=== PATIENT | female | born 1940 | race Caucasian/White ===

== ENCOUNTER 2023-01-14 11:32 | Emergency (ER) | payer MEDICARE, OTHER, SELFPAY ==
[2023-01-14] VITALS (20 sets, daily range): BP systolic 140–159; BP diastolic 58–75; PULSE 66–85; RESP 14–32; TEMP 36.8; O2SAT 91–97; BMI 27.0
--- NOTE | 2023-01-14 11:44 | ED_ITS ---
HPI - General Adult General Chief complaint: Dizziness Stated complaint: DIZZINESS Time Seen by Provider: 01/14/23 11:44 History of Present Illness HPI narrative: Patient just emergency department complaining of dizziness. Patient states that she feels like she is on a boat. She feels unsteady, dizzy. Does not feel like she is going to pass out. She states she has worsening symptoms when she moves or turns her head. She denies any headache. She has chronic sinusitis. She denies any fever, chills, cough, chest pain, shortness of breath. She denies any lower extremity edema, or cramping. The patient states she does have problems with vertigo for many years. This must be sure everything is okay. She denies any blurred vision, or diplopia. Denies any paresthesias, speech difficulties. Related Data Home Medications Medication Instructions Recorded Confirmed atorvastatin 80 mg tablet 80 mg PO DAILY 01/14/23 01/14/23 clopidogrel 75 mg tablet 75 mg PO DAILY 01/14/23 01/14/23 losartan 100 mg tablet 100 mg PO DAILY 01/14/23 01/14/23 metformin 1,000 mg tablet 1,000 mg PO BID 01/14/23 01/14/23 metoprolol tartrate 25 mg tablet 25 mg PO BID 01/14/23 01/14/23 nifedipine 60 mg tablet,extended 60 mg PO DAILY 01/14/23 01/14/23 release 24 hr oxybutynin chloride 5 mg tablet 5 mg PO BID 01/14/23 01/14/23 thyroid (pork) 60 mg tablet (BLADE BENDER FURNACE TENDER 60 mg PO BID 01/14/23 01/14/23 Thyroid) Previous Rx's Medication Instructions Recorded meclizine 50 mg tablet (Antivert) 50 mg PO TID PRN dizziness #20 tabs 01/14/23 Allergies Allergy/AdvReac Type Severity Reaction Status Date / Time No Known Drug Allergies Allergy Verified 01/14/23 11:45 Review of Systems ROS Status of ROS 10 or more systems reviewed and unremarkable except as noted in history and below Exam Narrative Exam Narrative: Nurses notes and vital signs reviewed and patient is not hypoxic. General: Nontoxic, Well-appearing and in no apparent distress. Skin: Warm, dry, no pallor noted. No Rash Head: Normocephalic, atraumatic. Neck: Supple, non-tender. Eye: Pupils are equal, round and EOMI. No scleral icterus. Ears, Nose, Mouth, and Throat: TM clear, no posterior oropharynx erythema or nasal mucosal hypertrophy, uvula is mid-line Oral mucosa is moist Cardiovascular: Regular Rate and Rhythm without murmur, gallop or rub. Respiratory: No accessory muscle use or respiratory distress. Lungs are clear to auscultation, no wheezing, rales or rhonchi Chest Wall: no tenderness Back: No midline thoracic or lumbar vertebral tenderness. No CVA tenderness Musculoskeletal: normal ROM, no calf or popliteal tenderness, no lower extremity edema/swelling GI: Abdomen is soft, non-distended. Normal bowel sounds. No tenderness to palpation. No rebound, guarding, or rigidity noted. Neurological: A&O x4. No cranial nerve dysfunction observed. No truncal ataxia. Moves all extremities. Sensation intact. Psychiatric: Cooperative and interactive. Normal mood and affect. Constitutional Vital Signs, click to edit/add: Last Vital Signs Temp 98.2 F 01/14/23 11:40 Pulse 74 01/14/23 14:10 Resp 32 H 01/14/23 14:10 BP 148/58 H 01/14/23 14:01 Pulse Ox 95 01/14/23 14:10 O2 Del Method Room Air 01/14/23 11:40 Course Vital Signs Vital signs: Vital Signs Temperature 98.2 F 01/14/23 11:40 Pulse Rate 85 01/14/23 11:40 Respiratory Rate 16 01/14/23 11:40 Blood Pressure 144/59 H 01/14/23 11:40 Pulse Oximetry 96 01/14/23 11:40 Oxygen Delivery Method Room Air 01/14/23 11:40 Temperature 98.2 F 01/14/23 11:40 Pulse Rate 74 01/14/23 14:10 Respiratory Rate 32 H 01/14/23 14:10 Blood Pressure 148/58 H 01/14/23 14:01 Pulse Oximetry 95 01/14/23 14:10 Oxygen Delivery Method Room Air 01/14/23 11:40 Medical Decision Making MDM Narrative Medical decision making narrative: Patient had IV fluids, and Antivert. This helped her symptoms. EKG Showed sinus rhythm at 71 bpm. There are no acute ischemic changes. lab And radiologic study results were discussed with patient. Did not show anything acute. Patient has chronic sinusitis, thyroid issues. 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 She will continue to try Antivert. Patient is nontoxic, stable for outpatient follow-up and treatment. At this time the patient is without objective evidence of an acute process requiring hospitalization or inpatient management. The patient has remained hemodynamically stable. No additional indication for emergent studies at this time. I answered all questions. Discussed discharge instructions including standard anticipatory guidance and what should prompt a return to the emergency department, including if they get worse are not getting better or develops any new or concerning symptoms. I've given them specific time frame in which to follow-up, and who to follow-up with. The patient demonstrates understanding. Patient is nontoxic and stable for discharge with outpatient follow-up. This note was created with the assistance of a speech recognition program. Although the intention is to generate documents that actually reflects the content of the visit, no guarantees can be provided that every mistake has been identified and corrected by editing. Lab Data Lab results reviewed: Yes I reviewed the patient's lab results Labs: Lab Results 01/14/23 Range/Units 12:15 WBC 7.8 (4.0-11.0) 10^3/uL RBC 4.03 L (4.20-5.40) 10^6/uL Hgb 13.0 (12.0-16.0) g/dL Hct 37.8 (36.0-48.0) % MCV 93.8 (81.0-99.0) fL MCH 32.3 (26.7-34.0) pg MCHC 34.4 (29.9-35.2) g/dL RDW 12.4 (11.0-15.0) % Plt Count 251 (150-450) 10^3/uL MPV 9.0 L (9.5-13.5) fL Neut % (Auto) 73.7 (43.0-75.0) % Lymph % (Auto) 16.3 L (20.5-60.0) % Larue % (Auto) 6.3 (1.7-12.0) % Eos % (Auto) 2.9 (0.9-7.0) % Baso % (Auto) 0.5 (0.2-2.0) % Neut # (Auto) 5.8 (1.4-6.5) 10^3/uL Lymph # (Auto) 1.3 (1.2-3.8) 10^3/uL Larue # (Auto) 0.5 (0.3-0.8) 10^3/uL Eos # (Auto) 0.2 (0.0-0.7) 10^3/uL Baso # (Auto) 0.0 (0.0-0.1) 10^3/uL Abs Immat Gran (auto) 0.02 (0.00-0.03) 10^3/uL Imm/Tot Granulo (auto) 0.3 (0.0-0.5) % Sodium 135 L (136-145) mmol/L Potassium 4.9 (3.5-5.1) mmol/L Chloride 102 (98-107) mmol/L Carbon Dioxide 26.5 (21.0-32.0) mmol/L Anion Gap 11.4 BUN 18.0 (7.0-18.0) mg/dL Creatinine 0.93 (0.55-1.02) mg/dL Est GFR ( Amer) >60 (>=60) Est GFR (Non-Af Amer) 58 L (>=60) BUN/Creatinine Ratio 19.4 Glucose 99 (74-106) mg/dL Calcium 9.0 (8.5-10.1) mg/dL Total Bilirubin 0.3 (0.2-1.0) mg/dL AST 11 L (15-37) U/L ALT 30 (14-59) U/L Alkaline Phosphatase 52 (46-116) U/L Troponin I High Sens 5.4 (4.0-51.3) pg/mL Total Protein 6.9 (6.4-8.2) g/dL Albumin 3.7 (3.4-5.0) g/dL Globulin 3.2 g/dL Albumin/Globulin Ratio 1.2 TSH 0.045 L (0.358-3.740) uIU/mL Discharge Plan Discharge Chief Complaint: Dizziness Clinical Impression: Dizziness Patient Disposition: Home, Self-Care Time of Disposition Decision: 13:42 Condition: Good Mode of Transportation: Private Vehicle Prescriptions / Home Meds: New meclizine [Antivert] 50 mg tablet 50 mg PO TID PRN (Reason: dizziness) Qty: 20 0RF No Action atorvastatin 80 mg tablet 80 mg PO DAILY clopidogrel 75 mg tablet 75 mg PO DAILY losartan 100 mg tablet 100 mg PO DAILY metformin 1,000 mg tablet 1,000 mg PO BID metoprolol tartrate 25 mg tablet 25 mg PO BID nifedipine 60 mg tablet extended release 24hr 60 mg PO DAILY oxybutynin chloride 5 mg tablet 5 mg PO BID thyroid (pork) [BLADE BENDER FURNACE TENDER Thyroid] 60 mg tablet 60 mg PO BID Instructions: Dizziness (ED) Stand Alone Forms: Portal Instructions Referrals: GUILLERMO RESENDIZ APRN [Physician] - 1 week Physician,Non-Staff, [Primary Care Provider] - 1 week Discharge Date/Time: 01/14/23 14:26
--- NOTE | 2023-01-14 11:58 | ECG_ITS ---
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
--- NOTE | 2023-01-14 11:58 | XR_ITS ---
[place] [id number] Patient Name: STEVEN BENTON MRN: [id number] date: 1940 Sex: F Assigned Patient Location: ER Current Patient Location: ED.MAIN Accession/Order Number: [id number] Exam Date: 01/14/2023 12:22 Report Date: 01/14/2023 12:39 At the request of: ОЛЕГ HUYNH Procedure: XR chest 1V EXAM: XR chest 1V HISTORY: Dizziness COMPARISON: 01/27/2022 TECHNIQUE: Frontal view of the chest FINDINGS: No focal consolidations or pleural effusions. Cardiomegaly. Thoracic spine spondylosis. Bony demineralization. Degenerative changes of the acromial clavicular joints bilaterally. XR/XR chest 1V IMPRESSION: No acute disease. Electronically authenticated by: SHERIDAN HONG Date: 01/14/2023 12:39
--- NOTE | 2023-01-14 11:59 | CT_ITS ---
[place] [id number] Patient Name: STEVEN BENTON MRN: [id number] date: 1940 Sex: F Assigned Patient Location: ER Current Patient Location: ER Accession/Order Number: [id number] Exam Date: 01/14/2023 12:24 Report Date: 01/14/2023 12:45 At the request of: ОЛЕГ HUYNH Procedure: CT head/brain wo con EXAMINATION: CT head/brain wo con, 01/14/2023 12:24 PM EDT HISTORY: Dizziness COMPARISON: None. TECHNIQUE: CT scan of the head was performed without IV contrast. CT dose reduction technique was used, including Automated Exposure Control. FINDINGS: BRAIN PARENCHYMA/CSF SPACES: Ventricles are normal in size for age. There is no hemorrhage, mass effect or midline shift. There are no other significant findings. PARANASAL SINUSES: Mild right maxillary sinus mucosal thickening. SKULL BASE AND CALVARIUM: Normal. EXTRACRANIAL SOFT TISSUES: Normal. CT/CT head/brain wo con IMPRESSION: 1. No acute intracranial abnormality. 2. Mild right maxillary sinus disease. Electronically authenticated by: SHERIDAN HONG Date: 01/14/2023 12:45
[2023-01-14 12:21] LABS: Basophils Percent Auto 0.5 % (0.2-2.0); Eosinophils Absolute Auto 0.2 10^3/uL (0.0-0.7); Eosinophils Percent Auto 2.9 % (0.9-7.0); Hematocrit 37.8 % (36.0-48.0); Immature Granulocytes Abs Auto 0.02 10^3/uL (0.00-0.03); Immature Granulocytes Pct Auto 0.3 % (0.0-0.5); Lymphocytes Absolute Auto 1.3 10^3/uL (1.2-3.8); Lymphocytes Percent Auto 16.3 % (20.5-60.0); Mean Corpuscular HGB Conc 34.4 g/dL (29.9-35.2); Mean Corpuscular Hemoglobin 32.3 pg (26.7-34.0); Mean Corpuscular Volume 93.8 fL (81.0-99.0); Monocytes Absolute Auto 0.5 10^3/uL (0.3-0.8); Monocytes Percent Auto 6.3 % (1.7-12.0); Neutrophils Absolute Auto 5.8 10^3/uL (1.4-6.5); Neutrophils Percent Auto 73.7 % (43.0-75.0); Platelet Count 251 10^3/uL (150-450); Red Blood Count 4.03 10^6/uL (4.20-5.40); Red Cell Distribution Width 12.4 % (11.0-15.0); White Blood Count 7.8 10^3/uL (4.0-11.0)
[2023-01-14] MEDS: MECLIZINE HCL 12.5 MG TABLET 25 MG PO (12:21)
[2023-01-14 12:46] LABS: Alanine Aminotransferase 30 U/L (14-59); Albumin Globulin Ratio 1.2; Albumin Level 3.7 g/dL (3.4-5.0); Alkaline Phosphatase 52 U/L (46-116); Anion Gap 11.4; Aspartate Amino Transferase 11 U/L (15-37); BUN Creatinine Ratio 19.4; Bilirubin Total 0.3 mg/dL (0.2-1.0); Carbon Dioxide 26.5 mmol/L (21.0-32.0); Chloride 102 mmol/L (98-107); Estimated GFR (African America >60 (>=60); Estimated GFR (Non-African Ame 58 (>=60); Globulin 3.2 g/dL; Glucose 99 mg/dL (74-106); Potassium 4.9 mmol/L (3.5-5.1); Sodium 135 mmol/L (136-145); Thyroid Stimulating Hormone 0.045 uIU/mL (0.358-3.740); Total Protein 6.9 g/dL (6.4-8.2); Troponin I High Sensitivity 5.4 pg/mL (4.0-51.3)
--- NOTE | 2023-01-14 15:36 | PC.NURSE ---
01/14/23 1536 pt called [facility] [place] cannot take otc medication due to histamine reaction. dr morales request vo to call in scopalamine patch 1mg behind ear for 3 days, as needed times 5 patches. called to pharmacy as requested. Nohemi Mendes RN
== END 2023-01-14 14:26 | disposition home or self-care (01) ==
PROVIDERS: Emergency Provider Emergency Medicine
DX: R42 Dizziness and giddiness (principal); J32.9 Chronic sinusitis, unspecified; Z79.899 Other long term (current) drug therapy; Z79.84 Long term (current) use of oral hypoglycemic drugs
CPT/HCPCS: 36415; 70450; 71045; 80053; 81003; 84443; 84484; 85025; 93005; 99285

== ENCOUNTER 2023-03-23 08:10 | Outpatient (OUT) | payer MEDICARE, OTHER, SELFPAY ==
[2023-03-23 09:39] LABS: Anion Gap 11.7; Carbon Dioxide 24.8 mmol/L (21.0-32.0); Chloride 97 mmol/L (98-107); Potassium 4.5 mmol/L (3.5-5.1); Sodium 129 mmol/L (136-145); Thyroid Stimulating Hormone 5.758 uIU/mL (0.358-3.740)
[2023-03-23 09:41] LABS: Free T4 0.43 ng/dL (0.76-1.46)
== END 2023-03-23 08:11 | disposition home or self-care (01) ==
LOC: LAB 08:14
PROVIDERS: PCP Family Medicine; Visit Provider Family Medicine
DX: E87.1 Hypo-osmolality and hyponatremia (principal); R53.82 Chronic fatigue, unspecified; E07.81 Sick-euthyroid syndrome
CPT/HCPCS: 36415; 80051; 82533; 84439; 84443

== ENCOUNTER 2023-03-30 07:56 | Outpatient (OUT) | payer MEDICARE, OTHER, SELFPAY | END 2023-03-30 07:57 | disposition home or self-care (01) | LOC: LAB 07:57 | PROVIDERS: PCP Family Medicine; Visit Provider Family Medicine | DX: R79.89 Other specified abnormal findings of blood chemistry (principal) | CPT/HCPCS: 36415; 82533 ==

== ENCOUNTER 2023-05-02 13:28 | Outpatient (OUT) | payer MEDICARE, OTHER, SELFPAY ==
[2023-05-02 15:13] LABS: Free T4 0.58 ng/dL (0.76-1.46)
[2023-05-02 15:21] LABS: Anion Gap 13.5; Carbon Dioxide 28.9 mmol/L (21.0-32.0); Chloride 94 mmol/L (98-107); Potassium 4.4 mmol/L (3.5-5.1); Sodium 132 mmol/L (136-145)
== END 2023-05-02 13:29 | disposition home or self-care (01) ==
LOC: LAB 13:33
PROVIDERS: PCP Family Medicine; Visit Provider Family Medicine
DX: E07.81 Sick-euthyroid syndrome (principal); R53.82 Chronic fatigue, unspecified; E87.1 Hypo-osmolality and hyponatremia
CPT/HCPCS: 36415; 80051; 84439; 84443

== ENCOUNTER 2023-05-31 14:06 | Outpatient (OUT) | payer MEDICARE, OTHER, SELFPAY ==
[2023-05-31 15:42] LABS: Thyroid Stimulating Hormone 10.064 uIU/mL (0.358-3.740)
== END 2023-05-31 14:07 | disposition home or self-care (01) ==
LOC: LAB 14:08
PROVIDERS: PCP Family Medicine; Visit Provider Family Medicine
DX: R53.82 Chronic fatigue, unspecified (principal); E66.9 Obesity, unspecified; E03.9 Hypothyroidism, unspecified
CPT/HCPCS: 36415; 84443

== ENCOUNTER 2023-06-27 10:42 | Outpatient (OUT) | payer MEDICARE, OTHER, SELFPAY ==
--- OUTSIDE RECORDS SUMMARY | 2023-06-20 12:13 | XMS_ITS | CCD ---
Author Name Unknown Address [facility] [facility] [address] [place] [address] Organization [facility] Care Team Providers Care Manager Shift Name Role Phone Eva Panda Unavailable MD Priyanka Puentes Primary Care Provider [phone] MD Justa Westfall Admit Provider MD Wiley Beal Attending Provider DEONTE Monzon Other Provider Unavailable DO Isaiah Cordova Other Provider [phone] MD Vik Segura Other Provider MD Moshe Hernandez Other Provider MD Yassine Dougherty Other Provider MD Anatoly Massey Other Provider FRANCOIS Mercado Other Provider MD Almita Asif Other Provider MD Dora Levine Other Provider MD Lydia Kern Other Provider MD Diony Hooks Attending Provider Priyanka Puentes Unavailable Unavailable Unavailable DR ANUM WOODY Admitting Unavailable DHAVAL ., DR MATHEW Consulting Unavailable DR ANUM WOODY Attending Unavailable HEMEBUD ., DR MATHEW Primary Care Unavailable HEMEYER ., DR MATHEW Admitting Unavailable HEMEYER ., DR MATHEW Attending Unavailable HEMEYER ., DR MATHEW Consulting Unavailable HEMEBUD ., DR MATHEW Primary Care Unavailable HEMEYER ., DR MATHEW Primary Care Unavailable PRANAY, KHANH Consulting Unavailable PRANAY, KHANH Admitting Unavailable PRANAY, KHANH Attending Unavailable HEMEYER ., DR MATHEW Primary Care Unavailable PRANAY, KHANH Attending Unavailable PRANAY, KHANH Consulting Unavailable PRANAY, KHANH Admitting Unavailable HEMEYER ., DR MAHTEW Primary Care Unavailable PRANAY, KHANH Consulting Unavailable PRANAY, KHANH Admitting Unavailable PRANAY, KHANH Attending Unavailable YAREID ., BRITTNI Consulting Unavailable HEMEYER ., DR MATHEW Primary Care Unavailable AMINA ., ОЛЕГ Admitting Unavailable AMINA ., ОЛЕГ Attending Unavailable MARILYN, NICOLE Consulting Unavailable HUNG, DR RAQUEL Reese Consulting Unavailable HOY ., DR RANDALL Admitting Unavailable HEMEYER ., DR MATHEW Primary Care Unavailable HOY ., DR RANDALL Attending Unavailable HOY ., DR RANDALL Consulting Unavailable JONA ORLANDO Consulting Unavailable HEMEYER ., DR MATHEW Admitting Unavailable HEMEYER ., DR MATHEW Attending Unavailable HEMEYER ., DR MATHEW Consulting Unavailable DIANAYER ., DR MATHEW Primary Care Unavailable MD Priyanka uPentes Primary Care Provider [phone] MD Monique Tierney Emergency Provider MD Jemal Jones Admit Provider MD Jemal Jones Attending Provider [phone] MD Chuck Chacon Attending Provider [phone] SHANTEL Dhillon Emergency Provider MD Sima Hdz Admit Provider MD Sima Hdz Attending Provider [phone] [facility] Rufus Cordon Attending Provider [phone] Dr. Priyanka Puentes Primary Care Unava ilable Yassine Dougherty Attending Unavailable Hung, Ms. Jason Sophie Batista Referring Saravai Dr. Priyanka Ralph Primary Care Unava ilable Yassine Dougherty Referring Unavailable Yassine Dougherty Attending Unavailable Dhaval, Dr. Priyanka Ramey Primary Care Unava ilable Persaud, Ms. Khanh Batista Attending Dr. Priyanka Conway Primary Care Lilliana Persaud, MsJanay Batista Referring Priyanka Conway Primary Care Unavailable Chuck Chacon Attending Jemal Anthony Admitting Unavailable Sima Hdz Admitting Unavailable Priyanka Puentes Primary Care Unavailable Rufus Ricks Attending Unavailable PRIYANKA PUENTES Attending Unavailable Allergies Allergy Classification Reported Allergen(s) Allergy Type Date of Onset Reaction(s) Facility (1 source) diphenhydrAMINE Drug Allergy anaphylaxis eSnips Other (5 sources) Ticagrelor; Translations: [Brilinta TABS] Drug Allergy Fatigue [facility] 600 DO Work Phone: (3 sources) Codeine Drug Allergy 03-12-20 23 [facility] (1 source) Penicillin Drug Allergy 01-19-20 22 [facility] (1 source) Ticagrelor Drug Allergy 01-25-20 22 [facility] (1 source) Antihistamines - Ethanolamine Drug allergy (disorder) 01-27-20 22 [facility] (2 sources) Antihistamines Allergy to substance 03-12-[address] [facility] Medications Current Medications Medication Drug Class(es) Dates Sig (Normalized) Sig (Original) amLODIPine 5 mg oral tablet (1 source) Dihydropyridine Calcium Channel Sarbjit Start: 03-14-2023 take 5 mg by mouth once daily Amlodipine Active 5 MG PO Daily March 14, 2023 12:00am aspirin 81 mg chewable tablet (14 sources) Platelet Aggregation Inhibitor, Nonsteroidal Anti-inflammatory Drug Start: 01-21-2022 take 1 tablet by mouth once daily Aspirin (Children's Aspirin) 81 mg Tablet,Chewable Active 81 MG PO Daily January 21, 2022 12:00am Aspirin EC 81 MG TBEC TAKE 1 TABLET DAILY. Quantity: 90 Refills: 3 Ordered: 24-Aug-2022 Yassine Dougherty MD Active fill when needed atorvastatin 80 mg oral tablet (14 sources) HMG-CoA Reductase Inhibitor Start: 01-21-2022 take 80 mg by mouth once daily in the evening Atorvastatin Active 80 MG PO Every evening January 21, 2022 12:00am ciprofloxacin 0.003 mg/mg ophthalmic ointment (1 source) Quinolone Antimicrobial Start: 01-01-2022 Ciloxan 0.3 % 1 applicatiion right lower eyelid Twice a day for 7 days Dec, Active clopidogrel 75 mg oral tablet (11 sources) P2Y12 Platelet Inhibitor Start: 03-05-2023 take 75 mg by mouth once daily Clopidogrel Active 75 MG PO Daily March 05, 2023 12:00am Start: 02-15-2022 take 1 tablet by angel once daily Clopidogrel Bisulfate 75 MG Oral Tablet TAKE 1 TABLET BY MOUTH DAILY Quantity: 90 Refills: 3 Ordered: 24-Aug-2022 Akin CHAVEZ, Yassine Start : 15-Feb-2022 Active Start: 02-15-2022 take 4 tablets by mo uth once daily Clopidogrel Bisulfate 75 MG Oral Tablet Take 4 tablets (300mg) on day #1 then take one tablet daily Quantity: 30 Refills: 11 Ordered: 15-Feb-2022 Lester Persaud BILLPOSTING SUPERVISOR-HAND THERAPISTKhanh Start : 15-Feb-2022 Active Lisinopril (1 source) Angiotensin Converting Enzyme Inhibitor Lisinopril Active magnesium oxide 400 mg oral tablet (3 sources) Start: 03-07-20 take 400 mg by mouth once daily Magnesium Oxide Active 400 MG PO Daily March 07, 2023 12:00am metFORMIN hydrochloride 1000 mg oral tablet (14 sources) Biguanide Start: 01-19-20 22 take 1000 mg by mouth before breakfast Metformin Active 1000 MG PO Before breakfast and supper January 18, 2022 12:00am Metformin ER & Diagnostic Test (1 source) Metformin ER & Diagnostic Test Active metoprolol tartrate 25 mg oral tablet (15 sources) beta-Adrenergic Sarbjit Start: 03-14-20 take 12.5 mg by mouth twice daily Metoprolol Tartrate Active 12.5 MG PO Twice daily March 14, 2023 12:00am Start: 01-21-2022 End: 03-14-2023 take 25 mg by mouth twice daily Metoprolol Tartrate Discontinued 25 MG PO Twice daily January 21, 2022 12:00am March 14, 2023 10:47am nitroglycerin 0.4 mg sublingual tablet (14 sources) Nitrate Vasodilator Start: 01-21-2022 Nitroglycerin Active 0.4 MG SUBLINGUAL Q5M January 21, 2022 12:00am oxybutynin chloride 5 mg oral tablet (20 sources) Cholinergic Muscarinic Antagonist Start: 01-18-2022 take 5 mg by mouth twice daily Oxybutynin Chloride Active 5 MG PO Twice daily January 18, 2022 12:00am Start: 11-11-2019 End: 01-18-2022 take 10 mg by mouth before mealtime Oxybutynin Chloride Discontinued 10 MG PO Before meals November 11, 2019 12:00am January 18, 2022 10:08pm take 1 tablet by angel th twice daily oxyBUTYnin Chloride ER 5 MG Oral Tablet Extended Release 24 Hour Take 1 tablet twice daily Quantity: 0 Refills: 0 Ordered: 15-Feb-2022 DO Active Oxybutynin Activ e Thyroid (Pork) (Upsetter Setter Up Thyroid) 60 mg tablet (4 sources) Start: 01-18-2022 take 1 tablet by mouth twice daily Thyroid (Pork) (Upsetter Setter Up Thyroid) 60 mg tablet Active 60 MG PO Twice daily January 18, 2022 12:00am thyroid (care home) 60 mg oral tablet (10 sources) Start: 01-18-2022 take 1 tablet by mouth twice daily Thyroid (Pork) (Upsetter Setter Up Thyroid) 60 mg tablet Active 60 MG PO Twice daily January 18, 2022 12:00am take 1 tablet by angel th once daily before breakfast FORGE SHOP MACHINE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 60 MG Oral Tablet TAKE 1 TABL ET BY MOUTH EVERY MORNING BEFORE BREAKFAST ON EMPTY STOMACH Quantity: 0 Refills: 0 Ordered: 15-Feb-2022 DO Active valACYclovir 1000 mg oral tablet (1 source) Herpesvirus Nucleoside Analog DNA Polymerase Inhibitor, Herpes Simplex Virus Nucleoside Analog DNA Polymerase Inhibitor, Herpes Zoster Virus Nucleoside Analog DNA Polymerase Inhibitor Start: 01-01-2022 take 1 tablet by mouth every eight hours valACYclovir HCl 1 GM 1 tablet Orally three times a day for 7 days Dec, Active Completed/Discontinued Medications Medication Drug Class(es) Dates Sig (Normalized) Sig (Original) [id number] actuat albuterol 0.09 mg/actuat metered dose inhaler (5 sources) beta2-Adrenergic Agonist Ventolin HFA 108 (90 Base) MCG/ACT Inhalation Aerosol Solution USE DIRECTED Quantity: 0 Refills: 0 Ordered: 17-Mar-2022 DO Active busPIRone hydrochloride 5 mg oral tablet (2 sources) busPIRone HCl - 5 MG Oral Tablet take one-half to 2 tabs as needed Quantity: 0 Refills: 0 Ordered: 16-Feb-2023 DO Active clindamycin 300 mg oral capsule (7 sources) Lincosamide Antibacterial Start: 11-11-2019 End: 01-18-2022 Clindamycin Hcl Discontinued November 11, 2019 12:00am January 18, 2022 10:06pm famotidine 20 mg oral tablet (7 sources) Histamine-2 Receptor Antagonist Start: 01-18-2022 End: 02-03-2022 take 20 mg by mouth once daily Famotidine Discontinued 20 MG PO Daily January 18, 2022 12:00am February 03, 2022 7:58am liothyronine sodium 0.005 mg oral tablet (7 sources) l-Triiodothyronine Start: 11-11-2019 End: 01-18-2022 Liothyronine Discontinued TABLET November 11, 2019 12:00am January 18, 2022 10:08pm losartan potassium 50 mg oral tablet (14 sources) Angiotensin 2 Receptor Sarbjit Start: 03-02-2023 take 1 tablet by mouth once daily Losartan Potassium 50 MG Oral Tablet TAKE 1 TABLET DAILY. Quantity: 90 Refills: 3 Ordered: 02-Mar-2023 Yassine Dougherty MD Start : 02-Mar-2023 Active new mg Start: 01-18-2022 End: 03-07-2023 take 0.5 dose by mouth once daily Losartan Discontinued 50 MG PO Daily January 18, 2022 12:00am March 07, 2023 9:21am RECENT CHANGE TO 1/2 DOSE PER CARDIOLOGY Start: 01-18-2022 take 100 mg by mouth once daily Losartan Active 100 MG PO Daily January 18, 2022 12:00am NIFEdipine 60 mg osmotic 24 hr extended release oral tablet (14 sources) Dihydropyridine Calcium Channel Sarbjit Start: 01-21-2022 End: 03-07-2023 take 60 mg by mouth once daily Nifedipine Discontinued 60 MG PO Daily January 21, 2022 12:00am March 07, 2023 9:21am take 1 tablet by mouth once hattie y NIFEdipine ER 60 MG Oral Tablet Extended Release 24 Hour TAKE 1 TABLET DAILY DIRECTED. Quantity: 90 Refills: 3 Ordered: 16-Feb-2023 Yassine Dougherty MD Active olmesartan medoxomil 40 mg oral tablet (7 sources) Angiotensin 2 Receptor Sarbjit Start: 11-11-2019 End: 01-18-2022 Olmesartan Discontinued TABLET November 11, 2019 12:00am January 18, 2022 10:08pm 72 hr scopolamine 0.0139 mg/hr transdermal system (2 sources) Anticholinergic Scopolamine 1 MG/3DAYS Transdermal Patch 72 Hour APPLY 1 PATCH EVERY 3 DAYS Quantity: 0 Refills: 0 Ordered: 16-Feb-2023 DO Active spironolactone 25 mg oral tablet (16 sources) Aldosterone Antagonist Start: 03-05-2023 End: 03-07-2023 take 25 mg by mouth once daily Spironolactone Discontinued 25 MG PO Daily March 05, 2023 12:00am March 07, 2023 9:21am Start: 01-21-2022 End: 02-03-2022 take 25 mg by mouth once daily Spironolactone Discontinued 25 MG PO Daily 30 30 January 21, 2022 12:00am February 03, 2022 7:59am sucralfate 1000 mg oral tablet (7 sources) Aluminum Complex Start: 01-18-2022 End: 03-05-2023 take 1 g by mouth four times daily Sucralfate Discontinued 1 GM PO Four times daily January 18, 2022 12:00am March 05, 2023 6:35pm ticagrelor 90 mg oral tablet (7 sources) Start: 01-21-2022 End: 03-05-2023 take 1 tablet by mouth twice daily Ticagrelor (Brilinta) 90 mg Tablet Discontinued 90 MG PO Twice daily 180 90 January 21, 2022 12:00am March 05, 2023 6:35pm Problems Active Problems Problem Classification Problem Date Documented Da te Episodic/Chronic Acute myocardial infarction (11 sources) Myocardial infarction; Translations: [Non-ST elevation (NSTEMI) myocardial infarction] Onset: 01-20-2022 01-18-2022 Chronic Chronic kidney disease (1 source) Chronic kidney disease, stage 2 (mild); Translations: [CHRONIC KIDNEY DISEASE STAGE 2 MILD] Onset: 08-16-2022 Chronic Conditions associated with dizziness or vertigo (9 sources) Dizziness; Translations: [Dizziness and giddiness] Onset: 03-05-2023 03-05-2023 Episodic Coronary atherosclerosis and other heart disease (20 sources) Coronary arteriosclerosis; Translations: [Atherosclerotic heart disease of [place] coronary artery without angina pectoris] Onset: 06-14-2022 02-03-2022 Chronic Coronary atherosclerosis and other heart disease (7 sources) Patient post percutaneous transluminal coronary angioplasty; Translations: [Percutaneous transluminal coronary angioplasty status] Episodic Diabetes mellitus without complication (1 source) Type 2 diabetes mellitus without complications; Translations: [TYPE 2 DM WITHOUT COMPLICATIONS] Onset: 01-20-2022 Chronic Diabetes mellitus without complication (11 sources) Prediabetes; Translations: [Prediabetes] Onset: 08-16-2022 01-18-2022 Episodic Diseases of white blood cells (1 source) Elevated white blood cell count, unspecified; Translations: [ELEVATED WHITE BLOOD CELL COUNT UNS] Onset: 02-02-2022 Chronic Disorders of lipid metabolism (8 sources) Mixed hyperlipidemia; Translations: [Mixed hyperlipidemia] Onset: 08-16-2022 Chronic Essential hypertension (18 sources) Hypertensive disorder; Translations: [Essential (primary) hypertension] Onset: 01-20-2022 11-11-2019 Chronic Fluid and electrolyte disorders (10 sources) Hypo-osmolality and hyponatremia; Translations: [Acute hyponatremia] Onset: 02-02-2022 03-05-2023 Episodic Hypertension with complications and secondary hypertension (9 sources) Hypertensive chronic kidney disease with stage 1 through stage 4 chronic kidney disease, or unspecified chronic kidney disease; Translations: [Hypertensive urgency ] Onset: 08-15-2022 Chronic Malaise and fatigue (5 sources) Chronic fatigue, unspecified; Translations: [CHRONIC FATIGUE UNSPECIFIED] Onset: 04-12-2022 Chronic Other circulatory disease (3 sources) Orthostatic hypotension; Translations: [Orthostatic hypotension] 03-07-2023 Episodic Other circulatory disease (1 source) Orthostatic hypotension; Translations: [Orthostatic hypotension] Onset: 03-05-2023 Episodic Other lower respiratory disease (7 sources) Dyspnea; Translations: [Other respiratory abnormalities] Episodic Other nutritional; endocrine; and metabolic disorders (4 sources) Obesity; Translations: [Obesity, unspecified] Chronic Other nutritional; endocrine; and metabolic disorders (3 sources) Overweight in adulthood with body mass index of 25 or more but less than 30; Translations: [Overweight] Episodic Other screening for suspected conditions (not mental disorders or infectious disease) (5 sources) Echocardiogram abnormal; Translations: [Nonspecific (abnormal) findings on radiological and other examination of other intrathoracic organs] Onset: 07-20-2022 Episodic Peripheral and visceral atherosclerosis (18 sources) Peripheral vascular disease; Translations: [Peripheral vascular disease, unspecified] Onset: 01-20-2022 01-19-2022 Chronic Screening and history of mental health and substance abuse codes (8 sources) Ex-smoker; Translations: [Personal history of tobacco use] Onset: 02-02-2022 Episodic Comment on above: nicotine lozenges; Syncope (12 sources) Near syncope; Translations: [Syncope and collapse] Onset: 02-02-2022 11-11-2019 Episodic Thyroid disorders (13 sources) Hypothyroidism; Translations: [Hypothyroidism, unspecified] Onset: 03-05-2023 01-18-2022 Chronic Thyroid disorders (5 sources) Sick-euthyroid syndrome; Translations: [SICK-EUTHYROID SYNDROME] Onset: 04-15-2022 Episodic Unclassified (1 source) CONTACT W/AND (SUSP) EXPOS COVID-19; Translations: [CONTACT W/AND (SUSP) EXPOS COVID-19] Onset: 02-02-2022 Past or Other Problems Problem Classification Problem Date Documented Da te Episodic/Chronic Noninfectious gastroenteritis (1 source) Noninfective gastroenteritis and colitis, unspecified; Translations: [NONINFECTIVE GE AND COLITIS UNS] Onset: 02-02-2022 Episodic Nonspecific chest pain (3 sources) Chest pain, unspecified; Translations: [CHEST PAIN UNSPECIFIED] Onset: 01-18-2022 Episodic Other aftercare (1 source) Other fpc (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; Translations: [OTH DRESSAGE JUDGE CURRENT DRUG THERAPY] Onset: 02-02-2022 Episodic Other aftercare (1 source) long-term (current) use of oral hypoglycemic drugs; Translations: [DRESSAGE JUDGE USE ORAL HYPOGLYCEMIC DX] Onset: 02-02-2022 Episodic Other aftercare (1 source) long-term (current) use of aspirin; Translations: [DRESSAGE JUDGE CURRENT USE OF ASPIRIN] Onset: 01-20-2022 Episodic Other circulatory disease (1 source) Hypotension, unspecified; Translations: [HYPOTENSION UNSPECIFIED] Onset: 02-02-2022 Episodic Other gastrointestinal disorders (3 sources) Diarrhea, unspecified; Translations: [DIARRHEA UNSPECIFIED] Onset: 01-27-2022 Episodic Other hematologic conditions (1 source) Other specified abnormalities of plasma proteins; Translations: [OTH SPEC ABNORM PLASMA PROTEINS] Onset: 02-02-2022 Episodic Other lower respiratory disease (1 source) Shortness of breath; Translations: [SHORTNESS OF BREATH] Onset: 02-02-2022 Episodic Residual codes; unclassified (1 source) Other specified postprocedural states; Translations: [OTH SPECIFIED POSTPROCEDURAL STATES] Onset: 02-02-2022 Episodic Viral infection (1 source) Zoster without complications Onset: 01-01-2022 Resolved: 01-01-2022 Episodic Results Test Name Value Interpretation Reference Range Facility Basic Metabolic Panelon 10-0 Anion gap [Moles/Vol] 9.8 mmol/L Normal 6.0-15.0 [facility] Comment on above: Performed By: #### B FORGE SHOP MACHINE REPAIRER, BMP, PT, PTT, HS TROP, CBC, TSH3, CK #### [facility] [address] Calcium [Mass/Vol] 8.3 mg/dL Low 8.6-10.3 [facility] Comment on above: Performed By: #### B FORGE SHOP MACHINE REPAIRER, BMP, PT, PTT, HS TROP, CBC, TSH3, CK #### [facility] [address] [place] [id number] [facility] Chloride [Moles/Vol] 101 mmol/L Normal 98-107 [facility] Comment on above: Performed By: #### B FORGE SHOP MACHINE REPAIRER, BMP, PT, PTT, HS TROP, CBC, TSH3, CK #### [facility] [address] CO2 [Moles/Vol] 23.6 mmol/L Normal 21.0-31.0 [facility] Comment on above: Performed By: #### B FORGE SHOP MACHINE REPAIRER, BMP, PT, PTT, HS TROP, CBC, TSH3, CK #### [address] Creatinine [Mass/Vol] 0.70 mg/dL Normal 0.60-1.20 [facility] Comment on above: Performed By: #### B FORGE SHOP MACHINE REPAIRER, BMP, PT, PTT, HS TROP, CBC, TSH3, CK #### [address] Creatinine Clr Calc Pharmacy 48.88 [facility] Comment on above: Performed By: #### B FORGE SHOP MACHINE REPAIRER, BMP, PT, PTT, HS TROP, CBC, TSH3, CK #### [address] GFR/1.73 sq M.predicted MDRD (S/P/Bld) [Vol rate/Area] mL/min/{1.73_m2} [facility] Comment on above: Performed By: #### B FORGE SHOP MACHINE REPAIRER, BMP, PT, PTT, HS TROP, CBC, TSH3, CK #### [address] Glucose [Mass/Vol] 84 mg/dL Normal 70-100 [facility] Comment on above: Result Comment: [facility] Glucose Reference Range is dependent on time and content of last meal. Glucose of more than 200 mg/dL in a nonstressed, ambulatory subject supports the diagnosis of Diabetes Mellitus. ADA recommended reference range Performed By: #### B FORGE SHOP MACHINE REPAIRER, BMP, PT, PTT, HS TROP, CBC, TSH3, CK #### [address] Potassium [Moles/Vol] 4.4 mmol/L Normal 3.5-5.1 [facility] Comment on above: Performed By: #### B FORGE SHOP MACHINE REPAIRER, BMP, PT, PTT, HS TROP, CBC, TSH3, CK #### [address] Sodium [Moles/Vol] 130 mmol/L Low 136-145 [facility] Comment on above: Performed By: #### B FORGE SHOP MACHINE REPAIRER, BMP, PT, PTT, HS TROP, CBC, TSH3, CK #### [facility] [address] [place] [address] [place] Urea nitrogen [Mass/Vol] 8 mg/dL Normal 7-25 [facility] Comment on above: Performed By: #### B FORGE SHOP MACHINE REPAIRER, BMP, PT, PTT, HS TROP, CBC, TSH3, CK #### [facility] [address] [place] [address] [place] Calcium [Mass/volume] in Ser um or PlasmaOrdered By: Rufus Ricks on 03-14-2023 Calcium [Mass/Vol] 8.3 mg/dL 8.6-10.3 [facility] Carbon dioxide, total [Moles /volume] in Serum or PlasmaOrdered By: Rufus Ricks on 03-14-2023 CO2 [Moles/Vol] 23.6 mmol/L 21.0-31.0 [facility] Chloride [Moles/volume] in S yamilex or PlasmaOrdered By: Rufus Ricks on 03-14-2023 Chloride [Moles/Vol] 101 mmol/L 98-107 [facility] Creatinine [Mass/volume] in Serum or PlasmaOrdered By: Rufus Ricks on 03-14-2023 Creatinine [Mass/Vol] 0.70 mg/dL 0.60-1.20 [facility] Free T4 (Free Thyroxine)on Free T4 [Mass/Vol] 0.72 ng/dL Normal 0.61-1.12 [facility] Comment on above: Performed By: #### B FORGE SHOP MACHINE REPAIRER, BMP, PT, PTT, HS TROP, CBC, TSH3, CK #### [facility] [address] [place] [address] [place] Glucose [Mass/volume] in Ser um or PlasmaOrdered By: Rufus Ricks on 03-14-2023 Glucose [Mass/Vol] 84 mg/dL 70-100 [facility] Comment on above: ADA recommended refe rence rangeRandom Glucose Reference Range is dependent on time and content of last meal. Glucose of more than 200 mg/dL in a nonstressed, ambulatory subject supports the diagnosis of Diabetes Mellitus. No Panel InformationOrdered By: Rufus Ricks on 03-14-2023 Estimated GFR (CKD-EPI) > 60.0 mL/Min [facility] Creatinine Clearance (Chem 48.88 [facility] Potassium [Moles/volume] in Serum or PlasmaOrdered By: [facility] on 03-14-2023 Potassium [Moles/Vol] 4.4 mmol/L 3.5-5.1 [facility] Serum or plasma anion gap de terminationOrdered By: [facility] on 03-14-2023 Anion gap [Moles/Vol] 9.8 mmol/L 6.0-15.0 [facility] Sodium [Moles/volume] in Ser um or PlasmaOrdered By: [facility] on 03-14-2023 Sodium [Moles/Vol] 130 mmol/L 136-145 [facility] Thyroid Stimulating Hormoneo n 03-14-2023 TSH Qn 0.04 m[IU]/L Low 0.45-5.33 [facility] Comment on above: Result Comment: PERF ORMED BY: [place] [address] PATHOLOGIST ROD DRAWER RAQUEL LOPEZ M.D. Performed By: #### B FORGE SHOP MACHINE REPAIRER, BMP, PT, PTT, HS TROP, CBC, TSH3, CK #### [address] Thyrotropin [Units/volume] i n Serum or PlasmaOrdered By: [facility] on 03-14-2023 TSH Qn 0.04 m[IU]/L 0.45-5.33 [facility] Thyroxine (T4) free [Mass/vo lume] in Serum or PlasmaOrdered By: [facility] on 03-14-2023 Free T4 [Mass/Vol] 0.72 ng/dL 0.61-1.12 [facility] Triiodothyronine (T3) Freeon 03-14-2023 Triiodothyronine (T3) Free 2.85 pg/mL Normal 2.50-3.90 [facility] Comment on above: Result Comment: PERF ORMED BY: [place] [address] PATHOLOGIST ROD DRAWER RAQUEL LOPEZ M.D. Performed By: #### B FORGE SHOP MACHINE REPAIRER, BMP, PT, PTT, HS TROP, CBC, TSH3, CK #### [facility] [address] Triiodothyronine (T3) Free [ Mass/volume] in Serum or PlasmaOrdered By: Rufus ClemensRicks on 03-14-2023 Free T3 [Mass/Vol] 2.85 pg/mL 2.50-3.90 [facility] Urea nitrogen [Mass/volume] in Serum or PlasmaOrdered By: Rufus ClemensRicks on 03-14-2023 Urea nitrogen [Mass/Vol] 8 mg/dL 01-03 [facility] Basic Metabolic Panelon Anion gap [Moles/Vol] 13.4 mmol/L Normal 6.0-15.0 [facility] Comment on above: Performed By: #### B FORGE SHOP MACHINE REPAIRER, BMP, PT, PTT, HS TROP, CBC, TSH3, CK #### [facility] [address] Calcium [Mass/Vol] 9.1 mg/dL Normal 8.6-10.3 [facility] Comment on above: Performed By: #### B FORGE SHOP MACHINE REPAIRER, BMP, PT, PTT, HS TROP, CBC, TSH3, CK #### [facility] [address] [place] [address] [place] Chloride [Moles/Vol] 93 mmol/L Low 98-107 [facility] Comment on above: Performed By: #### B [employer] MACHINE REPAIRER, BMP, PT, PTT, HS TROP, CBC, TSH3, CK #### [facility] [address] [place] [address] [place] CO2 [Moles/Vol] 25.0 mmol/L Normal 21.0-31.0 [facility] Comment on above: Performed By: #### B [employer] MACHINE REPAIRER, BMP, PT, PTT, HS TROP, CBC, TSH3, CK #### [facility] [address] [place] [address] [place] Creatinine [Mass/Vol] 0.88 mg/dL Normal 0.60-1.20 [facility] Comment on above: Performed By: #### B [employer] MACHINE REPAIRER, BMP, PT, PTT, HS TROP, CBC, TSH3, CK #### [address] Creatinine Clr Calc Pharmacy 44.44 [facility] Comment on above: Result Comment: PERF ORMED BY: [place] [address] PATHOLOGIST ROD DRAWER RAQUEL LOPEZ M.D. Performed By: #### B [employer] MACHINE REPAIRER, BMP, PT, PTT, HS TROP, CBC, TSH3, CK #### [address] GFR/1.73 sq M.predicted MDRD (S/P/Bld) [Vol rate/Area] mL/min/{1.73_m2} [facility] Comment on above: Performed By: #### B [employer] MACHINE REPAIRER, BMP, PT, PTT, HS TROP, CBC, TSH3, CK #### [address] Glucose [Mass/Vol] 97 mg/dL Normal 70-100 [facility] Comment on above: Result Comment: [facility] Glucose Reference Range is dependent on time and content of last meal. Glucose of more than 200 mg/dL in a nonstressed, ambulatory subject supports the diagnosis of Diabetes Mellitus. ADA recommended reference range Performed By: #### B FORGE SHOP MACHINE REPAIRER, BMP, PT, PTT, HS TROP, CBC, TSH3, CK #### [address] Potassium [Moles/Vol] 4.4 mmol/L Normal 3.5-5.1 [facility] Comment on above: Performed By: #### B [employer] MACHINE REPAIRER, BMP, PT, PTT, HS TROP, CBC, TSH3, CK #### [facility] [address] Sodium [Moles/Vol] 127 mmol/L Low 136-145 [facility] Comment on above: Performed By: #### B [employer] MACHINE REPAIRER, BMP, PT, PTT, HS TROP, CBC, TSH3, CK #### [facility] [address] [place] [address] [place] Urea nitrogen [Mass/Vol] 9 mg/dL Normal 7-25 [facility] Comment on above: Performed By: #### B [employer] MACHINE REPAIRER, BMP, PT, PTT, HS TROP, CBC, TSH3, CK #### [facility] [address] [place] [id number] [facility] Activated partial thrombopla stin time (aPTT) in platelet poor plasma by coagulation aOrdered By: Hunter Dhillon on 03-12-2023 aPTT Coag (PPP) [Time] 26.1 s 25.1-36.5 [facility] Comment on above: A hematocrit value g reater than 55% may lead to inaccurate results in coagulation testing. Patients having hematocrit values >55% require a special collection tube for coagulation studies. Please contact the laboratory at [phone] for redraw instructions. Alanine aminotransferase [En zymatic activity/volume] in Serum or PlasmaOrdered By: Hunter Dhillon on 03-12-2023 ALT [Catalytic activity/Vol] 14 U/L 7-52 [facility] Albumin [Mass/volume] in Ser um or Plasma by Bromocresol green (BCG) dye binding methoOrdered By: Hunter Dhillon on 03-12-2023 Albumin BCG dye [Mass/Vol] 4.1 g/dL 3.5-5.7 [facility] Alkaline phosphatase [Enzyma tic activity/volume] in Serum or PlasmaOrdered By: Hunter Dhillon on 03-12-2023 ALP [Catalytic activity/Vol] 40 U/L 34-104 [facility] Aspartate aminotransferase [ Enzymatic activity/volume] in Serum or PlasmaOrdered By: Hunter Dhillon on 03-12-2023 AST [Catalytic activity/Vol] 15 U/L 13-39 [facility] Automated erythrocytes count in urine sediment (number/area)Ordered By: Hunter Dhillon on 03-12-2023 RBC Auto (Urine sed) [#/Area] None seen [HPF] 0-4 [facility] Automated leukocytes count i n urine sediment (number/area)Ordered By: Hunter Dhillon on 03-12-2023 WBC Auto (Urine sed) [#/Area] 5-9 [HPF] 0-4 [facility] B-Type Natriuretic Peptideon 03-12-2023 Natriuretic peptide B (Bld) [Mass/Vol] 83.0 pg/mL Normal 5-100 [facility] Comment on above: Result Comment: PERF ORMED BY: [place] [address] PATHOLOGIST ROD DRAWER RAQUEL LOPEZ M.D. Performed By: #### B [employer] MACHINE REPAIRER, BMP, PT, PTT, HS TROP, CBC, TSH3, CK #### [address] Basic Metabolic Panelon Anion gap [Moles/Vol] 13.3 mmol/L Normal 6.0-15.0 [facility] Comment on above: Performed By: #### B [employer] MACHINE REPAIRER, BMP, PT, PTT, HS TROP, CBC, TSH3, CK #### [address] Calcium [Mass/Vol] 9.2 mg/dL Normal 8.6-10.3 [facility] Comment on above: Performed By: #### B [employer] MACHINE REPAIRER, BMP, PT, PTT, HS TROP, CBC, TSH3, CK #### [address] Chloride [Moles/Vol] 98 mmol/L Normal 98-107 [facility] Comment on above: Performed By: #### B [employer] MACHINE REPAIRER, BMP, PT, PTT, HS TROP, CBC, TSH3, CK #### [address] CO2 [Moles/Vol] 21.2 mmol/L Normal 21.0-31.0 [facility] Comment on above: Performed By: #### B FOR[employer] SH[employer] MACHINE REPAIRER, BMP, PT, PTT, HS TROP, CBC, TSH3, CK #### [address] Creatinine [Mass/Vol] 0.92 mg/dL Normal 0.60-1.20 [facility] Comment on above: Performed By: #### B [employer] MACHINE REPAIRER, BMP, PT, PTT, HS TROP, CBC, TSH3, CK #### [facility] [address] Creatinine Clr Calc Pharmacy 41.99 [facility] Comment on above: Performed By: #### B [employer] MACHINE REPAIRER, BMP, PT, PTT, HS TROP, CBC, TSH3, CK #### [facility] [address] GFR/1.73 sq M.predicted MDRD (S/P/Bld) [Vol rate/Area] mL/min/{1.73_m2} [facility] Comment on above: Performed By: #### B [employer] MACHINE REPAIRER, BMP, PT, PTT, HS TROP, CBC, TSH3, CK #### [facility] [address] Glucose [Mass/Vol] 87 mg/dL Normal 70-100 [facility] Comment on above: Result Comment: [facility] Glucose Reference Range is dependent on time and content of last meal. Glucose of more than 200 mg/dL in a nonstressed, ambulatory subject supports the diagnosis of Diabetes Mellitus. ADA recommended reference range Performed By: #### B FOR[employer] SH[employer] MACHINE REPAIRER, BMP, PT, PTT, HS TROP, CBC, TSH3, CK #### [address] Potassium [Moles/Vol] 4.5 mmol/L Normal 3.5-5.1 [facility] Comment on above: Performed By: #### B FOR[employer] MACHINE REPAIRER, BMP, PT, PTT, HS TROP, CBC, TSH3, CK #### [facility] [address] Sodium [Moles/Vol] 128 mmol/L Low 136-145 [facility] Comment on above: Performed By: #### B FOR[employer] SH[employer] MACHINE REPAIRER, BMP, PT, PTT, HS TROP, CBC, TSH3, CK #### [address] Urea nitrogen [Mass/Vol] 11 mg/dL Normal 7-25 [facility] Comment on above: Performed By: #### B FOR[employer] SH[employer] MACHINE REPAIRER, BMP, PT, PTT, HS TROP, CBC, TSH3, CK #### [facility] [address] [place] [id number] [facility] Basophils Auto (Bld) [#/Vol] Ordered By: Hunter Dhillon on 03-12-2023 Basophils (Bld) [#/Vol] 0.0 10*3/uL 0.0-0.2 [facility] Basophils/100 WBC Auto (Bld) Ordered By: Hunter Dhillon on 03-12-2023 Basophils/100 WBC (Bld) 0.4 % . [facility] Bilirubin Auto test strip Ql (U)Ordered By: Hunter Dhillon on 03-12-2023 Bilirubin Ql (U) Negative Negative [facility] Bilirubin.direct [Mass/volum e] in Serum or PlasmaOrdered By: Hunter Dhillon on 03-12-2023 Bilirubin.direct [Mass/Vol] 0.10 mg/dL 0.03-0.18 [facility] Bilirubin.total [Mass/volume ] in Serum or PlasmaOrdered By: Hunter Dhillon on 03-12-2023 Bilirubin [Mass/Vol] 0.4 mg/dL 0.3-1.0 [facility] Calcium [Mass/volume] in Ser um or PlasmaOrdered By: Hunter Dhillon on 03-12-2023 Calcium [Mass/Vol] 9.2 mg/dL 8.6-10.3 [facility] Carbon dioxide, total [Moles /volume] in Serum or PlasmaOrdered By: Hunter Dhillon on 03-12-2023 CO2 [Moles/Vol] 21.2 mmol/L 21.0-31.0 [facility] Chloride [Moles/volume] in S yamilex or PlasmaOrdered By: Hunter Dhillon on 03-12-2023 Chloride [Moles/Vol] 98 mmol/L 98-107 [facility] Complete Blood Count Auto Di ffon 03-12-2023 Basophils (Bld) [#/Vol] 0.0 10*3/uL Normal 0.0-0.2 [facility] Comment on above: Result Comment: PERF ORMED BY: [facility] [address] [place] [address] PATHOLOGIST ROD DRAWER JIANLAN SUN M.D. Performed By: #### B FORGE SH[employer] MACHINE REPAIRER, BMP, PT, PTT, HS TROP, CBC, TSH3, CK #### [address] Basophils/100 WBC (Bld) 0.4 % Normal . [facility] Comment on above: Performed By: #### B FORGE SH[employer] MACHINE REPAIRER, BMP, PT, PTT, HS TROP, CBC, TSH3, CK #### [address] Eosinophils (Bld) [#/Vol] 0.2 10*3/uL Normal 0.0-0.45 [facility] Comment on above: Performed By: #### B FORGE SHOP MACHINE REPAIRER, BMP, PT, PTT, HS TROP, CBC, TSH3, CK #### [address] Eosinophils/100 WBC (Bld) 2.0 % Normal . [facility] Comment on above: Performed By: #### B FORGE SHOP MACHINE REPAIRER, BMP, PT, PTT, HS TROP, CBC, TSH3, CK #### [address] Erythrocyte distribution width (RBC) [Ratio] 12.6 % Normal 11.9-15.3 [facility] Comment on above: Performed By: #### B FORGE SHOP MACHINE REPAIRER, BMP, PT, PTT, HS TROP, CBC, TSH3, CK #### [address] Hematocrit (Bld) [Volume fraction] 35.5 % Normal 34.0-46.4 [facility] Comment on above: Performed By: #### B FORGE SHOP MACHINE REPAIRER, BMP, PT, PTT, HS TROP, CBC, TSH3, CK #### [address] Hemoglobin (Bld) [Mass/Vol] 12.4 g/dL Normal 11.8-15.4 [facility] Comment on above: Performed By: #### B FORGE SHOP MACHINE REPAIRER, BMP, PT, PTT, HS TROP, CBC, TSH3, CK #### [address] Lymphocytes (Bld) [#/Vol] 1.2 10*3/uL Normal 1.00-4.8 [facility] Comment on above: Performed By: #### B FORGE SHOP MACHINE REPAIRER, BMP, PT, PTT, HS TROP, CBC, TSH3, CK #### [address] Lymphocytes/100 WBC (Bld) 13.2 % Normal . [facility] Comment on above: Performed By: #### B FORGE SHOP MACHINE REPAIRER, BMP, PT, PTT, HS TROP, CBC, TSH3, CK #### [address] MCH (RBC) [Entitic mass] 31.9 pg Normal 24.7-34.3 [facility] Comment on above: Performed By: #### B FORGE SHOP MACHINE REPAIRER, BMP, PT, PTT, HS TROP, CBC, TSH3, CK #### [address] MCV (RBC) [Entitic vol] 91.8 fL Normal 80-100 [facility] Comment on above: Performed By: #### B FORGE SHOP MACHINE REPAIRER, BMP, PT, PTT, HS TROP, CBC, TSH3, CK #### [address] Mean Corpuscular HGB Conc 34.7 g/dL Normal 32.0-35.0 [facility] Comment on above: Performed By: #### B FORGE SHOP MACHINE REPAIRER, BMP, PT, PTT, HS TROP, CBC, TSH3, CK #### [address] Monocytes (Bld) [#/Vol] 0.5 10*3/uL Normal 0.0-0.8 [facility] Comment on above: Performed By: #### B FORGE SH[employer] MACHINE REPAIRER, BMP, PT, PTT, HS TROP, CBC, TSH3, CK #### [address] Monocytes/100 WBC (Bld) 17.50 % Normal 0.00-20.00 [facility] Comment on above: Performed By: #### B FORGE SHOP MACHINE REPAIRER, BMP, PT, PTT, HS TROP, CBC, TSH3, CK #### [facility] [address] Monocytes/100 WBC (Bld) 5.1 % Normal . [facility] Comment on above: Performed By: #### B FORGE SHOP MACHINE REPAIRER, BMP, PT, PTT, HS TROP, CBC, TSH3, CK #### [facility] [address] Neutrophils (Bld) [#/Vol] 7.0 10*3/uL Normal 1.8-7.7 [facility] Comment on above: Performed By: #### B FORGE SHOP MACHINE REPAIRER, BMP, PT, PTT, HS TROP, CBC, TSH3, CK #### [address] Neutrophils/100 WBC (Bld) 79.3 % Normal . [facility] Comment on above: Performed By: #### B FORGE SHOP MACHINE REPAIRER, BMP, PT, PTT, HS TROP, CBC, TSH3, CK #### [address] NRBC% 0.0 /100{WBC} Normal 0-0.5 [facility] Comment on above: Performed By: #### B FORGE SHOP MACHINE REPAIRER, BMP, PT, PTT, HS TROP, CBC, TSH3, CK #### [address] Platelet mean volume (Bld) [Entitic vol] 7.2 fL Normal 6.3-10.7 [facility] Comment on above: Performed By: #### B FORGE SHOP MACHINE REPAIRER, BMP, PT, PTT, HS TROP, CBC, TSH3, CK #### [address] Platelets (Bld) [#/Vol] 237 10*3/uL Normal 150-450 [facility] Comment on above: Performed By: #### B FORGE SHOP MACHINE REPAIRER, BMP, PT, PTT, HS TROP, CBC, TSH3, CK #### [address] RBC (Bld) [#/Vol] 3.87 10*6/uL Normal 3.60-5.00 [facility] Comment on above: Performed By: #### B FORGE SHOP MACHINE REPAIRER, BMP, PT, PTT, HS TROP, CBC, TSH3, CK #### [address] WBC (Bld) [#/Vol] 8.9 10*3/uL Normal 3.8-11.6 [facility] Comment on above: Performed By: #### B FORGE SHOP MACHINE REPAIRER, BMP, PT, PTT, HS TROP, CBC, TSH3, CK #### [address] Creatine Kinaseon 03-12-2023 CK [Catalytic activity/Vol] 20 U/L Low [facility] Comment on above: Performed By: #### B FORGE SHOP MACHINE REPAIRER, BMP, PT, PTT, HS TROP, CBC, TSH3, CK #### [address] Creatine kinase [Enzymatic a ctivity/volume] in Serum or PlasmaOrdered By: Hunter Dhillon on 03-12-2023 CK [Catalytic activity/Vol] 20 U/L [facility] Creatinine [Mass/volume] in Serum or PlasmaOrdered By: Hunter Dhillon on 03-12-2023 Creatinine [Mass/Vol] 0.92 mg/dL 0.60-1.20 [facility] Dipstick and Microscopicon 1 Appearance (U) Slightly Cloudy Critically abnormal Clear [facility] Comment on above: Order Comment: Name Collection Type:: Clean-Voided Midstream Performed By: #### A DDONUAPLUS #### [address] Bacteria,Urine 1+ High None Seen [facility] Comment on above: Order Comment: Name Collection Type:: Clean-Voided Midstream Result Comment: PERF ORMED BY: [place] [address] PATHOLOGIST ROD DRAWER RAQUEL LOPEZ M.D. Performed By: #### A DDONUAPLUS #### [address] Bilirubin,Urine Negative Normal Negative [facility] Comment on above: Order Comment: Name Collection Type:: Clean-Voided Midstream Performed By: #### A DDONUAPLUS #### [place] [address] [place] Color (U) Yellow Normal Yellow [facility] Comment on above: Order Comment: Name Collection Type:: Clean-Voided Midstream Performed By: #### A DDONUAPLUS #### [place] [address] [place] Glucose Ql (U) Normal Normal Normal [facility] Comment on above: Order Comment: Name Collection Type:: Clean-Voided Midstream Performed By: #### A DDONUAPLUS #### [address] Ketones Ql (U) Negative Normal Negative [facility] Comment on above: Order Comment: Name Collection Type:: Clean-Voided Midstream Performed By: #### A DDONUAPLUS #### [address] Leukocyte esterase Test strip Ql (U) 3+ High Negative [facility] Comment on above: Order Comment: Name Collection Type:: Clean-Voided Midstream Performed By: #### A DDONUAPLUS #### [place] [address] [place] Nitrite,Urine Negative Normal Negative [facility] Comment on above: Order Comment: Name Collection Type:: Clean-Voided Midstream Performed By: #### A DDONUAPLUS #### [place] [address] [place] Occult Blood,Urine Negative Normal Negative [facility] Comment on above: Order Comment: Name Collection Type:: Clean-Voided Midstream Result Comment: PERF ORMED BY: [place] [address] PATHOLOGIST ROD DRAWER RAQUEL LOPEZ M.D. Performed By: #### A DDONUAPLUS #### [place] [address] [place] pH (U) 7.5 [pH] Normal 5.0-9.0 [facility] Comment on above: Order Comment: Name Collection Type:: Clean-Voided Midstream Performed By: #### A DDONUAPLUS #### [place] [address] [place] Protein,Urine Negative Normal Negative [facility] Comment on above: Order Comment: Name Collection Type:: Clean-Voided Midstream Performed By: #### A DDONUAPLUS #### [address] RBC,Urine None Seen Normal 0-4 [facility] Comment on above: Order Comment: Name Collection Type:: Clean-Voided Midstream Performed By: #### A DDONUAPLUS #### [address] Specificy [place],Urine 1.010 Normal 1.001-1.03 0 [facility] Comment on above: Order Comment: Name Collection Type:: Clean-Voided Midstream Performed By: #### A DDONUAPLUS #### [address] Squamous Epithelial Cell,Urine 5-9 High 0-2 [facility] Comment on above: Order Comment: Name Collection Type:: Clean-Voided Midstream Performed By: #### A DDONUAPLUS #### [place] [address] [place] Urobilinogen,Urine Normal Normal Normal [facility] Comment on above: Order Comment: Name Collection Type:: Clean-Voided Midstream Performed By: #### A DDONUAPLUS #### [facility] [address] [place] [address] [place] WBC,Urine 5-9 High 0-4 [facility] Comment on above: Order Comment: Name Collection Type:: Clean-Voided Midstream Performed By: #### A DDONUAPLUS #### [place] [address] [place] ECG 12 lead ECGon 03-12-2023 ECG 12 lead ECG [facility] [place] [address] [place] [address] Electrocardiograph Report Signed Patient: Steven Harding MR#: [id number] 1 : 1940 Acct:[id number] Age/Sex: 83 / F ADM Date: 03/12/23 Loc: Room: [address] [place] [address] Type: ADM INOo Attending Dr: Sima Hdz MD Ordering Provider: Hunter Dhillon PA-C Date of Service: 03/12/2307/04/1433 ECG/ECG 12 lead ECG: CHEST PAIN Copies to: Test Reason : Blood Pressure : / mmHG Vent. Rate : 070 BPM Atrial Rate : 070 BPM P-R Int : 152 ms QRS Dur : 082 ms QT Int : 392 ms P-R-T Axes : 081 -41 082 degrees QTc Int : 423 ms Normal sinus rhythm Left axis deviation Abnormal ECG When compared with ECG of 05-MAR-2023 18:02, premature atrial complexes are no longer present Confirmed by Zane Michael DO ([id number]) on 03/13/2023 8:21:27 AM Referred By: Electronically Signed By:Zane Michael DO Transcribed By: MUS Signed By Zane Mcihael DO 3 0821 Normal [facility] Eosinophils Auto (Bld) [#/Vo l]Ordered By: Hunter Dhillon on 03-12-2023 Eosinophils (Bld) [#/Vol] 0.2 10*3/uL 0.0-0.45 [facility] Eosinophils/100 WBC Auto (Bl d)Ordered By: Hunter Dhillon on 03-12-2023 Eosinophils/100 WBC (Bld) 2.0 % . [facility] Erythrocyte distribution wid th Auto (RBC) [Ratio]Ordered By: Hunter Dhillon on 03-12-2023 Erythrocyte distribution width (RBC) [Ratio] 12.6 % 11.9-15.3 [facility] Globulin Calc (S) [Mass/Vol] Ordered By: Hunter Dhillon on 03-12-2023 Globulin (S) [Mass/Vol] 2.2 g/dL [facility] Glucose [Mass/volume] in Ser um or PlasmaOrdered By: Hunter Dhillon on 03-12-2023 Glucose [Mass/Vol] 87 mg/dL 70-100 [facility] Comment on above: ADA recommended refe rence rangeRandom Glucose Reference Range is dependent on time and content of last meal. Glucose of more than 200 mg/dL in a nonstressed, ambulatory subject supports the diagnosis of Diabetes Mellitus. Hematocrit Auto (Bld) [Volum e fraction]Ordered By: Hunter Dhillon on 03-12-2023 Hematocrit (Bld) [Volume fraction] 35.5 % 34.0-46.4 [facility] Hemoglobin [Mass/volume] in BloodOrdered By: Hunter Dhillon on 03-12-2023 Hemoglobin (Bld) [Mass/Vol] 12.4 g/dL 11.8-15.4 [facility] Hepatic Panelon 03-12-2023 Albumin [Mass/Vol] 4.1 g/dL Normal 3.5-5.7 [facility] Comment on above: Performed By: #### B FORGE SHOP MACHINE REPAIRER, BMP, PT, PTT, HS TROP, CBC, TSH3, CK #### [facility] [address] Albumin/Globulin [Mass ratio] 1.9 {ratio} Normal [facility] Comment on above: Performed By: #### B FORGE SHOP MACHINE REPAIRER, BMP, PT, PTT, HS TROP, CBC, TSH3, CK #### [facility] [address] ALP [Catalytic activity/Vol] 40 U/L Normal 34-104 [facility] Comment on above: Performed By: #### B FORGE SHOP MACHINE REPAIRER, BMP, PT, PTT, HS TROP, CBC, TSH3, CK #### [facility] [address] [place] [address] [place] ALT [Catalytic activity/Vol] 14 U/L Normal 7-52 [facility] Comment on above: Performed By: #### B FORGE SHOP MACHINE REPAIRER, BMP, PT, PTT, HS TROP, CBC, TSH3, CK #### [facility] [address] [place] [address] [place] AST [Catalytic activity/Vol] 15 U/L Normal 13-39 [facility] Comment on above: Performed By: #### B FORGE SHOP MACHINE REPAIRER, BMP, PT, PTT, HS TROP, CBC, TSH3, CK #### [facility] [address] Bilirubin [Mass/Vol] 0.4 mg/dL Normal 0.3-1.0 [facility] Comment on above: Performed By: #### B FORGE SHOP MACHINE REPAIRER, BMP, PT, PTT, HS TROP, CBC, TSH3, CK #### [facility] [address] Bilirubin,Indirect 0.3 mg/dL Normal [facility] Comment on above: Performed By: #### B FORGE SHOP MACHINE REPAIRER, BMP, PT, PTT, HS TROP, CBC, TSH3, CK #### [facility] [address] Bilirubin.indirect [Mass/Vol] 0.10 mg/dL Normal 0.03-0.18 [facility] Comment on above: Performed By: #### B FORGE SHOP MACHINE REPAIRER, BMP, PT, PTT, HS TROP, CBC, TSH3, CK #### [address] Globulin (S) [Mass/Vol] 2.2 g/dL Normal [facility] Comment on above: Performed By: #### B FORGE SHOP MACHINE REPAIRER, BMP, PT, PTT, HS TROP, CBC, TSH3, CK #### [address] Protein [Mass/Vol] 6.3 g/dL Low 6.4-8.9 [facility] Comment on above: Performed By: #### B FORGE SHOP MACHINE REPAIRER, BMP, PT, PTT, HS TROP, CBC, TSH3, CK #### [address] INR in Platelet poor plasma by Coagulation assayOrdered By: Hunter Dhillon on 03-12-2023 INR Coag (PPP) [Relative time] 0.9 {INR} [facility] Comment on above: INR Therapeutic Rang e A) Pre- and Peroperative OAT started two weeks before surgery. NOT HIP SURGERY: 1.5 - 2.5 HIP SURGERY: 2 - 3B) Primary and secondary prevention of venous THROMBOSIS: 2 - 3C) Active venous thrombosis, pulmonary embolismand prevention of recurrent venous thrombosis: 2 - 3D) Prevention of arterial thromboembolismincluding patients with mechanical heart valves: 3 - 4.5 Ketones Auto test strip (U) [Mass/Vol]Ordered By: Hunter Dhillon on 03-12-2023 Ketones (U) [Mass/Vol] Negative Negative Fi [facility] Leukocytes [#/volume] correc jazmyne for nucleated erythrocytes in Blood by Automated counOrdered By: Hunter Dhillon on 03-12-2023 WBC corrected for nucl RBC Auto (Bld) [#/Vol] 8.9 10*3/uL 3.8-11.6 [facility] Lymphocytes Auto (Bld) [#/Vo l]Ordered By: Hunter Dhillon on 03-12-2023 Lymphocytes (Bld) [#/Vol] 1.2 10*3/uL 1.00-4.8 [facility] Lymphocytes/100 WBC Auto (Bl d)Ordered By: Hunter Dhillon on 03-12-2023 Lymphocytes/100 WBC (Bld) 13.2 % . [facility] MCH Auto (RBC) [Entitic mass ]Ordered By: Hunter Dhillon on 03-12-2023 MCH (RBC) [Entitic mass] 31.9 pg 24.7-34.3 [facility] MCHC Auto (RBC) [Mass/Vol]Or dered By: Hunter Dhillon on 03-12-2023 MCHC (RBC) [Mass/Vol] 34.7 g/dL 32.0-35.0 [facility] MCV Auto (RBC) [Entitic vol] Ordered By: Hunter Dhillon on 03-12-2023 MCV (RBC) [Entitic vol] 91.8 fL 80-100 [facility] Monocyte distribution width [Entitic volume] in Blood by AutomatedOrdered By: Hunter Dhillon on 03-12-2023 Monocyte distribution width Auto (Bld) [Entitic vol] 17.50 % 0.00-20.00 [facility] Monocytes Auto (Bld) [#/Vol] Ordered By: Hunter Dhillon on 03-12-2023 Monocytes (Bld) [#/Vol] 0.5 10*3/uL 0.0-0.8 [facility] Monocytes/100 WBC Auto (Bld) Ordered By: Hunter Dhillon on 03-12-2023 Monocytes/100 WBC (Bld) 5.1 % . [facility] Natriuretic peptide B [Mass/ Vol]Ordered By: Hunter Dhillon on 03-12-2023 Natriuretic peptide B (Bld) [Mass/Vol] 83.0 pg/mL 5-100 [facility] Neutrophils Auto (Bld) [#/Vo l]Ordered By: Hunter Dhillon on 03-12-2023 Neutrophils (Bld) [#/Vol] 7.0 10*3/uL 1.8-7.7 [facility] Neutrophils/100 WBC Auto (Bl d)Ordered By: Hunter Dhillon on 03-12-2023 Neutrophils/100 WBC (Bld) 79.3 % . [facility] No Panel InformationOrdered By: Hunter Dhillon on 03-12-2023 Estimated GFR (CKD-EPI) > 60.0 mL/Min [facility] Creatinine Clearance (Chem 41.99 [facility] Nucleated erythrocytes [Pres ence] in Blood by Automated countOrdered By: Hunter Dhillon on 03-12-2023 Nucleated RBC Auto Ql (Bld) 0.0 /100{WBC} 0-0.5 [facility] Partial Thromboplastin Timeo n 03-12-2023 aPTT Coag (Bld) [Time] 26.1 s Normal 25.1-36.5 [facility] Comment on above: Result Comment: A he matocrit value greater than 55% may lead to inaccurate results in coagulation testing. Patients having hematocrit values >55% require a special collection tube for coagulation studies. Please contact the laboratory at [phone] for redraw instructions. PERFORMED BY: [place] [address] PATHOLOGIST ROD DRAWER RAQUEL LOPEZ M.D. Performed By: #### B [employer] MACHINE REPAIRER, BMP, PT, PTT, HS TROP, CBC, TSH3, CK #### [place] [id number] [facility] Platelet mean volume Auto (B ld) [Entitic vol]Ordered By: Hunter Dhillon on 03-12-2023 Platelet mean volume (Bld) [Entitic vol] 7.2 fL 6.3-10.7 [facility] Platelets Auto (Bld) [#/Vol] Ordered By: Hunter Dhillon on 03-12-2023 Platelets (Bld) [#/Vol] 237 10*3/uL 150-450 [facility] Potassium [Moles/volume] in Serum or PlasmaOrdered By: Hunter Dhillon on 03-12-2023 Potassium [Moles/Vol] 4.5 mmol/L 3.5-5.1 [facility] Protein Auto test strip (U) [Mass/Vol]Ordered By: Hunter Dhillon on 03-12-2023 Protein (U) [Mass/Vol] Negative Negative Fi [facility] Protein [Mass/volume] in Ser um or PlasmaOrdered By: Hunter Dhillon on 03-12-2023 Protein [Mass/Vol] 6.3 g/dL 6.4-8.9 [facility] Prothrombin Time INRon 03-12 INR Coag (PPP) [Relative time] 0.9 {INR} Normal [facility] Comment on above: Result Comment: INR Therapeutic Range A) Pre- and Peroperative OAT started two weeks before surgery. NOT HIP SURGERY: 1.5 - 2.5 HIP SURGERY: 2 - 3 B) Primary and secondary prevention of venous THROMBOSIS: 2 - 3 C) Active venous thrombosis, pulmonary embolism and prevention of recurrent venous thrombosis: 2 - 3 D) Prevention of arterial thromboembolism including patients with mechanical heart valves: 3 - 4.5 Performed By: #### B [employer] MACHINE REPAIRER, BMP, PT, PTT, HS TROP, CBC, TSH3, CK #### [facility] [address] [place] [id number] [facility] PT Coag (PPP) [Time] 11.3 s Normal 9.0-12.9 [facility] Comment on above: Result Comment: A he matocrit value greater than 55% may lead to inaccurate results in coagulation testing. Patients having hematocrit values >55% require a special collection tube for coagulation studies. Please contact the laboratory at [phone] for redraw instructions. Performed By: #### B [employer] MACHINE REPAIRER, BMP, PT, PTT, HS TROP, CBC, TSH3, CK #### [facility] [address] [place] [id number] [facility] Prothrombin time (PT)Ordered By: Hunter Dhillon on 03-12-2023 PT Coag (PPP) [Time] 11.3 s 9.0-12.9 [facility] Comment on above: A hematocrit value g reater than 55% may lead to inaccurate results in coagulation testing. Patients having hematocrit values >55% require a special collection tube for coagulation studies. Please contact the laboratory at [phone] for redraw instructions. RBC Auto (Bld) [#/Vol]Ordere d By: Hunter Dhillon on 03-12-2023 RBC (Bld) [#/Vol] 3.87 10*6/uL 3.60-5.00 [facility] Serum or plasma albumin/glob ulin mass ratioOrdered By: Hunter Dhillon on 03-12-2023 Albumin/Globulin [Mass ratio] 1.9 {ratio} [facility] Serum or plasma anion gap de terminationOrdered By: Hunter Dhillon on 03-12-2023 Anion gap [Moles/Vol] 13.3 mmol/L 6.0-15.0 [facility] Serum or plasma non-glucuron idated bilirubin measurement (mass/volume)Ordered By: Hunter Dhillon on 03-12-2023 Bilirubin.indirect [Mass/Vol] 0.3 mg/dL [facility] Sodium [Moles/volume] in Ser um or PlasmaOrdered By: Hunter Dhillon on 03-12-2023 Sodium [Moles/Vol] 128 mmol/L 136-145 [facility] Squamous epithelial cells de tection in urine sediment by light microscopyOrdered By: Hunter Dhillon on 03-12-2023 Epithelial cells.squamous LM Ql (Urine sed) 5-9 [HPF] 0-2 [facility] Thyroid Stimulating Hormoneo n 03-12-2023 TSH Qn 0.01 m[IU]/L Low 0.45-5.33 [facility] Comment on above: Result Comment: PERF ORMED BY: [facility] [address] [place] [address] PATHOLOGIST ROD DRAWER RAQUEL LOPEZ M.D. Performed By: #### B [employer] MACHINE REPAIRER, BMP, PT, PTT, HS TROP, CBC, TSH3, CK #### [facility] [address] Thyrotropin [Units/volume] i n Serum or PlasmaOrdered By: Hunter Dhillon on 03-12-2023 TSH Qn 0.01 m[IU]/L 0.45-5.33 [facility] Troponin I High Sensitivityo n 03-12-2023 Troponin I High Sensitivity 5.6 pg/mL Normal 0.0-15.0 [facility] Comment on above: Result Comment: PERF ORMED BY: [place] [address] PATHOLOGIST ROD DRAWER RAQUEL LOPEZ M.D. Performed By: #### B [employer] MACHINE REPAIRER, BMP, PT, PTT, HS TROP, CBC, TSH3, CK #### [facility] [address] Troponin I.cardiac [Mass/vol ume] in Serum or Plasma by Detection limit <= 0.01 ng/Ordered By: Hunter Dhillon on 03-12-2023 Troponin I.cardiac DL <= 0.01 ng/mL [Mass/Vol] 5.6 pg/mL 0.0-15.0 [facility] Urea nitrogen [Mass/volume] in Serum or PlasmaOrdered By: Hunter Dhillon on 03-12-2023 Urea nitrogen [Mass/Vol] 11 mg/dL 7-25 [facility] Urine appearanceOrdered By: Hunter Dhillon on 03-12-2023 Appearance (U) Slightly cloudy Clear [facility] Urine bacteria detection by automated methodOrdered By: Hunter Dhillon on 03-12-2023 Bacteria Auto Ql (U) 1+ None Seen [facility] Urine colorOrdered By: Gera Dhillon on 03-12-2023 Color (U) Yellow Yellow [facility] Urine glucose measurement by automated test strip (mass/volume)Ordered By: Hunter Dhillon on 03-12-2023 Glucose Auto test strip (U) [Mass/Vol] Normal mg/dL Normal [facility] Urine hemoglobin detection b y automated test stripOrdered By: Hunter Dhillon on 03-12-2023 Hemoglobin Auto test strip Ql (U) Negative Negative [facility] Urine leukocyte esterase det ection by automated test stripOrdered By: Hunter Dhillon on 03-12-2023 Leukocyte esterase Auto test strip Ql (U) 3+ Negative [facility] Urine nitrite detection by a utomated test stripOrdered By: Hunter Dhillon on 03-12-2023 Nitrite Auto test strip Ql (U) Negative Negative [facility] Urobilinogen Auto test strip (U) [Mass/Vol]Ordered By: Hunter Dhillon on 03-12-2023 Urobilinogen (U) [Mass/Vol] Normal mg/dL Normal [facility] WBC Auto (Bld) [#/Vol]Ordere d By: Hunter Dhillon on 03-12-2023 WBC (Bld) [#/Vol] 8.9 10*3/uL 3.8-11.6 [facility] pH Auto test strip (U)Ordere d By: Hunter Dhillon on 03-12-2023 pH (U) 1.010 [pH] 1.001-1.03 0 [facility] pH (U) 7.5 [pH] 5.0-9.0 [facility] Basic Metabolic Panelon 09-2 Anion gap [Moles/Vol] 6.6 mmol/L Normal 6.0-15.0 [facility] Comment on above: Performed By: #### B [employer] MACHINE REPAIRER, BMP, PT, PTT, HS TROP, CBC, TSH3, CK #### [facility] [address] [place] [address] [place] Calcium [Mass/Vol] 8.9 mg/dL Normal 8.6-10.3 [facility] Comment on above: Performed By: #### B [employer] MACHINE REPAIRER, BMP, PT, PTT, HS TROP, CBC, TSH3, CK #### [facility] [address] [place] [address] [place] Chloride [Moles/Vol] 104 mmol/L Normal 98-107 [facility] Comment on above: Performed By: #### B [employer] MACHINE REPAIRER, BMP, PT, PTT, HS TROP, CBC, TSH3, CK #### [facility] [address] [place] [address] [place] CO2 [Moles/Vol] 26.8 mmol/L Normal 21.0-31.0 [facility] Comment on above: Performed By: #### B [employer] MACHINE REPAIRER, BMP, PT, PTT, HS TROP, CBC, TSH3, CK #### [facility] [address] Creatinine [Mass/Vol] 0.83 mg/dL Normal 0.60-1.20 [facility] Comment on above: Performed By: #### B [employer] MACHINE REPAIRER, BMP, PT, PTT, HS TROP, CBC, TSH3, CK #### [facility] [address] [place] [address] [place] Creatinine Clr Calc Pharmacy 46.94 [facility] Comment on above: Performed By: #### B [employer] MACHINE REPAIRER, BMP, PT, PTT, HS TROP, CBC, TSH3, CK #### [facility] [address] [place] [address] [place] GFR/1.73 sq M.predicted MDRD (S/P/Bld) [Vol rate/Area] mL/min/{1.73_m2} [facility] Comment on above: Performed By: #### B [employer] MACHINE REPAIRER, BMP, PT, PTT, HS TROP, CBC, TSH3, CK #### [facility] [address] Glucose [Mass/Vol] 94 mg/dL Normal 70-100 [facility] Comment on above: Result Comment: [facility] Glucose Reference Range is dependent on time and content of last meal. Glucose of more than 200 mg/dL in a nonstressed, ambulatory subject supports the diagnosis of Diabetes Mellitus. ADA recommended reference range Performed By: #### B [employer] MACHINE REPAIRER, BMP, PT, PTT, HS TROP, CBC, TSH3, CK #### [facility] [address] [place] [address] [place] Potassium [Moles/Vol] 4.4 mmol/L Normal 3.5-5.1 [facility] Comment on above: Performed By: #### B FOR[employer] MACHINE REPAIRER, BMP, PT, PTT, HS TROP, CBC, TSH3, CK #### [facility] [address] [place] [address] [place] Sodium [Moles/Vol] 133 mmol/L Low 136-145 [facility] Comment on above: Performed By: #### B [employer] MACHINE REPAIRER, BMP, PT, PTT, HS TROP, CBC, TSH3, CK #### [facility] [address] [place] [id number] [facility] Urea nitrogen [Mass/Vol] 8 mg/dL Normal 7-25 [facility] Comment on above: Performed By: #### B [employer] MACHINE REPAIRER, BMP, PT, PTT, HS TROP, CBC, TSH3, CK #### [facility] [address] Basophils Auto (Bld) [#/Vol] Ordered By: Chuck Chacon on 03-07-2023 Basophils (Bld) [#/Vol] 0.0 10*3/uL 0.0-0.2 [facility] Basophils/100 WBC Auto (Bld) Ordered By: Chuck Chacon on 03-07-2023 Basophils/100 WBC (Bld) 0.7 % . [facility] Calcium [Mass/volume] in Ser um or PlasmaOrdered By: Chuck Chacon on 03-07-2023 Calcium [Mass/Vol] 8.9 mg/dL 8.6-10.3 [facility] Carbon dioxide, total [Moles /volume] in Serum or PlasmaOrdered By: Chuckcasandra Chacon on 03-07-2023 CO2 [Moles/Vol] 26.8 mmol/L 21.0-31.0 [facility] Chloride [Moles/volume] in S yamilex or PlasmaOrdered By: Chuck Chacon on 03-07-2023 Chloride [Moles/Vol] 104 mmol/L 98-107 [facility] Complete Blood Count Auto Di ffon 03-07-2023 Basophils (Bld) [#/Vol] 0.0 10*3/uL Normal 0.0-0.2 [facility] Comment on above: Result Comment: PERF ORMED BY: [place] [address] PATHOLOGIST ROD DRAWER JIANLAN SUN M.D. Performed By: #### B [employer] MACHINE REPAIRER, BMP, PT, PTT, HS TROP, CBC, TSH3, CK #### [address] Basophils/100 WBC (Bld) 0.7 % Normal . [facility] Comment on above: Performed By: #### B [employer] MACHINE REPAIRER, BMP, PT, PTT, HS TROP, CBC, TSH3, CK #### [address] Eosinophils (Bld) [#/Vol] 0.4 10*3/uL Normal 0.0-0.45 [facility] Comment on above: Performed By: #### B [employer] MACHINE REPAIRER, BMP, PT, PTT, HS TROP, CBC, TSH3, CK #### [address] Eosinophils/100 WBC (Bld) 5.2 % Normal . [facility] Comment on above: Performed By: #### B FOR[employer] MACHINE REPAIRER, BMP, PT, PTT, HS TROP, CBC, TSH3, CK #### [address] Erythrocyte distribution width (RBC) [Ratio] 12.8 % Normal 11.9-15.3 [facility] Comment on above: Performed By: #### B [employer] MACHINE REPAIRER, BMP, PT, PTT, HS TROP, CBC, TSH3, CK #### [address] Hematocrit (Bld) [Volume fraction] 35.2 % Normal 34.0-46.4 [facility] Comment on above: Performed By: #### B FOR[employer] MACHINE REPAIRER, BMP, PT, PTT, HS TROP, CBC, TSH3, CK #### [address] Hemoglobin (Bld) [Mass/Vol] 12.0 g/dL Normal 11.8-15.4 [facility] Comment on above: Performed By: #### B [employer] MACHINE REPAIRER, BMP, PT, PTT, HS TROP, CBC, TSH3, CK #### [place] [address] [place] Lymphocytes (Bld) [#/Vol] 1.7 10*3/uL Normal 1.00-4.8 [facility] Comment on above: Performed By: #### B FOR[employer] SHOP MACHINE REPAIRER, BMP, PT, PTT, HS TROP, CBC, TSH3, CK #### [address] Lymphocytes/100 WBC (Bld) 24.6 % Normal . [facility] Comment on above: Performed By: #### B FOR[employer] MACHINE REPAIRER, BMP, PT, PTT, HS TROP, CBC, TSH3, CK #### [address] MCH (RBC) [Entitic mass] 31.6 pg Normal 24.7-34.3 [facility] Comment on above: Performed By: #### B FOR[employer] MACHINE REPAIRER, BMP, PT, PTT, HS TROP, CBC, TSH3, CK #### [address] MCV (RBC) [Entitic vol] 92.5 fL Normal 80-100 [facility] Comment on above: Performed By: #### B FOR[employer] SH[employer] MACHINE REPAIRER, BMP, PT, PTT, HS TROP, CBC, TSH3, CK #### [address] Mean Corpuscular HGB Conc 34.1 g/dL Normal 32.0-35.0 [facility] Comment on above: Performed By: #### B [employer] MACHINE REPAIRER, BMP, PT, PTT, HS TROP, CBC, TSH3, CK #### [address] Monocytes (Bld) [#/Vol] 0.6 10*3/uL Normal 0.0-0.8 [facility] Comment on above: Performed By: #### B FOR[employer] MACHINE REPAIRER, BMP, PT, PTT, HS TROP, CBC, TSH3, CK #### [address] Monocytes/100 WBC (Bld) 8.7 % Normal . [facility] Comment on above: Performed By: #### B [employer] MACHINE REPAIRER, BMP, PT, PTT, HS TROP, CBC, TSH3, CK #### [facility] [address] Neutrophils (Bld) [#/Vol] 4.2 10*3/uL Normal 1.8-7.7 [facility] Comment on above: Performed By: #### B [employer] MACHINE REPAIRER, BMP, PT, PTT, HS TROP, CBC, TSH3, CK #### [facility] [address] Neutrophils/100 WBC (Bld) 60.8 % Normal . [facility] Comment on above: Performed By: #### B FOR[employer] MACHINE REPAIRER, BMP, PT, PTT, HS TROP, CBC, TSH3, CK #### [facility] [address] NRBC% 0.0 /100{WBC} Normal 0-0.5 [facility] Comment on above: Performed By: #### B [employer] MACHINE REPAIRER, BMP, PT, PTT, HS TROP, CBC, TSH3, CK #### [address] Platelet mean volume (Bld) [Entitic vol] 7.5 fL Normal 6.3-10.7 [facility] Comment on above: Performed By: #### B [employer] MACHINE REPAIRER, BMP, PT, PTT, HS TROP, CBC, TSH3, CK #### [address] Platelets (Bld) [#/Vol] 232 10*3/uL Normal 150-450 [facility] Comment on above: Performed By: #### B [employer] MACHINE REPAIRER, BMP, PT, PTT, HS TROP, CBC, TSH3, CK #### [address] RBC (Bld) [#/Vol] 3.80 10*6/uL Normal 3.60-5.00 [facility] Comment on above: Performed By: #### B [employer] MACHINE REPAIRER, BMP, PT, PTT, HS TROP, CBC, TSH3, CK #### [address] WBC (Bld) [#/Vol] 6.8 10*3/uL Normal 3.8-11.6 [facility] Comment on above: Performed By: #### B [employer] MACHINE REPAIRER, BMP, PT, PTT, HS TROP, CBC, TSH3, CK #### [facility] [address] Creatinine [Mass/volume] in Serum or PlasmaOrdered By: Chuck Chacon on 03-07-2023 Creatinine [Mass/Vol] 0.83 mg/dL 0.60-1.20 [facility] Eosinophils Auto (Bld) [#/Vo l]Ordered By: Chuckscooby Chacon on 03-07-2023 Eosinophils (Bld) [#/Vol] 0.4 10*3/uL 0.0-0.45 [facility] Eosinophils/100 WBC Auto (Bl d)Ordered By: Chuck Chacon on 03-07-2023 Eosinophils/100 WBC (Bld) 5.2 % . [facility] Erythrocyte distribution wid th Auto (RBC) [Ratio]Ordered By: Chuck Chacon on 03-07-2023 Erythrocyte distribution width (RBC) [Ratio] 12.8 % 11.9-15.3 [facility] Glucose [Mass/volume] in Ser um or PlasmaOrdered By: Chuck Chacon on 03-07-2023 Glucose [Mass/Vol] 94 mg/dL 70-100 [facility] Comment on above: ADA recommended refe rence rangeRandom Glucose Reference Range is dependent on time and content of last meal. Glucose of more than 200 mg/dL in a nonstressed, ambulatory subject supports the diagnosis of Diabetes Mellitus. Hematocrit Auto (Bld) [Volum e fraction]Ordered By: Chuck Chacon on 03-07-2023 Hematocrit (Bld) [Volume fraction] 35.2 % 34.0-46.4 [facility] Hemoglobin [Mass/volume] in BloodOrdered By: Chuck Chacon on 03-07-2023 Hemoglobin (Bld) [Mass/Vol] 12.0 g/dL 11.8-15.4 [facility] Leukocytes [#/volume] correc jazmyne for nucleated erythrocytes in Blood by Automated counOrdered By: Chuck Chacon on 03-07-2023 WBC corrected for nucl RBC Auto (Bld) [#/Vol] 6.8 10*3/uL 3.8-11.6 [facility] Lymphocytes Auto (Bld) [#/Vo l]Ordered By: Chuck Chacon on 03-07-2023 Lymphocytes (Bld) [#/Vol] 1.7 10*3/uL 1.00-4.8 [facility] Lymphocytes/100 WBC Auto (Bl d)Ordered By: Chuck Chacon on 03-07-2023 Lymphocytes/100 WBC (Bld) 24.6 % . [facility] MCH Auto (RBC) [Entitic mass ]Ordered By: Chuck Chacon on 03-07-2023 MCH (RBC) [Entitic mass] 31.6 pg 24.7-34.3 [facility] MCHC Auto (RBC) [Mass/Vol]Or dered By: Chuck Chacon on 03-07-2023 MCHC (RBC) [Mass/Vol] 34.1 g/dL 32.0-35.0 [facility] MCV Auto (RBC) [Entitic vol] Ordered By: Chuck Chacon on 03-07-2023 MCV (RBC) [Entitic vol] 92.5 fL 80-100 [facility] Magnesiumon 03-07-2023 Magnesium [Mass/Vol] 1.4 mg/dL Low 1.9-2.7 [facility] Comment on above: Result Comment: PERF ORMED BY: [place] [address] PATHOLOGIST ROD DRAWER RAQUEL LOPEZ M.D. Performed By: #### B [employer] MACHINE REPAIRER, BMP, PT, PTT, HS TROP, CBC, TSH3, CK #### [address] Magnesium [Mass/volume] in S yamilex or PlasmaOrdered By: Chuck Chacon on 03-07-2023 Magnesium [Mass/Vol] 1.4 mg/dL 1.9-2.7 [facility] Monocytes Auto (Bld) [#/Vol] Ordered By: Chuck Chacon on 03-07-2023 Monocytes (Bld) [#/Vol] 0.6 10*3/uL 0.0-0.8 [facility] Monocytes/100 WBC Auto (Bld) Ordered By: Chuck Chacon on 03-07-2023 Monocytes/100 WBC (Bld) 8.7 % . [facility] Neutrophils Auto (Bld) [#/Vo l]Ordered By: Chuck Chacon on 03-07-2023 Neutrophils (Bld) [#/Vol] 4.2 10*3/uL 1.8-7.7 [facility] Neutrophils/100 WBC Auto (Bl d)Ordered By: Chuck Chacon on 03-07-2023 Neutrophils/100 WBC (Bld) 60.8 % . [facility] No Panel InformationOrdered By: Chuck Chacon on 03-07-2023 Estimated GFR (CKD-EPI) > 60.0 mL/Min [facility] Creatinine Clearance (Chem 46.94 [facility] Nucleated erythrocytes [Pres ence] in Blood by Automated countOrdered By: Chuck Chacon on 03-07-2023 Nucleated RBC Auto Ql (Bld) 0.0 /100{WBC} 0-0.5 [facility] Platelet mean volume Auto (B ld) [Entitic vol]Ordered By: Chuck Chacon on 03-07-2023 Platelet mean volume (Bld) [Entitic vol] 7.5 fL 6.3-10.7 [facility] Platelets Auto (Bld) [#/Vol] Ordered By: Chuck Chacon on 03-07-2023 Platelets (Bld) [#/Vol] 232 10*3/uL 150-450 [facility] Potassium [Moles/volume] in Serum or PlasmaOrdered By: Chuck Chacon on 03-07-2023 Potassium [Moles/Vol] 4.4 mmol/L 3.5-5.1 [facility] RBC Auto (Bld) [#/Vol]Ordere d By: Chuck Chacon on 03-07-2023 RBC (Bld) [#/Vol] 3.80 10*6/uL 3.60-5.00 [facility] Serum or plasma anion gap de terminationOrdered By: Chuck Chacon on 03-07-2023 Anion gap [Moles/Vol] 6.6 mmol/L 6.0-15.0 [facility] Sodium [Moles/volume] in Ser um or PlasmaOrdered By: Chuck Chacon on 03-07-2023 Sodium [Moles/Vol] 133 mmol/L 136-145 [facility] Urea nitrogen [Mass/volume] in Serum or PlasmaOrdered By: Chuck Chacon on 03-07-2023 Urea nitrogen [Mass/Vol] 8 mg/dL 01-03 [facility] WBC Auto (Bld) [#/Vol]Ordere d By: Chuck Chacon on 03-07-2023 WBC (Bld) [#/Vol] 6.8 10*3/uL 3.8-11.6 [facility] A1C with Estimated Average G chelo 03-06-2023 Glucose [Mass/Vol] 120 mg/dL Normal [facility] Comment on above: Result Comment: PERF ORMED BY: [place] [address] PATHOLOGIST ROD DRAWER RAQUEL LOPEZ M.D. Performed By: #### B [employer] MACHINE REPAIRER, BMP, PT, PTT, HS TROP, CBC, TSH3, CK #### [facility] [address] [place] [address] HbA1c (Bld) [Mass fraction] 5.8 % High 4.3-5.6 [facility] Comment on above: Result Comment: Incr eased risk for diabetes: 5.7 - 6.4 diabetes: >6.4 glycemic control for adults with diabetes: <7.0 Performed By: #### B [employer] MACHINE REPAIRER, BMP, PT, PTT, HS TROP, CBC, TSH3, CK #### [facility] [address] [place] [address] Alanine aminotransferase [En zymatic activity/volume] in Serum or PlasmaOrdered By: Jemal Jones on 03-06-2023 ALT [Catalytic activity/Vol] 17 U/L 7-52 [facility] Albumin [Mass/volume] in Ser um or Plasma by Bromocresol green (BCG) dye binding methoOrdered By: Jemal Jones on 03-06-2023 Albumin BCG dye [Mass/Vol] 4.3 g/dL 3.5-5.7 [facility] Alkaline phosphatase [Enzyma tic activity/volume] in Serum or PlasmaOrdered By: Jemal Jones on 03-06-2023 ALP [Catalytic activity/Vol] 45 U/L 34-104 [facility] Aspartate aminotransferase [ Enzymatic activity/volume] in Serum or PlasmaOrdered By: Jemal Jones on 03-06-2023 AST [Catalytic activity/Vol] 16 U/L 13-39 [facility] Bilirubin.total [Mass/volume ] in Serum or PlasmaOrdered By: Jemal Jones on 03-06-2023 Bilirubin [Mass/Vol] 0.5 mg/dL 0.3-1.0 [facility] Cholesterol [Mass/volume] in Serum or PlasmaOrdered By: Jemal Jones on 03-06-2023 Cholesterol [Mass/Vol] 88 mg/dL 140-200 [facility] Comment on above: Chol less than 200 m g/dl low riskChol 201-239 mg/dl borderline riskChol 240 mg/dl and greater high risk Cholesterol in LDL Calc [Mas s/Vol]Ordered By: Jemal Jones on 03-06-2023 Cholesterol in LDL [Mass/Vol] 29 mg/dL 0-100 [facility] Comment on above: LDL ATP III CLASSIFI CATIONLDL less than 100 mg/dL OptimalLDL 100-129 mg/dL Near or above optimalLDL 130-159 mg/dL Borderline highLDL 160-189 mg/dL HighLDL greater than 189 mg/dL Very high Cholesterol in VLDL Calc [Ma ss/Vol]Ordered By: Jemal Jones on 03-06-2023 Cholesterol in VLDL [Mass/Vol] 16 mg/dL [facility] Complete Blood Count Auto Di ffon 03-06-2023 Basophils (Bld) [#/Vol] 0.0 10*3/uL Normal 0.0-0.2 [facility] Comment on above: Result Comment: PERF ORMED BY: [place] [address] PATHOLOGIST ROD DRAWER RAQUEL LOPEZ M.D. Performed By: #### B [employer] MACHINE REPAIRER, BMP, PT, PTT, HS TROP, CBC, TSH3, CK #### [address] Basophils/100 WBC (Bld) 0.6 % Normal . [facility] Comment on above: Performed By: #### B [employer] MACHINE REPAIRER, BMP, PT, PTT, HS TROP, CBC, TSH3, CK #### [address] Eosinophils (Bld) [#/Vol] 0.3 10*3/uL Normal 0.0-0.45 [facility] Comment on above: Performed By: #### B [employer] MACHINE REPAIRER, BMP, PT, PTT, HS TROP, CBC, TSH3, CK #### [address] Eosinophils/100 WBC (Bld) 4.2 % Normal . [facility] Comment on above: Performed By: #### B [employer] MACHINE REPAIRER, BMP, PT, PTT, HS TROP, CBC, TSH3, CK #### [address] Erythrocyte distribution width (RBC) [Ratio] 12.9 % Normal 11.9-15.3 [facility] Comment on above: Performed By: #### B [employer] MACHINE REPAIRER, BMP, PT, PTT, HS TROP, CBC, TSH3, CK #### [address] Hematocrit (Bld) [Volume fraction] 37.9 % Normal 34.0-46.4 [facility] Comment on above: Performed By: #### B [employer] MACHINE REPAIRER, BMP, PT, PTT, HS TROP, CBC, TSH3, CK #### [address] Hemoglobin (Bld) [Mass/Vol] 13.0 g/dL Normal 11.8-15.4 [facility] Comment on above: Performed By: #### B [employer] MACHINE REPAIRER, BMP, PT, PTT, HS TROP, CBC, TSH3, CK #### [address] Lymphocytes (Bld) [#/Vol] 1.7 10*3/uL Normal 1.00-4.8 [facility] Comment on above: Performed By: #### B [employer] MACHINE REPAIRER, BMP, PT, PTT, HS TROP, CBC, TSH3, CK #### [address] Lymphocytes/100 WBC (Bld) 22.0 % Normal . [facility] Comment on above: Performed By: #### [employer] MACHINE REPAIRER, BMP, PT, PTT, HS TROP, CBC, TSH3, CK #### [address] MCH (RBC) [Entitic mass] 31.5 pg Normal 24.7-34.3 [facility] Comment on above: Performed By: #### B [employer] MACHINE REPAIRER, BMP, PT, PTT, HS TROP, CBC, TSH3, CK #### [address] MCV (RBC) [Entitic vol] 91.9 fL Normal 80-100 [facility] Comment on above: Performed By: #### B [employer] MACHINE REPAIRER, BMP, PT, PTT, HS TROP, CBC, TSH3, CK #### [address] Mean Corpuscular HGB Conc 34.3 g/dL Normal 32.0-35.0 [facility] Comment on above: Performed By: #### B [employer] MACHINE REPAIRER, BMP, PT, PTT, HS TROP, CBC, TSH3, CK #### [address] Monocytes (Bld) [#/Vol] 0.6 10*3/uL Normal 0.0-0.8 [facility] Comment on above: Performed By: #### B [employer] MACHINE REPAIRER, BMP, PT, PTT, HS TROP, CBC, TSH3, CK #### [facility] [address] Monocytes/100 WBC (Bld) 8.2 % Normal . [facility] Comment on above: Performed By: #### B [employer] MACHINE REPAIRER, BMP, PT, PTT, HS TROP, CBC, TSH3, CK #### [facility] [address] Neutrophils (Bld) [#/Vol] 5.1 10*3/uL Normal 1.8-7.7 [facility] Comment on above: Performed By: #### B [employer] MACHINE REPAIRER, BMP, PT, PTT, HS TROP, CBC, TSH3, CK #### [facility] [address] Neutrophils/100 WBC (Bld) 65.0 % Normal . [facility] Comment on above: Performed By: #### [employer] MACHINE REPAIRER, BMP, PT, PTT, HS TROP, CBC, TSH3, CK #### [facility] [address] NRBC% 0.1 /100{WBC} Normal 0-0.5 [facility] Comment on above: Performed By: #### B [employer] MACHINE REPAIRER, BMP, PT, PTT, HS TROP, CBC, TSH3, CK #### [facility] [address] Platelet mean volume (Bld) [Entitic vol] 7.4 fL Normal 6.3-10.7 [facility] Comment on above: Performed By: #### B [employer] MACHINE REPAIRER, BMP, PT, PTT, HS TROP, CBC, TSH3, CK #### [facility] [address] Platelets (Bld) [#/Vol] 257 10*3/uL Normal 150-450 [facility] Comment on above: Performed By: #### B [employer] MACHINE REPAIRER, BMP, PT, PTT, HS TROP, CBC, TSH3, CK #### [facility] [address] RBC (Bld) [#/Vol] 4.12 10*6/uL Normal 3.60-5.00 [facility] Comment on above: Performed By: #### B [employer] MACHINE REPAIRER, BMP, PT, PTT, HS TROP, CBC, TSH3, CK #### [address] WBC (Bld) [#/Vol] 7.8 10*3/uL Normal 3.8-11.6 [facility] Comment on above: Performed By: #### [employer] MACHINE REPAIRER, BMP, PT, PTT, HS TROP, CBC, TSH3, CK #### [address] Comprehensive Metabolic Pane zofia 03-06-2023 Albumin [Mass/Vol] 4.3 g/dL Normal 3.5-5.7 [facility] Comment on above: Performed By: #### B [employer] MACHINE REPAIRER, BMP, PT, PTT, HS TROP, CBC, TSH3, CK #### [address] Albumin/Globulin [Mass ratio] 1.9 {ratio} Normal [facility] Comment on above: Performed By: #### B [employer] MACHINE REPAIRER, BMP, PT, PTT, HS TROP, CBC, TSH3, CK #### [address] ALP [Catalytic activity/Vol] 45 U/L Normal 34-104 [facility] Comment on above: Performed By: #### B [employer] MACHINE REPAIRER, BMP, PT, PTT, HS TROP, CBC, TSH3, CK #### [address] ALT [Catalytic activity/Vol] 17 U/L Normal 7-52 [facility] Comment on above: Performed By: #### B [employer] MACHINE REPAIRER, BMP, PT, PTT, HS TROP, CBC, TSH3, CK #### [address] Anion gap [Moles/Vol] 10.4 mmol/L Normal 6.0-15.0 [facility] Comment on above: Performed By: #### B [employer] MACHINE REPAIRER, BMP, PT, PTT, HS TROP, CBC, TSH3, CK #### [facility] [address] AST [Catalytic activity/Vol] 16 U/L Normal 13-39 [facility] Comment on above: Performed By: #### B [employer] MACHINE REPAIRER, BMP, PT, PTT, HS TROP, CBC, TSH3, CK #### [address] Bilirubin [Mass/Vol] 0.5 mg/dL Normal 0.3-1.0 [facility] Comment on above: Performed By: #### B [employer] MACHINE REPAIRER, BMP, PT, PTT, HS TROP, CBC, TSH3, CK #### [address] Calcium [Mass/Vol] 9.2 mg/dL Normal 8.6-10.3 [facility] Comment on above: Performed By: #### [employer] MACHINE REPAIRER, BMP, PT, PTT, HS TROP, CBC, TSH3, CK #### [address] Chloride [Moles/Vol] 98 mmol/L Normal 98-107 [facility] Comment on above: Performed By: #### [employer] MACHINE REPAIRER, BMP, PT, PTT, HS TROP, CBC, TSH3, CK #### [address] CO2 [Moles/Vol] 24.9 mmol/L Normal 21.0-31.0 [facility] Comment on above: Performed By: #### B [employer] MACHINE REPAIRER, BMP, PT, PTT, HS TROP, CBC, TSH3, CK #### [address] Creatinine [Mass/Vol] 0.85 mg/dL Normal 0.60-1.20 [facility] Comment on above: Performed By: #### B [employer] MACHINE REPAIRER, BMP, PT, PTT, HS TROP, CBC, TSH3, CK #### [address] Creatinine Clr Calc Pharmacy 45.45 [facility] Comment on above: Performed By: #### B [employer] MACHINE REPAIRER, BMP, PT, PTT, HS TROP, CBC, TSH3, CK #### [address] GFR/1.73 sq M.predicted MDRD (S/P/Bld) [Vol rate/Area] mL/min/{1.73_m2} [facility] Comment on above: Performed By: #### B [employer] MACHINE REPAIRER, BMP, PT, PTT, HS TROP, CBC, TSH3, CK #### [address] Globulin (S) [Mass/Vol] 2.3 g/dL [facility] Comment on above: Performed By: #### B [employer] MACHINE REPAIRER, BMP, PT, PTT, HS TROP, CBC, TSH3, CK #### [address] Glucose [Mass/Vol] 97 mg/dL Normal 70-100 [facility] Comment on above: Result Comment: [facility] Glucose Reference Range is dependent on time and content of last meal. Glucose of more than 200 mg/dL in a nonstressed, ambulatory subject supports the diagnosis of Diabetes Mellitus. ADA recommended reference range Performed By: #### B [employer] MACHINE REPAIRER, BMP, PT, PTT, HS TROP, CBC, TSH3, CK #### [address] Potassium [Moles/Vol] 4.3 mmol/L Normal 3.5-5.1 [facility] Comment on above: Performed By: #### B [employer] MACHINE REPAIRER, BMP, PT, PTT, HS TROP, CBC, TSH3, CK #### [address] Protein [Mass/Vol] 6.6 g/dL Normal 6.4-8.9 [facility] Comment on above: Performed By: #### B [employer] MACHINE REPAIRER, BMP, PT, PTT, HS TROP, CBC, TSH3, CK #### [address] Sodium [Moles/Vol] 129 mmol/L Low 136-145 [facility] Comment on above: Performed By: #### B [employer] MACHINE REPAIRER, BMP, PT, PTT, HS TROP, CBC, TSH3, CK #### [facility] [address] [place] [address] [place] Urea nitrogen [Mass/Vol] 14 mg/dL Normal 01-03 [facility] Comment on above: Performed By: #### B [employer] MACHINE REPAIRER, BMP, PT, PTT, HS TROP, CBC, TSH3, CK #### [facility] [address] [place] [address] [place] Dipstick and Microscopicon 0 03-06-2023 Appearance (U) Clear Normal Clear [facility] Comment on above: Order Comment: Name Collection Type:: Clean-Voided Midstream Performed By: #### A DDONUAPLUS #### [place] [address] [place] Bacteria,Urine 1+ High None Seen [facility] Comment on above: Order Comment: Name Collection Type:: Clean-Voided Midstream Performed By: #### A DDONUAPLUS #### [place] [address] [place] Bilirubin,Urine Negative Normal Negative [facility] Comment on above: Order Comment: Name Collection Type:: Clean-Voided Midstream Performed By: #### A DDONUAPLUS #### [place] [address] [place] Color (U) Yellow Normal Yellow [facility] Comment on above: Order Comment: Name Collection Type:: Clean-Voided Midstream Performed By: #### A DDONUAPLUS #### [facility] [address] [place] [address] [place] Glucose Ql (U) Normal Normal Normal [facility] Comment on above: Order Comment: Name Collection Type:: Clean-Voided Midstream Performed By: #### A DDONUAPLUS #### [place] [address] [place] Hyaline Casts,Urine None Seen Normal 0- [facility] Comment on above: Order Comment: Name Collection Type:: Clean-Voided Midstream Result Comment: PERF ORMED BY: [place] [address] PATHOLOGIST ROD DRAWER RAQUEL LOPEZ M.D. Performed By: #### A DDONUAPLUS #### [facility] [address] [place] [address] [place] Ketones Ql (U) Trace High Negative [facility] Comment on above: Order Comment: Name Collection Type:: Clean-Voided Midstream Performed By: #### A DDONUAPLUS #### [address] Leukocyte esterase Test strip Ql (U) 1+ High Negative [facility] Comment on above: Order Comment: Name Collection Type:: Clean-Voided Midstream Performed By: #### A DDONUAPLUS #### [place] [address] [place] Nitrite,Urine Negative Normal Negative [facility] Comment on above: Order Comment: Name Collection Type:: Clean-Voided Midstream Performed By: #### A DDONUAPLUS #### [place] [address] [place] Occult Blood,Urine Negative Normal Negative [facility] Comment on above: Order Comment: Name Collection Type:: Clean-Voided Midstream Result Comment: PERF ORMED BY: [place] [address] PATHOLOGIST ROD DRAWER RAQUEL LOPEZ M.D. Performed By: #### A DDONUAPLUS #### [place] [address] [place] pH (U) 6.0 [pH] Normal 5.0-9.0 [facility] Comment on above: Order Comment: Name Collection Type:: Clean-Voided Midstream Performed By: #### A DDONUAPLUS #### [place] [address] [place] Protein,Urine Negative Normal Negative [facility] Comment on above: Order Comment: Name Collection Type:: Clean-Voided Midstream Performed By: #### A DDONUAPLUS #### [place] [address] [place] RBC,Urine None Seen Normal 0-4 [facility] Comment on above: Order Comment: Name Collection Type:: Clean-Voided Midstream Performed By: #### A DDONUAPLUS #### [address] Renal Epithelial Cells,Urine Rare Normal 0-1 [facility] Comment on above: Order Comment: Name Collection Type:: Clean-Voided Midstream Performed By: #### A DDONUAPLUS #### [address] Specificy [place],Urine 1.015 Normal 1.001-1.03 0 [facility] Comment on above: Order Comment: Name Collection Type:: Clean-Voided Midstream Performed By: #### A DDONUAPLUS #### [address] Squamous Epithelial Cell,Urine 3-4 High 0-2 [facility] Comment on above: Order Comment: Name Collection Type:: Clean-Voided Midstream Performed By: #### A DDONUAPLUS #### [address] Urobilinogen,Urine Normal Normal Normal [facility] Comment on above: Order Comment: Name Collection Type:: Clean-Voided Midstream Performed By: #### A DDONUAPLUS #### [address] WBC,Urine 3-4 Normal 0-4 [facility] Comment on above: Order Comment: Name Collection Type:: Clean-Voided Midstream Performed By: #### A DDONUAPLUS #### [address] ECH echo transthoracicon ECH echo transthoracic [facility] [place] [address] Echocardiogram Signed Patient: Steven Harding MR#: [id number] 1 : 1940 Acct:[id number] Age/Sex: 83 / F ADM Date: 03/05/23 Loc: Room: [address] [place] [address] Type: ADM INOo Attending Dr: Chuck Chacon MD Ordering Provider: Jemal Jones MD Date of Service: 03/06/23 ECH/ECH echo transthoracic: Dizziness Copies to: MD Jemal Tello MD Weight: 140 lb Performed By: FREDDIE Vallejo BSA: 1.6 m2 BP: 160/69 mmHg HR: 75 Reason For Study: Dizziness History: aortic aneurysm, HTN, LA, pre-DM, PCI, former smoker, CAD Interpretation Summary Ejection Fraction = 55-60%. The left ventricular size, thickness and function are normal The left ventricular wall motion is normal. A variety of Doppler measurements indicate impaired left ventricular relaxation, which is associated with grade I/IV or mild diastolic dysfunction. There is trace mitral regurgitation. There is trace tricuspid regurgitation. Pulmonary pressure is borderline elevated Compared to prior study, changes are noted. LVEF is better and the previously described regional motion abnormality is no longer present. Procedure/Quality: A two-dimensional transthoracic echocardiogram with color flow and Doppler was performed. The study was technically fair in quality. Left Ventricle: The left ventricular size, thickness and function are normal. Ejection Fraction = 55-60%. A variety of Doppler measurements indicate impaired left ventricular relaxation, which is associated with grade I/IV or mild diastolic dysfunction. The left ventricular wall motion is normal. Left Atrium: The left atrium appears normal in size. Right Atrium: The right atrium appears normal in size. Right Ventricle: The right ventricular size, thickness and function are normal. Aortic Valve: The aortic valve is normal in structure and function. No aortic regurgitation is present. Mitral Valve: The mitral valve is normal in structure and function. There is trace mitral regurgitation. Tricuspid Valve: The tricuspid valve is normal in structure and function. There is trace tricuspid regurgitation. Pulmonary pressure is borderline elevated. Pulmonic Valve: The pulmonic valve is normal in structure and function. Arteries: The aortic root is normal size. Pericardium/Pleura: No pericardial effusion seen. There is no pleural effusion. IVC/Hepatic Viens: The inferior vena cava is normal in size, with a normal collapsibility index. Measurements with Normals IVSd: 1.1 cm (0.7-1.1 cm)LVIDd: 4.5 cm (3.7-5.4 cm) LVPWd: 1.0 cm (0.7-1.1 cm)LVIDs: 3.4 cm (2.3-3.6 cm) LA dimension: 3.6 cm (2.3-4.0 cm)Ao root diam: 2.8 cm(2.0-3.6 cm) asc Aorta Diam: 3.1 cm(2.1-3.4cm) Doppler with Normals RVSP(TR): 32.2 mmHg (18-35mmHg) LV V1 max: 82.7 cm/sec (0.7-1.7m/s)MV E max lizette: 76.3 cm/sec(0.8-1.3m/s) MV A max lizette: 114.8 cm/sec(0.0-0.0m/s) MV E/A: 0.66 (<1.5) MMode/2D Measurements Calculations RVDd: 3.5 cm FS: 25.4 % Ao root area: LVOT diam: 2.1 cm TAPSE: 2.2 cm EDV(Teich): 6.2 cm2 LVOT area: 3.4 cm2 RV S Lizette: 93.9 ml 11.2 cm/sec ESV(Teich): 46.8 ml EF(Teich): 50.2 % __ LVLd ap4: 6.6 cm SV(MOD-sp4): LAV(MOD-sp4): LA A2 area: 15.4 cm2 EDV(MOD-sp4): 36.3 ml 18.1 ml 52.7 ml LAV(MOD-sp2): LA A4 area: 9.6 cm2 LVLs ap4: 5.7 cm 41.4 ml LA length (vol): ESV(MOD-sp4): 4.1 cm 16.4 ml LA vol: 30.8 ml EF(MOD-sp4): 68.9 % LA vol index: 18.8 ml/m2 Doppler Measurements Calculations MV dec time: E/E' lat: 16.2 MV dec slope: Ao V2 max: 0.17 sec E/E' med: 13.6 146.0 cm/sec 437.6 cm/sec2 Ao max P.5 mmHg Ao mean P.9 mmHg Ao V2 mean: 108.0 cm/sec Ao V2 VTI: 33.9 cm PORFIRIO(I,D): 2.2 cm2 PORFIRIO(V,D): 1.9 cm2 __ LV V1 max PG: TV max PG: TR max lizette: 2.7 mmHg 27.0 mmHg 260.9 cm/sec LV V1 mean PG: TR max P.2 mmHg 1.3 mmHg RAP systole: 5.0 mmHg LV V1 mean: 51.6 cm/sec LV V1 VTI: 22.1 cm Transcribed By: ROB Performed At: 03/06/23 1029 Signed By: Yassine Dougherty MD 03/06/23 1231 Normal [facility] Free T4 (Free Thyroxine)on 03-06-2023 Free T4 [Mass/Vol] 1.01 ng/dL Normal 0.61-1.12 [facility] Comment on above: Performed By: #### B [employer] MACHINE REPAIRER, BMP, PT, PTT, HS TROP, CBC, TSH3, CK #### [facility] [address] Globulin Calc (S) [Mass/Vol] Ordered By: Jemal Jones on 03-06-2023 Globulin (S) [Mass/Vol] 2.3 g/dL [facility] Glucose Glucometer (BldC) [M ass/Vol]Ordered By: Jemal Jones on 03-06-2023 Glucose [Mass/Vol] 104 mg/dL [facility] Comment on above: Random Glucose Refer ence Range is dependent on time and content of last meal. Glucose of more than 200 mg/dL in a nonstressed, ambulatory subject supports the diagnosis of Diabetes Mellitus. Glucose Poct Glucometerson 03-06-2023 Glucose [Mass/Vol] 104 mg/dL Normal [facility] Comment on above: Result Comment: [facility] Glucose Reference Range is dependent on time and content of last meal. Glucose of more than 200 mg/dL in a nonstressed, ambulatory subject supports the diagnosis of Diabetes Mellitus. PERFORMED BY: [place] [address] PATHOLOGIST ROD DRAWER RAQUEL LOPEZ M.D. Performed By: #### B [employer]GE SHOP MACHINE REPAIRER, BMP, PT, PTT, HS TROP, CBC, TSH3, CK #### [address] Glucose mean value [Mass/vol ume] in Blood Estimated from glycated hemoglobinOrdered By: Jemal Jones on 03-06-2023 Average glucose Estimated from glycated hemoglobin (Bld) [Mass/Vol] 120 mg/dL [facility] Hemoglobin A1c percentageOrd ered By: Jemal Jones on 03-06-2023 HbA1c (Bld) [Mass fraction] 5.8 % 4.3-5.6 [facility] Comment on above: Increased risk for d iabetes: 5.7 - 6.4diabetes: >6.4glycemic control for adults with diabetes: <7.0 Lipid Panelon 03-06-2023 Cholesterol [Mass/Vol] 88 mg/dL Low 140-200 [facility] Comment on above: Result Comment: Chol less than 200 mg/dl low risk Chol 201-239 mg/dl borderline risk Chol 240 mg/dl and greater high risk Performed By: #### B [employer] MACHINE REPAIRER, BMP, PT, PTT, HS TROP, CBC, TSH3, CK #### [address] Cholesterol in HDL [Mass/Vol] 42 mg/dL Normal 23-92 [facility] Comment on above: Result Comment: HDL CHOL ATP-III CLASSIFICATION Cardiovascular Risk HDL > or equal to 60 mg/dL LOW HDL < 40 mg/dL HIGH Performed By: #### B [employer] MACHINE REPAIRER, BMP, PT, PTT, HS TROP, CBC, TSH3, CK #### [facility] [address] [place] [address] [facility] Cholesterol.total/Chol esterol in HDL [Mass ratio] 2.1 {ratio} Normal <5.0 [facility] Comment on above: Performed By: #### B [employer] MACHINE REPAIRER, BMP, PT, PTT, HS TROP, CBC, TSH3, CK #### [facility] [address] LDL Cholesterol,Calculated 29 mg/dL Normal 0-100 [facility] Comment on above: Result Comment: LDL ATP III CLASSIFICATION LDL less than 100 mg/dL Optimal LDL 100-129 mg/dL Near or above optimal LDL 130-159 mg/dL Borderline high LDL 160-189 mg/dL High LDL greater than 189 mg/dL Very high Performed By: #### B FOR[employer] SH[employer] MACHINE REPAIRER, BMP, PT, PTT, HS TROP, CBC, TSH3, CK #### [facility] [address] Triglyceride w/Reflex 84 mg/dL Normal 0-149 [facility] Comment on above: Result Comment: TRIG ATP III CLASSIFICATION TRIG less than 150 mg/dL Normal TRIG 150-199 mg/dL Borderline high TRIG 200-500 mg/dL High TRIG greater than 500 mg/dL Very high Standard traceable to the Center for Disease Conrtrol and Prevention (CDC) test method. Performed By: #### B FOR[employer] SH[employer] MACHINE REPAIRER, BMP, PT, PTT, HS TROP, CBC, TSH3, CK #### [facility] [address] VLDL CHOLESTEROL 16 mg/dL Normal [facility] Comment on above: Performed By: #### B [employer] MACHINE REPAIRER, BMP, PT, PTT, HS TROP, CBC, TSH3, CK #### [facility] [address] Magnesiumon 03-06-2023 Magnesium [Mass/Vol] 1.4 mg/dL Low 1.9-2.7 [facility] Comment on above: Performed By: #### B FOR[employer] SHOP MACHINE REPAIRER, BMP, PT, PTT, HS TROP, CBC, TSH3, CK #### [facility] [address] Protein [Mass/volume] in Ser um or PlasmaOrdered By: Jemal Jones on 03-06-2023 Protein [Mass/Vol] 6.6 g/dL 6.4-8.9 [facility] Serum or plasma albumin/glob ulin mass ratioOrdered By: Jemal Jones on 03-06-2023 Albumin/Globulin [Mass ratio] 1.9 {ratio} [facility] Serum or plasma high density lipoprotein (HDL) cholesterol measurementOrdered By: Jemal Jones on 03-06-2023 Cholesterol in HDL [Mass/Vol] 42 mg/dL 23-92 [facility] Comment on above: HDL CHOL ATP-III CLA SSIFICATION Cardiovascular RiskHDL > or equal to 60 mg/dL LOWHDL < 40 mg/dL HIGH Serum or plasma total choles terol/high density lipoprotein (HDL) cholesterol mass ratOrdered By: Jemal Jones on 03-06-2023 Cholesterol.total/Chol esterol in HDL [Mass ratio] 2.1 {ratio} <5.0 [facility] Thyroxine (T4) free [Mass/vo lume] in Serum or PlasmaOrdered By: Jemal Jones on 03-06-2023 Free T4 [Mass/Vol] 1.01 ng/dL 0.61-1.12 [facility] Triglyceride [Mass/volume] i n Serum or PlasmaOrdered By: Jemal Jones on 03-06-2023 Triglyceride [Mass/Vol] 84 mg/dL 0-149 [facility] Comment on above: TRIG ATP III CLASSIF ICATIONTRIG less than 150 mg/dL NormalTRIG 150-199 mg/dL Borderline highTRIG 200-500 mg/dL High TRIG greater than 500 mg/dL Very highStandard traceable to the Center for Disease Conrtrol and Prevention (CDC) test method. Triiodothyronine (T3) Totalo n 03-06-2023 Triiodothyronine (T3) Total 1.29 ng/mL Normal 0.87-1.78 [facility] Comment on above: Result Comment: PERF ORMED BY: [facility] [address] [place] [address] PATHOLOGIST ROD DRAWER RAQUEL LOPEZ M.D. Performed By: #### B [employer] SH[employer] MACHINE REPAIRER, BMP, PT, PTT, HS TROP, CBC, TSH3, CK #### [facility] [address] [place] [id number] [facility] Triiodothyronine (T3) [Mass/ volume] in Serum or PlasmaOrdered By: Jemal Jones on 03-06-2023 T3 [Mass/Vol] 1.29 ng/mL 0.87-1.78 [facility] US carotid doppler BIon 02-11 US carotid doppler BI [facility] [address] [place] [address] [place] [address] Ultrasound Report Signed Patient: Steven Harding MR#: [id number] 1 : 1940 Acct:[id number] Age/Sex: 83 / F ADM Date: 03/05/23 Loc: Room: [address] [place] [address] Type: ADM INOo Attending Dr: Chuck Chacon MD Ordering Provider: Jemal Jones MD Date of Service: 03/06/23 US/US carotid doppler BI: dizziness Copies to: MD Jemal Beltran MD CAROTID DUPLEX INDICATION: Vertigo PROCEDURE: Color-flow duplex scanning is used to interrogate the extracranial carotid arterial system, as well as both vertebral arteries. Both carotid bifurcations show some smooth homogeneous plaque formation. The proximal right internal carotid artery shows a highest peak systolic velocity of 124 cm/s with an end-diastolic velocity of 25.9 cm/s . The mid internal carotid artery measures 128 cm/s peak systolic with an end diastolic velocity of 22.4 cm/s . The distal segment measures 100 cm/s peak systolic with an end diastolic velocity of 16.8 cm/s . The velocities of the right common carotid artery are 52.1 cm/s peak systolic and 9.83 cm/s end-diastolic and 51 cm/s peak systolic and 9.8 cm/s end diastolic distally. The peak systolic velocity ratio of the internal to the common carotid artery is 2.51 . The external carotid artery measures 109 cm/s peak systolic. The right vertebral artery is patent at 34.9 cm/s peak systolic with antegrade flow. The proximal left internal carotid artery shows a highest peak systolic velocity of 49.4 cm/s with an end-diastolic velocity of 10.5 cm/s . The mid internal carotid artery measures 76.2 cm/s peak systolic with an end diastolic velocity of 17.2 cm/s . The distal segment measures 79.1 cm/s peak systolic with an end diastolic velocity of 17.2 cm/s . The velocities of the left common carotid artery are 63.5 cm/s peak systolic and 11 cm/s end-diastolic and 57.1 cm/s peak systolic and 10.2 cm/s end diastolic distally. The peak systolic velocity ratio of the internal to the common carotid artery is 1.39 . The external carotid artery measures 122 cm/s peak systolic. The left vertebral artery is patent at 45.5 cm/s peak systolic with antegrade flow. US/US carotid doppler BI IMPRESSION: Moderately severe plaque formation of the right internal carotid artery origin with less than 50% stenosis. No hemodynamically significant stenosis at the left internal carotid artery origin. Both vertebral arteries are patent with antegrade flow. Impression dictated by: Bethel Sabillon M.D.03/06/2023 2:21 PM Dictation Location: [facility] Tech: Marla Cottrell Transcribed By: OSCAR 03/06/23 1421 Dictated By: Bethel Sabillon MD 03/06/23 1419 Signed By: 03/06/23 1421 Normal [facility] Activated partial thrombopla stin time (aPTT) in platelet poor plasma by coagulation aOrdered By: Monique Tierney on 03-05-2023 aPTT Coag (PPP) [Time] 25.4 s 25.1-36.5 [facility] Comment on above: A hematocrit value g reater than 55% may lead to inaccurate results in coagulation testing. Patients having hematocrit values >55% require a special collection tube for coagulation studies. Please contact the laboratory at [phone] for redraw instructions. Automated epithelial cells c ount in urine sediment (number/area)Ordered By: Jemal Jones on 03-05-2023 Epithelial cells Auto (Urine sed) [#/Area] 3-4 [HPF] 0-2 [facility] Automated erythrocytes count in urine sediment (number/area)Ordered By: Jemal Jones on 03-05-2023 RBC Auto (Urine sed) [#/Area] None seen [HPF] 0-4 [facility] Automated leukocytes count i n urine sediment (number/area)Ordered By: Jemal Velar on 03-05-2023 WBC Auto (Urine sed) [#/Area] 3-4 [HPF] 0-4 [facility] Automated urine hyaline cast s count (number/volume)Ordered By: Jemal Daromar on 03-05-2023 Hyaline casts Auto (U) [#/Vol] None seen [LPF] 0-1 [facility] B-Type Natriuretic Peptideon 03-05-2023 Natriuretic peptide B (Bld) [Mass/Vol] 42.0 pg/mL Normal 5-100 [facility] Comment on above: Result Comment: PERF ORMED BY: [place] [address] PATHOLOGIST ROD DRAWER RAQUEL LOPEZ M.D. Performed By: #### B [employer] MACHINE REPAIRER, BMP, PT, PTT, HS TROP, CBC, TSH3, CK #### [address] Basic Metabolic Panelon 02-11 Anion gap [Moles/Vol] 17.1 mmol/L High 6.0-15.0 [facility] Comment on above: Performed By: #### B [employer] MACHINE REPAIRER, BMP, PT, PTT, HS TROP, CBC, TSH3, CK #### [address] Calcium [Mass/Vol] 9.7 mg/dL Normal 8.6-10.3 [facility] Comment on above: Performed By: #### B [employer] MACHINE REPAIRER, BMP, PT, PTT, HS TROP, CBC, TSH3, CK #### [place] [address] [place] Chloride [Moles/Vol] 93 mmol/L Low 98-107 [facility] Comment on above: Performed By: #### B [employer] MACHINE REPAIRER, BMP, PT, PTT, HS TROP, CBC, TSH3, CK #### [place] [address] [place] CO2 [Moles/Vol] 19.4 mmol/L Low 21.0-31.0 [facility] Comment on above: Performed By: #### B [employer] MACHINE REPAIRER, BMP, PT, PTT, HS TROP, CBC, TSH3, CK #### [facility] [address] Creatinine [Mass/Vol] 0.84 mg/dL Normal 0.60-1.20 [facility] Comment on above: Performed By: #### B [employer] MACHINE REPAIRER, BMP, PT, PTT, HS TROP, CBC, TSH3, CK #### [facility] [address] Creatinine Clr Calc Pharmacy 46.72 [facility] Comment on above: Performed By: #### B [employer] MACHINE REPAIRER, BMP, PT, PTT, HS TROP, CBC, TSH3, CK #### [facility] [address] [place] [address] [place] GFR/1.73 sq M.predicted MDRD (S/P/Bld) [Vol rate/Area] mL/min/{1.73_m2} [facility] Comment on above: Performed By: #### B [employer] MACHINE REPAIRER, BMP, PT, PTT, HS TROP, CBC, TSH3, CK #### [facility] [address] Glucose [Mass/Vol] 85 mg/dL Normal 70-100 [facility] Comment on above: Result Comment: [place] Glucose Reference Range is dependent on time and content of last meal. Glucose of more than 200 mg/dL in a nonstressed, ambulatory subject supports the diagnosis of Diabetes Mellitus. ADA recommended reference range Performed By: #### B [employer] MACHINE REPAIRER, BMP, PT, PTT, HS TROP, CBC, TSH3, CK #### [facility] [address] Potassium [Moles/Vol] 4.5 mmol/L Normal 3.5-5.1 [facility] Comment on above: Performed By: #### B [employer] MACHINE REPAIRER, BMP, PT, PTT, HS TROP, CBC, TSH3, CK #### [facility] [address] Sodium [Moles/Vol] 125 mmol/L Low 136-145 [facility] Comment on above: Performed By: #### B [employer] MACHINE REPAIRER, BMP, PT, PTT, HS TROP, CBC, TSH3, CK #### [facility] [address] Urea nitrogen [Mass/Vol] 17 mg/dL Normal 7-25 [facility] Comment on above: Performed By: #### B [employer] MACHINE REPAIRER, BMP, PT, PTT, HS TROP, CBC, TSH3, CK #### [facility] [address] Basophils Auto (Bld) [#/Vol] Ordered By: Monique Tierney on 03-05-2023 Basophils (Bld) [#/Vol] 0.1 10*3/uL 0.0-0.2 [facility] Basophils/100 WBC Auto (Bld) Ordered By: Monique Tierney on 03-05-2023 Basophils/100 WBC (Bld) 0.5 % . [facility] Bilirubin Test strip Ql (U)O rdered By: Jemal Jones on 03-05-2023 Bilirubin Ql (U) Negative Negative [facility] CT angio neckon 03-05-2023 CT angio neck [facility] [place] [address] [place] [address] CT Scan Report Signed Patient: Steven Harding MR#: [id number] 1 : 1940 Acct:[id number] Age/Sex: 83 / F ADM Date: 03/05/23 Loc: ER Room: Type: [facility] ER Attending Dr: Copies to: Monique Tierney MD Ordering Provider: Monique Tierney MD Date of Service: 03/05/23 CT/CT angio neck: episodic dizziness, episode 2 wks ago face tinglin ([id number]) CT/CT angio head: episodic dizziness, episode 2 wks ago face tinglin CTA Head and Neck TECHNIQUE: Axial imaging of the head and neck with 2-D and 3-D reconstruction. 70cc of Isovue-370. The CT exam was performed using one or more the following dose reduction techniques: Automated exposure control, adjustment of the MA and/or Kv according to patient size, or use of the iterative reconstruction technique. Stenoses were measured using the NASCET criteria. COMPARISON: None HISTORY: Dizziness and difficulty walking for 3 weeks The visualized aortic arch and great vessels are unremarkable. Subclavian arteries are patent Calcified noncalcified plaquing of the carotid bifurcation the right present with 50-60% stenosis of the origin of the internal carotid artery on the right. Calcified plaquing of the bifurcation of the left carotid artery with less than 50% narrowing of the origin of the left internal carotid artery. No vertebral dissection, occlusion or abrupt cut off identified. The carotid siphons and vertebral basilar systems are patent. Atherosclerosis of carotid bifurcations. No significant narrowing. No intracranial aneurysm, dissection, abrupt cut off or critical stenosis identified.. . 2.1 cm homogeneously enhancing lobular lesion of the right parotid gland. Cervical spine degenerative change. CT/CT angio head IMPRESSION: 50-60% narrowing of the origin of the right internal carotid artery. Less than 50% narrowing of the origin of the left internal carotid artery. 2.1 cm homogeneously enhancing lobular lesion of the right parotid gland. Impression dictated by: Bethel Snyder M.D.03/05/2023 7:34 PM Dictation Location: [place] [address] Transcribed By: [facility] 03/05/231933 Dictated By: Bethel Snyder DO 03/05/231928 Signed By: 03/05/231933 [facility] CT head/brain wo conon 03-05 CT head/brain wo con [facility] [place] [address] CT Scan Report Signed Patient: Steven Harding MR#: [id number] 1 : 1940 Acct:[id number] Age/Sex: 83 / F ADM Date: 03/05/23 Loc: ER Room: Type: [facility] ER Attending Dr: Copies to: Monique Tierney MD Ordering Provider: Monique Tierney MD Date of Service: 03/05/23 CT/CT head/brain wo con: episodic dizziness, episode 2 wks ago face tinglin Unenhanced head CT TECHNIQUE: Contiguous axial imaging of the head. The CT exam was performed using one or more the following dose reduction techniques: Automated exposure control, adjustment of the MA and/or Kv according to patient size, or use of the iterative reconstruction technique. COMPARISON: None HISTORY: Dizziness. Difficulty walking. VENTRICLES: Within normal limits ATROPHY: Mild atrophy BRAIN PARENCHYMA: Decreased density of the white matter is most consistent with chronic small vessel disease. HEMORRHAGE: None HERNIATION: No mass effect or herniation INFARCTION: No recent vascular distribution infarction is seen. EXTRA-AXIAL FLUID COLLECTIONS None MIDBRAIN: Unremarkable SANTIAGO: Unremarkable MEDULLA: Unremarkable SINUSES: Unremarkable ORBITS: Grossly unremarkable MASTOIDS: Unremarkable BONY STRUCTURES Intact ADDITIONAL FINDINGS: CT/CT head/brain wo con IMPRESSION: No acute intracranial findings. Impression dictated by: Bethel Snyder M.D.03/05/2023 7:29 PM Dictation Location: [place] [address] Transcribed By: [facility] 03/05/231928 Dictated By: Bethel Snyder DO 03/05/231927 Signed By: 03/05/231928 Normal [facility] Calcium [Mass/volume] in Ser um or PlasmaOrdered By: Monique Tierney on 03-05-2023 Calcium [Mass/Vol] 9.7 mg/dL 8.6-10.3 [facility] Carbon dioxide, total [Moles /volume] in Serum or PlasmaOrdered By: Monique Tierney on 03-05-2023 CO2 [Moles/Vol] 19.4 mmol/L 21.0-31.0 [facility] Chloride [Moles/volume] in S yamilex or PlasmaOrdered By: Monique Tierney on 03-05-2023 Chloride [Moles/Vol] 93 mmol/L 98-107 [facility] Color Auto (U)Ordered By: Sukhi Jones on 03-05-2023 Color (U) Yellow Yellow [facility] Complete Blood Count Auto Di ffon 03-05-2023 Basophils (Bld) [#/Vol] 0.1 10*3/uL Normal 0.0-0.2 [facility] Comment on above: Result Comment: PERF ORMED BY: [facility] [address] [address] PATHOLOGIST ROD DRAWER JIANLAN SUN M.D. Performed By: #### B [employer] MACHINE REPAIRER, BMP, PT, PTT, HS TROP, CBC, TSH3, CK #### [address] Basophils/100 WBC (Bld) 0.5 % Normal . [facility] Comment on above: Performed By: #### B [employer] MACHINE REPAIRER, BMP, PT, PTT, HS TROP, CBC, TSH3, CK #### [address] Eosinophils (Bld) [#/Vol] 0.3 10*3/uL Normal 0.0-0.45 [facility] Comment on above: Performed By: #### B [employer] MACHINE REPAIRER, BMP, PT, PTT, HS TROP, CBC, TSH3, CK #### [address] Eosinophils/100 WBC (Bld) 2.8 % Normal . [facility] Comment on above: Performed By: #### B [employer] MACHINE REPAIRER, BMP, PT, PTT, HS TROP, CBC, TSH3, CK #### [address] Erythrocyte distribution width (RBC) [Ratio] 12.8 % Normal 11.9-15.3 [facility] Comment on above: Performed By: #### B [employer] MACHINE REPAIRER, BMP, PT, PTT, HS TROP, CBC, TSH3, CK #### [address] Hematocrit (Bld) [Volume fraction] 39.9 % Normal 34.0-46.4 [facility] Comment on above: Performed By: #### B [employer] MACHINE REPAIRER, BMP, PT, PTT, HS TROP, CBC, TSH3, CK #### [address] Hemoglobin (Bld) [Mass/Vol] 13.6 g/dL Normal 11.8-15.4 [facility] Comment on above: Performed By: #### B [employer] MACHINE REPAIRER, BMP, PT, PTT, HS TROP, CBC, TSH3, CK #### [address] Lymphocytes (Bld) [#/Vol] 1.7 10*3/uL Normal 1.00-4.8 [facility] Comment on above: Performed By: #### B [employer] MACHINE REPAIRER, BMP, PT, PTT, HS TROP, CBC, TSH3, CK #### [address] Lymphocytes/100 WBC (Bld) 14.7 % Normal . [facility] Comment on above: Performed By: #### B [employer] MACHINE REPAIRER, BMP, PT, PTT, HS TROP, CBC, TSH3, CK #### [address] MCH (RBC) [Entitic mass] 31.3 pg Normal 24.7-34.3 [facility] Comment on above: Performed By: #### B [employer] MACHINE REPAIRER, BMP, PT, PTT, HS TROP, CBC, TSH3, CK #### [address] MCV (RBC) [Entitic vol] 91.9 fL Normal 80-100 [facility] Comment on above: Performed By: #### B [employer] MACHINE REPAIRER, BMP, PT, PTT, HS TROP, CBC, TSH3, CK #### [address] Mean Corpuscular HGB Conc 34.0 g/dL Normal 32.0-35.0 [facility] Comment on above: Performed By: #### B [employer] MACHINE REPAIRER, BMP, PT, PTT, HS TROP, CBC, TSH3, CK #### [address] Monocytes (Bld) [#/Vol] 0.6 10*3/uL Normal 0.0-0.8 [facility] Comment on above: Performed By: #### B [employer] MACHINE REPAIRER, BMP, PT, PTT, HS TROP, CBC, TSH3, CK #### [address] Monocytes/100 WBC (Bld) 18.39 % Normal 0.00-20.00 [facility] Comment on above: Performed By: #### B [employer] MACHINE REPAIRER, BMP, PT, PTT, HS TROP, CBC, TSH3, CK #### [facility] [address] Monocytes/100 WBC (Bld) 5.4 % Normal . [facility] Comment on above: Performed By: #### B FOR[employer] MACHINE REPAIRER, BMP, PT, PTT, HS TROP, CBC, TSH3, CK #### [facility] [address] Neutrophils (Bld) [#/Vol] 8.7 10*3/uL High 1.8-7.7 [facility] Comment on above: Performed By: #### B FOR[employer] MACHINE REPAIRER, BMP, PT, PTT, HS TROP, CBC, TSH3, CK #### [facility] [address] Neutrophils/100 WBC (Bld) 76.6 % Normal . [facility] Comment on above: Performed By: #### B FOR[employer] MACHINE REPAIRER, BMP, PT, PTT, HS TROP, CBC, TSH3, CK #### [facility] [address] NRBC% 0.1 /100{WBC} Normal 0-0.5 [facility] Comment on above: Performed By: #### B FOR[employer] MACHINE REPAIRER, BMP, PT, PTT, HS TROP, CBC, TSH3, CK #### [address] Platelet mean volume (Bld) [Entitic vol] 7.5 fL Normal 6.3-10.7 [facility] Comment on above: Performed By: #### B FOR[employer] MACHINE REPAIRER, BMP, PT, PTT, HS TROP, CBC, TSH3, CK #### [facility] [address] Platelets (Bld) [#/Vol] 285 10*3/uL Normal 150-450 [facility] Comment on above: Performed By: #### B FOR[employer] MACHINE REPAIRER, BMP, PT, PTT, HS TROP, CBC, TSH3, CK #### [address] RBC (Bld) [#/Vol] 4.34 10*6/uL Normal 3.60-5.00 [facility] Comment on above: Performed By: #### B FOR[employer] MACHINE REPAIRER, BMP, PT, PTT, HS TROP, CBC, TSH3, CK #### [address] WBC (Bld) [#/Vol] 11.4 10*3/uL Normal 3.8-11.6 [facility] Comment on above: Performed By: #### B FOR[employer] MACHINE REPAIRER, BMP, PT, PTT, HS TROP, CBC, TSH3, CK #### [address] Creatine Kinaseon 03-05-2023 CK [Catalytic activity/Vol] 18 U/L Low [facility] Comment on above: Performed By: #### B [employer] MACHINE REPAIRER, BMP, PT, PTT, HS TROP, CBC, TSH3, CK #### [address] Creatine kinase [Enzymatic a ctivity/volume] in Serum or PlasmaOrdered By: Monique Tierney on 03-05-2023 CK [Catalytic activity/Vol] 18 U/L [facility] Creatinine [Mass/volume] in Serum or PlasmaOrdered By: Monique Tierney on 03-05-2023 Creatinine [Mass/Vol] 0.84 mg/dL 0.60-1.20 [facility] ECG 12 lead ECGon 03-05-2023 ECG 12 lead ECG [facility] [place] [address] [place] [address] Electrocardiograph Report Signed Patient: Steven Harding MR#: [id number] 1 : 1940 Acct:[id number] Age/Sex: 83 / F ADM Date: 03/05/23 Loc: Room: [address] [place] [address] Type: ADM INOo Attending Dr: Cuhck Chacon MD Ordering Provider: Monique Tierney MD Date of Service: 03/05/23 ECG/ECG 12 lead ECG: Dizziness Copies to: Test Reason : Blood Pressure : 155/066 mmHG Vent. Rate : 086 BPM Atrial Rate : 086 BPM P-R Int : 152 ms QRS Dur : 082 ms QT Int : 346 ms P-R-T Axes : 073 -47 071 degrees QTc Int : 414 ms Sinus rhythm with premature atrial complexes Left anterior fascicular block Confirmed by Hoang Mancia DO ([id number]) on 03/06/2023 8:08:36 PM Referred By: Electronically Signed By:Hoang Mancia DO Transcribed By: MUS Signed By Hoang Mancia DO 2007 Normal [facility] Eosinophils Auto (Bld) [#/Vo l]Ordered By: Monique Tierney on 03-05-2023 Eosinophils (Bld) [#/Vol] 0.3 10*3/uL 0.0-0.45 [facility] Eosinophils/100 WBC Auto (Bl d)Ordered By: Monique Tierney on 03-05-2023 Eosinophils/100 WBC (Bld) 2.8 % . [facility] Erythrocyte distribution wid th Auto (RBC) [Ratio]Ordered By: Monique Tierney on 03-05-2023 Erythrocyte distribution width (RBC) [Ratio] 12.8 % 11.9-15.3 [facility] Glucose [Mass/volume] in Ser um or PlasmaOrdered By: Monique Tierney on 03-05-2023 Glucose [Mass/Vol] 85 mg/dL 70-100 [facility] Comment on above: ADA recommended refe rence rangeRandom Glucose Reference Range is dependent on time and content of last meal. Glucose of more than 200 mg/dL in a nonstressed, ambulatory subject supports the diagnosis of Diabetes Mellitus. Hematocrit Auto (Bld) [Volum e fraction]Ordered By: Monique Tierney on 03-05-2023 Hematocrit (Bld) [Volume fraction] 39.9 % 34.0-46.4 [facility] Hemoglobin [Mass/volume] in BloodOrdered By: Monique Tierney on 03-05-2023 Hemoglobin (Bld) [Mass/Vol] 13.6 g/dL 11.8-15.4 [facility] INR in Platelet poor plasma by Coagulation assayOrdered By: Monique Tierney on 03-05-2023 INR Coag (PPP) [Relative time] 0.9 {INR} [facility] Comment on above: INR Therapeutic Rang e A) Pre- and Peroperative OAT started two weeks before surgery. NOT HIP SURGERY: 1.5 - 2.5 HIP SURGERY: 2 - 3B) Primary and secondary prevention of venous THROMBOSIS: 2 - 3C) Active venous thrombosis, pulmonary embolismand prevention of recurrent venous thrombosis: 2 - 3D) Prevention of arterial thromboembolismincluding patients with mechanical heart valves: 3 - 4.5 Ketones Auto test strip (U) [Mass/Vol]Ordered By: Jemal Jones on 03-05-2023 Ketones (U) [Mass/Vol] Trace Negative [facility] Leukocytes [#/volume] correc jazmyne for nucleated erythrocytes in Blood by Automated counOrdered By: Monique Tierney on 03-05-2023 WBC corrected for nucl RBC Auto (Bld) [#/Vol] 11.4 10*3/uL 3.8-11.6 [facility] Lymphocytes Auto (Bld) [#/Vo l]Ordered By: Monique Tierney on 03-05-2023 Lymphocytes (Bld) [#/Vol] 1.7 10*3/uL 1.00-4.8 [facility] Lymphocytes/100 WBC Auto (Bl d)Ordered By: Monique Tierney on 03-05-2023 Lymphocytes/100 WBC (Bld) 14.7 % . [facility] MCH Auto (RBC) [Entitic mass ]Ordered By: Monique Tierney on 03-05-2023 MCH (RBC) [Entitic mass] 31.3 pg 24.7-34.3 [facility] MCHC Auto (RBC) [Mass/Vol]Or dered By: Monique Tierney on 03-05-2023 MCHC (RBC) [Mass/Vol] 34.0 g/dL 32.0-35.0 [facility] MCV Auto (RBC) [Entitic vol] Ordered By: Monique Tierney on 03-05-2023 MCV (RBC) [Entitic vol] 91.9 fL 80-100 [facility] Monocyte distribution width [Entitic volume] in Blood by AutomatedOrdered By: Monique Tierney on 03-05-2023 Monocyte distribution width Auto (Bld) [Entitic vol] 18.39 % 0.00-20.00 [facility] Monocytes Auto (Bld) [#/Vol] Ordered By: Monique Tierney on 03-05-2023 Monocytes (Bld) [#/Vol] 0.6 10*3/uL 0.0-0.8 [facility] Monocytes/100 WBC Auto (Bld) Ordered By: Monique Tierney on 03-05-2023 Monocytes/100 WBC (Bld) 5.4 % . [facility] Natriuretic peptide B [Mass/ Vol]Ordered By: Monique Tierney on 03-05-2023 Natriuretic peptide B (Bld) [Mass/Vol] 42.0 pg/mL 5-100 [facility] Neutrophils Auto (Bld) [#/Vo l]Ordered By: Monique Tierney on 03-05-2023 Neutrophils (Bld) [#/Vol] 8.7 10*3/uL 1.8-7.7 [facility] Neutrophils/100 WBC Auto (Bl d)Ordered By: Monique Tierney on 03-05-2023 Neutrophils/100 WBC (Bld) 76.6 % . [facility] Nitrite Test strip Ql (U)Ord ered By: Jemal Jones on 03-05-2023 Nitrite Ql (U) Negative Negative [facility] No Panel InformationOrdered By: Monique Tierney on 03-05-2023 Estimated GFR (CKD-EPI) > 60.0 mL/Min [facility] Creatinine Clearance (Chem 46.72 [facility] Nucleated erythrocytes [Pres ence] in Blood by Automated countOrdered By: Monique Tierney on 03-05-2023 Nucleated RBC Auto Ql (Bld) 0.1 /100{WBC} 0-0.5 [facility] Partial Thromboplastin Timeo n 03-05-2023 aPTT Coag (Bld) [Time] 25.4 s Normal 25.1-36.5 [facility] Comment on above: Result Comment: A he matocrit value greater than 55% may lead to inaccurate results in coagulation testing. Patients having hematocrit values >55% require a special collection tube for coagulation studies. Please contact the laboratory at [phone] for redraw instructions. PERFORMED BY: [facility] [place] [address] PATHOLOGIST ROD DRAWER RAQUEL LOPEZ M.D. Performed By: #### B [employer] MACHINE REPAIRER, BMP, PT, PTT, HS TROP, CBC, TSH3, CK #### [facility] [address] [place] [id number] [facility] Platelet mean volume Auto (B ld) [Entitic vol]Ordered By: Monique Tierney on 03-05-2023 Platelet mean volume (Bld) [Entitic vol] 7.5 fL 6.3-10.7 [facility] Platelets Auto (Bld) [#/Vol] Ordered By: Monique Tierney on 03-05-2023 Platelets (Bld) [#/Vol] 285 10*3/uL 150-450 [facility] Potassium [Moles/volume] in Serum or PlasmaOrdered By: Monique Tierney on 03-05-2023 Potassium [Moles/Vol] 4.5 mmol/L 3.5-5.1 [facility] Protein Auto test strip (U) [Mass/Vol]Ordered By: Jemal Jones on 03-05-2023 Protein (U) [Mass/Vol] Negative Negative [facility] Prothrombin Time INRon 03-05 INR Coag (PPP) [Relative time] 0.9 {INR} Normal [facility] Comment on above: Result Comment: INR Therapeutic Range A) Pre- and Peroperative OAT started two weeks before surgery. NOT HIP SURGERY: 1.5 - 2.5 HIP SURGERY: 2 - 3 B) Primary and secondary prevention of venous THROMBOSIS: 2 - 3 C) Active venous thrombosis, pulmonary embolism and prevention of recurrent venous thrombosis: 2 - 3 D) Prevention of arterial thromboembolism including patients with mechanical heart valves: 3 - 4.5 Performed By: #### B [employer] MACHINE REPAIRER, BMP, PT, PTT, HS TROP, CBC, TSH3, CK #### [facility] [address] [place] [id number] [facility] PT Coag (PPP) [Time] 10.9 s Normal 9.0-12.9 [facility] Comment on above: Result Comment: A he matocrit value greater than 55% may lead to inaccurate results in coagulation testing. Patients having hematocrit values >55% require a special collection tube for coagulation studies. Please contact the laboratory at [phone] for redraw instructions. Performed By: #### B [employer] MACHINE REPAIRER, BMP, PT, PTT, HS TROP, CBC, TSH3, CK #### [facility] [address] [id number] [facility] Prothrombin time (PT)Ordered By: Monique Tierney on 03-05-2023 PT Coag (PPP) [Time] 10.9 s 9.0-12.9 [facility] Comment on above: A hematocrit value g reater than 55% may lead to inaccurate results in coagulation testing. Patients having hematocrit values >55% require a special collection tube for coagulation studies. Please contact the laboratory at [phone] for redraw instructions. RBC Auto (Bld) [#/Vol]Ordere d By: Monique Tierney on 03-05-2023 RBC (Bld) [#/Vol] 4.34 10*6/uL 3.60-5.00 [facility] Serum or plasma anion gap de terminationOrdered By: Monique Tierney on 03-05-2023 Anion gap [Moles/Vol] 17.1 mmol/L 6.0-15.0 [facility] Sodium [Moles/volume] in Ser um or PlasmaOrdered By: Monique Tierney on 03-05-2023 Sodium [Moles/Vol] 125 mmol/L 136-145 [facility] Specific gravity Auto test s trip (U) [Rel density]Ordered By: Jemal Jones on 03-05-2023 Specific gravity (U) [Rel density] 1.015 1.001-1.03 0 [facility] Thyroid Stimulating Hormoneo n 03-05-2023 TSH Qn 0.01 m[IU]/L Low 0.45-5.33 [facility] Comment on above: Result Comment: PERF ORMED BY: [facility] [address] [place] [address] PATHOLOGIST ROD DRAWER RAQUEL LOPEZ M.D. Performed By: #### B FORGE [employer] MACHINE REPAIRER, BMP, PT, PTT, HS TROP, CBC, TSH3, CK #### [facility] [address] [id number] [facility] Thyrotropin [Units/volume] i n Serum or PlasmaOrdered By: Monique Tierney on 03-05-2023 TSH Qn 0.01 m[IU]/L 0.45-5.33 [facility] Troponin I High Sensitivityo n 03-05-2023 Troponin I High Sensitivity 6.3 pg/mL Normal 0.0-15.0 [facility] Comment on above: Result Comment: PERF ORMED BY: [facility] [address] [place] [address] PATHOLOGIST ROD DRAWER RAQUEL LOPEZ M.D. Performed By: #### B [employer]GE [employer] MACHINE REPAIRER, BMP, PT, PTT, HS TROP, CBC, TSH3, CK #### [facility] [address] Troponin I.cardiac [Mass/vol ume] in Serum or Plasma by Detection limit <= 0.01 ng/Ordered By: Monique Tierney on 03-05-2023 Troponin I.cardiac DL <= 0.01 ng/mL [Mass/Vol] 6.3 pg/mL 0.0-15.0 [facility] Urea nitrogen [Mass/volume] in Serum or PlasmaOrdered By: Monique Tierney on 03-05-2023 Urea nitrogen [Mass/Vol] 17 mg/dL 7-25 [facility] Urine bacteria detection by automated methodOrdered By: Jemal Jones on 03-05-2023 Bacteria Auto Ql (U) 1+ None Seen [facility] Urine clarity by refractomet ry automatedOrdered By: Jemal Jones on 03-05-2023 Clarity Refractometry automated (U) Clear Clear [facility] Urine glucose measurement by automated test strip (mass/volume)Ordered By: Jemal Jones on 03-05-2023 Glucose Auto test strip (U) [Mass/Vol] Normal mg/dL Normal [facility] Urine hemoglobin detection b y automated test stripOrdered By: Jemal Jones on 03-05-2023 Hemoglobin Auto test strip Ql (U) Negative Negative [facility] Urine leukocyte esterase det ection by automated test stripOrdered By: Jemal Jones on 03-05-2023 Leukocyte esterase Auto test strip Ql (U) 1+ Negative [facility] Urine sediment renal epithel ial cell count by microscopy (number/high power field)Ordered By: Jemal Jones on 03-05-2023 Epithelial cells.renal LM.HPF (Urine sed) [#/Area] Rare [HPF] 0-1 [facility] Urobilinogen Auto test strip (U) [Mass/Vol]Ordered By: Jemal Jones on 03-05-2023 Urobilinogen (U) [Mass/Vol] Normal mg/dL Normal [facility] WBC Auto (Bld) [#/Vol]Ordere d By: Monique Tierney on 03-05-2023 WBC (Bld) [#/Vol] 11.4 10*3/uL 3.8-11.6 [facility] XR chest 2V*on 03-05-2023 XR chest 2V* [facility] [address] XRay Report Signed Patient: Steven Harding MR#: [id number] 1 : 1940 Acct:[id number] Age/Sex: 83 / F ADM Date: 03/05/23 Loc: ER Room: Type: [facility] ER Attending Dr: Copies to: Monique Tierney MD Ordering Provider: Monique Tierney MD Date of Service: 03/05/23 XR/XR chest 2V*: Dizziness Plain film chest 2 view HISTORY: Dizziness. He walking. Dyspnea. COMPARISON: 11/11/2019 FINDINGS: SUPPORT DEVICES: None POSTSURGICAL CHANGES: None HEART: Within normal limits PULMONARY PIOTR: Within normal limits MEDIASTINUM: Atherosclerosis. LUNGS AND PLEURA: No acute lung process, pleural effusion or pneumothorax identified. BONY STRUCTURES: Thoracic hyperostosis ADDITIONAL FINDINGS None XR/XR chest 2V* IMPRESSION: No acute process. Impression dictated by: Bethel Snyder M.D.03/05/2023 7:27 PM Dictation Location: [address] [place] [address] Transcribed By: [facility] 03/05/231926 Dictated By: Bethel Snyder DO 03/05/231925 Signed By: 03/05/231926 [facility] pH Auto test strip (U)Ordere d By: Jemal Jones on 03-05-2023 pH (U) 6.0 [pH] 5.0-9.0 [facility] Office Visit (Cardiology)on 02-16-2023 Follow-up visit Diagnoses/Problems Assessed Two-vessel coronary artery disease (414.00) (I25.10) Dyspnea (786.09) (R06.00) Former smoker (V15.82) (Z87.891) nicotine lozenges Hypertension, benign (401.1) (I10) PAD (peripheral artery disease) (443.9) (I73.9) Status post percutaneous transluminal coronary angioplasty (V45.82) (Z98.61) Mixed hyperlipidemia (272.2) (E78.2) Overweight with body mass index (BMI) of 27 to 27.9 in adult (278.02,V85.23) (E66.3,Z68.27) Orders Hypertension, benign, Two-vessel coronary artery disease Renew: Metoprolol Tartrate 25 MG Oral Tablet; TAKE 1 TABLET BY MOUTH TWICE DAILY Renew: NIFEdipine ER 60 MG Oral Tablet Extended Release 24 Hour; TAKE 1 TABLET DAILY DIRECTED Overweight with body mass index (BMI) of 27 to 27.9 in adult Healthy Weight Tips; Status:Complete - Retrospective Authorization; Done: [id number] Some eating tips that can help you lose weight.; Status:Complete - Retrospective Authorization; Done: [id number] PMH: Coronary artery disease involving chemehuevi coronary artery of chemehuevi heart without angina pectoris, Mixed hyperlipidemia Renew: Atorvastatin Calcium 80 MG Oral Tablet; TAKE 1 TABLET AT BEDTIME SocHx: Former smoker Tobacco Use Screening; Status:Complete; Done: [id number] Status post percutaneous transluminal coronary angioplasty, Two-vessel coronary artery disease Renew: Nitroglycerin 0.4 MG Sublingual Tablet Sublingual; PLACE 1 TABLET UNDER THE TONGUE EVERY 5 MINUTES FOR UP TO 3 DOSES NEEDED FOR CHEST PAIN.CALL 911 IF PAIN PERSISTS Patient Instructions Please bring all medicines, vitamins, and herbal supplements with you when you come to the office. Prescriptions will not be filled unless you are compliant with your follow up appointments or have a follow up appointment scheduled as per instruction of your physician. Refills should be requested at the time of your visit. Follow up in 6 months medications refilled Chief Complaint STEVEN HARDING is being seen for a 6 month follow-up of. History of Present Illness Patient is here for follow-up and management for coronary artery disease with prior PCI of the right coronary artery and circumflex, hypertension, hyperlipidemia. Since last time I saw her she denies any cardiac complaint of chest pain, palpitation, or syncope. She will describe some recent development of gait disturbance. She had been using some scopolamine patches with improvement. She underwent ENT and scheduled to undergo neuro evaluation. Assessment 1. Coronary artery disease with prior presentation myocardial infarction and PCI to the RCA and left circumflex doing well with no recurrence of her symptoms 2. Hypertension controlled 3. Hyperlipidemia controlled 4. Mildly overweight 5. Previous complaint of shortness of breath resolved 6. Patient reported gait disturbance she is scheduled to see neurology Plan 1. The patient was advised to continue present medical therapy unchanged 2. I advised her to forward copy of his lab work when it is done 3. I told her if she is interested in pursuing surgery for her rotator cuff injury this can be done considering its been more 4. we discussed risk factor modification and importance of staying active and exercise 5. We will see her back in 6 months and follow-up Surgical History Problems History of Angioplasty History of Bile duct reconstruction Denied: History of Complete colonoscopy History of Cyst excision History of Femoral vein stent placement History of Hysterectomy History of Skin biopsy History of Tonsillectomy Current Meds Medication NameInstruction Aspirin EC 81 MG TBECTAKE 1 TABLET DAILY. Atorvastatin Calcium 80 MG Oral TabletTAKE 1 TABLET AT BEDTIME. busPIRone HCl - 5 MG Oral Tablettake one-half to 2 tabs as needed Clopidogrel Bisulfate 75 MG Oral TabletTAKE 1 TABLET BY MOUTH DAILY Losartan Potassium 100 MG Oral TabletTAKE 1 TABLET DAILY. metFORMIN HCl - 1000 MG Oral TabletTAKE 1 TABLET TWICE DAILY WITH MEALS. Metoprolol Tartrate 25 MG Oral TabletTAKE 1 TABLET BY MOUTH TWICE DAILY NIFEdipine ER 60 MG Oral Tablet Extended Release 24 HourTAKE 1 TABLET DAILY DIRECTED. Nitroglycerin 0.4 MG Sub[address]ual Tablet SublingualPLACE 1 TABLET UNDER THE TONGUE EVERY 5 MINUTES FOR UP TO 3 DOSES NEEDED FOR CHEST PAIN.CALL 911 IF PAIN PERSISTS. 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 Ventolin HFA 108 (90 Base) MCG/ACT Inhalation Aerosol SolutionUSE DIRECTED Allergies Medication Brilinta TABS Adverse Reaction; Fatigue; Recorded By: Sarah Jay; 03/17/2022 3:27:11 PM weakness, shaking Social History Problems Former smoker (V15.82) (Z87.891) nicotine lozenges No alcoho (more content not included)... Normal [facility] Tobacco Screening.on 023 Fall risk assessment a) No falls within the last year [facility] [employer] [address] DO Work Phone: Tobacco use status CPHS b) No -[facility] [employer] DO Work Phone: REVERSE T3on 10-17-2022 Reverse T3, Serum 18.8 ng/dL Normal 9.2-24.[address] [facility] Comment on above: Performed By: #### R [email or web address] #### [facility] [address] [place] [address] Dr. Ellie Smith T3, TOTAL (TRIIODOTHYRONINE) on 10-06-2022 T3, TOTAL 137 ng/dL Normal 71-[address] [facility] Comment on above: Performed By: #### P OCGLUC #### [facility] [address] [address] [address] Ellie Smith FREE T3on 10-05-2022 FREE T3 3.03 pg/mlL Normal 2.18-3.[address] [facility] Comment on above: Performed By: #### L ACT #### [facility] [address] [address] [address] Ellie Smith FREE T4on 10-05-2022 Free T4 [Mass/Vol] 1.02 ng/dL Normal 0.76-1.[address] [facility] Comment on above: Performed By: #### F T4 #### [facility] [address] [place] [address] Dr. Ellie Smith TSHon 10-05-2022 TSH 0.032 uIU/mL Critically low 0.358-3.[address] [facility] Comment on above: Performed By: #### L ACT #### [facility] [address] [place], [place] [address] Dr. Ellie Smith Office Visit (Cardiology)on 08-24-2022 Follow-up visit Diagnoses/Problems Assessed Two-vessel coronary artery disease (414.00) (I25.10) Hypertension, benign (401.1) (I10) Mixed hyperlipidemia (272.2) (E78.2) PAD (peripheral artery disease) (443.9) (I73.9) Overweight with body mass index (BMI) of 27 to 27.9 in adult (278.02,V85.23) (E66.3,Z68.27) Status post percutaneous transluminal coronary angioplasty (V45.82) (Z98.61) Former smoker (V15.82) (Z87.891) nicotine lozenges Dyspnea (786.09) (R06.00) Orders Overweight with body mass index (BMI) of 27 to 27.9 in adult Healthy Weight Tips; Status:Complete - Retrospective Authorization; Done: 24Aug2022 Some eating tips that can help you lose weight.; Status:Complete - Retrospective Authorization; Done: 24Aug2022 PMH: Coronary artery disease involving chemehuevi coronary artery of chemehuevi heart without angina pectoris Renew: Aspirin EC 81 MG Oral Tablet Delayed Release; TAKE 1 TABLET DAILY Renew: Clopidogrel Bisulfate 75 MG Oral Tablet; TAKE 1 TABLET BY MOUTH DAILY PMH: Coronary artery disease involving chemehuevi coronary artery of chemehuevi heart without angina pectoris, Hypertension, benign Renew: Losartan Potassium 100 MG Oral Tablet; TAKE 1 TABLET DAILY PMH: Coronary artery disease involving chemehuevi coronary artery of chemehuevi heart without angina pectoris, Mixed hyperlipidemia Renew: Atorvastatin Calcium 80 MG Oral Tablet; TAKE 1 TABLET AT BEDTIME SocHx: Former smoker Tobacco Use Screening; Status:Complete; Done: 24Aug2022 Patient Instructions Please bring all medicines, vitamins, and herbal supplements with you when you come to the office. Prescriptions will not be filled unless you are compliant with your follow up appointments or have a follow up appointment scheduled as per instruction of your physician. Refills should be requested at the time of your visit. Follow up in 6 months labs reviewed with pt Chief Complaint STEVEN HARDING is being seen for a 3 month follow-up of. History of Present Illness Patient is here for follow-up continue management for history of coronary artery disease. Last year in January she presented with acute coronary syndrome. Cardiac catheterization showed two-vessel coronary artery disease underwent PCI to the left circumflex and RCA. LVEF was preserved by echocardiogram. Since then the patient has done well. She denies complaint of chest pain, palpitation, lightheadedness, dizziness or syncope. She recently have developed rotator cuff injury. But cardiac vicente seem to be doing well. Assessment 1. Coronary artery disease with prior presentation myocardial infarction and PCI to the RCA and left circumflex doing well with no recurrence of her symptoms 2. Hypertension controlled 3. Hyperlipidemia controlled 4. Mildly overweight 5. Previous complaint of shortness of breath resolved 6. Rotator cuff injury Plan 1. The patient was advised to continue present medical therapy unchanged 2. I reviewed with her her recent lab work 3. I told her if she is interested in pursuing surgery for her rotator cuff injury this can be done considering its been more than 9 months from her PCI 4. We discussed risk factor modification and importance of staying active and exercise Surgical History Problems History of Angioplasty History of Bile duct reconstruction Denied: History of Complete colonoscopy History of Cyst excision History of Femoral vein stent placement History of Hysterectomy History of Skin biopsy History of Tonsillectomy Current Meds Medication NameInstruction Aspirin EC 81 MG Oral Tablet Delayed ReleaseTAKE 1 TABLET DAILY. Atorvastatin Calcium 80 MG Oral TabletTAKE 1 TABLET AT BEDTIME. Clopidogrel Bisulfate 75 MG Oral TabletTake 4 tablets (300mg) on day #1 then take one tablet daily Losartan Potassium 100 MG Oral TabletTAKE 1 TABLET DAILY. metFORMIN HCl - 1000 MG Oral TabletTAKE 1 TABLET TWICE DAILY WITH MEALS. Metoprolol Tartrate 25 MG Oral TabletTAKE 1 TABLET BY MOUTH TWICE DAILY NIFEdipine ER 60 MG Oral Tablet Extended Release 24 HourTAKE 1 TABLET DAILY DIRECTED. Nitroglycerin 0.4 MG Sublingual Tablet SublingualPLACE 1 TABLET UNDER THE TONGUE EVERY 5 MINUTES FOR UP TO 3 DOSES NEEDED FOR CHEST PAIN.CALL 911 IF PAIN PERSISTS. 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 Ventolin HFA 108 (90 Base) MCG/ACT Inhalation Aerosol SolutionUSE DIRECTED Allergies Medication Brilinta TABS Adverse Reaction; Fatigue; Recorded By: Sarah Jay; 03/17/2022 3:27:11 PM weakness, shaking Social History Problems Former smoker (V15.82) (Z87.163) nicotine lozenges No alcohol use No caffeine use No illicit drug use Review of Systems Constitutional: not feeling tired. Cardiovascular: no intermittent leg claudication and as noted in HPI. Respirat (more content not included)... Normal [employer] Tobacco Screening.on 023 Adult depression screening assessment No [facility] 250 DO Work Phone: Fall risk assessment a) No falls within the last year [facility] [employer] 250 DO Work Phone: Tobacco use status CP b) No [facility] DO Work Phone: GLYCOHEMOGLOBIN A1Con 2022 ADA RECOMMENDATION SEE BELOW Normal [facility] Comment on above: Result Comment: ADA RECOMMENDED LIMIT 4.0 - 6.0 ADA THERAPEUTIC TARGET < 7.0 ACTION SUGGESTED > 7.0 Performed By: #### A 1C #### [facility] [address] [address] [address] Ellie Smith Glucose [Mass/Vol] 114 mg/dL Normal [facility] Comment on above: Performed By: #### A 1C #### [facility] [address] [address] [address] Ellie Smith HbA1c (Bld) [Mass fraction] 5.6 % Normal 4.5-6.[address] [facility] Comment on above: Performed By: #### A 1C #### [facility] [address] [address] [address] Ellie Smith LIPID PROFILEon 08-15-2022 CHOL-HDL RATIO NORM SEE BELOW Normal [facility] Comment on above: Result Comment: 3.3 - 4.4 LOW RISK 4.4 - 7.1 AVERAGE RISK 7.1 - 11.0 MODERATE RISK >11.0 HIGH RISK Performed By: #### R [email or web address] #### [facility] [address] [address] [address] Ellie Smith Cholesterol [Mass/Vol] 116 mg/dL Normal <=200 [facility] Comment on above: Performed By: #### R [id number] #### [facility] [address] [address] [address] Ellie Smith Cholesterol in HDL [Mass/Vol] 60 mg/dL Normal 40-[address] [facility] Comment on above: Performed By: #### R [id number] #### [facility] [address] [address] [address] Ellie Smith Cholesterol in LDL [Mass/Vol] 46.0 mg/dL Normal [facility] Comment on above: Performed By: #### R [id number] #### [facility] [address] [place] [address] Dr. Ellie Smith Cholesterol.total/Chol esterol in HDL [Mass ratio] 1.9 {ratio} Normal [facility] Comment on above: Performed By: #### R [id number] #### [facility] [address] [place] [address] Dr. Ellie Smith HDL NORMAL > or = 60 mg/dl - LO W CARDIOVASCULAR RISK <40 mg/dl - HIGH CARDIOVASCULAR RISK Normal [facility] Comment on above: Performed By: #### R [id number] #### [facility] [address] [place] [address] Dr. Ellie Smith LDL CALC NORMAL SEE BELOW Normal [facility] Comment on above: Result Comment: <100 mg/dl OPTIMAL 100 - 129 mg/dl NEAR OR ABOVE OPTIMAL 130 - 159 mg/dl BORDERLINE HIGH 160 - 189 mg/dl HIGH >190 mg/dl VERY HIGH Performed By: #### R [id number] #### [facility] [address] [place] [address] Dr. Ellie Smith Triglyceride [Mass/Vol] 50 mg/dL Normal <=[address] [facility] Comment on above: Performed By: #### R [id number] #### [facility] [address] [place] [address] Dr. Ellie Smith VLDL CALC 10.0 mg/dL Normal [facility] Comment on above: Performed By: #### R [id number] #### [facility] [address] [place] [address] Dr. Ellie Smith PROF 14(COMP METB)on 023 Albumin [Mass/Vol] 3.9 g/dL Normal 3.4-5.[address] [facility] Comment on above: Performed By: #### R [id number] #### [facility] [address] [place] [address] Dr. Ellie Smith Albumin/Globulin [Mass ratio] 1.2 {ratio} Normal [facility] Comment on above: Performed By: #### R [id number] #### [facility] [address] [place] [address] Dr. Ellie Smith ALP [Catalytic activity/Vol] 56 U/L Normal 46-[address] [facility] Comment on above: Performed By: #### R [id number] #### [facility] [address] [place] [address] Dr. Ellie Smith ALT [Catalytic activity/Vol] 27 U/L Normal 14-[address] [facility] Comment on above: Performed By: #### R [id number] #### [facility] [address] [place] [address] Dr. Ellie Smith Anion gap [Moles/Vol] 14.1 mmol/L Normal [facility] Comment on above: Performed By: #### R [email or web address] #### [facility] [address] [place] [address] Dr. Ellie Smith AST [Catalytic activity/Vol] 18 U/L Normal 15-[address] [facility] Comment on above: Performed By: #### R [id number] #### [facility] [address] [place] [address] Dr. Ellie Smith Bilirubin [Mass/Vol] 0.4 mg/dL Normal 0.2-1.[address] [facility] Comment on above: Performed By: #### R [email or web address] #### [facility] [address] [place] [address] Dr. Ellie Smith Calcium [Mass/Vol] 9.2 mg/dL Normal 8.5-10.[address] [facility] Comment on above: Performed By: #### R [id number] #### [facility] [address] [address] [address] Ellie Smith Chloride [Moles/Vol] 106 mmol/L Normal 98-107 [facility] Comment on above: Performed By: #### R [id number] #### [facility] [address] [place] [address] Dr. Ellie Smith CO2 [Moles/Vol] 26.1 mmol/L Normal 21.0-32.0 [facility] Comment on above: Performed By: #### R [email or web address] #### [facility] [address] [address] [address] Ellie Smith Creatinine [Mass/Vol] 0.68 mg/dL Normal 0.55-1.02 [facility] Comment on above: Performed By: #### R [id number] #### [facility] [address] [place] [address] Dr. Ellie Smith EGFR-AF BARBADIAN >60 Normal >=60 [facility] Comment on above: Performed By: #### R [id number] #### [facility] [address] [place] [address] Dr. Ellie Smith EGFR-NON AF BARBADIAN >60 Normal >=60 [facility] Comment on above: Performed By: #### R [email or web address] #### [facility] [address] [place] [address] Dr. Ellie Smith Globulin (S) [Mass/Vol] 3.2 g/dL Normal [facility] Comment on above: Performed By: #### R [id number] #### [facility] [address] [place] [address] Dr. Ellie Smith Glucose [Mass/Vol] 99 mg/dL Normal 74-106 [facility] Comment on above: Performed By: #### R [id number] #### [facility] [address] [place] [address] Dr. Ellie Smith Potassium [Moles/Vol] 4.2 mmol/L Normal 3.5-5.1 [facility] Comment on above: Performed By: #### R [id number] #### [facility] [address] [place] [address] Dr. Ellie Smith Protein [Mass/Vol] 7.1 g/dL Normal 6.4-8.2 [facility] Comment on above: Performed By: #### R [id number] #### [facility] [address] [place] [address] Dr. Ellie Smith Sodium [Moles/Vol] 142 mmol/L Normal 136-145 [facility] Comment on above: Performed By: #### R [id number] #### [facility] [address] [place] [address] Dr. Ellie Smith Urea nitrogen [Mass/Vol] 16.0 mg/dL Normal 7.0-18.[address] [facility] Comment on above: Performed By: #### R [email or web address] #### [facility] [address] [place] [address] Dr. Ellie Smith Urea nitrogen/Creatinine [Mass ratio] 23.5 mg/mg Normal [facility] Comment on above: Performed By: #### R EVRT3 #### [facility] [address] [place] [address] Dr. Ellie Smith REVERSE T3on 04-15-2022 Reverse T3, Serum 15.4 ng/dL Normal 9.2-24.1 [facility] Comment on above: Result Comment: This test was developed and its performance characteristics determined by [employer]. It has not been cleared or approved by the Food and Drug Administration. Performed By: #### L ACT #### [facility] [address] [place] [address] Dr. Ellie Smith T3, TOTAL (TRIIODOTHYRONINE) on 04-13-2022 T3, TOTAL 144 ng/dL Normal 71-180 [facility] Comment on above: Performed By: #### A 1C #### [facility] [address] [place] [address] Dr. Ellie Smith FREE T3on 04-12-2022 FREE T3 2.93 pg/mlL Normal 2.18-3.[address] [facility] Comment on above: Performed By: #### T SH, FT3 #### [facility] [address] [place] [address] Dr. Ellie Smith FREE T4on 04-12-2022 Free T4 [Mass/Vol] 0.89 ng/dL Normal 0.76-1.[address] [facility] Comment on above: Performed By: #### R EVRT3 #### [facility] [address] [place] [address] Dr. Ellie Smith TSHon 04-12-2022 TSH 0.116 uIU/mL Critically low 0.358-3.[address] [facility] Comment on above: Performed By: #### T SH, FT3 #### [facility] [address] [address] [address] Ellie Smith LIPID PROFILEon 03-29-2022 CHOL-HDL RATIO NORM SEE BELOW Normal [facility] Comment on above: Result Comment: 3.3 - 4.4 LOW RISK 4.4 - 7.1 AVERAGE RISK 7.1 - 11.0 MODERATE RISK >11.0 HIGH RISK Performed By: #### A 1C #### [facility] [address] [place] [address] Dr. Ellie Smith Cholesterol [Mass/Vol] 102 mg/dL Normal <=200 [facility] Comment on above: Performed By: #### A 1C #### [facility] [address] [place] [address] Dr. Ellie Smith Cholesterol in HDL [Mass/Vol] 56 mg/dL Normal 40-[address] [facility] Comment on above: Performed By: #### A 1C #### [facility] [address] [place] [address] Dr. Ellie Smith Cholesterol in LDL [Mass/Vol] 36.8 mg/dL Normal [facility] Comment on above: Performed By: #### A 1C #### [facility] [address] [place] [address] Dr. Ellie Smith Cholesterol.total/Chol esterol in HDL [Mass ratio] 1.8 {ratio} Normal [facility] Comment on above: Performed By: #### A 1C #### [facility] [address] [place] [address] Dr. Ellie Smith HDL NORMAL > or = 60 mg/dl - LO W CARDIOVASCULAR RISK <40 mg/dl - HIGH CARDIOVASCULAR RISK Normal [facility] Comment on above: Performed By: #### A 1C #### [facility] [address] [place] [address] Dr. Ellie Smith LDL CALC NORMAL SEE BELOW Normal [facility] Comment on above: Result Comment: <100 mg/dl OPTIMAL 100 - 129 mg/dl NEAR OR ABOVE OPTIMAL 130 - 159 mg/dl BORDERLINE HIGH 160 - 189 mg/dl HIGH >190 mg/dl VERY HIGH Performed By: #### A 1C #### [facility] [address] [address] [address] Ellie Smith Triglyceride [Mass/Vol] 46 mg/dL Normal <=[address] [facility] Comment on above: Performed By: #### A 1C #### [facility] [address] [place] [address] Dr. Ellie Smith VLDL CALC 9.2 mg/dL Normal [facility] Comment on above: Performed By: #### A 1C #### [facility] [address] [address] [address] Ellie Smith SGOTon 03-29-2022 AST [Catalytic activity/Vol] 17 U/L Normal 15-[address] [facility] Comment on above: Performed By: #### A 1C #### [facility] [address] [place] [address] Dr. Ellie Smith SGPTon 03-29-2022 ALT [Catalytic activity/Vol] 30 U/L Normal 14-[address] [facility] Comment on above: Performed By: #### A 1C #### [facility] [address] [place] [address] Dr. Ellie Smith Office Visit (Cardiology)on 03-17-2022 Follow-up visit Diagnoses/Problems Assessed Dyspnea (786.09) (R06.00) Resolved off of Brilinta Coronary artery disease involving chemehuevi coronary artery of chemehuevi heart without angina pectoris (414.01) (I25.10) Jan 2022 ACS admit [facility] [place]: managed Dr. Hooks Jan 18, 2022: dCX PCI/Jean Marie 2.5/34mm, 2.75/8mm mRCA PCI/Jean Marie 3.0/12 AND 3.5/30mm Type B dissection Feb 03, 2022 Staged LAD PCI/Jean Marie 2.25/26mm Diag2 provisional PTCA Daily activity 4 METs without recurrent symptoms Echocardiogram abnormal (793.2) (R93.1) Jan 2022 Echo LVEF 50-55% RVSP 40 Hypertension, benign (401.1) (I10) optimal in office Mixed hyperlipidemia (272.2) (E78.2) Tolerating high intensity statin Is due for repeat lipid profile Former smoker (V15.82) (Z87.891) nicotine lozenges Class 1 obesity with body mass index (BMI) of 30.0 to 30.9 in adult (278.00,V85.30) (E66.9,Z68.30) Reviewed the merits of healthy lifestyle choices on overall cardiovascular health. Orders Class 1 obesity with body mass index (BMI) of 30.0 to 30.9 in adult Healthy Weight Tips; Status:Complete; Done: 17Mar2022 Coronary artery disease involving chemehuevi coronary artery of chemehuevi heart without angina pectoris, Echocardiogram abnormal Disability Placard; Status:Complete; Done: [id number] 03:53PM SocHx: Former smoker Tobacco Use Screening; Status:Complete; Done: [id number] Patient Instructions Please bring all medicines, vitamins, and herbal supplements with you when you come to the office. Prescriptions will not be filled unless you are compliant with your follow up appointments or have a follow up appointment scheduled as per instruction of your physician. Refills should be requested at the time of your visit. PLAN: 1. Continue with aggressive secondary prevention; no medication changes indicated at this time. 2. Disability placard due to fatigability, recent coronary intervention. 3. Labs as previously ordered (high intensity statin new at January 2022 discharge) 4. Return for follow-up; in the interim, contact the office if new symptoms arise. Dr. Dougherty in 3 months Chief Complaint 6 week f/u: 'doing better' STEVEN HARDING is being seen for a 1 month follow-up of dyspnea, weakness and a medication change. Patient is ambulatory with steady gait. Last evaluated in clinic by myself February 2022. At that time: - Discontinued Brilinta due to complaints of dyspnea and weakness. After 72 hours off medication, the symptoms have abated. - She has started cardiac rehab and is enjoying it . Is attending twice per week. - Continues to tolerate Lipitor and has lab work for repeat lipid profile She presents today were overall she is doing much better. She notices that her stamina is starting to improve but she continues to tire very easily. No recurrence of her presenting complaints of knife between my shoulder blades or prior acid reflux. She is increasing her daily activity, has been encouraged to continue cardiac rehab. 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 History of Present Illness The patient states she has been generally doing well since the last visit. Comorbid Illnesses: diabetes mellitus, hypertension and hyperlipidemia. Symptoms: denies chest pain at rest, denies exertional chest pain, resolved dyspnea, improved fatigue, improved exercise intolerance, denies palpitations, denies edema, denies orthopnea, denies dizziness and denies orthostatic dizziness. Associated symptoms: syncope. Her symptoms do not limit her activities. Disease Monitoring: The patient has had a stable weight. Medications: the patient is adherent with her medication regimen. She denies medication side effects. Surgical History Problems History of Angioplasty History of Bile duct reconstruction Denied: History of Complete colonoscopy History of Cyst excision History of Femoral vein stent placement History of Hysterectomy History of Skin biopsy History of Tonsillectomy Current Meds Medication NameInstruction Aspirin EC 81 MG Oral Tablet Delayed ReleaseTAKE 1 TABLET DAILY. Atorvastatin Calcium 80 MG Oral TabletTAKE 1 TABLET AT BEDTIME. Clopidogrel Bisulfate 75 MG Oral TabletTake 4 tablets (300mg) on day #1 then take one tablet daily Losartan Potassium 100 MG Oral TabletTAKE 1 TABLET DAILY. metFORMIN HCl - 1000 MG Oral TabletTAKE 1 TABLET TWICE DAILY WITH MEALS. Metoprolol Tartrate 25 MG Oral TabletTAKE 1 TABLET BY MOUTH TWICE DAILY NIFEdipine ER 60 MG Oral Tablet Extended Release 24 HourTAKE 1 TABLET DAILY DIRECTED. Nitroglycerin 0.4 MG Sublingual Tablet SublingualPLACE 1 TABLET UNDER THE TONGUE EVERY 5 MINUTES FOR UP TO 3 DOSES NEEDED FOR CHES (more content not included)... [facility] Tobacco Screening.on 022 Adult depression screening assessment No -[facility] 600 DO Work Phone: Fall risk assessment a) No falls within the last year [facility] [place] [facility] 600 DO Work Phone: Tobacco use status CP b) [facility] 600 DO Work Phone: [phone] PHQ-2 VITALSon 02-15-2022 Adult depression screening assessment Yes [facility] 250 DO Work Phone: Adult depression screening assessment No [facility] 250 DO Work Phone: Fall risk assessment a) No falls within the last year [facility] [place] Negar godoy 250 DO Work Phone: Tobacco use status CP b) No [facility] 250 DO Work Phone: PHQ-2 VITALS 0-Not at all [facility] 250 DO Work Phone: PHQ-2 VITALS 3-Nearly every day [facility] 250 DO Work Phone: PHQ-2 VITALS 1-Several days [facility] 250 DO Work Phone: PHQ-2 VITALS Very Difficult [facility] Negar [facility] 250 DO Work Phone: Activated partial thrombopla stin time (aPTT) in platelet poor plasma by coagulation aOrdered By: Diony Hooks on 02-03-2022 aPTT Coag (PPP) [Time] 31.4 s 25.1-36.5 [facility] Basophils Auto (Bld) [#/Vol] Ordered By: Diony Hooks on 02-03-2022 Basophils (Bld) [#/Vol] 0.1 10*3/uL 0.0-0.2 [facility] Basophils/100 WBC Auto (Bld) Ordered By: Diony Hooks on 02-03-2022 Basophils/100 WBC (Bld) 0.6 % . [facility] Blood hemoglobin measurement (mass/volume)Ordered By: Diony Hooks on 02-03-2022 Hemoglobin (Bld) [Mass/Vol] 14.3 g/dL 11.8-15.4 [facility] Blood leukocytes automated c ount (number/volume)Ordered By: Diony Hooks on 02-03-2022 WBC (Bld) [#/Vol] 12.0 10*3/uL 4.5-11.0 [facility] Eosinophils Auto (Bld) [#/Vo l]Ordered By: Diony Hooks on 02-03-2022 Eosinophils (Bld) [#/Vol] 0.4 10*3/uL 0.0-0.45 [facility] Eosinophils/100 WBC Auto (Bl d)Ordered By: Diony Hooks on 02-03-2022 Eosinophils/100 WBC (Bld) 3.4 % . [facility] Erythrocyte distribution wid th Auto (RBC) [Ratio]Ordered By: Diony Hooks on 02-03-2022 Erythrocyte distribution width (RBC) [Ratio] 14.4 % 11.9-15.3 [facility] Hematocrit Auto (Bld) [Volum e fraction]Ordered By: Diony Hooks on 02-03-2022 Hematocrit (Bld) [Volume fraction] 42.4 % 34.0-46.4 [facility] - CoagulationOrde red By: Diony Hooks on 02-03-2022 PT Coag (PPP) [Time] 10.9 s 9.0-12.9 [facility] - Hematology and Cell countsOrdered By: Diony Hooks on 02-03-2022 Nucleated RBC/100 WBC (Bld) [Ratio] 0.0 % 0-0.5 [facility] Lymphocytes Auto (Bld) [#/Vo l]Ordered By: Diony Hooks on 02-03-2022 Lymphocytes (Bld) [#/Vol] 2.1 10*3/uL 1.00-4.8 [facility] Lymphocytes/100 WBC Auto (Bl d)Ordered By: Diony Hooks on 02-03-2022 Lymphocytes/100 WBC (Bld) 17.5 % . [facility] MCH Auto (RBC) [Entitic mass ]Ordered By: Diony Hooks on 02-03-2022 MCH (RBC) [Entitic mass] 31.5 pg 24.7-34.3 [facility] MCHC Auto (RBC) [Mass/Vol]Or dered By: Diony Hooks on 02-03-2022 MCHC (RBC) [Mass/Vol] 33.8 g/dL 32.0-35.0 [facility] MCV Auto (RBC) [Entitic vol] Ordered By: Diony Hooks on 02-03-2022 MCV (RBC) [Entitic vol] 93.2 fL 80-100 [facility] Monocytes Auto (Bld) [#/Vol] Ordered By: Diony Hooks on 02-03-2022 Monocytes (Bld) [#/Vol] 0.5 10*3/uL 0.0-0.8 [facility] Monocytes/100 WBC Auto (Bld) Ordered By: Diony Hooks on 02-03-2022 Monocytes/100 WBC (Bld) 4.4 % . [facility] Neutrophils Auto (Bld) [#/Vo l]Ordered By: Diony Hooks on 02-03-2022 Neutrophils (Bld) [#/Vol] 8.9 10*3/uL 1.8-7.7 [facility] Neutrophils/100 WBC Auto (Bl d)Ordered By: Diony Hooks on 02-03-2022 Neutrophils/100 WBC (Bld) 74.1 % . [facility] Platelet mean volume Auto (B ld) [Entitic vol]Ordered By: Diony Hooks on 02-03-2022 Platelet mean volume (Bld) [Entitic vol] 7.5 fL 6.3-10.7 [facility] Platelet poor plasma interna tional normalized ratio (INR) by coagulation assay (relatOrdered By: Diony Hooks on 02-03-2022 INR Coag (PPP) [Relative time] 1.0 {INR} [facility] Comment on above: INR Therapeutic Rang e A) Pre- and Peroperative OAT started two weeks before surgery. NOT HIP SURGERY: 1.5 - 2.5 HIP SURGERY: 2 - 3 B) Primary and secondary prevention of venous THROMBOSIS: 2 - 3 C) Active venous thrombosis, pulmonary embolism and prevention of recurrent venous thrombosis: 2 - 3 D) Prevention of arterial thromboembolism including patients with mechanical heart valves: 3 - 4.5 Platelets Auto (Bld) [#/Vol] Ordered By: Diony Hooks on 02-03-2022 Platelets (Bld) [#/Vol] 337 10*3/uL 150-450 [facility] RBC Auto (Bld) [#/Vol]Ordere d By: Diony Hooks on 02-03-2022 RBC (Bld) [#/Vol] 4.56 10*6/uL 3.60-5.00 [facility] COVID-19 SOFIAOrdered By: [facility] he[facility]see on 02-01-2022 SARS-CoV+SARS-CoV-2 (COVID-19) Ag IA.rapid Ql (Resp) Negative Negative [facility] Comment on above: This is a duplicate Kasey SARS Antigen (JERRY) result to be used for statistical tracking purpose only. Creatinine and Glomerular fi ltration rate.predicted panel (S/P/Bld)Ordered By: Diony Hooks on 02-01-2022 Creatinine [Mass/Vol] 0.85 mg/dL 0.44-1.03 [facility] Estimated glomerular filtrat ion rate (GFR) non- AmericanOrdered By: Diony Hooks on 02-01-2022 GFR/1.73 sq M.predicted among non-blacks MDRD (S/P/Bld) [Vol rate/Area] > 60 mL/Min [facility] No Panel InformationOrdered By: Diony Hooks on 02-01-2022 Estimated GFR () > 60 mL/Min [facility] Comment on above: GFR estimated refere nce range: According to KDOQI guidelines, <60 ml/min/1.73m2 is sufficient to diagnose a patient with chronic kidney disease. Pharmacy Creatinine Clearance (Chem N/A [facility] SARS Antigen (LFIA) [facility] Serum or plasma calcium norma urement (mass/volume)Ordered By: Diony Hooks on 02-01-2022 Calcium [Mass/Vol] 9.7 mg/dL 8.2-10.2 [facility] Serum or plasma chloride tam surement (moles/volume)Ordered By: Diony Hooks on 02-01-2022 Chloride [Moles/Vol] 97 mmol/L 95-114 [facility] Serum or plasma glucose norma urement (mass/volume)Ordered By: Diony Hooks on 02-01-2022 Glucose [Mass/Vol] 86 mg/dL 70-100 [facility] Comment on above: ADA recommended refe rence range Random Glucose Reference Range is dependent on time and content of last meal. Glucose of more than 200 mg/dL in a nonstressed, ambulatory subject supports the diagnosis of Diabetes Mellitus. Serum or plasma potassium me asurement (moles/volume)Ordered By: Diony Hooks on 02-01-2022 Potassium [Moles/Vol] 4.7 mmol/L 3.5-5.1 [facility] Serum or plasma sodium measu rement (moles/volume)Ordered By: Diony Hooks on 02-01-2022 Sodium [Moles/Vol] 132 mmol/L 136-146 [facility] Serum or plasma total carbon dioxide measurement (moles/volume)Ordered By: Diony Hooks on 02-01-2022 CO2 [Moles/Vol] 26.0 mmol/L 22.0-30.0 [facility] Serum or plasma urea nitroge n measurement (mass/volume)Ordered By: Diony Hooks on 02-01-2022 Urea nitrogen [Mass/Vol] 10 mg/dL 03-04 [facility] BNPon 01-28-2022 Natriuretic peptide B (Bld) [Mass/Vol] 945.0 pg/mL Normal <=1,800.[address] [facility] Comment on above: Performed By: #### R [id number] #### [facility] [address] [address] [address] Ellie Smith CARDIAC RAQUEL ADMITon 022 CK [Catalytic activity/Vol] 122 U/L Normal 26-[address] [facility] Comment on above: Performed By: #### R [id number] #### [facility] [address] [address] [address] Ellie Smith CK.MB [Mass/Vol] 0.65 ng/mL Normal <=3.[address] [facility] Comment on above: Performed By: #### R EVRT3 #### [facility] [address] [address] [address] Ellie Smith HSTROP 63.5 pg/mL Critically high 4.0-51.[address] [facility] Comment on above: Result Comment: CUT- OFF POINTS HAVE BEEN ESTABLISHED BASED ON THE FOURTH UNIVERSAL DEFINITIONS OF MYOCARDIAL INFARCTION. THE UPPER REFERENCE LIMIT (URL) OF TROPONIN, DEFINED THE 99TH PERCENTILE OF cTnI DISTRIBUTION IN A REFERENCE POPULATION, HAS BEEN CONFIRMED THE DECISION THRESHOLD FOR LA DIAGNOSIS. Performed By: #### R [id number] #### [facility] [address] [place] [address] Dr. Ellie Smith MATEO 26 ng/mL Normal 9-82 [facility] Comment on above: Performed By: #### R [id number] #### [facility] [address] [place] [address] Dr. Ellie Smith CBC AUTO DIFFon 01-28-2022 BASO # 0.1 103/ul Normal 0.0-0.[address] [facility] Comment on above: Performed By: #### L ACT #### [facility] [address] [place] [address] Dr. Ellie Smith Basophils/100 WBC (Bld) 0.6 % Normal 0.2-2.[address] [facility] Comment on above: Performed By: #### L ACT #### [facility] [address] [place] [address] Dr. Ellie Smith EO # 0.4 103/ul Normal 0.0-0.[address] [facility] Comment on above: Performed By: #### L ACT #### [facility] [address] [place] [address] Dr. Ellie Smith Eosinophils/100 WBC (Bld) 4.4 % Normal 0.9-7.[address] [facility] Comment on above: Performed By: #### L ACT #### [facility] [address] [place] [address] Dr. Ellie Smith Erythrocyte distribution width (RBC) [Ratio] 13.7 % Normal 11.0-15.[address] [facility] Comment on above: Performed By: #### L ACT #### [facility] [address] [place] [address] Dr. Ellie Smith Hematocrit (Bld) [Volume fraction] 35.8 % Critically low 36.0-48.[address] [facility] Comment on above: Performed By: #### L ACT #### [facility] [address] [place] [address] Dr. Ellie Smith Hemoglobin (Bld) [Mass/Vol] 11.9 g/dL Critically low 12.0-16.[address] [facility] Comment on above: Performed By: #### L ACT #### [facility] [address] [place] [address] Dr. Ellie Smith IG # 0.03 10e3/ul Normal 0.00-0.[address] [facility] Comment on above: Performed By: #### L ACT #### [facility] [address] [place] [address] Dr. Ellie Smith IG % 0.4 % Normal 0.0-0.[address] [facility] Comment on above: Performed By: #### L ACT #### [facility] [address] [place] [address] Dr. Ellie Smith LYMPH # 1.7 103/ul Normal 1.2-3.[address] [facility] Comment on above: Performed By: #### L ACT #### [facility] [address] [place] [address] Dr. Ellie Smith Lymphocytes/100 WBC (Bld) 19.6 % Critically low 20.5-60.[address] [facility] Comment on above: Performed By: #### L ACT #### [facility] [address] [place] [address] Dr. Ellie Smith MANUAL DIFF REQ NO Normal [facility] Comment on above: Performed By: #### L ACT #### [facility] [address] [place] [address] Dr. Ellie Smith MCH (RBC) [Entitic mass] 31.4 pg Normal 26.7-34.[address] [facility] Comment on above: Performed By: #### L ACT #### [facility] [address] [place] [address] Dr. Ellie Smith MCHC (RBC) [Mass/Vol] 33.2 g/dL Normal 29.9-35.2 [facility] Comment on above: Performed By: #### L ACT #### [facility] [address] [address] [address] Ellie Smith MCV (RBC) [Entitic vol] 94.5 fL Normal 81.0-99.[address] [facility] Comment on above: Performed By: #### L ACT #### [facility] [address] [address] [address] Ellie Smith MONO # 0.5 103/ul Normal 0.3-0.[address] [facility] Comment on above: Performed By: #### L ACT #### [facility] [address] [address] [address] Ellie Smith Monocytes/100 WBC (Bld) 5.4 % Normal 1.7-12.[address] [facility] Comment on above: Performed By: #### L ACT #### [facility] [address] [address] [address] Ellie Smith NEUT # 6.0 103/ul Normal 1.4-6.[address] [facility] Comment on above: Performed By: #### L ACT #### [facility] [address] [address] [address] Ellie Smith Neutrophils/100 WBC (Bld) 69.6 % Normal 43.0-75.[address] [facility] Comment on above: Performed By: #### L ACT #### [facility] [address] [address] [address] Ellie Smith Platelet mean volume (Bld) [Entitic vol] 9.5 fL Normal 9.5-13.[address] [facility] Comment on above: Performed By: #### L ACT #### [facility] [address] [address] [address] Ellie Smith PLT 252 103/ul Normal 150-450 [facility] Comment on above: Performed By: #### L ACT #### [facility] [address] [address] [address] Ellie Smith RBC 3.79 106/ul Critically low 4.20-5.40 [facility] Comment on above: Performed By: #### L ACT #### [facility] [address] [place] [address] Dr. Ellie Smith WBC 8.6 103/ul Normal 4.0-11.[address] [facility] Comment on above: Performed By: #### L ACT #### [facility] [address] [place] [address] Dr. Ellie Smith POINT OF CARE GLUCOSEon 01-10 Glucose [Mass/Vol] 93 mg/dL Normal 74-[address] [facility] Comment on above: Performed By: #### A 1C #### [facility] [address] [place] [address] Dr. Ellie Smith PROF 14(COMP METB)on 022 Albumin [Mass/Vol] 3.2 g/dL Critically low 3.4-5.0 [facility] Comment on above: Performed By: #### R EVRT3 #### [facility] [address] [place] [address] Dr. Ellie Smith Albumin/Globulin [Mass ratio] 1.1 {ratio} Normal [facility] Comment on above: Performed By: #### R EVRT3 #### [facility] [address] [place] [address] Dr. Ellie Smith ALP [Catalytic activity/Vol] 52 U/L Normal 46-[address] [facility] Comment on above: Performed By: #### R [id number] #### [facility] [address] [place], [place] [address] Dr. Ellie Smith ALT [Catalytic activity/Vol] 52 U/L Normal 14-[address] [facility] Comment on above: Performed By: #### R [id number] #### [facility] [address] [place] [address] Dr. Ellie Smith Anion gap [Moles/Vol] 9.7 mmol/L Normal [facility] Comment on above: Performed By: #### R [id number] #### [facility] [address] [place] [address] Dr. Ellie Smith AST [Catalytic activity/Vol] 22 U/L Normal 15-[address] [facility] Comment on above: Performed By: #### R [id number] #### [facility] [address] [address] [address] Ellie Smith Bilirubin [Mass/Vol] 0.3 mg/dL Normal 0.2-1.[address] [facility] Comment on above: Performed By: #### R [id number] #### [facility] [address] [place] [address] Dr. Ellie Smith Calcium [Mass/Vol] 8.4 mg/dL Critically low 8.5-10.1 [facility] Comment on above: Performed By: #### R [id number] #### [facility] [address] [address] [address] Ellie Smith Chloride [Moles/Vol] 104 mmol/L Normal 98-[address] [facility] Comment on above: Performed By: #### R [id number] #### [facility] [address] [place] [address] Dr. Ellie Smith CO2 [Moles/Vol] 25.5 mmol/L Normal 21.0-32.[address] [facility] Comment on above: Performed By: #### R [id number] #### [facility] [address] [place] [address] Dr. Ellie Smith Creatinine [Mass/Vol] 0.71 mg/dL Normal 0.55-1.[address] [facility] Comment on above: Performed By: #### R [id number] #### [facility] [address] [place] [address] Dr. Ellie Smith EGFR-AF BARBADIAN >60 Normal >=[address] [facility] Comment on above: Performed By: #### R [id number] #### [facility] [address] [address] [address] Ellie Smith EGFR-NON AF BARBADIAN >60 Normal >=[address] [facility] Comment on above: Performed By: #### R [id number] #### [facility] [address] [place] [address] Dr. Ellie Smith Globulin (S) [Mass/Vol] 2.9 g/dL Normal [facility] Comment on above: Performed By: #### R [id number] #### [facility] [address] [address] [address] Ellie Smith Glucose [Mass/Vol] 102 mg/dL Normal 74-[address] [facility] Comment on above: Performed By: #### R [id number] #### [facility] [address] [place] [address] Dr. Ellie Smith Potassium [Moles/Vol] 4.2 mmol/L Normal 3.5-5.[address] [facility] Comment on above: Performed By: #### R [id number] #### [facility] [address] [place] [address] Dr. Ellie Smith Protein [Mass/Vol] 6.1 g/dL Critically low 6.4-8.2 [facility] Comment on above: Performed By: #### R [id number] #### [facility] [address] [place] [address] Dr. Ellie Smith Sodium [Moles/Vol] 135 mmol/L Critically low 136-145 [facility] Comment on above: Performed By: #### R [id number] #### [facility] [address] [place] [address] Dr. Ellie Smith Urea nitrogen [Mass/Vol] 11.0 mg/dL Normal 7.0-18.[address] [facility] Comment on above: Performed By: #### R [id number] #### [facility] [address] [place] [address] Dr. Ellie Smith Urea nitrogen/Creatinine [Mass ratio] 15.5 mg/mg Normal [facility] Comment on above: Performed By: #### R [id number] #### [facility] [address] [place] [address] Dr. Ellie Smith CARDIAC RAQUEL 3-6on 2 CK [Catalytic activity/Vol] 192 U/L Normal 26-[address] [facility] Comment on above: Performed By: #### L ACT #### [facility] [address] [place] [address] Dr. Ellie Smith CK.MB [Mass/Vol] 0.70 ng/mL Normal <=3.[address] [facility] Comment on above: Performed By: #### L ACT #### [facility] [address] [address] [address] Ellie Smith HSTROP 88.8 pg/mL Critically high 4.0-51.[address] [facility] Comment on above: Result Comment: CUT- OFF POINTS HAVE BEEN ESTABLISHED BASED ON THE FOURTH UNIVERSAL DEFINITIONS OF MYOCARDIAL INFARCTION. THE UPPER REFERENCE LIMIT (URL) OF TROPONIN, DEFINED THE 99TH PERCENTILE OF cTnI DISTRIBUTION IN A REFERENCE POPULATION, HAS BEEN CONFIRMED THE DECISION THRESHOLD FOR LA DIAGNOSIS. Performed By: #### L ACT #### [facility] [address] [address] [address] Ellie Smith CK [Catalytic activity/Vol] 213 U/L Critically high 26-192 [facility] Comment on above: Performed By: #### P OCGLUC #### [facility] [address] [place] [address] Dr. Ellie Smith CK.MB [Mass/Vol] 0.90 ng/mL Normal <=3.60 [facility] Comment on above: Performed By: #### P OCGLUC #### [facility] [address] [address] [address] Ellie Smith HSTROP 108.1 pg/mL Critically high 4.0-51.3 [facility] Comment on above: Result Comment: CUT- OFF POINTS HAVE BEEN ESTABLISHED BASED ON THE FOURTH UNIVERSAL DEFINITIONS OF MYOCARDIAL INFARCTION. THE UPPER REFERENCE LIMIT (URL) OF TROPONIN, DEFINED THE 99TH PERCENTILE OF cTnI DISTRIBUTION IN A REFERENCE POPULATION, HAS BEEN CONFIRMED THE DECISION THRESHOLD FOR LA DIAGNOSIS. repeated Performed By: #### P OCGLUC #### [facility] [address] [address] [address] Ellie Smith CBC AUTO DIFFon 01-27-2022 BASO # 0.1 103/ul Normal 0.0-0.[address] [facility] Comment on above: Performed By: #### P OCGLUC #### [facility] [address] [place] [address] Dr. Ellie Smith Basophils/100 WBC (Bld) 0.5 % Normal 0.2-2.[address] [facility] Comment on above: Performed By: #### P OCGLUC #### [facility] [address] [address] [address] Ellie Smith EO # 0.4 103/ul Normal 0.0-0.[address] [facility] Comment on above: Performed By: #### P OCGLUC #### [facility] [address] [address] [address] Ellie Smith Eosinophils/100 WBC (Bld) 3.2 % Normal 0.9-7.[address] [facility] Comment on above: Performed By: #### P OCGLUC #### [facility] [address] [address] [address] Ellie Smith Erythrocyte distribution width (RBC) [Ratio] 13.7 % Normal 11.0-15.[address] [facility] Comment on above: Performed By: #### P OCGLUC #### [facility] [address] [place] [address] Dr. Ellie Smith Hematocrit (Bld) [Volume fraction] 40.5 % Normal 36.0-48.[address] [facility] Comment on above: Performed By: #### P OCGLUC #### [facility] [address] [place] [address] Dr. Ellie Smith Hemoglobin (Bld) [Mass/Vol] 13.4 g/dL Normal 12.0-16.[address] [facility] Comment on above: Performed By: #### P OCGLUC #### [facility] [address] [place] [address] Dr. Ellie Smith IG # 0.04 10e3/ul Critically high 0.00-0.[address] [facility] Comment on above: Performed By: #### P OCGLUC #### [facility] [address] [address] [address] Ellie Smith IG % 0.3 % Normal 0.0-0.[address] [facility] Comment on above: Performed By: #### P OCGLUC #### [facility] [address] [place] [address] Dr. Ellie Smith LYMPH # 2.4 103/ul Normal 1.2-3.8 [facility] Comment on above: Performed By: #### P OCGLUC #### [facility] [address] [address] [address] Ellie Smith Lymphocytes/100 WBC (Bld) 18.6 % Critically low 20.5-60.[address] [facility] Comment on above: Performed By: #### P OCGLUC #### [facility] [address] [address] [address] Ellie Smith MANUAL DIFF REQ NO Normal [facility] Comment on above: Performed By: #### P OCGLUC #### [facility] [address] [address] [address] Ellie Smith MCH (RBC) [Entitic mass] 31.0 pg Normal 26.7-34.[address] [facility] Comment on above: Performed By: #### P OCGLUC #### [facility] [address] [place] [address] Dr. Ellie Smith MCHC (RBC) [Mass/Vol] 33.1 g/dL Normal 29.9-35.[address] [facility] Comment on above: Performed By: #### P OCGLUC #### [facility] [address] [place] [address] Dr. Ellie Smith MCV (RBC) [Entitic vol] 93.8 fL Normal 81.0-99.[address] [facility] Comment on above: Performed By: #### P OCGLUC #### [facility] [address] [place] [address] Dr. Ellie Smith MONO # 0.7 103/ul Normal 0.3-0.[address] [facility] Comment on above: Performed By: #### P OCGLUC #### [facility] [address] [place] [address] Dr. Ellie Smith Monocytes/100 WBC (Bld) 5.5 % Normal 1.7-12.[address] [facility] Comment on above: Performed By: #### P OCGLUC #### [facility] [address] [place] [address] Dr. Ellie Smith NEUT # 9.1 103/ul Critically high 1.4-6.[address] [facility] Comment on above: Performed By: #### P OCGLUC #### [facility] [address] [address] [address] Ellie Smith Neutrophils/100 WBC (Bld) 71.9 % Normal 43.0-75.[address] [facility] Comment on above: Performed By: #### P OCGLUC #### [facility] [address] [address] [address] Ellie Smith Platelet mean volume (Bld) [Entitic vol] 9.6 fL Normal 9.5-13.[address] [facility] Comment on above: Performed By: #### P OCGLUC #### [facility] [address] [address] [address] Ellie Smith PLT 307 103/ul Normal 150-[address] [facility] Comment on above: Performed By: #### P OCGLUC #### [facility] [address] [address] [address] Ellie Smith RBC 4.32 106/ul Normal 4.20-5.40 [facility] Comment on above: Performed By: #### P OCGLUC #### [facility] [address] [address] [address] Ellie Smith WBC 12.6 103/ul Critically high 4.0-11.[address] [facility] Comment on above: Performed By: #### P OCGLUC #### [facility] [address] ABD/PELVIS WO CONon 01-27 CT ABD/PELVIS WO CON EXAMINATION: CT ABD /PELVIS WO CON, 01/27/2022 1:16 AM EDT HISTORY: CALCULUS OF KIDNEY left and right flank pain COMPARISON: None available TECHNIQUE: CT scan of the abdomen and pelvis was performed without IV contrast. CT dose reduction technique was used, including Automated Exposure Control. FINDINGS: Visualized lung bases demonstrate mild linear atelectasis/scar. Visualized cardiac apex demonstrates trace anterior pericardial effusion 5 mm thick and partially visualized coronary artery calcifications. Small hiatal hernia. Liver, gallbladder, pancreas, spleen, adrenal glands, kidneys, urinary bladder, and other pelvic structures are unremarkable. Uterus is surgically absent. A dilated or inflamed appendix is not seen. Focal 2.8 cm infrarenal abdominal aortic aneurysmal dilatation with heavy atherosclerotic calcifications of the wall. Diffuse liquid stool throughout the large bowel to the rectum and fluid-filled small bowel. Colonic diverticula without surrounding inflammatory stranding/free fluid. No evidence for small bowel obstruction, large ascites, or free air. No acute bony abnormality. IMPRESSION: No radiopaque obstructing stones, hydronephrosis, or perinephric fluid collection. Diffuse liquid stool throughout the large bowel to the rectum and fluid-filled small bowel. Finding likely reflects underlying diarrhea/enteritis. Colonic diverticula without surrounding inflammatory stranding/free fluid. Focal 2.8 cm infrarenal abdominal aortic aneurysmal dilatation with heavy atherosclerotic calcifications of the aortic wall. Electronically authenticated by: JONA ORLANDO Date: 2022-01-27 02:[address] [facility] CTA CHEST WO W CONon 022 CTA CHEST WO W CON EXAMINATION: CTA TANGELA ST WO W CON HISTORY: SHORTNESS OF BREATH COMPARISON: Chest x-ray 01/27/2022 TECHNIQUE: CT angiography of the pulmonary arteries following the administration of 75 mL Omnipaque 350 intravenous contrast. Coronal and sagittal MIP (maximum intensity projection) images were performed. 3-D reconstruction. Dose reduction techniques were achieved by using automated exposure control and/or adjustment of mA and/or kV according to patient size and/or use of iterative reconstruction technique. FINDINGS: No evidence for acute pulmonary embolism, thoracic aortic aneurysm, or aortic dissection. Scattered atheromatous plaque of the descending thoracic aorta. Cardiomegaly and trace pericardial effusion, measuring up to 6 mm thick at the left dependent cardiac border portion. Left and right coronary artery stents and/or calcifications. Mild nodular secretions of the right bronchus and right lower bronchioles likely reflecting small areas of mucous plugging. Extensive bilateral upper lobe and moderate bilateral lower lobe centrilobular emphysema. Mild bibasilar linear lung atelectasis/scar. No lung consolidation, large pleural effusions, pneumothorax, or suspicious groundglass lung infiltrates. Small hiatal hernia. No acute bony abnormality. IMPRESSION: No evidence for acute pulmonary embolism, thoracic aortic aneurysm, or aortic dissection. Cardiomegaly and trace pericardial effusion, measuring up to 6 mm thick at the left dependent cardiac border portion. Mild nodular secretions of the right bronchus and right lower bronchioles likely reflecting small areas of mucous plugging. Extensive bilateral upper lobe and moderate bilateral lower lobe centrilobular emphysema. Mild bibasilar linear lung atelectasis/scar. Electronically authenticated by: JONA ORLANDO Date: 2022-01-27 03:46 Normal [facility] Covid-19 PCR (CVDTB)on 01-10 SARS-CoV-2 (COVID-19) RNA MEI+probe Ql (Unsp spec) Not detected Normal NOT DETECTED [facility] Comment on above: Result Comment: When diagnostic testing is negative, the possibility of a false negative should be considered in the context of a patient's recent exposures and the presence of clinical signs and symptoms consistent with SARS-CoV-2. This test is not yet approved or cleared by the [place] FDA. When there are no FDA-approved or cleared tests available, and other criteria are met, FDA can make tests available under an emergency access mechanism called an Emergency Use Authorization (EUA). The EUA for this test is supported by the [employer] of Health and Human Service's declaration that circumstances exist to justify the emergency use of in vitro diagnostics for the detection and/or diagnosis of the virus that causes COVID-19. This EUA will remain in effect for the duration of the COVID-19 declaration justifying emergency of IVDs, unless it is terminated or revoked by the FDA (after which the test may no longer be used). Performed By: #### R [email or web address] #### [facility] [address] [place] [address] Dr. Ellie Smith D-DIMERon 01-27-2022 D-DIMER 0.71 mg/L FEU Critically high <=0.59 [facility] Comment on above: Performed By: #### L ACT #### [facility] [address] [address] [address] Ellie Smith D-DIMER COMMENTS SEE BELOW Normal [facility] Comment on above: Result Comment: Incr eases in D-Dimer concentration observed with thromboembolic events can be variable due to localization, size, and age of the thrombus. Therefore, a thromboembolic event cannot be diagnosed with certainty on the basis of the reference range. D-Dimers may also be elevated for a variety of disorders including: advanced age, , coronary disease, cancer, liver disease, infection, inflammation, hematoma, DIC, trauma, post-surgery, diabetes, thrombolytic or anticoagulant therapy, stress, and generalized hospitalization. Performed By: #### L ACT #### [facility] [address] [place] [address] Dr. Ellie Smith ER URINE PROFILEon 2 Bilirubin Ql (U) Negative Normal NEGATIVE [facility] Comment on above: Performed By: #### P OCGLUC #### [facility] [address] [place] [address] Dr. Ellie Smith Clarity (U) CLEAR Normal CLEAR [facility] Comment on above: Performed By: #### P OCGLUC #### [facility] [address] [place] [address] Dr. Ellie Smith Color (U) LT. YELLOW Normal YELLOW [facility] Comment on above: Performed By: #### P OCGLUC #### [facility] [address] [place] [address] Dr. Ellie Smith ERUAHD A micrscopic examina tion will be performed if indicated. Normal [facility] Comment on above: Performed By: #### P OCGLUC #### [facility] [address] [place] [address] Dr. Ellie Smith Glucose Ql (U) Negative Normal NEGATIVE [facility] Comment on above: Performed By: #### P OCGLUC #### [facility] [address] [place] [address] Dr. Ellie Smith Hemoglobin Ql (U) Negative Normal NEGATIVE [facility] Comment on above: Performed By: #### P OCGLUC #### [facility] [address] [place] [address] Dr. Ellie Smith Ketones Ql (U) Negative Normal NEGATIVE [facility] Comment on above: Performed By: #### P OCGLUC #### [facility] [address] [place] [address] Dr. Ellie Smith LEUKOCYTES Negative Normal NEGATIVE [facility] Comment on above: Performed By: #### P OCGLUC #### [facility] [address] [place] [address] Dr. Ellie Smith Nitrite Ql (U) Negative Normal NEGATIVE [facility] Comment on above: Performed By: #### P OCGLUC #### [facility] [address] [address] [address] Ellie Smith pH (U) 6.0 [pH] Normal 5-[address] [facility] Comment on above: Performed By: #### P OCGLUC #### [facility] [address] [place] [address] Dr. Ellie Smith SPEC GRAVITY 1.010 Normal 1.005-<=1. [address] [facility] Comment on above: Performed By: #### P OCGLUC #### [facility] [address] [place] [address] Dr. Ellie Smith UA PROTEIN Negative Normal NEGATIVE/ TRACE [facility] Comment on above: Performed By: #### P OCGLUC #### [facility] [address] [place] [address] Dr. Ellie Smith UR MICRO IND NOT INDICATED Normal [facility] Comment on above: Performed By: #### P OCGLUC #### [facility] [address] [place] [address] Dr. Ellie Smith Urobilinogen Qn (U) 0.2 {Tamia'U}/dL Normal 0.2 - 1. [address] [facility] Comment on above: Performed By: #### P OCGLUC #### [facility] [address] [place] [address] Dr. Ellie Smith LACTATE/LACTIC ACIDon 2021 Lactate [Moles/Vol] 1.8 mmol/L Normal 0.4-1.[address] [facility] Comment on above: Performed By: #### L ACT #### [facility] [address] [place] [address] Dr. Ellie Smith POINT OF CARE GLUCOSEon 01-10 Glucose [Mass/Vol] 132 mg/dL Critically high 74-[address] [facility] Comment on above: Performed By: #### L ACT #### [facility] [address] [place] [address] Dr. Ellie Smith Glucose [Mass/Vol] 99 mg/dL Normal 74-[address] [facility] Comment on above: Performed By: #### L ACT #### [facility] [address] [address] [address] Ellie Smith Glucose [Mass/Vol] 117 mg/dL Critically high 74-106 [facility] Comment on above: Performed By: #### P OCGLUC #### [facility] [address] [address] [address] Ellie Smith Glucose [Mass/Vol] 105 mg/dL Normal 74-[address] [facility] Comment on above: Performed By: #### L ACT #### [facility] [address] [address] [address] Ellie Smith PROF 14(COMP METB)on 022 Albumin [Mass/Vol] 3.6 g/dL Normal 3.4-5.[address] [facility] Comment on above: Performed By: #### C MP #### [facility] [address] [address] [address] Ellie Smith Albumin/Globulin [Mass ratio] 1.1 {ratio} Normal [facility] Comment on above: Performed By: #### C MP #### [facility] [address] [address] [address] Ellie Smith ALP [Catalytic activity/Vol] 61 U/L Normal 46-[address] [facility] Comment on above: Performed By: #### C MP #### [facility] [address] [address] [address] Ellie Smith ALT [Catalytic activity/Vol] 53 U/L Normal 14-[address] [facility] Comment on above: Performed By: #### C MP #### [facility] [address] [address] [address] Ellie Smith Anion gap [Moles/Vol] 14.7 mmol/L Normal [facility] Comment on above: Performed By: #### C MP #### [facility] [address] [address] [address] Ellie Smith AST [Catalytic activity/Vol] 43 U/L Critically high 15-[address] [facility] Comment on above: Performed By: #### C MP #### [facility] [address] [address] [address] Ellie Smith Bilirubin [Mass/Vol] 0.4 mg/dL Normal 0.2-1.[address] [facility] Comment on above: Performed By: #### C MP #### [facility] [address] [address] [address] Ellie Smith Calcium [Mass/Vol] 8.6 mg/dL Normal 8.5-10.1 [facility] Comment on above: Performed By: #### C MP #### [facility] [address] [address] [address] Ellie Smith Chloride [Moles/Vol] 99 mmol/L Normal 98-107 [facility] Comment on above: Performed By: #### C MP #### [facility] [address] [place] [address] Dr. Ellie Smiht CO2 [Moles/Vol] 22.4 mmol/L Normal 21.0-32.0 [facility] Comment on above: Performed By: #### C MP #### [facility] [address] [place] [address] Dr. Ellie Smith Creatinine [Mass/Vol] 0.90 mg/dL Normal 0.55-1.02 [facility] Comment on above: Performed By: #### C MP #### [facility] [address] [place] [address] Dr. Ellie Smith EGFR-AF BARBADIAN >60 Normal >=60 [facility] Comment on above: Performed By: #### C MP #### [facility] [address] [place] [address] Dr. Ellie Smith EGFR-NON AF BARBADIAN 60 mL/min/1.73m2 Normal >=60 [facility] Comment on above: Performed By: #### C MP #### [facility] [address] [address] [address] Ellie Smith Globulin (S) [Mass/Vol] 3.3 g/dL Normal [facility] Comment on above: Performed By: #### C MP #### [facility] [address] [place] [address] Dr. Ellie Smith Glucose [Mass/Vol] 108 mg/dL Critically high 74-106 [facility] Comment on above: Performed By: #### C MP #### [facility] [address] [address] [address] Ellie Smith Potassium [Moles/Vol] 4.1 mmol/L Normal 3.5-5.[address] [facility] Comment on above: Performed By: #### C MP #### [facility] [address] [address] [address] Ellie Smith Protein [Mass/Vol] 6.9 g/dL Normal 6.4-8.[address] [facility] Comment on above: Performed By: #### C MP #### [facility] [address] [address] [address] Ellie Smith Sodium [Moles/Vol] 132 mmol/L Critically low 136-145 [facility] Comment on above: Performed By: #### C MP #### [facility] [address] [address] [address] Ellie Smith Urea nitrogen [Mass/Vol] 15.0 mg/dL Normal 7.0-18.[address] [facility] Comment on above: Performed By: #### C MP #### [facility] [address] [address] [address] Ellie Smith Urea nitrogen/Creatinine [Mass ratio] 16.7 mg/mg Normal [facility] Comment on above: Performed By: #### C MP #### [facility] [address] [address] [address] Ellie Smith PROTIMEon 01-27-2022 INR Coag (PPP) [Relative time] 1.00 {INR} Normal [facility] Comment on above: Performed By: #### P OCGLUC #### [facility] [address] [address] [address] Ellie Smith INR GUIDELINES SEE BELOW Normal [facility] Comment on above: Result Comment: HIMANSHU RED INR: 2.0 - 3.0 CONDITIONS NOT LISTED BELOW 2.5 - 3.5 FOR PROSTHETIC HEART VALVE REPLACEMENT 2.5 - 3.5 RECURRENT THROMBOSIS Performed By: #### P OCGLUC #### [facility] [address] [address] [address] Ellie Smith PT Coag (PPP) [Time] 10.8 s Normal 9.0-11.[address] [facility] Comment on above: Performed By: #### P OCGLUC #### [facility] [address] [address] [address] Ellie Smith PTTon 01-27-2022 aPTT Coag (Bld) [Time] 28.6 s Normal 22.3-36.2 [facility] Comment on above: Performed By: #### L ACT #### [facility] [address] [address] [address] Ellie Smith TROPONIN, HIGH SENSITIVITYon 01-27-2022 HSTROP 116.4 pg/mL Critically high 4.0-51.[address] [facility] Comment on above: Result Comment: CUT- OFF POINTS HAVE BEEN ESTABLISHED BASED ON THE FOURTH UNIVERSAL DEFINITIONS OF MYOCARDIAL INFARCTION. THE UPPER REFERENCE LIMIT (URL) OF TROPONIN, DEFINED THE 99TH PERCENTILE OF cTnI DISTRIBUTION IN A REFERENCE POPULATION, HAS BEEN CONFIRMED THE DECISION THRESHOLD FOR LA DIAGNOSIS. Performed By: #### A 1C #### [facility] [address] [place] [address] Dr. Ellie Smith HSTROP 151.5 pg/mL Critically high 4.0-51.[address] [facility] Comment on above: Result Comment: CUT- OFF POINTS HAVE BEEN ESTABLISHED BASED ON THE FOURTH UNIVERSAL DEFINITIONS OF MYOCARDIAL INFARCTION. THE UPPER REFERENCE LIMIT (URL) OF TROPONIN, DEFINED THE 99TH PERCENTILE OF cTnI DISTRIBUTION IN A REFERENCE POPULATION, HAS BEEN CONFIRMED THE DECISION THRESHOLD FOR LA DIAGNOSIS. Performed By: #### P OCGLUC #### [facility] [address] [address] [address] Ellie Smith XR CHEST 1 Von 01-27-2022 XR CHEST 1 V EXAM: XR CHEST 1 V HISTORY: SHORTNESS OF BREATH COMPARISON: Chest x-ray 01/18/2022 TECHNIQUE: Single frontal view chest x-ray FINDINGS: Enlarged cardiac silhouette. Mild bibasilar streaky lung opacities. No large pleural effusions, pneumothorax, or acute bony abnormality. Calcified plaque thoracic aortic knob. IMPRESSION: Enlarged cardiac silhouette. Mild bibasilar streaky lung atelectasis, less likely infiltrates. Electronically authenticated by: JONA ORLANDO Date: 2022-01-27 01:08 Normal [facility] Albumin [Mass/volume] in Ser um or PlasmaOrdered By: Diony Hooks on 01-21-2022 Albumin [Mass/Vol] 3.4 g/dL 3.2-5.5 [facility] Basophils Auto (Bld) [#/Vol] Ordered By: Diony Hooks on 01-21-2022 Basophils (Bld) [#/Vol] 0.0 10*3/uL 0.0-0.2 [facility] Basophils/100 WBC Auto (Bld) Ordered By: Diony Hooks on 01-21-2022 Basophils/100 WBC (Bld) 0.4 % . [facility] Blood hemoglobin measurement (mass/volume)Ordered By: Diony Hooks on 01-21-2022 Hemoglobin (Bld) [Mass/Vol] 13.3 g/dL 11.8-15.4 [facility] Blood leukocytes automated c ount (number/volume)Ordered By: Diony Hooks on 01-21-2022 WBC (Bld) [#/Vol] 8.5 10*3/uL 4.5-11.0 [facility] Creatinine and Glomerular fi ltration rate.predicted panel (S/P/Bld)Ordered By: Diony Hooks on 01-21-2022 Creatinine [Mass/Vol] 0.72 mg/dL 0.44-1.03 [facility] Eosinophils Auto (Bld) [#/Vo l]Ordered By: Diony Hooks on 01-21-2022 Eosinophils (Bld) [#/Vol] 0.4 10*3/uL 0.0-0.45 [facility] Eosinophils/100 WBC Auto (Bl d)Ordered By: Diony Hooks on 01-21-2022 Eosinophils/100 WBC (Bld) 4.2 % . [facility] Erythrocyte distribution wid th Auto (RBC) [Ratio]Ordered By: Diony Hooks on 01-21-2022 Erythrocyte distribution width (RBC) [Ratio] 14.4 % 11.9-15.3 [facility] Estimated glomerular filtrat ion rate (GFR) non- AmericanOrdered By: Diony Hooks on 01-21-2022 GFR/1.73 sq M.predicted among non-blacks MDRD (S/P/Bld) [Vol rate/Area] > 60 mL/Min [facility] Globulin Calc (S) [Mass/Vol] Ordered By: Diony Hooks on 01-21-2022 Globulin (S) [Mass/Vol] 2.4 g/dL [facility] Glucose Glucometer (BldC) [M ass/Vol]Ordered By: Wiley Beal on 01-21-2022 Glucose [Mass/Vol] 93 mg/dL [facility] Comment on above: Random Glucose Refer ence Range is dependent on time and content of last meal. Glucose of more than 200 mg/dL in a nonstressed, ambulatory subject supports the diagnosis of Diabetes Mellitus. Hematocrit Auto (Bld) [Volum e fraction]Ordered By: Diony Hooks on 01-21-2022 Hematocrit (Bld) [Volume fraction] 40.5 % 34.0-46.4 [facility] - Hematology and Cell countsOrdered By: Diony Hooks on 01-21-2022 Nucleated RBC/100 WBC (Bld) [Ratio] 0.0 % 0-0.5 [facility] Lymphocytes Auto (Bld) [#/Vo l]Ordered By: Diony Hooks on 01-21-2022 Lymphocytes (Bld) [#/Vol] 1.2 10*3/uL 1.00-4.8 [facility] Lymphocytes/100 WBC Auto (Bl d)Ordered By: Diony Hooks on 01-21-2022 Lymphocytes/100 WBC (Bld) 14.2 % . [facility] MCH Auto (RBC) [Entitic mass ]Ordered By: Diony Hooks on 01-21-2022 MCH (RBC) [Entitic mass] 30.7 pg 24.7-34.3 [facility] MCHC Auto (RBC) [Mass/Vol]Or dered By: Diony Hooks on 01-21-2022 MCHC (RBC) [Mass/Vol] 32.9 g/dL 32.0-35.0 [facility] MCV Auto (RBC) [Entitic vol] Ordered By: Diony Hooks on 01-21-2022 MCV (RBC) [Entitic vol] 93.1 fL 80-100 [facility] Monocytes Auto (Bld) [#/Vol] Ordered By: Diony Hooks on 01-21-2022 Monocytes (Bld) [#/Vol] 0.6 10*3/uL 0.0-0.8 [facility] Monocytes/100 WBC Auto (Bld) Ordered By: Diony Hooks on 01-21-2022 Monocytes/100 WBC (Bld) 6.7 % . [facility] Neutrophils Auto (Bld) [#/Vo l]Ordered By: Diony Hooks on 01-21-2022 Neutrophils (Bld) [#/Vol] 6.3 10*3/uL 1.8-7.7 [facility] Neutrophils/100 WBC Auto (Bl d)Ordered By: Diony Hooks on 01-21-2022 Neutrophils/100 WBC (Bld) 74.5 % . [facility] No Panel InformationOrdered By: Wiley Beal on 01-21-2022 Bedside Glucose Comment Glu2: cleaned meter [facility] No Panel InformationOrdered By: Diony Hooks on 01-21-2022 Estimated GFR () > 60 mL/Min [facility] Comment on above: GFR estimated refere nce range: According to KDOQI guidelines, <60 ml/min/1.73m2 is sufficient to diagnose a patient with chronic kidney disease. Pharmacy Creatinine Clearance (Chem 55.72 [facility] Platelet mean volume Auto (B ld) [Entitic vol]Ordered By: Diony Hooks on 01-21-2022 Platelet mean volume (Bld) [Entitic vol] 7.8 fL 6.3-10.7 [facility] Platelets Auto (Bld) [#/Vol] Ordered By: Diony Hooks on 01-21-2022 Platelets (Bld) [#/Vol] 235 10*3/uL 150-450 [facility] Protein [Mass/volume] in Ser um or PlasmaOrdered By: Diony Hooks on 01-21-2022 Protein [Mass/Vol] 5.8 g/dL 6.1-7.9 [facility] RBC Auto (Bld) [#/Vol]Ordere d By: Diony Hooks on 01-21-2022 RBC (Bld) [#/Vol] 4.35 10*6/uL 3.60-5.00 [facility] Serum or plasma alanine potter otransferase measurement without P-5'-P (enzymatic activiOrdered By: Diony Hooks on 01-21-2022 ALT No additional P-5'-P [Catalytic activity/Vol] 16 U/L 10-60 [facility] Serum or plasma albumin/glob ulin mass ratioOrdered By: Diony Hooks on 01-21-2022 Albumin/Globulin [Mass ratio] 1.4 {ratio} [facility] Serum or plasma alkaline inge sphatase measurement (enzymatic activity/volume)Ordered By: Diony Hooks on 01-21-2022 ALP [Catalytic activity/Vol] 43 U/L 32-92 [facility] Serum or plasma aspartate am inotransferase measurement (enzymatic activity/volume)Ordered By: Diony Hooks on 01-21-2022 AST [Catalytic activity/Vol] 25 U/L 10-42 [facility] Serum or plasma calcium norma urement (mass/volume)Ordered By: Diony Hooks on 01-21-2022 Calcium [Mass/Vol] 9.1 mg/dL 8.2-10.2 [facility] Serum or plasma chloride tam surement (moles/volume)Ordered By: Diony Hooks on 01-21-2022 Chloride [Moles/Vol] 104 mmol/L 95-114 [facility] Serum or plasma glucose norma urement (mass/volume)Ordered By: Diony Hooks on 01-21-2022 Glucose [Mass/Vol] 98 mg/dL 70-100 [facility] Comment on above: ADA recommended refe rence range Random Glucose Reference Range is dependent on time and content of last meal. Glucose of more than 200 mg/dL in a nonstressed, ambulatory subject supports the diagnosis of Diabetes Mellitus. Serum or plasma potassium me asurement (moles/volume)Ordered By: Diony Hooks on 01-21-2022 Potassium [Moles/Vol] 3.8 mmol/L 3.5-5.1 [facility] Serum or plasma sodium measu rement (moles/volume)Ordered By: Diony Hooks on 01-21-2022 Sodium [Moles/Vol] 135 mmol/L 136-146 [facility] Serum or plasma total biliru bin measurement (mass/volume)Ordered By: Diony Hooks on 01-21-2022 Bilirubin [Mass/Vol] 0.9 mg/dL 0.3-1.2 [facility] Serum or plasma total carbon dioxide measurement (moles/volume)Ordered By: Diony Hooks on 01-21-2022 CO2 [Moles/Vol] 23.4 mmol/L 22.0-30.0 [facility] Serum or plasma urea nitroge n measurement (mass/volume)Ordered By: Diony Hooks on 01-21-2022 Urea nitrogen [Mass/Vol] 9 mg/dL 03-04 [facility] Activated partial thrombopla stin time (aPTT) in platelet poor plasma by coagulation aOrdered By: Wiley Beal on 01-20-2022 aPTT Coag (PPP) [Time] 70.5 s 25.1-36.5 [facility] Cholesterol [Mass/volume] in Serum or PlasmaOrdered By: Justa Westfall on 01-19-2022 Cholesterol [Mass/Vol] 181 mg/dL 140-200 [facility] Comment on above: Chol less than 200 m g/dl low risk Chol 201-239 mg/dl borderline risk Chol 240 mg/dl and greater high risk Cholesterol in LDL Calc [Mas s/Vol]Ordered By: Justa Westfall on 01-19-2022 Cholesterol in LDL [Mass/Vol] 112 mg/dL 0-100 [facility] Comment on above: LDL ATP III CLASSIFI CATION LDL less than 100 mg/dL Optimal LDL 100-129 mg/dL Near or above optimal LDL 130-159 mg/dL Borderline high LDL 160-189 mg/dL High LDL greater than 189 mg/dL Very high Cholesterol in VLDL Calc [Ma ss/Vol]Ordered By: Justa Westfall on 01-19-2022 Cholesterol in VLDL [Mass/Vol] 22 mg/dL [facility] - Chemistry and C hemistry - challengeOrdered By: Justa Westfall on 01-19-2022 Magnesium [Mass/Vol] 1.4 mg/dL 1.6-2.6 [facility] - CoagulationOrde red By: Justa Westfall on 01-19-2022 PT Coag (PPP) [Time] 11.7 s 9.0-12.9 [facility] Platelet poor plasma interna tional normalized ratio (INR) by coagulation assay (relatOrdered By: Justa Westfall on 01-19-2022 INR Coag (PPP) [Relative time] 1.0 {INR} [facility] Comment on above: INR Therapeutic Rang e A) Pre- and Peroperative OAT started two weeks before surgery. NOT HIP SURGERY: 1.5 - 2.5 HIP SURGERY: 2 - 3 B) Primary and secondary prevention of venous THROMBOSIS: 2 - 3 C) Active venous thrombosis, pulmonary embolism and prevention of recurrent venous thrombosis: 2 - 3 D) Prevention of arterial thromboembolism including patients with mechanical heart valves: 3 - 4.5 Serum or plasma high density lipoprotein (HDL) cholesterol measurementOrdered By: Justa Westfall on 01-19-2022 Cholesterol in HDL [Mass/Vol] 46 mg/dL 35-85 [facility] Comment on above: HDL CHOL ATP-III CLA SSIFICATION Cardiovascular Risk HDL > or equal to 60 mg/dL LOW HDL < 40 mg/dL HIGH Serum or plasma total choles terol/high density lipoprotein (HDL) cholesterol mass ratOrdered By: Justa Westfall on 01-19-2022 Cholesterol.total/Chol esterol in HDL [Mass ratio] 3.9 {ratio} <5.0 [facility] Triglyceride [Mass/volume] i n Serum or PlasmaOrdered By: Justa Westfall on 01-19-2022 Triglyceride [Mass/Vol] 113 mg/dL 35-149 [facility] Comment on above: TRIG ATP III CLASSIF ICATION TRIG less than 150 mg/dL Normal TRIG 150-199 mg/dL Borderline high TRIG 200-500 mg/dL High TRIG greater than 500 mg/dL Very high Standard traceable to the Center for Disease Conrtrol and Prevention (CDC) test method. Troponin I.cardiac [Mass/vol ume] in Serum or Plasma by High sensitivity methodOrdered By: Justa Westfall on 01-19-2022 Troponin I.cardiac High sensitivity method [Mass/Vol] 3577 pg/mL 0-15 [facility] Comment on above: Results called at 0943 on 01/19/22 BNPon 01-18-2022 Natriuretic peptide B (Bld) [Mass/Vol] 1222.0 pg/mL Normal <=1,800.0 [facility] Comment on above: Performed By: #### A 1C #### [facility] [address] [place] [address] Dr. Ellie Smith CBC AUTO DIFFon 01-18-2022 BASO # 0.1 103/ul Normal 0.0-0.[address] [facility] Comment on above: Performed By: #### R [id number] #### [facility] [address] [place] [address] Dr. Ellie Smith Basophils/100 WBC (Bld) 0.5 % Normal 0.2-2.[address] [facility] Comment on above: Performed By: #### R [id number] #### [facility] [address] [place] [address] Dr. Ellie Smith EO # 0.2 103/ul Normal 0.0-0.7 [facility] Comment on above: Performed By: #### R [id number] #### [facility] [address] [place] [address] Dr. Ellie Smith Eosinophils/100 WBC (Bld) 2.4 % Normal 0.9-7.[address] [facility] Comment on above: Performed By: #### R [id number] #### [facility] [address] [place] [address] Dr. Ellie Smith Erythrocyte distribution width (RBC) [Ratio] 14.1 % Normal 11.0-15.0 [facility] Comment on above: Performed By: #### R [id number] #### [facility] [address] [place] [address] Dr. Ellie Smith Hematocrit (Bld) [Volume fraction] 42.2 % Normal 36.0-48.0 [facility] Comment on above: Performed By: #### R [id number] #### [facility] [address] [place] [address] Dr. Ellie Smith Hemoglobin (Bld) [Mass/Vol] 13.9 g/dL Normal 12.0-16.0 [facility] Comment on above: Performed By: #### R [id number] #### [facility] [address] [place] [address] Dr. Ellie Smith IG # 0.02 10e3/ul Normal 0.00-0.03 [facility] Comment on above: Performed By: #### R [id number] #### [facility] [address] [place] [address] Dr. Ellie Smith IG % 0.2 % Normal 0.0-0.5 [facility] Comment on above: Performed By: #### R [id number] #### [facility] [address] [place] [address] Dr. Ellie Smith LYMPH # 2.1 103/ul Normal 1.2-3.8 [facility] Comment on above: Performed By: #### R [id number] #### [facility] [address] [place] [address] Dr. Ellie Smith Lymphocytes/100 WBC (Bld) 21.2 % Normal 20.5-60.[address] [facility] Comment on above: Performed By: #### R [id number] #### [facility] [address] [place] [address] Dr. Ellie Smith MANUAL DIFF REQ NO Normal [facility] Comment on above: Performed By: #### R [id number] #### [facility] [address] [place] [address] Dr. Ellie Smith MCH (RBC) [Entitic mass] 31.2 pg Normal 26.7-34.0 [facility] Comment on above: Performed By: #### R [id number] #### [facility] [address] [place] [address] Dr. Ellie Smith MCHC (RBC) [Mass/Vol] 32.9 g/dL Normal 29.9-35.2 [facility] Comment on above: Performed By: #### R [id number] #### [facility] [address] [place] [address] Dr. Ellie Smith MCV (RBC) [Entitic vol] 94.6 fL Normal 81.0-99.[address] [facility] Comment on above: Performed By: #### R [id number] #### [facility] [address] [place] [address] Dr. Ellie Smith MONO # 0.5 103/ul Normal 0.3-0.[address] [facility] Comment on above: Performed By: #### R [id number] #### [facility] [address] [place] [address] Dr. Ellie Smith Monocytes/100 WBC (Bld) 4.7 % Normal 1.7-12.[address] [facility] Comment on above: Performed By: #### R [id number] #### [facility] [address] [place] [address] Dr. Ellie Smith NEUT # 7.1 103/ul Critically high 1.4-6.[address] [facility] Comment on above: Performed By: #### R [id number] #### [facility] [address] [place] [address] Dr. Ellie Smith Neutrophils/100 WBC (Bld) 71.0 % Normal 43.0-75.[address] [facility] Comment on above: Performed By: #### R [id number] #### [facility] [address] [place] [address] Dr. Ellie Smith Platelet mean volume (Bld) [Entitic vol] 9.2 fL Critically low 9.5-13.[address] [facility] Comment on above: Performed By: #### R [id number] #### [facility] [address] [place] [address] Dr. Ellie Smith PLT 257 103/ul Normal 150-450 [facility] Comment on above: Performed By: #### R [id number] #### [facility] [address] [place] [address] Dr. Ellie Smith RBC 4.46 106/ul Normal 4.20-5.40 [facility] Comment on above: Performed By: #### R [id number] #### [facility] [address] [place] [address] Dr. Ellie Smith WBC 10.0 103/ul Normal 4.0-11.[address] [facility] Comment on above: Performed By: #### R [id number] #### [facility] [address] [place] [address] Dr. Ellie Smith Covid-19 PCR (CVDTB)on SARS-CoV-2 (COVID-19) RNA MEI+probe Ql (Unsp spec) Not detected Normal NOT DETECTED [facility] Comment on above: Result Comment: When diagnostic testing is negative, the possibility of a false negative should be considered in the context of a patient's recent exposures and the presence of clinical signs and symptoms consistent with SARS-CoV-2. This test is not yet approved or cleared by the [place] FDA. When there are no FDA-approved or cleared tests available, and other criteria are met, FDA can make tests available under an emergency access mechanism called an Emergency Use Authorization (EUA). The EUA for this test is supported by the [place] of Health and Human Service's declaration that circumstances exist to justify the emergency use of in vitro diagnostics for the detection and/or diagnosis of the virus that causes COVID-19. This EUA will remain in effect for the duration of the COVID-19 declaration justifying emergency of IVDs, unless it is terminated or revoked by the FDA (after which the test may no longer be used). Performed By: #### C VDTBH #### [facility] [address] [place] [address] Dr. Ellie Smith LIPASEon 01-18-2022 Lipase [Catalytic activity/Vol] 62.0 U/L Critically low 73.0-393.[address] [facility] Comment on above: Performed By: #### A 1C #### [facility] [address] [place] [address] Dr. Ellie Smith MAGNESIUMon 01-18-2022 Magnesium [Mass/Vol] 1.4 mg/dL Critically low 1.8-2.[address] [facility] Comment on above: Performed By: #### M G #### [facility] [address] [place] [address] Dr. Ellie Smith PROF 14(COMP METB)on 022 Albumin [Mass/Vol] 3.8 g/dL Normal 3.4-5.[address] [facility] Comment on above: Performed By: #### A 1C #### [facility] [address] [place] [address] Dr. Ellie Smith Albumin/Globulin [Mass ratio] 1.2 {ratio} Normal [facility] Comment on above: Performed By: #### A 1C #### [facility] [address] [place] [address] Dr. Ellie Smith ALP [Catalytic activity/Vol] 59 U/L Normal 46-[address] [facility] Comment on above: Performed By: #### A 1C #### [facility] [address] [place] [address] Dr. Ellie Smith ALT [Catalytic activity/Vol] 18 U/L Normal 14-[address] [facility] Comment on above: Performed By: #### A 1C #### [facility] [address] [place] [address] Dr. Ellie Smith Anion gap [Moles/Vol] 11.1 mmol/L Normal [facility] Comment on above: Performed By: #### A 1C #### [facility] [address] [place] [address] Dr. Ellie Smith AST [Catalytic activity/Vol] 14 U/L Critically low 15-[address] [facility] Comment on above: Performed By: #### A 1C #### [facility] [address] [place] [address] Dr. Ellie Smith Bilirubin [Mass/Vol] 0.3 mg/dL Normal 0.2-1.[address] [facility] Comment on above: Performed By: #### A 1C #### [facility] [address] [place] [address] Dr. Ellie Smith Calcium [Mass/Vol] 9.1 mg/dL Normal 8.5-10.[address] [facility] Comment on above: Performed By: #### A 1C #### [facility] [address] [place] [address] Dr. Ellie Smith Chloride [Moles/Vol] 104 mmol/L Normal 98-107 [facility] Comment on above: Performed By: #### A 1C #### [facility] [address] [address] [address] Ellie Smith CO2 [Moles/Vol] 26.9 mmol/L Normal 21.0-32.0 [facility] Comment on above: Performed By: #### A 1C #### [facility] [address] [address] [address] Ellie Smith Creatinine [Mass/Vol] 0.84 mg/dL Normal 0.55-1.02 [facility] Comment on above: Performed By: #### A 1C #### [facility] [address] [place] [address] Dr. Ellie Smith EGFR-AF BAR[place]IAN >60 Normal >=60 [facility] Comment on above: Performed By: #### A 1C #### [facility] [address] [place] [address] Dr. Ellie Smith EGFR-NON AF [place]IAN >60 Normal >=60 [facility] Comment on above: Performed By: #### A 1C #### [facility] [address] [place] [address] Dr. Ellie Smith Globulin (S) [Mass/Vol] 3.1 g/dL Normal [facility] Comment on above: Performed By: #### A 1C #### [facility] [address] [place] [address] Dr. Ellie Smith Glucose [Mass/Vol] 100 mg/dL Normal 74-106 [facility] Comment on above: Performed By: #### A 1C #### [facility] [address] [place] [address] Dr. Ellie Smith Potassium [Moles/Vol] 4.0 mmol/L Normal 3.5-5.1 [facility] Comment on above: Performed By: #### A 1C #### [facility] [address] [place] [address] Dr. Ellie Smith Protein [Mass/Vol] 6.9 g/dL Normal 6.4-8.2 [facility] Comment on above: Performed By: #### A 1C #### [facility] [address] [place] [address] Dr. Ellie Smith Sodium [Moles/Vol] 138 mmol/L Normal 136-[address] [facility] Comment on above: Performed By: #### A 1C #### [facility] [address] [place] [address] Dr. Ellie Smith Urea nitrogen [Mass/Vol] 14.0 mg/dL Normal 7.0-18.[address] [facility] Comment on above: Performed By: #### A 1C #### [facility] [address] [place] [address] Dr. Ellie Smith Urea nitrogen/Creatinine [Mass ratio] 16.7 mg/mg Normal [facility] Comment on above: Performed By: #### A 1C #### [facility] [address] [place] [address] Dr. Ellie Smith PROTIMEon 01-18-2022 INR Coag (PPP) [Relative time] 0.95 {INR} Normal [facility] Comment on above: Performed By: #### R EVRT3 #### [facility] [address] [place] [address] Dr. Ellie Smith INR GUIDELINES SEE BELOW Normal [facility] Comment on above: Result Comment: HIMANSHU RED INR: 2.0 - 3.0 CONDITIONS NOT LISTED BELOW 2.5 - 3.5 FOR PROSTHETIC HEART VALVE REPLACEMENT 2.5 - 3.5 RECURRENT THROMBOSIS Performed By: #### R EVRT3 #### [facility] [address] [place] [address] Dr. Ellie Smith PT Coag (PPP) [Time] 10.3 s Normal 9.0-11.[address] [facility] Comment on above: Performed By: #### R EVRT3 #### [facility] [address] [place] [address] Dr. Ellie Smith PTTon 01-18-2022 aPTT Coag (Bld) [Time] 27.1 s Normal 22.3-36.2 [facility] Comment on above: Performed By: #### R EVRT3 #### [facility] [address] [place], [place] [address] Dr. Ellie Smith TROPONIN, HIGH SENSITIVITYon 01-18-2022 HSTROP 512.5 pg/mL Critically high 4.0-51.[address] [facility] Comment on above: Result Comment: CUT- OFF POINTS HAVE BEEN ESTABLISHED BASED ON THE FOURTH UNIVERSAL DEFINITIONS OF MYOCARDIAL INFARCTION. THE UPPER REFERENCE LIMIT (URL) OF TROPONIN, DEFINED THE 99TH PERCENTILE OF cTnI DISTRIBUTION IN A REFERENCE POPULATION, HAS BEEN CONFIRMED THE DECISION THRESHOLD FOR LA DIAGNOSIS. repeated Performed By: #### A 1C #### [facility] [address] [place] [address] [address] Ellie Smith XR CHEST 1 Von 01-18-2022 XR CHEST 1 V EXAMINATION: XR CHES T 1 V HISTORY: Chest pain COMPARISON: None. TECHNIQUE: Portable chest FINDINGS: The lung parenchyma is free of consolidation or infiltrate. No pneumothorax or pleural effusion. The cardiac, mediastinal and hilar contours are normal. The visualized osseous structures exhibit no gross abnormality. IMPRESSION: No acute cardiopulmonary abnormality. Electronically authenticated by: NICOLE SANDERS Date: 2022-01-18 17:[address] [facility] Vital Signs Date Time Vital Sign Value Performing Clinician Facility 03-14-2023 12:00-0400 Body temperature 98.1 [degF] MD Priyanka Puentes Work Phone: [facility] 03-14-2023 12:00-0400 Diastolic blood pressure 72 mm[Hg] MD Priyanka Puentes Work Phone: [facility] 03-14-2023 12:00-0400 Heart rate 70 /min MD Priyanka Puentes Work Phone: [facility] 03-14-2023 12:00-0400 Respiratory rate 12 /min MD Priyanka Puentes Work Phone: [facility] 03-14-2023 12:00-0400 SaO2% (BldA) [Mass fraction] 95 % MD Priyanka Puentes Work Phone: [facility] 03-14-2023 12:00-0400 Systolic blood pressure 155 mm[Hg] MD Priyanka Puentes Work Phone: [facility] 03-14-2023 06:00-0400 Body weight 66.3 kg MD Priyanka Puentes Work Phone: [facility] 03-12-2023 20:20-0400 Body height 157.48 cm MD Priyanka Puentes Work Phone: [facility] 03-12-2023 17:59-0400 Diastolic blood pressure 91 mm[Hg] MD Priyanka Puentes Work Phone: [facility] 03-12-2023 17:59-0400 Systolic blood pressure 199 mm[Hg] MD Priyanka Puentes Work Phone: [facility] 03-12-2023 17:33-0400 Heart rate 110 /min MD Priyanka Puentes Work Phone: [facility] 03-12-2023 17:33-0400 Respiratory rate 18 /min MD Priyanka Puentes Work Phone: [facility] 03-12-2023 17:33-0400 SaO2% (BldA) [Mass fraction] 96 % MD Priyanka Puentes Work Phone: [facility] 03-12-2023 13:44-0400 Body height 157.48 cm MD Priyanka Puentes Work Phone: [facility] 03-12-2023 13:44-0400 Body temperature 98.6 [degF] MD Priyanka Puentes Work Phone: [facility] 03-12-2023 13:44-0400 Body weight 63.5 kg MD Priyanka Puentes Work Phone: [facility] 03-07-2023 08:00-0400 Body temperature 97.9 [degF] MD Priyanka Puentes Work Phone: [facility] 03-07-2023 08:00-0400 Diastolic blood pressure 77 mm[Hg] MD Priyanka Puentes Work Phone: [facility] 03-07-2023 08:00-0400 Heart rate 78 /min MD Priyanka Puentes Work Phone: [facility] 03-07-2023 08:00-0400 Respiratory rate 16 /min MD Priyanka Puentes Work Phone: [facility] 03-07-2023 08:00-0400 SaO2% (BldA) [Mass fraction] 98 % MD Priyanka Puentes Work Phone: [facility] 03-07-2023 08:00-0400 Systolic blood pressure 167 mm[Hg] MD Priyanka Puentes Work Phone: [facility] 03-07-2023 06:10-0400 Body weight 64.7 kg MD Priyanka Puentes Work Phone: [facility] 03-06-2023 13:53-0400 Body height 157.48 cm MD Priyanka Puentes Work Phone: [facility] 03-05-2023 21:31-0400 Diastolic blood pressure 65 mm[Hg] MD Priyanka Puentes Work Phone: [facility] 03-05-2023 21:31-0400 Heart rate 85 /min MD Priyanka Puentes Work Phone: [facility] 03-05-2023 21:31-0400 SaO2% (BldA) [Mass fraction] 96 % MD Priyanka Puentes Work Phone: [facility] 03-05-2023 21:31-0400 Systolic blood pressure 145 mm[Hg] MD Priyanka Puentes Work Phone: [facility] 03-05-2023 18:47-0400 Respiratory rate 18 /min MD Priyanka Puentes Work Phone: [facility] 03-05-2023 18:00-0400 Body height 157.48 cm MD Priyanka Puentes Work Phone: [facility] 03-05-2023 18:00-0400 Body temperature 97.1 [degF] MD Priyanka Puentes Work Phone: [facility] 03-05-2023 18:00-0400 Body weight 65.7 kg MD Priyanka Puentes Work Phone: [facility] 02-16-2023 13:38-0400 Body height 157.48 cm Priyanka Malcolmbud Work Phone: [facility] 250 DO Work Phone: 02-16-2023 13:38-0400 Body mass index (BMI) [Ratio] 26.52 kg/m2 Priyanka Malcolmbud Work Phone: [facility] 250 DO Work Phone: 02-16-2023 13:38-0400 Body surface area Derived from formula 1.67 m2 Priyanka Malcolmbud Work Phone: [facility] 250 DO Work Phone: 02-16-2023 13:38-0400 Body weight 65.77 kg Priyanka Malcolmbud Work Phone: [facility] 250 DO Work Phone: 02-16-2023 13:38-0400 Diastolic blood pressure 62 mm[Hg] Priyanka Malcolmbud Work Phone: [facility] 250 DO Work Phone: 02-16-2023 13:38-0400 Heart rate 76 /min Priyanka Puentes Work Phone: [facility] 250 DO Work Phone: 02-16-2023 13:38-0400 Systolic blood pressure 128 mm[Hg] Priyanka Puentes Work Phone: [facility] 250 DO Work Phone: 08-24-2022 14:35-0400 Body height 157.48 cm Edzeeshan Malcolmyer Work Phone: [facility] 250 DO Work Phone: 08-24-2022 14:35-0400 Body mass index (BMI) [Ratio] 27.98 kg/m2 Edzeeshan Schrader Hemeyer Work Phone: [facility] 250 DO Work Phone: 08-24-2022 14:35-0400 Body surface area Derived from formula 1.71 m2 Priyanka Malcolmyer Work Phone: [facility] 250 DO Work Phone: 08-24-2022 14:35-0400 Body weight 69.4 kg Priyanka Malcolmyer Work Phone: [facility] 250 DO Work Phone: 08-24-2022 14:35-0400 Diastolic blood pressure 54 mm[Hg] Edzeeshan Malcolmyer Work Phone: [facility] 250 DO Work Phone: 08-24-2022 14:35-0400 Heart rate 82 /min Priyanka Malcolmyer Work Phone: [facility] 250 DO Work Phone: 08-24-2022 14:35-0400 Systolic blood pressure 132 mm[Hg] Priyanka Malcolmyer Work Phone: [facility] 250 DO Work Phone: 03-17-2022 15:30-0400 Body height 157.48 cm Priyanka Malcolmyer Work Phone: [facility] 600 DO Work Phone: 03-17-2022 15:30-0400 Body mass index (BMI) [Ratio] 30.18 kg/m2 Priyanka Malcolmyer Work Phone: [facility] 600 DO Work Phone: 03-17-2022 15:30-0400 Body surface area Derived from formula 1.76 m2 Edzeeshan Malcolmyer Work Phone: [facility] 600 DO Work Phone: 03-17-2022 15:30-0400 Body weight 74.84 kg Edzeeshan Malcolmyer Work Phone: [facility] 600 DO Work Phone: 03-17-2022 15:30-0400 Diastolic blood pressure 58 mm[Hg] Priyanka Malcolmyer Work Phone: [facility] 600 DO Work Phone: 03-17-2022 15:30-0400 Heart rate 80 /min Edzeeshan Puentes Work Phone: [facility] 600 DO Work Phone: 03-17-2022 15:30-0400 Systolic blood pressure 130 mm[Hg] Priyanka Malcolmyer Work Phone: [facility] 600 DO Work Phone: 02-15-2022 14:39-0400 Body height 157.48 cm Edzeeshan Malcolmyer Work Phone: [facility] 250 DO Work Phone: 02-15-2022 14:39-0400 Body mass index (BMI) [Ratio] 30.18 kg/m2 Edzeeshan Malcolmyer Work Phone: [facility] 250 DO Work Phone: 02-15-2022 14:39-0400 Body surface area Derived from formula 1.76 m2 Edzeeshan Malcolmyer Work Phone: [facility] 250 DO Work Phone: 02-15-2022 14:39-0400 Body weight 74.84 kg Priyanka Malcolmbud Work Phone: [facility] 250 DO Work Phone: 02-15-2022 14:39-0400 Diastolic blood pressure 60 mm[Hg] Priyanka Malcolmbud Work Phone: [facility] 250 DO Work Phone: 02-15-2022 14:39-0400 Heart rate 78 /min Priyanka Puentes Work Phone: [facility] 250 DO Work Phone: 02-15-2022 14:39-0400 Systolic blood pressure 140 mm[Hg] Priyanka Puentes Work Phone: [facility] 250 DO Work Phone: 02-15-2022 14:39-0400 10 1 Priyanka Malcolmbud Work Phone: [facility] 250 DO Work Phone: Comment on above: PHQ-9 02-03-2022 17:15-0400 Diastolic blood pressure 84 mm[Hg] MD Priyanka Puentes Work Phone: [facility] 02-03-2022 17:15-0400 Heart rate 78 /min MD Priyanka Puentes Work Phone: [facility] 02-03-2022 17:15-0400 Respiratory rate 20 /min MD Priyanka Puentes Work Phone: [facility] 02-03-2022 17:15-0400 SaO2% (BldA) [Mass fraction] 94 % MD Priyanka Puentes Work Phone: [facility] 02-03-2022 17:15-0400 Systolic blood pressure 185 mm[Hg] MD Priyanka Puentes Work Phone: [facility] 02-03-2022 16:00-0400 Body temperature 97.8 [degF] MD Priyanka Puentes Work Phone: [facility] 02-03-2022 10:25-0400 Body height 157.48 cm MD Priyanka Puentes Work Phone: [facility] 02-03-2022 10:25-0400 Body weight 77.5 kg MD Priyanka Puentes Work Phone: [facility] 01-21-2022 12:00-0400 Body temperature 97.6 [degF] MD Priyanka Puentes Work Phone: [facility] 01-21-2022 12:00-0400 Diastolic blood pressure 81 mm[Hg] MD Priyanka Puentes Work Phone: [facility] 01-21-2022 12:00-0400 Heart rate 73 /min MD Priyanka Puentes Work Phone: [facility] 01-21-2022 12:00-0400 Respiratory rate 20 /min MD Priyanka Puentes Work Phone: [facility] 01-21-2022 12:00-0400 SaO2% (BldA) [Mass fraction] 94 % MD Priyanka Puentes Work Phone: [facility] 01-21-2022 12:00-0400 Systolic blood pressure 150 mm[Hg] MD Priyanka Puentes Work Phone: [facility] 01-21-2022 05:59-0400 Body weight 79.6 kg MD Priyanka Puentes Work Phone: [facility] 01-19-2022 09:50-0400 Body height 157.48 cm MD Priyanka Puentes Work Phone: [facility] 01-18-2022 00:00-0400 55 1 Priyanka Puentes Work Phone: [facility] 250 DO Work Phone: Comment on above: [id number] 01-01-2022 11:00-0400 Body height 157.48 cm Eva Panda Other [employer] Other 01-01-2022 11:00-0400 Body mass index (BMI) [Ratio] 31.64 kg/m2 Eva Panda Other [employer] Other 01-01-2022 11:00-0400 Body temperature 97.1 [degF] Eva Panda Other [employer] Other 01-01-2022 11:00-0400 Body weight 78.47 kg Eva Panda Other [employer] Other 01-01-2022 11:00-0400 Diastolic blood pressure 101 mm[Hg] Eva Panda Other [employer] Other 01-01-2022 11:00-0400 Respiratory rate 18 /min Eva Panda Other [employer] Other 01-01-2022 11:00-0400 SaO2% (BldA) [Mass fraction] 96 % Eva Panda Other [employer] Other 01-01-2022 11:00-0400 Systolic blood pressure 156 mm[Hg] Eva Patelmond Other [employer] Other Encounters Encounter Date Encounter Type Care Provider Facility Start: 05-08-2023 End: 05-08-2023 ambulatory PRIYANKA PUENTES Not Available Start: 03-12-2023 End: 03-14-2023 ambulatory Sima Louieader Facility:[facility] Start: 03-12-2023 End: 03-14-2023 Evaluation and management of inpatient MD Priyanka Puentes Work Phone: [facility] [place] [facility] Work Phone: Start: 03-12-2023 End: 03-14-2023 observation encounter MD Priyanka Puentes Work Phone: [facility] Work Phone: Start: 03-06-[address] Priyanka Puentes Facility:[id number] Start: 03-05-2023 End: 03-07-2023 ambulatory Priyanka Puentes Facility:[facility] Start: 03-05-2023 End: 03-07-2023 Evaluation and management of inpatient MD Priyanka Puentes Work Phone: [facility] [place] [facility] Work Phone: Start: 03-05-2023 End: 03-07-2023 observation encounter MD Priyanka Puentes Work Phone: [facility] Work Phone: Start: 03-02-2023 Telephone encounter Priyanka bhatt Work Phone: [facility] 600 DO Work Phone: Start: 02-16-2023 Office outpatient vi sit 15 minutes Priyanka Puentes Work Phone: [facility] 250 DO Work Phone: Start: 02-16-[address] Priyanka Puentes Facility:[id number] Start: 10-05-2022 End: 10-06-[address] PRIYANKA PUENTES . Facility:[facility] Start: 08-24-2022 Office outpatient vi sit 25 minutes Priyanka Puentes Work Phone: [facility] 250 DO Work Phone: Start: 08-24-[address] Priyanka Puentes Facility: Start: 08-15-2022 End: 08-16-[address] ANUM WOODY Facility:[facility] Start: 06-14-2022 End: 07-19-[address] PRIYANKA PUENTES . Facility:[facility] Start: 04-12-2022 End: 04-13-[address] PRIYANKA PUENTES . Facility:[facility] Start: 03-29-2022 End: 03-30-[address] PRIYANKA PUENTES . Facility:[facility] Start: 03-25-2022 Telephone encounter Priyanka bhatt Work Phone: [facility] 250 DO Work Phone: Start: 03-17-2022 Office outpatient vi sit 25 minutes Priyanka Puentes Work Phone: [facility] 600 DO Work Phone: Start: 03-17-2022 ambulatory Ms. Khanh Persaud Facility: Start: 02-24-2022 End: 06-14-[address] PRIYANKA PUENTES . Facility:[facility] Start: 02-15-2022 Office outpatient vi sit 25 minutes Priyanka Puentes Work Phone: [facility] 250 DO Work Phone: Start: 02-07-2022 Telephone encounter Priyanka bhatt Work Phone: [facility] 250 DO Work Phone: Start: 02-03-2022 End: 02-03-2022 Admission to same day surgery center MD Priyanka Puentes Work Phone: [facility] Start: 02-01-2022 End: 02-01-2022 Patient encounter procedure MD Priyanka Puentes Work Phone: [facility] Start: 01-27-2022 End: 01-28-[address] RAQUEL PERSAUD Facility:[facility] Start: 01-18-2022 End: 01-21-2022 Evaluation and management of inpatient MD Priyanka Puentes Work Phone: [facility] [place] [facility] Start: 01-18-2022 End: 01-18-2022 ambulatory BRITTNI LOTT . Facility: Start: 01-01-2022 End: 01-01-2022 ambulatory Eva Panda Other [facility] Other Start: 01-01-2022 Office outpatient ne w 20 minutes Eva Panda [facility] Procedures Date Procedure Procedure Detail Performing Clinician Start: 03-06-2023 Doppler ultrasonogra phy of bilateral carotid arteries MD Priyanka Puentes Work Phone: Start: 03-05-2023 CT angiography of head MD Priyanka Puentes Work Phone: Start: 03-05-2023 CT angiography of ne ck vessels MD Priyanka Puentes Work Phone: Start: 03-05-2023 CT of head without contrast MD Priyanka Puentes Work Phone: Start: 03-05-2023 Plain chest X-ray MD Larry Puentes Work Phone: Start: 02-03-2022 CL PTCA Ea Add LAD MD Maxim Puentes Work Phone: Start: 02-03-2022 CL Stent 1st Vessel LAD GAYATHRI MD Priyanka Puentes Work Phone: Start: 02-03-2022 MD Priyanka Puentes Work Phone: Angioplasty of blood vessel Priyanka Puentes Work Phone: Biopsy of skin Priyanka farrell Work Phone: Excision of cyst Priyanka gilbert Work Phone: Hysterectomy Priyanka Lima r Work Phone: Insertion of stent i n femoral vein Priyanka Puentes Work Phone: Reconstruction of bi le duct Edward J Hemeyer Work Phone: SARS Antigen (LFIA) MD Medhat morris Hemeyer Work Phone: Tonsillectomy Priyanka Wilkins er Work Phone: NEGATED: Highlighted row has not occurred! Total colonoscopy Priyanka Puentes Work Phone: Plan of Treatment Date Care Activity Detail Author Start: 08-31-2023 FUV, Provider: Yassine Dougherty, Status: Pen, Time: 1:00 PM FUV, Provider: Yassine Dougherty, Status: Pen, [facility]: [facility]:00 [facility] Work [facility]: Start: 03-14-2023 [facility] Start: 03-12-2023 Referral to Fish Conservationist [facility] Start: 03-12-2023 Hospital admission [facility] Start: 03-12-2023 Physical therapy procedure [facility] Start: 03-12-2023 Referral to occupational therapist [facility] Start: 03-12-2023 [facility] Start: 03-07-2023 [facility] Start: 03-06-2023 Comprehensive metabolic 2000 panel - Serum or Plasma [facility] Start: 03-06-2023 Doppler ultrasonography of bilateral carotid arteries US carotid doppler BI [facility] Start: 03-06-2023 Lipid panel [facility] Start: 03-06-2023 [facility] Start: 03-05-2023 Hospital admission [facility] Start: 03-05-2023 Physical therapy procedure [facility] Start: 03-05-2023 Referral to occupational therapist [facility] Start: 03-05-2023 [facility] Start: 03-05-2023 [facility] Start: 02-16-2023 FUV, Provider: Yassine Dougherty, Status: Pen, Time: 1:20 PM FUV, Provider: Yassine Dougherty, Status: Pen, Time: 1:20 PM [facility] 250 DO Work Phone: Start: 07-06-2022 FUV, Provider: Yassine Dougherty, Status: Pen, Time: 2:20 PM FUV, Provider: Yassine Dougherty, Status: Pen, Time: 2:20 PM [facility] 600 DO Work Phone: Start: 03-17-2022 FUV, Provider: Khanh Mercado, Status: Pen, Time: 3:30 PM FUV, Provider: Khanh Mercado, Status: Pen, Time: 3:30 PM [facility] 250 DO Work Phone: Start: 02-03-2022 [facility] Work Phone: Start: 02-03-2022 Hospital admission [facility] Work Phone: Start: 02-03-2022 CL PTCA Ea Add LAD CL PTCA Ea Add LAD [facility] Start: 02-03-2022 CL Stent 1st Vessel LAD GAYATHRI CL Stent 1st Vessel LAD GAYATHRI [facility] Start: 02-03-2022 [facility] Start: 02-03-2022 End: 02-03-2022 Admission to same day surgery center Departed Surgical Day Care [facility] Start: 02-01-2022 End: 02-01-2022 Patient encounter procedure Departed Clinical [facility] Start: 01-21-2022 [facility] Work Phone: Start: 01-18-2022 Referral to mill house supervisor [facility] Work Phone: Start: 01-18-2022 Hospital admission [facility] Work Phone: Start: 01-18-2022 Dilation of Coronary Artery, Two Arteries with Four or More Drug-eluting Intraluminal Devices, Percutaneous Approach Dilation of Coronary Artery, Two Arteries with Four or More Drug-eluting Intraluminal Devices, Percutaneous Approach [facility] Start: 01-18-2022 Fluoroscopy of Left Heart using Low Osmolar Contrast Fluoroscopy of Left Heart using Low Osmolar Contrast [facility] Start: 01-18-2022 Fluoroscopy of Multiple Coronary Arteries using Low Osmolar Contrast Fluoroscopy of Multiple Coronary Arteries using Low Osmolar Contrast [facility] Start: 01-18-2022 Measurement of Cardiac Sampling and Pressure, Left Heart, Percutaneous Approach Measurement of Cardiac Sampling and Pressure, Left Heart, Percutaneous Approach [facility] Patient Education [facility] Work Phone: Patient referral [facility] Work Phone: Immunizations Immunization Date Immunization Notes Care Provider Fa denise 05-17-2022 Fluzone High-Dose Quadrivalent 0.7 ML Intramuscular Suspension Prefilled Syringe Priyanka Puentes Work Phone: [facility] 250 DO Work Phone: 04-29-2022 Pfizer COVID-19 Vac Bivalent 30 MCG/0.3ML Intramuscular Suspension Priyanka Puentes Work Phone: [facility] 250 DO Work Phone: 04-19-2021 influenza, injectabl e, quadrivalent, preservative free Priyanka Puentes Work Phone: [facility] 250 DO Work Phone: 03-17-2021 Pfizer-BioNTech COVI D-19 Vacc 30 MCG/0.3ML Intramuscular Suspension Priyanka Puentes Work Phone: [facility] 250 DO Work Phone: 07-31-2020 COVID-19 Bob Ordonez (Pfizer) MD Priyanka Puentes Work Phone: [facility] 07-08-2020 Pfizer-BioNTech COVI D-19 Vacc 30 MCG/0.3ML Intramuscular Suspension Priyanka Puentes Work Phone: [facility] 250 DO Work Phone: 07-03-2020 COVID-19 Bob Ordonez (Pfizer) MD Priyanka Malcolmyer Work Phone: [facility] 03-26-2020 Seasonal trivalent influenza vaccine, adjuvanted, preservative free Larryzeeshan J Hemeyer [facility] Phone: [facility] Work Phone: 04-09-2019 Seasonal trivalent influenza vaccine, adjuvanted, preservative free Priyanka J Hemeyer Work Phone: [facility] 250 DO Work Phone: 04-03-2018 influenza, injectabl e, quadrivalent, preservative free Priyanka Schrader Hemeyer Work Phone: [facility] 250 DO Work Phone: 04-02-2018 pneumococcal conjuga te vaccine, 13 valent Priyanka Schrader Hemeyer Work Phone: [facility] 250 DO Work Phone: 03-20-2017 pneumococcal conjuga te vaccine, 13 valent Priyanka J Hemeyer Work Phone: [facility] 250 DO Work Phone: 03-13-2017 influenza, seasonal, injectable Priyanka Schrader Hemeyer Work Phone: [facility] 250 DO Work Phone: 04-14-2016 influenza, injectabl e, quadrivalent, contains preservative Edward J Hemeyer Work Phone: [facility] 250 DO Work Phone: 04-03-2015 influenza, seasonal, injectable Edward J Hemeyer Work Phone: [facility] 250 DO Work Phone: 05-20-2009 pneumococcal polysaccharide vaccine, 23 valent Priyanka Schrader Hemeyer Work Phone: [facility] 250 DO Work Phone: Payers Date Payer Category Payer Medicare [id number] 2. [id number] 1957 Medicare [id number] 2.1 [id number] 1940 Unknown [id number] 2.16.84 [id number] 1940 Unknown [id number] 2.16.84 0.1.207291.3.579.2.593 1942 Unknown [id number] 2.16.84 0.1.448697.3.579.2.593 1942 Unknown [id number] 2.16.84 0.1.599294.3.579.2.593 1942 Unknown [id number] 2.16.84 0.1.813529.3.579.2.593 1942 Unknown [id number] 2.16.84 0.1.632003.3.579.2.593 1942 Unknown [id number] 2.16.84 0.1.699484.3.579.2.593 1942 Unknown [id number] 2.16.84 0.1.045686.3.579.2.593 1942 Unknown [id number] 2.16. 840.1.583789.3.579.2.356 1942 Unknown [id number] 2.16. 840.1.920449.3.579.2.356 1942 Unknown [id number] 2.16. 840.1.090110.3.579.2.356 1942 Unknown [id number] 2.16. 840.1.408194.3.579.2.356 1942 Unknown [id number] 2.16.840 .1.915590.3.579.2.1259 Medicare Medicare Outpatient [id number] 1D [id number] Self-pay Self Pay [id number] Unknown [id number] Unknown [place] [facility] [place] [id number] Unknown Social History Date Type Detail Facility Sex Assigned At [facility] Other Start: 02-03-2022 End: 03-13-2023 Tobacco smoking status [facility] Ex-smoker (finding) [facility] Start: 1940 Sex Assigned At Female [facility] Former smoker Former smoker -[facility] 250 DO Work Phone: Comment on above: nicotine lozenges; Start: 03-12-2023 Tobacco smoking stat [facility] Smoker (finding) [facility] Medical Equipment Procedure Code Equipment Code Equipment Original Text Equipment Identifier Dates [id number] FDA Start: 01-20-2022 Drug-eluting cor onary artery stent, hje-lqqjhotszwmqa-huwhj er-coated ()[id number] FDA Start: 01-20-2022 Drug-eluting cor onary artery stent, ygu-jxzclecpvfhdr-vicas er-coated ()[id number] FDA Start: 01-20-2022 Drug-eluting cor onary artery stent, vvi-dayygbannawjo-gqfas er-coated ()[id number] FDA Start: 01-20-2022 Drug-eluting cor onary artery stent, bmv-capwwzacjqovb-vdnpc er-coated ()[id number] FDA Start: 02-03-2022 [id number] FDA Start: 01-20-2022 [id number] FDA Start: 01-20-2022 [id number] FDA Start: 01-20-2022 [id number] FDA Start: 01-20-2022 [id number] FDA Start: 01-20-2022 [id number] FDA Start: 01-20-2022 Goals Date Patient Goal Desired Activity /State Functional Status Date Assessment Result Facility 03-14-2023 Functional status Patient at [facility] Work Phone: 03-07-2023 Functional status Patient at [facility] Work Phone: 03-05-2023 Functional status Disability Sta tus Patient at Baseline [facility] Work Phone: 02-15-2022 PHQ-9 [id number] Moderate (10-14) [facility] 250 DO Work Phone: 02-03-2022 Functional status Patient at [facility] Work Phone: 01-21-2022 Functional status Patient at [facility] Work Phone: Mental Status Date Assessment Result Facility 03-14-2023 Cognitive function Cognitive Sta tus Patient at Baseline [facility] Work Phone: 03-07-2023 Cognitive function Cognitive Sta tus Patient at Baseline [facility] Work Phone: 02-03-2022 Cognitive function Cognitive Sta tus Patient at Baseline [facility] Work Phone: 01-21-2022 Cognitive function Cognitive Sta tus Patient at Baseline [facility] Work Phone: Clinical Notes 08-24-2021 to 03-13-2023 Note Date & Type Note Facility 03-13-2023 Progress note Note Date/Time March 13, 2023 4:47pm [facility] [address] [place] [address] Hospitalist Progress Note Signed Patient: Steven Harding MR#: [id number] : 1940 Acct:[id number] Age/Sex: 83 / F Adm Date: 10/01/2 3 Loc: 4P Room: 3H1823-7 Type: ADM INOo Attending Dr: Rufus Ricks DO Copies to: ~ Date of Service: 03/13/2023 Subjective Subjective Narrative: Pt seen and examined. Still states she has shaking and dizziness when her BP goes up. Admits to not drinking much water. Na 127 today from 128. Will start NS Exam Physical Exam Vital Signs: Temp Pulse Resp BP Pulse Ox O2 Del Method 98.2 F 58 L 16 116/63 97 Room Air 03/13/23 16:00 03/13/23 16:00 03/13/23 16:00 03/13/23 16:00 03/13/23 16:00 03/13/23 16:00 Narrative: General: Awake and alert. Lying in bed comfortably, anxious HEENT: Normocephalic, atraumatic, trachea midline Respiratory: good inspiratory effort, clear to auscultation, no wheeze, no rhonchi, no crackles Cardiovascular: RRR, normal S1 and S2 Abdominal: soft, non-distended, no tenderness, no rebound, no guarding, +BS Skin: warm, dry MSK: no edema Neurologic: No focal deficits Psych: anxious affect Objective Lab Results 03/12/23 14:45 03/13/23 12:06 Meds Allergies and Active Meds Allergies codeine Allergy (Verified 03/12/23 14:12) Shakiness ANTIHISTAMINES Allergy (Uncoded 03/12/23 13:44) Weakness Active Meds: Active Medications Generic Name Dose Route Start Last Admin Trade Name Freq PRN Reason Stop Dose Admin Acetaminophen 650 mg 03/12/23 19:40 Acetaminophen 325 Mg Tablet PO 03/11/24 19:39 Q6HR PRN Pain Scale 1 - 3 or fever Amlodipine Besylate 5 mg 03/13/23 09:00 03/13/23 08:54 Amlodipine 5 Mg Tablet PO 03/12/24 08:59 5 mg DAILY YVROSE Administration Aspirin 81 mg 03/13/23 09:00 03/13/23 08:54 Aspirin 81 Mg Tab.Chew PO 03/12/24 08:59 81 mg DAILY YVROSE Administration Atorvastatin Calcium 80 mg 03/12/23 21:00 03/12/23 22:11 Atorvastatin 80 Mg Tablet PO 03/11/24 20:59 80 mg QPM YVROSE Administration Clopidogrel Bisulfate 75 mg 03/13/23 09:00 03/13/23 08:54 Clopidogrel Bisulfate 75 Mg Tablet PO 03/12/24 08:59 75 mg DAILY YVROSE Administration Enoxaparin Sodium 40 mg 03/13/23 10:00 03/13/23 09:16 Enoxaparin 40 Mg/0.4 Ml Syringe SUBCUT 03/12/24 09:59 Not Given DAILY@10 YVROSE Hydralazine HCl 10 mg 03/12/23 19:40 03/12/23 23:22 Hydralazine 20 Mg/Ml Vial IV-PUSH 03/11/24 19:39 10 mg Q4H PRN Administration Hypertension Sodium Chloride 1,000 mls @ 100 mls/hr 03/13/23 14:00 03/13/23 14:25 0.9% Sodium Chloride 1,000 Ml IV 03/12/24 13:59 100 mls/hr .Q10H YVROSE Administration Magnesium Oxide 400 mg 03/13/23 09:00 03/13/23 08:53 Magnesium Oxide 400 Mg Tablet PO 03/12/24 08:59 400 mg DAILY YVROSE Administration Metformin HCl 1,000 mg 03/13/23 07:30 03/13/23 16:30 Metformin 500 Mg Tablet PO 03/12/24 07:29 1,000 mg BID.AC.BKFAST.SUPPER YVROSE Administration Metoprolol Tartrate 12.5 mg 03/12/23 21:00 03/13/23 08:53 Metoprolol Tartrate 12.5 Mg Tablet PO 03/11/24 20:59 12.5 mg BID YVROSE Administration Ondansetron HCl 4 mg 03/12/23 19:40 Ondansetron 4 Mg/2 Ml Vial IV-PUSH 03/11/24 19:39 Q8H PRN Nausea And Vomiting Oxybutynin Chloride 5 mg 03/12/23 21:00 03/13/23 08:54 Oxybutynin Chloride 5 Mg Tablet PO 03/11/24 20:59 5 mg BID YVROSE Administration Potassium Chloride 20 meq 03/12/23 19:40 Potassium Chloride Er 20 Meq Tab.Er.Prt PO 03/11/24 19:39 DAILY PRN Hypokalemia Sodium Chloride 0 ml 03/12/23 13:44 03/12/23 15:30 Sodium Chloride 0.9 % 10 Ml Syringe IV-PUSH 03/11/24 13:43 10 ml PRN PRN Administration Flush A&P - Hospitalist Assessment/Plan (1) Hypertensive urgency: (2) Acute hyponatremia: (3) CAD (coronary artery disease): (4) Hypothyroidism: Plan This is an 83-year-old female who had multiple presentations for dizziness, she was recently in the hospital and noted to have orthostatic hypotension and vestibular dysfunction. She was on multiple blood pressure medications which have been stopped. Since her discharge has been having symptoms of dizziness, shakiness with standing and blood pressure going very high. She denies any neurological deficit or chest pain. Work-up from the emergency room revealed normal CBC. Hyponatremia of 128. TSH was suppressed on [place] Thyroid and has been checked twice with a level of 0.01. The patient has been on thyroid treatment for many years and may have also contributed to her symptoms of shakiness if she is overcompensated on her thyroid medicine. Patient will be admitted for observation We will start low-dose metoprolol 12.5 mg twice daily due to history of CAD and hypertension Start amlodipine 5 mg daily Monitor blood pressure and orthostatic blood pressure while in the hospital Stop thyroid replacement for now Continue aspirin, Plavix, Lipitor for history of CAD and stent As needed IV hydralazine for elevated blood pressure Continue metformin for history of insulin resistance Subcu Lovenox for DVT prophylaxis Disposition: Na lower today. Staring NS. Her labile BP and systemic symptoms likely a side effect of her increased thyroid function. Continuing to hold thyroid supplementation. Will repeat again tomorrow. She will need to follow up withher PCP who has been managing her thyroid after discharge. Will consider discharge when BP and Na stablized, possible tomorrow Time Spent With Patient (min): 45 Documented By: Rufus Ricks DO 03/13/23 164 4 Signed By: <Electronically signed by Rufus Ricks DO> 03/13/23 2493 [facility] Work Phone: 1(416) 256-843410-01-2023 History and physical note Author Sima Hdz [facility] March 12, 2023 7:49pm Note Date/Time March 12, 2023 7: 50pm [facility] [address] [place] [address] Hospitalist H&P Signed Patient: Steven Harding MR#: [id number] : 1940 Acct:[id number] Age/Sex: 83 / F Adm Date: 3 Loc: Room: [address] [place] [address] Type: ADM IN Attending Dr: Sima Hdz MD Copies to: MD Sima Santos MD~ HPI DATE OF EXAMINATION: 03/12/23 CHIEF COMPLAINT: Uncontrolled blood pressure, shaking and dizziness HISTORY OF PRESENT ILLNESS: This 83-year-old female with history of CAD status post stents, hypertension, hypothyroidism, who presented to the emergency room complaining about symptoms of severe elevated blood pressure, shakiness and dizziness every time she tries to get up and walk. The patient was recently in the hospital for intermittent episodes of dizziness and lightheadedness. At that time she was noted to be orthostatic hypotensive, she was on losartan, spironolactone and nifedipine, blood pressure was noted to be doing well and all hypertensive medications have been stopped. The patient was discharged on March 07. Since her discharge has not been feeling well. Every time she gets up and walks her blood pressure goes up and she started feeling shaky dizzy and reports a headache. She denied any chest pain, shortness of breath, focal weakness or loss of consciousness. On today's presentation to the emergency room she was noted to have a blood pressure of 199/91 with a pulse rate of 110. EKG showed normal sinus rhythm with left axis deviation Review of Systems Review of Systems All other systems reviewed & are negative unless noted below or in HPI [facility] Medical History Aneurysm Aortic. Being monitored. Per pt found at [facility] during last visit there in January of 2022. Benign neoplasm of neck REMOVED Cataracts, bilateral Gallstone Hypertension Hypothyroidism Myocardial infarct Prediabetes Skin cancer Surgical History H/O heart artery stent H/O removal of cyst H/O: hysterectomy History of angioplasty R Femoral Family History Other CAD (coronary artery disease) Social History Smoking Status: Current every day smoker Tobacco Type: smokeless tobacco Substance Use Type: None Meds Medications and Allergies Allergies codeine Allergy (Verified 03/12/23 14:12) Shakiness ANTIHISTAMINES Allergy (Uncoded 03/12/23 13:44) Weakness Home Medications metformin 1,000 mg tablet 1,000 mg PO BID.AC.BKFAST.SUPPER 01/18/22 [History Confirmed 03/05/23] oxybutynin chloride 5 mg tablet 5 mg PO BID 01/18/22 [History Confirmed 03/05/23] thyroid (pork) 60 mg tablet (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) 60 mg PO BID 01/18/22 [History Confirmed 03/05/23] aspirin 81 mg chewable tablet (Children's Aspirin) 81 mg PO DAILY #0 tabs 01/21/22 [Rx Confirmed 03/05/23] atorvastatin 80 mg tablet 80 mg PO QPM 30 days #30 tabs 01/21/22 [Rx Confirmed 03/05/23] metoprolol tartrate 25 mg tablet 25 mg PO BID 30 days #60 tabs 01/21/22 [Rx Confirmed 03/05/23] nitroglycerin 0.4 mg sublingual tablet 0.4 mg sublingual Q5M PRN Chest Pain 30 days #25 tabs 01/21/22 [Rx Confirmed 03/05/23] clopidogrel 75 mg tablet 75 mg PO DAILY 03/05/23 [History Confirmed 03/05/23] magnesium oxide 400 mg PO DAILY #30 tabs 03/07/23 [Rx] Exam Physical Exam Vital Signs: Temp Pulse Resp BP Pulse Ox O2 Del Method 98.6 F 110 H 18 199/91 H 96 Room Air 03/12/23 13:44 03/12/23 17:33 03/12/23 17:33 03/12/23 17:59 03/12/23 17:33 03/12/23 17:33 Narrative: General: Patient is alert and awake, laying comfortably in bed, no signs of distress HEENT: Head atraumatic normocephalic, moist mucous membrane, Normal nose and ears, no throat lesions, normal conjunctiva. neck: Supple, no masses, no lymphadenopathy CVS: Regular rate and rhythm, no added sounds or murmurs RES: Clear to auscultation bilaterally, symmetric expansion, no distress ABD: Soft, not distended, no tenderness, positive bowel sounds, no palpable masses EXT: Moves all, no restriction of movement, no calf tenderness, no edema NEURO: Alert, oriented by 3, normal speech, normal motor function Skin: Dry, intact, no rashes or lesions Results Lab Results Labs: Laboratory Last Values Corrected WBC 8.9 X10E3/uL (3.8-11.6) 03/12/23 14:45 Uncorrected WBC Count 8.9 x10E3/uL (3.8-11.6) 03/12/23 14:45 RBC 3.87 X10E6/uL (3.60-5.00) 03/12/23 14:45 Hgb 12.4 g/dL (11.8-15.4) 03/12/23 14:45 Hct 35.5 % (34.0-46.4) 03/12/23 14:45 MCV 91.8 fl (80-100) 03/12/23 14:45 MCH 31.9 pg (24.7-34.3) 03/12/23 14:45 MCHC 34.7 g/dL (32.0-35.0) 03/12/23 14:45 RDW 12.6 % (11.9-15.3) 03/12/23 14:45 Plt Count 237 x10E3/uL (150-450) 03/12/23 14:45 MPV 7.2 fl (6.3-10.7) 03/12/23 14:45 Neut % (Auto) 79.3 % (.) 03/12/23 14:45 Lymph % (Auto) 13.2 % (.) 03/12/23 14:45 [place] % (Auto) 5.1 % (.) 03/12/23 14:45 Eos % (Auto) 2.0 % (.) 03/12/23 14:45 Baso % (Auto) 0.4 % (.) 03/12/23 14:45 Nucleat RBC Rel Count 0.0 /100 WBC (0-0.5) 03/12/23 14:45 Neut # (Auto) 7.0 x10E3/uL (1.8-7.7) 03/12/23 14:45 Lymph # (Auto) 1.2 x10E3/uL (1.00-4.8) 03/12/23 14:45 [place] # (Auto) 0.5 x10E3/uL (0.0-0.8) 03/12/23 14:45 Eos # (Auto) 0.2 x10E3/uL (0.0-0.45) 03/12/23 14:45 Baso # (Auto) 0.0 x10E3/uL (0.0-0.2) 03/12/23 14:45 Monocyte Dist Width 17.50 % (0.00-20.00) 03/12/23 14:45 PT 11.3 Seconds (9.0-12.9) 03/12/23 14:45 INR 0.9 03/12/23 14:45 APTT 26.1 Seconds (25.1-36.5) 03/12/23 14:45 PHA Creatinine Clear 41.99 03/12/23 14:45 Sodium 128 mmol/L (136-145) L 03/12/23 14:45 Potassium 4.5 mmol/L (3.5-5.1) 03/12/23 14:45 Chloride 98 mmol/L (98-107) 03/12/23 14:45 Carbon Dioxide 21.2 mmol/L (21.0-31.0) 03/12/23 14:45 Anion Gap 13.3 mEq/L (6.0-15.0) 03/12/23 14:45 BUN 11 mg/dL (7-25) 03/12/23 14:45 Creatinine 0.92 mg/dL (0.60-1.20) 03/12/23 14:45 Est GFR (CKD-EPI) > 60.0 mL/Min 03/12/23 14:45 Glucose 87 mg/dL (70-100) 03/12/23 14:45 Calcium 9.2 mg/dL (8.6-10.3) 03/12/23 14:45 Total Bilirubin 0.4 mg/dl (0.3-1.0) 03/12/23 14:45 Direct Bilirubin 0.10 mg/dL (0.03-0.18) 03/12/23 14:45 Indirect Bilirubin 0.3 mg/dL 03/12/23 14:45 AST 15 U/L (13-39) 03/12/23 14:45 ALT 14 U/L (7-52) 03/12/23 14:45 Alkaline Phosphatase 40 U/L (34-104) 03/12/23 14:45 Total Creatine Kinase 20 U/L (30-223) L 03/12/23 14:45 Troponin I High Sens 5.6 pg/mL (0.0-15.0) 03/12/23 14:45 B-Natriuretic Peptide 83.0 pg/mL (5-100) 03/12/23 14:45 Total Protein 6.3 gm/dL (6.4-8.9) L 03/12/23 14:45 Albumin 4.1 gm/dL (3.5-5.7) 03/12/23 14:45 Globulin 2.2 gm/dL 03/12/23 14:45 Albumin/Globulin Ratio 1.9 03/12/23 14:45 TSH 3rd Generation 0.01 uIU/mL (0.45-5.33) L 03/12/23 14:45 Urine Color Yellow (Yellow) 03/12/23 15:55 Urine Appearance Slightly cloudy (Clear) A 03/12/23 15:55 Urine pH 7.5 (5.0-9.0) 03/12/23 15:55 Ur Specific [place] 1.010 (1.001-1.030) 03/12/23 15:55 Urine Protein Negative mg/dL (Negative) 03/12/23 15:55 Urine Glucose (UA) Normal mg/dL (Normal) 03/12/23 15:55 Urine Ketones Negative (Negative) 03/12/23 15:55 Urine Occult Blood Negative (Negative) 03/12/23 15:55 Urine Nitrite Negative (Negative) 03/12/23 15:55 Urine Bilirubin Negative (Negative) 03/12/23 15:55 Urine Urobilinogen Normal mg/dL (Normal) 03/12/23 15:55 Ur Leukocyte Esterase 3+ (Negative) H 03/12/23 15:55 Urine RBC None seen /HPF (0-4) 03/12/23 15:55 Urine WBC 5-9 /HPF (0-4) H 03/12/23 15:55 Ur Squamous Epith Cells 5-9 /HPF (0-2) H 03/12/23 15:55 Urine Bacteria 1+ (None Seen) H 03/12/23 15:55 Assessment & Plan Assessment/Plan (1) Hypertensive urgency: (2) Acute hyponatremia: (3) CAD (coronary artery disease): (4) Hypothyroidism: Plan This is an 83-year-old female who had multiple presentations for dizziness, she was recently in the hospital and noted to have orthostatic hypotension and vestibular dysfunction. She was on multiple blood pressure medications which have been stopped. Since her discharge has been having symptoms of dizziness, shakiness with standing and blood pressure going very high. She denies any neurological deficit or chest pain. Work-up from the emergency room revealed normal CBC. Hyponatremia of 128. TSH was suppressed on [place] Thyroid and has been checked twice with a level of 0.01. The patient has been on thyroid treatment for many years and may have also contributed to her symptoms of shakiness if she is overcompensated on her thyroid medicine. Patient will be admitted for observation We will start low-dose metoprolol 12.5 mg twice daily due to history of CAD and hypertension Start amlodipine 5 mg daily Monitor blood pressure and orthostatic blood pressure while in the hospital Stop thyroid replacement for now Continue aspirin, Plavix, Lipitor for history of CAD and stent As needed IV hydralazine for elevated blood pressure Continue metformin for history of insulin resistance Subcu Lovenox for DVT prophylaxis The patient will be admitted for observation for less than 2 nights for blood pressure monitoring CODE STATUS is full code Home medications reviewed IP vs OBS Justification Based on differential dx, clinical care plan, and risk of adverse events, if untreated, in my clinical judgement this patient requires an acute care setting as: OBSERVATION because of an expectation of an under 2 midnight stay. Estimated length of stay (# of days): 2 Documented By: Sima Hdz MD 03/12/231942 Signed By: <Electronically signed by Sima Hdz MD> 03/12/231948 [facility] Work Phone: 1(573) 530-276709-26-2023 Discharge summary Author Chuck Chacon [facility] March 07, 2023 9:30am Note Date/Time March 07, 2023 9:30am [facility] [address] [place] [address] Discharge Summary Signed Patient: Steven Harding MR#: [id number] : 1940 Acct:[id number] Age/Sex: 83 / F Adm Date: 3 Loc: Room: [address] [place] [address]: Chuck Chacon MD Copies to: MD Chuck Santos MD~ Providers Date of Discharge: 03/07/23 Discharging Provider: Chuck Chacon Primary Care Provider: Priyanka Puentes Consults: 03/05/23 21:01 Consult to Occupational Therapy Routine Consult to Physical Therapy Routine Discharge Diagnosis (1) Orthostatic hypotension: (2) Pre-syncope: (3) Dizziness: (4) Acute hyponatremia: (5) Hypothyroidism: Final Diagnosis Final Discharge Diagnosis: As above Summary Hospital Course Hospital course: Ms. Harding is an 83yo F history of CAD status post stent, HTN, hypothyroidism who presented to the emergency department with intermittent episodes of dizziness/lightheadedness. Patient has been having disequilibrium and presyncope type symptoms over the past 3 weeks. She had been to vestibular physical therapy and felt that her symptoms became worse after that. She had also been attempted on scopolamine patch, and her mill house supervisor had decreased herlosartan dose. She presented again and was admitted to the hospital for furtherinpatient evaluation given that her symptoms persisted. On admission, patient was found to be orthostatic with blood pressures dropping from the 170s systolicto 100 systolic. She was continued on her metoprolol twice daily, but losartan,spironolactone and nifedipine were held. Patient has had intentional weight loss of 60 pounds in the last year status post her cardiac stent placement. Shefelt significantly improved with the holding of her 3 antihypertensives. Given her improved symptomatology, she was recommended to remain off of these medications for now. Incidentally, patient did have internal carotid stenosis on the right of less than 50%. Do not believe this is of any serious clinical significance. She will follow-up with her primary care physician and mill house supervisor as an outpatient for further management. She may be reintroduced to some of her cardioprotective antihypertensives in the future if deemed reasonable by her mill house supervisor and primary care physician. 35 minutes spent coordinating the discharge of this patient Time Spent with Patient Time spent providing/coordinating discharge services (# min): 35 Diagnostic Studies Completed and Pending Studies Pending studies at discharge: 03/07/23 06:37 Basic Metabolic Panel [CHEM] IN AM Complete Blood Count Auto Diff IN AM Magnesium [CHEM] IN AM Labs on day of discharge: 03/06/23 06:18: Estimat Average Glucose 120, Hemoglobin A1c 5.8 H Exam Physical Exam Vital Signs: Temp Pulse Resp BP Pulse Ox O2 Del Method 97.8 F 64 18 131/68 95 Room Air 03/07/23 05:40 03/06/23 23:37 03/07/23 05:40 03/06/23 23:37 03/07/23 05:40 03/07/23 05:40 Narrative: Constitutional: Elderly WF, resting in bed comfortably HEENT: Moist mucous membranes, neck supple Cardiovascular: RRR, no M/R/G, normal S1 and S2, no JVD Respiratory: Lungs clear to auscultation bilaterally, no wheezes, rales or rhonchi GI: Soft, NTND, normoactive bowel sounds : Deferred Neuro: AAO x3, no focal deficits. CN III-XII grossly intact, Strength 5/5 throughout Extremities: No clubbing, cyanosis or edema Psych: Patient calm, cooperative and conversant Discharge Plan Discharge Plan Patient Disposition: Home Activity: No Activity Restriction Diet: Diabetic Instructions: Orthostatic Hypotension (DC) Prescriptions: Continued metformin 1,000 mg tablet 1,000 mg PO BID.AC.BKFAST.SUPPER oxybutynin chloride 5 mg tablet 5 mg PO BID Patient Comments: TAKE 1 TABLET BY MOUTH TWICE DAILY thyroid (pork) [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] 60 mg tablet 60 mg PO BID Patient Comments: TAKE 1 TABLET BY MOUTH TWICE DAILY ON AN EMPTY STOMACH atorvastatin 80 mg Tablet 80 mg PO QPM 30 Days Qty: 30 12RF nitroglycerin 0.4 mg Tablet, Sublingual 0.4 mg sublingual Q5M PRN (Reason: Chest Pain) 30 Days Qty: 25 3RF aspirin [Children's Aspirin] 81 mg Tablet,Chewable 81 mg PO DAILY Qty: 0 0RF metoprolol tartrate 25 mg Tablet 25 mg PO BID 30 Days Qty: 60 12RF clopidogrel 75 mg Tablet 75 mg PO DAILY Discontinued losartan 100 mg tablet 50 mg PO DAILY Rx Instructions: RECENT CHANGE TO 1/2 DOSE PER CARDIOLOGY nifedipine 60 mg Tablet Extended Release 24 Hr 60 mg PO DAILY 30 Days Qty: 30 12RF spironolactone 25 mg tablet 25 mg PO DAILY PRN (Reason: INSTRUCTED) Follow Up: Priyanka Puentes MD [Primary Care Provider] - 03/14/23 9:30 am (You have been scheduled for a follow up appointment for the following date and time, please call to reschedule if needed.) Documented By: Chuck Chacon MD 3 22 Signed By: <Electronically signed by Chuck Chacon MD> 03/07/23 0930 [facility] Work Phone: [phone]) [phone] Progress note Author Chuck Chacon [facility] March 06, 2023 1:51pm Note Date/Time March 06, 2023 1:38pm [facility] [address] [place] [address] Hospitalist Progress Note Signed Patient: Steven Harding MR#: [id number] : 1940 Acct:[id number] Age/Sex: 83 / F Adm Date: 3 Loc: Room: [address] [place] [address] Type: ADM INOo Attending Dr: Chuck Chacon MD Copies to: ~ Date of Service: 03/06/2023 Subjective Subjective Narrative: Patient seen and assessed at bedside today. She reports less symptoms of unsteadiness and vertigo today when compared to previous days. Patient's bedside RN notes that she has been able to ambulate to the bathroom with just standby assist. She does feel better and knows that her antihypertensives are being held right now. Exam Physical Exam Vital Signs: Temp Pulse Resp BP Pulse Ox O2 Del Method 97.7 F 79 18 164/78 H 96 Room Air 03/06/23 12:00 03/06/23 12:00 03/06/23 12:03/06/23 12:03/06/23 12:03/06/23 12:00 Narrative: Constitutional: Elderly WF, resting in bed comfortably HEENT: Moist mucous membranes, neck supple Cardiovascular: RRR, no M/R/G, normal S1 and S2, no JVD Respiratory: Lungs clear to auscultation bilaterally, no wheezes, rales or rhonchi GI: Soft, NTND, normoactive bowel sounds : Deferred Neuro: AAO x3, no focal deficits. CN III-XII grossly intact, Strength 5/5 throughout Extremities: No clubbing, cyanosis or edema Psych: Patient calm, cooperative and conversant Objective Lab Results 03/06/23 06:18 03/06/23 06:18 Meds Allergies and Active Meds Allergies ANTIHISTAMINES Allergy (Uncoded 03/05/23 18:43) Weakness Active Meds: Active Medications Generic Name Dose Route Start Last Admin Trade Name Freq PRN Reason Stop Dose Admin Acetaminophen 650 mg 03/05/23 21:01 Acetaminophen 325 Mg Tablet PO 03/04/24 21:00 Q6HR PRN Pain Scale 1 - 3 or fever Aspirin 81 mg 03/06/23 09:00 03/06/23 08:32 Aspirin 81 Mg Tab.Chew PO 03/05/24 08:59 81 mg DAILY YVROSE Administration Atorvastatin Calcium 80 mg 03/06/23 21:00 Atorvastatin 80 Mg Tablet PO 03/05/24 20:59 QPM YVROSE Clopidogrel Bisulfate 75 mg 03/06/23 09:00 03/06/23 08:32 Clopidogrel Bisulfate 75 Mg Tablet PO 03/05/24 08:59 75 mg DAILY YVROSE Administration Dextrose 0 gm 03/05/23 22:26 Dextrose 50% In Water 25 Gm/50 Ml Syringe IV-PUSH 03/04/24 22:25 PRN PRN Hypoglycemia Enoxaparin Sodium 40 mg 03/06/23 10:00 03/06/23 10:06 Enoxaparin 40 Mg/0.4 Ml Syringe SUBCUT 03/05/24 09:59 Not Given DAILY@10 YVROSE Famotidine 20 mg 03/06/23 09:00 03/06/23 08:32 Famotidine/Pf 20 Mg/2 Ml Vial IV-PUSH 03/05/24 08:59 20 mg Q12HR YVROSE Administration Glucose 0 gm 03/05/23 22:26 Dextrose 40% Gel 15 Gm Tube PO 03/04/24 22:25 PRN PRN Hypoglycemia Sodium Chloride 1,000 mls @ 60 mls/hr 03/05/23 22:30 03/05/23 23:02 0.9% Sodium Chloride 1,000 Ml IV 03/07/23 07:49 60 mls/hr .[id number] YVROSE Administration Insulin Aspart 0 units 03/06/23 08:00 03/06/23 11:52 Insulin Aspart 300 Units/3 Ml Insuln.Pen SUBCUT 03/05/24 07:59 Not Given TID.WM.HS YVROSE Protocol Metoprolol Tartrate 25 mg 03/06/23 09:00 03/06/23 08:32 Metoprolol Tartrate 25 Mg Tablet PO 03/05/24 08:59 25 mg BID YVROSE Administration Oxybutynin Chloride 5 mg 03/06/23 09:00 03/06/23 08:32 Oxybutynin Chloride 5 Mg Tablet PO 03/05/24 08:59 5 mg BID YVROSE Administration Prochlorperazine Edisylate 5 mg 03/05/23 21:01 Prochlorperazine Edisylate 10 Mg/2 Ml Vial IV-PUSH 03/04/24 21:00 Q4H PRN Nausea And Vomiting Sodium Chloride 0 ml 03/05/23 18:05 03/05/23 19:23 Sodium Chloride 0.9 % 10 Ml Syringe IV-PUSH 03/04/24 18:04 10 ml PRN PRN Administration Flush Sodium Chloride 10 ml 03/05/23 21:01 Sodium Chloride 0.9 % 10 Ml Vial.Pf INJECTION 03/04/24 21:00 PRN PRN To dilute Pepcid Thyroid 60 mg 03/06/23 06:30 03/06/23 06:09 Thyroid,Pork 60 Mg Tablet PO 03/05/24 06:29 60 mg BID@0630,1630 YVROSE Administration A&P - Hospitalist Assessment/Plan (1) Pre-syncope: (2) Dizziness: (3) Acute hyponatremia: Plan Orthostatic hypotension Dizziness/lightheadedness CAD with recent PCI Patient does feel improved with 3 of her antihypertensives held at this time. CThead with no acute pathology, CTA head and neck showed 50 to 60% narrowing at the origin of R ICA, less than 50% on L. Incidental 2.1 cm parotid gland lesion. We will continue to monitor for an additional night on telemetry and with her antihypertensives held. Blood pressure is elevated and will hold to restart low- level spironolactone hopefully in the upcoming 24 hours. Lipid profile wellcontrolled at this time. Echocardiogram appears to be improved from previous assessment during patient's LA -We will trend orthostatic vital signs -Monitor on telemetry for at least 24 hours -Continue metoprolol, continue to hold losartan, spironolactone and nifedipine for now -May consider restarting low doses in the a.m.-patient has lost close to 60 pounds since her LA-likely that BP medications are more potent -PT/OT eval Acute hyponatremia -Gentle IV hydration -Monitor CMP in am Subclinical hyperthyroidism TSH very low at 0.01. Free T4 and total T3 are within normal limits -No intervention for now, monitor for evidence of tachycardia or arrhythmia Diet: Carb consistent. Will start insulin therapy while metformin on hold due to recent contrast exposure DVT ppx: Lovenox Code status: Full Disposition: Observation status Documented By: Chuck Chacon MD 3 1336 Signed By: <Electronically signed by Chuck Chacon MD> 03/06/23 1351 [facility] Work Phone: 1(684) 847-586009-25-2023 History and physical note Author Jemal Jones [facility] March 05, 2023 11:19pm Note Date/Time March 05, 2023 10:21pm [facility] [address] [place] [address] Hospitalist H&P Signed Patient: Steven Harding MR#: [id number] : 1940 Acct:[id number] Age/Sex: 83 / F Adm Date: 3 Loc: Room: [address] [place] [address] Type: ADM INOo Attending Dr: Jemal Jones MD Copies to: MD Jemal Santos MD~ HPI DATE OF EXAMINATION: 03/05/23 CHIEF COMPLAINT: Dizziness HISTORY OF PRESENT ILLNESS: Patient is an 83-year-old female with medical history of CAD, recently diagnosedvertigo, hypertension, hypothyroidism presented to the ER with complaints of intermittent dizziness, lightheadedness. Patient has been having multiple episodes recently of dizziness with feeling that the room is spinning, also reports that she was about to pass out but she did not. Denies any chest pain, shortness of breath. She does report a couple weeks ago an episode of face tingling on the left side that lasted few seconds and improved on its own. Denies any current visual changes, headache. Noted that her mill house supervisor has recently decreased her losartan due to these episodes of lightheadedness but denies any improvement with this adjustment. Patient was referred to physical therapy for possible BPPV but does not report improvement with that either. Patient did not feel safe to be discharged at this time given her intermittent multiple episodes of dizziness with presyncope events. Decision was made to keep her for observation for further evaluation and management. Review of Systems Review of Systems Review of systems: 10 systems are reviewed and are negative except as mentioned elsewhere in the documentation [facility] Medical History Aneurysm Aortic. Being monitored. Per pt found at [facility] during last visit there in January of 2022. Benign neoplasm of neck REMOVED Cataracts, bilateral Gallstone Hypertension Hypothyroidism Myocardial infarct Prediabetes Skin cancer Surgical History H/O heart artery stent H/O removal of cyst H/O: hysterectomy History of angioplasty R Femoral Family History Other CAD (coronary artery disease) Social History Smoking Status: Former smoker Tobacco Type: cigarettes Substance Use Type: None Meds Medications and Allergies Allergies ANTIHISTAMINES Allergy (Uncoded 03/05/23 18:43) Weakness Home Medications losartan 100 mg tablet 50 mg PO DAILY 01/18/22 [History Confirmed 03/05/23] metformin 1,000 mg tablet 1,000 mg PO BID.AC.BKFAST.SUPPER 01/18/22 [History Confirmed 03/05/23] oxybutynin chloride 5 mg tablet 5 mg PO BID 01/18/22 [History Confirmed 03/05/23] thyroid (pork) 60 mg tablet ([employer]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) 60 mg PO BID 01/18/22 [History Confirmed 03/05/23] aspirin 81 mg chewable tablet (Children's Aspirin) 81 mg PO DAILY #0 tabs 01/21/22 [Rx Confirmed 03/05/23] atorvastatin 80 mg tablet 80 mg PO QPM 30 days #30 tabs 01/21/22 [Rx Confirmed 03/05/23] metoprolol tartrate 25 mg tablet 25 mg PO BID 30 days #60 tabs 01/21/22 [Rx Confirmed 03/05/23] nifedipine 60 mg tablet,extended release 24 hr 60 mg PO DAILY 30 days #30 tabs 01/21/22 [Rx Confirmed 03/05/23] nitroglycerin 0.4 mg sublingual tablet 0.4 mg sublingual Q5M PRN Chest Pain 30 days #25 tabs 01/21/22 [Rx Confirmed 03/05/23] clopidogrel 75 mg tablet 75 mg PO DAILY 03/05/23 [History Confirmed 03/05/23] spironolactone 25 mg tablet 25 mg PO DAILY PRN INSTRUCTED 03/05/23 [History Confirmed 03/05/23] Exam Physical Exam Vital Signs: Temp Pulse Resp BP Pulse Ox O2 Del Method 97.1 F L 77 18 143/64 H 96 Room Air 03/05/23 18:00 03/05/23 20:30 03/05/23 18:47 03/05/23 20:30 03/05/23 20:30 03/05/23 20:30 Narrative: Const General: cooperative HEENT Normal oropharyngeal mucosa without any ulcers or exudates Eyes: Conjunctiva normal Pulmonary Auscultation: clear to auscultation , no crackles, no wheezes Cardiovascular Rate: normal rate Rhythm: regular rhythm Heart Sounds: S1 normal, S2 normal and no murmurs GI Inspection: non-distended Palpation: soft, not firm and nontender. No rigidity or rebound. Deferred Neuro General: alert, awake and oriented x3. No obvious new focal deficit Musculoskeletal: normal range of motion Extrem General: no cyanosis, no pedal edema Psych Appearance: appropriate affect. Grossly normal Results Lab Results Labs: Laboratory Last Values Corrected WBC 11.4 X10E3/uL (3.8-11.6) 03/05/23 18:07 Uncorrected WBC Count 11.4 x10E3/uL (3.8-11.6) 03/05/23 18:07 RBC 4.34 X10E6/uL (3.60-5.00) 03/05/23 18:07 Hgb 13.6 g/dL (11.8-15.4) 03/05/23 18:07 Hct 39.9 % (34.0-46.4) 03/05/23 18:07 MCV 91.9 fl (80-100) 03/05/23 18:07 MCH 31.3 pg (24.7-34.3) 03/05/23 18:07 MCHC 34.0 g/dL (32.0-35.0) 03/05/23 18:07 RDW 12.8 % (11.9-15.3) 03/05/23 18:07 Plt Count 285 x10E3/uL (150-450) 03/05/23 18:07 MPV 7.5 fl (6.3-10.7) 03/05/23 18:07 Neut % (Auto) 76.6 % (.) 03/05/23 18:07 Lymph % (Auto) 14.7 % (.) 03/05/23 18:07 [place] % (Auto) 5.4 % (.) 03/05/23 18:07 Eos % (Auto) 2.8 % (.) 03/05/23 18:07 Baso % (Auto) 0.5 % (.) 03/05/23 18:07 Nucleat RBC Rel Count 0.1 /100 WBC (0-0.5) 03/05/23 18:07 Neut # (Auto) 8.7 x10E3/uL (1.8-7.7) H 03/05/23 18:07 Lymph # (Auto) 1.7 x10E3/uL (1.00-4.8) 03/05/23 18:07 [place] # (Auto) 0.6 x10E3/uL (0.0-0.8) 03/05/23 18:07 Eos # (Auto) 0.3 x10E3/uL (0.0-0.45) 03/05/23 18:07 Baso # (Auto) 0.1 x10E3/uL (0.0-0.2) 03/05/23 18:07 Monocyte Dist Width 18.39 % (0.00-20.00) 03/05/23 18:07 PT 10.9 Seconds (9.0-12.9) 03/05/23 18:07 INR 0.9 03/05/23 18:07 APTT 25.4 Seconds (25.1-36.5) 03/05/23 18:07 PHA Creatinine Clear 46.72 03/05/23 18:07 Sodium 125 mmol/L (136-145) L 03/05/23 18:07 Potassium 4.5 mmol/L (3.5-5.1) 03/05/23 18:07 Chloride 93 mmol/L (98-107) L 03/05/23 18:07 Carbon Dioxide 19.4 mmol/L (21.0-31.0) L 03/05/23 18:07 Anion Gap 17.1 mEq/L (6.0-15.0) H 03/05/23 18:07 BUN 17 mg/dL (7-25) 03/05/23 18:07 Creatinine 0.84 mg/dL (0.60-1.20) 03/05/23 18:07 Est GFR (CKD-EPI) > 60.0 mL/Min 03/05/23 18:07 Glucose 85 mg/dL (70-100) 03/05/23 18:07 Calcium 9.7 mg/dL (8.6-10.3) 03/05/23 18:07 Total Creatine Kinase 18 U/L (30-223) L 03/05/23 18:07 Troponin I High Sens 6.3 pg/mL (0.0-15.0) 03/05/23 18:07 B-Natriuretic Peptide 42.0 pg/mL (5-100) 03/05/23 18:07 TSH 3rd Generation 0.01 uIU/mL (0.45-5.33) L 03/05/23 18:07 Assessment & Plan Assessment/Plan (1) Pre-syncope: (2) Dizziness: (3) Acute hyponatremia: Plan Dizziness, presyncope events, seems orthostatic Could be medications induced orthostatic hypotension CAD with recent PCI -CT head with no acute pathology, CTA head and neck showed 50 to 60% narrowing at the origin of R ICA, less than 50% on L. Incidental 2.1 cm parotid gland lesion. -Check HbA1c, lipid profile -TSH on low end- check T3 and T4 -Check UA -Check orthostatic vitals- seems positive and significant at this time supine 170s then standing 100s. -Check echocardiogram -Check carotid Doppler -PT/OT eval and treat -Gentle IV hydration -Monitor on telemetry -Will hold BP meds and restart slowly as tolerated. Resumed metoprolol. hold Losartan and Nifedipine, restart when appropriate -PT/OT eval Acute hyponatremia -Gentle IV hydration -Monitor CMP in am Diet: Carb consistent. Will start insulin therapy while metformin on hold due to recent contrast exposure DVT ppx: Lovenox Code status: Full Disposition: Observation status Discussed with patient at bedside. All questions answered. IP vs OBS Justification Based on differential dx, clinical care plan, and risk of adverse events, if untreated, in my clinical judgement this patient requires an acute care setting as: OBSERVATION because of an expectation of an under 2 midnight stay. Estimated length of stay (# of days): 2 Documented By: Jemal Jones MD 03/05/23 21 05 Signed By: <Electronically signed by Jemal Jones MD> 03/05/23 2310 [facility] Work Phone: 1(666) 780-884108-25-2022 [facility] Progress note Author Wiley Beal [facility] January 20, 2022 1:31pm Note Date/Time January 20, 2022 1: 31pm [facility] [address] [place] [address] Hospitalist Progress Note Signed Patient: Steven Harding MR#: [id number] : 1940 Acct:[id number] Age/Sex: 81 / F Adm Date: 2 Loc: Room: [address] [place] [address] Type: ADM IN Attending Dr: Wiley Beal MD Copies to: ~ Date of Service: 01/20/2022 Subjective Subjective Narrative: Attending note: I saw the patient personally on the day of encounter. I reviewed the relevant history, and performed the caldera elements of the physical examination. I reviewedthe relevant laboratory workup, radiological studies and the current treatment plan. I formulated the plan of care and confirmed it with the resident/student/[employer]PAIR[employer]. Patient was seen and examined at bedside today. Patient denies any chest pain and says shortness of breath has improved. Patient denies any dizziness, lightheadedness, or changes in bowel habits. Patient says she plans to go for the start of her three-vessel PCI this morning. Exam Physical Exam Vital Signs: Temp Pulse Resp BP Pulse Ox O2 Del Method 97.7 F 75 16 162/76 H 92 L Room Air 01/20/22 07:57 01/20/22 07:57 01/20/22 07:57 01/20/22 07:57 01/20/22 07:57 01/20/22 07:59 Narrative: Gen: patient is alert and oriented, no acute distress Skin: skin is warm and dry H: normocephalic, atraumatic CV: RRR, no murmurs, rubs, gallops Resp: CTA bilaterally, no wheezes, rhonchi, rales Abd: abdomen soft and non-distended, normal bowel sounds, no guarding or tenderness on palpation MSK: no LE edema present Objective Lab Results CBC & Chem 7: 01/19/22 08:18 01/20/22 09:56 Meds Allergies and Active Meds Allergies No Known Allergies Allergy (Verified 11/11/19 20:09) Active Meds: Active Medications Generic Name Dose Route Start Last Admin Trade Name Senthilq PRN Reason Stop Dose Admin Acetaminophen 650 mg 01/18/22 22:38 Acetaminophen 325 Mg Tablet PO 01/18/23 22:37 Q6H PRN Pain 1-5 or fever Aspirin 81 mg 01/19/22 09:00 01/20/22 08:50 Aspirin 81 Mg Tab.Chew PO 01/19/23 08:59 81 mg DAILY YVROSE Administration Atorvastatin Calcium 80 mg 01/19/22 21:00 01/19/22 21:15 Atorvastatin 80 Mg Tablet PO 01/19/23 20:59 Not Given QPM YVROSE Dextrose 0 gm 01/18/22 22:43 Dextrose 50% In Water 25 Gm/50 Ml Syringe IV-PUSH 01/18/23 22:42 PRN PRN Hypoglycemia Famotidine 20 mg 01/19/22 09:00 01/20/22 08:50 Famotidine 20 Mg Tablet PO 01/19/23 08:59 20 mg DAILY YVROSE Administration Glucose 0 gm 01/18/22 22:43 Dextrose 40% Gel 15 Gm Tube PO 01/18/23 22:42 PRN PRN Hypoglycemia Heparin Sodium (Porcine) 2,500 unit 01/19/22 23:47 01/20/22 00:10 Heparin *Protocol Bolus* 5,000 Unit/Ml Vial IV-PUSH 01/19/23 23:46 2,500 unit PROTOCOL PRN Administration PTT 40-53 Heparin Sodium (Porcine) 4,000 unit 01/19/22 23:47 Heparin *Protocol Bolus* 5,000 Unit/Ml Vial IV-PUSH 01/19/23 23:46 PROTOCOL PRN PTT < 40 Dextrose/Sodium Chloride 1,000 mls @ 100 mls/hr 01/19/22 11:45 01/19/22 23:32 5 % Dextrose-0.45 % Nacl IV 01/19/23 11:44 Not Given .Q10H YVROSE Sodium Chloride 1,000 mls @ 100 mls/hr 01/19/22 17:15 01/20/22 05:45 0.9% Sodium Chloride 1,000 Ml IV 01/19/23 17:14 100 mls/hr .Q10H YVROSE Administration Heparin Sodium/Sodium Chloride 25,000 unit in 250 mls @ 7 mls/hr 01/19/22 23:45 01/20/22 00:11 Heparin IV 01/19/23 23:44 1,100 units/hr .Q24H YVROSE 11 mls/hr Administration Protocol 700 UNITS/HR Dextrose/Sodium Chloride 1,000 mls @ 100 mls/hr 01/20/22 09:15 5 % Dextrose-0.45 % Nacl IV 01/20/23 09:14 .Q10H YVROSE Insulin Aspart 0 units 01/19/22 08:00 01/20/22 07:50 Insulin Aspart 300 Units/3 Ml Insuln.Pen SUBCUT 01/19/23 07:59 Not Given TID.WM.HS YVROSE Protocol Losartan Potassium 100 mg 01/18/22 23:10 01/20/22 08:50 Losartan 50 Mg Tablet PO 01/18/23 23:09 100 mg DAILY YVROSE Administration Metoprolol Tartrate 25 mg 01/18/22 23:15 01/20/22 08:50 Metoprolol Tartrate 25 Mg Tablet PO 01/18/23 23:14 25 mg BID YVROSE Administration Miscellaneous Information 1 each 01/20/22 09:05 Consult To Pharmacy MISCELLANE 01/20/23 09:04 .PHACONSULT PRN ZZ.Pharmacy Consult Protocol Morphine Sulfate 1 mg 01/18/22 22:38 Morphine Sulfate 2 Mg/Ml Vial IV-PUSH Q4H PRN Pain Scale 7 - 10 Nifedipine 60 mg 01/19/22 11:30 01/20/22 08:50 Nifedipine Er.24hr 60 Mg Tab.Er.24 PO 01/19/23 11:29 60 mg DAILY YVROSE Administration Ondansetron HCl 4 mg 01/18/22 22:38 Ondansetron 4 Mg/2 Ml Vial IV-PUSH 01/18/23 22:37 Q6H PRN Nausea And Vomiting Oxybutynin Chloride 5 mg 01/19/22 12:00 01/20/22 08:49 Oxybutynin Chloride 5 Mg Tablet PO 01/19/23 11:59 5 mg BID YVROSE Administration Oxycodone/Acetaminophen 1 tab 01/18/22 22:38 Oxycodone/Acetaminophen 5-325 Mg Tablet PO Q6H PRN Pain Scale 6 - 10 Potassium Chloride 40 meq 01/20/22 09:05 Potassium Chloride Er 20 Meq Tab.Er.Prt PO ONCE PRN Potassium </= 3.9 Sodium Chloride 0 ml 01/19/22 11:36 Sodium Chloride 0.9 % 10 Ml Syringe IV-PUSH 01/19/23 11:35 PRN PRN Flush Sodium Chloride 0 ml 01/20/22 09:05 Sodium Chloride 0.9 % 10 Ml Syringe IV-PUSH 01/20/23 09:04 PRN PRN Flush Sucralfate 1 gm 01/19/22 09:00 01/20/22 08:50 Sucralfate 1 Gm Tablet PO 01/19/23 08:59 1 gm QID YVROSE Administration Thyroid 60 mg 01/19/22 06:30 01/20/22 05:45 Thyroid,Pork 60 Mg Tablet PO 01/19/23 06:29 60 mg DAILY@0630 YVROSE Administration A&P - Hospitalist Assessment/Plan (1) NSTEMI (non-ST elevated myocardial infarction): (2) Hypertension: (3) Hypothyroidism: (4) Prediabetes: Plan Elevated HS-Troponin/ Type II NSTEMI? -Cardiac catheter was completed. -RCA: there was diffuse concentric and eccentric plaquing of the blood vesselup to 80 to 90% of the luminal diameter. -LCX A. contains 90% stenosis with evidence of plaque disruption. -LAD: There is a Bach (1, 1, 1) bifurcation stenosis of approximately 70% luminal diameter at the bifurcation of the mid LAD and a large D2 branch. -Ischemic CM w basal inferior wall motion abnormality & mild LV systolic dysfunction. EF is 40-45%. -Pt had 2 drug-eluting stents placed in LCX and 2 drug eluting stents placed in RCA. -Continue aspirin, high intensity statin, beta sarbjit, & ARB. -Ticagrelor 180 mg had been added. Pt will continue on aspirin and ticagrelor (dual antiplatelet therapy) for one year. -Cardiology plans for staged PCI to LAD D2 bifurcation lesion in the morning if pt's renal function is stable. -Hydrate with IV normal saline for 15 hours. -Repeat Labs in AM. HTN -Last BP: 162/76 Prediabetes -sliding scale insulin and accuchecks.? -hold oral metformin.? -hypoglycemia protocol. ? Code Status: FULL Chronic Stable medical comorbidities: PAD Hypothyroidism Documented By: Wiley Beal MD 01/20/22929 Signed By: <Electronically signed by Wiley Beal MD> 01/20/22 [facility] Work Phone: 1(280) 342-960908-11-2022 Procedure [facility]08-10-2022 Procedure [facility]08-10-2022 Progress note Author Wiley Beal [facility] January 19, 2022 1:35pm Note Date/Time January 19, 2022 1: 35pm [facility] [address] [place] [address] Hospitalist Progress Note Signed Patient: Steven Harding MR#: [id number] : 1940 Acct:[id number] Age/Sex: 81 / F Adm Date: 2 Loc: Room: [address] [place] [address] Type: ADM IN Attending Dr: Wiley Beal MD Copies to: ~ Date of Service: 01/19/2022 Subjective Subjective Narrative: Patient is resting comfortably in bed. She has minimal chest pain. Lungs clear to auscultation and heart is regular Abdomen soft benign Neurological nonfocal Assessment and plan #1 non-STEMI. Plan for coronary angiogram today. Seen by cardiology. Continue aspirin therapy. Heparin High intensity statin Continue ARB Echo indicates moderate inferior wall hypokinesis. Mild pulm hypertension. Other chronic stable medical comorbidities: PAD Hypertension Hypothyroidism Prediabetes note Exam Physical Exam Vital Signs: Temp Pulse Resp BP Pulse Ox O2 Del Method 97.7 F 69 16 192/95 H 94 L Room Air 01/19/22 12:00 01/19/22 12:00 01/19/22 12:00 01/19/22 12:00 01/19/22 12:00 01/19/22 12:00 Objective Lab Results CBC & Chem 7: 01/19/22 08:18 01/19/22 00:11 Meds Allergies and Active Meds Allergies No Known Allergies Allergy (Verified 11/11/19 20:09) Active Meds: Active Medications Generic Name Dose Route Start Last Admin Trade Name Freq PRN Reason Stop Dose Admin Acetaminophen 650 mg 01/18/22 22:38 Acetaminophen 325 Mg Tablet PO 01/18/23 22:37 Q6H PRN Pain 1-5 or fever Aspirin 81 mg 01/19/22 09:00 01/19/22 09:20 Aspirin 81 Mg Tab.Chew PO 01/19/23 08:59 81 mg DAILY YVROSE Administration Atorvastatin Calcium 80 mg 01/19/22 21:00 Atorvastatin 80 Mg Tablet PO 01/19/23 20:59 QPM YVROSE Dextrose 0 gm 01/18/22 22:43 Dextrose 50% In Water 25 Gm/50 Ml Syringe IV-PUSH 01/18/23 22:42 PRN PRN Hypoglycemia Famotidine 20 mg 01/19/22 09:00 01/19/22 09:19 Famotidine 20 Mg Tablet PO 01/19/23 08:59 20 mg DAILY YVROSE Administration Glucose 0 gm 01/18/22 22:43 Dextrose 40% Gel 15 Gm Tube PO 01/18/23 22:42 PRN PRN Hypoglycemia Heparin Sodium (Porcine) 5,000 unit 01/19/22 09:00 01/19/22 09:23 Heparin 5,000 Unit/Ml Vial SUBCUT 01/19/23 08:59 Not Given Q12HR YVROSE Dextrose/Sodium Chloride 1,000 mls @ 100 mls/hr 01/19/22 11:45 01/19/22 12:33 5 % Dextrose-0.45 % Nacl IV 01/19/23 11:44 100 mls/hr .Q10H YVROSE Administration Insulin Aspart 0 units 01/19/22 08:00 01/19/22 12:35 Insulin Aspart 300 Units/3 Ml Insuln.Pen SUBCUT 01/19/23 07:59 Not Given TID.WM.HS YVROSE Protocol Losartan Potassium 100 mg 01/18/22 23:10 01/19/22 09:19 Losartan 50 Mg Tablet PO 01/18/23 23:09 100 mg DAILY YVROSE Administration Metoprolol Tartrate 25 mg 01/18/22 23:15 01/19/22 09:19 Metoprolol Tartrate 25 Mg Tablet PO 01/18/23 23:14 25 mg BID YVROSE Administration Miscellaneous Information 1 each 01/19/22 11:36 Consult To Pharmacy MISCELLANE 01/19/23 11:35 .PHACONSULT PRN ZZ.Pharmacy Consult Protocol Morphine Sulfate 1 mg 01/18/22 22:38 Morphine Sulfate 2 Mg/Ml Vial IV-PUSH Q4H PRN Pain Scale 7 - 10 Nifedipine 60 mg 01/19/22 11:30 01/19/22 12:34 Nifedipine Er.24hr 60 Mg Tab.Er.24 PO 01/19/23 11:29 60 mg DAILY YVROSE Administration Ondansetron HCl 4 mg 01/18/22 22:38 Ondansetron 4 Mg/2 Ml Vial IV-PUSH 01/18/23 22:37 Q6H PRN Nausea And Vomiting Oxybutynin Chloride 5 mg 01/19/22 12:00 01/19/22 12:34 Oxybutynin Chloride 5 Mg Tablet PO 01/19/23 11:59 5 mg BID YVROSE Administration Oxycodone/Acetaminophen 1 tab 01/18/22 22:38 Oxycodone/Acetaminophen 5-325 Mg Tablet PO Q6H PRN Pain Scale 6 - 10 Potassium Chloride 40 meq 01/19/22 11:36 01/19/22 13:24 Potassium Chloride Er 20 Meq Tab.Er.Prt PO 40 meq STAT PRN Administration Hypokalemia Sodium Chloride 0 ml 01/19/22 11:36 Sodium Chloride 0.9 % 10 Ml Syringe IV-PUSH 01/19/23 11:35 PRN PRN Flush Sucralfate 1 gm 01/19/22 09:00 01/19/22 13:19 Sucralfate 1 Gm Tablet PO 01/19/23 08:59 Not Given QID YVROSE Thyroid 60 mg 01/19/22 06:30 01/19/22 06:09 Thyroid,Pork 60 Mg Tablet PO 01/19/23 06:29 60 mg DAILY@0630 YVROSE Administration A&P - Hospitalist Assessment/Plan (1) NSTEMI (non-ST elevated myocardial infarction): (2) Hypertension: (3) Hypothyroidism: (4) Prediabetes: Plan Elevated HS-Troponin/Possible NSTEMI The patient presents with chest pain. [facility]. he pain is much better CXR [facility] ED reported as no acute cardiopulmonary abnormality EKG [facility] ED (i personally reviewed it) shows NSR@90 bpm no significant acute changes nitro patch(started in [place] ED) Morphine prn Telemetry Antiplatelet: Aspirin Anticoagulation: Heparin Drip (started in [place] ED) Start Beta sarbjit therapy Serial EKGs Troponin x2 Check Mg Lipid panel in am Echocardiogram Cardiology consult HTN urgency BP up to 197/93 She didn?t take her losartan today She will be start on losartan plus Beta sarbjit tonight Prediabetes sliding scale insulin and accuchecks. hold oral metformin. hypoglycemia protocol. Code Status: FULL, discussed with patient Chronic diseases: Unless mentioned Above, Essential home medications have been continued. DVT Px : Addressed Plan of care Discussed with: the medical team, the patient and family at bedside Documented By: Wiley Beal MD 01/19/22 489 Signed By: <Electronically signed by Wiley Beal MD> 01/19/22 [address] [facility] Work Phone: [phone] 704-705208-10-2022 Consult note Author Yassine Dougherty [facility] January 19, 2022 12:38pm Note Date/Time January 19, 2022 12 :25pm [facility] [address] [place] [address] Cardiology Consult Note Signed with Addenda Patient: Steven Harding MR#: [id number] : 1940 Acct:[id number] Age/Sex: 81 / F Adm Date: 2 Loc: 4 Room: 0V1625-2 Type: ADM IN Attending Dr: Wiley Beal MD Copies to: MD Priyanka Latif MD Mourhaf A Traboulssi, MD~ ADDENDUM1 I failed to notice the patient is on losartan we will leave for now for the timebeing on losartan Addendum Documented By: MD Yassine Dougherty 01/19/22 1238 Addendum Signed By: <Electronically signed by MD Yassine Dougherty> 01/19/22 1238 Cardiology HPI History of Present Illness Consult Date: 01/19/22 Reason for Consult: Cardiac consultation requested for evaluation for chest pain and abnormal cardiac enzyme HPI: Ms. Harding is a 81 year old female with multiple risk factor for ischemic heartdisease including prior history of tobacco use, diabetes mellitus and extensive vascular disease presented with several weeks history of recurrent episodes of chest pain and shortness of breath. She was evaluated in the emergency room with finding consistent with acute coronary syndrome. She was noted to have nonspecific inferior ST-T changes and evidence of inferior wall hypokinesis on her echocardiogram. Patient denies any previous history of coronary artery disease or congestive heart failure. She does have history of extensive peripheral vascular disease with prior stenting of the right lower extremity andabdominal aorta. At the time of evaluation patient reported she is chest pain-free. Troponin was up close to 2 3000. Review of Systems Review of Systems All other systems reviewed & are negative unless noted below or in HPI Constitutional Constitutional: Reports system reviewed and no additional complaints, except as documented Eyes Eyes: Reports system reviewed and no additional complaints, except as documented ENT Ears, Nose, Mouth, and Throat: Reports system reviewed and no additional complaints, except as documented Cardiovascular Cardiovascular: Reports system reviewed and no additional complaints, except as documented, Reports chest pain and Reports dyspnea on exertion Respiratory Respiratory: Reports dyspnea on exertion Gastrointestinal Gastrointestinal: Reports system reviewed and no additional complaints, except as documented Genitourinary Genitourinary: Reports system reviewed and no additional complaints, except as documented Musculoskeletal Comments: Patient reports symptoms of intermittent claudication Neurologic Neurologic: Reports system reviewed and no additional complaints, except as documented Psychiatric Psychiatric: Reports system reviewed and no additional complaints, except as documented Endocrine Endocrine: Reports system reviewed and no additional complaints, except as documented Hematologic/Lymphatic Hematologic/Lymphatic: Reports system reviewed and no additional complaints, except as documented Allergic/Immunologic Allergic/Immunologic: Reports system reviewed and no additional complaints, except as documented PMFSH Vaccinated for COVID-19?: Yes Medical History Benign neoplasm of neck REMOVED Cataracts, bilateral Gallstone Hypertension Hypothyroidism Prediabetes Surgical History H/O removal of cyst H/O: hysterectomy History of angioplasty R Femoral Family History Other CAD (coronary artery disease) Social History Smoking Status: Former smoker Substance Use Type: None Meds Medications and Allergies Allergies No Known Allergies Allergy (Verified 11/11/19 20:09) Home Medications famotidine 20 mg tablet 20 mg PO DAILY 01/18/22 [History Confirmed 01/18/22] losartan 100 mg tablet 100 mg PO DAILY 01/18/22 [History Confirmed 01/18/22] metformin 1,000 mg tablet 1,000 mg PO BID.AC.BKFAST.SUPPER 01/18/22 [History Confirmed 01/18/22] oxybutynin chloride 5 mg tablet 5 mg PO BID 01/18/22 [History Confirmed 01/18/22] sucralfate 1 gram tablet 1 g PO QID 01/18/22 [History Confirmed 01/18/22] thyroid (pork) 60 mg tablet (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) 60 mg PO DAILY 01/18/22 [History Confirmed 01/18/22] Exam Physical Exam Vital Signs: Temp Pulse Resp BP Pulse Ox O2 Del Method 97.7 F 69 16 192/95 H 94 L Room Air 01/19/22 12:00 01/19/22 12:00 01/19/22 12:00 01/19/22 12:00 01/19/22 12:00 01/19/22 12:00 Const General: cooperative, comfortable, no acute distress and well developed HEENT Head: atraumatic Mouth: oral mucosae normal Eyes General: appearance normal, both eyes and all related structures Pupils: PERRL Neck Neck: normal visual inspection, supple and no lymphadenopathy noted Neck mass: No Thyroid: thyroid normal Carotids: normal carotid upstroke Chest Chest palpation & inspection: normal inspection of the chest Resp Effort & Inspection: normal respiratory effort Auscultation: clear to auscultation bilaterally Cardio Palpation: normal PMI Rate: regular rate Rhythm: regular rhythm Heart Sounds: S1 normal and S2 normal GI Palpation: soft and no hepatosplenomegaly Percussion: normal to percussion Auscultation: normal bowel sounds Skin General: no rashes or lesions noted and dry skin Neuro General: patient alert, patient awake, patient oriented x3, tone normal and moves all extremities Extrem General: full ROM, capillary refill normal and no clubbing, cyanosis or edema Other: Diminished peripheral pulse bilaterally Psych Mental Status: mental status grossly normal Results Labs CBC & CMP: 01/19/22 08:18 01/19/22 00:11 Lab results: Cardiac Enzymes 01/19/22 Range/Units 00:11 AST 35 (10-42) U/L Lipids 01/19/22 Range/Units 08:18 Triglycerides 113 (35-149) mg/dL Cholesterol 181 (140-200) mg/dL HDL Cholesterol 46 (35-85) mg/dL Cholesterol/HDL Ratio 3.9 (<5.0) CBC 01/19/22 01/19/22 Range/Units 00:11 08:18 RBC 4.19 4.32 (3.60-5.00) x10E6/uL Hgb 12.9 13.4 (11.8-15.4) g/dL Hct 39.1 40.4 (34.0-46.4) % Plt Count 266 263 (150-450) x10E3/uL Neut # (Auto) 5.2 (1.8-7.7) x10E3/uL Lymph # (Auto) 1.5 (1.00-4.8) x10E3/uL [place] # (Auto) 0.4 (0.0-0.8) x10E3/uL Eos # (Auto) 0.2 (0.0-0.45) x10E3/uL Baso # (Auto) 0.0 (0.0-0.2) x10E3/uL Comprehensive Metabolic Panel 01/19/22 Range/Units 00:11 Sodium 133 L (136-146) mmol/L Potassium 3.8 (3.5-5.1) mmol/L Chloride 96 (95-114) mmol/L Carbon Dioxide 26.3 (22.0-30.0) mmol/L BUN 10 (9-23) mg/dL Creatinine 0.73 (0.44-1.03) mg/dL Glucose 135 H (70-100) mg/dL Calcium 9.2 (8.2-10.2) mg/dL AST 35 (10-42) U/L ALT 18 (10-60) U/L Alkaline Phosphatase 44 (32-92) U/L Total Protein 5.9 L (6.1-7.9) gm/dL Albumin 3.4 (3.2-5.5) gm/dL Intake and Output 01/18/22 01/19/22 01/19/22 23:59 07:59 15:59 Intake Total 0 / 0 Balance 0 / 0 Intake: Oral 0 / 0 Other: # Unmeasured Voids 2 # Bowel Movements 0 Weight 78.8 kg 78.7 kg Date of Last Bowel Movement 01/18/22 01/18/22 Patient Weight 01/19/22 23:59 Weight 78.7 kg Lab 01/19/22 01/19/22 00:11 08:18 PT 11.7 INR 1.0 APTT 27.6 31.1 EKG Interpretations EKG Attestation EKG: I reviewed this ECG and interpreted as documented below: (Normal sinus rhythm with subtle inferolateral ST-T changes) A&P - Cardiology (1) ACS (acute coronary syndrome): Assessment/Problem Details: Patient with classic pictures of acute coronary syndrome. She has high likelihood of underlying ischemic heart disease. Code(s): I24.9 - Acute ischemic heart disease, unspecified (2) Hypertension: Assessment/Problem Details: Blood pressure is poorly controlled Code(s): I10 - Essential (primary) hypertension (3) Peripheral vascular disease: Code(s): I73.9 - Peripheral vascular disease, unspecified Plan 1. 1. Standard therapy for acute coronary syndrome including aspirin, heparin and beta-sarbjit 2. Patient would benefit from invasive evaluation. Risk, benefit alternative reviewed with patient she understood and agreed 3. Patient would benefit from adding PEDRITO inhibitors 4. I reviewed risk, benefit and alternatives with the patient Dr. Hooks. We will in agreement to proceed with invasive assessment Documented By: Yassine Dougherty MD 01/19/22 1222 Signed By: <Electronically signed by MD Yassine Dougherty> 01/19/22 [address] [facility] Work Phone: 1(957) 919-974508-10-2022 History and physical note Author Justa Westfall [facility] January 19, 2022 7:35am Note Date/Time January 18, 2022 11: 29pm [facility] [address] [place] [address] Hospitalist H&P Signed Patient: Steven Harding MR#: [id number] : 1940 Acct:[id number] Age/Sex: 81 / F Adm Date: 2 Loc: Room: [address] [place] [address] Type: ADM IN Attending Dr: Justa Westfall MD Copies to: MD Justa Santos MD~ [facility] DATE OF EXAMINATION: 01/18/22 HISTORY OF PRESENT ILLNESS: This is a pleasant 81F with PMH of HTN, PAD(s/p stenting), Prediabetes, Hypothyroidism who p/w chest pain to the [facility] and transferred for the evaluation and treatment of NSTEMI The patient has been having intermittent chest pain for the past two weeks. She has been treated as GERD by her PCP. today around 3:30 pm, she woke up from a nap with acute constant substernal stabbing chest pain that radiates to the neck. The pain was associated with SOB. She is a former smoker and has a chronic occasional cough but no change recently. She denies any hemoptysis, fever or chills. Her pain got better with the sublingual nitro that was given in the ED. The pain has not resolved completely and she still reports mild pain now. no similar symptoms in the past. She has PAD with multiple procedure but no historyof any CAD Review of Systems Review of Systems Review of systems: Ten Systems reviewed with the patient, all negative except what stated in the HPI PMFSH Vaccinated for COVID-19?: Unknown Medical History (Updated 01/18/22 @ 23:25 by Justa Westfall MD) Benign neoplasm of neck REMOVED Cataracts, bilateral Gallstone Hypertension Hypothyroidism Prediabetes Surgical History (Updated 01/18/22 @ 23:13 by Shubham Galan RN) H/O removal of cyst H/O: hysterectomy History of angioplasty R Femoral Family History (Updated 01/18/22 @ 23:23 by Justa Westfall MD) Other CAD (coronary artery disease) Social History Smoking Status: Former smoker Substance Use Type: None Meds Medications and Allergies Allergies No Known Allergies Allergy (Verified 11/11/19 20:09) Home Medications famotidine 20 mg tablet 20 mg PO DAILY 01/18/22 [History Confirmed 01/18/22] losartan 100 mg tablet 100 mg PO DAILY 01/18/22 [History Confirmed 01/18/22] metformin 1,000 mg tablet 1,000 mg PO BID.AC.BKFAST.SUPPER 01/18/22 [History Confirmed 01/18/22] oxybutynin chloride 5 mg tablet 5 mg PO BID PRN Bladder spasms 01/18/22 [History Confirmed 01/18/22] sucralfate 1 gram tablet 1 g PO QID 01/18/22 [History Confirmed 01/18/22] thyroid (pork) 60 mg tablet (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) 60 mg PO DAILY 01/18/22 [History Confirmed 01/18/22] Exam Physical Exam Vital Signs: Temp Pulse Resp BP Pulse Ox O2 Del Method 36.8 C 82 18 197/93 H 94 L Room Air 01/18/22 22:24 01/18/22 22:24 01/18/22 22:24 01/18/22 22:24 01/18/22 22:24 01/18/22 22:24 Narrative: GEN: Pleasant, Cooperative, Not in acute distress. HEAD: NCAT. ENT: Lips, and tongue are normal, oropharynx normal. EYES: white sclera, PERRLA NECK: Supple, ? JVD, ? LAD, ? thyromegaly, ? carotid bruits LUNGS: CTA. normal respiratory effort. CHEST: no chest wall tenderness. CV: S1S2 nl, ? M/R/G ABD: Soft, ND, NT, + BS, ? rebound/guarding, ?CVA tenderness, ? HSM MUSCULOSKELETAL: ? joint swelling or erythema SKIN: Normal temperature, turgor and texture. EXT: No edema in LE bilaterally, no calf muscle tenderness. NEURO: ? FND PSYCH: nl affect, ? hallucinations, nl speech, AOx3. THEA Risk Score THEA Risk Score Predictor Historical: Age > 65 Years Old and ASA use in Past 7 Days Presentation: Recent (>/=24hr) Angina and Increased Cardiac Marker Score Risk Score (0-7): 4 A&P - Hospitalist Assessment/Plan (1) NSTEMI (non-ST elevated myocardial infarction): (2) Hypertension: (3) Hypothyroidism: (4) Prediabetes: Plan Elevated HS-Troponin/Possible NSTEMI The patient presents with chest pain. [facility]. he pain is much better CXR [facility] ED reported as no acute cardiopulmonary abnormality EKG [facility] ED (i personally reviewed it) shows NSR@90 bpm no significant acute changes nitro patch(started in [place] ED) Morphine prn Telemetry Antiplatelet: Aspirin Anticoagulation: Heparin Drip (started in [place] ED) Start Beta sarbjit therapy Serial EKGs Troponin x2 Check Mg Lipid panel in am Echocardiogram Cardiology consult HTN urgency BP up to 197/93 She didn?t take her losartan today She will be start on losartan plus Beta sarbjit tonight Prediabetes sliding scale insulin and accuchecks. hold oral metformin. hypoglycemia protocol. Code Status: FULL, discussed with patient Chronic diseases: Unless mentioned Above, Essential home medications have been continued. DVT Px : Addressed Plan of care Discussed with: the medical team, the patient and family at bedside Documented By: Justa Westfall MD 01/18/22 4309 Signed By: <Electronically signed by Justa Westfall MD> 01/19/22 [address] [facility] Work Phone: [phone]) 917-412907-23-2022 Evaluation note* Encounter Date Diagnosis Assessment Notes Treatment Notes Treatment Clinical Notes Dec, Herpes zoster without complication (ICD-10 - B02.9) Shingles home care material was printed Drink plenty fluids, get plenty of rest. Continue your home medications as prescribed. Take the valacyclovir as prescribed until gone. Use the eye ointment as prescribed for comfort. Call Dr. Lenz's office thing Monday morning for an appointment to be seen in follow-up as soon as possible. Go to the ER for worsening symptoms or concerns. You may use yfwo-tov-dwnyfft lidocaine gel to the rash for comfort. Patient reports her inside sales administrator is Dr. Lenz, she will follow-up with them on Monday. [employer] Other 03-15-2022 History of Present illness Narrative* Patient is here for follow-up continue management for history of coronary artery disease. Last yearin January she presented with acute coronary syndrome. Cardiac catheterization showed two-vessel coronary artery disease underwent PCI to the left circumflex and RCA. LVEF was preserved by echocardiogram. Since then the patient has done well. She denies complaint of chest pain, palpitation, lightheadedness, dizziness or syncope. She recently have developed rotator cuff injury. But cardiac vicente seem to be doing well. * Assessment * 1. Coronary artery disease with prior presentation myocardial infarction and PCI to the RCA and left circumflex doing well with no recurrence of her symptoms * 2. Hypertension controlled * 3. Hyperlipidemia controlled * 4. Mildly overweight * 5. Previous complaint of shortness of breath resolved * 6. Rotator cuff injury * Plan * 1. The patient was advised to continue present medical therapy unchanged * 2. I reviewed with her her recent lab work * 3. I told her if she is interested in pursuing surgery for her rotator cuff injury this can be doneconsidering its been more than 9 months from her PCI * 4. We discussed risk factor modification and importance of staying active and exercise [facility] 250 DO Work Phone: Discharge summary Author Wiley Beal [facility] January 22, 2022 4:43pm Note Date/Time January 21, 2022 1: 46pm [facility] [address] [place] [address] Discharge Summary Signed Patient: Steven Harding MR#: [id number] : 1940 Acct:[id number] Age/Sex: 81 / F Adm Date: 2 Loc: Room: [address] [place] [address]: Wiley Beal MD Copies to: MD Priyanka Latif MD~ Providers Date of Discharge: 01/21/22 Discharging Provider: Wiley Beal Primary Care Provider: Priyanka Puentes Consults: 01/18/22 22:39 Consult to Cardiology Routine Discharge Diagnosis Final Diagnosis Final Discharge Diagnosis: Non-STEMI, revascularization of RCA and proximal circumflex during this admission Chronic medical comorbidities include Hypertension Hypothyroidism Prediabetes Summary Hospital Course Hospital course: Patient is a pleasant 81-year-old female, who presented to the emergency department complaining of 2-week history of intermittent exertional chest pain. She does have a history of peripheral vascular disease, with remote intervention. Laboratory work-up indicated presence of a non-STEMI. She was admitted to the hospital, was anticoagulated with heparin, taken to the [facility]. On January 19, she was found to have triple-vessel disease, with 90% left circumflex, 80 to 90% RCA, and 70% mid LAD at bifurcation. The first 2 lesions were stented the following day. The other lesion will be angioplastied at a later time. No complications occurred, and the patient was discharged home in stable condition on January 21. Medical therapy will be continued as noted below. Time Spent with Patient Time spent providing/coordinating discharge services (# min): 30 Surgeries and Procedures Operation Date: 01/19/22 11:40 Actual Procedures p CL LHC & COR Angio - Diony Hooks MD Operation Date: 01/20/22 09:15 Actual Procedures p CL Stent 1st Vessel RCA GAYATHRI - Diony Hooks MD p CL Stent 1st Vessel CX GAYATHRI - Diony Hooks MD Diagnostic Studies Completed and Pending Studies Labs on day of discharge: 01/21/22 12:26: POC Glucose 93, POC Glucose Comment Glu2: cleaned meter 01/21/22 07:14: POC Glucose 131, POC Glucose Comment Glu2: cleaned meter 01/21/22 05:50: PHA Creatinine Clear 55.72, Sodium 135 L, Potassium 3.8, Chloride 104, Carbon Dioxide 23.4, BUN 9, Creatinine 0.72, Est GFR ( Amer) > 60, Est GFR (Non-Af Amer) > 60, Glucose 98, Calcium 9.1, Total Bilirubin0.9, AST 25, ALT 16, Alkaline Phosphatase 43, Total Protein 5.8 L, Albumin 3.4, Globulin 2.4, Albumin/Globulin Ratio 1.4 01/21/22 05:50: Corrected WBC 8.5, Uncorrected WBC Count 8.5, RBC 4.35, Hgb 13.3, Hct 40.5, MCV 93.1, MCH 30.7, MCHC 32.9, RDW 14.4, Plt Count 235, MPV 7.8, Neut % (Auto) 74.5, Lymph % (Auto) 14.2, [place] % (Auto) 6.7, Eos % (Auto) 4.2, Baso % (Auto) 0.4, Neut # (Auto) 6.3, Lymph # (Auto) 1.2, [place] # (Auto) 0.6, Eos# (Auto) 0.4, Baso # (Auto) 0.0, Nucleated RBC % (auto) 0.0 01/20/22 22:01: POC Glucose 115 01/20/22 16:29: POC Glucose 117, POC Glucose Comment Glu2: cleaned meter 01/20/22 13:53: APTT 70.5 H Exam Physical Exam Vital Signs: Temp Pulse Resp BP Pulse Ox O2 Del Method 97.6 F 73 20 150/81 H 94 L Room Air 01/21/22 12:00 01/21/22 12:00 01/21/22 12:00 01/21/22 12:00 01/21/22 12:00 01/21/22 12:00 Discharge Plan Discharge Plan Patient Disposition: Home Activity: Other Comment: Please follow cardiac discharge instructions for activity restrictions: Diet: Low-Sodium and Low-Cholesterol Additional Instructions: You are scheduled for STAGED ANGIOPLASTY at [facility] on 02/03/2022 at 1:00pm with Dr Hooks; please check in at 11:00am- follow instructions You are scheduled for COVID testing at [facility] on 02/01/2022 at 10:00am for upcoming Angioplasty. DISCHARGE INSTRUCTIONS FOR ANGIOPLASTY/CORONARY/PERIPHERAL/STENT IMPLANT FOR ADULT ANTICOAGULATION -Since the greatest risk of a blood clot forming with the stent occurs in the first 2-3 weeks after implantation, you will need to take anticoagulants for at least 12-18 months. ANTICOAGULATION MEDICATION Aspirin 81mg once a day, Ticagrelor (Brilinta) 90mg twice a day STATIN MEDICATION Atorvastatin (Lipitor) 80 mg Drug-Eluting Stent (GAYATHRI) DO NOT discontinue Brilinta/Aspirin during the first few months regardless of what you are advised by your family doctor or pharmacist, without first calling the mill house supervisor who implanted the stent. If you require pain relief during this time, please take only ACETAMINOPHEN (TYLENOL)- NO additional aspirin or ibuprofen. DISCHARGE ACTIVITIES ARE FOLLOWS: First week after discharge: -Take it easy at home, no strenuous activity. -Do not lift or pull objects over 10-15 pounds, including children, and groceries for four weeks. If puncture site is at wrist do NOT lift more than three pounds for three days. - May walk up stairs. -May shower. -No excessive scrubbing of the affected site (groin). -May ride in car. -May resume sexual intercourse after 1-2 weeks. -No MRI for 12 days. -May drive in 4-7 days. -If puncture site is at the wrist do not manipulate the wrist for 24 hours, and no soaking wrist for three days. Second Week: -May take a bath -May start walking 3 times a week for 15-20 minutes at a leisurely pace. You should be able to carry on a conversation comfortably without feeling winded. -No strenuous activity as in jogging, running, weight lifting, stair steppers, etc. until the mill house supervisor approves these activities. Check with the mill house supervisor on your first follow-up visit. CALL YOUR PHYSICIAN at [phone]: -If bleeding should occur from the catheter insertion site- apply pressure to the site then immediately call us. -Report any fever, redness, drainage, increased swelling, or firmness at the catheter insertion site. Some bruising or slight swelling may be present at thetime of discharge. -Should arm or leg become cold, numb, white, or blue, contact the mill house supervisor immediately. -IF you should experience episodes of angina, e.g. chest discomfort, heaviness, tightness, pressure burning with or without radiation to the neck, jaw, arms or back- use 1 Nitrostat tablet under your tongue every 5-10 minutes and up to three tablets. IF NO RELIEF, CALL 911 or GO TO THE NEAREST EMERGENCY ROOM. -Please notify our office if you have recurrent angina. -[Cardiac Rehab Education Provided. Participation in the Cardiopulmonary Rehabilitation program is recommended. Please call Central Scheduling at [phone] to schedule your appointment.] The attending mill house supervisor or [facility] nurse clinician should provide you with specific instructions regarding activity, diet, medications, and further follow up for you. Follow the medication instructions provided on your discharge. If the dosages and instructions on this sheet differ from the dosage and instructions on the bottle, follow the instructions on the bottle. [facility] is not responsible for incorrect prescription information provided by thepatient during their visit. Do not stop your medications without consulting your health care provider. Please take the list with you to your next doctor's appointment. Instructions: Coronary Angioplasty (DC), Coronary Stenting (DC), Angina (DC), Chest Pain (DC), Drug Eluting Stents Prescriptions: New atorvastatin 80 mg Tablet 80 mg PO QPM 30 Days Qty: 30 12RF nifedipine 60 mg Tablet Extended Release 24 Hr 60 mg PO DAILY 30 Days Qty: 30 12RF nitroglycerin 0.4 mg Tablet, Sublingual 0.4 mg sublingual Q5M PRN (Reason: Chest Pain) 30 Days Qty: 25 3RF aspirin [Children's Aspirin] 81 mg Tablet,Chewable 81 mg PO DAILY Qty: 0 0RF metoprolol tartrate 25 mg Tablet 25 mg PO BID 30 Days Qty: 60 12RF Brilinta 90 mg Tablet 90 mg PO BID 90 Days Qty: 180 3RF spironolactone 25 mg tablet 25 mg PO DAILY 30 Days Qty: 30 12RF Continued sucralfate 1 gram tablet 1 g PO QID Label Comments: DISSOLVE 1 TABLET IN 2 OUNCES OF WATER & DRINK BY MOUTH ON AN EMPTY STOMACH FOUR TIMES DAILY (BEFORE MEALS & AT BEDTIME) famotidine 20 mg tablet 20 mg PO DAILY Label Comments: TAKE 1 TABLET BY MOUTH ONCE DAILY metformin 1,000 mg tablet 1,000 mg PO BID.AC.BKFAST.SUPPER oxybutynin chloride 5 mg tablet 5 mg PO BID Label Comments: TAKE 1 TABLET BY MOUTH TWICE DAILY losartan 100 mg tablet 100 mg PO DAILY thyroid (pork) [[employer]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] 60 mg tablet 60 mg PO DAILY Label Comments: TAKE 1 TABLET BY MOUTH TWICE DAILY ON AN EMPTY STOMACH Other Ambulatory Orders: Basic Metabolic Panel (Routine) Timeframe: [id number] Location: Determined by Patient Ordered By: Diony Hooks Follow Up: [facility] [Outside] - 01/27/22 4:00 pm Documented By: Wiley Beal MD 01/21/22 1342 Signed By: <Electronically signed by Wiley Beal MD> 01/22/22 1645 [facility] Work Phone: Discharge summary Author Rufus Ricks [facility] March 14, 2023 3:31pm Note Date/Time March 14, 2023 3: 31pm [facility] [address] [place] [address] Discharge Summary Signed Patient: Steven Hadring MR#: [id number] : 1940 Acct:[id number] Age/Sex: 83 / F Adm Date: 3 Loc: Room: [address] [place] [address]: Rufus Ricks DO Copies to: MD Rufus Santos, DO~ Providers Date of Discharge: 03/14/23 Discharging Provider: Rufus Ricsk Primary Care Provider: Priyanka Puentes Consults: 03/12/23 19:40 Consult to Occupational Therapy Routine Consult to Physical Therapy Routine 03/12/23 21:43 Consult to Case Management Routine Discharge Diagnosis (1) Hypertensive urgency: (2) Acute hyponatremia: (3) CAD (coronary artery disease): (4) Hypothyroidism: Final Diagnosis Final Discharge Diagnosis: HTN urgency, Hypothyroid, hyponatremia Summary Hospital Course Hospital course: 83-year-old female with history of CAD status post stents, hypertension, hypothyroidism, who presented to the emergency room complaining about symptoms of severe elevated blood pressure, shakiness and dizziness every time she tries to get up and walk. The patient was recently in the hospital for intermittent episodes of dizziness and lightheadedness. At that time she was noted to be orthostatic hypotensive, she was on losartan, spironolactone and nifedipine, blood pressure was noted to be doing well and all hypertensive medications have been stopped. The patient was discharged on March 07. Since her discharge has not been feeling well. Every time she gets up and walks her blood pressure goes up and she started feeling shaky dizzy and reports a headache. She denied any chest pain, shortness of breath, focal weakness or loss of consciousness. On today's presentation to the emergency room she was noted to have a blood pressure of 199/91 with a pulse rate of 110. EKG showed normal sinus rhythm with left axis deviation. Pt was admitted. BP meds were adjusted and BP improved. Pt's symptoms improved with improvement in BP. TSH was undetectable. Home thyroid medication was held. T3 and T4 WNL so possible that she will need adosage adjustment and that her symptoms are related to exogenous hyperthyroid due to too high of a dose. Discussed with pt who will hold thyroid medications until seen by her PCP. Sodium improved with saline IVF and pt was medically stable for discharge on 03/14 to follow up with PCP to further discuss her thyroid function and symptoms Condition Condition at Discharge: Stable Status at Discharge Overall status at discharge: patient is progressing back to baseline Time Spent with Patient Time spent providing/coordinating discharge services (# min): 45 Diagnostic Studies Completed and Pending Studies Pending studies at discharge: 03/15/23 05:00 BMP [Basic Metabolic Panel] [CHEM] IN AM 03/16/23 05:00 BMP [Basic Metabolic Panel] [CHEM] IN AM 03/17/23 05:00 BMP [Basic Metabolic Panel] [CHEM] IN AM 03/18/23 05:00 BMP [Basic Metabolic Panel] [CHEM] IN AM Labs on day of discharge: 03/14/23 04:54: Free T3 2.85 03/14/23 04:54: PHA Creatinine Clear 48.88, Sodium 130 L, Potassium 4.4, Chloride 101, Carbon Dioxide 23.6, Anion Gap 9.8, BUN 8, Creatinine 0.70, Est GFR (CKD- EPI) > 60.0, Glucose 84, Calcium 8.3 L, Free T4 0.72, TSH 3rd Generation 0.04 L Exam Physical Exam Vital Signs: Temp Pulse Resp BP Pulse Ox O2 Del Method 98.1 F 70 12 155/72 H 95 Room Air 03/14/23 12:00 03/14/23 12:00 03/14/23 12:00 03/14/23 12:00 03/14/23 12:00 03/14/23 12:00 Narrative: General: Awake and alert. Lying in bed comfortably, anxious HEENT: Normocephalic, atraumatic, trachea midline Respiratory: good inspiratory effort, clear to auscultation, no wheeze, no rhonchi, no crackles Cardiovascular: RRR, normal S1 and S2 Abdominal: soft, non-distended, no tenderness, no rebound, no guarding, +BS Skin: warm, dry MSK: no edema Neurologic: No focal deficits Psych: anxious affect Discharge Plan Discharge Plan Patient Disposition: Home Activity: No Activity Restriction Diet: Low-Sodium and Low-Cholesterol Prescriptions: New amlodipine 5 mg Tablet 5 mg PO DAILY 30 Days Qty: 30 0RF metoprolol tartrate 25 mg Tablet 12.5 mg PO BID 30 Days Qty: 30 0RF Continued metformin 1,000 mg tablet 1,000 mg PO BID.AC.BKFAST.SUPPER oxybutynin chloride 5 mg tablet 5 mg PO BID Patient Comments: TAKE 1 TABLET BY MOUTH TWICE DAILY atorvastatin 80 mg Tablet 80 mg PO QPM 30 Days Qty: 30 12RF nitroglycerin 0.4 mg Tablet, Sublingual 0.4 mg sublingual Q5M PRN (Reason: Chest Pain) 30 Days Qty: 25 3RF aspirin [Children's Aspirin] 81 mg Tablet,Chewable 81 mg PO DAILY Qty: 0 0RF clopidogrel 75 mg Tablet 75 mg PO DAILY magnesium oxide 400 mg magnesium tablet 400 mg PO DAILY Qty: 30 0RF Held thyroid (pork) [[employer]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] 60 mg tablet 60 mg PO BID Hold Instructions: Until seen by PCP Patient Comments: TAKE 1 TABLET BY MOUTH TWICE DAILY ON AN EMPTY STOMACH Discontinued metoprolol tartrate 25 mg Tablet 25 mg PO BID 30 Days Qty: 60 12RF Follow Up: Priyanka Puentes MD [Primary Care Provider] - 03/21/23 10:30 am (You have been scheduled for a follow up appointment for the following date and time, please call to reschedule if needed.) Documented By: Rufus Ricks DO 03/14/23 152 8 Signed By: <Electronically signed by Rufus Ricks DO> 03/14/23 1531 [facility] Work Phone: Evaluation note* Diagnosis Onset Date Resolution Status ACS (acute coronary syndrome) acute Hypertension acute Hypothyroidism acute NSTEMI (non-ST elevated myocardial infarction) acute Peripheral vascular disease acute Prediabetes acute [facility] Work Phone: Evaluation note* Diagnosis Onset Date Resolution Status Dizziness acute [facility] Work Phone: Evaluation note* Diagnosis Onset Date Resolution Status Acute hyponatremia acute Dizziness acute Pre-syncope acute [facility] Work Phone: Evaluation note* Diagnosis Onset Date Resolution Status Acute hyponatremia acute Dizziness acute Pre-syncope acute Acute hyponatremia acute CAD (coronary artery disease) acute Hypertensive urgency acute Hypothyroidism acute [facility] Work Phone: History and physical note Author Sima Hdz [facility] March 12, 2023 7:49pm Note Date/Time March 12, 2023 7: 50pm [facility] [address] [place] [address] Hospitalist H&P Signed Patient: Steven Harding MR#: [id number] : 1940 Acct:[id number] Age/Sex: 83 / F Adm Date: 3 Loc: Room: [address] [place] [address] Type: ADM IN Attending Dr: Sima Hdz MD Copies to: MD Sima Santos MD~ HPI DATE OF EXAMINATION: 03/12/23 CHIEF COMPLAINT: Uncontrolled blood pressure, shaking and dizziness HISTORY OF PRESENT ILLNESS: This 83-year-old female with history of CAD status post stents, hypertension, hypothyroidism, who presented to the emergency room complaining about symptoms of severe elevated blood pressure, shakiness and dizziness every time she tries to get up and walk. The patient was recently in the hospital for intermittent episodes of dizziness and lightheadedness. At that time she was noted to be orthostatic hypotensive, she was on losartan, spironolactone and nifedipine, blood pressure was noted to be doing well and all hypertensive medications have been stopped. The patient was discharged on March 07. Since her discharge has not been feeling well. Every time she gets up and walks her blood pressure goes up and she started feeling shaky dizzy and reports a headache. She denied any chest pain, shortness of breath, focal weakness or loss of consciousness. On today's presentation to the emergency room she was noted to have a blood pressure of 199/91 with a pulse rate of 110. EKG showed normal sinus rhythm with left axis deviation Review of Systems Review of Systems All other systems reviewed & are negative unless noted below or in HPI [facility] Medical History Aneurysm Aortic. Being monitored. Per pt found at [facility] during last visit there in January of 2022. Benign neoplasm of neck REMOVED Cataracts, bilateral Gallstone Hypertension Hypothyroidism Myocardial infarct Prediabetes Skin cancer Surgical History H/O heart artery stent H/O removal of cyst H/O: hysterectomy History of angioplasty R Femoral Family History Other CAD (coronary artery disease) Social History Smoking Status: Current every day smoker Tobacco Type: smokeless tobacco Substance Use Type: None Meds Medications and Allergies Allergies codeine Allergy (Verified 03/12/23 14:12) Shakiness ANTIHISTAMINES Allergy (Uncoded 03/12/23 13:44) Weakness Home Medications metformin 1,000 mg tablet 1,000 mg PO BID.AC.BKFAST.SUPPER 01/18/22 [History Confirmed 03/05/23] oxybutynin chloride 5 mg tablet 5 mg PO BID 01/18/22 [History Confirmed 03/05/23] thyroid (pork) 60 mg tablet ([employer]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) 60 mg PO BID 01/18/22 [History Confirmed 03/05/23] aspirin 81 mg chewable tablet (Children's Aspirin) 81 mg PO DAILY #0 tabs 01/21/22 [Rx Confirmed 03/05/23] atorvastatin 80 mg tablet 80 mg PO QPM 30 days #30 tabs 01/21/22 [Rx Confirmed 03/05/23] metoprolol tartrate 25 mg tablet 25 mg PO BID 30 days #60 tabs 01/21/22 [Rx Confirmed 03/05/23] nitroglycerin 0.4 mg sublingual tablet 0.4 mg sublingual Q5M PRN Chest Pain 30 days #25 tabs 01/21/22 [Rx Confirmed 03/05/23] clopidogrel 75 mg tablet 75 mg PO DAILY 03/05/23 [History Confirmed 03/05/23] magnesium oxide 400 mg PO DAILY #30 tabs 03/07/23 [Rx] Exam Physical Exam Vital Signs: Temp Pulse Resp BP Pulse Ox O2 Del Method 98.6 F 110 H 18 199/91 H 96 Room Air 03/12/23 13:44 03/12/23 17:33 03/12/23 17:33 03/12/23 17:59 03/12/23 17:33 03/12/23 17:33 Narrative: General: Patient is alert and awake, laying comfortably in bed, no signs of distress HEENT: Head atraumatic normocephalic, moist mucous membrane, Normal nose and ears, no throat lesions, normal conjunctiva. neck: Supple, no masses, no lymphadenopathy CVS: Regular rate and rhythm, no added sounds or murmurs RES: Clear to auscultation bilaterally, symmetric expansion, no distress ABD: Soft, not distended, no tenderness, positive bowel sounds, no palpable masses EXT: Moves all, no restriction of movement, no calf tenderness, no edema NEURO: Alert, oriented by 3, normal speech, normal motor function Skin: Dry, intact, no rashes or lesions Results Lab Results Labs: Laboratory Last Values Corrected WBC 8.9 X10E3/uL (3.8-11.6) 03/12/23 14:45 Uncorrected WBC Count 8.9 x10E3/uL (3.8-11.6) 03/12/23 14:45 RBC 3.87 X10E6/uL (3.60-5.00) 03/12/23 14:45 Hgb 12.4 g/dL (11.8-15.4) 03/12/23 14:45 Hct 35.5 % (34.0-46.4) 03/12/23 14:45 MCV 91.8 fl (80-100) 03/12/23 14:45 MCH 31.9 pg (24.7-34.3) 03/12/23 14:45 MCHC 34.7 g/dL (32.0-35.0) 03/12/23 14:45 RDW 12.6 % (11.9-15.3) 03/12/23 14:45 Plt Count 237 x10E3/uL (150-450) 03/12/23 14:45 MPV 7.2 fl (6.3-10.7) 03/12/23 14:45 Neut % (Auto) 79.3 % (.) 03/12/23 14:45 Lymph % (Auto) 13.2 % (.) 03/12/23 14:45 [place] % (Auto) 5.1 % (.) 03/12/23 14:45 Eos % (Auto) 2.0 % (.) 03/12/23 14:45 Baso % (Auto) 0.4 % (.) 03/12/23 14:45 Nucleat RBC Rel Count 0.0 /100 WBC (0-0.5) 03/12/23 14:45 Neut # (Auto) 7.0 x10E3/uL (1.8-7.7) 03/12/23 14:45 Lymph # (Auto) 1.2 x10E3/uL (1.00-4.8) 03/12/23 14:45 [place] # (Auto) 0.5 x10E3/uL (0.0-0.8) 03/12/23 14:45 Eos # (Auto) 0.2 x10E3/uL (0.0-0.45) 03/12/23 14:45 Baso # (Auto) 0.0 x10E3/uL (0.0-0.2) 03/12/23 14:45 Monocyte Dist Width 17.50 % (0.00-20.00) 03/12/23 14:45 PT 11.3 Seconds (9.0-12.9) 03/12/23 14:45 INR 0.9 03/12/23 14:45 APTT 26.1 Seconds (25.1-36.5) 03/12/23 14:45 PHA Creatinine Clear 41.99 03/12/23 14:45 Sodium 128 mmol/L (136-145) L 03/12/23 14:45 Potassium 4.5 mmol/L (3.5-5.1) 03/12/23 14:45 Chloride 98 mmol/L (98-107) 03/12/23 14:45 Carbon Dioxide 21.2 mmol/L (21.0-31.0) 03/12/23 14:45 Anion Gap 13.3 mEq/L (6.0-15.0) 03/12/23 14:45 BUN 11 mg/dL (7-25) 03/12/23 14:45 Creatinine 0.92 mg/dL (0.60-1.20) 03/12/23 14:45 Est GFR (CKD-EPI) > 60.0 mL/Min 03/12/23 14:45 Glucose 87 mg/dL (70-100) 03/12/23 14:45 Calcium 9.2 mg/dL (8.6-10.3) 03/12/23 14:45 Total Bilirubin 0.4 mg/dl (0.3-1.0) 03/12/23 14:45 Direct Bilirubin 0.10 mg/dL (0.03-0.18) 03/12/23 14:45 Indirect Bilirubin 0.3 mg/dL 03/12/23 14:45 AST 15 U/L (13-39) 03/12/23 14:45 ALT 14 U/L (7-52) 03/12/23 14:45 Alkaline Phosphatase 40 U/L (34-104) 03/12/23 14:45 Total Creatine Kinase 20 U/L (30-223) L 03/12/23 14:45 Troponin I High Sens 5.6 pg/mL (0.0-15.0) 03/12/23 14:45 B-Natriuretic Peptide 83.0 pg/mL (5-100) 03/12/23 14:45 Total Protein 6.3 gm/dL (6.4-8.9) L 03/12/23 14:45 Albumin 4.1 gm/dL (3.5-5.7) 03/12/23 14:45 Globulin 2.2 gm/dL 03/12/23 14:45 Albumin/Globulin Ratio 1.9 03/12/23 14:45 TSH 3rd Generation 0.01 uIU/mL (0.45-5.33) L 03/12/23 14:45 Urine Color Yellow (Yellow) 03/12/23 15:55 Urine Appearance Slightly cloudy (Clear) A 03/12/23 15:55 Urine pH 7.5 (5.0-9.0) 03/12/23 15:55 Ur Specific [place] 1.010 (1.001-1.030) 03/12/23 15:55 Urine Protein Negative mg/dL (Negative) 03/12/23 15:55 Urine Glucose (UA) Normal mg/dL (Normal) 03/12/23 15:55 Urine Ketones Negative (Negative) 03/12/23 15:55 Urine Occult Blood Negative (Negative) 03/12/23 15:55 Urine Nitrite Negative (Negative) 03/12/23 15:55 Urine Bilirubin Negative (Negative) 03/12/23 15:55 Urine Urobilinogen Normal mg/dL (Normal) 03/12/23 15:55 Ur Leukocyte Esterase 3+ (Negative) H 03/12/23 15:55 Urine RBC None seen /HPF (0-4) 03/12/23 15:55 Urine WBC 5-9 /HPF (0-4) H 03/12/23 15:55 Ur Squamous Epith Cells 5-9 /HPF (0-2) H 03/12/23 15:55 Urine Bacteria 1+ (None Seen) H 03/12/23 15:55 Assessment & Plan Assessment/Plan (1) Hypertensive urgency: (2) Acute hyponatremia: (3) CAD (coronary artery disease): (4) Hypothyroidism: Plan This is an 83-year-old female who had multiple presentations for dizziness, she was recently in the hospital and noted to have orthostatic hypotension and vestibular dysfunction. She was on multiple blood pressure medications which have been stopped. Since her discharge has been having symptoms of dizziness, shakiness with standing and blood pressure going very high. She denies any neurological deficit or chest pain. Work-up from the emergency room revealed normal CBC. Hyponatremia of 128. TSH was suppressed on [place] Thyroid and has been checked twice with a level of 0.01. The patient has been on thyroid treatment for many years and may have also contributed to her symptoms of shakiness if she is overcompensated on her thyroid medicine. Patient will be admitted for observation We will start low-dose metoprolol 12.5 mg twice daily due to history of CAD and hypertension Start amlodipine 5 mg daily Monitor blood pressure and orthostatic blood pressure while in the hospital Stop thyroid replacement for now Continue aspirin, Plavix, Lipitor for history of CAD and stent As needed IV hydralazine for elevated blood pressure Continue metformin for history of insulin resistance Subcu Lovenox for DVT prophylaxis The patient will be admitted for observation for less than 2 nights for blood pressure monitoring CODE STATUS is full code Home medications reviewed IP vs OBS Justification Based on differential dx, clinical care plan, and risk of adverse events, if untreated, in my clinical judgement this patient requires an acute care setting as: OBSERVATION because of an expectation of an under 2 midnight stay. Estimated length of stay (# of days): 2 Documented By: Sima Hdz MD 03/12/231942 Signed By: <Electronically signed by Sima Hdz MD> 03/12/231948 [facility] Work Phone: History general Narrative - Reported* Type Description Date Medical History Hypertension Medical History Insulin Resistant Surgical History teeth extraction upper Surgical History skin cancer removal 2018 Hospitalization History see above eSnips Other History of Present illness Narrative* The patient states she has been generally doing poorly since the last visit. Comorbid Illnesses: diabetes mellitus, hypertension and hyperlipidemia. * Symptoms: denies chest pain at rest, denies exertional chest pain, worsened dyspnea, worsened fatigue, worsened exercise intolerance, denies palpitations, denies edema, denies orthopnea, denies dizziness and denies orthostatic dizziness. * Associated symptoms: no syncope. * Her symptoms limit her activities. * Disease Monitoring: The patient has had a stable weight. * Medications: the patient is adherent with her medication regimen. the patient complains of medication side effects. -[facility] 250 DO Work Phone: History of Present illness Narrative* The patient states she has been generally doing well since the last visit. Comorbid Illnesses: diabetes mellitus, hypertension and hyperlipidemia. * Symptoms: denies chest pain at rest, denies exertional chest pain, resolved dyspnea, improved fatigue, improved exercise intolerance, denies palpitations, denies edema, denies orthopnea, denies dizziness and denies orthostatic dizziness. * Associated symptoms: syncope. * Her symptoms do not limit her activities. * Disease Monitoring: The patient has had a stable weight. * Medications: the patient is adherent with her medication regimen. She denies medication side effects. [facility] 600 DO Work Phone: [place] of Present illness Narrative* Patient is here for follow-up and management for coronary artery disease with prior PCI of the right coronary artery and circumflex, hypertension, hyperlipidemia. Since last time I saw her she deniesany cardiac complaint of chest pain, palpitation, or syncope. She will describe some recent development of gait disturbance. She had been using some scopolamine patches with improvement. She underwent ENT and scheduled to undergo neuro evaluation. * Assessment * 1. Coronary artery disease with prior presentation myocardial infarction and PCI to the RCA and left circumflex doing well with no recurrence of her symptoms * 2. Hypertension controlled * 3. Hyperlipidemia controlled * 4. Mildly overweight * 5. Previous complaint of shortness of breath resolved * 6. Patient reported gait disturbance she is scheduled to see neurology * Plan * 1. The patient was advised to continue present medical therapy unchanged * 2. I advised her to forward copy of his lab work when it is done * 3. I told her if she is interested in pursuing surgery for her rotator cuff injury this can be doneconsidering its been more * 4. we discussed risk factor modification and importance of staying active and exercise * 5. We will see her back in 6 months and follow-up [facility] 250 DO Work Phone: [facility] Work Phone: [facility] Work Phone: [facility] Work Phone: Progress note Author Wiley Beal [facility] January 21, 2022 1:42pm Note Date/Time January 21, 2022 1: 42pm [facility] [address] [place] [address] Hospitalist Progress Note Signed Patient: Steven Harding MR#: [id number] : 1940 Acct:[id number] Age/Sex: 81 / F Adm Date: 2 Loc: Room: 5B6614-3 Type: ADM IN Attending Dr: Wiley Beal MD Copies to: ~ Date of Service: 01/21/2022 Subjective Subjective Narrative: Attending note: I saw the patient personally on the day of encounter. I reviewed the relevant history, and performed the caldera elements of the physical examination. I reviewedthe relevant laboratory workup, radiological studies and the current treatment plan. I formulated the plan of care and confirmed it with the resident/student/[employer] REPAIRER. Patient was seen and examined at bedside today. Patient denies any chest pain and says the shortness of breath has greatly improved since the procedure. Patient was happy to be able to shower and walk around without getting shortness of breath. Exam Physical Exam Vital Signs: Temp Pulse Resp BP Pulse Ox O2 Del Method 97.9 F 77 20 130/68 95 Room Air 01/21/22 07:36 01/21/22 07:36 01/21/22 07:36 01/21/22 07:36 01/21/22 07:36 01/21/22 07:41 Narrative: Gen: patient is alert and oriented, no acute distress Skin: skin is warm and dry H: normocephalic, atraumatic CV: RRR, no murmurs, rubs, gallops Resp: CTA bilaterally, no wheezes, rhonchi, rales Abd: abdomen soft and non-distended, normal bowel sounds, no guarding or tenderness on palpation MSK: no LE edema present Objective Lab Results CBC & Chem 7: 01/21/22 05:50 01/21/22 05:50 Meds Allergies and Active Meds Allergies No Known Allergies Allergy (Verified 11/11/19 20:09) Active Meds: Active Medications Generic Name Dose Route Start Last Admin Trade Name Freq PRN Reason Stop Dose Admin Acetaminophen 650 mg 01/18/22 22:38 Acetaminophen 325 Mg Tablet PO 01/18/23 22:37 Q6H PRN Pain 1-5 or fever Acetaminophen 1,000 mg 01/20/22 13:52 Acetaminophen 500 Mg Tablet PO 01/20/23 13:51 Q6H PRN Mild Pain Al Hydrox/Mg Hydrox/Simethicone 30 ml 01/20/22 13:52 Mag Hydrox/Al Hydrox/Simeth 30 Ml Udc PO 01/20/23 13:51 Q4H PRN Epigastric Distress (Non-card) Aspirin 81 mg 01/19/22 09:00 01/21/22 08:42 Aspirin 81 Mg Tab.Chew PO 01/19/23 08:59 81 mg DAILY YVROSE Administration Atorvastatin Calcium 80 mg 01/19/22 21:00 01/20/22 22:02 Atorvastatin 80 Mg Tablet PO 01/19/23 20:59 80 mg QPM YVROSE Administration Atropine Sulfate 1 mg 01/20/22 11:04 Atropine Sulfate 1 Mg/10 Ml Syringe IV-PUSH ONCE PRN Symptomatic Bradycardia Dextrose 0 gm 01/18/22 22:43 Dextrose 50% In Water 25 Gm/50 Ml Syringe IV-PUSH 01/18/23 22:42 PRN PRN Hypoglycemia Docusate Sodium 100 mg 01/20/22 13:52 Docusate 100 Mg Capsule PO 01/20/23 13:51 QHS PRN Constipation Famotidine 20 mg 01/19/22 09:00 01/21/22 08:42 Famotidine 20 Mg Tablet PO 01/19/23 08:59 20 mg DAILY YVROSE Administration Fentanyl Citrate 25 mcg 01/20/22 13:48 Fentanyl/Pf 100 Mcg/2 Ml Vial IV-PUSH Q2H PRN Headache Fentanyl Citrate 50 mcg 01/20/22 13:48 Fentanyl/Pf 100 Mcg/2 Ml Vial IV-PUSH Q2H PRN Headache Glucose 0 gm 01/18/22 22:43 Dextrose 40% Gel 15 Gm Tube PO 01/18/23 22:42 PRN PRN Hypoglycemia Sodium Chloride 250 mls @ 999 mls/hr 01/20/22 11:04 0.9% Sodium Chloride 250 Ml IV 01/20/23 11:03 PRN PRN Hypotension Insulin Aspart 0 units 01/19/22 08:00 01/21/22 08:12 Insulin Aspart 300 Units/3 Ml Insuln.Pen SUBCUT 01/19/23 07:59 Not Given TID.[facility] Protocol Losartan Potassium 100 mg 01/18/22 23:10 01/21/22 08:42 Losartan 50 Mg Tablet PO 01/18/23 23:09 100 mg DAILY YVROSE Administration Metoprolol Tartrate 25 mg 01/18/22 23:15 01/21/22 08:42 Metoprolol Tartrate 25 Mg Tablet PO 01/18/23 23:14 25 mg BID YVROSE Administration Miscellaneous Information 1 each 01/20/22 09:05 Consult To Pharmacy MISCELLANE 01/20/23 09:04 .PHACONSULT PRN ZZ.Pharmacy Consult Protocol Morphine Sulfate 1 mg 01/18/22 22:38 Morphine Sulfate 2 Mg/Ml Vial IV-PUSH Q4H PRN Pain Scale 7 - 10 Nifedipine 60 mg 01/19/22 11:30 01/21/22 08:41 Nifedipine Er.24hr 60 Mg Tab.Er.24 PO 01/19/23 11:29 60 mg DAILY YVROSE Administration Nitroglycerin 0.4 mg 01/20/22 13:52 Nitroglycerin 0.4 Mg Tab.Subl SUBLINGUAL 01/20/23 13:51 Q5M PRN Chest Pain Ondansetron HCl 4 mg 01/18/22 22:38 Ondansetron 4 Mg/2 Ml Vial IV-PUSH 01/18/23 22:37 Q6H PRN Nausea And Vomiting Oxybutynin Chloride 5 mg 01/19/22 12:00 01/21/22 08:42 Oxybutynin Chloride 5 Mg Tablet PO 01/19/23 11:59 5 mg BID YVROSE Administration Oxycodone/Acetaminophen 1 tab 01/18/22 22:38 01/20/22 14:02 Oxycodone/Acetaminophen 5-325 Mg Tablet PO 1 tab Q6H PRN Administration Pain Scale 6 - 10 Potassium Chloride 40 meq 01/20/22 09:05 Potassium Chloride Er 20 Meq Tab.Er.Prt PO ONCE PRN Potassium </= 3.9 Sodium Chloride 0 ml 01/19/22 11:36 Sodium Chloride 0.9 % 10 Ml Syringe IV-PUSH 01/19/23 11:35 PRN PRN Flush Sodium Chloride 0 ml 01/20/22 09:05 Sodium Chloride 0.9 % 10 Ml Syringe IV-PUSH 01/20/23 09:04 PRN PRN Flush Sucralfate 1 gm 01/19/22 09:00 01/21/22 08:41 Sucralfate 1 Gm Tablet PO 01/19/23 08:59 1 gm QID YVROSE Administration Thyroid 60 mg 01/19/22 06:30 01/21/22 06:16 Thyroid,Pork 60 Mg Tablet PO 01/19/23 06:29 60 mg DAILY@0630 YVROSE Administration Ticagrelor 90 mg 01/20/22 21:00 08/12/22 08:41 Ticagrelor 90 Mg Tablet PO 01/20/23 20:59 90 mg BID YVROSE Administration Tramadol HCl 50 mg 01/20/22 13:52 Tramadol 50 Mg Tablet PO 07/19/22 13:51 Q6H PRN Moderate Pain Triamcinolone Acetonide 1 applic 01/20/22 13:52 Triamcinolone 0.1% Cream 15 Gm Tube TOPICAL 01/20/23 13:51 QID PRN Irritation A&P - Hospitalist Assessment/Plan (1) NSTEMI (non-ST elevated myocardial infarction): (2) Hypertension: (3) Hypothyroidism: (4) Prediabetes: Plan Elevated HS-Troponin/ Type II NSTEMI? -Cardiac catheter was completed. -RCA: there was diffuse concentric and eccentric plaquing of the blood vesselup to 80 to 90% of the luminal diameter. -LCX A. contains 90% stenosis with evidence of plaque disruption. -LAD: There is a Bach (1, 1, 1) bifurcation stenosis of approximately 70% luminal diameter at the bifurcation of the mid LAD and a large D2 branch. -Ischemic CM w basal inferior wall motion abnormality & mild LV systolic dysfunction. EF is 40-45%. -Pt had 2 drug-eluting stents placed in LCX and 2 drug eluting stents placed in RCA. -Continue aspirin, high intensity statin, beta sarbjit, & ARB. -Ticagrelor 180 mg had been added yesterday. Pt will continue on aspirin and ticagrelor (dual antiplatelet therapy) for one year. - Pt's renal function is stable this morning. Awaiting cardiology's plan for discharge today or to place another stent. HTN -Last BP: 130/68. Better controlled. Prediabetes -sliding scale insulin and accuchecks.? -hold oral metformin.? -hypoglycemia protocol. ? Code Status: FULL Chronic Stable medical comorbidities: PAD Hypothyroidism Documented By: Wiley Beal MD 01/21/22 1048 Signed By: <Electronically signed by Wiley Beal MD> 01/21/22 1342 [facility] Work Phone: Chief Complaint and Reason for Visit Chief Complaint Nstemi Chest Pain Chest Pain Reason for Visit ACS (acute coronary syndrome) Hypertension Hypothyroidism NSTEMI (non-ST elevated myocardial infarction) Peripheral vascular disease Prediabetes Chief Complaint lightheaded, weaknes s Reason for Visit Dizziness Chief Complaint lightheaded, weaknes s Reason for Visit Acute hyponatremia Dizziness Pre-syncope Chief Complaint lightheaded, weaknes s shakey Reason for Visit Acute hyponatremia Dizziness Pre-syncope Acute hyponatremia CAD (coronary artery disease) Hypertensive urgency Hypothyroidism Advance Directives No Advanced Directives Records Found Advance Directive Response Recorded Date/ Time Advance Directives No November 10 8:56pm Family History No Family History Records FoundUnknown Family Member Name Dates Details Family history of cardiac di sorder: Mother, Father(V17.49, Z82.49) Status:Active Chief Complaint * I am not doing well * STEVEN HARDING is being seen for follow-up of a hospitalization for chest pain. * Patient was recently hospitalized at [facility]. The patient was seen in Cardiology consult with subsequent cardiovascular management by [facility]. Hospitalization records have been reviewed. * Reason for Cardiology Consultation: ACS * Consulting Nursing Home Manager: Dr. Dougherty * Cardiovascular testing: Echo, cath with subsequent PCI * Changes to cardiovascular medical regimen at time of discharge: ASA, brilinta, lipitor lopressor, aldactone * Discharge disposition: Home * Reports admit at [place] d/t 'kidney pain and being dehydrated'. Spironolactone was stopped. She reports abdominal CT with 'aneurysm below my heart' (will need to obtain records) She has no routine vascular f/u. * Feb 03, 2022 staged uneventful PCI to LAD * Presents today with right and left radial access healed without adverse sequelae. * She has been compliant with medications. * Brilinita is cost prohibitive - script for plavix with loading dose sent into pharmacy last week. * Admit pain 'knife between my shoulder blades' - no reoccurrence. * In retrospect reports 'back pain' for 3 weeks prior to admit and acid reflux. * She presents today reporting 'not doing good'. * She is ok when wakes up in the morning but 20 minutes after taking morning medications (brilinta, lopressor, nifedipine) she becomes 'short of breath, sweaty and weak'. She checks her blood pressure and it is normal. She 'can't do anything for hours'. These symptoms are limiting her daily activity and are very frustrating. * Discussed symptoms most likely related to brilinta. * Will transition to plavix tomorrow * F/U on Monday - if no improvement then hold lopressor. * Secondary Prevention: * HTN: optimal * HLD: tolerating high intensity statin * DM: 'good' * Non smoker * Plan: * 1. Stop Brilinta d/t side effects * 2. Begin Plavix with loading protocol tomorrow * 3. Begin cardiac rehab at [place] * 4. Lipid profile in 2 months (new statin initiation) * 5. Keep scheduled f/u in 6 weeks to reassess * 6. Obtain CT from [place] to verify surveillance testing. * 7. RN to call Monday - if remains with SOB will hold lopressor * 6 week f/u: 'doing better' * STEVEN HARDING is being seen for a 1 month follow-up of dyspnea, weakness and a medication change. * Patient is ambulatory with steady gait. * Last evaluated in clinic by myself February 2022. At that time: * - Discontinued Brilinta due to complaints of dyspnea and weakness. After 72 hours off medication, the symptoms have abated. * - She has started cardiac rehab and is enjoying it . Is attending twice per week. * - Continues to tolerate Lipitor and has lab work for repeat lipid profile * She presents today were overall she is doing much better. She notices that her stamina is starting to improve but she continues to tire very easily. No recurrence of her presenting complaints of knife between my shoulder blades or prior acid reflux. She is increasing her daily activity, has been e ncouraged to continue cardiac rehab. * Secondary prevention * Hypertension: Optimal * Hyperlipidemia: Tolerating high intensity statin and is due for lab work * Diabetes: She denies and reports she is insulin resistant * Non-smoker but utilizes NicoDerm lozenges * Discussed the dynamic nature of coronary artery disease and the importance of seeking medical attention if new symptoms arise. STEVEN HARDING is being seen for a 3 month follow-up of.STEVEN HARDING is being seen for a 6 month follow-up of. Summary Purpose Additional Source Comments REASON FOR VISIT (unrecogniz ed section and content) EYE SWELLING/IRRITATION Care Teams (unrecognized sec tion and content) Team Status: Active Member Role Status Dates Priyanka Puentes MD Primary Care Provider Active Team Status: Inactive Member Role Status Dates Priyanka Puentes MD Primary Care Provider Active Hunter Dhillon PA-C Emergency Provider Active Sima Hdz MD Admit Provider Active Rufus Ricks DO Attending Provider Active Team Status: Inactive Member Role Status Dates Priyanka Puentes MD Primary Care Provider Active Monique Tierney MD Emergency Provider Active Jemal Jones MD Admit Provider Active Chuck Chacon MD Attending Provider Active Team Status: Active Member Role Status Dates Priyanka Puentes MD Primary Care Provider Active Hunter Dhillon PA-C Emergency Provider Active Sima Hdz MD Admit Provider, Attending Provider Active Team Status: Inactive Member Role Status Dates Priyanka Puentes MD Primary Care Provider Active Diony Hooks MD Attending Provider Active Team Status: Inactive Member Role Status Dates Priyanka Puentes MD Primary Care Provider Active Justa Westfall MD Admit Provider Active Wiley Beal MD Attending Provider Active Julita Monzon RN Other Provider Active Isaiah Cordova DO Other Provider Active Vik Segura MD Other Provider Active Moshe Hernandez MD Other Provider Active Yassine Dougherty MD Other Provider Active Anatoly Massey MD Other Provider Active Khanh Persaud APRN Other Provider Active Almita Asif MD Other Provider Active Dora Levine MD Other Provider Active Lydia Kern MD Other Provider Active Team Status: Active Member Role Status Dates Priyanka Puentes MD Primary Care Provider Active Monique Tierney MD Emergency Provider Active Jemal Jones MD Admit Provider, Attending Provi mireille Active INFORMATION SOURCE (unrecogn ized section and content) DATE CREATED AUTHOR 10/18/2022 [facility] DATE CREATED AUTHOR AUTHOR'S ORGANIZ ATION 02/18/2023 [employer] DATE CREATED AUTHOR AUTHOR'S ORGANIZ ATION 03/15/2023 [facility] DATE CREATED AUTHOR AUTHOR'S ORGANIZ ATION 03/18/2023 [facility] DATE CREATED AUTHOR AUTHOR'S ORGANIZ ATION 05/08/2023 [facility] EPIC Goals (unrecognized section and content) Goals may be documented in a n alternate section FOR RECORDS PERTAINING TO PATIENTS WHO ARE OR HAVE BEEN ENROLLED IN A CHEMICAL DEPENDENCY/SUBSTANCEABUSE PROGRAM, SOME INFORMATION MAY BE OMITTED. This clinical summary was aggregated from multiple sources. Caution should be exercised in using it in the provision of clinical care. This summary normalizes information from multiple sources, and as a consequence, information in this document may materially change the coding, format and clinical context of patient data. In addition, data may be omitted in some cases. CLINICAL DECISIONS SHOULD BE BASED ON THE PRIMARY CLINICAL RECORDS. [facility] [employer] [facility]. provides no warranty or guarantee of the accuracy or completeness of information in this document.
--- OUTSIDE RECORDS SUMMARY | 2023-06-27 10:54 | XMS_ITS | CCD ---
Author Name Unknown Address [facility] [address] [place] [address] Organization [facility] Care Team Providers Care Electrical Engineer Mep Name Role Phone Eva Panda Unavailable MD Priyanka Puentes Primary Care Provider MD Justa Westfall Admit Provider MD Wiley Beal Attending Provider DEONTE Monzon Other Provider Unavailable DO Isaiah Cordova Other Provider [phone] MD Vik Segura Other Provider MD [...] Attending Unavailable PRANAY, KHANH Consulting Unavailable PRANAY, HKANH Admitting Unavailable HEMEYER ., DR MATHEW Primary [...] DR MATHEW Primary Care Unavailable MD Priyanka Puentes Primary Care Provider MD Monique Tierney Emergency Provider MD Jemal Jones Admit Provider MD Jemal Jones Attending Provider MD Chuck Chacon Attending Provider [phone] SHANTEL Dhillon Emergency Provider MD Sima Hdz Admit Provider MD Sima Hdz Attending Provider [facility] Rufus Cordon Attending Provider Dr. Priyanka Puentes Primary Care Unava ilable [...] Facility (1 source) diphenhydrAMINE Drug Allergy anaphylaxis [facility] Other (5 sources) Ticagrelor; Translations: [Brilinta TABS] Drug Allergy Fatigue [facility] 600 DO Work Phone: (3 sources) Codeine Drug Allergy 03-12-20 23 [facility] (1 source) Penicillin Drug Allergy 01-19-20 22 [facility] (1 source) Ticagrelor Drug Allergy 01-25-20 22 [facility] (1 source) Antihistamines - Ethanolamine Drug allergy (disorder) 01-27-20 22 [facility] (2 sources) Antihistamines Allergy to substance 03-12-20 23 [facility] Medications Current Medications Medication Drug Class(es) Dates [...] 30 Refills: 11 Ordered: 15-Feb-2022 Lester Persaud POWER TOOL REPAIR TECHNICIAN-FINANCIAL INVESTIGATORKhanh Start : 15-Feb-2022 Active Lisinopril (1 source) [...] DO Active Oxybutynin Activ e Thyroid (Pork) (Cook Apprentice Thyroid) 60 mg tablet (4 sources) Start: 01-18-2022 take 1 tablet by mouth twice daily Thyroid (Pork) (Cook Apprentice Thyroid) 60 mg tablet Active 60 MG PO Twice daily January 18, 2022 12:00am thyroid (long-term) 60 mg oral tablet (10 sources) Start: 01-18-2022 take 1 tablet by mouth twice daily Thyroid (Pork) (Cook Apprentice Thyroid) 60 mg tablet Active 60 MG PO Twice daily January 18, 2022 12:00am take 1 tablet by angel th once daily before breakfast BRIDGE PAINTER HELPER Thyroid 60 MG Oral Tablet TAKE 1 [...] Drug Class(es) Dates Sig (Normalized) Sig (Original) [id number] actuat albuterol 0.09 mg/actuat metered dose [...] Coronary arteriosclerosis; Translations: [Atherosclerotic heart disease of false pass coronary artery without angina pectoris] Onset: 06-14-2022 [...] 01-18-2022 Episodic Other aftercare (1 source) Other roasterman (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; Translations: [OTH REHABILITATION CLERK CURRENT DRUG THERAPY] Onset: 02-02-2022 Episodic Other aftercare (1 source) long term 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 care registered nurse (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) use of oral hypoglycemic drugs; Translations: [[facility] USE ORAL HYPOGLYCEMIC DX] Onset: 02-02-2022 Episodic Other aftercare (1 source) long term acute care registered nurse (current) use of aspirin; Translations: [REHABILITATION CLERK CURRENT USE OF ASPIRIN] Onset: 01-20-2022 Episodic [...] Anion gap [Moles/Vol] 9.8 mmol/L Normal 6.0-15.0 [facility] Comment on above: Performed By: #### B BRIDGE PAINTER HELPER, BMP, PT, PTT, HS TROP, CBC, TSH3, CK #### [facility] [address] Calcium [Mass/Vol] 8.3 mg/dL Low 8.6-10.3 [facility] Comment on above: Performed By: #### B BRIDGE PAINTER HELPER, BMP, PT, PTT, HS TROP, CBC, TSH3, CK #### [facility] [address] [place] [id number] [facility] Chloride [Moles/Vol] 101 mmol/L Normal 98-107 [facility] Comment on above: Performed By: #### B BRIDGE PAINTER HELPER, BMP, PT, PTT, HS TROP, CBC, TSH3, CK #### [facility] [address] CO2 [Moles/Vol] 23.6 mmol/L Normal 21.0-31.0 [facility] Comment on above: Performed By: #### B BRIDGE PAINTER HELPER, BMP, PT, PTT, HS TROP, CBC, TSH3, CK #### [address] Creatinine [Mass/Vol] 0.70 mg/dL Normal 0.60-1.20 [facility] Comment on above: Performed By: #### B BRIDGE PAINTER HELPER, BMP, PT, PTT, HS TROP, CBC, TSH3, CK #### [address] Creatinine Clr Calc Pharmacy 48.88 [facility] Comment on above: Performed By: #### B BRIDGE PAINTER HELPER, BMP, PT, PTT, HS TROP, CBC, TSH3, CK #### [address] GFR/1.73 sq M.predicted MDRD (S/P/Bld) [Vol rate/Area] mL/min/{1.73_m2} [facility] Comment on above: Performed By: #### B BRIDGE PAINTER HELPER, BMP, PT, PTT, HS TROP, CBC, TSH3, CK #### [address] Glucose [Mass/Vol] 84 mg/dL Normal 70-100 [facility] Comment on above: Result Comment: [facility] Glucose Reference Range is dependent on time and content of last meal. Glucose of more than 200 mg/dL in a nonstressed, ambulatory subject supports the diagnosis of Diabetes Mellitus. ADA recommended reference range Performed By: #### B BRIDGE PAINTER HELPER, BMP, PT, PTT, HS TROP, CBC, TSH3, CK #### [address] Potassium [Moles/Vol] 4.4 mmol/L Normal 3.5-5.1 [facility] Comment on above: Performed By: #### B BRIDGE PAINTER HELPER, BMP, PT, PTT, HS TROP, CBC, TSH3, CK #### [address] Sodium [Moles/Vol] 130 mmol/L Low 136-145 [facility] Comment on above: Performed By: #### B BRIDGE PAINTER HELPER, BMP, PT, PTT, HS TROP, CBC, TSH3, CK #### [facility] [address] [place] [address] [place] Urea nitrogen [Mass/Vol] 8 mg/dL Normal 7-[address] [facility] Comment on above: Performed By: #### B BRIDGE PAINTER HELPER, BMP, PT, PTT, HS TROP, CBC, TSH3, CK #### [facility] [address] [place] [address] [place] Calcium [Mass/volume] in Ser um or PlasmaOrdered By: Rufus Ricks on 03-14-2023 Calcium [Mass/Vol] 8.3 mg/dL 8.6-10.3 [facility] Carbon dioxide, total [Moles /volume] in Serum or PlasmaOrdered By: Rufus Ricks on 03-14-2023 CO2 [Moles/Vol] 23.6 mmol/L 21.0-31.0 [facility] Chloride [Moles/volume] in S yamilex or PlasmaOrdered By: Rufus Ricks on 03-14-2023 Chloride [Moles/Vol] 101 mmol/L 98-107 [facility] Creatinine [Mass/volume] in Serum or PlasmaOrdered By: Rufus Ricks on 03-14-2023 Creatinine [Mass/Vol] 0.70 mg/dL 0.60-1.20 [facility] Free T4 (Free Thyroxine)on Free T4 [Mass/Vol] 0.72 ng/dL Normal 0.61-1.12 [facility] Comment on above: Performed By: #### B BRIDGE PAINTER HELPER, BMP, PT, PTT, HS TROP, CBC, TSH3, CK #### [facility] [address] [place] [address] [place] Glucose [Mass/volume] in Ser um or PlasmaOrdered By: Rufus Ricks on 03-14-2023 Glucose [Mass/Vol] 84 mg/dL 70-100 [facility] Comment on above: ADA recommended refe rence rangeRandom Glucose Reference Range is dependent on time and content of last meal. Glucose of more than 200 mg/dL in a nonstressed, ambulatory subject supports the diagnosis of Diabetes Mellitus. No Panel InformationOrdered By: Rufus Ricks on 03-14-2023 Estimated GFR (CKD-EPI) > 60.0 mL/Min [facility] Creatinine Clearance (Chem [address] [facility] Potassium [Moles/volume] in Serum or PlasmaOrdered By: [facility] on 03-14-2023 Potassium [Moles/Vol] 4.4 mmol/L 3.5-5.1 [facility] Serum or plasma anion gap de terminationOrdered By: [facility] on 03-14-2023 Anion gap [Moles/Vol] 9.8 mmol/L 6.0-15.0 [facility] Sodium [Moles/volume] in Ser um or PlasmaOrdered By: [facility] on 03-14-2023 Sodium [Moles/Vol] 130 mmol/L 136-145 [facility] Thyroid Stimulating Hormoneo n 03-14-2023 TSH Qn 0.04 m[IU]/L Low 0.45-5.[address] [facility] Comment on above: Result Comment: PERF ORMED BY: [place] [address] PATHOLOGIST INTERLOCKING PAVEMENT INSTALLER RAQUEL LOPEZ M.D. Performed By: #### B BRIDGE PAINTER HELPER, BMP, PT, PTT, HS TROP, CBC, TSH3, CK #### [address] Thyrotropin [Units/volume] i n Serum or PlasmaOrdered By: [facility] on 03-14-2023 TSH Qn 0.04 m[IU]/L 0.45-5.[address] [facility] Thyroxine (T4) free [Mass/vo lume] in Serum or PlasmaOrdered By: [facility] on 03-14-2023 Free T4 [Mass/Vol] 0.72 ng/dL 0.61-1.12 [facility] Triiodothyronine (T3) Freeon 03-14-2023 Triiodothyronine (T3) Free 2.85 pg/mL Normal 2.50-3.[address] [facility] Comment on above: Result Comment: PERF ORMED BY: [place] [address] PATHOLOGIST INTERLOCKING PAVEMENT INSTALLER RAQUEL LOPEZ M.D. Performed By: #### B BRIDGE PAINTER HELPER, BMP, PT, PTT, HS TROP, CBC, TSH3, CK #### [facility] [address] Triiodothyronine (T3) Free [ Mass/volume] in Serum or PlasmaOrdered By: Rufus ClemensRicks on 03-14-2023 Free T3 [Mass/Vol] 2.85 pg/mL 2.50-3.90 [facility] Urea nitrogen [Mass/volume] in Serum or PlasmaOrdered By: Rufus ClemensRicks on 03-14-2023 Urea nitrogen [Mass/Vol] 8 mg/dL 01-[address] [facility] Basic Metabolic Panelon Anion gap [Moles/Vol] 13.4 mmol/L Normal 6.0-15.0 [facility] Comment on above: Performed By: #### B BRIDGE PAINTER HELPER, BMP, PT, PTT, HS TROP, CBC, TSH3, CK #### [facility] [address] Calcium [Mass/Vol] 9.1 mg/dL Normal 8.6-10.3 [facility] Comment on above: Performed By: #### B BRIDGE PAINTER HELPER, BMP, PT, PTT, HS TROP, CBC, TSH3, CK #### [facility] [address] [place] [address] [place] Chloride [Moles/Vol] 93 mmol/L Low 98-107 [facility] Comment on above: Performed By: #### B BRIDGE PAINTER HELPER, BMP, PT, PTT, HS TROP, CBC, TSH3, CK #### [facility] [address] [place] [address] [place] CO2 [Moles/Vol] 25.0 mmol/L Normal 21.0-31.0 [facility] Comment on above: Performed By: #### B BRIDGE PAINTER HELPER, BMP, PT, PTT, HS TROP, CBC, TSH3, CK #### [facility] [address] [place] [address] [place] Creatinine [Mass/Vol] 0.88 mg/dL Normal 0.60-1.20 [facility] Comment on above: Performed By: #### B BRIDGE PAINTER HELPER, BMP, PT, PTT, HS TROP, CBC, TSH3, CK #### [address] Creatinine Clr Calc Pharmacy 44.44 [facility] Comment on above: Result Comment: PERF ORMED BY: [place] [address] PATHOLOGIST INTERLOCKING PAVEMENT INSTALLER RAQUEL LOPEZ M.D. Performed By: #### B BRIDGE PAINTER HELPER, BMP, PT, PTT, HS TROP, CBC, TSH3, CK #### [address] GFR/1.73 sq M.predicted MDRD (S/P/Bld) [Vol rate/Area] mL/min/{1.73_m2} [facility] Comment on above: Performed By: #### B BRIDGE PAINTER HELPER, BMP, PT, PTT, HS TROP, CBC, TSH3, CK #### [address] Glucose [Mass/Vol] 97 mg/dL Normal 70-100 [facility] Comment on above: Result Comment: [facility] Glucose Reference Range is dependent on time and content of last meal. Glucose of more than 200 mg/dL in a nonstressed, ambulatory subject supports the diagnosis of Diabetes Mellitus. ADA recommended reference range Performed By: #### B BRIDGE PAINTER HELPER, BMP, PT, PTT, HS TROP, CBC, TSH3, CK #### [address] Potassium [Moles/Vol] 4.4 mmol/L Normal 3.5-5.1 [facility] Comment on above: Performed By: #### B BRIDGE PAINTER HELPER, BMP, PT, PTT, HS TROP, CBC, TSH3, CK #### [facility] [address] Sodium [Moles/Vol] 127 mmol/L Low 136-145 [facility] Comment on above: Performed By: #### B BRIDGE PAINTER HELPER, BMP, PT, PTT, HS TROP, CBC, TSH3, CK #### [facility] [address] [place] [address] [place] Urea nitrogen [Mass/Vol] 9 mg/dL Normal 7-[address] [facility] Comment on above: Performed By: #### B BRIDGE PAINTER HELPER, BMP, PT, PTT, HS TROP, CBC, TSH3, CK #### [facility] [address] [place] [id number] [facility] Activated partial thrombopla stin time (aPTT) in platelet poor plasma by coagulation aOrdered By: Hunter Dhillon on 03-12-2023 aPTT Coag (PPP) [Time] 26.1 s 25.1-36.5 [facility] Comment on above: A hematocrit value g reater than 55% may lead to inaccurate results in coagulation testing. Patients having hematocrit values >55% require a special collection tube for coagulation studies. Please contact the laboratory at [phone] for redraw instructions. Alanine aminotransferase [En zymatic activity/volume] in Serum or PlasmaOrdered By: Hunter Dhillon on 03-12-2023 ALT [Catalytic activity/Vol] 14 U/L 7-[address] [facility] Albumin [Mass/volume] in Ser um or Plasma by Bromocresol green (BCG) dye binding methoOrdered By: Hunter Dhillon on 03-12-2023 Albumin BCG dye [Mass/Vol] 4.1 g/dL 3.5-5.[address] [facility] Alkaline phosphatase [Enzyma tic activity/volume] in Serum or PlasmaOrdered By: Hunter Dhillon on 03-12-2023 ALP [Catalytic activity/Vol] 40 U/L 34-[address] [facility] Aspartate aminotransferase [ Enzymatic activity/volume] in Serum or PlasmaOrdered By: Hunter Dhillon on 03-12-2023 AST [Catalytic activity/Vol] 15 U/L 13-[address] [facility] Automated erythrocytes count in urine sediment (number/area)Ordered By: Hunter Dhillon on 03-12-2023 RBC Auto (Urine sed) [#/Area] None seen [HPF] 0-[address] [facility] Automated leukocytes count i n urine sediment (number/area)Ordered By: Hunter Dhillon on 03-12-2023 WBC Auto (Urine sed) [#/Area] 5-9 [HPF] 0-[address] [facility] B-Type Natriuretic Peptideon 03-12-2023 Natriuretic peptide B (Bld) [Mass/Vol] 83.0 pg/mL Normal 5-[address] [facility] Comment on above: Result Comment: PERF ORMED BY: [place] [address] PATHOLOGIST INTERLOCKING PAVEMENT INSTALLER RAQUEL LOPEZ M.D. Performed By: #### B BRIDGE PAINTER HELPER, BMP, PT, PTT, HS TROP, CBC, TSH3, CK #### [address] Basic Metabolic Panelon Anion gap [Moles/Vol] 13.3 mmol/L Normal 6.0-15.0 [facility] Comment on above: Performed By: #### B BRIDGE PAINTER HELPER, BMP, PT, PTT, HS TROP, CBC, TSH3, CK #### [address] Calcium [Mass/Vol] 9.2 mg/dL Normal 8.6-10.3 [facility] Comment on above: Performed By: #### B BRIDGE PAINTER HELPER, BMP, PT, PTT, HS TROP, CBC, TSH3, CK #### [address] Chloride [Moles/Vol] 98 mmol/L Normal 98-107 [facility] Comment on above: Performed By: #### B BRIDGE PAINTER HELPER, BMP, PT, PTT, HS TROP, CBC, TSH3, CK #### [address] CO2 [Moles/Vol] 21.2 mmol/L Normal 21.0-31.0 [facility] Comment on above: Performed By: #### B BRIDGE PAINTER HELPER, BMP, PT, PTT, HS TROP, CBC, TSH3, CK #### [address] Creatinine [Mass/Vol] 0.92 mg/dL Normal 0.60-1.20 [facility] Comment on above: Performed By: #### B BRIDGE PAINTER HELPER, BMP, PT, PTT, HS TROP, CBC, TSH3, CK #### [facility] [address] Creatinine Clr Calc Pharmacy 41.99 [facility] Comment on above: Performed By: #### B BRIDGE PAINTER HELPER, BMP, PT, PTT, HS TROP, CBC, TSH3, CK #### [facility] [address] GFR/1.73 sq M.predicted MDRD (S/P/Bld) [Vol rate/Area] mL/min/{1.73_m2} [facility] Comment on above: Performed By: #### B BRIDGE PAINTER HELPER, BMP, PT, PTT, HS TROP, CBC, TSH3, CK #### [facility] [address] Glucose [Mass/Vol] 87 mg/dL Normal 70-100 [facility] Comment on above: Result Comment: [facility] Glucose Reference Range is dependent on time and content of last meal. Glucose of more than 200 mg/dL in a nonstressed, ambulatory subject supports the diagnosis of Diabetes Mellitus. ADA recommended reference range Performed By: #### B BRIDGE PAINTER HELPER, BMP, PT, PTT, HS TROP, CBC, TSH3, CK #### [address] Potassium [Moles/Vol] 4.5 mmol/L Normal 3.5-5.1 [facility] Comment on above: Performed By: #### B BRIDGE PAINTER HELPER, BMP, PT, PTT, HS TROP, CBC, TSH3, CK #### [facility] [address] Sodium [Moles/Vol] 128 mmol/L Low 136-145 [facility] Comment on above: Performed By: #### B BRIDGE PAINTER HELPER, BMP, PT, PTT, HS TROP, CBC, TSH3, CK #### [address] Urea nitrogen [Mass/Vol] 11 mg/dL Normal 7-[address] [facility] Comment on above: Performed By: #### B BRIDGE PAINTER HELPER, BMP, PT, PTT, HS TROP, CBC, TSH3, CK #### [facility] [address] [place] [id number] [facility] Basophils Auto (Bld) [#/Vol] Ordered By: Hunter Dhillon on 03-12-2023 Basophils (Bld) [#/Vol] 0.0 10*3/uL 0.0-0.[address] [facility] Basophils/100 WBC Auto (Bld) Ordered By: Hunter Dhillon on 03-12-2023 Basophils/100 WBC (Bld) 0.4 % . [facility] Bilirubin Auto test strip Ql (U)Ordered By: Hunter Dhillon on 03-12-2023 Bilirubin Ql (U) Negative Negative [facility] Bilirubin.direct [Mass/volum e] in Serum or PlasmaOrdered By: Hunter Dhillon on 03-12-2023 Bilirubin.direct [Mass/Vol] 0.10 mg/dL 0.03-0.[address] [facility] Bilirubin.total [Mass/volume ] in Serum or PlasmaOrdered By: Hunter Dhillon on 03-12-2023 Bilirubin [Mass/Vol] 0.4 mg/dL 0.3-1.0 [facility] Calcium [Mass/volume] in Ser um or PlasmaOrdered By: Hunter Dhillon on 03-12-2023 Calcium [Mass/Vol] 9.2 mg/dL 8.6-10.3 [facility] Carbon dioxide, total [Moles /volume] in Serum or PlasmaOrdered By: Hunter Dhillon on 03-12-2023 CO2 [Moles/Vol] 21.2 mmol/L 21.0-31.0 [facility] Chloride [Moles/volume] in S yamilex or PlasmaOrdered By: Hunter Dhillon on 03-12-2023 Chloride [Moles/Vol] 98 mmol/L 98-107 [facility] Complete Blood Count Auto Di ffon 03-12-2023 Basophils (Bld) [#/Vol] 0.0 10*3/uL Normal 0.0-0.[address] [facility] Comment on above: Result Comment: PERF ORMED BY: [facility] [address] [place] [address] PATHOLOGIST INTERLOCKING PAVEMENT INSTALLER JIANLAN SUN M.D. Performed By: #### B BRIDGE PAINTER HELPER, BMP, PT, PTT, HS TROP, CBC, TSH3, CK #### [address] Basophils/100 WBC (Bld) 0.4 % Normal . [facility] Comment on above: Performed By: #### B BRIDGE PAINTER HELPER, BMP, PT, PTT, HS TROP, CBC, TSH3, CK #### [address] Eosinophils (Bld) [#/Vol] 0.2 10*3/uL Normal 0.0-0.[address] [facility] Comment on above: Performed By: #### B BRIDGE PAINTER HELPER, BMP, PT, PTT, HS TROP, CBC, TSH3, CK #### [address] Eosinophils/100 WBC (Bld) 2.0 % Normal . [facility] Comment on above: Performed By: #### B BRIDGE PAINTER HELPER, BMP, PT, PTT, HS TROP, CBC, TSH3, CK #### [address] Erythrocyte distribution width (RBC) [Ratio] 12.6 % Normal 11.9-15.[address] [facility] Comment on above: Performed By: #### B BRIDGE PAINTER HELPER, BMP, PT, PTT, HS TROP, CBC, TSH3, CK #### [address] Hematocrit (Bld) [Volume fraction] 35.5 % Normal 34.0-46.[address] [facility] Comment on above: Performed By: #### B BRIDGE PAINTER HELPER, BMP, PT, PTT, HS TROP, CBC, TSH3, CK #### [address] Hemoglobin (Bld) [Mass/Vol] 12.4 g/dL Normal 11.8-15.[address] [facility] Comment on above: Performed By: #### B BRIDGE PAINTER HELPER, BMP, PT, PTT, HS TROP, CBC, TSH3, CK #### [address] Lymphocytes (Bld) [#/Vol] 1.2 10*3/uL Normal 1.00-4.[address] [facility] Comment on above: Performed By: #### B BRIDGE PAINTER HELPER, BMP, PT, PTT, HS TROP, CBC, TSH3, CK #### [address] Lymphocytes/100 WBC (Bld) 13.2 % Normal . [facility] Comment on above: Performed By: #### B BRIDGE PAINTER HELPER, BMP, PT, PTT, HS TROP, CBC, TSH3, CK #### [address] MCH (RBC) [Entitic mass] 31.9 pg Normal 24.7-34.[address] [facility] Comment on above: Performed By: #### B BRIDGE PAINTER HELPER, BMP, PT, PTT, HS TROP, CBC, TSH3, CK #### [address] MCV (RBC) [Entitic vol] 91.8 fL Normal 80-[address] [facility] Comment on above: Performed By: #### B BRIDGE PAINTER HELPER, BMP, PT, PTT, HS TROP, CBC, TSH3, CK #### [address] Mean Corpuscular HGB Conc 34.7 g/dL Normal 32.0-35.[address] [facility] Comment on above: Performed By: #### B BRIDGE PAINTER HELPER, BMP, PT, PTT, HS TROP, CBC, TSH3, CK #### [address] Monocytes (Bld) [#/Vol] 0.5 10*3/uL Normal 0.0-0.[address] [facility] Comment on above: Performed By: #### B BRIDGE PAINTER HELPER, BMP, PT, PTT, HS TROP, CBC, TSH3, CK #### [address] Monocytes/100 WBC (Bld) 17.50 % Normal 0.00-20.[address] [facility] Comment on above: Performed By: #### B BRIDGE PAINTER HELPER, BMP, PT, PTT, HS TROP, CBC, TSH3, CK #### [facility] [address] Monocytes/100 WBC (Bld) 5.1 % Normal . [facility] Comment on above: Performed By: #### B BRIDGE PAINTER HELPER, BMP, PT, PTT, HS TROP, CBC, TSH3, CK #### [facility] [address] Neutrophils (Bld) [#/Vol] 7.0 10*3/uL Normal 1.8-7.[address] [facility] Comment on above: Performed By: #### B BRIDGE PAINTER HELPER, BMP, PT, PTT, HS TROP, CBC, TSH3, CK #### [address] Neutrophils/100 WBC (Bld) 79.3 % Normal . [facility] Comment on above: Performed By: #### B BRIDGE PAINTER HELPER, BMP, PT, PTT, HS TROP, CBC, TSH3, CK #### [address] NRBC% 0.0 /100{WBC} Normal 0-0.[address] [facility] Comment on above: Performed By: #### B BRIDGE PAINTER HELPER, BMP, PT, PTT, HS TROP, CBC, TSH3, CK #### [address] Platelet mean volume (Bld) [Entitic vol] 7.2 fL Normal 6.3-10.[address] [facility] Comment on above: Performed By: #### B BRIDGE PAINTER HELPER, BMP, PT, PTT, HS TROP, CBC, TSH3, CK #### [address] Platelets (Bld) [#/Vol] 237 10*3/uL Normal 150-[address] [facility] Comment on above: Performed By: #### B BRIDGE PAINTER HELPER, BMP, PT, PTT, HS TROP, CBC, TSH3, CK #### [address] RBC (Bld) [#/Vol] 3.87 10*6/uL Normal 3.60-5.00 [facility] Comment on above: Performed By: #### B BRIDGE PAINTER HELPER, BMP, PT, PTT, HS TROP, CBC, TSH3, CK #### [address] WBC (Bld) [#/Vol] 8.9 10*3/uL Normal 3.8-11.6 [facility] Comment on above: Performed By: #### B BRIDGE PAINTER HELPER, BMP, PT, PTT, HS TROP, CBC, TSH3, CK #### [address] Creatine Kinaseon 03-12-2023 CK [Catalytic activity/Vol] 20 U/L Low [facility] Comment on above: Performed By: #### B BRIDGE PAINTER HELPER, BMP, PT, PTT, HS TROP, CBC, TSH3, CK #### [address] Creatine kinase [Enzymatic a ctivity/volume] in Serum or PlasmaOrdered By: Hunter Dhillon on 03-12-2023 CK [Catalytic activity/Vol] 20 U/L [facility] Creatinine [Mass/volume] in Serum or PlasmaOrdered By: Hunter Dhillon on 03-12-2023 Creatinine [Mass/Vol] 0.92 mg/dL 0.60-1.20 [facility] Dipstick and Microscopicon 1 Appearance (U) Slightly Cloudy Critically abnormal Clear [facility] Comment on above: Order Comment: Name Collection Type:: Clean-Voided Midstream Performed By: #### A DDONUAPLUS #### [address] Bacteria,Urine 1+ High None Seen [facility] Comment on above: Order Comment: Name Collection Type:: Clean-Voided Midstream Result Comment: PERF ORMED BY: [place] [address] PATHOLOGIST INTERLOCKING PAVEMENT INSTALLER RAQUEL LOPEZ M.D. Performed By: #### A DDONUAPLUS #### [address] Bilirubin,Urine Negative Normal Negative [facility] Comment on above: Order Comment: Name Collection Type:: Clean-Voided Midstream Performed By: #### A DDONUAPLUS #### [place] [address] [place] Color (U) Yellow Normal Yellow [facility] Comment on above: Order Comment: Name Collection Type:: Clean-Voided Midstream Performed By: #### A DDONUAPLUS #### [place] [address] [place] Glucose Ql (U) Normal Normal Normal [facility] Comment on above: Order Comment: Name Collection Type:: Clean-Voided Midstream Performed By: #### A DDONUAPLUS #### [address] Ketones Ql (U) Negative Normal Negative [facility] Comment on above: Order Comment: Name Collection Type:: Clean-Voided Midstream Performed By: #### A DDONUAPLUS #### [address] Leukocyte esterase Test strip Ql (U) 3+ High Negative [facility] Comment on above: Order Comment: Name Collection Type:: Clean-Voided Midstream Performed By: #### A DDONUAPLUS #### [place] [address] [place] Nitrite,Urine Negative Normal Negative [facility] Comment on above: Order Comment: Name Collection Type:: Clean-Voided Midstream Performed By: #### A DDONUAPLUS #### [place] [address] [place] Occult Blood,Urine Negative Normal Negative [facility] Comment on above: Order Comment: Name Collection Type:: Clean-Voided Midstream Result Comment: PERF ORMED BY: [place] [address] PATHOLOGIST INTERLOCKING PAVEMENT INSTALLER RAQUEL LOPEZ M.D. Performed By: #### A DDONUAPLUS #### [place] [address] [place] pH (U) 7.5 [pH] Normal 5.0-9.[address] [facility] Comment on above: Order Comment: Name Collection Type:: Clean-Voided Midstream Performed By: #### A DDONUAPLUS #### [place] [address] [place] Protein,Urine Negative Normal Negative [facility] Comment on above: Order Comment: Name Collection Type:: Clean-Voided Midstream Performed By: #### A DDONUAPLUS #### [address] RBC,Urine None Seen Normal 0-[address] [facility] Comment on above: Order Comment: Name Collection Type:: Clean-Voided Midstream Performed By: #### A DDONUAPLUS #### [address] Specificy [place],Urine 1.010 Normal 1.001-1.[address] [facility] Comment on above: Order Comment: Name Collection Type:: Clean-Voided Midstream Performed By: #### A DDONUAPLUS #### [address] Squamous Epithelial Cell,Urine 5-9 High 0-[address] [facility] Comment on above: Order Comment: Name Collection Type:: Clean-Voided Midstream Performed By: #### A DDONUAPLUS #### [place] [address] [place] Urobilinogen,Urine Normal Normal Normal [facility] Comment on above: Order Comment: Name Collection Type:: Clean-Voided Midstream Performed By: #### A DDONUAPLUS #### [facility] [address] [place] [address] [place] WBC,Urine 5-9 High 0-[address] [facility] Comment on above: Order Comment: Name Collection Type:: Clean-Voided Midstream Performed By: #### A DDONUAPLUS #### [place] [address] [place] ECG 12 lead ECGon 03-12-2023 ECG 12 lead ECG [facility] [address] [place] [address] [place] [address] Electrocardiograph Report Signed Patient: Steven Harding MR#: [id number] 1 : 1940 Acct:[id number] Age/Sex: 83 / F ADM Date: 03/12/23 Loc: Room: [address] [place] [address] Type: ADM INOo Attending Dr: Sima Hdz [...] longer present Confirmed by Zane Michael DO ([id number]) on 03/13/2023 8:21:27 AM Referred By: Electronically Signed By:Zane Michael DO Transcribed By: MUS Signed By Zane Michael DO [address] [facility] Eosinophils Auto (Bld) [#/Vo l]Ordered By: Hunter Dhillon on 03-12-2023 Eosinophils (Bld) [#/Vol] 0.2 10*3/uL 0.0-0.[address] [facility] Eosinophils/100 WBC Auto (Bl d)Ordered By: Hunter Dhillon on 03-12-2023 Eosinophils/100 WBC (Bld) 2.0 % . [facility] Erythrocyte distribution wid th Auto (RBC) [Ratio]Ordered By: Hunter Dhillon on 03-12-2023 Erythrocyte distribution width (RBC) [Ratio] 12.6 % 11.9-15.[address] [facility] Globulin Calc (S) [Mass/Vol] Ordered By: Hunter Dhillon on 03-12-2023 Globulin (S) [Mass/Vol] 2.2 g/dL [facility] Glucose [Mass/volume] in Ser um or PlasmaOrdered By: Hunter Dhillon on 03-12-2023 Glucose [Mass/Vol] 87 mg/dL 70-100 [facility] Comment on above: ADA recommended refe rence rangeRandom Glucose Reference Range is dependent on time and content of last meal. Glucose of more than 200 mg/dL in a nonstressed, ambulatory subject supports the diagnosis of Diabetes Mellitus. Hematocrit Auto (Bld) [Volum e fraction]Ordered By: Hunter Dhillon on 03-12-2023 Hematocrit (Bld) [Volume fraction] 35.5 % 34.0-46.[address] [facility] Hemoglobin [Mass/volume] in BloodOrdered By: Hunter Dhillon on 03-12-2023 Hemoglobin (Bld) [Mass/Vol] 12.4 g/dL 11.8-15.[address] [facility] Hepatic Panelon 03-12-2023 Albumin [Mass/Vol] 4.1 g/dL Normal 3.5-5.7 [facility] Comment on above: Performed By: #### B BRIDGE PAINTER HELPER, BMP, PT, PTT, HS TROP, CBC, TSH3, CK #### [facility] [address] Albumin/Globulin [Mass ratio] 1.9 {ratio} Normal [facility] Comment on above: Performed By: #### B BRIDGE PAINTER HELPER, BMP, PT, PTT, HS TROP, CBC, TSH3, CK #### [facility] [address] ALP [Catalytic activity/Vol] 40 U/L Normal 34-[address] [facility] Comment on above: Performed By: #### B BRIDGE PAINTER HELPER, BMP, PT, PTT, HS TROP, CBC, TSH3, CK #### [facility] [address] [place] [address] [place] ALT [Catalytic activity/Vol] 14 U/L Normal 7-[address] [facility] Comment on above: Performed By: #### B BRIDGE PAINTER HELPER, BMP, PT, PTT, HS TROP, CBC, TSH3, CK #### [facility] [address] [place] [address] [place] AST [Catalytic activity/Vol] 15 U/L Normal 13-[address] [facility] Comment on above: Performed By: #### B BRIDGE PAINTER HELPER, BMP, PT, PTT, HS TROP, CBC, TSH3, CK #### [facility] [address] Bilirubin [Mass/Vol] 0.4 mg/dL Normal 0.3-1.0 [facility] Comment on above: Performed By: #### B BRIDGE PAINTER HELPER, BMP, PT, PTT, HS TROP, CBC, TSH3, CK #### [facility] [address] Bilirubin,Indirect 0.3 mg/dL Normal [facility] Comment on above: Performed By: #### B BRIDGE PAINTER HELPER, BMP, PT, PTT, HS TROP, CBC, TSH3, CK #### [facility] [address] Bilirubin.indirect [Mass/Vol] 0.10 mg/dL Normal 0.03-0.[address] [facility] Comment on above: Performed By: #### B BRIDGE PAINTER HELPER, BMP, PT, PTT, HS TROP, CBC, TSH3, CK #### [address] Globulin (S) [Mass/Vol] 2.2 g/dL Normal [facility] Comment on above: Performed By: #### B BRIDGE PAINTER HELPER, BMP, PT, PTT, HS TROP, CBC, TSH3, CK #### [address] Protein [Mass/Vol] 6.3 g/dL Low 6.4-8.9 [facility] Comment on above: Performed By: #### B BRIDGE PAINTER HELPER, BMP, PT, PTT, HS TROP, CBC, TSH3, CK #### [address] INR in Platelet poor plasma by Coagulation assayOrdered By: Hunter Dhillon on 03-12-2023 INR Coag (PPP) [Relative time] 0.9 {INR} [facility] Comment on above: INR Therapeutic Rang [...] 03-12-2023 Ketones (U) [Mass/Vol] Negative Negative Fi [facility] Leukocytes [#/volume] correc jazmyne for nucleated erythrocytes in Blood by Automated counOrdered By: Hunter Dhillon on 03-12-2023 WBC corrected for nucl RBC Auto (Bld) [#/Vol] 8.9 10*3/uL 3.8-11.[address] [facility] Lymphocytes Auto (Bld) [#/Vo l]Ordered By: Hunter Dhillon on 03-12-2023 Lymphocytes (Bld) [#/Vol] 1.2 10*3/uL 1.00-4.[address] [facility] Lymphocytes/100 WBC Auto (Bl d)Ordered By: Hunter Dhillon on 03-12-2023 Lymphocytes/100 WBC (Bld) 13.2 % . [facility] MCH Auto (RBC) [Entitic mass ]Ordered By: Hunter Dhillon on 03-12-2023 MCH (RBC) [Entitic mass] 31.9 pg 24.7-34.[address] [facility] MCHC Auto (RBC) [Mass/Vol]Or dered By: Hunter Dhillon on 03-12-2023 MCHC (RBC) [Mass/Vol] 34.7 g/dL 32.0-35.0 [facility] MCV Auto (RBC) [Entitic vol] Ordered By: Hunter Dhillon on 03-12-2023 MCV (RBC) [Entitic vol] 91.8 fL 80-[address] [facility] Monocyte distribution width [Entitic volume] in Blood by AutomatedOrdered By: Hunter Dhillon on 03-12-2023 Monocyte distribution width Auto (Bld) [Entitic vol] 17.50 % 0.00-20.[address] [facility] Monocytes Auto (Bld) [#/Vol] Ordered By: Hunter Dhillon on 03-12-2023 Monocytes (Bld) [#/Vol] 0.5 10*3/uL 0.0-0.[address] [facility] Monocytes/100 WBC Auto (Bld) Ordered By: Hunter Dhillon on 03-12-2023 Monocytes/100 WBC (Bld) 5.1 % . [facility] Natriuretic peptide B [Mass/ Vol]Ordered By: Hunter Dhillon on 03-12-2023 Natriuretic peptide B (Bld) [Mass/Vol] 83.0 pg/mL 5-[address] [facility] Neutrophils Auto (Bld) [#/Vo l]Ordered By: Hunter Dhillon on 03-12-2023 Neutrophils (Bld) [#/Vol] 7.0 10*3/uL 1.8-7.[address] [facility] Neutrophils/100 WBC Auto (Bl d)Ordered By: Hunter Dhillon on 03-12-2023 Neutrophils/100 WBC (Bld) 79.3 % . [facility] No Panel InformationOrdered By: Hunter Dhillon on 03-12-2023 Estimated GFR (CKD-EPI) > 60.0 mL/Min [facility] Creatinine Clearance (Chem 41.[address] [facility] Nucleated erythrocytes [Pres ence] in Blood by Automated countOrdered By: Hunter Dhillon on 03-12-2023 Nucleated RBC Auto Ql (Bld) 0.0 /100{WBC} 0-0.[address] [facility] Partial Thromboplastin Timeo n 03-12-2023 aPTT Coag (Bld) [Time] 26.1 s Normal 25.1-36.5 [facility] Comment on above: Result Comment: A he matocrit value greater than 55% may lead to inaccurate results in coagulation testing. Patients having hematocrit values >55% require a special collection tube for coagulation studies. Please contact the laboratory at [phone] for redraw instructions. PERFORMED BY: [place] [address] PATHOLOGIST INTERLOCKING PAVEMENT INSTALLER RAQUEL LOPEZ M.D. Performed By: #### B BRIDGE PAINTER HELPER, BMP, PT, PTT, HS TROP, CBC, TSH3, CK #### [place] [id number] [facility] Platelet mean volume Auto (B ld) [Entitic vol]Ordered By: Hunter Dhillon on 03-12-2023 Platelet mean volume (Bld) [Entitic vol] 7.2 fL 6.3-10.[address] [facility] Platelets Auto (Bld) [#/Vol] Ordered By: Hunter Dhillon on 03-12-2023 Platelets (Bld) [#/Vol] 237 10*3/uL 150-[address] [facility] Potassium [Moles/volume] in Serum or PlasmaOrdered By: Hunter Dhillon on 03-12-2023 Potassium [Moles/Vol] 4.5 mmol/L 3.5-5.1 [facility] Protein Auto test strip (U) [Mass/Vol]Ordered By: Hunter Dhillon on 03-12-2023 Protein (U) [Mass/Vol] Negative Negative Fi [facility] Protein [Mass/volume] in Ser um or PlasmaOrdered By: Hunter Dhillon on 03-12-2023 Protein [Mass/Vol] 6.3 g/dL 6.4-8.9 [facility] Prothrombin Time INRon 03-12 INR Coag (PPP) [Relative time] 0.9 {INR} Normal [facility] Comment on above: Result Comment: INR [...] 3 - 4.5 Performed By: #### B BRIDGE PAINTER HELPER, BMP, PT, PTT, HS TROP, CBC, TSH3, CK #### [facility] [address] [place] [id number] [facility] PT Coag (PPP) [Time] 11.3 s Normal 9.0-12.9 [facility] Comment on above: Result Comment: A he matocrit value greater than 55% may lead to inaccurate results in coagulation testing. Patients having hematocrit values >55% require a special collection tube for coagulation studies. Please contact the laboratory at [phone] for redraw instructions. Performed By: #### B BRIDGE PAINTER HELPER, BMP, PT, PTT, HS TROP, CBC, TSH3, CK #### [facility] [address] [place] [id number] [facility] Prothrombin time (PT)Ordered By: Hunter Dhillon on 03-12-2023 PT Coag (PPP) [Time] 11.3 s 9.0-12.9 [facility] Comment on above: A hematocrit value g reater than 55% may lead to inaccurate results in coagulation testing. Patients having hematocrit values >55% require a special collection tube for coagulation studies. Please contact the laboratory at [phone] for redraw instructions. RBC Auto (Bld) [#/Vol]Ordere d By: Hunter Dhillon on 03-12-2023 RBC (Bld) [#/Vol] 3.87 10*6/uL 3.60-5.00 [facility] Serum or plasma albumin/glob ulin mass ratioOrdered By: Hunter Dhillon on 03-12-2023 Albumin/Globulin [Mass ratio] 1.9 {ratio} [facility] Serum or plasma anion gap de terminationOrdered By: Hunter Dhillon on 03-12-2023 Anion gap [Moles/Vol] 13.3 mmol/L 6.0-15.0 [facility] Serum or plasma non-glucuron idated bilirubin measurement (mass/volume)Ordered By: Hunter Dhillon on 03-12-2023 Bilirubin.indirect [Mass/Vol] 0.3 mg/dL [facility] Sodium [Moles/volume] in Ser um or PlasmaOrdered By: Hunter Dhillon on 03-12-2023 Sodium [Moles/Vol] 128 mmol/L 136-145 [facility] Squamous epithelial cells de tection in urine sediment by light microscopyOrdered By: Hunter Dhillon on 03-12-2023 Epithelial cells.squamous LM Ql (Urine sed) 5-9 [HPF] 0-[address] [facility] Thyroid Stimulating Hormoneo n 03-12-2023 TSH Qn 0.01 m[IU]/L Low 0.45-5.[address] [facility] Comment on above: Result Comment: PERF ORMED BY: [facility] [address] [place] [address] PATHOLOGIST INTERLOCKING PAVEMENT INSTALLER RAQUEL LOPEZ M.D. Performed By: #### B BRIDGE PAINTER HELPER, BMP, PT, PTT, HS TROP, CBC, TSH3, CK #### [facility] [address] Thyrotropin [Units/volume] i n Serum or PlasmaOrdered By: Hunter Dhillon on 03-12-2023 TSH Qn 0.01 m[IU]/L 0.45-5.[address] [facility] Troponin I High Sensitivityo n 03-12-2023 Troponin I High Sensitivity 5.6 pg/mL Normal 0.0-15.[address] [facility] Comment on above: Result Comment: PERF ORMED BY: [place] [address] PATHOLOGIST INTERLOCKING PAVEMENT INSTALLER RAQUEL LOPEZ M.D. Performed By: #### B BRIDGE PAINTER HELPER, BMP, PT, PTT, HS TROP, CBC, TSH3, CK #### [facility] [address] Troponin I.cardiac [Mass/vol ume] in Serum or Plasma by Detection limit <= 0.01 ng/Ordered By: Hunter Dhillon on 03-12-2023 Troponin I.cardiac DL <= 0.01 ng/mL [Mass/Vol] 5.6 pg/mL 0.0-15.[address] [facility] Urea nitrogen [Mass/volume] in Serum or PlasmaOrdered By: Hunter Dhillon on 03-12-2023 Urea nitrogen [Mass/Vol] 11 mg/dL 7-[address] [facility] Urine appearanceOrdered By: Hunter Dhillon on 03-12-2023 Appearance (U) Slightly cloudy Clear [facility] Urine bacteria detection by automated methodOrdered By: Hunter Dhillon on 03-12-2023 Bacteria Auto Ql (U) 1+ None Seen [facility] Urine colorOrdered By: Gera Dhillon on 03-12-2023 Color (U) Yellow Yellow [facility] Urine glucose measurement by automated test strip (mass/volume)Ordered By: Hunter Dhillon on 03-12-2023 Glucose Auto test strip (U) [Mass/Vol] Normal mg/dL Normal [facility] Urine hemoglobin detection b y automated test stripOrdered By: Hunter Dhillon on 03-12-2023 Hemoglobin Auto test strip Ql (U) Negative Negative [facility] Urine leukocyte esterase det ection by automated test stripOrdered By: Hunter Dhillon on 03-12-2023 Leukocyte esterase Auto test strip Ql (U) 3+ Negative [facility] Urine nitrite detection by a utomated test stripOrdered By: Hunter Dhillon on 03-12-2023 Nitrite Auto test strip Ql (U) Negative Negative [facility] Urobilinogen Auto test strip (U) [Mass/Vol]Ordered By: Hunter Dhillon on 03-12-2023 Urobilinogen (U) [Mass/Vol] Normal mg/dL Normal [facility] WBC Auto (Bld) [#/Vol]Ordere d By: Hunter Dhillon on 03-12-2023 WBC (Bld) [#/Vol] 8.9 10*3/uL 3.8-11.6 [facility] pH Auto test strip (U)Ordere d By: Hunter Dhillon on 03-12-2023 pH (U) 1.010 [pH] 1.001-1.[address] [facility] pH (U) 7.5 [pH] 5.0-9.[address] [facility] Basic Metabolic Panelon 09-2 Anion gap [Moles/Vol] 6.6 mmol/L Normal 6.0-15.0 [facility] Comment on above: Performed By: #### B BRIDGE PAINTER HELPER, BMP, PT, PTT, HS TROP, CBC, TSH3, CK #### [facility] [address] [place] [address] [place] Calcium [Mass/Vol] 8.9 mg/dL Normal 8.6-10.3 [facility] Comment on above: Performed By: #### B BRIDGE PAINTER HELPER, BMP, PT, PTT, HS TROP, CBC, TSH3, CK #### [facility] [address] [place] [address] [place] Chloride [Moles/Vol] 104 mmol/L Normal 98-107 [facility] Comment on above: Performed By: #### B BRIDGE PAINTER HELPER, BMP, PT, PTT, HS TROP, CBC, TSH3, CK #### [facility] [address] [place] [address] [place] CO2 [Moles/Vol] 26.8 mmol/L Normal 21.0-31.0 [facility] Comment on above: Performed By: #### B BRIDGE PAINTER HELPER, BMP, PT, PTT, HS TROP, CBC, TSH3, CK #### [facility] [address] Creatinine [Mass/Vol] 0.83 mg/dL Normal 0.60-1.20 [facility] Comment on above: Performed By: #### B BRIDGE PAINTER HELPER, BMP, PT, PTT, HS TROP, CBC, TSH3, CK #### [facility] [address] [place] [address] [place] Creatinine Clr Calc Pharmacy 46.94 [facility] Comment on above: Performed By: #### B BRIDGE PAINTER HELPER, BMP, PT, PTT, HS TROP, CBC, TSH3, CK #### [facility] [address] [place] [address] [place] GFR/1.73 sq M.predicted MDRD (S/P/Bld) [Vol rate/Area] mL/min/{1.73_m2} [facility] Comment on above: Performed By: #### B BRIDGE PAINTER HELPER, BMP, PT, PTT, HS TROP, CBC, TSH3, CK #### [facility] [address] Glucose [Mass/Vol] 94 mg/dL Normal 70-100 [facility] Comment on above: Result Comment: [facility] Glucose Reference Range is dependent on time and content of last meal. Glucose of more than 200 mg/dL in a nonstressed, ambulatory subject supports the diagnosis of Diabetes Mellitus. ADA recommended reference range Performed By: #### B BRIDGE PAINTER HELPER, BMP, PT, PTT, HS TROP, CBC, TSH3, CK #### [facility] [address] [place] [address] [place] Potassium [Moles/Vol] 4.4 mmol/L Normal 3.5-5.1 [facility] Comment on above: Performed By: #### B BRIDGE PAINTER HELPER, BMP, PT, PTT, HS TROP, CBC, TSH3, CK #### [facility] [address] [place] [address] [place] Sodium [Moles/Vol] 133 mmol/L Low 136-145 [facility] Comment on above: Performed By: #### B BRIDGE PAINTER HELPER, BMP, PT, PTT, HS TROP, CBC, TSH3, CK #### [facility] [address] [place] [id number] [facility] Urea nitrogen [Mass/Vol] 8 mg/dL Normal 7-[address] [facility] Comment on above: Performed By: #### B BRIDGE PAINTER HELPER, BMP, PT, PTT, HS TROP, CBC, TSH3, CK #### [facility] [address] Basophils Auto (Bld) [#/Vol] Ordered By: Chuck Chacon on 03-07-2023 Basophils (Bld) [#/Vol] 0.0 10*3/uL 0.0-0.[address] [facility] Basophils/100 WBC Auto (Bld) Ordered By: Chuck Chacon on 03-07-2023 Basophils/100 WBC (Bld) 0.7 % . [facility] Calcium [Mass/volume] in Ser um or PlasmaOrdered By: Chuck Chacon on 03-07-2023 Calcium [Mass/Vol] 8.9 mg/dL 8.6-10.3 [facility] Carbon dioxide, total [Moles /volume] in Serum or PlasmaOrdered By: Chuckcasandra Chacon on 03-07-2023 CO2 [Moles/Vol] 26.8 mmol/L 21.0-31.0 [facility] Chloride [Moles/volume] in S yamilex or PlasmaOrdered By: Chuck Chacon on 03-07-2023 Chloride [Moles/Vol] 104 mmol/L 98-107 [facility] Complete Blood Count Auto Di ffon 03-07-2023 Basophils (Bld) [#/Vol] 0.0 10*3/uL Normal 0.0-0.[address] [facility] Comment on above: Result Comment: PERF ORMED BY: [place] [address] PATHOLOGIST INTERLOCKING PAVEMENT INSTALLER JIANLAN SUN M.D. Performed By: #### B BRIDGE PAINTER HELPER, BMP, PT, PTT, HS TROP, CBC, TSH3, CK #### [address] Basophils/100 WBC (Bld) 0.7 % Normal . [facility] Comment on above: Performed By: #### B BRIDGE PAINTER HELPER, BMP, PT, PTT, HS TROP, CBC, TSH3, CK #### [address] Eosinophils (Bld) [#/Vol] 0.4 10*3/uL Normal 0.0-0.[address] [facility] Comment on above: Performed By: #### B BRIDGE PAINTER HELPER, BMP, PT, PTT, HS TROP, CBC, TSH3, CK #### [address] Eosinophils/100 WBC (Bld) 5.2 % Normal . [facility] Comment on above: Performed By: #### B BRIDGE PAINTER HELPER, BMP, PT, PTT, HS TROP, CBC, TSH3, CK #### [address] Erythrocyte distribution width (RBC) [Ratio] 12.8 % Normal 11.9-15.[address] [facility] Comment on above: Performed By: #### B BRIDGE PAINTER HELPER, BMP, PT, PTT, HS TROP, CBC, TSH3, CK #### [address] Hematocrit (Bld) [Volume fraction] 35.2 % Normal 34.0-46.[address] [facility] Comment on above: Performed By: #### B BRIDGE PAINTER HELPER, BMP, PT, PTT, HS TROP, CBC, TSH3, CK #### [address] Hemoglobin (Bld) [Mass/Vol] 12.0 g/dL Normal 11.8-15.[address] [facility] Comment on above: Performed By: #### B BRIDGE PAINTER HELPER, BMP, PT, PTT, HS TROP, CBC, TSH3, CK #### [place] [address] [place] Lymphocytes (Bld) [#/Vol] 1.7 10*3/uL Normal 1.00-4.[address] [facility] Comment on above: Performed By: #### B BRIDGE PAINTER HELPER, BMP, PT, PTT, HS TROP, CBC, TSH3, CK #### [address] Lymphocytes/100 WBC (Bld) 24.6 % Normal . [facility] Comment on above: Performed By: #### B BRIDGE PAINTER HELPER, BMP, PT, PTT, HS TROP, CBC, TSH3, CK #### [address] MCH (RBC) [Entitic mass] 31.6 pg Normal 24.7-34.[address] [facility] Comment on above: Performed By: #### B BRIDGE PAINTER HELPER, BMP, PT, PTT, HS TROP, CBC, TSH3, CK #### [address] MCV (RBC) [Entitic vol] 92.5 fL Normal 80-[address] [facility] Comment on above: Performed By: #### B BRIDGE PAINTER HELPER, BMP, PT, PTT, HS TROP, CBC, TSH3, CK #### [address] Mean Corpuscular HGB Conc 34.1 g/dL Normal 32.0-35.[address] [facility] Comment on above: Performed By: #### B BRIDGE PAINTER HELPER, BMP, PT, PTT, HS TROP, CBC, TSH3, CK #### [address] Monocytes (Bld) [#/Vol] 0.6 10*3/uL Normal 0.0-0.[address] [facility] Comment on above: Performed By: #### B BRIDGE PAINTER HELPER, BMP, PT, PTT, HS TROP, CBC, TSH3, CK #### [address] Monocytes/100 WBC (Bld) 8.7 % Normal . [facility] Comment on above: Performed By: #### B BRIDGE PAINTER HELPER, BMP, PT, PTT, HS TROP, CBC, TSH3, CK #### [facility] [address] Neutrophils (Bld) [#/Vol] 4.2 10*3/uL Normal 1.8-7.[address] [facility] Comment on above: Performed By: #### B BRIDGE PAINTER HELPER, BMP, PT, PTT, HS TROP, CBC, TSH3, CK #### [facility] [address] Neutrophils/100 WBC (Bld) 60.8 % Normal . [facility] Comment on above: Performed By: #### B BRIDGE PAINTER HELPER, BMP, PT, PTT, HS TROP, CBC, TSH3, CK #### [facility] [address] NRBC% 0.0 /100{WBC} Normal 0-0.[address] [facility] Comment on above: Performed By: #### B BRIDGE PAINTER HELPER, BMP, PT, PTT, HS TROP, CBC, TSH3, CK #### [address] Platelet mean volume (Bld) [Entitic vol] 7.5 fL Normal 6.3-10.[address] [facility] Comment on above: Performed By: #### B BRIDGE PAINTER HELPER, BMP, PT, PTT, HS TROP, CBC, TSH3, CK #### [address] Platelets (Bld) [#/Vol] 232 10*3/uL Normal 150-[address] [facility] Comment on above: Performed By: #### B BRIDGE PAINTER HELPER, BMP, PT, PTT, HS TROP, CBC, TSH3, CK #### [address] RBC (Bld) [#/Vol] 3.80 10*6/uL Normal 3.60-5.00 [facility] Comment on above: Performed By: #### B BRIDGE PAINTER HELPER, BMP, PT, PTT, HS TROP, CBC, TSH3, CK #### [address] WBC (Bld) [#/Vol] 6.8 10*3/uL Normal 3.8-11.6 [facility] Comment on above: Performed By: #### B BRIDGE PAINTER HELPER, BMP, PT, PTT, HS TROP, CBC, TSH3, CK #### [facility] [address] Creatinine [Mass/volume] in Serum or PlasmaOrdered By: Chuck Chacon on 03-07-2023 Creatinine [Mass/Vol] 0.83 mg/dL 0.60-1.20 [facility] Eosinophils Auto (Bld) [#/Vo l]Ordered By: Chuckscooby Chacon on 03-07-2023 Eosinophils (Bld) [#/Vol] 0.4 10*3/uL 0.0-0.[address] [facility] Eosinophils/100 WBC Auto (Bl d)Ordered By: Chuck Chacon on 03-07-2023 Eosinophils/100 WBC (Bld) 5.2 % . [facility] Erythrocyte distribution wid th Auto (RBC) [Ratio]Ordered By: Chuck Chacon on 03-07-2023 Erythrocyte distribution width (RBC) [Ratio] 12.8 % 11.9-15.[address] [facility] Glucose [Mass/volume] in Ser um or PlasmaOrdered By: Chuck Chacon on 03-07-2023 Glucose [Mass/Vol] 94 mg/dL 70-100 [facility] Comment on above: ADA recommended refe rence rangeRandom Glucose Reference Range is dependent on time and content of last meal. Glucose of more than 200 mg/dL in a nonstressed, ambulatory subject supports the diagnosis of Diabetes Mellitus. Hematocrit Auto (Bld) [Volum e fraction]Ordered By: Chuck Chacon on 03-07-2023 Hematocrit (Bld) [Volume fraction] 35.2 % 34.0-46.[address] [facility] Hemoglobin [Mass/volume] in BloodOrdered By: Chuck Chacon on 03-07-2023 Hemoglobin (Bld) [Mass/Vol] 12.0 g/dL 11.8-15.[address] [facility] Leukocytes [#/volume] correc jazmyne for nucleated erythrocytes in Blood by Automated counOrdered By: Chuck Chacon on 03-07-2023 WBC corrected for nucl RBC Auto (Bld) [#/Vol] 6.8 10*3/uL 3.8-11.[address] [facility] Lymphocytes Auto (Bld) [#/Vo l]Ordered By: Chuck Chacon on 03-07-2023 Lymphocytes (Bld) [#/Vol] 1.7 10*3/uL 1.00-4.[address] [facility] Lymphocytes/100 WBC Auto (Bl d)Ordered By: Chuck Chacon on 03-07-2023 Lymphocytes/100 WBC (Bld) 24.6 % . [facility] MCH Auto (RBC) [Entitic mass ]Ordered By: Chuck Chacon on 03-07-2023 MCH (RBC) [Entitic mass] 31.6 pg 24.7-34.[address] [facility] MCHC Auto (RBC) [Mass/Vol]Or dered By: Chuck Chacon on 03-07-2023 MCHC (RBC) [Mass/Vol] 34.1 g/dL 32.0-35.0 [facility] MCV Auto (RBC) [Entitic vol] Ordered By: Chuck Chacon on 03-07-2023 MCV (RBC) [Entitic vol] 92.5 fL 80-[address] [facility] Magnesiumon 03-07-2023 Magnesium [Mass/Vol] 1.4 mg/dL Low 1.9-2.7 [facility] Comment on above: Result Comment: PERF ORMED BY: [place] [address] PATHOLOGIST INTERLOCKING PAVEMENT INSTALLER RAQUEL LOPEZ M.D. Performed By: #### B BRIDGE PAINTER HELPER, BMP, PT, PTT, HS TROP, CBC, TSH3, CK #### [address] Magnesium [Mass/volume] in S yamilex or PlasmaOrdered By: Chuck Chacon on 03-07-2023 Magnesium [Mass/Vol] 1.4 mg/dL 1.9-2.7 [facility] Monocytes Auto (Bld) [#/Vol] Ordered By: Chuck Chacon on 03-07-2023 Monocytes (Bld) [#/Vol] 0.6 10*3/uL 0.0-0.[address] [facility] Monocytes/100 WBC Auto (Bld) Ordered By: Chuck Chacon on 03-07-2023 Monocytes/100 WBC (Bld) 8.7 % . [facility] Neutrophils Auto (Bld) [#/Vo l]Ordered By: Chuck Chacon on 03-07-2023 Neutrophils (Bld) [#/Vol] 4.2 10*3/uL 1.8-7.[address] [facility] Neutrophils/100 WBC Auto (Bl d)Ordered By: Chuck Chacon on 03-07-2023 Neutrophils/100 WBC (Bld) 60.8 % . [facility] No Panel InformationOrdered By: Chuck Chacon on 03-07-2023 Estimated GFR (CKD-EPI) > 60.0 mL/Min [facility] Creatinine Clearance (Chem 46.[address] [facility] Nucleated erythrocytes [Pres ence] in Blood by Automated countOrdered By: Chuck Chacon on 03-07-2023 Nucleated RBC Auto Ql (Bld) 0.0 /100{WBC} 0-0.[address] [facility] Platelet mean volume Auto (B ld) [Entitic vol]Ordered By: Chuck Chacon on 03-07-2023 Platelet mean volume (Bld) [Entitic vol] 7.5 fL 6.3-10.[address] [facility] Platelets Auto (Bld) [#/Vol] Ordered By: Chuck Chacon on 03-07-2023 Platelets (Bld) [#/Vol] 232 10*3/uL 150-[address] [facility] Potassium [Moles/volume] in Serum or PlasmaOrdered By: Chuck Chacon on 03-07-2023 Potassium [Moles/Vol] 4.4 mmol/L 3.5-5.1 [facility] RBC Auto (Bld) [#/Vol]Ordere d By: Chuck Chacon on 03-07-2023 RBC (Bld) [#/Vol] 3.80 10*6/uL 3.60-5.00 [facility] Serum or plasma anion gap de terminationOrdered By: Chuck Chacon on 03-07-2023 Anion gap [Moles/Vol] 6.6 mmol/L 6.0-15.0 [facility] Sodium [Moles/volume] in Ser um or PlasmaOrdered By: Chuck Chacon on 03-07-2023 Sodium [Moles/Vol] 133 mmol/L 136-145 [facility] Urea nitrogen [Mass/volume] in Serum or PlasmaOrdered By: Chuck Chacon on 03-07-2023 Urea nitrogen [Mass/Vol] 8 mg/dL 01-[address] [facility] WBC Auto (Bld) [#/Vol]Ordere d By: Chuck Chacon on 03-07-2023 WBC (Bld) [#/Vol] 6.8 10*3/uL 3.8-11.6 [facility] A1C with Estimated Average G chelo 03-06-2023 Glucose [Mass/Vol] 120 mg/dL Normal [facility] Comment on above: Result Comment: PERF ORMED BY: [place] [address] PATHOLOGIST INTERLOCKING PAVEMENT INSTALLER RAQUEL LOPEZ M.D. Performed By: #### B BRIDGE PAINTER HELPER, BMP, PT, PTT, HS TROP, CBC, TSH3, CK #### [facility] [address] [place] [address] HbA1c (Bld) [Mass fraction] 5.8 % High 4.3-5.[address] [facility] Comment on above: Result Comment: Incr eased risk for diabetes: 5.7 - 6.4 diabetes: >6.4 glycemic control for adults with diabetes: <7.0 Performed By: #### B BRIDGE PAINTER HELPER, BMP, PT, PTT, HS TROP, CBC, TSH3, CK #### [facility] [address] [place] [address] Alanine aminotransferase [En zymatic activity/volume] in Serum or PlasmaOrdered By: Jemal Jones on 03-06-2023 ALT [Catalytic activity/Vol] 17 U/L 7-[address] [facility] Albumin [Mass/volume] in Ser um or Plasma by Bromocresol green (BCG) dye binding methoOrdered By: Jemal Jones on 03-06-2023 Albumin BCG dye [Mass/Vol] 4.3 g/dL 3.5-5.[address] [facility] Alkaline phosphatase [Enzyma tic activity/volume] in Serum or PlasmaOrdered By: Jemal Jones on 03-06-2023 ALP [Catalytic activity/Vol] 45 U/L 34-[address] [facility] Aspartate aminotransferase [ Enzymatic activity/volume] in Serum or PlasmaOrdered By: Jemal Jones on 03-06-2023 AST [Catalytic activity/Vol] 16 U/L 13-[address] [facility] Bilirubin.total [Mass/volume ] in Serum or PlasmaOrdered By: Jemal Jones on 03-06-2023 Bilirubin [Mass/Vol] 0.5 mg/dL 0.3-1.0 [facility] Cholesterol [Mass/volume] in Serum or PlasmaOrdered By: Jemal Jones on 03-06-2023 Cholesterol [Mass/Vol] 88 mg/dL 140-200 [facility] Comment on above: Chol less than 200 m g/dl low riskChol 201-239 mg/dl borderline riskChol 240 mg/dl and greater high risk Cholesterol in LDL Calc [Mas s/Vol]Ordered By: Jemal Jones on 03-06-2023 Cholesterol in LDL [Mass/Vol] 29 mg/dL 0-[address] [facility] Comment on above: LDL ATP III CLASSIFI CATIONLDL less than 100 mg/dL OptimalLDL 100-129 mg/dL Near or above optimalLDL 130-159 mg/dL Borderline highLDL 160-189 mg/dL HighLDL greater than 189 mg/dL Very high Cholesterol in VLDL Calc [Ma ss/Vol]Ordered By: Jemal Jones on 03-06-2023 Cholesterol in VLDL [Mass/Vol] 16 mg/dL [facility] Complete Blood Count Auto Di ffon 03-06-2023 Basophils (Bld) [#/Vol] 0.0 10*3/uL Normal 0.0-0.[address] [facility] Comment on above: Result Comment: PERF ORMED BY: [place] [address] PATHOLOGIST INTERLOCKING PAVEMENT INSTALLER RAQUEL LOPEZ M.D. Performed By: #### B BRIDGE PAINTER HELPER, BMP, PT, PTT, HS TROP, CBC, TSH3, CK #### [address] Basophils/100 WBC (Bld) 0.6 % Normal . [facility] Comment on above: Performed By: #### B BRIDGE PAINTER HELPER, BMP, PT, PTT, HS TROP, CBC, TSH3, CK #### [address] Eosinophils (Bld) [#/Vol] 0.3 10*3/uL Normal 0.0-0.[address] [facility] Comment on above: Performed By: #### B BRIDGE PAINTER HELPER, BMP, PT, PTT, HS TROP, CBC, TSH3, CK #### [address] Eosinophils/100 WBC (Bld) 4.2 % Normal . [facility] Comment on above: Performed By: #### B BRIDGE PAINTER HELPER, BMP, PT, PTT, HS TROP, CBC, TSH3, CK #### [address] Erythrocyte distribution width (RBC) [Ratio] 12.9 % Normal 11.9-15.[address] [facility] Comment on above: Performed By: #### B BRIDGE PAINTER HELPER, BMP, PT, PTT, HS TROP, CBC, TSH3, CK #### [address] Hematocrit (Bld) [Volume fraction] 37.9 % Normal 34.0-46.[address] [facility] Comment on above: Performed By: #### B BRIDGE PAINTER HELPER, BMP, PT, PTT, HS TROP, CBC, TSH3, CK #### [address] Hemoglobin (Bld) [Mass/Vol] 13.0 g/dL Normal 11.8-15.[address] [facility] Comment on above: Performed By: #### B BRIDGE PAINTER HELPER, BMP, PT, PTT, HS TROP, CBC, TSH3, CK #### [address] Lymphocytes (Bld) [#/Vol] 1.7 10*3/uL Normal 1.00-4.[address] [facility] Comment on above: Performed By: #### B BRIDGE PAINTER HELPER, BMP, PT, PTT, HS TROP, CBC, TSH3, CK #### [address] Lymphocytes/100 WBC (Bld) 22.0 % Normal . [facility] Comment on above: Performed By: #### B BRIDGE PAINTER HELPER, BMP, PT, PTT, HS TROP, CBC, TSH3, CK #### [address] MCH (RBC) [Entitic mass] 31.5 pg Normal 24.7-34.[address] [facility] Comment on above: Performed By: #### B BRIDGE PAINTER HELPER, BMP, PT, PTT, HS TROP, CBC, TSH3, CK #### [address] MCV (RBC) [Entitic vol] 91.9 fL Normal 80-[address] [facility] Comment on above: Performed By: #### B BRIDGE PAINTER HELPER, BMP, PT, PTT, HS TROP, CBC, TSH3, CK #### [address] Mean Corpuscular HGB Conc 34.3 g/dL Normal 32.0-35.[address] [facility] Comment on above: Performed By: #### B BRIDGE PAINTER HELPER, BMP, PT, PTT, HS TROP, CBC, TSH3, CK #### [address] Monocytes (Bld) [#/Vol] 0.6 10*3/uL Normal 0.0-0.[address] [facility] Comment on above: Performed By: #### B BRIDGE PAINTER HELPER, BMP, PT, PTT, HS TROP, CBC, TSH3, CK #### [facility] [address] Monocytes/100 WBC (Bld) 8.2 % Normal . [facility] Comment on above: Performed By: #### B BRIDGE PAINTER HELPER, BMP, PT, PTT, HS TROP, CBC, TSH3, CK #### [facility] [address] Neutrophils (Bld) [#/Vol] 5.1 10*3/uL Normal 1.8-7.[address] [facility] Comment on above: Performed By: #### B BRIDGE PAINTER HELPER, BMP, PT, PTT, HS TROP, CBC, TSH3, CK #### [facility] [address] Neutrophils/100 WBC (Bld) 65.0 % Normal . [facility] Comment on above: Performed By: #### B BRIDGE PAINTER HELPER, BMP, PT, PTT, HS TROP, CBC, TSH3, CK #### [facility] [address] NRBC% 0.1 /100{WBC} Normal 0-0.[address] [facility] Comment on above: Performed By: #### B BRIDGE PAINTER HELPER, BMP, PT, PTT, HS TROP, CBC, TSH3, CK #### [facility] [address] Platelet mean volume (Bld) [Entitic vol] 7.4 fL Normal 6.3-10.[address] [facility] Comment on above: Performed By: #### B BRIDGE PAINTER HELPER, BMP, PT, PTT, HS TROP, CBC, TSH3, CK #### [facility] [address] Platelets (Bld) [#/Vol] 257 10*3/uL Normal 150-[address] [facility] Comment on above: Performed By: #### B BRIDGE PAINTER HELPER, BMP, PT, PTT, HS TROP, CBC, TSH3, CK #### [facility] [address] RBC (Bld) [#/Vol] 4.12 10*6/uL Normal 3.60-5.00 [facility] Comment on above: Performed By: #### B BRIDGE PAINTER HELPER, BMP, PT, PTT, HS TROP, CBC, TSH3, CK #### [address] WBC (Bld) [#/Vol] 7.8 10*3/uL Normal 3.8-11.6 [facility] Comment on above: Performed By: #### B BRIDGE PAINTER HELPER, BMP, PT, PTT, HS TROP, CBC, TSH3, CK #### [address] Comprehensive Metabolic Pane zofia 03-06-2023 Albumin [Mass/Vol] 4.3 g/dL Normal 3.5-5.7 [facility] Comment on above: Performed By: #### B BRIDGE PAINTER HELPER, BMP, PT, PTT, HS TROP, CBC, TSH3, CK #### [address] Albumin/Globulin [Mass ratio] 1.9 {ratio} Normal [facility] Comment on above: Performed By: #### B BRIDGE PAINTER HELPER, BMP, PT, PTT, HS TROP, CBC, TSH3, CK #### [address] ALP [Catalytic activity/Vol] 45 U/L Normal 34-[address] [facility] Comment on above: Performed By: #### B BRIDGE PAINTER HELPER, BMP, PT, PTT, HS TROP, CBC, TSH3, CK #### [address] ALT [Catalytic activity/Vol] 17 U/L Normal 7-[address] [facility] Comment on above: Performed By: #### B BRIDGE PAINTER HELPER, BMP, PT, PTT, HS TROP, CBC, TSH3, CK #### [address] Anion gap [Moles/Vol] 10.4 mmol/L Normal 6.0-15.0 [facility] Comment on above: Performed By: #### B BRIDGE PAINTER HELPER, BMP, PT, PTT, HS TROP, CBC, TSH3, CK #### [facility] [address] AST [Catalytic activity/Vol] 16 U/L Normal 13-[address] [facility] Comment on above: Performed By: #### B BRIDGE PAINTER HELPER, BMP, PT, PTT, HS TROP, CBC, TSH3, CK #### [address] Bilirubin [Mass/Vol] 0.5 mg/dL Normal 0.3-1.0 [facility] Comment on above: Performed By: #### B BRIDGE PAINTER HELPER, BMP, PT, PTT, HS TROP, CBC, TSH3, CK #### [address] Calcium [Mass/Vol] 9.2 mg/dL Normal 8.6-10.3 [facility] Comment on above: Performed By: #### B BRIDGE PAINTER HELPER, BMP, PT, PTT, HS TROP, CBC, TSH3, CK #### [address] Chloride [Moles/Vol] 98 mmol/L Normal 98-107 [facility] Comment on above: Performed By: #### B BRIDGE PAINTER HELPER, BMP, PT, PTT, HS TROP, CBC, TSH3, CK #### [address] CO2 [Moles/Vol] 24.9 mmol/L Normal 21.0-31.0 [facility] Comment on above: Performed By: #### B BRIDGE PAINTER HELPER, BMP, PT, PTT, HS TROP, CBC, TSH3, CK #### [address] Creatinine [Mass/Vol] 0.85 mg/dL Normal 0.60-1.20 [facility] Comment on above: Performed By: #### B BRIDGE PAINTER HELPER, BMP, PT, PTT, HS TROP, CBC, TSH3, CK #### [address] Creatinine Clr Calc Pharmacy 45.45 [facility] Comment on above: Performed By: #### B BRIDGE PAINTER HELPER, BMP, PT, PTT, HS TROP, CBC, TSH3, CK #### [address] GFR/1.73 sq M.predicted MDRD (S/P/Bld) [Vol rate/Area] mL/min/{1.73_m2} [facility] Comment on above: Performed By: #### B BRIDGE PAINTER HELPER, BMP, PT, PTT, HS TROP, CBC, TSH3, CK #### [address] Globulin (S) [Mass/Vol] 2.3 g/dL [facility] Comment on above: Performed By: #### B BRIDGE PAINTER HELPER, BMP, PT, PTT, HS TROP, CBC, TSH3, CK #### [address] Glucose [Mass/Vol] 97 mg/dL Normal 70-100 [facility] Comment on above: Result Comment: [facility] Glucose Reference Range is dependent on time and content of last meal. Glucose of more than 200 mg/dL in a nonstressed, ambulatory subject supports the diagnosis of Diabetes Mellitus. ADA recommended reference range Performed By: #### B BRIDGE PAINTER HELPER, BMP, PT, PTT, HS TROP, CBC, TSH3, CK #### [address] Potassium [Moles/Vol] 4.3 mmol/L Normal 3.5-5.1 [facility] Comment on above: Performed By: #### B BRIDGE PAINTER HELPER, BMP, PT, PTT, HS TROP, CBC, TSH3, CK #### [address] Protein [Mass/Vol] 6.6 g/dL Normal 6.4-8.9 [facility] Comment on above: Performed By: #### B BRIDGE PAINTER HELPER, BMP, PT, PTT, HS TROP, CBC, TSH3, CK #### [address] Sodium [Moles/Vol] 129 mmol/L Low 136-145 [facility] Comment on above: Performed By: #### B BRIDGE PAINTER HELPER, BMP, PT, PTT, HS TROP, CBC, TSH3, CK #### [facility] [address] [place] [address] [place] Urea nitrogen [Mass/Vol] 14 mg/dL Normal 01-[address] [facility] Comment on above: Performed By: #### B BRIDGE PAINTER HELPER, BMP, PT, PTT, HS TROP, CBC, TSH3, CK #### [facility] [address] [place] [address] [place] Dipstick and Microscopicon 0 03-06-2023 Appearance (U) Clear Normal Clear [facility] Comment on above: Order Comment: Name Collection Type:: Clean-Voided Midstream Performed By: #### A DDONUAPLUS #### [place] [address] [place] Bacteria,Urine 1+ High None Seen [facility] Comment on above: Order Comment: Name Collection Type:: Clean-Voided Midstream Performed By: #### A DDONUAPLUS #### [place] [address] [place] Bilirubin,Urine Negative Normal Negative [facility] Comment on above: Order Comment: Name Collection Type:: Clean-Voided Midstream Performed By: #### A DDONUAPLUS #### [place] [address] [place] Color (U) Yellow Normal Yellow [facility] Comment on above: Order Comment: Name Collection Type:: Clean-Voided Midstream Performed By: #### A DDONUAPLUS #### [facility] [address] [place] [address] [place] Glucose Ql (U) Normal Normal Normal [facility] Comment on above: Order Comment: Name Collection Type:: Clean-Voided Midstream Performed By: #### A DDONUAPLUS #### [place] [address] [place] Hyaline Casts,Urine None Seen Normal 0- [facility] Comment on above: Order Comment: Name Collection Type:: Clean-Voided Midstream Result Comment: PERF ORMED BY: [place] [address] PATHOLOGIST INTERLOCKING PAVEMENT INSTALLER RAQUEL LOPEZ M.D. Performed By: #### A DDONUAPLUS #### [facility] [address] [place] [address] [place] Ketones Ql (U) Trace High Negative [facility] Comment on above: Order Comment: Name Collection Type:: Clean-Voided Midstream Performed By: #### A DDONUAPLUS #### [address] Leukocyte esterase Test strip Ql (U) 1+ High Negative [facility] Comment on above: Order Comment: Name Collection Type:: Clean-Voided Midstream Performed By: #### A DDONUAPLUS #### [place] [address] [place] Nitrite,Urine Negative Normal Negative [facility] Comment on above: Order Comment: Name Collection Type:: Clean-Voided Midstream Performed By: #### A DDONUAPLUS #### [place] [address] [place] Occult Blood,Urine Negative Normal Negative [facility] Comment on above: Order Comment: Name Collection Type:: Clean-Voided Midstream Result Comment: PERF ORMED BY: [place] [address] PATHOLOGIST INTERLOCKING PAVEMENT INSTALLER RAQUEL LOPEZ M.D. Performed By: #### A DDONUAPLUS #### [place] [address] [place] pH (U) 6.0 [pH] Normal 5.0-9.[address] [facility] Comment on above: Order Comment: Name Collection Type:: Clean-Voided Midstream Performed By: #### A DDONUAPLUS #### [place] [address] [place] Protein,Urine Negative Normal Negative [facility] Comment on above: Order Comment: Name Collection Type:: Clean-Voided Midstream Performed By: #### A DDONUAPLUS #### [place] [address] [place] RBC,Urine None Seen Normal 0-[address] [facility] Comment on above: Order Comment: Name Collection Type:: Clean-Voided Midstream Performed By: #### A DDONUAPLUS #### [address] Renal Epithelial Cells,Urine Rare Normal 0-[address] [facility] Comment on above: Order Comment: Name Collection Type:: Clean-Voided Midstream Performed By: #### A DDONUAPLUS #### [address] Specificy [place],Urine 1.015 Normal 1.001-1.[address] [facility] Comment on above: Order Comment: Name Collection Type:: Clean-Voided Midstream Performed By: #### A DDONUAPLUS #### [address] Squamous Epithelial Cell,Urine 3-4 High 0-[address] [facility] Comment on above: Order Comment: Name Collection Type:: Clean-Voided Midstream Performed By: #### A DDONUAPLUS #### [address] Urobilinogen,Urine Normal Normal Normal [facility] Comment on above: Order Comment: Name Collection Type:: Clean-Voided Midstream Performed By: #### A DDONUAPLUS #### [address] WBC,Urine 3-4 Normal 0-[address] [facility] Comment on above: Order Comment: Name Collection Type:: Clean-Voided Midstream Performed By: #### A DDONUAPLUS #### [address] ECH echo transthoracicon ECH echo transthoracic [place] [address] Echocardiogram Signed Patient: Steven Harding MR#: [id number] [birth year] : 1940 Acct:[id number] Age/Sex: 83 / F ADM Date: 03/05/23 Loc: Room: [address] [place] [address] Type: ADM INOo Attending Dr: Chuck Chacon MD Ordering Provider: Jemal Jones MD Date of Service: 03/06/23 ECH/ECH echo transthoracic: Dizziness Copies to: MD Jemal Tello MD Weight: 140 lb Performed By: FREDDIE Vallejo BSA: 1.6 m2 BP: 160/69 mmHg HR: 75 Reason For Study: Dizziness History: aortic aneurysm, HTN, [place], pre-DM, PCI, former smoker, CAD Interpretation Summary [...] By: Yassine Dougherty MD 03/06/[address] [facility] Free T4 (Free Thyroxine)on 03-06-2023 Free T4 [Mass/Vol] 1.01 ng/dL Normal 0.61-1.12 [facility] Comment on above: Performed By: #### B BRIDGE PAINTER HELPER, BMP, PT, PTT, HS TROP, CBC, TSH3, CK #### [facility] [address] Globulin Calc (S) [Mass/Vol] Ordered By: Jemal Jones on 03-06-2023 Globulin (S) [Mass/Vol] 2.3 g/dL [facility] Glucose Glucometer (BldC) [M ass/Vol]Ordered By: Jemal Jones on 03-06-2023 Glucose [Mass/Vol] 104 mg/dL [facility] Comment on above: Random Glucose Refer ence Range is dependent on time and content of last meal. Glucose of more than 200 mg/dL in a nonstressed, ambulatory subject supports the diagnosis of Diabetes Mellitus. Glucose Poct Glucometerson 03-06-2023 Glucose [Mass/Vol] 104 mg/dL Normal [facility] Comment on above: Result Comment: [facility] Glucose Reference Range is dependent on time and content of last meal. Glucose of more than 200 mg/dL in a nonstressed, ambulatory subject supports the diagnosis of Diabetes Mellitus. PERFORMED BY: [place] [address] PATHOLOGIST INTERLOCKING PAVEMENT INSTALLER RAQUEL LOPEZ M.D. Performed By: #### B BRIDGE PAINTER HELPER, BMP, PT, PTT, HS TROP, CBC, TSH3, CK #### [address] Glucose mean value [Mass/vol ume] in Blood Estimated from glycated hemoglobinOrdered By: Jemal Jones on 03-06-2023 Average glucose Estimated from glycated hemoglobin (Bld) [Mass/Vol] 120 mg/dL [facility] Hemoglobin A1c percentageOrd ered By: Jemal Jones on 03-06-2023 HbA1c (Bld) [Mass fraction] 5.8 % 4.3-5.[address] [facility] Comment on above: Increased risk for d iabetes: 5.7 - 6.4diabetes: >6.4glycemic control for adults with diabetes: <7.0 Lipid Panelon 03-06-2023 Cholesterol [Mass/Vol] 88 mg/dL Low 140-200 [facility] Comment on above: Result Comment: Chol less than 200 mg/dl low risk Chol 201-239 mg/dl borderline risk Chol 240 mg/dl and greater high risk Performed By: #### B BRIDGE PAINTER HELPER, BMP, PT, PTT, HS TROP, CBC, TSH3, CK #### [address] Cholesterol in HDL [Mass/Vol] 42 mg/dL Normal 23-[address] [facility] Comment on above: Result Comment: HDL CHOL ATP-III CLASSIFICATION Cardiovascular Risk HDL > or equal to 60 mg/dL LOW HDL < 40 mg/dL HIGH Performed By: #### B BRIDGE PAINTER HELPER, BMP, PT, PTT, HS TROP, CBC, TSH3, CK #### [facility] [address] [place] [address] [facility] Cholesterol.total/Chol esterol in HDL [Mass ratio] 2.1 {ratio} Normal <5.[address] [facility] Comment on above: Performed By: #### B BRIDGE PAINTER HELPER, BMP, PT, PTT, HS TROP, CBC, TSH3, CK #### [facility] [address] LDL Cholesterol,Calculated 29 mg/dL Normal 0-[address] [facility] Comment on above: Result Comment: LDL ATP III CLASSIFICATION LDL less than 100 mg/dL Optimal LDL 100-129 mg/dL Near or above optimal LDL 130-159 mg/dL Borderline high LDL 160-189 mg/dL High LDL greater than 189 mg/dL Very high Performed By: #### B BRIDGE PAINTER HELPER, BMP, PT, PTT, HS TROP, CBC, TSH3, CK #### [facility] [address] Triglyceride w/Reflex 84 mg/dL Normal 0-149 [facility] Comment on above: Result Comment: TRIG ATP III CLASSIFICATION TRIG less than 150 mg/dL Normal TRIG 150-199 mg/dL Borderline high TRIG 200-500 mg/dL High TRIG greater than 500 mg/dL Very high Standard traceable to the Center for Disease Conrtrol and Prevention (CDC) test method. Performed By: #### B BRIDGE PAINTER HELPER, BMP, PT, PTT, HS TROP, CBC, TSH3, CK #### [facility] [address] VLDL CHOLESTEROL 16 mg/dL Normal [facility] Comment on above: Performed By: #### B BRIDGE PAINTER HELPER, BMP, PT, PTT, HS TROP, CBC, TSH3, CK #### [facility] [address] Magnesiumon 03-06-2023 Magnesium [Mass/Vol] 1.4 mg/dL Low 1.9-2.7 [facility] Comment on above: Performed By: #### B BRIDGE PAINTER HELPER, BMP, PT, PTT, HS TROP, CBC, TSH3, CK #### [facility] [address] Protein [Mass/volume] in Ser um or PlasmaOrdered By: Jemal Jones on 03-06-2023 Protein [Mass/Vol] 6.6 g/dL 6.4-8.9 [facility] Serum or plasma albumin/glob ulin mass ratioOrdered By: Jemal Jones on 03-06-2023 Albumin/Globulin [Mass ratio] 1.9 {ratio} [facility] Serum or plasma high density lipoprotein (HDL) cholesterol measurementOrdered By: Jemal Jones on 03-06-2023 Cholesterol in HDL [Mass/Vol] 42 mg/dL 23-[address] [facility] Comment on above: HDL CHOL ATP-III CLA SSIFICATION Cardiovascular RiskHDL > or equal to 60 mg/dL LOWHDL < 40 mg/dL HIGH Serum or plasma total choles terol/high density lipoprotein (HDL) cholesterol mass ratOrdered By: Jemal Jones on 03-06-2023 Cholesterol.total/Chol esterol in HDL [Mass ratio] 2.1 {ratio} <5.[address] [facility] Thyroxine (T4) free [Mass/vo lume] in Serum or PlasmaOrdered By: Jemal Jones on 03-06-2023 Free T4 [Mass/Vol] 1.01 ng/dL 0.61-1.12 [facility] Triglyceride [Mass/volume] i n Serum or PlasmaOrdered By: Jemal Jones on 03-06-2023 Triglyceride [Mass/Vol] 84 mg/dL 0-[address] [facility] Comment on above: TRIG ATP III CLASSIF ICATIONTRIG less than 150 mg/dL NormalTRIG 150-199 mg/dL Borderline highTRIG 200-500 mg/dL High TRIG greater than 500 mg/dL Very highStandard traceable to the Center for Disease Conrtrol and Prevention (CDC) test method. Triiodothyronine (T3) Totalo n 03-06-2023 Triiodothyronine (T3) Total 1.29 ng/mL Normal 0.87-1.[address] [facility] Comment on above: Result Comment: PERF ORMED BY: [facility] [address] [place] [address] PATHOLOGIST INTERLOCKING PAVEMENT INSTALLER RAQUEL LOPEZ M.D. Performed By: #### B BRIDGE PAINTER HELPER, BMP, PT, PTT, HS TROP, CBC, TSH3, CK #### [facility] [address] [place] [id number] [facility] Triiodothyronine (T3) [Mass/ volume] in Serum or PlasmaOrdered By: Jemal Jones on 03-06-2023 T3 [Mass/Vol] 1.29 ng/mL 0.87-1.[address] [facility] US carotid doppler BIon 02-11 US carotid doppler BI [facility] Main [place] [address] [place] [address] Ultrasound Report Signed Patient: Steven Harding MR#: [id number] 1 : 1940 Acct:[id number] Age/Sex: 83 / F ADM Date: 03/05/23 Loc: Room: [address] [place] [address] Type: ADM INOo Attending Dr: Chuck Chacon [...] Bethel Sabillon M.D.03/06/2023 2:21 PM Dictation Location: [facility] Tech: Marla Cottrell Transcribed By: OSCAR 03/06/23 1421 Dictated By: Bethel Sabillon MD 03/06/23 1419 Signed By: 03/06/[address] [facility] Activated partial thrombopla stin time (aPTT) in platelet poor plasma by coagulation aOrdered By: Monique Tierney on 03-05-2023 aPTT Coag (PPP) [Time] 25.4 s 25.1-36.5 [facility] Comment on above: A hematocrit value g reater than 55% may lead to inaccurate results in coagulation testing. Patients having hematocrit values >55% require a special collection tube for coagulation studies. Please contact the laboratory at [phone] for redraw instructions. Automated epithelial cells c ount in urine sediment (number/area)Ordered By: Jemal Jones on 03-05-2023 Epithelial cells Auto (Urine sed) [#/Area] 3-4 [HPF] 0-[address] [facility] Automated erythrocytes count in urine sediment (number/area)Ordered By: Jemal Jones on 03-05-2023 RBC Auto (Urine sed) [#/Area] None seen [HPF] 0-[address] [facility] Automated leukocytes count i n urine sediment (number/area)Ordered By: Jemal Velar on 03-05-2023 WBC Auto (Urine sed) [#/Area] 3-4 [HPF] 0-[address] [facility] Automated urine hyaline cast s count (number/volume)Ordered By: Jemal Daromar on 03-05-2023 Hyaline casts Auto (U) [#/Vol] None seen [LPF] 0-[address] [facility] B-Type Natriuretic Peptideon 03-05-2023 Natriuretic peptide B (Bld) [Mass/Vol] 42.0 pg/mL Normal 5-[address] [facility] Comment on above: Result Comment: PERF ORMED BY: [place] [address] PATHOLOGIST INTERLOCKING PAVEMENT INSTALLER RAQUEL LOPEZ M.D. Performed By: #### B BRIDGE PAINTER HELPER, BMP, PT, PTT, HS TROP, CBC, TSH3, CK #### [address] Basic Metabolic Panelon 02-11 Anion gap [Moles/Vol] 17.1 mmol/L High 6.0-15.0 [facility] Comment on above: Performed By: #### B BRIDGE PAINTER HELPER, BMP, PT, PTT, HS TROP, CBC, TSH3, CK #### [address] Calcium [Mass/Vol] 9.7 mg/dL Normal 8.6-10.3 [facility] Comment on above: Performed By: #### B BRIDGE PAINTER HELPER, BMP, PT, PTT, HS TROP, CBC, TSH3, CK #### [place] [address] [place] Chloride [Moles/Vol] 93 mmol/L Low 98-107 [facility] Comment on above: Performed By: #### B BRIDGE PAINTER HELPER, BMP, PT, PTT, HS TROP, CBC, TSH3, CK #### [place] [address] [place] CO2 [Moles/Vol] 19.4 mmol/L Low 21.0-31.0 [facility] Comment on above: Performed By: #### B BRIDGE PAINTER HELPER, BMP, PT, PTT, HS TROP, CBC, TSH3, CK #### [facility] [address] Creatinine [Mass/Vol] 0.84 mg/dL Normal 0.60-1.20 [facility] Comment on above: Performed By: #### B BRIDGE PAINTER HELPER, BMP, PT, PTT, HS TROP, CBC, TSH3, CK #### [facility] [address] Creatinine Clr Calc Pharmacy 46.72 [facility] Comment on above: Performed By: #### B BRIDGE PAINTER HELPER, BMP, PT, PTT, HS TROP, CBC, TSH3, CK #### [facility] [address] [place] [address] [place] GFR/1.73 sq M.predicted MDRD (S/P/Bld) [Vol rate/Area] mL/min/{1.73_m2} [facility] Comment on above: Performed By: #### B BRIDGE PAINTER HELPER, BMP, PT, PTT, HS TROP, CBC, TSH3, CK #### [facility] [address] Glucose [Mass/Vol] 85 mg/dL Normal 70-100 [facility] Comment on above: Result Comment: [place] Glucose Reference Range is dependent on time and content of last meal. Glucose of more than 200 mg/dL in a nonstressed, ambulatory subject supports the diagnosis of Diabetes Mellitus. ADA recommended reference range Performed By: #### B BRIDGE PAINTER HELPER, BMP, PT, PTT, HS TROP, CBC, TSH3, CK #### [facility] [address] Potassium [Moles/Vol] 4.5 mmol/L Normal 3.5-5.1 [facility] Comment on above: Performed By: #### B BRIDGE PAINTER HELPER, BMP, PT, PTT, HS TROP, CBC, TSH3, CK #### [facility] [address] Sodium [Moles/Vol] 125 mmol/L Low 136-145 [facility] Comment on above: Performed By: #### B BRIDGE PAINTER HELPER, BMP, PT, PTT, HS TROP, CBC, TSH3, CK #### [facility] [address] Urea nitrogen [Mass/Vol] 17 mg/dL Normal 7-[address] [facility] Comment on above: Performed By: #### B BRIDGE PAINTER HELPER, BMP, PT, PTT, HS TROP, CBC, TSH3, CK #### [facility] [address] Basophils Auto (Bld) [#/Vol] Ordered By: Monique Tierney on 03-05-2023 Basophils (Bld) [#/Vol] 0.1 10*3/uL 0.0-0.[address] [facility] Basophils/100 WBC Auto (Bld) Ordered By: Monique Tierney on 03-05-2023 Basophils/100 WBC (Bld) 0.5 % . [facility] Bilirubin Test strip Ql (U)O rdered By: Jemal Jones on 03-05-2023 Bilirubin Ql (U) Negative Negative [facility] CT angio neckon 03-05-2023 CT angio neck [facility] Main [place] [address] [place] [address] CT Scan Report Signed Patient: Steven Harding MR#: [id number] 1 : 1940 Acct:[id number] Age/Sex: 83 / F ADM Date: 03/05/23 Loc: ER Room: Type: [facility] ER Attending Dr: Copies to: Monique Tierney MD Ordering Provider: Monique Tierney MD Date of Service: 03/05/23 CT/CT angio neck: episodic dizziness, episode 2 wks ago face tinglin ([id number]) CT/CT angio head: episodic dizziness, episode 2 [...] Bethel Snyder M.D.03/05/2023 7:34 PM Dictation Location: [place] [address] Transcribed By: [facility] 03/05/231933 Dictated By: Bethel Snyder DO 03/05/231928 Signed By: 03/05/231933 [facility] CT head/brain wo conon 03-05 CT head/brain wo con [facility] [place] [address] CT Scan Report Signed Patient: Steven Harding MR#: [id number] 1 : 1940 Acct:[id number] Age/Sex: 83 / F ADM Date: 03/05/23 Loc: ER Room: Type: [facility] ER Attending Dr: Copies to: Monique [...] Bethel Snyder M.D.03/05/2023 7:29 PM Dictation Location: [place] [address] Transcribed By: [facility] 03/05/231928 Dictated By: Bethel Snyder DO 03/05/231927 Signed By: 03/05/23[address] [facility] Calcium [Mass/volume] in Ser um or PlasmaOrdered By: Monique Tierney on 03-05-2023 Calcium [Mass/Vol] 9.7 mg/dL 8.6-10.3 [facility] Carbon dioxide, total [Moles /volume] in Serum or PlasmaOrdered By: Monique Tierney on 03-05-2023 CO2 [Moles/Vol] 19.4 mmol/L 21.0-31.0 [facility] Chloride [Moles/volume] in S yamilex or PlasmaOrdered By: Monique Tierney on 03-05-2023 Chloride [Moles/Vol] 93 mmol/L 98-107 [facility] Color Auto (U)Ordered By: Sukhi Jones on 03-05-2023 Color (U) Yellow Yellow [facility] Complete Blood Count Auto Di ffon 03-05-2023 Basophils (Bld) [#/Vol] 0.1 10*3/uL Normal 0.0-0.[address] [facility] Comment on above: Result Comment: PERF ORMED BY: [facility] [address] [place] [address] PATHOLOGIST INTERLOCKING PAVEMENT INSTALLER JIANLAN SUN M.D. Performed By: #### B BRIDGE PAINTER HELPER, BMP, PT, PTT, HS TROP, CBC, TSH3, CK #### [address] Basophils/100 WBC (Bld) 0.5 % Normal . [facility] Comment on above: Performed By: #### B BRIDGE PAINTER HELPER, BMP, PT, PTT, HS TROP, CBC, TSH3, CK #### [address] Eosinophils (Bld) [#/Vol] 0.3 10*3/uL Normal 0.0-0.[address] [facility] Comment on above: Performed By: #### B BRIDGE PAINTER HELPER, BMP, PT, PTT, HS TROP, CBC, TSH3, CK #### [address] Eosinophils/100 WBC (Bld) 2.8 % Normal . [facility] Comment on above: Performed By: #### B BRIDGE PAINTER HELPER, BMP, PT, PTT, HS TROP, CBC, TSH3, CK #### [address] Erythrocyte distribution width (RBC) [Ratio] 12.8 % Normal 11.9-15.[address] [facility] Comment on above: Performed By: #### B BRIDGE PAINTER HELPER, BMP, PT, PTT, HS TROP, CBC, TSH3, CK #### [address] Hematocrit (Bld) [Volume fraction] 39.9 % Normal 34.0-46.[address] [facility] Comment on above: Performed By: #### B BRIDGE PAINTER HELPER, BMP, PT, PTT, HS TROP, CBC, TSH3, CK #### [address] Hemoglobin (Bld) [Mass/Vol] 13.6 g/dL Normal 11.8-15.[address] [facility] Comment on above: Performed By: #### B BRIDGE PAINTER HELPER, BMP, PT, PTT, HS TROP, CBC, TSH3, CK #### [address] Lymphocytes (Bld) [#/Vol] 1.7 10*3/uL Normal 1.00-4.[address] [facility] Comment on above: Performed By: #### B BRIDGE PAINTER HELPER, BMP, PT, PTT, HS TROP, CBC, TSH3, CK #### [address] Lymphocytes/100 WBC (Bld) 14.7 % Normal . [facility] Comment on above: Performed By: #### B BRIDGE PAINTER HELPER, BMP, PT, PTT, HS TROP, CBC, TSH3, CK #### [address] MCH (RBC) [Entitic mass] 31.3 pg Normal 24.7-34.[address] [facility] Comment on above: Performed By: #### B BRIDGE PAINTER HELPER, BMP, PT, PTT, HS TROP, CBC, TSH3, CK #### [address] MCV (RBC) [Entitic vol] 91.9 fL Normal 80-[address] [facility] Comment on above: Performed By: #### B BRIDGE PAINTER HELPER, BMP, PT, PTT, HS TROP, CBC, TSH3, CK #### [address] Mean Corpuscular HGB Conc 34.0 g/dL Normal 32.0-35.[address] [facility] Comment on above: Performed By: #### B BRIDGE PAINTER HELPER, BMP, PT, PTT, HS TROP, CBC, TSH3, CK #### [address] Monocytes (Bld) [#/Vol] 0.6 10*3/uL Normal 0.0-0.[address] [facility] Comment on above: Performed By: #### B BRIDGE PAINTER HELPER, BMP, PT, PTT, HS TROP, CBC, TSH3, CK #### [address] Monocytes/100 WBC (Bld) 18.39 % Normal 0.00-20.[address] [facility] Comment on above: Performed By: #### B BRIDGE PAINTER HELPER, BMP, PT, PTT, HS TROP, CBC, TSH3, CK #### [facility] [address] Monocytes/100 WBC (Bld) 5.4 % Normal . [facility] Comment on above: Performed By: #### B BRIDGE PAINTER HELPER, BMP, PT, PTT, HS TROP, CBC, TSH3, CK #### [facility] [address] Neutrophils (Bld) [#/Vol] 8.7 10*3/uL High 1.8-7.[address] [facility] Comment on above: Performed By: #### B BRIDGE PAINTER HELPER, BMP, PT, PTT, HS TROP, CBC, TSH3, CK #### [facility] [address] Neutrophils/100 WBC (Bld) 76.6 % Normal . [facility] Comment on above: Performed By: #### B BRIDGE PAINTER HELPER, BMP, PT, PTT, HS TROP, CBC, TSH3, CK #### [facility] [address] NRBC% 0.1 /100{WBC} Normal 0-0.[address] [facility] Comment on above: Performed By: #### B BRIDGE PAINTER HELPER, BMP, PT, PTT, HS TROP, CBC, TSH3, CK #### [address] Platelet mean volume (Bld) [Entitic vol] 7.5 fL Normal 6.3-10.[address] [facility] Comment on above: Performed By: #### B BRIDGE PAINTER HELPER, BMP, PT, PTT, HS TROP, CBC, TSH3, CK #### [facility] [address] Platelets (Bld) [#/Vol] 285 10*3/uL Normal 150-[address] [facility] Comment on above: Performed By: #### B BRIDGE PAINTER HELPER, BMP, PT, PTT, HS TROP, CBC, TSH3, CK #### [address] RBC (Bld) [#/Vol] 4.34 10*6/uL Normal 3.60-5.00 [facility] Comment on above: Performed By: #### B BRIDGE PAINTER HELPER, BMP, PT, PTT, HS TROP, CBC, TSH3, CK #### [address] WBC (Bld) [#/Vol] 11.4 10*3/uL Normal 3.8-11.6 [facility] Comment on above: Performed By: #### B BRIDGE PAINTER HELPER, BMP, PT, PTT, HS TROP, CBC, TSH3, CK #### [address] Creatine Kinaseon 03-05-2023 CK [Catalytic activity/Vol] 18 U/L Low [facility] Comment on above: Performed By: #### B BRIDGE PAINTER HELPER, BMP, PT, PTT, HS TROP, CBC, TSH3, CK #### [address] Creatine kinase [Enzymatic a ctivity/volume] in Serum or PlasmaOrdered By: Monique Tierney on 03-05-2023 CK [Catalytic activity/Vol] 18 U/L [facility] Creatinine [Mass/volume] in Serum or PlasmaOrdered By: Monique Tierney on 03-05-2023 Creatinine [Mass/Vol] 0.84 mg/dL 0.60-1.20 [facility] ECG 12 lead ECGon 03-05-2023 ECG 12 lead ECG [facility] Main [place] [address] [place] [address] Electrocardiograph Report Signed Patient: Steven Harding MR#: [id number] 1 : 1940 Acct:[id number] Age/Sex: 83 / F ADM Date: 03/05/23 Loc: Room: [address] [place] [address] Type: ADM INOo Attending Dr: Chuck Chacon MD Ordering Provider: Monique Tierney MD [...] fascicular block Confirmed by Hoang Mancia DO ([id number]) on 03/06/2023 8:08:36 PM Referred By: Electronically Signed By:Hoang Mancia DO Transcribed By: MUS Signed By Hoang Mancia DO [address] [facility] Eosinophils Auto (Bld) [#/Vo l]Ordered By: Monique Tierney on 03-05-2023 Eosinophils (Bld) [#/Vol] 0.3 10*3/uL 0.0-0.[address] [facility] Eosinophils/100 WBC Auto (Bl d)Ordered By: Monique Tierney on 03-05-2023 Eosinophils/100 WBC (Bld) 2.8 % . [facility] Erythrocyte distribution wid th Auto (RBC) [Ratio]Ordered By: Monique Tierney on 03-05-2023 Erythrocyte distribution width (RBC) [Ratio] 12.8 % 11.9-15.[address] [facility] Glucose [Mass/volume] in Ser um or PlasmaOrdered By: Monique Tierney on 03-05-2023 Glucose [Mass/Vol] 85 mg/dL 70-100 [facility] Comment on above: ADA recommended refe rence rangeRandom Glucose Reference Range is dependent on time and content of last meal. Glucose of more than 200 mg/dL in a nonstressed, ambulatory subject supports the diagnosis of Diabetes Mellitus. Hematocrit Auto (Bld) [Volum e fraction]Ordered By: Monique Tierney on 03-05-2023 Hematocrit (Bld) [Volume fraction] 39.9 % 34.0-46.[address] [facility] Hemoglobin [Mass/volume] in BloodOrdered By: Monique Tierney on 03-05-2023 Hemoglobin (Bld) [Mass/Vol] 13.6 g/dL 11.8-15.[address] [facility] INR in Platelet poor plasma by Coagulation assayOrdered By: Monique Tierney on 03-05-2023 INR Coag (PPP) [Relative time] 0.9 {INR} [facility] Comment on above: INR Therapeutic Rang [...] Ketones Auto test strip (U) [Mass/Vol]Ordered By: Jemla Jones on 03-05-2023 Ketones (U) [Mass/Vol] Trace Negative [facility] Leukocytes [#/volume] correc jazmyne for nucleated erythrocytes in Blood by Automated counOrdered By: Monique Tierney on 03-05-2023 WBC corrected for nucl RBC Auto (Bld) [#/Vol] 11.4 10*3/uL 3.8-11.[address] [facility] Lymphocytes Auto (Bld) [#/Vo l]Ordered By: Monique Tierney on 03-05-2023 Lymphocytes (Bld) [#/Vol] 1.7 10*3/uL 1.00-4.[address] [facility] Lymphocytes/100 WBC Auto (Bl d)Ordered By: Monique Tierney on 03-05-2023 Lymphocytes/100 WBC (Bld) 14.7 % . [facility] MCH Auto (RBC) [Entitic mass ]Ordered By: Monique Tierney on 03-05-2023 MCH (RBC) [Entitic mass] 31.3 pg 24.7-34.[address] [facility] MCHC Auto (RBC) [Mass/Vol]Or dered By: Monique Tierney on 03-05-2023 MCHC (RBC) [Mass/Vol] 34.0 g/dL 32.0-35.0 [facility] MCV Auto (RBC) [Entitic vol] Ordered By: Monqiue Tierney on 03-05-2023 MCV (RBC) [Entitic vol] 91.9 fL 80-[address] [facility] Monocyte distribution width [Entitic volume] in Blood by AutomatedOrdered By: Monique Tierney on 03-05-2023 Monocyte distribution width Auto (Bld) [Entitic vol] 18.39 % 0.00-20.[address] [facility] Monocytes Auto (Bld) [#/Vol] Ordered By: Monique Tierney on 03-05-2023 Monocytes (Bld) [#/Vol] 0.6 10*3/uL 0.0-0.[address] [facility] Monocytes/100 WBC Auto (Bld) Ordered By: Monique Tierney on 03-05-2023 Monocytes/100 WBC (Bld) 5.4 % . [facility] Natriuretic peptide B [Mass/ Vol]Ordered By: Monique Tierney on 03-05-2023 Natriuretic peptide B (Bld) [Mass/Vol] 42.0 pg/mL 5-[address] [facility] Neutrophils Auto (Bld) [#/Vo l]Ordered By: Monique Tierney on 03-05-2023 Neutrophils (Bld) [#/Vol] 8.7 10*3/uL 1.8-7.[address] [facility] Neutrophils/100 WBC Auto (Bl d)Ordered By: Monique Tierney on 03-05-2023 Neutrophils/100 WBC (Bld) 76.6 % . [facility] Nitrite Test strip Ql (U)Ord ered By: Jemal Jones on 03-05-2023 Nitrite Ql (U) Negative Negative [facility] No Panel InformationOrdered By: Monique Tierney on 03-05-2023 Estimated GFR (CKD-EPI) > 60.0 mL/Min [facility] Creatinine Clearance (Chem 46.[address] [facility] Nucleated erythrocytes [Pres ence] in Blood by Automated countOrdered By: Monique Tierney on 03-05-2023 Nucleated RBC Auto Ql (Bld) 0.1 /100{WBC} 0-0.[address] [facility] Partial Thromboplastin Timeo n 03-05-2023 aPTT Coag (Bld) [Time] 25.4 s Normal 25.1-36.5 [facility] Comment on above: Result Comment: A he matocrit value greater than 55% may lead to inaccurate results in coagulation testing. Patients having hematocrit values >55% require a special collection tube for coagulation studies. Please contact the laboratory at [phone] for redraw instructions. PERFORMED BY: [facility] [place] [place] [address] PATHOLOGIST INTERLOCKING PAVEMENT INSTALLER RAQUEL LOPEZ M.D. Performed By: #### B BRIDGE PAINTER HELPER, BMP, PT, PTT, HS TROP, CBC, TSH3, CK #### [facility] [address] [place] [id number] [facility] Platelet mean volume Auto (B ld) [Entitic vol]Ordered By: Monique Tierney on 03-05-2023 Platelet mean volume (Bld) [Entitic vol] 7.5 fL 6.3-10.[address] [facility] Platelets Auto (Bld) [#/Vol] Ordered By: Monique Tierney on 03-05-2023 Platelets (Bld) [#/Vol] 285 10*3/uL 150-[address] [facility] Potassium [Moles/volume] in Serum or PlasmaOrdered By: Monique Tierney on 03-05-2023 Potassium [Moles/Vol] 4.5 mmol/L 3.5-5.1 [facility] Protein Auto test strip (U) [Mass/Vol]Ordered By: Jemal Jonse on 03-05-2023 Protein (U) [Mass/Vol] Negative Negative [facility] Prothrombin Time INRon 03-05 INR Coag (PPP) [Relative time] 0.9 {INR} Normal [facility] Comment on above: Result Comment: INR [...] 3 - 4.5 Performed By: #### B BRIDGE PAINTER HELPER, BMP, PT, PTT, HS TROP, CBC, TSH3, CK #### [facility] [address] [place] [id number] [facility] PT Coag (PPP) [Time] 10.9 s Normal 9.0-12.9 [facility] Comment on above: Result Comment: A he matocrit value greater than 55% may lead to inaccurate results in coagulation testing. Patients having hematocrit values >55% require a special collection tube for coagulation studies. Please contact the laboratory at [phone] for redraw instructions. Performed By: #### B BRIDGE PAINTER HELPER, BMP, PT, PTT, HS TROP, CBC, TSH3, CK #### [facility] [address] [place] [id number] [facility] Prothrombin time (PT)Ordered By: Monique Tierney on 03-05-2023 PT Coag (PPP) [Time] 10.9 s 9.0-12.9 [facility] Comment on above: A hematocrit value g reater than 55% may lead to inaccurate results in coagulation testing. Patients having hematocrit values >55% require a special collection tube for coagulation studies. Please contact the laboratory at [phone] for redraw instructions. RBC Auto (Bld) [#/Vol]Ordere d By: Monique Tierney on 03-05-2023 RBC (Bld) [#/Vol] 4.34 10*6/uL 3.60-5.00 [facility] Serum or plasma anion gap de terminationOrdered By: Monique Tierney on 03-05-2023 Anion gap [Moles/Vol] 17.1 mmol/L 6.0-15.0 [facility] Sodium [Moles/volume] in Ser um or PlasmaOrdered By: Monique Tierney on 03-05-2023 Sodium [Moles/Vol] 125 mmol/L 136-145 [facility] Specific gravity Auto test s trip (U) [Rel density]Ordered By: Jemal Jones on 03-05-2023 Specific gravity (U) [Rel density] 1.015 1.001-1.[address] [facility] Thyroid Stimulating Hormoneo n 03-05-2023 TSH Qn 0.01 m[IU]/L Low 0.45-5.[address] [facility] Comment on above: Result Comment: PERF ORMED BY: [facility] [address] [place] [address] PATHOLOGIST INTERLOCKING PAVEMENT INSTALLER RAQUEL LOPEZ M.D. Performed By: #### B BRIDGE PAINTER HELPER, BMP, PT, PTT, HS TROP, CBC, TSH3, CK #### [facility] [address] [place] [id number] [facility] Thyrotropin [Units/volume] i n Serum or PlasmaOrdered By: Monique Tierney on 03-05-2023 TSH Qn 0.01 m[IU]/L 0.45-5.[address] [facility] Troponin I High Sensitivityo n 03-05-2023 Troponin I High Sensitivity 6.3 pg/mL Normal 0.0-15.[address] [facility] Comment on above: Result Comment: PERF ORMED BY: [facility] [address] [place] [address] PATHOLOGIST INTERLOCKING PAVEMENT INSTALLER RAQUEL LOPEZ M.D. Performed By: #### B BRIDGE PAINTER HELPER, BMP, PT, PTT, HS TROP, CBC, TSH3, CK #### [facility] [address] Troponin I.cardiac [Mass/vol ume] in Serum or Plasma by Detection limit <= 0.01 ng/Ordered By: Monique Tierney on 03-05-2023 Troponin I.cardiac DL <= 0.01 ng/mL [Mass/Vol] 6.3 pg/mL 0.0-15.[address] [facility] Urea nitrogen [Mass/volume] in Serum or PlasmaOrdered By: Monique Tierney on 03-05-2023 Urea nitrogen [Mass/Vol] 17 mg/dL 7-[address] [facility] Urine bacteria detection by automated methodOrdered By: Jemal Jones on 03-05-2023 Bacteria Auto Ql (U) 1+ None Seen [facility] Urine clarity by refractomet ry automatedOrdered By: Jemal Jones on 03-05-2023 Clarity Refractometry automated (U) Clear Clear [facility] Urine glucose measurement by automated test strip (mass/volume)Ordered By: Jemal Jones on 03-05-2023 Glucose Auto test strip (U) [Mass/Vol] Normal mg/dL Normal [facility] Urine hemoglobin detection b y automated test stripOrdered By: Jemal Jones on 03-05-2023 Hemoglobin Auto test strip Ql (U) Negative Negative [facility] Urine leukocyte esterase det ection by automated test stripOrdered By: Jemal Jones on 03-05-2023 Leukocyte esterase Auto test strip Ql (U) 1+ Negative [facility] Urine sediment renal epithel ial cell count by microscopy (number/high power field)Ordered By: Jemal Jones on 03-05-2023 Epithelial cells.renal LM.HPF (Urine sed) [#/Area] Rare [HPF] 0-[address] [facility] Urobilinogen Auto test strip (U) [Mass/Vol]Ordered By: Jemal Jones on 03-05-2023 Urobilinogen (U) [Mass/Vol] Normal mg/dL Normal [facility] WBC Auto (Bld) [#/Vol]Ordere d By: Monique Tierney on 03-05-2023 WBC (Bld) [#/Vol] 11.4 10*3/uL 3.8-11.6 [facility] XR chest 2V*on 03-05-2023 XR chest 2V* [facility] [place] [address] XRay Report Signed Patient: Steven Harding MR#: [id number] 1 : 1940 Acct:[id number] Age/Sex: 83 / F ADM Date: 03/05/23 Loc: ER Room: Type: [facility] ER Attending Dr: Copies to: Monique [...] Bethel Snyder M.D.03/05/2023 7:27 PM Dictation Location: [place] [address] Transcribed By: [facility] 03/05/231926 Dictated By: Bethel Snyder DO 03/05/231925 Signed By: 03/05/231926 [facility] pH Auto test strip (U)Ordere d By: Jemal Jones on 03-05-2023 pH (U) 6.0 [pH] 5.0-9.[address] [facility] Office Visit (Cardiology)on 02-16-2023 Follow-up visit [...] Weight Tips; Status:Complete - Retrospective Authorization; Done: [id number] Some eating tips that can help you lose weight.; Status:Complete - Retrospective Authorization; Done: [id number] PMH: Coronary artery disease involving false pass coronary artery of false pass heart without angina pectoris, Mixed hyperlipidemia Renew: Atorvastatin Calcium 80 MG Oral Tablet; TAKE 1 TABLET AT BEDTIME SocHx: Former smoker Tobacco Use Screening; Status:Complete; Done: [id number] Status post percutaneous transluminal coronary angioplasty, Two-vessel [...] FOR CHEST PAIN.CALL 911 IF PAIN PERSISTS. [employer]PER Thyroid 60 MG Oral TabletTAKE 1 TABLET [...] No alcoho (more content not included)... Normal [employer] Tobacco Screening.on 023 Fall risk assessment a) No falls within the last year [facility] [employer] 250 DO Work Phone: Tobacco use status CPHS b) No -[facility]ly [facility] [employer] 250 DO Work Phone: REVERSE T3on 10-17-2022 Reverse T3, Serum 18.8 ng/dL Normal 9.2-24.1 [facility] Comment on above: Performed By: #### R EVRT3 #### [facility] [address] [place] [address] Dr. Ellie Smith T3, TOTAL (TRIIODOTHYRONINE) on 10-06-2022 T3, TOTAL 137 ng/dL Normal 71-180 [facility] Comment on above: Performed By: #### P OCGLUC #### [facility] [address] [place] [address] [address] Ellie Smith FREE T3on 10-05-2022 FREE T3 3.03 pg/mlL Normal 2.18-3.98 [facility] Comment on above: Performed By: #### L ACT #### [facility] [address] [place] [address] [address] Ellie Smith FREE T4on 10-05-2022 Free T4 [Mass/Vol] 1.02 ng/dL Normal 0.76-1.46 [facility] Comment on above: Performed By: #### F T4 #### [facility] [address] [place] [address] Dr. Ellie Smith TSHon 10-05-2022 TSH 0.032 uIU/mL Critically low 0.358-3.74 0 [facility] Comment on above: Performed By: #### L ACT #### [facility] [address] [place], [place] [address] Dr. Ellie Smith Office Visit (Cardiology)on 08-24-2022 [...] Done: 24Aug2022 PMH: Coronary artery disease involving false pass coronary artery of false pass heart without angina pectoris Renew: Aspirin EC 81 MG Oral Tablet Delayed Release; TAKE 1 TABLET DAILY Renew: Clopidogrel Bisulfate 75 MG Oral Tablet; TAKE 1 TABLET BY MOUTH DAILY PMH: Coronary artery disease involving false pass coronary artery of false pass heart without angina pectoris, Hypertension, benign Renew: Losartan Potassium 100 MG Oral Tablet; TAKE 1 TABLET DAILY PMH: Coronary artery disease involving false pass coronary artery of false pass heart without angina pectoris, Mixed hyperlipidemia Renew: [...] FOR CHEST PAIN.CALL 911 IF PAIN PERSISTS. 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 Cardiovascular: no intermittent leg claudication and as noted in HPI. Respirat (more content not included)... Normal [employer] Tobacco Screening.on 023 Adult depression screening assessment No [facility] jayne 250 DO Work Phone: Fall risk assessment a) No falls within the last year [facility] [employer] 250 DO Work Phone: Tobacco use status CP b) No RecommindFormerly [facility] [employer] 250 DO Work Phone: GLYCOHEMOGLOBIN A1Con 2022 ADA RECOMMENDATION SEE BELOW Normal [facility] Comment on above: Result Comment: ADA RECOMMENDED LIMIT 4.0 - 6.0 ADA THERAPEUTIC TARGET < 7.0 ACTION SUGGESTED > 7.0 Performed By: #### A 1C #### [facility] [address] [place] [address] [address] Ellie Smith Glucose [Mass/Vol] 114 mg/dL Normal [facility] Comment on above: Performed By: #### A 1C #### [facility] [address] [place] [address] [address] Ellie Smith HbA1c (Bld) [Mass fraction] 5.6 % Normal 4.5-6.2 [facility] Comment on above: Performed By: #### A 1C #### [facility] [address] [place] [address] [address] Ellie Smith LIPID PROFILEon 08-15-2022 CHOL-HDL RATIO NORM SEE BELOW Normal [facility] Comment on above: Result Comment: 3.3 - 4.4 LOW RISK 4.4 - 7.1 AVERAGE RISK 7.1 - 11.0 MODERATE RISK >11.0 HIGH RISK Performed By: #### R EVRT3 #### [facility] [address] [place] [address] [address] Ellie Smith Cholesterol [Mass/Vol] 116 mg/dL Normal <=200 [facility] Comment on above: Performed By: #### R EVRT3 #### [facility] [address] [place] [address] [address] Ellie Smith Cholesterol in HDL [Mass/Vol] 60 mg/dL Normal 40-60 [facility] Comment on above: Performed By: #### R EVRT3 #### [facility] [address] [place] [address] [address] Ellie Smith Cholesterol in LDL [Mass/Vol] 46.0 mg/dL Normal [facility] Comment on above: Performed By: #### R EVRT3 #### [facility] [address] [place] [address] Dr. Ellie Smith Cholesterol.total/Chol esterol in HDL [Mass ratio] 1.9 {ratio} Normal [facility] Comment on above: Performed By: #### R EVRT3 #### [facility] [address] [place] [address] Dr. Ellie Smith HDL NORMAL > or = 60 mg/dl - LO W CARDIOVASCULAR RISK <40 mg/dl - HIGH CARDIOVASCULAR RISK Normal [facility] Comment on above: Performed By: #### R EVRT3 #### [facility] [address] [place] [address] Dr. Ellie Smith LDL CALC NORMAL SEE BELOW Normal [facility] Comment on above: Result Comment: <100 mg/dl OPTIMAL 100 - 129 mg/dl NEAR OR ABOVE OPTIMAL 130 - 159 mg/dl BORDERLINE HIGH 160 - 189 mg/dl HIGH >190 mg/dl VERY HIGH Performed By: #### R EVRT3 #### [facility] [address] [place] [address] Dr. Ellie Smith Triglyceride [Mass/Vol] 50 mg/dL Normal <=150 [facility] Comment on above: Performed By: #### R EVRT3 #### [facility] [address] [place] [address] Dr. Ellie Smith VLDL CALC 10.0 mg/dL Normal [facility] Comment on above: Performed By: #### R EVRT3 #### [facility] [address] [place] [address] Dr. Ellie Smith PROF 14(COMP METB)on 023 Albumin [Mass/Vol] 3.9 g/dL Normal 3.4-5.0 [facility] Comment on above: Performed By: #### R EVRT3 #### [facility] [address] [place] [address] Dr. Ellie Smith Albumin/Globulin [Mass ratio] 1.2 {ratio} Normal [facility] Comment on above: Performed By: #### R EVRT3 #### [facility] [address] [place] [address] Dr. Ellie Smith ALP [Catalytic activity/Vol] 56 U/L Normal 46-116 [facility] Comment on above: Performed By: #### R EVRT3 #### [facility] [address] [place] [address] Dr. Ellie Smith ALT [Catalytic activity/Vol] 27 U/L Normal 14-59 [facility] Comment on above: Performed By: #### R EVRT3 #### [facility] [address] [place] [address] Dr. Ellie Smith Anion gap [Moles/Vol] 14.1 mmol/L Normal [facility] Comment on above: Performed By: #### R EVRT3 #### [facility] [address] [place] [address] Dr. Ellie Smith AST [Catalytic activity/Vol] 18 U/L Normal 15-37 [facility] Comment on above: Performed By: #### R EVRT3 #### [facility] [address] [place] [address] Dr. Ellie Smith Bilirubin [Mass/Vol] 0.4 mg/dL Normal 0.2-1.0 [facility] Comment on above: Performed By: #### R EVRT3 #### [facility] [address] [place] [address] Dr. Ellie Smith Calcium [Mass/Vol] 9.2 mg/dL Normal 8.5-10.1 [facility] Comment on above: Performed By: #### R EVRT3 #### [facility] [address] [place] [address] [address] Ellie Smith Chloride [Moles/Vol] 106 mmol/L Normal 98-107 [facility] Comment on above: Performed By: #### R EVRT3 #### [facility] [address] [place] [address] Dr. Ellie Smith CO2 [Moles/Vol] 26.1 mmol/L Normal 21.0-32.0 [facility] Comment on above: Performed By: #### R EVRT3 #### [facility] [address] [place] [address] [address] Ellie Smith Creatinine [Mass/Vol] 0.68 mg/dL Normal 0.55-1.02 [facility] Comment on above: Performed By: #### R EVRT3 #### [facility] [address] [place] [address] Dr. Ellie Smith EGFR-AF URUGUAYAN >60 Normal >=60 [facility] Comment on above: Performed By: #### R EVRT3 #### [facility] [address] [place] [address] Dr. Ellie Smith EGFR-NON AF URUGUAYAN >60 Normal >=60 [facility] Comment on above: Performed By: #### R EVRT3 #### [facility] [address] [place] [address] Dr. Ellie Smith Globulin (S) [Mass/Vol] 3.2 g/dL Normal [facility] Comment on above: Performed By: #### R EVRT3 #### [facility] [address] [place] [address] Dr. Ellie Smith Glucose [Mass/Vol] 99 mg/dL Normal 74-106 [facility] Comment on above: Performed By: #### R EVRT3 #### [facility] [address] [place] [address] Dr. Ellie Smith Potassium [Moles/Vol] 4.2 mmol/L Normal 3.5-5.1 [facility] Comment on above: Performed By: #### R EVRT3 #### [facility] [address] [place] [address] Dr. Ellie Smith Protein [Mass/Vol] 7.1 g/dL Normal 6.4-8.2 [facility] Comment on above: Performed By: #### R EVRT3 #### [facility] [address] [place] [address] Dr. Ellie Smith Sodium [Moles/Vol] 142 mmol/L Normal 136-145 [facility] Comment on above: Performed By: #### R EVRT3 #### [facility] [address] [place] [address] Dr. Ellie Smith Urea nitrogen [Mass/Vol] 16.0 mg/dL Normal 7.0-18.0 [facility] Comment on above: Performed By: #### R EVRT3 #### [facility] [address] [place] [address] Dr. Ellie Smith Urea nitrogen/Creatinine [Mass ratio] 23.5 mg/mg Normal [facility] Comment on above: Performed By: #### R EVRT3 #### [facility] [address] [place] [address] Dr. Ellie Smith REVERSE T3on 04-15-2022 Reverse T3, Serum 15.4 ng/dL Normal 9.2-24.1 [facility] Comment on above: Result Comment: This test was developed and its performance characteristics determined by [employer]. It has not been cleared or approved by the Food and Drug Administration. Performed By: #### L ACT #### [facility] [address] [place] [address] Dr. Ellie Smith T3, TOTAL (TRIIODOTHYRONINE) on 04-13-2022 T3, TOTAL 144 ng/dL Normal 71-180 [facility] Comment on above: Performed By: #### A 1C #### [facility] [address] [place] [address] Dr. Ellie Smith FREE T3on 04-12-2022 FREE T3 2.93 pg/mlL Normal 2.18-3.98 [facility] Comment on above: Performed By: #### T SH, FT3 #### [facility] [address] [place] [address] Dr. Ellie Smith FREE T4on 04-12-2022 Free T4 [Mass/Vol] 0.89 ng/dL Normal 0.76-1.46 [facility] Comment on above: Performed By: #### R EVRT3 #### [facility] [address] [place] [address] Dr. Ellie Smith TSHon 04-12-2022 TSH 0.116 uIU/mL Critically low 0.358-3.74 0 [facility] Comment on above: Performed By: #### T SH, FT3 #### [facility] [address] [place] [address] [address] Ellie Smith LIPID PROFILEon 03-29-2022 CHOL-HDL RATIO NORM SEE BELOW Normal [facility] Comment on above: Result Comment: 3.3 - 4.4 LOW RISK 4.4 - 7.1 AVERAGE RISK 7.1 - 11.0 MODERATE RISK >11.0 HIGH RISK Performed By: #### A 1C #### [facility] [address] [place] [address] Dr. Ellie Smith Cholesterol [Mass/Vol] 102 mg/dL Normal <=200 [facility] Comment on above: Performed By: #### A 1C #### [facility] [address] [place] [address] Dr. Ellie Smith Cholesterol in HDL [Mass/Vol] 56 mg/dL Normal 40-60 [facility] Comment on above: Performed By: #### A 1C #### [facility] [address] [place] [address] Dr. Ellie Smith Cholesterol in LDL [Mass/Vol] 36.8 mg/dL Normal [facility] Comment on above: Performed By: #### A 1C #### [facility] [address] [place] [address] Dr. Ellie Smith Cholesterol.total/Chol esterol in HDL [Mass ratio] 1.8 {ratio} Normal [facility] Comment on above: Performed By: #### A 1C #### [facility] [address] [place] [address] Dr. Ellie Smith HDL NORMAL > or = 60 mg/dl - LO W CARDIOVASCULAR RISK <40 mg/dl - HIGH CARDIOVASCULAR RISK Normal [facility] Comment on above: Performed By: #### A 1C #### [facility] [address] [place] [address] Dr. Ellie Smith LDL CALC NORMAL SEE BELOW Normal [facility] Comment on above: Result Comment: <100 mg/dl OPTIMAL 100 - 129 mg/dl NEAR OR ABOVE OPTIMAL 130 - 159 mg/dl BORDERLINE HIGH 160 - 189 mg/dl HIGH >190 mg/dl VERY HIGH Performed By: #### A 1C #### [facility] [address] [place] [address] [address] Ellie Smith Triglyceride [Mass/Vol] 46 mg/dL Normal <=150 [facility] Comment on above: Performed By: #### A 1C #### [facility] [address] [place] [address] Dr. Ellie Smith VLDL CALC 9.2 mg/dL Normal [facility] Comment on above: Performed By: #### A 1C #### [facility] [address] [place] [address] [address] Ellie Smith SGOTon 03-29-2022 AST [Catalytic activity/Vol] 17 U/L Normal 15-37 [facility] Comment on above: Performed By: #### A 1C #### [facility] [address] [place] [address] Dr. Ellie Smith SGPTon 03-29-2022 ALT [Catalytic activity/Vol] 30 U/L Normal 14-59 [facility] Comment on above: Performed By: #### A 1C #### [facility] [address] [place] [address] Dr. 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 Hooks Jan 18, 2022: dCX PCI/[place] 2.5/34mm, 2.75/8mm mRCA PCI/[place] 3.0/12 AND 3.5/30mm Type B dissection Feb 03, 2022 Staged LAD PCI/[place] 2.25/26mm Diag2 provisional PTCA Daily activity 4 [...] Status:Complete; Done: 17Mar2022 Coronary artery disease involving false pass coronary artery of false pass heart without angina pectoris, Echocardiogram abnormal Disability Placard; Status:Complete; Done: [id number] 03:53PM SocHx: Former smoker Tobacco Use Screening; Status:Complete; Done: [id number] Patient Instructions Please bring all medicines, vitamins, [...] FOR CHES (more content not included)... Normal [place] Tobacco Screening.on 022 Adult depression screening assessment No -[facility] 600 DO Work Phone: Fall risk assessment a) No falls within the last year [place] Juan andujar 600 DO Work Phone: [phone] Tobacco use status CP b) No SRINATHFormerly [facility] Juan andujar 600 DO Work Phone: PHQ-2 VITALSon 02-15-2022 Adult depression screening assessment Yes [facility] 250 DO Work Phone: Adult depression screening assessment [place] [facility] [facility] 250 DO Work Phone: [phone] Fall risk assessment a) No falls within the last year [place] Negar godoy 250 DO Work Phone: Tobacco use status CP b) No [facility] 250 DO Work Phone: [phone] PHQ-2 VITALS 0-Not at all SRINATHFormerly [facility] 250 DO Work Phone: [phone] PHQ-2 VITALS 3-Nearly every day [facility] 250 DO Work Phone: PHQ-2 VITALS 1-Several days [place] [facility] 250 DO Work Phone: PHQ-2 VITALS Very Difficult SRINATHFormerly [facility] Negar godoy 250 DO Work Phone: Activated partial thrombopla stin time (aPTT) in platelet poor plasma by coagulation aOrdered By: Diony Hooks on 02-03-2022 aPTT Coag (PPP) [Time] 31.4 s 25.1-36.5 [facility] Basophils Auto (Bld) [#/Vol] Ordered By: Diony Hooks on 02-03-2022 Basophils (Bld) [#/Vol] 0.1 10*3/uL 0.0-0.[address] [facility] Basophils/100 WBC Auto (Bld) Ordered By: Diony Hooks on 02-03-2022 Basophils/100 WBC (Bld) 0.6 % . [facility] Blood hemoglobin measurement (mass/volume)Ordered By: Diony Hooks on 02-03-2022 Hemoglobin (Bld) [Mass/Vol] 14.3 g/dL 11.8-15.[address] [facility] Blood leukocytes automated c ount (number/volume)Ordered By: Diony Hooks on 02-03-2022 WBC (Bld) [#/Vol] 12.0 10*3/uL 4.5-11.0 [facility] Eosinophils Auto (Bld) [#/Vo l]Ordered By: Diony Hooks on 02-03-2022 Eosinophils (Bld) [#/Vol] 0.4 10*3/uL 0.0-0.[address] [facility] Eosinophils/100 WBC Auto (Bl d)Ordered By: Diony Hooks on 02-03-2022 Eosinophils/100 WBC (Bld) 3.4 % . [facility] Erythrocyte distribution wid th Auto (RBC) [Ratio]Ordered By: Diony Hooks on 02-03-2022 Erythrocyte distribution width (RBC) [Ratio] 14.4 % 11.9-15.[address] [facility] Hematocrit Auto (Bld) [Volum e fraction]Ordered By: Diony Hooks on 02-03-2022 Hematocrit (Bld) [Volume fraction] 42.4 % 34.0-46.[address] [facility] - CoagulationOrde red By: Diony Hooks on 02-03-2022 PT Coag (PPP) [Time] 10.9 s 9.0-12.9 [facility] - Hematology and Cell countsOrdered By: Diony Hooks on 02-03-2022 Nucleated RBC/100 WBC (Bld) [Ratio] 0.0 % 0-0.[address] [facility] Lymphocytes Auto (Bld) [#/Vo l]Ordered By: Diony Hooks on 02-03-2022 Lymphocytes (Bld) [#/Vol] 2.1 10*3/uL 1.00-4.[address] [facility] Lymphocytes/100 WBC Auto (Bl d)Ordered By: Diony Hooks on 02-03-2022 Lymphocytes/100 WBC (Bld) 17.5 % . [facility] MCH Auto (RBC) [Entitic mass ]Ordered By: Diony Hooks on 02-03-2022 MCH (RBC) [Entitic mass] 31.5 pg 24.7-34.[address] [facility] MCHC Auto (RBC) [Mass/Vol]Or dered By: Diony Hooks on 02-03-2022 MCHC (RBC) [Mass/Vol] 33.8 g/dL 32.0-35.0 [facility] MCV Auto (RBC) [Entitic vol] Ordered By: Diony Hooks on 02-03-2022 MCV (RBC) [Entitic vol] 93.2 fL 80-[address] [facility] Monocytes Auto (Bld) [#/Vol] Ordered By: Diony Hooks on 02-03-2022 Monocytes (Bld) [#/Vol] 0.5 10*3/uL 0.0-0.[address] [facility] Monocytes/100 WBC Auto (Bld) Ordered By: Diony Hooks on 02-03-2022 Monocytes/100 WBC (Bld) 4.4 % . [facility] Neutrophils Auto (Bld) [#/Vo l]Ordered By: Diony Hokos on 02-03-2022 Neutrophils (Bld) [#/Vol] 8.9 10*3/uL 1.8-7.[address] [facility] Neutrophils/100 WBC Auto (Bl d)Ordered By: Diony Hooks on 02-03-2022 Neutrophils/100 WBC (Bld) 74.1 % . [facility] Platelet mean volume Auto (B ld) [Entitic vol]Ordered By: Diony Hooks on 02-03-2022 Platelet mean volume (Bld) [Entitic vol] 7.5 fL 6.3-10.[address] [facility] Platelet poor plasma interna tional normalized ratio (INR) by coagulation assay (relatOrdered By: Diony Hooks on 02-03-2022 INR Coag (PPP) [Relative time] 1.0 {INR} [facility] Comment on above: INR Therapeutic Rang [...] 02-03-2022 Platelets (Bld) [#/Vol] 337 10*3/uL 150-[address] [facility] RBC Auto (Bld) [#/Vol]Ordere d By: Diony Hooks on 02-03-2022 RBC (Bld) [#/Vol] 4.56 10*6/uL 3.60-5.00 [facility] COVID-19 SOFIAOrdered By: [facility] he[facility] Jes[facility] on 02-01-2022 SARS-CoV+SARS-CoV-2 (COVID-19) Ag IA.rapid Ql (Resp) Negative Negative [facility] Comment on above: This is a duplicate [facility] SARS Antigen (JERRY) result to be used for statistical tracking purpose only. Creatinine and Glomerular fi ltration rate.predicted panel (S/P/Bld)Ordered By: Diony Hooks on 02-01-2022 Creatinine [Mass/Vol] 0.85 mg/dL 0.44-1.03 [facility] Estimated glomerular filtrat ion rate (GFR) non- AmericanOrdered By: Diony Hooks on 02-01-2022 GFR/1.73 sq M.predicted among non-blacks MDRD (S/P/Bld) [Vol rate/Area] > 60 mL/Min [facility] No Panel InformationOrdered By: Diony Hooks on 02-01-2022 Estimated GFR () > 60 mL/Min [facility] Comment on above: GFR estimated refere nce range: According to KDOQI guidelines, <60 ml/min/1.73m2 is sufficient to diagnose a patient with chronic kidney disease. Pharmacy Creatinine Clearance (Chem N/A [facility] SARS Antigen (LFIA) [facility] Serum or plasma calcium norma urement (mass/volume)Ordered By: Diony Hooks on 02-01-2022 Calcium [Mass/Vol] 9.7 mg/dL 8.2-10.2 [facility] Serum or plasma chloride tam surement (moles/volume)Ordered By: Diony Hooks on 02-01-2022 Chloride [Moles/Vol] 97 mmol/L 95-114 [facility] Serum or plasma glucose norma urement (mass/volume)Ordered By: Diony Hooks on 02-01-2022 Glucose [Mass/Vol] 86 mg/dL 70-100 [facility] Comment on above: ADA recommended refe rence range Random Glucose Reference Range is dependent on time and content of last meal. Glucose of more than 200 mg/dL in a nonstressed, ambulatory subject supports the diagnosis of Diabetes Mellitus. Serum or plasma potassium me asurement (moles/volume)Ordered By: Diony Hooks on 02-01-2022 Potassium [Moles/Vol] 4.7 mmol/L 3.5-5.1 [facility] Serum or plasma sodium measu rement (moles/volume)Ordered By: Diony Hooks on 02-01-2022 Sodium [Moles/Vol] 132 mmol/L 136-146 [facility] Serum or plasma total carbon dioxide measurement (moles/volume)Ordered By: Diony Hooks on 02-01-2022 CO2 [Moles/Vol] 26.0 mmol/L 22.0-30.0 [facility] Serum or plasma urea nitroge n measurement (mass/volume)Ordered By: Diony Hooks on 02-01-2022 Urea nitrogen [Mass/Vol] 10 mg/dL 03-[address] [facility] BNPon 01-28-2022 Natriuretic peptide B (Bld) [Mass/Vol] 945.0 pg/mL Normal <=1,800.0 [facility] Comment on above: Performed By: #### R EVRT3 #### [facility] [address] [address] [address] Ellie Smith CARDIAC RAQUEL ADMITon 022 CK [Catalytic activity/Vol] 122 U/L Normal 26-192 [facility] Comment on above: Performed By: #### R EVRT3 #### [facility] [address] [address] [address] Ellie Smith CK.MB [Mass/Vol] 0.65 ng/mL Normal <=3.60 [facility] Comment on above: Performed By: #### R EVRT3 #### [facility] [address] [address] [address] Ellie Smith HSTROP 63.5 pg/mL Critically high 4.0-51.3 [facility] Comment on above: Result Comment: CUT- OFF POINTS HAVE BEEN ESTABLISHED BASED ON THE FOURTH UNIVERSAL DEFINITIONS OF MYOCARDIAL INFARCTION. THE UPPER REFERENCE LIMIT (URL) OF TROPONIN, DEFINED THE 99TH PERCENTILE OF cTnI DISTRIBUTION IN A REFERENCE POPULATION, HAS BEEN CONFIRMED THE DECISION THRESHOLD FOR [place] DIAGNOSIS. Performed By: #### R EVRT3 #### [facility] [address] [place] [address] Dr. Ellie Smith MATEO 26 ng/mL Normal 9-82 [facility] Comment on above: Performed By: #### R EVRT3 #### [facility] [address] [place] [address] Dr. Ellie Smith CBC AUTO DIFFon 01-28-2022 BASO # 0.1 103/ul Normal 0.0-0.1 [facility] Comment on above: Performed By: #### L ACT #### [facility] [address] [place] [address] Dr. Ellie Smith Basophils/100 WBC (Bld) 0.6 % Normal 0.2-2.0 [facility] Comment on above: Performed By: #### L ACT #### [facility] [address] [place] [address] Dr. Ellie Smith EO # 0.4 103/ul Normal 0.0-0.7 [facility] Comment on above: Performed By: #### L ACT #### [facility] [address] [place] [address] Dr. Ellie Smith Eosinophils/100 WBC (Bld) 4.4 % Normal 0.9-7.0 [facility] Comment on above: Performed By: #### L ACT #### [facility] [address] [place] [address] Dr. Ellie Smith Erythrocyte distribution width (RBC) [Ratio] 13.7 % Normal 11.0-15.0 [facility] Comment on above: Performed By: #### L ACT #### [facility] [address] [place] [address] Dr. Ellie Smith Hematocrit (Bld) [Volume fraction] 35.8 % Critically low 36.0-48.0 [facility] Comment on above: Performed By: #### L ACT #### [facility] [address] [place] [address] Dr. Ellie Smith Hemoglobin (Bld) [Mass/Vol] 11.9 g/dL Critically low 12.0-16.0 [facility] Comment on above: Performed By: #### L ACT #### [facility] [address] [place] [address] Dr. Ellie Smith IG # 0.03 10e3/ul Normal 0.00-0.03 [facility] Comment on above: Performed By: #### L ACT #### [facility] [address] [place] [address] Dr. Ellie Smith IG % 0.4 % Normal 0.0-0.5 [facility] Comment on above: Performed By: #### L ACT #### [facility] [address] [place] [address] Dr. Ellie Smith LYMPH # 1.7 103/ul Normal 1.2-3.8 [facility] Comment on above: Performed By: #### L ACT #### [facility] [address] [place] [address] Dr. Ellie Smith Lymphocytes/100 WBC (Bld) 19.6 % Critically low 20.5-60.0 [facility] Comment on above: Performed By: #### L ACT #### [facility] [address] [place] [address] Dr. Ellie Smith MANUAL DIFF REQ NO Normal [facility] Comment on above: Performed By: #### L ACT #### [facility] [address] [place] [address] Dr. Ellie Smith MCH (RBC) [Entitic mass] 31.4 pg Normal 26.7-34.0 [facility] Comment on above: Performed By: #### L ACT #### [facility] [address] [place] [address] Dr. Ellie Smith MCHC (RBC) [Mass/Vol] 33.2 g/dL Normal 29.9-35.2 [facility] Comment on above: Performed By: #### L ACT #### [facility] [address] [address] [address] Ellie Smith MCV (RBC) [Entitic vol] 94.5 fL Normal 81.0-99.0 [facility] Comment on above: Performed By: #### L ACT #### [facility] [address] [address] [address] Ellie Smith MONO # 0.5 103/ul Normal 0.3-0.8 [facility] Comment on above: Performed By: #### L ACT #### [facility] [address] [address] [address] Ellie Smith Monocytes/100 WBC (Bld) 5.4 % Normal 1.7-12.0 [facility] Comment on above: Performed By: #### L ACT #### [facility] [address] [address] [address] Ellie Smith NEUT # 6.0 103/ul Normal 1.4-6.5 [facility] Comment on above: Performed By: #### L ACT #### [facility] [address] [address] [address] Ellie Smith Neutrophils/100 WBC (Bld) 69.6 % Normal 43.0-75.0 [facility] Comment on above: Performed By: #### L ACT #### [facility] [address] [address] [address] Ellie Smith Platelet mean volume (Bld) [Entitic vol] 9.5 fL Normal 9.5-13.5 [facility] Comment on above: Performed By: #### L ACT #### [facility] [address] [address] [address] Ellie Smith PLT 252 103/ul Normal 150-450 [facility] Comment on above: Performed By: #### L ACT #### [facility] [address] [address] [address] Ellie Smith RBC 3.79 106/ul Critically low 4.20-5.40 [facility] Comment on above: Performed By: #### L ACT #### [facility] [address] [place] [address] Dr. Ellie Smith WBC 8.6 103/ul Normal 4.0-11.0 [facility] Comment on above: Performed By: #### L ACT #### [facility] [address] [place] [address] Dr. Ellie Smith POINT OF CARE GLUCOSEon 01-10 Glucose [Mass/Vol] 93 mg/dL Normal 74-106 [facility] Comment on above: Performed By: #### A 1C #### [facility] [address] [place] [address] Dr. Ellie Smith PROF 14(COMP METB)on 022 Albumin [Mass/Vol] 3.2 g/dL Critically low 3.4-5.0 [facility] Comment on above: Performed By: #### R EVRT3 #### [facility] [address] [place] [address] Dr. Ellie Smith Albumin/Globulin [Mass ratio] 1.1 {ratio} Normal [facility] Comment on above: Performed By: #### R EVRT3 #### [facility] [address] [place] [address] Dr. Ellie Smith ALP [Catalytic activity/Vol] 52 U/L Normal 46-116 [facility] Comment on above: Performed By: #### R EVRT3 #### [facility] [address] [place] [address] Dr. Ellie Smith ALT [Catalytic activity/Vol] 52 U/L Normal 14-59 [facility] Comment on above: Performed By: #### R EVRT3 #### [facility] [address] [place] [address] Dr. Ellie Smith Anion gap [Moles/Vol] 9.7 mmol/L Normal [facility] Comment on above: Performed By: #### R EVRT3 #### [facility] [address] [place] [address] Dr. Ellie Smith AST [Catalytic activity/Vol] 22 U/L Normal 15-37 [facility] Comment on above: Performed By: #### R EVRT3 #### [facility] [address] [address] [address] Ellie Smith Bilirubin [Mass/Vol] 0.3 mg/dL Normal 0.2-1.0 [facility] Comment on above: Performed By: #### R EVRT3 #### [facility] [address] [place] [address] Dr. Ellie Smith Calcium [Mass/Vol] 8.4 mg/dL Critically low 8.5-10.1 [facility] Comment on above: Performed By: #### R EVRT3 #### [facility] [address] [address] [address] Ellie Smith Chloride [Moles/Vol] 104 mmol/L Normal 98-107 [facility] Comment on above: Performed By: #### R EVRT3 #### [facility] [address] [place] [address] Dr. Ellie Smith CO2 [Moles/Vol] 25.5 mmol/L Normal 21.0-32.0 [facility] Comment on above: Performed By: #### R EVRT3 #### [facility] [address] [place] [address] Dr. Ellie Smith Creatinine [Mass/Vol] 0.71 mg/dL Normal 0.55-1.02 [facility] Comment on above: Performed By: #### R EVRT3 #### [facility] [address] [place] [address] Dr. Ellie Smith EGFR-AF URUGUAYAN >60 Normal >=60 [facility] Comment on above: Performed By: #### R EVRT3 #### [facility] [address] [address] [address] Ellie Smith EGFR-NON AF URUGUAYAN >60 Normal >=60 [facility] Comment on above: Performed By: #### R EVRT3 #### [facility] [address] [place] [address] Dr. Ellie Smith Globulin (S) [Mass/Vol] 2.9 g/dL Normal [facility] Comment on above: Performed By: #### R EVRT3 #### [facility] [address] [address] [address] Ellie Smith Glucose [Mass/Vol] 102 mg/dL Normal 74-106 [facility] Comment on above: Performed By: #### R EVRT3 #### [facility] [address] [place] [address] Dr. Ellie Smith Potassium [Moles/Vol] 4.2 mmol/L Normal 3.5-5.1 [facility] Comment on above: Performed By: #### R EVRT3 #### [facility] [address] [place] [address] Dr. Ellie Smith Protein [Mass/Vol] 6.1 g/dL Critically low 6.4-8.2 [facility] Comment on above: Performed By: #### R EVRT3 #### [facility] [address] [place] [address] Dr. Ellie Smith Sodium [Moles/Vol] 135 mmol/L Critically low 136-145 [facility] Comment on above: Performed By: #### R EVRT3 #### [facility] [address] [place] [address] Dr. Ellie Smith Urea nitrogen [Mass/Vol] 11.0 mg/dL Normal 7.0-18.0 [facility] Comment on above: Performed By: #### R EVRT3 #### [facility] [address] [place] [address] Dr. Ellie Smith Urea nitrogen/Creatinine [Mass ratio] 15.5 mg/mg Normal [facility] Comment on above: Performed By: #### R EVRT3 #### [facility] [address] [place] [address] Dr. Ellie Smith CARDIAC RAQUEL 3-6on 2 CK [Catalytic activity/Vol] 192 U/L Normal 26-192 [facility] Comment on above: Performed By: #### L ACT #### [facility] [address] [place] [address] Dr. Ellie Smith CK.MB [Mass/Vol] 0.70 ng/mL Normal <=3.60 [facility] Comment on above: Performed By: #### L ACT #### [facility] [address] [address] [address] Ellie Smith HSTROP 88.8 pg/mL Critically high 4.0-51.3 [facility] Comment on above: Result Comment: CUT- OFF POINTS HAVE BEEN ESTABLISHED BASED ON THE FOURTH UNIVERSAL DEFINITIONS OF MYOCARDIAL INFARCTION. THE UPPER REFERENCE LIMIT (URL) OF TROPONIN, DEFINED THE 99TH PERCENTILE OF cTnI DISTRIBUTION IN A REFERENCE POPULATION, HAS BEEN CONFIRMED THE DECISION THRESHOLD FOR [place] DIAGNOSIS. Performed By: #### L ACT #### [facility] [address] [address] [address] Ellie Smith CK [Catalytic activity/Vol] 213 U/L Critically high 26-192 [facility] Comment on above: Performed By: #### P OCGLUC #### [facility] [address] [place] [address] Dr. Ellie Smith CK.MB [Mass/Vol] 0.90 ng/mL Normal <=3.60 [facility] Comment on above: Performed By: #### P OCGLUC #### [facility] [address] [address] [address] Ellie Smith HSTROP 108.1 pg/mL Critically high 4.0-51.3 [facility] Comment on above: Result Comment: CUT- OFF POINTS HAVE BEEN ESTABLISHED BASED ON THE FOURTH UNIVERSAL DEFINITIONS OF MYOCARDIAL INFARCTION. THE UPPER REFERENCE LIMIT (URL) OF TROPONIN, DEFINED THE 99TH PERCENTILE OF cTnI DISTRIBUTION IN A REFERENCE POPULATION, HAS BEEN CONFIRMED THE DECISION THRESHOLD FOR [place] DIAGNOSIS. repeated Performed By: #### P OCGLUC #### [facility] [address] [address] [address] Ellie Smith CBC AUTO DIFFon 01-27-2022 BASO # 0.1 103/ul Normal 0.0-0.1 [facility] Comment on above: Performed By: #### P OCGLUC #### [facility] [address] [place] [address] Dr. Ellie Smith Basophils/100 WBC (Bld) 0.5 % Normal 0.2-2.0 [facility] Comment on above: Performed By: #### P OCGLUC #### [facility] [address] [address] [address] Ellie Smith EO # 0.4 103/ul Normal 0.0-0.7 [facility] Comment on above: Performed By: #### P OCGLUC #### [facility] [address] [address] [address] Ellie Smith Eosinophils/100 WBC (Bld) 3.2 % Normal 0.9-7.0 [facility] Comment on above: Performed By: #### P OCGLUC #### [facility] [address] [address] [address] Ellie Smith Erythrocyte distribution width (RBC) [Ratio] 13.7 % Normal 11.0-15.0 [facility] Comment on above: Performed By: #### P OCGLUC #### [facility] [address] [place] [address] Dr. Ellie Smith Hematocrit (Bld) [Volume fraction] 40.5 % Normal 36.0-48.0 [facility] Comment on above: Performed By: #### P OCGLUC #### [facility] [address] [place] [address] Dr. Ellie Smith Hemoglobin (Bld) [Mass/Vol] 13.4 g/dL Normal 12.0-16.0 [facility] Comment on above: Performed By: #### P OCGLUC #### [facility] [address] [place] [address] Dr. Ellie Smith IG # 0.04 10e3/ul Critically high 0.00-0.03 [facility] Comment on above: Performed By: #### P OCGLUC #### [facility] [address] [address] [address] Ellie Smith IG % 0.3 % Normal 0.0-0.5 [facility] Comment on above: Performed By: #### P OCGLUC #### [facility] [address] [place] [address] Dr. Ellie Smith LYMPH # 2.4 103/ul Normal 1.2-3.8 [facility] Comment on above: Performed By: #### P OCGLUC #### [facility] [address] [address] [address] Ellie Smith Lymphocytes/100 WBC (Bld) 18.6 % Critically low 20.5-60.0 [facility] Comment on above: Performed By: #### P OCGLUC #### [facility] [address] [address] [address] Ellie Smith MANUAL DIFF REQ NO Normal [facility] Comment on above: Performed By: #### P OCGLUC #### [facility] [address] [address] [address] Ellie Smith MCH (RBC) [Entitic mass] 31.0 pg Normal 26.7-34.0 [facility] Comment on above: Performed By: #### P OCGLUC #### [facility] [address] [place] [address] Dr. Ellie Smith MCHC (RBC) [Mass/Vol] 33.1 g/dL Normal 29.9-35.2 [facility] Comment on above: Performed By: #### P OCGLUC #### [facility] [address] [place] [address] Dr. Ellie Smith MCV (RBC) [Entitic vol] 93.8 fL Normal 81.0-99.0 [facility] Comment on above: Performed By: #### P OCGLUC #### [facility] [address] [place] [address] Dr. Ellie Smith MONO # 0.7 103/ul Normal 0.3-0.8 [facility] Comment on above: Performed By: #### P OCGLUC #### [facility] [address] [place] [address] Dr. Ellie Smith Monocytes/100 WBC (Bld) 5.5 % Normal 1.7-12.0 [facility] Comment on above: Performed By: #### P OCGLUC #### [facility] [address] [place] [address] Dr. Ellie Smith NEUT # 9.1 103/ul Critically high 1.4-6.5 [facility] Comment on above: Performed By: #### P OCGLUC #### [facility] [address] [address] [address] Ellie Smith Neutrophils/100 WBC (Bld) 71.9 % Normal 43.0-75.0 [facility] Comment on above: Performed By: #### P OCGLUC #### [facility] [address] [address] [address] Ellie Smith Platelet mean volume (Bld) [Entitic vol] 9.6 fL Normal 9.5-13.5 [facility] Comment on above: Performed By: #### P OCGLUC #### [facility] [address] [address] [address] Ellie Smith PLT 307 103/ul Normal 150-450 [facility] Comment on above: Performed By: #### P OCGLUC #### [facility] [address] [address] [address] Ellie Smith RBC 4.32 106/ul Normal 4.20-5.40 [facility] Comment on above: Performed By: #### P OCGLUC #### [facility] [address] [address] [address] Ellie Smith WBC 12.6 103/ul Critically high 4.0-11.0 [facility] Comment on above: Performed By: #### P OCGLUC #### [facility] [address] [address] [address] ABD/PELVIS WO CONon [...] by: JONA ORLANDO Date: 2022-01-27 02:44 Normal [facility] CTA CHEST WO W CONon 022 [...] JONA ORLANDO Date: 2022-01-27 03:46 Normal [facility] Covid-19 PCR (CVDTB)on 01-10 SARS-CoV-2 (COVID-19) RNA MEI+probe Ql (Unsp spec) Not detected Normal NOT DETECTED [facility] Comment on above: Result Comment: When diagnostic [...] for this test is supported by the [employer]'s declaration that [...] used). Performed By: #### R EVRT3 #### [facility] [address] [place] [address] Dr. Ellie Smith D-DIMERon 01-27-2022 D-DIMER 0.71 mg/L FEU Critically high <=0.59 [facility] Comment on above: Performed By: #### L ACT #### [facility] [address] [address] [address] Ellie Smith D-DIMER COMMENTS SEE BELOW Normal [facility] Comment on above: Result Comment: Incr eases [...] hospitalization. Performed By: #### L ACT #### [facility] [address] [place] [address] Dr. Ellie Smith ER URINE PROFILEon 2 Bilirubin Ql (U) Negative Normal NEGATIVE [facility] Comment on above: Performed By: #### P OCGLUC #### [facility] [address] [place] [address] Dr. Ellie Smith Clarity (U) CLEAR Normal CLEAR [facility] Comment on above: Performed By: #### P OCGLUC #### [facility] [address] [place] [address] Dr. Ellie Smith Color (U) LT. YELLOW Normal YELLOW [facility] Comment on above: Performed By: #### P OCGLUC #### [facility] [address] [place] [address] Dr. Ellie Smith ERUAHD A micrscopic examina tion will be performed if indicated. Normal [facility] Comment on above: Performed By: #### P OCGLUC #### [facility] [address] [place] [address] Dr. Ellie Smith Glucose Ql (U) Negative Normal NEGATIVE [facility] Comment on above: Performed By: #### P OCGLUC #### [facility] [address] [place] [address] Dr. Ellie Smith Hemoglobin Ql (U) Negative Normal NEGATIVE [facility] Comment on above: Performed By: #### P OCGLUC #### [facility] [address] [place] [address] Dr. Ellie Smith Ketones Ql (U) Negative Normal NEGATIVE [facility] Comment on above: Performed By: #### P OCGLUC #### [facility] [address] [place] [address] Dr. Ellie Smith LEUKOCYTES Negative Normal NEGATIVE [facility] Comment on above: Performed By: #### P OCGLUC #### [facility] [address] [place] [address] Dr. Ellie Smith Nitrite Ql (U) Negative Normal NEGATIVE [facility] Comment on above: Performed By: #### P OCGLUC #### [facility] [address] [address] [address] Ellie Smith pH (U) 6.0 [pH] Normal 5-9 [facility] Comment on above: Performed By: #### P OCGLUC #### [facility] [address] [place] [address] Dr. Ellie Smith SPEC GRAVITY 1.010 Normal 1.005-<=1. 025 [facility] Comment on above: Performed By: #### P OCGLUC #### [facility] [address] [place] [address] Dr. Ellie Smith UA PROTEIN Negative Normal NEGATIVE/ TRACE [facility] Comment on above: Performed By: #### P OCGLUC #### [facility] [address] [place] [address] Dr. Ellie Smith UR MICRO IND NOT INDICATED Normal [facility] Comment on above: Performed By: #### P OCGLUC #### [facility] [address] [place] [address] Dr. Ellie Smith Urobilinogen Qn (U) 0.2 {Tamia'U}/dL Normal 0.2 - 1. 0 [facility] Comment on above: Performed By: #### P OCGLUC #### [facility] [address] [place] [address] Dr. Ellie Smith LACTATE/LACTIC ACIDon 2021 Lactate [Moles/Vol] 1.8 mmol/L Normal 0.4-1.9 [facility] Comment on above: Performed By: #### L ACT #### [facility] [address] [place] [address] Dr. Ellie Smith POINT OF CARE GLUCOSEon 01-10 Glucose [Mass/Vol] 132 mg/dL Critically high 74-106 [facility] Comment on above: Performed By: #### L ACT #### [facility] [address] [place] [address] Dr. Ellie Smith Glucose [Mass/Vol] 99 mg/dL Normal 74-106 [facility] Comment on above: Performed By: #### L ACT #### [facility] [address] [address] [address] Ellie Smith Glucose [Mass/Vol] 117 mg/dL Critically high 74-106 [facility] Comment on above: Performed By: #### P OCGLUC #### [facility] [address] [address] [address] Ellie Smith Glucose [Mass/Vol] 105 mg/dL Normal 74-106 [facility] Comment on above: Performed By: #### L ACT #### [facility] [address] [address] [address] Ellie Smith PROF 14(COMP METB)on 022 Albumin [Mass/Vol] 3.6 g/dL Normal 3.4-5.0 [facility] Comment on above: Performed By: #### C MP #### [facility] [address] [address] [address] Ellie Smith Albumin/Globulin [Mass ratio] 1.1 {ratio} Normal [facility] Comment on above: Performed By: #### C MP #### [facility] [address] [address] [address] Ellie Smith ALP [Catalytic activity/Vol] 61 U/L Normal 46-116 [facility] Comment on above: Performed By: #### C MP #### [facility] [address] [address] [address] Ellie Smith ALT [Catalytic activity/Vol] 53 U/L Normal 14-59 [facility] Comment on above: Performed By: #### C MP #### [facility] [address] [address] [address] Ellie Smith Anion gap [Moles/Vol] 14.7 mmol/L Normal [facility] Comment on above: Performed By: #### C MP #### [facility] [address] [address] [address] Ellie Smith AST [Catalytic activity/Vol] 43 U/L Critically high 15-37 [facility] Comment on above: Performed By: #### C MP #### [facility] [address] [address] [address] Ellie Smith Bilirubin [Mass/Vol] 0.4 mg/dL Normal 0.2-1.0 [facility] Comment on above: Performed By: #### C MP #### [facility] [address] [address] [address] Ellie Smith Calcium [Mass/Vol] 8.6 mg/dL Normal 8.5-10.1 [facility] Comment on above: Performed By: #### C MP #### [facility] [address] [address] [address] Ellie Smith Chloride [Moles/Vol] 99 mmol/L Normal 98-107 [facility] Comment on above: Performed By: #### C MP #### [facility] [address] [place] [address] Dr. Ellie Smith CO2 [Moles/Vol] 22.4 mmol/L Normal 21.0-32.0 [facility] Comment on above: Performed By: #### C MP #### [facility] [address] [place] [address] Dr. Ellie Smith Creatinine [Mass/Vol] 0.90 mg/dL Normal 0.55-1.02 [facility] Comment on above: Performed By: #### C MP #### [facility] [address] [place] [address] Dr. Ellie Smith EGFR-AF URUGUAYAN >60 Normal >=60 [facility] Comment on above: Performed By: #### C MP #### [facility] [address] [place] [address] Dr. Ellie Smith EGFR-NON AF URUGUAYAN 60 mL/min/1.73m2 Normal >=60 [facility] Comment on above: Performed By: #### C MP #### [facility] [address] [address] [address] Ellie Smith Globulin (S) [Mass/Vol] 3.3 g/dL Normal [facility] Comment on above: Performed By: #### C MP #### [facility] [address] [place] [address] Dr. Ellie Smith Glucose [Mass/Vol] 108 mg/dL Critically high 74-106 [facility] Comment on above: Performed By: #### C MP #### [facility] [address] [address] [address] Ellie Smith Potassium [Moles/Vol] 4.1 mmol/L Normal 3.5-5.1 [facility] Comment on above: Performed By: #### C MP #### [facility] [address] [address] [address] Ellie Smith Protein [Mass/Vol] 6.9 g/dL Normal 6.4-8.2 [facility] Comment on above: Performed By: #### C MP #### [facility] [address] [address] [address] Ellie Smith Sodium [Moles/Vol] 132 mmol/L Critically low 136-145 [facility] [facility] Comment on above: Performed By: #### C MP #### [facility] [address] [address] [address] Ellie Smith Urea nitrogen [Mass/Vol] 15.0 mg/dL Normal 7.0-18.0 [facility] Comment on above: Performed By: #### C MP #### [facility] [address] [address] [address] Ellie Smith Urea nitrogen/Creatinine [Mass ratio] 16.7 mg/mg Normal [facility] Comment on above: Performed By: #### C MP #### [facility] [address] [address] [address] Ellie Smith PROTIMEon 01-27-2022 INR Coag (PPP) [Relative time] 1.00 {INR} Normal [facility] Comment on above: Performed By: #### P OCGLUC #### [facility] [address] [address] [address] Ellie Smith INR GUIDELINES SEE BELOW Normal [facility] Comment on above: Result Comment: HIMANSHU RED INR: 2.0 - 3.0 CONDITIONS NOT LISTED BELOW 2.5 - 3.5 FOR PROSTHETIC HEART VALVE REPLACEMENT 2.5 - 3.5 RECURRENT THROMBOSIS Performed By: #### P OCGLUC #### [facility] [address] [address] [address] Ellie Smith PT Coag (PPP) [Time] 10.8 s Normal 9.0-11.6 [facility] Comment on above: Performed By: #### P OCGLUC #### [facility] [address] [address] [address] Ellie Smith PTTon 01-27-2022 aPTT Coag (Bld) [Time] 28.6 s Normal 22.3-36.2 [facility] Comment on above: Performed By: #### L ACT #### [facility] [address] [address] [address] Ellie Smith TROPONIN, HIGH SENSITIVITYon 01-27-2022 HSTROP 116.4 pg/mL Critically high 4.0-51.3 [facility] Comment on above: Result Comment: CUT- OFF POINTS HAVE BEEN ESTABLISHED BASED ON THE FOURTH UNIVERSAL DEFINITIONS OF MYOCARDIAL INFARCTION. THE UPPER REFERENCE LIMIT (URL) OF TROPONIN, DEFINED THE 99TH PERCENTILE OF cTnI DISTRIBUTION IN A REFERENCE POPULATION, HAS BEEN CONFIRMED THE DECISION THRESHOLD FOR [place] DIAGNOSIS. Performed By: #### A 1C #### [facility] [address] [place] [address] Dr. Ellie Smith HSTROP 151.5 pg/mL Critically high 4.0-51.3 [facility] Comment on above: Result Comment: CUT- OFF POINTS HAVE BEEN ESTABLISHED BASED ON THE FOURTH UNIVERSAL DEFINITIONS OF MYOCARDIAL INFARCTION. THE UPPER REFERENCE LIMIT (URL) OF TROPONIN, DEFINED THE 99TH PERCENTILE OF cTnI DISTRIBUTION IN A REFERENCE POPULATION, HAS BEEN CONFIRMED THE DECISION THRESHOLD FOR [place] DIAGNOSIS. Performed By: #### P OCGLUC #### [facility] [address] [address] [address] Ellie Smith XR CHEST 1 Von [...] JONA ORLANDO Date: 2022-01-27 01:08 Normal [facility] Albumin [Mass/volume] in Ser um or PlasmaOrdered By: Diony Hooks on 01-21-2022 Albumin [Mass/Vol] 3.4 g/dL 3.2-5.5 [facility] Basophils Auto (Bld) [#/Vol] Ordered By: Diony Hooks on 01-21-2022 Basophils (Bld) [#/Vol] 0.0 10*3/uL 0.0-0.[address] [facility] Basophils/100 WBC Auto (Bld) Ordered By: Diony Hooks on 01-21-2022 Basophils/100 WBC (Bld) 0.4 % . [facility] Blood hemoglobin measurement (mass/volume)Ordered By: Diony Hooks on 01-21-2022 Hemoglobin (Bld) [Mass/Vol] 13.3 g/dL 11.8-15.[address] [facility] Blood leukocytes automated c ount (number/volume)Ordered By: Diony Hooks on 01-21-2022 WBC (Bld) [#/Vol] 8.5 10*3/uL 4.5-11.0 [facility] Creatinine and Glomerular fi ltration rate.predicted panel (S/P/Bld)Ordered By: Diony Hooks on 01-21-2022 Creatinine [Mass/Vol] 0.72 mg/dL 0.44-1.03 [facility] Eosinophils Auto (Bld) [#/Vo l]Ordered By: Diony Hooks on 01-21-2022 Eosinophils (Bld) [#/Vol] 0.4 10*3/uL 0.0-0.[address] [facility] Eosinophils/100 WBC Auto (Bl d)Ordered By: Diony Hooks on 01-21-2022 Eosinophils/100 WBC (Bld) 4.2 % . [facility] Erythrocyte distribution wid th Auto (RBC) [Ratio]Ordered By: Diony Hooks on 01-21-2022 Erythrocyte distribution width (RBC) [Ratio] 14.4 % 11.9-15.[address] [facility] Estimated glomerular filtrat ion rate (GFR) non- AmericanOrdered By: Diony Hooks on 01-21-2022 GFR/1.73 sq M.predicted among non-blacks MDRD (S/P/Bld) [Vol rate/Area] > 60 mL/Min [facility] Globulin Calc (S) [Mass/Vol] Ordered By: Diony Hooks on 01-21-2022 Globulin (S) [Mass/Vol] 2.4 g/dL [facility] Glucose Glucometer (BldC) [M ass/Vol]Ordered By: Wiley Beal on 01-21-2022 Glucose [Mass/Vol] 93 mg/dL [facility] Comment on above: Random Glucose Refer ence Range is dependent on time and content of last meal. Glucose of more than 200 mg/dL in a nonstressed, ambulatory subject supports the diagnosis of Diabetes Mellitus. Hematocrit Auto (Bld) [Volum e fraction]Ordered By: Diony Hooks on 01-21-2022 Hematocrit (Bld) [Volume fraction] 40.5 % 34.0-46.[address] [facility] - Hematology and Cell countsOrdered By: Diony Hooks on 01-21-2022 Nucleated RBC/100 WBC (Bld) [Ratio] 0.0 % 0-0.[address] [facility] Lymphocytes Auto (Bld) [#/Vo l]Ordered By: Diony Hooks on 01-21-2022 Lymphocytes (Bld) [#/Vol] 1.2 10*3/uL 1.00-4.[address] [facility] Lymphocytes/100 WBC Auto (Bl d)Ordered By: Diony Hooks on 01-21-2022 Lymphocytes/100 WBC (Bld) 14.2 % . [facility] MCH Auto (RBC) [Entitic mass ]Ordered By: Diony Hooks on 01-21-2022 MCH (RBC) [Entitic mass] 30.7 pg 24.7-34.[address] [facility] MCHC Auto (RBC) [Mass/Vol]Or dered By: Diony Hooks on 01-21-2022 MCHC (RBC) [Mass/Vol] 32.9 g/dL 32.0-35.0 [facility] MCV Auto (RBC) [Entitic vol] Ordered By: Diony Hooks on 01-21-2022 MCV (RBC) [Entitic vol] 93.1 fL 80-[address] [facility] Monocytes Auto (Bld) [#/Vol] Ordered By: Diony Hooks on 01-21-2022 Monocytes (Bld) [#/Vol] 0.6 10*3/uL 0.0-0.[address] [facility] Monocytes/100 WBC Auto (Bld) Ordered By: Diony Hooks on 01-21-2022 Monocytes/100 WBC (Bld) 6.7 % . [facility] Neutrophils Auto (Bld) [#/Vo l]Ordered By: Diony Hooks on 01-21-2022 Neutrophils (Bld) [#/Vol] 6.3 10*3/uL 1.8-7.[address] [facility] Neutrophils/100 WBC Auto (Bl d)Ordered By: Diony Hooks on 01-21-2022 Neutrophils/100 WBC (Bld) 74.5 % . [facility] No Panel InformationOrdered By: Wiley Beal on 01-21-2022 Bedside Glucose Comment Glu2: cleaned meter [facility] No Panel InformationOrdered By: Diony Hooks on 01-21-2022 Estimated GFR () > 60 mL/Min [facility] Comment on above: GFR estimated refere nce range: According to KDOQI guidelines, <60 ml/min/1.73m2 is sufficient to diagnose a patient with chronic kidney disease. Pharmacy Creatinine Clearance (Chem 55.[address] [facility] Platelet mean volume Auto (B ld) [Entitic vol]Ordered By: Diony Hooks on 01-21-2022 Platelet mean volume (Bld) [Entitic vol] 7.8 fL 6.3-10.[address] [facility] Platelets Auto (Bld) [#/Vol] Ordered By: Diony Hooks on 01-21-2022 Platelets (Bld) [#/Vol] 235 10*3/uL 150-[address] [facility] Protein [Mass/volume] in Ser um or PlasmaOrdered By: Diony Hooks on 01-21-2022 Protein [Mass/Vol] 5.8 g/dL 6.1-7.9 [facility] RBC Auto (Bld) [#/Vol]Ordere d By: Diony Hooks on 01-21-2022 RBC (Bld) [#/Vol] 4.35 10*6/uL 3.60-5.00 [facility] Serum or plasma alanine potter otransferase measurement without P-5'-P (enzymatic activiOrdered By: Diony Hooks on 01-21-2022 ALT No additional P-5'-P [Catalytic activity/Vol] 16 U/L 10-[address] [facility] Serum or plasma albumin/glob ulin mass ratioOrdered By: Diony Hooks on 01-21-2022 Albumin/Globulin [Mass ratio] 1.4 {ratio} [facility] Serum or plasma alkaline inge sphatase measurement (enzymatic activity/volume)Ordered By: Diony Hooks on 01-21-2022 ALP [Catalytic activity/Vol] 43 U/L 32-[address] [facility] Serum or plasma aspartate am inotransferase measurement (enzymatic activity/volume)Ordered By: Diony Hooks on 01-21-2022 AST [Catalytic activity/Vol] 25 U/L 10-[address] [facility] Serum or plasma calcium norma urement (mass/volume)Ordered By: Diony Hooks on 01-21-2022 Calcium [Mass/Vol] 9.1 mg/dL 8.2-10.2 [facility] Serum or plasma chloride tam surement (moles/volume)Ordered By: Diony Hooks on 01-21-2022 Chloride [Moles/Vol] 104 mmol/L 95-114 [facility] Serum or plasma glucose norma urement (mass/volume)Ordered By: Diony Hooks on 01-21-2022 Glucose [Mass/Vol] 98 mg/dL 70-100 [facility] Comment on above: ADA recommended refe rence range Random Glucose Reference Range is dependent on time and content of last meal. Glucose of more than 200 mg/dL in a nonstressed, ambulatory subject supports the diagnosis of Diabetes Mellitus. Serum or plasma potassium me asurement (moles/volume)Ordered By: Diony Hooks on 01-21-2022 Potassium [Moles/Vol] 3.8 mmol/L 3.5-5.1 [facility] Serum or plasma sodium measu rement (moles/volume)Ordered By: Diony Hooks on 01-21-2022 Sodium [Moles/Vol] 135 mmol/L 136-146 [facility] Serum or plasma total biliru bin measurement (mass/volume)Ordered By: Diony Hooks on 01-21-2022 Bilirubin [Mass/Vol] 0.9 mg/dL 0.3-1.2 [facility] Serum or plasma total carbon dioxide measurement (moles/volume)Ordered By: Diony Hooks on 01-21-2022 CO2 [Moles/Vol] 23.4 mmol/L 22.0-30.0 [facility] Serum or plasma urea nitroge n measurement (mass/volume)Ordered By: Diony Hooks on 01-21-2022 Urea nitrogen [Mass/Vol] 9 mg/dL 03-[address] [facility] Activated partial thrombopla stin time (aPTT) in platelet poor plasma by coagulation aOrdered By: Wiley Beal on 01-20-2022 aPTT Coag (PPP) [Time] 70.5 s 25.1-36.5 [facility] Cholesterol [Mass/volume] in Serum or PlasmaOrdered By: Justa Westfall on 01-19-2022 Cholesterol [Mass/Vol] 181 mg/dL 140-200 [facility] Comment on above: Chol less than 200 m g/dl low risk Chol 201-239 mg/dl borderline risk Chol 240 mg/dl and greater high risk Cholesterol in LDL Calc [Mas s/Vol]Ordered By: Justa Westfall on 01-19-2022 Cholesterol in LDL [Mass/Vol] 112 mg/dL 0-[address] [facility] Comment on above: LDL ATP III CLASSIFI CATION LDL less than 100 mg/dL Optimal LDL 100-129 mg/dL Near or above optimal LDL 130-159 mg/dL Borderline high LDL 160-189 mg/dL High LDL greater than 189 mg/dL Very high Cholesterol in VLDL Calc [Ma ss/Vol]Ordered By: Justa Westfall on 01-19-2022 Cholesterol in VLDL [Mass/Vol] 22 mg/dL [facility] - Chemistry and C hemistry - challengeOrdered By: Justa Westfall on 01-19-2022 Magnesium [Mass/Vol] 1.4 mg/dL 1.6-2.6 [facility] - CoagulationOrde red By: Justa Westfall on 01-19-2022 PT Coag (PPP) [Time] 11.7 s 9.0-12.9 [facility] Platelet poor plasma interna tional normalized ratio (INR) by coagulation assay (relatOrdered By: Justa Westfall on 01-19-2022 INR Coag (PPP) [Relative time] 1.0 {INR} [facility] Comment on above: INR Therapeutic Rang [...] Cholesterol in HDL [Mass/Vol] 46 mg/dL 35-[address] [facility] Comment on above: HDL CHOL ATP-III CLA SSIFICATION Cardiovascular Risk HDL > or equal to 60 mg/dL LOW HDL < 40 mg/dL HIGH Serum or plasma total choles terol/high density lipoprotein (HDL) cholesterol mass ratOrdered By: Justa Westfall on 01-19-2022 Cholesterol.total/Chol esterol in HDL [Mass ratio] 3.9 {ratio} <5.[address] [facility] Triglyceride [Mass/volume] i n Serum or PlasmaOrdered By: Justa Westfall on 01-19-2022 Triglyceride [Mass/Vol] 113 mg/dL 35-[address] [facility] Comment on above: TRIG ATP III [...] High sensitivity method [Mass/Vol] 3577 pg/mL 0-[address] [facility] Comment on above: Results called at 0943 on 01/19/22 BNPon 01-18-2022 Natriuretic peptide B (Bld) [Mass/Vol] 1222.0 pg/mL Normal <=1,800.0 [facility] Comment on above: Performed By: #### A 1C #### [facility] [address] [place] [address] Dr. Ellie Smith CBC AUTO DIFFon 01-18-2022 BASO # 0.1 103/ul Normal 0.0-0.1 [facility] Comment on above: Performed By: #### R [id number] #### [facility] [address] [place] [address] Dr. Ellie Smith Basophils/100 WBC (Bld) 0.5 % Normal 0.2-2.0 [facility] Comment on above: Performed By: #### R [id number] #### [facility] [address] [place] [address] Dr. Ellie Smith EO # 0.2 103/ul Normal 0.0-0.7 [facility] Comment on above: Performed By: #### R EVRT3 #### [facility] [address] [place] [address] Dr. Ellie Smith Eosinophils/100 WBC (Bld) 2.4 % Normal 0.9-7.0 [facility] Comment on above: Performed By: #### R EVRT3 #### [facility] [address] [place] [address] Dr. Ellie Smith Erythrocyte distribution width (RBC) [Ratio] 14.1 % Normal 11.0-15.0 [facility] Comment on above: Performed By: #### R EVRT3 #### [facility] [address] [place] [address] Dr. Ellie Smith Hematocrit (Bld) [Volume fraction] 42.2 % Normal 36.0-48.0 [facility] Comment on above: Performed By: #### R [id number] #### [facility] [address] [place] [address] Dr. Ellie Smith Hemoglobin (Bld) [Mass/Vol] 13.9 g/dL Normal 12.0-16.0 [facility] Comment on above: Performed By: #### R [id number] #### [facility] [address] [place] [address] Dr. Ellie Smith IG # 0.02 10e3/ul Normal 0.00-0.03 [facility] Comment on above: Performed By: #### R EVRT3 #### [facility] [address] [place] [address] Dr. Ellie Smith IG % 0.2 % Normal 0.0-0.5 [facility] Comment on above: Performed By: #### R [id number] #### [facility] [address] [place] [address] Dr. Ellie Smith LYMPH # 2.1 103/ul Normal 1.2-3.8 [facility] Comment on above: Performed By: #### R EVRT3 #### [facility] [address] [place] [address] Dr. Ellie Smith Lymphocytes/100 WBC (Bld) 21.2 % Normal 20.5-60.0 [facility] Comment on above: Performed By: #### R EVRT3 #### [facility] [address] [place] [address] Dr. Ellie Smith MANUAL DIFF REQ NO Normal [facility] Comment on above: Performed By: #### R EVRT3 #### [facility] [address] [place] [address] Dr. Ellie Smith MCH (RBC) [Entitic mass] 31.2 pg Normal 26.7-34.0 [facility] Comment on above: Performed By: #### R EVRT3 #### [facility] [address] [place] [address] Dr. Ellie Smith MCHC (RBC) [Mass/Vol] 32.9 g/dL Normal 29.9-35.2 [facility] Comment on above: Performed By: #### R EVRT3 #### [facility] [address] [place] [address] Dr. Ellie Smith MCV (RBC) [Entitic vol] 94.6 fL Normal 81.0-99.0 [facility] Comment on above: Performed By: #### R EVRT3 #### [facility] [address] [place] [address] Dr. Ellie Smith MONO # 0.5 103/ul Normal 0.3-0.8 [facility] Comment on above: Performed By: #### R EVRT3 #### [facility] [address] [place] [address] Dr. Ellie Smith Monocytes/100 WBC (Bld) 4.7 % Normal 1.7-12.0 [facility] Comment on above: Performed By: #### R EVRT3 #### [facility] [address] [place] [address] Dr. Ellie Smith NEUT # 7.1 103/ul Critically high 1.4-6.5 [facility] Comment on above: Performed By: #### R EVRT3 #### [facility] [address] [place] [address] Dr. Ellie Smith Neutrophils/100 WBC (Bld) 71.0 % Normal 43.0-75.0 [facility] Comment on above: Performed By: #### R EVRT3 #### [facility] [address] [place] [address] Dr. Ellie Smith Platelet mean volume (Bld) [Entitic vol] 9.2 fL Critically low 9.5-13.5 [facility] Comment on above: Performed By: #### R EVRT3 #### [facility] [address] [place] [address] Dr. Ellie Smith PLT 257 103/ul Normal 150-450 [facility] Comment on above: Performed By: #### R [id number] #### [facility] [address] [place] [address] Dr. Ellie Smith RBC 4.46 106/ul Normal 4.20-5.40 [facility] Comment on above: Performed By: #### R EVRT3 #### [facility] [address] [place] [address] Dr. Ellie Smith WBC 10.0 103/ul Normal 4.0-11.0 [facility] Comment on above: Performed By: #### R EVRT3 #### [facility] [address] [place] [address] Dr. Ellie Smith Covid-19 PCR (CVDTB)on SARS-CoV-2 (COVID-19) RNA MEI+probe Ql (Unsp spec) Not detected Normal NOT DETECTED [facility] Comment on above: Result Comment: When diagnostic [...] for this test is supported by the [employer]'s declaration that [...] used). Performed By: #### C VDTBH #### [facility] [address] [place] [address] Dr. Ellie Smith LIPASEon 01-18-2022 Lipase [Catalytic activity/Vol] 62.0 U/L Critically low 73.0-393.0 [facility] Comment on above: Performed By: #### A 1C #### [facility] [address] [place] [address] Dr. Ellie Smith MAGNESIUMon 01-18-2022 Magnesium [Mass/Vol] 1.4 mg/dL Critically low 1.8-2.4 [facility] Comment on above: Performed By: #### M G #### [facility] [address] [place] [address] Dr. Ellie Smith PROF 14(COMP METB)on 022 Albumin [Mass/Vol] 3.8 g/dL Normal 3.4-5.0 [facility] Comment on above: Performed By: #### A 1C #### [facility] [address] [place] [address] Dr. Ellie Smith Albumin/Globulin [Mass ratio] 1.2 {ratio} Normal [facility] Comment on above: Performed By: #### A 1C #### [facility] [address] [place] [address] Dr. Ellie Smith ALP [Catalytic activity/Vol] 59 U/L Normal 46-116 [facility] Comment on above: Performed By: #### A 1C #### [facility] [address] [place] [address] Dr. Ellie Smith ALT [Catalytic activity/Vol] 18 U/L Normal 14-59 [facility] Comment on above: Performed By: #### A 1C #### [facility] [address] [place] [address] Dr. Ellie Smith Anion gap [Moles/Vol] 11.1 mmol/L Normal [facility] Comment on above: Performed By: #### A 1C #### [facility] [address] [place] [address] Dr. Ellie Smith AST [Catalytic activity/Vol] 14 U/L Critically low 15-37 [facility] Comment on above: Performed By: #### A 1C #### [facility] [address] [place] [address] Dr. Ellie Smith Bilirubin [Mass/Vol] 0.3 mg/dL Normal 0.2-1.0 [facility] Comment on above: Performed By: #### A 1C #### [facility] [address] [place] [address] Dr. Ellie Smith Calcium [Mass/Vol] 9.1 mg/dL Normal 8.5-10.1 [facility] Comment on above: Performed By: #### A 1C #### [facility] [address] [place] [address] Dr. Ellie Smith Chloride [Moles/Vol] 104 mmol/L Normal 98-107 [facility] Comment on above: Performed By: #### A 1C #### [facility] [address] [address] [address] Ellie Smith CO2 [Moles/Vol] 26.9 mmol/L Normal 21.0-32.0 [facility] Comment on above: Performed By: #### A 1C #### [facility] [address] [address] [address] Ellie Smith Creatinine [Mass/Vol] 0.84 mg/dL Normal 0.55-1.02 [facility] Comment on above: Performed By: #### A 1C #### [facility] [address] [place] [address] Dr. Ellie Smith EGFR-AF URUGUAYAN >60 Normal >=60 [facility] Comment on above: Performed By: #### A 1C #### [facility] [address] [place] [address] Dr. Ellie Smith EGFR-NON AF URUGUAYAN >60 Normal >=60 [facility] Comment on above: Performed By: #### A 1C #### [facility] [address] [place] [address] Dr. Ellie Smith Globulin (S) [Mass/Vol] 3.1 g/dL Normal [facility] Comment on above: Performed By: #### A 1C #### [facility] [address] [place] [address] Dr. Ellie Smith Glucose [Mass/Vol] 100 mg/dL Normal 74-106 [facility] Comment on above: Performed By: #### A 1C #### [facility] [address] [place] [address] Dr. Ellie Smith Potassium [Moles/Vol] 4.0 mmol/L Normal 3.5-5.1 [facility] Comment on above: Performed By: #### A 1C #### [facility] [address] [place] [address] Dr. Ellie Smith Protein [Mass/Vol] 6.9 g/dL Normal 6.4-8.2 [facility] Comment on above: Performed By: #### A 1C #### [facility] [address] [place] [address] Dr. Ellie Smith Sodium [Moles/Vol] 138 mmol/L Normal 136-145 [facility] Comment on above: Performed By: #### A 1C #### [facility] [address] [place] [address] Dr. Ellie Smith Urea nitrogen [Mass/Vol] 14.0 mg/dL Normal 7.0-18.0 [facility] Comment on above: Performed By: #### A 1C #### [facility] [address] [place] [address] Dr. Ellie Smith Urea nitrogen/Creatinine [Mass ratio] 16.7 mg/mg Normal [facility] Comment on above: Performed By: #### A 1C #### [facility] [address] [place] [address] Dr. Ellie Smith PROTIMEon 01-18-2022 INR Coag (PPP) [Relative time] 0.95 {INR} Normal [facility] Comment on above: Performed By: #### R [id number] #### [facility] [address] [place] [address] Dr. Ellie Smith INR GUIDELINES SEE BELOW Normal [facility] Comment on above: Result Comment: HIMANSHU RED INR: 2.0 - 3.0 CONDITIONS NOT LISTED BELOW 2.5 - 3.5 FOR PROSTHETIC HEART VALVE REPLACEMENT 2.5 - 3.5 RECURRENT THROMBOSIS Performed By: #### R [id number] #### [facility] [address] [place] [address] Dr. Ellie Smith PT Coag (PPP) [Time] 10.3 s Normal 9.0-11.6 [facility] Comment on above: Performed By: #### R [id number] #### [facility] [address] [place] [address] Dr. Ellie Smith PTTon 01-18-2022 aPTT Coag (Bld) [Time] 27.1 s Normal 22.3-36.2 [facility] Comment on above: Performed By: #### R EVRT3 #### [facility] [address] [place], [place] [address] Dr. Ellie Smith TROPONIN, HIGH SENSITIVITYon 01-18-2022 HSTROP 512.5 pg/mL Critically high 4.0-51.3 [facility] Comment on above: Result Comment: CUT- OFF POINTS HAVE BEEN ESTABLISHED BASED ON THE FOURTH UNIVERSAL DEFINITIONS OF MYOCARDIAL INFARCTION. THE UPPER REFERENCE LIMIT (URL) OF TROPONIN, DEFINED THE 99TH PERCENTILE OF cTnI DISTRIBUTION IN A REFERENCE POPULATION, HAS BEEN CONFIRMED THE DECISION THRESHOLD FOR [place] DIAGNOSIS. repeated Performed By: #### A 1C #### [facility] [address] [address] [address] Ellie Smith XR CHEST 1 Von [...] by: NICOLE SANDERS Date: 2022-01-18 17:38 Normal [facility] Vital Signs Date Time Vital Sign Value Performing Clinician Facility 03-14-2023 12:00-0400 Body temperature 98.1 [degF] MD Priyanka Puentes Work Phone: [facility] 03-14-2023 12:00-0400 Diastolic blood pressure 72 mm[Hg] MD Priyanka Puentes Work Phone: [facility] 03-14-2023 12:00-0400 Heart rate 70 /min MD Priyanka Puentes Work Phone: [facility] 03-14-2023 12:00-0400 Respiratory rate 12 /min MD Priyanka Puentes Work Phone: [facility] 03-14-2023 12:00-0400 SaO2% (BldA) [Mass fraction] 95 % MD Priyanka Puentes Work Phone: [facility] 03-14-2023 12:00-0400 Systolic blood pressure 155 mm[Hg] MD Priyanka Puentes Work Phone: [facility] 03-14-2023 06:00-0400 Body weight 66.3 kg MD Priyanka Puentes Work Phone: [facility] 03-12-2023 20:20-0400 Body height 157.48 cm MD Priyanka Puentes Work Phone: [facility] 03-12-2023 17:59-0400 Diastolic blood pressure 91 mm[Hg] MD Priyanka Puentes Work Phone: [facility] 03-12-2023 17:59-0400 Systolic blood pressure 199 mm[Hg] MD Priyanka Puentes Work Phone: [facility] 03-12-2023 17:33-0400 Heart rate 110 /min MD Priyanka Puentes Work Phone: [facility] 03-12-2023 17:33-0400 Respiratory rate 18 /min MD Priyanka Puentes Work Phone: [facility] 03-12-2023 17:33-0400 SaO2% (BldA) [Mass fraction] 96 % MD Priyanka Puentes Work Phone: [facility] 03-12-2023 13:44-0400 Body height 157.48 cm MD Priyanka Puentes Work Phone: [facility] 03-12-2023 13:44-0400 Body temperature 98.6 [degF] MD Priyanka Puentes Work Phone: [facility] 03-12-2023 13:44-0400 Body weight 63.5 kg MD Priyanka Puentes Work Phone: [facility] 03-07-2023 08:00-0400 Body temperature 97.9 [degF] MD Priyanka Puentes Work Phone: [facility] 03-07-2023 08:00-0400 Diastolic blood pressure 77 mm[Hg] MD Priyanka Puentes Work Phone: [facility] 03-07-2023 08:00-0400 Heart rate 78 /min MD Priyakna Puentes Work Phone: [facility] 03-07-2023 08:00-0400 Respiratory rate 16 /min MD Priyanka Puentes Work Phone: [facility] 03-07-2023 08:00-0400 SaO2% (BldA) [Mass fraction] 98 % MD Priyanka Puentes Work Phone: [facility] 03-07-2023 08:00-0400 Systolic blood pressure 167 mm[Hg] MD Priyanka Puentes Work Phone: [facility] 03-07-2023 06:10-0400 Body weight 64.7 kg MD Priyanka Puentes Work Phone: [facility] 03-06-2023 13:53-0400 Body height 157.48 cm MD Priyanka Puentes Work Phone: [facility] 03-05-2023 21:31-0400 Diastolic blood pressure 65 mm[Hg] MD Priyanka Puentes Work Phone: [facility] 03-05-2023 21:31-0400 Heart rate 85 /min MD Priyanka Puentes Work Phone: [facility] 03-05-2023 21:31-0400 SaO2% (BldA) [Mass fraction] 96 % MD Priyanka Puentes Work Phone: [facility] 03-05-2023 21:31-0400 Systolic blood pressure 145 mm[Hg] MD Priyanka Puentes Work Phone: [facility] 03-05-2023 18:47-0400 Respiratory rate 18 /min MD Priyanka Puentes Work Phone: [facility] 03-05-2023 18:00-0400 Body height 157.48 cm MD Priyanka Puentes Work Phone: [facility] 03-05-2023 18:00-0400 Body temperature 97.1 [degF] MD Priyanka Puentes Work Phone: [facility] 03-05-2023 18:00-0400 Body weight 65.7 kg MD Priyanka Puentes Work Phone: [facility] 02-16-2023 13:38-0400 Body height 157.48 cm Priyanka Malcolmbud Work Phone: [facility] 250 DO Work Phone: 02-16-2023 13:38-0400 Body mass index (BMI) [Ratio] 26.52 kg/m2 Priyanka Malcolmbud Work Phone: [facility] 250 DO Work Phone: 02-16-2023 13:38-0400 Body surface area Derived from formula 1.67 m2 Priyanka Malcolmbud Work Phone: [facility] 250 DO Work Phone: 02-16-2023 13:38-0400 Body weight 65.77 kg Priyanka Malcolmbud Work Phone: [facility] 250 DO Work Phone: 02-16-2023 13:38-0400 Diastolic blood pressure 62 mm[Hg] Priyanka Malcolmbud Work Phone: [facility] 250 DO Work Phone: 02-16-2023 13:38-0400 Heart rate 76 /min Priyanka Puentes Work Phone: [facility] 250 DO Work Phone: 02-16-2023 13:38-0400 Systolic blood pressure 128 mm[Hg] Priyanka Puentes Work Phone: [facility] 250 DO Work Phone: 08-24-2022 14:35-0400 Body height 157.48 cm Edzeeshan Malcolmyer Work Phone: [facility] 250 DO Work Phone: 08-24-2022 14:35-0400 Body mass index (BMI) [Ratio] 27.98 kg/m2 Edzeeshan Schrader Hemeyer Work Phone: [facility] 250 DO Work Phone: 08-24-2022 14:35-0400 Body surface area Derived from formula 1.71 m2 Priyanka Malcolmyer Work Phone: [facility] 250 DO Work Phone: 08-24-2022 14:35-0400 Body weight 69.4 kg Priyanka Malcolmyer Work Phone: [facility] 250 DO Work Phone: 08-24-2022 14:35-0400 Diastolic blood pressure 54 mm[Hg] Edzeeshan Malcolmyer Work Phone: [facility] 250 DO Work Phone: 08-24-2022 14:35-0400 Heart rate 82 /min Priyanka Malcolmyer Work Phone: [facility] 250 DO Work Phone: 08-24-2022 14:35-0400 Systolic blood pressure 132 mm[Hg] Priyanka Malcolmyer Work Phone: [facility] 250 DO Work Phone: 03-17-2022 15:30-0400 Body height 157.48 cm Priyanka Malcolmyer Work Phone: [facility] 600 DO Work Phone: 03-17-2022 15:30-0400 Body mass index (BMI) [Ratio] 30.18 kg/m2 Priyanka Malcolmyer Work Phone: [facility] 600 DO Work Phone: 03-17-2022 15:30-0400 Body surface area Derived from formula 1.76 m2 Edzeeshan Malcolmyer Work Phone: [facility] 600 DO Work Phone: 03-17-2022 15:30-0400 Body weight 74.84 kg Edzeeshan Malcolmyer Work Phone: [facility] 600 DO Work Phone: 03-17-2022 15:30-0400 Diastolic blood pressure 58 mm[Hg] Priyanka Malcolmyer Work Phone: [facility] 600 DO Work Phone: 03-17-2022 15:30-0400 Heart rate 80 /min Edzeeshan Puentes Work Phone: [facility] 600 DO Work Phone: 03-17-2022 15:30-0400 Systolic blood pressure 130 mm[Hg] Priyanka Malcolmyer Work Phone: [facility] 600 DO Work Phone: 02-15-2022 14:39-0400 Body height 157.48 cm Edzeeshan Malcolmyer Work Phone: [facility] 250 DO Work Phone: 02-15-2022 14:39-0400 Body mass index (BMI) [Ratio] 30.18 kg/m2 Edzeeshan Malcolmyer Work Phone: [facility] 250 DO Work Phone: 02-15-2022 14:39-0400 Body surface area Derived from formula 1.76 m2 Edzeeshan Malcolmyer Work Phone: [facility] 250 DO Work Phone: 02-15-2022 14:39-0400 Body weight 74.84 kg Priyanka Malcolmbud Work Phone: [facility] 250 DO Work Phone: 02-15-2022 14:39-0400 Diastolic blood pressure 60 mm[Hg] Priyanka Malcolmbud Work Phone: [facility] 250 DO Work Phone: 02-15-2022 14:39-0400 Heart rate 78 /min Priyanka Puentes Work Phone: [facility] 250 DO Work Phone: 02-15-2022 14:39-0400 Systolic blood pressure 140 mm[Hg] Priyanka Puentes Work Phone: [facility] 250 DO Work Phone: 02-15-2022 14:39-0400 10 1 Priyanka Malcolmbud Work Phone: [facility] 250 DO Work Phone: Comment on above: [id number] 02-03-2022 17:15-0400 Diastolic blood pressure 84 mm[Hg] MD Priyanka Puentes Work Phone: [facility] 02-03-2022 17:15-0400 Heart rate 78 /min MD Priyanka Puentes Work Phone: [facility] 02-03-2022 17:15-0400 Respiratory rate 20 /min MD Priyanka Puentes Work Phone: [facility] 02-03-2022 17:15-0400 SaO2% (BldA) [Mass fraction] 94 % MD Priyanka Puentes Work Phone: [facility] 02-03-2022 17:15-0400 Systolic blood pressure 185 mm[Hg] MD Priyanka Puentes Work Phone: [facility] 02-03-2022 16:00-0400 Body temperature 97.8 [degF] MD Priyanka Puentes Work Phone: [facility] 02-03-2022 10:25-0400 Body height 157.48 cm MD Priyanka Puentes Work Phone: [facility] 02-03-2022 10:25-0400 Body weight 77.5 kg MD Priyanka Puentes Work Phone: [facility] 01-21-2022 12:00-0400 Body temperature 97.6 [degF] MD Priyanka Puentes Work Phone: [facility] 01-21-2022 12:00-0400 Diastolic blood pressure 81 mm[Hg] MD Priyanka Puentes Work Phone: [facility] 01-21-2022 12:00-0400 Heart rate 73 /min MD Priyanka Puentes Work Phone: [facility] 01-21-2022 12:00-0400 Respiratory rate 20 /min MD Priyanka Puentes Work Phone: [facility] 01-21-2022 12:00-0400 SaO2% (BldA) [Mass fraction] 94 % MD Priyanka Puentes Work Phone: [facility] 01-21-2022 12:00-0400 Systolic blood pressure 150 mm[Hg] MD Priyanka Puentes Work Phone: [facility] 01-21-2022 05:59-0400 Body weight 79.6 kg MD Priyanka Puentes Work Phone: [facility] 01-19-2022 09:50-0400 Body height 157.48 cm MD Priyanka Puentes Work Phone: [facility] 01-18-2022 00:00-0400 55 1 Priyanka Puentes Work Phone: [facility] 250 DO Work Phone: Comment on above: [id number] 01-01-2022 11:00-0400 Body height 157.48 cm Eva Panda Other [facility] Other 01-01-2022 11:00-0400 Body mass index (BMI) [Ratio] 31.64 kg/m2 Eva Panda Other [facility] Other 01-01-2022 11:00-0400 Body temperature 97.1 [degF] Eva Panda Other [facility] Other 01-01-2022 11:00-0400 Body weight 78.47 kg Eva Panda Other [facility] Other 01-01-2022 11:00-0400 Diastolic blood pressure 101 mm[Hg] Eva Panda Other [facility] Other 01-01-2022 11:00-0400 Respiratory rate 18 /min Eva Panda Other [facility] Other 01-01-2022 11:00-0400 SaO2% (BldA) [Mass fraction] 96 % Eva Panda Other [facility] Other 01-01-2022 11:00-0400 Systolic blood pressure 156 mm[Hg] Eva Patelmond Other [facility] Other Encounters Encounter Date Encounter Type Care Provider Facility Start: 05-08-2023 End: 05-08-2023 ambulatory PRIYANKA PUENTES Not Available Start: 03-12-2023 End: 03-14-2023 ambulatory Sima Louieader Facility:[facility] Start: 03-12-2023 End: 03-14-2023 Evaluation and management of inpatient MD Priyanka Puentes Work Phone: [facility] Work Phone: Start: 03-12-2023 End: 03-14-2023 observation encounter MD Priyanka Puentes Work Phone: [facility] Work Phone: Start: 03-06-[address] Priyanka Puentes Facility:[id number] Start: 03-05-2023 End: 03-07-2023 ambulatory Priyanka Puentes Facility:[facility] Start: 03-05-2023 End: 03-07-2023 Evaluation and management of inpatient MD Priyanka Puentes Work Phone: [facility] Work Phone: Start: 03-05-2023 End: 03-07-2023 observation encounter MD Priyanka Puentes Work Phone: [facility] Work Phone: Start: 03-02-2023 Telephone encounter Priyanka bhatt Work Phone: [facility] 600 DO Work Phone: Start: 02-16-2023 Office outpatient vi sit 15 minutes Priyanka Puentes Work Phone: [facility] 250 DO Work Phone: Start: 02-16-[address] Priyanka Puentes Facility:[id number] Start: 10-05-2022 End: 10-06-[address] PRIYANKA PUENTES . Facility:[facility]1 Start: 08-24-2022 Office outpatient vi sit 25 minutes Priyanka Puentes Work Phone: [facility] 250 DO Work Phone: Start: 08-24-[address] Priyanka Puentes Facility: Start: 08-15-2022 End: 08-16-[address] ANUM WOODY Facility:[facility]1 Start: 06-14-2022 End: 07-19-[address] PRIYANKA PUENTES . Facility:[facility] Start: 04-12-2022 End: 04-13-[address] PRIYANKA PUENTES . Facility:[facility] Start: 03-29-2022 End: 03-30-[address] PRIYANKA PUENTES . Facility:[facility] Start: 03-25-2022 Telephone encounter Priyanka bhatt Work Phone: [facility] 250 DO Work Phone: Start: 03-17-2022 Office outpatient vi sit 25 minutes Priyanka Puentes Work Phone: [facility] 600 DO Work Phone: Start: 03-17-2022 ambulatory Ms. Khanh Persaud Facility: Start: 02-24-2022 End: 06-14-[address] PRIYANKA PUENTES . Facility:[facility]1 Start: 02-15-2022 Office outpatient vi sit 25 minutes Priyanka Puentes Work Phone: [facility] 250 DO Work Phone: Start: 02-07-2022 Telephone encounter Pryianka bhatt Work Phone: [facility] 250 DO Work Phone: Start: 02-03-2022 End: 02-03-2022 Admission to same day surgery center MD Priyanka Puentes Work Phone: [facility] [employer] Start: 02-01-2022 End: 02-01-2022 Patient encounter procedure MD Priyanka Puentes Work Phone: [facility]-Pre-Surgical Testing Start: 01-27-2022 End: 01-28-[address] RAQUEL PERSAUD Facility:[facility]1 Start: 01-18-2022 End: 01-21-2022 Evaluation and management of inpatient MD Priyanka Puentes Work Phone: [facility] Start: 01-18-2022 End: 01-18-2022 ambulatory BRITTNI LOTT . Facility: Start: 01-01-2022 End: 01-01-2022 ambulatory Eva Panda Other [place] [employer] Other Start: 01-01-2022 Office outpatient ne w [...] Yassine Dougherty, Status: Pen, Time: 1:00 PM [facility] 250 DO Work Phone: Start: 03-14-[address] [facility] Start: 03-12-2023 Referral to Services Advisor [facility] Start: 03-12-[address] [facility] Start: 03-12-2023 Physical therapy procedure [facility] Start: 03-12-2023 Referral to occupational therapist [facility] Start: 03-12-[address] [facility] Start: 03-07-[address] [facility] Start: 03-06-2023 Comprehensive metabolic 2000 panel - Serum or Plasma [facility] Start: 03-06-2023 Doppler ultrasonography of bilateral carotid arteries US carotid doppler BI [facility] Start: 03-06-[address] [facility] Start: 03-06-[address] [facility] Start: 03-05-[address] [facility] Start: 03-05-2023 Physical therapy procedure [facility] Start: 03-05-2023 Referral to occupational therapist [facility] Start: 03-05-[address] [facility] Start: 03-05-[address] [facility] Start: 02-16-2023 FUV, Provider: Yassine Dougherty, Status: Pen, Time: 1:20 PM [facility]UV, Provider: Yassine Dougherty, Status: Pen, Time: 1:20 PM [facility] 250 DO Work Phone: Start: 07-06-2022 FUV, Provider: Yassine Dougherty, Status: Pen, Time: 2:20 PM FUV, Provider: Yassine Dougherty, Status: Pen, Time: 2:20 PM [facility] 600 DO Work Phone: Start: 03-17-2022 FUV, Provider: Khanh Mercado, Status: Pen, Time: 3:30 PM FUV, Provider: Khanh Mercado, Status: Pen, Time: 3:30 PM [facility] 250 DO Work Phone: Start: 02-03-2022 [facility] Work Phone: Start: 02-03-2022 Hospital admission [facility] Work Phone: Start: 02-03-2022 CL PTCA Ea Add LAD CL PTCA Ea Add LAD [facility] Start: 02-03-2022 CL Stent 1st Vessel LAD GAYATHRI CL Stent 1st Vessel LAD GAYATHRI [facility] Start: 02-03-[address] [facility] Start: 02-03-2022 End: 02-03-2022 Admission to same day surgery center Departed Surgical Day Care [facility] Start: 02-01-2022 End: 02-01-2022 Patient encounter procedure Departed Clinical [facility]-Pre-Surgical Testing Start: 01-21-2022 [facility] Work Phone: Start: 01-18-2022 Referral to contact lens manufacturer [facility] Work Phone: Start: 01-18-2022 Hospital admission [facility] Work Phone: Start: 01-18-2022 Dilation of Coronary Artery, Two Arteries with Four or More Drug-eluting Intraluminal Devices, Percutaneous Approach Dilation of Coronary Artery, Two Arteries with Four or More Drug-eluting Intraluminal Devices, Percutaneous Approach [facility] Start: 01-18-2022 Fluoroscopy of Left Heart using Low Osmolar Contrast Fluoroscopy of Left Heart using Low Osmolar Contrast [facility] Start: 01-18-2022 Fluoroscopy of Multiple Coronary Arteries using Low Osmolar Contrast Fluoroscopy of Multiple Coronary Arteries using Low Osmolar Contrast [facility] Start: 01-18-2022 Measurement of Cardiac Sampling and Pressure, Left Heart, Percutaneous Approach Measurement of Cardiac Sampling and Pressure, Left Heart, Percutaneous Approach [facility] Patient Education [facility] Work Phone: Patient referral [facility] Work Phone: Immunizations Immunization Date Immunization Notes Care Provider Fa denise 05-17-2022 Fluzone High-Dose Quadrivalent 0.7 ML Intramuscular Suspension Prefilled Syringe Priyanka Puentes Work Phone: [facility] 250 DO Work Phone: 04-29-2022 Pfizer COVID-19 Vac Bivalent 30 MCG/0.3ML Intramuscular Suspension Priyanka Puentes Work Phone: [facility] 250 DO Work Phone: 04-19-2021 influenza, injectabl e, quadrivalent, preservative free Priyanka Puentes Work Phone: [facility] 250 DO Work Phone: 03-17-2021 Pfizer-BioNTech COVI D-19 Vacc 30 MCG/0.3ML Intramuscular Suspension Priyanka Puentes Work Phone: [facility] 250 DO Work Phone: 07-31-2020 COVID-19 Bob Ordonez (Pfizer) MD Priyanka Puentes Work Phone: [facility] 07-08-2020 Pfizer-BioNTech COVI D-19 Vacc 30 MCG/0.3ML Intramuscular Suspension Priyanka Puentes Work Phone: [facility] 250 DO Work Phone: 07-03-2020 COVID-19 Bob Ordonez (Pfizer) MD Priyanka Malcolmyer Work Phone: [facility] 03-26-2020 Seasonal trivalent influenza vaccine, adjuvanted, preservative free Larryzeeshan J Hemeyer Work Phone: [facility] 250 DO Work Phone: 04-09-2019 Seasonal trivalent influenza vaccine, adjuvanted, preservative free Priyanka J Hemeyer Work Phone: [facility] 250 DO Work Phone: 04-03-2018 influenza, injectabl e, quadrivalent, preservative free Priyanka Schrader Hemeyer Work Phone: [facility] 250 DO Work Phone: 04-02-2018 pneumococcal conjuga te vaccine, 13 valent Priyanka Schrader Hemeyer Work Phone: [facility] 250 DO Work Phone: 03-20-2017 pneumococcal conjuga te vaccine, 13 valent Priyanka J Hemeyer Work Phone: [facility] 250 DO Work Phone: 03-13-2017 influenza, seasonal, injectable Priyanka Schrader Hemeyer Work Phone: [facility] 250 DO Work Phone: 04-14-2016 influenza, injectabl e, quadrivalent, contains preservative Edward J Hemeyer Work Phone: [facility] 250 DO Work Phone: 04-03-2015 influenza, seasonal, injectable Edward J Hemeyer Work Phone: [facility] 250 DO Work Phone: 05-20-2009 pneumococcal polysaccharide vaccine, 23 valent Priyanka Schrader Hemeyer Work Phone: [facility] 250 DO Work Phone: Payers Date Payer Category Payer Medicare [id number] 2. [id number] 1957 Medicare [id number] 2.1 [id number] 1940 Unknown [id number] 2.16.84 [id number] 1940 Unknown [id number] 2.16.84 [id number] 1940 Unknown [id number] 2.16.84 [id number] 1942 Unknown [id number] 2.16.84 [id number] 1942 Unknown [id number] 2.16.84 [id number] 1942 Unknown [id number] 2.16.84 [id number] 1942 Unknown [id number] 2.16.84 [id number] 1942 Unknown [id number] 2.16.84 [id number] 1942 Unknown [id number] 2.16. [id number] 1942 Unknown [id number] 2.16. [id number] 1942 Unknown [id number] 2.16. [id number] 1942 Unknown [id number] 2.16. [id number] 1940 Unknown [id number] 2.16.840 .[id number] Medicare Medicare Outpatient [id number] 1D [id number] Self-pay Self Pay [id number] Unknown [id number] Unknown [place] [id number] Unknown Social History Date Type Detail Facility Sex Assigned At [facility] [employer] Other Start: 02-03-2022 End: 03-13-2023 Tobacco smoking status [facility] Ex-smoker (finding) [facility] Start: 1940 Sex Assigned At Female F [facility] Former smoker Former smoker -Formerly [facility] [place] 250 DO Work Phone: Comment on above: nicotine lozenges; Start: 03-12-2023 Tobacco smoking stat [facility] Smoker (finding) [facility] Medical Equipment Procedure Code Equipment Code Equipment Original Text Equipment Identifier Dates [id number] FDA Start: 01-20-2022 Drug-eluting cor onary artery stent, nmq-rusgtqwprqchf-hdxcd er-coated ()[id number] FDA Start: 01-20-2022 Drug-eluting cor onary artery stent, ayk-ibitdbmpjhuoh-rjmob er-coated ()[id number] FDA Start: 01-20-2022 Drug-eluting cor onary artery stent, atw-tzouqzwbjugrh-dvvwb er-coated ()[id number] FDA Start: 01-20-2022 Drug-eluting cor onary artery stent, wym-tmwdbxxnynmzg-vaywg er-coated ()[id number] [id number] FDA Start: 02-03-2022 [id number] FDA Start: 01-20-2022 [id number] FDA Start: 01-20-2022 [id number] FDA Start: 01-20-2022 [id number] FDA Start: 01-20-2022 [id number] FDA Start: 01-20-2022 [id number] FDA Start: 01-20-2022 Goals Date Patient Goal Desired Activity /State Functional Status Date Assessment Result Facility 03-14-2023 Functional status Patient at [facility] Work Phone: 03-07-2023 Functional status Patient at [facility] Work Phone: 03-05-2023 Functional status Disability Sta tus Patient at Baseline [facility] Work Phone: 02-15-2022 PHQ-9 [id number] Moderate (10-14) [facility] 250 DO Work Phone: 02-03-2022 Functional status Patient at [facility] Work Phone: 01-21-2022 Functional status Patient at [facility] Work Phone: Mental Status Date Assessment Result Facility 03-14-2023 Cognitive function Cognitive Sta tus Patient at Baseline [facility] Work Phone: 03-07-2023 Cognitive function Cognitive Sta tus Patient at Baseline [facility] Work Phone: 02-03-2022 Cognitive function Cognitive Sta tus Patient at Baseline [facility] Work Phone: 01-21-2022 Cognitive function Cognitive Sta tus Patient at Baseline [facility] Work Phone: Clinical Notes 08-24-2021 to 03-13-2023 Note Date & Type Note Facility 03-13-2023 Progress note Note Date/Time March 13, 2023 4:47pm [facility] [address] [place] [address] Hospitalist Progress Note Signed Patient: Steven Harding MR#: [id number] : 1940 Acct:[id number] Age/Sex: 83 / F Adm Date: 10/01/2 3 Loc: 4P Room: 4V8670-5 Type: ADM INOo Attending Dr: Rufus Ricks [...] Hyponatremia of 128. TSH was suppressed on [place] [facility] and has been checked twice with [...] <Electronically signed by Rufus Ricks DO> 03/13/23 [id number] [facility] Work Phone: 1(682) 648-377410-01-2023 History and physical note Author Sima Hdz [facility] March 12, 2023 7:49pm Note Date/Time March 12, 2023 7: 50pm [facility] [address] [place] [address] Hospitalist H&P Signed Patient: Steven Harding MR#: [id number] : 1940 Acct:[id number] Age/Sex: 83 / F Adm Date: 3 Loc: Room: [address] [place] [address] Type: ADM IN Attending Dr: Sima Hdz [...] negative unless noted below or in HPI [facility] Medical History Aneurysm Aortic. Being monitored. 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 TSH was suppressed on [place] [facility] and has been checked twice with [...] <Electronically signed by Sima Hdz MD> 03/12/231948 [facility] Work Phone: 1(173) 957-967009-26-2023 Discharge summary Author Chuck [facility] March 07, 2023 9:30am Note Date/Time March 07, 2023 9:30am [facility] [address] [place] [address] Discharge Summary Signed Patient: Steven Harding MR#: [id number] : 1940 Acct:[id number] Age/Sex: 83 / F Adm Date: 3 Loc: Room: [address] [place] [address]: Chuck Chacon MD Copies to: [...] been attempted on scopolamine patch, and her contact lens manufacturer had decreased herlosartan dose. She presented again [...] follow-up with her primary care physician and contact lens manufacturer as an outpatient for further management. She may be reintroduced to some of her cardioprotective antihypertensives in the future if deemed reasonable by her contact lens manufacturer and primary care physician. 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 Thyroid] 60 mg tablet 60 mg PO [...] DAILY PRN (Reason: INSTRUCTED) Follow Up: Priyanka Peuntes MD [Primary Care Provider] - 03/14/23 9:30 am (You have been scheduled for a follow up appointment for the following date and time, please call to reschedule if needed.) Documented By: Chuck Chacon MD 3 22 Signed By: <Electronically signed by Chuck Chacon MD> 03/07/23 0930 [facility] Work Phone: 1(642) 437-241709-25-2023 Progress note Author Chuck Chacon [facility] March 06, 2023 1:51pm Note Date/Time March 06, 2023 1:38pm [facility] [address] [place] [address] Hospitalist Progress Note Signed Patient: Steven Harding MR#: [id number] : 1940 Acct:[id number] Age/Sex: 83 / F Adm Date: 3 Loc: Room: [address] [place] [address] Type: ADM INOo Attending Dr: Chuck Chacon [...] 1,000 Ml IV 03/07/23 07:49 60 mls/hr .[id number] YVROSE Administration Insulin Aspart 0 units 03/06/23 [...] be improved from previous assessment during patient's KS -We will trend orthostatic vital signs -Monitor on telemetry for at least 24 hours -Continue metoprolol, continue to hold losartan, spironolactone and nifedipine for now -May consider restarting low doses in the a.m.-patient has lost close to 60 pounds since her KS-likely that BP medications are more potent -PT/OT [...] signed by Chuck Chacon MD> 03/06/23 1351 [facility] Work Phone: 1(438) 444-305709-25-2023 History and physical note Author Jemal Jones [facility] March 05, 2023 11:19pm Note Date/Time March 05, 2023 10:21pm [facility] [address] [place] [address] Hospitalist H&P Signed Patient: Steven Harding MR#: [id number] : 1940 Acct:[id number] Age/Sex: 83 / F Adm Date: 3 Loc: Room: [address] [place] [address] Type: ADM INOo Attending Dr: Jemal Jones [...] current visual changes, headache. Noted that her contact lens manufacturer has recently decreased her losartan due to [...] except as mentioned elsewhere in the documentation [facility] Medical History Aneurysm Aortic. Being monitored. 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) 60 mg PO BID 01/18/22 [History [...] % (Auto) 14.7 % (.) 03/05/23 18:07 [place] % (Auto) 5.4 % (.) 03/05/23 18:07 Eos % (Auto) 2.8 % (.) 03/05/23 18:07 Baso % (Auto) 0.5 % (.) 03/05/23 18:07 Nucleat RBC Rel Count 0.1 /100 WBC (0-0.5) 03/05/23 18:07 Neut # (Auto) 8.7 x10E3/uL (1.8-7.7) H 03/05/23 18:07 Lymph # (Auto) 1.7 x10E3/uL (1.00-4.8) 03/05/23 18:07 [place] # (Auto) 0.6 x10E3/uL (0.0-0.8) 03/05/23 18:07 [...] 21 05 Signed By: <Electronically signed by Jemla Jones MD> 03/05/23 2316 [facility] Work Phone: 1(575) 894-727508-25-[address] Progress note Author Wiley Beal [facility] January 20, 2022 1:31pm Note Date/Time January 20, 2022 1: 31pm [facility] [address] [place] [address] Hospitalist Progress Note Signed Patient: Steven Harding MR#: [id number] : 1940 Acct:[id number] Age/Sex: 81 / F Adm Date: 2 Loc: Room: [address] [place] [address] Type: ADM IN Attending Dr: Wiley Beal [...] of care and confirmed it with the resident/student/BRIDGE PAINTER HELPER. Patient was seen and examined at bedside [...] <Electronically signed by Wiley Beal MD> 01/20/22 [facility] Work Phone: 1(847) 614-990008-11-2022 Procedure [facility]08-10-2022 Procedure [facility]08-10-2022 Progress note Author Wiley Beal [facility] January 19, 2022 1:35pm Note Date/Time January 19, 2022 1: 35pm [facility] [address] [place] [address] Hospitalist Progress Note Signed Patient: Steven Harding MR#: [id number] : 1940 Acct:[id number] Age/Sex: 81 / F Adm Date: 2 Loc: Room: [address] [place] [address] Type: ADM IN Attending Dr: Wiley Beal [...] pain. [facility]. he pain is much better CXR [facility] ED reported as no acute cardiopulmonary abnormality EKG [facility] ED (i personally reviewed it) shows NSR@90 bpm no significant acute changes nitro patch(started in [facility] ED) Morphine prn Telemetry Antiplatelet: Aspirin Anticoagulation: Heparin Drip (started in [place] ED) Start Beta sarbjit therapy Serial EKGs [...] bedside Documented By: Wiley Beal MD 01/19/22 894 Signed By: <Electronically signed by Wiley Beal MD> 01/19/22 5536 [facility] Work Phone: 1(497) 812-573908-10-2022 Consult note Author Yassine Dougherty [facility] January 19, 2022 12:38pm Note Date/Time January 19, 2022 12 :25pm [facility] [address] [place] [address] Cardiology Consult Note Signed with Addenda Patient: Steven Harding MR#: [id number] : 1940 Acct:[id number] Age/Sex: 81 / F Adm Date: 2 Loc: 4 Room: [id number] Type: ADM IN Attending Dr: Wiley Beal [...] Confirmed 01/18/22] thyroid (pork) 60 mg tablet (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 PAINTER HELPER Thyroid) 60 mg PO DAILY 01/18/22 [History [...] x10E3/uL Lymph # (Auto) 1.5 (1.00-4.8) x10E3/uL [place] # (Auto) 0.4 (0.0-0.8) x10E3/uL Eos # [...] <Electronically signed by MD Yassine Dougherty> 01/19/22 4011 [facility] Work Phone: 1(231) 822-116608-10-2022 History and physical note Author Justa Westfall [facility] January 19, 2022 7:35am Note Date/Time January 18, 2022 11: 29pm [facility] [address] [place] [address] Hospitalist H&P Signed Patient: Steven Harding MR#: [id number] : 1940 Acct:[id number] Age/Sex: 81 / F Adm Date: 2 Loc: Room: [address] [place] [address] Type: ADM IN Attending Dr: Justa Westfall MD Copies to: MD Justa Santos MD~ [facility] DATE OF EXAMINATION: 01/18/22 HISTORY OF PRESENT ILLNESS: This is a pleasant 81F with PMH of HTN, PAD(s/p stenting), Prediabetes, Hypothyroidism who p/w chest pain to the [facility] and transferred for the evaluation [...] Confirmed 01/18/22] thyroid (pork) 60 mg tablet (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 [facility]. he pain is much better CXR [facility] ED reported as no acute cardiopulmonary abnormality EKG [facility] ED (i personally reviewed it) shows NSR@90 bpm no significant acute changes nitro patch(started in [place] ED) Morphine prn Telemetry Antiplatelet: Aspirin Anticoagulation: Heparin Drip (started in [place] ED) Start Beta sarbjit therapy Serial EKGs [...] bedside Documented By: Justa Westfall MD 01/18/22 0637 Signed By: <Electronically signed by Justa Westfall MD> 01/19/22 0336 [facility] Work Phone: 1(952) 285-689307-23-2022 Evaluation note* Encounter Date Diagnosis Assessment Notes [...] worsening symptoms or concerns. You may use [id number] lidocaine gel to the rash for comfort. Patient reports her contract accountant is Dr. Lenz, she will follow-up with them on Monday. [facility] Other 03-15-2022 History of Present illness Narrative* [...] and importance of staying active and exercise [facility] 250 DO Work Phone: Discharge summary Author Wiley Beal [facility] January 22, 2022 4:43pm Note Date/Time January 21, 2022 1: 46pm [facility] [address] [place] [address] Discharge Summary Signed Patient: Steven Harding MR#: [id number] : 1940 Acct:[id number] Age/Sex: 81 / F Adm Date: 2 Loc: Room: [address] [place] [address]: Wiley Beal MD Copies to: [...] was anticoagulated with heparin, taken to the [facility]. On January 19, she was found to [...] % (Auto) 74.5, Lymph % (Auto) 14.2, [place] % (Auto) 6.7, Eos % (Auto) 4.2, Baso % (Auto) 0.4, Neut # (Auto) 6.3, Lymph # (Auto) 1.2, [place] # (Auto) 0.6, Eos# (Auto) 0.4, Baso [...] You are scheduled for STAGED ANGIOPLASTY at [facility] on 02/03/2022 at 1:00pm with Dr Hooks; please check in at 11:00am- follow instructions You are scheduled for COVID testing at [facility] on 02/01/2022 at 10:00am for upcoming Angioplasty. [...] doctor or pharmacist, without first calling the contact lens manufacturer who implanted the stent. If you require [...] weight lifting, stair steppers, etc. until the contact lens manufacturer approves these activities. Check with the contact lens manufacturer on your first follow-up visit. CALL YOUR PHYSICIAN at [phone]: -If bleeding should occur from the catheter insertion site- apply pressure to the site then immediately call us. -Report any fever, redness, drainage, increased swelling, or firmness at the catheter insertion site. Some bruising or slight swelling may be present at thetime of discharge. -Should arm or leg become cold, numb, white, or blue, contact the contact lens manufacturer immediately. -IF you should experience episodes of [...] is recommended. Please call Central Scheduling at [phone] to schedule your appointment.] The attending contact lens manufacturer or [facility] nurse clinician should provide you with specific instructions regarding activity, diet, medications, and further follow up for you. Follow the medication instructions provided on your discharge. If the dosages and instructions on this sheet differ from the dosage and instructions on the bottle, follow the instructions on the bottle. [facility] is not responsible for incorrect prescription [...] tablet 100 mg PO DAILY thyroid (pork) [BRIDGE PAINTER HELPER Thyroid] 60 mg tablet 60 mg PO DAILY Label Comments: TAKE 1 TABLET BY MOUTH TWICE DAILY ON AN EMPTY STOMACH Other Ambulatory Orders: Basic Metabolic Panel (Routine) Timeframe: [id number] Location: Determined by Patient Ordered By: Diony Hooks Follow Up: [facility] [Outside] - 01/27/22 4:00 pm Documented By: Wiley Beal MD 01/21/22 1342 Signed By: <Electronically signed by Wiley Beal MD> 01/22/22 1648 [facility] Work Phone: Discharge summary Author Rufus Ricks [facility] March 14, 2023 3:31pm Note Date/Time March 14, 2023 3: 31pm [facility] [address] [place] [address] Discharge Summary Signed Patient: Steven Harding MR#: [id number] : 1940 Acct:[id number] Age/Sex: 83 / F Adm Date: 3 Loc: Room: [address] [place] [address]: Rufus Ricks DO Copies to: MD Rufus Santos, DO~ Providers Date of Discharge: 03/14/23 Discharging Provider: Rufus Ricks Primary Care Provider: Priyanka Puentes Consults: 03/12/23 [...] DAILY Qty: 30 0RF Held thyroid (pork) [BRIDGE PAINTER HELPER Thyroid] 60 mg tablet 60 mg PO [...] signed by Rufus Ricks DO> 03/14/23 1531 [facility] Work Phone: Evaluation note* Diagnosis Onset Date Resolution Status ACS (acute coronary syndrome) acute Hypertension acute Hypothyroidism acute NSTEMI (non-ST elevated myocardial infarction) acute Peripheral vascular disease acute Prediabetes acute [facility] Work Phone: Evaluation note* Diagnosis Onset Date Resolution Status Dizziness acute [facility] Work Phone: Evaluation note* Diagnosis Onset Date Resolution Status Acute hyponatremia acute Dizziness acute Pre-syncope acute [facility] Work Phone: Evaluation note* Diagnosis Onset Date Resolution Status Acute hyponatremia acute Dizziness acute Pre-syncope acute Acute hyponatremia acute CAD (coronary artery disease) acute Hypertensive urgency acute Hypothyroidism acute [facility] Work Phone: History and physical note Author Sima Hdz [facility] March 12, 2023 7:49pm Note Date/Time March 12, 2023 7: 50pm [facility] [address] [place] [address] Hospitalist H&P Signed Patient: Steven Harding MR#: [id number] : 1940 Acct:[id number] Age/Sex: 83 / F Adm Date: 3 Loc: Room: [address] [place] [address] Type: ADM IN Attending Dr: Sima Hdz [...] negative unless noted below or in HPI [facility] Medical History Aneurysm Aortic. Being monitored. 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 TSH was suppressed on [place] [facility] and has been checked twice with [...] <Electronically signed by Sima Hdz MD> 03/12/231948 [facility] Work Phone: History general Narrative - Reported* Type Description Date Medical History Hypertension Medical History Insulin Resistant Surgical History teeth extraction upper Surgical History skin cancer removal 2018 Hospitalization History see above [facility] Other History of Present illness Narrative* The [...] the patient complains of medication side effects. -[facility] 250 DO Work Phone: History of Present [...] medication regimen. She denies medication side effects. [facility] 600 DO Work Phone: Hisvrik of Present illness Narrative* Patient is here [...] her back in 6 months and follow-up [facility] 250 DO Work Phone: [facility] Work Phone: [facility] Work Phone: [facility] Work Phone: Progress note Author Wiley Beal [facility] January 21, 2022 1:42pm Note Date/Time January 21, 2022 1: 42pm [facility] [address] [place] [address] Hospitalist Progress Note Signed Patient: Steven Harding MR#: [id number] : 1940 Acct:[id number] Age/Sex: 81 / F Adm Date: 2 Loc: Room: [id number] Type: ADM IN Attending Dr: Wiley Beal [...] of care and confirmed it with the resident/student/BRIDGE PAINTER HELPER. Patient was seen and examined at bedside [...] Insuln.Pen SUBCUT 01/19/23 07:59 Not Given TID.WM.HS [facility] Protocol Losartan Potassium 100 mg 01/18/22 23:10 [...] signed by Wiley Beal MD> 01/21/22 1342 [facility] Work Phone: Chief Complaint and Reason for [...] pain. * Patient was recently hospitalized at [facility]. The patient was seen in Cardiology consult with subsequent cardiovascular management by [facility]. Hospitalization records have been reviewed. * Reason for Cardiology Consultation: ACS * Consulting Director Of Audiology: Dr. Dougherty * Cardiovascular testing: Echo, cath with subsequent PCI * Changes to cardiovascular medical regimen at time of discharge: ASA, brilinta, lipitor lopressor, aldactone * Discharge disposition: Home * Reports admit at [facility] d/t 'kidney pain and being dehydrated'. Spironolactone [...] tomorrow * 3. Begin cardiac rehab at [facility] * 4. Lipid profile in 2 months (new statin initiation) * 5. Keep scheduled f/u in 6 weeks to reassess * 6. Obtain CT from [facility] to verify surveillance testing. * 7. RN [...] and content) DATE CREATED AUTHOR 10/18/2022 [facility] DATE CREATED AUTHOR AUTHOR'S ORGANIZ ATION 02/18/2023 [employer] DATE CREATED AUTHOR AUTHOR'S ORGANIZ ATION 03/15/2023 [facility] DATE CREATED AUTHOR AUTHOR'S ORGANIZ ATION 03/18/2023 [facility] DATE CREATED AUTHOR AUTHOR'S ORGANIZ ATION 05/08/2023 [facility] d[facility] Specialists EPIC Goals (unrecognized section [...] BE BASED ON THE PRIMARY CLINICAL RECORDS. [facility] [employer] [facility]. provides no warranty or guarantee of the accuracy or completeness of information in this document.
[2023-06-27 12:15] LABS: Anion Gap 15.5; BUN Creatinine Ratio 15.1; Calcium 8.7 mg/dL (8.5-10.1); Carbon Dioxide 26.4 mmol/L (21.0-32.0); Chloride 96 mmol/L (98-107); Estimated GFR (African America >60 (>=60); Estimated GFR (Non-African Ame 50 (>=60); Glucose 147 mg/dL (74-106); Potassium 3.9 mmol/L (3.5-5.1); Sodium 134 mmol/L (136-145)
[2023-06-27 12:51] LABS: Creatinine Urine Random 56.97 mg/dL (20.00-300.00)
[2023-06-27 12:53] LABS: Total Volume 24 Hour Urine 1650 mL/24hr
[2023-06-28 04:08] LABS: FSH 36.4 mIU/mL (25.8-134.8)
[2023-06-28 13:08] LABS: ACTH, Plasma 20.5 pg/mL (7.2-63.3)
== END 2023-06-27 10:43 | disposition home or self-care (01) ==
LOC: LAB 10:42
PROVIDERS: PCP Family Medicine; Visit Provider Internal Medicine
DX: R89.1 Abnormal level of hormones in specimens from other organs, systems and tissues (principal); E03.9 Hypothyroidism, unspecified; R53.83 Other fatigue
CPT/HCPCS: 36415; 80048; 82024; 82530; 82533; 82570; 83001; 83002; 84146

== ENCOUNTER 2023-07-21 13:47 | Outpatient (OUT) | payer MEDICARE, OTHER, SELFPAY ==
[2023-07-21 14:50] LABS: Estimated Average Glucose 111 mg/dL; Glycohemoglobin A1C 5.5 % (4.5-6.2)
== END 2023-07-21 13:48 | disposition home or self-care (01) ==
LOC: LAB 13:48
PROVIDERS: PCP Family Medicine; Visit Provider Family Medicine
DX: R73.02 Impaired glucose tolerance (oral) (principal)
CPT/HCPCS: 36415; 83036

== ENCOUNTER 2023-08-08 10:51 | Outpatient (OUT) | payer MEDICARE, OTHER, SELFPAY ==
[2023-08-08 12:03] LABS: Thyroid Stimulating Hormone 0.144 uIU/mL (0.358-3.740)
[2023-08-08 12:36] LABS: Free T4 1.66 ng/dL (0.76-1.46)
== END 2023-08-08 10:52 | disposition home or self-care (01) ==
LOC: LAB 10:52
PROVIDERS: PCP Family Medicine; Visit Provider Family Medicine
DX: E03.9 Hypothyroidism, unspecified (principal)
CPT/HCPCS: 36415; 84439; 84443

== ENCOUNTER 2024-01-18 11:03 | Outpatient (OUT) | payer MEDICARE, OTHER, SELFPAY ==
--- OUTSIDE RECORDS SUMMARY | 2024-01-18 11:14 | XMS_ITS | CCD ---
Author Organization [facility] Care Team Providers Care Association Executive Name Role Phone Eva Panda Unavailable MD Priyanka Puentes Primary Care Provider MD Justa Westfall Admit Provider MD Wiley Beal Attending Provider DEONTE Monzon Other Provider Unavailable DO Isaiah Cordova Other Provider [phone] MD Vik Segura Other Provider [phone] MD Moshe Hernandez Other Provider MD Karli Dougherty Other Provider [phone] MD Anatoly Massey Other Provider FRANCOIS Mercado Other Provider MD Almita Asif Other Provider MD Stuart Levineammprachi Thompson Other Provider MD Lydia Kern Other Provider MD Diony Hooks Attending Provider [phone] Priyanka Puentes Unavailable Unavailable Unavailable DR ANUM WOODY Admitting Unavailable DHAVAL ., DR MATHEW Consulting Unavailable DR ANUM WOODY Attending Unavailable DHAVAL ., DR MATHEW Primary Care Unavailable HEMEYER ., DR MATHEW Admitting Unavailable HEMEBUD ., DR MATHEW Attending Unavailable HEMEBUD ., DR MATHEW Consulting Unavailable DHAVAL ., DR MATHEW Primary Care Unavailable DHAVAL ., DR MATHEW Primary Care Unavailable KHANH PIRES Consulting Unavailable KHANH PIRES Admitting Unavailable PRANAY, KHANH Attending Unavailable HEMEYER ., DR MATHEW Primary Care Unavailable PRANAY, KHANH Attending Unavailable PRANAY, KHANH Consulting Unavailable PRANAY, KHANH Admitting Unavailable HEMEYER ., DR MATHEW Primary Care Unavailable PRANAY, KHANH Consulting Unavailable PRANAY, KHANH Admitting Unavailable PRANAY, KHANH Attending Unavailable OREN ., BRITTNI Consulting Unavailable HEMEYER ., DR MATHEW Primary Care Unavailable AMINA ., ОЛЕГ Admitting Unavailable AMINA ., ОЛЕГ Attending Unavailable NICOLE SANDERS Consulting Unavailable HUNG, DR RAQUEL Reese Consulting [...] Unavailable MD Priyanka Puentes Primary Care Provider [phone] MD Monique Tierney Emergency Provider MD Jemal Jones Admit Provider MD Jemal Jones Attending Provider MD Chuck Chacon Attending Provider SHANTEL Dhillon Emergency Provider MD Sima Hdz Admit Provider MD Sima Hdz Attending Provider [facility] Rufus Bravo Attending Provider Dhaval, Dr. Priyanka Ramey Primary Care Unava ilable Karli Dougherty Attending Unavailable Hung, MsJanay Batista Referring Goyo Puentes, Dr. Priyanka Ramey Primary Care Unava ilable Karli Dougherty Referring Unavailable Karli Dougherty Attending Unavailable Dhaval, Dr. Priyanka Ramey Primary Care Unava ilable Hung, Ms. Khanh Batista Attending Unavai lable Dianayer, Dr. Priyanka Ramey Primary Care Lilliana Persaud, Ms. Khanh Batista Referring Priyanka Conway Primary Care Unavailable Chuck Chacon Attending UnavailJemal Carmona Admitting Unavailable Sima Hdz Admitting Unavailable Priyanka Puentes Primary Care Unavailable Rufus Ricks Attending Priyanka Taylor MD Unavailable Priyanka Puentes MD Primary Care Provider [phone] Karli Dougherty MD Unavailable [phone] Priyanka Puentes MD Primary Care Provider KARLI DOUGHERTY Attending PRIYANKA Taylor Primary Care Unavailab PRIYANKA Toribio Attending PRIYANKA Taylor Attending PRIYANKA Taylor Attending PRIYANKA Taylor Attending PRIYANKA Taylor Attending Unavailable Allergies Allergy Classification Reported Allergen(s) Allergy Type Date of Onset Reaction(s) Facility (1 source) diphenhydrAMINE Drug Allergy anaphylaxis [facility] Other (6 sources) Ticagrelor; Translations: [Brilinta TABS] Drug Allergy 03-17-20 23 [facility] (4 sources) Codeine; Translations: [CODEINE] Drug Allergy 01-18-20 23 [place] (1 source) Penicillin Drug Allergy 01-19-20 22 [facility] (2 sources) Ticagrelor; Translations: [TICAGRELOR] Drug Allergy 01-25-20 22 [facility] (1 source) Antihistamines - Ethanolamine Drug allergy (disorder) 01-27-20 22 [facility] (2 sources) Antihistamines Allergy to substance 03-12-20 [facility] (1 source) Calcium Citrate Drug Allergy 01-18-20 23 [facility] (1 source) Cephalexin Drug Allergy 01-18-20 23 Hives [facility] (1 source) Ciprofloxacin Drug Allergy 01-18-20 23 Hives [facility] (3 sources) Clindamycin; Translations: [CLINDAMYCIN] Drug Allergy 01-18-20 Diarrhea [facility] (2 sources) Codeine Drug Allergy 01-18-20 Unknown [facility] (1 source) diphenhydrAMINE Drug Allergy 01-18-20 [facility] (2 sources) Minocycline; Translations: [MINOCYCLINE] Drug Allergy 01-18-20 Diarrhea [facility] (1 source) Erythromycin Base Drug Allergy 01-18-20 Hives [facility] (1 source) Minocycline Drug Allergy 01-18-20 Diarrhea [facility] Work Phone: Medications Current Medications Medication Drug Class(es) Dates Sig (Normalized) Sig (Original) albuterol 0.83 mg/ml inhalation solution (8 sources) beta2-Adrenergic Agonist Start: 07-05-2023 End: 07-04-2024 albuterol (2.5 MG/3ML) 0.083% nebulizer solution Indications: 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 0 Active Ventolin HFA 108 (90 Base) MCG/ACT Inhalation Aerosol Solution USE DIRECTED Quantity: 0 Refills: 0 Ordered: 17-Mar-2022 DO Active amLODIPine 5 mg oral tablet (3 sources) Dihydropyridine Calcium Channel Sarbjit Start: 03-14-2023 End: 08-11-2023 take 1 tablet by mouth in the morning amLODIPine (Norvasc) 5 MG tablet Indications: Benign essential hypertension (CMS/HCC) Take 1 tablet (5 mg) by mouth in the morning. 30 tablet 0 07/12/2023 08/11/2023 Active aspirin 81 mg chewable tablet (16 sources) Platelet Aggregation Inhibitor, Nonsteroidal Anti-inflammatory Drug Start: 01-21-2022 take 1 tablet by mouth once daily Aspirin (Children's Aspirin) 81 mg Tablet,Chewable Active 81 MG PO Daily 0 January 21, 2022 12:00am take 1 tablet by mouth once hattie y aspirin 81 mg EC tablet Take 1 tablet (81 mg) by mouth once daily. 0 Active atorvastatin 80 mg oral tablet (17 sources) HMG-CoA Reductase Inhibitor Start: 08-31-2023 take 1 tablet by mouth once daily at bedtime atorvastatin (Lipitor) 80 mg tablet Indications: Mixed hyperlipidemia Take 1 tablet (80 mg) by mouth once daily at bedtime. 90 tablet 3 08/31/2023 Active Start: 01-21-2022 End: 08-31-2023 take 1 tablet by mouth once daily at bedtime atorvastatin (Lipitor) 80 mg tablet Indications: Mixed hyperlipidemia Take 1 tablet (80 mg) by mouth once daily at bedtime. 90 tablet 3 05/31/2023 08/31/2023 Discontinued (Reorder) busPIRone hydrochloride 5 mg oral tablet (3 sources) End: 08-31-2023 take 1 tablet by mouth twice daily as needed busPIRone (Buspar) 5 mg tablet Take 1 tablet (5 mg) by mouth 2 times a day. As needed 0 08/31/2023 Discontinued (Discontinued by another clinician) ciprofloxacin 0.003 mg/mg ophthalmic ointment (1 source) Quinolone Antimicrobial Start: 01-01-2022 Ciloxan 0.3 % 1 applicatiion right lower eyelid Twice a day for 7 days Dec, Active clopidogrel 75 mg oral tablet (13 sources) P2Y12 Platelet Inhibitor Start: 02-15-2022 take 75 mg by mouth once daily Clopidogrel Active 75 MG PO Daily March 05, 2023 12:00am Start: 02-15-2022 take 4 tablets by [facility] once daily Clopidogrel Bisulfate 75 MG Oral Tablet Take 4 tablets (300mg) on day #1 then take one tablet daily Quantity: 30 Refills: 11 Ordered: 15-Feb-2022 Khanh Michael Start : 15-Feb-2022 Active levothyroxine sodium 0.112 mg oral tablet (2 sources) l-Thyroxine Start: 08-08-2023 End: 11-06-2023 take 1 tablet by mouth once daily levothyroxine (Synthroid, Levoxyl) 112 mcg tablet Take 1 tablet (112 mcg) by mouth once daily. 0 08/08/2023 11/06/2023 Active Start: 07-12-2023 End: 10-10-2023 take 1 tablet by mouth before mealtime levothyroxine (Synthroid) 150 MCG tablet Indications: Hypothyroidism, unspecified type (CMS/HCC) Take 1 tablet (150 mcg) by mouth in the morning. Take before meals. 90 tablet 3 07/12/2023 10/10/2023 Active Lisinopril (1 source) Angiotensin Converting Enzyme Inhibitor Lisinopril Active magnesium oxide 400 mg oral tablet (5 sources) Start: End: 4 take 400 mg by mouth once daily Magnesium Oxide Active 400 MG PO Daily March 07, 2023 12:00am metFORMIN hydrochloride 850 mg oral tablet (17 sources) Biguanide Start: 4 take 1 tablet by mouth twice daily at mealtime metFORMIN (Glucophage) 850 mg tablet Take 1 tablet (850 mg) by mouth 2 times a day with meals. 0 08/08/2023 Active Start: 01-18-2022 End: 08-31-2023 take 1 tablet by mouth in the morning metFORMIN (Glucophage) 1000 MG tablet Indications: Impaired glucose tolerance Take 1 tablet (1,000 mg) by mouth in the morning and 1 tablet (1,000 mg) in the evening. Take with meals. 60 tablet 0 07/12/2023 08/11/2023 Active Metformin ER & Diagnostic Test (1 source) Metformin ER & Diagnostic Test Active metoprolol tartrate 25 mg oral tablet (17 sources) beta-Adrenergic Sarbjit Start: 07-12-2023 End: 08-11-2023 take 0.5 tablet by mouth once metoprolol tartrate (Lopressor) 25 MG tablet Indications: Benign essential hypertension (CMS/HCC) Take 0.5 tablets (12.5 mg) by mouth every 12 (twelve) hours 30 tablet 0 07/12/2023 08/11/2023 Active Start: 03-14-2023 take 12.5 mg by mout h twice daily Metoprolol Tartrate Active 12.5 MG PO Twice daily March 14, 2023 12:00am Start: 08-12-2022 End: 03-14-2023 take 25 mg by mouth twice daily Metoprolol Tartrate Discontinued 25 MG PO Twice daily 60 30 January 21, 2022 12:00am March 14, 2023 10:47am naproxen sodium 220 mg oral tablet (1 source) Nonsteroidal Anti-inflammatory Drug take 1 tablet by mouth twice daily as needed naproxen sodium (Aleve) 220 MG tablet Take 220 mg by mouth 2 (two) times a day as needed. 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 1 each 0 07/05/2023 07/04/2024 Active nitroglycerin 0.4 mg sublingual tablet (16 sources) Nitrate Vasodilator Start: nitroglycerin (Nitrostat) 0.[address] 0.4 mg under the tongue. 0 01/21/2022 Active oxybutynin chloride 5 mg oral tablet (20 sources) Cholinergic Muscarinic Antagonist Start: End: take 1 tablet by mouth in the morning oxybutynin (Ditropan) 5 MG tablet Indications: Urge incontinence Take 1 tablet (5 mg) by mouth in the morning and 1 tablet (5 mg) before bedtime. 180 tablet 3 07/12/2023 10/10/2023 Active Start: 11-11-2019 End: 01-18-2022 take 10 mg by mouth before mealtime Oxybutynin Chloride Discontinued 10 MG PO Before meals November 11, 2019 12:00am January 18, 2022 10:08pm take 1 tablet by twice daily oxyBUTYnin Chloride ER 5 MG Oral Tablet Extended Release 24 Hour Take 1 tablet twice daily Quantity: 0 Refills: 0 Ordered: 15-Feb-2022 DO Active Oxybutynin Activ e microencapsulated potassium chloride 20 meq extended release oral tablet (1 source) take 1 tablet by mouth once daily potassium chloride CR 20 mEq ER tablet Take 1 tablet (20 mEq) by mouth once daily. 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 Take before meals. 0 08/31/2023 Discontinued (Discontinued by another clinician) valACYclovir 1000 mg oral tablet (1 source) Herpesvirus Nucleoside Analog DNA Polymerase Inhibitor, Herpes Simplex Virus Nucleoside Analog DNA Polymerase Inhibitor, Herpes Zoster Virus Nucleoside Analog DNA Polymerase Inhibitor Start: 01-01-2022 take 1 tablet by mouth every eight hours valACYclovir HCl 1 GM 1 tablet Orally three times a day for 7 days Dec, Active Vitamin B Complex (1 source) take 1 tablet by mouth once daily vitamin B complex tablet Take 1 tablet by mouth once daily. 0 Active Completed/Discontinued Medications Medication Drug Class(es) Dates Sig (Normalized) Sig (Original) clindamycin 300 mg oral capsule (7 sources) [...] 10:08pm losartan potassium 50 mg oral tablet (15 sources) Angiotensin 2 Receptor Sarbjit Start: 03-02-2023 End: 08-31-2023 take 1 tablet by mouth once daily Losartan Potassium 50 MG Oral Tablet TAKE 1 TABLET DAILY. Quantity: 90 Refills: 3 Ordered: 02-Mar-2023 Karli Dougherty MD Start : 02-Mar-2023 Active new [...] osmotic 24 hr extended release oral tablet (15 sources) Dihydropyridine Calcium Channel Sarbjit Start: 01-21-2022 End: 03-07-2023 take 60 mg by mouth once daily Nifedipine Discontinued 60 MG PO Daily 30 January 21, 2022 12:00am March 07, 2023 9:21am End: 08-31-2023 take 1 tablet by mouth once daily before mealtime NIFEdipine ER (Adalat CC) 60 mg 24 hr tablet Take 1 tablet (60 mg) by mouth once daily in the morning. Take before meals. Do not crush, chew, or split. 0 08/31/2023 Discontinued (Discontinued by another clinician) olmesartan medoxomil 40 mg oral tablet (7 sources) Angiotensin 2 Receptor Sarbjit Start: 11-11-2019 End: 01-18-2022 Olmesartan Discontinued TABLET November 11, 2019 12:00am January 18, 2022 10:08pm 72 hr scopolamine 0.0139 mg/hr transdermal system (2 sources) Anticholinergic Scopolamine 1 MG/3DAYS Transdermal Patch 72 Hour APPLY 1 PATCH EVERY 3 DAYS Quantity: 0 Refills: 0 Ordered: 16-Feb-2023 DO Active spironolactone 25 mg oral tablet (17 sources) Aldosterone Antagonist Start: 03-05-2023 End: 03-07-2023 take 25 mg by mouth once daily Spironolactone Discontinued 25 MG PO Daily March 05, 2023 12:00am March 07, 2023 9:21am Start: 01-21-2022 End: 08-31-2023 take 25 mg by mouth once daily Spironolactone Discontinued 25 MG PO Daily 30 January 21, 2022 12:00am February 03, [...] Active Problems Problem Classification Problem Date Documented Date Episodic/Chronic Acute myocardial infarction (11 sources) Myocardial infarction; Translations: [Non-ST elevation (NSTEMI) myocardial infarction] Onset: 01-20-2022 01-18-2022 Chronic Aortic; peripheral; and visceral artery aneurysms (1 source) Aneurysm of infrarenal abdominal aorta ; Translations: [Infrarenal abdominal aortic aneurysm, without rupture] Onset: 01-17-2023 01-17-2023 Chronic Asthma (1 source) Allergic asthma; Translations: [Unspecified asthma, uncomplicated] Onset: 01-17-2023 01-17-2023 Chronic Cataract (2 sources) Bilateral pseudophakia; Translations: [Presence of intraocular lens] Onset: 01-17-2023 01-17-2023 Chronic Chronic kidney disease (2 sources) Chronic kidney disease, stage 2 (mild); Translations: [Chronic kidney disease stage 2] Onset: 08-16-2022 01-17-2023 Chronic Chronic obstructive pulmonary disease and bronchiectasis (1 source) Simple chronic bronchitis; Translations: [Simple chronic bronchitis] Onset: 01-17-2023 01-17-2023 Chronic Conditions associated with dizziness or vertigo (9 sources) Dizziness; Translations: [Dizziness and giddiness] Onset: 03-05-2023 03-05-2023 Episodic Coronary atherosclerosis and other heart disease (20 sources) Coronary arteriosclerosis; Translations: [Atherosclerotic heart disease of [place] coronary artery without angina pectoris] Onset: 06-14-2022 02-03-2022 Chronic Coronary atherosclerosis and other heart disease (12 sources) Patient post percutaneous transluminal coronary angioplasty; Translations: [Percutaneous transluminal coronary angioplasty status] Onset: 01-17-2023 01-17-2023 Episodic Diabetes mellitus without complication (1 source) Type 2 diabetes mellitus without complications; Translations: [TYPE 2 DM WITHOUT COMPLICATIONS] Onset: 01-20-2022 Chronic Diseases of white blood cells (1 source) Elevated white blood cell count, unspecified; Translations: [ELEVATED WHITE BLOOD CELL COUNT UNS] Onset: 02-02-2022 Chronic Disorders of lipid metabolism (13 sources) Mixed hyperlipidemia; Translations: [Mixed hyperlipidemia] Onset: 08-16-2022 01-17-2023 Chronic Esophageal disorders (1 source) Gastroesophageal reflux disease without esophagitis; Translations: [Gastro-esophageal reflux disease without esophagitis] Onset: 01-17-2023 01-17-2023 Chronic Essential hypertension (20 sources) Hypertensive disorder; Translations: [Essential (primary) hypertension] Onset: 01-20-2022 11-11-2019 Chronic Fluid and electrolyte disorders (10 sources) Hypo-osmolality and hyponatremia; Translations: [Acute hyponatremia] Onset: 02-02-2022 03-05-2023 Episodic Genitourinary symptoms and ill-defined conditions (1 source) Urge incontinence of urine; Translations: [Urge incontinence] Onset: 01-17-2023 01-17-2023 Chronic Hypertension with complications and secondary hypertension (10 sources) Hypertensive chronic kidney disease with stage 1 through stage 4 chronic kidney disease, or unspecified chronic kidney disease; Translations: [Hypertensive urgency ] Onset: 08-15-2022 Chronic Malaise and fatigue (6 sources) Chronic fatigue, unspecified; Translations: [Fatigue] Onset: 04-12-2022 Chronic Nutritional deficiencies (1 source) Vitamin D deficiency; Translations: [Vitamin D deficiency, unspecified] Onset: 01-17-2023 01-17-2023 Chronic Osteoarthritis (2 sources) Arthritis of left knee; Translations: [Unilateral primary osteoarthritis, left knee] Onset: 07-12-2016 01-17-2023 Chronic Other and ill-defined heart disease (1 source) Diastolic dysfunction; Translations: [Other ill-defined heart diseases] Onset: 01-17-2023 01-17-2023 Chronic Other circulatory disease (1 source) History of endovascular stent graft for repair of abdominal aortic aneurysm; Translations: [Presence of other vascular implants and grafts] Onset: 01-17-2023 01-17-2023 Chronic Other circulatory disease (1 source) History of insertion of iliac stent; Translations: [Presence of other vascular implants and grafts] Onset: 01-17-2023 01-17-2023 Chronic Other circulatory disease (3 sources) Orthostatic hypotension; Translations: [Orthostatic hypotension] 03-07-2023 Episodic Other circulatory disease (1 source) Orthostatic hypotension; Translations: [Orthostatic hypotension] Onset: 03-05-2023 Episodic Other ear and sense organ disorders (1 source) Disorder of external ear; Translations: [Unspecified otitis externa, left ear] Onset: 01-17-2023 01-17-2023 Chronic Other lower respiratory disease (1 source) Pulmonary granuloma; Translations: [Pulmonary fibrosis, unspecified] Onset: 01-17-2023 01-17-2023 Chronic Other lower respiratory disease (1 source) Post-inflammatory pulmonary fibrosis; Translations: [Pulmonary fibrosis, unspecified] Onset: 03-26-2016 01-19-2023 Chronic Other lower respiratory disease (1 source) Dyspnea on exertion; Translations: [Other forms of dyspnea] 08-31-2023 Episodic Other lower respiratory disease (2 sources) Other forms of dyspnea; Translations: [Other forms of dyspnea] Onset: 03-17-2023 Episodic Other nervous system disorders (1 source) Chronic pain; Translations: [Other chronic pain] Onset: 01-17-2023 01-17-2023 Chronic Other nutritional; endocrine; and metabolic disorders (4 sources) Obesity; Translations: [Obesity, unspecified] Chronic Other nutritional; endocrine; and metabolic disorders (1 source) Obese class I; Translations: [Obesity, unspecified] Onset: 01-17-2023 01-17-2023 Chronic Other nutritional; endocrine; and metabolic disorders (5 sources) Overweight in adulthood with body mass index of 25 or more but less than 30; Translations: [Overweight] Onset: 08-31-2023 08-31-2023 Episodic Other nutritional; endocrine; and metabolic disorders (2 sources) Body mass index (BMI) 27.0-27.9, adult; Translations: [Body mass index (BMI) 27.0-27.9, adult] Onset: 08-31-2023 Episodic Other screening for suspected conditions (not mental disorders or infectious disease) (5 sources) Echocardiogram abnormal; Translations: [Nonspecific (abnormal) findings on radiological and other examination of other intrathoracic organs] Onset: 07-20-2022 Episodic Peripheral and visceral atherosclerosis (20 sources) Peripheral vascular disease; Translations: [Peripheral vascular disease, unspecified] Onset: 01-20-2022 01-19-2022 Chronic Pulmonary heart disease (1 source) Pulmonary hypertension; Translations: [Pulmonary hypertension, unspecified] Onset: 01-17-2023 01-17-2023 Chronic Retinal detachments; defects; vascular occlusion; and retinopathy (2 sources) Epiretinal membrane of right eye; Translations: [Puckering of macula, right eye] Onset: 01-17-2023 01-17-2023 Chronic Screening and history of mental health and substance abuse codes (13 sources) Ex-smoker; Translations: [Personal history of tobacco use] Onset: 03-25-2016 01-19-2023 Episodic Comment on above: nicotine lozenges; Syncope (12 sources) Near syncope; Translations: [Syncope and collapse] Onset: 02-02-2022 11-11-2019 Episodic Thyroid disorders (14 sources) Hypothyroidism; Translations: [Hypothyroidism, unspecified] Onset: 03-05-2023 01-18-2022 Chronic Unclassified (1 source) CONTACT W/AND (SUSP) EXPOS COVID-19; Translations: [CONTACT W/AND (SUSP) EXPOS COVID-19] Onset: 02-02-2022 Past or Other Problems Problem Classification Problem Date Documented Da te Episodic/Chronic Blindness and vision defects (1 source) Presbyopia; Translations: [Presbyopia] Onset: 01-17-2023 01-17-2023 Episodic Diabetes mellitus without complication (12 sources) Prediabetes; Translations: [Prediabetes] Onset: 08-16-2022 01-18-2022 Episodic Heart valve disorders (1 source) Heart murmur; Translations: [Cardiac murmur, unspecified] Onset: 01-17-2023 01-17-2023 Episodic Mood disorders (1 source) Mood disorders Onset: 02-15-2022 07-25-2022 Noninfectious gastroenteritis (1 source) Noninfective gastroenteritis and colitis, unspecified; Translations: [NONINFECTIVE GE AND COLITIS UNS] Onset: 02-02-2022 Episodic Nonspecific chest pain (3 sources) Chest pain, unspecified; Translations: [CHEST PAIN UNSPECIFIED] Onset: 01-18-2022 Episodic Other aftercare (1 source) Other [facility] (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; Translations: [OTH SMALL 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 OPERATOR CURRENT DRUG THERAPY] Onset: 02-02-2022 Episodic Other aftercare (1 source) halfway (current) use of oral hypoglycemic drugs; Translations: [SMALL EQUIPMENT OPERATOR USE ORAL HYPOGLYCEMIC DX] Onset: 02-02-2022 Episodic Other aftercare (1 source) 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; Translations: [SMALL EQUIPMENT OPERATOR CURRENT USE OF ASPIRIN] Onset: 01-20-2022 Episodic Other aftercare (1 source) Polypharmacy ; Translations: [Other mcc (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] Onset: 08-07-2020 01-19-2023 Episodic Other bone disease and musculoskeletal deformities (1 source) Osteopenia; Translations: [Other specified disorders of bone density and structure, unspecified site] Onset: 01-17-2023 01-17-2023 Episodic Other circulatory disease (1 source) Hypotension, unspecified; Translations: [HYPOTENSION UNSPECIFIED] Onset: 02-02-2022 Episodic Other circulatory disease (1 source) H/O: cardiovascular disease; Translations: [Personal history of other diseases of the circulatory system] Onset: 04-25-2016 01-19-2023 Episodic Other connective tissue disease (1 source) Abnormal posture; Translations: [Abnormal posture] Onset: 01-17-2023 01-17-2023 Episodic Other connective tissue disease (1 source) Left rotator cuff syndrome; Translations: [Unspecified rotator cuff tear or rupture of left shoulder, not specified as traumatic] Onset: 01-17-2023 01-17-2023 Episodic Other eye disorders (1 source) Disorder of lacrimal system; Translations: [Disorder of lacrimal system, unspecified] Onset: 01-17-2023 01-17-2023 Episodic Other gastrointestinal disorders (3 sources) Diarrhea, unspecified; Translations: [DIARRHEA UNSPECIFIED] Onset: 01-27-2022 Episodic Other hematologic conditions (1 source) Other specified abnormalities of plasma proteins; Translations: [OTH SPEC ABNORM PLASMA PROTEINS] Onset: 02-02-2022 Episodic Other lower respiratory disease (8 sources) Dyspnea; Translations: [Other respiratory abnormalities] Onset: 03-17-2023 03-17-2023 Episodic Other lower respiratory disease (1 source) Shortness of breath; Translations: [SHORTNESS OF BREATH] Onset: 02-02-2022 Episodic Other non-epithelial cancer of skin (1 source) Basal cell carcinoma of ear; 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] Onset: 01-17-2023 01-17-2023 Episodic Other nutritional; endocrine; and metabolic disorders (1 source) Morbid obesity; Translations: [Morbid (severe) obesity due to excess calories] Onset: 04-25-2016 Resolved: 05-02-2023 05-02-2023 Chronic Other skin disorders (1 source) Keloid scar; Translations: [Hypertrophic scar] Onset: 01-17-2023 01-17-2023 Episodic Residual codes; unclassified (1 source) Other specified postprocedural states; Translations: [OTH SPECIFIED POSTPROCEDURAL STATES] Onset: 02-02-2022 Episodic Thyroid disorders (6 sources) Sick-euthyroid syndrome; Translations: [Sick-euthyroid syndrome] Onset: 04-15-2022 Resolved: 05-08-2023 Episodic Unclassified (1 source) Onset: 08-31-2023 08-31-2023 Viral infection (1 source) Zoster without complications Onset: 01-01-2022 Resolved: 01-01-2022 Episodic Results Test Name Value Interpretation Reference Range Facility [facility] HEMOGLOBIN A1Con 024 Glucose [Mass/Vol] 111 mg/dL [facility] HbA1c (Bld) [Mass fraction] 5.5 % 4.5 - 6.2 % [facility] Comment on above: ADA RECOMMENDED LIMI T 4.0 - 6.0 ADA THERAPEUTIC TARGET < 7.0 ACTION SUGGESTED > 7.0 [facility] Basic Metabolic Panelon Anion gap [Moles/Vol] 9.8 mmol/L Normal 6.0-15.0 [facility] Comment on above: Performed By: #### B WATER SUPPLY TECHNICIAN, BMP, PT, PTT, HS TROP, CBC, TSH3, CK #### [facility] [address] Calcium [Mass/Vol] 8.3 mg/dL Low 8.6-10.3 [facility] Comment on above: Performed By: #### B WATER SUPPLY TECHNICIAN, BMP, PT, PTT, HS TROP, CBC, TSH3, CK #### [facility] [address] Chloride [Moles/Vol] 101 mmol/L Normal 98-107 [facility] Comment on above: Performed By: #### B WATER SUPPLY TECHNICIAN, BMP, PT, PTT, HS TROP, CBC, TSH3, CK #### [facility] [address] CO2 [Moles/Vol] 23.6 mmol/L Normal 21.0-31.0 [facility] Comment on above: Performed By: #### B WATER SUPPLY TECHNICIAN, BMP, PT, PTT, HS TROP, CBC, TSH3, CK #### [address] Creatinine [Mass/Vol] 0.70 mg/dL Normal 0.60-1.20 [facility] Comment on above: Performed By: #### B WATER SUPPLY TECHNICIAN, BMP, PT, PTT, HS TROP, CBC, TSH3, CK #### [address] Creatinine Clr Calc Pharmacy 48.88 [facility] Comment on above: Performed By: #### B WATER SUPPLY TECHNICIAN, BMP, PT, PTT, HS TROP, CBC, TSH3, CK #### [address] GFR/1.73 sq M.predicted MDRD (S/P/Bld) [Vol rate/Area] mL/min/{1.73_m2} [facility] Comment on above: Performed By: #### B WATER SUPPLY TECHNICIAN, BMP, PT, PTT, HS TROP, CBC, TSH3, CK #### [address] Glucose [Mass/Vol] 84 mg/dL Normal 70-100 [facility] Comment on above: Result Comment: [place] Glucose Reference Range is dependent on time and content of last meal. Glucose of more than 200 mg/dL in a nonstressed, ambulatory subject supports the diagnosis of Diabetes Mellitus. ADA recommended reference range Performed By: #### B WATER SUPPLY TECHNICIAN, BMP, PT, PTT, HS TROP, CBC, TSH3, CK #### [facility] [address] Potassium [Moles/Vol] 4.4 mmol/L Normal 3.5-5.1 [facility] Comment on above: Performed By: #### B WATER SUPPLY TECHNICIAN, BMP, PT, PTT, HS TROP, CBC, TSH3, CK #### [facility] [address] Sodium [Moles/Vol] 130 mmol/L Low 136-145 [facility] Comment on above: Performed By: #### B WATER SUPPLY TECHNICIAN, BMP, PT, PTT, HS TROP, CBC, TSH3, CK #### [facility] [address] Urea nitrogen [Mass/Vol] 8 mg/dL Normal 7-25 [facility] Comment on above: Performed By: #### B WATER SUPPLY TECHNICIAN, BMP, PT, PTT, HS TROP, CBC, TSH3, CK #### [facility] [address] Calcium [Mass/volume] in Ser um or PlasmaOrdered By: Rufus Ricks on 03-14-2023 Calcium [Mass/Vol] 8.3 mg/dL 8.6-10.3 [facility] Carbon dioxide, total [Moles /volume] in Serum or PlasmaOrdered By: Rufus Ricks on 03-14-2023 CO2 [Moles/Vol] 23.6 mmol/L 21.0-31.0 [facility] Chloride [Moles/volume] in S yamilex or PlasmaOrdered By: Rufus Ricks on 03-14-2023 Chloride [Moles/Vol] 101 mmol/L 98-107 [facility] Creatinine [Mass/volume] in Serum or PlasmaOrdered By: Rufus Ricks on 03-14-2023 Creatinine [Mass/Vol] 0.70 mg/dL 0.60-1.20 [facility] Free T4 (Free Thyroxine)on 1 Free T4 [Mass/Vol] 0.72 ng/dL Normal 0.61-1.12 [facility] Comment on above: Performed By: #### B WATER SUPPLY TECHNICIAN, BMP, PT, PTT, HS TROP, CBC, TSH3, CK #### [facility] [address] Glucose [Mass/volume] in Ser um or PlasmaOrdered By: Rufus Ricks on 03-14-2023 Glucose [Mass/Vol] 84 mg/dL 70-100 [facility] Comment on above: ADA recommended refe rence rangeRandom Glucose Reference Range is dependent on time and content of last meal. Glucose of more than 200 mg/dL in a nonstressed, ambulatory subject supports the diagnosis of Diabetes Mellitus. No Panel InformationOrdered By: Rufus [place] on 03-14-2023 Estimated GFR (CKD-EPI) > 60.0 mL/Min [facility] Creatinine Clearance (Chem 48.88 [facility] Potassium [Moles/volume] in Serum or PlasmaOrdered By: [facility] on 03-14-2023 Potassium [Moles/Vol] 4.4 mmol/L 3.5-5.1 [facility] Serum or plasma anion gap de terminationOrdered By: [facility] on 03-14-2023 Anion gap [Moles/Vol] 9.8 mmol/L 6.0-15.0 [facility] Sodium [Moles/volume] in Ser um or PlasmaOrdered By: [facility] on 03-14-2023 Sodium [Moles/Vol] 130 mmol/L 136-145 [facility] Thyroid Stimulating Hormoneo n 03-14-2023 TSH Qn 0.04 m[IU]/L Low 0.45-5.33 [facility] Comment on above: Result Comment: PERF ORMED BY: [facility] [address] [place] [address] PATHOLOGIST [employer] AXLES INSPECTOR RAQUEL LOPEZ M.D. Performed By: #### B WATER SUPPLY TECHNICIAN, BMP, PT, PTT, HS TROP, CBC, TSH3, CK #### [facility] [address] [place] [address] [place] Thyrotropin [Units/volume] i n Serum or PlasmaOrdered By: Rufus Ricks on 03-14-2023 TSH Qn 0.04 m[IU]/L 0.45-5.33 [facility] Thyroxine (T4) free [Mass/vo lume] in Serum or PlasmaOrdered By: Rufus Ricks on 03-14-2023 Free T4 [Mass/Vol] 0.72 ng/dL 0.61-1.12 [facility] Triiodothyronine (T3) Freeon 03-14-2023 Triiodothyronine (T3) Free 2.85 pg/mL Normal 2.50-3.90 [facility] Comment on above: Result Comment: PERF ORMED BY: [facility] [address] [place] [address] PATHOLOGIST [employer] AX[employer] INSPECTOR RAQUEL LOPEZ M.D. Performed By: #### B WATER SUPPLY TECHNICIAN, BMP, PT, PTT, HS TROP, CBC, TSH3, CK #### [facility] [address] [place] [address] [place] Triiodothyronine (T3) Free [ Mass/volume] in Serum or PlasmaOrdered By: Rufus Ricks on 03-14-2023 Free T3 [Mass/Vol] 2.85 pg/mL 2.50-3.90 [facility] Urea nitrogen [Mass/volume] in Serum or PlasmaOrdered By: Rufus Ricks on 03-14-2023 Urea nitrogen [Mass/Vol] 8 mg/dL 01-03 [facility] Basic Metabolic Panelon 10-0 Anion gap [Moles/Vol] 13.4 mmol/L Normal 6.0-15.0 [facility] Comment on above: Performed By: #### B WATER SUPPLY TECHNICIAN, BMP, PT, PTT, HS TROP, CBC, TSH3, CK #### [facility] [address] [place] [id number] [place] Calcium [Mass/Vol] 9.1 mg/dL Normal 8.6-10.3 [facility] Comment on above: Performed By: #### B WATER SUPPLY TECHNICIAN, BMP, PT, PTT, HS TROP, CBC, TSH3, CK #### [facility] [address] Chloride [Moles/Vol] 93 mmol/L Low 98-107 [facility] Comment on above: Performed By: #### B WATER SUPPLY TECHNICIAN, BMP, PT, PTT, HS TROP, CBC, TSH3, CK #### [address] CO2 [Moles/Vol] 25.0 mmol/L Normal 21.0-31.0 [facility] Comment on above: Performed By: #### B WATER SUPPLY TECHNICIAN, BMP, PT, PTT, HS TROP, CBC, TSH3, CK #### [address] Creatinine [Mass/Vol] 0.88 mg/dL Normal 0.60-1.20 [facility] Comment on above: Performed By: #### B WATER SUPPLY TECHNICIAN, BMP, PT, PTT, HS TROP, CBC, TSH3, CK #### [address] Creatinine Clr Calc Pharmacy 44.44 [facility] Comment on above: Result Comment: PERF ORMED BY: [place] [address] PATHOLOGIST [employer] AX[employer] INSPECTOR RAQUEL LOPEZ M.D. Performed By: #### B WATER SUPPLY TECHNICIAN, BMP, PT, PTT, HS TROP, CBC, TSH3, CK #### [address] GFR/1.73 sq M.predicted MDRD (S/P/Bld) [Vol rate/Area] mL/min/{1.73_m2} [facility] Comment on above: Performed By: #### B WATER SUPPLY TECHNICIAN, BMP, PT, PTT, HS TROP, CBC, TSH3, CK #### [address] Glucose [Mass/Vol] 97 mg/dL Normal 70-100 [facility] Comment on above: Result Comment: [facility] Glucose Reference Range is dependent on time and content of last meal. Glucose of more than 200 mg/dL in a nonstressed, ambulatory subject supports the diagnosis of Diabetes Mellitus. ADA recommended reference range Performed By: #### B WATER SUPPLY TECHNICIAN, BMP, PT, PTT, HS TROP, CBC, TSH3, CK #### [facility] [address] Potassium [Moles/Vol] 4.4 mmol/L Normal 3.5-5.1 [facility] Comment on above: Performed By: #### B WATER SUPPLY TECHNICIAN, BMP, PT, PTT, HS TROP, CBC, TSH3, CK #### [facility] [address] Sodium [Moles/Vol] 127 mmol/L Low 136-145 [facility] Comment on above: Performed By: #### B WATER SUPPLY TECHNICIAN, BMP, PT, PTT, HS TROP, CBC, TSH3, CK #### [facility] [address] Urea nitrogen [Mass/Vol] 9 mg/dL Normal 7-25 [facility] Comment on above: Performed By: #### B WATER SUPPLY TECHNICIAN, BMP, PT, PTT, HS TROP, CBC, TSH3, CK #### [facility] [address] Activated partial thrombopla stin time (aPTT) in platelet poor plasma by coagulation aOrdered By: Hunter Dhillon on 03-12-2023 aPTT Coag (PPP) [Time] 26.1 s 25.1-36.5 [facility] Comment on above: A hematocrit value g reater than 55% may lead to inaccurate results in coagulation testing. Patients having hematocrit values >55% require a special collection tube for coagulation studies. Please contact the laboratory at [phone] for redraw instructions. Alanine aminotransferase [En zymatic activity/volume] in Serum or PlasmaOrdered By: Hunter Dhillon on 03-12-2023 ALT [Catalytic activity/Vol] 14 U/L 7- [facility] Albumin [Mass/volume] in Ser um or Plasma by Bromocresol green (BCG) dye binding methoOrdered By: Hunter Dhillon on 03-12-2023 Albumin BCG dye [Mass/Vol] 4.1 g/dL 3.5-5.7 [facility] Alkaline phosphatase [Enzyma tic activity/volume] in Serum or PlasmaOrdered By: Hunter Dhillon on 03-12-2023 ALP [Catalytic activity/Vol] 40 U/L 34-104 [facility] Aspartate aminotransferase [ Enzymatic activity/volume] in Serum or PlasmaOrdered By: Hunter Dhillon on 03-12-2023 AST [Catalytic activity/Vol] 15 U/L 13-39 [facility] Automated erythrocytes count in urine sediment (number/area)Ordered By: Hunter Dhillon on 03-12-2023 RBC Auto (Urine sed) [#/Area] None seen [HPF] 0-4 [facility] Automated leukocytes count i n urine sediment (number/area)Ordered By: Hunter Dhillon on 03-12-2023 WBC Auto (Urine sed) [#/Area] 5-9 [HPF] 0-4 [facility] B-Type Natriuretic Peptideon 03-12-2023 Natriuretic peptide B (Bld) [Mass/Vol] 83.0 pg/mL Normal 5-100 [facility] Comment on above: Result Comment: PERF ORMED BY: [place] [address] PATHOLOGIST [employer] INSPECTOR RAQUEL LOPEZ M.D. Performed By: #### B WATER SUPPLY TECHNICIAN, BMP, PT, PTT, HS TROP, CBC, TSH3, CK #### [facility] [address] Basic Metabolic Panelon 10-0 Anion gap [Moles/Vol] 13.3 mmol/L Normal 6.0-15.0 [facility] Comment on above: Performed By: #### B WATER SUPPLY TECHNICIAN, BMP, PT, PTT, HS TROP, CBC, TSH3, CK #### [facility] [address] Calcium [Mass/Vol] 9.2 mg/dL Normal 8.6-10.3 [facility] Comment on above: Performed By: #### B WATER SUPPLY TECHNICIAN, BMP, PT, PTT, HS TROP, CBC, TSH3, CK #### [facility] [address] Chloride [Moles/Vol] 98 mmol/L Normal 98-107 [facility] Comment on above: Performed By: #### B WATER SUPPLY TECHNICIAN, BMP, PT, PTT, HS TROP, CBC, TSH3, CK #### [facility] [address] CO2 [Moles/Vol] 21.2 mmol/L Normal 21.0-31.0 [facility] Comment on above: Performed By: #### B WATER SUPPLY TECHNICIAN, BMP, PT, PTT, HS TROP, CBC, TSH3, CK #### [facility] [address] Creatinine [Mass/Vol] 0.92 mg/dL Normal 0.60-1.20 [facility] Comment on above: Performed By: #### B WATER SUPPLY TECHNICIAN, BMP, PT, PTT, HS TROP, CBC, TSH3, CK #### [facility] [address] Creatinine Clr Calc Pharmacy 41.99 [facility] Comment on above: Performed By: #### B WATER SUPPLY TECHNICIAN, BMP, PT, PTT, HS TROP, CBC, TSH3, CK #### [facility] [address] GFR/1.73 sq M.predicted MDRD (S/P/Bld) [Vol rate/Area] mL/min/{1.73_m2} [facility] Comment on above: Performed By: #### B WATER SUPPLY TECHNICIAN, BMP, PT, PTT, HS TROP, CBC, TSH3, CK #### [facility] [address] Glucose [Mass/Vol] 87 mg/dL Normal 70-100 [facility] Comment on above: Result Comment: [place] Glucose Reference Range is dependent on time and content of last meal. Glucose of more than 200 mg/dL in a nonstressed, ambulatory subject supports the diagnosis of Diabetes Mellitus. ADA recommended reference range Performed By: #### B WATER SUPPLY TECHNICIAN, BMP, PT, PTT, HS TROP, CBC, TSH3, CK #### [facility] [address] Potassium [Moles/Vol] 4.5 mmol/L Normal 3.5-5.1 [facility] Comment on above: Performed By: #### B WATER SUPPLY TECHNICIAN, BMP, PT, PTT, HS TROP, CBC, TSH3, CK #### [facility] [address] Sodium [Moles/Vol] 128 mmol/L Low 136-145 [facility] Comment on above: Performed By: #### B WATER SUPPLY TECHNICIAN, BMP, PT, PTT, HS TROP, CBC, TSH3, CK #### [facility] [address] Urea nitrogen [Mass/Vol] 11 mg/dL Normal 7-25 [facility] Comment on above: Performed By: #### B WATER SUPPLY TECHNICIAN, BMP, PT, PTT, HS TROP, CBC, TSH3, CK #### [facility] [address] Basophils Auto (Bld) [#/Vol] Ordered By: Hunter Dhillon on 03-12-2023 Basophils (Bld) [#/Vol] 0.0 10*3/uL 0.0-0.2 [facility] Basophils/100 WBC Auto (Bld) Ordered By: Hunter Dhillon on 03-12-2023 Basophils/100 WBC (Bld) 0.4 % . [facility] Bilirubin Auto test strip Ql (U)Ordered By: Hunter Dhillon on 03-12-2023 Bilirubin Ql (U) Negative Negative [facility] Bilirubin.direct [Mass/volum e] in Serum or PlasmaOrdered By: Hunter Dhillon on 03-12-2023 Bilirubin.direct [Mass/Vol] 0.10 mg/dL 0.03-0.18 [facility] Bilirubin.total [Mass/volume ] in Serum or PlasmaOrdered By: Hunter Dhillon on 03-12-2023 Bilirubin [Mass/Vol] 0.4 mg/dL 0.3-1.0 [facility] Calcium [Mass/volume] in Ser um or PlasmaOrdered By: Hunter Dhillon on 10-01-2023 Calcium [Mass/Vol] 9.2 mg/dL 8.6-10.3 [facility] Carbon dioxide, total [Moles /volume] in Serum or PlasmaOrdered By: Hunter Dhillon on 03-12-2023 CO2 [Moles/Vol] 21.2 mmol/L 21.0-31.0 [facility] Chloride [Moles/volume] in S yamilex or PlasmaOrdered By: Hunter Dhillon on 03-12-2023 Chloride [Moles/Vol] 98 mmol/L 98-107 [facility] Complete Blood Count Auto Di ffon 03-12-2023 Basophils (Bld) [#/Vol] 0.0 10*3/uL Normal 0.0-0.2 [facility] Comment on above: Result Comment: PERF ORMED BY: [place] [address] PATHOLOGIST [employer] INSPECTOR RAQUEL LOPEZ M.D. Performed By: #### B WATER SUPPLY TECHNICIAN, BMP, PT, PTT, HS TROP, CBC, TSH3, CK #### [address] Basophils/100 WBC (Bld) 0.4 % Normal . [facility] Comment on above: Performed By: #### B WATER SUPPLY TECHNICIAN, BMP, PT, PTT, HS TROP, CBC, TSH3, CK #### [address] Eosinophils (Bld) [#/Vol] 0.2 10*3/uL Normal 0.0-0.45 [facility] Comment on above: Performed By: #### B WATER SUPPLY TECHNICIAN, BMP, PT, PTT, HS TROP, CBC, TSH3, CK #### [address] Eosinophils/100 WBC (Bld) 2.0 % Normal . [facility] Comment on above: Performed By: #### B WATER SUPPLY TECHNICIAN, BMP, PT, PTT, HS TROP, CBC, TSH3, CK #### [address] Erythrocyte distribution width (RBC) [Ratio] 12.6 % Normal 11.9-15.3 [facility] Comment on above: Performed By: #### B WATER SUPPLY TECHNICIAN, BMP, PT, PTT, HS TROP, CBC, TSH3, CK #### [address] Hematocrit (Bld) [Volume fraction] 35.5 % Normal 34.0-46.4 [facility] Comment on above: Performed By: #### B WATER SUPPLY TECHNICIAN, BMP, PT, PTT, HS TROP, CBC, TSH3, CK #### [address] Hemoglobin (Bld) [Mass/Vol] 12.4 g/dL Normal 11.8-15.4 [facility] Comment on above: Performed By: #### B WATER SUPPLY TECHNICIAN, BMP, PT, PTT, HS TROP, CBC, TSH3, CK #### [address] Lymphocytes (Bld) [#/Vol] 1.2 10*3/uL Normal 1.00-4.8 [facility] Comment on above: Performed By: #### B WATER SUPPLY TECHNICIAN, BMP, PT, PTT, HS TROP, CBC, TSH3, CK #### [address] Lymphocytes/100 WBC (Bld) 13.2 % Normal . [facility] Comment on above: Performed By: #### B WATER SUPPLY TECHNICIAN, BMP, PT, PTT, HS TROP, CBC, TSH3, CK #### [address] MCH (RBC) [Entitic mass] 31.9 pg Normal 24.7-34.3 [facility] Comment on above: Performed By: #### B WATER SUPPLY TECHNICIAN, BMP, PT, PTT, HS TROP, CBC, TSH3, CK #### [address] MCV (RBC) [Entitic vol] 91.8 fL Normal 80-100 [facility] Comment on above: Performed By: #### B WATER SUPPLY TECHNICIAN, BMP, PT, PTT, HS TROP, CBC, TSH3, CK #### [address] [address] [place] Mean Corpuscular HGB Conc 34.7 g/dL Normal 32.0-35.0 [facility] Comment on above: Performed By: #### B WATER SUPPLY TECHNICIAN, BMP, PT, PTT, HS TROP, CBC, TSH3, CK #### [facility] [address] Monocytes (Bld) [#/Vol] 0.5 10*3/uL Normal 0.0-0.8 [facility] Comment on above: Performed By: #### B WATER SUPPLY TECHNICIAN, BMP, PT, PTT, HS TROP, CBC, TSH3, CK #### [address] Monocytes/100 WBC (Bld) 17.50 % Normal 0.00-20.00 [facility] Comment on above: Performed By: #### B WATER SUPPLY TECHNICIAN, BMP, PT, PTT, HS TROP, CBC, TSH3, CK #### [address] Monocytes/100 WBC (Bld) 5.1 % Normal . [facility] Comment on above: Performed By: #### B WATER SUPPLY TECHNICIAN, BMP, PT, PTT, HS TROP, CBC, TSH3, CK #### [facility] [address] [place] [address] Neutrophils (Bld) [#/Vol] 7.0 10*3/uL Normal 1.8-7.7 [facility] Comment on above: Performed By: #### B WATER SUPPLY TECHNICIAN, BMP, PT, PTT, HS TROP, CBC, TSH3, CK #### [address] Neutrophils/100 WBC (Bld) 79.3 % Normal . [facility] Comment on above: Performed By: #### B WATER SUPPLY TECHNICIAN, BMP, PT, PTT, HS TROP, CBC, TSH3, CK #### [address] NRBC% 0.0 /100{WBC} Normal 0-0.5 [facility] Comment on above: Performed By: #### B WATER SUPPLY TECHNICIAN, BMP, PT, PTT, HS TROP, CBC, TSH3, CK #### [facility] [address] Platelet mean volume (Bld) [Entitic vol] 7.2 fL Normal 6.3-10.7 [facility] Comment on above: Performed By: #### B WATER SUPPLY TECHNICIAN, BMP, PT, PTT, HS TROP, CBC, TSH3, CK #### [facility] [address] Platelets (Bld) [#/Vol] 237 10*3/uL Normal 150-450 [facility] Comment on above: Performed By: #### B WATER SUPPLY TECHNICIAN, BMP, PT, PTT, HS TROP, CBC, TSH3, CK #### [address] RBC (Bld) [#/Vol] 3.87 10*6/uL Normal 3.60-5.00 [facility] Comment on above: Performed By: #### B WATER SUPPLY TECHNICIAN, BMP, PT, PTT, HS TROP, CBC, TSH3, CK #### [address] WBC (Bld) [#/Vol] 8.9 10*3/uL Normal 3.8-11.6 [facility] Comment on above: Performed By: #### B WATER SUPPLY TECHNICIAN, BMP, PT, PTT, HS TROP, CBC, TSH3, CK #### [address] Creatine Kinaseon 03-12-2023 CK [Catalytic activity/Vol] 20 U/L Low 30223 [facility] Comment on above: Performed By: #### B WATER SUPPLY TECHNICIAN, BMP, PT, PTT, HS TROP, CBC, TSH3, CK #### [address] Creatine kinase [Enzymatic a ctivity/volume] in Serum or PlasmaOrdered By: Hunter Dhillon on 03-12-2023 CK [Catalytic activity/Vol] 20 U/L 30-223 [facility] Creatinine [Mass/volume] in Serum or PlasmaOrdered By: Hunter Dhillon on 03-12-2023 Creatinine [Mass/Vol] 0.92 mg/dL 0.60-1.20 [facility] Dipstick and Microscopicon 1 Appearance (U) Slightly Cloudy Critically abnormal Clear [facility] Comment on above: Order Comment: Name Collection Type:: Clean-Voided Midstream Performed By: #### A DDONUAPLUS #### [facility] [address] [place] [address] [place] Bacteria,Urine 1+ High None Seen [facility] Comment on above: Order Comment: Name Collection Type:: Clean-Voided Midstream Result Comment: PERF ORMED BY: [place] [address] PATHOLOGIST [employer] AX[employer] INSPECTOR RAQUEL LOPEZ M.D. Performed By: #### A DDONUAPLUS #### [facility] [address] [place] [address] [place] Bilirubin,Urine Negative Normal Negative [facility] Comment on above: Order Comment: Name Collection Type:: Clean-Voided Midstream Performed By: #### A DDONUAPLUS #### [facility] [address] [place] [address] [place] Color (U) Yellow Normal Yellow [facility] Comment on above: Order Comment: Name Collection Type:: Clean-Voided Midstream Performed By: #### A DDONUAPLUS #### [facility] [address] [place] [address] [place] Glucose Ql (U) Normal Normal Normal [facility] Comment on above: Order Comment: Name Collection Type:: Clean-Voided Midstream Performed By: #### A DDONUAPLUS #### [facility] [address] [place] [address] [place] Ketones Ql (U) Negative Normal Negative [facility] Comment on above: Order Comment: Name Collection Type:: Clean-Voided Midstream Performed By: #### A DDONUAPLUS #### [facility] [address] [place] [address] [place] Leukocyte esterase Test strip Ql (U) 3+ High Negative [facility] Comment on above: Order Comment: Name Collection Type:: Clean-Voided Midstream Performed By: #### A DDONUAPLUS #### [facility] [address] [place] [address] [place] Nitrite,Urine Negative Normal Negative [facility] Comment on above: Order Comment: Name Collection Type:: Clean-Voided Midstream Performed By: #### A DDONUAPLUS #### [facility] [address] [place] [address] [place] Occult Blood,Urine Negative Normal Negative [facility] Comment on above: Order Comment: Name Collection Type:: Clean-Voided Midstream Result Comment: PERF ORMED BY: [place] [address] PATHOLOGIST [employer]RO[employer] WHEELS AND AXLES INSPECTOR RAQUEL LOPEZ M.D. Performed By: #### A DDONUAPLUS #### [place] [address] [place] pH (U) 7.5 [pH] Normal 5.0-9.0 [facility] Comment on above: Order Comment: Name Collection Type:: Clean-Voided Midstream Performed By: #### A DDONUAPLUS #### [facility] [address] [place] [address] [place] Protein,Urine Negative Normal Negative [facility] Comment on above: Order Comment: Name Collection Type:: Clean-Voided Midstream Performed By: #### A DDONUAPLUS #### [facility] [address] [place] [address] [place] RBC,Urine None Seen Normal 0-4 [facility] Comment on above: Order Comment: Name Collection Type:: Clean-Voided Midstream Performed By: #### A DDONUAPLUS #### [facility] [address] [place] [address] [place] Specificy Artemas,Urine 1.010 Normal 1.001-1.03 0 [facility] Comment on above: Order Comment: Name Collection Type:: Clean-Voided Midstream Performed By: #### A DDONUAPLUS #### [facility] [address] [place] [address] [place] Squamous Epithelial Cell,Urine 5-9 High 0-2 [facility] Comment on above: Order Comment: Name Collection Type:: Clean-Voided Midstream Performed By: #### A DDONUAPLUS #### [facility] [address] [place] [address] Urobilinogen,Urine Normal Normal Normal [facility] Comment on above: Order Comment: Name Collection Type:: Clean-Voided Midstream Performed By: #### A DDONUAPLUS #### [facility] [address] [place] [address] WBC,Urine 5-9 High 0-4 [facility] Comment on above: Order Comment: Name Collection Type:: Clean-Voided Midstream Performed By: #### A DDONUAPLUS #### [address] ECG 12 lead ECGon 03-12-2023 ECG 12 lead ECG [facility] [place] [address] [place] [address] Electrocardiograph Report Signed Patient: Steven Harding MR#: [id number] [birth year] : 1940 Acct:[id number] Age/Sex: 83 / F ADM Date: 03/12/23 Loc: Room: [address] [place] [address] Type: ADM INOo Attending Dr: Sima Hdz [...] longer present Confirmed by Zane Michael DO ([id number]) on 03/13/2023 8:21:27 AM Referred By: Electronically Signed By:Zane Michael DO Transcribed By: MUS Signed By Zane Michael DO 3 0821 Normal [facility] Eosinophils Auto (Bld) [#/Vo l]Ordered By: Hunter Dhillon on 03-12-2023 Eosinophils (Bld) [#/Vol] 0.2 10*3/uL 0.0-0.45 [facility] Eosinophils/100 WBC Auto (Bl d)Ordered By: Hunter Dhillon on 03-12-2023 Eosinophils/100 WBC (Bld) 2.0 % . [facility] Erythrocyte distribution wid th Auto (RBC) [Ratio]Ordered By: Hunter Dhillon on 03-12-2023 Erythrocyte distribution width (RBC) [Ratio] 12.6 % 11.9-15.3 [facility] Globulin Calc (S) [Mass/Vol] Ordered By: Hunter Dhillon on 03-12-2023 Globulin (S) [Mass/Vol] 2.2 g/dL [facility] Glucose [Mass/volume] in Ser um or PlasmaOrdered By: Hunter Dhillon on 03-12-2023 Glucose [Mass/Vol] 87 mg/dL 70-100 [facility] Comment on above: ADA recommended refe rence rangeRandom Glucose Reference Range is dependent on time and content of last meal. Glucose of more than 200 mg/dL in a nonstressed, ambulatory subject supports the diagnosis of Diabetes Mellitus. Hematocrit Auto (Bld) [Volum e fraction]Ordered By: Hunter Dhillon on 03-12-2023 Hematocrit (Bld) [Volume fraction] 35.5 % 34.0-46.4 [facility] Hemoglobin [Mass/volume] in BloodOrdered By: Hunter Dhillon on 03-12-2023 Hemoglobin (Bld) [Mass/Vol] 12.4 g/dL 11.8-15.4 [facility] Hepatic Panelon 03-12-2023 Albumin [Mass/Vol] 4.1 g/dL Normal 3.5-5.7 [facility] Comment on above: Performed By: #### B WATER SUPPLY TECHNICIAN, BMP, PT, PTT, HS TROP, CBC, TSH3, CK #### [facility] [address] Albumin/Globulin [Mass ratio] 1.9 {ratio} Normal [facility] Comment on above: Performed By: #### B WATER SUPPLY TECHNICIAN, BMP, PT, PTT, HS TROP, CBC, TSH3, CK #### [facility] [address] ALP [Catalytic activity/Vol] 40 U/L Normal 34-104 [facility] Comment on above: Performed By: #### B WATER SUPPLY TECHNICIAN, BMP, PT, PTT, HS TROP, CBC, TSH3, CK #### [facility] [address] ALT [Catalytic activity/Vol] 14 U/L Normal 7-52 [facility] Comment on above: Performed By: #### B WATER SUPPLY TECHNICIAN, BMP, PT, PTT, HS TROP, CBC, TSH3, CK #### [address] AST [Catalytic activity/Vol] 15 U/L Normal 13-39 [facility] Comment on above: Performed By: #### B WATER SUPPLY TECHNICIAN, BMP, PT, PTT, HS TROP, CBC, TSH3, CK #### [address] Bilirubin [Mass/Vol] 0.4 mg/dL Normal 0.3-1.0 [facility] Comment on above: Performed By: #### B WATER SUPPLY TECHNICIAN, BMP, PT, PTT, HS TROP, CBC, TSH3, CK #### [address] Bilirubin,Indirect 0.3 mg/dL Normal [facility] Comment on above: Performed By: #### B WATER SUPPLY TECHNICIAN, BMP, PT, PTT, HS TROP, CBC, TSH3, CK #### [address] Bilirubin.indirect [Mass/Vol] 0.10 mg/dL Normal 0.03-0.18 [facility] Comment on above: Performed By: #### B WATER SUPPLY TECHNICIAN, BMP, PT, PTT, HS TROP, CBC, TSH3, CK #### [address] Globulin (S) [Mass/Vol] 2.2 g/dL Normal [facility] Comment on above: Performed By: #### B WATER SUPPLY TECHNICIAN, BMP, PT, PTT, HS TROP, CBC, TSH3, CK #### [facility] [address] [place] [address] [place] Protein [Mass/Vol] 6.3 g/dL Low 6.4-8.9 [facility] Comment on above: Performed By: #### B WATER SUPPLY TECHNICIAN, BMP, PT, PTT, HS TROP, CBC, TSH3, CK #### [facility] [address] [place] [id number] [place] INR in Platelet poor plasma by Coagulation assayOrdered By: Hunter Dhillon on 03-12-2023 INR Coag (PPP) [Relative time] 0.9 {INR} [facility] Comment on above: INR Therapeutic Rang [...] on 03-12-2023 Ketones (U) [Mass/Vol] Negative Negative [facility] Leukocytes [#/volume] correc jazmyne for nucleated erythrocytes in Blood by Automated counOrdered By: Hunter Dhillon on 03-12-2023 WBC corrected for nucl RBC Auto (Bld) [#/Vol] 8.9 10*3/uL 3.8-11.6 [facility] Lymphocytes Auto (Bld) [#/Vo l]Ordered By: Hunter Dhillon on 03-12-2023 Lymphocytes (Bld) [#/Vol] 1.2 10*3/uL 1.00-4.8 [facility] Lymphocytes/100 WBC Auto (Bl d)Ordered By: Hunter Dhillon on 03-12-2023 Lymphocytes/100 WBC (Bld) 13.2 % . [facility] MCH Auto (RBC) [Entitic mass ]Ordered By: Hunter Dhillon on 03-12-2023 MCH (RBC) [Entitic mass] 31.9 pg 24.7-34.3 [facility] MCHC Auto (RBC) [Mass/Vol]Or dered By: Hunter Dhillon on 03-12-2023 MCHC (RBC) [Mass/Vol] 34.7 g/dL 32.0-35.0 [facility] MCV Auto (RBC) [Entitic vol] Ordered By: Hunter Dhillon on 03-12-2023 MCV (RBC) [Entitic vol] 91.8 fL 80-100 [facility] Monocyte distribution width [Entitic volume] in Blood by AutomatedOrdered By: Hunter Dhillon on 03-12-2023 Monocyte distribution width Auto (Bld) [Entitic vol] 17.50 % 0.00-20.00 [facility] Monocytes Auto (Bld) [#/Vol] Ordered By: Hunter Dhillon on 03-12-2023 Monocytes (Bld) [#/Vol] 0.5 10*3/uL 0.0-0.8 [facility] Monocytes/100 WBC Auto (Bld) Ordered By: Hunter Dhillon on 03-12-2023 Monocytes/100 WBC (Bld) 5.1 % . [facility] Natriuretic peptide B [Mass/ Vol]Ordered By: Hunter Dhillon on 03-12-2023 Natriuretic peptide B (Bld) [Mass/Vol] 83.0 pg/mL 5-100 [facility] Neutrophils Auto (Bld) [#/Vo l]Ordered By: Hunter Dhillon on 03-12-2023 Neutrophils (Bld) [#/Vol] 7.0 10*3/uL 1.8-7.7 [facility] Neutrophils/100 WBC Auto (Bl d)Ordered By: Hunter Dhillon on 03-12-2023 Neutrophils/100 WBC (Bld) 79.3 % . [facility] No Panel InformationOrdered By: Hunter Dhillon on 03-12-2023 Estimated GFR (CKD-EPI) > 60.0 mL/Min [facility] Creatinine Clearance (Chem 41.99 [facility] Nucleated erythrocytes [Pres ence] in Blood by Automated countOrdered By: Hunter Dhillon on 03-12-2023 Nucleated RBC Auto Ql (Bld) 0.0 /100{WBC} 0-0.5 [facility] Partial Thromboplastin Timeo n 03-12-2023 aPTT Coag (Bld) [Time] 26.1 s Normal 25.1-36.5 [facility] Comment on above: Result Comment: A he matocrit value greater than 55% may lead to inaccurate results in coagulation testing. Patients having hematocrit values >55% require a special collection tube for coagulation studies. Please contact the laboratory at [phone] for redraw instructions. PERFORMED BY: [facility] [address] [place] [id number] PATHOLOGIST [employer]RO[employer] WHEELS [employer] AXLES INSPECTOR RAQUEL LOPEZ M.D. Performed By: #### B WATER SUPPLY TECHNICIAN, BMP, PT, PTT, HS TROP, CBC, TSH3, CK #### [facility] [address] [place] [id number] [place] Platelet mean volume Auto (B ld) [Entitic vol]Ordered By: Hunter Dhillon on 03-12-2023 Platelet mean volume (Bld) [Entitic vol] 7.2 fL 6.3-10.7 [facility] Platelets Auto (Bld) [#/Vol] Ordered By: Hunter Dhillon on 03-12-2023 Platelets (Bld) [#/Vol] 237 10*3/uL 150-450 [facility] Potassium [Moles/volume] in Serum or PlasmaOrdered By: Hunter Dhillon on 03-12-2023 Potassium [Moles/Vol] 4.5 mmol/L 3.5-5.1 [facility] Protein Auto test strip (U) [Mass/Vol]Ordered By: Hunter Dhillon on 03-12-2023 Protein (U) [Mass/Vol] Negative Negative [facility] Protein [Mass/volume] in Ser um or PlasmaOrdered By: Hunter Dhillon on 03-12-2023 Protein [Mass/Vol] 6.3 g/dL 6.4-8.9 [facility] Prothrombin Time INRon 03-12 INR Coag (PPP) [Relative time] 0.9 {INR} Normal [facility] Comment on above: Result Comment: INR [...] 3 - 4.5 Performed By: #### B WATER SUPPLY TECHNICIAN, BMP, PT, PTT, HS TROP, CBC, TSH3, CK #### [facility] [address] [place] [address] [place] PT Coag (PPP) [Time] 11.3 s Normal 9.0-12.9 [facility] Comment on above: Result Comment: A he matocrit value greater than 55% may lead to inaccurate results in coagulation testing. Patients having hematocrit values >55% require a special collection tube for coagulation studies. Please contact the laboratory at [phone] for redraw instructions. Performed By: #### B WATER SUPPLY TECHNICIAN, BMP, PT, PTT, HS TROP, CBC, TSH3, CK #### [facility] [address] [place] [address] [place] Prothrombin time (PT)Ordered By: Hunter Dhillon on 03-12-2023 PT Coag (PPP) [Time] 11.3 s 9.0-12.9 [facility] Comment on above: A hematocrit value g reater than 55% may lead to inaccurate results in coagulation testing. Patients having hematocrit values >55% require a special collection tube for coagulation studies. Please contact the laboratory at [phone] for redraw instructions. RBC Auto (Bld) [#/Vol]Ordere d By: Hunter Dhillon on 03-12-2023 RBC (Bld) [#/Vol] 3.87 10*6/uL 3.60-5.00 [facility] Serum or plasma albumin/glob ulin mass ratioOrdered By: Hunter Dhillon on 03-12-2023 Albumin/Globulin [Mass ratio] 1.9 {ratio} [facility] Serum or plasma anion gap de terminationOrdered By: Hunter Dhillon on 03-12-2023 Anion gap [Moles/Vol] 13.3 mmol/L 6.0-15.0 [facility] Serum or plasma non-glucuron idated bilirubin measurement (mass/volume)Ordered By: Hunter Dhillon on 03-12-2023 Bilirubin.indirect [Mass/Vol] 0.3 mg/dL [facility] Sodium [Moles/volume] in Ser um or PlasmaOrdered By: Hunter Dhillon on 03-12-2023 Sodium [Moles/Vol] 128 mmol/L 136-145 [facility] Squamous epithelial cells de tection in urine sediment by light microscopyOrdered By: Hunter Dhillon on 03-12-2023 Epithelial cells.squamous LM Ql (Urine sed) 5-9 [HPF] 0-2 [facility] Thyroid Stimulating Hormoneo n 03-12-2023 TSH Qn 0.01 m[IU]/L Low 0.45-5.33 [facility] Comment on above: Result Comment: PERF ORMED BY: [place] [address] PATHOLOGIST [employer] AX[employer] INSPECTOR RAQUEL LOPEZ M.D. Performed By: #### B WATER SUPPLY TECHNICIAN, BMP, PT, PTT, HS TROP, CBC, TSH3, CK #### [facility] [address] [place] [address] Thyrotropin [Units/volume] i n Serum or PlasmaOrdered By: Hunter Dhillon on 03-12-2023 TSH Qn 0.01 m[IU]/L 0.45-5.33 [facility] Troponin I High Sensitivityo n 03-12-2023 Troponin I High Sensitivity 5.6 pg/mL Normal 0.0-15.0 [facility] Comment on above: Result Comment: PERF ORMED BY: [place] [address] PATHOLOGIST [employer] AX[employer] INSPECTOR RAQUEL LOPEZ M.D. Performed By: #### B WATER SUPPLY TECHNICIAN, BMP, PT, PTT, HS TROP, CBC, TSH3, CK #### [facility] [address] [place] [address] Troponin I.cardiac [Mass/vol ume] in Serum or Plasma by Detection limit <= 0.01 ng/Ordered By: Hunter Dhillon on 03-12-2023 Troponin I.cardiac DL <= 0.01 ng/mL [Mass/Vol] 5.6 pg/mL 0.0-15.0 [facility] Urea nitrogen [Mass/volume] in Serum or PlasmaOrdered By: Hunter Dhillon on 03-12-2023 Urea nitrogen [Mass/Vol] 11 mg/dL 7 [facility] Urine appearanceOrdered By: Hunter Dhillon on 03-12-2023 Appearance (U) Slightly cloudy Clear [facility] Urine bacteria detection by automated methodOrdered By: Hunter Dhillon on 03-12-2023 Bacteria Auto Ql (U) 1+ None Seen [facility] Urine colorOrdered By: Gera Dhillon on 03-12-2023 Color (U) Yellow Yellow [facility] Urine glucose measurement by automated test strip (mass/volume)Ordered By: Hunter Dhillon on 03-12-2023 Glucose Auto test strip (U) [Mass/Vol] Normal mg/dL Normal [facility] Urine hemoglobin detection b y automated test stripOrdered By: Hunter Dhillon on 03-12-2023 Hemoglobin Auto test strip Ql (U) Negative Negative [facility] Urine leukocyte esterase det ection by automated test stripOrdered By: Hunter Dhillon on 03-12-2023 Leukocyte esterase Auto test strip Ql (U) 3+ Negative [facility] Urine nitrite detection by a utomated test stripOrdered By: Hunter Dhillon on 03-12-2023 Nitrite Auto test strip Ql (U) Negative Negative [facility] Urobilinogen Auto test strip (U) [Mass/Vol]Ordered By: Hunter Dhillon on 03-12-2023 Urobilinogen (U) [Mass/Vol] Normal mg/dL Normal [facility] WBC Auto (Bld) [#/Vol]Ordere d By: Hunter Dhillon on 03-12-2023 WBC (Bld) [#/Vol] 8.9 10*3/uL 3.8-11.6 [facility] pH Auto test strip (U)Ordere d By: Hunter Dhillon on 03-12-2023 pH (U) 1.010 [pH] 1.001-1.03 0 [facility] pH (U) 7.5 [pH] 5.0-9.0 [facility] Basic Metabolic Panelon 09-2 Anion gap [Moles/Vol] 6.6 mmol/L Normal 6.0-15.0 [facility] Comment on above: Performed By: #### B WATER SUPPLY TECHNICIAN, BMP, PT, PTT, HS TROP, CBC, TSH3, CK #### [address] Calcium [Mass/Vol] 8.9 mg/dL Normal 8.6-10.3 [facility] Comment on above: Performed By: #### B WATER SUPPLY TECHNICIAN, BMP, PT, PTT, HS TROP, CBC, TSH3, CK #### [address] Chloride [Moles/Vol] 104 mmol/L Normal 98-107 [facility] Comment on above: Performed By: #### B WATER SUPPLY TECHNICIAN, BMP, PT, PTT, HS TROP, CBC, TSH3, CK #### [address] CO2 [Moles/Vol] 26.8 mmol/L Normal 21.0-31.0 [facility] Comment on above: Performed By: #### B WATER SUPPLY TECHNICIAN, BMP, PT, PTT, HS TROP, CBC, TSH3, CK #### [address] Creatinine [Mass/Vol] 0.83 mg/dL Normal 0.60-1.20 [facility] Comment on above: Performed By: #### B WATER SUPPLY TECHNICIAN, BMP, PT, PTT, HS TROP, CBC, TSH3, CK #### [address] Creatinine Clr Calc Pharmacy 46.94 [facility] Comment on above: Performed By: #### B WATER SUPPLY TECHNICIAN, BMP, PT, PTT, HS TROP, CBC, TSH3, CK #### [address] GFR/1.73 sq M.predicted MDRD (S/P/Bld) [Vol rate/Area] mL/min/{1.73_m2} [facility] Comment on above: Performed By: #### B WATER SUPPLY TECHNICIAN, BMP, PT, PTT, HS TROP, CBC, TSH3, CK #### [facility] [address] Glucose [Mass/Vol] 94 mg/dL Normal 70-100 [facility] Comment on above: Result Comment: [facility] Glucose Reference Range is dependent on time and content of last meal. Glucose of more than 200 mg/dL in a nonstressed, ambulatory subject supports the diagnosis of Diabetes Mellitus. ADA recommended reference range Performed By: #### B WATER SUPPLY TECHNICIAN, BMP, PT, PTT, HS TROP, CBC, TSH3, CK #### [facility] [address] Potassium [Moles/Vol] 4.4 mmol/L Normal 3.5-5.1 [facility] Comment on above: Performed By: #### B WATER SUPPLY TECHNICIAN, BMP, PT, PTT, HS TROP, CBC, TSH3, CK #### [facility] [address] Sodium [Moles/Vol] 133 mmol/L Low 136-145 [facility] Comment on above: Performed By: #### B WATER SUPPLY TECHNICIAN, BMP, PT, PTT, HS TROP, CBC, TSH3, CK #### [facility] [address] Urea nitrogen [Mass/Vol] 8 mg/dL Normal 7-25 [facility] Comment on above: Performed By: #### B WATER SUPPLY TECHNICIAN, BMP, PT, PTT, HS TROP, CBC, TSH3, CK #### [facility] [address] Basophils Auto (Bld) [#/Vol] Ordered By: Chuck Chacon on 03-07-2023 Basophils (Bld) [#/Vol] 0.0 10*3/uL 0.0-0.2 [facility] Basophils/100 WBC Auto (Bld) Ordered By: Chuck Chacon on 03-07-2023 Basophils/100 WBC (Bld) 0.7 % . [facility] Calcium [Mass/volume] in Ser um or PlasmaOrdered By: Chuck Chacon on 03-07-2023 Calcium [Mass/Vol] 8.9 mg/dL 8.6-10.3 [facility] Carbon dioxide, total [Moles /volume] in Serum or PlasmaOrdered By: Chuck Chacon on 03-07-2023 CO2 [Moles/Vol] 26.8 mmol/L 21.0-31.0 [facility] Chloride [Moles/volume] in S yamilex or PlasmaOrdered By: Chuck Chacon on 03-07-2023 Chloride [Moles/Vol] 104 mmol/L 98-107 [facility] Complete Blood Count Auto Di ffon 03-07-2023 Basophils (Bld) [#/Vol] 0.0 10*3/uL Normal 0.0-0.2 [facility] Comment on above: Result Comment: PERF ORMED BY: [place] [address] PATHOLOGIST [employer] INSPECTOR RAQUEL LOPEZ M.D. Performed By: #### B WATER SUPPLY TECHNICIAN, BMP, PT, PTT, HS TROP, CBC, TSH3, CK #### [address] Basophils/100 WBC (Bld) 0.7 % Normal . [facility] Comment on above: Performed By: #### B WATER SUPPLY TECHNICIAN, BMP, PT, PTT, HS TROP, CBC, TSH3, CK #### [address] Eosinophils (Bld) [#/Vol] 0.4 10*3/uL Normal 0.0-0.45 [facility] Comment on above: Performed By: #### B WATER SUPPLY TECHNICIAN, BMP, PT, PTT, HS TROP, CBC, TSH3, CK #### [address] Eosinophils/100 WBC (Bld) 5.2 % Normal . [facility] Comment on above: Performed By: #### B WATER SUPPLY TECHNICIAN, BMP, PT, PTT, HS TROP, CBC, TSH3, CK #### [address] Erythrocyte distribution width (RBC) [Ratio] 12.8 % Normal 11.9-15.3 [facility] Comment on above: Performed By: #### B WATER SUPPLY TECHNICIAN, BMP, PT, PTT, HS TROP, CBC, TSH3, CK #### [address] Hematocrit (Bld) [Volume fraction] 35.2 % Normal 34.0-46.4 [facility] Comment on above: Performed By: #### B WATER SUPPLY TECHNICIAN, BMP, PT, PTT, HS TROP, CBC, TSH3, CK #### [address] Hemoglobin (Bld) [Mass/Vol] 12.0 g/dL Normal 11.8-15.4 [facility] Comment on above: Performed By: #### B WATER SUPPLY TECHNICIAN, BMP, PT, PTT, HS TROP, CBC, TSH3, CK #### [address] Lymphocytes (Bld) [#/Vol] 1.7 10*3/uL Normal 1.00-4.8 [facility] Comment on above: Performed By: #### B WATER SUPPLY TECHNICIAN, BMP, PT, PTT, HS TROP, CBC, TSH3, CK #### [address] Lymphocytes/100 WBC (Bld) 24.6 % Normal . [facility] Comment on above: Performed By: #### B WATER SUPPLY TECHNICIAN, BMP, PT, PTT, HS TROP, CBC, TSH3, CK #### [address] MCH (RBC) [Entitic mass] 31.6 pg Normal 24.7-34.3 [facility] Comment on above: Performed By: #### B WATER SUPPLY TECHNICIAN, BMP, PT, PTT, HS TROP, CBC, TSH3, CK #### [address] MCV (RBC) [Entitic vol] 92.5 fL Normal 80-100 [facility] Comment on above: Performed By: #### B WATER SUPPLY TECHNICIAN, BMP, PT, PTT, HS TROP, CBC, TSH3, CK #### [place] [id number] [place] Mean Corpuscular HGB Conc 34.1 g/dL Normal 32.0-35.0 [facility] Comment on above: Performed By: #### B WATER SUPPLY TECHNICIAN, BMP, PT, PTT, HS TROP, CBC, TSH3, CK #### [address] Monocytes (Bld) [#/Vol] 0.6 10*3/uL Normal 0.0-0.8 [facility] Comment on above: Performed By: #### B WATER SUPPLY TECHNICIAN, BMP, PT, PTT, HS TROP, CBC, TSH3, CK #### [address] Monocytes/100 WBC (Bld) 8.7 % Normal . [facility] Comment on above: Performed By: #### B WATER SUPPLY TECHNICIAN, BMP, PT, PTT, HS TROP, CBC, TSH3, CK #### [address] Neutrophils (Bld) [#/Vol] 4.2 10*3/uL Normal 1.8-7.7 [facility] Comment on above: Performed By: #### B WATER SUPPLY TECHNICIAN, BMP, PT, PTT, HS TROP, CBC, TSH3, CK #### [address] Neutrophils/100 WBC (Bld) 60.8 % Normal . [facility] Comment on above: Performed By: #### B WATER SUPPLY TECHNICIAN, BMP, PT, PTT, HS TROP, CBC, TSH3, CK #### [address] NRBC% 0.0 /100{WBC} Normal 0-0.5 [facility] Comment on above: Performed By: #### B WATER SUPPLY TECHNICIAN, BMP, PT, PTT, HS TROP, CBC, TSH3, CK #### [address] Platelet mean volume (Bld) [Entitic vol] 7.5 fL Normal 6.3-10.7 [facility] Comment on above: Performed By: #### B WATER SUPPLY TECHNICIAN, BMP, PT, PTT, HS TROP, CBC, TSH3, CK #### [facility] [address] Platelets (Bld) [#/Vol] 232 10*3/uL Normal 150-450 [facility] Comment on above: Performed By: #### B WATER SUPPLY TECHNICIAN, BMP, PT, PTT, HS TROP, CBC, TSH3, CK #### [facility] [address] RBC (Bld) [#/Vol] 3.80 10*6/uL Normal 3.60-5.00 [facility] Comment on above: Performed By: #### B WATER SUPPLY TECHNICIAN, BMP, PT, PTT, HS TROP, CBC, TSH3, CK #### [facility] [address] WBC (Bld) [#/Vol] 6.8 10*3/uL Normal 3.8-11.6 [facility] Comment on above: Performed By: #### B WATER SUPPLY TECHNICIAN, BMP, PT, PTT, HS TROP, CBC, TSH3, CK #### [facility] [address] Creatinine [Mass/volume] in Serum or PlasmaOrdered By: Chuck Chacon on 03-07-2023 Creatinine [Mass/Vol] 0.83 mg/dL 0.60-1.20 [facility] Eosinophils Auto (Bld) [#/Vo l]Ordered By: Chuck Chacon on 03-07-2023 Eosinophils (Bld) [#/Vol] 0.4 10*3/uL 0.0-0.45 [facility] Eosinophils/100 WBC Auto (Bl d)Ordered By: Chuck Chacon on 03-07-2023 Eosinophils/100 WBC (Bld) 5.2 % . [facility] Erythrocyte distribution wid th Auto (RBC) [Ratio]Ordered By: Chuck Chacon on 03-07-2023 Erythrocyte distribution width (RBC) [Ratio] 12.8 % 11.9-15.3 [facility] Glucose [Mass/volume] in Ser um or PlasmaOrdered By: Chuck Chacon on 03-07-2023 Glucose [Mass/Vol] 94 mg/dL 70-100 [facility] Comment on above: ADA recommended refe rence rangeRandom Glucose Reference Range is dependent on time and content of last meal. Glucose of more than 200 mg/dL in a nonstressed, ambulatory subject supports the diagnosis of Diabetes Mellitus. Hematocrit Auto (Bld) [Volum e fraction]Ordered By: Chuck Chacon on 03-07-2023 Hematocrit (Bld) [Volume fraction] 35.2 % 34.0-46.4 [facility] Hemoglobin [Mass/volume] in BloodOrdered By: Chuck Chacon on 03-07-2023 Hemoglobin (Bld) [Mass/Vol] 12.0 g/dL 11.8-15.4 [facility] Leukocytes [#/volume] correc jazmyne for nucleated erythrocytes in Blood by Automated counOrdered By: Chuck Chacon on 03-07-2023 WBC corrected for nucl RBC Auto (Bld) [#/Vol] 6.8 10*3/uL 3.8-11.6 [facility] Lymphocytes Auto (Bld) [#/Vo l]Ordered By: Chuck Chacon on 03-07-2023 Lymphocytes (Bld) [#/Vol] 1.7 10*3/uL 1.00-4.8 [facility] Lymphocytes/100 WBC Auto (Bl d)Ordered By: Chuck Chacon on 03-07-2023 Lymphocytes/100 WBC (Bld) 24.6 % . [facility] MCH Auto (RBC) [Entitic mass ]Ordered By: Chuck Chacon on 03-07-2023 MCH (RBC) [Entitic mass] 31.6 pg 24.7-34.3 [facility] MCHC Auto (RBC) [Mass/Vol]Or dered By: Chuck Chacon on 03-07-2023 MCHC (RBC) [Mass/Vol] 34.1 g/dL 32.0-35.0 [facility] MCV Auto (RBC) [Entitic vol] Ordered By: Chuck Chacon on 03-07-2023 MCV (RBC) [Entitic vol] 92.5 fL 80-100 [facility] Magnesiumon 03-07-2023 Magnesium [Mass/Vol] 1.4 mg/dL Low 1.9-2.7 [facility] Comment on above: Result Comment: PERF ORMED BY: [facility] [address] [place] [address] PATHOLOGIST RAILROAD WHEELS AND AXLES INSPECTOR RAQUEL LOPEZ M.D. Performed By: #### B WATER SUPPLY TECHNICIAN, BMP, PT, PTT, HS TROP, CBC, TSH3, CK #### [facility] [address] Magnesium [Mass/volume] in S yamilex or PlasmaOrdered By: Chuck Chacon on 03-07-2023 Magnesium [Mass/Vol] 1.4 mg/dL 1.9-2.7 [facility] Monocytes Auto (Bld) [#/Vol] Ordered By: Chuck Chacon on 03-07-2023 Monocytes (Bld) [#/Vol] 0.6 10*3/uL 0.0-0.8 [facility] Monocytes/100 WBC Auto (Bld) Ordered By: Chuck Chacon on 03-07-2023 Monocytes/100 WBC (Bld) 8.7 % . [facility] Neutrophils Auto (Bld) [#/Vo l]Ordered By: Chuck Chacon on 03-07-2023 Neutrophils (Bld) [#/Vol] 4.2 10*3/uL 1.8-7.7 [facility] Neutrophils/100 WBC Auto (Bl d)Ordered By: Chuck Chacon on 03-07-2023 Neutrophils/100 WBC (Bld) 60.8 % . [facility] No Panel InformationOrdered By: Chuck Chacon on 03-07-2023 Estimated GFR (CKD-EPI) > 60.0 mL/Min [facility] Creatinine Clearance (Chem 46.94 [facility] Nucleated erythrocytes [Pres ence] in Blood by Automated countOrdered By: Chuck Chacon on 03-07-2023 Nucleated RBC Auto Ql (Bld) 0.0 /100{WBC} 0-0.5 [facility] Platelet mean volume Auto (B ld) [Entitic vol]Ordered By: Chuck Chacon on 03-07-2023 Platelet mean volume (Bld) [Entitic vol] 7.5 fL 6.3-10.7 [facility] Platelets Auto (Bld) [#/Vol] Ordered By: Chuck Chacon on 03-07-2023 Platelets (Bld) [#/Vol] 232 10*3/uL 150-450 [facility] Potassium [Moles/volume] in Serum or PlasmaOrdered By: Chuck Chacon on 03-07-2023 Potassium [Moles/Vol] 4.4 mmol/L 3.5-5.1 [facility] RBC Auto (Bld) [#/Vol]Ordere d By: Chuck Chacon on 03-07-2023 RBC (Bld) [#/Vol] 3.80 10*6/uL 3.60-5.00 [facility] Serum or plasma anion gap de terminationOrdered By: Chuck Chacon on 03-07-2023 Anion gap [Moles/Vol] 6.6 mmol/L 6.0-15.0 [facility] Sodium [Moles/volume] in Ser um or PlasmaOrdered By: Chuck Chacon on 03-07-2023 Sodium [Moles/Vol] 133 mmol/L 136-145 [facility] Urea nitrogen [Mass/volume] in Serum or PlasmaOrdered By: Cuhck Chacon on 03-07-2023 Urea nitrogen [Mass/Vol] 8 mg/dL 01-03 [facility] WBC Auto (Bld) [#/Vol]Ordere d By: Chuck Chacon on 03-07-2023 WBC (Bld) [#/Vol] 6.8 10*3/uL 3.8-11.6 [facility] A1C with Estimated Average G luon 03-06-2023 Glucose [Mass/Vol] 120 mg/dL Normal [facility] Comment on above: Result Comment: PERF ORMED BY: [place] [address] PATHOLOGIST [employer]RO[employer] WHEELS AND AXLES INSPECTOR RAQUEL LOPEZ M.D. Performed By: #### B WATER SUPPLY TECHNICIAN, BMP, PT, PTT, HS TROP, CBC, TSH3, CK #### [facility] [address] HbA1c (Bld) [Mass fraction] 5.8 % High 4.3-5.6 [facility] Comment on above: Result Comment: Incr eased risk for diabetes: 5.7 - 6.4 diabetes: >6.4 glycemic control for adults with diabetes: <7.0 Performed By: #### B WATER SUPPLY TECHNICIAN, BMP, PT, PTT, HS TROP, CBC, TSH3, CK #### [facility] [address] Alanine aminotransferase [En zymatic activity/volume] in Serum or PlasmaOrdered By: Obaydah Daromar on 03-06-2023 ALT [Catalytic activity/Vol] 17 U/L 7-52 [facility] Albumin [Mass/volume] in Ser um or Plasma by Bromocresol green (BCG) dye binding methoOrdered By: Obaydah Daromar on 03-06-2023 Albumin BCG dye [Mass/Vol] 4.3 g/dL 3.5-5.7 [facility] Alkaline phosphatase [Enzyma tic activity/volume] in Serum or PlasmaOrdered By: Obaydah Daromar on 03-06-2023 ALP [Catalytic activity/Vol] 45 U/L 34-104 [facility] Aspartate aminotransferase [ Enzymatic activity/volume] in Serum or PlasmaOrdered By: Obaydah Daromar on 03-06-2023 AST [Catalytic activity/Vol] 16 U/L 13-39 [facility] Bilirubin.total [Mass/volume ] in Serum or PlasmaOrdered By: Obaydah Daromar on 03-06-2023 Bilirubin [Mass/Vol] 0.5 mg/dL 0.3-1.0 [facility] Cholesterol [Mass/volume] in Serum or PlasmaOrdered By: Obaydah Daromar on 09-25-2023 Cholesterol [Mass/Vol] 88 mg/dL 140-200 [facility] Comment on above: Chol less than 200 m g/dl low riskChol 201-239 mg/dl borderline riskChol 240 mg/dl and greater high risk Cholesterol in LDL Calc [Mas s/Vol]Ordered By: Jemal Gonzalezomaanna on 03-06-2023 Cholesterol in LDL [Mass/Vol] 29 mg/dL 0-100 [facility] Comment on above: LDL ATP III CLASSIFI CATIONLDL less than 100 mg/dL OptimalLDL 100-129 mg/dL Near or above optimalLDL 130-159 mg/dL Borderline highLDL 160-189 mg/dL HighLDL greater than 189 mg/dL Very high Cholesterol in VLDL Calc [Ma ss/Vol]Ordered By: Tradamarck Gonzalezomaanna on 03-06-2023 Cholesterol in VLDL [Mass/Vol] 16 mg/dL [facility] Complete Blood Count Auto Di ffon 03-06-2023 Basophils (Bld) [#/Vol] 0.0 10*3/uL Normal 0.0-0.2 [facility] Comment on above: Result Comment: PERF ORMED BY: [place] [address] PATHOLOGIST [employer]RO[employer] WHEELS [employer] AXLES INSPECTOR RAQUEL LOPEZ M.D. Performed By: #### B WATER SUPPLY TECHNICIAN, BMP, PT, PTT, HS TROP, CBC, TSH3, CK #### [facility] [address] [place] [address] [place] Basophils/100 WBC (Bld) 0.6 % Normal . [facility] Comment on above: Performed By: #### B WATER SUPPLY TECHNICIAN, BMP, PT, PTT, HS TROP, CBC, TSH3, CK #### [facility] [address] [place] [address] [place] Eosinophils (Bld) [#/Vol] 0.3 10*3/uL Normal 0.0-0.45 [facility] Comment on above: Performed By: #### B WATER SUPPLY TECHNICIAN, BMP, PT, PTT, HS TROP, CBC, TSH3, CK #### [facility] [address] [place] [address] [place] Eosinophils/100 WBC (Bld) 4.2 % Normal . [facility] Comment on above: Performed By: #### B WATER SUPPLY TECHNICIAN, BMP, PT, PTT, HS TROP, CBC, TSH3, CK #### [address] Erythrocyte distribution width (RBC) [Ratio] 12.9 % Normal 11.9-15.3 [facility] Comment on above: Performed By: #### B WATER SUPPLY TECHNICIAN, BMP, PT, PTT, HS TROP, CBC, TSH3, CK #### [address] Hematocrit (Bld) [Volume fraction] 37.9 % Normal 34.0-46.4 [facility] Comment on above: Performed By: #### B WATER SUPPLY TECHNICIAN, BMP, PT, PTT, HS TROP, CBC, TSH3, CK #### [address] Hemoglobin (Bld) [Mass/Vol] 13.0 g/dL Normal 11.8-15.4 [facility] Comment on above: Performed By: #### B WATER SUPPLY TECHNICIAN, BMP, PT, PTT, HS TROP, CBC, TSH3, CK #### [address] Lymphocytes (Bld) [#/Vol] 1.7 10*3/uL Normal 1.00-4.8 [facility] Comment on above: Performed By: #### B WATER SUPPLY TECHNICIAN, BMP, PT, PTT, HS TROP, CBC, TSH3, CK #### [address] Lymphocytes/100 WBC (Bld) 22.0 % Normal . [facility] Comment on above: Performed By: #### B WATER SUPPLY TECHNICIAN, BMP, PT, PTT, HS TROP, CBC, TSH3, CK #### [address] MCH (RBC) [Entitic mass] 31.5 pg Normal 24.7-34.3 [facility] Comment on above: Performed By: #### B WATER SUPPLY TECHNICIAN, BMP, PT, PTT, HS TROP, CBC, TSH3, CK #### [address] [place] [address] [place] MCV (RBC) [Entitic vol] 91.9 fL Normal 80-100 [facility] Comment on above: Performed By: #### B WATER SUPPLY TECHNICIAN, BMP, PT, PTT, HS TROP, CBC, TSH3, CK #### [address] Mean Corpuscular HGB Conc 34.3 g/dL Normal 32.0-35.0 [facility] Comment on above: Performed By: #### B WATER SUPPLY TECHNICIAN, BMP, PT, PTT, HS TROP, CBC, TSH3, CK #### [address] Monocytes (Bld) [#/Vol] 0.6 10*3/uL Normal 0.0-0.8 [facility] Comment on above: Performed By: #### B WATER SUPPLY TECHNICIAN, BMP, PT, PTT, HS TROP, CBC, TSH3, CK #### [address] Monocytes/100 WBC (Bld) 8.2 % Normal . [facility] Comment on above: Performed By: #### B WATER SUPPLY TECHNICIAN, BMP, PT, PTT, HS TROP, CBC, TSH3, CK #### [address] Neutrophils (Bld) [#/Vol] 5.1 10*3/uL Normal 1.8-7.7 [facility] Comment on above: Performed By: #### B WATER SUPPLY TECHNICIAN, BMP, PT, PTT, HS TROP, CBC, TSH3, CK #### [address] Neutrophils/100 WBC (Bld) 65.0 % Normal . [facility] Comment on above: Performed By: #### B WATER SUPPLY TECHNICIAN, BMP, PT, PTT, HS TROP, CBC, TSH3, CK #### [address] NRBC% 0.1 /100{WBC} Normal 0-0.5 [facility] Comment on above: Performed By: #### B WATER SUPPLY TECHNICIAN, BMP, PT, PTT, HS TROP, CBC, TSH3, CK #### [address] Platelet mean volume (Bld) [Entitic vol] 7.4 fL Normal 6.3-10.7 [facility] Comment on above: Performed By: #### B WATER SUPPLY TECHNICIAN, BMP, PT, PTT, HS TROP, CBC, TSH3, CK #### [address] Platelets (Bld) [#/Vol] 257 10*3/uL Normal 150-450 [facility] Comment on above: Performed By: #### B WATER SUPPLY TECHNICIAN, BMP, PT, PTT, HS TROP, CBC, TSH3, CK #### [address] RBC (Bld) [#/Vol] 4.12 10*6/uL Normal 3.60-5.00 [facility] Comment on above: Performed By: #### B WATER SUPPLY TECHNICIAN, BMP, PT, PTT, HS TROP, CBC, TSH3, CK #### [address] WBC (Bld) [#/Vol] 7.8 10*3/uL Normal 3.8-11.6 [facility] Comment on above: Performed By: #### B WATER SUPPLY TECHNICIAN, BMP, PT, PTT, HS TROP, CBC, TSH3, CK #### [address] Comprehensive Metabolic Pane zofia 03-06-2023 Albumin [Mass/Vol] 4.3 g/dL Normal 3.5-5.7 [facility] Comment on above: Performed By: #### B WATER SUPPLY TECHNICIAN, BMP, PT, PTT, HS TROP, CBC, TSH3, CK #### [address] Albumin/Globulin [Mass ratio] 1.9 {ratio} Normal [facility] Comment on above: Performed By: #### B WATER SUPPLY TECHNICIAN, BMP, PT, PTT, HS TROP, CBC, TSH3, CK #### [place] [id number] [place] ALP [Catalytic activity/Vol] 45 U/L Normal 34-104 [facility] Comment on above: Performed By: #### B WATER SUPPLY TECHNICIAN, BMP, PT, PTT, HS TROP, CBC, TSH3, CK #### [address] ALT [Catalytic activity/Vol] 17 U/L Normal 7-52 [facility] Comment on above: Performed By: #### B WATER SUPPLY TECHNICIAN, BMP, PT, PTT, HS TROP, CBC, TSH3, CK #### [address] Anion gap [Moles/Vol] 10.4 mmol/L Normal 6.0-15.0 [facility] Comment on above: Performed By: #### B WATER SUPPLY TECHNICIAN, BMP, PT, PTT, HS TROP, CBC, TSH3, CK #### [address] AST [Catalytic activity/Vol] 16 U/L Normal 13-39 [facility] Comment on above: Performed By: #### B WATER SUPPLY TECHNICIAN, BMP, PT, PTT, HS TROP, CBC, TSH3, CK #### [address] Bilirubin [Mass/Vol] 0.5 mg/dL Normal 0.3-1.0 [facility] Comment on above: Performed By: #### B WATER SUPPLY TECHNICIAN, BMP, PT, PTT, HS TROP, CBC, TSH3, CK #### [address] Calcium [Mass/Vol] 9.2 mg/dL Normal 8.6-10.3 [facility] Comment on above: Performed By: #### B WATER SUPPLY TECHNICIAN, BMP, PT, PTT, HS TROP, CBC, TSH3, CK #### [address] Chloride [Moles/Vol] 98 mmol/L Normal 98-107 [facility] Comment on above: Performed By: #### B WATER SUPPLY TECHNICIAN, BMP, PT, PTT, HS TROP, CBC, TSH3, CK #### [facility] [address] CO2 [Moles/Vol] 24.9 mmol/L Normal 21.0-31.0 [facility] Comment on above: Performed By: #### B WATER SUPPLY TECHNICIAN, BMP, PT, PTT, HS TROP, CBC, TSH3, CK #### [facility] [address] Creatinine [Mass/Vol] 0.85 mg/dL Normal 0.60-1.20 [facility] Comment on above: Performed By: #### B WATER SUPPLY TECHNICIAN, BMP, PT, PTT, HS TROP, CBC, TSH3, CK #### [address] Creatinine Clr Calc Pharmacy 45.45 [facility] Comment on above: Performed By: #### B WATER SUPPLY TECHNICIAN, BMP, PT, PTT, HS TROP, CBC, TSH3, CK #### [address] GFR/1.73 sq M.predicted MDRD (S/P/Bld) [Vol rate/Area] mL/min/{1.73_m2} [facility] Comment on above: Performed By: #### B WATER SUPPLY TECHNICIAN, BMP, PT, PTT, HS TROP, CBC, TSH3, CK #### [address] Globulin (S) [Mass/Vol] 2.3 g/dL [facility] Comment on above: Performed By: #### B WATER SUPPLY TECHNICIAN, BMP, PT, PTT, HS TROP, CBC, TSH3, CK #### [address] Glucose [Mass/Vol] 97 mg/dL Normal 70-100 [facility] Comment on above: Result Comment: [place] Glucose Reference Range is dependent on time and content of last meal. Glucose of more than 200 mg/dL in a nonstressed, ambulatory subject supports the diagnosis of Diabetes Mellitus. ADA recommended reference range Performed By: #### B WATER SUPPLY TECHNICIAN, BMP, PT, PTT, HS TROP, CBC, TSH3, CK #### [address] [place] [address] [place] Potassium [Moles/Vol] 4.3 mmol/L Normal 3.5-5.1 [facility] Comment on above: Performed By: #### B WATER SUPPLY TECHNICIAN, BMP, PT, PTT, HS TROP, CBC, TSH3, CK #### [facility] [address] Protein [Mass/Vol] 6.6 g/dL Normal 6.4-8.9 [facility] Comment on above: Performed By: #### B WATER SUPPLY TECHNICIAN, BMP, PT, PTT, HS TROP, CBC, TSH3, CK #### [address] Sodium [Moles/Vol] 129 mmol/L Low 136-145 [facility] Comment on above: Performed By: #### B WATER SUPPLY TECHNICIAN, BMP, PT, PTT, HS TROP, CBC, TSH3, CK #### [address] Urea nitrogen [Mass/Vol] 14 mg/dL Normal 7-25 [facility] Comment on above: Performed By: #### B WATER SUPPLY TECHNICIAN, BMP, PT, PTT, HS TROP, CBC, TSH3, CK #### [address] Dipstick and Microscopicon 0 03-06-2023 Appearance (U) Clear Normal Clear [facility] Comment on above: Order Comment: Name Collection Type:: Clean-Voided Midstream Performed By: #### A DDONUAPLUS #### [address] Bacteria,Urine 1+ High None Seen [facility] Comment on above: Order Comment: Name Collection Type:: Clean-Voided Midstream Performed By: #### A DDONUAPLUS #### [address] Bilirubin,Urine Negative Normal Negative [facility] Comment on above: Order Comment: Name Collection Type:: Clean-Voided Midstream Performed By: #### A DDONUAPLUS #### [address] [place] [address] [place] Color (U) Yellow Normal Yellow [facility] Comment on above: Order Comment: Name Collection Type:: Clean-Voided Midstream Performed By: #### A DDONUAPLUS #### [facility] [address] [place] [address] [place] Glucose Ql (U) Normal Normal Normal [facility] Comment on above: Order Comment: Name Collection Type:: Clean-Voided Midstream Performed By: #### A DDONUAPLUS #### [place] [address] [place] Hyaline Casts,Urine None Seen Normal 0-1 [facility] Comment on above: Order Comment: Name Collection Type:: Clean-Voided Midstream Result Comment: PERF ORMED BY: [place] [address] PATHOLOGIST [employer]RO[employer] WHEELS AND AXLES INSPECTOR RAQUEL LOPEZ M.D. Performed By: #### A DDONUAPLUS #### [place] [address] [place] Ketones Ql (U) Trace High Negative [facility] Comment on above: Order Comment: Name Collection Type:: Clean-Voided Midstream Performed By: #### A DDONUAPLUS #### [place] [address] [place] Leukocyte esterase Test strip Ql (U) 1+ High Negative [facility] Comment on above: Order Comment: Name Collection Type:: Clean-Voided Midstream Performed By: #### A DDONUAPLUS #### [facility] [address] [place] [address] [place] Nitrite,Urine Negative Normal Negative [facility] Comment on above: Order Comment: Name Collection Type:: Clean-Voided Midstream Performed By: #### A DDONUAPLUS #### [place] [address] [place] Occult Blood,Urine Negative Normal Negative [facility] Comment on above: Order Comment: Name Collection Type:: Clean-Voided Midstream Result Comment: PERF ORMED BY: [place] [address] PATHOLOGIST RA[employer]RO[employer] WHE[employer] AXLES INSPECTOR RAQUEL LOPEZ M.D. Performed By: #### A DDONUAPLUS #### [address] pH (U) 6.0 [pH] Normal 5.0-9.0 [facility] Comment on above: Order Comment: Name Collection Type:: Clean-Voided Midstream Performed By: #### A DDONUAPLUS #### [address] Protein,Urine Negative Normal Negative [facility] Comment on above: Order Comment: Name Collection Type:: Clean-Voided Midstream Performed By: #### A DDONUAPLUS #### [address] RBC,Urine None Seen Normal 0-4 [facility] Comment on above: Order Comment: Name Collection Type:: Clean-Voided Midstream Performed By: #### A DDONUAPLUS #### [address] Renal Epithelial Cells,Urine Rare Normal 0-1 [facility] Comment on above: Order Comment: Name Collection Type:: Clean-Voided Midstream Performed By: #### A DDONUAPLUS #### [address] Specificy [place],Urine 1.015 Normal 1.001-1.03 0 [facility] Comment on above: Order Comment: Name Collection Type:: Clean-Voided Midstream Performed By: #### A DDONUAPLUS #### [address] Squamous Epithelial Cell,Urine 3-4 High 0-2 [facility] Comment on above: Order Comment: Name Collection Type:: Clean-Voided Midstream Performed By: #### A DDONUAPLUS #### [address] Urobilinogen,Urine Normal Normal Normal [facility] Comment on above: Order Comment: Name Collection Type:: Clean-Voided Midstream Performed By: #### A DDONUAPLUS #### [facility] [address] WBC,Urine 3-4 Normal 0-4 [facility] Comment on above: Order Comment: Name Collection Type:: Clean-Voided Midstream Performed By: #### A DDONUAPLUS #### [facility] [address] echo transthoracicon PENDING SALE TO [facility] echo transthoracic [facility] [place] [address] [place] [address] Echocardiogram Signed Patient: Steven Harding MR#: [id number] 1 : 1940 Acct:[id number] Age/Sex: 83 / F ADM Date: 03/05/23 Loc: Room: [address] [place] [address] Type: ADM INOo Attending Dr: Chuck Chacon MD Ordering Provider: Jemal Jones MD Date of Service: 03/06/23 PENDING SALE TO [facility]/PENDING SALE TO [facility] echo transthoracic: Dizziness Copies to: MD Jemal Tello MD Weight: 140 lb Performed By: FREDDIE Vallejo BSA: 1.6 m2 BP: 160/69 mmHg HR: 75 Reason For Study: Dizziness History: aortic aneurysm, HTN, SD, pre-DM, PCI, former smoker, CAD Interpretation Summary [...] LV V1 VTI: 22.1 cm Transcribed By: SCV Performed At: 03/06/23 1029 Signed By: Karli Dougherty MD 03/06/23 1231 [facility] Free T4 (Free Thyroxine)on 0 03-06-2023 Free T4 [Mass/Vol] 1.01 ng/dL Normal 0.61-1.12 [facility] Comment on above: Performed By: #### B WATER SUPPLY TECHNICIAN, BMP, PT, PTT, HS TROP, CBC, TSH3, CK #### [facility] [address] Globulin Calc (S) [Mass/Vol] Ordered By: Jemal Jones on 03-06-2023 Globulin (S) [Mass/Vol] 2.3 g/dL [facility] Glucose Glucometer (BldC) [M ass/Vol]Ordered By: Jemal Jones on 03-06-2023 Glucose [Mass/Vol] 104 mg/dL [facility] Comment on above: Random Glucose Refer ence Range is dependent on time and content of last meal. Glucose of more than 200 mg/dL in a nonstressed, ambulatory subject supports the diagnosis of Diabetes Mellitus. Glucose Poct Glucometerson 0 03-06-2023 Glucose [Mass/Vol] 104 mg/dL Normal [facility] Comment on above: Result Comment: [place] om Glucose Reference Range is dependent on time and content of last meal. Glucose of more than 200 mg/dL in a nonstressed, ambulatory subject supports the diagnosis of Diabetes Mellitus. PERFORMED BY: [facility] [address] [place] [address] PATHOLOGIST [employer] WHEEL[employer] AND AXLES INSPECTOR RAQUEL LOPEZ M.D. Performed By: #### B WATER SUPPLY TECHNICIAN, BMP, PT, PTT, HS TROP, CBC, TSH3, CK #### [facility] [address] Glucose mean value [Mass/vol ume] in Blood Estimated from glycated hemoglobinOrdered By: Jemal Jones on 03-06-2023 Average glucose Estimated from glycated hemoglobin (Bld) [Mass/Vol] 120 mg/dL [facility] Hemoglobin A1c percentageOrd ered By: Jemal Jones on 03-06-2023 HbA1c (Bld) [Mass fraction] 5.8 % 4.3-5.6 [facility] Comment on above: Increased risk for d iabetes: 5.7 - 6.4diabetes: >6.4glycemic control for adults with diabetes: <7.0 Lipid Panelon 03-06-2023 Cholesterol [Mass/Vol] 88 mg/dL Low 140-200 [facility] Comment on above: Result Comment: Chol less than 200 mg/dl low risk Chol 201-239 mg/dl borderline risk Chol 240 mg/dl and greater high risk Performed By: #### B WATER SUPPLY TECHNICIAN, BMP, PT, PTT, HS TROP, CBC, TSH3, CK #### [facility] [address] Cholesterol in HDL [Mass/Vol] 42 mg/dL Normal 23-92 [facility] Comment on above: Result Comment: HDL CHOL ATP-III CLASSIFICATION Cardiovascular Risk HDL > or equal to 60 mg/dL LOW HDL < 40 mg/dL HIGH Performed By: #### B WATER SUPPLY TECHNICIAN, BMP, PT, PTT, HS TROP, CBC, TSH3, CK #### [facility] [address] Cholesterol.total/Chol esterol in HDL [Mass ratio] 2.1 {ratio} Normal <5.0 [facility] Comment on above: Performed By: #### B WATER SUPPLY TECHNICIAN, BMP, PT, PTT, HS TROP, CBC, TSH3, CK #### [facility] [address] LDL Cholesterol,Calculated 29 mg/dL Normal 0-100 [facility] Comment on above: Result Comment: LDL ATP III CLASSIFICATION LDL less than 100 mg/dL Optimal LDL 100-129 mg/dL Near or above optimal LDL 130-159 mg/dL Borderline high LDL 160-189 mg/dL High LDL greater than 189 mg/dL Very high Performed By: #### B WATER SUPPLY TECHNICIAN, BMP, PT, PTT, HS TROP, CBC, TSH3, CK #### [facility] [address] Triglyceride w/Reflex 84 mg/dL Normal 0-149 [facility] Comment on above: Result Comment: TRIG ATP III CLASSIFICATION TRIG less than 150 mg/dL Normal TRIG 150-199 mg/dL Borderline high TRIG 200-500 mg/dL High TRIG greater than 500 mg/dL Very high Standard traceable to the Center for Disease Conrtrol and Prevention (CDC) test method. Performed By: #### B WATER SUPPLY TECHNICIAN, BMP, PT, PTT, HS TROP, CBC, TSH3, CK #### [facility] [address] [place] [address] [place] VLDL CHOLESTEROL 16 mg/dL Normal [facility] Comment on above: Performed By: #### B WATER SUPPLY TECHNICIAN, BMP, PT, PTT, HS TROP, CBC, TSH3, CK #### [facility] [address] [place] [address] [place] Magnesiumon 03-06-2023 Magnesium [Mass/Vol] 1.4 mg/dL Low 1.9-2.7 [facility] Comment on above: Performed By: #### B WATER SUPPLY TECHNICIAN, BMP, PT, PTT, HS TROP, CBC, TSH3, CK #### [facility] [address] [place] [address] [place] Protein [Mass/volume] in Ser um or PlasmaOrdered By: Jemal Gonzalezomar on 03-06-2023 Protein [Mass/Vol] 6.6 g/dL 6.4-8.9 [facility] Serum or plasma albumin/glob ulin mass ratioOrdered By: Jemal Jones on 03-06-2023 Albumin/Globulin [Mass ratio] 1.9 {ratio} [facility] Serum or plasma high density lipoprotein (HDL) cholesterol measurementOrdered By: Jemal Jones on 03-06-2023 Cholesterol in HDL [Mass/Vol] 42 mg/dL 23- [facility] Comment on above: HDL CHOL ATP-III CLA SSIFICATION Cardiovascular RiskHDL > or equal to 60 mg/dL LOWHDL < 40 mg/dL HIGH Serum or plasma total choles terol/high density lipoprotein (HDL) cholesterol mass ratOrdered By: Jemal Velar on 03-06-2023 Cholesterol.total/Chol esterol in HDL [Mass ratio] 2.1 {ratio} <5.0 [facility] Thyroxine (T4) free [Mass/vo lume] in Serum or PlasmaOrdered By: Jemal Jones on 03-06-2023 Free T4 [Mass/Vol] 1.01 ng/dL 0.61-1.12 [facility] Triglyceride [Mass/volume] i n Serum or PlasmaOrdered By: Jemal Jones on 03-06-2023 Triglyceride [Mass/Vol] 84 mg/dL 0-149 [facility] Comment on above: TRIG ATP III CLASSIF ICATIONTRIG less than 150 mg/dL NormalTRIG 150-199 mg/dL Borderline highTRIG 200-500 mg/dL High TRIG greater than 500 mg/dL Very highStandard traceable to the Center for Disease Conrtrol and Prevention (CDC) test method. Triiodothyronine (T3) Totalo n 03-06-2023 Triiodothyronine (T3) Total 1.29 ng/mL Normal 0.87-1.78 [facility] Comment on above: Result Comment: PERF ORMED BY: [place] [address] PATHOLOGIST [employer] WHEEL[employer] AND AXLES INSPECTOR RAQUEL LOPEZ M.D. Performed By: #### B WATER SUPPLY TECHNICIAN, BMP, PT, PTT, HS TROP, CBC, TSH3, CK #### [address] Triiodothyronine (T3) [Mass/ volume] in Serum or PlasmaOrdered By: Jemal Jones on 03-06-2023 T3 [Mass/Vol] 1.29 ng/mL 0.87-1.78 [facility] US carotid doppler BIon 02-11 US carotid doppler BI [facility] [place] [address] Ultrasound Report Signed Patient: Steven Harding MR#: [id number] 1 : 1940 Acct:[id number] Age/Sex: 83 / F ADM Date: 03/05/23 Loc: Room: [address] [place] [address] Type: ADM INOo Attending Dr: Chuck Chacon [...] Bethel Sabillon M.D.03/06/2023 2:21 PM Dictation Location: RAD-DOC-04 Tech: Marla Cottrell Transcribed By: OSCAR 03/06/23 142 Dictated By: Bethel Sabillon MD 03/06/23 1419 Signed By: 03/06/23 142 [facility] Activated partial thrombopla stin time (aPTT) in platelet poor plasma by coagulation aOrdered By: Monique Tierney on 03-05-2023 aPTT Coag (PPP) [Time] 25.4 s 25.1-36.5 [facility] Comment on above: A hematocrit value g reater than 55% may lead to inaccurate results in coagulation testing. Patients having hematocrit values >55% require a special collection tube for coagulation studies. Please contact the laboratory at [phone] for redraw instructions. Automated epithelial cells c ount in urine sediment (number/area)Ordered By: jacqui [place] on 03-05-2023 Epithelial cells Auto (Urine sed) [#/Area] 3-4 [HPF] 0-2 [facility] Automated erythrocytes count in urine sediment (number/area)Ordered By: [facility] Robert on 03-05-2023 RBC Auto (Urine sed) [#/Area] None seen [HPF] 0-4 [facility] Automated leukocytes count i n urine sediment (number/area)Ordered By: jacqui [place] on 03-05-2023 WBC Auto (Urine sed) [#/Area] 3-4 [HPF] 0-4 [facility] Automated urine hyaline cast s count (number/volume)Ordered By: [facility] [place] on 03-05-2023 Hyaline casts Auto (U) [#/Vol] None seen [LPF] 0-1 [facility] B-Type Natriuretic Peptideon 03-05-2023 Natriuretic peptide B (Bld) [Mass/Vol] 42.0 pg/mL Normal 5-100 [facility] Comment on above: Result Comment: PERF ORMED BY: [place] [address] PATHOLOGIST [employer]ILROAD WHEELS AND AXLES INSPECTOR RAQUEL LOPEZ M.D. Performed By: #### B WATER SUPPLY TECHNICIAN, BMP, PT, PTT, HS TROP, CBC, TSH3, CK #### [place] [id number] [employer] Basic Metabolic Panelon 02-11 Anion gap [Moles/Vol] 17.1 mmol/L High 6.0-15.0 [facility] Comment on above: Performed By: #### B WATER SUPPLY TECHNICIAN, BMP, PT, PTT, HS TROP, CBC, TSH3, CK #### [address] Calcium [Mass/Vol] 9.7 mg/dL Normal 8.6-10.3 [facility] Comment on above: Performed By: #### B WATER SUPPLY TECHNICIAN, BMP, PT, PTT, HS TROP, CBC, TSH3, CK #### [address] Chloride [Moles/Vol] 93 mmol/L Low 98-107 [facility] Comment on above: Performed By: #### B WATER SUPPLY TECHNICIAN, BMP, PT, PTT, HS TROP, CBC, TSH3, CK #### [address] CO2 [Moles/Vol] 19.4 mmol/L Low 21.0-31.0 [facility] Comment on above: Performed By: #### B WATER SUPPLY TECHNICIAN, BMP, PT, PTT, HS TROP, CBC, TSH3, CK #### [address] Creatinine [Mass/Vol] 0.84 mg/dL Normal 0.60-1.20 [facility] Comment on above: Performed By: #### B WATER SUPPLY TECHNICIAN, BMP, PT, PTT, HS TROP, CBC, TSH3, CK #### [address] Creatinine Clr Calc Pharmacy 46.72 [facility] Comment on above: Performed By: #### B WATER SUPPLY TECHNICIAN, BMP, PT, PTT, HS TROP, CBC, TSH3, CK #### [place] [address] [place] GFR/1.73 sq M.predicted MDRD (S/P/Bld) [Vol rate/Area] mL/min/{1.73_m2} [facility] Comment on above: Performed By: #### B WATER SUPPLY TECHNICIAN, BMP, PT, PTT, HS TROP, CBC, TSH3, CK #### [address] [place] [address] [place] Glucose [Mass/Vol] 85 mg/dL Normal 70-100 [facility] Comment on above: Result Comment: [facility] Glucose Reference Range is dependent on time and content of last meal. Glucose of more than 200 mg/dL in a nonstressed, ambulatory subject supports the diagnosis of Diabetes Mellitus. ADA recommended reference range Performed By: #### B WATER SUPPLY TECHNICIAN, BMP, PT, PTT, HS TROP, CBC, TSH3, CK #### [facility] [address] Potassium [Moles/Vol] 4.5 mmol/L Normal 3.5-5.1 [facility] Comment on above: Performed By: #### B WATER SUPPLY TECHNICIAN, BMP, PT, PTT, HS TROP, CBC, TSH3, CK #### [facility] [address] Sodium [Moles/Vol] 125 mmol/L Low 136-145 [facility] Comment on above: Performed By: #### B WATER SUPPLY TECHNICIAN, BMP, PT, PTT, HS TROP, CBC, TSH3, CK #### [facility] [address] Urea nitrogen [Mass/Vol] 17 mg/dL Normal 7-25 [facility] Comment on above: Performed By: #### B WATER SUPPLY TECHNICIAN, BMP, PT, PTT, HS TROP, CBC, TSH3, CK #### [facility] [address] Basophils Auto (Bld) [#/Vol] Ordered By: Monique Tierney on 03-05-2023 Basophils (Bld) [#/Vol] 0.1 10*3/uL 0.0-0.2 [facility] Basophils/100 WBC Auto (Bld) Ordered By: Monique Tierney on 03-05-2023 Basophils/100 WBC (Bld) 0.5 % . [facility] Bilirubin Test strip Ql (U)O rdered By: Jemal [place] on 03-05-2023 Bilirubin Ql (U) Negative Negative [facility] CT angio neckon 03-05-2023 CT angio neck [facility] Main [place] [address] [place] [address] CT Scan Report Signed Patient: Steven Harding MR#: [id number] 1 : 1940 Acct:[id number] Age/Sex: 83 / F ADM Date: 03/05/23 Loc: ER Room: Type: [facility] Attending Dr: Copies to: Monique Tierney MD Ordering Provider: Monique Tierney MD Date of Service: 03/05/23 CT/CT angio neck: episodic dizziness, episode 2 wks ago face tinglin ([id number]) CT/CT angio head: episodic dizziness, episode 2 [...] Bethel Snyder M.D.03/05/2023 7:34 PM Dictation Location: [place] [address] Transcribed By: OSCAR 03/05/231933 Dictated By: Bethel [place] DO 03/05/231928 Signed By: 03/05/231933 [facility] CT head/brain wo conon 03-05 CT head/brain wo con [facility] Main [place] [address] [place] [address] CT Scan Report Signed Patient: Steven Harding MR#: [id number] 1 : 1940 Acct:[id number] Age/Sex: 83 / F ADM Date: 03/05/23 Loc: ER Room: Type: [facility] ER Attending Dr: Copies to: Monique Tierney [...] Bethel Snyder M.D.03/05/2023 7:29 PM Dictation Location: [place] [address] Transcribed By: [facility] 03/05/231928 Dictated By: Bethel [place] DO 03/05/231927 Signed By: 03/05/231928 [facility] Calcium [Mass/volume] in Ser um or PlasmaOrdered By: Monique Tierney on 03-05-2023 Calcium [Mass/Vol] 9.7 mg/dL 8.6-10.3 [facility] Carbon dioxide, total [Moles /volume] in Serum or PlasmaOrdered By: Monique Tierney on 03-05-2023 CO2 [Moles/Vol] 19.4 mmol/L 21.0-31.0 [facility] Chloride [Moles/volume] in S yamilex or PlasmaOrdered By: Monique Tierney on 03-05-2023 Chloride [Moles/Vol] 93 mmol/L 98-107 [facility] Color Auto (U)Ordered By: Ob jacqui [place] on 03-05-2023 Color (U) Yellow Yellow [facility] Complete Blood Count Auto Di ffon 03-05-2023 Basophils (Bld) [#/Vol] 0.1 10*3/uL Normal 0.0-0.2 [facility] Comment on above: Result Comment: PERF ORMED BY: [place] [address] PATHOLOGIST RAILROAD WHEELS AND AXLES INSPECTOR RAQUEL LOPEZ M.D. Performed By: #### B WATER SUPPLY TECHNICIAN, BMP, PT, PTT, HS TROP, CBC, TSH3, CK #### [address] Basophils/100 WBC (Bld) 0.5 % Normal . [facility] Comment on above: Performed By: #### B WATER SUPPLY TECHNICIAN, BMP, PT, PTT, HS TROP, CBC, TSH3, CK #### [address] Eosinophils (Bld) [#/Vol] 0.3 10*3/uL Normal 0.0-0.45 [facility] Comment on above: Performed By: #### B WATER SUPPLY TECHNICIAN, BMP, PT, PTT, HS TROP, CBC, TSH3, CK #### [address] Eosinophils/100 WBC (Bld) 2.8 % Normal . [facility] Comment on above: Performed By: #### B WATER SUPPLY TECHNICIAN, BMP, PT, PTT, HS TROP, CBC, TSH3, CK #### [address] Erythrocyte distribution width (RBC) [Ratio] 12.8 % Normal 11.9-15.3 [facility] Comment on above: Performed By: #### B WATER SUPPLY TECHNICIAN, BMP, PT, PTT, HS TROP, CBC, TSH3, CK #### [address] Hematocrit (Bld) [Volume fraction] 39.9 % Normal 34.0-46.4 [facility] Comment on above: Performed By: #### B WATER SUPPLY TECHNICIAN, BMP, PT, PTT, HS TROP, CBC, TSH3, CK #### [address] Hemoglobin (Bld) [Mass/Vol] 13.6 g/dL Normal 11.8-15.4 [facility] Comment on above: Performed By: #### B WATER SUPPLY TECHNICIAN, BMP, PT, PTT, HS TROP, CBC, TSH3, CK #### [address] Lymphocytes (Bld) [#/Vol] 1.7 10*3/uL Normal 1.00-4.8 [facility] Comment on above: Performed By: #### B WATER SUPPLY TECHNICIAN, BMP, PT, PTT, HS TROP, CBC, TSH3, CK #### [address] Lymphocytes/100 WBC (Bld) 14.7 % Normal . [facility] Comment on above: Performed By: #### B WATER SUPPLY TECHNICIAN, BMP, PT, PTT, HS TROP, CBC, TSH3, CK #### [address] MCH (RBC) [Entitic mass] 31.3 pg Normal 24.7-34.3 [facility] Comment on above: Performed By: #### B WATER SUPPLY TECHNICIAN, BMP, PT, PTT, HS TROP, CBC, TSH3, CK #### [address] MCV (RBC) [Entitic vol] 91.9 fL Normal 80-100 [facility] Comment on above: Performed By: #### B WATER SUPPLY TECHNICIAN, BMP, PT, PTT, HS TROP, CBC, TSH3, CK #### [place] [address] [place] Mean Corpuscular HGB Conc 34.0 g/dL Normal 32.0-35.0 [facility] Comment on above: Performed By: #### B WATER SUPPLY TECHNICIAN, BMP, PT, PTT, HS TROP, CBC, TSH3, CK #### [facility] [address] Monocytes (Bld) [#/Vol] 0.6 10*3/uL Normal 0.0-0.8 [facility] Comment on above: Performed By: #### B WATER SUPPLY TECHNICIAN, BMP, PT, PTT, HS TROP, CBC, TSH3, CK #### [facility] [address] Monocytes/100 WBC (Bld) 18.39 % Normal 0.00-20.00 [facility] Comment on above: Performed By: #### B WATER SUPPLY TECHNICIAN, BMP, PT, PTT, HS TROP, CBC, TSH3, CK #### [facility] [address] Monocytes/100 WBC (Bld) 5.4 % Normal . [facility] Comment on above: Performed By: #### B WATER SUPPLY TECHNICIAN, BMP, PT, PTT, HS TROP, CBC, TSH3, CK #### [facility] [address] Neutrophils (Bld) [#/Vol] 8.7 10*3/uL High 1.8-7.7 [facility] Comment on above: Performed By: #### B WATER SUPPLY TECHNICIAN, BMP, PT, PTT, HS TROP, CBC, TSH3, CK #### [facility] [address] Neutrophils/100 WBC (Bld) 76.6 % Normal . [facility] Comment on above: Performed By: #### B WATER SUPPLY TECHNICIAN, BMP, PT, PTT, HS TROP, CBC, TSH3, CK #### [facility] [address] NRBC% 0.1 /100{WBC} Normal 0-0.5 [facility] Comment on above: Performed By: #### B WATER SUPPLY TECHNICIAN, BMP, PT, PTT, HS TROP, CBC, TSH3, CK #### [facility] [address] Platelet mean volume (Bld) [Entitic vol] 7.5 fL Normal 6.3-10.7 [facility] Comment on above: Performed By: #### B WATER SUPPLY TECHNICIAN, BMP, PT, PTT, HS TROP, CBC, TSH3, CK #### [address] Platelets (Bld) [#/Vol] 285 10*3/uL Normal 150-450 [facility] Comment on above: Performed By: #### B WATER SUPPLY TECHNICIAN, BMP, PT, PTT, HS TROP, CBC, TSH3, CK #### [address] RBC (Bld) [#/Vol] 4.34 10*6/uL Normal 3.60-5.00 [facility] Comment on above: Performed By: #### B WATER SUPPLY TECHNICIAN, BMP, PT, PTT, HS TROP, CBC, TSH3, CK #### [address] WBC (Bld) [#/Vol] 11.4 10*3/uL Normal 3.8-11.6 [facility] Comment on above: Performed By: #### B WATER SUPPLY TECHNICIAN, BMP, PT, PTT, HS TROP, CBC, TSH3, CK #### [address] Creatine Kinaseon 03-05-2023 CK [Catalytic activity/Vol] 18 U/L Low [facility] Comment on above: Performed By: #### B WATER SUPPLY TECHNICIAN, BMP, PT, PTT, HS TROP, CBC, TSH3, CK #### [address] Creatine kinase [Enzymatic a ctivity/volume] in Serum or PlasmaOrdered By: Monique Tierney on 03-05-2023 CK [Catalytic activity/Vol] 18 U/L [facility] Creatinine [Mass/volume] in Serum or PlasmaOrdered By: Monique Tierney on 03-05-2023 Creatinine [Mass/Vol] 0.84 mg/dL 0.60-1.20 [facility] ECG 12 lead ECGon 03-05-2023 ECG 12 lead ECG [facility] Main [address] [address] Electrocardiograph Report Signed Patient: Steven Harding MR#: [id number] 1 : 1940 Acct:[id number] Age/Sex: 83 / F ADM Date: 03/05/23 Loc: Room: [address] [place] [address] Type: ADM INOo Attending Dr: Chuck Chacon [...] fascicular block Confirmed by Hoang Mancia DO ([id number]) on 03/06/2023 8:08:36 PM Referred By: Electronically Signed By:Hoang Mancia DO Transcribed By: MUS Signed By Hoang Mancia DO 2007 Normal [facility] Eosinophils Auto (Bld) [#/Vo l]Ordered By: Monique Tierney on 03-05-2023 Eosinophils (Bld) [#/Vol] 0.3 10*3/uL 0.0-0.45 [facility] Eosinophils/100 WBC Auto (Bl d)Ordered By: Monique Tierney on 03-05-2023 Eosinophils/100 WBC (Bld) 2.8 % . [facility] Erythrocyte distribution wid th Auto (RBC) [Ratio]Ordered By: Monique Tierney on 03-05-2023 Erythrocyte distribution width (RBC) [Ratio] 12.8 % 11.9-15.3 [facility] Glucose [Mass/volume] in Ser um or PlasmaOrdered By: Monique Tierney on 03-05-2023 Glucose [Mass/Vol] 85 mg/dL 70-100 [facility] Comment on above: ADA recommended refe rence rangeRandom Glucose Reference Range is dependent on time and content of last meal. Glucose of more than 200 mg/dL in a nonstressed, ambulatory subject supports the diagnosis of Diabetes Mellitus. Hematocrit Auto (Bld) [Volum e fraction]Ordered By: Monique Tierney on 03-05-2023 Hematocrit (Bld) [Volume fraction] 39.9 % 34.0-46.4 [facility] Hemoglobin [Mass/volume] in BloodOrdered By: Monique Tierney on 03-05-2023 Hemoglobin (Bld) [Mass/Vol] 13.6 g/dL 11.8-15.4 [facility] INR in Platelet poor plasma by Coagulation assayOrdered By: Monique Tierney on 03-05-2023 INR Coag (PPP) [Relative time] 0.9 {INR} [facility] Comment on above: INR Therapeutic Rang [...] on 03-05-2023 Ketones (U) [Mass/Vol] Trace Negative [facility] Leukocytes [#/volume] correc jazmyne for nucleated erythrocytes in Blood by Automated counOrdered By: Monique Tierney on 03-05-2023 WBC corrected for nucl RBC Auto (Bld) [#/Vol] 11.4 10*3/uL 3.8-11.6 [facility] Lymphocytes Auto (Bld) [#/Vo l]Ordered By: Monique Tierney on 03-05-2023 Lymphocytes (Bld) [#/Vol] 1.7 10*3/uL 1.00-4.8 [facility] Lymphocytes/100 WBC Auto (Bl d)Ordered By: Monique Tierney on 03-05-2023 Lymphocytes/100 WBC (Bld) 14.7 % . [facility] MCH Auto (RBC) [Entitic mass ]Ordered By: Monique Tierney on 03-05-2023 MCH (RBC) [Entitic mass] 31.3 pg 24.7-34.3 [facility] MCHC Auto (RBC) [Mass/Vol]Or dered By: Monique Tierney on 03-05-2023 MCHC (RBC) [Mass/Vol] 34.0 g/dL 32.0-35.0 [facility] MCV Auto (RBC) [Entitic vol] Ordered By: Monique Tierney on 03-05-2023 MCV (RBC) [Entitic vol] 91.9 fL 80-100 [facility] Monocyte distribution width [Entitic volume] in Blood by AutomatedOrdered By: Monique Tierney on 03-05-2023 Monocyte distribution width Auto (Bld) [Entitic vol] 18.39 % 0.00-20.00 [facility] Monocytes Auto (Bld) [#/Vol] Ordered By: Monique Tierney on 03-05-2023 Monocytes (Bld) [#/Vol] 0.6 10*3/uL 0.0-0.8 [facility] Monocytes/100 WBC Auto (Bld) Ordered By: Monique Tierney on 03-05-2023 Monocytes/100 WBC (Bld) 5.4 % . [facility] Natriuretic peptide B [Mass/ Vol]Ordered By: Monique Tierney on 03-05-2023 Natriuretic peptide B (Bld) [Mass/Vol] 42.0 pg/mL 5-100 [facility] Neutrophils Auto (Bld) [#/Vo l]Ordered By: Monique Tierney on 03-05-2023 Neutrophils (Bld) [#/Vol] 8.7 10*3/uL 1.8-7.7 [facility] Neutrophils/100 WBC Auto (Bl d)Ordered By: Monique Tierney on 03-05-2023 Neutrophils/100 WBC (Bld) 76.6 % . [facility] Nitrite Test strip Ql (U)Ord ered By: Jemal [place] on 03-05-2023 Nitrite Ql (U) Negative Negative [facility] No Panel InformationOrdered By: Monique Tierney on 03-05-2023 Estimated GFR (CKD-EPI) > 60.0 mL/Min [facility] Creatinine Clearance (Chem 46.72 [facility] Nucleated erythrocytes [Pres ence] in Blood by Automated countOrdered By: Monique Tierney on 03-05-2023 Nucleated RBC Auto Ql (Bld) 0.1 /100{WBC} 0-0.5 [facility] Partial Thromboplastin Timeo n 03-05-2023 aPTT Coag (Bld) [Time] 25.4 s Normal 25.1-36.5 [facility] Comment on above: Result Comment: A he matocrit value greater than 55% may lead to inaccurate results in coagulation testing. Patients having hematocrit values >55% require a special collection tube for coagulation studies. Please contact the laboratory at [phone] for redraw instructions. PERFORMED BY: [place] [address] PATHOLOGIST RAILROAD WHEELS AND AXLES INSPECTOR RQAUEL LOPEZ M.D. Performed By: #### B WATER SUPPLY TECHNICIAN, BMP, PT, PTT, HS TROP, CBC, TSH3, CK #### [address] Platelet mean volume Auto (B ld) [Entitic vol]Ordered By: Monique Tierney on 03-05-2023 Platelet mean volume (Bld) [Entitic vol] 7.5 fL 6.3-10.7 [facility] Platelets Auto (Bld) [#/Vol] Ordered By: Monique Tierney on 03-05-2023 Platelets (Bld) [#/Vol] 285 10*3/uL 150-450 [facility] Potassium [Moles/volume] in Serum or PlasmaOrdered By: Monique Tierney on 03-05-2023 Potassium [Moles/Vol] 4.5 mmol/L 3.5-5.1 [facility] Protein Auto test strip (U) [Mass/Vol]Ordered By: Jemal [place] on 03-05-2023 Protein (U) [Mass/Vol] Negative Negative [facility] Prothrombin Time INRon 03-05 INR Coag (PPP) [Relative time] 0.9 {INR} Normal [facility] Comment on above: Result Comment: INR [...] 3 - 4.5 Performed By: #### B WATER SUPPLY TECHNICIAN, BMP, PT, PTT, HS TROP, CBC, TSH3, CK #### [facility] [address] [place] [id number] [employer] PT Coag (PPP) [Time] 10.9 s Normal 9.0-12.9 [facility] Comment on above: Result Comment: A he matocrit value greater than 55% may lead to inaccurate results in coagulation testing. Patients having hematocrit values >55% require a special collection tube for coagulation studies. Please contact the laboratory at [phone] for redraw instructions. Performed By: #### B WATER SUPPLY TECHNICIAN, BMP, PT, PTT, HS TROP, CBC, TSH3, CK #### [facility] [address] [place] [id number] [place] Prothrombin time (PT)Ordered By: Monique Tierney on 03-05-2023 PT Coag (PPP) [Time] 10.9 s 9.0-12.9 [facility] Comment on above: A hematocrit value g reater than 55% may lead to inaccurate results in coagulation testing. Patients having hematocrit values >55% require a special collection tube for coagulation studies. Please contact the laboratory at [phone] for redraw instructions. RBC Auto (Bld) [#/Vol]Ordere d By: Monique Tierney on 03-05-2023 RBC (Bld) [#/Vol] 4.34 10*6/uL 3.60-5.00 [facility] Serum or plasma anion gap de terminationOrdered By: Monique Tierney on 03-05-2023 Anion gap [Moles/Vol] 17.1 mmol/L 6.0-15.0 [facility] Sodium [Moles/volume] in Ser um or PlasmaOrdered By: Monique Tierney on 09-24-2023 Sodium [Moles/Vol] 125 mmol/L 136-145 [facility] Specific gravity Auto test s trip (U) [Rel density]Ordered By: Jemal [place] on 03-05-2023 Specific gravity (U) [Rel density] 1.015 1.001-1.03 0 [facility] Thyroid Stimulating Hormoneo n 03-05-2023 TSH Qn 0.01 m[IU]/L Low 0.45-5.33 [facility] Comment on above: Result Comment: PERF ORMED BY: [place] [address] PATHOLOGIST RAILROAD WHEELS AND AXLES INSPECTOR RAQUEL LOPEZ M.D. Performed By: #### B WATER SUPPLY TECHNICIAN, BMP, PT, PTT, HS TROP, CBC, TSH3, CK #### [facility] [address] [place], [place] [id number] [place] Thyrotropin [Units/volume] i n Serum or PlasmaOrdered By: Monique Tierney on 03-05-2023 TSH Qn 0.01 m[IU]/L 0.45-5.33 [facility] Troponin I High Sensitivityo n 03-05-2023 Troponin I High Sensitivity 6.3 pg/mL Normal 0.0-15.0 [facility] Comment on above: Result Comment: PERF ORMED BY: [place] [address] PATHOLOGIST RAILRO[employer] WHEELS AND AXLES INSPECTOR RAQUEL LOPEZ M.D. Performed By: #### B WATER SUPPLY TECHNICIAN, BMP, PT, PTT, HS TROP, CBC, TSH3, CK #### [facility] [address] [place] [address] Troponin I.cardiac [Mass/vol ume] in Serum or Plasma by Detection limit <= 0.01 ng/Ordered By: Monique Tierney on 03-05-2023 Troponin I.cardiac DL <= 0.01 ng/mL [Mass/Vol] 6.3 pg/mL 0.0-15.0 [facility] Urea nitrogen [Mass/volume] in Serum or PlasmaOrdered By: Monique Tierney on 03-05-2023 Urea nitrogen [Mass/Vol] 17 mg/dL 7-25 [facility] Urine bacteria detection by automated methodOrdered By: Jemal [place] on 03-05-2023 Bacteria Auto Ql (U) 1+ None Seen [facility] Urine clarity by refractomet ry automatedOrdered By: Jemal [place] on 03-05-2023 Clarity Refractometry automated (U) Clear Clear [facility] Urine glucose measurement by automated test strip (mass/volume)Ordered By: Jemal [place] on 03-05-2023 Glucose Auto test strip (U) [Mass/Vol] Normal mg/dL Normal [facility] Urine hemoglobin detection b y automated test stripOrdered By: Jemal [place] on 03-05-2023 Hemoglobin Auto test strip Ql (U) Negative Negative [facility] Urine leukocyte esterase det ection by automated test stripOrdered By: Jemal [place] on 03-05-2023 Leukocyte esterase Auto test strip Ql (U) 1+ Negative [facility] Urine sediment renal epithel ial cell count by microscopy (number/high power field)Ordered By: Jemal [place] on 03-05-2023 Epithelial cells.renal LM.HPF (Urine sed) [#/Area] Rare [HPF] 0-1 [facility] Urobilinogen Auto test strip (U) [Mass/Vol]Ordered By: Jemal [place] on 03-05-2023 Urobilinogen (U) [Mass/Vol] Normal mg/dL Normal [facility] WBC Auto (Bld) [#/Vol]Ordere d By: Monique Tierney on 03-05-2023 WBC (Bld) [#/Vol] 11.4 10*3/uL 3.8-11.6 [facility] XR chest 2V*on 03-05-2023 XR chest 2V* [facility] [place] [address] XRay Report Signed Patient: Steven Harding MR#: [id number] 1 : 1940 Acct:[id number] Age/Sex: 83 / F ADM Date: 03/05/23 Loc: ER Room: Type: [facility] ER Attending Dr: Copies to: Monique Tierney [...] Bethel Snyder M.D.03/05/2023 7:27 PM Dictation Location: [place] [address] Transcribed By: [facility] 03/05/231926 Dictated By: Bethel [place] DO 03/05/231925 Signed By: 03/05/231926 Normal [facility] pH Auto test strip (U)Ordere d By: Jemal [place] on 03-05-2023 pH (U) 6.0 [pH] 5.0-9.0 [facility] Office Visit (Cardiology)on 02-16-2023 Follow-up visit [...] Weight Tips; Status:Complete - Retrospective Authorization; Done: [id number] Some eating tips that can help you lose weight.; Status:Complete - Retrospective Authorization; Done: [id number] PMH: Coronary artery disease 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 Normal [employer] Tobacco Screening.on 023 Fall risk assessment a) No falls within the last year [facility] [employer] 250 DO Work Phone: Tobacco use status [facility] b) No [facility] 250 DO Work Phone: REVERSE T3on 10-17-2022 Reverse T3, Serum 18.8 ng/dL Normal 9.2-24.1 [facility] Comment on above: Performed By: #### R EVRT3 #### [facility] [address] [address] [address] Ellie Smith T3, TOTAL (TRIIODOTHYRONINE) on 10-06-2022 T3, TOTAL 137 ng/dL Normal 71-180 [facility] Comment on above: Performed By: #### P OCGLUC #### [facility] [address] [address] [address] Ellie Smith FREE T3on 10-05-2022 FREE T3 3.03 pg/mlL Normal 2.18-3.98 [facility] Comment on above: Performed By: #### L ACT #### [facility] [address] [address] [address] Ellie Smith FREE T4on 10-05-2022 Free T4 [Mass/Vol] 1.02 ng/dL Normal 0.76-1.46 [facility] Comment on above: Performed By: #### F T4 #### [facility] [address] [place] [address] Dr. Ellie Smith TSHon 10-05-2022 TSH 0.032 uIU/mL Critically low 0.358-3.74 0 [facility] Comment on above: Performed By: #### L ACT #### [facility] [address] [place] [address] Dr. 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 [employer]IAN Thyroid 60 MG Oral TabletTAKE 1 TABLET [...] Former smoker (V15.82) (Z87.891) nicotine lozenges No alcohol use No caffeine use No illicit drug use Review of Systems Constitutional: not feeling tired. Cardiovascular: no intermittent leg claudication and as noted in HPI. Respirat (more content not included)... Normal [employer] Tobacco Screening.on 023 Adult depression screening assessment No [facility] [employer] 250 DO Work Phone: Fall risk assessment a) No falls within the last year [facility] [employer] 250 DO Work Phone: Tobacco use status CPHS b) No [facility] [employer] 250 DO Work Phone: GLYCOHEMOGLOBIN A1Con 2022 ADA RECOMMENDATION SEE BELOW Normal [facility] Comment on above: Result Comment: ADA RECOMMENDED LIMIT 4.0 - 6.0 ADA THERAPEUTIC TARGET < 7.0 ACTION SUGGESTED > 7.0 Performed By: #### A 1C #### [facility] [address] [address] [address] Ellie Smith Glucose [Mass/Vol] 114 mg/dL Normal [facility] Comment on above: Performed By: #### A 1C #### [facility] [address] [place] [address] Dr. Ellie Smith HbA1c (Bld) [Mass fraction] 5.6 % Normal 4.5-6.2 [facility] Comment on above: Performed By: #### A 1C #### [facility] [address] [place] [address] Dr. Ellie Smith LIPID PROFILEon 08-15-2022 CHOL-HDL RATIO NORM SEE BELOW Normal [facility] Comment on above: Result Comment: 3.3 - 4.4 LOW RISK 4.4 - 7.1 AVERAGE RISK 7.1 - 11.0 MODERATE RISK >11.0 HIGH RISK Performed By: #### R [id number] #### [facility] [address] [place] [address] Dr. Ellie Smith Cholesterol [Mass/Vol] 116 mg/dL Normal <=200 [facility] Comment on above: Performed By: #### R [id number] #### [facility] [address] [place] [address] Dr. Ellie Smith Cholesterol in HDL [Mass/Vol] 60 mg/dL Normal 40-60 [facility] Comment on above: Performed By: #### R [id number] #### [facility] [address] [place] [address] Dr. Ellie Smith Cholesterol in LDL [Mass/Vol] 46.0 mg/dL Normal [facility] Comment on above: Performed By: #### R [id number] #### [facility] [address] [place] [address] Dr. Ellie Smith Cholesterol.total/Chol esterol in HDL [Mass ratio] 1.9 {ratio} Normal [facility] Comment on above: Performed By: #### R [id number] #### [facility] [address] [place] [address] Dr. Ellie Smith HDL NORMAL > or = 60 mg/dl - LO W CARDIOVASCULAR RISK <40 mg/dl - HIGH CARDIOVASCULAR RISK Normal [facility] Comment on above: Performed By: #### R [id number] #### [facility] [address] [place] [address] Dr. Ellie Smith LDL CALC NORMAL SEE BELOW Normal [facility] Comment on above: Result Comment: <100 mg/dl OPTIMAL 100 - 129 mg/dl NEAR OR ABOVE OPTIMAL 130 - 159 mg/dl BORDERLINE HIGH 160 - 189 mg/dl HIGH >190 mg/dl VERY HIGH Performed By: #### R [id number] #### [facility] [address] [place] [address] Dr. Ellie Smith Triglyceride [Mass/Vol] 50 mg/dL Normal <=150 [facility] Comment on above: Performed By: #### R [id number] #### [facility] [address] [place] [address] Dr. Ellie Smith VLDL CALC 10.0 mg/dL Normal [facility] Comment on above: Performed By: #### R [id number] #### [facility] [address] [place] [address] Dr. Ellie Smiht PROF 14(COMP METB)on 023 Albumin [Mass/Vol] 3.9 g/dL Normal 3.4-5.0 [facility] Comment on above: Performed By: #### R [id number] #### [facility] [address] [place] [address] Dr. Ellie Smith Albumin/Globulin [Mass ratio] 1.2 {ratio} Normal [facility] Comment on above: Performed By: #### R EVRT3 #### [facility] [address] [place] [address] Dr. Ellie Smith ALP [Catalytic activity/Vol] 56 U/L Normal 46-116 [facility] Comment on above: Performed By: #### R [id number] #### [facility] [address] [place] [address] Dr. Ellie Smith ALT [Catalytic activity/Vol] 27 U/L Normal 14-59 [facility] Comment on above: Performed By: #### R [id number] #### [facility] [address] [place] [address] Dr. Ellie Smith Anion gap [Moles/Vol] 14.1 mmol/L Normal [facility] Comment on above: Performed By: #### R EVRT3 #### [facility] [address] [place] [address] Dr. Ellie Smith AST [Catalytic activity/Vol] 18 U/L Normal 15-37 [facility] Comment on above: Performed By: #### R EVRT3 #### [facility] [address] [place] [address] Dr. Ellie Smith Bilirubin [Mass/Vol] 0.4 mg/dL Normal 0.2-1.0 [facility] Comment on above: Performed By: #### R EVRT3 #### [facility] [address] [place] [address] Dr. Ellie Smith Calcium [Mass/Vol] 9.2 mg/dL Normal 8.5-10.1 [facility] Comment on above: Performed By: #### R EVRT3 #### [facility] [address] [place] [address] Dr. Ellie Smith Chloride [Moles/Vol] 106 mmol/L Normal 98-107 [facility] Comment on above: Performed By: #### R EVRT3 #### [facility] [address] [place] [address] Dr. Ellie Smith CO2 [Moles/Vol] 26.1 mmol/L Normal 21.0-32.0 [facility] Comment on above: Performed By: #### R [id number] #### [facility] [address] [place] [address] Dr. Ellie Smith Creatinine [Mass/Vol] 0.68 mg/dL Normal 0.55-1.02 [facility] Comment on above: Performed By: #### R EVRT3 #### [facility] [address] [place] [address] Dr. Ellie Smith EGFR-AF [place]ER >60 Normal >=60 [facility] Comment on above: Performed By: #### R [id number] #### [facility] [address] [place] [address] Dr. Ellie Smith EGFR-NON AF [place] >60 Normal >=60 [facility] Comment on above: Performed By: #### R [id number] #### [facility] [address] [address] [address] Ellie Smith Globulin (S) [Mass/Vol] 3.2 g/dL Normal [facility] Comment on above: Performed By: #### R [id number] #### [facility] [address] [address] [address] Ellie Smith Glucose [Mass/Vol] 99 mg/dL Normal 74-106 [facility] Comment on above: Performed By: #### R [id number] #### [facility] [address] [address] [address] Ellie Smith Potassium [Moles/Vol] 4.2 mmol/L Normal 3.5-5.1 [facility] Comment on above: Performed By: #### R [id number] #### [facility] [address] [address] [address] Ellie Smith Protein [Mass/Vol] 7.1 g/dL Normal 6.4-8.2 [facility] Comment on above: Performed By: #### R [id number] #### [facility] [address] [address] [address] Ellie Smith Sodium [Moles/Vol] 142 mmol/L Normal 136-145 [facility] Comment on above: Performed By: #### R EVRT3 #### [facility] [address] [address] [address] Ellie Smith Urea nitrogen [Mass/Vol] 16.0 mg/dL Normal 7.0-18.0 [facility] Comment on above: Performed By: #### R [id number] #### [facility] [address] [address] [address] Ellie Smith Urea nitrogen/Creatinine [Mass ratio] 23.5 mg/mg Normal [facility] Comment on above: Performed By: #### R [id number] #### [facility] [address] [address] [address] Ellie Smith REVERSE T3on 04-15-2022 Reverse T3, Serum 15.4 ng/dL Normal 9.2-24.1 [facility] Comment on above: Result Comment: This test was developed and its performance characteristics determined by [facility]. It has not been cleared or approved by the Food and Drug Administration. Performed By: #### L ACT #### [facility] [address] [place] [address] Dr. Ellie Smith T3, TOTAL (TRIIODOTHYRONINE) on 04-13-2022 T3, TOTAL 144 ng/dL Normal 71-180 [facility] Comment on above: Performed By: #### A 1C #### [facility] [address] [place] [address] Dr. Ellie Smith FREE T3on 04-12-2022 FREE T3 2.93 pg/mlL Normal 2.18-3.98 [facility] Comment on above: Performed By: #### T SH, FT3 #### [facility] [address] [place] [address] Dr. Ellie Smith FREE T4on 04-12-2022 Free T4 [Mass/Vol] 0.89 ng/dL Normal 0.76-1.46 [facility] Comment on above: Performed By: #### R [id number] #### [facility] [address] [place] [address] Dr. Ellie Smith TSHon 04-12-2022 TSH 0.116 uIU/mL Critically low 0.358-3.74 0 [facility] Comment on above: Performed By: #### T SH, FT3 #### [facility] [address] [place] [address] Dr. Ellie Smith LIPID PROFILEon 03-29-2022 CHOL-HDL RATIO NORM SEE BELOW Normal [facility] Comment on above: Result Comment: 3.3 - 4.4 LOW RISK 4.4 - 7.1 AVERAGE RISK 7.1 - 11.0 MODERATE RISK >11.0 HIGH RISK Performed By: #### A 1C #### [facility] [address] [place] [address] Dr. Ellie Smith Cholesterol [Mass/Vol] 102 mg/dL Normal <=200 [facility] Comment on above: Performed By: #### A 1C #### [facility] [address] [address] [address] Ellie Smith Cholesterol in HDL [Mass/Vol] 56 mg/dL Normal 40-60 [facility] Comment on above: Performed By: #### A 1C #### [facility] [address] [address] [address] Ellie Smith Cholesterol in LDL [Mass/Vol] 36.8 mg/dL Normal [facility] Comment on above: Performed By: #### A 1C #### [facility] [address] [address] [address] Ellie Smith Cholesterol.total/Chol esterol in HDL [Mass ratio] 1.8 {ratio} Normal [facility] Comment on above: Performed By: #### A 1C #### [facility] [address] [place] [address] Dr. Ellie Smith HDL NORMAL > or = 60 mg/dl - LO W CARDIOVASCULAR RISK <40 mg/dl - HIGH CARDIOVASCULAR RISK Normal [facility] Comment on above: Performed By: #### A 1C #### [facility] [address] [address] [address] Ellie Smith LDL CALC NORMAL SEE BELOW Normal [facility] Comment on above: Result Comment: <100 mg/dl OPTIMAL 100 - 129 mg/dl NEAR OR ABOVE OPTIMAL 130 - 159 mg/dl BORDERLINE HIGH 160 - 189 mg/dl HIGH >190 mg/dl VERY HIGH Performed By: #### A 1C #### [facility] [address] [place] [address] Dr. Ellie Smith Triglyceride [Mass/Vol] 46 mg/dL Normal <=150 [facility] Comment on above: Performed By: #### A 1C #### [facility] [address] [address] [address] Ellie Smith VLDL CALC 9.2 mg/dL Normal [facility] Comment on above: Performed By: #### A 1C #### [facility] [address] [address] [address] Ellie Smith SGOTon 03-29-2022 AST [Catalytic activity/Vol] 17 U/L Normal 15-37 [facility] Comment on above: Performed By: #### A 1C #### [facility] [address] [address] [address] Ellie Smith [facility] 03-29-2022 ALT [Catalytic activity/Vol] 30 U/L Normal 14-59 [facility] Comment on above: Performed By: #### A 1C #### [facility] [address] [address] [address] 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 Normal [employer] Tobacco Screening.on 022 Adult depression screening assessment No [facility] [employer] 600 DO Work Phone: Fall risk assessment a) [facility] the [facility] year [facility] [employer] 600 DO Work Phone: Tobacco use status CPHS b) No [facility] [employer] 600 DO Work Phone: PHQ-2 VITALSon 02-15-2022 Adult depression screening assessment Yes [facility] [employer] 250 DO Work Phone: Adult depression screening assessment No [facility] [employer] 250 DO Work Phone: Fall risk assessment a) No falls within the last year [facility] [employer] 250 DO Work Phone: Tobacco use status CPHS b) No [facility] [employer] 250 DO Work Phone: PHQ-2 VITALS 0-Not at all [facility] [employer] 250 DO Work Phone: PHQ-2 VITALS 3-Nearly every day [facility] [employer] 250 DO Work Phone: PHQ-2 VITALS 1-Several days [facility] [employer] 250 DO Work Phone: PHQ-2 VITALS Very Difficult -[facility]-[employer] jayne 250 DO Work Phone: Activated partial thrombopla stin time (aPTT) in platelet poor plasma by coagulation aOrdered By: Diony Hooks on 02-03-2022 aPTT Coag (PPP) [Time] 31.4 s 25.1-36.5 [facility] Basophils Auto (Bld) [#/Vol] Ordered By: Diony Hooks on 02-03-2022 Basophils (Bld) [#/Vol] 0.1 10*3/uL 0.0-0.2 [facility] Basophils/100 WBC Auto (Bld) Ordered By: Diony Hooks on 02-03-2022 Basophils/100 WBC (Bld) 0.6 % . [facility] Blood hemoglobin measurement (mass/volume)Ordered By: Diony Hooks on 02-03-2022 Hemoglobin (Bld) [Mass/Vol] 14.3 g/dL 11.8-15.4 [facility] Blood leukocytes automated c ount (number/volume)Ordered By: Diony Hooks on 02-03-2022 WBC (Bld) [#/Vol] 12.0 10*3/uL 4.5-11.0 [facility] Eosinophils Auto (Bld) [#/Vo l]Ordered By: Diony Hooks on 02-03-2022 Eosinophils (Bld) [#/Vol] 0.4 10*3/uL 0.0-0.45 [facility] Eosinophils/100 WBC Auto (Bl d)Ordered By: Diony Hooks on 02-03-2022 Eosinophils/100 WBC (Bld) 3.4 % . [facility] Erythrocyte distribution wid th Auto (RBC) [Ratio]Ordered By: Diony Hooks on 02-03-2022 Erythrocyte distribution width (RBC) [Ratio] 14.4 % 11.9-15.3 [facility] Hematocrit Auto (Bld) [Volum e fraction]Ordered By: Diony Hooks on 02-03-2022 Hematocrit (Bld) [Volume fraction] 42.4 % 34.0-46.4 [facility] - CoagulationOrde red By: Diony Hooks on 02-03-2022 PT Coag (PPP) [Time] 10.9 s 9.0-12.9 [facility] - Hematology and Cell countsOrdered By: Diony Hooks on 02-03-2022 Nucleated RBC/100 WBC (Bld) [Ratio] 0.0 % 0-0.5 [facility] Lymphocytes Auto (Bld) [#/Vo l]Ordered By: Diony Hooks on 02-03-2022 Lymphocytes (Bld) [#/Vol] 2.1 10*3/uL 1.00-4.8 [facility] Lymphocytes/100 WBC Auto (Bl d)Ordered By: Diony Hooks on 02-03-2022 Lymphocytes/100 WBC (Bld) 17.5 % . [facility] MCH Auto (RBC) [Entitic mass ]Ordered By: Diony Hooks on 02-03-2022 MCH (RBC) [Entitic mass] 31.5 pg 24.7-34.3 [facility] MCHC Auto (RBC) [Mass/Vol]Or dered By: Diony Hooks on 02-03-2022 MCHC (RBC) [Mass/Vol] 33.8 g/dL 32.0-35.0 [facility] MCV Auto (RBC) [Entitic vol] Ordered By: Diony Hooks on 02-03-2022 MCV (RBC) [Entitic vol] 93.2 fL 80-100 [facility] Monocytes Auto (Bld) [#/Vol] Ordered By: Diony Hooks on 02-03-2022 Monocytes (Bld) [#/Vol] 0.5 10*3/uL 0.0-0.8 [facility] Monocytes/100 WBC Auto (Bld) Ordered By: Diony Hooks on 02-03-2022 Monocytes/100 WBC (Bld) 4.4 % . [facility] Neutrophils Auto (Bld) [#/Vo l]Ordered By: Diony Hooks on 02-03-2022 Neutrophils (Bld) [#/Vol] 8.9 10*3/uL 1.8-7.7 [facility] Neutrophils/100 WBC Auto (Bl d)Ordered By: Diony Hoosk on 02-03-2022 Neutrophils/100 WBC (Bld) 74.1 % . [facility] Platelet mean volume Auto (B ld) [Entitic vol]Ordered By: Diony Hooks on 02-03-2022 Platelet mean volume (Bld) [Entitic vol] 7.5 fL 6.3-10.7 [facility] Platelet poor plasma interna tional normalized ratio (INR) by coagulation assay (relatOrdered By: Diony Hooks on 02-03-2022 INR Coag (PPP) [Relative time] 1.0 {INR} [facility] Comment on above: INR Therapeutic Rang [...] 02-03-2022 Platelets (Bld) [#/Vol] 337 10*3/uL 150-450 [facility] RBC Auto (Bld) [#/Vol]Ordere d By: Diony Hooks on 02-03-2022 RBC (Bld) [#/Vol] 4.56 10*6/uL 3.60-5.00 [facility] COVID-19 SOFIAOrdered By: St anup Hooks on 02-01-2022 SARS-CoV+SARS-CoV-2 (COVID-19) Ag IA.rapid Ql (Resp) Negative Negative [facility] Comment on above: This is a duplicate K[facility]y SARS Antigen (JERRY) result to be used for statistical tracking purpose only. Creatinine and Glomerular fi ltration rate.predicted panel (S/P/Bld)Ordered By: Diony Hooks on 02-01-2022 Creatinine [Mass/Vol] 0.85 mg/dL 0.44-1.03 [facility] Estimated glomerular filtrat ion rate (GFR) non- AmericanOrdered By: Diony Hooks on 02-01-2022 GFR/1.73 sq M.predicted among non-blacks MDRD (S/P/Bld) [Vol rate/Area] > 60 mL/Min [facility] No Panel InformationOrdered By: Diony Hooks on 02-01-2022 Estimated GFR () > 60 mL/Min [facility] Comment on above: GFR estimated refere nce range: According to KDOQI guidelines, <60 ml/min/1.73m2 is sufficient to diagnose a patient with chronic kidney disease. Pharmacy Creatinine Clearance (Chem N/A [facility] SARS Antigen (LFIA) [facility] Serum or plasma calcium norma urement (mass/volume)Ordered By: Diony Hooks on 02-01-2022 Calcium [Mass/Vol] 9.7 mg/dL 8.2-10.2 [facility] Serum or plasma chloride tam surement (moles/volume)Ordered By: Diony Hooks on 02-01-2022 Chloride [Moles/Vol] 97 mmol/L 95-114 [facility] Serum or plasma glucose norma urement (mass/volume)Ordered By: Diony Hooks on 02-01-2022 Glucose [Mass/Vol] 86 mg/dL 70-100 [facility] Comment on above: ADA recommended refe rence range Random Glucose Reference Range is dependent on time and content of last meal. Glucose of more than 200 mg/dL in a nonstressed, ambulatory subject supports the diagnosis of Diabetes Mellitus. Serum or plasma potassium me asurement (moles/volume)Ordered By: Diony Hooks on 02-01-2022 Potassium [Moles/Vol] 4.7 mmol/L 3.5-5.1 [facility] Serum or plasma sodium measu rement (moles/volume)Ordered By: Diony Hooks on 02-01-2022 Sodium [Moles/Vol] 132 mmol/L 136-146 [facility] Serum or plasma total carbon dioxide measurement (moles/volume)Ordered By: Diony Hooks on 02-01-2022 CO2 [Moles/Vol] 26.0 mmol/L 22.0-30.0 [facility] Serum or plasma urea nitroge n measurement (mass/volume)Ordered By: Diony Hooks on 02-01-2022 Urea nitrogen [Mass/Vol] 10 mg/dL 03-04 [facility] BNPon 01-28-2022 Natriuretic peptide B (Bld) [Mass/Vol] 945.0 pg/mL Normal <=1,800.0 [facility] Comment on above: Performed By: #### R [id number] #### [facility] [address] [place] [address] Dr. Ellie Smith CARDIAC RAQUEL ADMITon 022 CK [Catalytic activity/Vol] 122 U/L Normal 26-192 [facility] Comment on above: Performed By: #### R [id number] #### [facility] [address] [address] [address] Ellie Smith CK.MB [Mass/Vol] 0.65 ng/mL Normal <=3.60 [facility] Comment on above: Performed By: #### R EVRT3 #### [facility] [address] [place] [address] Dr. Ellie Smith HSTROP 63.5 pg/mL Critically high 4.0-51.3 [facility] Comment on above: Result Comment: CUT- OFF POINTS HAVE BEEN ESTABLISHED BASED ON THE FOURTH UNIVERSAL DEFINITIONS OF MYOCARDIAL INFARCTION. THE UPPER REFERENCE LIMIT (URL) OF TROPONIN, DEFINED THE 99TH PERCENTILE OF cTnI DISTRIBUTION IN A REFERENCE POPULATION, HAS BEEN CONFIRMED THE DECISION THRESHOLD FOR SD DIAGNOSIS. Performed By: #### R EVRT3 #### [facility] [address] [place] [address] Dr. Ellie Smith MATEO 26 ng/mL Normal 9-82 [facility] Comment on above: Performed By: #### R [id number] #### [facility] [address] [place] [address] Dr. Ellie Smith CBC AUTO DIFFon 01-28-2022 BASO # 0.1 103/ul Normal 0.0-0.1 [facility] Comment on above: Performed By: #### L ACT #### [facility] [address] [place] [address] Dr. Ellie Smith Basophils/100 WBC (Bld) 0.6 % Normal 0.2-2.0 [facility] Comment on above: Performed By: #### L ACT #### [facility] [address] [place] [address] Dr. Ellie Smith EO # 0.4 103/ul Normal 0.0-0.7 [facility] Comment on above: Performed By: #### L ACT #### [facility] [address] [place] [address] Dr. Ellie Smith Eosinophils/100 WBC (Bld) 4.4 % Normal 0.9-7.0 [facility] Comment on above: Performed By: #### L ACT #### [facility] [address] [place] [address] Dr. Ellie Smith Erythrocyte distribution width (RBC) [Ratio] 13.7 % Normal 11.0-15.0 [facility] Comment on above: Performed By: #### L ACT #### [facility] [facility] [address] [place] [address] Dr. Ellie Smith Hematocrit (Bld) [Volume fraction] 35.8 % Critically low 36.0-48.0 [facility] Comment on above: Performed By: #### L ACT #### [facility] [address] [place] [address] Dr. Ellie Smith Hemoglobin (Bld) [Mass/Vol] 11.9 g/dL Critically low 12.0-16.0 [facility] Comment on above: Performed By: #### L ACT #### [facility] [address] [place] [address] Dr. Ellie Smith IG # 0.03 10e3/ul Normal 0.00-0.03 [facility] Comment on above: Performed By: #### L ACT #### [facility] [address] [place] [address] Dr. Ellie Smith IG % 0.4 % Normal 0.0-0.5 [facility] Comment on above: Performed By: #### L ACT #### [facility] [address] [place] [address] Dr. Ellie Smith LYMPH # 1.7 103/ul Normal 1.2-3.8 [facility] Comment on above: Performed By: #### L ACT #### [facility] [address] [place] [address] Dr. Ellie Smith Lymphocytes/100 WBC (Bld) 19.6 % Critically low 20.5-60.0 [facility] Comment on above: Performed By: #### L ACT #### [facility] [address] [place] [address] Dr. Ellie Smith MANUAL DIFF REQ NO Normal [facility] Comment on above: Performed By: #### L ACT #### [facility] [address] [place] [address] Dr. Ellie Smith MCH (RBC) [Entitic mass] 31.4 pg Normal 26.7-34.0 [facility] Comment on above: Performed By: #### L ACT #### [facility] [address] [place] [address] Dr. Ellie Smith MCHC (RBC) [Mass/Vol] 33.2 g/dL Normal 29.9-35.2 [facility] Comment on above: Performed By: #### L ACT #### [facility] [address] [place] [address] Dr. Ellie Smith MCV (RBC) [Entitic vol] 94.5 fL Normal 81.0-99.0 [facility] Comment on above: Performed By: #### L ACT #### [facility] [address] [place] [address] Dr. Ellie Smith MONO # 0.5 103/ul Normal 0.3-0.8 [facility] Comment on above: Performed By: #### L ACT #### [facility] [address] [place] [address] Dr. Ellie Smith Monocytes/100 WBC (Bld) 5.4 % Normal 1.7-12.0 [facility] Comment on above: Performed By: #### L ACT #### [facility] [address] [place] [address] Dr. Ellie Smith NEUT # 6.0 103/ul Normal 1.4-6.5 [facility] Comment on above: Performed By: #### L ACT #### [facility] [address] [place] [address] Dr. Ellie Smith Neutrophils/100 WBC (Bld) 69.6 % Normal 43.0-75.0 [facility] Comment on above: Performed By: #### L ACT #### [facility] [address] [place] [address] Dr. Ellie Smith Platelet mean volume (Bld) [Entitic vol] 9.5 fL Normal 9.5-13.5 [facility] Comment on above: Performed By: #### L ACT #### [facility] [address] [place] [address] Dr. Ellie Smith PLT 252 103/ul Normal 150-450 [facility] Comment on above: Performed By: #### L ACT #### [facility] [address] [place] [address] Dr. Ellie Smith RBC 3.79 106/ul Critically low 4.20-5.40 [facility] Comment on above: Performed By: #### L ACT #### [facility] [address] [place] [address] Dr. Ellie Smith WBC 8.6 103/ul Normal 4.0-11.0 [facility] Comment on above: Performed By: #### L ACT #### [facility] [address] [place] [address] Dr. Ellie Smith POINT OF CARE GLUCOSEon 01-10 Glucose [Mass/Vol] 93 mg/dL Normal 74-106 [facility] Comment on above: Performed By: #### A 1C #### [facility] [address] [place] [address] Dr. Ellie Smith PROF 14(COMP METB)on 022 Albumin [Mass/Vol] 3.2 g/dL Critically low 3.4-5.0 [facility] Comment on above: Performed By: #### R [id number] #### [facility] [address] [place] [address] Dr. Ellie Smith Albumin/Globulin [Mass ratio] 1.1 {ratio} Normal [facility] Comment on above: Performed By: #### R [id number] #### [facility] [address] [address] [address] Ellie Smith ALP [Catalytic activity/Vol] 52 U/L Normal 46-116 [facility] Comment on above: Performed By: #### R [id number] #### [facility] [address] [place] [address] Dr. Ellie Smith ALT [Catalytic activity/Vol] 52 U/L Normal 14-59 [facility] Comment on above: Performed By: #### R EVRT3 #### [facility] [address] [address] [address] Ellie Smith Anion gap [Moles/Vol] 9.7 mmol/L Normal [facility] Comment on above: Performed By: #### R [id number] #### [facility] [address] [place] [address] Dr. Ellie Smith AST [Catalytic activity/Vol] 22 U/L Normal 15-37 [facility] Comment on above: Performed By: #### R [id number] #### [facility] [address] [place] [address] Dr. Ellie Smith Bilirubin [Mass/Vol] 0.3 mg/dL Normal 0.2-1.0 [facility] Comment on above: Performed By: #### R [id number] #### [facility] [address] [place] [address] Dr. Ellie Smith Calcium [Mass/Vol] 8.4 mg/dL Critically low 8.5-10.1 [facility] Comment on above: Performed By: #### R [id number] #### [facility] [address] [place] [address] Dr. Ellie Smith Chloride [Moles/Vol] 104 mmol/L Normal 98-107 [facility] Comment on above: Performed By: #### R EVRT3 #### [facility] [address] [place] [address] Dr. Ellie Smith CO2 [Moles/Vol] 25.5 mmol/L Normal 21.0-32.0 [facility] Comment on above: Performed By: #### R EVRT3 #### [facility] [address] [place] [address] Dr. Ellie Smith Creatinine [Mass/Vol] 0.71 mg/dL Normal 0.55-1.02 [facility] Comment on above: Performed By: #### R EVRT3 #### [facility] [address] [place] [address] Dr. Ellie Smith EGFR-AF [place] >60 Normal >=60 [facility] Comment on above: Performed By: #### R EVRT3 #### [facility] [address] [address] [address] Ellie Smith EGFR-NON AF [place] >60 Normal >=60 [facility] Comment on above: Performed By: #### R EVRT3 #### [facility] [address] [place] [address] Dr. Ellie Smith Globulin (S) [Mass/Vol] 2.9 g/dL Normal [facility] Comment on above: Performed By: #### R EVRT3 #### [facility] [address] [place] [address] Dr. Ellie Smith Glucose [Mass/Vol] 102 mg/dL Normal 74-106 [facility] Comment on above: Performed By: #### R EVRT3 #### [facility] [address] [place] [address] Dr. Ellie Smith Potassium [Moles/Vol] 4.2 mmol/L Normal 3.5-5.1 [facility] Comment on above: Performed By: #### R EVRT3 #### [facility] [address] [place] [address] Dr. Ellie Smith Protein [Mass/Vol] 6.1 g/dL Critically low 6.4-8.2 [facility] Comment on above: Performed By: #### R [id number] #### [facility] [address] [place] [address] Dr. Ellie Smith Sodium [Moles/Vol] 135 mmol/L Critically low 136-145 [facility] Comment on above: Performed By: #### R [id number] #### [facility] [address] [place] [address] Dr. Ellie Smith Urea nitrogen [Mass/Vol] 11.0 mg/dL Normal 7.0-18.0 [facility] Comment on above: Performed By: #### R [id number] #### [facility] [address] [place] [address] Dr. Ellie Smith Urea nitrogen/Creatinine [Mass ratio] 15.5 mg/mg Normal [facility] Comment on above: Performed By: #### R EVRT3 #### [facility] [address] [place] [address] Dr. Ellie Smith CARDIAC RAQUEL 3-6on 2 CK [Catalytic activity/Vol] 192 U/L Normal 26-192 [facility] Comment on above: Performed By: #### L ACT #### [facility] [address] [place] [address] Dr. Ellie Smith CK.MB [Mass/Vol] 0.70 ng/mL Normal <=3.60 [facility] Comment on above: Performed By: #### L ACT #### [facility] [address] [place] [address] Dr. Ellie Smith HSTROP 88.8 pg/mL Critically high 4.0-51.3 [facility] Comment on above: Result Comment: CUT- OFF POINTS HAVE BEEN ESTABLISHED BASED ON THE FOURTH UNIVERSAL DEFINITIONS OF MYOCARDIAL INFARCTION. THE UPPER REFERENCE LIMIT (URL) OF TROPONIN, DEFINED THE 99TH PERCENTILE OF cTnI DISTRIBUTION IN A REFERENCE POPULATION, HAS BEEN CONFIRMED THE DECISION THRESHOLD FOR SD DIAGNOSIS. Performed By: #### L ACT #### [facility] [address] [place] [address] Dr. Ellie Smith CK [Catalytic activity/Vol] 213 U/L Critically high 26-192 [facility] Comment on above: Performed By: #### P OCGLUC #### [facility] [address] [place] [address] Dr. Ellie Smith CK.MB [Mass/Vol] 0.90 ng/mL Normal <=3.60 [facility] Comment on above: Performed By: #### P OCGLUC #### [facility] [address] [place] [address] Dr. Ellie Smith HSTROP 108.1 pg/mL Critically high 4.0-51.3 [facility] Comment on above: Result Comment: CUT- OFF POINTS HAVE BEEN ESTABLISHED BASED ON THE FOURTH UNIVERSAL DEFINITIONS OF MYOCARDIAL INFARCTION. THE UPPER REFERENCE LIMIT (URL) OF TROPONIN, DEFINED THE 99TH PERCENTILE OF cTnI DISTRIBUTION IN A REFERENCE POPULATION, HAS BEEN CONFIRMED THE DECISION THRESHOLD FOR SD DIAGNOSIS. repeated Performed By: #### P OCGLUC #### [facility] [address] [place] [address] Dr. Ellie Smith CBC AUTO DIFFon 01-27-2022 BASO # 0.1 103/ul Normal 0.0-0.1 [facility] Comment on above: Performed By: #### P OCGLUC #### [facility] [address] [place] [address] Dr. Ellie Smith Basophils/100 WBC (Bld) 0.5 % Normal 0.2-2.0 [facility] Comment on above: Performed By: #### P OCGLUC #### [facility] [address] [place] [address] Dr. Ellie Smith EO # 0.4 103/ul Normal 0.0-0.7 [facility] Comment on above: Performed By: #### P OCGLUC #### [facility] [address] [place] [address] Dr. Ellie Smith Eosinophils/100 WBC (Bld) 3.2 % Normal 0.9-7.0 [facility] Comment on above: Performed By: #### P OCGLUC #### [facility] [address] [place] [address] Dr. Ellie Smith Erythrocyte distribution width (RBC) [Ratio] 13.7 % Normal 11.0-15.0 [facility] Comment on above: Performed By: #### P OCGLUC #### [facility] [address] [place] [address] Dr. Ellie Smith Hematocrit (Bld) [Volume fraction] 40.5 % Normal 36.0-48.0 [facility] Comment on above: Performed By: #### P OCGLUC #### [facility] [address] [place] [address] Dr. Ellie Smith Hemoglobin (Bld) [Mass/Vol] 13.4 g/dL Normal 12.0-16.0 [facility] Comment on above: Performed By: #### P OCGLUC #### [facility] [address] [place] [address] Dr. Ellie Smith IG # 0.04 10e3/ul Critically high 0.00-0.03 [facility] Comment on above: Performed By: #### P OCGLUC #### [facility] [address] [place] [address] Dr. Ellie Smith IG % 0.3 % Normal 0.0-0.5 [facility] Comment on above: Performed By: #### P OCGLUC #### [facility] [address] [place] [address] Dr. Ellie Smith LYMPH # 2.4 103/ul Normal 1.2-3.8 [facility] Comment on above: Performed By: #### P OCGLUC #### [facility] [address] [place] [address] Dr. Ellie Smith Lymphocytes/100 WBC (Bld) 18.6 % Critically low 20.5-60.0 [facility] Comment on above: Performed By: #### P OCGLUC #### [facility] [address] [place] [address] Dr. Ellie Smith MANUAL DIFF REQ NO Normal [facility] Comment on above: Performed By: #### P OCGLUC #### [facility] [address] [place] [address] Dr. Ellie Smith MCH (RBC) [Entitic mass] 31.0 pg Normal 26.7-34.0 [facility] Comment on above: Performed By: #### P OCGLUC #### [facility] [address] [place] [address] Dr. Ellie Smith MCHC (RBC) [Mass/Vol] 33.1 g/dL Normal 29.9-35.2 [facility] Comment on above: Performed By: #### P OCGLUC #### [facility] [address] [place] [address] Dr. Ellie Smith MCV (RBC) [Entitic vol] 93.8 fL Normal 81.0-99.0 [facility] Comment on above: Performed By: #### P OCGLUC #### [facility] [address] [place] [address] Dr. Ellie Smith MONO # 0.7 103/ul Normal 0.3-0.8 [facility] Comment on above: Performed By: #### P OCGLUC #### [facility] [address] [place] [address] Dr. Ellie Smith Monocytes/100 WBC (Bld) 5.5 % Normal 1.7-12.0 [facility] Comment on above: Performed By: #### P OCGLUC #### [facility] [address] [place] [address] Dr. Ellie Smith NEUT # 9.1 103/ul Critically high 1.4-6.5 [facility] Comment on above: Performed By: #### P OCGLUC #### [facility] [address] [place] [address] Dr. Ellie Smith Neutrophils/100 WBC (Bld) 71.9 % Normal 43.0-75.0 [facility] Comment on above: Performed By: #### P OCGLUC #### [facility] [address] [place] [address] Dr. Ellie Smith Platelet mean volume (Bld) [Entitic vol] 9.6 fL Normal 9.5-13.5 [facility] Comment on above: Performed By: #### P OCGLUC #### [facility] [address] [place] [address] Dr. Ellie Smith PLT 307 103/ul Normal 150-450 [facility] Comment on above: Performed By: #### P OCGLUC #### [facility] [address] [place] [address] Dr. Ellie Smith RBC 4.32 106/ul Normal 4.20-5.40 [facility] Comment on above: Performed By: #### P OCGLUC #### [facility] [address] [place] [address] Dr. Ellie Smith WBC 12.6 103/ul Critically high 4.0-11.0 [facility] Comment on above: Performed By: #### P OCGLUC #### [facility] [address] [id number] Ellie Smith CT ABD/PELVIS WO CONon [...] by: JONA ORLANDO Date: 2022-01-27 02:44 Normal [facility] CTA CHEST WO W CONon 022 [...] JONA ORLANDO Date: 2022-01-27 03:46 Normal [facility] Covid-19 PCR (CVDTB)on 01-10 SARS-CoV-2 (COVID-19) RNA MEI+probe Ql (Unsp spec) Not detected Normal NOT DETECTED [facility] Comment on above: Result Comment: When [...] for this test is supported by the [place] [employer] and [employer] Service's declaration that [...] used). Performed By: #### R EVRT3 #### [facility] [address] [place] [address] Dr. Ellie Smith D-DIMERon 01-27-2022 D-DIMER 0.71 mg/L FEU Critically high <=0.59 [facility] Comment on above: Performed By: #### L ACT #### [facility] [address] [place] [address] Dr. Ellie Smith D-DIMER COMMENTS SEE BELOW Normal [facility] Comment on above: Result Comment: Incr [...] hospitalization. Performed By: #### L ACT #### [facility] [address] [place] [address] Dr. Ellie Smith ER URINE PROFILEon 2 Bilirubin Ql (U) Negative Normal NEGATIVE [facility] Comment on above: Performed By: #### P OCGLUC #### [facility] [address] [place] [address] Dr. Ellie Smith Clarity (U) CLEAR Normal CLEAR [facility] Comment on above: Performed By: #### P OCGLUC #### [facility] [address] [place] [address] Dr. Ellie Smith Color (U) LT. YELLOW Normal YELLOW [facility] Comment on above: Performed By: #### P OCGLUC #### [facility] [address] [place] [address] Dr. Ellie Smith ERUANATD A micrscopic examina tion will be performed if indicated. Normal [facility] Comment on above: Performed By: #### P OCGLUC #### [facility] [address] [place] [address] Dr. Ellie Smith Glucose Ql (U) Negative Normal NEGATIVE [facility] Comment on above: Performed By: #### P OCGLUC #### [facility] [address] [place] [address] Dr. Ellie Smith Hemoglobin Ql (U) Negative Normal NEGATIVE [facility] Comment on above: Performed By: #### P OCGLUC #### [facility] [address] [place] [address] Dr. Ellie Smith Ketones Ql (U) Negative Normal NEGATIVE [facility] Comment on above: Performed By: #### P OCGLUC #### [facility] [address] [place] [address] Dr. Ellie Smith LEUKOCYTES Negative Normal NEGATIVE [facility] Comment on above: Performed By: #### P OCGLUC #### [facility] [address] [place] [address] Dr. Ellie Smith Nitrite Ql (U) Negative Normal NEGATIVE [facility] Comment on above: Performed By: #### P OCGLUC #### [facility] [address] [place] [address] Dr. Ellie Smith pH (U) 6.0 [pH] Normal 5-9 [facility] Comment on above: Performed By: #### P OCGLUC #### [facility] [address] [place] [address] Dr. Ellie Smith SPEC GRAVITY 1.010 Normal 1.005-<=1. 025 [facility] Comment on above: Performed By: #### P OCGLUC #### [facility] [address] [place] [address] Dr. Ellie Smith UA PROTEIN Negative Normal NEGATIVE/ TRACE [facility] Comment on above: Performed By: #### P OCGLUC #### [facility] [address] [place] [address] Dr. Ellie Smith UR MICRO IND NOT INDICATED Normal [facility] Comment on above: Performed By: #### P OCGLUC #### [facility] [address] [place] [address] Dr. Ellie Smith Urobilinogen Qn (U) 0.2 {Tamia'U}/dL Normal 0.2 - 1. 0 [facility] Comment on above: Performed By: #### P OCGLUC #### [facility] [address] [address] [address] Ellie Smith LACTATE/LACTIC ACIDon 2021 Lactate [Moles/Vol] 1.8 mmol/L Normal 0.4-1.9 [facility] Comment on above: Performed By: #### L ACT #### [facility] [address] [place] [address] Dr. Ellie Smith POINT OF CARE GLUCOSEon 01-10 Glucose [Mass/Vol] 132 mg/dL Critically high 74-106 [facility] Comment on above: Performed By: #### L ACT #### [facility] [address] [place] [address] Dr. Ellie Smith Glucose [Mass/Vol] 99 mg/dL Normal 74-106 [facility] Comment on above: Performed By: #### L ACT #### [facility] [address] [place] [address] Dr. Ellie Smith Glucose [Mass/Vol] 117 mg/dL Critically high 74-106 [facility] Comment on above: Performed By: #### P OCGLUC #### [facility] [address] [place] [address] Dr. Ellie Smith Glucose [Mass/Vol] 105 mg/dL Normal 74-106 [facility] Comment on above: Performed By: #### L ACT #### [facility] [address] [place] [address] Dr. Ellie Smith PROF 14(COMP METB)on 022 Albumin [Mass/Vol] 3.6 g/dL Normal 3.4-5.0 [facility] Comment on above: Performed By: #### C MP #### [facility] [address] [place] [address] Dr. Ellie Smith Albumin/Globulin [Mass ratio] 1.1 {ratio} Normal [facility] Comment on above: Performed By: #### C MP #### [facility] [address] [place] [address] Dr. Ellie Smith ALP [Catalytic activity/Vol] 61 U/L Normal 46-116 [facility] Comment on above: Performed By: #### C MP #### [facility] [address] [place] [address] Dr. Ellie Smith ALT [Catalytic activity/Vol] 53 U/L Normal 14-59 [facility] Comment on above: Performed By: #### C MP #### [facility] [address] [place] [address] Dr. Ellie Smith Anion gap [Moles/Vol] 14.7 mmol/L Normal Th [facility] Comment on above: Performed By: #### C MP #### [facility] [address] [place] [address] Dr. Ellie Smith AST [Catalytic activity/Vol] 43 U/L Critically high 15-37 [facility] Comment on above: Performed By: #### C MP #### [facility] [address] [place] [address] Dr. Ellie Smith Bilirubin [Mass/Vol] 0.4 mg/dL Normal 0.2-1.0 [facility] Comment on above: Performed By: #### C MP #### [facility] [address] [place] [address] Dr. Ellie Smith Calcium [Mass/Vol] 8.6 mg/dL Normal 8.5-10.1 [facility] Comment on above: Performed By: #### C MP #### [facility] [address] [place] [address] Dr. Ellie Smith Chloride [Moles/Vol] 99 mmol/L Normal 98-107 [facility] Comment on above: Performed By: #### C MP #### [facility] [address] [place] [address] Dr. Ellie Smith CO2 [Moles/Vol] 22.4 mmol/L Normal 21.0-32.0 [facility] Comment on above: Performed By: #### C MP #### [facility] [address] [place] [address] Dr. Ellie Smith Creatinine [Mass/Vol] 0.90 mg/dL Normal 0.55-1.02 [facility] Comment on above: Performed By: #### C MP #### [facility] [address] [address] [address] Ellie Smith EGFR-AF [place] >60 Normal >=60 [facility] Comment on above: Performed By: #### C MP #### [facility] [address] [address] [address] Ellie Smith EGFR-NON AF [place] 60 mL/min/1.73m2 Normal >=60 [facility] Comment on above: Performed By: #### C MP #### [facility] [address] [address] [address] Ellie Smith Globulin (S) [Mass/Vol] 3.3 g/dL Normal [facility] Comment on above: Performed By: #### C MP #### [facility] [address] [place] [address] Dr. Ellie Smith Glucose [Mass/Vol] 108 mg/dL Critically high 74-106 [facility] Comment on above: Performed By: #### C MP #### [facility] [address] [address] [address] Ellie Smith Potassium [Moles/Vol] 4.1 mmol/L Normal 3.5-5.1 [facility] Comment on above: Performed By: #### C MP #### [facility] [address] [address] [address] Ellie Smith Protein [Mass/Vol] 6.9 g/dL Normal 6.4-8.2 [facility] Comment on above: Performed By: #### C MP #### [facility] [address] [address] [address] Ellie Smith Sodium [Moles/Vol] 132 mmol/L Critically low 136-145 [facility] Comment on above: Performed By: #### C MP #### [facility] [address] [address] [address] Ellie Smith Urea nitrogen [Mass/Vol] 15.0 mg/dL Normal 7.0-18.0 [facility] Comment on above: Performed By: #### C MP #### [facility] [address] [place] [address] Dr. Ellie Smith Urea nitrogen/Creatinine [Mass ratio] 16.7 mg/mg Normal [facility] Comment on above: Performed By: #### C MP #### [facility] [address] [place] [address] Dr. Ellie Smith PROTIMEon 01-27-2022 INR Coag (PPP) [Relative time] 1.00 {INR} Normal [facility] Comment on above: Performed By: #### P OCGLUC #### [facility] [address] [place] [address] Dr. Ellie Smith INR GUIDELINES SEE BELOW Normal [facility] Comment on above: Result Comment: HIMANSHU RED INR: 2.0 - 3.0 CONDITIONS NOT LISTED BELOW 2.5 - 3.5 FOR PROSTHETIC HEART VALVE REPLACEMENT 2.5 - 3.5 RECURRENT THROMBOSIS Performed By: #### P OCGLUC #### [facility] [address] [place] [address] Dr. Ellie Smith PT Coag (PPP) [Time] 10.8 s Normal 9.0-11.6 [facility] Comment on above: Performed By: #### P OCGLUC #### [facility] [address] [place] [address] Dr. Ellie Smith PTTon 01-27-2022 aPTT Coag (Bld) [Time] 28.6 s Normal 22.3-36.2 [facility] Comment on above: Performed By: #### L ACT #### [facility] [address] [place] [address] Dr. Ellie Smith TROPONIN, HIGH SENSITIVITYon 01-27-2022 HSTROP 116.4 pg/mL Critically high 4.0-51.3 [facility] Comment on above: Result Comment: CUT- OFF POINTS HAVE BEEN ESTABLISHED BASED ON THE FOURTH UNIVERSAL DEFINITIONS OF MYOCARDIAL INFARCTION. THE UPPER REFERENCE LIMIT (URL) OF TROPONIN, DEFINED THE 99TH PERCENTILE OF cTnI DISTRIBUTION IN A REFERENCE POPULATION, HAS BEEN CONFIRMED THE DECISION THRESHOLD FOR SD DIAGNOSIS. Performed By: #### A 1C #### [facility] [address] [place], [place] [address] Dr. Ellie Smith HSTROP 151.5 pg/mL Critically high 4.0-51.3 [facility] Comment on above: Result Comment: CUT- OFF POINTS HAVE BEEN ESTABLISHED BASED ON THE FOURTH UNIVERSAL DEFINITIONS OF MYOCARDIAL INFARCTION. THE UPPER REFERENCE LIMIT (URL) OF TROPONIN, DEFINED THE 99TH PERCENTILE OF cTnI DISTRIBUTION IN A REFERENCE POPULATION, HAS BEEN CONFIRMED THE DECISION THRESHOLD FOR SD DIAGNOSIS. Performed By: #### P OCGLUC #### [facility] [address] [id number] Ellie Smith XR CHEST 1 Von [...] JONA ORLANDO Date: 2022-01-27 01:08 Normal [facility] Albumin [Mass/volume] in Ser um or PlasmaOrdered By: Diony Hooks on 01-21-2022 Albumin [Mass/Vol] 3.4 g/dL 3.2-5.5 [facility] Basophils Auto (Bld) [#/Vol] Ordered By: Diony Hooks on 01-21-2022 Basophils (Bld) [#/Vol] 0.0 10*3/uL 0.0-0.2 [facility] Basophils/100 WBC Auto (Bld) Ordered By: Diony Hooks on 01-21-2022 Basophils/100 WBC (Bld) 0.4 % . [facility] Blood hemoglobin measurement (mass/volume)Ordered By: Diony Hooks on 01-21-2022 Hemoglobin (Bld) [Mass/Vol] 13.3 g/dL 11.8-15.4 [facility] Blood leukocytes automated c ount (number/volume)Ordered By: Diony Hooks on 01-21-2022 WBC (Bld) [#/Vol] 8.5 10*3/uL 4.5-11.0 [facility] Creatinine and Glomerular fi ltration rate.predicted panel (S/P/Bld)Ordered By: Diony Hooks on 01-21-2022 Creatinine [Mass/Vol] 0.72 mg/dL 0.44-1.03 [facility] Eosinophils Auto (Bld) [#/Vo l]Ordered By: Diony Hooks on 01-21-2022 Eosinophils (Bld) [#/Vol] 0.4 10*3/uL 0.0-0.45 [facility] Eosinophils/100 WBC Auto (Bl d)Ordered By: Diony Hooks on 01-21-2022 Eosinophils/100 WBC (Bld) 4.2 % . [facility] Erythrocyte distribution wid th Auto (RBC) [Ratio]Ordered By: Diony Hooks on 01-21-2022 Erythrocyte distribution width (RBC) [Ratio] 14.4 % 11.9-15.3 [facility] Estimated glomerular filtrat ion rate (GFR) non- AmericanOrdered By: Diony Hooks on 01-21-2022 GFR/1.73 sq M.predicted among non-blacks MDRD (S/P/Bld) [Vol rate/Area] > 60 mL/Min [facility] Globulin Calc (S) [Mass/Vol] Ordered By: Diony Hooks on 01-21-2022 Globulin (S) [Mass/Vol] 2.4 g/dL [facility] Glucose Glucometer (BldC) [M ass/Vol]Ordered By: Wiley Beal on 01-21-2022 Glucose [Mass/Vol] 93 mg/dL [facility] Comment on above: Random Glucose Refer ence Range is dependent on time and content of last meal. Glucose of more than 200 mg/dL in a nonstressed, ambulatory subject supports the diagnosis of Diabetes Mellitus. Hematocrit Auto (Bld) [Volum e fraction]Ordered By: Diony Hooks on 01-21-2022 Hematocrit (Bld) [Volume fraction] 40.5 % 34.0-46.4 [facility] - Hematology and Cell countsOrdered By: Diony Hooks on 01-21-2022 Nucleated RBC/100 WBC (Bld) [Ratio] 0.0 % 0-0.5 [facility] Lymphocytes Auto (Bld) [#/Vo l]Ordered By: Diony Hooks on 01-21-2022 Lymphocytes (Bld) [#/Vol] 1.2 10*3/uL 1.00-4.8 [facility] Lymphocytes/100 WBC Auto (Bl d)Ordered By: Diony Hooks on 01-21-2022 Lymphocytes/100 WBC (Bld) 14.2 % . [facility] MCH Auto (RBC) [Entitic mass ]Ordered By: Diony Hooks on 01-21-2022 MCH (RBC) [Entitic mass] 30.7 pg 24.7-34.3 [facility] MCHC Auto (RBC) [Mass/Vol]Or dered By: Diony Hooks on 01-21-2022 MCHC (RBC) [Mass/Vol] 32.9 g/dL 32.0-35.0 [facility] MCV Auto (RBC) [Entitic vol] Ordered By: Diony Hooks on 01-21-2022 MCV (RBC) [Entitic vol] 93.1 fL 80-100 [facility] Monocytes Auto (Bld) [#/Vol] Ordered By: Diony Hooks on 01-21-2022 Monocytes (Bld) [#/Vol] 0.6 10*3/uL 0.0-0.8 [facility] Monocytes/100 WBC Auto (Bld) Ordered By: Diony Hooks on 01-21-2022 Monocytes/100 WBC (Bld) 6.7 % . [facility] Neutrophils Auto (Bld) [#/Vo l]Ordered By: Diony Hooks on 01-21-2022 Neutrophils (Bld) [#/Vol] 6.3 10*3/uL 1.8-7.7 [facility] Neutrophils/100 WBC Auto (Bl d)Ordered By: Diony Hooks on 01-21-2022 Neutrophils/100 WBC (Bld) 74.5 % . [facility] No Panel InformationOrdered By: Wiley Beal on 01-21-2022 Bedside Glucose Comment Glu2: cleaned meter [facility] No Panel InformationOrdered By: Diony Hooks on 01-21-2022 Estimated GFR () > 60 mL/Min [facility] Comment on above: GFR estimated refere nce range: According to KDOQI guidelines, <60 ml/min/1.73m2 is sufficient to diagnose a patient with chronic kidney disease. Pharmacy Creatinine Clearance (Chem 55.72 [facility] Platelet mean volume Auto (B ld) [Entitic vol]Ordered By: Diony Hooks on 01-21-2022 Platelet mean volume (Bld) [Entitic vol] 7.8 fL 6.3-10.7 [facility] Platelets Auto (Bld) [#/Vol] Ordered By: Diony Hooks on 01-21-2022 Platelets (Bld) [#/Vol] 235 10*3/uL 150-450 [facility] Protein [Mass/volume] in Ser um or PlasmaOrdered By: Diony Hooks on 01-21-2022 Protein [Mass/Vol] 5.8 g/dL 6.1-7.9 [facility] RBC Auto (Bld) [#/Vol]Ordere d By: Diony Hooks on 01-21-2022 RBC (Bld) [#/Vol] 4.35 10*6/uL 3.60-5.00 [facility] Serum or plasma alanine potter otransferase measurement without P-5'-P (enzymatic activiOrdered By: Diony Hooks on 01-21-2022 ALT No additional P-5'-P [Catalytic activity/Vol] 16 U/L 10-60 [facility] Serum or plasma albumin/glob ulin mass ratioOrdered By: Diony Hooks on 01-21-2022 Albumin/Globulin [Mass ratio] 1.4 {ratio} [facility] Serum or plasma alkaline nige sphatase measurement (enzymatic activity/volume)Ordered By: Diony Hooks on 01-21-2022 ALP [Catalytic activity/Vol] 43 U/L 32-92 [facility] Serum or plasma aspartate am inotransferase measurement (enzymatic activity/volume)Ordered By: Diony Hooks on 01-21-2022 AST [Catalytic activity/Vol] 25 U/L 10-42 [facility] Serum or plasma calcium norma urement (mass/volume)Ordered By: Diony Hooks on 08-12-2022 Calcium [Mass/Vol] 9.1 mg/dL 8.2-10.2 [facility] Serum or plasma chloride tam surement (moles/volume)Ordered By: Diony Hooks on 01-21-2022 Chloride [Moles/Vol] 104 mmol/L 95-114 [facility] Serum or plasma glucose norma urement (mass/volume)Ordered By: Diony Hooks on 01-21-2022 Glucose [Mass/Vol] 98 mg/dL 70-100 [facility] Comment on above: ADA recommended refe rence range Random Glucose Reference Range is dependent on time and content of last meal. Glucose of more than 200 mg/dL in a nonstressed, ambulatory subject supports the diagnosis of Diabetes Mellitus. Serum or plasma potassium me asurement (moles/volume)Ordered By: Diony Hooks on 01-21-2022 Potassium [Moles/Vol] 3.8 mmol/L 3.5-5.1 [facility] Serum or plasma sodium measu rement (moles/volume)Ordered By: Diony Hooks on 01-21-2022 Sodium [Moles/Vol] 135 mmol/L 136-146 [facility] Serum or plasma total biliru bin measurement (mass/volume)Ordered By: Diony Hooks on 01-21-2022 Bilirubin [Mass/Vol] 0.9 mg/dL 0.3-1.2 [facility] Serum or plasma total carbon dioxide measurement (moles/volume)Ordered By: Diony Hooks on 01-21-2022 CO2 [Moles/Vol] 23.4 mmol/L 22.0-30.0 [facility] Serum or plasma urea nitroge n measurement (mass/volume)Ordered By: Diony Hooks on 01-21-2022 Urea nitrogen [Mass/Vol] 9 mg/dL 9-23 [facility] Activated partial thrombopla stin time (aPTT) in platelet poor plasma by coagulation aOrdered By: Wiley Beal on 01-20-2022 aPTT Coag (PPP) [Time] 70.5 s 25.1-36.5 [facility] Cholesterol [Mass/volume] in Serum or PlasmaOrdered By: Justa Westfall on 01-19-2022 Cholesterol [Mass/Vol] 181 mg/dL 140-200 [facility] Comment on above: Chol less than 200 m g/dl low risk Chol 201-239 mg/dl borderline risk Chol 240 mg/dl and greater high risk Cholesterol in LDL Calc [Mas s/Vol]Ordered By: Justa Westfall on 01-19-2022 Cholesterol in LDL [Mass/Vol] 112 mg/dL 0-100 [facility] Comment on above: LDL ATP III CLASSIFI CATION LDL less than 100 mg/dL Optimal LDL 100-129 mg/dL Near or above optimal LDL 130-159 mg/dL Borderline high LDL 160-189 mg/dL High LDL greater than 189 mg/dL Very high Cholesterol in VLDL Calc [Ma ss/Vol]Ordered By: Justa Westfall on 01-19-2022 Cholesterol in VLDL [Mass/Vol] 22 mg/dL [facility] - Chemistry and C hemistry - challengeOrdered By: Justa Westfall on 01-19-2022 Magnesium [Mass/Vol] 1.4 mg/dL 1.6-2.6 [facility] - CoagulationOrde red By: Justa Westfall on 01-19-2022 PT Coag (PPP) [Time] 11.7 s 9.0-12.9 [facility] Platelet poor plasma interna tional normalized ratio (INR) by coagulation assay (relatOrdered By: Justa Westfall on 01-19-2022 INR Coag (PPP) [Relative time] 1.0 {INR} [facility] Comment on above: INR Therapeutic Rang [...] Cholesterol in HDL [Mass/Vol] 46 mg/dL 35-85 [facility] Comment on above: HDL CHOL ATP-III CLA SSIFICATION Cardiovascular Risk HDL > or equal to 60 mg/dL LOW HDL < 40 mg/dL HIGH Serum or plasma total choles terol/high density lipoprotein (HDL) cholesterol mass ratOrdered By: Justa Westfall on 01-19-2022 Cholesterol.total/Chol esterol in HDL [Mass ratio] 3.9 {ratio} <5.0 [facility] Triglyceride [Mass/volume] i n Serum or PlasmaOrdered By: Justa Westfall on 01-19-2022 Triglyceride [Mass/Vol] 113 mg/dL 35-149 [facility] Comment on above: TRIG ATP III [...] High sensitivity method [Mass/Vol] 3577 pg/mL 0-15 [facility] Comment on above: Results called at 0943 on 01/19/22 BNPon 01-18-2022 Natriuretic peptide B (Bld) [Mass/Vol] 1222.0 pg/mL Normal <=1,800.0 [facility] Comment on above: Performed By: #### A 1C #### [facility] [address] [address] [address] Ellie Smith CBC AUTO DIFFon 01-18-2022 BASO # 0.1 103/ul Normal 0.0-0.1 [facility] Comment on above: Performed By: #### R [id number] #### [facility] [address] [address] [address] Ellie Smith Basophils/100 WBC (Bld) 0.5 % Normal 0.2-2.0 [facility] Comment on above: Performed By: #### R [id number] #### [facility] [address] [address] [address] Ellie Smith EO # 0.2 103/ul Normal 0.0-0.7 [facility] Comment on above: Performed By: #### R [id number] #### [facility] [address] [place] [address] Dr. Ellie Smith Eosinophils/100 WBC (Bld) 2.4 % Normal 0.9-7.0 [facility] Comment on above: Performed By: #### R [id number] #### [facility] [address] [place] [address] Dr. Ellie Smith Erythrocyte distribution width (RBC) [Ratio] 14.1 % Normal 11.0-15.0 [facility] Comment on above: Performed By: #### R [id number] #### [facility] [address] [place] [address] Dr. Ellie Smith Hematocrit (Bld) [Volume fraction] 42.2 % Normal 36.0-48.0 [facility] Comment on above: Performed By: #### R [id number] #### [facility] [address] [place] [address] Dr. Ellie Smith Hemoglobin (Bld) [Mass/Vol] 13.9 g/dL Normal 12.0-16.0 [facility] Comment on above: Performed By: #### R [id number] #### [facility] [address] [place] [address] Dr. Ellie Smith IG # 0.02 10e3/ul Normal 0.00-0.03 [facility] Comment on above: Performed By: #### R [id number] #### [facility] [address] [place] [address] Dr. Ellie Smith IG % 0.2 % Normal 0.0-0.5 [facility] Comment on above: Performed By: #### R [id number] #### [facility] [address] [place] [address] Dr. Ellie Smith LYMPH # 2.1 103/ul Normal 1.2-3.8 [facility] Comment on above: Performed By: #### R [id number] #### [facility] [address] [place] [address] Dr. Ellie Smith Lymphocytes/100 WBC (Bld) 21.2 % Normal 20.5-60.0 [facility] Comment on above: Performed By: #### R [id number] #### [facility] [address] [place] [address] Dr. Ellie Smith MANUAL DIFF REQ NO Normal [facility] Comment on above: Performed By: #### R [id number] #### [facility] [address] [place] [address] Dr. Ellie Smith MCH (RBC) [Entitic mass] 31.2 pg Normal 26.7-34.0 [facility] Comment on above: Performed By: #### R [id number] #### [facility] [address] [place] [address] Dr. Ellie Smith MCHC (RBC) [Mass/Vol] 32.9 g/dL Normal 29.9-35.2 [facility] Comment on above: Performed By: #### R [id number] #### [facility] [address] [place] [address] Dr. Ellie Smith MCV (RBC) [Entitic vol] 94.6 fL Normal 81.0-99.0 [facility] Comment on above: Performed By: #### R [id number] #### [facility] [address] [place] [address] Dr. Ellie Smith MONO # 0.5 103/ul Normal 0.3-0.8 [facility] Comment on above: Performed By: #### R [id number] #### [facility] [address] [place] [address] Dr. Ellie Smith Monocytes/100 WBC (Bld) 4.7 % Normal 1.7-12.0 [facility] Comment on above: Performed By: #### R [id number] #### [facility] [address] [place] [address] Dr. Ellie Smith NEUT # 7.1 103/ul Critically high 1.4-6.5 [facility] Comment on above: Performed By: #### R [id number] #### [facility] [address] [place] [address] Dr. Ellie Smith Neutrophils/100 WBC (Bld) 71.0 % Normal 43.0-75.0 [facility] Comment on above: Performed By: #### R [id number] #### [facility] [address] [place] [address] Dr. Ellie Smith Platelet mean volume (Bld) [Entitic vol] 9.2 fL Critically low 9.5-13.5 [facility] Comment on above: Performed By: #### R [id number] #### [facility] [address] [place] [address] Dr. Ellie Smith PLT 257 103/ul Normal 150-450 [facility] Comment on above: Performed By: #### R [id number] #### [facility] [address] [place] [address] Dr. Ellie Smith RBC 4.46 106/ul Normal 4.20-5.40 [facility] Comment on above: Performed By: #### R [id number] #### [facility] [address] [place] [address] Dr. Ellie Smith WBC 10.0 103/ul Normal 4.0-11.0 [facility] Comment on above: Performed By: #### R [id number] #### [facility] [address] [place] [address] Dr. Ellie Smith Covid-19 PCR ([facility])on SARS-CoV-2 (COVID-19) RNA MEI+probe Ql (Unsp spec) Not detected Normal NOT DETECTED [facility] Comment on above: Result Comment: When [...] for this test is supported by the [place] of [employer] and Human Service's declaration that [...] used). Performed By: #### C VDTBH #### [facility] [address] [place] [address] Dr. Ellie Smith LIPASEon 01-18-2022 Lipase [Catalytic activity/Vol] 62.0 U/L Critically low 73.0-393.0 [facility] Comment on above: Performed By: #### A 1C #### [facility] [address] [place] [address] Dr. Ellie Smith MAGNESIUMon 01-18-2022 Magnesium [Mass/Vol] 1.4 mg/dL Critically low 1.8-2.4 [facility] Comment on above: Performed By: #### M G #### [facility] [address] [place] [address] Dr. Ellie Smith PROF 14(COMP METB)on 022 Albumin [Mass/Vol] 3.8 g/dL Normal 3.4-5.0 [facility] Comment on above: Performed By: #### A 1C #### [facility] [address] [place] [address] Dr. Ellie Smith Albumin/Globulin [Mass ratio] 1.2 {ratio} Normal [facility] Comment on above: Performed By: #### A 1C #### [facility] [address] [place] [address] Dr. Ellie Smith ALP [Catalytic activity/Vol] 59 U/L Normal 46-116 [facility] Comment on above: Performed By: #### A 1C #### [facility] [address] [place] [address] Dr. Ellie Smith ALT [Catalytic activity/Vol] 18 U/L Normal 14-59 [facility] Comment on above: Performed By: #### A 1C #### [facility] [address] [place] [address] Dr. Ellie Smith Anion gap [Moles/Vol] 11.1 mmol/L Normal [facility] Comment on above: Performed By: #### A 1C #### [facility] [address] [address] [address] Ellie Smith AST [Catalytic activity/Vol] 14 U/L Critically low 15-37 [facility] Comment on above: Performed By: #### A 1C #### [facility] [address] [address] [address] Ellie Smith Bilirubin [Mass/Vol] 0.3 mg/dL Normal 0.2-1.0 [facility] Comment on above: Performed By: #### A 1C #### [facility] [address] [address] [address] Ellie Smith Calcium [Mass/Vol] 9.1 mg/dL Normal 8.5-10.1 [facility] Comment on above: Performed By: #### A 1C #### [facility] [address] [address] [address] Ellie Smith Chloride [Moles/Vol] 104 mmol/L Normal 98-107 [facility] Comment on above: Performed By: #### A 1C #### [facility] [address] [address] [address] Ellie Smith CO2 [Moles/Vol] 26.9 mmol/L Normal 21.0-32.0 [facility] Comment on above: Performed By: #### A 1C #### [facility] [address] [address] [address] Ellie Smith Creatinine [Mass/Vol] 0.84 mg/dL Normal 0.55-1.02 [facility] Comment on above: Performed By: #### A 1C #### [facility] [address] [address] [address] Ellie Smith EGFR-AF [place] >60 Normal >=60 [facility] Comment on above: Performed By: #### A 1C #### [facility] [address] [address] [address] Ellie Smith EGFR-NON AF [place] >60 Normal >=60 [facility] Comment on above: Performed By: #### A 1C #### [facility] [address] [place] [address] Dr. Ellie Smith Globulin (S) [Mass/Vol] 3.1 g/dL Normal [facility] Comment on above: Performed By: #### A 1C #### [facility] [address] [place] [address] Dr. Ellie Smith Glucose [Mass/Vol] 100 mg/dL Normal 74-106 [facility] Comment on above: Performed By: #### A 1C #### [facility] [address] [place] [address] Dr. Ellie Smith Potassium [Moles/Vol] 4.0 mmol/L Normal 3.5-5.1 [facility] Comment on above: Performed By: #### A 1C #### [facility] [address] [place] [address] Dr. Ellie Smith Protein [Mass/Vol] 6.9 g/dL Normal 6.4-8.2 [facility] Comment on above: Performed By: #### A 1C #### [facility] [address] [place] [address] Dr. Ellie Smith Sodium [Moles/Vol] 138 mmol/L Normal 136-145 [facility] Comment on above: Performed By: #### A 1C #### [facility] [address] [place] [address] Dr. Ellie Smith Urea nitrogen [Mass/Vol] 14.0 mg/dL Normal 7.0-18.0 [facility] Comment on above: Performed By: #### A 1C #### [facility] [address] [place] [address] Dr. Ellie Smith Urea nitrogen/Creatinine [Mass ratio] 16.7 mg/mg Normal [facility] Comment on above: Performed By: #### A 1C #### [facility] [address] [place] [address] Dr. Ellie Smith PROTIMEon 01-18-2022 INR Coag (PPP) [Relative time] 0.95 {INR} Normal [facility] Comment on above: Performed By: #### R [id number] #### [facility] [address] [place] [address] Dr. Ellie Smith INR GUIDELINES SEE BELOW Normal [facility] Comment on above: Result Comment: HIMANSHU RED INR: 2.0 - 3.0 CONDITIONS NOT LISTED BELOW 2.5 - 3.5 FOR PROSTHETIC HEART VALVE REPLACEMENT 2.5 - 3.5 RECURRENT THROMBOSIS Performed By: #### R [id number] #### [facility] [address] [address] [address] Ellie Smith PT Coag (PPP) [Time] 10.3 s Normal 9.0-11.6 [facility] Comment on above: Performed By: #### R [id number] #### [facility] [address] [address] [address] Ellie Smith PTTon 01-18-2022 aPTT Coag (Bld) [Time] 27.1 s Normal 22.3-36.2 [facility] Comment on above: Performed By: #### R [id number] #### [facility] [address] [place] [address] Dr. Ellie Smith TROPONIN, HIGH SENSITIVITYon 01-18-2022 HSTROP 512.5 pg/mL Critically high 4.0-51.3 [facility] Comment on above: Result Comment: CUT- OFF POINTS HAVE BEEN ESTABLISHED BASED ON THE FOURTH UNIVERSAL DEFINITIONS OF MYOCARDIAL INFARCTION. THE UPPER REFERENCE LIMIT (URL) OF TROPONIN, DEFINED THE 99TH PERCENTILE OF cTnI DISTRIBUTION IN A REFERENCE POPULATION, HAS BEEN CONFIRMED THE DECISION THRESHOLD FOR SD DIAGNOSIS. repeated Performed By: #### A 1C #### [facility] [address] [place] [address] Dr. Ellie Smith XR CHEST 1 Von [...] by: NICOLE SANDERS Date: 2022-01-18 17:38 Normal [facility] Vital Signs Date Time Vital Sign Value Performing Clinician Facility 08-31-2023 13:23-0400 Diastolic blood pressure 70 mm[Hg] Karli Dougherty MD Work Phone: [facility] 08-31-2023 13:23-0400 Systolic blood pressure 136 mm[Hg] Karli Dougherty MD Work Phone: [facility] 08-31-2023 12:56-0400 Body height 157.5 cm Karli Dougherty MD Work Phone: [facility] 08-31-2023 12:56-0400 Body mass index (BMI) [Ratio] 27.62 kg/m2 Karli Dougherty MD Work Phone: [facility] 08-31-2023 12:56-0400 Body weight 68.49 kg Karli Dougherty MD Work Phone: [facility] 08-31-2023 12:56-0400 Heart rate 72 /min Karli Dougherty MD Work Phone: [facility] 03-14-2023 12:00-0400 Body temperature 98.1 [degF] MD Priyanka Puentes Work Phone: [facility] 03-14-2023 12:00-0400 Diastolic blood pressure 72 mm[Hg] MD Priyanka Puentes Work Phone: [facility] 03-14-2023 12:00-0400 Heart rate 70 /min MD Priyanka Puentes Work Phone: [facility] 03-14-2023 12:00-0400 Respiratory rate 12 /min MD Priyanka Puentes Work Phone: [facility] 03-14-2023 12:00-0400 SaO2% (BldA) [Mass fraction] 95 % MD Priyanka Puentes Work Phone: [facility] 03-14-2023 12:00-0400 Systolic blood pressure 155 mm[Hg] MD Priyanka Puentes Work Phone: [facility] 03-14-2023 06:00-0400 Body weight 66.3 kg MD Priyanka Puentes Work Phone: [facility] 03-12-2023 20:20-0400 Body height 157.48 cm MD Priyanka Puentes Work Phone: [facility] 03-12-2023 17:59-0400 Diastolic blood pressure 91 mm[Hg] MD Priyanka Puentes Work Phone: [facility] 03-12-2023 17:59-0400 Systolic blood pressure 199 mm[Hg] MD Priyanka Puentes Work Phone: [facility] 03-12-2023 17:33-0400 Heart rate 110 /min MD Priyanka Puentes Work Phone: [facility] 03-12-2023 17:33-0400 Respiratory rate 18 /min MD Priyanka Puentes Work Phone: [facility] 03-12-2023 17:33-0400 SaO2% (BldA) [Mass fraction] 96 % MD Priyanka Puentes Work Phone: [facility] 03-12-2023 13:44-0400 Body height 157.48 cm MD Priyanka Puentes Work Phone: [facility] 03-12-2023 13:44-0400 Body temperature 98.6 [degF] MD Priyanka Puentes Work Phone: [facility] 03-12-2023 13:44-0400 Body weight 63.5 kg MD Priyanka Puentes Work Phone: [facility] 03-07-2023 08:00-0400 Body temperature 97.9 [degF] MD Priyanka Puentes Work Phone: [facility] 03-07-2023 08:00-0400 Diastolic blood pressure 77 mm[Hg] MD Priyanka Puentes Work Phone: [facility] 03-07-2023 08:00-0400 Heart rate 78 /min MD Priyanka Puentes Work Phone: [facility] 03-07-2023 08:00-0400 Respiratory rate 16 /min MD Priyanka Puentes Work Phone: [facility] 03-07-2023 08:00-0400 SaO2% (BldA) [Mass fraction] 98 % MD Priyanka Puentes Work Phone: [facility] 03-07-2023 08:00-0400 Systolic blood pressure 167 mm[Hg] MD Priyanka Puentes Work Phone: [facility] 03-07-2023 06:10-0400 Body weight 64.7 kg MD Priyanka Puentes Work Phone: [facility] 03-06-2023 13:53-0400 Body height 157.48 cm MD Priyanka Puentes Work Phone: [facility] 03-05-2023 21:31-0400 Diastolic blood pressure 65 mm[Hg] MD Priyanka Puentes Work Phone: [facility] 03-05-2023 21:31-0400 Heart rate 85 /min MD Priyanka Puentes Work Phone: [facility] 03-05-2023 21:31-0400 SaO2% (BldA) [Mass fraction] 96 % MD Priyanka Puentes Work Phone: [facility] 03-05-2023 21:31-0400 Systolic blood pressure 145 mm[Hg] MD Priyanka Puentes Work Phone: [facility] 03-05-2023 18:47-0400 Respiratory rate 18 /min MD Priyanka Puentes Work Phone: [facility] 03-05-2023 18:00-0400 Body height 157.48 cm MD Priyanka Puentes Work Phone: [facility] 03-05-2023 18:00-0400 Body temperature 97.1 [degF] MD Priyanka Puentes Work Phone: [facility] 03-05-2023 18:00-0400 Body weight 65.7 kg MD Priyanka Puentes Work Phone: [facility] 02-16-2023 13:38-0400 Body height 157.48 cm Priyanka Puentes Work Phone: [facility] 250 DO Work Phone: 02-16-2023 13:38-0400 Body mass index (BMI) [Ratio] 26.52 kg/m2 Priyanka Puentes Work Phone: [facility] 250 DO Work Phone: 02-16-2023 13:38-0400 Body surface area Derived from formula 1.67 m2 Priyanka Puentes Work Phone: [facility] 250 DO Work Phone: 02-16-2023 13:38-0400 Body weight 65.77 kg Priyanka Puentes Work Phone: [facility] 250 DO Work Phone: 02-16-2023 13:38-0400 Diastolic blood pressure 62 mm[Hg] Priyanka Puentes Work Phone: [facility] 250 DO Work Phone: 02-16-2023 13:38-0400 Heart rate 76 /min Priyanka Puentes Work Phone: [facility] 250 DO Work Phone: 02-16-2023 13:38-0400 Systolic blood pressure 128 mm[Hg] Priyanka Puentes Work Phone: [facility] 250 DO Work Phone: 08-24-2022 14:35-0400 Body height 157.48 cm Edzeeshan Schrader Dianayer Work Phone: [facility] 250 DO Work Phone: 08-24-2022 14:35-0400 Body mass index (BMI) [Ratio] 27.98 kg/m2 Edzeeshan Schrader Hemeyer Work Phone: [facility] 250 DO Work Phone: 08-24-2022 14:35-0400 Body surface area Derived from formula 1.71 m2 Edzeeshan Malcolmyer Work Phone: [facility] 250 DO Work Phone: 08-24-2022 14:35-0400 Body weight 69.4 kg Edzeeshan Malcolmyer Work Phone: [facility] 250 DO Work Phone: 08-24-2022 14:35-0400 Diastolic blood pressure 54 mm[Hg] Edward Macrina Hemeyer Work Phone: [facility] 250 DO Work Phone: 08-24-2022 14:35-0400 Heart rate 82 /min Edzeeshan Malcolmyer Work Phone: [facility] 250 DO Work Phone: 08-24-2022 14:35-0400 Systolic blood pressure 132 mm[Hg] Edward Macrina Hemeyer Work Phone: [facility] 250 DO Work Phone: 03-17-2022 15:30-0400 Body height 157.48 cm Edzeeshan Malcolmyer Work Phone: [facility] 600 DO Work Phone: 03-17-2022 15:30-0400 Body mass index (BMI) [Ratio] 30.18 kg/m2 Edzeeshan Malcolmyer Work Phone: [facility] 600 DO Work Phone: 03-17-2022 15:30-0400 Body surface area Derived from formula 1.76 m2 Priyanka Puentes Work Phone: [facility] 600 DO Work Phone: 03-17-2022 15:30-0400 Body weight 74.84 kg Priyanka Malcolmyer Work Phone: [facility] 600 DO Work Phone: 03-17-2022 15:30-0400 Diastolic blood pressure 58 mm[Hg] Priyanka Puentes Work Phone: [facility] 600 DO Work Phone: 03-17-2022 15:30-0400 Heart rate 80 /min Priyanka Puentes Work Phone: [facility] 600 DO Work Phone: 03-17-2022 15:30-0400 Systolic blood pressure 130 mm[Hg] Priyanka Puentes Work Phone: [facility] 600 DO Work Phone: 02-15-2022 14:39-0400 Body height 157.48 cm Prachizeeshan Puentes Work Phone: [facility] 250 DO Work Phone: 02-15-2022 14:39-0400 Body mass index (BMI) [Ratio] 30.18 kg/m2 Priyanka Malcolmyer Work Phone: [facility] 250 DO Work Phone: 02-15-2022 14:39-0400 Body surface area Derived from formula 1.76 m2 Priyanka Malcolmbud Work Phone: [facility] 250 DO Work Phone: 02-15-2022 14:39-0400 Body weight 74.84 kg Priyanka Schrader Dhaval Work Phone: [facility] 250 DO Work Phone: 02-15-2022 14:39-0400 Diastolic blood pressure 60 mm[Hg] Priyanka Schrader Hemeyer Work Phone: [facility] 250 DO Work Phone: 02-15-2022 14:39-0400 Heart rate 78 /min Priyanka Malcolmyer Work Phone: [facility] 250 DO Work Phone: 02-15-2022 14:39-0400 Systolic blood pressure 140 mm[Hg] Priyanka Malcolmyer Work Phone: [facility] 250 DO Work Phone: 02-15-2022 14:39-0400 10 1 Prachizeeshan Macrina Dianayer Work Phone: [facility] 250 DO Work Phone: Comment on above: [id number] 02-03-2022 17:15-0400 Diastolic blood pressure 84 mm[Hg] MD Priyanka Puentes Work Phone: [facility] 02-03-2022 17:15-0400 Heart rate 78 /min MD Priyanka Puentes Work Phone: [facility] 02-03-2022 17:15-0400 Respiratory rate 20 /min MD Priyanka Puentes Work Phone: [facility] 02-03-2022 17:15-0400 SaO2% (BldA) [Mass fraction] 94 % MD Priyanka Puentes Work Phone: [facility] 02-03-2022 17:15-0400 Systolic blood pressure 185 mm[Hg] MD Priyanka Puentes Work Phone: [facility] 02-03-2022 16:00-0400 Body temperature 97.8 [degF] MD Priyanka Puentes Work Phone: [facility] 02-03-2022 10:25-0400 Body height 157.48 cm MD Priyanka Puentes Work Phone: [facility] 02-03-2022 10:25-0400 Body weight 77.5 kg MD Priyanka Puentes Work Phone: [facility] 01-21-2022 12:00-0400 Body temperature 97.6 [degF] MD Priyanka Puentes Work Phone: [facility] 01-21-2022 12:00-0400 Diastolic blood pressure 81 mm[Hg] MD Priyanka Puentes Work Phone: [facility] 01-21-2022 12:00-0400 Heart rate 73 /min MD Priyanka Puentes Work Phone: [facility] 01-21-2022 12:00-0400 Respiratory rate 20 /min MD Priyanka Puentes Work Phone: [facility] 01-21-2022 12:00-0400 SaO2% (BldA) [Mass fraction] 94 % MD Priyanka Puentes Work Phone: [facility] 01-21-2022 12:00-0400 Systolic blood pressure 150 mm[Hg] MD Priyanka Puentes Work Phone: [facility] 01-21-2022 05:59-0400 Body weight 79.6 kg MD Priyanka Puentes Work Phone: [facility] 01-19-2022 09:50-0400 Body height 157.48 cm MD Priyanka Puentes Work Phone: [facility] 01-18-2022 00:00-0400 55 1 Priyanka Puentes Work Phone: [facility] 250 DO Work Phone: Comment on above: [id number] 01-01-2022 11:00-0400 Body height 157.48 cm Eva Patelmond Other [facility] Other 01-01-2022 11:00-0400 Body mass index (BMI) [Ratio] 31.64 kg/m2 Eva Patelmond Other [facility] Other 01-01-2022 11:00-0400 Body temperature 97.1 [degF] Eva Patelmond Other [facility] Other 01-01-2022 11:00-0400 Body weight 78.47 kg Eva Patelmond Other [facility] Other 01-01-2022 11:00-0400 Diastolic blood pressure 101 mm[Hg] Eva Patelmond Other [facility] Other 01-01-2022 11:00-0400 Respiratory rate 18 /min Eva Patelmond Other [facility] Other 01-01-2022 11:00-0400 SaO2% (BldA) [Mass fraction] 96 % Eva Patelmond Other [facility] Other 01-01-2022 11:00-0400 Systolic blood pressure 156 mm[Hg] Eva Amarilys Other [facility] Other Encounters Encounter Date Encounter Type Care Provider Facility Start: 12-13-2023 End: 12-13-2023 ambulatory PRIYNAKA PUENTES Not Available Start: 08-31-2023 End: 08-31-2023 ambulatory [facility] Ambulatory Start: 08-31-2023 End: 08-31-2023 Office outpatient visit 15 minutes Karli Dougherty MD Work Phone: [facility] Comment on above: Coronary artery dise ase involving [place] coronary artery of [place] heart without angina pectoris (Primary Dx); Status post percutaneous transluminal coronary angioplasty; Mixed hyperlipidemia; Hypertension, benign; Dyspnea on exertion; BMI 27.0-27.9,adult; Former smoker Start: 08-30-2023 End: 08-30-2023 ambulatory PRIYANKA PUENTES Not Available Start: 08-08-2023 End: 08-08-2023 ambulatory PRIYANKA PUENTES Not Available Start: 07-21-2023 Clinisync Result Encounter Priyanka Puentes MD Work Phone: [facility] Unsolicited Start: 07-21-2023 Clinisync Result Encounter Priyanka Puentes MD Work Phone: [facility] Unsolicited Start: 07-05-2023 End: 07-05-2023 ambulatory PRIYANKA PUENTES Not Available Start: 05-08-2023 End: 05-08-2023 ambulatory PRIYANKA PUENTES Not Available Start: 03-12-2023 End: 03-14-2023 ambulatory Sima Hdz Facility:[facility] Start: 03-12-2023 End: 03-14-2023 Evaluation and management of inpatient MD Priyanka Puentes Work Phone: [facility] [place] [facility] Work Phone: Start: 03-12-2023 End: 03-14-2023 observation encounter MD Priyanka Puentes Work Phone: [facility] Work Phone: Start: 03-06-[address] Priyanka Puentes Facility:[id number] Start: 03-05-2023 End: 03-07-2023 ambulatory Priyanka Puentes Facility:[facility] Start: 03-05-2023 End: 03-07-2023 Evaluation and management of inpatient MD Priyanka Puentes Work Phone: [facility] [place] [facility] Work Phone: Start: 03-05-2023 End: 03-07-2023 observation encounter MD Priyanka Puentes Work Phone: [facility] Work Phone: Start: 03-02-2023 Telephone encounter Priyanka bhatt Work Phone: [facility] 600 DO Work Phone: Start: 02-16-2023 Office outpatient vi sit 15 minutes Priyanka Puentes Work Phone: [facility] 250 DO Work Phone: Start: 02-16-[address] Priyanka Puentes Facility: Start: 10-05-2022 End: 10-06-[address] PRIYANKA PUENTES . Facility:[facility] Start: 08-24-2022 Office outpatient vi sit 25 minutes Priyanka Puentes Work Phone: [facility] 250 DO Work Phone: Start: 08-24-[address] Priyanka Puentes Facility: Start: 08-15-2022 End: 08-16-[address] ANUM WOODY Facility:[facility] Start: 06-14-2022 End: 07-19-[address] PRIYANKA PUENTES . Facility:[facility] Start: 04-12-2022 End: 04-13-[address] PRIYANKA PUENTES . Facility:[facility] Start: 03-29-2022 End: 03-30-[address] PRIYANKA PUENTES . Facility:[facility] Start: 03-25-2022 Telephone encounter Priyanka bhatt Work Phone: [facility] 250 DO Work Phone: Start: 03-17-2022 Office outpatient vi sit 25 minutes Priyanka Puentes Work Phone: [facility] 600 DO Work Phone: Start: 03-17-2022 ambulatory Ms. Khanh Persaud Facility: Start: 02-24-2022 End: 06-14-[address] PRIYANKA PUENTES . Facility:[facility] Start: 02-15-2022 Office outpatient vi sit 25 minutes Priyanka Puentes Work Phone: [facility] 250 DO Work Phone: Start: 02-07-2022 Telephone encounter Priyanka bhatt Work Phone: [facility] 250 DO Work Phone: Start: 02-03-2022 End: 02-03-2022 Admission to same day surgery center MD Priyanka Puentes Work Phone: [facility] Start: 02-01-2022 End: 02-01-2022 Patient encounter procedure MD Priyanka Puentes Work Phone: [facility] Start: 01-27-2022 End: 01-28-[address] RAQUEL PERSAUD Facility:[facility] Start: 01-18-2022 End: 01-21-2022 Evaluation and management of inpatient MD Priyanka Puentes Work Phone: [facility] [place] [facility] Start: 01-18-2022 End: 01-18-2022 ambulatory BRITTNI LOTT . Facility:[facility] Start: 01-01-2022 End: 01-01-2022 ambulatory Eva Panda Other [facility] Other Start: 01-01-2022 Office outpatient ne w 20 minutes Eva Panda [facility] Procedures Date Procedure Procedure Detail Performing Clinician Start: 07-21-2023 MLR HEMOGLOBIN A1C Maine Puentes MD Work Phone: Start: 03-06-2023 Doppler ultrasonogra phy of bilateral carotid arteries MD Priyanka Puentes Work Phone: Start: 03-05-2023 CT angiography of head MD Priyanka Puentes Work Phone: Start: 03-05-2023 CT angiography of ne ck vessels MD Priyanka Puentes Work Phone: Start: 03-05-2023 CT of head without contrast MD Priyanka Puentes Work Phone: Start: 03-05-2023 Plain chest X-ray MD Prachi Puentes Work Phone: Start: 02-03-2022 CL PTCA [...] Work Phone: Reconstruction of bi le duct Priyanka Puentes Work Phone: SARS Antigen (LFIA) MD Medhat Puentes Work Phone: Tonsillectomy Priyanka Wilkins er Work Phone: NEGATED: Highlighted row has not occurred! Total colonoscopy Priyanka Puentes Work Phone: Plan of Treatment Date Care Activity Detail Author Start: 03-28-2025 Glaucoma screening Diabetes: Retinopathy Screening [facility] Start: 05-08-2024 End: 05-08-2024 Patient encounter procedure 05/08/2024 1:40 PM EST Office Visit [address] [address] Karli Dougherty MD [address] [facility] [address] [place] [address] [facility] Start: 08-31-2023 FUV, Provider: Karli Dougherty, Status: Pen, Time: 1:00 PM FUV, Provider: Karli Dougherty, Status: Pen, Time: 1:00 PM [facility] 250 DO Work Phone: Start: 08-08-2023 End: 08-08-2023 Patient encounter procedure 08/08/2023 10:00 AM EST Office Visit [facility] [address] [place] [address] Priyanka Puentes MD [address] [place] [address] (Fax) [facility] Start: 03-14-2023 [facility] Start: 03-12-2023 Referral to Car Bracer [facility] Start: 03-12-2023 Hospital admission [facility] Start: 03-12-2023 Physical therapy procedure [facility] Start: 03-12-2023 Referral to occupational therapist [facility] Start: 03-12-2023 [facility] Start: 03-07-2023 [facility] Start: 03-06-2023 Comprehensive metabolic 2000 panel - Serum or Plasma [facility] Start: 03-06-2023 Doppler ultrasonography of bilateral carotid arteries US carotid doppler BI [facility] Start: 03-06-2023 Lipid panel [facility] Start: 03-06-2023 [facility] Start: 03-05-2023 Hospital admission [facility] Start: 03-05-2023 Physical therapy procedure [facility] Start: 03-05-2023 Referral to occupational therapist [facility] Start: 03-05-2023 [facility] Start: 03-05-2023 [facility] Start: 02-16-2023 FUV, Provider: Karli Dougherty, Status: Pen, Time: 1:20 PM FUV, Provider: Karli Dougherty, Status: Pen, Time: 1:20 PM [facility] Work Phone: Start: 11-15-2022 Hemoglobin A1c measurement Diabetes: Hemoglobin A1C [facility] Start: 08-23-2022 Medicare Annual Wellness (AWV) Medicare Annual Wellness (AWV) [facility] Start: 07-06-2022 FUV, Provider: Karli Dougherty, Status: Pen, Time: 2:20 PM FUV, Provider: Karli Dougherty, Status: Pen, Time: 2:20 [facility] Work Phone: Start: 03-17-2022 FUV, Provider: Khanh Mercado, Status: Pen, Time: 3:30 PM FUV, Provider: Khanh Mercado, Status: Pen, Time: 3:30 PM [facility] 250 DO Work Phone: Start: 02-03-2022 [facility] Work Phone: Start: 02-03-2022 Hospital admission [facility] Work Phone: Start: 02-03-2022 CL PTCA Ea Add LAD CL PTCA Ea Add LAD [facility] Start: 02-03-2022 CL Stent 1st Vessel LAD GAYATHRI CL Stent 1st Vessel LAD GAYATHRI [facility] Start: 02-03-2022 [facility] Start: 02-03-2022 End: 02-03-2022 Admission to same day surgery center Departed Surgical Day Care [facility] Start: 02-01-2022 End: 02-01-2022 Patient encounter procedure Departed Clinical [facility] Start: 01-21-2022 [facility] Work Phone: Start: 01-18-2022 Referral to triage rn [facility] Work Phone: Start: 01-18-2022 Hospital admission [facility] Work Phone: Start: 01-18-2022 Dilation of Coronary Artery, Two Arteries with Four or More Drug-eluting Intraluminal Devices, Percutaneous Approach Dilation of Coronary Artery, Two Arteries with Four or More Drug-eluting Intraluminal Devices, Percutaneous Approach [facility] Start: 01-18-2022 Fluoroscopy of Left Heart using Low Osmolar Contrast Fluoroscopy of Left Heart using Low Osmolar Contrast [facility] Start: 01-18-2022 Fluoroscopy of Multiple Coronary Arteries using Low Osmolar Contrast Fluoroscopy of Multiple Coronary Arteries using Low Osmolar Contrast [facility] Start: 01-18-2022 Measurement of Cardiac Sampling and Pressure, Left Heart, Percutaneous Approach Measurement of Cardiac Sampling and Pressure, Left Heart, Percutaneous Approach [facility] Start: 10-16-2018 Urine screening for protein Diabetes: Urine Protein Screening [facility] Start: 02-21-1992 Zoster Vaccines (1 of 2) Zoster Vaccines (1 of 2) [facility] Start: 02-21-1964 DTaP/Tdap/Td Vaccines (1 - Tdap) DTaP/Tdap/Td Vaccines (1 - Tdap) [facility] Start: 1942 Lipid panel Lipid Panel [facility] Start: 1942 Medicare Annual Wellness Visit Medicare Annual Wellness Visit (AWV) [facility] Start: 1942 Thyroid stimulating hormone measurement TSH Level [facility] Patient Education [facility] Work Phone: Patient referral [facility] Work Phone: Immunizations Immunization Date Immunization Notes Care Provider [facility] 05-09-2023 Influenza, High-dose Seasonal, Quadrivalent, Preservative Free Priyanka Puentes MD Work Phone: [facility] 05-17-2022 Fluzone High-Dose Quadrivalent 0.7 ML Intramuscular Suspension Prefilled Syringe Priyanka Puentes Work Phone: [facility] 250 DO Work Phone: 04-29-2022 Moderna Bivalent Saenz ster Vaccination Priyanka Puentes MD Work Phone: [facility] 04-29-2022 Pfizer COVID-19 Vac Bivalent 30 MCG/0.3ML Intramuscular Suspension Priyanka Puentes Work Phone: [facility] Work Phone: 04-19-2021 influenza, injectabl e, quadrivalent, preservative free Edzeeshan Puentes Work Phone: [facility] 03-17-2021 Pfizer-BioNTech COVI D-19 Vacc 30 MCG/0.3ML Intramuscular Suspension Priyanka Puentes Work Phone: [facility] 250 DO Work Phone: 03-16-2021 Pfizer Purple Cap SARS-CoV-2 Vaccination Priyanka Puentes MD Work Phone: [facility] 07-31-2020 COVID-19 mRNABob (Pfizer) MD Priyanka Puentes Work Phone: [facility] 07-30-2020 Pfizer Purple Cap SARS-CoV-2 Vaccination Priyanka Puentes MD Work Phone: [facility] 07-08-2020 Pfizer-BioNTech COVI D-19 Vacc 30 MCG/0.3ML Intramuscular Suspension Priyanka Puentes Work Phone: [facility] 250 DO Work Phone: 07-07-2020 Pfizer Purple Cap SARS-CoV-2 Vaccination Priyanka Puentes MD Work Phone: [facility] 07-03-2020 COVID-19 mRNABob (Pfizer) MD Priyanka Puentes Work Phone: [facility] 03-26-2020 Seasonal trivalent influenza vaccine, adjuvanted, preservative free Priyanka Puentes Work Phone: [facility] 250 DO Work Phone: 03-25-2020 Seasonal trivalent influenza vaccine, adjuvanted, preservative free Priyanka Puentes MD Work Phone: [facility] 04-09-2019 influenza, injectabl e, quadrivalent, preservative free Priyanka Puentes MD Work Phone: [facility] 04-09-2019 Seasonal trivalent influenza vaccine, adjuvanted, preservative free Priyanka J Hemeyer Work Phone: [place] [address] DO Work Phone: 04-03-2018 influenza, injectabl e, quadrivalent, preservative free Priyanka J Hemeyer Work Phone: [place] [address] DO Work Phone: 04-02-2018 influenza, injectabl e, quadrivalent, preservative free Priyanka Puentes MD Work Phone: [facility] 04-02-2018 pneumococcal conjuga te vaccine, 13 valent Edward J Hemeyer Work Phone: [place] [address] DO Work Phone: 03-20-2017 pneumococcal conjuga te vaccine, 13 valent Prachiward J Hemeyer Work Phone: [place] [address] DO Work Phone: 03-13-2017 influenza, seasonal, injectable Edward J Hemeyer Work Phone: [place] [address] DO Work Phone: 04-14-2016 influenza, injectabl e, quadrivalent, contains preservative Prachiward J Hemeyer Work Phone: [place] [address] DO Work Phone: 04-12-2016 influenza, injectabl e, quadrivalent, preservative free Priyanka Puentes MD Work Phone: [facility] 04-17-2015 influenza, injectabl e, quadrivalent, preservative free Priyanka Puentes MD Work Phone: [facility] 04-03-2015 influenza, seasonal, injectable Priyanka Puentes Work Phone: [facility] 250 DO Work Phone: 05-20-2009 pneumococcal polysaccharide vaccine, 23 valent Priyanka Puentes Work Phone: [facility] 250 DO Work Phone: Payers Date Payer Category Payer Unknown 2007 Medicare [id number] 1959 Medicare [id number]. [id number] 1959 Medicare [id number] 2.1 [id number] 1942 Unknown [id number] 2.16.84 [id number] 1942 Unknown [id number] 2.16.84 [id number] 1942 Unknown [id number] 2.16.84 [id number] 1942 Unknown [id number] 2.16.84 [id number] 1942 Unknown [id number] 2.16.84 [id number] 1942 Unknown [id number] 2.16.84 [id number] 1942 Unknown [id number] 2.16.84 [id number] 1942 Unknown [id number] 2.16.84 [id number] 1942 Unknown [id number] 2.16. [id number] 1942 Unknown [id number] 2.16. [id number] 1942 Unknown [id number] 2.16. [id number] 1940 Unknown [id number] 2.16. [id number] 1940 Unknown [id number] 2.16.8 40.1.261778.3.579.2.1244 1940 Unknown [id number] 2.16.84 0.1.200070.3.579.2.1259 1940 Unknown [id number] 2.16.84 0.1.797367.3.579.2.1259 1940 Unknown [id number] 2.16.84 0.1.871562.3.579.2.1259 1940 Unknown [id number] 2.16.84 0.1.156291.3.579.2.1259 1940 Unknown [id number] 2.16.840 .[id number] Medicare Medicare Outpatient [id number] 1D [id number] Self-pay Self Pay [id number] Unknown [id number] Unknown [facility] [id number] Social History Date Type Detail Facility Start: 02-15-2022 End: 02-14-2023 Sex Assigned At [facility] Start: 02-03-2022 End: 08-31-2023 Tobacco smoking status NHIS Ex-smoker (finding) [facility] Start: 1940 Sex Assigned At Female F [facility] Start: 02-15-2022 End: 02-14-2023 Former smoker Former smoker [facility] Comment on above: nicotine lozenges; Start: 03-12-2023 Tobacco smoking stat us NHIS Smoker (finding) [facility] History of tobacco use Cigarette Smoker N [facility] Start: 07-05-2023 Alcohol intake Ex-drinker (finding) [facility] Within the last year , have you been afraid of your partner or ex-partner? No [facility] Are you now , , , , never or living with a partner? [facility] How often to you hav e a drink containing alcohol? Never [facility] How many standard drinks containing alcohol do you have on a typical day? Patient does not drink [facility] Do you feel stress - tense, restless, nervous, or anxious, or unable to sleep at night because your mind is troubled all the time - these days [OSQ] Not at all [facility] (I/We) worried wheth er (my/our) food would run out before (I/we) got money to buy more. Never true [facility] Start: 02-14-2023 Tobacco Comment Last smoked : 1-5 years [facility] Start: 01-18-2023 Alcohol Comment Caffeine intak e: 3 cups decaf per day [facility] Start: 1940 Sex Assigned At Not on file N [facility] Start: 08-31-2023 Tobacco use and exposure Smokeless tobacco non-user [facility] Work Phone: Start: 08-31-2023 Alcohol intake Lifetime non-d carolyn (finding) [facility] Work Phone: Start: 08-21-2023 End: 08-31-2023 Exposure to SARS-CoV-2 (event) Not sure [facility] Medical Equipment Procedure Code Equipment Code Equipment Original Text Equipment Identifier Dates [id number] [facility] Start: 01-20-2022 Drug-eluting cor onary artery stent, pyy-xslvslbbjnqdv-mfjqn er-coated ()[id number] FDA Start: 01-20-2022 Drug-eluting cor onary artery stent, ndd-qpuzpncmxiwjn-zkajw er-coated ()[id number] FDA Start: 01-20-2022 Drug-eluting cor onary artery stent, prz-qpgfyfqnxczjm-dzvgx er-coated ()[id number] FDA Start: 01-20-2022 Drug-eluting cor onary artery stent, hhw-vuabsrtpaeyqr-tzmjn er-coated ()[id number] FDA Start: 02-03-2022 [id number] FDA Start: 01-20-2022 [id number] FDA Start: 01-20-2022 [id number] FDA Start: 01-20-2022 [id number] FDA Start: 01-20-2022 [id number] FDA Start: 01-20-2022 [id number] FDA Start: 01-20-2022 Goals Date Patient Goal Desired Activity /State Functional Status Date Assessment Result Facility 03-14-2023 Functional status Patient at [facility] Work Phone: 03-07-2023 Functional status Patient at [facility] Work Phone: 03-05-2023 Functional status Disability Sta tus Patient at [facility] Work Phone: 02-15-2022 PHQ-9 [id number] Moderate (10-14) [facility] 250 DO Work Phone: 02-03-2022 Functional status Patient at [facility] Work Phone: 01-21-2022 Functional status Patient at [facility] Work Phone: Mental Status Date Assessment Result Facility 03-14-2023 Cognitive function Cognitive Sta tus Patient at [facility] Work Phone: 03-07-2023 Cognitive function Cognitive Sta tus Patient at [facility] Work Phone: 02-03-2022 Cognitive function Cognitive Sta tus Patient at [facility] Work Phone: 01-21-2022 Cognitive function Cognitive Sta tus Patient at [facility] Work Phone: Clinical Notes 08-24-2021 to 08-31-2023 Karli Dougherty MD - 08/31/2023 1:00 PM EDTPatient Instructions Note Date & Type Note Facility 08-31-2023 History of Present illness Narrative Subjective Steven Harding is a 83 y.o. female Chief Complaint Follow-up HPI Patient is here for follow-up and management for coronary artery disease with prior PCI to the RCA and circumflex, hypertension, hyperlipidemia. She was in the hospital back in February and cephalojust med of her medication was made. Her losartan and Aldactone was discontinued. Since then she reports she has been feeling well. She denies complaint of chest pain, palpitation, lightheadedness, dizziness or syncope. She report social stress because the passing of her son-in-law because of arterial tear during placing hemodialysis catheter recently. Cardiac vicente she has been feeling well and denying any complaint. Assessment 1. Coronary artery disease with prior presentation myocardial infarction and PCI to the RCA and left circumflex doing well with no recurrence of her symptoms 2. Hypertension controlled. Medication was adjusted. Losartan and Aldactone was discontinued during recent hospitalization due to hypotension 3. Hyperlipidemia no recent lab 4. Mildly overweight 5. Previous complaint of shortness of breath resolved 6. Social stress due to the passing of her son in law Plan 1. The patient was advised to continue present medical therapy unchanged. In the future we may consider switching amlodipine back to losartan considering she is borderline diabetic 2. I advised her to forward copy of his lab work when it is done I did review with her her recent hospitalization record 3. I we will see her back in the office in 8 months and follow-up Review of Systems Respiratory: Positive for shortness of breath. All other systems reviewed and are negative. Vitals: 08/31/23 1256 08/31/23 1323 BP: 140/70 136/70 BP Location: Left arm Patient Position: Sitting Pulse: 72 Weight: 68.5 kg (151 lb) Height: 1.575 m (5' 2 ) Objective Physical Exam Constitutional: Appearance: Normal appearance. HENT: Nose: Nose normal. Neck: Vascular: No carotid bruit. Cardiovascular: Rate and Rhythm: Normal rate. Pulses: Normal pulses. Heart sounds: Normal heart sounds. Pulmonary: Effort: Pulmonary effort is normal. Abdominal: General: Bowel sounds are normal. Palpations: Abdomen is soft. Musculoskeletal: General: Normal range of motion. Cervical back: Normal range of motion. Right lower leg: No edema. Left lower leg: No edema. Skin: General: Skin is warm and dry. Neurological: General: No focal deficit present. Mental Status: She is alert. Psychiatric: Mood and Affect: Mood normal. Behavior: Behavior normal. Thought Content: Thought content normal. Judgment: Judgment normal. Allergies Clindamycin, Codeine, Minocycline, and Ticagrelor Current Medications Current Outpatient Medications: albuterol (Ventolin HFA) 90 mcg/actuation inhaler, Inhale if needed., Disp: , Rfl: amLODIPine (Norvasc) 5 mg tablet, 1 tablet (5 mg) once daily., Disp: , Rfl: aspirin 81 mg EC tablet, Take 1 tablet (81 mg) by mouth once daily., Disp: , Rfl: clopidogrel (Plavix) 75 mg tablet, Take 1 tablet (75 mg) by mouth once daily., Disp: , Rfl: levothyroxine (Synthroid, Levoxyl) 112 mcg tablet, Take 1 tablet (112 mcg) by mouth once daily., Disp: , Rfl: metFORMIN (Glucophage) 850 mg tablet, Take 1 tablet (850 mg) by mouth 2 times a day with meals., Disp: , Rfl: metoprolol tartrate (Lopressor) 25 mg tablet, Take 1 tablet (25 mg) by mouth 2 times a day., Disp: , Rfl: nitroglycerin (Nitrostat) 0.4 mg SL tablet, Place 1 tablet (0.4 mg) under the tongue if needed., Disp: , Rfl: oxybutynin (Ditropan) 5 mg tablet, 1 tablet (5 mg) 2 times a day., Disp: , Rfl: potassium chloride CR 20 mEq ER tablet, Take 1 tablet (20 mEq) by mouth once daily., Disp: , Rfl: vitamin B complex tablet, Take 1 tablet by mouth once daily., Disp: , Rfl: atorvastatin (Lipitor) 80 mg tablet, Take 1 tablet (80 mg) by mouth once daily at bedtime., Disp: 90 tablet, Rfl: 3 Assessment/Plan 1. Coronary artery disease involving duckwater coronary artery of duckwater heart without angina pectoris Follow Up In Cardiology 2. Status post percutaneous transluminal coronary angioplasty 3. Mixed hyperlipidemia atorvastatin (Lipitor) 80 mg tablet 4. Hypertension, benign 5. Dyspnea on exertion 6. BMI 27.0-27.9,adult 7. Former smoker Scribe Attestation By signing my name below, I, Ruba Dong LPN , Scribe attest that this documentation has been prepared under the direction and in the presence of Karli Dougherty MD. Provider Attestation - Scribe documentation All medical record entries made by the Scribe were at my direction and personally dictated by me. I have reviewed the chart and agree that the record accurately reflects my personal performance of the history, physical exam, discussion and plan. documented in this encounter [facility] Work Phone: 08-31-2023 Instructions Ruba Chowdhury LPN - 08/31/2023 1:00 PM EDT Please bring all medicines, vitamins, and herbal supplements with you when you come to the office. Prescriptions will not be filled unless you are compliant with your follow up appointments or have a follow up appointment scheduled as per instruction of your physician. Refills should be requested at the time of your visit. BMI was above normal measurement. Current weight: 68.5 kg (151 lb) Weight change since last visit (-) denotes wt loss 6 lbs Weight loss needed to achieve BMI 25: 14.6 Lbs Weight loss needed to achieve BMI 30: -12.7 Lbs Provided instructions on dietary changes Provided instructions on exercise. documented in this encounter [facility] Work Phone: 03-13-2023 Progress note Note Date/Time March 13, 2023 4:47pm [facility] [address] [place] [address] Hospitalist Progress Note Signed Patient: Steven Harding MR#: [id number] : 1940 Acct:[id number] Age/Sex: 83 / F Adm Date: 3 Loc: 4P Room: [address] [place] [address] Type: ADM INOo Attending Dr: Rufus Ricks [...] Hyponatremia of 128. TSH was suppressed on [place] Thyroid and has been checked twice with [...] <Electronically signed by Rufus Ricks DO> 03/13/23 7120 [facility] Work Phone: 1(173) 768-815110-01-2023 History and physical note Author Sima Hdz [facility] March 12, 2023 7:49pm Note Date/Time March 12, 2023 7: 50pm [facility] [address] [place] [address] Hospitalist H&P Signed Patient: Steven Harding MR#: [id number] : 1940 Acct:[id number] Age/Sex: 83 / F Adm Date: 3 Loc: Room: [address] [place] [address] Type: ADM IN Attending Dr: Sima Hdz [...] negative unless noted below or in HPI [facility] Medical History Aneurysm Aortic. Being monitored. 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 TSH was suppressed on [place] Thyroid and has been checked twice with [...] <Electronically signed by Sima Hdz MD> 03/12/231948 [facility] Work Phone: 1(845) 962-232109-26-2023 Discharge summary Author Chuck Chacon [facility] March 07, 2023 9:30am Note Date/Time March 07, 2023 9:30am [facility] [address] [place] [address] Discharge Summary Signed Patient: Steven Harding MR#: [id number] : 1940 Acct:[id number] Age/Sex: 83 / F Adm Date: 3 Loc: Room: [address] [place] [address]: Chuck Chacon MD Copies to: [...] been attempted on scopolamine patch, and her triage rn had decreased herlosartan dose. She presented again [...] follow-up with her primary care physician and triage rn as an outpatient for further management. She may be reintroduced to some of her cardioprotective antihypertensives in the future if deemed reasonable by her triage rn and primary care physician. 35 minutes spent [...] TABLET BY MOUTH TWICE DAILY thyroid (pork) [WATER SUPPLY TECHNICIAN Thyroid] 60 mg tablet 60 mg PO [...] needed.) Documented By: Chuck Chacon MD 3 921 Signed By: <Electronically signed by Chuck Chacon MD> 03/07/23929 [facility] Work Phone: 1(433) 267-770109-25-2023 Progress note Author Chuck Chacon [facility] March 06, 2023 1:51pm Note Date/Time March 06, 2023 1:38pm [facility] [address] [place] [address] Hospitalist Progress Note Signed Patient: Steven Harding MR#: [id number] : 1940 Acct:[id number] Age/Sex: 83 / F Adm Date: 3 Loc: Room: [address] [place] [address] Type: ADM INOo Attending Dr: Chuck Chacon [...] Room Air 03/06/23 12:00 03/06/23 12:00 03/06/23 12:00 03/06/23 12:00 03/06/23 12:03/06/23 12:00 Narrative: Constitutional: Elderly WF, resting [...] 1,000 Ml IV 03/07/23 07:49 60 mls/hr .[id number] YVROSE Administration Insulin Aspart 0 units 03/06/23 [...] be improved from previous assessment during patient's SD -We will trend orthostatic vital signs -Monitor on telemetry for at least 24 hours -Continue metoprolol, continue to hold losartan, spironolactone and nifedipine for now -May consider restarting low doses in the a.m.-patient has lost close to 60 pounds since her SD-likely that BP medications are more potent -PT/OT [...] status Documented By: Chuck Chacon MD 3 7036 Signed By: <Electronically signed by Chuck Chacon MD> 03/06/23 1351 [facility] Work Phone: 1(647) 743-786809-25-2023 History and physical note Author Jemal Jones [facility] March 05, 2023 11:19pm Note Date/Time March 05, 2023 10:21pm [facility] [address] [place] [address] Hospitalist H&P Signed Patient: Steven Harding MR#: [id number] : 1940 Acct:[id number] Age/Sex: 83 / F Adm Date: 3 Loc: Room: [address] [place] [address] Type: ADM INOo Attending Dr: Jemal Jones [...] current visual changes, headache. Noted that her triage rn has recently decreased her losartan due to [...] except as mentioned elsewhere in the documentation [facility] Medical History Aneurysm Aortic. Being monitored. 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) 60 mg PO BID 01/18/22 [History [...] % (Auto) 14.7 % (.) 03/05/23 18:07 Coos % (Auto) 5.4 % (.) 03/05/23 18:07 Eos % (Auto) 2.8 % (.) 03/05/23 18:07 Baso % (Auto) 0.5 % (.) 03/05/23 18:07 Nucleat RBC Rel Count 0.1 /100 WBC (0-0.5) 03/05/23 18:07 Neut # (Auto) 8.7 x10E3/uL (1.8-7.7) H 03/05/23 18:07 Lymph # (Auto) 1.7 x10E3/uL (1.00-4.8) 03/05/23 18:07 Coos # (Auto) 0.6 x10E3/uL (0.0-0.8) 03/05/23 18:07 [...] <Electronically signed by Jemal Jones MD> 03/05/23 9593 [facility] Work Phone: 1(319) 374-424508-25-2022 [facility] Progress note Author Wiley Beal [facility] January 20, 2022 1:31pm Note Date/Time January 20, 2022 1: 31pm [facility] [address] [place] [address] Hospitalist Progress Note Signed Patient: Steven Harding MR#: [id number] : 1940 Acct:[id number] Age/Sex: 81 / F Adm Date: 2 Loc: Room: 1O6152-2 Type: ADM IN Attending Dr: Wiley Beal [...] of care and confirmed it with 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 Patient was seen and examined at bedside [...] Insuln.Pen SUBCUT 01/19/23 07:59 Not Given TID.WM.[facility] Protocol Losartan Potassium 100 mg 01/18/22 [...] PAD Hypothyroidism Documented By: Wiley Beal MD 01/20/22 0930 Signed By: <Electronically signed by Wiley Beal MD> 01/20/22 1331 [facility] Work Phone: 1(825) 105-656008-11-2022 [facility] [facility]08-10-2022 Progress note Author Wiley Beal [facility] January 19, 2022 1:35pm Note Date/Time January 19, 2022 1: 35pm [facility] [address] [place] [address] Hospitalist Progress Note Signed Patient: Steven Harding MR#: [id number] : 1940 Acct:[id number] Age/Sex: 81 / F Adm Date: 2 Loc: 4 Room: [address] [place] [address] Type: ADM IN Attending Dr: Wiley Beal [...] pain. [facility] he pain is much better CXR [facility] ED reported as no acute cardiopulmonary abnormality EKG [facility] ED (i personally reviewed it) shows NSR@90 bpm no significant acute changes nitro patch(started in [place] [facility]) Morphine prn Telemetry Antiplatelet: Aspirin Anticoagulation: Heparin Drip (started in [place] [facility]) Start Beta sarbjit therapy Serial EKGs [...] bedside Documented By: Wiley Beal MD 01/19/22 6481 Signed By: <Electronically signed by Wiley Beal MD> 01/19/22 2883 [facility] Work Phone: 1(241) 504-677108-10-2022 Consult note Author Karli Dougherty [facility] January 19, 2022 12:38pm Note Date/Time January 19, 2022 12 :25pm [facility] [address] [place] [address] Cardiology Consult Note Signed with Addenda Patient: Steven Harding MR#: [id number] : 1940 Acct:[id number] Age/Sex: 81 / F Adm Date: 2 Loc: Room: [address] [place] [address] Type: ADM IN Attending Dr: iWley Beal MD Copies to: MD Priyanka Latif MD Mourhaf A Traboulssi, MD~ ADDENDUM1 I failed to notice the patient is on losartan we will leave for now for the timebeing on losartan Addendum Documented By: MD Karli Dougherty 01/19/22 1238 Addendum Signed By: <Electronically signed by MD Karli Dougherty> 01/19/22 1238 Cardiology HPI History of [...] Confirmed 01/18/22] thyroid (pork) 60 mg tablet (WATER SUPPLY TECHNICIAN Thyroid) 60 mg PO DAILY 01/18/22 [History [...] x10E3/uL Lymph # (Auto) 1.5 (1.00-4.8) x10E3/uL Coos # (Auto) 0.4 (0.0-0.8) x10E3/uL Eos # [...] to proceed with invasive assessment Documented By: Karli Dougherty MD 01/19/22 1222 Signed By: <Electronically signed by MD Karli Dougherty> 01/19/22 1237 [facility] Work Phone: 1(497) 436-513608-10-2022 History and physical note Author Justa Westfall [facility] January 19, 2022 7:35am Note Date/Time January 18, 2022 11: 29pm [facility] [address] [place] [address] Hospitalist H&P Signed Patient: Steven Harding MR#: [id number] : 1940 Acct:[id number] Age/Sex: 81 / F Adm Date: 2 Loc: Room: [address] [place] [address] Type: ADM IN Attending Dr: Justa Westfall MD Copies to: MD Justa Santos MD~ HPI DATE OF EXAMINATION: 01/18/22 HISTORY OF PRESENT ILLNESS: This is a pleasant 81F with PMH of HTN, PAD(s/p stenting), Prediabetes, Hypothyroidism who p/w chest pain to the [facility] and transferred for the evaluation and treatment [...] all negative except [facility] Vaccinated for COVID-19?: Unknown Medical History (Updated [...] Confirmed 01/18/22] thyroid (pork) 60 mg tablet (WATER SUPPLY TECHNICIAN Thyroid) 60 mg PO DAILY 01/18/22 [History [...] pain. [place] he pain is much better CXR [facility] ED reported as no acute cardiopulmonary abnormality EKG [facility] ED (i personally reviewed it) shows NSR@90 bpm no significant acute changes nitro patch(started in [place] ED) Morphine prn Telemetry Antiplatelet: Aspirin Anticoagulation: Heparin Drip (started in [place] [facility]) Start Beta sarbjit therapy Serial EKGs [...] bedside Documented By: Justa Westfall MD 01/18/22 6273 Signed By: <Electronically signed by Justa Westfall MD> 01/19/22 6145 [facility] Work Phone: 1(949) 111-664307-23-2022 Evaluation note* Encounter Date Diagnosis Assessment Notes Treatment Notes Treatment Clinical Notes Dec, Herpes zoster without complication (ICD-10 - B02.9) Shingles home care material was printed Drink plenty fluids, get plenty of rest. Continue your home medications as prescribed. Take the valacyclovir as prescribed until gone. Use the eye ointment as prescribed for comfort. Call Dr. Lenz's office thing Monday for an appointment to be seen in follow-up as soon as possible. Go to the ER for worsening symptoms or concerns. You may use uycj-wma-dwqnneh lidocaine gel to the rash for comfort. Patient reports her director of estate is Dr. Lenz, she will follow-up with them on Monday. [facility] Other 03-15-2022 History of Present illness Narrative* [...] and importance of staying active and exercise [facility] 250 DO Work Phone: Discharge summary Author Wiley Beal [facility] January 22, 2022 4:43pm Note Date/Time January 21, 2022 1: 46pm [facility] [address] [place] [address] Discharge Summary Signed Patient: Steven Harding MR#: [id number] : 1940 Acct:[id number] Age/Sex: 81 / F Adm Date: 2 Loc: 4 Room: 0C8529-[address]: Wiley Beal MD Copies to: [...] was anticoagulated with heparin, taken to the [facility]. On January 19, she was found to [...] p CL Stent 1st Vessel RCA GAYATHRI Hooks MD p CL Stent 1st Vessel CX GAYATHRI Hooks MD Diagnostic Studies Completed and Pending [...] % (Auto) 74.5, Lymph % (Auto) 14.2, Coos % (Auto) 6.7, Eos % (Auto) 4.2, Baso % (Auto) 0.4, Neut # (Auto) 6.3, Lymph # (Auto) 1.2, Coos # (Auto) 0.6, Eos# (Auto) 0.4, Baso [...] scheduled for STAGED ANGIOPLASTY at [facility] on 02/03/2022 at 1:00pm with Dr Hooks; please check in at 11:00am- follow instructions You are scheduled for COVID testing at [facility] on 02/01/2022 at 10:00am for upcoming Angioplasty. [...] doctor or pharmacist, without first calling the triage rn who implanted the stent. If you require [...] weight lifting, stair steppers, etc. until the triage rn approves these activities. Check with the triage rn on your first follow-up visit. CALL YOUR PHYSICIAN at [phone]: -If bleeding should occur from the catheter insertion site- apply pressure to the site then immediately call us. -Report any fever, redness, drainage, increased swelling, or firmness at the catheter insertion site. Some bruising or slight swelling may be present at thetime of discharge. -Should arm or leg become cold, numb, white, or blue, contact the triage rn immediately. -IF you should experience episodes of [...] is recommended. Please call Central Scheduling at [phone] to schedule your appointment.] The attending triage rn or [facility] nurse clinician should provide you with specific instructions regarding activity, diet, medications, and further follow up for you. Follow the medication instructions provided on your discharge. If the dosages and instructions on this sheet differ from the dosage and instructions on the bottle, follow the instructions on the bottle. [facility] is not responsible for incorrect prescription [...] tablet 100 mg PO DAILY thyroid (pork) [WATER SUPPLY TECHNICIAN Thyroid] 60 mg tablet 60 mg PO [...] <Electronically signed by Wiley Beal MD> 01/22/22 1643 [facility] Work Phone: Discharge summary [facility] March 14, 2023 3:31pm Note Date/Time March 14, 2023 3: 31pm [facility] [address] [place] [address] Discharge Summary Signed Patient: Steven Harding MR#: [id number] : 1940 Acct:[id number] Age/Sex: 83 / F Adm Date: 3 Loc: Room: [address] [place] [address]: Rufus Ricks DO Copies to: [...] DAILY Qty: 30 0RF Held thyroid (pork) [WATER SUPPLY TECHNICIAN Thyroid] 60 mg tablet 60 mg PO [...] signed by Rufus Ricks DO> 03/14/23 1531 [facility] Work Phone: Evaluation note* Diagnosis Onset Date Resolution Status ACS (acute coronary syndrome) acute Hypertension acute Hypothyroidism acute NSTEMI (non-ST elevated myocardial infarction) acute Peripheral vascular disease acute Prediabetes acute [facility] Work Phone: Evaluation note* Diagnosis Onset Date Resolution Status Dizziness acute [facility] Work Phone: Evaluation note* Diagnosis Onset Date Resolution Status Acute hyponatremia acute Dizziness acute Pre-syncope acute [facility] Work Phone: evaluation note* Diagnosis Onset Date Resolution Status Acute hyponatremia acute Dizziness acute Pre-syncope acute Acute hyponatremia acute CAD (coronary artery disease) acute Hypertensive urgency acute Hypothyroidism acute [facility] Work Phone: Evaluation note* Diagnosis Coronary artery disease involving duckwater coronary artery of duckwater heart without angina pectoris- Primary Status post percutaneous transluminal coronary angioplasty Postsurgical percutaneous transluminal coronary angioplasty status Mixed hyperlipidemia Hypertension, benign Essential hypertension, benign Dyspnea on exertion Other dyspnea and respiratory abnormality BMI 27.0-27.9,adult Former smoker Personal history of tobacco use, presenting hazards to health documented in this encounter [facility] Work Phone: History and physical note Author Sima Hzd [facility] March 12, 2023 7:49pm Note Date/Time March 12, 2023 7: 50pm [facility] [address] [place] [address] Hospitalist H&P Signed Patient: Steven Harding MR#: [id number] : 1940 Acct:[id number] Age/Sex: 83 / F Adm Date: 3 Loc: Room: [address] [place] [address] Type: ADM IN Attending Dr: Sima Hdz [...] negative unless noted below or in HPI [facility] Medical History Aneurysm Aortic. Being monitored. 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) 60 mg PO BID 01/18/22 [History [...] % (Auto) 13.2 % (.) 03/12/23 14:45 Coos % (Auto) 5.1 % (.) 03/12/23 14:45 Eos % (Auto) 2.0 % (.) 03/12/23 14:45 Baso % (Auto) 0.4 % (.) 03/12/23 14:45 Nucleat RBC Rel Count 0.0 /100 WBC (0-0.5) 03/12/23 14:45 Neut # (Auto) 7.0 x10E3/uL (1.8-7.7) 03/12/23 14:45 Lymph # (Auto) 1.2 x10E3/uL (1.00-4.8) 03/12/23 14:45 Coos # (Auto) 0.5 x10E3/uL (0.0-0.8) 03/12/23 14:45 [...] pH 7.5 (5.0-9.0) 03/12/23 15:55 Ur Specific [place] 1.010 (1.001-1.030) 03/12/23 15:55 Urine Protein Negative mg/dL (Negative) 03/12/23 15:55 Urine Glucose (UA) Normal mg/dL (Normal) 03/12/23 15:55 Urine Ketones Negative (Negative) 03/12/23 15:55 Urine Occult Blood Negative (Negative) 03/12/23 15: Urine Nitrite Negative (Negative) 03/12/23 15: Urine Bilirubin Negative (Negative) 03/12/23 15:55 Urine [...] Hyponatremia of 128. TSH was suppressed on [place] Thyroid and has been checked twice with [...] <Electronically signed by Sima Hdz MD> 03/12/231948 [facility] Work Phone: History general Narrative - Reported* Type Description Date Medical History Hypertension Medical History Insulin Resistant Surgical History teeth extraction upper Surgical History skin cancer removal 2018 Hospitalization History see above Trunk Archive Other History of Present illness Narrative* The [...] the patient complains of medication side effects. [facility] 250 DO Work Phone: History of Present [...] medication regimen. She denies medication side effects. [facility] 600 DO Work Phone: History of Present illness Narrative* Patient is [...] her back in 6 months and follow-up [facility] 250 DO Work Phone: [facility]: [facility] Work Phone: Progress note Author Wiley Beal [facility] January 21, 2022 1:42pm Note Date/Time January 21, 2022 1: 42pm [facility] [address] [place] [address] Hospitalist Progress Note Signed Patient: Steven Harding MR#: [id number] : 1940 Acct:[id number] Age/Sex: 81 / F Adm Date: 2 Loc: Room: [address] [place] [address] Type: ADM IN Attending Dr: Wiley Beal [...] of care and confirmed it with 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 Patient was seen and examined at bedside [...] Insuln.Pen SUBCUT 01/19/23 07:59 Not Given TID.WM.HS [facility] Protocol Losartan Potassium 100 mg 01/18/22 23:10 01/21/22 08:42 Losartan 50 Mg Tablet PO 01/18/23 23:09 100 mg DAILY [facility]SE Administration Metoprolol Tartrate 25 mg 01/18/22 23:15 01/21/22 08:42 Metoprolol Tartrate 25 Mg Tablet PO 01/18/23 23:14 25 mg BID [facility] Administration Miscellaneous Information 1 each 01/20/22 09:05 Consult To Pharmacy MISCELLANE 01/20/23 09:04 .PHACONSULT PRN ZZ.Pharmacy Consult Protocol Morphine Sulfate 1 mg 01/18/22 22:38 Morphine Sulfate 2 Mg/Ml Vial IV-PUSH Q4H PRN Pain Scale 7 - 10 Nifedipine 60 mg 01/19/22 11:30 01/21/22 08:41 Nifedipine Er.24hr 60 Mg Tab.Er.24 PO 01/19/23 11:29 60 mg DAILY [facility] Administration Nitroglycerin 0.4 mg 01/20/22 13:52 Nitroglycerin [...] YVROSE Administration Ticagrelor 90 mg 01/20/22 21:00 01/21/22 08:41 Ticagrelor 90 Mg Tablet PO 01/20/23 [...] signed by Wiley Beal MD> 01/21/22 1342 [facility] Work Phone: Reason for referral (narrative)* Consultation (Routine) - Authorized Specialty Diagnoses / Procedures Referred By Contac t Referred To Contact Cardiology Diagnoses 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 * Patient was recently hospitalized at [facility]. The patient was seen in Cardiology consult with subsequent cardiovascular management by [facility]. Hospitalization records have been reviewed. * Reason for Cardiology Consultation: ACS * Consulting Certified Juvenile Probation Officer: Dr. Dougherty * Cardiovascular testing: Echo, cath with subsequent PCI * Changes to cardiovascular medical regimen at time of discharge: ASA, brilinta, lipitor lopressor, aldactone * Discharge disposition: Home * Reports admit at [place] d/t 'kidney pain and being dehydrated'. Spironolactone [...] tomorrow * 3. Begin cardiac rehab at [place] * 4. Lipid profile in 2 months (new statin initiation) * 5. Keep scheduled f/u in 6 weeks to reassess * 6. Obtain CT from [place] to verify surveillance testing. * 7. RN [...] FOR VISIT (unrecogniz ed section and content) Reason Comments Follow-up 6m Care Teams (unrecognized sec tion and content) [...] Active Moshe Hernandez MD Other Provider Active Karli Dougherty MD Other Provider Active Anatoly Massey [...] MD Admit Provider, Attending Provi mireille Active Association Executive Relationship Specialty Start Date End Date Priyanka Puentes MD [address] [place] [address] (Fax) PCP - ACO Reach 11/03/22 Priyanka Puentes MD [address] [place] [address] PCP - General Family Medicine 12/21/22 Karli Dougherty MD [address] [address] Referring Physician Cardiology 07/20/23 Association Executive Relationship Specialty Start Date End Date Priyanka Puentes MD [address] [place] [address] PCP - General 06/12/99 INFORMATION SOURCE (unrecogn ized section and content) DATE CREATED AUTHOR 10/18/2022 [facility] DATE CREATED AUTHOR AUTHOR'S ORGANIZ ATION 02/18/2023 [employer] DATE CREATED AUTHOR AUTHOR'S ORGANIZ ATION 03/15/2023 [facility] DATE CREATED AUTHOR AUTHOR'S ORGANIZ ATION 03/18/2023 [facility] DATE CREATED AUTHOR AUTHOR'S ORGANIZ ATION 09/01/2023 [facility] DATE CREATED AUTHOR AUTHOR'S ORGANIZ ATION 12/14/2023 [facility] EPIC Goals (unrecognized section and [...] BE BASED ON THE PRIMARY CLINICAL RECORDS. [employer] provides no warranty or guarantee of the accuracy or completeness of information in this document.
[2024-01-18 12:32] LABS: Estimated Average Glucose 117 mg/dL; Glycohemoglobin A1C 5.7 % (4.5-6.2)
== END 2024-01-18 11:04 | disposition home or self-care (01) ==
LOC: LAB 11:04
PROVIDERS: PCP Family Medicine; Visit Provider Family Medicine
DX: R73.03 Prediabetes (principal)
CPT/HCPCS: 36415; 83036

== ENCOUNTER 2024-01-23 12:04 | Outpatient (OUT) | payer MEDICARE, OTHER, SELFPAY ==
--- OUTSIDE RECORDS SUMMARY | 2024-01-23 12:13 | XMS_ITS | CCD ---
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 Name Role Phone Eva Panda Unavailable MD Priyanka Puentes Primary Care Provider [phone] MD Justa Westfall Admit Provider MD Wiley Beal Attending Provider DEONTE Monzon Other Provider Unavailable DO Isaiah Cordova Other Provider MD Vik Segura Other Provider [phone] MD Moshe Hernandez Other Provider MD Karli Dougherty Other Provider [phone] MD Anatoly Massey Other Provider FRANCOIS Mercado Other Provider MD Almita Asif Other Provider MD Stuart Levineammprachi Thompson Other Provider MD Lydia Kern Other Provider MD Diony Hooks Attending Provider [phone] Priyanka Puentes Unavailable Unavailable Unavailable DR [...] HEMEYER ., DR MATHEW Primary Care Unavailable PARNAY, KHANH Consulting Unavailable PRANAY, KHANH Admitting Unavailable [...] Attending Provider MD Chuck Chacon Attending Provider [phone] SHANTEL Dhillon Emergency Provider MD Sima Hdz Admit Provider MD Sima Hdz Attending Provider [phone] [facility] Rufus Bravo Attending Provider [phone] Dhaval, Dr. Priyanka Ramey Primary Care Unava [...] Unavailable Priyanka Puentes MD Primary Care Provider Karli Dougherty MD Unavailable [phone] Priyanka Puentes MD Primary Care Provider KARLI DOUGHERTY Attending PRIYANKA Taylor Primary Care Unavailab PRIYANKA Toribio Attending PRIYANKA Taylor Attending PRIYANKA Taylor Attending PRIYANKA Taylor Attending PRIYANKA Taylor Attending Unavailable Allergies Allergy Classification Reported Allergen(s) Allergy Type Date of Onset Reaction(s) Facility (1 source) diphenhydrAMINE Drug Allergy anaphylaxis [facility] Other (6 sources) Ticagrelor; Translations: [Brilinta TABS] Drug Allergy 03-17-20 23 [facility] (4 sources) Codeine; Translations: [CODEINE] Drug Allergy 01-18-20 23 [facility] (1 source) Penicillin Drug Allergy 01-19-20 22 [facility] (2 sources) Ticagrelor; Translations: [TICAGRELOR] Drug Allergy 01-25-20 22 [facility] (1 source) Antihistamines - Ethanolamine Drug allergy (disorder) 01-27-20 22 [facility] (2 sources) Antihistamines Allergy to substance 03-12-20 [facility] (1 source) Calcium Citrate Drug Allergy 01-18-20 23 [facility] (1 source) Cephalexin Drug Allergy 01-18-20 23 Hives [facility] (1 source) Ciprofloxacin Drug Allergy 01-18-20 23 Hives [facility] (3 sources) Clindamycin; Translations: [CLINDAMYCIN] Drug Allergy 01-18-20 Diarrhea [facility] (2 sources) Codeine Drug Allergy 01-18-20 Unknown [facility] (1 source) diphenhydrAMINE Drug Allergy 01-18-20 [facility] (2 sources) Minocycline; Translations: [MINOCYCLINE] Drug Allergy 01-18-20 Diarrhea [facility] (1 source) Erythromycin Base Drug Allergy 01-18-20 Hives [facility] (1 source) Minocycline Drug Allergy 01-18-[address] [facility] Work Phone: Medications Current Medications Medication [...] 12:00am Start: 02-15-2022 take 4 tablets by [facility] once daily Clopidogrel Bisulfate 75 MG Oral [...] (1 source) Start: End: Nebulizers (Compressor Nebulizer) [facility] Indications: Asthma due to [...] mouth once daily. 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) 60 mg tablet Take 1 tablet [...] Coronary arteriosclerosis; Translations: [Atherosclerotic heart disease of [place] coronary artery without angina pectoris] Onset: 06-14-2022 [...] 01-18-2022 Episodic Other aftercare (1 source) Other prison (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; Translations: [OTH CREDIT CONTROL MANAGER CURRENT DRUG THERAPY] Onset: 02-02-2022 Episodic Other aftercare (1 source) care home (current) use of oral hypoglycemic drugs; Translations: [CREDIT CONTROL MANAGER USE ORAL HYPOGLYCEMIC DX] Onset: 02-02-2022 Episodic Other aftercare (1 source) 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; Translations: [CREDIT CONTROL MANAGER CURRENT USE OF ASPIRIN] Onset: 01-20-2022 Episodic Other aftercare (1 source) Polypharmacy ; Translations: [Other prison (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] Onset: 08-07-2020 01-19-2023 Episodic [...] Test Name Value Interpretation Reference Range Facility [facility] HEMOGLOBIN A1Con 024 Glucose [Mass/Vol] 111 mg/dL [facility] HbA1c (Bld) [Mass fraction] 5.5 % 4.5 - 6.2 % [facility] Comment on above: ADA RECOMMENDED LIMI T 4.0 - 6.0 ADA THERAPEUTIC TARGET < 7.0 ACTION SUGGESTED > 7.0 [facility] Basic Metabolic Panelon Anion gap [Moles/Vol] 9.8 mmol/L Normal 6.0-15.[address] [facility] Comment on above: Performed By: #### B INVENTORY CONTROL SPECIALIST, BMP, PT, PTT, HS TROP, CBC, TSH3, CK #### [facility] [address] Calcium [Mass/Vol] 8.3 mg/dL Low 8.6-10.[address] [facility] Comment on above: Performed By: #### B INVENTORY CONTROL SPECIALIST, BMP, PT, PTT, HS TROP, CBC, TSH3, CK #### [facility] [address] Chloride [Moles/Vol] 101 mmol/L Normal 98-107 [facility] Comment on above: Performed By: #### B INVENTORY CONTROL SPECIALIST, BMP, PT, PTT, HS TROP, CBC, TSH3, CK #### [facility] [address] CO2 [Moles/Vol] 23.6 mmol/L Normal 21.0-31.0 [facility] Comment on above: Performed By: #### B INVENTORY CONTROL SPECIALIST, BMP, PT, PTT, HS TROP, CBC, TSH3, CK #### [address] Creatinine [Mass/Vol] 0.70 mg/dL Normal 0.60-1.[address] [facility] Comment on above: Performed By: #### B INVENTORY CONTROL SPECIALIST, BMP, PT, PTT, HS TROP, CBC, TSH3, CK #### [address] Creatinine Clr Calc Pharmacy 48.88 [facility] Comment on above: Performed By: #### B INVENTORY CONTROL SPECIALIST, BMP, PT, PTT, HS TROP, CBC, TSH3, CK #### [address] GFR/1.73 sq M.predicted MDRD (S/P/Bld) [Vol rate/Area] mL/min/{1.73_m2} [facility] Comment on above: Performed By: #### B INVENTORY CONTROL SPECIALIST, BMP, PT, PTT, HS TROP, CBC, TSH3, CK #### [address] Glucose [Mass/Vol] 84 mg/dL Normal 70-[address] [facility] Comment on above: Result Comment: [place] Glucose Reference Range is dependent on time and content of last meal. Glucose of more than 200 mg/dL in a nonstressed, ambulatory subject supports the diagnosis of Diabetes Mellitus. ADA recommended reference range Performed By: #### B INVENTORY CONTROL SPECIALIST, BMP, PT, PTT, HS TROP, CBC, TSH3, CK #### [facility] [address] Potassium [Moles/Vol] 4.4 mmol/L Normal 3.5-5.[address] [facility] Comment on above: Performed By: #### B INVENTORY CONTROL SPECIALIST, BMP, PT, PTT, HS TROP, CBC, TSH3, CK #### [facility] [address] Sodium [Moles/Vol] 130 mmol/L Low 136-[address] [facility] Comment on above: Performed By: #### B INVENTORY CONTROL SPECIALIST, BMP, PT, PTT, HS TROP, CBC, TSH3, CK #### [facility] [address] Urea nitrogen [Mass/Vol] 8 mg/dL Normal 7-25 [facility] Comment on above: Performed By: #### B INVENTORY CONTROL SPECIALIST, BMP, PT, PTT, HS TROP, CBC, TSH3, CK #### [facility] [address] Calcium [Mass/volume] in Ser um or PlasmaOrdered By: Rufus Ricks on 03-14-2023 Calcium [Mass/Vol] 8.3 mg/dL 8.6-10.[address] [facility] Carbon dioxide, total [Moles /volume] in Serum or PlasmaOrdered By: Rufus Ricks on 03-14-2023 CO2 [Moles/Vol] 23.6 mmol/L 21.0-31.0 [facility] Chloride [Moles/volume] in S yamilex or PlasmaOrdered By: Rufus Ricks on 03-14-2023 Chloride [Moles/Vol] 101 mmol/L 98-107 [facility] Creatinine [Mass/volume] in Serum or PlasmaOrdered By: Rufus Ricks on 03-14-2023 Creatinine [Mass/Vol] 0.70 mg/dL 0.60-1.[address] [facility] Free T4 (Free Thyroxine)on 1 Free T4 [Mass/Vol] 0.72 ng/dL Normal 0.61-1.[address] [facility] Comment on above: Performed By: #### B INVENTORY CONTROL SPECIALIST, BMP, PT, PTT, HS TROP, CBC, TSH3, CK #### [facility] [address] Glucose [Mass/volume] in Ser um or PlasmaOrdered By: Rufus Ricks on 03-14-2023 Glucose [Mass/Vol] 84 mg/dL 70-[address] [facility] Comment on above: ADA recommended refe rence rangeRandom Glucose Reference Range is dependent on time and content of last meal. Glucose of more than 200 mg/dL in a nonstressed, ambulatory subject supports the diagnosis of Diabetes Mellitus. No Panel InformationOrdered By: Rufus [place] on 03-14-2023 Estimated GFR (CKD-EPI) > 60.0 mL/Min [facility] Creatinine Clearance (Chem 48.88 [facility] Potassium [Moles/volume] in Serum or PlasmaOrdered By: [facility] on 03-14-2023 Potassium [Moles/Vol] 4.4 mmol/L 3.5-5.[address] [facility] Serum or plasma anion gap de terminationOrdered By: [facility] on 03-14-2023 Anion gap [Moles/Vol] 9.8 mmol/L 6.0-15.[address] [facility] Sodium [Moles/volume] in Ser um or PlasmaOrdered By: [facility] on 03-14-2023 Sodium [Moles/Vol] 130 mmol/L 136-[address] [facility] Thyroid Stimulating Hormoneo n 03-14-2023 TSH Qn 0.04 m[IU]/L Low 0.45-5.33 [facility] Comment on above: Result Comment: PERF ORMED BY: [facility] [address] [place] [address] PATHOLOGIST LOW RAW SUGAR CUTTER RAQUEL LOPEZ M.D. Performed By: #### B INVENTORY CONTROL SPECIALIST, BMP, PT, PTT, HS TROP, CBC, TSH3, CK #### [facility] [address] [place] [address] [place] Thyrotropin [Units/volume] i n Serum or PlasmaOrdered By: Rufus Ricsk on 03-14-2023 TSH Qn 0.04 m[IU]/L 0.45-5.33 [facility] Thyroxine (T4) free [Mass/vo lume] in Serum or PlasmaOrdered By: Rufus Ricks on 03-14-2023 Free T4 [Mass/Vol] 0.72 ng/dL 0.61-1.[address] [facility] Triiodothyronine (T3) Freeon 03-14-2023 Triiodothyronine (T3) Free 2.85 pg/mL Normal 2.50-3.90 [facility] Comment on above: Result Comment: PERF ORMED BY: [facility] [address] [facility] [place] [address] PATHOLOGIST LOW RAW SUGAR CUTTER RAQUEL LOPEZ M.D. Performed By: #### B INVENTORY CONTROL SPECIALIST, BMP, PT, PTT, HS TROP, CBC, TSH3, CK #### [facility] [address] [place] [address] [place] Triiodothyronine (T3) Free [ Mass/volume] in Serum or PlasmaOrdered By: Rufus Ricks on 03-14-2023 Free T3 [Mass/Vol] 2.85 pg/mL 2.50-3.[address] [facility] Urea nitrogen [Mass/volume] in Serum or PlasmaOrdered By: Rufus Ricks on 03-14-2023 Urea nitrogen [Mass/Vol] 8 mg/dL 01-03 [facility] Basic Metabolic Panelon 10-0 Anion gap [Moles/Vol] 13.4 mmol/L Normal 6.0-15.0 [facility] Comment on above: Performed By: #### B INVENTORY CONTROL SPECIALIST, BMP, PT, PTT, HS TROP, CBC, TSH3, CK #### [facility] [address] [place] [id number] [facility] Calcium [Mass/Vol] 9.1 mg/dL Normal 8.6-10.[address] [facility] Comment on above: Performed By: #### B INVENTORY CONTROL SPECIALIST, BMP, PT, PTT, HS TROP, CBC, TSH3, CK #### [facility] [address] Chloride [Moles/Vol] 93 mmol/L Low 98-107 [facility] Comment on above: Performed By: #### B INVENTORY CONTROL SPECIALIST, BMP, PT, PTT, HS TROP, CBC, TSH3, CK #### [address] CO2 [Moles/Vol] 25.0 mmol/L Normal 21.0-31.0 [facility] Comment on above: Performed By: #### B INVENTORY CONTROL SPECIALIST, BMP, PT, PTT, HS TROP, CBC, TSH3, CK #### [address] Creatinine [Mass/Vol] 0.88 mg/dL Normal 0.60-1.[address] [facility] Comment on above: Performed By: #### B INVENTORY CONTROL SPECIALIST, BMP, PT, PTT, HS TROP, CBC, TSH3, CK #### [address] Creatinine Clr Calc Pharmacy 44.44 [facility] Comment on above: Result Comment: PERF ORMED BY: [place] [address] PATHOLOGIST LOW RAW SUGAR CUTTER RAQUEL LOPEZ M.D. Performed By: #### B INVENTORY CONTROL SPECIALIST, BMP, PT, PTT, HS TROP, CBC, TSH3, CK #### [address] GFR/1.73 sq M.predicted MDRD (S/P/Bld) [Vol rate/Area] mL/min/{1.73_m2} [facility] Comment on above: Performed By: #### B INVENTORY CONTROL SPECIALIST, BMP, PT, PTT, HS TROP, CBC, TSH3, CK #### [address] Glucose [Mass/Vol] 97 mg/dL Normal 70-[address] [facility] Comment on above: Result Comment: [facility] Glucose Reference Range is dependent on time and content of last meal. Glucose of more than 200 mg/dL in a nonstressed, ambulatory subject supports the diagnosis of Diabetes Mellitus. ADA recommended reference range Performed By: #### B INVENTORY CONTROL SPECIALIST, BMP, PT, PTT, HS TROP, CBC, TSH3, CK #### [facility] [address] Potassium [Moles/Vol] 4.4 mmol/L Normal 3.5-5.[address] [facility] Comment on above: Performed By: #### B INVENTORY CONTROL SPECIALIST, BMP, PT, PTT, HS TROP, CBC, TSH3, CK #### [facility] [address] Sodium [Moles/Vol] 127 mmol/L Low 136-[address] [facility] Comment on above: Performed By: #### B INVENTORY CONTROL SPECIALIST, BMP, PT, PTT, HS TROP, CBC, TSH3, CK #### [facility] [address] Urea nitrogen [Mass/Vol] 9 mg/dL Normal 7-25 [facility] Comment on above: Performed By: #### B INVENTORY CONTROL SPECIALIST, BMP, PT, PTT, HS TROP, CBC, TSH3, CK #### [facility] [address] Activated partial thrombopla stin time (aPTT) in platelet poor plasma by coagulation aOrdered By: Hunter Dhillon on 03-12-2023 aPTT Coag (PPP) [Time] 26.1 s 25.1-36.5 [facility] Comment on above: A hematocrit value g reater than 55% may lead to inaccurate results in coagulation testing. Patients having hematocrit values >55% require a special collection tube for coagulation studies. Please contact the laboratory at [phone] for redraw instructions. Alanine aminotransferase [En zymatic activity/volume] in Serum or PlasmaOrdered By: Hunter Dhillon on 03-12-2023 ALT [Catalytic activity/Vol] 14 U/L 7- [facility] Albumin [Mass/volume] in Ser um or Plasma by Bromocresol green (BCG) dye binding methoOrdered By: Hunter Dhillon on 03-12-2023 Albumin BCG dye [Mass/Vol] 4.1 g/dL 3.5-5.7 [facility] Alkaline phosphatase [Enzyma tic activity/volume] in Serum or PlasmaOrdered By: Hunter Dhillon on 03-12-2023 ALP [Catalytic activity/Vol] 40 U/L 34-104 [facility] Aspartate aminotransferase [ Enzymatic activity/volume] in Serum or PlasmaOrdered By: Hunter Dhillon on 03-12-2023 AST [Catalytic activity/Vol] 15 U/L 13-39 [facility] Automated erythrocytes count in urine sediment (number/area)Ordered By: Hunter Dhillon on 03-12-2023 RBC Auto (Urine sed) [#/Area] None seen [HPF] 0-4 [facility] Automated leukocytes count i n urine sediment (number/area)Ordered By: Hunter Dhillon on 03-12-2023 WBC Auto (Urine sed) [#/Area] 5-9 [HPF] 0-4 [facility] B-Type Natriuretic Peptideon 03-12-2023 Natriuretic peptide B (Bld) [Mass/Vol] 83.0 pg/mL Normal 5-100 [facility] Comment on above: Result Comment: PERF ORMED BY: [place] [address] PATHOLOGIST LOW RAW SUGAR CUTTER RAQUEL LOPEZ M.D. Performed By: #### B INVENTORY CONTROL SPECIALIST, BMP, PT, PTT, HS TROP, CBC, TSH3, CK #### [facility] [address] Basic Metabolic Panelon 10-0 Anion gap [Moles/Vol] 13.3 mmol/L Normal 6.0-15.0 [facility] Comment on above: Performed By: #### B INVENTORY CONTROL SPECIALIST, BMP, PT, PTT, HS TROP, CBC, TSH3, CK #### [facility] [address] Calcium [Mass/Vol] 9.2 mg/dL Normal 8.6-10.[address] [facility] Comment on above: Performed By: #### B INVENTORY CONTROL SPECIALIST, BMP, PT, PTT, HS TROP, CBC, TSH3, CK #### [facility] [address] Chloride [Moles/Vol] 98 mmol/L Normal 98-107 [facility] Comment on above: Performed By: #### B INVENTORY CONTROL SPECIALIST, BMP, PT, PTT, HS TROP, CBC, TSH3, CK #### [facility] [address] CO2 [Moles/Vol] 21.2 mmol/L Normal 21.0-31.0 [facility] Comment on above: Performed By: #### B INVENTORY CONTROL SPECIALIST, BMP, PT, PTT, HS TROP, CBC, TSH3, CK #### [facility] [address] Creatinine [Mass/Vol] 0.92 mg/dL Normal 0.60-1.[address] [facility] Comment on above: Performed By: #### B INVENTORY CONTROL SPECIALIST, BMP, PT, PTT, HS TROP, CBC, TSH3, CK #### [facility] [address] Creatinine Clr Calc Pharmacy 41.99 [facility] Comment on above: Performed By: #### B INVENTORY CONTROL SPECIALIST, BMP, PT, PTT, HS TROP, CBC, TSH3, CK #### [facility] [address] GFR/1.73 sq M.predicted MDRD (S/P/Bld) [Vol rate/Area] mL/min/{1.73_m2} [facility] Comment on above: Performed By: #### B INVENTORY CONTROL SPECIALIST, BMP, PT, PTT, HS TROP, CBC, TSH3, CK #### [facility] [address] Glucose [Mass/Vol] 87 mg/dL Normal 70-[address] [facility] Comment on above: Result Comment: [place] Glucose Reference Range is dependent on time and content of last meal. Glucose of more than 200 mg/dL in a nonstressed, ambulatory subject supports the diagnosis of Diabetes Mellitus. ADA recommended reference range Performed By: #### B INVENTORY CONTROL SPECIALIST, BMP, PT, PTT, HS TROP, CBC, TSH3, CK #### [facility] [address] Potassium [Moles/Vol] 4.5 mmol/L Normal 3.5-5.[address] [facility] Comment on above: Performed By: #### B INVENTORY CONTROL SPECIALIST, BMP, PT, PTT, HS TROP, CBC, TSH3, CK #### [facility] [address] Sodium [Moles/Vol] 128 mmol/L Low 136-[address] [facility] Comment on above: Performed By: #### B INVENTORY CONTROL SPECIALIST, BMP, PT, PTT, HS TROP, CBC, TSH3, CK #### [facility] [address] Urea nitrogen [Mass/Vol] 11 mg/dL Normal 7-25 [facility] Comment on above: Performed By: #### B INVENTORY CONTROL SPECIALIST, BMP, PT, PTT, HS TROP, CBC, TSH3, CK #### [facility] [address] Basophils Auto (Bld) [#/Vol] Ordered By: Hunter Dhillon on 03-12-2023 Basophils (Bld) [#/Vol] 0.0 10*3/uL 0.0-0.2 [facility] Basophils/100 WBC Auto (Bld) Ordered By: Hunter Dhillon on 03-12-2023 Basophils/100 WBC (Bld) 0.4 % . [facility] Bilirubin Auto test strip Ql (U)Ordered By: Hunter Dhillon on 03-12-2023 Bilirubin Ql (U) Negative Negative [facility] Bilirubin.direct [Mass/volum e] in Serum or PlasmaOrdered By: Hunter Dhillon on 03-12-2023 Bilirubin.direct [Mass/Vol] 0.10 mg/dL 0.03-0.18 [facility] Bilirubin.total [Mass/volume ] in Serum or PlasmaOrdered By: Hunter Dhillon on 03-12-2023 Bilirubin [Mass/Vol] 0.4 mg/dL 0.3-1.0 [facility] Calcium [Mass/volume] in Ser um or PlasmaOrdered By: Hunter Dhillon on 10-01-2023 Calcium [Mass/Vol] 9.2 mg/dL 8.6-10.[address] [facility] Carbon dioxide, total [Moles /volume] in Serum or PlasmaOrdered By: Hunter Dhillon on 03-12-2023 CO2 [Moles/Vol] 21.2 mmol/L 21.0-31.0 [facility] Chloride [Moles/volume] in S yamilex or PlasmaOrdered By: Hunter Dhillon on 03-12-2023 Chloride [Moles/Vol] 98 mmol/L 98-107 [facility] Complete Blood Count Auto Di ffon 03-12-2023 Basophils (Bld) [#/Vol] 0.0 10*3/uL Normal 0.0-0.2 [facility] Comment on above: Result Comment: PERF ORMED BY: [place] [address] PATHOLOGIST LOW RAW SUGAR CUTTER RAQUEL LOPEZ M.D. Performed By: #### B INVENTORY CONTROL SPECIALIST, BMP, PT, PTT, HS TROP, CBC, TSH3, CK #### [address] Basophils/100 WBC (Bld) 0.4 % Normal . [facility] Comment on above: Performed By: #### B INVENTORY CONTROL SPECIALIST, BMP, PT, PTT, HS TROP, CBC, TSH3, CK #### [address] Eosinophils (Bld) [#/Vol] 0.2 10*3/uL Normal 0.0-0.45 [facility] Comment on above: Performed By: #### B INVENTORY CONTROL SPECIALIST, BMP, PT, PTT, HS TROP, CBC, TSH3, CK #### [address] Eosinophils/100 WBC (Bld) 2.0 % Normal . [facility] Comment on above: Performed By: #### B INVENTORY CONTROL SPECIALIST, BMP, PT, PTT, HS TROP, CBC, TSH3, CK #### [address] Erythrocyte distribution width (RBC) [Ratio] 12.6 % Normal 11.9-15.3 [facility] Comment on above: Performed By: #### B INVENTORY CONTROL SPECIALIST, BMP, PT, PTT, HS TROP, CBC, TSH3, CK #### [address] Hematocrit (Bld) [Volume fraction] 35.5 % Normal 34.0-46.4 [facility] Comment on above: Performed By: #### B INVENTORY CONTROL SPECIALIST, BMP, PT, PTT, HS TROP, CBC, TSH3, CK #### [address] Hemoglobin (Bld) [Mass/Vol] 12.4 g/dL Normal 11.8-15.4 [facility] Comment on above: Performed By: #### B INVENTORY CONTROL SPECIALIST, BMP, PT, PTT, HS TROP, CBC, TSH3, CK #### [address] Lymphocytes (Bld) [#/Vol] 1.2 10*3/uL Normal 1.00-4.8 [facility] Comment on above: Performed By: #### B INVENTORY CONTROL SPECIALIST, BMP, PT, PTT, HS TROP, CBC, TSH3, CK #### [address] Lymphocytes/100 WBC (Bld) 13.2 % Normal . [facility] Comment on above: Performed By: #### B INVENTORY CONTROL SPECIALIST, BMP, PT, PTT, HS TROP, CBC, TSH3, CK #### [address] MCH (RBC) [Entitic mass] 31.9 pg Normal 24.7-34.3 [facility] Comment on above: Performed By: #### B INVENTORY CONTROL SPECIALIST, BMP, PT, PTT, HS TROP, CBC, TSH3, CK #### [address] MCV (RBC) [Entitic vol] 91.8 fL Normal 80-100 [facility] Comment on above: Performed By: #### B INVENTORY CONTROL SPECIALIST, BMP, PT, PTT, HS TROP, CBC, TSH3, CK #### [address] [address] [place] Mean Corpuscular HGB Conc 34.7 g/dL Normal 32.0-35.0 [facility] Comment on above: Performed By: #### B INVENTORY CONTROL SPECIALIST, BMP, PT, PTT, HS TROP, CBC, TSH3, CK #### [facility] [address] Monocytes (Bld) [#/Vol] 0.5 10*3/uL Normal 0.0-0.8 [facility] Comment on above: Performed By: #### B INVENTORY CONTROL SPECIALIST, BMP, PT, PTT, HS TROP, CBC, TSH3, CK #### [address] Monocytes/100 WBC (Bld) 17.50 % Normal 0.00-20.00 [facility] Comment on above: Performed By: #### B INVENTORY CONTROL SPECIALIST, BMP, PT, PTT, HS TROP, CBC, TSH3, CK #### [address] Monocytes/100 WBC (Bld) 5.1 % Normal . [facility] Comment on above: Performed By: #### B INVENTORY CONTROL SPECIALIST, BMP, PT, PTT, HS TROP, CBC, TSH3, CK #### [facility] [address] [place] [address] Neutrophils (Bld) [#/Vol] 7.0 10*3/uL Normal 1.8-7.7 [facility] Comment on above: Performed By: #### B INVENTORY CONTROL SPECIALIST, BMP, PT, PTT, HS TROP, CBC, TSH3, CK #### [address] Neutrophils/100 WBC (Bld) 79.3 % Normal . [facility] Comment on above: Performed By: #### B INVENTORY CONTROL SPECIALIST, BMP, PT, PTT, HS TROP, CBC, TSH3, CK #### [address] NRBC% 0.0 /100{WBC} Normal 0-0.5 [facility] Comment on above: Performed By: #### B INVENTORY CONTROL SPECIALIST, BMP, PT, PTT, HS TROP, CBC, TSH3, CK #### [facility] [address] Platelet mean volume (Bld) [Entitic vol] 7.2 fL Normal 6.3-10.7 [facility] Comment on above: Performed By: #### B INVENTORY CONTROL SPECIALIST, BMP, PT, PTT, HS TROP, CBC, TSH3, CK #### [facility] [address] Platelets (Bld) [#/Vol] 237 10*3/uL Normal 150-450 [facility] Comment on above: Performed By: #### B INVENTORY CONTROL SPECIALIST, BMP, PT, PTT, HS TROP, CBC, TSH3, CK #### [address] RBC (Bld) [#/Vol] 3.87 10*6/uL Normal 3.60-5.00 [facility] Comment on above: Performed By: #### B INVENTORY CONTROL SPECIALIST, BMP, PT, PTT, HS TROP, CBC, TSH3, CK #### [address] WBC (Bld) [#/Vol] 8.9 10*3/uL Normal 3.8-11.[address] [facility] Comment on above: Performed By: #### B INVENTORY CONTROL SPECIALIST, BMP, PT, PTT, HS TROP, CBC, TSH3, CK #### [address] Creatine Kinaseon 03-12-2023 CK [Catalytic activity/Vol] 20 U/L Low [address] [facility] Comment on above: Performed By: #### B INVENTORY CONTROL SPECIALIST, BMP, PT, PTT, HS TROP, CBC, TSH3, CK #### [address] Creatine kinase [Enzymatic a ctivity/volume] in Serum or PlasmaOrdered By: Hunter Dhillon on 03-12-2023 CK [Catalytic activity/Vol] 20 U/L 30-223 [facility] Creatinine [Mass/volume] in Serum or PlasmaOrdered By: Hunter Dhillon on 03-12-2023 Creatinine [Mass/Vol] 0.92 mg/dL 0.60-1.[address] [facility] Dipstick and Microscopicon 1 Appearance (U) Slightly Cloudy Critically abnormal Clear [facility] Comment on above: Order Comment: Name Collection Type:: Clean-Voided Midstream Performed By: #### A DDONUAPLUS #### [facility] [address] [place] [address] [place] Bacteria,Urine 1+ High None Seen [facility] Comment on above: Order Comment: Name Collection Type:: Clean-Voided Midstream Result Comment: PERF ORMED BY: [place] [address] PATHOLOGIST LOW RAW SUGAR CUTTER RAQUEL LOPEZ M.D. Performed By: #### A DDONUAPLUS #### [facility] [address] [place] [address] [place] Bilirubin,Urine Negative Normal Negative [facility] Comment on above: Order Comment: Name Collection Type:: Clean-Voided Midstream Performed By: #### A DDONUAPLUS #### [facility] [address] [place] [address] [place] Color (U) Yellow Normal Yellow [facility] Comment on above: Order Comment: Name Collection Type:: Clean-Voided Midstream Performed By: #### A DDONUAPLUS #### [facility] [address] [place] [address] [place] Glucose Ql (U) Normal Normal Normal [facility] Comment on above: Order Comment: Name Collection Type:: Clean-Voided Midstream Performed By: #### A DDONUAPLUS #### [facility] [address] [place] [address] [place] Ketones Ql (U) Negative Normal Negative [facility] Comment on above: Order Comment: Name Collection Type:: Clean-Voided Midstream Performed By: #### A DDONUAPLUS #### [facility] [address] [place] [address] [place] Leukocyte esterase Test strip Ql (U) 3+ High Negative [facility] Comment on above: Order Comment: Name Collection Type:: Clean-Voided Midstream Performed By: #### A DDONUAPLUS #### [facility] [address] [place] [address] [place] Nitrite,Urine Negative Normal Negative [facility] Comment on above: Order Comment: Name Collection Type:: Clean-Voided Midstream Performed By: #### A DDONUAPLUS #### [facility] [address] [place] [address] [place] Occult Blood,Urine Negative Normal Negative [facility] Comment on above: Order Comment: Name Collection Type:: Clean-Voided Midstream Result Comment: PERF ORMED BY: [place] [address] PATHOLOGIST LOW RAW SUGAR CUTTER RAQUEL LOPEZ M.D. Performed By: #### A DDONUAPLUS #### [place] [address] [place] pH (U) 7.5 [pH] Normal 5.0-9.0 [facility] Comment on above: Order Comment: Name Collection Type:: Clean-Voided Midstream Performed By: #### A DDONUAPLUS #### [facility] [address] [place] [address] [place] Protein,Urine Negative Normal Negative [facility] Comment on above: Order Comment: Name Collection Type:: Clean-Voided Midstream Performed By: #### A DDONUAPLUS #### [facility] [address] [place] [address] [place] RBC,Urine None Seen Normal 0-4 [facility] Comment on above: Order Comment: Name Collection Type:: Clean-Voided Midstream Performed By: #### A DDONUAPLUS #### [facility] [address] [place] [address] [place] Specificy [place],Urine 1.010 Normal 1.001-1.03 0 [facility] Comment on above: Order Comment: Name Collection Type:: Clean-Voided Midstream Performed By: #### A DDONUAPLUS #### [facility] [address] [place] [address] [place] Squamous Epithelial Cell,Urine 5-9 High 0-2 [facility] Comment on above: Order Comment: Name Collection Type:: Clean-Voided Midstream Performed By: #### A DDONUAPLUS #### [facility] [address] [place] [address] Urobilinogen,Urine Normal Normal Normal [facility] Comment on above: Order Comment: Name Collection Type:: Clean-Voided Midstream Performed By: #### A DDONUAPLUS #### [facility] [address] [place] [address] WBC,Urine 5-9 High 0-4 [facility] Comment on above: Order Comment: Name Collection Type:: Clean-Voided Midstream Performed By: #### A DDONUAPLUS #### [address] ECG 12 lead ECGon 03-12-2023 ECG 12 lead ECG [facility] [place] [address] [place] [address] Electrocardiograph Report Signed Patient: Steven Harding MR#: [id number] 1 : 1940 Acct:[id number] Age/Sex: 83 / F ADM Date: 03/12/23 Loc: Room: [address] [place] [id number] Type: ADM INOo Attending Dr: Sima Hdz [...] longer present Confirmed by Zane Michael DO ([id number]) on 03/13/2023 8:21:27 AM Referred By: Electronically Signed By:Zane Michael DO Transcribed By: MUS Signed By Zane Michael DO 3 0821 Normal [facility] Eosinophils Auto (Bld) [#/Vo l]Ordered By: Hunter Dhillon on 03-12-2023 Eosinophils (Bld) [#/Vol] 0.2 10*3/uL 0.0-0.45 [facility] Eosinophils/100 WBC Auto (Bl d)Ordered By: Hunter Dhillon on 03-12-2023 Eosinophils/100 WBC (Bld) 2.0 % . [facility] Erythrocyte distribution wid th Auto (RBC) [Ratio]Ordered By: Hunter Dhillon on 03-12-2023 Erythrocyte distribution width (RBC) [Ratio] 12.6 % 11.9-15.3 [facility] Globulin Calc (S) [Mass/Vol] Ordered By: Hunter Dhillon on 03-12-2023 Globulin (S) [Mass/Vol] 2.2 g/dL [facility] Glucose [Mass/volume] in Ser um or PlasmaOrdered By: Hunter Dhillon on 03-12-2023 Glucose [Mass/Vol] 87 mg/dL 70-[address] [facility] Comment on above: ADA recommended refe rence rangeRandom Glucose Reference Range is dependent on time and content of last meal. Glucose of more than 200 mg/dL in a nonstressed, ambulatory subject supports the diagnosis of Diabetes Mellitus. Hematocrit Auto (Bld) [Volum e fraction]Ordered By: Hunter Dhillon on 03-12-2023 Hematocrit (Bld) [Volume fraction] 35.5 % 34.0-46.4 [facility] Hemoglobin [Mass/volume] in BloodOrdered By: Hunter Dhillon on 03-12-2023 Hemoglobin (Bld) [Mass/Vol] 12.4 g/dL 11.8-15.4 [facility] Hepatic Panelon 03-12-2023 Albumin [Mass/Vol] 4.1 g/dL Normal 3.5-5.[address] [facility] Comment on above: Performed By: #### B INVENTORY CONTROL SPECIALIST, BMP, PT, PTT, HS TROP, CBC, TSH3, CK #### [facility] [address] Albumin/Globulin [Mass ratio] 1.9 {ratio} Normal [facility] Comment on above: Performed By: #### B INVENTORY CONTROL SPECIALIST, BMP, PT, PTT, HS TROP, CBC, TSH3, CK #### [facility] [address] ALP [Catalytic activity/Vol] 40 U/L Normal 34-104 [facility] Comment on above: Performed By: #### B INVENTORY CONTROL SPECIALIST, BMP, PT, PTT, HS TROP, CBC, TSH3, CK #### [facility] [address] ALT [Catalytic activity/Vol] 14 U/L Normal 7-52 [facility] Comment on above: Performed By: #### B INVENTORY CONTROL SPECIALIST, BMP, PT, PTT, HS TROP, CBC, TSH3, CK #### [address] AST [Catalytic activity/Vol] 15 U/L Normal 13-39 [facility] Comment on above: Performed By: #### B INVENTORY CONTROL SPECIALIST, BMP, PT, PTT, HS TROP, CBC, TSH3, CK #### [address] Bilirubin [Mass/Vol] 0.4 mg/dL Normal 0.3-1.0 [facility] Comment on above: Performed By: #### B INVENTORY CONTROL SPECIALIST, BMP, PT, PTT, HS TROP, CBC, TSH3, CK #### [address] Bilirubin,Indirect 0.3 mg/dL Normal [facility] Comment on above: Performed By: #### B INVENTORY CONTROL SPECIALIST, BMP, PT, PTT, HS TROP, CBC, TSH3, CK #### [address] Bilirubin.indirect [Mass/Vol] 0.10 mg/dL Normal 0.03-0.18 [facility] Comment on above: Performed By: #### B INVENTORY CONTROL SPECIALIST, BMP, PT, PTT, HS TROP, CBC, TSH3, CK #### [address] Globulin (S) [Mass/Vol] 2.2 g/dL Normal [facility] Comment on above: Performed By: #### B INVENTORY CONTROL SPECIALIST, BMP, PT, PTT, HS TROP, CBC, TSH3, CK #### [facility] [address] [place] [address] [place] Protein [Mass/Vol] 6.3 g/dL Low 6.4-8.[address] [facility] Comment on above: Performed By: #### B INVENTORY CONTROL SPECIALIST, BMP, PT, PTT, HS TROP, CBC, TSH3, CK #### [facility] [address] [place] [id number] [place] INR in Platelet poor plasma by Coagulation assayOrdered By: Hunter Dhillon on 03-12-2023 INR Coag (PPP) [Relative time] 0.9 {INR} [facility] Comment on above: INR Therapeutic Rang [...] on 03-12-2023 Ketones (U) [Mass/Vol] Negative Negative [facility] Leukocytes [#/volume] correc jazmyne for nucleated erythrocytes in Blood by Automated counOrdered By: Hunter Dhillon on 03-12-2023 WBC corrected for nucl RBC Auto (Bld) [#/Vol] 8.9 10*3/uL 3.8-11.6 [facility] Lymphocytes Auto (Bld) [#/Vo l]Ordered By: Hunter Dhillon on 03-12-2023 Lymphocytes (Bld) [#/Vol] 1.2 10*3/uL 1.00-4.8 [facility] Lymphocytes/100 WBC Auto (Bl d)Ordered By: Hunter Dhillon on 03-12-2023 Lymphocytes/100 WBC (Bld) 13.2 % . [facility] MCH Auto (RBC) [Entitic mass ]Ordered By: Hunter Dhillon on 03-12-2023 MCH (RBC) [Entitic mass] 31.9 pg 24.7-34.3 [facility] MCHC Auto (RBC) [Mass/Vol]Or dered By: Hunter Dhillon on 03-12-2023 MCHC (RBC) [Mass/Vol] 34.7 g/dL 32.0-35.[address] [facility] MCV Auto (RBC) [Entitic vol] Ordered By: Hunter Dhillon on 03-12-2023 MCV (RBC) [Entitic vol] 91.8 fL 80-100 [facility] Monocyte distribution width [Entitic volume] in Blood by AutomatedOrdered By: Hunter Dhillon on 03-12-2023 Monocyte distribution width Auto (Bld) [Entitic vol] 17.50 % 0.00-20.00 [facility] Monocytes Auto (Bld) [#/Vol] Ordered By: Hunter Dhillon on 03-12-2023 Monocytes (Bld) [#/Vol] 0.5 10*3/uL 0.0-0.8 [facility] Monocytes/100 WBC Auto (Bld) Ordered By: Hunter Dhillon on 03-12-2023 Monocytes/100 WBC (Bld) 5.1 % . [facility] Natriuretic peptide B [Mass/ Vol]Ordered By: Hunter Dhillon on 03-12-2023 Natriuretic peptide B (Bld) [Mass/Vol] 83.0 pg/mL 5-100 [facility] Neutrophils Auto (Bld) [#/Vo l]Ordered By: Hunter Dhillon on 03-12-2023 Neutrophils (Bld) [#/Vol] 7.0 10*3/uL 1.8-7.7 [facility] Neutrophils/100 WBC Auto (Bl d)Ordered By: Hunter Dhillon on 03-12-2023 Neutrophils/100 WBC (Bld) 79.3 % . [facility] No Panel InformationOrdered By: Hunter Dhillon on 03-12-2023 Estimated GFR (CKD-EPI) > 60.0 mL/Min [facility] Creatinine Clearance (Chem 41.99 [facility] Nucleated erythrocytes [Pres ence] in Blood by Automated countOrdered By: Hunter Dhillon on 03-12-2023 Nucleated RBC Auto Ql (Bld) 0.0 /100{WBC} 0-0.5 [facility] Partial Thromboplastin Timeo n 03-12-2023 aPTT Coag (Bld) [Time] 26.1 s Normal 25.1-36.5 [facility] Comment on above: Result Comment: A he matocrit value greater than 55% may lead to inaccurate results in coagulation testing. Patients having hematocrit values >55% require a special collection tube for coagulation studies. Please contact the laboratory at [phone] for redraw instructions. PERFORMED BY: [facility] [address] [place] [id number] PATHOLOGIST LOW RAW SUGAR CUTTER RAQUEL LOPEZ M.D. Performed By: #### B INVENTORY CONTROL SPECIALIST, BMP, PT, PTT, HS TROP, CBC, TSH3, CK #### [facility] [address] [place] [id number] [facility] Platelet mean volume Auto (B ld) [Entitic vol]Ordered By: Hunter Dhillon on 03-12-2023 Platelet mean volume (Bld) [Entitic vol] 7.2 fL 6.3-10.7 [facility] Platelets Auto (Bld) [#/Vol] Ordered By: Hunter Dhillon on 03-12-2023 Platelets (Bld) [#/Vol] 237 10*3/uL 150-450 [facility] Potassium [Moles/volume] in Serum or PlasmaOrdered By: Hunter Dhillon on 03-12-2023 Potassium [Moles/Vol] 4.5 mmol/L 3.5-5.[address] [facility] Protein Auto test strip (U) [Mass/Vol]Ordered By: Hunter Dhillon on 03-12-2023 Protein (U) [Mass/Vol] Negative Negative [facility] Protein [Mass/volume] in Ser um or PlasmaOrdered By: Hunter Dhillon on 03-12-2023 Protein [Mass/Vol] 6.3 g/dL 6.4-8.[address] [facility] Prothrombin Time INRon 03-12 INR Coag (PPP) [Relative time] 0.9 {INR} Normal [facility] Comment on above: Result Comment: INR [...] 3 - 4.5 Performed By: #### B INVENTORY CONTROL SPECIALIST, BMP, PT, PTT, HS TROP, CBC, TSH3, CK #### [facility] [address] [place] [address] [facility] PT Coag (PPP) [Time] 11.3 s Normal 9.0-12.9 [facility] Comment on above: Result Comment: A he matocrit value greater than 55% may lead to inaccurate results in coagulation testing. Patients having hematocrit values >55% require a special collection tube for coagulation studies. Please contact the laboratory at [phone] for redraw instructions. Performed By: #### B INVENTORY CONTROL SPECIALIST, BMP, PT, PTT, HS TROP, CBC, TSH3, CK #### [facility] [address] [place] [address] [facility] Prothrombin time (PT)Ordered By: Hunter Dhillon on 03-12-2023 PT Coag (PPP) [Time] 11.3 s 9.0-12.9 [facility] Comment on above: A hematocrit value g reater than 55% may lead to inaccurate results in coagulation testing. Patients having hematocrit values >55% require a special collection tube for coagulation studies. Please contact the laboratory at [phone] for redraw instructions. RBC Auto (Bld) [#/Vol]Ordere d By: Hunter Dhillon on 03-12-2023 RBC (Bld) [#/Vol] 3.87 10*6/uL 3.60-5.00 [facility] Serum or plasma albumin/glob ulin mass ratioOrdered By: Hunter Dhillon on 03-12-2023 Albumin/Globulin [Mass ratio] 1.9 {ratio} [facility] Serum or plasma anion gap de terminationOrdered By: Hunter Dhillon on 03-12-2023 Anion gap [Moles/Vol] 13.3 mmol/L 6.0-15.0 [facility] Serum or plasma non-glucuron idated bilirubin measurement (mass/volume)Ordered By: Hunter Dhillon on 03-12-2023 Bilirubin.indirect [Mass/Vol] 0.3 mg/dL [facility] Sodium [Moles/volume] in Ser um or PlasmaOrdered By: Hunter Dhillon on 03-12-2023 Sodium [Moles/Vol] 128 mmol/L 136-[address] [facility] Squamous epithelial cells de tection in urine sediment by light microscopyOrdered By: Hunter Dhillon on 03-12-2023 Epithelial cells.squamous LM Ql (Urine sed) 5-9 [HPF] 0-2 [facility] Thyroid Stimulating Hormoneo n 03-12-2023 TSH Qn 0.01 m[IU]/L Low 0.45-5.33 [facility] Comment on above: Result Comment: PERF ORMED BY: [place] [address] PATHOLOGIST LOW RAW SUGAR CUTTER RAQUEL LOPEZ M.D. Performed By: #### B INVENTORY CONTROL SPECIALIST, BMP, PT, PTT, HS TROP, CBC, TSH3, CK #### [facility] [address] [place] [address] Thyrotropin [Units/volume] i n Serum or PlasmaOrdered By: Hunter Dhillon on 03-12-2023 TSH Qn 0.01 m[IU]/L 0.45-5.33 [facility] Troponin I High Sensitivityo n 03-12-2023 Troponin I High Sensitivity 5.6 pg/mL Normal 0.0-15.0 [facility] Comment on above: Result Comment: PERF ORMED BY: [place] [address] PATHOLOGIST LOW RAW SUGAR CUTTER RAQUEL LOPEZ M.D. Performed By: #### B INVENTORY CONTROL SPECIALIST, BMP, PT, PTT, HS TROP, CBC, TSH3, CK #### [facility] [address] [place] [address] Troponin I.cardiac [Mass/vol ume] in Serum or Plasma by Detection limit <= 0.01 ng/Ordered By: Hunter Dhillon on 03-12-2023 Troponin I.cardiac DL <= 0.01 ng/mL [Mass/Vol] 5.6 pg/mL 0.0-15.0 [facility] Urea nitrogen [Mass/volume] in Serum or PlasmaOrdered By: Hunter Dhillon on 03-12-2023 Urea nitrogen [Mass/Vol] 11 mg/dL 7 [facility] Urine appearanceOrdered By: Hunter Dhillon on 03-12-2023 Appearance (U) Slightly cloudy Clear [facility] Urine bacteria detection by automated methodOrdered By: Hunter Dhillon on 03-12-2023 Bacteria Auto Ql (U) 1+ None Seen [facility] Urine colorOrdered By: Gera Dhillon on 03-12-2023 Color (U) Yellow Yellow [facility] Urine glucose measurement by automated test strip (mass/volume)Ordered By: Hunter Dhillon on 03-12-2023 Glucose Auto test strip (U) [Mass/Vol] Normal mg/dL Normal [facility] Urine hemoglobin detection b y automated test stripOrdered By: Hunter Dhillon on 03-12-2023 Hemoglobin Auto test strip Ql (U) Negative Negative [facility] Urine leukocyte esterase det ection by automated test stripOrdered By: Hunter hDillon on 03-12-2023 Leukocyte esterase Auto test strip Ql (U) 3+ Negative [facility] Urine nitrite detection by a utomated test stripOrdered By: Hunter Dhillon on 03-12-2023 Nitrite Auto test strip Ql (U) Negative Negative [facility] Urobilinogen Auto test strip (U) [Mass/Vol]Ordered By: Hunter Dhillon on 03-12-2023 Urobilinogen (U) [Mass/Vol] Normal mg/dL Normal [facility] WBC Auto (Bld) [#/Vol]Ordere d By: Hunter Dhillon on 03-12-2023 WBC (Bld) [#/Vol] 8.9 10*3/uL 3.8-11.[address] [facility] pH Auto test strip (U)Ordere d By: Hunter Dhillon on 03-12-2023 pH (U) 1.010 [pH] 1.001-1.03 0 [facility] pH (U) 7.5 [pH] 5.0-9.0 [facility] Basic Metabolic Panelon 09-2 Anion gap [Moles/Vol] 6.6 mmol/L Normal 6.0-15.[address] [facility] Comment on above: Performed By: #### B INVENTORY CONTROL SPECIALIST, BMP, PT, PTT, HS TROP, CBC, TSH3, CK #### [address] Calcium [Mass/Vol] 8.9 mg/dL Normal 8.6-10.[address] [facility] Comment on above: Performed By: #### B INVENTORY CONTROL SPECIALIST, BMP, PT, PTT, HS TROP, CBC, TSH3, CK #### [address] Chloride [Moles/Vol] 104 mmol/L Normal 98-107 [facility] Comment on above: Performed By: #### B INVENTORY CONTROL SPECIALIST, BMP, PT, PTT, HS TROP, CBC, TSH3, CK #### [address] CO2 [Moles/Vol] 26.8 mmol/L Normal 21.0-31.0 [facility] Comment on above: Performed By: #### B INVENTORY CONTROL SPECIALIST, BMP, PT, PTT, HS TROP, CBC, TSH3, CK #### [address] Creatinine [Mass/Vol] 0.83 mg/dL Normal 0.60-1.[address] [facility] Comment on above: Performed By: #### B INVENTORY CONTROL SPECIALIST, BMP, PT, PTT, HS TROP, CBC, TSH3, CK #### [address] Creatinine Clr Calc Pharmacy 46.94 [facility] Comment on above: Performed By: #### B INVENTORY CONTROL SPECIALIST, BMP, PT, PTT, HS TROP, CBC, TSH3, CK #### [address] GFR/1.73 sq M.predicted MDRD (S/P/Bld) [Vol rate/Area] mL/min/{1.73_m2} [facility] Comment on above: Performed By: #### B INVENTORY CONTROL SPECIALIST, BMP, PT, PTT, HS TROP, CBC, TSH3, CK #### [facility] [address] Glucose [Mass/Vol] 94 mg/dL Normal 70-[address] [facility] Comment on above: Result Comment: [facility] Glucose Reference Range is dependent on time and content of last meal. Glucose of more than 200 mg/dL in a nonstressed, ambulatory subject supports the diagnosis of Diabetes Mellitus. ADA recommended reference range Performed By: #### B INVENTORY CONTROL SPECIALIST, BMP, PT, PTT, HS TROP, CBC, TSH3, CK #### [facility] [address] Potassium [Moles/Vol] 4.4 mmol/L Normal 3.5-5.[address] [facility] Comment on above: Performed By: #### B INVENTORY CONTROL SPECIALIST, BMP, PT, PTT, HS TROP, CBC, TSH3, CK #### [facility] [address] Sodium [Moles/Vol] 133 mmol/L Low 136-[address] [facility] Comment on above: Performed By: #### B INVENTORY CONTROL SPECIALIST, BMP, PT, PTT, HS TROP, CBC, TSH3, CK #### [facility] [address] Urea nitrogen [Mass/Vol] 8 mg/dL Normal 7-25 [facility] Comment on above: Performed By: #### B INVENTORY CONTROL SPECIALIST, BMP, PT, PTT, HS TROP, CBC, TSH3, CK #### [facility] [address] Basophils Auto (Bld) [#/Vol] Ordered By: Chuck Chacon on 03-07-2023 Basophils (Bld) [#/Vol] 0.0 10*3/uL 0.0-0.2 [facility] Basophils/100 WBC Auto (Bld) Ordered By: Chuck Chacon on 03-07-2023 Basophils/100 WBC (Bld) 0.7 % . [facility] Calcium [Mass/volume] in Ser um or PlasmaOrdered By: Chuck Chacon on 03-07-2023 Calcium [Mass/Vol] 8.9 mg/dL 8.6-10.[address] [facility] Carbon dioxide, total [Moles /volume] in Serum or PlasmaOrdered By: Chuck Chacon on 03-07-2023 CO2 [Moles/Vol] 26.8 mmol/L 21.0-31.0 [facility] Chloride [Moles/volume] in S yamilex or PlasmaOrdered By: Chuck Chacon on 03-07-2023 Chloride [Moles/Vol] 104 mmol/L 98-107 [facility] Complete Blood Count Auto Di ffon 03-07-2023 Basophils (Bld) [#/Vol] 0.0 10*3/uL Normal 0.0-0.2 [facility] Comment on above: Result Comment: PERF ORMED BY: [place] [address] PATHOLOGIST LOW RAW SUGAR CUTTER RAQUEL LOPEZ M.D. Performed By: #### B INVENTORY CONTROL SPECIALIST, BMP, PT, PTT, HS TROP, CBC, TSH3, CK #### [address] Basophils/100 WBC (Bld) 0.7 % Normal . [facility] Comment on above: Performed By: #### B INVENTORY CONTROL SPECIALIST, BMP, PT, PTT, HS TROP, CBC, TSH3, CK #### [address] Eosinophils (Bld) [#/Vol] 0.4 10*3/uL Normal 0.0-0.45 [facility] Comment on above: Performed By: #### B INVENTORY CONTROL SPECIALIST, BMP, PT, PTT, HS TROP, CBC, TSH3, CK #### [address] Eosinophils/100 WBC (Bld) 5.2 % Normal . [facility] Comment on above: Performed By: #### B INVENTORY CONTROL SPECIALIST, BMP, PT, PTT, HS TROP, CBC, TSH3, CK #### [address] Erythrocyte distribution width (RBC) [Ratio] 12.8 % Normal 11.9-15.3 [facility] [facility] Comment on above: Performed By: #### B INVENTORY CONTROL SPECIALIST, BMP, PT, PTT, HS TROP, CBC, TSH3, CK #### [address] Hematocrit (Bld) [Volume fraction] 35.2 % Normal 34.0-46.4 [facility] Comment on above: Performed By: #### B INVENTORY CONTROL SPECIALIST, BMP, PT, PTT, HS TROP, CBC, TSH3, CK #### [address] Hemoglobin (Bld) [Mass/Vol] 12.0 g/dL Normal 11.8-15.4 [facility] Comment on above: Performed By: #### B INVENTORY CONTROL SPECIALIST, BMP, PT, PTT, HS TROP, CBC, TSH3, CK #### [address] Lymphocytes (Bld) [#/Vol] 1.7 10*3/uL Normal 1.00-4.8 [facility] Comment on above: Performed By: #### B INVENTORY CONTROL SPECIALIST, BMP, PT, PTT, HS TROP, CBC, TSH3, CK #### [address] Lymphocytes/100 WBC (Bld) 24.6 % Normal . [facility] Comment on above: Performed By: #### B INVENTORY CONTROL SPECIALIST, BMP, PT, PTT, HS TROP, CBC, TSH3, CK #### [address] MCH (RBC) [Entitic mass] 31.6 pg Normal 24.7-34.3 [facility] Comment on above: Performed By: #### B INVENTORY CONTROL SPECIALIST, BMP, PT, PTT, HS TROP, CBC, TSH3, CK #### [address] MCV (RBC) [Entitic vol] 92.5 fL Normal 80-100 [facility] Comment on above: Performed By: #### B INVENTORY CONTROL SPECIALIST, BMP, PT, PTT, HS TROP, CBC, TSH3, CK #### [place] [id number] [place] Mean Corpuscular HGB Conc 34.1 g/dL Normal 32.0-35.0 [facility] Comment on above: Performed By: #### B INVENTORY CONTROL SPECIALIST, BMP, PT, PTT, HS TROP, CBC, TSH3, CK #### [address] Monocytes (Bld) [#/Vol] 0.6 10*3/uL Normal 0.0-0.8 [facility] Comment on above: Performed By: #### B INVENTORY CONTROL SPECIALIST, BMP, PT, PTT, HS TROP, CBC, TSH3, CK #### [address] Monocytes/100 WBC (Bld) 8.7 % Normal . [facility] Comment on above: Performed By: #### B INVENTORY CONTROL SPECIALIST, BMP, PT, PTT, HS TROP, CBC, TSH3, CK #### [address] Neutrophils (Bld) [#/Vol] 4.2 10*3/uL Normal 1.8-7.7 [facility] Comment on above: Performed By: #### B INVENTORY CONTROL SPECIALIST, BMP, PT, PTT, HS TROP, CBC, TSH3, CK #### [address] Neutrophils/100 WBC (Bld) 60.8 % Normal . [facility] Comment on above: Performed By: #### B INVENTORY CONTROL SPECIALIST, BMP, PT, PTT, HS TROP, CBC, TSH3, CK #### [address] NRBC% 0.0 /100{WBC} Normal 0-0.5 [facility] Comment on above: Performed By: #### B INVENTORY CONTROL SPECIALIST, BMP, PT, PTT, HS TROP, CBC, TSH3, CK #### [address] Platelet mean volume (Bld) [Entitic vol] 7.5 fL Normal 6.3-10.7 [facility] Comment on above: Performed By: #### B INVENTORY CONTROL SPECIALIST, BMP, PT, PTT, HS TROP, CBC, TSH3, CK #### [facility] [address] Platelets (Bld) [#/Vol] 232 10*3/uL Normal 150-450 [facility] Comment on above: Performed By: #### B INVENTORY CONTROL SPECIALIST, BMP, PT, PTT, HS TROP, CBC, TSH3, CK #### [facility] [address] RBC (Bld) [#/Vol] 3.80 10*6/uL Normal 3.60-5.00 [facility] Comment on above: Performed By: #### B INVENTORY CONTROL SPECIALIST, BMP, PT, PTT, HS TROP, CBC, TSH3, CK #### [facility] [address] WBC (Bld) [#/Vol] 6.8 10*3/uL Normal 3.8-11.[address] [facility] Comment on above: Performed By: #### B INVENTORY CONTROL SPECIALIST, BMP, PT, PTT, HS TROP, CBC, TSH3, CK #### [facility] [address] Creatinine [Mass/volume] in Serum or PlasmaOrdered By: Chuck Chacon on 03-07-2023 Creatinine [Mass/Vol] 0.83 mg/dL 0.60-1.[address] [facility] Eosinophils Auto (Bld) [#/Vo l]Ordered By: Chuck Chacon on 03-07-2023 Eosinophils (Bld) [#/Vol] 0.4 10*3/uL 0.0-0.45 [facility] Eosinophils/100 WBC Auto (Bl d)Ordered By: Chuck Chacon on 03-07-2023 Eosinophils/100 WBC (Bld) 5.2 % . [facility] Erythrocyte distribution wid th Auto (RBC) [Ratio]Ordered By: Chuck Chacon on 03-07-2023 Erythrocyte distribution width (RBC) [Ratio] 12.8 % 11.9-15.3 [facility] Glucose [Mass/volume] in Ser um or PlasmaOrdered By: Chuck Chacon on 03-07-2023 Glucose [Mass/Vol] 94 mg/dL 70-[address] [facility] Comment on above: ADA recommended refe rence rangeRandom Glucose Reference Range is dependent on time and content of last meal. Glucose of more than 200 mg/dL in a nonstressed, ambulatory subject supports the diagnosis of Diabetes Mellitus. Hematocrit Auto (Bld) [Volum e fraction]Ordered By: Chuck Chacon on 03-07-2023 Hematocrit (Bld) [Volume fraction] 35.2 % 34.0-46.4 [facility] Hemoglobin [Mass/volume] in BloodOrdered By: Chuck Chacon on 03-07-2023 Hemoglobin (Bld) [Mass/Vol] 12.0 g/dL 11.8-15.4 [facility] Leukocytes [#/volume] correc jazmyne for nucleated erythrocytes in Blood by Automated counOrdered By: Chuck Chacon on 03-07-2023 WBC corrected for nucl RBC Auto (Bld) [#/Vol] 6.8 10*3/uL 3.8-11.6 [facility] Lymphocytes Auto (Bld) [#/Vo l]Ordered By: Chuck Chacon on 03-07-2023 Lymphocytes (Bld) [#/Vol] 1.7 10*3/uL 1.00-4.8 [facility] Lymphocytes/100 WBC Auto (Bl d)Ordered By: Chuck Chacon on 03-07-2023 Lymphocytes/100 WBC (Bld) 24.6 % . [facility] MCH Auto (RBC) [Entitic mass ]Ordered By: Chuck Chacon on 03-07-2023 MCH (RBC) [Entitic mass] 31.6 pg 24.7-34.3 [facility] MCHC Auto (RBC) [Mass/Vol]Or dered By: Chuck Chacon on 03-07-2023 MCHC (RBC) [Mass/Vol] 34.1 g/dL 32.0-35.[address] [facility] MCV Auto (RBC) [Entitic vol] Ordered By: Chuck Chacon on 03-07-2023 MCV (RBC) [Entitic vol] 92.5 fL 80-100 [facility] Magnesiumon 03-07-2023 Magnesium [Mass/Vol] 1.4 mg/dL Low 1.9-2.7 [facility] Comment on above: Result Comment: PERF ORMED BY: [facility] [address] [place] [address] PATHOLOGIST LOW RAW SUGAR CUTTER RAQUEL LOPEZ M.D. Performed By: #### B INVENTORY CONTROL SPECIALIST, BMP, PT, PTT, HS TROP, CBC, TSH3, CK #### [facility] [address] Magnesium [Mass/volume] in S yamilex or PlasmaOrdered By: Chuck Chacon on 03-07-2023 Magnesium [Mass/Vol] 1.4 mg/dL 1.9-2.7 [facility] Monocytes Auto (Bld) [#/Vol] Ordered By: Chuck Chacon on 03-07-2023 Monocytes (Bld) [#/Vol] 0.6 10*3/uL 0.0-0.8 [facility] Monocytes/100 WBC Auto (Bld) Ordered By: Chuck Chacon on 03-07-2023 Monocytes/100 WBC (Bld) 8.7 % . [facility] Neutrophils Auto (Bld) [#/Vo l]Ordered By: Chuck Chacon on 03-07-2023 Neutrophils (Bld) [#/Vol] 4.2 10*3/uL 1.8-7.7 [facility] Neutrophils/100 WBC Auto (Bl d)Ordered By: Chuck Chacon on 03-07-2023 Neutrophils/100 WBC (Bld) 60.8 % . [facility] No Panel InformationOrdered By: Chuck Chacon on 03-07-2023 Estimated GFR (CKD-EPI) > 60.0 mL/Min [facility] Creatinine Clearance (Chem 46.94 [facility] Nucleated erythrocytes [Pres ence] in Blood by Automated countOrdered By: Chuck Chacon on 03-07-2023 Nucleated RBC Auto Ql (Bld) 0.0 /100{WBC} 0-0.5 [facility] Platelet mean volume Auto (B ld) [Entitic vol]Ordered By: Chuck Chacon on 03-07-2023 Platelet mean volume (Bld) [Entitic vol] 7.5 fL 6.3-10.7 [facility] Platelets Auto (Bld) [#/Vol] Ordered By: Chuck Chacon on 03-07-2023 Platelets (Bld) [#/Vol] 232 10*3/uL 150-450 [facility] Potassium [Moles/volume] in Serum or PlasmaOrdered By: Chuck Chacon on 03-07-2023 Potassium [Moles/Vol] 4.4 mmol/L 3.5-5.[address] [facility] RBC Auto (Bld) [#/Vol]Ordere d By: Chuck Chacon on 03-07-2023 RBC (Bld) [#/Vol] 3.80 10*6/uL 3.60-5.00 [facility] Serum or plasma anion gap de terminationOrdered By: Chuck Chacon on 03-07-2023 Anion gap [Moles/Vol] 6.6 mmol/L 6.0-15.[address] [facility] Sodium [Moles/volume] in Ser um or PlasmaOrdered By: Chuck Chacon on 03-07-2023 Sodium [Moles/Vol] 133 mmol/L 136-[address] [facility] Urea nitrogen [Mass/volume] in Serum or PlasmaOrdered By: Chuck Chacon on 03-07-2023 Urea nitrogen [Mass/Vol] 8 mg/dL 01-03 [facility] WBC Auto (Bld) [#/Vol]Ordere d By: Chuck Chacon on 03-07-2023 WBC (Bld) [#/Vol] 6.8 10*3/uL 3.8-11.[address] [facility] A1C with Estimated Average G luon 03-06-2023 Glucose [Mass/Vol] 120 mg/dL Normal [facility] Comment on above: Result Comment: PERF ORMED BY: [place] [address] PATHOLOGIST LOW RAW SUGAR CUTTER RAQUEL LOPEZ M.D. Performed By: #### B INVENTORY CONTROL SPECIALIST, BMP, PT, PTT, HS TROP, CBC, TSH3, CK #### [facility] [address] HbA1c (Bld) [Mass fraction] 5.8 % High 4.3-5.6 [facility] Comment on above: Result Comment: Incr eased risk for diabetes: 5.7 - 6.4 diabetes: >6.4 glycemic control for adults with diabetes: <7.0 Performed By: #### B INVENTORY CONTROL SPECIALIST, BMP, PT, PTT, HS TROP, CBC, TSH3, CK #### [facility] [address] Alanine aminotransferase [En zymatic activity/volume] in Serum or PlasmaOrdered By: Obaydah Daromar on 03-06-2023 ALT [Catalytic activity/Vol] 17 U/L 7-52 [facility] Albumin [Mass/volume] in Ser um or Plasma by Bromocresol green (BCG) dye binding methoOrdered By: Obaydah Daromar on 03-06-2023 Albumin BCG dye [Mass/Vol] 4.3 g/dL 3.5-5.7 [facility] Alkaline phosphatase [Enzyma tic activity/volume] in Serum or PlasmaOrdered By: Obaydah Daromar on 03-06-2023 ALP [Catalytic activity/Vol] 45 U/L 34-104 [facility] Aspartate aminotransferase [ Enzymatic activity/volume] in Serum or PlasmaOrdered By: Obaydah Daromar on 03-06-2023 AST [Catalytic activity/Vol] 16 U/L 13-39 [facility] Bilirubin.total [Mass/volume ] in Serum or PlasmaOrdered By: Obaydah Daromar on 03-06-2023 Bilirubin [Mass/Vol] 0.5 mg/dL 0.3-1.0 [facility] Cholesterol [Mass/volume] in Serum or PlasmaOrdered By: Obaydah Daromar on 09-25-2023 Cholesterol [Mass/Vol] 88 mg/dL 140-200 [facility] Comment on above: Chol less than 200 m g/dl low riskChol 201-239 mg/dl borderline riskChol 240 mg/dl and greater high risk Cholesterol in LDL Calc [Mas s/Vol]Ordered By: Jemal Gonzalezomaanna on 03-06-2023 Cholesterol in LDL [Mass/Vol] 29 mg/dL 0-100 [facility] Comment on above: LDL ATP III CLASSIFI CATIONLDL less than 100 mg/dL OptimalLDL 100-129 mg/dL Near or above optimalLDL 130-159 mg/dL Borderline highLDL 160-189 mg/dL HighLDL greater than 189 mg/dL Very high Cholesterol in VLDL Calc [Ma ss/Vol]Ordered By: Tradamarck Gonzalezomaanna on 03-06-2023 Cholesterol in VLDL [Mass/Vol] 16 mg/dL [facility] Complete Blood Count Auto Di ffon 03-06-2023 Basophils (Bld) [#/Vol] 0.0 10*3/uL Normal 0.0-0.2 [facility] Comment on above: Result Comment: PERF ORMED BY: [place] [address] PATHOLOGIST LOW RAW SUGAR CUTTER RAQUEL LOPEZ M.D. Performed By: #### B INVENTORY CONTROL SPECIALIST, BMP, PT, PTT, HS TROP, CBC, TSH3, CK #### [facility] [address] [place] [address] [place] Basophils/100 WBC (Bld) 0.6 % Normal . [facility] Comment on above: Performed By: #### B INVENTORY CONTROL SPECIALIST, BMP, PT, PTT, HS TROP, CBC, TSH3, CK #### [facility] [address] [place] [address] [place] Eosinophils (Bld) [#/Vol] 0.3 10*3/uL Normal 0.0-0.45 [facility] Comment on above: Performed By: #### B INVENTORY CONTROL SPECIALIST, BMP, PT, PTT, HS TROP, CBC, TSH3, CK #### [facility] [address] [place] [address] [place] Eosinophils/100 WBC (Bld) 4.2 % Normal . [facility] Comment on above: Performed By: #### B INVENTORY CONTROL SPECIALIST, BMP, PT, PTT, HS TROP, CBC, TSH3, CK #### [address] Erythrocyte distribution width (RBC) [Ratio] 12.9 % Normal 11.9-15.3 [facility] Comment on above: Performed By: #### B INVENTORY CONTROL SPECIALIST, BMP, PT, PTT, HS TROP, CBC, TSH3, CK #### [address] Hematocrit (Bld) [Volume fraction] 37.9 % Normal 34.0-46.4 [facility] Comment on above: Performed By: #### B INVENTORY CONTROL SPECIALIST, BMP, PT, PTT, HS TROP, CBC, TSH3, CK #### [address] Hemoglobin (Bld) [Mass/Vol] 13.0 g/dL Normal 11.8-15.4 [facility] Comment on above: Performed By: #### B INVENTORY CONTROL SPECIALIST, BMP, PT, PTT, HS TROP, CBC, TSH3, CK #### [address] Lymphocytes (Bld) [#/Vol] 1.7 10*3/uL Normal 1.00-4.8 [facility] Comment on above: Performed By: #### B INVENTORY CONTROL SPECIALIST, BMP, PT, PTT, HS TROP, CBC, TSH3, CK #### [address] Lymphocytes/100 WBC (Bld) 22.0 % Normal . [facility] Comment on above: Performed By: #### B INVENTORY CONTROL SPECIALIST, BMP, PT, PTT, HS TROP, CBC, TSH3, CK #### [address] MCH (RBC) [Entitic mass] 31.5 pg Normal 24.7-34.3 [facility] Comment on above: Performed By: #### B INVENTORY CONTROL SPECIALIST, BMP, PT, PTT, HS TROP, CBC, TSH3, CK #### [address] [place] [address] [place] MCV (RBC) [Entitic vol] 91.9 fL Normal 80-100 [facility] Comment on above: Performed By: #### B INVENTORY CONTROL SPECIALIST, BMP, PT, PTT, HS TROP, CBC, TSH3, CK #### [address] Mean Corpuscular HGB Conc 34.3 g/dL Normal 32.0-35.0 [facility] Comment on above: Performed By: #### B INVENTORY CONTROL SPECIALIST, BMP, PT, PTT, HS TROP, CBC, TSH3, CK #### [address] Monocytes (Bld) [#/Vol] 0.6 10*3/uL Normal 0.0-0.8 [facility] Comment on above: Performed By: #### B INVENTORY CONTROL SPECIALIST, BMP, PT, PTT, HS TROP, CBC, TSH3, CK #### [address] Monocytes/100 WBC (Bld) 8.2 % Normal . [facility] Comment on above: Performed By: #### B INVENTORY CONTROL SPECIALIST, BMP, PT, PTT, HS TROP, CBC, TSH3, CK #### [address] Neutrophils (Bld) [#/Vol] 5.1 10*3/uL Normal 1.8-7.7 [facility] Comment on above: Performed By: #### B INVENTORY CONTROL SPECIALIST, BMP, PT, PTT, HS TROP, CBC, TSH3, CK #### [address] Neutrophils/100 WBC (Bld) 65.0 % Normal . [facility] Comment on above: Performed By: #### B INVENTORY CONTROL SPECIALIST, BMP, PT, PTT, HS TROP, CBC, TSH3, CK #### [address] NRBC% 0.1 /100{WBC} Normal 0-0.5 [facility] Comment on above: Performed By: #### B INVENTORY CONTROL SPECIALIST, BMP, PT, PTT, HS TROP, CBC, TSH3, CK #### [address] Platelet mean volume (Bld) [Entitic vol] 7.4 fL Normal 6.3-10.7 [facility] Comment on above: Performed By: #### B INVENTORY CONTROL SPECIALIST, BMP, PT, PTT, HS TROP, CBC, TSH3, CK #### [address] Platelets (Bld) [#/Vol] 257 10*3/uL Normal 150-450 [facility] Comment on above: Performed By: #### B INVENTORY CONTROL SPECIALIST, BMP, PT, PTT, HS TROP, CBC, TSH3, CK #### [address] RBC (Bld) [#/Vol] 4.12 10*6/uL Normal 3.60-5.00 [facility] Comment on above: Performed By: #### B INVENTORY CONTROL SPECIALIST, BMP, PT, PTT, HS TROP, CBC, TSH3, CK #### [address] WBC (Bld) [#/Vol] 7.8 10*3/uL Normal 3.8-11.[address] [facility] Comment on above: Performed By: #### B INVENTORY CONTROL SPECIALIST, BMP, PT, PTT, HS TROP, CBC, TSH3, CK #### [address] Comprehensive Metabolic Pane zofia 03-06-2023 Albumin [Mass/Vol] 4.3 g/dL Normal 3.5-5.[address] [facility] Comment on above: Performed By: #### B INVENTORY CONTROL SPECIALIST, BMP, PT, PTT, HS TROP, CBC, TSH3, CK #### [address] Albumin/Globulin [Mass ratio] 1.9 {ratio} Normal [facility] Comment on above: Performed By: #### B INVENTORY CONTROL SPECIALIST, BMP, PT, PTT, HS TROP, CBC, TSH3, CK #### [place] [id number] [place] ALP [Catalytic activity/Vol] 45 U/L Normal 34-104 [facility] Comment on above: Performed By: #### B INVENTORY CONTROL SPECIALIST, BMP, PT, PTT, HS TROP, CBC, TSH3, CK #### [address] ALT [Catalytic activity/Vol] 17 U/L Normal 7-52 [facility] Comment on above: Performed By: #### B INVENTORY CONTROL SPECIALIST, BMP, PT, PTT, HS TROP, CBC, TSH3, CK #### [address] Anion gap [Moles/Vol] 10.4 mmol/L Normal 6.0-15.0 [facility] Comment on above: Performed By: #### B INVENTORY CONTROL SPECIALIST, BMP, PT, PTT, HS TROP, CBC, TSH3, CK #### [address] AST [Catalytic activity/Vol] 16 U/L Normal 13-39 [facility] Comment on above: Performed By: #### B INVENTORY CONTROL SPECIALIST, BMP, PT, PTT, HS TROP, CBC, TSH3, CK #### [address] Bilirubin [Mass/Vol] 0.5 mg/dL Normal 0.3-1.0 [facility] Comment on above: Performed By: #### B INVENTORY CONTROL SPECIALIST, BMP, PT, PTT, HS TROP, CBC, TSH3, CK #### [address] Calcium [Mass/Vol] 9.2 mg/dL Normal 8.6-10.[address] [facility] Comment on above: Performed By: #### B INVENTORY CONTROL SPECIALIST, BMP, PT, PTT, HS TROP, CBC, TSH3, CK #### [address] Chloride [Moles/Vol] 98 mmol/L Normal 98-107 [facility] Comment on above: Performed By: #### B INVENTORY CONTROL SPECIALIST, BMP, PT, PTT, HS TROP, CBC, TSH3, CK #### [facility] [address] CO2 [Moles/Vol] 24.9 mmol/L Normal 21.0-31.0 [facility] Comment on above: Performed By: #### B INVENTORY CONTROL SPECIALIST, BMP, PT, PTT, HS TROP, CBC, TSH3, CK #### [facility] [address] Creatinine [Mass/Vol] 0.85 mg/dL Normal 0.60-1.[address] [facility] Comment on above: Performed By: #### B INVENTORY CONTROL SPECIALIST, BMP, PT, PTT, HS TROP, CBC, TSH3, CK #### [address] Creatinine Clr Calc Pharmacy 45.45 [facility] Comment on above: Performed By: #### B INVENTORY CONTROL SPECIALIST, BMP, PT, PTT, HS TROP, CBC, TSH3, CK #### [address] GFR/1.73 sq M.predicted MDRD (S/P/Bld) [Vol rate/Area] mL/min/{1.73_m2} [facility] Comment on above: Performed By: #### B INVENTORY CONTROL SPECIALIST, BMP, PT, PTT, HS TROP, CBC, TSH3, CK #### [address] Globulin (S) [Mass/Vol] 2.3 g/dL [facility] Comment on above: Performed By: #### B INVENTORY CONTROL SPECIALIST, BMP, PT, PTT, HS TROP, CBC, TSH3, CK #### [address] Glucose [Mass/Vol] 97 mg/dL Normal 70-[address] [facility] Comment on above: Result Comment: [place] Glucose Reference Range is dependent on time and content of last meal. Glucose of more than 200 mg/dL in a nonstressed, ambulatory subject supports the diagnosis of Diabetes Mellitus. ADA recommended reference range Performed By: #### B INVENTORY CONTROL SPECIALIST, BMP, PT, PTT, HS TROP, CBC, TSH3, CK #### [address] [place] [address] [place] Potassium [Moles/Vol] 4.3 mmol/L Normal 3.5-5.[address] [facility] Comment on above: Performed By: #### B INVENTORY CONTROL SPECIALIST, BMP, PT, PTT, HS TROP, CBC, TSH3, CK #### [facility] [address] Protein [Mass/Vol] 6.6 g/dL Normal 6.4-8.[address] [facility] Comment on above: Performed By: #### B INVENTORY CONTROL SPECIALIST, BMP, PT, PTT, HS TROP, CBC, TSH3, CK #### [address] Sodium [Moles/Vol] 129 mmol/L Low 136-[address] [facility] Comment on above: Performed By: #### B INVENTORY CONTROL SPECIALIST, BMP, PT, PTT, HS TROP, CBC, TSH3, CK #### [address] Urea nitrogen [Mass/Vol] 14 mg/dL Normal 7-25 [facility] Comment on above: Performed By: #### B INVENTORY CONTROL SPECIALIST, BMP, PT, PTT, HS TROP, CBC, TSH3, CK #### [address] Dipstick and Microscopicon 0 03-06-2023 Appearance (U) Clear Normal Clear [facility] Comment on above: Order Comment: Name Collection Type:: Clean-Voided Midstream Performed By: #### A DDONUAPLUS #### [address] Bacteria,Urine 1+ High None Seen [facility] Comment on above: Order Comment: Name Collection Type:: Clean-Voided Midstream Performed By: #### A DDONUAPLUS #### [address] Bilirubin,Urine Negative Normal Negative [facility] Comment on above: Order Comment: Name Collection Type:: Clean-Voided Midstream Performed By: #### A DDONUAPLUS #### [address] [place] [address] [place] Color (U) Yellow Normal Yellow [facility] Comment on above: Order Comment: Name Collection Type:: Clean-Voided Midstream Performed By: #### A DDONUAPLUS #### [facility] [address] [place] [address] [place] Glucose Ql (U) Normal Normal Normal [facility] Comment on above: Order Comment: Name Collection Type:: Clean-Voided Midstream Performed By: #### A DDONUAPLUS #### [place] [address] [place] Hyaline Casts,Urine None Seen Normal 0-1 [facility] Comment on above: Order Comment: Name Collection Type:: Clean-Voided Midstream Result Comment: PERF ORMED BY: [place] [address] PATHOLOGIST LOW RAW SUGAR CUTTER RAQUEL LOPEZ M.D. Performed By: #### A DDONUAPLUS #### [place] [address] [place] Ketones Ql (U) Trace High Negative [facility] Comment on above: Order Comment: Name Collection Type:: Clean-Voided Midstream Performed By: #### A DDONUAPLUS #### [place] [address] [place] Leukocyte esterase Test strip Ql (U) 1+ High Negative [facility] Comment on above: Order Comment: Name Collection Type:: Clean-Voided Midstream Performed By: #### A DDONUAPLUS #### [facility] [address] [place] [address] [place] Nitrite,Urine Negative Normal Negative [facility] Comment on above: Order Comment: Name Collection Type:: Clean-Voided Midstream Performed By: #### A DDONUAPLUS #### [place] [address] [place] Occult Blood,Urine Negative Normal Negative [facility] Comment on above: Order Comment: Name Collection Type:: Clean-Voided Midstream Result Comment: PERF ORMED BY: [place] [address] PATHOLOGIST LOW RAW SUGAR CUTTER RAQUEL LOPEZ M.D. Performed By: #### A DDONUAPLUS #### [address] pH (U) 6.0 [pH] Normal 5.0-9.0 [facility] Comment on above: Order Comment: Name Collection Type:: Clean-Voided Midstream Performed By: #### A DDONUAPLUS #### [address] Protein,Urine Negative Normal Negative [facility] Comment on above: Order Comment: Name Collection Type:: Clean-Voided Midstream Performed By: #### A DDONUAPLUS #### [address] RBC,Urine None Seen Normal 0-4 [facility] Comment on above: Order Comment: Name Collection Type:: Clean-Voided Midstream Performed By: #### A DDONUAPLUS #### [address] Renal Epithelial Cells,Urine Rare Normal 0-1 [facility] Comment on above: Order Comment: Name Collection Type:: Clean-Voided Midstream Performed By: #### A DDONUAPLUS #### [address] Specificy [place],Urine 1.015 Normal 1.001-1.03 0 [facility] Comment on above: Order Comment: Name Collection Type:: Clean-Voided Midstream Performed By: #### A DDONUAPLUS #### [address] Squamous Epithelial Cell,Urine 3-4 High 0-2 [facility] Comment on above: Order Comment: Name Collection Type:: Clean-Voided Midstream Performed By: #### A DDONUAPLUS #### [address] Urobilinogen,Urine Normal Normal Normal [facility] Comment on above: Order Comment: Name Collection Type:: Clean-Voided Midstream Performed By: #### A DDONUAPLUS #### [facility] [address] WBC,Urine 3-4 Normal 0-4 [facility] Comment on above: Order Comment: Name Collection Type:: Clean-Voided Midstream Performed By: #### A DDONUAPLUS #### [facility] [address] echo transthoracicon [facility] echo transthoracic [facility] [place] [address] [place] [address] Echocardiogram Signed Patient: Steven Harding MR#: [id number] 1 : 1940 Acct:[id number] Age/Sex: 83 / F ADM Date: 03/05/23 Loc: Room: [address] [place] [address] Type: ADM INOo Attending Dr: Chuck Chacon MD Ordering Provider: Jemal Jones MD Date of Service: 03/06/23 [facility] echo transthoracic: Dizziness Copies to: MD Jemal Tello MD Weight: 140 lb Performed By: FREDDIE Vallejo BSA: 1.6 m2 BP: 160/69 mmHg HR: 75 Reason For Study: Dizziness History: aortic aneurysm, HTN, MD, pre-DM, PCI, former smoker, CAD Interpretation Summary [...] Signed By: Karli Dougherty MD 03/06/23 1231 [facility] Free T4 (Free Thyroxine)on 0 03-06-2023 Free T4 [Mass/Vol] 1.01 ng/dL Normal 0.61-1.[address] [facility] Comment on above: Performed By: #### B INVENTORY CONTROL SPECIALIST, BMP, PT, PTT, HS TROP, CBC, TSH3, CK #### [facility] [address] Globulin Calc (S) [Mass/Vol] Ordered By: Jemal Jones on 03-06-2023 Globulin (S) [Mass/Vol] 2.3 g/dL [facility] Glucose Glucometer (BldC) [M ass/Vol]Ordered By: Jemal Jones on 03-06-2023 Glucose [Mass/Vol] 104 mg/dL [facility] Comment on above: Random Glucose Refer ence Range is dependent on time and content of last meal. Glucose of more than 200 mg/dL in a nonstressed, ambulatory subject supports the diagnosis of Diabetes Mellitus. Glucose Poct Glucometerson 0 03-06-2023 Glucose [Mass/Vol] 104 mg/dL Normal [facility] Comment on above: Result Comment: [place] [facility] Glucose Reference Range is dependent on time and content of last meal. Glucose of more than 200 mg/dL in a nonstressed, ambulatory subject supports the diagnosis of Diabetes Mellitus. PERFORMED BY: [facility] [address] [place] [address] PATHOLOGIST LOW RAW SUGAR CUTTER RAQUEL LOPEZ M.D. Performed By: #### B INVENTORY CONTROL SPECIALIST, BMP, PT, PTT, HS TROP, CBC, TSH3, CK #### [facility] [address] Glucose mean value [Mass/vol ume] in Blood Estimated from glycated hemoglobinOrdered By: Jemal Jones on 03-06-2023 Average glucose Estimated from glycated hemoglobin (Bld) [Mass/Vol] 120 mg/dL [facility] Hemoglobin A1c percentageOrd ered By: Jemla Jones on 03-06-2023 HbA1c (Bld) [Mass fraction] 5.8 % 4.3-5.6 [facility] Comment on above: Increased risk for d iabetes: 5.7 - 6.4diabetes: >6.4glycemic control for adults with diabetes: <7.0 Lipid Panelon 03-06-2023 Cholesterol [Mass/Vol] 88 mg/dL Low 140-200 [facility] Comment on above: Result Comment: Chol less than 200 mg/dl low risk Chol 201-239 mg/dl borderline risk Chol 240 mg/dl and greater high risk Performed By: #### B INVENTORY CONTROL SPECIALIST, BMP, PT, PTT, HS TROP, CBC, TSH3, CK #### [facility] [address] Cholesterol in HDL [Mass/Vol] 42 mg/dL Normal 23-92 [facility] Comment on above: Result Comment: HDL CHOL ATP-III CLASSIFICATION Cardiovascular Risk HDL > or equal to 60 mg/dL LOW HDL < 40 mg/dL HIGH Performed By: #### B INVENTORY CONTROL SPECIALIST, BMP, PT, PTT, HS TROP, CBC, TSH3, CK #### [facility] [address] Cholesterol.total/Chol esterol in HDL [Mass ratio] 2.1 {ratio} Normal <5.0 [facility] Comment on above: Performed By: #### B INVENTORY CONTROL SPECIALIST, BMP, PT, PTT, HS TROP, CBC, TSH3, CK #### [facility] [address] LDL Cholesterol,Calculated 29 mg/dL Normal 0-100 [facility] Comment on above: Result Comment: LDL ATP III CLASSIFICATION LDL less than 100 mg/dL Optimal LDL 100-129 mg/dL Near or above optimal LDL 130-159 mg/dL Borderline high LDL 160-189 mg/dL High LDL greater than 189 mg/dL Very high Performed By: #### B INVENTORY CONTROL SPECIALIST, BMP, PT, PTT, HS TROP, CBC, TSH3, CK #### [facility] [address] Triglyceride w/Reflex 84 mg/dL Normal 0-[address] [facility] Comment on above: Result Comment: TRIG ATP III CLASSIFICATION TRIG less than 150 mg/dL Normal TRIG 150-199 mg/dL Borderline high TRIG 200-500 mg/dL High TRIG greater than 500 mg/dL Very high Standard traceable to the Center for Disease Conrtrol and Prevention (CDC) test method. Performed By: #### B INVENTORY CONTROL SPECIALIST, BMP, PT, PTT, HS TROP, CBC, TSH3, CK #### [facility] [address] [place] [address] [place] VLDL CHOLESTEROL 16 mg/dL Normal [facility] Comment on above: Performed By: #### B INVENTORY CONTROL SPECIALIST, BMP, PT, PTT, HS TROP, CBC, TSH3, CK #### [facility] [address] [place] [address] [place] Magnesiumon 03-06-2023 Magnesium [Mass/Vol] 1.4 mg/dL Low 1.9-2.7 [facility] Comment on above: Performed By: #### B INVENTORY CONTROL SPECIALIST, BMP, PT, PTT, HS TROP, CBC, TSH3, CK #### [facility] [address] [place] [address] [place] Protein [Mass/volume] in Ser um or PlasmaOrdered By: Jemal Gonzalezomar on 03-06-2023 Protein [Mass/Vol] 6.6 g/dL 6.4-8.[address] [facility] Serum or plasma albumin/glob ulin mass ratioOrdered By: Jemal Jones on 03-06-2023 Albumin/Globulin [Mass ratio] 1.9 {ratio} [facility] Serum or plasma high density lipoprotein (HDL) cholesterol measurementOrdered By: Jemal Jones on 03-06-2023 Cholesterol in HDL [Mass/Vol] 42 mg/dL 23- [facility] Comment on above: HDL CHOL ATP-III CLA SSIFICATION Cardiovascular RiskHDL > or equal to 60 mg/dL LOWHDL < 40 mg/dL HIGH Serum or plasma total choles terol/high density lipoprotein (HDL) cholesterol mass ratOrdered By: Jemal Velar on 03-06-2023 Cholesterol.total/Chol esterol in HDL [Mass ratio] 2.1 {ratio} <5.0 [facility] Thyroxine (T4) free [Mass/vo lume] in Serum or PlasmaOrdered By: Jemal Jones on 03-06-2023 Free T4 [Mass/Vol] 1.01 ng/dL 0.61-1.[address] [facility] Triglyceride [Mass/volume] i n Serum or PlasmaOrdered By: Jemal Jones on 03-06-2023 Triglyceride [Mass/Vol] 84 mg/dL 0-149 [facility] Comment on above: TRIG ATP III CLASSIF ICATIONTRIG less than 150 mg/dL NormalTRIG 150-199 mg/dL Borderline highTRIG 200-500 mg/dL High TRIG greater than 500 mg/dL Very highStandard traceable to the Center for Disease Conrtrol and Prevention (CDC) test method. Triiodothyronine (T3) Totalo n 03-06-2023 Triiodothyronine (T3) Total 1.29 ng/mL Normal 0.87-1.78 [facility] Comment on above: Result Comment: PERF ORMED BY: [place] [address] PATHOLOGIST LOW RAW SUGAR CUTTER RAQUEL LOPEZ M.D. Performed By: #### B INVENTORY CONTROL SPECIALIST, BMP, PT, PTT, HS TROP, CBC, TSH3, CK #### [address] Triiodothyronine (T3) [Mass/ volume] in Serum or PlasmaOrdered By: Jemal Jones on 03-06-2023 T3 [Mass/Vol] 1.29 ng/mL 0.87-1.78 [facility] US carotid doppler BIon 02-11 US carotid doppler BI [facility] [place] [address] Ultrasound Report Signed Patient: Steven Harding MR#: [id number] 1 : 1940 Acct:[id number] Age/Sex: 83 / F ADM Date: 03/05/23 Loc: Room: [address] [place] [address] Type: ADM INOo Attending Dr: Chuck Chacon [...] MD 03/06/23 1419 Signed By: 03/06/23 142 [facility] Activated partial thrombopla stin time (aPTT) in platelet poor plasma by coagulation aOrdered By: Monique Tierney on 03-05-2023 aPTT Coag (PPP) [Time] 25.4 s 25.1-36.5 [facility] Comment on above: A hematocrit value g reater than 55% may lead to inaccurate results in coagulation testing. Patients having hematocrit values >55% require a special collection tube for coagulation studies. Please contact the laboratory at [phone] for redraw instructions. Automated epithelial cells c ount in urine sediment (number/area)Ordered By: jacqui Jones on 03-05-2023 Epithelial cells Auto (Urine sed) [#/Area] 3-4 [HPF] 0-2 [facility] Automated erythrocytes count in urine sediment (number/area)Ordered By: [facility] Robert on 03-05-2023 RBC Auto (Urine sed) [#/Area] None seen [HPF] 0-4 [facility] Automated leukocytes count i n urine sediment (number/area)Ordered By: jacqui Jones on 03-05-2023 WBC Auto (Urine sed) [#/Area] 3-4 [HPF] 0-4 [facility] Automated urine hyaline cast s count (number/volume)Ordered By: [place] Jones on 03-05-2023 Hyaline casts Auto (U) [#/Vol] None seen [LPF] 0-1 [facility] B-Type Natriuretic Peptideon 03-05-2023 Natriuretic peptide B (Bld) [Mass/Vol] 42.0 pg/mL Normal 5-100 [facility] Comment on above: Result Comment: PERF ORMED BY: [place] [address] PATHOLOGIST LOW RAW SUGAR CUTTER RAQUEL LOPEZ M.D. Performed By: #### B INVENTORY CONTROL SPECIALIST, BMP, PT, PTT, HS TROP, CBC, TSH3, CK #### [place] [id number] [facility] Basic Metabolic Panelon 02-11 Anion gap [Moles/Vol] 17.1 mmol/L High 6.0-15.0 [facility] Comment on above: Performed By: #### B INVENTORY CONTROL SPECIALIST, BMP, PT, PTT, HS TROP, CBC, TSH3, CK #### [address] Calcium [Mass/Vol] 9.7 mg/dL Normal 8.6-10.[address] [facility] Comment on above: Performed By: #### B INVENTORY CONTROL SPECIALIST, BMP, PT, PTT, HS TROP, CBC, TSH3, CK #### [address] Chloride [Moles/Vol] 93 mmol/L Low 98-107 [facility] Comment on above: Performed By: #### B INVENTORY CONTROL SPECIALIST, BMP, PT, PTT, HS TROP, CBC, TSH3, CK #### [address] CO2 [Moles/Vol] 19.4 mmol/L Low 21.0-31.0 [facility] Comment on above: Performed By: #### B INVENTORY CONTROL SPECIALIST, BMP, PT, PTT, HS TROP, CBC, TSH3, CK #### [address] Creatinine [Mass/Vol] 0.84 mg/dL Normal 0.60-1.[address] [facility] Comment on above: Performed By: #### B INVENTORY CONTROL SPECIALIST, BMP, PT, PTT, HS TROP, CBC, TSH3, CK #### [address] Creatinine Clr Calc Pharmacy 46.72 [facility] Comment on above: Performed By: #### B INVENTORY CONTROL SPECIALIST, BMP, PT, PTT, HS TROP, CBC, TSH3, CK #### [place] [address] [place] GFR/1.73 sq M.predicted MDRD (S/P/Bld) [Vol rate/Area] mL/min/{1.73_m2} [facility] Comment on above: Performed By: #### B INVENTORY CONTROL SPECIALIST, BMP, PT, PTT, HS TROP, CBC, TSH3, CK #### [address] [place] [address] [place] Glucose [Mass/Vol] 85 mg/dL Normal 70-[address] [facility] Comment on above: Result Comment: [facility] Glucose Reference Range is dependent on time and content of last meal. Glucose of more than 200 mg/dL in a nonstressed, ambulatory subject supports the diagnosis of Diabetes Mellitus. ADA recommended reference range Performed By: #### B INVENTORY CONTROL SPECIALIST, BMP, PT, PTT, HS TROP, CBC, TSH3, CK #### [facility] [address] Potassium [Moles/Vol] 4.5 mmol/L Normal 3.5-5.[address] [facility] Comment on above: Performed By: #### B INVENTORY CONTROL SPECIALIST, BMP, PT, PTT, HS TROP, CBC, TSH3, CK #### [facility] [address] Sodium [Moles/Vol] 125 mmol/L Low 136-[address] [facility] Comment on above: Performed By: #### B INVENTORY CONTROL SPECIALIST, BMP, PT, PTT, HS TROP, CBC, TSH3, CK #### [facility] [address] Urea nitrogen [Mass/Vol] 17 mg/dL Normal 7-25 [facility] Comment on above: Performed By: #### B INVENTORY CONTROL SPECIALIST, BMP, PT, PTT, HS TROP, CBC, TSH3, CK #### [facility] [address] Basophils Auto (Bld) [#/Vol] Ordered By: Monique Tierney on 03-05-2023 Basophils (Bld) [#/Vol] 0.1 10*3/uL 0.0-0.2 [facility] Basophils/100 WBC Auto (Bld) Ordered By: Monique Tierney on 03-05-2023 Basophils/100 WBC (Bld) 0.5 % . [facility] Bilirubin Test strip Ql (U)O rdered By: Jemal Jones on 03-05-2023 Bilirubin Ql (U) Negative Negative [facility] CT angio neckon 03-05-2023 CT angio neck [facility] [place] [address] [place] [address] CT Scan Report Signed Patient: Steven Harding MR#: [id number] 1 : 1940 Acct:[id number] Age/Sex: 83 / F ADM Date: 03/05/23 Loc: ER Room: Type: [facility] Attending Dr: Copies to: Monique Tierney MD Ordering Provider: Monique Tierney MD Date of Service: 03/05/23 CT/CT angio neck: episodic dizziness, episode 2 wks ago face tinglin ([id number]) CT/CT angio head: episodic dizziness, episode 2 [...] Bethel Snyder M.D.03/05/2023 7:34 PM Dictation Location: [place] [address] Transcribed By: OSCAR 03/05/231933 Dictated By: Bethel Snyder DO 03/05/231928 Signed By: 03/05/231933 [facility] CT head/brain wo conon 03-05 CT head/brain wo con [facility] [address] [place] [address] [place] [address] CT Scan Report Signed Patient: Steven Harding MR#: [id number] 1 : 1940 Acct:[id number] Age/Sex: 83 / F ADM Date: 03/05/23 Loc: ER Room: Type: [facility] ER Attending Dr: Copies to: Monique [...] Bethel Snyder M.D.03/05/2023 7:29 PM Dictation Location: [place] [address] Transcribed By: [facility] 03/05/231928 Dictated By: Bethel Snyder DO 03/05/231927 Signed By: 03/05/231928 [facility] Calcium [Mass/volume] in Ser um or PlasmaOrdered By: Monique Tierney on 03-05-2023 Calcium [Mass/Vol] 9.7 mg/dL 8.6-10.[address] [facility] Carbon dioxide, total [Moles /volume] in Serum or PlasmaOrdered By: Monique Tierney on 03-05-2023 CO2 [Moles/Vol] 19.4 mmol/L 21.0-31.0 [facility] Chloride [Moles/volume] in S yamilex or PlasmaOrdered By: Monique Tierney on 03-05-2023 Chloride [Moles/Vol] 93 mmol/L 98-107 [facility] Color Auto (U)Ordered By: Ob jacqui Jones on 03-05-2023 Color (U) Yellow Yellow [facility] Complete Blood Count Auto Di ffon 03-05-2023 Basophils (Bld) [#/Vol] 0.1 10*3/uL Normal 0.0-0.2 [facility] Comment on above: Result Comment: PERF ORMED BY: [place] [address] PATHOLOGIST LOW RAW SUGAR CUTTER RAQUEL LOPEZ M.D. Performed By: #### B INVENTORY CONTROL SPECIALIST, BMP, PT, PTT, HS TROP, CBC, TSH3, CK #### [address] Basophils/100 WBC (Bld) 0.5 % Normal . [facility] Comment on above: Performed By: #### B INVENTORY CONTROL SPECIALIST, BMP, PT, PTT, HS TROP, CBC, TSH3, CK #### [address] Eosinophils (Bld) [#/Vol] 0.3 10*3/uL Normal 0.0-0.45 [facility] Comment on above: Performed By: #### B INVENTORY CONTROL SPECIALIST, BMP, PT, PTT, HS TROP, CBC, TSH3, CK #### [address] Eosinophils/100 WBC (Bld) 2.8 % Normal . [facility] Comment on above: Performed By: #### B INVENTORY CONTROL SPECIALIST, BMP, PT, PTT, HS TROP, CBC, TSH3, CK #### [address] Erythrocyte distribution width (RBC) [Ratio] 12.8 % Normal 11.9-15.3 [facility] Comment on above: Performed By: #### B INVENTORY CONTROL SPECIALIST, BMP, PT, PTT, HS TROP, CBC, TSH3, CK #### [address] Hematocrit (Bld) [Volume fraction] 39.9 % Normal 34.0-46.4 [facility] Comment on above: Performed By: #### B INVENTORY CONTROL SPECIALIST, BMP, PT, PTT, HS TROP, CBC, TSH3, CK #### [address] Hemoglobin (Bld) [Mass/Vol] 13.6 g/dL Normal 11.8-15.4 [facility] Comment on above: Performed By: #### B INVENTORY CONTROL SPECIALIST, BMP, PT, PTT, HS TROP, CBC, TSH3, CK #### [address] Lymphocytes (Bld) [#/Vol] 1.7 10*3/uL Normal 1.00-4.8 [facility] Comment on above: Performed By: #### B INVENTORY CONTROL SPECIALIST, BMP, PT, PTT, HS TROP, CBC, TSH3, CK #### [address] Lymphocytes/100 WBC (Bld) 14.7 % Normal . [facility] Comment on above: Performed By: #### B INVENTORY CONTROL SPECIALIST, BMP, PT, PTT, HS TROP, CBC, TSH3, CK #### [address] MCH (RBC) [Entitic mass] 31.3 pg Normal 24.7-34.3 [facility] Comment on above: Performed By: #### B INVENTORY CONTROL SPECIALIST, BMP, PT, PTT, HS TROP, CBC, TSH3, CK #### [address] MCV (RBC) [Entitic vol] 91.9 fL Normal 80-100 [facility] Comment on above: Performed By: #### B INVENTORY CONTROL SPECIALIST, BMP, PT, PTT, HS TROP, CBC, TSH3, CK #### [place] [address] [place] Mean Corpuscular HGB Conc 34.0 g/dL Normal 32.0-35.0 [facility] Comment on above: Performed By: #### B INVENTORY CONTROL SPECIALIST, BMP, PT, PTT, HS TROP, CBC, TSH3, CK #### [facility] [address] Monocytes (Bld) [#/Vol] 0.6 10*3/uL Normal 0.0-0.8 [facility] Comment on above: Performed By: #### B INVENTORY CONTROL SPECIALIST, BMP, PT, PTT, HS TROP, CBC, TSH3, CK #### [facility] [address] Monocytes/100 WBC (Bld) 18.39 % Normal 0.00-20.00 [facility] Comment on above: Performed By: #### B INVENTORY CONTROL SPECIALIST, BMP, PT, PTT, HS TROP, CBC, TSH3, CK #### [facility] [address] Monocytes/100 WBC (Bld) 5.4 % Normal . [facility] Comment on above: Performed By: #### B INVENTORY CONTROL SPECIALIST, BMP, PT, PTT, HS TROP, CBC, TSH3, CK #### [facility] [address] Neutrophils (Bld) [#/Vol] 8.7 10*3/uL High 1.8-7.7 [facility] Comment on above: Performed By: #### B INVENTORY CONTROL SPECIALIST, BMP, PT, PTT, HS TROP, CBC, TSH3, CK #### [facility] [address] Neutrophils/100 WBC (Bld) 76.6 % Normal . [facility] Comment on above: Performed By: #### B INVENTORY CONTROL SPECIALIST, BMP, PT, PTT, HS TROP, CBC, TSH3, CK #### [facility] [address] NRBC% 0.1 /100{WBC} Normal 0-0.5 [facility] Comment on above: Performed By: #### B INVENTORY CONTROL SPECIALIST, BMP, PT, PTT, HS TROP, CBC, TSH3, CK #### [facility] [address] Platelet mean volume (Bld) [Entitic vol] 7.5 fL Normal 6.3-10.7 [facility] Comment on above: Performed By: #### B INVENTORY CONTROL SPECIALIST, BMP, PT, PTT, HS TROP, CBC, TSH3, CK #### [address] Platelets (Bld) [#/Vol] 285 10*3/uL Normal 150-450 [facility] Comment on above: Performed By: #### B INVENTORY CONTROL SPECIALIST, BMP, PT, PTT, HS TROP, CBC, TSH3, CK #### [address] RBC (Bld) [#/Vol] 4.34 10*6/uL Normal 3.60-5.00 [facility] Comment on above: Performed By: #### B INVENTORY CONTROL SPECIALIST, BMP, PT, PTT, HS TROP, CBC, TSH3, CK #### [address] WBC (Bld) [#/Vol] 11.4 10*3/uL Normal 3.8-11.6 [facility] Comment on above: Performed By: #### B INVENTORY CONTROL SPECIALIST, BMP, PT, PTT, HS TROP, CBC, TSH3, CK #### [address] Creatine Kinaseon 03-05-2023 CK [Catalytic activity/Vol] 18 U/L Low [facility] Comment on above: Performed By: #### B INVENTORY CONTROL SPECIALIST, BMP, PT, PTT, HS TROP, CBC, TSH3, CK #### [address] Creatine kinase [Enzymatic a ctivity/volume] in Serum or PlasmaOrdered By: Monique Tierney on 03-05-2023 CK [Catalytic activity/Vol] 18 U/L [facility] Creatinine [Mass/volume] in Serum or PlasmaOrdered By: Monique Tierney on 03-05-2023 Creatinine [Mass/Vol] 0.84 mg/dL 0.60-1.[address] [facility] ECG 12 lead ECGon 03-05-2023 ECG 12 lead ECG [facility] [address] [address] Electrocardiograph Report Signed Patient: Steven Harding MR#: [id number] 1 : 1940 Acct:[id number] Age/Sex: 83 / F ADM Date: 03/05/23 Loc: Room: [address] [place] [address] Type: ADM INOo Attending Dr: Chuck Chacon [...] fascicular block Confirmed by Hoang Mancia DO ([id number]) on 03/06/2023 8:08:36 PM Referred By: Electronically Signed By:Hoang Mancia DO Transcribed By: MUS Signed By Hoang Mancia DO 2007 Normal [facility] Eosinophils Auto (Bld) [#/Vo l]Ordered By: Monique Tierney on 03-05-2023 Eosinophils (Bld) [#/Vol] 0.3 10*3/uL 0.0-0.45 [facility] Eosinophils/100 WBC Auto (Bl d)Ordered By: Monique Tierney on 03-05-2023 Eosinophils/100 WBC (Bld) 2.8 % . [facility] Erythrocyte distribution wid th Auto (RBC) [Ratio]Ordered By: Monique Tierney on 03-05-2023 Erythrocyte distribution width (RBC) [Ratio] 12.8 % 11.9-15.3 [facility] Glucose [Mass/volume] in Ser um or PlasmaOrdered By: Monique Tierney on 03-05-2023 Glucose [Mass/Vol] 85 mg/dL 70-[address] [facility] Comment on above: ADA recommended refe rence rangeRandom Glucose Reference Range is dependent on time and content of last meal. Glucose of more than 200 mg/dL in a nonstressed, ambulatory subject supports the diagnosis of Diabetes Mellitus. Hematocrit Auto (Bld) [Volum e fraction]Ordered By: Monique Tierney on 03-05-2023 Hematocrit (Bld) [Volume fraction] 39.9 % 34.0-46.4 [facility] Hemoglobin [Mass/volume] in BloodOrdered By: Monique Tierney on 03-05-2023 Hemoglobin (Bld) [Mass/Vol] 13.6 g/dL 11.8-15.4 [facility] INR in Platelet poor plasma by Coagulation assayOrdered By: Monique Tierney on 03-05-2023 INR Coag (PPP) [Relative time] 0.9 {INR} [facility] Comment on above: INR Therapeutic Rang [...] on 03-05-2023 Ketones (U) [Mass/Vol] Trace Negative [facility] Leukocytes [#/volume] correc jazmyne for nucleated erythrocytes in Blood by Automated counOrdered By: Monique Tierney on 03-05-2023 WBC corrected for nucl RBC Auto (Bld) [#/Vol] 11.4 10*3/uL 3.8-11.6 [facility] Lymphocytes Auto (Bld) [#/Vo l]Ordered By: Monique Tierney on 03-05-2023 Lymphocytes (Bld) [#/Vol] 1.7 10*3/uL 1.00-4.8 [facility] Lymphocytes/100 WBC Auto (Bl d)Ordered By: Monique Tierney on 03-05-2023 Lymphocytes/100 WBC (Bld) 14.7 % . [facility] MCH Auto (RBC) [Entitic mass ]Ordered By: Monique Tierney on 03-05-2023 MCH (RBC) [Entitic mass] 31.3 pg 24.7-34.3 [facility] MCHC Auto (RBC) [Mass/Vol]Or dered By: Monique Tierney on 03-05-2023 MCHC (RBC) [Mass/Vol] 34.0 g/dL 32.0-35.[address] [facility] MCV Auto (RBC) [Entitic vol] Ordered By: Monique Tierney on 03-05-2023 MCV (RBC) [Entitic vol] 91.9 fL 80-100 [facility] Monocyte distribution width [Entitic volume] in Blood by AutomatedOrdered By: Monique Tierney on 03-05-2023 Monocyte distribution width Auto (Bld) [Entitic vol] 18.39 % 0.00-20.00 [facility] Monocytes Auto (Bld) [#/Vol] Ordered By: Monique Tierney on 03-05-2023 Monocytes (Bld) [#/Vol] 0.6 10*3/uL 0.0-0.8 [facility] Monocytes/100 WBC Auto (Bld) Ordered By: Monique Tierney on 03-05-2023 Monocytes/100 WBC (Bld) 5.4 % . [facility] Natriuretic peptide B [Mass/ Vol]Ordered By: Monique Tierney on 03-05-2023 Natriuretic peptide B (Bld) [Mass/Vol] 42.0 pg/mL 5-100 [facility] Neutrophils Auto (Bld) [#/Vo l]Ordered By: Monique Tierney on 03-05-2023 Neutrophils (Bld) [#/Vol] 8.7 10*3/uL 1.8-7.7 [facility] Neutrophils/100 WBC Auto (Bl d)Ordered By: Monique Tierney on 03-05-2023 Neutrophils/100 WBC (Bld) 76.6 % . [facility] Nitrite Test strip Ql (U)Ord ered By: Jemal Jones on 03-05-2023 Nitrite Ql (U) Negative Negative [facility] No Panel InformationOrdered By: Monique Tierney on 03-05-2023 Estimated GFR (CKD-EPI) > 60.0 mL/Min [facility] Creatinine Clearance (Chem 46.72 [facility] Nucleated erythrocytes [Pres ence] in Blood by Automated countOrdered By: Monique Tierney on 03-05-2023 Nucleated RBC Auto Ql (Bld) 0.1 /100{WBC} 0-0.5 [facility] Partial Thromboplastin Timeo n 03-05-2023 aPTT Coag (Bld) [Time] 25.4 s Normal 25.1-36.5 [facility] Comment on above: Result Comment: A he matocrit value greater than 55% may lead to inaccurate results in coagulation testing. Patients having hematocrit values >55% require a special collection tube for coagulation studies. Please contact the laboratory at [phone] for redraw instructions. PERFORMED BY: [place] [address] PATHOLOGIST LOW RAW SUGAR CUTTER RAQUEL LOPEZ M.D. Performed By: #### B INVENTORY CONTROL SPECIALIST, BMP, PT, PTT, HS TROP, CBC, TSH3, CK #### [address] Platelet mean volume Auto (B ld) [Entitic vol]Ordered By: Monique Tierney on 03-05-2023 Platelet mean volume (Bld) [Entitic vol] 7.5 fL 6.3-10.7 [facility] Platelets Auto (Bld) [#/Vol] Ordered By: Monique Tierney on 03-05-2023 Platelets (Bld) [#/Vol] 285 10*3/uL 150-450 [facility] Potassium [Moles/volume] in Serum or PlasmaOrdered By: Monique Tierney on 03-05-2023 Potassium [Moles/Vol] 4.5 mmol/L 3.5-5.[address] [facility] Protein Auto test strip (U) [Mass/Vol]Ordered By: Jemal Jones on 03-05-2023 Protein (U) [Mass/Vol] Negative Negative [facility] Prothrombin Time INRon 03-05 INR Coag (PPP) [Relative time] 0.9 {INR} Normal [facility] Comment on above: Result Comment: INR [...] 3 - 4.5 Performed By: #### B INVENTORY CONTROL SPECIALIST, BMP, PT, PTT, HS TROP, CBC, TSH3, CK #### [facility] [address] [id number] [facility] PT Coag (PPP) [Time] 10.9 s Normal 9.0-12.9 [facility] Comment on above: Result Comment: A he matocrit value greater than 55% may lead to inaccurate results in coagulation testing. Patients having hematocrit values >55% require a special collection tube for coagulation studies. Please contact the laboratory at [phone] for redraw instructions. Performed By: #### B INVENTORY CONTROL SPECIALIST, BMP, PT, PTT, HS TROP, CBC, TSH3, CK #### [facility] [address] [id number] [facility] Prothrombin time (PT)Ordered By: Monique Tierney on 03-05-2023 PT Coag (PPP) [Time] 10.9 s 9.0-12.9 [facility] Comment on above: A hematocrit value g reater than 55% may lead to inaccurate results in coagulation testing. Patients having hematocrit values >55% require a special collection tube for coagulation studies. Please contact the laboratory at [phone] for redraw instructions. RBC Auto (Bld) [#/Vol]Ordere d By: Monique Tierney on 03-05-2023 RBC (Bld) [#/Vol] 4.34 10*6/uL 3.60-5.00 [facility] Serum or plasma anion gap de terminationOrdered By: Monique Tierney on 03-05-2023 Anion gap [Moles/Vol] 17.1 mmol/L 6.0-15.0 [facility] Sodium [Moles/volume] in Ser um or PlasmaOrdered By: Monique Tierney on 09-24-2023 Sodium [Moles/Vol] 125 mmol/L 136-[address] [facility] Specific gravity Auto test s trip (U) [Rel density]Ordered By: Jemal Jones on 03-05-2023 Specific gravity (U) [Rel density] 1.015 1.001-1.03 0 [facility] Thyroid Stimulating Hormoneo n 03-05-2023 TSH Qn 0.01 m[IU]/L Low 0.45-5.33 [facility] Comment on above: Result Comment: PERF ORMED BY: [place] [address] PATHOLOGIST LOW RAW SUGAR CUTTER RAQUEL LOPEZ M.D. Performed By: #### B INVENTORY CONTROL SPECIALIST, BMP, PT, PTT, HS TROP, CBC, TSH3, CK #### [facility] [address] [place], [place] [id number] [place] Thyrotropin [Units/volume] i n Serum or PlasmaOrdered By: Monique Tierney on 03-05-2023 TSH Qn 0.01 m[IU]/L 0.45-5.33 [facility] Troponin I High Sensitivityo n 03-05-2023 Troponin I High Sensitivity 6.3 pg/mL Normal 0.0-15.0 [facility] Comment on above: Result Comment: PERF ORMED BY: [place] [address] PATHOLOGIST LOW RAW SUGAR CUTTER RAQUEL LOPEZ M.D. Performed By: #### B INVENTORY CONTROL SPECIALIST, BMP, PT, PTT, HS TROP, CBC, TSH3, CK #### [facility] [address] [place] [address] Troponin I.cardiac [Mass/vol ume] in Serum or Plasma by Detection limit <= 0.01 ng/Ordered By: Monique Tierney on 03-05-2023 Troponin I.cardiac DL <= 0.01 ng/mL [Mass/Vol] 6.3 pg/mL 0.0-15.0 [facility] Urea nitrogen [Mass/volume] in Serum or PlasmaOrdered By: Monique Tierney on 03-05-2023 Urea nitrogen [Mass/Vol] 17 mg/dL 7-25 [facility] Urine bacteria detection by automated methodOrdered By: Jemal Jones on 03-05-2023 Bacteria Auto Ql (U) 1+ None Seen [facility] Urine clarity by refractomet ry automatedOrdered By: Jemal Jones on 03-05-2023 Clarity Refractometry automated (U) Clear Clear [facility] Urine glucose measurement by automated test strip (mass/volume)Ordered By: Jemal Jones on 03-05-2023 Glucose Auto test strip (U) [Mass/Vol] Normal mg/dL Normal [facility] Urine hemoglobin detection b y automated test stripOrdered By: Jemal Jones on 03-05-2023 Hemoglobin Auto test strip Ql (U) Negative Negative [facility] Urine leukocyte esterase det ection by automated test stripOrdered By: Jemal Jones on 03-05-2023 Leukocyte esterase Auto test strip Ql (U) 1+ Negative [facility] Urine sediment renal epithel ial cell count by microscopy (number/high power field)Ordered By: Jemal Jones on 03-05-2023 Epithelial cells.renal LM.HPF (Urine sed) [#/Area] Rare [HPF] 0-1 [facility] Urobilinogen Auto test strip (U) [Mass/Vol]Ordered By: Jemal Jones on 03-05-2023 Urobilinogen (U) [Mass/Vol] Normal mg/dL Normal [facility] WBC Auto (Bld) [#/Vol]Ordere d By: Monique Tierney on 03-05-2023 WBC (Bld) [#/Vol] 11.4 10*3/uL 3.8-11.6 [facility] XR chest 2V*on 03-05-2023 XR chest 2V* [facility] [address] XRay Report Signed Patient: Steven Harding MR#: [id number] 1 : 1940 Acct:[id number] Age/Sex: 83 / F ADM Date: 03/05/23 Loc: ER Room: Type: [facility] ER Attending Dr: Copies to: Monique [...] Bethel Snyder M.D.03/05/2023 7:27 PM Dictation Location: [place] [address] Transcribed By: [facility] 03/05/231926 Dictated By: Bethel Snyder DO 03/05/231925 Signed By: 03/05/231926 Normal [facility] pH Auto test strip (U)Ordere d By: Jemal Jones on 03-05-2023 pH (U) 6.0 [pH] 5.0-9.0 [facility] Office Visit (Cardiology)on 02-16-2023 Follow-up visit [...] Weight Tips; Status:Complete - Retrospective Authorization; Done: [id number] Some eating tips that can help you lose weight.; Status:Complete - Retrospective Authorization; Done: [id number] PMH: Coronary artery disease involving fond [place] coronary artery of [place] heart without angina pectoris, Mixed hyperlipidemia Renew: Atorvastatin Calcium 80 MG Oral Tablet; TAKE 1 TABLET AT BEDTIME SocHx: Former smoker Tobacco Use Screening; Status:Complete; Done: [id number] Status post percutaneous transluminal coronary angioplasty, Two-vessel [...] FOR CHEST PAIN.CALL 911 IF PAIN PERSISTS. INVENTORY CONTROL SPECIALIST Thyroid 60 MG Oral TabletTAKE 1 TABLET [...] No alcoho (more content not included)... Normal [email or web address] Tobacco Screening.on 023 Fall risk assessment a) No falls within the last year [facility] [place] [address] DO Work Phone: Tobacco use status [facility] b) No [facility] Work Phone: REVERSE T3on 10-17-2022 Reverse T3, Serum 18.8 ng/dL Normal 9.2-24.1 [facility] Comment on above: Performed By: #### R EVRT3 #### [facility] [address] [address] [address] Ellie Smith T3, TOTAL (TRIIODOTHYRONINE) on 10-06-2022 T3, TOTAL 137 ng/dL Normal 71-180 [facility] Comment on above: Performed By: #### P OCGLUC #### [facility] [address] [address] [address] Ellie Smith FREE T3on 10-05-2022 FREE T3 3.03 pg/mlL Normal 2.18-3.98 [facility] Comment on above: Performed By: #### L ACT #### [facility] [address] [address] [address] Ellie Smith FREE T4on 10-05-2022 Free T4 [Mass/Vol] 1.02 ng/dL Normal 0.76-1.46 [facility] Comment on above: Performed By: #### F T4 #### [facility] [address] [place] [address] Dr. Ellie Smith TSHon 10-05-2022 TSH 0.032 uIU/mL Critically low 0.358-3.74 0 [facility] Comment on above: Performed By: #### L ACT #### [facility] [address] [place] [address] Dr. Ellie Smith Office Visit (Cardiology)on 08-24-2022 [...] Done: [id number] PMH: Coronary artery disease involving [place] coronary artery of [place] heart without angina pectoris Renew: Aspirin EC 81 MG Oral Tablet Delayed Release; TAKE 1 TABLET DAILY Renew: Clopidogrel Bisulfate 75 MG Oral Tablet; TAKE 1 TABLET BY MOUTH DAILY PMH: Coronary artery disease involving [place] coronary artery of [place] heart without angina pectoris, Hypertension, benign Renew: Losartan Potassium 100 MG Oral Tablet; TAKE 1 TABLET DAILY PMH: Coronary artery disease involving [place] coronary artery of [place] heart without angina pectoris, Mixed hyperlipidemia Renew: Atorvastatin Calcium 80 MG Oral Tablet; TAKE 1 TABLET AT BEDTIME SocHx: Former smoker Tobacco Use Screening; Status:Complete; Done: [id number] Patient Instructions Please bring all medicines, vitamins, [...] FOR CHEST PAIN.CALL 911 IF PAIN PERSISTS. INVENTORY CONTROL SPECIALIST Thyroid 60 MG Oral TabletTAKE 1 TABLET [...] HPI. Respirat (more content not included)... Normal [email or web address] Tobacco Screening.on 023 Adult depression screening assessment No [facility] [place] 250 DO Work Phone: Fall risk assessment a) No falls within the last year [facility] [place] 250 DO Work Phone: Tobacco use status [facility] b) No [facility] [place] 250 DO Work Phone: GLYCOHEMOGLOBIN A1Con 2022 ADA RECOMMENDATION SEE BELOW Normal [facility] Comment on above: Result Comment: ADA RECOMMENDED LIMIT 4.0 - 6.0 ADA THERAPEUTIC TARGET < 7.0 ACTION SUGGESTED > 7.0 Performed By: #### A 1C #### [facility] [address] [address] [address] Ellie Smith Glucose [Mass/Vol] 114 mg/dL Normal [facility] Comment on above: Performed By: #### A 1C #### [facility] [address] [place] [address] Dr. Ellie Smith HbA1c (Bld) [Mass fraction] 5.6 % Normal 4.5-6.2 [facility] Comment on above: Performed By: #### A 1C #### [facility] [address] [place] [address] Dr. Ellie Smith LIPID PROFILEon 08-15-2022 CHOL-HDL RATIO NORM SEE BELOW Normal [facility] Comment on above: Result Comment: 3.3 - 4.4 LOW RISK 4.4 - 7.1 AVERAGE RISK 7.1 - 11.0 MODERATE RISK >11.0 HIGH RISK Performed By: #### R EVRT3 #### [facility] [address] [place] [address] Dr. Ellie Smith Cholesterol [Mass/Vol] 116 mg/dL Normal <=200 [facility] Comment on above: Performed By: #### R EVRT3 #### [facility] [address] [place] [address] Dr. Ellie Smith Cholesterol in HDL [Mass/Vol] 60 mg/dL Normal 40-60 [facility] Comment on above: Performed By: #### R EVRT3 #### [facility] [address] [place] [address] Dr. Ellie Smith Cholesterol in LDL [Mass/Vol] 46.0 mg/dL Normal [facility] Comment on above: Performed By: #### R EVRT3 #### [facility] [address] [place] [address] Dr. Ellie Smith Cholesterol.total/Chol esterol in HDL [Mass ratio] 1.9 {ratio} Normal [facility] Comment on above: Performed By: #### R EVRT3 #### [facility] [address] [place] [address] Dr. Ellie Smith HDL NORMAL > or = 60 mg/dl - LO W CARDIOVASCULAR RISK <40 mg/dl - HIGH CARDIOVASCULAR RISK Normal [facility] Comment on above: Performed By: #### R EVRT3 #### [facility] [address] [place] [address] Dr. Ellie Smith LDL CALC NORMAL SEE BELOW Normal [facility] Comment on above: Result Comment: <100 mg/dl OPTIMAL 100 - 129 mg/dl NEAR OR ABOVE OPTIMAL 130 - 159 mg/dl BORDERLINE HIGH 160 - 189 mg/dl HIGH >190 mg/dl VERY HIGH Performed By: #### R EVRT3 #### [facility] [address] [place] [address] Dr. Elile Smith Triglyceride [Mass/Vol] 50 mg/dL Normal <=150 [facility] Comment on above: Performed By: #### R EVRT3 #### [facility] [address] [place] [address] Dr. Ellie Smith VLDL CALC 10.0 mg/dL Normal [facility] Comment on above: Performed By: #### R EVRT3 #### [facility] [address] [place] [address] Dr. Elile Smith PROF 14(COMP METB)on 023 Albumin [Mass/Vol] 3.9 g/dL Normal 3.4-5.0 [facility] Comment on above: Performed By: #### R EVRT3 #### [facility] [address] [place] [address] Dr. Ellie Smith Albumin/Globulin [Mass ratio] 1.2 {ratio} Normal [facility] Comment on above: Performed By: #### R EVRT3 #### [facility] [address] [place] [address] Dr. Ellie Smith ALP [Catalytic activity/Vol] 56 U/L Normal 46-116 [facility] Comment on above: Performed By: #### R EVRT3 #### [facility] [address] [place] [address] Dr. Ellie Smith ALT [Catalytic activity/Vol] 27 U/L Normal 14-59 [facility] Comment on above: Performed By: #### R EVRT3 #### [facility] [address] [place] [address] Dr. Ellie Smith Anion gap [Moles/Vol] 14.1 mmol/L Normal [facility] Comment on above: Performed By: #### R EVRT3 #### [facility] [address] [place] [address] Dr. Ellie Smith AST [Catalytic activity/Vol] 18 U/L Normal 15-37 [facility] Comment on above: Performed By: #### R EVRT3 #### [facility] [address] [place] [address] Dr. Ellie Smith Bilirubin [Mass/Vol] 0.4 mg/dL Normal 0.2-1.0 [facility] Comment on above: Performed By: #### R EVRT3 #### [facility] [address] [place] [address] Dr. Ellie Smith Calcium [Mass/Vol] 9.2 mg/dL Normal 8.5-10.1 [facility] Comment on above: Performed By: #### R EVRT3 #### [facility] [address] [place] [address] Dr. Ellie Smith Chloride [Moles/Vol] 106 mmol/L Normal 98-107 [facility] Comment on above: Performed By: #### R EVRT3 #### [facility] [address] [place] [address] Dr. Ellie Smith CO2 [Moles/Vol] 26.1 mmol/L Normal 21.0-32.0 [facility] Comment on above: Performed By: #### R EVRT3 #### [facility] [address] [place] [address] Dr. Ellie Smith Creatinine [Mass/Vol] 0.68 mg/dL Normal 0.55-1.02 [facility] Comment on above: Performed By: #### R EVRT3 #### [facility] [address] [place] [address] Dr. Ellie Smith EGFR-AF RUSSIAN >60 Normal >=60 [facility] Comment on above: Performed By: #### R EVRT3 #### [facility] [address] [place] [address] Dr. Ellie Smith EGFR-NON AF RUSSIAN >60 Normal >=60 [facility] Comment on above: Performed By: #### R EVRT3 #### [facility] [address] [address] [address] Ellie Smith Globulin (S) [Mass/Vol] 3.2 g/dL Normal [facility] Comment on above: Performed By: #### R EVRT3 #### [facility] [address] [address] [address] Ellie Smith Glucose [Mass/Vol] 99 mg/dL Normal 74-106 [facility] Comment on above: Performed By: #### R EVRT3 #### [facility] [address] [address] [address] Ellie Smith Potassium [Moles/Vol] 4.2 mmol/L Normal 3.5-5.1 [facility] Comment on above: Performed By: #### R EVRT3 #### [facility] [address] [address] [address] Ellie Smith Protein [Mass/Vol] 7.1 g/dL Normal 6.4-8.2 [facility] Comment on above: Performed By: #### R EVRT3 #### [facility] [address] [address] [address] Ellie Smith Sodium [Moles/Vol] 142 mmol/L Normal 136-145 [facility] Comment on above: Performed By: #### R EVRT3 #### [facility] [address] [address] [address] Ellie Smith Urea nitrogen [Mass/Vol] 16.0 mg/dL Normal 7.0-18.0 [facility] Comment on above: Performed By: #### R EVRT3 #### [facility] [address] [address] [address] Ellie Smith Urea nitrogen/Creatinine [Mass ratio] 23.5 mg/mg Normal [facility] Comment on above: Performed By: #### R EVRT3 #### [facility] [address] [address] [address] Ellie Smith REVERSE T3on 04-15-2022 Reverse T3, Serum 15.4 ng/dL Normal 9.2-24.1 [facility] Comment on above: Result Comment: This test was developed and its performance characteristics determined by [employer]. It has not been cleared or approved by the Food and Drug Administration. Performed By: #### L ACT #### [facility] [address] [place] [address] Dr. Ellie Smith T3, TOTAL (TRIIODOTHYRONINE) on 04-13-2022 T3, TOTAL 144 ng/dL Normal 71-180 [facility] Comment on above: Performed By: #### A 1C #### [facility] [address] [place] [address] Dr. Ellie Smith FREE T3on 04-12-2022 FREE T3 2.93 pg/mlL Normal 2.18-3.98 [facility] Comment on above: Performed By: #### T SH, FT3 #### [facility] [address] [place] [address] Dr. Ellie Smith FREE T4on 04-12-2022 Free T4 [Mass/Vol] 0.89 ng/dL Normal 0.76-1.46 [facility] Comment on above: Performed By: #### R EVRT3 #### [facility] [address] [place] [address] Dr. Ellie Smith TSHon 04-12-2022 TSH 0.116 uIU/mL Critically low 0.358-3.74 0 [facility] Comment on above: Performed By: #### T SH, FT3 #### [facility] [address] [place] [address] Dr. Ellie Smith LIPID PROFILEon 03-29-2022 CHOL-HDL RATIO NORM SEE BELOW Normal [facility] Comment on above: Result Comment: 3.3 - 4.4 LOW RISK 4.4 - 7.1 AVERAGE RISK 7.1 - 11.0 MODERATE RISK >11.0 HIGH RISK Performed By: #### A 1C #### [facility] [address] [place] [address] Dr. Ellie Smith Cholesterol [Mass/Vol] 102 mg/dL Normal <=200 [facility] Comment on above: Performed By: #### A 1C #### [facility] [address] [address] [address] Ellie Smith Cholesterol in HDL [Mass/Vol] 56 mg/dL Normal 40-60 [facility] Comment on above: Performed By: #### A 1C #### [facility] [address] [address] [address] Ellie Smith Cholesterol in LDL [Mass/Vol] 36.8 mg/dL Normal [facility] Comment on above: Performed By: #### A 1C #### [facility] [address] [address] [address] Ellie Smith Cholesterol.total/Chol esterol in HDL [Mass ratio] 1.8 {ratio} Normal [facility] Comment on above: Performed By: #### A 1C #### [facility] [address] [place] [address] Dr. Ellie Smtih HDL NORMAL > or = 60 mg/dl - LO W CARDIOVASCULAR RISK <40 mg/dl - HIGH CARDIOVASCULAR RISK Normal [facility] Comment on above: Performed By: #### A 1C #### [facility] [address] [address] [address] Ellie Smith LDL CALC NORMAL SEE BELOW Normal [facility] Comment on above: Result Comment: <100 mg/dl OPTIMAL 100 - 129 mg/dl NEAR OR ABOVE OPTIMAL 130 - 159 mg/dl BORDERLINE HIGH 160 - 189 mg/dl HIGH >190 mg/dl VERY HIGH Performed By: #### A 1C #### [facility] [address] [place] [address] Dr. Ellie Smith Triglyceride [Mass/Vol] 46 mg/dL Normal <=150 [facility] Comment on above: Performed By: #### A 1C #### [facility] [address] [address] [address] Ellie Smith VLDL CALC 9.2 mg/dL Normal [facility] Comment on above: Performed By: #### A 1C #### [facility] [address] [address] [address] Ellie Smith SGOTon 03-29-2022 AST [Catalytic activity/Vol] 17 U/L Normal 15-37 [facility] Comment on above: Performed By: #### A 1C #### [facility] [address] [address] [address] Ellie Smith [facility] 03-29-2022 ALT [Catalytic activity/Vol] 30 U/L Normal 14-59 [facility] Comment on above: Performed By: #### A 1C #### [facility] [address] [address] [address] 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 Hooks Jan 18, 2022: dCX PCI/[place] 2.5/34mm, 2.75/8mm mRCA PCI/[place] 3.0/12 AND 3.5/30mm Type B dissection Feb 03, 2022 Staged LAD PCI/[place] 2.25/26mm Diag2 provisional PTCA Daily activity 4 [...] Status:Complete; Done: 17Mar2022 Coronary artery disease involving fond [place] coronary artery of [place] heart without angina pectoris, Echocardiogram abnormal Disability [...] FOR CHES (more content not included)... Normal [email or web address] Tobacco Screening.on 022 Adult depression screening assessment No [facility] [employer] [place] 600 DO Work Phone: Fall risk assessment a) [facility] the [facility] [place] [address] DO Work Phone: Tobacco use status [facility] b) No [facility] [employer] [place] 600 DO Work Phone: PHQ-2 VITALSon 02-15-2022 Adult depression screening assessment Yes [facility] [place] 250 DO Work Phone: Adult depression screening assessment No [facility] [place] 250 DO Work Phone: Fall risk assessment a) No falls within the last year [facility] [place] 250 DO Work Phone: Tobacco use status [facility] b) No [facility] [place] 250 DO Work Phone: PHQ-2 VITALS 0-Not at all [facility] [place] 250 DO Work Phone: PHQ-2 VITALS 3-Nearly every day [facility] [place] 250 DO Work Phone: PHQ-2 VITALS 1-Several days [facility]Sandu jayne 250 DO Work Phone: PHQ-2 VITALS Very Difficult -[facility] [place] 250 DO Work Phone: Activated partial thrombopla stin time (aPTT) in platelet poor plasma by coagulation aOrdered By: Diony Hooks on 02-03-2022 aPTT Coag (PPP) [Time] 31.4 s 25.1-36.5 [facility] Basophils Auto (Bld) [#/Vol] Ordered By: Diony Hooks on 02-03-2022 Basophils (Bld) [#/Vol] 0.1 10*3/uL 0.0-0.2 [facility] Basophils/100 WBC Auto (Bld) Ordered By: Diony Hooks on 02-03-2022 Basophils/100 WBC (Bld) 0.6 % . [facility] Blood hemoglobin measurement (mass/volume)Ordered By: Diony Hooks on 02-03-2022 Hemoglobin (Bld) [Mass/Vol] 14.3 g/dL 11.8-15.4 [facility] Blood leukocytes automated c ount (number/volume)Ordered By: Diony Hooks on 02-03-2022 WBC (Bld) [#/Vol] 12.0 10*3/uL 4.5-11.0 [facility] Eosinophils Auto (Bld) [#/Vo l]Ordered By: Diony Hooks on 02-03-2022 Eosinophils (Bld) [#/Vol] 0.4 10*3/uL 0.0-0.45 [facility] Eosinophils/100 WBC Auto (Bl d)Ordered By: Diony Hooks on 02-03-2022 Eosinophils/100 WBC (Bld) 3.4 % . [facility] Erythrocyte distribution wid th Auto (RBC) [Ratio]Ordered By: Diony Hooks on 02-03-2022 Erythrocyte distribution width (RBC) [Ratio] 14.4 % 11.9-15.3 [facility] Hematocrit Auto (Bld) [Volum e fraction]Ordered By: Diony Hooks on 02-03-2022 Hematocrit (Bld) [Volume fraction] 42.4 % 34.0-46.4 [facility] - CoagulationOrde red By: Diony Hooks on 02-03-2022 PT Coag (PPP) [Time] 10.9 s 9.0-12.9 [facility] - Hematology and Cell countsOrdered By: Diony Hooks on 02-03-2022 Nucleated RBC/100 WBC (Bld) [Ratio] 0.0 % 0-0.5 [facility] Lymphocytes Auto (Bld) [#/Vo l]Ordered By: Diony Hooks on 02-03-2022 Lymphocytes (Bld) [#/Vol] 2.1 10*3/uL 1.00-4.8 [facility] Lymphocytes/100 WBC Auto (Bl d)Ordered By: Diony Hooks on 02-03-2022 Lymphocytes/100 WBC (Bld) 17.5 % . [facility] MCH Auto (RBC) [Entitic mass ]Ordered By: Diony Hooks on 02-03-2022 MCH (RBC) [Entitic mass] 31.5 pg 24.7-34.3 [facility] MCHC Auto (RBC) [Mass/Vol]Or dered By: Diony Hooks on 02-03-2022 MCHC (RBC) [Mass/Vol] 33.8 g/dL 32.0-35.[address] [facility] MCV Auto (RBC) [Entitic vol] Ordered By: Diony Hooks on 02-03-2022 MCV (RBC) [Entitic vol] 93.2 fL 80-100 [facility] Monocytes Auto (Bld) [#/Vol] Ordered By: Diony Hooks on 02-03-2022 Monocytes (Bld) [#/Vol] 0.5 10*3/uL 0.0-0.8 [facility] Monocytes/100 WBC Auto (Bld) Ordered By: Diony Hooks on 02-03-2022 Monocytes/100 WBC (Bld) 4.4 % . [facility] Neutrophils Auto (Bld) [#/Vo l]Ordered By: Diony Hooks on 02-03-2022 Neutrophils (Bld) [#/Vol] 8.9 10*3/uL 1.8-7.7 [facility] Neutrophils/100 WBC Auto (Bl d)Ordered By: Diony Hooks on 02-03-2022 Neutrophils/100 WBC (Bld) 74.1 % . [facility] Platelet mean volume Auto (B ld) [Entitic vol]Ordered By: Diony Hooks on 02-03-2022 Platelet mean volume (Bld) [Entitic vol] 7.5 fL 6.3-10.7 [facility] Platelet poor plasma interna tional normalized ratio (INR) by coagulation assay (relatOrdered By: Diony Hooks on 02-03-2022 INR Coag (PPP) [Relative time] 1.0 {INR} [facility] Comment on above: INR Therapeutic Rang [...] 02-03-2022 Platelets (Bld) [#/Vol] 337 10*3/uL 150-450 [facility] RBC Auto (Bld) [#/Vol]Ordere d By: Diony Hooks on 02-03-2022 RBC (Bld) [#/Vol] 4.56 10*6/uL 3.60-5.00 [facility] COVID-19 SOFIAOrdered By: St anup Hooks on 02-01-2022 SARS-CoV+SARS-CoV-2 (COVID-19) Ag IA.rapid Ql (Resp) Negative Negative [facility] Comment on above: This is a duplicate Kasey SARS Antigen (JERRY) result to be used for statistical tracking purpose only. Creatinine and Glomerular fi ltration rate.predicted panel (S/P/Bld)Ordered By: Diony Hooks on 02-01-2022 Creatinine [Mass/Vol] 0.85 mg/dL 0.44-1.[address] [facility] Estimated glomerular filtrat ion rate (GFR) non- AmericanOrdered By: Diony Hooks on 02-01-2022 GFR/1.73 sq M.predicted among non-blacks MDRD (S/P/Bld) [Vol rate/Area] > 60 mL/Min [facility] No Panel InformationOrdered By: Diony Hooks on 02-01-2022 Estimated GFR () > 60 mL/Min [facility] Comment on above: GFR estimated refere nce range: According to KDOQI guidelines, <60 ml/min/1.73m2 is sufficient to diagnose a patient with chronic kidney disease. Pharmacy Creatinine Clearance (Chem N/A [facility] SARS Antigen (LFIA) [facility] Serum or plasma calcium norma urement (mass/volume)Ordered By: Diony Hooks on 02-01-2022 Calcium [Mass/Vol] 9.7 mg/dL 8.2-10.[address] [facility] Serum or plasma chloride tam surement (moles/volume)Ordered By: Diony Hooks on 02-01-2022 Chloride [Moles/Vol] 97 mmol/L 95-114 [facility] Serum or plasma glucose norma urement (mass/volume)Ordered By: Diony Hooks on 02-01-2022 Glucose [Mass/Vol] 86 mg/dL 70-[address] [facility] Comment on above: ADA recommended refe rence range Random Glucose Reference Range is dependent on time and content of last meal. Glucose of more than 200 mg/dL in a nonstressed, ambulatory subject supports the diagnosis of Diabetes Mellitus. Serum or plasma potassium me asurement (moles/volume)Ordered By: Diony Hooks on 02-01-2022 Potassium [Moles/Vol] 4.7 mmol/L 3.5-5.[address] [facility] Serum or plasma sodium measu rement (moles/volume)Ordered By: Diony Hooks on 02-01-2022 Sodium [Moles/Vol] 132 mmol/L 136-[address] [facility] Serum or plasma total carbon dioxide measurement (moles/volume)Ordered By: Diony Hooks on 02-01-2022 CO2 [Moles/Vol] 26.0 mmol/L 22.0-30.0 [facility] Serum or plasma urea nitroge n measurement (mass/volume)Ordered By: Diony Hooks on 02-01-2022 Urea nitrogen [Mass/Vol] 10 mg/dL 03-04 [facility] BNPon 01-28-2022 Natriuretic peptide B (Bld) [Mass/Vol] 945.0 pg/mL Normal <=1,800.0 [facility] Comment on above: Performed By: #### R [id number] #### [facility] [address] [place] [address] Dr. Ellie Smith CARDIAC RAQUEL ADMITon 022 CK [Catalytic activity/Vol] 122 U/L Normal 26-192 [facility] Comment on above: Performed By: #### R [id number] #### [facility] [address] [address] [address] Ellie Smith CK.MB [Mass/Vol] 0.65 ng/mL Normal <=3.60 [facility] Comment on above: Performed By: #### R EVRT3 #### [facility] [address] [place] [address] Dr. Ellie Smith HSTROP 63.5 pg/mL Critically high 4.0-51.3 [facility] Comment on above: Result Comment: CUT- OFF POINTS HAVE BEEN ESTABLISHED BASED ON THE FOURTH UNIVERSAL DEFINITIONS OF MYOCARDIAL INFARCTION. THE UPPER REFERENCE LIMIT (URL) OF TROPONIN, DEFINED THE 99TH PERCENTILE OF cTnI DISTRIBUTION IN A REFERENCE POPULATION, HAS BEEN CONFIRMED THE DECISION THRESHOLD FOR MD DIAGNOSIS. Performed By: #### R [id number] #### [facility] [address] [place] [address] Dr. Ellie Smith MATEO 26 ng/mL Normal 9-82 [facility] Comment on above: Performed By: #### R EVRT3 #### [facility] [address] [place] [address] Dr. Ellie Smith CBC AUTO DIFFon 01-28-2022 BASO # 0.1 103/ul Normal 0.0-0.1 [facility] Comment on above: Performed By: #### L ACT #### [facility] [address] [place] [address] Dr. Ellie Smith Basophils/100 WBC (Bld) 0.6 % Normal 0.2-2.0 [facility] Comment on above: Performed By: #### L ACT #### [facility] [address] [place] [address] Dr. Ellie Smith EO # 0.4 103/ul Normal 0.0-0.7 [facility] Comment on above: Performed By: #### L ACT #### [facility] [address] [place] [address] Dr. Ellie Smith Eosinophils/100 WBC (Bld) 4.4 % Normal 0.9-7.0 [facility] Comment on above: Performed By: #### L ACT #### [facility] [address] [place] [address] Dr. Ellie Smith Erythrocyte distribution width (RBC) [Ratio] 13.7 % Normal 11.0-15.0 [facility] Comment on above: Performed By: #### L ACT #### [facility] [address] [place] [address] Dr. Ellie Smith Hematocrit (Bld) [Volume fraction] 35.8 % Critically low 36.0-48.0 [facility] Comment on above: Performed By: #### L ACT #### [facility] [address] [place] [address] Dr. Ellie Smith Hemoglobin (Bld) [Mass/Vol] 11.9 g/dL Critically low 12.0-16.0 [facility] Comment on above: Performed By: #### L ACT #### [facility] [address] [place] [address] Dr. Ellie Smith IG # 0.03 10e3/ul Normal 0.00-0.03 [facility] Comment on above: Performed By: #### L ACT #### [facility] [address] [place] [address] Dr. Ellie Smith IG % 0.4 % Normal 0.0-0.5 [facility] Comment on above: Performed By: #### L ACT #### [facility] [address] [place] [address] Dr. Ellie Smith LYMPH # 1.7 103/ul Normal 1.2-3.8 [facility] Comment on above: Performed By: #### L ACT #### [facility] [address] [place] [address] Dr. Ellie Smith Lymphocytes/100 WBC (Bld) 19.6 % Critically low 20.5-60.0 [facility] Comment on above: Performed By: #### L ACT #### [facility] [address] [place] [address] Dr. Ellie Smith MANUAL DIFF REQ NO Normal [facility] Comment on above: Performed By: #### L ACT #### [facility] [address] [place] [address] Dr. Ellie Smith MCH (RBC) [Entitic mass] 31.4 pg Normal 26.7-34.0 [facility] Comment on above: Performed By: #### L ACT #### [facility] [address] [place] [address] Dr. Ellie Smith MCHC (RBC) [Mass/Vol] 33.2 g/dL Normal 29.9-35.2 [facility] Comment on above: Performed By: #### L ACT #### [facility] [address] [place] [address] Dr. Ellie Smith MCV (RBC) [Entitic vol] 94.5 fL Normal 81.0-99.0 [facility] Comment on above: Performed By: #### L ACT #### [facility] [address] [place] [address] Dr. Ellie Smith MONO # 0.5 103/ul Normal 0.3-0.8 [facility] Comment on above: Performed By: #### L ACT #### [facility] [address] [place] [address] Dr. Ellie Smith Monocytes/100 WBC (Bld) 5.4 % Normal 1.7-12.0 [facility] Comment on above: Performed By: #### L ACT #### [facility] [address] [place] [address] Dr. Ellie Smith NEUT # 6.0 103/ul Normal 1.4-6.5 [facility] Comment on above: Performed By: #### L ACT #### [facility] [address] [place] [address] Dr. Ellie Smith Neutrophils/100 WBC (Bld) 69.6 % Normal 43.0-75.0 [facility] Comment on above: Performed By: #### L ACT #### [facility] [address] [place] [address] Dr. Ellie Smith Platelet mean volume (Bld) [Entitic vol] 9.5 fL Normal 9.5-13.5 [facility] Comment on above: Performed By: #### L ACT #### [facility] [address] [place] [address] Dr. Ellie Smith PLT 252 103/ul Normal 150-450 [facility] Comment on above: Performed By: #### L ACT #### [facility] [address] [place] [address] Dr. Ellie Smith RBC 3.79 106/ul Critically low 4.20-5.40 [facility] Comment on above: Performed By: #### L ACT #### [facility] [address] [place] [address] Dr. Ellie Smith WBC 8.6 103/ul Normal 4.0-11.0 [facility] Comment on above: Performed By: #### L ACT #### [facility] [address] [place] [address] Dr. Ellie Smith POINT OF CARE GLUCOSEon 01-10 Glucose [Mass/Vol] 93 mg/dL Normal 74-106 [facility] Comment on above: Performed By: #### A 1C #### [facility] [address] [place] [address] Dr. Ellie Smith PROF 14(COMP METB)on 022 Albumin [Mass/Vol] 3.2 g/dL Critically low 3.4-5.0 [facility] Comment on above: Performed By: #### R EVRT3 #### [facility] [address] [place] [address] Dr. Ellie Smith Albumin/Globulin [Mass ratio] 1.1 {ratio} Normal [facility] Comment on above: Performed By: #### R EVRT3 #### [facility] [address] [address] [address] Ellie Smith ALP [Catalytic activity/Vol] 52 U/L Normal 46-116 [facility] Comment on above: Performed By: #### R EVRT3 #### [facility] [address] [place] [address] Dr. Ellie Smith ALT [Catalytic activity/Vol] 52 U/L Normal 14-59 [facility] Comment on above: Performed By: #### R EVRT3 #### [facility] [address] [address] [address] Ellie Smith Anion gap [Moles/Vol] 9.7 mmol/L Normal [facility] Comment on above: Performed By: #### R EVRT3 #### [facility] [address] [place] [address] Dr. Ellie Smith AST [Catalytic activity/Vol] 22 U/L Normal 15-37 [facility] Comment on above: Performed By: #### R EVRT3 #### [facility] [address] [place] [address] Dr. Ellie Smith Bilirubin [Mass/Vol] 0.3 mg/dL Normal 0.2-1.0 [facility] Comment on above: Performed By: #### R EVRT3 #### [facility] [address] [place] [address] Dr. Ellie Smith Calcium [Mass/Vol] 8.4 mg/dL Critically low 8.5-10.1 [facility] Comment on above: Performed By: #### R EVRT3 #### [facility] [address] [place] [address] Dr. Ellie Smith Chloride [Moles/Vol] 104 mmol/L Normal 98-107 [facility] Comment on above: Performed By: #### R EVRT3 #### [facility] [address] [place] [address] Dr. Ellie Smith CO2 [Moles/Vol] 25.5 mmol/L Normal 21.0-32.0 [facility] Comment on above: Performed By: #### R EVRT3 #### [facility] [address] [place] [address] Dr. Ellie Smith Creatinine [Mass/Vol] 0.71 mg/dL Normal 0.55-1.02 [facility] Comment on above: Performed By: #### R EVRT3 #### [facility] [address] [place] [address] Dr. Ellie Smith EGFR-AF RUSSIAN >60 Normal >=60 [facility] Comment on above: Performed By: #### R EVRT3 #### [facility] [address] [address] [address] Ellie Smith EGFR-NON AF RUSSIAN >60 Normal >=60 [facility] Comment on above: Performed By: #### R EVRT3 #### [facility] [address] [place] [address] Dr. Ellie Smith Globulin (S) [Mass/Vol] 2.9 g/dL Normal [facility] Comment on above: Performed By: #### R EVRT3 #### [facility] [address] [place] [address] Dr. Ellie Smith Glucose [Mass/Vol] 102 mg/dL Normal 74-106 [facility] Comment on above: Performed By: #### R EVRT3 #### [facility] [address] [place] [address] Dr. Ellie Smith Potassium [Moles/Vol] 4.2 mmol/L Normal 3.5-5.1 [facility] Comment on above: Performed By: #### R EVRT3 #### [facility] [address] [place] [address] Dr. Ellie Smith Protein [Mass/Vol] 6.1 g/dL Critically low 6.4-8.2 Th [facility] Comment on above: Performed By: #### R EVRT3 #### [facility] [address] [place] [address] Dr. Ellie Smith Sodium [Moles/Vol] 135 mmol/L Critically low 136-145 [facility] Comment on above: Performed By: #### R EVRT3 #### [facility] [address] [place] [address] Dr. Ellie Smith Urea nitrogen [Mass/Vol] 11.0 mg/dL Normal 7.0-18.0 [facility] Comment on above: Performed By: #### R EVRT3 #### [facility] [address] [place] [address] Dr. Ellie Smith Urea nitrogen/Creatinine [Mass ratio] 15.5 mg/mg Normal [facility] Comment on above: Performed By: #### R EVRT3 #### [facility] [address] [place] [address] Dr. Ellie Smith CARDIAC RAQUEL 3-6on 2 CK [Catalytic activity/Vol] 192 U/L Normal 26-192 [facility] Comment on above: Performed By: #### L ACT #### [facility] [address] [place] [address] Dr. Ellie Smith CK.MB [Mass/Vol] 0.70 ng/mL Normal <=3.60 [facility] Comment on above: Performed By: #### L ACT #### [facility] [address] [place] [address] Dr. Ellie Smith HSTROP 88.8 pg/mL Critically high 4.0-51.3 [facility] Comment on above: Result Comment: CUT- OFF POINTS HAVE BEEN ESTABLISHED BASED ON THE FOURTH UNIVERSAL DEFINITIONS OF MYOCARDIAL INFARCTION. THE UPPER REFERENCE LIMIT (URL) OF TROPONIN, DEFINED THE 99TH PERCENTILE OF cTnI DISTRIBUTION IN A REFERENCE POPULATION, HAS BEEN CONFIRMED THE DECISION THRESHOLD FOR MD DIAGNOSIS. Performed By: #### L ACT #### [facility] [address] [place] [address] Dr. Ellie Smith CK [Catalytic activity/Vol] 213 U/L Critically high 26-192 [facility] Comment on above: Performed By: #### P OCGLUC #### [facility] [address] [place] [address] Dr. Ellie Smith CK.MB [Mass/Vol] 0.90 ng/mL Normal <=3.60 [facility] Comment on above: Performed By: #### P OCGLUC #### [facility] [address] [place] [address] Dr. Ellie Smith HSTROP 108.1 pg/mL Critically high 4.0-51.3 [facility] Comment on above: Result Comment: CUT- OFF POINTS HAVE BEEN ESTABLISHED BASED ON THE FOURTH UNIVERSAL DEFINITIONS OF MYOCARDIAL INFARCTION. THE UPPER REFERENCE LIMIT (URL) OF TROPONIN, DEFINED THE 99TH PERCENTILE OF cTnI DISTRIBUTION IN A REFERENCE POPULATION, HAS BEEN CONFIRMED THE DECISION THRESHOLD FOR MD DIAGNOSIS. repeated Performed By: #### P OCGLUC #### [facility] [address] [place] [address] Dr. Ellie Smith CBC AUTO DIFFon 01-27-2022 BASO # 0.1 103/ul Normal 0.0-0.1 [facility] Comment on above: Performed By: #### P OCGLUC #### [facility] [address] [place] [address] Dr. Ellie Smith Basophils/100 WBC (Bld) 0.5 % Normal 0.2-2.0 [facility] Comment on above: Performed By: #### P OCGLUC #### [facility] [address] [place] [address] Dr. Ellie Smith EO # 0.4 103/ul Normal 0.0-0.7 [facility] Comment on above: Performed By: #### P OCGLUC #### [facility] [address] [place] [address] Dr. Ellie Smith Eosinophils/100 WBC (Bld) 3.2 % Normal 0.9-7.0 [facility] Comment on above: Performed By: #### P OCGLUC #### [facility] [address] [place] [address] Dr. Ellie Smith Erythrocyte distribution width (RBC) [Ratio] 13.7 % Normal 11.0-15.0 [facility] Comment on above: Performed By: #### P OCGLUC #### [facility] [address] [place] [address] Dr. Ellie Smith Hematocrit (Bld) [Volume fraction] 40.5 % Normal 36.0-48.0 [facility] Comment on above: Performed By: #### P OCGLUC #### [facility] [address] [place] [address] Dr. Ellie Smith Hemoglobin (Bld) [Mass/Vol] 13.4 g/dL Normal 12.0-16.0 [facility] Comment on above: Performed By: #### P OCGLUC #### [facility] [address] [place] [address] Dr. Ellie Smith IG # 0.04 10e3/ul Critically high 0.00-0.03 [facility] Comment on above: Performed By: #### P OCGLUC #### [facility] [address] [place] [address] Dr. Ellie Smith IG % 0.3 % Normal 0.0-0.5 [facility] Comment on above: Performed By: #### P OCGLUC #### [facility] [address] [place] [address] Dr. Ellie Smith LYMPH # 2.4 103/ul Normal 1.2-3.8 [facility] Comment on above: Performed By: #### P OCGLUC #### [facility] [address] [place] [address] Dr. Ellie Smith Lymphocytes/100 WBC (Bld) 18.6 % Critically low 20.5-60.0 [facility] Comment on above: Performed By: #### P OCGLUC #### [facility] [address] [place] [address] Dr. Ellie Smith MANUAL DIFF REQ NO Normal [facility] Comment on above: Performed By: #### P OCGLUC #### [facility] [address] [place] [address] Dr. Ellie Smith MCH (RBC) [Entitic mass] 31.0 pg Normal 26.7-34.0 [facility] Comment on above: Performed By: #### P OCGLUC #### [facility] [address] [place] [address] Dr. Ellie Smith MCHC (RBC) [Mass/Vol] 33.1 g/dL Normal 29.9-35.2 [facility] Comment on above: Performed By: #### P OCGLUC #### [facility] [address] [place] [address] Dr. Ellie Smith MCV (RBC) [Entitic vol] 93.8 fL Normal 81.0-99.0 [facility] Comment on above: Performed By: #### P OCGLUC #### [facility] [address] [place] [address] Dr. Ellie Smith MONO # 0.7 103/ul Normal 0.3-0.8 [facility] Comment on above: Performed By: #### P OCGLUC #### [facility] [address] [place] [address] Dr. Ellie Smith Monocytes/100 WBC (Bld) 5.5 % Normal 1.7-12.0 [facility] Comment on above: Performed By: #### P OCGLUC #### [facility] [address] [place] [address] Dr. Ellie Smith NEUT # 9.1 103/ul Critically high 1.4-6.5 [facility] Comment on above: Performed By: #### P OCGLUC #### [facility] [address] [place] [address] Dr. Ellie Smith Neutrophils/100 WBC (Bld) 71.9 % Normal 43.0-75.0 [facility] Comment on above: Performed By: #### P OCGLUC #### [facility] [address] [place] [address] Dr. Ellie Smith Platelet mean volume (Bld) [Entitic vol] 9.6 fL Normal 9.5-13.5 [facility] Comment on above: Performed By: #### P OCGLUC #### [facility] [address] [place] [address] Dr. Ellie Smith PLT 307 103/ul Normal 150-450 [facility] Comment on above: Performed By: #### P OCGLUC #### [facility] [address] [place] [address] Dr. Ellie Smith RBC 4.32 106/ul Normal 4.20-5.40 [facility] Comment on above: Performed By: #### P OCGLUC #### [facility] [address] [place] [address] Dr. Ellie Smith WBC 12.6 103/ul Critically high 4.0-11.0 [facility] Comment on above: Performed By: #### P OCGLUC #### [facility] [id number] Ellie Smith CT ABD/PELVIS WO CONon [...] JONA [place] Date: 2022-01-27 02:44 Normal [facility] CTA CHEST WO W CONon 022 [...] JONA [place] Date: 2022-01-27 03:46 Normal [facility] Covid-19 PCR (CVDTB)on 01-10 SARS-CoV-2 (COVID-19) RNA MEI+probe Ql (Unsp spec) Not detected Normal NOT DETECTED [facility] Comment on above: Result Comment: When [...] for this test is supported by the [place] of [employer] and Human Service's declaration that [...] used). Performed By: #### R EVRT3 #### [facility] [address] [place] [address] Dr. Ellie Smith D-DIMERon 01-27-2022 D-DIMER 0.71 mg/L FEU Critically high <=0.59 [facility] Comment on above: Performed By: #### L ACT #### [facility] [address] [place] [address] Dr. Ellie Smith D-DIMER COMMENTS SEE BELOW Normal [facility] Comment on above: Result [...] hospitalization. Performed By: #### L ACT #### [facility] [address] [place] [address] Dr. Ellie Smith ER URINE PROFILEon 2 Bilirubin Ql (U) Negative Normal NEGATIVE [facility] Comment on above: Performed By: #### P OCGLUC #### [facility] [address] [place] [address] Dr. Ellie Smith Clarity (U) CLEAR Normal CLEAR [facility] Comment on above: Performed By: #### P OCGLUC #### [facility] [address] [place] [address] Dr. Ellie Smith Color (U) LT. YELLOW Normal YELLOW [facility] Comment on above: Performed By: #### P OCGLUC #### [facility] [address] [place] [address] Dr. Ellie Smith ERUANATD A micrscopic examina tion will be performed if indicated. Normal [facility] Comment on above: Performed By: #### P OCGLUC #### [facility] [address] [place] [address] Dr. Ellie Smith Glucose Ql (U) Negative Normal NEGATIVE [facility] Comment on above: Performed By: #### P OCGLUC #### [facility] [address] [place] [address] Dr. Ellie Smith Hemoglobin Ql (U) Negative Normal NEGATIVE [facility] Comment on above: Performed By: #### P OCGLUC #### [facility] [address] [place] [address] Dr. Ellie Smith Ketones Ql (U) Negative Normal NEGATIVE [facility] Comment on above: Performed By: #### P OCGLUC #### [facility] [address] [place] [address] Dr. Ellie Smith LEUKOCYTES Negative Normal NEGATIVE [facility] Comment on above: Performed By: #### P OCGLUC #### [facility] [address] [place] [address] Dr. Ellie Smith Nitrite Ql (U) Negative Normal NEGATIVE [facility] Comment on above: Performed By: #### P OCGLUC #### [facility] [address] [place] [address] Dr. Ellie Smith pH (U) 6.0 [pH] Normal 5-9 [facility] Comment on above: Performed By: #### P OCGLUC #### [facility] [address] [place] [address] Dr. Ellie Smith SPEC GRAVITY 1.010 Normal 1.005-<=1. 025 [facility] Comment on above: Performed By: #### P OCGLUC #### [facility] [address] [place] [address] Dr. Ellie Smith UA PROTEIN Negative Normal NEGATIVE/ TRACE [facility] Comment on above: Performed By: #### P OCGLUC #### [facility] [address] [place] [address] Dr. Ellie Smith UR MICRO IND NOT INDICATED Normal [facility] Comment on above: Performed By: #### P OCGLUC #### [facility] [address] [place] [address] Dr. Ellie Smith Urobilinogen Qn (U) 0.2 {Tamia'U}/dL Normal 0.2 - 1. 0 [facility] Comment on above: Performed By: #### P OCGLUC #### [facility] [address] [address] [address] Ellie Smith LACTATE/LACTIC ACIDon 2021 Lactate [Moles/Vol] 1.8 mmol/L Normal 0.4-1.9 [facility] Comment on above: Performed By: #### L ACT #### [facility] [address] [place] [address] Dr. Ellie Smith POINT OF CARE GLUCOSEon 01-10 Glucose [Mass/Vol] 132 mg/dL Critically high 74-106 [facility] Comment on above: Performed By: #### L ACT #### [facility] [address] [place] [address] Dr. Ellie Smith Glucose [Mass/Vol] 99 mg/dL Normal 74-106 [facility] Comment on above: Performed By: #### L ACT #### [facility] [address] [place] [address] Dr. Ellie Smith Glucose [Mass/Vol] 117 mg/dL Critically high 74-106 [facility] Comment on above: Performed By: #### P OCGLUC #### [facility] [address] [place] [address] Dr. Ellie Smith Glucose [Mass/Vol] 105 mg/dL Normal 74-106 [facility] Comment on above: Performed By: #### L ACT #### [facility] [address] [place] [address] Dr. Ellie Smith PROF 14(COMP METB)on 022 Albumin [Mass/Vol] 3.6 g/dL Normal 3.4-5.0 [facility] Comment on above: Performed By: #### C MP #### [facility] [address] [place] [address] Dr. Ellie Smith Albumin/Globulin [Mass ratio] 1.1 {ratio} Normal [facility] Comment on above: Performed By: #### C MP #### [facility] [address] [place] [address] Dr. Ellie Smith ALP [Catalytic activity/Vol] 61 U/L Normal 46-116 [facility] Comment on above: Performed By: #### C MP #### [facility] [address] [place] [address] Dr. Ellie Smith ALT [Catalytic activity/Vol] 53 U/L Normal 14-59 [facility] Comment on above: Performed By: #### C MP #### [facility] [address] [place] [address] Dr. Ellie Smith Anion gap [Moles/Vol] 14.7 mmol/L Normal [facility] Comment on above: Performed By: #### C MP #### [facility] [address] [place] [address] Dr. Ellie Smith AST [Catalytic activity/Vol] 43 U/L Critically high 15-37 [facility] Comment on above: Performed By: #### C MP #### [facility] [address] [place] [address] Dr. Ellie Smith Bilirubin [Mass/Vol] 0.4 mg/dL Normal 0.2-1.0 [facility] Comment on above: Performed By: #### C MP #### [facility] [address] [place] [address] Dr. Ellie Smith Calcium [Mass/Vol] 8.6 mg/dL Normal 8.5-10.1 [facility] Comment on above: Performed By: #### C MP #### [facility] [address] [place] [address] Dr. Ellie Smith Chloride [Moles/Vol] 99 mmol/L Normal 98-107 [facility] Comment on above: Performed By: #### C MP #### [facility] [address] [place] [address] Dr. Ellie Smith CO2 [Moles/Vol] 22.4 mmol/L Normal 21.0-32.0 [facility] Comment on above: Performed By: #### C MP #### [facility] [address] [place] [address] Dr. Ellie Smith Creatinine [Mass/Vol] 0.90 mg/dL Normal 0.55-1.02 [facility] Comment on above: Performed By: #### C MP #### [facility] [address] [address] [address] Ellie Smith EGFR-AF RUSSIAN >60 Normal >=60 [facility] Comment on above: Performed By: #### C MP #### [facility] [address] [address] [address] Ellie Smith EGFR-NON AF RUSSIAN 60 mL/min/1.73m2 Normal >=60 [facility] Comment on above: Performed By: #### C MP #### [facility] [address] [address] [address] Ellie Smith Globulin (S) [Mass/Vol] 3.3 g/dL Normal [facility] Comment on above: Performed By: #### C MP #### [facility] [address] [place] [address] Dr. Ellie Smith Glucose [Mass/Vol] 108 mg/dL Critically high 74-106 [facility] Comment on above: Performed By: #### C MP #### [facility] [address] [address] [address] Ellie Smith Potassium [Moles/Vol] 4.1 mmol/L Normal 3.5-5.1 [facility] Comment on above: Performed By: #### C MP #### [facility] [address] [address] [address] Ellie Smith Protein [Mass/Vol] 6.9 g/dL Normal 6.4-8.2 [facility] Comment on above: Performed By: #### C MP #### [facility] [address] [address] [address] Ellie Smith Sodium [Moles/Vol] 132 mmol/L Critically low 136-145 [facility] Comment on above: Performed By: #### C MP #### [facility] [address] [address] [address] Ellie Smith Urea nitrogen [Mass/Vol] 15.0 mg/dL Normal 7.0-18.0 [facility] Comment on above: Performed By: #### C MP #### [facility] [address] [place] [address] Dr. Ellie Smith Urea nitrogen/Creatinine [Mass ratio] 16.7 mg/mg Normal [facility] Comment on above: Performed By: #### C MP #### [facility] [address] [place] [address] Dr. Ellie Smith PROTIMEon 01-27-2022 INR Coag (PPP) [Relative time] 1.00 {INR} Normal [facility] Comment on above: Performed By: #### P OCGLUC #### [facility] [address] [place] [address] Dr. Ellie Smith INR GUIDELINES SEE BELOW Normal [facility] Comment on above: Result Comment: HIMANSHU RED INR: 2.0 - 3.0 CONDITIONS NOT LISTED BELOW 2.5 - 3.5 FOR PROSTHETIC HEART VALVE REPLACEMENT 2.5 - 3.5 RECURRENT THROMBOSIS Performed By: #### P OCGLUC #### [facility] [address] [place] [address] Dr. Ellie Smith PT Coag (PPP) [Time] 10.8 s Normal 9.0-11.6 [facility] Comment on above: Performed By: #### P OCGLUC #### [facility] [address] [place] [address] Dr. Ellie Smith PTTon 01-27-2022 aPTT Coag (Bld) [Time] 28.6 s Normal 22.3-36.2 [facility] Comment on above: Performed By: #### L ACT #### [facility] [address] [place] [address] Dr. Ellie Smith TROPONIN, HIGH SENSITIVITYon 01-27-2022 HSTROP 116.4 pg/mL Critically high 4.0-51.3 [facility] Comment on above: Result Comment: CUT- OFF POINTS HAVE BEEN ESTABLISHED BASED ON THE FOURTH UNIVERSAL DEFINITIONS OF MYOCARDIAL INFARCTION. THE UPPER REFERENCE LIMIT (URL) OF TROPONIN, DEFINED THE 99TH PERCENTILE OF cTnI DISTRIBUTION IN A REFERENCE POPULATION, HAS BEEN CONFIRMED THE DECISION THRESHOLD FOR MD DIAGNOSIS. Performed By: #### A 1C #### [facility] [address] [place], [place] [address] Dr. Ellie Smith HSTROP 151.5 pg/mL Critically high 4.0-51.3 [facility] Comment on above: Result Comment: CUT- OFF POINTS HAVE BEEN ESTABLISHED BASED ON THE FOURTH UNIVERSAL DEFINITIONS OF MYOCARDIAL INFARCTION. THE UPPER REFERENCE LIMIT (URL) OF TROPONIN, DEFINED THE 99TH PERCENTILE OF cTnI DISTRIBUTION IN A REFERENCE POPULATION, HAS BEEN CONFIRMED THE DECISION THRESHOLD FOR MD DIAGNOSIS. Performed By: #### P OCGLUC #### [facility] [id number] Ellie Smith XR CHEST 1 Von [...] JONA [place] Date: 2022-01-27 01:08 Normal [facility] Albumin [Mass/volume] in Ser um or PlasmaOrdered By: Diony Hooks on 01-21-2022 Albumin [Mass/Vol] 3.4 g/dL 3.2-5.[address] [facility] Basophils Auto (Bld) [#/Vol] Ordered By: Diony Hooks on 01-21-2022 Basophils (Bld) [#/Vol] 0.0 10*3/uL 0.0-0.2 [facility] Basophils/100 WBC Auto (Bld) Ordered By: Diony Hooks on 01-21-2022 Basophils/100 WBC (Bld) 0.4 % . [facility] Blood hemoglobin measurement (mass/volume)Ordered By: Diony Hooks on 01-21-2022 Hemoglobin (Bld) [Mass/Vol] 13.3 g/dL 11.8-15.4 [facility] Blood leukocytes automated c ount (number/volume)Ordered By: Diony Hooks on 01-21-2022 WBC (Bld) [#/Vol] 8.5 10*3/uL 4.5-11.[address] [facility] Creatinine and Glomerular fi ltration rate.predicted panel (S/P/Bld)Ordered By: Diony Hooks on 01-21-2022 Creatinine [Mass/Vol] 0.72 mg/dL 0.44-1.[address] [facility] Eosinophils Auto (Bld) [#/Vo l]Ordered By: Diony Hooks on 01-21-2022 Eosinophils (Bld) [#/Vol] 0.4 10*3/uL 0.0-0.45 [facility] Eosinophils/100 WBC Auto (Bl d)Ordered By: Diony Hooks on 01-21-2022 Eosinophils/100 WBC (Bld) 4.2 % . [facility] Erythrocyte distribution wid th Auto (RBC) [Ratio]Ordered By: Diony Hooks on 01-21-2022 Erythrocyte distribution width (RBC) [Ratio] 14.4 % 11.9-15.3 [facility] Estimated glomerular filtrat ion rate (GFR) non- AmericanOrdered By: Diony Hooks on 01-21-2022 GFR/1.73 sq M.predicted among non-blacks MDRD (S/P/Bld) [Vol rate/Area] > 60 mL/Min [facility] Globulin Calc (S) [Mass/Vol] Ordered By: Diony Hooks on 01-21-2022 Globulin (S) [Mass/Vol] 2.4 g/dL [facility] Glucose Glucometer (BldC) [M ass/Vol]Ordered By: Wiley Beal on 01-21-2022 Glucose [Mass/Vol] 93 mg/dL [facility] Comment on above: Random Glucose Refer ence Range is dependent on time and content of last meal. Glucose of more than 200 mg/dL in a nonstressed, ambulatory subject supports the diagnosis of Diabetes Mellitus. Hematocrit Auto (Bld) [Volum e fraction]Ordered By: Diony Hooks on 01-21-2022 Hematocrit (Bld) [Volume fraction] 40.5 % 34.0-46.4 [facility] - Hematology and Cell countsOrdered By: Diony Hooks on 01-21-2022 Nucleated RBC/100 WBC (Bld) [Ratio] 0.0 % 0-0.5 [facility] Lymphocytes Auto (Bld) [#/Vo l]Ordered By: Diony Hooks on 01-21-2022 Lymphocytes (Bld) [#/Vol] 1.2 10*3/uL 1.00-4.8 [facility] Lymphocytes/100 WBC Auto (Bl d)Ordered By: Diony Hooks on 01-21-2022 Lymphocytes/100 WBC (Bld) 14.2 % . [facility] MCH Auto (RBC) [Entitic mass ]Ordered By: Diony Hooks on 01-21-2022 MCH (RBC) [Entitic mass] 30.7 pg 24.7-34.3 [facility] MCHC Auto (RBC) [Mass/Vol]Or dered By: Diony Hooks on 01-21-2022 MCHC (RBC) [Mass/Vol] 32.9 g/dL 32.0-35.[address] [facility] MCV Auto (RBC) [Entitic vol] Ordered By: Diony Hooks on 01-21-2022 MCV (RBC) [Entitic vol] 93.1 fL 80-100 [facility] Monocytes Auto (Bld) [#/Vol] Ordered By: Diony Hooks on 01-21-2022 Monocytes (Bld) [#/Vol] 0.6 10*3/uL 0.0-0.8 [facility] Monocytes/100 WBC Auto (Bld) Ordered By: Diony Hooks on 01-21-2022 Monocytes/100 WBC (Bld) 6.7 % . [facility] Neutrophils Auto (Bld) [#/Vo l]Ordered By: Diony Hooks on 01-21-2022 Neutrophils (Bld) [#/Vol] 6.3 10*3/uL 1.8-7.7 [facility] Neutrophils/100 WBC Auto (Bl d)Ordered By: Diony Hooks on 01-21-2022 Neutrophils/100 WBC (Bld) 74.5 % . [facility] No Panel InformationOrdered By: Wiley Beal on 01-21-2022 Bedside Glucose Comment Glu2: cleaned meter [facility] No Panel InformationOrdered By: Diony Hooks on 01-21-2022 Estimated GFR () > 60 mL/Min [facility] Comment on above: GFR estimated refere nce range: According to KDOQI guidelines, <60 ml/min/1.73m2 is sufficient to diagnose a patient with chronic kidney disease. Pharmacy Creatinine Clearance (Chem 55.72 [facility] Platelet mean volume Auto (B ld) [Entitic vol]Ordered By: Diony Hooks on 01-21-2022 Platelet mean volume (Bld) [Entitic vol] 7.8 fL 6.3-10.7 [facility] Platelets Auto (Bld) [#/Vol] Ordered By: Diony Hooks on 01-21-2022 Platelets (Bld) [#/Vol] 235 10*3/uL 150-450 [facility] Protein [Mass/volume] in Ser um or PlasmaOrdered By: Diony Hooks on 01-21-2022 Protein [Mass/Vol] 5.8 g/dL 6.1-7.[address] [facility] RBC Auto (Bld) [#/Vol]Ordere d By: Diony Hooks on 01-21-2022 RBC (Bld) [#/Vol] 4.35 10*6/uL 3.60-5.00 [facility] Serum or plasma alanine potter otransferase measurement without P-5'-P (enzymatic activiOrdered By: Diony Hooks on 01-21-2022 ALT No additional P-5'-P [Catalytic activity/Vol] 16 U/L 10-60 [facility] Serum or plasma albumin/glob ulin mass ratioOrdered By: Diony Hooks on 01-21-2022 Albumin/Globulin [Mass ratio] 1.4 {ratio} [facility] Serum or plasma alkaline inge sphatase measurement (enzymatic activity/volume)Ordered By: Diony Hooks on 01-21-2022 ALP [Catalytic activity/Vol] 43 U/L 32-92 [facility] Serum or plasma aspartate am inotransferase measurement (enzymatic activity/volume)Ordered By: Diony Hooks on 01-21-2022 AST [Catalytic activity/Vol] 25 U/L 10-42 [facility] Serum or plasma calcium norma urement (mass/volume)Ordered By: Diony Hooks on 08-12-2022 Calcium [Mass/Vol] 9.1 mg/dL 8.2-10.[address] [facility] Serum or plasma chloride tam surement (moles/volume)Ordered By: Diony Hooks on 01-21-2022 Chloride [Moles/Vol] 104 mmol/L 95-114 [facility] Serum or plasma glucose norma urement (mass/volume)Ordered By: Diony Hooks on 01-21-2022 Glucose [Mass/Vol] 98 mg/dL 70-[address] [facility] Comment on above: ADA recommended refe rence range Random Glucose Reference Range is dependent on time and content of last meal. Glucose of more than 200 mg/dL in a nonstressed, ambulatory subject supports the diagnosis of Diabetes Mellitus. Serum or plasma potassium me asurement (moles/volume)Ordered By: Diony Hooks on 01-21-2022 Potassium [Moles/Vol] 3.8 mmol/L 3.5-5.[address] [facility] Serum or plasma sodium measu rement (moles/volume)Ordered By: Diony Hooks on 01-21-2022 Sodium [Moles/Vol] 135 mmol/L 136-[address] [facility] Serum or plasma total biliru bin measurement (mass/volume)Ordered By: Diony Hooks on 01-21-2022 Bilirubin [Mass/Vol] 0.9 mg/dL 0.3-1.2 [facility] Serum or plasma total carbon dioxide measurement (moles/volume)Ordered By: Diony Hooks on 01-21-2022 CO2 [Moles/Vol] 23.4 mmol/L 22.0-30.0 [facility] Serum or plasma urea nitroge n measurement (mass/volume)Ordered By: Diony Hooks on 01-21-2022 Urea nitrogen [Mass/Vol] 9 mg/dL 9-23 [facility] Activated partial thrombopla stin time (aPTT) in platelet poor plasma by coagulation aOrdered By: Wiley Beal on 01-20-2022 aPTT Coag (PPP) [Time] 70.5 s 25.1-36.5 [facility] Cholesterol [Mass/volume] in Serum or PlasmaOrdered By: Justa Westfall on 01-19-2022 Cholesterol [Mass/Vol] 181 mg/dL 140-200 [facility] Comment on above: Chol less than 200 m g/dl low risk Chol 201-239 mg/dl borderline risk Chol 240 mg/dl and greater high risk Cholesterol in LDL Calc [Mas s/Vol]Ordered By: Justa Westfall on 01-19-2022 Cholesterol in LDL [Mass/Vol] 112 mg/dL 0-100 [facility] Comment on above: LDL ATP III CLASSIFI CATION LDL less than 100 mg/dL Optimal LDL 100-129 mg/dL Near or above optimal LDL 130-159 mg/dL Borderline high LDL 160-189 mg/dL High LDL greater than 189 mg/dL Very high Cholesterol in VLDL Calc [Ma ss/Vol]Ordered By: Justa Westfall on 01-19-2022 Cholesterol in VLDL [Mass/Vol] 22 mg/dL [facility] - Chemistry and C hemistry - challengeOrdered By: Justa Westfall on 01-19-2022 Magnesium [Mass/Vol] 1.4 mg/dL 1.6-2.6 [facility] - CoagulationOrde red By: Justa Westfall on 01-19-2022 PT Coag (PPP) [Time] 11.7 s 9.0-12.9 [facility] Platelet poor plasma interna tional normalized ratio (INR) by coagulation assay (relatOrdered By: Justa Westfall on 01-19-2022 INR Coag (PPP) [Relative time] 1.0 {INR} [facility] Comment on above: INR Therapeutic Rang [...] Cholesterol in HDL [Mass/Vol] 46 mg/dL 35-85 [facility] Comment on above: HDL CHOL ATP-III CLA SSIFICATION Cardiovascular Risk HDL > or equal to 60 mg/dL LOW HDL < 40 mg/dL HIGH Serum or plasma total choles terol/high density lipoprotein (HDL) cholesterol mass ratOrdered By: Justa Westfall on 01-19-2022 Cholesterol.total/Chol esterol in HDL [Mass ratio] 3.9 {ratio} <5.0 [facility] Triglyceride [Mass/volume] i n Serum or PlasmaOrdered By: Justa Westfall on 01-19-2022 Triglyceride [Mass/Vol] 113 mg/dL 35-149 [facility] Comment on above: TRIG ATP III [...] High sensitivity method [Mass/Vol] 3577 pg/mL 0-15 [facility] Comment on above: Results called at 0943 on 01/19/22 BNPon 01-18-2022 Natriuretic peptide B (Bld) [Mass/Vol] 1222.0 pg/mL Normal <=1,800.0 [facility] Comment on above: Performed By: #### A 1C #### [facility] [address] [address] [address] Ellie Smith CBC AUTO DIFFon 01-18-2022 BASO # 0.1 103/ul Normal 0.0-0.1 [facility] Comment on above: Performed By: #### R [id number] #### [facility] [address] [address] [address] Ellie Smith Basophils/100 WBC (Bld) 0.5 % Normal 0.2-2.0 [facility] Comment on above: Performed By: #### R [id number] #### [facility] [address] [address] [address] Ellie Smith EO # 0.2 103/ul Normal 0.0-0.7 [facility] Comment on above: Performed By: #### R [id number] #### [facility] [address] [place] [address] Dr. Ellie Smith Eosinophils/100 WBC (Bld) 2.4 % Normal 0.9-7.0 [facility] Comment on above: Performed By: #### R [id number] #### [facility] [address] [place] [address] Dr. Ellie Smiht Erythrocyte distribution width (RBC) [Ratio] 14.1 % Normal 11.0-15.0 [facility] Comment on above: Performed By: #### R [id number] #### [facility] [address] [place] [address] Dr. Ellie Smith Hematocrit (Bld) [Volume fraction] 42.2 % Normal 36.0-48.0 [facility] Comment on above: Performed By: #### R [id number] #### [facility] [address] [place] [address] Dr. Ellie Smith Hemoglobin (Bld) [Mass/Vol] 13.9 g/dL Normal 12.0-16.0 [facility] Comment on above: Performed By: #### R [id number] #### [facility] [address] [place] [address] Dr. Ellie Smith IG # 0.02 10e3/ul Normal 0.00-0.03 [facility] Comment on above: Performed By: #### R [id number] #### [facility] [address] [place] [address] Dr. Ellie Smith IG % 0.2 % Normal 0.0-0.5 [facility] Comment on above: Performed By: #### R [id number] #### [facility] [address] [place] [address] Dr. Ellie Smith LYMPH # 2.1 103/ul Normal 1.2-3.8 [facility] Comment on above: Performed By: #### R [id number] #### [facility] [address] [place] [address] Dr. Ellie Smith Lymphocytes/100 WBC (Bld) 21.2 % Normal 20.5-60.0 [facility] Comment on above: Performed By: #### R [id number] #### [facility] [address] [place] [address] Dr. Ellie Smith MANUAL DIFF REQ NO Normal [facility] Comment on above: Performed By: #### R [id number] #### [facility] [address] [place] [address] Dr. Ellie Smith MCH (RBC) [Entitic mass] 31.2 pg Normal 26.7-34.0 [facility] Comment on above: Performed By: #### R [id number] #### [facility] [address] [place] [address] Dr. Ellie Smith MCHC (RBC) [Mass/Vol] 32.9 g/dL Normal 29.9-35.2 [facility] Comment on above: Performed By: #### R [id number] #### [facility] [address] [place] [address] Dr. Ellie Smith MCV (RBC) [Entitic vol] 94.6 fL Normal 81.0-99.0 [facility] Comment on above: Performed By: #### R [id number] #### [facility] [address] [place] [address] Dr. Ellie Smith MONO # 0.5 103/ul Normal 0.3-0.8 [facility] Comment on above: Performed By: #### R [id number] #### [facility] [address] [place] [address] Dr. Ellie Smith Monocytes/100 WBC (Bld) 4.7 % Normal 1.7-12.0 [facility] Comment on above: Performed By: #### R [id number] #### [facility] [address] [place] [address] Dr. Ellie Smith NEUT # 7.1 103/ul Critically high 1.4-6.5 [facility] Comment on above: Performed By: #### R [id number] #### [facility] [address] [place] [address] Dr. Ellie Smith Neutrophils/100 WBC (Bld) 71.0 % Normal 43.0-75.0 [facility] Comment on above: Performed By: #### R [id number] #### [facility] [address] [place] [address] Dr. Ellie Smith Platelet mean volume (Bld) [Entitic vol] 9.2 fL Critically low 9.5-13.5 [facility] Comment on above: Performed By: #### R [id number] #### [facility] [address] [place] [address] Dr. Ellie Smith PLT 257 103/ul Normal 150-450 [facility] Comment on above: Performed By: #### R [id number] #### [facility] [address] [place] [address] Dr. Ellie Smith RBC 4.46 106/ul Normal 4.20-5.40 [facility] Comment on above: Performed By: #### R [id number] #### [facility] [address] [place] [address] Dr. Ellie Smith WBC 10.0 103/ul Normal 4.0-11.0 [facility] Comment on above: Performed By: #### R [id number] #### [facility] [address] [place] [address] Dr. Ellie Smith Covid-19 PCR ([facility])on SARS-CoV-2 (COVID-19) RNA MEI+probe Ql (Unsp spec) Not detected Normal NOT DETECTED [facility] Comment on above: Result Comment: When [...] for this test is supported by the [place] of Health and Human Service's declaration that [...] used). Performed By: #### C VDTBH #### [facility] [address] [place] [address] Dr. Ellie Smith LIPASEon 01-18-2022 Lipase [Catalytic activity/Vol] 62.0 U/L Critically low 73.0-393.0 [facility] Comment on above: Performed By: #### A 1C #### [facility] [address] [place] [address] Dr. Ellie Smith MAGNESIUMon 01-18-2022 Magnesium [Mass/Vol] 1.4 mg/dL Critically low 1.8-2.4 [facility] Comment on above: Performed By: #### M G #### [facility] [address] [place] [address] Dr. Ellie Smith PROF 14(COMP METB)on 022 Albumin [Mass/Vol] 3.8 g/dL Normal 3.4-5.0 [facility] Comment on above: Performed By: #### A 1C #### [facility] [address] [place] [address] Dr. Ellie Smith Albumin/Globulin [Mass ratio] 1.2 {ratio} Normal [facility] Comment on above: Performed By: #### A 1C #### [facility] [address] [place] [address] Dr. Ellie Smith ALP [Catalytic activity/Vol] 59 U/L Normal 46-116 [facility] Comment on above: Performed By: #### A 1C #### [facility] [address] [place] [address] Dr. Ellie Smith ALT [Catalytic activity/Vol] 18 U/L Normal 14-59 [facility] Comment on above: Performed By: #### A 1C #### [facility] [address] [place] [address] Dr. Ellie Smith Anion gap [Moles/Vol] 11.1 mmol/L Normal [facility] Comment on above: Performed By: #### A 1C #### [facility] [address] [address] [address] Ellie Smith AST [Catalytic activity/Vol] 14 U/L Critically low 15-37 [facility] Comment on above: Performed By: #### A 1C #### [facility] [address] [address] [address] Ellie Smith Bilirubin [Mass/Vol] 0.3 mg/dL Normal 0.2-1.0 [facility] Comment on above: Performed By: #### A 1C #### [facility] [address] [address] [address] Ellie Smith Calcium [Mass/Vol] 9.1 mg/dL Normal 8.5-10.1 [facility] Comment on above: Performed By: #### A 1C #### [facility] [address] [address] [address] Ellie Smith Chloride [Moles/Vol] 104 mmol/L Normal 98-107 [facility] Comment on above: Performed By: #### A 1C #### [facility] [address] [address] [address] Ellie Smith CO2 [Moles/Vol] 26.9 mmol/L Normal 21.0-32.0 [facility] Comment on above: Performed By: #### A 1C #### [facility] [address] [address] [address] Ellie Smith Creatinine [Mass/Vol] 0.84 mg/dL Normal 0.55-1.02 [facility] Comment on above: Performed By: #### A 1C #### [facility] [address] [address] [address] Ellie Smith EGFR-AF RUSSIAN >60 Normal >=60 [facility] Comment on above: Performed By: #### A 1C #### [facility] [address] [address] [address] Ellie Smith EGFR-NON AF RUSSIAN >60 Normal >=60 [facility] Comment on above: Performed By: #### A 1C #### [facility] [address] [place] [address] Dr. Ellie Smith Globulin (S) [Mass/Vol] 3.1 g/dL Normal [facility] Comment on above: Performed By: #### A 1C #### [facility] [address] [place] [address] Dr. Ellie Smith Glucose [Mass/Vol] 100 mg/dL Normal 74-106 [facility] Comment on above: Performed By: #### A 1C #### [facility] [address] [place] [address] Dr. Ellie Smith Potassium [Moles/Vol] 4.0 mmol/L Normal 3.5-5.1 [facility] Comment on above: Performed By: #### A 1C #### [facility] [address] [place] [address] Dr. Ellie Smith Protein [Mass/Vol] 6.9 g/dL Normal 6.4-8.2 [facility] Comment on above: Performed By: #### A 1C #### [facility] [address] [place] [address] Dr. Ellie Smith Sodium [Moles/Vol] 138 mmol/L Normal 136-145 [facility] Comment on above: Performed By: #### A 1C #### [facility] [address] [place] [address] Dr. Ellie Smith Urea nitrogen [Mass/Vol] 14.0 mg/dL Normal 7.0-18.0 [facility] Comment on above: Performed By: #### A 1C #### [facility] [address] [place] [address] Dr. Ellie Smith Urea nitrogen/Creatinine [Mass ratio] 16.7 mg/mg Normal [facility] Comment on above: Performed By: #### A 1C #### [facility] [address] [place] [address] Dr. Ellie Smith PROTIMEon 01-18-2022 INR Coag (PPP) [Relative time] 0.95 {INR} Normal [facility] Comment on above: Performed By: #### R EVRT3 #### [facility] [address] [place] [address] Dr. Ellie Smith INR GUIDELINES SEE BELOW Normal [facility] Comment on above: Result Comment: HIMANSHU RED INR: 2.0 - 3.0 CONDITIONS NOT LISTED BELOW 2.5 - 3.5 FOR PROSTHETIC HEART VALVE REPLACEMENT 2.5 - 3.5 RECURRENT THROMBOSIS Performed By: #### R EVRT3 #### [facility] [address] [address] [address] Ellie Smith PT Coag (PPP) [Time] 10.3 s Normal 9.0-11.6 [facility] Comment on above: Performed By: #### R EVRT3 #### [facility] [address] [address] [address] Ellie Smith PTTon 01-18-2022 aPTT Coag (Bld) [Time] 27.1 s Normal 22.3-36.2 [facility] Comment on above: Performed By: #### R EVRT3 #### [facility] [address] [place] [address] Dr. Ellie Smith TROPONIN, HIGH SENSITIVITYon 01-18-2022 HSTROP 512.5 pg/mL Critically high 4.0-51.3 [facility] Comment on above: Result Comment: CUT- OFF POINTS HAVE BEEN ESTABLISHED BASED ON THE FOURTH UNIVERSAL DEFINITIONS OF MYOCARDIAL INFARCTION. THE UPPER REFERENCE LIMIT (URL) OF TROPONIN, DEFINED THE 99TH PERCENTILE OF cTnI DISTRIBUTION IN A REFERENCE POPULATION, HAS BEEN CONFIRMED THE DECISION THRESHOLD FOR MD DIAGNOSIS. repeated Performed By: #### A 1C #### [facility] [address] [place] [address] Dr. Ellie Smith XR CHEST 1 Von [...] by: NICOLE SANDERS Date: 2022-01-18 17:38 Normal [facility] Vital Signs Date Time Vital Sign Value Performing Clinician Facility 08-31-2023 13:23-0400 Diastolic blood pressure 70 mm[Hg] Karli Dougherty MD Work Phone: [facility] 08-31-2023 13:23-0400 Systolic blood pressure 136 mm[Hg] Karli Doughetry MD Work Phone: [facility] 08-31-2023 12:56-0400 Body height 157.5 cm Karli Dougherty MD Work Phone: [facility] 08-31-2023 12:56-0400 Body mass index (BMI) [Ratio] 27.62 kg/m2 Karli Dougherty MD Work Phone: [facility] 08-31-2023 12:56-0400 Body weight 68.49 kg Karli Dougherty MD Work Phone: [facility] 08-31-2023 12:56-0400 Heart rate 72 /min Karli Dougherty MD Work Phone: [facility] 03-14-2023 12:00-0400 Body temperature 98.1 [degF] MD Priyanka Puentes Work Phone: [facility] 03-14-2023 12:00-0400 Diastolic blood pressure 72 mm[Hg] MD Priyanka Puentes Work Phone: [facility] 03-14-2023 12:00-0400 Heart rate 70 /min MD Priyanka Puentes Work Phone: [facility] 03-14-2023 12:00-0400 Respiratory rate 12 /min MD Priyanka Puentes Work Phone: [facility] 03-14-2023 12:00-0400 SaO2% (BldA) [Mass fraction] 95 % MD Priyanka Puentes Work Phone: [facility] 03-14-2023 12:00-0400 Systolic blood pressure 155 mm[Hg] MD Priyanka Puentes Work Phone: [facility] 03-14-2023 06:00-0400 Body weight 66.3 kg MD Priyanka Puentes Work Phone: [facility] 03-12-2023 20:20-0400 Body height 157.48 cm MD Priyanka Puentes Work Phone: [facility] 03-12-2023 17:59-0400 Diastolic blood pressure 91 mm[Hg] MD Priyanka Puentes Work Phone: [facility] 03-12-2023 17:59-0400 Systolic blood pressure 199 mm[Hg] MD Priyanka Puentes Work Phone: [facility] 03-12-2023 17:33-0400 Heart rate 110 /min MD Priyanka Puentes Work Phone: [facility] 03-12-2023 17:33-0400 Respiratory rate 18 /min MD Priyanka Puentes Work Phone: [facility] 03-12-2023 17:33-0400 SaO2% (BldA) [Mass fraction] 96 % MD Priyanka Puentes Work Phone: [facility] 03-12-2023 13:44-0400 Body height 157.48 cm MD Priyanka Puentes Work Phone: [facility] 03-12-2023 13:44-0400 Body temperature 98.6 [degF] MD Priyanka Puentes Work Phone: [facility] 03-12-2023 13:44-0400 Body weight 63.5 kg MD Priyanka Puentes Work Phone: [facility] 03-07-2023 08:00-0400 Body temperature 97.9 [degF] MD Priyanka Puentes Work Phone: [facility] 03-07-2023 08:00-0400 Diastolic blood pressure 77 mm[Hg] MD Priyanka Puentes Work Phone: [facility] 03-07-2023 08:00-0400 Heart rate 78 /min MD Priyanka Puentes Work Phone: [facility] 03-07-2023 08:00-0400 Respiratory rate 16 /min MD Priyanka Puentes Work Phone: [facility] 03-07-2023 08:00-0400 SaO2% (BldA) [Mass fraction] 98 % MD Priyanka Puentes Work Phone: [facility] 03-07-2023 08:00-0400 Systolic blood pressure 167 mm[Hg] MD Priyanka Puentes Work Phone: [facility] 03-07-2023 06:10-0400 Body weight 64.7 kg MD Priyanka Puentes Work Phone: [facility] 03-06-2023 13:53-0400 Body height 157.48 cm MD Priyanka Puentes Work Phone: [facility] 03-05-2023 21:31-0400 Diastolic blood pressure 65 mm[Hg] MD Priyanka Puentes Work Phone: [facility] 03-05-2023 21:31-0400 Heart rate 85 /min MD Priyanka Puentes Work Phone: [facility] 03-05-2023 21:31-0400 SaO2% (BldA) [Mass fraction] 96 % MD Priyanka Puentes Work Phone: [facility] 03-05-2023 21:31-0400 Systolic blood pressure 145 mm[Hg] MD Priyanka Puentes Work Phone: [facility] 03-05-2023 18:47-0400 Respiratory rate 18 /min MD Priyanka Puentes Work Phone: [facility] 03-05-2023 18:00-0400 Body height 157.48 cm MD Priyanka Puentes Work Phone: [facility] 03-05-2023 18:00-0400 Body temperature 97.1 [degF] MD Priyanka Puentes Work Phone: [facility] 03-05-2023 18:00-0400 Body weight 65.7 kg MD Priyanka Puentes Work Phone: [facility] 02-16-2023 13:38-0400 Body height 157.48 cm Priyanka Puentes Work Phone: [facility] 250 DO Work Phone: 02-16-2023 13:38-0400 Body mass index (BMI) [Ratio] 26.52 kg/m2 Priyanka Puentes Work Phone: [facility] 250 DO Work Phone: 02-16-2023 13:38-0400 Body surface area Derived from formula 1.67 m2 Priyanka Puentes Work Phone: [facility] DO Work Phone: 02-16-2023 13:38-0400 Body weight 65.77 kg Priyanka Puentes Work Phone: [facility] DO Work Phone: 02-16-2023 13:38-0400 Diastolic blood pressure 62 mm[Hg] Priyanka Puentes Work Phone: [facility] DO Work Phone: 02-16-2023 13:38-0400 Heart rate 76 /min Priyanka Puentes Work Phone: [facility] DO Work Phone: 02-16-2023 13:38-0400 Systolic blood pressure 128 mm[Hg] Priyanka Puentes Work Phone: [facility] DO Work Phone: 08-24-2022 14:35-0400 Body height 157.48 cm Edzeeshan Schrader Dianayer Work Phone: [facility] DO Work Phone: 08-24-2022 14:35-0400 Body mass index (BMI) [Ratio] 27.98 kg/m2 Edzeeshan Schrader Hemeyer Work Phone: [facility] 250 DO Work Phone: 08-24-2022 14:35-0400 Body surface area Derived from formula 1.71 m2 Edzeeshan Malcolmyer Work Phone: [facility] 250 DO Work Phone: 08-24-2022 14:35-0400 Body weight 69.4 kg Edzeeshan Malcolmyer Work Phone: [facility] 250 DO Work Phone: 08-24-2022 14:35-0400 Diastolic blood pressure 54 mm[Hg] Edward Macrina Hemeyer Work Phone: [facility] 250 DO Work Phone: 08-24-2022 14:35-0400 Heart rate 82 /min Edzeeshan Malcolmyer Work Phone: [facility] 250 DO Work Phone: 08-24-2022 14:35-0400 Systolic blood pressure 132 mm[Hg] Edward Macrina Hemeyer Work Phone: [facility] DO Work Phone: 03-17-2022 15:30-0400 Body height 157.48 cm Edzeeshan Malcolmyer Work Phone: [facility] 600 DO Work Phone: 03-17-2022 15:30-0400 Body mass index (BMI) [Ratio] 30.18 kg/m2 Edzeeshan Malcolmyer Work Phone: [facility] 600 DO Work Phone: 03-17-2022 15:30-0400 Body surface area Derived from formula 1.76 m2 Priyanka Puentes Work Phone: [facility] 600 DO Work Phone: 03-17-2022 15:30-0400 Body weight 74.84 kg Priyanka Maloclmyer Work Phone: [facility] 600 DO Work Phone: 03-17-2022 15:30-0400 Diastolic blood pressure 58 mm[Hg] Priyanka Puentes Work Phone: [facility] 600 DO Work Phone: 03-17-2022 15:30-0400 Heart rate 80 /min Priyanka Peuntes Work Phone: [facility] 600 DO Work Phone: 03-17-2022 15:30-0400 Systolic blood pressure 130 mm[Hg] Priyanka Puentes Work Phone: [facility] 600 DO Work Phone: 02-15-2022 14:39-0400 Body height 157.48 cm Prachizeeshan Puentes Work Phone: [facility] DO Work Phone: 02-15-2022 14:39-0400 Body mass index (BMI) [Ratio] 30.18 kg/m2 Priyanka Malcolmyer Work Phone: [facility] DO Work Phone: 02-15-2022 14:39-0400 Body surface area Derived from formula 1.76 m2 Priyanka Malcolmbud Work Phone: [facility] 250 DO Work Phone: 02-15-2022 14:39-0400 Body weight 74.84 kg Priyanka Schrader Dhaval Work Phone: [facility] 250 DO Work Phone: 02-15-2022 14:39-0400 Diastolic blood pressure 60 mm[Hg] Priyanka Schrader Hemeyer Work Phone: [facility] DO Work Phone: 02-15-2022 14:39-0400 Heart rate 78 /min Priyanka Malcolmyer Work Phone: [facility] DO Work Phone: 02-15-2022 14:39-0400 Systolic blood pressure 140 mm[Hg] Priyanka Malcolmyer Work Phone: [facility] DO Work Phone: 02-15-2022 14:39-0400 10 1 Prachizeeshan Macrina Dianayer Work Phone: [facility] 250 DO Work Phone: Comment on above: PHQ-9 02-03-2022 17:15-0400 Diastolic blood pressure 84 mm[Hg] MD Priyanka Puentes Work Phone: [facility] 02-03-2022 17:15-0400 Heart rate 78 /min MD Priyanka Puentes Work Phone: [facility] 02-03-2022 17:15-0400 Respiratory rate 20 /min MD Priyanka Puentes Work Phone: [facility] 02-03-2022 17:15-0400 SaO2% (BldA) [Mass fraction] 94 % MD Priyanka Puentes Work Phone: [facility] 02-03-2022 17:15-0400 Systolic blood pressure 185 mm[Hg] MD Priyanka Puentes Work Phone: [facility] 02-03-2022 16:00-0400 Body temperature 97.8 [degF] MD Priyanka Puentes Work Phone: [facility] 02-03-2022 10:25-0400 Body height 157.48 cm MD Priyanka Puentes Work Phone: [facility] 02-03-2022 10:25-0400 Body weight 77.5 kg MD Priyanka Puentes Work Phone: [facility] 01-21-2022 12:00-0400 Body temperature 97.6 [degF] MD Priyanka Puentes Work Phone: [facility] 01-21-2022 12:00-0400 Diastolic blood pressure 81 mm[Hg] MD Priyanka Puentes Work Phone: [facility] 01-21-2022 12:00-0400 Heart rate 73 /min MD Priyanka Puentes Work Phone: [facility] 01-21-2022 12:00-0400 Respiratory rate 20 /min MD Priyanka Puentes Work Phone: [facility] 01-21-2022 12:00-0400 SaO2% (BldA) [Mass fraction] 94 % MD Priyanka Puentes Work Phone: [facility] 01-21-2022 12:00-0400 Systolic blood pressure 150 mm[Hg] MD Priyanka Puentes Work Phone: [facility] 01-21-2022 05:59-0400 Body weight 79.6 kg MD Priyanka Puentes Work Phone: [facility] 01-19-2022 09:50-0400 Body height 157.48 cm MD Priyanka Puentes Work Phone: [facility] 01-18-2022 00:00-0400 55 1 Priyanka Puentes Work Phone: [facility] 250 DO Work Phone: Comment on above: [id number] 01-01-2022 11:00-0400 Body height 157.48 cm Eva Patelmond Other [facility] Other 01-01-2022 11:00-0400 Body mass index (BMI) [Ratio] 31.64 kg/m2 Eva Patelmond Other [facility] Other 01-01-2022 11:00-0400 Body temperature 97.1 [degF] Eva Patelmond Other [facility] Other 01-01-2022 11:00-0400 Body weight 78.47 kg Eva Patelmond Other [facility] Other 01-01-2022 11:00-0400 Diastolic blood pressure 101 mm[Hg] Eva Patelmond Other [facility] Other 01-01-2022 11:00-0400 Respiratory rate 18 /min Eva Patelmond Other [facility] Other 01-01-2022 11:00-0400 SaO2% (BldA) [Mass fraction] 96 % Eva Patelmond Other [facility] Other 01-01-2022 11:00-0400 Systolic blood pressure 156 mm[Hg] Eva Amarilys Other [facility] Other Encounters Encounter Date Encounter Type Care Provider Facility Start: 12-13-2023 End: 12-13-2023 ambulatory PRIYANKA PUENTES Not Available Start: 08-31-2023 End: 08-31-2023 ambulatory [facility] Start: 08-31-2023 End: 08-31-2023 Office outpatient visit 15 minutes Karli Dougherty MD Work Phone: [facility] Comment on above: 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 Priyanka Puentes Facility:[id number] Start: 03-05-2023 End: 03-07-2023 ambulatory Priyanka Puentes Facility:[facility] Start: 03-05-2023 End: 03-07-2023 Evaluation and management of inpatient MD Priyanka Puentes Work Phone: [facility] Work Phone: Start: 03-05-2023 End: 03-07-2023 observation encounter MD Priyanka Puentes Work Phone: [facility] Work Phone: Start: 03-02-2023 Telephone encounter Priyanka bhatt Work Phone: [facility] 600 DO Work Phone: Start: 02-16-2023 Office outpatient vi sit 15 minutes Priyanka Puentes Work Phone: [facility] 250 DO Work Phone: Start: 02-16-[address] Priyanka Puentes Facility: Start: 10-05-2022 End: 10-06-[address] PRIYANKA PUENTES . Facility:[facility] Start: 08-24-2022 Office outpatient vi sit 25 minutes Priyanka Puentes Work Phone: [facility] 250 DO Work Phone: Start: 08-24-[address] Priyanka Puentes Facility: Start: 08-15-2022 End: 08-16-[address] ANUM WOODY Facility:[facility] Start: 06-14-2022 End: 07-19-[address] PRIYANKA PUENTES . Facility:[facility] Start: 04-12-2022 End: 04-13-[address] PRIYANKA PUENTES . Facility:[facility] Start: 03-29-2022 End: 03-30-[address] PRIYANKA PUENTES . Facility:[facility] Start: 03-25-2022 Telephone encounter Priyanka bhatt Work Phone: [facility] 250 DO Work Phone: Start: 03-17-2022 Office outpatient vi sit 25 minutes Priyanka Puentes Work Phone: [facility] 600 DO Work Phone: Start: 03-17-2022 ambulatory Ms. Khanh Persaud Facility: Start: 02-24-2022 End: 06-14-[address] PRIYANKA PUENTES . Facility:[facility] Start: 02-15-2022 Office outpatient vi sit 25 minutes Priyanka Puentes Work Phone: [facility] 250 DO Work Phone: Start: 02-07-2022 Telephone encounter Priyanka bhatt Work Phone: [facility] DO Work Phone: Start: 02-03-2022 End: 02-03-2022 Admission to same day surgery center MD Priyanka Puentes Work Phone: [facility] Start: 02-01-2022 End: 02-01-2022 Patient encounter procedure MD Priyanka Puentes Work Phone: [facility] Start: 01-27-2022 End: 01-28-[address] RAQUEL PERSAUD Facility:[facility] Start: 01-18-2022 End: 01-21-2022 Evaluation and management of inpatient MD Priyanka Puentes Work Phone: [facility] Start: 01-18-2022 End: 01-18-2022 ambulatory BRITTNI LOTT . Facility:[facility] Start: 01-01-2022 End: 01-01-2022 ambulatory Eva Panda Other [facility] Other Start: 01-01-2022 Office outpatient ne w [...] Start: 03-28-2025 Glaucoma screening Diabetes: Retinopathy Screening [facility] Start: 05-08-2024 End: 05-08-2024 Patient encounter procedure 05/08/2024 1:40 PM EST Office Visit [address] [id number] Karli Dougherty MD [address] [facility] [address] [place] [address] [facility] Start: 08-31-2023 FUV, Provider: Karli Dougherty, Status: Pen, Time: 1:00 PM FUV, Provider: Karli Dougherty, Status: Pen, Time: 1:00 PM [facility] 250 DO Work Phone: Start: 08-08-2023 End: 08-08-2023 Patient encounter procedure 08/08/2023 10:00 AM EST Office Visit [facility] [address] [place] [address] Priyanka Puentes MD [address] [place] [address] (Fax) [facility] Start: 03-14-2023 [facility] Start: 03-12-2023 Referral to [employer] [facility] Start: 03-12-2023 Hospital admission [facility] Start: 03-12-2023 Physical therapy procedure [facility] Start: 03-12-2023 Referral to occupational therapist [facility] Start: 03-12-2023 [facility] Start: 03-07-2023 [facility] Start: 03-06-2023 Comprehensive metabolic 2000 panel - Serum or Plasma [facility] Start: 03-06-2023 Doppler ultrasonography of bilateral carotid arteries US carotid doppler BI [facility] Start: 03-06-2023 Lipid panel [facility] Start: 03-06-2023 [facility] Start: 03-05-2023 Hospital admission [facility] Start: 03-05-2023 Physical therapy procedure [facility] Start: 03-05-2023 Referral to occupational therapist [facility] Start: 03-05-2023 [facility] Start: 03-05-2023 [facility] Start: 02-16-2023 FUV, Provider: Karli Dougherty, Status: Pen, Time: 1:20 PM FUV, Provider: Karli Dougherty, Status: Pen, Time: 1:20 PM [facility] Work Phone: Start: 11-15-2022 Hemoglobin A1c measurement Diabetes: Hemoglobin A1C [facility] Start: 08-23-2022 Medicare Annual Wellness (AWV) Medicare Annual Wellness (AWV) [facility] Start: 07-06-2022 FUV, Provider: Karli Dougherty, Status: Pen, Time: 2:20 PM FUV, Provider: Karli Dougherty, Status: Pen, Time: [facility] [facility] Work Phone: Start: 03-17-2022 FUV, Provider: Khanh Mercado, Status: Pen, Time: 3:30 PM FUV, Provider: Khanh Mercado, Status: Pen, Time: 3:30 PM [facility] 250 DO Work Phone: Start: 02-03-2022 [facility] Work Phone: Start: 02-03-2022 Hospital admission [facility] Work Phone: Start: 02-03-2022 CL PTCA Ea Add LAD CL PTCA Ea Add LAD [facility] Start: 02-03-2022 CL Stent 1st Vessel LAD GAYATHRI CL Stent 1st Vessel LAD GAYATHRI [facility] Start: 02-03-2022 [facility] Start: 02-03-2022 End: 02-03-2022 Admission to same day surgery center Depart[facility] Start: 02-01-2022 End: 02-01-2022 Patient encounter procedure Departed Clinical [facility] Sdk-Ywd-Bfpybmtj Testing Start: 01-21-2022 [facility] Work Phone: Start: 01-18-2022 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 [facility] Work Phone: Start: 01-18-2022 Hospital admission [facility] Work Phone: Start: 01-18-2022 Dilation of Coronary Artery, Two Arteries with Four or More Drug-eluting Intraluminal Devices, Percutaneous Approach Dilation of Coronary Artery, Two Arteries with Four or More Drug-eluting Intraluminal Devices, Percutaneous Approach [facility] Start: 01-18-2022 Fluoroscopy of Left Heart using Low Osmolar Contrast Fluoroscopy of Left Heart using Low Osmolar Contrast [facility] Start: 01-18-2022 Fluoroscopy of Multiple Coronary Arteries using Low Osmolar Contrast Fluoroscopy of Multiple Coronary Arteries using Low Osmolar Contrast [facility] Start: 01-18-2022 Measurement of Cardiac Sampling and Pressure, Left Heart, Percutaneous Approach Measurement of Cardiac Sampling and Pressure, Left Heart, Percutaneous Approach [facility] Start: 10-16-2018 Urine screening for protein Diabetes: Urine Protein Screening [facility] Start: 02-21-1992 Zoster Vaccines (1 of 2) Zoster Vaccines (1 of 2) [facility] Start: 02-21-1964 DTaP/Tdap/Td Vaccines (1 - Tdap) DTaP/Tdap/Td Vaccines (1 - Tdap) [facility] Start: [address] Panel [facility] Start: 1940 Medicare Annual Wellness Visit Medicare Annual Wellness Visit (AWV) [facility] Start: 1940 Thyroid stimulating hormone measurement TSH Level [facility] Patient Education [facility] Work Phone: Patient referral [facility] Work Phone: Immunizations Immunization Date Immunization Notes Care Provider [facility] 05-09-2023 Influenza, High-dose Seasonal, Quadrivalent, Preservative Free Priyanka Puentes MD Work Phone: [facility] 05-17-2022 Fluzone High-Dose Quadrivalent 0.7 ML Intramuscular Suspension Prefilled Syringe Priyanka Puentes Work Phone: [facility] 250 DO Work Phone: 04-29-2022 Moderna Bivalent Saenz ster Vaccination Priyanka Puentes MD Work Phone: [facility] 04-29-2022 Pfizer COVID-19 Vac Bivalent 30 MCG/0.3ML Intramuscular Suspension Priyanka Puentes Work Phone: [facility] Work Phone: 04-19-2021 influenza, injectabl e, quadrivalent, preservative free Edzeeshan Puentes Work Phone: [facility] 03-17-2021 Pfizer-BioNTech COVI D-19 Vacc 30 MCG/0.3ML Intramuscular Suspension Priyanka Puentes Work Phone: [facility] 250 DO Work Phone: 03-16-2021 Pfizer Purple Cap SARS-CoV-2 Vaccination Priyanka Puentes MD Work Phone: [facility] 07-31-2020 COVID-19 mRNABob (Pfizer) MD Priyanka Puentes Work Phone: [facility] 07-30-2020 Pfizer Purple Cap SARS-CoV-2 Vaccination Priyanka Puentes MD Work Phone: [facility] 07-08-2020 Pfizer-BioNTech COVI D-19 Vacc 30 MCG/0.3ML Intramuscular Suspension Priyanka Puentes Work Phone: [facility] 250 DO Work Phone: 07-07-2020 Pfizer Purple Cap SARS-CoV-2 Vaccination Priyanka Puentes MD Work Phone: [facility] 07-03-2020 COVID-19 mRNABob (Pfizer) MD Priyanka Puentes Work Phone: [facility] 03-26-2020 Seasonal trivalent influenza vaccine, adjuvanted, preservative free Priyanka Puentes Work Phone: [facility] 250 DO Work Phone: 03-25-2020 Seasonal trivalent influenza vaccine, adjuvanted, preservative free Priyanka Puentes MD Work Phone: [facility] 04-09-2019 influenza, injectabl e, quadrivalent, preservative free Priyanka Puentes MD Work Phone: [facility] 04-09-2019 Seasonal trivalent influenza vaccine, adjuvanted, preservative free Priyanka J Hemeyer Work Phone: [place] [address] DO Work Phone: 04-03-2018 influenza, injectabl e, quadrivalent, preservative free Priyanka J Hemeyer Work Phone: [place] [address] DO Work Phone: 04-02-2018 influenza, injectabl e, quadrivalent, preservative free Priyanka Puentes MD Work Phone: [facility] 04-02-2018 pneumococcal conjuga te vaccine, 13 valent Edward J Hemeyer Work Phone: [place] [address] DO Work Phone: 03-20-2017 pneumococcal conjuga te vaccine, 13 valent Prachiward J Hemeyer Work Phone: [place] [address] DO Work Phone: 03-13-2017 influenza, seasonal, injectable Edward J Hemeyer Work Phone: [place] [address] DO Work Phone: 04-14-2016 influenza, injectabl e, quadrivalent, contains preservative Prachiward J Hemeyer Work Phone: [place] [address] DO Work Phone: 04-12-2016 influenza, injectabl e, quadrivalent, preservative free Priyanka Puentes MD Work Phone: [facility] 04-17-2015 influenza, injectabl e, quadrivalent, preservative free Priyanka Puentes MD Work Phone: [facility] 04-03-2015 influenza, seasonal, injectable Priyanka Puentes Work Phone: [facility] 250 DO Work Phone: 05-20-2009 pneumococcal polysaccharide vaccine, 23 valent Priyanka Puentes Work Phone: [facility] 250 DO Work Phone: Payers Date Payer Category Payer Unknown 2007 Medicare [id number] 1959 Medicare [id number] 2. [id number] 1959 Medicare [id number] 2.1 [id number] 1942 Unknown [id number] 2.16.84 0.1.887190.3.579.2.593 1942 Unknown [id number] 2.16.84 0.1.499208.3.579.2.593 1942 Unknown [id number] 2.16.84 0.1.889912.3.579.2.593 1942 Unknown [id number] 2.16.84 0.1.853973.3.579.2.593 1942 Unknown [id number] 2.16.84 0.1.442727.3.579.2.593 1942 Unknown [id number] 2.16.84 0.1.528886.3.579.2.593 1942 Unknown [id number] 2.16.84 0.1.532985.3.579.2.593 1942 Unknown [id number] 2.16.84 0.1.137928.3.579.2.593 1942 Unknown [id number] 2.16. 840.1.158493.3.579.2.356 1942 Unknown [id number] 2.16. 840.1.091469.3.579.2.356 1942 Unknown [id number] 2.16. 840.1.356407.3.579.2.356 1942 Unknown [id number] 2.16. 840.1.389007.3.579.2.356 1942 Unknown [id number] 2.16.8 40.1.301706.3.579.2.1244 1942 Unknown [id number] 2.16.84 0.1.561044.3.579.2.1259 1942 Unknown [id number] 2.16.84 0.1.684613.3.579.2.1259 1942 Unknown [id number] 2.16.84 0.1.680322.3.579.2.1259 1942 Unknown [id number] 2.16.84 0.1.095830.3.579.2.1259 1942 Unknown [id number] 2.16.840 .1.536721.3.579.2.1259 Medicare Medicare Outpatient [id number] 1D [id number] Self-pay Self Pay [id number] Unknown [id number] Unknown [facility] [id number] Social History Date Type Detail Facility Start: 02-15-2022 End: 02-14-2023 Sex Assigned At [facility] Start: 02-03-2022 End: 08-31-2023 Tobacco smoking status NHIS Ex-smoker (finding) [facility] Start: 1940 Sex Assigned At Female F [facility] Start: 02-15-2022 End: 02-14-2023 Former smoker Former smoker [facility] Comment on above: nicotine lozenges; Start: 03-12-2023 Tobacco smoking stat us NHIS Smoker (finding) [facility] History of tobacco use Cigarette Smoker N [facility] Start: 07-05-2023 Alcohol intake Ex-drinker (finding) [...] Tobacco Comment Last smoked : 1-5 years [facility] Start: 01-18-2023 Alcohol Comment Caffeine intak e: 3 cups decaf per day [facility] Start: 1940 Sex Assigned At Not on file N [facility] Start: 08-31-2023 Tobacco use and exposure Smokeless tobacco non-user [facility] Work Phone: Start: 08-31-2023 Alcohol intake Lifetime non-d carolyn (finding) [facility] Work Phone: Start: 08-21-2023 End: 08-31-2023 Exposure to SARS-CoV-2 (event) Not sure [facility] Medical Equipment Procedure Code Equipment Code Equipment Original Text Equipment Identifier Dates [id number] [facility] Start: 01-20-2022 Drug-eluting cor onary artery stent, qan-kpjldfqtqqumc-tdsam er-coated ()[id number] FDA Start: 01-20-2022 Drug-eluting cor onary artery stent, ovd-lqsppspttfkvw-ccnil er-coated ()[id number] FDA Start: 01-20-2022 Drug-eluting cor onary artery stent, koz-miqpsypfuusad-ikafc er-coated ()[id number] FDA Start: 01-20-2022 Drug-eluting cor onary artery stent, ehf-cqiwxddnxvafy-albkg er-coated ()[id number] FDA Start: 02-03-2022 [id number] FDA Start: 01-20-2022 [id number] FDA Start: 01-20-2022 [id number] FDA Start: 01-20-2022 [id number] FDA Start: 01-20-2022 [id number] FDA Start: 01-20-2022 [id number] FDA Start: 01-20-2022 Goals Date Patient Goal Desired Activity /State Functional Status Date Assessment Result Facility 03-14-2023 Functional status Patient at Baseline [facility] Work Phone: 03-07-2023 Functional status Patient at Baseline [facility] Work Phone: 03-05-2023 Functional status Disability Sta tus Patient at Baseline [facility] Work Phone: 02-15-2022 PHQ-9 [id number] Moderate (10-14) [facility] 250 DO Work Phone: 02-03-2022 Functional status Patient at Baseline [facility] Work Phone: 01-21-2022 Functional status Patient at Baseline [facility] Work Phone: Mental Status Date Assessment Result Facility 03-14-2023 Cognitive function Cognitive Sta tus Patient at Baseline [facility] Work Phone: 03-07-2023 Cognitive function Cognitive Sta tus Patient at Baseline [facility] Work Phone: 02-03-2022 Cognitive function Cognitive Sta tus Patient at Baseline [facility] Work Phone: 01-21-2022 Cognitive function Cognitive Sta tus Patient at Baseline [facility] Work Phone: Clinical Notes 08-24-2021 [...] 3 Assessment/Plan 1. Coronary artery disease involving [place] coronary artery of [place] heart without angina pectoris Follow Up In [...] discussion and plan. documented in this encounter [facility] Work Phone: 08-31-2023 Instructions Ruba Chowdhury [...] instructions on exercise. documented in this encounter [facility] Work Phone: 03-13-2023 Progress note Note Date/Time March 13, 2023 4:47pm [facility] [address] [place] [address] Hospitalist Progress Note Signed Patient: Steven Harding MR#: [id number] : 1940 Acct:[id number] Age/Sex: 83 / F Adm Date: 3 Loc: 4P Room: [address] [place] [address] Type: ADM INOo Attending Dr: Rufus Ricks [...] Hyponatremia of 128. TSH was suppressed on [place] Thyroid and has been checked twice with [...] <Electronically signed by Rufus Ricks DO> 03/13/23 7723 [facility] Work Phone: 1(440) 208-247410-01-2023 History and physical note Author Sima Hdz [facility] March 12, 2023 7:49pm Note Date/Time March 12, 2023 7: 50pm [facility] [address] [place] [address] Hospitalist H&P Signed Patient: Steven Harding MR#: [id number] : 1940 Acct:[id number] Age/Sex: 83 / F Adm Date: 3 Loc: Room: [address] [place] [address] Type: ADM IN Attending Dr: Sima Hdz [...] negative unless noted below or in HPI [facility] Medical History Aneurysm Aortic. Being monitored. Per pt found at [facility] during last visit there in January of [...] Confirmed 03/05/23] thyroid (pork) 60 mg tablet (INVENTORY CONTROL SPECIALIST Thyroid) 60 mg PO BID 01/18/22 [History [...] % (Auto) 13.2 % (.) 03/12/23 14:45 [place] % (Auto) 5.1 % (.) 03/12/23 14:45 Eos % (Auto) 2.0 % (.) 03/12/23 14:45 Baso % (Auto) 0.4 % (.) 03/12/23 14:45 Nucleat RBC Rel Count 0.0 /100 WBC (0-0.5) 03/12/23 14:45 Neut # (Auto) 7.0 x10E3/uL (1.8-7.7) 03/12/23 14:45 Lymph # (Auto) 1.2 x10E3/uL (1.00-4.8) 03/12/23 14:45 [place] # (Auto) 0.5 x10E3/uL (0.0-0.8) 03/12/23 14:45 [...] pH 7.5 (5.0-9.0) 03/12/23 15:55 Ur Specific [place] 1.010 (1.001-1.030) 03/12/23 15:55 Urine Protein Negative [...] Hyponatremia of 128. TSH was suppressed on [place] Thyroid and has been checked twice with [...] <Electronically signed by Sima Hdz MD> 03/12/231948 [facility] Work Phone: 1(286) 465-347509-26-2023 Discharge summary Author Chuck Chacon [facility] March 07, 2023 9:30am Note Date/Time March 07, 2023 9:30am [facility] [address] [place] [address] Discharge Summary Signed Patient: Steven Harding MR#: [id number] : 1940 Acct:[id number] Age/Sex: 83 / F Adm Date: 3 Loc: Room: [address] [place] [address]: Chuck Chacon MD Copies to: [...] been attempted on scopolamine patch, and her military professional had decreased herlosartan dose. She presented again [...] follow-up with her primary care physician and military professional as an outpatient for further management. She may be reintroduced to some of her cardioprotective antihypertensives in the future if deemed reasonable by her military professional and primary care physician. 35 minutes spent [...] TABLET BY MOUTH TWICE DAILY thyroid (pork) [INVENTORY CONTROL SPECIALIST Thyroid] 60 mg tablet 60 mg PO [...] <Electronically signed by Chuck Chacon MD> 03/07/23929 [facility] Work Phone: 1(104) 883-698809-25-2023 Progress note Author Chuck Chacon [facility] March 06, 2023 1:51pm Note Date/Time March 06, 2023 1:38pm [facility] [address] [place] [address] Hospitalist Progress Note Signed Patient: Steven Harding MR#: [id number] : 1940 Acct:[id number] Age/Sex: 83 / F Adm Date: 3 Loc: Room: [address] [place] [address] Type: ADM INOo Attending Dr: Chuck Chacon [...] 1,000 Ml IV 03/07/23 07:49 60 mls/hr .[id number] YVROSE Administration Insulin Aspart 0 units 03/06/23 [...] be improved from previous assessment during patient's MD -We will trend orthostatic vital signs -Monitor on telemetry for at least 24 hours -Continue metoprolol, continue to hold losartan, spironolactone and nifedipine for now -May consider restarting low doses in the a.m.-patient has lost close to 60 pounds since her MD-likely that BP medications are more potent -PT/OT [...] status Documented By: Chuck Chacon MD 3 2256 Signed By: <Electronically signed by Chuck Chacon MD> 03/06/23 1351 [facility] Work Phone: 1(468) 495-118909-25-2023 History and physical note Author Jemal Jones [facility] March 05, 2023 11:19pm Note Date/Time March 05, 2023 10:21pm [facility] [address] [place] [address] Hospitalist H&P Signed Patient: Steven Harding MR#: [id number] : 1940 Acct:[id number] Age/Sex: 83 / F Adm Date: 3 Loc: Room: [address] [place] [address] Type: ADM INOo Attending Dr: Jemal Jones [...] current visual changes, headache. Noted that her military professional has recently decreased her losartan due to [...] except as mentioned elsewhere in the documentation [facility] Medical History Aneurysm Aortic. Being monitored. Per pt found at [facility] during last visit there in January of [...] Confirmed 03/05/23] thyroid (pork) 60 mg tablet (INVENTORY CONTROL SPECIALIST Thyroid) 60 mg PO BID 01/18/22 [History [...] % (Auto) 14.7 % (.) 03/05/23 18:07 [place] % (Auto) 5.4 % (.) 03/05/23 18:07 Eos % (Auto) 2.8 % (.) 03/05/23 18:07 Baso % (Auto) 0.5 % (.) 03/05/23 18:07 Nucleat RBC Rel Count 0.1 /100 WBC (0-0.5) 03/05/23 18:07 Neut # (Auto) 8.7 x10E3/uL (1.8-7.7) H 03/05/23 18:07 Lymph # (Auto) 1.7 x10E3/uL (1.00-4.8) 03/05/23 18:07 [place] # (Auto) 0.6 x10E3/uL (0.0-0.8) 03/05/23 18:07 [...] <Electronically signed by Jemal Jones MD> 03/05/23 0497 [facility] Work Phone: 1(862) 542-896008-25-2022 [facility] Progress note Author Wiley Beal [facility] January 20, 2022 1:31pm Note Date/Time January 20, 2022 1: 31pm [facility] [address] [place] [address] Hospitalist Progress Note Signed Patient: Steven Harding MR#: [id number] : 1940 Acct:[id number] Age/Sex: 81 / F Adm Date: 2 Loc: Room: 5Q1651-2 Type: ADM IN Attending Dr: Wiley Beal [...] of care and confirmed it with the resident/student/INVENTORY CONTROL SPECIALIST. Patient was seen and examined at bedside [...] Insuln.Pen SUBCUT 01/19/23 07:59 Not Given TID.WM.HS [facility] Protocol Losartan Potassium 100 mg 01/18/22 23:10 [...] signed by Wiley Beal MD> 01/20/22 1331 [facility] Work Phone: 1(860) 250-393908-11-2022 [facility] Procedure [facility]08-10-2022 Progress note Author Wiley Beal [facility] January 19, 2022 1:35pm Note Date/Time January 19, 2022 1: 35pm [facility] [address] [place] [address] Hospitalist Progress Note Signed Patient: Steven Harding MR#: [id number] : 1940 Acct:[id number] Age/Sex: 81 / F Adm Date: 2 Loc: 4 Room: [address] [place] [address] Type: ADM IN Attending Dr: Wiley Beal [...] pain. [facility] he pain is much better CXR [facility] ED reported as no acute cardiopulmonary abnormality EKG [facility] ED (i personally reviewed it) shows NSR@90 bpm no significant acute changes nitro patch(started in [place] [facility]) Morphine prn Telemetry Antiplatelet: Aspirin Anticoagulation: Heparin Drip (started in [place] ED) Start Beta sarbjit therapy Serial EKGs [...] bedside Documented By: Wiley Beal MD 01/19/22 3582 Signed By: <Electronically signed by Wiley Beal MD> 01/19/22 4853 [facility] Work Phone: 1(764) 378-139008-10-2022 Consult note Author Karli Dougherty [facility] January 19, 2022 12:38pm Note Date/Time January 19, 2022 12 :25pm [facility] [address] [place] [address] Cardiology Consult Note Signed with Addenda Patient: Steven Harding MR#: [id number] : 1940 Acct:[id number] Age/Sex: 81 / F Adm Date: 2 Loc: Room: [address] [place] [address] Type: ADM IN Attending Dr: Wiley Beal [...] Confirmed 01/18/22] thyroid (pork) 60 mg tablet (INVENTORY CONTROL SPECIALIST Thyroid) 60 mg PO DAILY 01/18/22 [History [...] x10E3/uL Lymph # (Auto) 1.5 (1.00-4.8) x10E3/uL [place] # (Auto) 0.4 (0.0-0.8) x10E3/uL Eos # [...] signed by MD Karli Dougherty> 01/19/22 1237 [facility] Work Phone: 1(682) 980-752008-10-2022 History and physical note Author Justa Westfall [facility] January 19, 2022 7:35am Note Date/Time January 18, 2022 11: 29pm [facility] [address] [place] [address] Hospitalist H&P Signed Patient: Steven Harding MR#: [id number] : 1940 Acct:[id number] Age/Sex: 81 / F Adm Date: 2 Loc: Room: [address] [place] [address] Type: ADM IN Attending Dr: Justa Westfall MD Copies to: MD Justa Santos MD~ HPI DATE OF EXAMINATION: 01/18/22 HISTORY OF PRESENT ILLNESS: This is a pleasant 81F with PMH of HTN, PAD(s/p stenting), Prediabetes, Hypothyroidism who p/w chest pain to the [facility] and transferred for the evaluation and treatment [...] all negative except what [facility] Vaccinated for COVID-19?: Unknown Medical History (Updated [...] Confirmed 01/18/22] thyroid (pork) 60 mg tablet (INVENTORY CONTROL SPECIALIST Thyroid) 60 mg PO DAILY 01/18/22 [History [...] pain. [facility] [place] [facility] he pain is much better CXR [facility] ED reported as no acute cardiopulmonary abnormality EKG [facility] ED (i personally reviewed it) shows NSR@90 bpm no significant acute changes nitro patch(started in [place] [facility]) Morphine prn Telemetry Antiplatelet: Aspirin Anticoagulation: Heparin Drip (started in [place] [facility]) Start Beta sarbjit therapy Serial EKGs [...] bedside Documented By: Justa Westfall MD 01/18/22 3833 Signed By: <Electronically signed by Justa Westfall MD> 01/19/22 4089 [facility] Work Phone: 1(294) 371-140307-23-2022 Evaluation note* Encounter Date Diagnosis Assessment Notes [...] worsening symptoms or concerns. You may use payq-vua-fkagazi lidocaine gel to the rash for comfort. Patient reports her water quality specialist is Dr. Lenz, she will follow-up with them on Monday. Dr [facility] Other 03-15-2022 History of Present illness Narrative* [...] and importance of staying active and exercise [facility] 250 DO Work Phone: Discharge summary Author Wiley Beal [facility] January 22, 2022 4:43pm Note Date/Time January 21, 2022 1: 46pm [facility] [address] [place] [address] Discharge Summary Signed Patient: Steven Harding MR#: [id number] : 1940 Acct:[id number] Age/Sex: 81 / F Adm Date: 2 Loc: 4 Room: 0G4452-[address]: Wiley Beal MD Copies to: [...] was anticoagulated with heparin, taken to the [facility]. On January 19, she was found to [...] % (Auto) 74.5, Lymph % (Auto) 14.2, [place] % (Auto) 6.7, Eos % (Auto) 4.2, Baso % (Auto) 0.4, Neut # (Auto) 6.3, Lymph # (Auto) 1.2, [place] # (Auto) 0.6, Eos# (Auto) 0.4, Baso [...] You are scheduled for STAGED ANGIOPLASTY at [facility] on 02/03/2022 at 1:00pm with Dr Hooks; please check in at 11:00am- follow instructions You are scheduled for COVID testing at [facility] on 02/01/2022 at 10:00am for upcoming [...] doctor or pharmacist, without first calling the military professional who implanted the stent. If you require [...] weight lifting, stair steppers, etc. until the military professional approves these activities. Check with the military professional on your first follow-up visit. CALL YOUR PHYSICIAN at [phone]: -If bleeding should occur from the catheter insertion site- apply pressure to the site then immediately call us. -Report any fever, redness, drainage, increased swelling, or firmness at the catheter insertion site. Some bruising or slight swelling may be present at thetime of discharge. -Should arm or leg become cold, numb, white, or blue, contact the military professional immediately. -IF you should experience episodes of [...] is recommended. Please call Central Scheduling at [phone] to schedule your appointment.] The attending military professional or [facility] nurse clinician should provide you with specific instructions regarding activity, diet, medications, and further follow up for you. Follow the medication instructions provided on your discharge. If the dosages and instructions on this sheet differ from the dosage and instructions on the bottle, follow the instructions on the bottle. [facility] is not responsible for incorrect prescription [...] tablet 100 mg PO DAILY thyroid (pork) [INVENTORY CONTROL SPECIALIST Thyroid] 60 mg tablet 60 mg PO DAILY Label Comments: TAKE 1 TABLET BY MOUTH TWICE DAILY ON AN EMPTY STOMACH Other Ambulatory Orders: Basic Metabolic Panel (Routine) Timeframe: 20220125 Location: Determined by Patient Ordered By: Diony Hooks Follow Up: [facility] [Outside] - 01/27/22 4:00 pm Documented By: Wiley Beal MD 01/21/22 1342 Signed By: <Electronically signed by Wiley Beal MD> 01/22/22 1643 [facility] Work Phone: Discharge summary [facility] 14, 2023 3:31pm Note Date/Time March 14, 2023 3: 31pm [facility] [address] [place] [address] Discharge Summary Signed Patient: Steven Harding MR#: [id number] : 1940 Acct:[id number] Age/Sex: 83 / F Adm Date: 3 Loc: Room: [address] [place] [address]: Rufus Ricks DO Copies to: [...] DAILY Qty: 30 0RF Held thyroid (pork) [INVENTORY CONTROL SPECIALIST Thyroid] 60 mg tablet 60 mg PO [...] signed by Rufus Ricks DO> 03/14/23 1531 [facility] Work Phone: Evaluation note* Diagnosis Onset Date Resolution Status ACS (acute coronary syndrome) acute Hypertension acute Hypothyroidism acute NSTEMI (non-ST elevated myocardial infarction) acute Peripheral vascular disease acute Prediabetes acute [facility] Work Phone: Evaluation note* Diagnosis Onset Date Resolution Status Dizziness acute [facility] Work Phone: Evaluation note* Diagnosis Onset Date Resolution Status Acute hyponatremia acute Dizziness acute Pre-syncope acute [facility] Work Phone: evaluation note* Diagnosis Onset Date Resolution Status Acute hyponatremia acute Dizziness acute Pre-syncope acute Acute hyponatremia acute CAD (coronary artery disease) acute Hypertensive urgency acute Hypothyroidism acute [facility] Work Phone: Evaluation note* Diagnosis Coronary artery disease involving [place] coronary artery of [place] heart without angina pectoris- Primary Status post percutaneous transluminal coronary angioplasty Postsurgical percutaneous transluminal coronary angioplasty status Mixed hyperlipidemia Hypertension, benign Essential hypertension, benign Dyspnea on exertion Other dyspnea and respiratory abnormality BMI 27.0-27.9,adult Former smoker Personal history of tobacco use, presenting hazards to health documented in this encounter [facility] Work Phone: History and physical note Author Sima Hdz [facility] March 12, 2023 7:49pm Note Date/Time March 12, 2023 7: 50pm [facility] [address] [place] [address] Hospitalist H&P Signed Patient: Steven Harding MR#: [id number] : 1940 Acct:[id number] Age/Sex: 83 / F Adm Date: 3 Loc: Room: [address] [place] [address] Type: ADM IN Attending Dr: Sima Hdz [...] negative unless noted below or in HPI [facility] Medical History Aneurysm Aortic. Being monitored. Per pt found at [facility] during last visit there in January of [...] Confirmed 03/05/23] thyroid (pork) 60 mg tablet (INVENTORY CONTROL SPECIALIST Thyroid) 60 mg PO BID 01/18/22 [History [...] % (Auto) 13.2 % (.) 03/12/23 14:45 [place] % (Auto) 5.1 % (.) 03/12/23 14:45 Eos % (Auto) 2.0 % (.) 03/12/23 14:45 Baso % (Auto) 0.4 % (.) 03/12/23 14:45 Nucleat RBC Rel Count 0.0 /100 WBC (0-0.5) 03/12/23 14:45 Neut # (Auto) 7.0 x10E3/uL (1.8-7.7) 03/12/23 14:45 Lymph # (Auto) 1.2 x10E3/uL (1.00-4.8) 03/12/23 14:45 [place] # (Auto) 0.5 x10E3/uL (0.0-0.8) 03/12/23 14:45 [...] pH 7.5 (5.0-9.0) 03/12/23 15:55 Ur Specific [place] 1.010 (1.001-1.030) 03/12/23 15:55 Urine Protein Negative [...] Hyponatremia of 128. TSH was suppressed on [place] Thyroid and has been checked twice with [...] <Electronically signed by Sima Hdz MD> 03/12/231948 [facility] Work Phone: History general Narrative - Reported* Type Description Date Medical History Hypertension Medical History Insulin Resistant Surgical History teeth extraction upper Surgical History skin cancer removal 2018 Hospitalization History see above Dr Sears [facility] Other History of Present illness Narrative* The [...] the patient complains of medication side effects. [facility] 250 DO Work Phone: History of Present [...] medication regimen. She denies medication side effects. [facility] 600 DO Work Phone: History of Present [...] her back in 6 months and follow-up [facility] 250 DO Work Phone: [facility]: [facility] Work Phone[facility] Work Phone: Progress note Author Wiley Beal [facility] January 21, 2022 1:42pm Note Date/Time January 21, 2022 1: 42pm [facility] [address] [place] [address] Hospitalist Progress Note Signed Patient: Steven Harding MR#: [id number] : 1940 Acct:[id number] Age/Sex: 81 / F Adm Date: 2 Loc: Room: [address] [place] [address] Type: ADM IN Attending Dr: Wiley Beal [...] of care and confirmed it with the resident/student/INVENTORY CONTROL SPECIALIST. Patient was seen and examined at bedside [...] Insuln.Pen SUBCUT 01/19/23 07:59 Not Given TID.WM.HS [facility] Protocol Losartan Potassium 100 mg 01/18/22 23:10 01/21/22 08:42 Losartan 50 Mg Tablet PO 01/18/23 23:09 100 mg DAILY Y[facility]ROSE Administration Metoprolol Tartrate 25 mg 01/18/22 23:15 01/21/22 08:42 Metoprolol Tartrate 25 Mg Tablet PO 01/18/23 23:14 25 mg BID [facility] Administration Miscellaneous Information 1 each 01/20/22 09:05 Consult To Pharmacy MISCELLANE 01/20/23 09:04 .PHACONSULT PRN ZZ.Pharmacy Consult Protocol Morphine Sulfate 1 mg 01/18/22 22:38 Morphine Sulfate 2 Mg/Ml Vial IV-PUSH Q4H PRN Pain Scale 7 - 10 Nifedipine 60 mg 01/19/22 11:30 01/21/22 08:41 Nifedipine Er.24hr 60 Mg Tab.Er.24 PO 01/19/23 11:29 60 mg DAILY [facility] Administration Nitroglycerin 0.4 mg 01/20/22 13:52 Nitroglycerin [...] signed by Wiley Beal MD> 01/21/22 1342 [facility] Work Phone: Reason for referral (narrative)* Consultation (Routine) - Authorized Specialty Diagnoses / Procedures Referred By Contac t Referred To Contact Cardiology Diagnoses Coronary artery disease involving [place] coronary artery of [place] heart without angina pectoris Procedures Follow Up In Cardiology Karli Dougehrty MD [address] [place] [address] 2, Manolo [address] [place] [address] Karli Dougherty MD [address] [place] [address] 2, [address] [address] Referral ID Status Reason Start Date Expiration Date V isits Requested Visits Authorized [id number] Authorized 08/31/2023 08/30/[address] [facility] Work Phone: Chief Complaint and Reason [...] pain. * Patient was recently hospitalized at [facility]. The patient was seen in Cardiology consult with subsequent cardiovascular management by [facility]. Hospitalization records have been reviewed. * Reason for Cardiology Consultation: ACS * Consulting Student Counselor: Dr. Dougherty * Cardiovascular testing: Echo, cath with subsequent PCI * Changes to cardiovascular medical regimen at time of discharge: ASA, brilinta, lipitor lopressor, aldactone * Discharge disposition: Home * Reports admit at [facility] d/t 'kidney pain and being dehydrated'. Spironolactone [...] tomorrow * 3. Begin cardiac rehab at [facility] * 4. Lipid profile in 2 months (new statin initiation) * 5. Keep scheduled f/u in 6 weeks to reassess * 6. Obtain CT from [facility] to verify surveillance testing. * 7. RN [...] MD Admit Provider, Attending Provi mireille Active [employer] Coating Machine Tender Relationship Specialty Start Date End Date Priyanka Puentes MD [address] [place] [address] (Fax) PCP - [facility]CO Re[facility] 11/03/22 Priyanka Puentes MD [address] [place] [address] PCP - General Family Medicine 12/21/22 Karli Dougherty MD [address] [address] Referring Physician Cardiology 07/20/23 [employer] Co[employer] Machine Tender Relationship Specialty Start Date End Date Priyanka Puentes MD [address] [place] [address] PCP - General 06/12/99 INFORMATION SOURCE (unrecogn ized section and content) DATE CREATED AUTHOR 10/18/2022 [facility] DATE CREATED AUTHOR AUTHOR'S ORGANIZ ATION 02/18/2023 [employer] DATE CREATED AUTHOR AUTHOR'S ORGANIZ ATION 03/15/2023 [facility] DATE CREATED AUTHOR AUTHOR'S ORGANIZ ATION 03/18/2023 [facility] DATE CREATED AUTHOR AUTHOR'S ORGANIZ ATION 09/01/2023 [facility] DATE CREATED AUTHOR AUTHOR'S ORGANIZ ATION 12/14/2023 [facility] Specialists EPIC Goals (unrecognized section and [...] BE BASED ON THE PRIMARY CLINICAL RECORDS. [employer] provides no warranty or guarantee of the accuracy or completeness of information in this document.
[2024-01-23 13:01] LABS: Anion Gap 11.1; BUN Creatinine Ratio 13.8; Calcium 9.5 mg/dL (8.5-10.1); Carbon Dioxide 28.8 mmol/L (21.0-32.0); Chloride 99 mmol/L (98-107); Estimated GFR (African America >60 (>=60); Estimated GFR (Non-African Ame >60 (>=60); Glucose 82 mg/dL (74-106); Potassium 4.9 mmol/L (3.5-5.1); Sodium 134 mmol/L (136-145)
== END 2024-01-23 12:05 | disposition home or self-care (01) ==
LOC: LAB 12:07
PROVIDERS: PCP Family Medicine; Visit Provider Family Medicine
DX: I12.9 Hypertensive chronic kidney disease with stage 1 through stage 4 chronic kidney disease, or unspecified chronic kidney disease (principal); N18.31 Chronic kidney disease, stage 3a; R73.02 Impaired glucose tolerance (oral)
CPT/HCPCS: 36415; 80048

== ENCOUNTER 2024-05-17 10:24 | Outpatient (OUT) | payer MEDICARE, OTHER, SELFPAY ==
[2024-05-17 12:40] LABS: Alanine Aminotransferase 24 U/L (14-59); Albumin Globulin Ratio 1.3; Alkaline Phosphatase 48 U/L (46-116); Anion Gap 13.4; Aspartate Amino Transferase 13 U/L (15-37); BUN Creatinine Ratio 19.6; Bilirubin Total 0.6 mg/dL (0.2-1.0); Calcium 9.1 mg/dL (8.5-10.1); Carbon Dioxide 28.9 mmol/L (21.0-32.0); Chloride 97 mmol/L (98-107); Chol HDL Ratio 1.8; Cholesterol 144 mg/dL (<=200); Estimated GFR (African America 56 (>=60 mL/min/1.73m^2); Estimated GFR (Non-African Ame 47 (>=60 mL/min/1.73m^2); Globulin 3.2 g/dL; Glucose 102 mg/dL (74-106); HDL Cholesterol 80 mg/dL (40-60); Potassium 4.3 mmol/L (3.5-5.1); Sodium 135 mmol/L (136-145); Total Protein 7.2 g/dL (6.4-8.2); Triglycerides 61 mg/dL (<=150); VLDL CHOLESTEROL 12.2 mg/dL
== END 2024-05-17 10:25 | disposition home or self-care (01) ==
LOC: LAB 10:27
PROVIDERS: PCP Family Medicine; Visit Provider Internal Medicine Cardiovascular Disease
DX: E78.2 Mixed hyperlipidemia (principal); I10 Essential (primary) hypertension
CPT/HCPCS: 36415; 80053; 80061

== ENCOUNTER 2024-05-21 10:38 | Outpatient (OUT) | payer MEDICARE, OTHER, SELFPAY ==
--- NOTE | 2024-05-21 11:16 | XR_ITS ---
The [address] [address] Patient Name: STEVEN BENTON MRN: [id number] date: 1940 Sex: F Assigned Patient Location: [facility] Current Patient Location: LAB Accession/Order Number: [id number] Exam Date: 05/21/2024 11:08 Report Date: 05/23/2024 04:29 At the request of: PRIYANKA PUENTES Procedure: XR lumbar spine min 4V EXAMINATION: XR lumbar spine min 4V HISTORY: Acute Right Sided Low Back Pain With Right Sided Sciatica COMPARISON: CT abdomen pelvis 01/27/2022 FINDINGS: BONES: Multilevel mild-moderate degenerative facet arthropathy. No fracture, spondylolisthesis, or bone lesion. DISC SPACES: No significant disc height narrowing, subluxation, or endplate abnormality. 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 Right common iliac artery endovascular stent. OTHER: Negative. XR/XR lumbar spine min 4V IMPRESSION: 1. Multilevel mild degenerative facet arthropathy. No appreciable acute abnormality or significant change. 2. 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 Allowing for differences in technique, this appears to have increased in size since prior study. Electronically authenticated by: WYATT ESPINOZA Date: 05/23/2024 04:29
== END 2024-05-21 10:39 | disposition home or self-care (01) ==
LOC: RAD 10:39
PROVIDERS: PCP Family Medicine; Visit Provider Family Medicine
DX: M54.41 Lumbago with sciatica, right side (principal); M53.3 Sacrococcygeal disorders, not elsewhere classified; M51.369 Other intervertebral disc degeneration, lumbar region without mention of lumbar back pain or lower extremity pain; I71.40 Abdominal aortic aneurysm, without rupture, unspecified
CPT/HCPCS: 72110

== ENCOUNTER 2024-06-11 10:21 | Outpatient (OUT) | payer MEDICARE, OTHER, SELFPAY ==
--- NOTE | 2024-06-11 10:31 | XR_ITS ---
The [address] [address] Patient Name: STEVEN BENTON MRN: [id number] date: 1940 Sex: F Assigned Patient Location: [facility] Current Patient Location: Accession/Order Number: [id number] Exam Date: 06/11/2024 10:40 Report Date: 06/12/2024 04:56 At the request of: PRIYANKA PUENTES Procedure: XR hip RT min 2V PROCEDURE: XR hip RT min 2V HISTORY: Acute Right Sided Low Back Pain, Right Hip Pain COMPARISON: None. FINDINGS: BONES:Degenerative osteophytes along the articular margins. Mild joint space narrowing. No fracture or dislocation. Degenerative changes of the sacroiliac joint. SOFT TISSUES:No visible soft tissue swelling. EFFUSION:None visible. OTHER: Negative. XR/XR hip RT min 2V IMPRESSION: 1. No appreciable acute abnormality. 2. 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 Electronically authenticated by: WYATT ESPINOZA Date: 06/12/2024 04:56
--- OUTSIDE RECORDS SUMMARY | 2024-06-11 10:42 | XMS_ITS | CCD ---
Author Organization [facility] Care Team Providers Care Biology Laboratory Assistant Name Role Phone Eva Panda Unavailable MD Priyanka Puentes Primary Care Provider MD Justa Westfall Admit Provider MD Wiley Beal Attending Provider [phone] DEONTE Monzon Other Provider Unavailable DO Isaiah Cordova Other Provider MD Vik Segura Other Provider MD Moshe Hernandez Other Provider MD Karli Dougherty Other Provider MD Anatoly Massey Other Provider FRANCOIS Mercado Other Provider MD Almita Asif Other Provider MD Dora Levine Other Provider MD Lydia Kern Other Provider MD Diony Hooks Attending Provider [phone] Priyanka Puentes Unavailable Unavailable Unavailable DR ANUM WOODY Admitting Unavailable HEMEBUD ., DR MATHEW Consulting Unavailable DR ANUM WOODY Attending Unavailable HEMEUBD ., DR MATHEW Primary Care Unavailable HEMEYER ., DR MATHEW Admitting Unavailable HEMEBUD ., DR MATHEW Attending Unavailable HEMEBUD ., DR MATHEW Consulting Unavailable DHAVAL ., DR MATHEW Primary Care Unavailable HEMEYER ., DR MATHEW Primary Care Unavailable PRANAY KHANH Consulting Unavailable PRANAY, KHANH Admitting Unavailable [...] Unavailable HEMEYER ., DR MATHEW Consulting Unavailable HEMEYER ., DR MATHEW Primary Care Unavailable MD Priyanka Puentes Primary Care Provider MD Monique Tierney Emergency Provider [phone] MD Jemal Jones Admit Provider MD Jemal Jones Attending Provider MD Chuck Chacon Attending Provider [phone] SHANTEL Dhillon Emergency Provider MD Sima Hdz Admit Provider MD Sima Hdz Attending Provider [facility] Rufus Bosch Attending Provider Dr. Priyanka Puentes Primary Care Unava Karli Horvath Attending Unavailable Ms. Hung Khanh Sophie Baitsta Referring Saravai xiomy Puentes, Dr. Priyanka Ramey Primary Care Unava ilKarli Whalen Referring Unavailable Karli Dougherty Attending Unavailable Dhaval, Dr. Priyanka Ramey Primary Care Unava ilable Hung, Ms. Francorenu Batista Attending Goyo Puentes, Dr. Priyanka Ramey Primary Care Lilliana Persaud, . Khanh Sophie Batista Referring Priyanka Conway Primary Care Unavailable Chuck Chacon Attending Unavailab Jemal Dominguez Admitting Unavailable Sima Hdz Admitting Unavailable Priyanka Puentes Primary Care Unavailable Rufus Ricks Attending Unavailable Priyanka Puentes MD Unavailable Priyanka Puentes MD Primary Care Provider Karli Dougherty MD Unavailable [phone] Priyanka Puentes MD Primary Care Provider Priyanka Puentes MD Primary Care Provider KARLI DOUGHERTY Attending Unavailable PRIYANKA PUENTES Primary Care Unavailable KARLI DOUGHERTY Attending Unavailable KARLI DOUGHERTY Referring Unavailable PRIYANKA PUENTES Primary Care Unavailable Priyanka Puentes MD Unavailable Priyanka Puentes MD Primary Care Provider PRIYANKA PUENTES Attending Unavailable PRIYANKA PUENTES Attending Unavailable PRIYANKA PUENTES Attending Unavailable PRIYANKA PUENTES Attending Unavailable PRIYANKA PUENTES Attending Unavailable PRIYANKA PUENTES Attending Unavailable Priyanka Puentes MD Unavailable Priyanka Puentes MD Primary Care Provider Allergies Allergy Classification Reported Allergen(s) Allergy Type Date of Onset Reaction(s) Facility (1 source) diphenhydrAMINE Drug Allergy anaphylaxis [facility] Other (7 sources) Ticagrelor; Translations: [Brilinta TABS] Drug Allergy 03-17-20 23 [facility] (4 sources) Codeine; Translations: [CODEINE] Drug Allergy 01-18-20 23 Shakiness [facility] (1 source) Penicillin Drug Allergy 01-19-20 22 [facility] (2 sources) Ticagrelor; Translations: [TICAGRELOR] Drug Allergy 01-25-20 22 [facility] (1 source) Antihistamines - Ethanolamine Drug allergy (disorder) 01-27-20 [facility] (2 sources) Antihistamines Allergy to substance 03-12-20 [facility] (6 sources) Calcium Citrate Drug Allergy 01-18-20 [facility] (6 sources) Cephalexin Drug Allergy 01-18-20 23 Hives [facility] (6 sources) Ciprofloxacin Drug Allergy 01-18-20 23 [facility] (9 sources) Clindamycin; Translations: [CLINDAMYCIN] Drug Allergy 01-18-20 23 Diarrhea [facility] (8 sources) Codeine Drug Allergy 01-18-20 23 Unknown [facility] (6 sources) diphenhydrAMINE Drug Allergy 01-18-20 [facility] (7 sources) Minocycline; Translations: [MINOCYCLINE] Drug Allergy 01-18-20 Diarrhea [facility] (6 sources) Erythromycin Base Drug Allergy 01-18-20 Hives [facility] (2 sources) Minocycline Drug Allergy 01-18-20 Diarrhea [facility] Work Phone: Medications Current Medications Medication Drug Class(es) Dates Sig (Normalized) Sig (Original) albuterol 0.83 mg/ml inhalation solution (19 sources) beta2-Adrenergic Agonist Start: 07-05-2023 End: 07-04-2024 [...] shortness of breath 18 g 3 07/05/2023 Active albuterol (Maria C navid HFA) 90 mcg/actuation inhaler Inhale if needed. Active Ventolin HFA 108 (90 Base) MCG/ACT Inhalation Aerosol Solution USE DIRECTED Quantity: 0 Refills: 0 Ordered: 17-Mar-2022 DO Active amLODIPine 5 mg oral tablet (9 sources) Dihydropyridine Calcium Channel Sarbjit Start: 01-30-2024 End: 07-28-2024 take 1 tablet by mouth in the morning amLODIPine (Norvasc) 5 MG tablet Indications: Benign essential hypertension (CMS/HCC) Take 1 tablet (5 mg) by mouth in the morning. 90 tablet 1 01/30/2024 07/28/2024 Active Start: 03-14-2023 End: 08-11-2023 amLODIPine (Norvasc) 5 mg ta blet 1 tablet (5 mg) once daily. 03/14/2023 Active aspirin 81 mg chewable tablet (20 sources) Platelet Aggregation Inhibitor, Nonsteroidal Anti-inflammatory Drug Start: 01-21-2022 take 1 tablet by mouth once daily Aspirin (Children's Aspirin) 81 mg Tablet,Chewable Active 81 MG PO Daily 0 January 21, 2022 12:00am take 1 tablet by mouth once hattie y aspirin EC 81 MG EC tablet Take 81 mg by mouth 1 (one) time each day at the same time. Active atorvastatin 80 mg oral tablet (20 sources) HMG-CoA Reductase Inhibitor Start: 01-21-2022 End: 08-31-2023 take 1 tablet by mouth once daily atorvastatin (Lipitor) 80 MG tablet Take 80 mg by mouth 1 (one) time each day at the same time. 01/21/2022 Active B Complex Vitamins (vitamin B complex) tablet (5 sources) take 1 tablet by mouth once daily B Complex Vitamins (vitamin B complex) tablet Take 1 tablet by mouth Daily Active busPIRone hydrochloride 5 mg oral tablet (3 [...] Dec, Active clopidogrel 75 mg oral tablet (20 sources) P2Y12 Platelet Inhibitor Start: 02-15-2022 End: 11-22-2024 take 1 tablet by mouth once daily clopidogrel (Plavix) 75 mg tablet Indications: Coronary angioplasty status , PAD (peripheral artery disease) (CMS-HCC) Take 1 tablet (75 mg) by mouth once daily. 90 tablet 3 11/23/2023 11/22/2024 Active Start: 02-15-2022 take 4 tablets by mo uth once daily Clopidogrel Bisulfate 75 MG Oral Tablet Take 4 tablets (300mg) on day #1 then take one tablet daily Quantity: 30 Refills: 11 Ordered: 15-Feb-2022 Lester Persaud GUIDE DOG INSTRUCTOR-AGITATOR OPERATOR, Khanh Start : 15-Feb-2022 Active CRANBERRY CONCENTRATE PO (5 sources) take 1 tablet by mouth once daily CRANBERRY CONCENTRATE PO Take 1 tablet by mouth Daily Active cranberry preparation 500 mg oral capsule (1 source) Non-Standardized Food Allergenic Extract, Non-Standardized Plant Allergenic Extract take 1 capsule by mouth in the morning cranberry 500 mg capsule Take 1 capsule by mouth early in the morning.. Active gabapentin 100 mg oral capsule (1 source) Anti-epileptic Agent Start: 05-20-20 gabapentin (Neurontin) 100 MG capsule Indications: Acute right-sided low back pain with right-sided sciatica Titrate from 1 to 4 capsules three times daily as needed for pain 100 capsule 05/20/2024 Active levothyroxine sodium 0.112 mg oral tablet (8 sources) l-Thyroxine Start: 08-08-19 End: 11-06-19 take 1 tablet by mouth before mealtime levothyroxine (Synthroid) 112 MCG tablet Indications: Hypothyroidism, unspecified type (CMS/HCC) Take 1 tablet (112 mcg) by mouth in the morning. Take before meals. 90 tablet 3 08/08/2023 Active Start: 07-12-2023 End: 10-10-2023 take 1 tablet by mouth before mealtime levothyroxine (Synthroid) 150 MCG tablet Indications: Hypothyroidism, unspecified type (CMS/HCC) Take 1 tablet (150 mcg) by mouth in the morning. Take before meals. 90 tablet 3 07/12/2023 10/10/2023 Active Lisinopril (1 source) Angiotensin Converting Enzyme Inhibitor Lisinopril Active magnesium oxide 400 mg oral tablet (11 sources) Start: 03-07-2023 End: 08-31-2023 take 400 mg by mouth once daily Magnesium Oxide Active 400 MG PO Daily March 07, 2023 12:00am take 1 tablet by mouth in the mo rning magnesium oxide 500 mg magnesium tablet Take 1 tablet (500 mg) by mouth early in the morning.. Active metFORMIN hydrochloride 850 mg oral tablet (20 sources) Biguanide Start: 08-08-2023 End: 07-28-2024 take 1 tablet by mouth in the morning metFORMIN (Glucophage) 850 MG tablet Indications: Impaired glucose tolerance Take 1 tablet (850 mg) by mouth in the morning and 1 tablet (850 mg) in the evening. Take with meals. 180 tablet 1 01/30/2024 07/28/2024 Active Start: 01-18-2022 End: 08-31-2023 take 1 [...] Active metoprolol tartrate 25 mg oral tablet (20 sources) beta-Adrenergic Sarbjit Start: 04-23-2024 End: 04-23-2025 take 1 tablet by mouth twice daily metoprolol tartrate (Lopressor) 25 mg tablet Indications: Essential (primary) hypertension Take 1 tablet (25 mg) by mouth 2 times a day. 180 tablet 3 04/23/2024 04/23/2025 Active Start: 07-12-2023 End: 08-11-2023 take 0.5 tablet by mouth once metoprolol tartrate (Lop ressor) 25 MG tablet Indications: Benign essential hypertension (CMS/HCC) Take 0.5 tablets (12.5 mg) by mouth every 12 (twelve) hours 30 tablet 07/12/2023 Active Start: 03-14-2023 take 12.5 mg by mout h twice daily Metoprolol Tartrate Active 12.5 MG PO Twice daily 30 March 14, 2023 12:00am Start: 01-21-2022 End: 03-14-2023 take 25 mg by mouth twice daily Metoprolol Tartrate Di scontinued 25 MG PO Twice daily 60 30 January 21, 2022 12:00am March 14, 2023 10:47am nabumetone 500 mg oral tablet (4 sources) Nonsteroidal Anti-inflammatory Drug Start: 05-14-2024 End: 06-13-2024 take 1 tablet by mouth in the morning nabumetone (Relafen) 500 MG tablet Indications: Acute right-sided low back pain with right-sided sciatica Take 1 tablet (500 mg) by mouth in the morning and 1 tablet (500 mg) before bedtime. 60 tablet 05/14/2024 06/13/2024 Active naproxen sodium 220 mg oral tablet (6 sources) Nonsteroidal Anti-inflammatory Drug take 1 tablet by mouth twice daily as needed naproxen sodium (Aleve) 220 MG tablet Take 220 mg by mouth 2 (two) times a day as needed. 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 1 each 0 07/05/2023 07/04/2024 Active nitroglycerin 0.4 mg sublingual tablet (20 sources) Nitrate Vasodilator Start: 01-21-2022 nitroglycerin (Nitrostat) 0.[address] 0.4 mg under the tongue. 01/21/2022 Active oxybutynin chloride 5 mg oral tablet (20 sources) Cholinergic Muscarinic Antagonist Start: 01-14-2024 take 1 tablet by mouth in the morning oxybutynin (Ditropan) 5 MG tablet Take 5 mg by mouth in the morning and 5 mg before bedtime. 01/14/2024 Active Start: 01-18-2022 End: 10-10-2023 oxybutynin (Ditropan) 5 mg t ablet 1 tablet (5 mg) 2 times a day. 01/23/2023 Active Start: 11-11-2019 End: 01-18-2022 take 10 mg by mouth before mealtime Oxybutynin Chloride Discontinued 10 MG PO Before meals November 11, 2019 12:00am January 18, 2022 10:08pm take 1 tablet by angel th twice daily oxyBUTYnin Chloride ER 5 MG Oral Tablet Extended Release 24 Hour Take 1 tablet twice daily Quantity: 0 Refills: 0 Ordered: 15-Feb-2022 DO Active Oxybutynin Activ e potassium chloride 20 meq extended release oral tablet (7 sources) take 1 tablet by angel th once daily potassium chloride CR (K-Tab) 20 MEQ ER tablet Take 20 mEq by mouth Daily Do not crush, chew, or split. Active End: 05-08-2024 take 1 tablet by mouth once daily potassium chloride CR 20 mEq ER tablet Take 1 tablet (20 mEq) by mouth once daily. 05/08/2024 Discontinued (Therapy completed) potassium citrate 99 mg oral tablet (6 sources) take 1 capsule by mouth in the morning Potassium Citrate,Elemental K, 99 MG capsule Take 1 Capful by mouth in the morning. Active predniSONE 10 mg oral tablet (4 sources) Start: 05-14-2024 predniSONE (Deltasone) 10 MG tablet Indications: Acute right-sided low back pain with right-sided sciatica , Right hip pain , Pain of right sacroiliac joint Every 2 day tapering dose; 5,5,4,4,3,3,2,2,1,1,0.5,0.5 31 tablet 05/14/2024 Active Thyroid (Pork) (Finished Cigar Maker Thyroid) 60 mg tablet (4 sources) Start: 01-18-2022 take 1 tablet by mouth twice daily Thyroid (Pork) (Finished Cigar Maker Thyroid) 60 mg tablet Active 60 MG PO Twice daily January 18, 2022 12:00am thyroid ([facility]) 60 mg oral tablet (11 sources) Start: 01-18-2022 take 1 tablet by mouth twice daily Thyroid (Pork) (Finished Cigar Maker Thyroid) 60 mg tablet Active 60 MG PO Twice daily January 18, 2022 12:00am End: 08-31-2023 take 1 tablet by mouth once daily before mealtime thyroid, pork, (CIGARETTE MACHINES MECHANIC Thyroid) 60 mg tablet Take 1 tablet [...] 7 days Dec, Active Vitamin B Complex (2 sources) take 1 tablet by mouth once daily vitamin B complex tablet Take 1 tablet by mouth once daily. Active take 1 tablet by mouth once hattie y vitamin B complex tablet Take 1 tablet [...] daily Spironolactone Discontinued 25 MG PO Daily January 21, 2022 12:00am February 03, 2022 [...] Date Documented Date Episodic/Chronic Acute myocardial infarction (16 sources) Myocardial infarction; Translations: [Non-ST elevation (NSTEMI) myocardial infarction] Onset: 01-20-2022 01-18-2022 Chronic Aortic; peripheral; and visceral artery aneurysms (6 sources) Aneurysm of infrarenal abdominal aorta ; Translations: [Infrarenal abdominal aortic aneurysm, without rupture] Onset: 01-17-2023 01-17-2023 Chronic Asthma (6 sources) Allergic asthma; Translations: [Unspecified asthma, uncomplicated] Onset: 01-17-2023 01-17-2023 Chronic Cataract (12 sources) Bilateral pseudophakia; Translations: [Presence of intraocular lens] Onset: 01-17-2023 01-17-2023 Chronic Chronic kidney disease (12 sources) Chronic kidney disease, stage 2 (mild); Translations: [Chronic kidney disease stage 2] Onset: 08-16-2022 Resolved: 08-09-2023 01-17-2023 Chronic Chronic obstructive pulmonary disease and bronchiectasis (11 sources) Simple chronic bronchitis; Translations: [Simple chronic bronchitis] Onset: 01-17-2023 01-17-2023 Chronic Conditions associated with dizziness or vertigo (9 sources) Dizziness; Translations: [Dizziness and giddiness] Onset: 03-05-2023 03-05-2023 Episodic Coronary atherosclerosis and other heart disease (20 sources) Coronary arteriosclerosis; Translations: [Atherosclerotic heart disease of [place] coronary artery without angina pectoris] Onset: 06-14-2022 02-03-2022 Chronic Diabetes mellitus without complication (1 source) Type 2 diabetes mellitus without complications; Translations: [TYPE 2 DM WITHOUT COMPLICATIONS] Onset: 01-20-2022 Chronic Diseases of white blood cells (1 source) Elevated white blood cell count, unspecified; Translations: [ELEVATED WHITE BLOOD CELL COUNT UNS] Onset: 02-02-2022 Chronic Disorders of lipid metabolism (20 sources) Mixed hyperlipidemia; Translations: [Mixed hyperlipidemia] Onset: 08-16-2022 01-17-2023 Chronic Esophageal disorders (6 sources) Gastroesophageal reflux disease without esophagitis; Translations: [Gastro-esophageal reflux disease without esophagitis] Onset: 01-17-2023 01-17-2023 Chronic Essential hypertension (20 sources) Hypertensive disorder; Translations: [Essential (primary) hypertension] Onset: 01-20-2022 11-11-2019 Chronic Fluid and electrolyte disorders (10 sources) Hypo-osmolality and hyponatremia; Translations: [Acute hyponatremia] Onset: 02-02-2022 03-05-2023 Episodic Genitourinary symptoms and ill-defined conditions (6 sources) Urge incontinence of urine; Translations: [Urge incontinence] Onset: 01-17-2023 01-17-2023 Chronic Hypertension with complications and secondary hypertension (15 sources) Hypertensive chronic kidney disease with stage 1 through stage 4 chronic kidney disease, or unspecified chronic kidney disease; Translations: [Hypertensive urgency ] Onset: 08-15-2022 Chronic Malaise and fatigue (11 sources) Chronic fatigue, unspecified; Translations: [Fatigue] Onset: 04-12-2022 Chronic Nutritional deficiencies (6 sources) Vitamin D deficiency; Translations: [Vitamin D deficiency, unspecified] Onset: 01-17-2023 01-17-2023 Chronic Osteoarthritis (12 sources) Arthritis of left knee; Translations: [Unilateral primary osteoarthritis, left knee] Onset: 07-12-2016 01-17-2023 Chronic Other and ill-defined heart disease (6 sources) Diastolic dysfunction; Translations: [Other ill-defined heart diseases] Onset: 01-17-2023 01-17-2023 Chronic Other circulatory disease (6 sources) History of endovascular stent graft for repair of abdominal aortic aneurysm; Translations: [Presence of other vascular implants and grafts] Onset: 01-17-2023 01-17-2023 Chronic Other circulatory disease (6 sources) History of insertion of iliac stent; Translations: [Presence of other vascular implants and grafts] Onset: 01-17-2023 01-17-2023 Chronic Other circulatory disease (1 source) Orthostatic hypotension; Translations: [Orthostatic hypotension] Onset: 03-05-2023 Episodic Other ear and sense organ disorders (1 source) Disorder of external ear; Translations: [Unspecified otitis externa, left ear] Onset: 01-17-2023 01-17-2023 Chronic Other lower respiratory disease (6 sources) Pulmonary granuloma; Translations: [Pulmonary fibrosis, unspecified] Onset: 01-17-2023 01-17-2023 Chronic Other lower respiratory disease (6 sources) Post-inflammatory pulmonary fibrosis; Translations: [Pulmonary fibrosis, unspecified] Onset: 03-26-2016 01-19-2023 Chronic Other lower respiratory disease (2 sources) Dyspnea on exertion; Translations: [Other forms of dyspnea] 08-31-2023 Episodic Other nervous system disorders (6 sources) Chronic pain; Translations: [Other chronic pain] Onset: 01-17-2023 01-17-2023 Chronic Other non-traumatic joint disorders (2 sources) Hip pain; Translations: [Pain in right hip] 05-14-2024 Episodic Other nutritional; endocrine; and metabolic disorders (4 sources) Obesity; Translations: [Obesity, unspecified] Chronic Other nutritional; endocrine; and metabolic disorders (6 sources) Obese class I; Translations: [Obesity, unspecified] Onset: 01-17-2023 01-17-2023 Chronic Other nutritional; endocrine; and metabolic disorders (7 sources) Overweight in adulthood with body mass index of 25 or more but less than 30; Translations: [Overweight] Onset: 08-31-2023 08-31-2023 Episodic Other nutritional; endocrine; and metabolic disorders (2 sources) Body mass index (BMI) 29.0-29.9, adult; Translations: [Body mass index (BMI) 29.0-29.9, adult] Onset: 05-08-2024 Episodic Other nutritional; endocrine; and metabolic disorders (2 sources) Body mass index 25-29 - overweight; Translations: [Overweight] 05-14-2024 Episodic Other screening for suspected conditions (not mental disorders or infectious disease) (5 sources) Echocardiogram abnormal; Translations: [Nonspecific (abnormal) findings on radiological and other examination of other intrathoracic organs] Onset: 07-20-2022 Episodic Peripheral and visceral atherosclerosis (20 sources) Peripheral vascular disease; Translations: [Peripheral vascular disease, unspecified] Onset: 01-20-2022 01-19-2022 Chronic Pulmonary heart disease (6 sources) Pulmonary hypertension; Translations: [Pulmonary hypertension, unspecified] Onset: 01-17-2023 01-17-2023 Chronic Retinal detachments; defects; vascular occlusion; and retinopathy (12 sources) Epiretinal membrane of right eye; Translations: [Puckering of macula, right eye] Onset: 01-17-2023 01-17-2023 Chronic Spondylosis; intervertebral disc disorders; other back problems (4 sources) Acute back pain with sciatica; Translations: [Lumbago with sciatica, right side] 05-14-2024 Episodic Syncope (12 sources) Near syncope; Translations: [Syncope and collapse] Onset: 02-02-2022 11-11-2019 Episodic Thyroid disorders (19 sources) Hypothyroidism; Translations: [Hypothyroidism, unspecified] Onset: 03-05-2023 01-18-2022 Chronic Unclassified (1 source) CONTACT W/AND (SUSP) EXPOS COVID-19; Translations: [CONTACT W/AND (SUSP) EXPOS COVID-19] Onset: 02-02-2022 Past or Other Problems Problem Classification Problem Date Documented Da te Episodic/Chronic Blindness and vision defects (6 sources) Presbyopia; Translations: [Presbyopia] Onset: 01-17-2023 01-17-2023 Episodic Coronary atherosclerosis and other heart disease (19 sources) Patient post percutaneous transluminal coronary angioplasty; Translations: [Percutaneous transluminal coronary angioplasty status] Onset: 01-17-2023 01-17-2023 Episodic Diabetes mellitus without complication (20 sources) Prediabetes; Translations: [Prediabetes] Onset: 08-16-2022 01-18-2022 Episodic Heart valve disorders (6 sources) Heart murmur; Translations: [Cardiac murmur, unspecified] Onset: 01-17-2023 01-17-2023 Episodic Mood disorders (7 sources) Mood disorders Onset: 02-15-2022 Resolved: 08-30-2023 07-25-2022 Noninfectious gastroenteritis (1 source) Noninfective gastroenteritis and colitis, unspecified; Translations: [NONINFECTIVE GE AND COLITIS UNS] Onset: 02-02-2022 Episodic Nonspecific chest pain (3 sources) Chest pain, unspecified; Translations: [CHEST PAIN UNSPECIFIED] Onset: 01-18-2022 Episodic Other aftercare (1 source) Other termite treater helper (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; Translations: [OTH HALFWAY CURRENT DRUG THERAPY] Onset: 02-02-2022 Episodic Other aftercare (1 source) equipment operator intermodal yard (current) use of oral hypoglycemic drugs; Translations: [STEEL CUTTER USE ORAL HYPOGLYCEMIC DX] Onset: 02-02-2022 Episodic Other aftercare (1 source) intermediate (current) use of aspirin; Translations: [HALFWAY CURRENT USE OF ASPIRIN] Onset: 01-20-2022 Episodic Other aftercare (6 sources) Polypharmacy ; Translations: [Other termite treater helper (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] Onset: 08-07-2020 01-19-2023 Episodic Other bone disease and musculoskeletal deformities (6 sources) Osteopenia; Translations: [Other specified disorders of bone density and structure, unspecified site] Onset: 01-17-2023 01-17-2023 Episodic Other circulatory disease (1 source) Hypotension, unspecified; Translations: [HYPOTENSION UNSPECIFIED] Onset: 02-02-2022 Episodic Other circulatory disease (8 sources) Orthostatic hypotension; Translations: [Orthostatic hypotension] Onset: 01-10-2024 03-07-2023 Episodic Other circulatory disease (6 sources) H/O: cardiovascular disease; Translations: [Personal history of other diseases of the circulatory system] Onset: 04-25-2016 01-19-2023 Episodic Other connective tissue disease (6 sources) Abnormal posture; Translations: [Abnormal posture] Onset: 01-17-2023 Resolved: 08-07-2023 01-17-2023 Episodic Other connective tissue disease (6 sources) Left rotator cuff syndrome; Translations: [Unspecified rotator cuff tear or rupture of left shoulder, not specified as traumatic] Onset: 01-17-2023 01-17-2023 Episodic Other ear and sense organ disorders (5 sources) Disorder of left external ear; Translations: [Unspecified otitis externa, left ear] Onset: 01-17-2023 Resolved: 08-07-2023 08-07-2023 Chronic Other eye disorders (6 sources) Disorder of lacrimal system; Translations: [Disorder of lacrimal system, unspecified] Onset: 01-17-2023 01-17-2023 Episodic Other gastrointestinal disorders (3 sources) Diarrhea, unspecified; Translations: [DIARRHEA UNSPECIFIED] Onset: 01-27-2022 Episodic Other hematologic conditions (1 source) Other specified abnormalities of plasma proteins; Translations: [OTH SPEC ABNORM PLASMA PROTEINS] Onset: 02-02-2022 Episodic Other lower respiratory disease (9 sources) Dyspnea; Translations: [Other respiratory abnormalities] Onset: 03-17-2023 03-17-2023 Episodic Other lower respiratory disease (1 source) Shortness of breath; Translations: [SHORTNESS OF BREATH] Onset: 02-02-2022 Episodic Other lower respiratory disease (2 sources) Other forms of dyspnea; Translations: [Other forms of dyspnea] Onset: 03-17-2023 Episodic Other non-epithelial cancer of skin (6 sources) Basal cell carcinoma of ear; 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] Onset: 01-17-2023 01-17-2023 Episodic Other nutritional; endocrine; and metabolic disorders (6 sources) Morbid obesity; Translations: [Morbid (severe) obesity due to excess calories] Onset: 04-25-2016 Resolved: 05-02-2023 05-02-2023 Chronic Other nutritional; endocrine; and metabolic disorders (2 sources) Body mass index (BMI) 27.0-27.9, adult; Translations: [Body mass index (BMI) 27.0-27.9, adult] Onset: 08-31-2023 Episodic Other skin disorders (6 sources) Keloid scar; Translations: [Hypertrophic scar] Onset: 01-17-2023 Resolved: 08-07-2023 01-17-2023 Episodic Residual codes; unclassified (1 source) Other specified postprocedural states; Translations: [OTH SPECIFIED POSTPROCEDURAL STATES] Onset: 02-02-2022 Episodic Screening and history of mental health and substance abuse codes (20 sources) Ex-smoker; Translations: [Personal history of tobacco use] Onset: 03-25-2016 01-19-2023 Episodic Comment on above: nicotine lozenges; Thyroid disorders (11 sources) Sick-euthyroid syndrome; Translations: [Sick-euthyroid syndrome] Onset: 04-15-2022 Resolved: 05-08-2023 Episodic Unclassified (2 sources) Onset: 08-31-2023 Resolved: 05-08-2024 08-31-2023 Viral infection (1 source) Zoster without complications Onset: 01-01-2022 Resolved: 01-01-2022 Episodic Results Test Name Value Interpretation Reference Range Facility ALL LIPID PROFILE (FASTING)o n 05-17-2024 CHOL HDL RATIO 1.8 [facility] Comment on above: 3.3 - 4.4 LOW RISK 4.4 - 7.1 AVERAGE RISK 7.1 - 11.0 MODERATE RISK >11.0 [facility] Cholesterol [Mass/Vol] 144 mg/dL NINF - 200 mg/dL [facility] Cholesterol in HDL [Mass/Vol] 80 mg/dL High 40 - 60 mg/dL [facility] Comment on above: > or =60 mg/dl - LOW CARDIOVASCULAR RISK <40 mg/dl - HIGH CARDIOVASCULAR RISK Magnesium [Mass/Vol] 52 mg/dL [facility] Comment on above: <100 mg/dl OPTIMAL 100-129 mg/dl NEAR OR ABOVE OPTIMAL 130-159 mg/dl BORDERLINE HIGH 160-189 mg/dl HIGH >190 mg/dl VERY HIGH Magnesium [Mass/Vol] 12.2 mg/dL [facility] Triglyceride [Mass/Vol] 61 mg/dL NINF - 150 mg/dL [facility] CMP (CMP) (FOR REMOTE FH C USE)on 05-17-2024 Albumin [Mass/Vol] 4 g/dL 3.4 - 5.0 g/dL [facility] ALBUMIN GLOBULIN RATIO 1.3 NO [facility] ALP [Catalytic activity/Vol] 48 U/L 46 - 116 U/L [facility] ALT [Catalytic activity/Vol] 24 U/L 14 - 59 U/L [facility] Anion gap [Moles/Vol] 13.4 mmol/L NO [facility] AST [Catalytic activity/Vol] 13 U/L Low 15 - 37 U/L [facility] Bilirubin [Mass/Vol] 0.6 mg/dL 0.2 - 1 .0 mg/dL [facility] Calcium [Mass/Vol] 9.1 mg/dL 8.5 - 10. 1 mg/dL [facility] Chloride [Moles/Vol] 97 mmol/L Low 98 - 10 7 mmol/L [facility] CO2 [Moles/Vol] 28.9 mmol/L 21.0 - 32.0 mmol/L [facility] Creatinine [Mass/Vol] 1.12 mg/dL High 0.55 - 1.02 mg/dL [facility] GFR/1.73 sq M.predicted CKD-EPI (S/P/Bld) [Vol rate/Area] 56 Low >=60 mL/min/1.7 3m 2 [facility] Globulin (S) [Mass/Vol] 3.2 g/dL [facility] Glucose [Mass/Vol] 102 mg/dL 74 - 106 mg/dL [facility] Potassium [Moles/Vol] 4.3 mmol/L 3.5 - 5.1 mmol/L [facility] Protein [Mass/Vol] 7.2 g/dL 6.4 - 8.2 g/dL [facility] Sodium [Moles/Vol] 135 mmol/L Low 136 - 145 mmol/L [facility] TBH EGFR-NON AF CZECH 47 Low >=60 mL/min/1.7 3m 2 [facility] Urea nitrogen [Mass/Vol] 22 mg/dL High 7.0 - 18.0 mg/dL [facility] Urea nitrogen/Creatinine [Mass ratio] 19.6 mg/mg [facility] No Panel Informationon 05-17 Interpretation and review of laboratory results Abnormal [facility]IS[facility]NC [facility] MLR HEMOGLOBIN A1Con 024 Glucose [Mass/Vol] 111 mg/dL [facility] HbA1c (Bld) [Mass fraction] 5.5 % 4.5 - 6.2 % [facility] Comment on above: ADA RECOMMENDED LIMI T 4.0 - 6.0 ADA THERAPEUTIC TARGET < 7.0 ACTION SUGGESTED > 7.0 [facility] Basic Metabolic Panelon 10-0 Anion gap [Moles/Vol] 9.8 mmol/L Normal 6.0-15.0 [facility] Comment on above: Performed By: #### B [employer]IG[employer] MACH[employer] MECHANIC, BMP, PT, PTT, HS TROP, CBC, TSH3, CK #### [facility] [address] [place] [address] [place] Calcium [Mass/Vol] 8.3 mg/dL Low 8.6-10.3 [facility] Comment on above: Performed By: #### B [employer]ACH[employer] MECHANIC, BMP, PT, PTT, HS TROP, CBC, TSH3, CK #### [facility] [address] [place] [id number] [place] Chloride [Moles/Vol] 101 mmol/L Normal 98-107 [facility] Comment on above: Performed By: #### B [employer] MECHANIC, BMP, PT, PTT, HS TROP, CBC, TSH3, CK #### [facility] [address] CO2 [Moles/Vol] 23.6 mmol/L Normal 21.0-31.0 [facility] Comment on above: Performed By: #### B [employer]IG[employer] MACH[employer] MECHANIC, BMP, PT, PTT, HS TROP, CBC, TSH3, CK #### [facility] [address] Creatinine [Mass/Vol] 0.70 mg/dL Normal 0.60-1.20 [facility] Comment on above: Performed By: #### B [employer] MECHANIC, BMP, PT, PTT, HS TROP, CBC, TSH3, CK #### [address] Creatinine Clr Calc Pharmacy 48.88 [facility] Comment on above: Performed By: #### B [employer] MECHANIC, BMP, PT, PTT, HS TROP, CBC, TSH3, CK #### [address] GFR/1.73 sq M.predicted MDRD (S/P/Bld) [Vol rate/Area] mL/min/{1.73_m2} [facility] Comment on above: Performed By: #### B [employer]IG[employer] MACH[employer] MECHANIC, BMP, PT, PTT, HS TROP, CBC, TSH3, CK #### [address] Glucose [Mass/Vol] 84 mg/dL Normal 70-100 [facility] Comment on above: Result Comment: [facility] Glucose Reference Range is dependent on time and content of last meal. Glucose of more than 200 mg/dL in a nonstressed, ambulatory subject supports the diagnosis of Diabetes Mellitus. ADA recommended reference range Performed By: #### B [employer]IG[employer] MACH[employer] MECHANIC, BMP, PT, PTT, HS TROP, CBC, TSH3, CK #### [address] Potassium [Moles/Vol] 4.4 mmol/L Normal 3.5-5.1 [facility] Comment on above: Performed By: #### B [employer]IG[employer] M[employer] MECHANIC, BMP, PT, PTT, HS TROP, CBC, TSH3, CK #### [facility] [address] [place] [address] [place] Sodium [Moles/Vol] 130 mmol/L Low 136-145 [facility] Comment on above: Performed By: #### B [employer]IG[employer] M[employer] MECHANIC, BMP, PT, PTT, HS TROP, CBC, TSH3, CK #### [facility] [address] [place] [address] [place] Urea nitrogen [Mass/Vol] 8 mg/dL Normal 7-25 [facility] Comment on above: Performed By: #### B [employer]IG[employer] M[employer] MECHANIC, BMP, PT, PTT, HS TROP, CBC, TSH3, CK #### [facility] [address] Calcium [Mass/volume] in Ser um or PlasmaOrdered By: Rufus Ricks on 03-14-2023 Calcium [Mass/Vol] 8.3 mg/dL 8.6-10.3 [facility] Carbon dioxide, total [Moles /volume] in Serum or PlasmaOrdered By: Rufus Ricks on 03-14-2023 CO2 [Moles/Vol] 23.6 mmol/L 21.0-31.0 [facility] Chloride [Moles/volume] in S yamilex or PlasmaOrdered By: Rufus Ricks on 03-14-2023 Chloride [Moles/Vol] 101 mmol/L 98-107 [facility] Creatinine [Mass/volume] in Serum or PlasmaOrdered By: Rufus Ricks on 03-14-2023 Creatinine [Mass/Vol] 0.70 mg/dL 0.60-1.20 [facility] Free T4 (Free Thyroxine)on Free T4 [Mass/Vol] 0.72 ng/dL Normal 0.61-1.12 [facility] Comment on above: Performed By: #### B [employer]IG[employer] MACH[employer] MECHANIC, BMP, PT, PTT, HS TROP, CBC, TSH3, CK #### [facility] [address] Glucose [Mass/volume] in Ser um or PlasmaOrdered By: Rufus Ricks on 03-14-2023 Glucose [Mass/Vol] 84 mg/dL 70-100 [facility] Comment on above: ADA recommended refe rence rangeRandom Glucose Reference Range is dependent on time and content of last meal. Glucose of more than 200 mg/dL in a nonstressed, ambulatory subject supports the diagnosis of Diabetes Mellitus. No Panel InformationOrdered By: [facility] on 03-14-2023 Estimated GFR (CKD-EPI) > 60.0 mL/Min [facility] Creatinine Clearance (Chem 48.88 [facility] Potassium [Moles/volume] in Serum or PlasmaOrdered By: [facility] on 03-14-2023 Potassium [Moles/Vol] 4.4 mmol/L 3.5-5.1 [facility] Serum or plasma anion gap de terminationOrdered By: [facility] on 03-14-2023 Anion gap [Moles/Vol] 9.8 mmol/L 6.0-15.0 [facility] Sodium [Moles/volume] in Ser um or PlasmaOrdered By: [facility] on 03-14-2023 Sodium [Moles/Vol] 130 mmol/L 136-145 [facility] Thyroid Stimulating Hormoneo n 03-14-2023 TSH Qn 0.04 m[IU]/L Low 0.45-5.33 [facility] Comment on above: Result Comment: PERF ORMED BY: [place] [address] PATHOLOGIST CRAFT RECRUITER RAQUEL LOPEZ M.D. Performed By: #### B CIGARETTE MACH[employer] MECHANIC, BMP, PT, PTT, HS TROP, CBC, TSH3, CK #### [facility] [address] Thyrotropin [Units/volume] i n Serum or PlasmaOrdered By: Rufus [place] on 03-14-2023 TSH Qn 0.04 m[IU]/L 0.45-5.33 [facility] Thyroxine (T4) free [Mass/vo lume] in Serum or PlasmaOrdered By: Rufus [place] on 03-14-2023 Free T4 [Mass/Vol] 0.72 ng/dL 0.61-1.12 [facility] Triiodothyronine (T3) Freeon 03-14-2023 Triiodothyronine (T3) Free 2.85 pg/mL Normal 2.50-3.90 [facility] Comment on above: Result Comment: PERF ORMED BY: [place] [address] PATHOLOGIST CRAFT RECRUITER RAQUEL LOPEZ M.D. Performed By: #### B CIGAR[employer] MACH[employer] MECHANIC, BMP, PT, PTT, HS TROP, CBC, TSH3, CK #### [facility] [address] Triiodothyronine (T3) Free [ Mass/volume] in Serum or PlasmaOrdered By: Rufus Ricks on 03-14-2023 Free T3 [Mass/Vol] 2.85 pg/mL 2.50-3.90 [facility] Urea nitrogen [Mass/volume] in Serum or PlasmaOrdered By: Rufus Ricks on 03-14-2023 Urea nitrogen [Mass/Vol] 8 mg/dL 01-03 [facility] Basic Metabolic Panelon 100 Anion gap [Moles/Vol] 13.4 mmol/L Normal 6.0-15.0 [facility] Comment on above: Performed By: #### B CIGAR[employer] MACH[employer] MECHANIC, BMP, PT, PTT, HS TROP, CBC, TSH3, CK #### [place] [address] [place] Calcium [Mass/Vol] 9.1 mg/dL Normal 8.6-10.3 [facility] Comment on above: Performed By: #### B CIGAR[employer] MACHIN[employer] MECHANIC, BMP, PT, PTT, HS TROP, CBC, TSH3, CK #### [facility] [address] [place] [address] [place] Chloride [Moles/Vol] 93 mmol/L Low 98-107 [facility] Comment on above: Performed By: #### B CIG[employer] MACH[employer] MECHANIC, BMP, PT, PTT, HS TROP, CBC, TSH3, CK #### [facility] [address] [place] [address] [place] CO2 [Moles/Vol] 25.0 mmol/L Normal 21.0-31.0 [facility] Comment on above: Performed By: #### B CIGARET[employer] MACH[employer] MECHANIC, BMP, PT, PTT, HS TROP, CBC, TSH3, CK #### [facility] [address] Creatinine [Mass/Vol] 0.88 mg/dL Normal 0.60-1.20 [facility] Comment on above: Performed By: #### B CIGARETTE MACHIN[employer] MECHANIC, BMP, PT, PTT, HS TROP, CBC, TSH3, CK #### [address] Creatinine Clr Calc Pharmacy 44.44 [facility] Comment on above: Result Comment: PERF ORMED BY: [place] [address] PATHOLOGIST CRAFT RECRUITER RAQUEL LOPEZ M.D. Performed By: #### B CIGAR[employer] MACH[employer] MECHANIC, BMP, PT, PTT, HS TROP, CBC, TSH3, CK #### [address] GFR/1.73 sq M.predicted MDRD (S/P/Bld) [Vol rate/Area] mL/min/{1.73_m2} [facility] Comment on above: Performed By: #### B CIGARET[employer] MACHIN[employer] MECHANIC, BMP, PT, PTT, HS TROP, CBC, TSH3, CK #### [address] Glucose [Mass/Vol] 97 mg/dL Normal 70-100 [facility] Comment on above: Result Comment: [facility] Glucose Reference Range is dependent on time and content of last meal. Glucose of more than 200 mg/dL in a nonstressed, ambulatory subject supports the diagnosis of Diabetes Mellitus. ADA recommended reference range Performed By: #### B CIG[employer] MACH[employer] MECHANIC, BMP, PT, PTT, HS TROP, CBC, TSH3, CK #### [address] Potassium [Moles/Vol] 4.4 mmol/L Normal 3.5-5.1 [facility] Comment on above: Performed By: #### B CIGARETTE MACHIN[employer] MECHANIC, BMP, PT, PTT, HS TROP, CBC, TSH3, CK #### [facility] [address] Sodium [Moles/Vol] 127 mmol/L Low 136-145 [facility] Comment on above: Performed By: #### B CIGARETTE MACHINES MECHANIC, BMP, PT, PTT, HS TROP, CBC, TSH3, CK #### [facility] [address] Urea nitrogen [Mass/Vol] 9 mg/dL Normal 7-25 [facility] Comment on above: Performed By: #### B CIGARETTE MACHIN[employer] MECHANIC, BMP, PT, PTT, HS TROP, CBC, TSH3, CK #### [facility] [address] Activated partial thrombopla stin time (aPTT) in platelet poor plasma by coagulation aOrdered By: Hunter Dhillon on 03-12-2023 aPTT Coag (PPP) [Time] 26.1 s 25.1-36.5 [facility] Comment on above: A hematocrit value g reater than 55% may lead to inaccurate results in coagulation testing. Patients having hematocrit values >55% require a special collection tube for coagulation studies. Please contact the laboratory at [phone] for redraw instructions. Alanine aminotransferase [En zymatic activity/volume] in Serum or PlasmaOrdered By: Hunter Dhillon on 03-12-2023 ALT [Catalytic activity/Vol] 14 U/L 7-52 [facility] Albumin [Mass/volume] in Ser um or Plasma by Bromocresol green (BCG) dye binding methoOrdered By: Hunter Dhillon on 03-12-2023 Albumin BCG dye [Mass/Vol] 4.1 g/dL 3.5-5.7 [facility] Alkaline phosphatase [Enzyma tic activity/volume] in Serum or PlasmaOrdered By: Hunter Dhillon on 03-12-2023 ALP [Catalytic activity/Vol] 40 U/L 34-104 [facility] Aspartate aminotransferase [ Enzymatic activity/volume] in Serum or PlasmaOrdered By: Hunter Dhillon on 03-12-2023 AST [Catalytic activity/Vol] 15 U/L 13-39 [facility] Automated erythrocytes count in urine sediment (number/area)Ordered By: Hunter Dhillon on 03-12-2023 RBC Auto (Urine sed) [#/Area] None seen [HPF] 0-4 [facility] Automated leukocytes count i n urine sediment (number/area)Ordered By: Hunter Dhillon on 03-12-2023 WBC Auto (Urine sed) [#/Area] 5-9 [HPF] 0-4 [facility] B-Type Natriuretic Peptideon 03-12-2023 Natriuretic peptide B (Bld) [Mass/Vol] 83.0 pg/mL Normal 5-100 [facility] Comment on above: Result Comment: PERF ORMED BY: [place] [address] PATHOLOGIST CRAFT RECRUITER RAQUEL LOPEZ M.D. Performed By: #### B CIGARETTE MACHIN[employer] MECHANIC, BMP, PT, PTT, HS TROP, CBC, TSH3, CK #### [address] Basic Metabolic Panelon Anion gap [Moles/Vol] 13.3 mmol/L Normal 6.0-15.0 [facility] Comment on above: Performed By: #### B CIGARETTE MACHIN[employer] MECHANIC, BMP, PT, PTT, HS TROP, CBC, TSH3, CK #### [facility] [address] [place] [address] Calcium [Mass/Vol] 9.2 mg/dL Normal 8.6-10.3 [facility] Comment on above: Performed By: #### B CIGARETTE MACHINES MECHANIC, BMP, PT, PTT, HS TROP, CBC, TSH3, CK #### [facility] [address] [place] [address] [place] Chloride [Moles/Vol] 98 mmol/L Normal 98-107 [facility] Comment on above: Performed By: #### B CIGARETTE MACHINES MECHANIC, BMP, PT, PTT, HS TROP, CBC, TSH3, CK #### [address] CO2 [Moles/Vol] 21.2 mmol/L Normal 21.0-31.0 [facility] Comment on above: Performed By: #### B CIGARETTE MACHINES MECHANIC, BMP, PT, PTT, HS TROP, CBC, TSH3, CK #### [facility] [address] Creatinine [Mass/Vol] 0.92 mg/dL Normal 0.60-1.20 [facility] Comment on above: Performed By: #### B CIGARETTE MACHINES MECHANIC, BMP, PT, PTT, HS TROP, CBC, TSH3, CK #### [facility] [address] [place] [address] [place] Creatinine Clr Calc Pharmacy 41.99 [facility] Comment on above: Performed By: #### B CIGARETTE MACHINES MECHANIC, BMP, PT, PTT, HS TROP, CBC, TSH3, CK #### [place] [address] [place] GFR/1.73 sq M.predicted MDRD (S/P/Bld) [Vol rate/Area] mL/min/{1.73_m2} [facility] Comment on above: Performed By: #### B CIGARETTE MACHINES MECHANIC, BMP, PT, PTT, HS TROP, CBC, TSH3, CK #### [facility] [address] Glucose [Mass/Vol] 87 mg/dL Normal 70-100 [facility] Comment on above: Result Comment: [facility] Glucose Reference Range is dependent on time and content of last meal. Glucose of more than 200 mg/dL in a nonstressed, ambulatory subject supports the diagnosis of Diabetes Mellitus. ADA recommended reference range Performed By: #### B CIGARETTE MACHINES MECHANIC, BMP, PT, PTT, HS TROP, CBC, TSH3, CK #### [address] Potassium [Moles/Vol] 4.5 mmol/L Normal 3.5-5.1 [facility] Comment on above: Performed By: #### B CIGARETTE MACHINES MECHANIC, BMP, PT, PTT, HS TROP, CBC, TSH3, CK #### [facility] [address] Sodium [Moles/Vol] 128 mmol/L Low 136-145 [facility] Comment on above: Performed By: #### B CIGARETTE MACHINES MECHANIC, BMP, PT, PTT, HS TROP, CBC, TSH3, CK #### [facility] [address] [place] [address] [place] Urea nitrogen [Mass/Vol] 11 mg/dL Normal 7-25 [facility] Comment on above: Performed By: #### B CIGARETTE MACHINES MECHANIC, BMP, PT, PTT, HS TROP, CBC, TSH3, CK #### [facility] [address] [place] [id number] [place] Basophils Auto (Bld) [#/Vol] Ordered By: Hunter Dhillon on 03-12-2023 Basophils (Bld) [#/Vol] 0.0 10*3/uL 0.0-0.2 [facility] Basophils/100 WBC Auto (Bld) Ordered By: Hunter Dhillon on 03-12-2023 Basophils/100 WBC (Bld) 0.4 % . [facility] Bilirubin Auto test strip Ql (U)Ordered By: Hunter Dhillon on 03-12-2023 Bilirubin Ql (U) Negative Negative [facility] Bilirubin.direct [Mass/volum e] in Serum or PlasmaOrdered By: Hunter Dhillon on 03-12-2023 Bilirubin.direct [Mass/Vol] 0.10 mg/dL 0.03-0.18 [facility] Bilirubin.total [Mass/volume ] in Serum or PlasmaOrdered By: Hunter Dhillon on 03-12-2023 Bilirubin [Mass/Vol] 0.4 mg/dL 0.3-1.0 [facility] Calcium [Mass/volume] in Ser um or PlasmaOrdered By: Hunter Dhillon on 03-12-2023 Calcium [Mass/Vol] 9.2 mg/dL 8.6-10.3 [facility] Carbon dioxide, total [Moles /volume] in Serum or PlasmaOrdered By: Hunter Dhillon on 03-12-2023 CO2 [Moles/Vol] 21.2 mmol/L 21.0-31.0 [facility] Chloride [Moles/volume] in S yamilex or PlasmaOrdered By: Hunter Dhillon on 03-12-2023 Chloride [Moles/Vol] 98 mmol/L 98-107 [facility] Complete Blood Count Auto Di ffon 03-12-2023 Basophils (Bld) [#/Vol] 0.0 10*3/uL Normal 0.0-0.2 [facility] Comment on above: Result Comment: PERF ORMED BY: [place] [address] PATHOLOGIST CRAFT RECRUITER RAQUEL LOPEZ M.D. Performed By: #### B CIGARETTE MACHINES MECHANIC, BMP, PT, PTT, HS TROP, CBC, TSH3, CK #### [address] Basophils/100 WBC (Bld) 0.4 % Normal . [facility] Comment on above: Performed By: #### B CIGARETTE MACHINES MECHANIC, BMP, PT, PTT, HS TROP, CBC, TSH3, CK #### [address] Eosinophils (Bld) [#/Vol] 0.2 10*3/uL Normal 0.0-0.45 [facility] Comment on above: Performed By: #### B CIGARETTE MACHINES MECHANIC, BMP, PT, PTT, HS TROP, CBC, TSH3, CK #### [address] Eosinophils/100 WBC (Bld) 2.0 % Normal . [facility] Comment on above: Performed By: #### B CIGARETTE MACHINES MECHANIC, BMP, PT, PTT, HS TROP, CBC, TSH3, CK #### [address] Erythrocyte distribution width (RBC) [Ratio] 12.6 % Normal 11.9-15.3 [facility] Comment on above: Performed By: #### B CIGARETTE MACHINES MECHANIC, BMP, PT, PTT, HS TROP, CBC, TSH3, CK #### [address] Hematocrit (Bld) [Volume fraction] 35.5 % Normal 34.0-46.4 [facility] Comment on above: Performed By: #### B CIGARETTE MACHINES MECHANIC, BMP, PT, PTT, HS TROP, CBC, TSH3, CK #### [address] Hemoglobin (Bld) [Mass/Vol] 12.4 g/dL Normal 11.8-15.4 [facility] Comment on above: Performed By: #### B CIGARETTE MACHINES MECHANIC, BMP, PT, PTT, HS TROP, CBC, TSH3, CK #### [address] Lymphocytes (Bld) [#/Vol] 1.2 10*3/uL Normal 1.00-4.8 [facility] Comment on above: Performed By: #### B CIGARETTE MACHINES MECHANIC, BMP, PT, PTT, HS TROP, CBC, TSH3, CK #### [address] Lymphocytes/100 WBC (Bld) 13.2 % Normal . [facility] Comment on above: Performed By: #### B CIGARETTE MACHINES MECHANIC, BMP, PT, PTT, HS TROP, CBC, TSH3, CK #### [address] MCH (RBC) [Entitic mass] 31.9 pg Normal 24.7-34.3 [facility] Comment on above: Performed By: #### B CIGARETTE MACHINES MECHANIC, BMP, PT, PTT, HS TROP, CBC, TSH3, CK #### [address] MCV (RBC) [Entitic vol] 91.8 fL Normal 80-100 [facility] Comment on above: Performed By: #### B CIGARETTE MACHINES MECHANIC, BMP, PT, PTT, HS TROP, CBC, TSH3, CK #### [address] Mean Corpuscular HGB Conc 34.7 g/dL Normal 32.0-35.0 [facility] Comment on above: Performed By: #### B CIGARETTE MACHINES MECHANIC, BMP, PT, PTT, HS TROP, CBC, TSH3, CK #### [address] Monocytes (Bld) [#/Vol] 0.5 10*3/uL Normal 0.0-0.8 [facility] Comment on above: Performed By: #### B CIGARETTE MACHINES MECHANIC, BMP, PT, PTT, HS TROP, CBC, TSH3, CK #### [facility] [address] [place] [address] [place] Monocytes/100 WBC (Bld) 17.50 % Normal 0.00-20.00 [facility] Comment on above: Performed By: #### B CIGARETTE MACHINES MECHANIC, BMP, PT, PTT, HS TROP, CBC, TSH3, CK #### [facility] [address] Monocytes/100 WBC (Bld) 5.1 % Normal . [facility] Comment on above: Performed By: #### B CIGARETTE MACHINES MECHANIC, BMP, PT, PTT, HS TROP, CBC, TSH3, CK #### [address] Neutrophils (Bld) [#/Vol] 7.0 10*3/uL Normal 1.8-7.7 [facility] Comment on above: Performed By: #### B CIGARETTE MACHINES MECHANIC, BMP, PT, PTT, HS TROP, CBC, TSH3, CK #### [address] Neutrophils/100 WBC (Bld) 79.3 % Normal . [facility] Comment on above: Performed By: #### B CIGARETTE MACHINES MECHANIC, BMP, PT, PTT, HS TROP, CBC, TSH3, CK #### [address] NRBC% 0.0 /100{WBC} Normal 0-0.5 [facility] Comment on above: Performed By: #### B CIGARETTE MACHINES MECHANIC, BMP, PT, PTT, HS TROP, CBC, TSH3, CK #### [address] Platelet mean volume (Bld) [Entitic vol] 7.2 fL Normal 6.3-10.7 [facility] Comment on above: Performed By: #### B CIG[employer]ETTE MACH[employer] MECHANIC, BMP, PT, PTT, HS TROP, CBC, TSH3, CK #### [place] [address] [place] Platelets (Bld) [#/Vol] 237 10*3/uL Normal 150-450 [facility] Comment on above: Performed By: #### B CIGARETTE MACHIN[employer] MECHANIC, BMP, PT, PTT, HS TROP, CBC, TSH3, CK #### [facility] [address] RBC (Bld) [#/Vol] 3.87 10*6/uL Normal 3.60-5.00 [facility] Comment on above: Performed By: #### B CIGARETTE MACHIN[employer] MECHANIC, BMP, PT, PTT, HS TROP, CBC, TSH3, CK #### [facility] [address] WBC (Bld) [#/Vol] 8.9 10*3/uL Normal 3.8-11.6 [facility] Comment on above: Performed By: #### B CIGARETTE MACHIN[employer] MECHANIC, BMP, PT, PTT, HS TROP, CBC, TSH3, CK #### [facility] [address] Creatine Kinaseon 03-12-2023 CK [Catalytic activity/Vol] 20 U/L Low [facility] Comment on above: Performed By: #### B CIGARETTE MACHIN[employer] MECHANIC, BMP, PT, PTT, HS TROP, CBC, TSH3, CK #### [address] Creatine kinase [Enzymatic a ctivity/volume] in Serum or PlasmaOrdered By: Hunter Dhillon on 03-12-2023 CK [Catalytic activity/Vol] 20 U/L [facility] Creatinine [Mass/volume] in Serum or PlasmaOrdered By: Hunter Dhillon on 03-12-2023 Creatinine [Mass/Vol] 0.92 mg/dL 0.60-1.20 [facility] Dipstick and Microscopicon 1 Appearance (U) Slightly Cloudy Critically abnormal Clear [facility] Comment on above: Order Comment: Name Collection Type:: Clean-Voided Midstream Performed By: #### A DDONUAPLUS #### [address] Bacteria,Urine 1+ High None Seen [facility] Comment on above: Order Comment: Name Collection Type:: Clean-Voided Midstream Result Comment: PERF ORMED BY: [place] [address] PATHOLOGIST CRAFT RECRUITER RAQUEL LOPEZ M.D. Performed By: #### A DDONUAPLUS #### [facility] [address] [place] [address] [place] Bilirubin,Urine Negative Normal Negative [facility] Comment on above: Order Comment: Name Collection Type:: Clean-Voided Midstream Performed By: #### A DDONUAPLUS #### [facility] [address] [place] [address] [place] Color (U) Yellow Normal Yellow [facility] Comment on above: Order Comment: Name Collection Type:: Clean-Voided Midstream Performed By: #### A DDONUAPLUS #### [place] [address] [place] Glucose Ql (U) Normal Normal Normal [facility] Comment on above: Order Comment: Name Collection Type:: Clean-Voided Midstream Performed By: #### A DDONUAPLUS #### [facility] [address] [place] [address] [place] Ketones Ql (U) Negative Normal Negative [facility] Comment on above: Order Comment: Name Collection Type:: Clean-Voided Midstream Performed By: #### A DDONUAPLUS #### [place] [address] [place] Leukocyte esterase Test strip Ql (U) 3+ High Negative [facility] Comment on above: Order Comment: Name Collection Type:: Clean-Voided Midstream Performed By: #### A DDONUAPLUS #### [facility] [address] [place] [address] [place] Nitrite,Urine Negative Normal Negative [facility] Comment on above: Order Comment: Name Collection Type:: Clean-Voided Midstream Performed By: #### A DDONUAPLUS #### [facility] [address] [place] [address] [place] Occult Blood,Urine Negative Normal Negative [facility] Comment on above: Order Comment: Name Collection Type:: Clean-Voided Midstream Result Comment: PERF ORMED BY: [place] [address] PATHOLOGIST CRAFT RECRUITER RAQUEL LOPEZ M.D. Performed By: #### A DDONUAPLUS #### [facility] [address] [place] [address] pH (U) 7.5 [pH] Normal 5.0-9.0 [facility] Comment on above: Order Comment: Name Collection Type:: Clean-Voided Midstream Performed By: #### A DDONUAPLUS #### [facility] [address] [place] [address] Protein,Urine Negative Normal Negative [facility] Comment on above: Order Comment: Name Collection Type:: Clean-Voided Midstream Performed By: #### A DDONUAPLUS #### [facility] [address] [place] [address] RBC,Urine None Seen Normal 0-4 [facility] Comment on above: Order Comment: Name Collection Type:: Clean-Voided Midstream Performed By: #### A DDONUAPLUS #### [facility] [address] [place] [address] Specificy [place],Urine 1.010 Normal 1.001-1.03 0 [facility] Comment on above: Order Comment: Name Collection Type:: Clean-Voided Midstream Performed By: #### A DDONUAPLUS #### [facility] [address] [place] [address] [place] Squamous Epithelial Cell,Urine 5-9 High 0-2 [facility] Comment on above: Order Comment: Name Collection Type:: Clean-Voided Midstream Performed By: #### A DDONUAPLUS #### [facility] [address] [place] [address] [place] Urobilinogen,Urine Normal Normal Normal [facility] Comment on above: Order Comment: Name Collection Type:: Clean-Voided Midstream Performed By: #### A DDONUAPLUS #### [facility] [address] [place] [address] [place] WBC,Urine 5-9 High 0-4 [facility] Comment on above: Order Comment: Name Collection Type:: Clean-Voided Midstream Performed By: #### A DDONUAPLUS #### [facility] [address] ECG 12 lead ECGon 03-12-2023 ECG 12 lead ECG [facility] [address] [place] [address] [place] [address] Electrocardiograph Report Signed Patient: Steven Harding MR#: [id number] 1 : 1940 Acct:[id number] Age/Sex: 83 / F ADM Date: 03/12/23 Loc: Room: [address] [place] [address] Type: ADM INOo Attending Dr: Sima Hdz [...] longer present Confirmed by Zane Michael DO ([id number]) on 03/13/2023 8:21:27 AM Referred By: Electronically Signed By:Zane Michael DO Transcribed By: MUS Signed By Zane Michael DO 3 0821 Normal [facility] Eosinophils Auto (Bld) [#/Vo l]Ordered By: Hunter Dhillon on 03-12-2023 Eosinophils (Bld) [#/Vol] 0.2 10*3/uL 0.0-0.45 [facility] Eosinophils/100 WBC Auto (Bl d)Ordered By: Hunter Dhillon on 03-12-2023 Eosinophils/100 WBC (Bld) 2.0 % . [facility] Erythrocyte distribution wid th Auto (RBC) [Ratio]Ordered By: Hunter Dhillon on 03-12-2023 Erythrocyte distribution width (RBC) [Ratio] 12.6 % 11.9-15.3 [facility] Globulin Calc (S) [Mass/Vol] Ordered By: Hunter Dhillon on 03-12-2023 Globulin (S) [Mass/Vol] 2.2 g/dL [facility] Glucose [Mass/volume] in Ser um or PlasmaOrdered By: Hunter Dhillon on 03-12-2023 Glucose [Mass/Vol] 87 mg/dL 70-100 [facility] Comment on above: ADA recommended refe rence rangeRandom Glucose Reference Range is dependent on time and content of last meal. Glucose of more than 200 mg/dL in a nonstressed, ambulatory subject supports the diagnosis of Diabetes Mellitus. Hematocrit Auto (Bld) [Volum e fraction]Ordered By: Hunter Dhillon on 03-12-2023 Hematocrit (Bld) [Volume fraction] 35.5 % 34.0-46.4 [facility] Hemoglobin [Mass/volume] in BloodOrdered By: Hunter Dhillon on 03-12-2023 Hemoglobin (Bld) [Mass/Vol] 12.4 g/dL 11.8-15.4 [facility] Hepatic Panelon 03-12-2023 Albumin [Mass/Vol] 4.1 g/dL Normal 3.5-5.7 [facility] Comment on above: Performed By: #### B CIGARETTE MACHINES MECHANIC, BMP, PT, PTT, HS TROP, CBC, TSH3, CK #### [facility] [address] Albumin/Globulin [Mass ratio] 1.9 {ratio} Normal [facility] Comment on above: Performed By: #### B CIGARETTE MACHINES MECHANIC, BMP, PT, PTT, HS TROP, CBC, TSH3, CK #### [facility] [address] [place] [address] [place] ALP [Catalytic activity/Vol] 40 U/L Normal 34-104 [facility] Comment on above: Performed By: #### B CIGARETTE MACHINES MECHANIC, BMP, PT, PTT, HS TROP, CBC, TSH3, CK #### [facility] [address] [place] [address] [place] ALT [Catalytic activity/Vol] 14 U/L Normal 7-52 [facility] Comment on above: Performed By: #### B CIGARETTE MACHINES MECHANIC, BMP, PT, PTT, HS TROP, CBC, TSH3, CK #### [address] AST [Catalytic activity/Vol] 15 U/L Normal 13-39 [facility] Comment on above: Performed By: #### B CIGARETTE MACHINES MECHANIC, BMP, PT, PTT, HS TROP, CBC, TSH3, CK #### [address] Bilirubin [Mass/Vol] 0.4 mg/dL Normal 0.3-1.0 [facility] Comment on above: Performed By: #### B CIGARETTE MACHINES MECHANIC, BMP, PT, PTT, HS TROP, CBC, TSH3, CK #### [address] Bilirubin,Indirect 0.3 mg/dL Normal [facility] Comment on above: Performed By: #### B CIGARETTE MACHINES MECHANIC, BMP, PT, PTT, HS TROP, CBC, TSH3, CK #### [address] Bilirubin.indirect [Mass/Vol] 0.10 mg/dL Normal 0.03-0.18 [facility] Comment on above: Performed By: #### B CIGARETTE MACHINES MECHANIC, BMP, PT, PTT, HS TROP, CBC, TSH3, CK #### [address] Globulin (S) [Mass/Vol] 2.2 g/dL Normal [facility] Comment on above: Performed By: #### B CIGARETTE MACHINES MECHANIC, BMP, PT, PTT, HS TROP, CBC, TSH3, CK #### [address] Protein [Mass/Vol] 6.3 g/dL Low 6.4-8.9 [facility] Comment on above: Performed By: #### B CIGARETTE MACHINES MECHANIC, BMP, PT, PTT, HS TROP, CBC, TSH3, CK #### [address] INR in Platelet poor plasma by Coagulation assayOrdered By: Hunter Dhillon on 03-12-2023 INR Coag (PPP) [Relative time] 0.9 {INR} [facility] Comment on above: INR Therapeutic Rang [...] 03-12-2023 Ketones (U) [Mass/Vol] Negative Negative Fi [facility] Leukocytes [#/volume] correc jazmyne for nucleated erythrocytes in Blood by Automated counOrdered By: Hunter Dhillon on 03-12-2023 WBC corrected for nucl RBC Auto (Bld) [#/Vol] 8.9 10*3/uL 3.8-11.6 [facility] Lymphocytes Auto (Bld) [#/Vo l]Ordered By: Hunter Dhillon on 03-12-2023 Lymphocytes (Bld) [#/Vol] 1.2 10*3/uL 1.00-4.8 [facility] Lymphocytes/100 WBC Auto (Bl d)Ordered By: Hunter Dhillon on 03-12-2023 Lymphocytes/100 WBC (Bld) 13.2 % . [facility] MCH Auto (RBC) [Entitic mass ]Ordered By: Hunter Dhillon on 03-12-2023 MCH (RBC) [Entitic mass] 31.9 pg 24.7-34.3 [facility] MCHC Auto (RBC) [Mass/Vol]Or dered By: Hunter Dhillon on 03-12-2023 MCHC (RBC) [Mass/Vol] 34.7 g/dL 32.0-35.0 [facility] MCV Auto (RBC) [Entitic vol] Ordered By: Hunter Dhillon on 03-12-2023 MCV (RBC) [Entitic vol] 91.8 fL 80-100 [facility] Monocyte distribution width [Entitic volume] in Blood by AutomatedOrdered By: Hunter Dhillon on 03-12-2023 Monocyte distribution width Auto (Bld) [Entitic vol] 17.50 % 0.00-20.00 [facility] Monocytes Auto (Bld) [#/Vol] Ordered By: Hunter Dhillon on 03-12-2023 Monocytes (Bld) [#/Vol] 0.5 10*3/uL 0.0-0.8 [facility] Monocytes/100 WBC Auto (Bld) Ordered By: Hunter Dhillon on 03-12-2023 Monocytes/100 WBC (Bld) 5.1 % . [facility] Natriuretic peptide B [Mass/ Vol]Ordered By: Hunter Dhillon on 03-12-2023 Natriuretic peptide B (Bld) [Mass/Vol] 83.0 pg/mL 5-100 [facility] Neutrophils Auto (Bld) [#/Vo l]Ordered By: Hunter Dhillon on 03-12-2023 Neutrophils (Bld) [#/Vol] 7.0 10*3/uL 1.8-7.7 [facility] Neutrophils/100 WBC Auto (Bl d)Ordered By: Hunter Dhillon on 03-12-2023 Neutrophils/100 WBC (Bld) 79.3 % . [facility] No Panel InformationOrdered By: Hunter Dhillon on 03-12-2023 Estimated GFR (CKD-EPI) > 60.0 mL/Min [facility] Creatinine Clearance (Chem 41.99 [facility] Nucleated erythrocytes [Pres ence] in Blood by Automated countOrdered By: Hunter Dhillon on 03-12-2023 Nucleated RBC Auto Ql (Bld) 0.0 /100{WBC} 0-0.5 [facility] Partial Thromboplastin Timeo n 03-12-2023 aPTT Coag (Bld) [Time] 26.1 s Normal 25.1-36.5 [facility] Comment on above: Result Comment: A he matocrit value greater than 55% may lead to inaccurate results in coagulation testing. Patients having hematocrit values >55% require a special collection tube for coagulation studies. Please contact the laboratory at [phone] for redraw instructions. PERFORMED BY: [place] [address] [place] [address] PATHOLOGIST CRAFT RECRUITER JIANLAN SUN M.D. Performed By: #### B CIGARETTE MACHINES MECHANIC, BMP, PT, PTT, HS TROP, CBC, TSH3, CK #### [facility] [address] Platelet mean volume Auto (B ld) [Entitic vol]Ordered By: Hunter Dhillon on 03-12-2023 Platelet mean volume (Bld) [Entitic vol] 7.2 fL 6.3-10.7 [facility] Platelets Auto (Bld) [#/Vol] Ordered By: Hunter Dhillon on 03-12-2023 Platelets (Bld) [#/Vol] 237 10*3/uL 150-450 [facility] Potassium [Moles/volume] in Serum or PlasmaOrdered By: Hunter Dhillon on 03-12-2023 Potassium [Moles/Vol] 4.5 mmol/L 3.5-5.1 [facility] Protein Auto test strip (U) [Mass/Vol]Ordered By: Hunter Dhillon on 03-12-2023 Protein (U) [Mass/Vol] Negative Negative [facility] Protein [Mass/volume] in Ser um or PlasmaOrdered By: Hunter Dhillon on 03-12-2023 Protein [Mass/Vol] 6.3 g/dL 6.4-8.9 [facility] Prothrombin Time INRon 03-12 INR Coag (PPP) [Relative time] 0.9 {INR} Normal [facility] Comment on above: Result Comment: INR [...] 3 - 4.5 Performed By: #### B CIGARETTE MACHINES MECHANIC, BMP, PT, PTT, HS TROP, CBC, TSH3, CK #### [facility] [address] [place] [address] [facility] PT Coag (PPP) [Time] 11.3 s Normal 9.0-12.9 [facility] Comment on above: Result Comment: A he matocrit value greater than 55% may lead to inaccurate results in coagulation testing. Patients having hematocrit values >55% require a special collection tube for coagulation studies. Please contact the laboratory at [phone] for redraw instructions. Performed By: #### B CIGARETTE MACHINES MECHANIC, BMP, PT, PTT, HS TROP, CBC, TSH3, CK #### [facility] [address] Prothrombin time (PT)Ordered By: Hunter Dhillon on 03-12-2023 PT Coag (PPP) [Time] 11.3 s 9.0-12.9 [facility] Comment on above: A hematocrit value g reater than 55% may lead to inaccurate results in coagulation testing. Patients having hematocrit values >55% require a special collection tube for coagulation studies. Please contact the laboratory at [phone] for redraw instructions. RBC Auto (Bld) [#/Vol]Ordere d By: Hunter Dhillon on 03-12-2023 RBC (Bld) [#/Vol] 3.87 10*6/uL 3.60-5.00 [facility] Serum or plasma albumin/glob ulin mass ratioOrdered By: Hunter Dhillon on 03-12-2023 Albumin/Globulin [Mass ratio] 1.9 {ratio} [facility] Serum or plasma anion gap de terminationOrdered By: Hunter Dhillon on 03-12-2023 Anion gap [Moles/Vol] 13.3 mmol/L 6.0-15.0 [facility] Serum or plasma non-glucuron idated bilirubin measurement (mass/volume)Ordered By: Hunter Dhillon on 03-12-2023 Bilirubin.indirect [Mass/Vol] 0.3 mg/dL [facility] Sodium [Moles/volume] in Ser um or PlasmaOrdered By: Hunter Dhillon on 03-12-2023 Sodium [Moles/Vol] 128 mmol/L 136-145 [facility] Squamous epithelial cells de tection in urine sediment by light microscopyOrdered By: Hunter Dhillon on 03-12-2023 Epithelial cells.squamous LM Ql (Urine sed) 5-9 [HPF] 0-2 [facility] Thyroid Stimulating Hormoneo n 03-12-2023 TSH Qn 0.01 m[IU]/L Low 0.45-5.33 [facility] Comment on above: Result Comment: PERF ORMED BY: [place] [address] PATHOLOGIST CRAFT RECRUITER RAQUEL LOPEZ M.D. Performed By: #### B CIGARETTE MACHINES MECHANIC, BMP, PT, PTT, HS TROP, CBC, TSH3, CK #### [facility] [address] [place] [id number] [facility] Thyrotropin [Units/volume] i n Serum or PlasmaOrdered By: Hunter Dhillon on 03-12-2023 TSH Qn 0.01 m[IU]/L 0.45-5.33 [facility] Troponin I High Sensitivityo n 03-12-2023 Troponin I High Sensitivity 5.6 pg/mL Normal 0.0-15.0 [facility] Comment on above: Result Comment: PERF ORMED BY: [place] [address] PATHOLOGIST CRAFT RECRUITER RAQUEL LOPEZ M.D. Performed By: #### B CIGARETTE MACHINES MECHANIC, BMP, PT, PTT, HS TROP, CBC, TSH3, CK #### [facility] [address] [place] [id number] [facility] Troponin I.cardiac [Mass/vol ume] in Serum or Plasma by Detection limit <= 0.01 ng/Ordered By: Hunter Dhillon on 03-12-2023 Troponin I.cardiac DL <= 0.01 ng/mL [Mass/Vol] 5.6 pg/mL 0.0-15.0 [facility] Urea nitrogen [Mass/volume] in Serum or PlasmaOrdered By: Hunter Dhillon on 03-12-2023 Urea nitrogen [Mass/Vol] 11 mg/dL 7-25 [facility] Urine appearanceOrdered By: Hunter Dhillon on 03-12-2023 Appearance (U) Slightly cloudy Clear [facility] Urine bacteria detection by automated methodOrdered By: Hunter Dhillon on 03-12-2023 Bacteria Auto Ql (U) 1+ None Seen [facility] Urine colorOrdered By: Gera Dhillon on 03-12-2023 Color (U) Yellow Yellow [facility] Urine glucose measurement by automated test strip (mass/volume)Ordered By: Hunter Dhillon on 03-12-2023 Glucose Auto test strip (U) [Mass/Vol] Normal mg/dL Normal [facility] Urine hemoglobin detection b y automated test stripOrdered By: Hunter Dhillon on 03-12-2023 Hemoglobin Auto test strip Ql (U) Negative Negative [facility] Urine leukocyte esterase det ection by automated test stripOrdered By: Hunter Dhillon on 03-12-2023 Leukocyte esterase Auto test strip Ql (U) 3+ Negative [facility] Urine nitrite detection by a utomated test stripOrdered By: Hunter Dhillon on 03-12-2023 Nitrite Auto test strip Ql (U) Negative Negative [facility] Urobilinogen Auto test strip (U) [Mass/Vol]Ordered By: Hunter Dhillon on 03-12-2023 Urobilinogen (U) [Mass/Vol] Normal mg/dL Normal [facility] WBC Auto (Bld) [#/Vol]Ordere d By: Hunter Dhillon on 03-12-2023 WBC (Bld) [#/Vol] 8.9 10*3/uL 3.8-11.6 [facility] pH Auto test strip (U)Ordere d By: Hunter Dhillon on 03-12-2023 pH (U) 1.010 [pH] 1.001-1.03 0 [facility] pH (U) 7.5 [pH] 5.0-9.0 [facility] Basic Metabolic Panelon 09-2 Anion gap [Moles/Vol] 6.6 mmol/L Normal 6.0-15.0 [facility] Comment on above: Performed By: #### B CIGARETTE MACHINES MECHANIC, BMP, PT, PTT, HS TROP, CBC, TSH3, CK #### [facility] [address] [place] [address] [place] Calcium [Mass/Vol] 8.9 mg/dL Normal 8.6-10.3 [facility] Comment on above: Performed By: #### B CIGARETTE MACHINES MECHANIC, BMP, PT, PTT, HS TROP, CBC, TSH3, CK #### [facility] [address] Chloride [Moles/Vol] 104 mmol/L Normal 98-107 [facility] Comment on above: Performed By: #### B CIGARETTE MACHINES MECHANIC, BMP, PT, PTT, HS TROP, CBC, TSH3, CK #### [facility] [address] CO2 [Moles/Vol] 26.8 mmol/L Normal 21.0-31.0 [facility] Comment on above: Performed By: #### B CIGARETTE MACHINES MECHANIC, BMP, PT, PTT, HS TROP, CBC, TSH3, CK #### [facility] [address] Creatinine [Mass/Vol] 0.83 mg/dL Normal 0.60-1.20 [facility] Comment on above: Performed By: #### B CIGARETTE MACHINES MECHANIC, BMP, PT, PTT, HS TROP, CBC, TSH3, CK #### [address] Creatinine Clr Calc Pharmacy 46.94 [facility] Comment on above: Performed By: #### B CIGARETTE MACHINES MECHANIC, BMP, PT, PTT, HS TROP, CBC, TSH3, CK #### [facility] [address] GFR/1.73 sq M.predicted MDRD (S/P/Bld) [Vol rate/Area] mL/min/{1.73_m2} [facility] Comment on above: Performed By: #### B CIGARETTE MACHINES MECHANIC, BMP, PT, PTT, HS TROP, CBC, TSH3, CK #### [facility] [address] Glucose [Mass/Vol] 94 mg/dL Normal 70-100 [facility] Comment on above: Result Comment: [place] Glucose Reference Range is dependent on time and content of last meal. Glucose of more than 200 mg/dL in a nonstressed, ambulatory subject supports the diagnosis of Diabetes Mellitus. ADA recommended reference range Performed By: #### B CIGARETTE MACHINES MECHANIC, BMP, PT, PTT, HS TROP, CBC, TSH3, CK #### [facility] [address] [place] [address] [place] Potassium [Moles/Vol] 4.4 mmol/L Normal 3.5-5.1 [facility] Comment on above: Performed By: #### B CIGARETTE MACHINES MECHANIC, BMP, PT, PTT, HS TROP, CBC, TSH3, CK #### [facility] [address] Sodium [Moles/Vol] 133 mmol/L Low 136-145 [facility] Comment on above: Performed By: #### B CIGARETTE MACHINES MECHANIC, BMP, PT, PTT, HS TROP, CBC, TSH3, CK #### [facility] [address] Urea nitrogen [Mass/Vol] 8 mg/dL Normal 7-25 [facility] Comment on above: Performed By: #### B CIGARETTE MACHINES MECHANIC, BMP, PT, PTT, HS TROP, CBC, TSH3, CK #### [facility] [address] Basophils Auto (Bld) [#/Vol] Ordered By: Chuck Chacon on 03-07-2023 Basophils (Bld) [#/Vol] 0.0 10*3/uL 0.0-0.2 [facility] Basophils/100 WBC Auto (Bld) Ordered By: Chuck Chacon on 03-07-2023 Basophils/100 WBC (Bld) 0.7 % . [facility] Calcium [Mass/volume] in Ser um or PlasmaOrdered By: Chuck Chacon on 03-07-2023 Calcium [Mass/Vol] 8.9 mg/dL 8.6-10.3 [facility] Carbon dioxide, total [Moles /volume] in Serum or PlasmaOrdered By: Chuck Chacon on 03-07-2023 CO2 [Moles/Vol] 26.8 mmol/L 21.0-31.0 [facility] Chloride [Moles/volume] in S yamilex or PlasmaOrdered By: Chuck Chacon on 03-07-2023 Chloride [Moles/Vol] 104 mmol/L 98-107 [facility] Complete Blood Count Auto Di ffon 03-07-2023 Basophils (Bld) [#/Vol] 0.0 10*3/uL Normal 0.0-0.2 [facility] Comment on above: Result Comment: PERF ORMED BY: [place] [address] PATHOLOGIST CRAFT RECRUITER RAQUEL LOPEZ M.D. Performed By: #### B CIGARETTE MACHINES MECHANIC, BMP, PT, PTT, HS TROP, CBC, TSH3, CK #### [address] Basophils/100 WBC (Bld) 0.7 % Normal . [facility] Comment on above: Performed By: #### B CIGARETTE MACHINES MECHANIC, BMP, PT, PTT, HS TROP, CBC, TSH3, CK #### [address] Eosinophils (Bld) [#/Vol] 0.4 10*3/uL Normal 0.0-0.45 [facility] Comment on above: Performed By: #### B CIGARETTE MACHINES MECHANIC, BMP, PT, PTT, HS TROP, CBC, TSH3, CK #### [address] Eosinophils/100 WBC (Bld) 5.2 % Normal . [facility] Comment on above: Performed By: #### B CIGARETTE MACHINES MECHANIC, BMP, PT, PTT, HS TROP, CBC, TSH3, CK #### [address] Erythrocyte distribution width (RBC) [Ratio] 12.8 % Normal 11.9-15.3 [facility] [facility] Comment on above: Performed By: #### B [employer] MECHANIC, BMP, PT, PTT, HS TROP, CBC, TSH3, CK #### [address] Hematocrit (Bld) [Volume fraction] 35.2 % Normal 34.0-46.4 [facility] Comment on above: Performed By: #### B [employer] MECHANIC, BMP, PT, PTT, HS TROP, CBC, TSH3, CK #### [place] [address] [place] Hemoglobin (Bld) [Mass/Vol] 12.0 g/dL Normal 11.8-15.4 [facility] Comment on above: Performed By: #### B [employer] MECHANIC, BMP, PT, PTT, HS TROP, CBC, TSH3, CK #### [address] Lymphocytes (Bld) [#/Vol] 1.7 10*3/uL Normal 1.00-4.8 [facility] Comment on above: Performed By: #### B [employer] MECHANIC, BMP, PT, PTT, HS TROP, CBC, TSH3, CK #### [address] Lymphocytes/100 WBC (Bld) 24.6 % Normal . [facility] Comment on above: Performed By: #### B [employer] MECHANIC, BMP, PT, PTT, HS TROP, CBC, TSH3, CK #### [address] MCH (RBC) [Entitic mass] 31.6 pg Normal 24.7-34.3 [facility] Comment on above: Performed By: #### B [employer] MECHANIC, BMP, PT, PTT, HS TROP, CBC, TSH3, CK #### [address] MCV (RBC) [Entitic vol] 92.5 fL Normal 80-100 [facility] Comment on above: Performed By: #### B [employer] MECHANIC, BMP, PT, PTT, HS TROP, CBC, TSH3, CK #### [address] Mean Corpuscular HGB Conc 34.1 g/dL Normal 32.0-35.0 [facility] Comment on above: Performed By: #### B [employer] MECHANIC, BMP, PT, PTT, HS TROP, CBC, TSH3, CK #### [address] Monocytes (Bld) [#/Vol] 0.6 10*3/uL Normal 0.0-0.8 [facility] Comment on above: Performed By: #### B [employer] MECHANIC, BMP, PT, PTT, HS TROP, CBC, TSH3, CK #### [facility] [address] Monocytes/100 WBC (Bld) 8.7 % Normal . [facility] Comment on above: Performed By: #### B [employer] MECHANIC, BMP, PT, PTT, HS TROP, CBC, TSH3, CK #### [facility] [address] Neutrophils (Bld) [#/Vol] 4.2 10*3/uL Normal 1.8-7.7 [facility] Comment on above: Performed By: #### B [employer] MECHANIC, BMP, PT, PTT, HS TROP, CBC, TSH3, CK #### [address] Neutrophils/100 WBC (Bld) 60.8 % Normal . [facility] Comment on above: Performed By: #### B [employer] MECHANIC, BMP, PT, PTT, HS TROP, CBC, TSH3, CK #### [address] NRBC% 0.0 /100{WBC} Normal 0-0.5 [facility] Comment on above: Performed By: #### B [employer] MECHANIC, BMP, PT, PTT, HS TROP, CBC, TSH3, CK #### [address] Platelet mean volume (Bld) [Entitic vol] 7.5 fL Normal 6.3-10.7 [facility] Comment on above: Performed By: #### B [employer] MECHANIC, BMP, PT, PTT, HS TROP, CBC, TSH3, CK #### [facility] [address] Platelets (Bld) [#/Vol] 232 10*3/uL Normal 150-450 [facility] Comment on above: Performed By: #### B [employer] MECHANIC, BMP, PT, PTT, HS TROP, CBC, TSH3, CK #### [address] RBC (Bld) [#/Vol] 3.80 10*6/uL Normal 3.60-5.00 [facility] Comment on above: Performed By: #### B [employer] MECHANIC, BMP, PT, PTT, HS TROP, CBC, TSH3, CK #### [facility] [address] [place] [address] [place] WBC (Bld) [#/Vol] 6.8 10*3/uL Normal 3.8-11.6 [facility] Comment on above: Performed By: #### B [employer]IG[employer] MECHANIC, BMP, PT, PTT, HS TROP, CBC, TSH3, CK #### [facility] [address] Creatinine [Mass/volume] in Serum or PlasmaOrdered By: Chcuk Chacon on 03-07-2023 Creatinine [Mass/Vol] 0.83 mg/dL 0.60-1.20 [facility] Eosinophils Auto (Bld) [#/Vo l]Ordered By: Chuck Chacon on 03-07-2023 Eosinophils (Bld) [#/Vol] 0.4 10*3/uL 0.0-0.45 [facility] Eosinophils/100 WBC Auto (Bl d)Ordered By: Chuck Chacon on 03-07-2023 Eosinophils/100 WBC (Bld) 5.2 % . [facility] Erythrocyte distribution wid th Auto (RBC) [Ratio]Ordered By: Chuck Chacon on 03-07-2023 Erythrocyte distribution width (RBC) [Ratio] 12.8 % 11.9-15.3 [facility] Glucose [Mass/volume] in Ser um or PlasmaOrdered By: Chuck Chacon on 03-07-2023 Glucose [Mass/Vol] 94 mg/dL 70-100 [facility] Comment on above: ADA recommended refe rence rangeRandom Glucose Reference Range is dependent on time and content of last meal. Glucose of more than 200 mg/dL in a nonstressed, ambulatory subject supports the diagnosis of Diabetes Mellitus. Hematocrit Auto (Bld) [Volum e fraction]Ordered By: Chuck Chacon on 03-07-2023 Hematocrit (Bld) [Volume fraction] 35.2 % 34.0-46.4 [facility] Hemoglobin [Mass/volume] in BloodOrdered By: Chuck Chacon on 03-07-2023 Hemoglobin (Bld) [Mass/Vol] 12.0 g/dL 11.8-15.4 [facility] Leukocytes [#/volume] correc jazmyne for nucleated erythrocytes in Blood by Automated counOrdered By: Chuck Chacon on 03-07-2023 WBC corrected for nucl RBC Auto (Bld) [#/Vol] 6.8 10*3/uL 3.8-11.6 [facility] Lymphocytes Auto (Bld) [#/Vo l]Ordered By: Chuck [facility] on 03-07-2023 Lymphocytes (Bld) [#/Vol] 1.7 10*3/uL 1.00-4.8 [facility] Lymphocytes/100 WBC Auto (Bl d)Ordered By: Chuck [facility] on 03-07-2023 Lymphocytes/100 WBC (Bld) 24.6 % . [facility] MCH Auto (RBC) [Entitic mass ]Ordered By: Chuckscooby Chacon on 03-07-2023 MCH (RBC) [Entitic mass] 31.6 pg 24.7-34.3 [facility] MCHC Auto (RBC) [Mass/Vol]Or dered By: Chuck Chacon on 03-07-2023 MCHC (RBC) [Mass/Vol] 34.1 g/dL 32.0-35.0 [facility] MCV Auto (RBC) [Entitic vol] Ordered By: Chuck sunita on 03-07-2023 MCV (RBC) [Entitic vol] 92.5 fL 80-100 [facility] Magnesiumon 03-07-2023 Magnesium [Mass/Vol] 1.4 mg/dL Low 1.9-2.7 [facility] Comment on above: Result Comment: PERF ORMED BY: [facility] [address] [place] [address] PATHOLOGIST CRAFT RECRUITER RAQUEL LOPEZ M.D. Performed By: #### B [employer]IG[employer]ET[employer] MACH[employer] MECHANIC, BMP, PT, PTT, HS TROP, CBC, TSH3, CK #### [facility] [address] [place] [id number] [facility] Magnesium [Mass/volume] in S yamilex or PlasmaOrdered By: Chuck Chacon on 03-07-2023 Magnesium [Mass/Vol] 1.4 mg/dL 1.9-2.7 [facility] Monocytes Auto (Bld) [#/Vol] Ordered By: Chuck Chacon on 03-07-2023 Monocytes (Bld) [#/Vol] 0.6 10*3/uL 0.0-0.8 [facility] Monocytes/100 WBC Auto (Bld) Ordered By: Chuck Chacon on 03-07-2023 Monocytes/100 WBC (Bld) 8.7 % . [facility] Neutrophils Auto (Bld) [#/Vo l]Ordered By: Chuckscooby Chacon on 03-07-2023 Neutrophils (Bld) [#/Vol] 4.2 10*3/uL 1.8-7.7 [facility] Neutrophils/100 WBC Auto (Bl d)Ordered By: Chuck Chacon on 03-07-2023 Neutrophils/100 WBC (Bld) 60.8 % . [facility] No Panel InformationOrdered By: Chuck Chacon on 03-07-2023 Estimated GFR (CKD-EPI) > 60.0 mL/Min [facility] Creatinine Clearance (Chem 46.94 [facility] Nucleated erythrocytes [Pres ence] in Blood by Automated countOrdered By: Chuck Chacon on 03-07-2023 Nucleated RBC Auto Ql (Bld) 0.0 /100{WBC} 0-0.5 [facility] Platelet mean volume Auto (B ld) [Entitic vol]Ordered By: Chuck Chacon on 03-07-2023 Platelet mean volume (Bld) [Entitic vol] 7.5 fL 6.3-10.7 [facility] Platelets Auto (Bld) [#/Vol] Ordered By: Chuck Chacon on 03-07-2023 Platelets (Bld) [#/Vol] 232 10*3/uL 150-450 [facility] Potassium [Moles/volume] in Serum or PlasmaOrdered By: Chuck Chacon on 03-07-2023 Potassium [Moles/Vol] 4.4 mmol/L 3.5-5.1 [facility] RBC Auto (Bld) [#/Vol]Ordere d By: Chuckcasandra Chacon on 03-07-2023 RBC (Bld) [#/Vol] 3.80 10*6/uL 3.60-5.00 [facility] Serum or plasma anion gap de terminationOrdered By: Chuckcasandra Chacon on 03-07-2023 Anion gap [Moles/Vol] 6.6 mmol/L 6.0-15.0 [facility] Sodium [Moles/volume] in Ser um or PlasmaOrdered By: Chuckcasandra Chacon on 03-07-2023 Sodium [Moles/Vol] 133 mmol/L 136-145 [facility] Urea nitrogen [Mass/volume] in Serum or PlasmaOrdered By: Chuck Chacon on 03-07-2023 Urea nitrogen [Mass/Vol] 8 mg/dL - [facility] WBC Auto (Bld) [#/Vol]Ordere d By: Chuckcasandra Chacon on 03-07-2023 WBC (Bld) [#/Vol] 6.8 10*3/uL 3.8-11.6 [facility] A1C with Estimated Average G christyn 03-06-2023 Glucose [Mass/Vol] 120 mg/dL Normal [facility] Comment on above: Result Comment: PERF ORMED BY: [facility] [address] [place] [address] PATHOLOGIST CRAFT RECRUITER RAQUEL LOPEZ M.D. Performed By: #### B CIG[employer] MACH[employer] MECHANIC, BMP, PT, PTT, HS TROP, CBC, TSH3, CK #### [facility] [address] HbA1c (Bld) [Mass fraction] 5.8 % High 4.3-5.6 [facility] Comment on above: Result Comment: Incr eased risk for diabetes: 5.7 - 6.4 diabetes: >6.4 glycemic control for adults with diabetes: <7.0 Performed By: #### B [employer]IG[employer] MACH[employer] MECHANIC, BMP, PT, PTT, HS TROP, CBC, TSH3, CK #### [facility] [address] Alanine aminotransferase [En zymatic activity/volume] in Serum or PlasmaOrdered By: Jemal Jones on 03-06-2023 ALT [Catalytic activity/Vol] 17 U/L 7-52 [facility] Albumin [Mass/volume] in Ser um or Plasma by Bromocresol green (BCG) dye binding methoOrdered By: Jemal Jones on 03-06-2023 Albumin BCG dye [Mass/Vol] 4.3 g/dL 3.5-5.7 [facility] Alkaline phosphatase [Enzyma tic activity/volume] in Serum or PlasmaOrdered By: Jemal Jones on 03-06-2023 ALP [Catalytic activity/Vol] 45 U/L 34-104 [facility] Aspartate aminotransferase [ Enzymatic activity/volume] in Serum or PlasmaOrdered By: Jemal Jones on 03-06-2023 AST [Catalytic activity/Vol] 16 U/L 13-39 [facility] Bilirubin.total [Mass/volume ] in Serum or PlasmaOrdered By: Jemal Jones on 03-06-2023 Bilirubin [Mass/Vol] 0.5 mg/dL 0.3-1.0 [facility] Cholesterol [Mass/volume] in Serum or PlasmaOrdered By: Jemal Jones on 03-06-2023 Cholesterol [Mass/Vol] 88 mg/dL 140-200 [facility] Comment on above: Chol less than 200 m g/dl low riskChol 201-239 mg/dl borderline riskChol 240 mg/dl and greater high risk Cholesterol in LDL Calc [Mas s/Vol]Ordered By: Jemal Jones on 03-06-2023 Cholesterol in LDL [Mass/Vol] 29 mg/dL 0-100 [facility] Comment on above: LDL ATP III CLASSIFI CATIONLDL less than 100 mg/dL OptimalLDL 100-129 mg/dL Near or above optimalLDL 130-159 mg/dL Borderline highLDL 160-189 mg/dL HighLDL greater than 189 mg/dL Very high Cholesterol in VLDL Calc [Ma ss/Vol]Ordered By: Jemal Jones on 03-06-2023 Cholesterol in VLDL [Mass/Vol] 16 mg/dL [facility] Complete Blood Count Auto Di ffon 03-06-2023 Basophils (Bld) [#/Vol] 0.0 10*3/uL Normal 0.0-0.2 [facility] Comment on above: Result Comment: PERF ORMED BY: [place] [address] PATHOLOGIST CRAFT RECRUITER RAQUEL LOPEZ M.D. Performed By: #### B CIGARETTE MACHIN[employer] MECHANIC, BMP, PT, PTT, HS TROP, CBC, TSH3, CK #### [address] Basophils/100 WBC (Bld) 0.6 % Normal . [facility] Comment on above: Performed By: #### B CIGARET[employer] MACHIN[employer] MECHANIC, BMP, PT, PTT, HS TROP, CBC, TSH3, CK #### [address] Eosinophils (Bld) [#/Vol] 0.3 10*3/uL Normal 0.0-0.45 [facility] Comment on above: Performed By: #### B CIGARET[employer] MACHIN[employer] MECHANIC, BMP, PT, PTT, HS TROP, CBC, TSH3, CK #### [address] Eosinophils/100 WBC (Bld) 4.2 % Normal . [facility] Comment on above: Performed By: #### B CIGARET[employer] MACHIN[employer] MECHANIC, BMP, PT, PTT, HS TROP, CBC, TSH3, CK #### [address] Erythrocyte distribution width (RBC) [Ratio] 12.9 % Normal 11.9-15.3 [facility] Comment on above: Performed By: #### B CIGARET[employer] MACHIN[employer] MECHANIC, BMP, PT, PTT, HS TROP, CBC, TSH3, CK #### [address] Hematocrit (Bld) [Volume fraction] 37.9 % Normal 34.0-46.4 [facility] Comment on above: Performed By: #### B CIG[employer]ET[employer] MACHIN[employer] MECHANIC, BMP, PT, PTT, HS TROP, CBC, TSH3, CK #### [address] Hemoglobin (Bld) [Mass/Vol] 13.0 g/dL Normal 11.8-15.4 [facility] Comment on above: Performed By: #### B CIGARET[employer] MACHIN[employer] MECHANIC, BMP, PT, PTT, HS TROP, CBC, TSH3, CK #### [address] Lymphocytes (Bld) [#/Vol] 1.7 10*3/uL Normal 1.00-4.8 [facility] Comment on above: Performed By: #### B CIGARET[employer] MACHIN[employer] MECHANIC, BMP, PT, PTT, HS TROP, CBC, TSH3, CK #### [address] Lymphocytes/100 WBC (Bld) 22.0 % Normal . [facility] Comment on above: Performed By: #### B CIGARET[employer] MACHIN[employer] MECHANIC, BMP, PT, PTT, HS TROP, CBC, TSH3, CK #### [address] MCH (RBC) [Entitic mass] 31.5 pg Normal 24.7-34.3 [facility] Comment on above: Performed By: #### B CIGARET[employer] MACHINES MECHANIC, BMP, PT, PTT, HS TROP, CBC, TSH3, CK #### [address] MCV (RBC) [Entitic vol] 91.9 fL Normal 80-100 [facility] Comment on above: Performed By: #### B CIGARETTE MACHINES MECHANIC, BMP, PT, PTT, HS TROP, CBC, TSH3, CK #### [address] Mean Corpuscular HGB Conc 34.3 g/dL Normal 32.0-35.0 [facility] Comment on above: Performed By: #### B CIGARETTE MACHINES MECHANIC, BMP, PT, PTT, HS TROP, CBC, TSH3, CK #### [facility] [address] [place] [address] [place] Monocytes (Bld) [#/Vol] 0.6 10*3/uL Normal 0.0-0.8 [facility] Comment on above: Performed By: #### B CIGARETTE MACHINES MECHANIC, BMP, PT, PTT, HS TROP, CBC, TSH3, CK #### [address] Monocytes/100 WBC (Bld) 8.2 % Normal . [facility] Comment on above: Performed By: #### B CIGARETTE MACHINES MECHANIC, BMP, PT, PTT, HS TROP, CBC, TSH3, CK #### [address] Neutrophils (Bld) [#/Vol] 5.1 10*3/uL Normal 1.8-7.7 [facility] Comment on above: Performed By: #### B CIGARETTE MACHINES MECHANIC, BMP, PT, PTT, HS TROP, CBC, TSH3, CK #### [address] Neutrophils/100 WBC (Bld) 65.0 % Normal . [facility] Comment on above: Performed By: #### B CIGARETTE MACHINES MECHANIC, BMP, PT, PTT, HS TROP, CBC, TSH3, CK #### [address] NRBC% 0.1 /100{WBC} Normal 0-0.5 [facility] Comment on above: Performed By: #### B CIGARETTE MACHINES MECHANIC, BMP, PT, PTT, HS TROP, CBC, TSH3, CK #### [address] Platelet mean volume (Bld) [Entitic vol] 7.4 fL Normal 6.3-10.7 [facility] Comment on above: Performed By: #### B CIGARETTE MACHINES MECHANIC, BMP, PT, PTT, HS TROP, CBC, TSH3, CK #### [address] Platelets (Bld) [#/Vol] 257 10*3/uL Normal 150-450 [facility] Comment on above: Performed By: #### B CIGARETTE MACHINES MECHANIC, BMP, PT, PTT, HS TROP, CBC, TSH3, CK #### [address] RBC (Bld) [#/Vol] 4.12 10*6/uL Normal 3.60-5.00 [facility] Comment on above: Performed By: #### B CIGARETTE MACHINES MECHANIC, BMP, PT, PTT, HS TROP, CBC, TSH3, CK #### [address] WBC (Bld) [#/Vol] 7.8 10*3/uL Normal 3.8-11.6 [facility] Comment on above: Performed By: #### B CIGARETTE MACHINES MECHANIC, BMP, PT, PTT, HS TROP, CBC, TSH3, CK #### [address] Comprehensive Metabolic Pane zofia 03-06-2023 Albumin [Mass/Vol] 4.3 g/dL Normal 3.5-5.7 [facility] Comment on above: Performed By: #### B CIGARETTE MACHINES MECHANIC, BMP, PT, PTT, HS TROP, CBC, TSH3, CK #### [address] Albumin/Globulin [Mass ratio] 1.9 {ratio} Normal [facility] Comment on above: Performed By: #### B CIGARETTE MACHINES MECHANIC, BMP, PT, PTT, HS TROP, CBC, TSH3, CK #### [address] ALP [Catalytic activity/Vol] 45 U/L Normal 34-104 [facility] Comment on above: Performed By: #### B CIGARETTE MACHINES MECHANIC, BMP, PT, PTT, HS TROP, CBC, TSH3, CK #### [address] ALT [Catalytic activity/Vol] 17 U/L Normal 7-52 [facility] Comment on above: Performed By: #### B CIGARETTE MACHINES MECHANIC, BMP, PT, PTT, HS TROP, CBC, TSH3, CK #### [address] [place] [address] [place] Anion gap [Moles/Vol] 10.4 mmol/L Normal 6.0-15.0 [facility] Comment on above: Performed By: #### B CIGARETTE MACHINES MECHANIC, BMP, PT, PTT, HS TROP, CBC, TSH3, CK #### [facility] [address] AST [Catalytic activity/Vol] 16 U/L Normal 13-39 [facility] Comment on above: Performed By: #### B CIGARETTE MACHINES MECHANIC, BMP, PT, PTT, HS TROP, CBC, TSH3, CK #### [facility] [address] Bilirubin [Mass/Vol] 0.5 mg/dL Normal 0.3-1.0 [facility] Comment on above: Performed By: #### B CIGARETTE MACHINES MECHANIC, BMP, PT, PTT, HS TROP, CBC, TSH3, CK #### [facility] [address] Calcium [Mass/Vol] 9.2 mg/dL Normal 8.6-10.3 [facility] Comment on above: Performed By: #### B CIGARETTE MACHINES MECHANIC, BMP, PT, PTT, HS TROP, CBC, TSH3, CK #### [address] Chloride [Moles/Vol] 98 mmol/L Normal 98-107 [facility] Comment on above: Performed By: #### B CIGARETTE MACHIN[employer] MECHANIC, BMP, PT, PTT, HS TROP, CBC, TSH3, CK #### [facility] [address] CO2 [Moles/Vol] 24.9 mmol/L Normal 21.0-31.0 [facility] Comment on above: Performed By: #### B CIGARETTE MACHINES MECHANIC, BMP, PT, PTT, HS TROP, CBC, TSH3, CK #### [facility] [address] Creatinine [Mass/Vol] 0.85 mg/dL Normal 0.60-1.20 [facility] Comment on above: Performed By: #### B CIGARETTE MACHINES MECHANIC, BMP, PT, PTT, HS TROP, CBC, TSH3, CK #### [facility] [address] Creatinine Clr Calc Pharmacy 45.45 [facility] Comment on above: Performed By: #### B CIGARETTE MACHINES MECHANIC, BMP, PT, PTT, HS TROP, CBC, TSH3, CK #### [facility] [address] GFR/1.73 sq M.predicted MDRD (S/P/Bld) [Vol rate/Area] mL/min/{1.73_m2} [facility] Comment on above: Performed By: #### B CIGARETTE MACHINES MECHANIC, BMP, PT, PTT, HS TROP, CBC, TSH3, CK #### [facility] [address] Globulin (S) [Mass/Vol] 2.3 g/dL [facility] Comment on above: Performed By: #### B CIGARETTE MACHINES MECHANIC, BMP, PT, PTT, HS TROP, CBC, TSH3, CK #### [facility] [address] Glucose [Mass/Vol] 97 mg/dL Normal 70-100 [facility] Comment on above: Result Comment: [facility] Glucose Reference Range is dependent on time and content of last meal. Glucose of more than 200 mg/dL in a nonstressed, ambulatory subject supports the diagnosis of Diabetes Mellitus. ADA recommended reference range Performed By: #### B CIGARETTE MACHINES MECHANIC, BMP, PT, PTT, HS TROP, CBC, TSH3, CK #### [facility] [address] Potassium [Moles/Vol] 4.3 mmol/L Normal 3.5-5.1 [facility] Comment on above: Performed By: #### B CIGARETTE MACHINES MECHANIC, BMP, PT, PTT, HS TROP, CBC, TSH3, CK #### [facility] [address] Protein [Mass/Vol] 6.6 g/dL Normal 6.4-8.9 [facility] Comment on above: Performed By: #### B CIGARETTE MACHINES MECHANIC, BMP, PT, PTT, HS TROP, CBC, TSH3, CK #### [facility] [address] Sodium [Moles/Vol] 129 mmol/L Low 136-145 [facility] Comment on above: Performed By: #### B CIGARETTE MACHINES MECHANIC, BMP, PT, PTT, HS TROP, CBC, TSH3, CK #### [facility] [address] Urea nitrogen [Mass/Vol] 14 mg/dL Normal 01-03 [facility] Comment on above: Performed By: #### B CIGARETTE MACHINES MECHANIC, BMP, PT, PTT, HS TROP, CBC, TSH3, CK #### [address] Dipstick and Microscopicon 0 03-06-2023 Appearance (U) Clear Normal Clear [facility] Comment on above: Order Comment: Name Collection Type:: Clean-Voided Midstream Performed By: #### A DDONUAPLUS #### [address] Bacteria,Urine 1+ High None Seen [facility] Comment on above: Order Comment: Name Collection Type:: Clean-Voided Midstream Performed By: #### A DDONUAPLUS #### [address] Bilirubin,Urine Negative Normal Negative [facility] Comment on above: Order Comment: Name Collection Type:: Clean-Voided Midstream Performed By: #### A DDONUAPLUS #### [place] [address] [place] Color (U) Yellow Normal Yellow [facility] Comment on above: Order Comment: Name Collection Type:: Clean-Voided Midstream Performed By: #### A DDONUAPLUS #### [place] [address] [place] Glucose Ql (U) Normal Normal Normal [facility] Comment on above: Order Comment: Name Collection Type:: Clean-Voided Midstream Performed By: #### A DDONUAPLUS #### [place] [address] [place] Hyaline Casts,Urine None Seen Normal 0-1 [facility] Comment on above: Order Comment: Name Collection Type:: Clean-Voided Midstream Result Comment: PERF ORMED BY: [place] [address] PATHOLOGIST CRAFT RECRUITER RAQUEL LOPEZ M.D. Performed By: #### A DDONUAPLUS #### [address] Ketones Ql (U) Trace High Negative [facility] Comment on above: Order Comment: Name Collection Type:: Clean-Voided Midstream Performed By: #### A DDONUAPLUS #### [address] Leukocyte esterase Test strip Ql (U) 1+ High Negative [facility] Comment on above: Order Comment: Name Collection Type:: Clean-Voided Midstream Performed By: #### A DDONUAPLUS #### [address] Nitrite,Urine Negative Normal Negative [facility] Comment on above: Order Comment: Name Collection Type:: Clean-Voided Midstream Performed By: #### A DDONUAPLUS #### [address] Occult Blood,Urine Negative Normal Negative [facility] Comment on above: Order Comment: Name Collection Type:: Clean-Voided Midstream Result Comment: PERF ORMED BY: [place] [address] PATHOLOGIST CRAFT RECRUITER RAQUEL LOPEZ M.D. Performed By: #### A DDONUAPLUS #### [facility] [address] [place] [address] [place] pH (U) 6.0 [pH] Normal 5.0-9.0 [facility] Comment on above: Order Comment: Name Collection Type:: Clean-Voided Midstream Performed By: #### A DDONUAPLUS #### [place] [address] [place] Protein,Urine Negative Normal Negative [facility] Comment on above: Order Comment: Name Collection Type:: Clean-Voided Midstream Performed By: #### A DDONUAPLUS #### [facility] [address] [place] [address] [place] RBC,Urine None Seen Normal 0-4 [facility] Comment on above: Order Comment: Name Collection Type:: Clean-Voided Midstream Performed By: #### A DDONUAPLUS #### [facility] [address] [place] [address] Renal Epithelial Cells,Urine Rare Normal 0-1 [facility] Comment on above: Order Comment: Name Collection Type:: Clean-Voided Midstream Performed By: #### A DDONUAPLUS #### [address] Specificy [place],Urine 1.015 Normal 1.001-1.03 0 [facility] Comment on above: Order Comment: Name Collection Type:: Clean-Voided Midstream Performed By: #### A DDONUAPLUS #### [facility] [address] [place] [address] Squamous Epithelial Cell,Urine 3-4 High 0-2 [facility] Comment on above: Order Comment: Name Collection Type:: Clean-Voided Midstream Performed By: #### A DDONUAPLUS #### [facility] [address] [place] [address] [place] Urobilinogen,Urine Normal Normal Normal [facility] Comment on above: Order Comment: Name Collection Type:: Clean-Voided Midstream Performed By: #### A DDONUAPLUS #### [facility] [address] [place] [address] [place] WBC,Urine 3-4 Normal 0-4 [facility] Comment on above: Order Comment: Name Collection Type:: Clean-Voided Midstream Performed By: #### A DDONUAPLUS #### [facility] [address] [place] [address] [place] ECH echo transthoracicon ECH echo transthoracic [facility] [address] [place] [address] [place] [address] Echocardiogram Signed Patient: Steven Harding MR#: [id number] 1 : 1940 Acct:[id number] Age/Sex: 83 / F ADM Date: 03/05/23 Loc: Room: [address] [place] [address] Type: ADM INOo Attending Dr: Chuck Chacon [...] Signed By: Karli Dougherty MD 03/06/23 1231 Normal [facility] Free T4 (Free Thyroxine)on 0 03-06-2023 Free T4 [Mass/Vol] 1.01 ng/dL Normal 0.61-1.12 [facility] Comment on above: Performed By: #### B CIG[employer]ACH[employer] MECHANIC, BMP, PT, PTT, HS TROP, CBC, TSH3, CK #### [facility] [address] Globulin Calc (S) [Mass/Vol] Ordered By: Jemal Jones on 03-06-2023 Globulin (S) [Mass/Vol] 2.3 g/dL [facility] Glucose Glucometer (BldC) [M ass/Vol]Ordered By: Jemal Jones on 03-06-2023 Glucose [Mass/Vol] 104 mg/dL [facility] Comment on above: Random Glucose Refer ence Range is dependent on time and content of last meal. Glucose of more than 200 mg/dL in a nonstressed, ambulatory subject supports the diagnosis of Diabetes Mellitus. Glucose Poct Glucometerson 0 03-06-2023 Glucose [Mass/Vol] 104 mg/dL Normal [facility] Comment on above: Result Comment: [place] om Glucose Reference Range is dependent on time and content of last meal. Glucose of more than 200 mg/dL in a nonstressed, ambulatory subject supports the diagnosis of Diabetes Mellitus. PERFORMED BY: [place] [address] PATHOLOGIST CRAFT RECRUITER RAQUEL LOPEZ M.D. Performed By: #### B CIGARETTE MACHIN[employer] MECHANIC, BMP, PT, PTT, HS TROP, CBC, TSH3, CK #### [address] Glucose mean value [Mass/vol ume] in Blood Estimated from glycated hemoglobinOrdered By: Jemal Jones on 03-06-2023 Average glucose Estimated from glycated hemoglobin (Bld) [Mass/Vol] 120 mg/dL [facility] Hemoglobin A1c percentageOrd ered By: Jemal Jones on 03-06-2023 HbA1c (Bld) [Mass fraction] 5.8 % 4.3-5.6 [facility] Comment on above: Increased risk for d iabetes: 5.7 - 6.4diabetes: >6.4glycemic control for adults with diabetes: <7.0 Lipid Panelon 03-06-2023 Cholesterol [Mass/Vol] 88 mg/dL Low 140-200 [facility] Comment on above: Result Comment: Chol less than 200 mg/dl low risk Chol 201-239 mg/dl borderline risk Chol 240 mg/dl and greater high risk Performed By: #### B [employer]IGARET[employer] MACH[employer] MECHANIC, BMP, PT, PTT, HS TROP, CBC, TSH3, CK #### [facility] [address] Cholesterol in HDL [Mass/Vol] 42 mg/dL Normal 23-92 [facility] Comment on above: Result Comment: HDL CHOL ATP-III CLASSIFICATION Cardiovascular Risk HDL > or equal to 60 mg/dL LOW HDL < 40 mg/dL HIGH Performed By: #### B CIGARETTE MACHIN[employer] MECHANIC, BMP, PT, PTT, HS TROP, CBC, TSH3, CK #### [facility] [address] Cholesterol.total/Chol esterol in HDL [Mass ratio] 2.1 {ratio} Normal <5.0 [facility] Comment on above: Performed By: #### B CIGARETTE MACH[employer] MECHANIC, BMP, PT, PTT, HS TROP, CBC, TSH3, CK #### [facility] [address] LDL Cholesterol,Calculated 29 mg/dL Normal 0-100 [facility] Comment on above: Result Comment: LDL ATP III CLASSIFICATION LDL less than 100 mg/dL Optimal LDL 100-129 mg/dL Near or above optimal LDL 130-159 mg/dL Borderline high LDL 160-189 mg/dL High LDL greater than 189 mg/dL Very high Performed By: #### B CIGARETTE MACHIN[employer] MECHANIC, BMP, PT, PTT, HS TROP, CBC, TSH3, CK #### [facility] [address] Triglyceride w/Reflex 84 mg/dL Normal 0-149 [facility] Comment on above: Result Comment: TRIG ATP III CLASSIFICATION TRIG less than 150 mg/dL Normal TRIG 150-199 mg/dL Borderline high TRIG 200-500 mg/dL High TRIG greater than 500 mg/dL Very high Standard traceable to the Center for Disease Conrtrol and Prevention (CDC) test method. Performed By: #### B CIGARETTE MACHIN[employer] MECHANIC, BMP, PT, PTT, HS TROP, CBC, TSH3, CK #### [facility] [address] VLDL CHOLESTEROL 16 mg/dL Normal [facility] Comment on above: Performed By: #### B CIGARETTE MACHIN[employer] MECHANIC, BMP, PT, PTT, HS TROP, CBC, TSH3, CK #### [facility] [address] Magnesiumon 03-06-2023 Magnesium [Mass/Vol] 1.4 mg/dL Low 1.9-2.7 [facility] Comment on above: Performed By: #### B CIGARETTE MACHINES MECHANIC, BMP, PT, PTT, HS TROP, CBC, TSH3, CK #### [facility] [address] Protein [Mass/volume] in Ser um or PlasmaOrdered By: Jemal Jones on 03-06-2023 Protein [Mass/Vol] 6.6 g/dL 6.4-8.9 [facility] Serum or plasma albumin/glob ulin mass ratioOrdered By: Jemal Jones on 03-06-2023 Albumin/Globulin [Mass ratio] 1.9 {ratio} [facility] Serum or plasma high density lipoprotein (HDL) cholesterol measurementOrdered By: Jemal Jones on 03-06-2023 Cholesterol in HDL [Mass/Vol] 42 mg/dL 23-92 [facility] Comment on above: HDL CHOL ATP-III CLA SSIFICATION Cardiovascular RiskHDL > or equal to 60 mg/dL LOWHDL < 40 mg/dL HIGH Serum or plasma total choles terol/high density lipoprotein (HDL) cholesterol mass ratOrdered By: Jemal Jones on 03-06-2023 Cholesterol.total/Chol esterol in HDL [Mass ratio] 2.1 {ratio} <5.0 [facility] Thyroxine (T4) free [Mass/vo lume] in Serum or PlasmaOrdered By: Jemal Jones on 03-06-2023 Free T4 [Mass/Vol] 1.01 ng/dL 0.61-1.12 [facility] Triglyceride [Mass/volume] i n Serum or PlasmaOrdered By: Jemal Jones on 03-06-2023 Triglyceride [Mass/Vol] 84 mg/dL 0-149 [facility] Comment on above: TRIG ATP III CLASSIF ICATIONTRIG less than 150 mg/dL NormalTRIG 150-199 mg/dL Borderline highTRIG 200-500 mg/dL High TRIG greater than 500 mg/dL Very highStandard traceable to the Center for Disease Conrtrol and Prevention (CDC) test method. Triiodothyronine (T3) Totalo n 03-06-2023 Triiodothyronine (T3) Total 1.29 ng/mL Normal 0.87-1.78 [facility] Comment on above: Result Comment: PERF ORMED BY: [place] [address] PATHOLOGIST CRAFT RECRUITER RAQUEL LOPEZ M.D. Performed By: #### B CIGARETTE MACHINES MECHANIC, BMP, PT, PTT, HS TROP, CBC, TSH3, CK #### [address] Triiodothyronine (T3) [Mass/ volume] in Serum or PlasmaOrdered By: Jemal Jones on 03-06-2023 T3 [Mass/Vol] 1.29 ng/mL 0.87-1.78 [facility] US carotid doppler BIon 02-11 US carotid doppler BI [facility] [address] [place] [address] [place] [address] Ultrasound Report Signed Patient: Steven Harding MR#: [id number] 1 : 1940 Acct:[id number] Age/Sex: 83 / F ADM Date: 03/05/23 Loc: Room: [address] [place] [address] Type: ADM INOo Attending Dr: Chuck Chacon [...] MD 03/06/23 1419 Signed By: 03/06/23 1421 [facility] Activated partial thrombopla stin time (aPTT) in platelet poor plasma by coagulation aOrdered By: Monique Tierney on 03-05-2023 aPTT Coag (PPP) [Time] 25.4 s 25.1-36.5 [facility] Comment on above: A hematocrit value g reater than 55% may lead to inaccurate results in coagulation testing. Patients having hematocrit values >55% require a special collection tube for coagulation studies. Please contact the laboratory at [phone] for redraw instructions. Automated epithelial cells c ount in urine sediment (number/area)Ordered By: Jemal Gonzalezomar on 03-05-2023 Epithelial cells Auto (Urine sed) [#/Area] 3-4 [HPF] 0-2 [facility] Automated erythrocytes count in urine sediment (number/area)Ordered By: [place] Carlosomar on 03-05-2023 RBC Auto (Urine sed) [#/Area] None seen [HPF] 0-4 [facility] Automated leukocytes count i n urine sediment (number/area)Ordered By: [place] Carlosomar on 03-05-2023 WBC Auto (Urine sed) [#/Area] 3-4 [HPF] 0-4 [facility] Automated urine hyaline cast s count (number/volume)Ordered By: [place] Carlosomar on 03-05-2023 Hyaline casts Auto (U) [#/Vol] None seen [LPF] 0-1 [facility] B-Type Natriuretic Peptideon 03-05-2023 Natriuretic peptide B (Bld) [Mass/Vol] 42.0 pg/mL Normal 5-100 [facility] Comment on above: Result Comment: PERF ORMED BY: [place] [address] PATHOLOGIST CRAFT RECRUITER RAQUEL LOPEZ M.D. Performed By: #### B CIGARETTE MACHINES MECHANIC, BMP, PT, PTT, HS TROP, CBC, TSH3, CK #### [address] Basic Metabolic Panelon 02-11 Anion gap [Moles/Vol] 17.1 mmol/L High 6.0-15.0 [facility] Comment on above: Performed By: #### B CIGARETTE MACHINES MECHANIC, BMP, PT, PTT, HS TROP, CBC, TSH3, CK #### [place] [address] [place] Calcium [Mass/Vol] 9.7 mg/dL Normal 8.6-10.3 [facility] Comment on above: Performed By: #### B CIGARETTE MACHINES MECHANIC, BMP, PT, PTT, HS TROP, CBC, TSH3, CK #### [facility] [address] [place] [address] [place] Chloride [Moles/Vol] 93 mmol/L Low 98-107 [facility] Comment on above: Performed By: #### B CIGARETTE MACHINES MECHANIC, BMP, PT, PTT, HS TROP, CBC, TSH3, CK #### [facility] [address] CO2 [Moles/Vol] 19.4 mmol/L Low 21.0-31.0 [facility] Comment on above: Performed By: #### B CIGARETTE MACHINES MECHANIC, BMP, PT, PTT, HS TROP, CBC, TSH3, CK #### [facility] [address] Creatinine [Mass/Vol] 0.84 mg/dL Normal 0.60-1.20 [facility] Comment on above: Performed By: #### B CIGARETTE MACHINES MECHANIC, BMP, PT, PTT, HS TROP, CBC, TSH3, CK #### [facility] [address] Creatinine Clr Calc Pharmacy 46.72 [facility] Comment on above: Performed By: #### B CIGARETTE MACHINES MECHANIC, BMP, PT, PTT, HS TROP, CBC, TSH3, CK #### [facility] [address] GFR/1.73 sq M.predicted MDRD (S/P/Bld) [Vol rate/Area] mL/min/{1.73_m2} [facility] Comment on above: Performed By: #### B CIGARETTE MACHINES MECHANIC, BMP, PT, PTT, HS TROP, CBC, TSH3, CK #### [facility] [address] Glucose [Mass/Vol] 85 mg/dL Normal 70-100 [facility] Comment on above: Result Comment: [place] Glucose Reference Range is dependent on time and content of last meal. Glucose of more than 200 mg/dL in a nonstressed, ambulatory subject supports the diagnosis of Diabetes Mellitus. ADA recommended reference range Performed By: #### B CIGARETTE MACHINES MECHANIC, BMP, PT, PTT, HS TROP, CBC, TSH3, CK #### [facility] [address] Potassium [Moles/Vol] 4.5 mmol/L Normal 3.5-5.1 [facility] Comment on above: Performed By: #### B CIGARETTE MACHINES MECHANIC, BMP, PT, PTT, HS TROP, CBC, TSH3, CK #### [facility] [address] Sodium [Moles/Vol] 125 mmol/L Low 136-145 [facility] Comment on above: Performed By: #### B CIGARETTE MACHINES MECHANIC, BMP, PT, PTT, HS TROP, CBC, TSH3, CK #### [facility] [address] Urea nitrogen [Mass/Vol] 17 mg/dL Normal 7-25 [facility] Comment on above: Performed By: #### B CIGARETTE MACHINES MECHANIC, BMP, PT, PTT, HS TROP, CBC, TSH3, CK #### [address] Basophils Auto (Bld) [#/Vol] Ordered By: Monique Tierney on 03-05-2023 Basophils (Bld) [#/Vol] 0.1 10*3/uL 0.0-0.2 [facility] Basophils/100 WBC Auto (Bld) Ordered By: Monique Tierney on 03-05-2023 Basophils/100 WBC (Bld) 0.5 % . [facility] Bilirubin Test strip Ql (U)O rdered By: Jemal Jones on 03-05-2023 Bilirubin Ql (U) Negative Negative [facility] CT angio neckon 03-05-2023 CT angio neck [facility] [place] [address] [place] [address] CT Scan Report Signed Patient: Steven Harding MR#: [id number] 1 : 1940 Acct:[id number] Age/Sex: 83 / F ADM Date: 03/05/23 Loc: ER Room: Type: [facility] ER Attending Dr: Copies to: Monique Tierney MD Ordering Provider: Monique Tierney MD Date of Service: 03/05/23 CT/CT angio neck: episodic dizziness, episode 2 wks ago face tinglin ([id number]) CT/CT angio head: episodic dizziness, episode 2 [...] Bethel Snyder M.D.03/05/2023 7:34 PM Dictation Location: [place] [address] Transcribed By: [facility] 03/05/231933 Dictated By: Bethel Snyder DO 03/05/231928 Signed By: 03/05/231933 [facility] CT head/brain wo tea 03-05 CT head/brain [place] [address] CT Scan Report Signed Patient: Steven Harding MR#: [id number] 1 : 1940 Acct:[id number] Age/Sex: 83 / F ADM Date: 03/05/23 Loc: ER Room: Type: REG ER Attending Dr: Copies to: Monique Tierney [...] Bethel Snyder M.D.03/05/2023 7:29 PM Dictation Location: [place] [address] Transcribed By: [facility] 03/05/231928 Dictated By: Bethel Snyder DO 03/05/231927 Signed By: 03/05/231928 Normal [facility] Calcium [Mass/volume] in Ser um or PlasmaOrdered By: Monique Tierney on 03-05-2023 Calcium [Mass/Vol] 9.7 mg/dL 8.6-10.3 [facility] Carbon dioxide, total [Moles /volume] in Serum or PlasmaOrdered By: Monique Tierney on 03-05-2023 CO2 [Moles/Vol] 19.4 mmol/L 21.0-31.0 [facility] Chloride [Moles/volume] in S yamilex or PlasmaOrdered By: Monique Tierney on 03-05-2023 Chloride [Moles/Vol] 93 mmol/L 98-107 [facility] Color Auto (U)Ordered By: Sukhi Jones on 03-05-2023 Color (U) Yellow Yellow [facility] Complete Blood Count Auto Di ffon 03-05-2023 Basophils (Bld) [#/Vol] 0.1 10*3/uL Normal 0.0-0.2 [facility] Comment on above: Result Comment: PERF ORMED BY: [place] [address] PATHOLOGIST CRAFT RECRUITER RAQUEL LOPEZ M.D. Performed By: #### B CIGARETTE MACHINES MECHANIC, BMP, PT, PTT, HS TROP, CBC, TSH3, CK #### [address] Basophils/100 WBC (Bld) 0.5 % Normal . [facility] Comment on above: Performed By: #### B CIGARETTE MACHINES MECHANIC, BMP, PT, PTT, HS TROP, CBC, TSH3, CK #### [address] Eosinophils (Bld) [#/Vol] 0.3 10*3/uL Normal 0.0-0.45 [facility] Comment on above: Performed By: #### B CIGARETTE MACHINES MECHANIC, BMP, PT, PTT, HS TROP, CBC, TSH3, CK #### [address] Eosinophils/100 WBC (Bld) 2.8 % Normal . [facility] Comment on above: Performed By: #### B CIGARETTE MACHINES MECHANIC, BMP, PT, PTT, HS TROP, CBC, TSH3, CK #### [address] Erythrocyte distribution width (RBC) [Ratio] 12.8 % Normal 11.9-15.3 [facility] Comment on above: Performed By: #### B CIGARETTE MACHINES MECHANIC, BMP, PT, PTT, HS TROP, CBC, TSH3, CK #### [address] Hematocrit (Bld) [Volume fraction] 39.9 % Normal 34.0-46.4 [facility] Comment on above: Performed By: #### B CIGARETTE MACHINES MECHANIC, BMP, PT, PTT, HS TROP, CBC, TSH3, CK #### [address] Hemoglobin (Bld) [Mass/Vol] 13.6 g/dL Normal 11.8-15.4 [facility] Comment on above: Performed By: #### B CIGARETTE MACHINES MECHANIC, BMP, PT, PTT, HS TROP, CBC, TSH3, CK #### [address] Lymphocytes (Bld) [#/Vol] 1.7 10*3/uL Normal 1.00-4.8 [facility] Comment on above: Performed By: #### B CIGARETTE MACHINES MECHANIC, BMP, PT, PTT, HS TROP, CBC, TSH3, CK #### [address] Lymphocytes/100 WBC (Bld) 14.7 % Normal . [facility] Comment on above: Performed By: #### B CIGARETTE MACHINES MECHANIC, BMP, PT, PTT, HS TROP, CBC, TSH3, CK #### [address] MCH (RBC) [Entitic mass] 31.3 pg Normal 24.7-34.3 [facility] Comment on above: Performed By: #### B CIGARETTE MACHINES MECHANIC, BMP, PT, PTT, HS TROP, CBC, TSH3, CK #### [address] MCV (RBC) [Entitic vol] 91.9 fL Normal 80-100 [facility] Comment on above: Performed By: #### B CIGARETTE MACHINES MECHANIC, BMP, PT, PTT, HS TROP, CBC, TSH3, CK #### [address] Mean Corpuscular HGB Conc 34.0 g/dL Normal 32.0-35.0 [facility] Comment on above: Performed By: #### B CIGARETTE MACHINES MECHANIC, BMP, PT, PTT, HS TROP, CBC, TSH3, CK #### [address] Monocytes (Bld) [#/Vol] 0.6 10*3/uL Normal 0.0-0.8 [facility] Comment on above: Performed By: #### B CIGARETTE MACHINES MECHANIC, BMP, PT, PTT, HS TROP, CBC, TSH3, CK #### [facility] [address] [place] [address] [place] Monocytes/100 WBC (Bld) 18.39 % Normal 0.00-20.00 [facility] Comment on above: Performed By: #### B CIGARETTE MACHINES MECHANIC, BMP, PT, PTT, HS TROP, CBC, TSH3, CK #### [place] [address] [place] Monocytes/100 WBC (Bld) 5.4 % Normal . [facility] Comment on above: Performed By: #### B CIGARETTE MACHINES MECHANIC, BMP, PT, PTT, HS TROP, CBC, TSH3, CK #### [address] Neutrophils (Bld) [#/Vol] 8.7 10*3/uL High 1.8-7.7 [facility] Comment on above: Performed By: #### B CIGARETTE MACHINES MECHANIC, BMP, PT, PTT, HS TROP, CBC, TSH3, CK #### [address] Neutrophils/100 WBC (Bld) 76.6 % Normal . [facility] Comment on above: Performed By: #### B CIGARETTE MACHINES MECHANIC, BMP, PT, PTT, HS TROP, CBC, TSH3, CK #### [address] NRBC% 0.1 /100{WBC} Normal 0-0.5 [facility] Comment on above: Performed By: #### B CIGARETTE MACHINES MECHANIC, BMP, PT, PTT, HS TROP, CBC, TSH3, CK #### [address] Platelet mean volume (Bld) [Entitic vol] 7.5 fL Normal 6.3-10.7 [facility] Comment on above: Performed By: #### B CIGARETTE MACHINES MECHANIC, BMP, PT, PTT, HS TROP, CBC, TSH3, CK #### [place] [address] [place] Platelets (Bld) [#/Vol] 285 10*3/uL Normal 150-450 [facility] Comment on above: Performed By: #### B CIGARETTE MACHINES MECHANIC, BMP, PT, PTT, HS TROP, CBC, TSH3, CK #### [address] RBC (Bld) [#/Vol] 4.34 10*6/uL Normal 3.60-5.00 [facility] Comment on above: Performed By: #### B CIGARETTE MACHINES MECHANIC, BMP, PT, PTT, HS TROP, CBC, TSH3, CK #### [facility] [address] WBC (Bld) [#/Vol] 11.4 10*3/uL Normal 3.8-11.6 [facility] Comment on above: Performed By: #### B CIGARETTE MACHINES MECHANIC, BMP, PT, PTT, HS TROP, CBC, TSH3, CK #### [address] Creatine Kinaseon 03-05-2023 CK [Catalytic activity/Vol] 18 U/L Low [facility] Comment on above: Performed By: #### B CIGARETTE MACHINES MECHANIC, BMP, PT, PTT, HS TROP, CBC, TSH3, CK #### [address] Creatine kinase [Enzymatic a ctivity/volume] in Serum or PlasmaOrdered By: Monique Tierney on 03-05-2023 CK [Catalytic activity/Vol] 18 U/L [facility] Creatinine [Mass/volume] in Serum or PlasmaOrdered By: Monique Tierney on 03-05-2023 Creatinine [Mass/Vol] 0.84 mg/dL 0.60-1.20 [facility] ECG 12 lead ECGon 03-05-2023 ECG 12 lead ECG [facility] [place] [address] [place] [address] Electrocardiograph Report Signed Patient: Steven Harding MR#: [id number] 1 : 1940 Acct:[id number] Age/Sex: 83 / F ADM Date: 03/05/23 Loc: Room: [address] [place] [address] Type: ADM INOo Attending Dr: Chuck Chacon [...] fascicular block Confirmed by Hoang Mancia DO ([id number]) on 03/06/2023 8:08:36 PM Referred By: Electronically Signed By:Hoang Mancia DO Transcribed By: MUS Signed By Hoang Mancia DO 2007 Normal [facility] Eosinophils Auto (Bld) [#/Vo l]Ordered By: Monique Tierney on 03-05-2023 Eosinophils (Bld) [#/Vol] 0.3 10*3/uL 0.0-0.45 [facility] Eosinophils/100 WBC Auto (Bl d)Ordered By: Monique Tierney on 03-05-2023 Eosinophils/100 WBC (Bld) 2.8 % . [facility] Erythrocyte distribution wid th Auto (RBC) [Ratio]Ordered By: Monique Tierney on 03-05-2023 Erythrocyte distribution width (RBC) [Ratio] 12.8 % 11.9-15.3 [facility] Glucose [Mass/volume] in Ser um or PlasmaOrdered By: Monique Tierney on 03-05-2023 Glucose [Mass/Vol] 85 mg/dL 70-100 [facility] Comment on above: ADA recommended refe rence rangeRandom Glucose Reference Range is dependent on time and content of last meal. Glucose of more than 200 mg/dL in a nonstressed, ambulatory subject supports the diagnosis of Diabetes Mellitus. Hematocrit Auto (Bld) [Volum e fraction]Ordered By: Monique Tierney on 03-05-2023 Hematocrit (Bld) [Volume fraction] 39.9 % 34.0-46.4 [facility] Hemoglobin [Mass/volume] in BloodOrdered By: Monique Tierney on 03-05-2023 Hemoglobin (Bld) [Mass/Vol] 13.6 g/dL 11.8-15.4 [facility] INR in Platelet poor plasma by Coagulation assayOrdered By: Monique Tierney on 03-05-2023 INR Coag (PPP) [Relative time] 0.9 {INR} [facility] Comment on above: INR Therapeutic Rang [...] on 03-05-2023 Ketones (U) [Mass/Vol] Trace Negative Fi [facility] Leukocytes [#/volume] correc jazmyne for nucleated erythrocytes in Blood by Automated counOrdered By: Monique Tierney on 03-05-2023 WBC corrected for nucl RBC Auto (Bld) [#/Vol] 11.4 10*3/uL 3.8-11.6 [facility] Lymphocytes Auto (Bld) [#/Vo l]Ordered By: Monique Tierney on 03-05-2023 Lymphocytes (Bld) [#/Vol] 1.7 10*3/uL 1.00-4.8 [facility] Lymphocytes/100 WBC Auto (Bl d)Ordered By: Monique Tierney on 03-05-2023 Lymphocytes/100 WBC (Bld) 14.7 % . [facility] MCH Auto (RBC) [Entitic mass ]Ordered By: Monique Tierney on 03-05-2023 MCH (RBC) [Entitic mass] 31.3 pg 24.7-34.3 [facility] MCHC Auto (RBC) [Mass/Vol]Or dered By: Monique Tierney on 03-05-2023 MCHC (RBC) [Mass/Vol] 34.0 g/dL 32.0-35.0 [facility] MCV Auto (RBC) [Entitic vol] Ordered By: Monique Tierney on 03-05-2023 MCV (RBC) [Entitic vol] 91.9 fL 80-100 [facility] Monocyte distribution width [Entitic volume] in Blood by AutomatedOrdered By: Monique Tierney on 03-05-2023 Monocyte distribution width Auto (Bld) [Entitic vol] 18.39 % 0.00-20.00 [facility] Monocytes Auto (Bld) [#/Vol] Ordered By: Monique Tierney on 03-05-2023 Monocytes (Bld) [#/Vol] 0.6 10*3/uL 0.0-0.8 [facility] Monocytes/100 WBC Auto (Bld) Ordered By: Monique Tierney on 03-05-2023 Monocytes/100 WBC (Bld) 5.4 % . [facility] Natriuretic peptide B [Mass/ Vol]Ordered By: Monique Tierney on 03-05-2023 Natriuretic peptide B (Bld) [Mass/Vol] 42.0 pg/mL 5-100 [facility] Neutrophils Auto (Bld) [#/Vo l]Ordered By: Monique Tierney on 03-05-2023 Neutrophils (Bld) [#/Vol] 8.7 10*3/uL 1.8-7.7 [facility] Neutrophils/100 WBC Auto (Bl d)Ordered By: Monique Tierney on 03-05-2023 Neutrophils/100 WBC (Bld) 76.6 % . [facility] Nitrite Test strip Ql (U)Ord ered By: Jemal Joens on 03-05-2023 Nitrite Ql (U) Negative Negative [facility] No Panel InformationOrdered By: Monique Tierney on 03-05-2023 Estimated GFR (CKD-EPI) > 60.0 mL/Min [facility] Creatinine Clearance (Chem 46.72 [facility] Nucleated erythrocytes [Pres ence] in Blood by Automated countOrdered By: Monique Tierney on 03-05-2023 Nucleated RBC Auto Ql (Bld) 0.1 /100{WBC} 0-0.5 [facility] Partial Thromboplastin Timeo n 03-05-2023 aPTT Coag (Bld) [Time] 25.4 s Normal 25.1-36.5 [facility] Comment on above: Result Comment: A he matocrit value greater than 55% may lead to inaccurate results in coagulation testing. Patients having hematocrit values >55% require a special collection tube for coagulation studies. Please contact the laboratory at [phone] for redraw instructions. PERFORMED BY: [place] [address] PATHOLOGIST CRAFT RECRUITER RAQUEL LOPEZ M.D. Performed By: #### B [employer]IGARET[employer]ACH[employer] MECHANIC, BMP, PT, PTT, HS TROP, CBC, TSH3, CK #### [facility] [address] [place], [place] [id number] [facility] Platelet mean volume Auto (B ld) [Entitic vol]Ordered By: Monique Tierney on 03-05-2023 Platelet mean volume (Bld) [Entitic vol] 7.5 fL 6.3-10.7 [facility] Platelets Auto (Bld) [#/Vol] Ordered By: Monique Tierney on 03-05-2023 Platelets (Bld) [#/Vol] 285 10*3/uL 150-450 [facility] Potassium [Moles/volume] in Serum or PlasmaOrdered By: Monique Tierney on 03-05-2023 Potassium [Moles/Vol] 4.5 mmol/L 3.5-5.1 [facility] Protein Auto test strip (U) [Mass/Vol]Ordered By: Jemal Jones on 03-05-2023 Protein (U) [Mass/Vol] Negative Negative Fi [facility] Prothrombin Time INRon 03-05 INR Coag (PPP) [Relative time] 0.9 {INR} Normal [facility] Comment on above: Result Comment: INR [...] 3 - 4.5 Performed By: #### B [employer]IGARET[employer] MACH[employer] MECHANIC, BMP, PT, PTT, HS TROP, CBC, TSH3, CK #### [facility] [address] [place], [place] [id number] [facility] PT Coag (PPP) [Time] 10.9 s Normal 9.0-12.9 [facility] Comment on above: Result Comment: A he matocrit value greater than 55% may lead to inaccurate results in coagulation testing. Patients having hematocrit values >55% require a special collection tube for coagulation studies. Please contact the laboratory at [phone] for redraw instructions. Performed By: #### B [employer]IGARET[employer] MACHIN[employer] MECHANIC, BMP, PT, PTT, HS TROP, CBC, TSH3, CK #### [facility] [address] [place] [address] [facility] Prothrombin time (PT)Ordered By: Monique Tierney on 03-05-2023 PT Coag (PPP) [Time] 10.9 s 9.0-12.9 [facility] Comment on above: A hematocrit value g reater than 55% may lead to inaccurate results in coagulation testing. Patients having hematocrit values >55% require a special collection tube for coagulation studies. Please contact the laboratory at [phone] for redraw instructions. RBC Auto (Bld) [#/Vol]Ordere d By: Monique Tierney on 03-05-2023 RBC (Bld) [#/Vol] 4.34 10*6/uL 3.60-5.00 [facility] Serum or plasma anion gap de terminationOrdered By: Monique Tierney on 03-05-2023 Anion gap [Moles/Vol] 17.1 mmol/L 6.0-15.0 [facility] Sodium [Moles/volume] in Ser um or PlasmaOrdered By: Monique Tierney on 03-05-2023 Sodium [Moles/Vol] 125 mmol/L 136-145 [facility] Specific gravity Auto test s trip (U) [Rel density]Ordered By: Jemal Jones on 03-05-2023 Specific gravity (U) [Rel density] 1.015 1.001-1.03 0 [facility] Thyroid Stimulating Hormoneo n 03-05-2023 TSH Qn 0.01 m[IU]/L Low 0.45-5.33 [facility] Comment on above: Result Comment: PERF ORMED BY: [facility] [address] [place] [address] PATHOLOGIST CRAFT RECRUITER RAQUEL LOPEZ M.D. Performed By: #### B [employer]IGARET[employer] MACHIN[employer] MECHANIC, BMP, PT, PTT, HS TROP, CBC, TSH3, CK #### [facility] [address] Thyrotropin [Units/volume] i n Serum or PlasmaOrdered By: Monique Tierney on 03-05-2023 TSH Qn 0.01 m[IU]/L 0.45-5.33 [facility] Troponin I High Sensitivityo n 03-05-2023 Troponin I High Sensitivity 6.3 pg/mL Normal 0.0-15.0 [facility] Comment on above: Result Comment: PERF ORMED BY: [place] [address] PATHOLOGIST CRAFT RECRUITER RAQUEL LOPEZ M.D. Performed By: #### B [employer]IGARET[employer] MACHIN[employer] MECHANIC, BMP, PT, PTT, HS TROP, CBC, TSH3, CK #### [facility] [address] Troponin I.cardiac [Mass/vol ume] in Serum or Plasma by Detection limit <= 0.01 ng/Ordered By: Monique Tierney on 03-05-2023 Troponin I.cardiac DL <= 0.01 ng/mL [Mass/Vol] 6.3 pg/mL 0.0-15.0 [facility] Urea nitrogen [Mass/volume] in Serum or PlasmaOrdered By: Monique Tierney on 03-05-2023 Urea nitrogen [Mass/Vol] 17 mg/dL 7-25 [facility] Urine bacteria detection by automated methodOrdered By: Jemal Jones on 03-05-2023 Bacteria Auto Ql (U) 1+ None Seen [facility] Urine clarity by refractomet ry automatedOrdered By: Jemal Jones on 03-05-2023 Clarity Refractometry automated (U) Clear Clear [facility] Urine glucose measurement by automated test strip (mass/volume)Ordered By: Jemal Jones on 03-05-2023 Glucose Auto test strip (U) [Mass/Vol] Normal mg/dL Normal [facility] Urine hemoglobin detection b y automated test stripOrdered By: Jemal Jones on 03-05-2023 Hemoglobin Auto test strip Ql (U) Negative Negative [facility] Urine leukocyte esterase det ection by automated test stripOrdered By: Jemal Jones on 03-05-2023 Leukocyte esterase Auto test strip Ql (U) 1+ Negative [facility] Urine sediment renal epithel ial cell count by microscopy (number/high power field)Ordered By: Jemal Jones on 03-05-2023 Epithelial cells.renal LM.HPF (Urine sed) [#/Area] Rare [HPF] 0-1 [facility] Urobilinogen Auto test strip (U) [Mass/Vol]Ordered By: Jemal Jones on 03-05-2023 Urobilinogen (U) [Mass/Vol] Normal mg/dL Normal [facility] WBC Auto (Bld) [#/Vol]Ordere d By: Monique Tierney on 03-05-2023 WBC (Bld) [#/Vol] 11.4 10*3/uL 3.8-11.6 [facility] XR chest 2V*on 03-05-2023 XR chest 2V* [facility] [place] [address] [place] [address] XRay Report Signed Patient: Steven Harding MR#: [id number] 1 : 1940 Acct:[id number] Age/Sex: 83 / F ADM Date: 03/05/23 Loc: ER Room: Type: [facility] ER Attending Dr: Copies to: Monique Tierney [...] Bethel Snyder M.D.03/05/2023 7:27 PM Dictation Location: [facility] Transcribed By: [facility] 03/05/231926 Dictated By: Bethel Snyder DO 03/05/231925 Signed By: 03/05/231926 Normal [facility] pH Auto test strip (U)Ordere d By: Jemal Jones on 03-05-2023 pH (U) 6.0 [pH] 5.0-9.0 [facility] Office Visit (Cardiology)on 02-16-2023 Follow-up visit [...] Weight Tips; Status:Complete - Retrospective Authorization; Done: [id number] Some eating tips that can help you lose weight.; Status:Complete - Retrospective Authorization; Done: [id number] PMH: Coronary artery disease involving [place] coronary artery of [place] heart without angina pectoris, Mixed hyperlipidemia Renew: Atorvastatin Calcium 80 MG Oral Tablet; TAKE 1 TABLET AT BEDTIME SocHx: Former smoker Tobacco Use Screening; Status:Complete; Done: [id number] Status post percutaneous transluminal coronary angioplasty, Two-vessel [...] FOR CHEST PAIN.CALL 911 IF PAIN PERSISTS. CIGAR[employer] MACHIN[employer] MECHANIC Thyroid 60 MG Oral TabletTAKE 1 TABLET [...] No alcoho (more content not included)... Normal [facility] Tobacco Screening.on 023 Fall risk assessment a) No falls within the last year [facility] [employer] 250 DO Work Phone: Tobacco use status CPHS b) No [facility] [employer] 250 DO Work Phone: REVERSE T3on 10-17-2022 Reverse T3, Serum 18.8 ng/dL Normal 9.2-24.1 [facility] Comment on above: Performed By: #### R EVRT3 #### [facility] [address] [address] [address] Ellie Smith T3, TOTAL (TRIIODOTHYRONINE) on 10-06-2022 T3, TOTAL 137 ng/dL Normal 71-180 [facility] Comment on above: Performed By: #### P OCGLUC #### [facility] [address] [address] [address] Ellie Smtih FREE T3on 10-05-2022 FREE T3 3.03 pg/mlL Normal 2.18-3.98 [facility] Comment on above: Performed By: #### L ACT #### [facility] [address] [address] [address] Ellie Smith FREE T4on 10-05-2022 Free T4 [Mass/Vol] 1.02 ng/dL Normal 0.76-1.46 [facility] Comment on above: Performed By: #### F T4 #### [facility] [address] [place] [address] Dr. Ellie Smith TSHon 10-05-2022 TSH 0.032 uIU/mL Critically low 0.358-3.74 0 [facility] Comment on above: Performed By: #### L ACT #### [facility] [address] [place] [address] Dr. Ellie Smith Office Visit (Cardiology)on 08-24-2022 [...] Done: 24Aug2022 PMH: Coronary artery disease involving [place] coronary artery of [place] heart without angina pectoris Renew: Aspirin EC 81 MG Oral Tablet Delayed Release; TAKE 1 TABLET DAILY Renew: Clopidogrel Bisulfate 75 MG Oral Tablet; TAKE 1 TABLET BY MOUTH DAILY PMH: Coronary artery disease involving [place] coronary artery of [place] heart without angina pectoris, Hypertension, benign Renew: Losartan Potassium 100 MG Oral Tablet; TAKE 1 TABLET DAILY PMH: Coronary artery disease involving [place] coronary artery of [place] heart without angina pectoris, Mixed hyperlipidemia Renew: [...] FOR CHEST PAIN.CALL 911 IF PAIN PERSISTS. CIGARETTE MACHIN[employer] MECHANIC Thyroid 60 MG Oral TabletTAKE 1 TABLET [...] HPI. Respirat (more content not included)... Normal [facility] Tobacco Screening.on 023 Adult depression screening assessment No [facility] [employer] 250 DO Work Phone: Fall risk assessment a) No falls within the last year [facility] [employer] 250 DO Work Phone: Tobacco use status CP b) No [facility] [employer] 250 DO Work Phone: GLYCOHEMOGLOBIN A1Con 2022 ADA RECOMMENDATION SEE BELOW Normal [facility] Comment on above: Result Comment: ADA RECOMMENDED LIMIT 4.0 - 6.0 ADA THERAPEUTIC TARGET < 7.0 ACTION SUGGESTED > 7.0 Performed By: #### A 1C #### [facility] [address] [address] [address] Ellie Smith Glucose [Mass/Vol] 114 mg/dL Normal [facility] Comment on above: Performed By: #### A 1C #### [facility] [address] [address] [address] Ellie Smith HbA1c (Bld) [Mass fraction] 5.6 % Normal 4.5-6.2 [facility] Comment on above: Performed By: #### A 1C #### [facility] [address] [address] [address] Ellie Smith LIPID PROFILEon 08-15-2022 CHOL-HDL RATIO NORM SEE BELOW Normal [facility] Comment on above: Result Comment: 3.3 - 4.4 LOW RISK 4.4 - 7.1 AVERAGE RISK 7.1 - 11.0 MODERATE RISK >11.0 HIGH RISK Performed By: #### R EVRT3 #### [facility] [address] [address] [address] Ellie Smith Cholesterol [Mass/Vol] 116 mg/dL Normal <=[address] [facility] Comment on above: Performed By: #### R EVRT3 #### [facility] [address] [address] [address] Ellie Smith Cholesterol in HDL [Mass/Vol] 60 mg/dL Normal 40-60 [facility] Comment on above: Performed By: #### R EVRT3 #### [facility] [address] [place] [address] Dr. Ellie Smith Cholesterol in LDL [Mass/Vol] 46.0 mg/dL Normal [facility] Comment on above: Performed By: #### R EVRT3 #### [facility] [address] [place] [address] Dr. Ellie Smith Cholesterol.total/Chol esterol in HDL [Mass ratio] 1.9 {ratio} Normal [facility] Comment on above: Performed By: #### R EVRT3 #### [facility] [address] [place] [address] Dr. Ellie Smith HDL NORMAL > or = 60 mg/dl - LO W CARDIOVASCULAR RISK <40 mg/dl - HIGH CARDIOVASCULAR RISK Normal [facility] Comment on above: Performed By: #### R EVRT3 #### [facility] [address] [place] [address] Dr. Ellie Smith LDL CALC NORMAL SEE BELOW Normal [facility] Comment on above: Result Comment: <100 mg/dl OPTIMAL 100 - 129 mg/dl NEAR OR ABOVE OPTIMAL 130 - 159 mg/dl BORDERLINE HIGH 160 - 189 mg/dl HIGH >190 mg/dl VERY HIGH Performed By: #### R EVRT3 #### [facility] [address] [place] [address] Dr. Ellie Smith Triglyceride [Mass/Vol] 50 mg/dL Normal <=150 [facility] Comment on above: Performed By: #### R EVRT3 #### [facility] [address] [address] [address] Ellie Smith VLDL CALC 10.0 mg/dL Normal [facility] Comment on above: Performed By: #### R EVRT3 #### [facility] [address] [place] [address] Dr. Ellie Smith PROF 14(COMP METB)on 023 Albumin [Mass/Vol] 3.9 g/dL Normal 3.4-5.0 [facility] Comment on above: Performed By: #### R EVRT3 #### [facility] [address] [place] [address] Dr. Ellie Smith Albumin/Globulin [Mass ratio] 1.2 {ratio} Normal [facility] Comment on above: Performed By: #### R EVRT3 #### [facility] [address] [place] [address] Dr. Ellie Smith ALP [Catalytic activity/Vol] 56 U/L Normal 46-116 [facility] Comment on above: Performed By: #### R EVRT3 #### [facility] [address] [place] [address] Dr. Ellie Smith ALT [Catalytic activity/Vol] 27 U/L Normal 14-59 [facility] Comment on above: Performed By: #### R EVRT3 #### [facility] [address] [address] [address] Ellie Smith Anion gap [Moles/Vol] 14.1 mmol/L Normal [facility] Comment on above: Performed By: #### R [id number] #### [facility] [address] [address] [address] Ellie Smith AST [Catalytic activity/Vol] 18 U/L Normal 15-37 [facility] Comment on above: Performed By: #### R EVRT3 #### [facility] [address] [place] [address] Dr. Ellie Smith Bilirubin [Mass/Vol] 0.4 mg/dL Normal 0.2-1.0 [facility] Comment on above: Performed By: #### R EVRT3 #### [facility] [address] [address] [address] Ellie Smith Calcium [Mass/Vol] 9.2 mg/dL Normal 8.5-10.1 [facility] Comment on above: Performed By: #### R EVRT3 #### [facility] [address] [address] [address] Ellie Smith Chloride [Moles/Vol] 106 mmol/L Normal 98-107 [facility] Comment on above: Performed By: #### R EVRT3 #### [facility] [address] [address] [address] Ellie Smith CO2 [Moles/Vol] 26.1 mmol/L Normal 21.0-32.0 [facility] Comment on above: Performed By: #### R EVRT3 #### [facility] [address] [place] [address] Dr. Ellie Smith Creatinine [Mass/Vol] 0.68 mg/dL Normal 0.55-1.02 [facility] Comment on above: Performed By: #### R EVRT3 #### [facility] [address] [address] [address] Ellie Smith EGFR-AF CZECH >60 Normal >=60 [facility] Comment on above: Performed By: #### R EVRT3 #### [facility] [address] [address] [address] Ellie Smith EGFR-NON AF CZECH >60 Normal >=60 [facility] Comment on above: Performed By: #### R EVRT3 #### [facility] [address] [address] [address] Ellie Smith Globulin (S) [Mass/Vol] 3.2 g/dL Normal [facility] Comment on above: Performed By: #### R EVRT3 #### [facility] [address] [address] [address] Ellie Smith Glucose [Mass/Vol] 99 mg/dL Normal 74-106 [facility] Comment on above: Performed By: #### R EVRT3 #### [facility] [address] [place] [address] Dr. Ellie Smith Potassium [Moles/Vol] 4.2 mmol/L Normal 3.5-5.1 [facility] Comment on above: Performed By: #### R EVRT3 #### [facility] [address] [place] [address] Dr. Ellie Smith Protein [Mass/Vol] 7.1 g/dL Normal 6.4-8.2 [facility] Comment on above: Performed By: #### R EVRT3 #### [facility] [address] [place] [address] Dr. Ellie Smith Sodium [Moles/Vol] 142 mmol/L Normal 136-145 [facility] Comment on above: Performed By: #### R EVRT3 #### [facility] [address] [place] [address] Dr. Ellie Smith Urea nitrogen [Mass/Vol] 16.0 mg/dL Normal 7.0-18.0 [facility] Comment on above: Performed By: #### R EVRT3 #### [facility] [address] [place] [address] Dr. Ellie Smith Urea nitrogen/Creatinine [Mass ratio] 23.5 mg/mg Normal [facility] Comment on above: Performed By: #### R EVRT3 #### [facility] [address] [place] [address] Dr. Ellie Smith REVERSE T3on 04-15-2022 Reverse T3, Serum 15.4 ng/dL Normal 9.2-24.1 [facility] Comment on above: Result Comment: This test was developed and its performance characteristics determined by [facility]. It has not been cleared or approved by the Food and Drug Administration. Performed By: #### L ACT #### [facility] [address] [place] [address] Dr. Ellie Smith T3, TOTAL (TRIIODOTHYRONINE) on 04-13-2022 T3, TOTAL 144 ng/dL Normal 71-180 [facility] Comment on above: Performed By: #### A 1C #### [facility] [address] [place] [address] Dr. Ellie Smith FREE T3on 04-12-2022 FREE T3 2.93 pg/mlL Normal 2.18-3.98 [facility] Comment on above: Performed By: #### T SH, FT3 #### [facility] [address] [place] [address] Dr. Ellie Smith FREE T4on 04-12-2022 Free T4 [Mass/Vol] 0.89 ng/dL Normal 0.76-1.46 [facility] Comment on above: Performed By: #### R EVRT3 #### [facility] [address] [place] [address] Dr. Ellie Smith TSHon 04-12-2022 TSH 0.116 uIU/mL Critically low 0.358-3.74 0 [facility] Comment on above: Performed By: #### T SH, FT3 #### [facility] [address] [place] [address] Dr. Ellie Smith LIPID PROFILEon 03-29-2022 CHOL-HDL RATIO NORM SEE BELOW Normal [facility] Comment on above: Result Comment: 3.3 - 4.4 LOW RISK 4.4 - 7.1 AVERAGE RISK 7.1 - 11.0 MODERATE RISK >11.0 HIGH RISK Performed By: #### A 1C #### [facility] [address] [place] [address] Dr. Ellie Smith Cholesterol [Mass/Vol] 102 mg/dL Normal <=[address] [facility] Comment on above: Performed By: #### A 1C #### [facility] [address] [place] [address] Dr. Ellie Smith Cholesterol in HDL [Mass/Vol] 56 mg/dL Normal 40-60 [facility] Comment on above: Performed By: #### A 1C #### [facility] [address] [place] [address] Dr. Ellie Smith Cholesterol in LDL [Mass/Vol] 36.8 mg/dL Normal [facility] Comment on above: Performed By: #### A 1C #### [facility] [address] [place] [address] Dr. Ellie Smith Cholesterol.total/Chol esterol in HDL [Mass ratio] 1.8 {ratio} Normal [facility] Comment on above: Performed By: #### A 1C #### [facility] [address] [address] [address] Ellie Smith HDL NORMAL > or = 60 mg/dl - LO W CARDIOVASCULAR RISK <40 mg/dl - HIGH CARDIOVASCULAR RISK Normal [facility] Comment on above: Performed By: #### A 1C #### [facility] [address] [address] [address] Ellie Smith LDL CALC NORMAL SEE BELOW Normal [facility] Comment on above: Result Comment: <100 mg/dl OPTIMAL 100 - 129 mg/dl NEAR OR ABOVE OPTIMAL 130 - 159 mg/dl BORDERLINE HIGH 160 - 189 mg/dl HIGH >190 mg/dl VERY HIGH Performed By: #### A 1C #### [facility] [address] [place] [address] Dr. Ellie Smith Triglyceride [Mass/Vol] 46 mg/dL Normal <=150 [facility] Comment on above: Performed By: #### A 1C #### [facility] [address] [address] [address] Ellie Smith VLDL CALC 9.2 mg/dL Normal [facility] Comment on above: Performed By: #### A 1C #### [facility] [address] [address] [address] Ellie Cardenas 03-29-2022 AST [Catalytic activity/Vol] 17 U/L Normal 15-37 [facility] Comment on above: Performed By: #### A 1C #### [facility] [address] [address] [address] Ellie Smith SGPTon 03-29-2022 ALT [Catalytic activity/Vol] 30 U/L Normal 14-59 [facility] Comment on above: Performed By: #### A 1C #### [facility] [address] [place] [address] Dr. 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 Hooks Jan 18, 2022: dCX [...] Status:Complete; Done: 17Mar2022 Coronary artery disease involving [place] coronary artery of [place] heart without angina pectoris, Echocardiogram abnormal Disability Placard; Status:Complete; Done: [id number] 03:53PM SocHx: Former smoker Tobacco Use Screening; [...] FOR CHES (more content not included)... Normal [employer] Tobacco Screening.on 022 Adult depression screening assessment No [facility] [employer] 600 DO Work Phone: Fall risk assessment a) No falls within the last year [facility] [employer] DO Work Phone: Tobacco use status CP b) No [facility] [employer] 600 DO Work Phone: [phone] PHQ-2 VITALSon 02-15-2022 Adult depression screening assessment Yes [facility] [employer] 250 DO Work Phone: Adult depression screening assessment No [facility] [employer] 250 DO Work Phone: Fall risk assessment a) No falls within the last year [facility] [employer] 250 DO Work Phone: Tobacco use status CP b) No [facility] [employer] 250 DO Work Phone: [phone] PHQ-2 VITALS 0-Not at all [facility] [employer] 250 DO Work Phone: PHQ-2 VITALS 3-Nearly every day [facility] [employer] 250 DO Work Phone: [phone] PHQ-2 VITALS 1-Several days [facility] [employer] 250 DO Work Phone: PHQ-2 VITALS Very Difficult [facility] [employer] 250 DO Work Phone: Activated partial thrombopla stin time (aPTT) in platelet poor plasma by coagulation aOrdered By: Diony Hooks on 02-03-2022 aPTT Coag (PPP) [Time] 31.4 s 25.1-36.5 [facility] Basophils Auto (Bld) [#/Vol] Ordered By: Diony Hooks on 02-03-2022 Basophils (Bld) [#/Vol] 0.1 10*3/uL 0.0-0.2 [facility] Basophils/100 WBC Auto (Bld) Ordered By: Diony Hooks on 02-03-2022 Basophils/100 WBC (Bld) 0.6 % . [facility] Blood hemoglobin measurement (mass/volume)Ordered By: Diony Hooks on 02-03-2022 Hemoglobin (Bld) [Mass/Vol] 14.3 g/dL 11.8-15.4 [facility] Blood leukocytes automated c ount (number/volume)Ordered By: Diony Hooks on 02-03-2022 WBC (Bld) [#/Vol] 12.0 10*3/uL 4.5-11.0 [facility] Eosinophils Auto (Bld) [#/Vo l]Ordered By: Diony Hooks on 02-03-2022 Eosinophils (Bld) [#/Vol] 0.4 10*3/uL 0.0-0.45 [facility] Eosinophils/100 WBC Auto (Bl d)Ordered By: Diony Hooks on 02-03-2022 Eosinophils/100 WBC (Bld) 3.4 % . [facility] Erythrocyte distribution wid th Auto (RBC) [Ratio]Ordered By: Diony Hooks on 02-03-2022 Erythrocyte distribution width (RBC) [Ratio] 14.4 % 11.9-15.3 [facility] Hematocrit Auto (Bld) [Volum e fraction]Ordered By: Diony Hooks on 02-03-2022 Hematocrit (Bld) [Volume fraction] 42.4 % 34.0-46.4 [facility] Laboratory - CoagulationOrde red By: Diony Hooks on 02-03-2022 PT Coag (PPP) [Time] 10.9 s 9.0-12.9 [facility] - Hematology and Cell countsOrdered By: Diony Hooks on 02-03-2022 Nucleated RBC/100 WBC (Bld) [Ratio] 0.0 % 0-0.5 [facility] Lymphocytes Auto (Bld) [#/Vo l]Ordered By: Diony Hooks on 02-03-2022 Lymphocytes (Bld) [#/Vol] 2.1 10*3/uL 1.00-4.8 [facility] Lymphocytes/100 WBC Auto (Bl d)Ordered By: Diony Hooks on 02-03-2022 Lymphocytes/100 WBC (Bld) 17.5 % . [facility] MCH Auto (RBC) [Entitic mass ]Ordered By: Diony Hooks on 02-03-2022 MCH (RBC) [Entitic mass] 31.5 pg 24.7-34.3 [facility] MCHC Auto (RBC) [Mass/Vol]Or dered By: Diony Hooks on 02-03-2022 MCHC (RBC) [Mass/Vol] 33.8 g/dL 32.0-35.0 [facility] MCV Auto (RBC) [Entitic vol] Ordered By: Diony Hooks on 02-03-2022 MCV (RBC) [Entitic vol] 93.2 fL 80-100 [facility] Monocytes Auto (Bld) [#/Vol] Ordered By: Diony Hooks on 02-03-2022 Monocytes (Bld) [#/Vol] 0.5 10*3/uL 0.0-0.8 [facility] Monocytes/100 WBC Auto (Bld) Ordered By: Diony Hooks on 02-03-2022 Monocytes/100 WBC (Bld) 4.4 % . [facility] Neutrophils Auto (Bld) [#/Vo l]Ordered By: Diony Hooks on 02-03-2022 Neutrophils (Bld) [#/Vol] 8.9 10*3/uL 1.8-7.7 [facility] Neutrophils/100 WBC Auto (Bl d)Ordered By: Diony Hooks on 02-03-2022 Neutrophils/100 WBC (Bld) 74.1 % . [facility] Platelet mean volume Auto (B ld) [Entitic vol]Ordered By: Diony Hooks on 02-03-2022 Platelet mean volume (Bld) [Entitic vol] 7.5 fL 6.3-10.7 [facility] Platelet poor plasma interna tional normalized ratio (INR) by coagulation assay (relatOrdered By: Diony Hooks on 02-03-2022 INR Coag (PPP) [Relative time] 1.0 {INR} [facility] Comment on above: INR Therapeutic Rang [...] 02-03-2022 Platelets (Bld) [#/Vol] 337 10*3/uL 150-450 [facility] RBC Auto (Bld) [#/Vol]Ordere d By: Diony Hooks on 02-03-2022 RBC (Bld) [#/Vol] 4.56 10*6/uL 3.60-5.00 [facility] COVID-19 SOFIAOrdered By: St anup Hooks on 02-01-2022 SARS-CoV+SARS-CoV-2 (COVID-19) Ag IA.rapid Ql (Resp) Negative Negative [facility] Comment on above: This is a duplicate [facility] SARS Antigen (JERRY) result to be used for statistical tracking purpose only. Creatinine and Glomerular fi ltration rate.predicted panel (S/P/Bld)Ordered By: Diony Hooks on 02-01-2022 Creatinine [Mass/Vol] 0.85 mg/dL 0.44-1.03 [facility] Estimated glomerular filtrat ion rate (GFR) non- AmericanOrdered By: Diony Hooks on 02-01-2022 GFR/1.73 sq M.predicted among non-blacks MDRD (S/P/Bld) [Vol rate/Area] > 60 mL/Min [facility] No Panel InformationOrdered By: Diony Hooks on 02-01-2022 Estimated GFR () > 60 mL/Min [facility] Comment on above: GFR estimated refere nce range: According to KDOQI guidelines, <60 ml/min/1.73m2 is sufficient to diagnose a patient with chronic kidney disease. Pharmacy Creatinine Clearance (Chem N/A [facility] SARS Antigen (LFIA) [facility] Serum or plasma calcium norma urement (mass/volume)Ordered By: Diony Hooks on 02-01-2022 Calcium [Mass/Vol] 9.7 mg/dL 8.2-10.2 [facility] Serum or plasma chloride tam surement (moles/volume)Ordered By: Diony Hooks on 02-01-2022 Chloride [Moles/Vol] 97 mmol/L 95-114 [facility] Serum or plasma glucose norma urement (mass/volume)Ordered By: Diony Hooks on 02-01-2022 Glucose [Mass/Vol] 86 mg/dL 70-100 [facility] Comment on above: ADA recommended refe rence range Random Glucose Reference Range is dependent on time and content of last meal. Glucose of more than 200 mg/dL in a nonstressed, ambulatory subject supports the diagnosis of Diabetes Mellitus. Serum or plasma potassium me asurement (moles/volume)Ordered By: Diony Hooks on 02-01-2022 Potassium [Moles/Vol] 4.7 mmol/L 3.5-5.1 [facility] Serum or plasma sodium measu rement (moles/volume)Ordered By: Diony Hokos on 02-01-2022 Sodium [Moles/Vol] 132 mmol/L 136-146 [facility] Serum or plasma total carbon dioxide measurement (moles/volume)Ordered By: Diony Hooks on 02-01-2022 CO2 [Moles/Vol] 26.0 mmol/L 22.0-30.0 [facility] Serum or plasma urea nitroge n measurement (mass/volume)Ordered By: Diony Hooks on 02-01-2022 Urea nitrogen [Mass/Vol] 10 mg/dL 03-04 [facility] BNPon 01-28-2022 Natriuretic peptide B (Bld) [Mass/Vol] 945.0 pg/mL Normal <=1,800.0 [facility] Comment on above: Performed By: #### R [id number] #### [facility] [address] [place], [place] [address] Dr. Ellie Smith CARDIAC RAQUEL ADMITon 022 CK [Catalytic activity/Vol] 122 U/L Normal 26-192 [facility] Comment on above: Performed By: #### R [id number] #### [facility] [address] [place] [address] Dr. Ellie Smith CK.MB [Mass/Vol] 0.65 ng/mL Normal <=3.60 [facility] Comment on above: Performed By: #### R [id number] #### [facility] [address] [place] [address] Dr. Ellie Smith HSTROP 63.5 pg/mL Critically high 4.0-51.3 [facility] Comment on above: Result Comment: CUT- OFF POINTS HAVE BEEN ESTABLISHED BASED ON THE FOURTH UNIVERSAL DEFINITIONS OF MYOCARDIAL INFARCTION. THE UPPER REFERENCE LIMIT (URL) OF TROPONIN, DEFINED THE 99TH PERCENTILE OF cTnI DISTRIBUTION IN A REFERENCE POPULATION, HAS BEEN CONFIRMED THE DECISION THRESHOLD FOR [place] DIAGNOSIS. Performed By: #### R [id number] #### [facility] [address] [place] [address] Dr. Ellie Smith MATEO 26 ng/mL Normal 9-82 [facility] Comment on above: Performed By: #### R [id number] #### [facility] [address] [place] [address] Dr. Ellie Smith CBC AUTO DIFFon 01-28-2022 BASO # 0.1 103/ul Normal 0.0-0.1 [facility] Comment on above: Performed By: #### L ACT #### [facility] [address] [place] [address] Dr. Ellie Smith Basophils/100 WBC (Bld) 0.6 % Normal 0.2-2.0 [facility] Comment on above: Performed By: #### L ACT #### [facility] [address] [place] [address] Dr. Ellie Smith EO # 0.4 103/ul Normal 0.0-0.7 [facility] Comment on above: Performed By: #### L ACT #### [facility] [address] [place] [address] Dr. Ellie Smith Eosinophils/100 WBC (Bld) 4.4 % Normal 0.9-7.0 [facility] Comment on above: Performed By: #### L ACT #### [facility] [address] [place] [address] Dr. Ellie Smith Erythrocyte distribution width (RBC) [Ratio] 13.7 % Normal 11.0-15.0 [facility] Comment on above: Performed By: #### L ACT #### [facility] [address] [place] [address] Dr. Ellie Smith Hematocrit (Bld) [Volume fraction] 35.8 % Critically low 36.0-48.0 [facility] Comment on above: Performed By: #### L ACT #### [facility] [address] [place] [address] Dr. Ellie Smith Hemoglobin (Bld) [Mass/Vol] 11.9 g/dL Critically low 12.0-16.0 [facility] Comment on above: Performed By: #### L ACT #### [facility] [address] [place] [address] Dr. Ellie Smith IG # 0.03 10e3/ul Normal 0.00-0.03 [facility] Comment on above: Performed By: #### L ACT #### [facility] [address] [place] [address] Dr. Ellie Smith IG % 0.4 % Normal 0.0-0.5 [facility] Comment on above: Performed By: #### L ACT #### [facility] [address] [place] [address] Dr. Ellie Smith LYMPH # 1.7 103/ul Normal 1.2-3.8 [facility] Comment on above: Performed By: #### L ACT #### [facility] [address] [place] [address] Dr. Ellie Smith Lymphocytes/100 WBC (Bld) 19.6 % Critically low 20.5-60.0 [facility] Comment on above: Performed By: #### L ACT #### [facility] [address] [place] [address] Dr. Ellie Smith MANUAL DIFF REQ NO Normal [facility] Comment on above: Performed By: #### L ACT #### [facility] [address] [place] [address] Dr. Ellie Smith MCH (RBC) [Entitic mass] 31.4 pg Normal 26.7-34.0 [facility] Comment on above: Performed By: #### L ACT #### [facility] [address] [place] [address] Dr. Ellie Smith MCHC (RBC) [Mass/Vol] 33.2 g/dL Normal 29.9-35.2 [facility] Comment on above: Performed By: #### L ACT #### [facility] [address] [place] [address] Dr. Ellie Smith MCV (RBC) [Entitic vol] 94.5 fL Normal 81.0-99.0 [facility] Comment on above: Performed By: #### L ACT #### [facility] [address] [place] [address] Dr. Ellie Smith MONO # 0.5 103/ul Normal 0.3-0.8 [facility] Comment on above: Performed By: #### L ACT #### [facility] [address] [place] [address] Dr. Ellie Smith Monocytes/100 WBC (Bld) 5.4 % Normal 1.7-12.0 [facility] Comment on above: Performed By: #### L ACT #### [facility] [address] [place] [address] Dr. Ellie Smith NEUT # 6.0 103/ul Normal 1.4-6.5 [facility] Comment on above: Performed By: #### L ACT #### [facility] [address] [place] [address] Dr. Ellie Smith Neutrophils/100 WBC (Bld) 69.6 % Normal 43.0-75.0 [facility] Comment on above: Performed By: #### L ACT #### [facility] [address] [place] [address] Dr. Ellie Smith Platelet mean volume (Bld) [Entitic vol] 9.5 fL Normal 9.5-13.5 [facility] Comment on above: Performed By: #### L ACT #### [facility] [address] [place] [address] Dr. Ellie Smith PLT 252 103/ul Normal 150-450 [facility] Comment on above: Performed By: #### L ACT #### [facility] [address] [place] [address] Dr. Ellie Smith RBC 3.79 106/ul Critically low 4.20-5.40 [facility] Comment on above: Performed By: #### L ACT #### [facility] [address] [place] [address] Dr. Ellie Smith WBC 8.6 103/ul Normal 4.0-11.0 [facility] Comment on above: Performed By: #### L ACT #### [facility] [address] [place] [address] Dr. Ellie Smith POINT OF CARE GLUCOSEon 01-10 Glucose [Mass/Vol] 93 mg/dL Normal 74-106 [facility] Comment on above: Performed By: #### A 1C #### [facility] [address] [place] [address] Dr. Ellie Smith PROF 14(COMP METB)on 022 Albumin [Mass/Vol] 3.2 g/dL Critically low 3.4-5.0 [facility] Comment on above: Performed By: #### R [id number] #### [facility] [address] [place] [address] Dr. Ellie Smith Albumin/Globulin [Mass ratio] 1.1 {ratio} Normal [facility] Comment on above: Performed By: #### R [id number] #### [facility] [address] [place] [address] Dr. Ellie Smith ALP [Catalytic activity/Vol] 52 U/L Normal 46-116 [facility] Comment on above: Performed By: #### R [id number] #### [facility] [address] [place] [address] Dr. Ellie Smith ALT [Catalytic activity/Vol] 52 U/L Normal 14-59 [facility] Comment on above: Performed By: #### R [id number] #### [facility] [address] [place] [address] Dr. Ellie Smith Anion gap [Moles/Vol] 9.7 mmol/L Normal [facility] Comment on above: Performed By: #### R [id number] #### [facility] [address] [place] [address] Dr. Ellie Smith AST [Catalytic activity/Vol] 22 U/L Normal 15-37 [facility] Comment on above: Performed By: #### R [id number] #### [facility] [address] [place] [address] Dr. Ellie Smith Bilirubin [Mass/Vol] 0.3 mg/dL Normal 0.2-1.0 [facility] Comment on above: Performed By: #### R [id number] #### [facility] [address] [place] [address] Dr. Ellie Smith Calcium [Mass/Vol] 8.4 mg/dL Critically low 8.5-10.1 [facility] Comment on above: Performed By: #### R [id number] #### [facility] [address] [place] [address] Dr. Ellie Smith Chloride [Moles/Vol] 104 mmol/L Normal 98-107 [facility] Comment on above: Performed By: #### R [id number] #### [facility] [address] [place] [address] Dr. Ellie Smith CO2 [Moles/Vol] 25.5 mmol/L Normal 21.0-32.0 [facility] Comment on above: Performed By: #### R [id number] #### [facility] [address] [place] [address] Dr. Ellie Smith Creatinine [Mass/Vol] 0.71 mg/dL Normal 0.55-1.02 [facility] Comment on above: Performed By: #### R [id number] #### [facility] [address] [place] [address] Dr. Ellie Smith EGFR-AF CZECH >60 Normal >=60 [facility] Comment on above: Performed By: #### R [id number] #### [facility] [address] [place] [address] Dr. Ellie Smith EGFR-NON AF CZECH >60 Normal >=60 [facility] Comment on above: Performed By: #### R [id number] #### [facility] [address] [place] [address] Dr. Ellie Smith Globulin (S) [Mass/Vol] 2.9 g/dL Normal [facility] Comment on above: Performed By: #### R [id number] #### [facility] [address] [place] [address] Dr. Ellie Smith Glucose [Mass/Vol] 102 mg/dL Normal 74-106 [facility] Comment on above: Performed By: #### R [id number] #### [facility] [address] [place] [address] Dr. Ellie Smith Potassium [Moles/Vol] 4.2 mmol/L Normal 3.5-5.1 [facility] Comment on above: Performed By: #### R [id number] #### [facility] [address] [place] [address] Dr. Ellie Smith Protein [Mass/Vol] 6.1 g/dL Critically low 6.4-8.2 [facility] Comment on above: Performed By: #### R [id number] #### [facility] [address] [place] [address] Dr. Ellie Smith Sodium [Moles/Vol] 135 mmol/L Critically low 136-145 [facility] Comment on above: Performed By: #### R [id number] #### [facility] [address] [place] [address] Dr. Ellie Smith Urea nitrogen [Mass/Vol] 11.0 mg/dL Normal 7.0-18.0 [facility] Comment on above: Performed By: #### R [id number] #### [facility] [address] [place] [address] Dr. Ellie Smith Urea nitrogen/Creatinine [Mass ratio] 15.5 mg/mg Normal [facility] Comment on above: Performed By: #### R [id number] #### [facility] [address] [place] [address] Dr. Ellie Smith CARDIAC RAQUEL 3-6on 2 CK [Catalytic activity/Vol] 192 U/L Normal 26-192 [facility] Comment on above: Performed By: #### L ACT #### [facility] [address] [place] [address] Dr. Ellie Smith CK.MB [Mass/Vol] 0.70 ng/mL Normal <=3.60 [facility] Comment on above: Performed By: #### L ACT #### [facility] [address] [place] [address] Dr. Ellie Smith HSTROP 88.8 pg/mL Critically high 4.0-51.3 [facility] Comment on above: Result Comment: CUT- OFF POINTS HAVE BEEN ESTABLISHED BASED ON THE FOURTH UNIVERSAL DEFINITIONS OF MYOCARDIAL INFARCTION. THE UPPER REFERENCE LIMIT (URL) OF TROPONIN, DEFINED THE 99TH PERCENTILE OF cTnI DISTRIBUTION IN A REFERENCE POPULATION, HAS BEEN CONFIRMED THE DECISION THRESHOLD FOR [place] DIAGNOSIS. Performed By: #### L ACT #### [facility] [address] [place] [address] Dr. Ellie Smith CK [Catalytic activity/Vol] 213 U/L Critically high 26-192 [facility] Comment on above: Performed By: #### P OCGLUC #### [facility] [address] [place] [address] Dr. Ellie Smith CK.MB [Mass/Vol] 0.90 ng/mL Normal <=3.60 [facility] Comment on above: Performed By: #### P OCGLUC #### [facility] [address] [place] [address] Dr. Ellie Smith HSTROP 108.1 pg/mL Critically high 4.0-51.3 [facility] Comment on above: Result Comment: CUT- OFF POINTS HAVE BEEN ESTABLISHED BASED ON THE FOURTH UNIVERSAL DEFINITIONS OF MYOCARDIAL INFARCTION. THE UPPER REFERENCE LIMIT (URL) OF TROPONIN, DEFINED THE 99TH PERCENTILE OF cTnI DISTRIBUTION IN A REFERENCE POPULATION, HAS BEEN CONFIRMED THE DECISION THRESHOLD FOR KS DIAGNOSIS. repeated Performed By: #### P OCGLUC #### [facility] [address] [place] [address] Dr. Ellie Smith CBC AUTO DIFFon 01-27-2022 BASO # 0.1 103/ul Normal 0.0-0.1 [facility] Comment on above: Performed By: #### P OCGLUC #### [facility] [address] [place] [address] Dr. Ellie Smith Basophils/100 WBC (Bld) 0.5 % Normal 0.2-2.0 [facility] Comment on above: Performed By: #### P OCGLUC #### [facility] [address] [place] [address] Dr. Ellie Smith EO # 0.4 103/ul Normal 0.0-0.7 [facility] Comment on above: Performed By: #### P OCGLUC #### [facility] [address] [place] [address] Dr. Ellie Smith Eosinophils/100 WBC (Bld) 3.2 % Normal 0.9-7.0 [facility] Comment on above: Performed By: #### P OCGLUC #### [facility] [address] [place] [address] Dr. Ellie Smith Erythrocyte distribution width (RBC) [Ratio] 13.7 % Normal 11.0-15.0 [facility] Comment on above: Performed By: #### P OCGLUC #### [facility] [address] [place] [address] Dr. Ellie Smith Hematocrit (Bld) [Volume fraction] 40.5 % Normal 36.0-48.0 [facility] Comment on above: Performed By: #### P OCGLUC #### [facility] [address] [place] [address] Dr. Ellie Smith Hemoglobin (Bld) [Mass/Vol] 13.4 g/dL Normal 12.0-16.0 [facility] Comment on above: Performed By: #### P OCGLUC #### [facility] [address] [place] [address] Dr. Ellie Smith IG # 0.04 10e3/ul Critically high 0.00-0.03 [facility] Comment on above: Performed By: #### P OCGLUC #### [facility] [address] [place] [address] Dr. Ellie Smith IG % 0.3 % Normal 0.0-0.5 [facility] Comment on above: Performed By: #### P OCGLUC #### [facility] [address] [place] [address] Dr. Ellie Smith LYMPH # 2.4 103/ul Normal 1.2-3.8 [facility] Comment on above: Performed By: #### P OCGLUC #### [facility] [address] [place] [address] Dr. Ellie Smith Lymphocytes/100 WBC (Bld) 18.6 % Critically low 20.5-60.0 [facility] Comment on above: Performed By: #### P OCGLUC #### [facility] [address] [place] [address] Dr. Ellie Smith MANUAL DIFF REQ NO Normal [facility] Comment on above: Performed By: #### P OCGLUC #### [facility] [address] [place] [address] Dr. Ellie Smith MCH (RBC) [Entitic mass] 31.0 pg Normal 26.7-34.0 [facility] Comment on above: Performed By: #### P OCGLUC #### [facility] [address] [place] [address] Dr. Ellie Smith MCHC (RBC) [Mass/Vol] 33.1 g/dL Normal 29.9-35.2 [facility] Comment on above: Performed By: #### P OCGLUC #### [facility] [address] [place] [address] Dr. Ellie Smith MCV (RBC) [Entitic vol] 93.8 fL Normal 81.0-99.0 [facility] Comment on above: Performed By: #### P OCGLUC #### [facility] [address] [place] [address] Dr. Ellie Smith MONO # 0.7 103/ul Normal 0.3-0.8 [facility] Comment on above: Performed By: #### P OCGLUC #### [facility] [address] [place] [address] Dr. Ellie Smith Monocytes/100 WBC (Bld) 5.5 % Normal 1.7-12.0 [facility] Comment on above: Performed By: #### P OCGLUC #### [facility] [address] [place] [address] Dr. Ellie Smith NEUT # 9.1 103/ul Critically high 1.4-6.5 [facility] Comment on above: Performed By: #### P OCGLUC #### [facility] [address] [place] [address] Dr. Ellie Smith Neutrophils/100 WBC (Bld) 71.9 % Normal 43.0-75.0 [facility] Comment on above: Performed By: #### P OCGLUC #### [facility] [address] [place] [address] Dr. Ellie Smith Platelet mean volume (Bld) [Entitic vol] 9.6 fL Normal 9.5-13.5 [facility] Comment on above: Performed By: #### P OCGLUC #### [facility] [address] [place] [address] Dr. Ellie Smith PLT 307 103/ul Normal 150-450 [facility] Comment on above: Performed By: #### P OCGLUC #### [facility] [address] [place] [address] Dr. Ellie Smith RBC 4.32 106/ul Normal 4.20-5.40 [facility] Comment on above: Performed By: #### P OCGLUC #### [facility] [address] [place] [address] Dr. Ellie Smith WBC 12.6 103/ul Critically high 4.0-11.0 [facility] Comment on above: Performed By: #### P OCGLUC #### [facility] [address] [place] [address] ABD/PELVIS WO CONon [...] by: JONA ORLANDO Date: 2022-01-27 02:44 Normal [facility] CTA CHEST WO W CONon [...] JONA ORLANDO Date: 2022-01-27 03:46 Normal [facility] Covid-19 PCR (CVDTB)on 01-10 SARS-CoV-2 (COVID-19) RNA MEI+probe Ql (Unsp spec) Not detected Normal NOT DETECTED [facility] Comment on above: Result Comment: When [...] for this test is supported by the [employer] and Human Service's declaration that [...] used). Performed By: #### R [id number] #### [facility] [address] [place] [address] [address] Ellie Smith D-DIMERon 01-27-2022 D-DIMER 0.71 mg/L FEU Critically high <=0.59 [facility] Comment on above: Performed By: #### L ACT #### [facility] [address] [address] [address] Ellie Smith D-DIMER COMMENTS SEE BELOW Normal [facility] Comment on above: Result Comment: Incr [...] hospitalization. Performed By: #### L ACT #### [facility] [address] [place] [address] Dr. Ellie Smith ER URINE PROFILEon 2 Bilirubin Ql (U) Negative Normal NEGATIVE [facility] Comment on above: Performed By: #### P OCGLUC #### [facility] [address] [place] [address] Dr. Ellie Smith Clarity (U) CLEAR Normal CLEAR [facility] Comment on above: Performed By: #### P OCGLUC #### [facility] [address] [place] [address] Dr. Ellie Smith Color (U) LT. YELLOW Normal YELLOW [facility] Comment on above: Performed By: #### P OCGLUC #### [facility] [address] [place] [address] Dr. Ellie HAMMONDS A micrscopic examina tion will be performed if indicated. Normal [facility] Comment on above: Performed By: #### P OCGLUC #### [facility] [address] [place] [address] Dr. Ellie Smith Glucose Ql (U) Negative Normal NEGATIVE [facility] Comment on above: Performed By: #### P OCGLUC #### [facility] [address] [place] [address] Dr. Ellie Smith Hemoglobin Ql (U) Negative Normal NEGATIVE [facility] Comment on above: Performed By: #### P OCGLUC #### [facility] [address] [place] [address] Dr. Ellie Smith Ketones Ql (U) Negative Normal NEGATIVE [facility] Comment on above: Performed By: #### P OCGLUC #### [facility] [address] [address] [address] Ellie Smith LEUKOCYTES Negative Normal NEGATIVE [facility] Comment on above: Performed By: #### P OCGLUC #### [facility] [address] [address] [address] Ellie Smith Nitrite Ql (U) Negative Normal NEGATIVE [facility] Comment on above: Performed By: #### P OCGLUC #### [facility] [address] [address] [address] Ellie Smith pH (U) 6.0 [pH] Normal 5-9 [facility] Comment on above: Performed By: #### P OCGLUC #### [facility] [address] [place] [address] Dr. Ellie Smith SPEC GRAVITY 1.010 Normal 1.005-<=1. 025 [facility] Comment on above: Performed By: #### P OCGLUC #### [facility] [address] [place] [address] Dr. Ellie Smith UA PROTEIN Negative Normal NEGATIVE/ TRACE [facility] Comment on above: Performed By: #### P OCGLUC #### [facility] [address] [place] [address] Dr. Ellie Smith UR MICRO IND NOT INDICATED Normal [facility] Comment on above: Performed By: #### P OCGLUC #### [facility] [address] [place] [address] Dr. Ellie Smith Urobilinogen Qn (U) 0.2 {Tamia'U}/dL Normal 0.2 - 1. 0 [facility] Comment on above: Performed By: #### P OCGLUC #### [facility] [address] [place] [address] Dr. Ellie Smith LACTATE/LACTIC ACIDon 2021 Lactate [Moles/Vol] 1.8 mmol/L Normal 0.4-1.9 [facility] Comment on above: Performed By: #### L ACT #### [facility] [address] [place] [address] Dr. Ellie Smith POINT OF CARE GLUCOSEon 01-10 Glucose [Mass/Vol] 132 mg/dL Critically high 74-106 [facility] Comment on above: Performed By: #### L ACT #### [facility] [address] [place] [address] Dr. Ellie Smith Glucose [Mass/Vol] 99 mg/dL Normal 74-106 [facility] Comment on above: Performed By: #### L ACT #### [facility] [address] [address] [address] Ellie Smith Glucose [Mass/Vol] 117 mg/dL Critically high 74-106 [facility] Comment on above: Performed By: #### P OCGLUC #### [facility] [address] [place] [address] Dr. Ellie Smith Glucose [Mass/Vol] 105 mg/dL Normal 74-106 [facility] Comment on above: Performed By: #### L ACT #### [facility] [address] [place] [address] Dr. Ellie Smith PROF 14(COMP METB)on 022 Albumin [Mass/Vol] 3.6 g/dL Normal 3.4-5.0 [facility] Comment on above: Performed By: #### C MP #### [facility] [address] [place] [address] Dr. Ellie Smith Albumin/Globulin [Mass ratio] 1.1 {ratio} Normal [facility] Comment on above: Performed By: #### C MP #### [facility] [address] [place] [address] Dr. Ellie Smith ALP [Catalytic activity/Vol] 61 U/L Normal 46-116 [facility] Comment on above: Performed By: #### C MP #### [facility] [address] [place] [address] Dr. Ellie Smith ALT [Catalytic activity/Vol] 53 U/L Normal 14-59 [facility] Comment on above: Performed By: #### C MP #### [facility] [address] [place] [address] Dr. Ellie Smith Anion gap [Moles/Vol] 14.7 mmol/L Normal [facility] Comment on above: Performed By: #### C MP #### [facility] [address] [address] [address] Ellie Smith AST [Catalytic activity/Vol] 43 U/L Critically high 15-37 [facility] Comment on above: Performed By: #### C MP #### [facility] [address] [address] [address] Ellie Smith Bilirubin [Mass/Vol] 0.4 mg/dL Normal 0.2-1.0 [facility] Comment on above: Performed By: #### C MP #### [facility] [address] [address] [address] Ellie Smith Calcium [Mass/Vol] 8.6 mg/dL Normal 8.5-10.1 [facility] Comment on above: Performed By: #### C MP #### [facility] [address] [address] [address] Ellie Smith Chloride [Moles/Vol] 99 mmol/L Normal 98-107 [facility] Comment on above: Performed By: #### C MP #### [facility] [address] [address] [address] Ellie Smith CO2 [Moles/Vol] 22.4 mmol/L Normal 21.0-32.0 [facility] Comment on above: Performed By: #### C MP #### [facility] [address] [address] [address] Ellie Smith Creatinine [Mass/Vol] 0.90 mg/dL Normal 0.55-1.02 [facility] Comment on above: Performed By: #### C MP #### [facility] [address] [address] [address] Ellie Smith EGFR-AF CZECH >60 Normal >=60 [facility] Comment on above: Performed By: #### C MP #### [facility] [address] [address] [address] Ellie Smith EGFR-NON AF CZECH 60 mL/min/1.73m2 Normal >=60 [facility] Comment on above: Performed By: #### C MP #### [facility] [address] [address] [address] Ellie Smith Globulin (S) [Mass/Vol] 3.3 g/dL Normal [facility] Comment on above: Performed By: #### C MP #### [facility] [address] [address] [address] Ellie Smith Glucose [Mass/Vol] 108 mg/dL Critically high 74-106 [facility] Comment on above: Performed By: #### C MP #### [facility] [address] [address] [address] Ellie Smith Potassium [Moles/Vol] 4.1 mmol/L Normal 3.5-5.1 [facility] Comment on above: Performed By: #### C MP #### [facility] [address] [place] [address] Dr. Ellie Smith Protein [Mass/Vol] 6.9 g/dL Normal 6.4-8.2 [facility] Comment on above: Performed By: #### C MP #### [facility] [address] [place] [address] Dr. Ellie Smith Sodium [Moles/Vol] 132 mmol/L Critically low 136-145 [facility] Comment on above: Performed By: #### C MP #### [facility] [address] [place] [address] Dr. Ellie Smith Urea nitrogen [Mass/Vol] 15.0 mg/dL Normal 7.0-18.0 [facility] Comment on above: Performed By: #### C MP #### [facility] [address] [place] [address] Dr. Ellie Smith Urea nitrogen/Creatinine [Mass ratio] 16.7 mg/mg Normal [facility] Comment on above: Performed By: #### C MP #### [facility] [address] [place] [address] Dr. Ellie Smith PROTIMEon 01-27-2022 INR Coag (PPP) [Relative time] 1.00 {INR} Normal [facility] Comment on above: Performed By: #### P OCGLUC #### [facility] [address] [place] [address] Dr. Ellie Smith INR GUIDELINES SEE BELOW Normal [facility] Comment on above: Result Comment: HIMANSHU RED INR: 2.0 - 3.0 CONDITIONS NOT LISTED BELOW 2.5 - 3.5 FOR PROSTHETIC HEART VALVE REPLACEMENT 2.5 - 3.5 RECURRENT THROMBOSIS Performed By: #### P OCGLUC #### [facility] [address] [place] [address] Dr. Ellie Smith PT Coag (PPP) [Time] 10.8 s Normal 9.0-11.6 [facility] Comment on above: Performed By: #### P OCGLUC #### [facility] [address] [place] [address] Dr. Ellie Smith PTTon 01-27-2022 aPTT Coag (Bld) [Time] 28.6 s Normal 22.3-36.[address] [facility] Comment on above: Performed By: #### L ACT #### [facility] [address] [place] [address] Dr. Ellie Smith TROPONIN, HIGH SENSITIVITYon 01-27-2022 HSTROP 116.4 pg/mL Critically high 4.0-51.3 [facility] Comment on above: Result Comment: CUT- OFF POINTS HAVE BEEN ESTABLISHED BASED ON THE FOURTH UNIVERSAL DEFINITIONS OF MYOCARDIAL INFARCTION. THE UPPER REFERENCE LIMIT (URL) OF TROPONIN, DEFINED THE 99TH PERCENTILE OF cTnI DISTRIBUTION IN A REFERENCE POPULATION, HAS BEEN CONFIRMED THE DECISION THRESHOLD FOR [place] DIAGNOSIS. Performed By: #### A 1C #### [facility] [address] [place] [address] Dr. Ellie Smith HSTROP 151.5 pg/mL Critically high 4.0-51.3 [facility] Comment on above: Result Comment: CUT- OFF POINTS HAVE BEEN ESTABLISHED BASED ON THE FOURTH UNIVERSAL DEFINITIONS OF MYOCARDIAL INFARCTION. THE UPPER REFERENCE LIMIT (URL) OF TROPONIN, DEFINED THE 99TH PERCENTILE OF cTnI DISTRIBUTION IN A REFERENCE POPULATION, HAS BEEN CONFIRMED THE DECISION THRESHOLD FOR [place] DIAGNOSIS. Performed By: #### P OCGLUC #### [facility] [address] [place] [address] Dr. Ellie Smith XR CHEST 1 Von [...] by: JONA ORLANDO Date: 2022-01-27 01:08 Normal [facility] Albumin [Mass/volume] in Ser um or PlasmaOrdered By: Diony Hooks on 01-21-2022 Albumin [Mass/Vol] 3.4 g/dL 3.2-5.5 [facility] Basophils Auto (Bld) [#/Vol] Ordered By: Diony Hooks on 01-21-2022 Basophils (Bld) [#/Vol] 0.0 10*3/uL 0.0-0.2 [facility] Basophils/100 WBC Auto (Bld) Ordered By: Diony Hooks on 01-21-2022 Basophils/100 WBC (Bld) 0.4 % . [facility] Blood hemoglobin measurement (mass/volume)Ordered By: Diony Hooks on 01-21-2022 Hemoglobin (Bld) [Mass/Vol] 13.3 g/dL 11.8-15.4 [facility] Blood leukocytes automated c ount (number/volume)Ordered By: Diony Hooks on 01-21-2022 WBC (Bld) [#/Vol] 8.5 10*3/uL 4.5-11.0 [facility] Creatinine and Glomerular fi ltration rate.predicted panel (S/P/Bld)Ordered By: Diony Hooks on 01-21-2022 Creatinine [Mass/Vol] 0.72 mg/dL 0.44-1.03 [facility] Eosinophils Auto (Bld) [#/Vo l]Ordered By: Diony Hooks on 01-21-2022 Eosinophils (Bld) [#/Vol] 0.4 10*3/uL 0.0-0.45 [facility] Eosinophils/100 WBC Auto (Bl d)Ordered By: Diony Hooks on 01-21-2022 Eosinophils/100 WBC (Bld) 4.2 % . [facility] Erythrocyte distribution wid th Auto (RBC) [Ratio]Ordered By: Diony Hooks on 01-21-2022 Erythrocyte distribution width (RBC) [Ratio] 14.4 % 11.9-15.3 [facility] Estimated glomerular filtrat ion rate (GFR) non- AmericanOrdered By: Diony Hooks on 01-21-2022 GFR/1.73 sq M.predicted among non-blacks MDRD (S/P/Bld) [Vol rate/Area] > 60 mL/Min [facility] Globulin Calc (S) [Mass/Vol] Ordered By: Diony Hooks on 01-21-2022 Globulin (S) [Mass/Vol] 2.4 g/dL [facility] Glucose Glucometer (BldC) [M ass/Vol]Ordered By: Wiley Beal on 01-21-2022 Glucose [Mass/Vol] 93 mg/dL [facility] Comment on above: Random Glucose Refer ence Range is dependent on time and content of last meal. Glucose of more than 200 mg/dL in a nonstressed, ambulatory subject supports the diagnosis of Diabetes Mellitus. Hematocrit Auto (Bld) [Volum e fraction]Ordered By: Diony Hooks on 01-21-2022 Hematocrit (Bld) [Volume fraction] 40.5 % 34.0-46.4 [facility] - Hematology and Cell countsOrdered By: Diony Hooks on 01-21-2022 Nucleated RBC/100 WBC (Bld) [Ratio] 0.0 % 0-0.5 [facility] Lymphocytes Auto (Bld) [#/Vo l]Ordered By: Diony Hooks on 01-21-2022 Lymphocytes (Bld) [#/Vol] 1.2 10*3/uL 1.00-4.8 [facility] Lymphocytes/100 WBC Auto (Bl d)Ordered By: Diony Hooks on 01-21-2022 Lymphocytes/100 WBC (Bld) 14.2 % . [facility] MCH Auto (RBC) [Entitic mass ]Ordered By: Diony Hooks on 01-21-2022 MCH (RBC) [Entitic mass] 30.7 pg 24.7-34.3 [facility] MCHC Auto (RBC) [Mass/Vol]Or dered By: Diony Hooks on 01-21-2022 MCHC (RBC) [Mass/Vol] 32.9 g/dL 32.0-35.0 [facility] MCV Auto (RBC) [Entitic vol] Ordered By: Diony Hooks on 01-21-2022 MCV (RBC) [Entitic vol] 93.1 fL 80-100 [facility] Monocytes Auto (Bld) [#/Vol] Ordered By: Diony Hooks on 01-21-2022 Monocytes (Bld) [#/Vol] 0.6 10*3/uL 0.0-0.8 [facility] Monocytes/100 WBC Auto (Bld) Ordered By: Diony Hooks on 01-21-2022 Monocytes/100 WBC (Bld) 6.7 % . [facility] Neutrophils Auto (Bld) [#/Vo l]Ordered By: Diony Hooks on 01-21-2022 Neutrophils (Bld) [#/Vol] 6.3 10*3/uL 1.8-7.7 [facility] Neutrophils/100 WBC Auto (Bl d)Ordered By: Diony Hooks on 01-21-2022 Neutrophils/100 WBC (Bld) 74.5 % . [facility] No Panel InformationOrdered By: Wiley Beal on 01-21-2022 Bedside Glucose Comment Glu2: cleaned meter [facility] No Panel InformationOrdered By: Diony Hooks on 01-21-2022 Estimated GFR () > 60 mL/Min [facility] Comment on above: GFR estimated refere nce range: According to KDOQI guidelines, <60 ml/min/1.73m2 is sufficient to diagnose a patient with chronic kidney disease. Pharmacy Creatinine Clearance (Chem 55.72 [facility] Platelet mean volume Auto (B ld) [Entitic vol]Ordered By: Diony Hooks on 01-21-2022 Platelet mean volume (Bld) [Entitic vol] 7.8 fL 6.3-10.7 [facility] Platelets Auto (Bld) [#/Vol] Ordered By: Diony Hooks on 01-21-2022 Platelets (Bld) [#/Vol] 235 10*3/uL 150-450 [facility] Protein [Mass/volume] in Ser um or PlasmaOrdered By: Diony Hooks on 01-21-2022 Protein [Mass/Vol] 5.8 g/dL 6.1-7.9 [facility] RBC Auto (Bld) [#/Vol]Ordere d By: Diony Hooks on 01-21-2022 RBC (Bld) [#/Vol] 4.35 10*6/uL 3.60-5.00 [facility] Serum or plasma alanine potter otransferase measurement without P-5'-P (enzymatic activiOrdered By: Diony Hooks on 01-21-2022 ALT No additional P-5'-P [Catalytic activity/Vol] 16 U/L 10-60 [facility] Serum or plasma albumin/glob ulin mass ratioOrdered By: Diony Hooks on 01-21-2022 Albumin/Globulin [Mass ratio] 1.4 {ratio} [facility] Serum or plasma alkaline inge sphatase measurement (enzymatic activity/volume)Ordered By: Diony Hooks on 01-21-2022 ALP [Catalytic activity/Vol] 43 U/L 32-92 [facility] Serum or plasma aspartate am inotransferase measurement (enzymatic activity/volume)Ordered By: Diony Hooks on 01-21-2022 AST [Catalytic activity/Vol] 25 U/L 10-42 [facility] Serum or plasma calcium norma urement (mass/volume)Ordered By: Diony Hooks on 01-21-2022 Calcium [Mass/Vol] 9.1 mg/dL 8.2-10.2 [facility] Serum or plasma chloride tam surement (moles/volume)Ordered By: Diony Hooks on 01-21-2022 Chloride [Moles/Vol] 104 mmol/L 95-114 [facility] Serum or plasma glucose norma urement (mass/volume)Ordered By: Diony Hooks on 01-21-2022 Glucose [Mass/Vol] 98 mg/dL 70-100 [facility] Comment on above: ADA recommended refe rence range Random Glucose Reference Range is dependent on time and content of last meal. Glucose of more than 200 mg/dL in a nonstressed, ambulatory subject supports the diagnosis of Diabetes Mellitus. Serum or plasma potassium me asurement (moles/volume)Ordered By: Diony Hooks on 01-21-2022 Potassium [Moles/Vol] 3.8 mmol/L 3.5-5.1 [facility] Serum or plasma sodium measu rement (moles/volume)Ordered By: Diony Hooks on 01-21-2022 Sodium [Moles/Vol] 135 mmol/L 136-146 [facility] Serum or plasma total biliru bin measurement (mass/volume)Ordered By: Diony Hooks on 01-21-2022 Bilirubin [Mass/Vol] 0.9 mg/dL 0.3-1.2 [facility] Serum or plasma total carbon dioxide measurement (moles/volume)Ordered By: Diony Hooks on 01-21-2022 CO2 [Moles/Vol] 23.4 mmol/L 22.0-30.0 [facility] Serum or plasma urea nitroge n measurement (mass/volume)Ordered By: Diony Hooks on 01-21-2022 Urea nitrogen [Mass/Vol] 9 mg/dL 9-23 [facility] Activated partial thrombopla stin time (aPTT) in platelet poor plasma by coagulation aOrdered By: Wiley Beal on 01-20-2022 aPTT Coag (PPP) [Time] 70.5 s 25.1-36.5 [facility] Cholesterol [Mass/volume] in Serum or PlasmaOrdered By: Justa Westfall on 01-19-2022 Cholesterol [Mass/Vol] 181 mg/dL 140-200 [facility] Comment on above: Chol less than 200 m g/dl low risk Chol 201-239 mg/dl borderline risk Chol 240 mg/dl and greater high risk Cholesterol in LDL Calc [Mas s/Vol]Ordered By: Justa Westfall on 01-19-2022 Cholesterol in LDL [Mass/Vol] 112 mg/dL 0-100 [facility] Comment on above: LDL ATP III CLASSIFI CATION LDL less than 100 mg/dL Optimal LDL 100-129 mg/dL Near or above optimal LDL 130-159 mg/dL Borderline high LDL 160-189 mg/dL High LDL greater than 189 mg/dL Very high Cholesterol in VLDL Calc [Ma ss/Vol]Ordered By: Justa Westfall on 01-19-2022 Cholesterol in VLDL [Mass/Vol] 22 mg/dL [facility] - Chemistry and C hemistry - challengeOrdered By: Justa Westfall on 01-19-2022 Magnesium [Mass/Vol] 1.4 mg/dL 1.6-2.6 [facility] - CoagulationOrde red By: Justa Westfall on 01-19-2022 PT Coag (PPP) [Time] 11.7 s 9.0-12.9 [facility] Platelet poor plasma interna tional normalized ratio (INR) by coagulation assay (relatOrdered By: Justa Westfall on 01-19-2022 INR Coag (PPP) [Relative time] 1.0 {INR} [facility] Comment on above: INR Therapeutic Rang [...] Cholesterol in HDL [Mass/Vol] 46 mg/dL 35-85 [facility] Comment on above: HDL CHOL ATP-III CLA SSIFICATION Cardiovascular Risk HDL > or equal to 60 mg/dL LOW HDL < 40 mg/dL HIGH Serum or plasma total choles terol/high density lipoprotein (HDL) cholesterol mass ratOrdered By: Justa Westfall on 01-19-2022 Cholesterol.total/Chol esterol in HDL [Mass ratio] 3.9 {ratio} <5.0 [facility] Triglyceride [Mass/volume] i n Serum or PlasmaOrdered By: Justa Westfall on 01-19-2022 Triglyceride [Mass/Vol] 113 mg/dL 35-149 [facility] Comment on above: TRIG ATP III [...] High sensitivity method [Mass/Vol] 3577 pg/mL 0-15 [facility] Comment on above: Results called at 0943 on 01/19/22 BNPon 01-18-2022 Natriuretic peptide B (Bld) [Mass/Vol] 1222.0 pg/mL Normal <=1,800.0 [facility] Comment on above: Performed By: #### A 1C #### [facility] [address] [place] [address] Dr. Ellie Smith CBC AUTO DIFFon 01-18-2022 BASO # 0.1 103/ul Normal 0.0-0.1 [facility] Comment on above: Performed By: #### R [id number] #### [facility] [address] [place] [address] Dr. Ellie Smith Basophils/100 WBC (Bld) 0.5 % Normal 0.2-2.0 [facility] Comment on above: Performed By: #### R [id number] #### [facility] [address] [place] [address] Dr. Ellie Smith EO # 0.2 103/ul Normal 0.0-0.7 [facility] Comment on above: Performed By: #### R [id number] #### [facility] [address] [place] [address] Dr. Ellie Smith Eosinophils/100 WBC (Bld) 2.4 % Normal 0.9-7.0 [facility] Comment on above: Performed By: #### R [id number] #### [facility] [address] [place] [address] Dr. Ellie Smith Erythrocyte distribution width (RBC) [Ratio] 14.1 % Normal 11.0-15.0 [facility] Comment on above: Performed By: #### R [id number] #### [facility] [address] [place] [address] Dr. Ellie Smith Hematocrit (Bld) [Volume fraction] 42.2 % Normal 36.0-48.0 [facility] Comment on above: Performed By: #### R [id number] #### [facility] [address] [place] [address] Dr. Ellie Smith Hemoglobin (Bld) [Mass/Vol] 13.9 g/dL Normal 12.0-16.0 [facility] Comment on above: Performed By: #### R [id number] #### [facility] [address] [place] [address] Dr. Ellie Smith IG # 0.02 10e3/ul Normal 0.00-0.03 [facility] Comment on above: Performed By: #### R [id number] #### [facility] [address] [place] [address] Dr. Ellie Smith IG % 0.2 % Normal 0.0-0.5 [facility] Comment on above: Performed By: #### R [id number] #### [facility] [address] [place] [address] Dr. Ellie Smith LYMPH # 2.1 103/ul Normal 1.2-3.8 [facility] Comment on above: Performed By: #### R [id number] #### [facility] [address] [place] [address] Dr. Ellie Smith Lymphocytes/100 WBC (Bld) 21.2 % Normal 20.5-60.0 [facility] Comment on above: Performed By: #### R [id number] #### [facility] [address] [place] [address] Dr. Ellie Smith MANUAL DIFF REQ NO Normal [facility] Comment on above: Performed By: #### R [id number] #### [facility] [address] [place] [address] Dr. Ellie Smith MCH (RBC) [Entitic mass] 31.2 pg Normal 26.7-34.0 [facility] Comment on above: Performed By: #### R [id number] #### [facility] [address] [place] [address] Dr. Ellie Smith MCHC (RBC) [Mass/Vol] 32.9 g/dL Normal 29.9-35.2 [facility] Comment on above: Performed By: #### R [id number] #### [facility] [address] [place] [address] Dr. Ellie Smith MCV (RBC) [Entitic vol] 94.6 fL Normal 81.0-99.0 [facility] Comment on above: Performed By: #### R [id number] #### [facility] [address] [place] [address] Dr. Ellie Smith MONO # 0.5 103/ul Normal 0.3-0.8 [facility] Comment on above: Performed By: #### R [id number] #### [facility] [address] [place] [address] Dr. Ellie Smith Monocytes/100 WBC (Bld) 4.7 % Normal 1.7-12.0 [facility] Comment on above: Performed By: #### R [id number] #### [facility] [address] [place] [address] Dr. Ellie Smith NEUT # 7.1 103/ul Critically high 1.4-6.5 [facility] Comment on above: Performed By: #### R [id number] #### [facility] [address] [place] [address] Dr. Ellie Smith Neutrophils/100 WBC (Bld) 71.0 % Normal 43.0-75.0 [facility] Comment on above: Performed By: #### R [id number] #### [facility] [address] [place] [address] Dr. Ellie Smith Platelet mean volume (Bld) [Entitic vol] 9.2 fL Critically low 9.5-13.5 [facility] Comment on above: Performed By: #### R [id number] #### [facility] [address] [place] [address] Dr. Ellie Smith PLT 257 103/ul Normal 150-450 [facility] Comment on above: Performed By: #### R [id number] #### [facility] [address] [place] [address] Dr. Ellie Smith RBC 4.46 106/ul Normal 4.20-5.40 [facility] [facility] Comment on above: Performed By: #### R [id number] #### [facility] [address] [place] [address] Dr. Ellie Smith WBC 10.0 103/ul Normal 4.0-11.0 [facility] Comment on above: Performed By: #### R EVRT3 #### [facility] [address] [address] [address] Ellie Smith [facility]on SARS-CoV-2 (COVID-19) RNA MEI+probe Ql (Unsp spec) Not detected Normal NOT DETECTED [facility] Comment on above: Result Comment: When [...] for this test is supported by the [place] of [employer] and Human Service's declaration that [...] used). Performed By: #### C VDTBH #### [facility] [address] [place] [address] Dr. Ellie Smith LIPASEon 01-18-2022 Lipase [Catalytic activity/Vol] 62.0 U/L Critically low 73.0-393.0 [facility] Comment on above: Performed By: #### A 1C #### [facility] [address] [place] [address] Dr. Ellie Smith MAGNESIUMon 01-18-2022 Magnesium [Mass/Vol] 1.4 mg/dL Critically low 1.8-2.4 [facility] Comment on above: Performed By: #### M G #### [facility] [address] [place] [address] Dr. Ellie Smith PROF 14(COMP METB)on 022 Albumin [Mass/Vol] 3.8 g/dL Normal 3.4-5.0 [facility] Comment on above: Performed By: #### A 1C #### [facility] [address] [place] [address] Dr. Ellie Smith Albumin/Globulin [Mass ratio] 1.2 {ratio} Normal [facility] Comment on above: Performed By: #### A 1C #### [facility] [address] [place] [address] Dr. Ellie Smith ALP [Catalytic activity/Vol] 59 U/L Normal 46-116 [facility] Comment on above: Performed By: #### A 1C #### [facility] [address] [place] [address] Dr. Ellie Smith ALT [Catalytic activity/Vol] 18 U/L Normal 14-59 [facility] Comment on above: Performed By: #### A 1C #### [facility] [address] [place] [address] Dr. Ellie Smith Anion gap [Moles/Vol] 11.1 mmol/L Normal [facility] Comment on above: Performed By: #### A 1C #### [facility] [address] [place] [address] Dr. Ellie Smith AST [Catalytic activity/Vol] 14 U/L Critically low 15-37 [facility] Comment on above: Performed By: #### A 1C #### [facility] [address] [place] [address] Dr. Ellie Smith Bilirubin [Mass/Vol] 0.3 mg/dL Normal 0.2-1.0 [facility] Comment on above: Performed By: #### A 1C #### [facility] [address] [address] [address] Ellie Smith Calcium [Mass/Vol] 9.1 mg/dL Normal 8.5-10.1 [facility] Comment on above: Performed By: #### A 1C #### [facility] [address] [address] [address] Ellie Smith Chloride [Moles/Vol] 104 mmol/L Normal 98-107 [facility] Comment on above: Performed By: #### A 1C #### [facility] [address] [place] [address] Dr. Ellie Smith CO2 [Moles/Vol] 26.9 mmol/L Normal 21.0-32.0 [facility] Comment on above: Performed By: #### A 1C #### [facility] [address] [place] [address] Dr. Ellie Smith Creatinine [Mass/Vol] 0.84 mg/dL Normal 0.55-1.02 [facility] Comment on above: Performed By: #### A 1C #### [facility] [address] [place] [address] Dr. Ellie Smith EGFR-AF CZECH >60 Normal >=60 [facility] Comment on above: Performed By: #### A 1C #### [facility] [address] [place] [address] Dr. Ellie Smith EGFR-NON AF CZECH >60 Normal >=60 [facility] Comment on above: Performed By: #### A 1C #### [facility] [address] [place] [address] Dr. Ellie Smith Globulin (S) [Mass/Vol] 3.1 g/dL Normal [facility] Comment on above: Performed By: #### A 1C #### [facility] [address] [place] [address] Dr. Ellie Smith Glucose [Mass/Vol] 100 mg/dL Normal 74-106 [facility] Comment on above: Performed By: #### A 1C #### [facility] [address] [place] [address] Dr. Ellie Smith Potassium [Moles/Vol] 4.0 mmol/L Normal 3.5-5.1 [facility] Comment on above: Performed By: #### A 1C #### [facility] [address] [place] [address] Dr. Ellie Smith Protein [Mass/Vol] 6.9 g/dL Normal 6.4-8.2 [facility] Comment on above: Performed By: #### A 1C #### [facility] [address] [place] [address] Dr. Ellie Smith Sodium [Moles/Vol] 138 mmol/L Normal 136-145 [facility] Comment on above: Performed By: #### A 1C #### [facility] [address] [place] [address] Dr. Ellie Smith Urea nitrogen [Mass/Vol] 14.0 mg/dL Normal 7.0-18.0 [facility] Comment on above: Performed By: #### A 1C #### [facility] [address] [place] [address] Dr. Ellie Smith Urea nitrogen/Creatinine [Mass ratio] 16.7 mg/mg Normal [facility] Comment on above: Performed By: #### A 1C #### [facility] [address] [place] [address] Dr. Ellie Smith PROTIMEon 01-18-2022 INR Coag (PPP) [Relative time] 0.95 {INR} Normal [facility] Comment on above: Performed By: #### R EVRT3 #### [facility] [address] [place] [address] Dr. Ellie Smith INR GUIDELINES SEE BELOW Normal [facility] Comment on above: Result Comment: HIMANSHU RED INR: 2.0 - 3.0 CONDITIONS NOT LISTED BELOW 2.5 - 3.5 FOR PROSTHETIC HEART VALVE REPLACEMENT 2.5 - 3.5 RECURRENT THROMBOSIS Performed By: #### R EVRT3 #### [facility] [address] [place] [address] Dr. Ellie Smith PT Coag (PPP) [Time] 10.3 s Normal 9.0-11.6 [facility] Comment on above: Performed By: #### R EVRT3 #### [facility] [address] [address] [address] Ellie Smith PTTon 01-18-2022 aPTT Coag (Bld) [Time] 27.1 s Normal 22.3-36.2 [facility] Comment on above: Performed By: #### R EVRT3 #### [facility] [address] [place] [address] Dr. Ellie Smith TROPONIN, HIGH SENSITIVITYon 01-18-2022 HSTROP 512.5 pg/mL Critically high 4.0-51.3 [facility] Comment on above: Result Comment: CUT- OFF POINTS HAVE BEEN ESTABLISHED BASED ON THE FOURTH UNIVERSAL DEFINITIONS OF MYOCARDIAL INFARCTION. THE UPPER REFERENCE LIMIT (URL) OF TROPONIN, DEFINED THE 99TH PERCENTILE OF cTnI DISTRIBUTION IN A REFERENCE POPULATION, HAS BEEN CONFIRMED THE DECISION THRESHOLD FOR [place] DIAGNOSIS. repeated Performed By: #### A 1C #### [facility] [address] [place] [address] Dr. Ellie Smith XR CHEST 1 Von [...] by: NICOLE SANDERS Date: 2022-01-18 17:38 Normal [facility] Vital Signs Date Time Vital Sign Value Performing Clinician Facility 05-14-2024 13:40-0500 Body height 157.5 cm Priyanka Puentes MD Work Phone: [facility] 05-14-2024 13:40-050 Body mass index (BMI) [Ratio] 27.07 kg/m2 Priyanka Puentes MD Work Phone: [facility] 05-14-2024 13:40-050 Body weight 67.13 kg Priyanka Puentes MD Work Phone: [facility] 05-08-2024 13:40-0500 Body height 153.7 cm Karli Dougherty MD Work Phone: [facility] 05-08-2024 13:40-0500 Body mass index (BMI) [Ratio] 29.77 kg/m2 Karli Dougherty MD Work Phone: [facility] 05-08-2024 13:40-0500 Body weight 70.31 kg Karli Dougherty MD Work Phone: [facility] 05-08-2024 13:40-0500 Diastolic blood pressure 64 mm[Hg] Karli Dougherty MD Work Phone: [facility] 05-08-2024 13:40-0500 Heart rate 64 /min Karli Dougherty MD Work Phone: [facility] 05-08-2024 13:40-0500 Systolic blood pressure 132 mm[Hg] Karli Dougherty MD Work Phone: [facility] 08-31-2023 13:23-0400 Diastolic blood pressure 70 mm[Hg] Karli Dougherty MD Work Phone: [facility] 08-31-2023 13:23-0400 Systolic blood pressure 136 mm[Hg] Karli Dougherty MD Work Phone: [facility] 08-31-2023 12:56-0400 Body height 157.5 cm Karli Dougherty MD Work Phone: [facility] 08-31-2023 12:56-0400 Body mass index (BMI) [Ratio] 27.62 kg/m2 Karli Dougherty MD Work Phone: [facility] 08-31-2023 12:56-0400 Body weight 68.49 kg Karli Dougherty MD Work Phone: [facility] 08-31-2023 12:56-0400 Heart rate 72 /min Karli Dougherty MD Work Phone: [facility] 03-14-2023 12:00-0400 Body temperature 98.1 [degF] MD Priyanka Puentes Work Phone: [facility] 03-14-2023 12:00-0400 Diastolic blood pressure 72 mm[Hg] MD Priyanka Puentes Work Phone: [facility] 03-14-2023 12:00-0400 Heart rate 70 /min MD Priyanka Puentes Work Phone: [facility] 03-14-2023 12:00-0400 Respiratory rate 12 /min MD Priyanka Puentes Work Phone: [facility] 03-14-2023 12:00-0400 SaO2% (BldA) [Mass fraction] 95 % MD Priyanka Puentes Work Phone: [facility] 03-14-2023 12:00-0400 Systolic blood pressure 155 mm[Hg] MD Priyanka Puentes Work Phone: [facility] 03-14-2023 06:00-0400 Body weight 66.3 kg MD Priyanka Puentes Work Phone: [facility] 03-12-2023 20:20-0400 Body height 157.48 cm MD Priyanka Puentes Work Phone: [facility] 03-12-2023 17:59-0400 Diastolic blood pressure 91 mm[Hg] MD Priyanka Puentes Work Phone: [facility] 03-12-2023 17:59-0400 Systolic blood pressure 199 mm[Hg] MD Priyanka Puentes Work Phone: [facility] 03-12-2023 17:33-0400 Heart rate 110 /min MD Priyanka Puentes Work Phone: [facility] 03-12-2023 17:33-0400 Respiratory rate 18 /min MD Priyanka Puentes Work Phone: [facility] 03-12-2023 17:33-0400 SaO2% (BldA) [Mass fraction] 96 % MD Priyanka Puentes Work Phone: [facility] 03-12-2023 13:44-0400 Body height 157.48 cm MD Priyanka Puentes Work Phone: [facility] 03-12-2023 13:44-0400 Body temperature 98.6 [degF] MD Priyanka Puentes Work Phone: [facility] 03-12-2023 13:44-0400 Body weight 63.5 kg MD Priyanka Puentes Work Phone: [facility] 03-07-2023 08:00-0400 Body temperature 97.9 [degF] MD Priyanka Puentes Work Phone: [facility] 03-07-2023 08:00-0400 Diastolic blood pressure 77 mm[Hg] MD Priyanka Puentes Work Phone: [facility] 03-07-2023 08:00-0400 Heart rate 78 /min MD Priyanka Puentes Work Phone: [facility] 03-07-2023 08:00-0400 Respiratory rate 16 /min MD Priyanka Puentes Work Phone: [facility] 03-07-2023 08:00-0400 SaO2% (BldA) [Mass fraction] 98 % MD Priyanka Puentes Work Phone: [facility] 03-07-2023 08:00-0400 Systolic blood pressure 167 mm[Hg] MD Priyanka Puentes Work Phone: [facility] 03-07-2023 06:10-0400 Body weight 64.7 kg MD Priyanka Puentes Work Phone: [facility] 03-06-2023 13:53-0400 Body height 157.48 cm MD Priyanka Puentes Work Phone: [facility] 03-05-2023 21:31-0400 Diastolic blood pressure 65 mm[Hg] MD Priyanka Puentes Work Phone: [facility] 03-05-2023 21:31-0400 Heart rate 85 /min MD Priyanka Puentes Work Phone: [facility] 03-05-2023 21:31-0400 SaO2% (BldA) [Mass fraction] 96 % MD Priyanka Puentes Work Phone: [facility] 03-05-2023 21:31-0400 Systolic blood pressure 145 mm[Hg] MD Priyanka Puentes Work Phone: [facility] 03-05-2023 18:47-0400 Respiratory rate 18 /min MD Priyanka Puentes Work Phone: [facility] 03-05-2023 18:00-0400 Body height 157.48 cm MD Priyanka Puentes Work Phone: [facility] 03-05-2023 18:00-0400 Body temperature 97.1 [degF] MD Priyanka Puentes Work Phone: [facility] 03-05-2023 18:00-0400 Body weight 65.7 kg MD Priyanka Puentes Work Phone: [facility] 02-16-2023 13:38-0400 Body height 157.48 cm Priyanka Puentes Work Phone: [facility] [facility] DO Work Phone: 02-16-2023 13:38-0400 Body mass index (BMI) [Ratio] 26.52 kg/m2 Priyanka Puentes Work Phone: [facility] 250 DO Work Phone: 02-16-2023 13:38-0400 Body surface area Derived from formula 1.67 m2 Priyanka Puentes Work Phone: [facility] [facility] DO Work Phone: 02-16-2023 13:38-0400 Body weight 65.77 kg Priyanka Malcolmbud Work Phone: [facility] 250 DO Work Phone: 02-16-2023 13:38-0400 Diastolic blood pressure 62 mm[Hg] Priyanka Malcolmyer Work Phone: [facility] DO Work Phone: 02-16-2023 13:38-0400 Heart rate 76 /min Priyanka Malcolmyer Work Phone: [facility] [facility] DO Work Phone: 02-16-2023 13:38-0400 Systolic blood pressure 128 mm[Hg] Priyanka Malcolmyer Work Phone: [facility] [facility] DO Work Phone: 08-24-2022 14:35-0400 Body height 157.48 cm Priyanka Malcolmbud Work Phone: [facility] [facility] DO Work Phone: 08-24-2022 14:35-0400 Body mass index (BMI) [Ratio] 27.98 kg/m2 Priyanka Malcolmyer Work Phone: [facility] DO Work Phone: 08-24-2022 14:35-0400 Body surface area Derived from formula 1.71 m2 Priyanka Puentes Work Phone: [facility] 250 DO Work Phone: 08-24-2022 14:35-0400 Body weight 69.4 kg Priyanka Puentes Work Phone: [facility] 250 DO Work Phone: 08-24-2022 14:35-0400 Diastolic blood pressure 54 mm[Hg] Edward Macrina Hemeyer Work Phone: [facility] DO Work Phone: 08-24-2022 14:35-0400 Heart rate 82 /min Edward Macrina Hemeyer Work Phone: [facility] DO Work Phone: 08-24-2022 14:35-0400 Systolic blood pressure 132 mm[Hg] Edward J Hemeyer Work Phone: [facility] 250 DO Work Phone: 03-17-2022 15:30-0400 Body height 157.48 cm Edward Macrina Hemeyer Work Phone: [facility] [address] DO Work Phone: 03-17-2022 15:30-0400 Body mass index (BMI) [Ratio] 30.18 kg/m2 Edward Macrina Hemeyer Work Phone: [facility] [facility] DO Work Phone: 03-17-2022 15:30-0400 Body surface area Derived from formula 1.76 m2 Edward Macrina Hemeyer Work Phone: [facility] [facility] DO Work Phone: 03-17-2022 15:30-0400 Body weight 74.84 kg Edward Macrina Hemeyer Work Phone: [facility] [facility] [place] [facility] DO Work Phone: 03-17-2022 15:30-0400 Diastolic blood pressure 58 mm[Hg] Edward J Hemeyer Work Phone: [facility] [facility] [place] [facility] DO Work Phone: 03-17-2022 15:30-0400 Heart rate 80 /min Edward J Hemeyer Work Phone: [facility] [facility] [place] [facility] DO Work Phone: 03-17-2022 15:30-0400 Systolic blood pressure 130 mm[Hg] Priyanka Malcolmyer Work Phone: [facility] [facility] [place] [facility] DO Work Phone: 02-15-2022 14:39-0400 Body height 157.48 cm Priyanka Malcolmyer Work Phone: [facility] 250 DO Work Phone: 02-15-2022 14:39-0400 Body mass index (BMI) [Ratio] 30.18 kg/m2 Priyanka Malcolmyer Work Phone: [facility] 250 DO Work Phone: 02-15-2022 14:39-0400 Body surface area Derived from formula 1.76 m2 Priyanka Malcolmyer Work Phone: [facility] 250 DO Work Phone: 02-15-2022 14:39-0400 Body weight 74.84 kg Priyanka Puentes Work Phone: [facility] 250 DO Work Phone: 02-15-2022 14:39-0400 Diastolic blood pressure 60 mm[Hg] Priyanka Malcolmyer Work Phone: [facility] 250 DO Work Phone: 02-15-2022 14:39-0400 Heart rate 78 /min Priyanka Puentes Work Phone: [facility] [facility] DO Work Phone: 02-15-2022 14:39-0400 Systolic blood pressure 140 mm[Hg] Priyanka Puentes Work Phone: [facility] [facility] DO Work Phone: 02-15-2022 14:39-0400 10 1 Priyanka Puentes Work Phone: [facility] [facility] DO Work Phone: Comment on above: PHQ-9 02-03-2022 17:15-0400 Diastolic blood pressure 84 mm[Hg] MD Priyanka Puentes Work Phone: [facility] 02-03-2022 17:15-0400 Heart rate 78 /min MD Priyanka Puentes Work Phone: [facility] 02-03-2022 17:15-0400 Respiratory rate 20 /min MD Priyanka Puentes Work Phone: [facility] 02-03-2022 17:15-0400 SaO2% (BldA) [Mass fraction] 94 % MD Priyanka Puentes Work Phone: [facility] 02-03-2022 17:15-0400 Systolic blood pressure 185 mm[Hg] MD Priyanka Puentes Work Phone: [facility] 02-03-2022 16:00-0400 Body temperature 97.8 [degF] MD Priyanka Puentes Work Phone: [facility] 02-03-2022 10:25-0400 Body height 157.48 cm MD Priyanka Puentes Work Phone: [facility] 02-03-2022 10:25-0400 Body weight 77.5 kg MD Priyanka Puentes Work Phone: [facility] 01-21-2022 12:00-0400 Body temperature 97.6 [degF] MD Priyanka Puentes Work Phone: [facility] 01-21-2022 12:00-0400 Diastolic blood pressure 81 mm[Hg] MD Priyanka Puentes Work Phone: [facility] 01-21-2022 12:00-0400 Heart rate 73 /min MD Priyanka Puentes Work Phone: [facility] 01-21-2022 12:00-0400 Respiratory rate 20 /min MD Priyanka Puentes Work Phone: [facility] 01-21-2022 12:00-0400 SaO2% (BldA) [Mass fraction] 94 % MD Priyanka Puentes Work Phone: [facility] 01-21-2022 12:00-0400 Systolic blood pressure 150 mm[Hg] MD Priyanka Puentes Work Phone: [facility] 01-21-2022 05:59-0400 Body weight 79.6 kg MD Priyanka Puentes Work Phone: [facility] 01-19-2022 09:50-0400 Body height 157.48 cm MD Priyanka Puentes Work Phone: [facility] 01-18-2022 00:00-0400 55 1 Priyanka Puentes Work Phone: [facility] DO Work Phone: Comment on above: [id number] 01-01-2022 11:00-0400 Body height 157.48 cm Eva Panda Other [employer] Other 01-01-2022 11:00-0400 Body mass index (BMI) [Ratio] 31.64 kg/m2 Eva Panda Other [employer] Other 01-01-2022 11:00-0400 Body temperature 97.1 [degF] Eva Panda Other [employer] Other 01-01-2022 11:00-0400 Body weight 78.47 kg Eva Panda Other [employer] Other 01-01-2022 11:00-0400 Diastolic blood pressure 101 mm[Hg] Eva Panda Other [employer] Other 01-01-2022 11:00-0400 Respiratory rate 18 /min Eva Panda Other [employer] Other 01-01-2022 11:00-0400 SaO2% (BldA) [Mass fraction] 96 % Eva Panda Other [employer] Other 01-01-2022 11:00-0400 Systolic blood pressure 156 mm[Hg] Eva Panda Other [employer] Other Encounters Encounter Date Encounter Type Care Provider Facility Start: 05-27-2024 End: 05-28-2024 Telephone encounter Priyanka Puentes MD Work Phone: [facility] Start: 05-17-2024 End: 05-17-2024 Clinisync Result Encounter Generic External Data Provider [facility] External Department Unsolicited Start: 05-17-2024 End: 05-17-2024 Clinisync Result Encounter Generic External Data Provider [facility] External Department Unsolicited Start: 05-14-2024 End: 05-14-2024 Bamboo flowsheet Priyanka Puentes MD Work Phone: [facility] Start: 05-14-2024 End: 05-14-2024 Bamboo flowsheet Priyanka Puentes MD Work Phone: [facility] Start: 05-14-2024 End: 05-14-2024 Office outpatient visit 25 minutes Priyanka Puentes MD Work Phone: [facility] Comment on above: Acute right-sided lo w back pain with right-sided sciatica; Right hip pain; Pain of right sacroiliac joint; Overweight (BMI 25.0-29.9) Start: 05-14-2024 End: 05-14-2024 ambulatory PRIYANKA PUENTES Not Available Start: 05-08-2024 End: 05-08-2024 Office outpatient visit 15 minutes Karli Dougherty MD Work Phone: [facility] Comment on above: Status post percutan eous transluminal coronary angioplasty (Primary Dx); Coronary artery disease involving [place] coronary artery of [place] heart without angina pectoris; Mixed hyperlipidemia; Hypertension, benign; Body mass index (BMI) 29.0-29.9, adult; Dyspnea on exertion; Former smoker Start: 05-08-2024 End: 05-08-[address] [facility] Ambulatory Start: 01-22-2024 End: 01-22-2024 ambulatory PRIYANKA PUENTES Not Available Start: 12-13-2023 End: 12-13-2023 ambulatory PRIYANKA PUENTES Not Available Start: 08-31-2023 End: 08-31-2023 Office outpatient visit 15 minutes Karli Dougherty MD Work Phone: [facility] Comment on above: Coronary artery dise ase involving [place] coronary artery of [place] heart without angina pectoris (Primary Dx); Status post percutaneous transluminal coronary angioplasty; Mixed hyperlipidemia; Hypertension, benign; Dyspnea on exertion; BMI 27.0-27.9,adult; Former smoker Start: 08-31-2023 End: 08-31-[address] [facility] Ambulatory Start: 08-30-2023 End: 08-30-2023 ambulatory PRIYANKA PUENTES Not Available Start: 08-08-2023 End: 08-08-2023 ambulatory PRIYANKA PUENTES Not Available Start: 07-21-2023 Clinisync Result Encounter Priyanka Puentes MD Work Phone: [facility] External Department Unsolicited Start: 07-21-2023 Clinisync Result Encounter Priyanka Puentes MD Work Phone: [facility] Unsolicited Start: 07-05-2023 End: 07-05-2023 ambulatory PRIYANKA PUENTES Not Available Start: 03-12-2023 End: 03-14-2023 ambulatory Sima Hdz Facility:[facility] Start: 03-12-2023 End: 03-14-2023 Evaluation and management of inpatient MD Priyanka Puentes Work Phone: [facility] [place] [facility] Work Phone: Start: 03-12-2023 End: 03-14-2023 observation encounter MD Priyanka Puentes Work Phone: [facility] Work Phone: Start: 03-06-[address] Priyanka Puentes Facility:[id number] Start: 03-05-2023 End: 03-07-2023 ambulatory Priyanka Puentes Facility:[facility] Start: 03-05-2023 End: 03-07-2023 Evaluation and management of inpatient MD Priyanka Puentes Work Phone: [facility] [place] Work Phone: Start: 03-05-2023 End: 03-07-2023 observation encounter MD Priyanka Puentes Work Phone: [facility] Work Phone: Start: 03-02-2023 Telephone encounter Priyanka bhatt Work Phone: [facility] [facility] DO Work Phone: Start: 02-16-2023 Office outpatient vi sit 15 minutes Priyanka Puentes Work Phone: [facility] 250 DO Work Phone: Start: 02-16-[address] Priyanka Puentes Facility: Start: 10-05-2022 End: 10-06-[address] PRIYANKA PUENTES . Facility:[facility] Start: 08-24-2022 Office outpatient vi sit 25 minutes Priyanka Puentes Work Phone: [facility] DO Work Phone: Start: 08-24-[address] Priyanka Puentes Facility: Start: 08-15-2022 End: 08-16-[address] ANUM WOODY Facility:[facility] Start: 06-14-2022 End: 07-19-[address] PRIYANKA PUENTES . Facility:[facility] Start: 04-12-2022 End: 04-13-[address] PRIYANKA PUENTES . Facility:[facility] Start: 03-29-2022 End: 03-30-[address] PRIYANKA PUENTES . Facility:[facility] Start: 03-25-2022 Telephone encounter Priyanka bhatt Work Phone: [facility] [facility] DO Work Phone: Start: 03-17-2022 Office outpatient vi sit 25 minutes Priyanka Puentes Work Phone: [facility] 600 DO Work Phone: Start: 03-17-2022 ambulatory Ms. Khanh Barrios Lester Hung Facility: Start: 02-24-2022 End: 06-14-[address] PRIYANKA PUENTES . 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 Facility: Start: 01-01-2022 End: 01-01-2022 ambulatory Eva Amarilys Other [employer] Other Start: 01-01-2022 Office outpatient ne w 20 minutes Eva Panda [facility] Procedures Date Procedure Procedure Detail Performing Clinician Start: 05-17-2024 ALL LIPID PROFILE (FASTING) Generic External Data Provider Start: 05-17-2024 [facility] CMP (CMP) (FOR [facility] USE) Generic External Data Provider Start: 07-21-2023 MLR HEMOGLOBIN A1C Maine Puentes [...] of stent i n femoral vein Priyanka Schrader Yunbud Work Phone: Reconstruction of bi le duct Priyanka Puentes Work Phone: SARS Antigen (LFIA) MD Medhat Puentes Work Phone: Tonsillectomy Priyanka Schrader Claudette er Work Phone: NEGATED: Highlighted row has not occurred! Total colonoscopy Priyanka Puentes Work Phone: Plan of Treatment Date Care Activity Detail Author Start: 03-28-2025 Glaucoma screening Diabetes: Retinopathy Screening [facility] Start: 12-11-2024 End: 12-11-2024 Patient encounter procedure 12/11/2024 1:30 PM EDT Office Visit [facility] [address] [facility] [address] [place] [id number] Karli Dougherty MD [address] [place] [address] [address], [address] [place] [address] [facility] Start: 08-30-2024 Medicare Annual Wellness Visit Medicare Annual Wellness Visit (AWV) [facility] Start: 07-29-2024 End: 07-29-2024 Patient encounter procedure [facility] Start: 07-15-2024 End: 07-15-2024 Patient encounter procedure [facility] Start: 05-14-2024 End: 05-14-2024 Patient encounter procedure 05/14/2024 1:45 PM EST Office Visit [facility] [address] [place] [address] Priyanka Puentes MD [address] [place] [address] (Fax) Arrived [facility] Comment on above: Arrived Start: 05-08-2024 End: 05-08-2025 Alanine aminotransferase [Enzymatic activity/volume] in Serum or Plasma by With P-5'-P Alanine Aminotransferase Lab Routine Mixed hyperlipidemia Expected: 05/08/2024 (Approximate), Expires: 05/08/2025 [facility] Service Area Work Phone: Comment on above: Expected: 05/08/2024 (Approximate), Expi res: 05/08/2025 Start: 05-08-2024 End: 05-08-2025 Aspartate aminotransferase [Enzymatic activity/volume] in Serum or Plasma by With P-5'-P Aspartate Aminotransferase Lab Routine Mixed hyperlipidemia Expected: 05/08/2024 (Approximate), Expires: 05/08/2025 [facility] Work Phone: Comment on above: Expected: 05/08/2024 (Approximate), Expi res: 05/08/2025 Start: 05-08-2024 End: 05-08-2025 Comprehensive metabolic 2000 panel - Serum or Plasma Comprehensive Metabolic Panel Lab Routine Hypertension, benign Expected: 05/08/2024 (Approximate), Expires: 05/08/2025 [facility] Work Phone: Comment on above: Expected: 05/08/2024 (Approximate), Expi res: 05/08/2025 Start: 05-08-2024 End: 05-08-2025 Lipid 1996 panel - Serum or Plasma Lipid Panel Lab Routine Mixed hyperlipidemia Expected: 05/08/2024 (Approximate), Expires: 05/08/2025 [facility] Work Phone: Comment on above: Expected: 05/08/2024 (Approximate), Expi res: 05/08/2025 Start: 05-08-2024 End: 05-08-2024 Patient encounter procedure 05/08/2024 1:40 PM EST Office Visit [facility] [address] [place] [address] Karli Dougherty MD [address] [facility] [address], [address] [place] [address] [facility] Start: 08-31-2023 FUV, Provider: Karli Dougherty, Status: Pen, Time: 1:00 PM FUV, Provider: Karli Dougherty, Status: Pen, Time: 1:00 PM [facility] 250 DO Work Phone: Start: 08-08-2023 End: 08-08-2023 Patient encounter procedure 08/08/2023 10:00 AM EST Office Visit [facility] [address] [place] [address] Priyanka Puentes MD [address] [place] [address] [facility] Start: 03-14-2023 [facility] Start: 03-12-2023 Referral to Exotic Dancer [facility] Start: 03-12-2023 Hospital admission [facility] Start: 03-12-2023 Physical therapy procedure [facility] Start: 03-12-2023 Referral to occupational therapist [facility] Start: 03-12-2023 [facility] Start: 03-07-2023 [facility] Start: 03-06-2023 Comprehensive metabolic 2000 panel - Serum or Plasma [facility] Start: 03-06-2023 Doppler ultrasonography of bilateral carotid arteries US carotid doppler BI [facility] Start: 03-06-2023 Lipid panel [facility] Start: 03-06-2023 [facility] Start: 03-05-2023 Hospital admission [facility] Start: 03-05-2023 Physical therapy procedure [facility] Start: 03-05-2023 Referral to occupational therapist [facility] Start: 03-05-2023 [facility] Start: 03-05-2023 [facility] Start: 02-16-2023 FUV, Provider: Karli Dougherty, Status: Pen, Time: 1:20 PM FUV, Provider: Karli Dougherty, Status: Pen, Time: 1:20 PM [facility] 250 DO Work Phone: Start: 01-27-2023 Urine screening for protein Diabetes: Urine Protein Screening [facility] Start: 11-15-2022 Hemoglobin A1c measurement Diabetes: Hemoglobin A1C [facility] Start: 08-23-2022 Medicare Annual Wellness (AWV) Medicare Annual Wellness (AWV) [facility] Start: 07-06-2022 FUV, Provider: Karli Dougherty, Status: Pen, Time: 2:20 PM FUV, Provider: Karli Dougherty, Status: Pen, Time: 2:20 PM [facility]-[place] 600 DO Work Phone: Start: 03-17-2022 FUV, Provider: Khanh Mercado, Status: Pen, Time: 3:30 PM FUV, Provider: Khanh Mercado, Status: Pen, Time: 3:30 PM [facility]-[place] 250 DO Work Phone: Start: 02-03-2022 [facility] Work Phone: Start: 02-03-2022 Hospital admission [facility] Work Phone: Start: 02-03-2022 CL PTCA Ea Add LAD CL PTCA Ea Add LAD [facility] Start: 02-03-2022 CL Stent 1st Vessel LAD GAYATHRI CL Stent 1st Vessel LAD GAYATHRI [facility] Start: 02-03-2022 [facility] Start: 02-03-2022 End: 02-03-2022 Admission to same day surgery center Departed Surgical Day Care [facility] 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 Start: 02-01-2022 End: 02-01-2022 Patient encounter procedure Departed Clinical [facility] Dnx[facility]Wyc[facility]kygcm[facility] Testing Start: 01-21-2022 [facility] Work Phone: Start: 01-18-2022 Referral to internet database specialist [facility] Work Phone: Start: 01-18-2022 Hospital admission [facility] Work Phone: Start: 01-18-2022 Dilation of Coronary Artery, Two Arteries with Four or More Drug-eluting Intraluminal Devices, Percutaneous Approach Dilation of Coronary Artery, Two Arteries with Four or More Drug-eluting Intraluminal Devices, Percutaneous Approach [facility] Start: 01-18-2022 Fluoroscopy of Left Heart using Low Osmolar Contrast Fluoroscopy of Left Heart using Low Osmolar Contrast [facility] Start: 01-18-2022 Fluoroscopy of Multiple Coronary Arteries using Low Osmolar Contrast Fluoroscopy of Multiple Coronary Arteries using Low Osmolar Contrast [facility] Start: 01-18-2022 Measurement of Cardiac Sampling and Pressure, Left Heart, Percutaneous Approach Measurement of Cardiac Sampling and Pressure, Left Heart, Percutaneous Approach [facility] Start: 10-16-2018 Urine screening for protein Diabetes: Urine Protein Screening [facility] Start: 02-21-1992 Zoster Vaccines (1 of 2) Zoster Vaccines (1 of 2) [facility] Start: 02-21-1964 DTaP/Tdap/Td Vaccines (1 - Tdap) DTaP/Tdap/Td Vaccines (1 - Tdap) [facility] Start: 02-21-1960 Diabetes mellitus screening Diabetes Screening [facility] Start: 1942 Lipid panel Lipid Panel [facility] Start: 1940 Medicare Annual Wellness Visit Medicare Annual Wellness Visit (AWV) [facility] Start: 1942 Thyroid stimulating hormone measurement TSH Level [facility] Patient Education [facility] Work Phone: Patient referral [facility] Work Phone: Immunizations Immunization Date Immunization Notes Care Provider Fa cili 04-23-2024 ABRYSVO - Respirator y syncytial virus (RSV), vaccine, bivalent, protein subunit RSV prefusion F, diluent reconstituted, 0.5 mL, PF Priyanka Puentes MD Work Phone: [facility] 04-17-2024 influenza, high dose seasonal, preservative-free Priyanka Puentes MD Work Phone: [facility] 05-09-2023 Influenza, High-dose Seasonal, Quadrivalent, Preservative Free Priyanka Puentes MD Work Phone: [facility] 05-17-2022 Fluzone High-Dose Quadrivalent 0.7 ML Intramuscular Suspension Prefilled Syringe Priyanka Puentes Work Phone: [facility] 250 DO Work Phone: 04-29-2022 Moderna Bivalent Saenz ster Vaccination Priyanka Puentes MD Work Phone: [facility] 04-29-2022 Pfizer COVID-19 Vac Bivalent 30 MCG/0.3ML Intramuscular Suspension Priyanka Puentes Work Phone: [facility] Work Phone: 04-19-2021 influenza, injectabl e, quadrivalent, preservative free Priyanka Puentes Work Phone: [facility] 03-17-2021 Pfizer-BioNTech COVI D-19 Vacc 30 MCG/0.3ML Intramuscular Suspension Priyanka Puentes Work Phone: [facility] 250 DO Work Phone: 03-16-2021 Pfizer Purple Cap SARS-CoV-2 Vaccination Priyanka Puentes MD Work Phone: [facility] 07-31-2020 COVID-19 Bob Ordonez (Pfizer) MD Priyanka Puentes Work Phone: [facility] 07-30-2020 Pfizer Purple Cap SARS-CoV-2 Vaccination Priyanka Puentes MD Work Phone: [facility] 07-08-2020 Pfizer-BioNTech COVI D-19 Vacc 30 MCG/0.3ML Intramuscular Suspension Priyanka Puentes Work Phone: [facility] 250 DO Work Phone: 07-07-2020 Pfizer Purple Cap SARS-CoV-2 Vaccination Priyanka Puentes MD Work Phone: [facility] 07-03-2020 COVID-19 Bob Ordonez (Pfizer) MD Priyanka Puentes Work Phone: [facility] 03-26-2020 Seasonal trivalent influenza vaccine, adjuvanted, preservative free Priyanka Schrader Hemeyer Work Phone: [place] [address] DO Work Phone: 03-25-2020 Seasonal trivalent influenza vaccine, adjuvanted, preservative free Priyanka Puentes MD Work Phone: [facility] 04-09-2019 influenza, injectabl e, quadrivalent, preservative free Priyanka Puentes MD Work Phone: [facility] 04-09-2019 Seasonal trivalent influenza vaccine, adjuvanted, preservative free Priyanka Schrader Hemeyer Work Phone: [place] [address] DO Work Phone: 04-03-2018 influenza, injectabl e, quadrivalent, preservative free Edzeeshan J Hemeyer Work Phone: [place] [address] DO Work Phone: 04-02-2018 influenza, injectabl e, quadrivalent, preservative free Priyanka Puentes MD Work Phone: [facility] 04-02-2018 pneumococcal conjuga te vaccine, 13 valent Edward J Hemeyer Work Phone: [place] [address] DO Work Phone: 03-20-2017 pneumococcal conjuga te vaccine, 13 valent Edward J Hemeyer Work Phone: [place] [address] DO Work Phone: 03-13-2017 influenza, seasonal, injectable Edward J Hemeyer Work Phone: [place] [address] DO Work Phone: 04-14-2016 influenza, injectabl e, quadrivalent, contains preservative Edward J Hemeyer Work Phone: [place] [address] DO Work Phone: 04-12-2016 influenza, injectabl e, quadrivalent, preservative free Edzeeshan Hemeyer MD Work Phone: [facility] 04-17-2015 influenza, injectabl e, quadrivalent, preservative free Priyanka Puentes MD Work Phone: [facility] 04-03-2015 influenza, seasonal, injectable Priyanka Puentes Work Phone: [facility] 250 DO Work Phone: 05-20-2009 pneumococcal polysaccharide vaccine, 23 valent Priyanka Puentes Work Phone: [facility] 250 DO Work Phone: Payers Date Payer Category Payer Private Health Insurance [employer] Member Subscriber Plan / Payer (Effective 2021-Present) Name: Steven Harding Relation to Subscriber: Self Name: Steven Harding Payer ID: Not on file Type: Not on file Address: [place] [id number] 2021 Unknown 2007 Medicare [id number] 1959 Medicare [id number] 1959 Medicare [id number] [id number] 1942 Unknown [id number] 2.16.840.1.012338.3.579.2. 593 1942 Unknown [id number] 2.16.840.1.367206.3.579.2. 593 1942 Unknown [id number] 2.16.840.1.637196.3.579.2. 593 1942 Unknown [id number] 2.16.840.1.555198.3.579.2. 593 1942 Unknown [id number] 2.16.840.1.228282.3.579.2. 593 1942 Unknown [id number] 2.16.840.1.115557.3.579.2. 593 1942 Unknown [id number] 2.16.840.1.378503.3.579.2. 593 1942 Unknown [id number] 2.16.840.1.870167.3.579.2. 593 1942 Unknown [id number] 2.16.840.1.082859.3.579.2. 356 1942 Unknown [id number] 2.16.840.1.957339.3.579.2. 356 1942 Unknown [id number] 2.16.840.1.020076.3.579.2. 356 1942 Unknown [id number] 2.16.840.1.101533.3.579.2. 356 1942 Unknown [id number] 2.16.840.1.621353.3.579.2. 1244 1942 Unknown [id number] 2.16.840.1.100113.3.579.2. 1244 1942 Unknown [id number] 2.16.840.1.045514.3.579.2. 1259 1942 Unknown [id number] 2.16.840.1.956274.3.579.2. 1259 1942 Unknown [id number] 2.16.840.1.379861.3.579.2. 1259 1942 Unknown [id number] 2.16.840.1.726364.3.579.2. 1259 1942 Unknown [id number] 2.16.840.1.523362.3.579.2. 1259 1942 Unknown [id number] 2.16.840.1.780836.3.579.2. 1259 Medicare Medicare Outpatient [id number] Self-pay Self Pay [id number] Unknown [id number] Unknown [place] [facility] [id number] Social History Date Type Detail Facility Start: 02-14-2023 End: 08-30-2023 Sex Assigned At [facility] Start: 02-03-2022 End: 08-08-2023 Tobacco smoking status [facility] Ex-smoker (finding) [facility] Start: 1940 Sex Assigned At Female F [facility] Start: 02-14-2023 End: 08-30-2023 Former smoker Former smoker [facility] Comment on above: nicotine lozenges; Start: 03-12-2023 Tobacco smoking stat us [facility] Smoker (finding) [facility] History of tobacco use Cigarette Smoker [facility] Start: 07-05-2023 End: 05-14-2024 Alcohol intake Ex-drinker (finding) [facility] Within [...] a typical day? Patient does not drink [facility] Do you feel stress - tense, restless, nervous, or anxious, or unable to sleep at night because your mind is troubled all the time - these days [OSQ] Not at all [facility] (I/We) worried wheth er (my/our) food would run out before (I/we) got money to buy more. Never true [facility] Start: 02-14-2023 Tobacco Comment Last smoked : 1-5 years [facility] Start: 01-18-2023 Alcohol Comment Caffeine intak e: 3 cups decaf per day [facility] Start: 1940 Sex Assigned At Not on file N [facility] Start: 08-08-2023 End: 08-31-2023 Tobacco use and exposure Smokeless tobacco non-user [facility] Work Phone: Start: 08-31-2023 End: 05-08-2024 Alcohol intake Lifetime non-drinker (finding) [facility] Work Phone: Start: 08-21-2023 End: 05-08-2024 Exposure to SARS-CoV-2 (event) Not sure [facility] Medical Equipment Procedure Code Equipment Code Equipment Original Text Equipment Identifier Dates [id number] FDA Start: 01-20-2022 Drug-eluting cor onary artery stent, qey-nykikkjgjxnrr-padqw er-coated ()[id number] FDA Start: 01-20-2022 Drug-eluting cor onary artery stent, sdm-vchlzyxrvgwro-fwzyl er-coated ()[id number] FDA Start: 01-20-2022 Drug-eluting cor onary artery stent, vjj-gvimzadrgounj-xepty er-coated ()[id number] [id number] FDA Start: 01-20-2022 Drug-eluting cor onary artery stent, xid-vnyafyhbrfpyt-nrjxh er-coated ()[id number] FDA Start: 02-03-2022 [id number] FDA Start: 01-20-2022 [id number] FDA Start: 01-20-2022 [id number] FDA Start: 01-20-2022 [id number] FDA Start: 01-20-2022 [id number] FDA Start: 01-20-2022 [id number] FDA Start: 01-20-2022 Goals Date Patient Goal Desired Activity /State Functional Status Date Assessment Result Facility 03-14-2023 Functional status Patient at Baseline [facility] Work Phone: 03-07-2023 Functional status Patient at Baseline [facility] Work Phone: 03-05-2023 Functional status Disability Sta tus Patient at Baseline [facility] Work Phone: 02-15-2022 PHQ-9 [id number] Moderate (10-14) [facility] 250 DO Work Phone: 02-03-2022 Functional status Patient at Baseline [facility] Work Phone: 01-21-2022 Functional status Patient at Baseline [facility] Work Phone: Mental Status Date Assessment Result Facility 03-14-2023 Cognitive function Cognitive Sta tus Patient at Baseline [facility] Work Phone: 03-07-2023 Cognitive function Cognitive Sta tus Patient at Baseline [facility] Work Phone: 02-03-2022 Cognitive function Cognitive Sta tus Patient at Baseline [facility] Work Phone: 01-21-2022 Cognitive function Cognitive Sta tus Patient at Baseline [facility] Work Phone: Clinical Notes 08-24-2021 to 05-28-2024 Telephone Encounter - Priyanka Puentes MD - 05/28/2024 8:27 AM ESTTelephone Encounter - Priyanka Puentes MD - 05/28/2024 8:27 AM ESTTelephone Encounter - Kathia Nieves - 05/27/2024 11:52 AM EST Note Date & Type Note Facility 05-28-2024 Telephone encounter Note Called [facility] sOMEHOW THEY DO NOT HAVE THIS ORDER AND THERE WAS NO rx DONE. REPRINTED EXSISTING ORDER AND lm ON Steven'S PHONE THAT IT WOULD BE FAXED OVER THERE. [facility] 05-28-2024 Miscellaneous Notes Called [facility] sOMEHOW THEY DO NOT HAVE THIS ORDER AND THERE WAS NO rx DONE. REPRINTED EXSISTING ORDER AND lm ON Steven'S PHONE THAT IT WOULD BE FAXED OVER THERE. Called and talked with her. Pain relief with 2 gabapentin 100mg. Reviewed lumbar X ray with her, after preview no hip x ray. Will contact [facility] tomorrow and try to get results. Steven left a message on the nurse line. She states she has not heard back on her hip and back xray and that she is still in a lot of pain. She is requesting a call back. documented in this encounter [facility] 05-27-2024 Telephone encounter Note Called and talked with her. Pain relief with 2 gabapentin 100mg. Reviewed lumbar X ray with her, after preview no hip x ray. Will contact [facility] tomorrow and try to get results. [facility] 05-27-2024 Telephone encounter Note Steven left a message on the nurse line. She states she has not heard back on her hip and back xray and that she is still in a lot of pain. She is requesting a call back. [facility] 05-14-2024 History of Presen t illness Narrative Images from the original note were not included. Patient ID: Steven Harding is a 84 y.o. female who presents for: Back Pain Patient who presents for evaluation of low back pain. The patient has had no prior back problems. Symptoms have been present for 5 weeks and are gradually worsening. Onset was related to / precipitated by no known injury. The pain is located in the right lumbar area, right sacroiliac area, right gluteal area, or radiating to right leg(s) and does not radiate elswhere. The pain is described as aching, stiffness, and throbbing and occurs all day. She rates her pain as a 8 on a scale of 0-10. Pt states she went to chiropractor to put her hip back in and then the next day she felt the sciatica. Review of Systems Constitutional: Negative for chills and fever. Respiratory: Negative for cough, shortness of breath and wheezing. Cardiovascular: Negative for chest pain and palpitations. Gastrointestinal: Negative for abdominal pain. Genitourinary: Negative for frequency and urgency. Objective The patient is pleasant and in no acute distress, no outwardly visible signs of pain. The patient does not appear to have a gross neurologic deficit. The patient has good eye contact and clear speech Has a essentially a normal but slightly widened gait. She is able to get in and out of the chair and on and off the table although the latter did cause her some pain. Brief neurologic screening demonstrates symmetrical lower extremities with strength intact. DTR intact and symmetrical. Sensation grossly intact. Sitting straight leg raising is positive on the ipsilateral side. She does not really have significant lumbar paraspinal tenderness there is some mild hypertonicity. The right sacroiliac joint is tender to palpation. The right sciatic notch is somewhat tender to palpation. The right hip seems pretty stable it is nontender over it and it is nontender to internal rotation or cross leg movement. Visit Vitals Ht 5' 2 Wt 148 lb BMI 27.07 kg/m OB Status Postmenopausal Smoking Status Former BSA 1.71 m Allergies Allergen Reactions Calcium Citrate Other Reaction(s): digestive upset Cephalexin Hives Ciprofloxacin Hcl Hives Clindamycin Diarrhea Codeine Unknown Diphenhydramine Other Reaction(s): loss of muscle control Erythromycin Base Hives Minocycline Diarrhea Current Outpatient Medications on File Prior to Visit Medication Sig Dispense Refill albuterol (2.5 MG/3ML) 0.083% nebulizer solution Take 3 mL (2.5 mg) by nebulization every 6 (six) hours if needed for wheezing 75 mL 11 albuterol HFA 90 mcg/act inhaler Inhale 2 puffs every 4 (four) hours if needed for shortness of breath 18 g 3 amLODIPine (Norvasc) 5 MG tablet Take 1 tablet (5 mg) by mouth in the morning. 90 tablet 1 aspirin EC 81 MG EC tablet Take 81 mg by mouth 1 (one) time each day at the same time. atorvastatin (Lipitor) 80 MG tablet Take 80 mg by mouth 1 (one) time each day at the same time. B Complex Vitamins (vitamin B complex) tablet Take 1 tablet by mouth Daily clopidogrel (Plavix) 75 MG tablet Take 75 mg by mouth 1 (one) time each day at the same time. CRANBERRY CONCENTRATE PO Take 1 tablet by mouth Daily levothyroxine (Synthroid) 112 MCG tablet Take 1 tablet (112 mcg) by mouth in the morning. Take before meals. 90 tablet 3 magnesium oxide (Mag-Ox) 400 MG tablet Take 400 mg by mouth in the morning. metFORMIN (Glucophage) 850 MG tablet Take 1 tablet (850 mg) by mouth in the morning and 1 tablet (850 mg) in the evening. Take with meals. 180 tablet 1 metoprolol tartrate (Lopressor) 25 MG tablet Take 0.5 tablets (12.5 mg) by mouth every 12 (twelve) hours 30 tablet 0 naproxen sodium (Aleve) 220 MG tablet Take 220 mg by mouth 2 (two) times a day as needed. Nebulizers (Compressor Nebulizer) misc 1 Units in the morning and 1 Units at noon and 1 Units in the evening and 1 Units before bedtime. 1 each 0 nitroglycerin (Nitrostat) 0.[address] 0.4 mg under the tongue. oxybutynin (Ditropan) 5 MG tablet Take 5 mg by mouth in the morning and 5 mg before bedtime. potassium chloride CR (K-Tab) 20 MEQ ER tablet Take 20 mEq by mouth Daily Do not crush, chew, or split. Potassium Citrate,Elemental K, 99 MG capsule Take 1 Capful by mouth in the morning. No current facility-administered medications on file prior to visit. 1. Acute right-sided low back pain with right-sided sciatica Acute problem. No injury. We discussed some options which include referral and or further diagnostic evaluation, versus a trial of treatment. She would prefer the trial of treatment. In prescribing a new medication consideration of the following encompasses moderate decision making: the current prescriptions and supplements, the current allergies and medication intolerances, the current medical conditions, and potential drug interactions. Risks, benefits, and reason for starting their medication were discussed. The patient was given a chance to ask questions today and all questions were answered. The patient is to contact us if any other questions arise or if any problems occur with the adjustment in their medication. - predniSONE (Deltasone) 10 MG tablet; Every 2 day tapering dose; 5,5,4,4,3,3,2,2,1,1,0.5,0.5 Dispense: 31 tablet; Refill: 0 - nabumetone (Relafen) 500 MG tablet; Take 1 tablet (500 mg) by mouth in the morning and 1 tablet (500 mg) before bedtime. Dispense: 60 tablet; Refill: 0 2. Right hip pain - predniSONE (Deltasone) 10 MG tablet; Every 2 day tapering dose; 5,5,4,4,3,3,2,2,1,1,0.5,0.5 Dispense: 31 tablet; Refill: 0 3. Pain of right sacroiliac joint - predniSONE (Deltasone) 10 MG tablet; Every 2 day tapering dose; 5,5,4,4,3,3,2,2,1,1,0.5,0.5 Dispense: 31 tablet; Refill: 0 4. Overweight (BMI 25.0-29.9) She will call us back if she is not improving. documented in this encounter [facility] 05-08-2024 History of Presen t illness Narrative Subjective Steven Harding is a 84 y.o. female Chief Complaint Follow-up HPI Patient is here for follow-up to management for coronary artery disease previous PCI to the RCA and circumflex, hypertension hyperlipidemia. Since last time I saw her she denies any cardiac complaint of chest pain, palpitation, lightheadedness, dizziness or syncope. She described some pain in her leg related to sciatica. She is scheduled to take some prednisone in the near future. No recent lab available. Assessment 1. Coronary artery disease with prior presentation myocardial infarction and PCI to the RCA and left circumflex doing well with no recurrence of her symptoms. She described functional class I with no angina 2. Hypertension controlled. Medication was adjusted. Controlled on current management with metoprolol and amlodipine patient describes some sciatica she is scheduled to take some prednisone in the near future 3. Hyperlipidemia no recent lab 4. Mildly overweight 5. Previous complaint of shortness of breath resolved 6. Social stress due to the passing of her son in law Plan 1. The patient was advised to continue present medical therapy unchanged. In the future we may consider switching amlodipine back to losartan considering she is borderline diabetic 2. I gave the patient an order to do her lab work 3. I we will see her back in the office in 8 months and follow-up Review of Systems All other systems reviewed and are negative. Vitals: 05/08/24 1340 BP: 132/64 BP Location: Left arm Patient Position: Sitting Pulse: 64 Weight: 70.3 kg (155 lb) Height: 1.537 m (5' 0.5 ) Objective Physical Exam Constitutional: Appearance: Normal [...] at bedtime., Disp: 90 tablet, Rfl: 3 clopidogrel (Plavix) 75 mg tablet, Take 1 tablet (75 mg) by mouth once daily., Disp: 90 tablet, Rfl: 3 cranberry 500 mg capsule, Take 1 capsule by mouth early in the morning.., Disp: , Rfl: levothyroxine (Synthroid, Levoxyl) 112 mcg tablet, Take 1 tablet (112 mcg) by mouth once daily., Disp: , Rfl: magnesium oxide 500 mg magnesium tablet, Take 1 tablet (500 mg) by mouth early in the morning.., Disp: , Rfl: metFORMIN (Glucophage) 850 mg tablet, Take 1 tablet (850 mg) by mouth 2 times daily (morning and late afternoon)., Disp: , Rfl: metoprolol tartrate (Lopressor) 25 mg tablet, Take 1 tablet (25 mg) by mouth 2 times a day., Disp: 180 tablet, Rfl: 3 nitroglycerin (Nitrostat) 0.4 mg SL tablet, Place 1 tablet (0.4 mg) under the tongue if needed., Disp: , Rfl: oxybutynin (Ditropan) 5 mg tablet, 1 tablet (5 mg) 2 times a day., Disp: , Rfl: potassium citrate 99 mg capsule, Take 1 Capful by mouth early in the morning.., Disp: , Rfl: vitamin B complex tablet, Take 1 tablet by mouth once daily., Disp: , Rfl: clopidogrel (Plavix) 75 mg tablet, TAKE 1 TABLET BY MOUTH DAILY, Disp: 90 tablet, Rfl: 3 Assessment/Plan 1. Status post percutaneous transluminal coronary angioplasty 2. Coronary artery disease involving [place] coronary artery of [place] heart without angina pectoris Follow Up In Cardiology Follow Up In Cardiology 3. Mixed hyperlipidemia Alanine Aminotransferase Aspartate Aminotransferase Lipid Panel Alanine Aminotransferase Aspartate Aminotransferase Lipid Panel 4. Hypertension, benign Comprehensive Metabolic Panel Comprehensive Metabolic Panel 5. Body mass index (BMI) 29.0-29.9, adult 6. Dyspnea on exertion 7. Former smoker Scribe Attestation By signing my name below, Katharina Maradiaga LPN, Scribe attest that this documentation has been [...] discussion and plan. documented in this encounter [facility] Work Phone: 05-08-2024 Instructions Katharina Seay LPN - 05/08/2024 1:40 PM EST Please bring all medicines, vitamins, and herbal supplements with you when you come to the office. Prescriptions will not be filled unless you are compliant with your follow up appointments or have a follow up appointment scheduled as per instruction of your physician. Refills should be requested at the time of your visit. BMI was above normal measurement. Current weight: 70.3 kg (155 lb) Weight change since last visit (-) denotes wt loss 4 lbs Weight loss needed to achieve BMI 25: 25.1 Lbs Weight loss needed to achieve BMI 30: -0.9 Lbs Provided instructions on dietary changes Provided instructions on exercise. documented in this encounter [facility] Work Phone: 08-31-2023 History of Presen t illness Narrative Subjective Steven Harding is a [...] 3 Assessment/Plan 1. Coronary artery disease involving [place] coronary artery of [place] heart without angina pectoris Follow Up In Cardiology 2. Status post percutaneous transluminal coronary angioplasty 3. Mixed hyperlipidemia atorvastatin (Lipitor) 80 mg tablet 4. Hypertension, benign 5. Dyspnea on exertion 6. BMI 27.0-27.9,adult 7. Former smoker Scribe Attestation By signing my name below, I, Murray Tejeda LPN attest that this documentation has been prepared [...] discussion and plan. documented in this encounter [facility] Work Phone: 08-31-2023 Instructions Ruba Chowdhury [...] instructions on exercise. documented in this encounter [facility] Work Phone: 03-13-2023 Progress note Note Date/Time March 13, 2023 4:47pm [facility] [address] [place] [address] Hospitalist Progress Note Signed Patient: Steven Harding MR#: [id number] : 1940 Acct:[id number] Age/Sex: 83 / F Adm Date: 3 Loc: Room: [address] [place] [address] Type: ADM INOo Attending Dr: Rufus Ricks [...] Dose Route Start Last Admin Trade Name Rohit PRN Reason Stop Dose Admin Acetaminophen 650 [...] Hyponatremia of 128. TSH was suppressed on [place] Thyroid and has been checked twice with [...] <Electronically signed by Rufus Ricks DO> 03/13/23 7804 [facility] Work Phone: 1(144) 949-185310-01-2023 History and physical note Author Sima Hdz [facility] March 12, 2023 7:49pm Note Date/Time March 12, 2023 7: 50pm [facility] [address] [place] [address] Hospitalist H&P Signed Patient: Steven Harding MR#: [id number] : 1940 Acct:[id number] Age/Sex: 83 / F Adm Date: 3 Loc: Room: [address] [place] [address] Type: ADM IN Attending Dr: Sima Hdz [...] negative unless noted below or in HPI [facility] Medical History Aneurysm Aortic. Being monitored. Per pt found at [facility] during last visit there in January [...] Confirmed 03/05/23] thyroid (pork) 60 mg tablet (CIGARETTE MACH[employer]ES MECHANIC Thyroid) 60 mg PO BID 01/18/22 [History [...] % (Auto) 13.2 % (.) 03/12/23 14:45 [place] % (Auto) 5.1 % (.) 03/12/23 14:45 Eos % (Auto) 2.0 % (.) 03/12/23 14:45 Baso % (Auto) 0.4 % (.) 03/12/23 14:45 Nucleat RBC Rel Count 0.0 /100 WBC (0-0.5) 03/12/23 14:45 Neut # (Auto) 7.0 x10E3/uL (1.8-7.7) 03/12/23 14:45 Lymph # (Auto) 1.2 x10E3/uL (1.00-4.8) 03/12/23 14:45 [place] # (Auto) 0.5 x10E3/uL (0.0-0.8) 03/12/23 14:45 [...] pH 7.5 (5.0-9.0) 03/12/23 15:55 Ur Specific [place] 1.010 (1.001-1.030) 03/12/23 15:55 Urine Protein Negative [...] Hyponatremia of 128. TSH was suppressed on [place] Thyroid and has been checked twice with [...] by Sima Hdz MD> 03/12/231948 [facility] Work Phone: 1(398) 973-560909-26-2023 Discharge summary Author Chuck Chacon [facility] March 07, 2023 9:30am Note Date/Time March 07, 2023 9:30am [facility] [address] [place] [address] Discharge Summary Signed Patient: Steven Harding MR#: [id number] : 1940 Acct:[id number] Age/Sex: 83 / F Adm Date: 3 Loc: Room: [address] [place] [address]: Chuck Chacon MD Copies to: [...] above Summary Hospital Course Hospital course: Ms. Hardign is an 83yo F history of CAD status post stent, HTN, hypothyroidism who presented to the emergency department with intermittent episodes of dizziness/lightheadedness. Patient has been having disequilibrium and presyncope type symptoms over the past 3 weeks. She had been to vestibular physical therapy and felt that her symptoms became worse after that. She had also been attempted on scopolamine patch, and her internet database specialist had decreased herlosartan dose. She presented again [...] follow-up with her primary care physician and internet database specialist as an outpatient for further management. She may be reintroduced to some of her cardioprotective antihypertensives in the future if deemed reasonable by her internet database specialist and primary care physician. 35 minutes spent [...] TABLET BY MOUTH TWICE DAILY thyroid (pork) [CIGARETTE MACHINES MECHANIC Thyroid] 60 mg tablet 60 mg PO [...] if needed.) Documented By: Chuck Chacon MD 921 Signed By: <Electronically signed by Chuck Chacon MD> 03/07/23929 [facility] Work Phone: 1(918) 574-404109-25-2023 Progress note Author Chuck Chacon [facility] March 06, 2023 1:51pm Note Date/Time March 06, 2023 1:38pm [facility] [address] [place] [address] Hospitalist Progress Note Signed Patient: Steven Harding MR#: [id number] : 1940 Acct:[id number] Age/Sex: 83 / F Adm Date: 3 Loc: 3T Room: [address] [place] [address] Type: ADM INOo Attending Dr: Chuck Chacon [...] 12:00 03/06/23 12:00 03/06/23 12:00 03/06/23 12:00 Narrative: Constitutional: Elderly WF, resting in [...] 1,000 Ml IV 03/07/23 07:49 60 mls/hr .[id number] YVROSE Administration Insulin Aspart 0 units 03/06/23 08:00 03/06/23 11:52 Insulin Aspart 300 Units/3 Ml Insuln.Pen SUBCUT 03/05/24 07:59 Not Given TID.[facility] Protocol Metoprolol Tartrate 25 mg 03/06/23 09:00 [...] <Electronically signed by Chuck Chacon MD> 03/06/23 4846 [facility] Work Phone: 1(839) 238-198809-25-2023 History and physical note Author Jemal Jones [facility] March 05, 2023 11:19pm Note Date/Time March 05, 2023 10:21pm [facility] [address] [place] [address] Hospitalist H&P Signed Patient: Steven Harding MR#: [id number] : 1940 Acct:[id number] Age/Sex: 83 / F Adm Date: 3 Loc: Room: [address] [place] [address] Type: ADM INOo Attending Dr: Jemal Jones [...] current visual changes, headache. Noted that her internet database specialist has recently decreased her losartan due to [...] except as mentioned elsewhere in the documentation [facility] Medical History Aneurysm Aortic. Being monitored. Per pt found at [facility] during last visit there in January [...] Confirmed 03/05/23] thyroid (pork) 60 mg tablet (CIG[employer]TE MACH[employer] MECHANIC Thyroid) 60 mg PO BID 01/18/22 [History [...] % (Auto) 14.7 % (.) 03/05/23 18:07 [place] % (Auto) 5.4 % (.) 03/05/23 18:07 Eos % (Auto) 2.8 % (.) 03/05/23 18:07 Baso % (Auto) 0.5 % (.) 03/05/23 18:07 Nucleat RBC Rel Count 0.1 /100 WBC (0-0.5) 03/05/23 18:07 Neut # (Auto) 8.7 x10E3/uL (1.8-7.7) H 03/05/23 18:07 Lymph # (Auto) 1.7 x10E3/uL (1.00-4.8) 03/05/23 18:07 [place] # (Auto) 0.6 x10E3/uL (0.0-0.8) 03/05/23 18:07 [...] <Electronically signed by Jemal Jones MD> 03/05/23 0857 [facility] Work Phone: 1(201) 163-213508-25-2022 [facility] Progress note Author Wiley Beal [facility] January 20, 2022 1:31pm Note Date/Time January 20, 2022 1: 31pm [facility] [address] [place] [address] Hospitalist Progress Note Signed Patient: Steven Harding MR#: [id number] : 1940 Acct:[id number] Age/Sex: 81 / F Adm Date: 2 Loc: Room: [address] [place] [address] Type: ADM IN Attending Dr: Wiley Beal [...] of care and confirmed it with the resident/student/CIGARETTE MACHINES MECHANIC. Patient was seen and examined at bedside [...] Dose Route Start Last Admin Trade Name Rohit PRN Reason Stop Dose Admin Acetaminophen 650 [...] signed by Wiley Beal MD> 01/20/22 1331 [facility] Work Phone: 1(562) 777-278708-11-2022 [facility] [facility]08-10-2022 Progress note Author Wiley Beal [facility] January 19, 2022 1:35pm Note Date/Time January 19, 2022 1: 35pm [facility] [address] [place] [address] Hospitalist Progress Note Signed Patient: Steven Harding MR#: [id number] : 1940 Acct:[id number] Age/Sex: 81 / F Adm Date: 2 Loc: Room: [address] [place] [address] Type: ADM IN Attending Dr: Wiley Beal [...] Dose Route Start Last Admin Trade Name Frejossue PRN Reason Stop Dose Admin Acetaminophen 650 [...] Insuln.Pen SUBCUT 01/19/23 07:59 Not Given TID.[facility] Protocol Losartan Potassium 100 mg 01/18/22 [...] pain. [facility] he pain is much better CXR [facility] ED reported as no acute cardiopulmonary abnormality EKG [facility] ED (i personally reviewed it) shows NSR@90 bpm no significant acute changes nitro patch(started in [facility]) Morphine prn Telemetry Antiplatelet: Aspirin Anticoagulation: Heparin Drip (started in [facility] ED) Start Beta sarbjit therapy Serial EKGs [...] bedside Documented By: Wiley Beal MD 01/19/22 1333 Signed By: <Electronically signed by Wiley Beal MD> 01/19/22 4579 [facility] Work Phone: [phone]) 814-950508-10-2022 Consult note Author Karli Dougherty [facility] January 19, 2022 12:38pm Note Date/Time January 19, 2022 12 :25pm [facility] [address] [place] [address] Cardiology Consult Note Signed with Addenda Patient: Steven Harding MR#: [id number] : 1940 Acct:[id number] Age/Sex: 81 / F Adm Date: 2 Loc: Room: [address] [place] [address] Type: ADM IN Attending Dr: Wiley Beal [...] Confirmed 01/18/22] thyroid (pork) 60 mg tablet (CIGARETTE MACH[employer]ES MECHANIC Thyroid) 60 mg PO DAILY 01/18/22 [History [...] x10E3/uL Lymph # (Auto) 1.5 (1.00-4.8) x10E3/uL [place] # (Auto) 0.4 (0.0-0.8) x10E3/uL Eos # [...] signed by MD Karli Dougherty> 01/19/22 1237 [facility] Work Phone: 1(734) 247-549608-10-2022 History and physical note Author Justa Westfall [facility] January 19, 2022 7:35am Note Date/Time January 18, 2022 11: 29pm [facility] [address] [place] [address] Hospitalist H&P Signed Patient: Steven Harding MR#: [id number] : 1940 Acct:[id number] Age/Sex: 81 / F Adm Date: 2 Loc: Room: 4P7565-7 Type: ADM IN Attending Dr: Justa Westfall MD Copies to: MD Justa Santos MD~ [facility] DATE OF EXAMINATION: 01/18/22 HISTORY OF PRESENT ILLNESS: This is a pleasant 81F with PMH of HTN, PAD(s/p stenting), Prediabetes, Hypothyroidism who p/w chest pain to the [facility] and transferred for the evaluation and treatment [...] Confirmed 01/18/22] thyroid (pork) 60 mg tablet (CIG[employer]TE MACH[employer]ES MECHANIC Thyroid) 60 mg PO DAILY 01/18/22 [History [...] pain. [facility]. he pain is much better CXR [facility] ED reported as no acute cardiopulmonary abnormality EKG [facility] ED (i personally reviewed it) shows NSR@90 bpm no significant acute changes nitro patch(started in [facility]) Morphine prn Telemetry Antiplatelet: Aspirin Anticoagulation: Heparin Drip (started in [facility]) Start Beta sarbjit therapy Serial EKGs [...] bedside Documented By: Justa Westfall MD 01/18/22 4343 Signed By: <Electronically signed by Justa Westfall MD> 01/19/22 5749 [facility] Work Phone: 1(989) 288-299807-23-2022 Evaluation note* Encounter Date Diagnosis Assessment Notes [...] worsening symptoms or concerns. You may use tpxk-yod-ljtstsd lidocaine gel to the rash for comfort. Patient reports her seafood team member is Dr. Lenz, she will follow-up with them on Monday. [employer] Other 03-15-2022 History of Present illness Narrative* [...] and importance of staying active and exercise [facility] 250 DO Work Phone: Discharge summary Author Wiley Beal [facility] January 22, 2022 4:43pm Note Date/Time January 21, 2022 1: 46pm [facility] [address] [place], [place] [address] Discharge Summary Signed Patient: Steven Harding MR#: [id number] : 1940 Acct:[id number] Age/Sex: 81 / F Adm Date: 2 Loc: Room: [address] [place] [address]: Wiley Beal MD Copies to: [...] was anticoagulated with heparin, taken to the Inventory Control Coordinator. On January 19 she was found to have triple-vessel disease, [...] Actual Procedures p [facility] - Diony Hooks MD Operation Date: 01/20/22 [...] % (Auto) 74.5, Lymph % (Auto) 14.2, [place] % (Auto) 6.7, Eos % (Auto) 4.2, Baso % (Auto) 0.4, Neut # (Auto) 6.3, Lymph # (Auto) 1.2, [place] # (Auto) 0.6, Eos# (Auto) 0.4, Baso [...] You are scheduled for STAGED ANGIOPLASTY at [facility] on 02/03/2022 at 1:00pm with Dr Hooks; please check in at 11:00am- follow instructions You are scheduled for COVID testing at [facility] on 02/01/2022 at 10:00am for upcoming Angioplasty. [...] doctor or pharmacist, without first calling the internet database specialist who implanted the stent. If you require [...] weight lifting, stair steppers, etc. until the internet database specialist approves these activities. Check with the internet database specialist on your first follow-up visit. CALL YOUR PHYSICIAN at [phone]: -If bleeding should occur from the catheter insertion site- apply pressure to the site then immediately call us. -Report any fever, redness, drainage, increased swelling, or firmness at the catheter insertion site. Some bruising or slight swelling may be present at thetime of discharge. -Should arm or leg become cold, numb, white, or blue, contact the internet database specialist immediately. -IF you should experience episodes of [...] is recommended. Please call Central Scheduling at [phone] to schedule your appointment.] The attending internet database specialist or [facility] nurse clinician should provide you with specific instructions regarding activity, diet, medications, and further follow up for you. Follow the medication instructions provided on your discharge. If the dosages and instructions on this sheet differ from the dosage and instructions on the bottle, follow the instructions on the bottle. [facility] is not responsible for incorrect prescription [...] tablet 100 mg PO DAILY thyroid (pork) [CIGARETTE MACHINES MECHANIC Thyroid] 60 mg tablet 60 mg PO DAILY Label Comments: TAKE 1 TABLET BY MOUTH TWICE DAILY ON AN EMPTY STOMACH Other Ambulatory Orders: Basic Metabolic Panel (Routine) Timeframe: 20220125 Location: Determined by Patient Ordered By: Diony Hooks Follow Up: [facility] [Outside] - 01/27/22 4:00 pm Documented By: Wiley Beal MD 01/21/22 1342 Signed By: <Electronically signed by Wiley Beal MD> 01/22/22 1643 [facility] Work Phone: Discharge summary Author Rufus Ricks [facility] March 14, 2023 3:31pm Note Date/Time March 14, 2023 3: 31pm [facility] [address] [place] [address] Discharge Summary Signed Patient: Steven Harding MR#: [id number] : 1940 Acct:[id number] Age/Sex: 83 / F Adm Date: 3 Loc: Room: [address] [place] [address]: Rufus Ricks DO Copies to: [...] DAILY Qty: 30 0RF Held thyroid (pork) [CIGARETTE MACHINES MECHANIC Thyroid] 60 mg tablet 60 mg PO [...] signed by Rufus Ricks DO> 03/14/23 1531 [facility] Work Phone: evaluation note* Diagnosis Onset Date Resolution Status ACS (acute coronary syndrome) acute Hypertension acute Hypothyroidism acute NSTEMI (non-ST elevated myocardial infarction) acute Peripheral vascular disease acute Prediabetes acute [facility] Work Phone: Evaluation note* Diagnosis Onset Date Resolution Status Dizziness acute [facility] Work Phone: evaluation note* Diagnosis Onset Date Resolution Status Acute hyponatremia acute Dizziness acute Pre-syncope acute [facility] Work Phone: evaluation note* Diagnosis Onset Date Resolution Status Acute hyponatremia acute Dizziness acute Pre-syncope acute Acute hyponatremia acute CAD (coronary artery disease) acute Hypertensive urgency acute Hypothyroidism acute [facility] Work Phone: evaluation note* Diagnosis Coronary artery disease involving [place] coronary artery of [place] heart without angina pectoris- Primary Status post percutaneous transluminal coronary angioplasty Postsurgical percutaneous transluminal coronary angioplasty status Mixed hyperlipidemia Hypertension, benign Essential hypertension, benign Dyspnea on exertion Other dyspnea and respiratory abnormality BMI 27.0-27.9,adult Former smoker Personal history of tobacco use, presenting hazards to health documented in this encounter [facility] Work Phone: Evaluation note* Diagnosis Status post percutaneous transluminal coronary angioplasty- Primary Postsurgical percutaneous transluminal coronary angioplasty status Coronary artery disease involving [place] coronary artery of [place] heart without angina pectoris Mixed hyperlipidemia Hypertension, benign Essential hypertension, benign Body mass index (BMI) 29.0-29.9, adult Dyspnea on exertion Other dyspnea and respiratory abnormality Former smoker Personal history of tobacco use, presenting hazards to health documented in this encounter [facility] Work Phone: Evaluation note* Diagnosis Acute right-sided low back pain with right-sided sciatica Right hip pain Pain in joint, pelvic region and thigh Pain of right sacroiliac joint Overweight (BMI 25.0-29.9) Overweight documented in this encounter [facility] Author Sima Hdz [facility] March 12, 2023 7:49pm Note Date/Time March 12, 2023 7: 50pm [facility] [address] [place] [address] Hospitalist H&P Signed Patient: Steven Harding MR#: [id number] : 1940 Acct:[id number] Age/Sex: 83 / F Adm Date: 3 Loc: Room: [address] [place] [address] Type: ADM IN Attending Dr: Sima Hdz [...] negative unless noted below or in HPI [facility] Medical History Aneurysm Aortic. Being monitored. Per pt found at [facility] during last visit there in January [...] Confirmed 03/05/23] thyroid (pork) 60 mg tablet (CIGARETTE MACHINES MECHANIC Thyroid) 60 mg PO BID 01/18/22 [History [...] % (Auto) 13.2 % (.) 03/12/23 14:45 [place] % (Auto) 5.1 % (.) 03/12/23 14:45 Eos % (Auto) 2.0 % (.) 03/12/23 14:45 Baso % (Auto) 0.4 % (.) 03/12/23 14:45 Nucleat RBC Rel Count 0.0 /100 WBC (0-0.5) 03/12/23 14:45 Neut # (Auto) 7.0 x10E3/uL (1.8-7.7) 03/12/23 14:45 Lymph # (Auto) 1.2 x10E3/uL (1.00-4.8) 03/12/23 14:45 [place] # (Auto) 0.5 x10E3/uL (0.0-0.8) 03/12/23 14:45 [...] pH 7.5 (5.0-9.0) 03/12/23 15:55 Ur Specific [place] 1.010 (1.001-1.030) 03/12/23 15:55 Urine Protein Negative [...] Hyponatremia of 128. TSH was suppressed on [place] Thyroid and has been checked twice with [...] by Sima Hdz MD> 03/12/231948 [facility] Work Phone: Hisroen general Narrative - Reported* Type Description Date Medical History Hypertension Medical History Insulin Resistant Surgical History teeth extraction upper Surgical History skin cancer removal 2018 Hospitalization History see above [employer] Other History of Present illness Narrative* The [...] the patient complains of medication side effects. -[facility] 250 DO Work Phone: History of Present [...] medication regimen. She denies medication side effects. [facility] 600 DO Work Phone: history of Present illness Narrative* Patient is here [...] her back in 6 months and follow-up [facility] 250 DO Work Phone: [facility] Work [facility]: [facility] Work Phone: [facility] Work Phone: Progress note Author Wiley Beal [facility] January 21, 2022 1:42pm Note Date/Time January 21, 2022 1: 42pm [facility] [address] [place] [address] Hospitalist Progress Note Signed Patient: Steven Harding MR#: [id number] : 1940 Acct:[id number] Age/Sex: 81 / F Adm Date: 2 Loc: Room: 2J9356-8 Type: ADM IN Attending Dr: Wiley Beal [...] of care and confirmed it with the resident/student/CIGAR[employer] MACHINES MECHANIC. Patient was seen and examined at bedside [...] Insuln.Pen SUBCUT 01/19/23 07:59 Not Given TID.WM.[facility] Protocol Losartan Potassium 100 mg 01/18/22 [...] signed by Wiley Beal MD> 01/21/22 1342 [facility] Work Phone: Reason for referral (narrative)* Consultation (Routine) - Authorized Specialty Diagnoses / Procedures Referred By Contac t Referred To Contact Cardiology Diagnoses Coronary artery disease involving [place] coronary artery of [place] heart without angina pectoris Procedures Follow Up In Cardiology Karli Dougherty MD [address] [facility] [place] [address] Karli Dougherty MD [address] [facility], [address] [place] [address] Referral ID Status Reason Start Date Expiration Date V isits Requested Visits Authorized [id number] Authorized 08/31/2023 08/30/2024 1 1 [facility] Work Phone: Chief Complaint and Reason [...] artery disease) Hypertensive urgency Hypothyroidism Advance Directives Advance Directive Response Recorded Date/ Time Advance Directives No November 10 8:56pm Documents on File Type Date Recorded 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 * Patient was recently hospitalized at [facility]. The patient was seen in Cardiology consult with subsequent cardiovascular management by [facility]. Hospitalization records have been reviewed. * Reason for Cardiology Consultation: ACS * Consulting Olive Pitter: Dr. Dougherty * Cardiovascular testing: Echo, cath with subsequent PCI * Changes to cardiovascular medical regimen at time of discharge: ASA, brilinta, lipitor lopressor, aldactone * Discharge disposition: Home * Reports admit at [facility] d/t 'kidney pain and being dehydrated'. Spironolactone [...] tomorrow * 3. Begin cardiac rehab at [facility] * 4. Lipid profile in 2 months (new statin initiation) * 5. Keep scheduled f/u in 6 weeks to reassess * 6. Obtain CT from [facility] to verify surveillance testing. * 7. RN [...] section and content) Reason Comments Follow-up 6m Reason Comments Follow-up 6-8 months Specialty Diagnoses / Procedures Referred By Fredis bosch Referred To Contact Cardiology Diagnoses Coronary artery disease involving [place] coronary artery of [place] heart without angina pectoris Procedures Follow Up In Cardiology Karli Dougherty MD [address] [place], [place] [id number] Phone: tel: fax: Karli Dougherty MD [address] [place] [address], [address] [address] Phone: tel: fax: Referral ID Status Reason Start Date Expiration Date V isits Requested Visits Authorized [id number] Authorized 08/31/2023 08/30/2024 1 1 Reason Comments Back Pain Hip Pain Care Teams (unrecognized sec tion and content) [...] Active Team Status: Inactive Member Role Status Priyanka Puentes MD Primary Care Provider Active [...] Active Team Status: Active Member Role Status Priyanka Puentes MD Primary Care Provider Active Monique Tierney MD Emergency Provider Active Jemal Jones MD Admit Provider, Attending Provi mireille Active Biology Laboratory Assistant Relationship Specialty Start Date End Date Priyanka Puentes MD [address] [place] [address] (Fax) PCP - ACO Reach 11/03/22 Priyanka Puentes MD [address] [place] [phone] PCP - General Family Medicine 12/21/22 Karli Dougherty MD [address] [address] Referring Physician Cardiology 07/20/23 Biology Laboratory Assistant Relationship Specialty Start Date End Date Priyanka Puentes MD [address] [place] [phone] PCP - General 06/12/99 Biology Laboratory Assistant Relationship Specialty Start Date End Date Priyanka Puentes MD [address] [place] [phone] PCP - General 06/12/99 Biology Laboratory Assistant Relationship Specialty Start Date End Date Priyanka Puentes MD [address] [place] [address] (Fax) PCP - ACO Reach 11/03/22 Priyanka Puentes MD [address] [place] [address] (Fax) PCP - General Family Medicine 12/21/22 Karli Dougherty MD [address] [place] [phone] Referring Physician Cardiology 07/20/23 Biology Laboratory Assistant Relationship Specialty Start Date End Date Priyanka Puentes MD [address] [place] [address] (Fax) PCP - ACO Reach 11/03/22 Priyanka Puentes MD [address] [place] [address] (Fax) PCP - General Family Medicine 12/21/22 Karli Dougherty MD [address] [place] [phone] Referring Physician Cardiology 07/20/23 Biology Laboratory Assistant Relationship Specialty Start Date End Date Priyanka Puentes MD [address] [place] [address] (Fax) PCP - ACO Reach 11/03/22 Priyanka Puentes MD [address] [place] [address] (Fax) PCP - General Family Medicine 12/21/22 Karli Dougherty MD [address] [address] Referring Physician Cardiology 07/20/23 Biology Laboratory Assistant Relationship Specialty Start Date End Date Priyanka Puentes MD [address] [place] [address] (Fax) PCP - ACO Reach 11/03/22 Priyanka Puentes MD [address] [place] [address] (Fax) PCP - General Family Medicine 12/21/22 Karli Dougherty MD [address] [address] Referring Physician Cardiology 07/20/23 INFORMATION SOURCE (unrecogn ized section and content) DATE CREATED AUTHOR 10/18/2022 [facility] DATE CREATED AUTHOR AUTHOR'S ORGANIZ ATION 02/18/2023 [employer] DATE CREATED AUTHOR AUTHOR'S ORGANIZ ATION 03/15/2023 [facility] DATE CREATED AUTHOR AUTHOR'S ORGANIZ ATION 03/18/2023 [facility] DATE CREATED AUTHOR AUTHOR'S ORGANIZ ATION 05/11/2024 [facility] DATE CREATED AUTHOR AUTHOR'S ORGANIZ ATION 05/16/2024 [facility] EPIC Goals (unrecognized section and [...] BE BASED ON THE PRIMARY CLINICAL RECORDS. [facility] [employer] [facility]. provides no warranty or guarantee of the accuracy or completeness of information in this document.
== END 2024-06-11 10:22 | disposition home or self-care (01) ==
LOC: RAD 10:23
PROVIDERS: PCP Family Medicine; Visit Provider Family Medicine
DX: M54.41 Lumbago with sciatica, right side (principal); M25.551 Pain in right hip
CPT/HCPCS: 73502

== ENCOUNTER 2024-07-10 13:41 | Outpatient (OUT) | payer MEDICARE, OTHER, SELFPAY ==
--- NOTE | 2024-07-10 13:43 | CT_ITS ---
The [address] [address] Patient Name: STEVEN BENTON MRN: [id number] date: 1940 Sex: F Assigned Patient Location: CT Current Patient Location: Accession/Order Number: [id number] Exam Date: 07/10/2024 13:48 Report Date: 07/11/2024 13:40 At the request of: MUSTAPHA PATEL Procedure: CT lumbar spine wo con EXAM: CT lumbar spine wo con CLINICAL INDICATION: Degenerative Disc Disease, Lumbar Radiculopathy COMPARISON: CT abdomen/pelvis 01/27/2022. Lumbar spine radiographs 05/21/2024. TECHNIQUE: Multiple axial images were obtained of the lumbar spine. Soft tissue and bone windows in coronal and sagittal planes were obtained and reviewed. Dose reduction techniques were achieved by using automated exposure control and/or adjustment of mA and/or kV according to patient size and/or use of iterative reconstruction technique. FINDINGS: Osseous Mineralization: Diffuse osseous demineralization limits evaluation of fine osseous detail. Trauma: No definite fracture, traumatic malalignment, facet dislocation, or discrete epidural hemorrhage. Alignment: Normal. Vertebral Body Heights: Maintained. Soft Tissues: Normal. Spondylotic Changes: Multilevel spondylotic changes include varying degrees of intervertebral disc height loss, endplate sclerosis, osteophytic ridging, and facet/ligamentum flavum hypertrophy. Slight disc bulges L2-L3, L3-L4, and L4-L5. Spinal canal narrowing is lwvw-rt-kfefhjua at these levels, also contributed to by facet/ligamentum flavum hypertrophy. No high-grade foraminal narrowing at any lumbar level. Other: Scattered vascular calcifications. Infrarenal abdominal aortic aneurysm measures approximately 3.2 x 2.6 cm. This has mildly increased in size since 01/27/2022. CT/CT lumbar spine wo con IMPRESSION: 1. No definite acute osseous abnormalities in the lumbar spine given osseous demineralization. 2. Multilevel lumbar spondylotic changes with crnw-[id number] spinal canal narrowing at L2-L3, L3-L4, and L4-L5. 3. Infrarenal abdominal aortic aneurysm measures approximately 3.2 x 2.6 cm. This has mildly increased in size since 01/27/2022. Electronically authenticated by: YAO WATSON Date: 07/11/2024 13:40
--- OUTSIDE RECORDS SUMMARY | 2024-07-10 14:00 | XMS_ITS | CCD ---
Author Organization [facility] Care Team Providers Care Administrative And Program Specialist Name Role Phone Eva Panda Unavailable MD Priyanka Puentes Primary Care Provider MD Justa Westfall Admit Provider MD Wiley Beal Attending Provider [phone] DEONTE Monzon Other Provider Unavailable DO Isaiah Cordova Other Provider MD Vik Segura Other Provider [phone] MD Moshe Hernandez Other Provider MD Karli Dougherty Other Provider MD Anatoly Msasey Other Provider FRANOCIS Mercado Other Provider [phone] MD Almita Asif Other Provider MD Dora Levine Other Provider MD Lydia Kern Other Provider MD Diony Hooks Attending Provider [phone] Priyanka Puentes Unavailable Unavailable Unavailable DR [...] DR MATHEW Primary Care Unavailable PARNAY, KHANH Attending Unavailable PRANAY, KHANH Consulting Unavailable [...] Unavailable MD Priyanka Puentes Primary Care Provider [phone] MD Monique Tierney Emergency Provider MD Jemal Jones Admit Provider MD Jemal Jones Attending Provider MD Chuck Chacon Attending Provider SHANTEL Dhillon Emergency Provider [phone] MD Sima Hdz Admit Provider MD Sima Hdz Attending Provider [phone] [facility] Rufus Cordon Attending Provider Dr. Priyanka Puentes Primary Care Unava Karli Horvath Attending Unavailable Ms. Hung Khanh Sophie Batista Referring Saravai xiomy Puentes, Dr. Priyanka Ramey [...] Primary Care Provider Karli Dougherty MD Unavailable [phone] Priyanka Puentes MD Primary Care Provider Priyanka [...] PUENTES Attending Unavailable Priyanka Puentes MD Unavailable [phone] Priyanka Puentes MD Primary Care Provider [phone] Allergies Allergy Classification Reported Allergen(s) Allergy Type Date of Onset Reaction(s) Facility (1 source) diphenhydrAMINE Drug Allergy anaphylaxis [facility] Other (7 sources) Ticagrelor; Translations: [Brilinta TABS] Drug Allergy 03-17-20 23 [facility] (4 sources) Codeine; Translations: [CODEINE] Drug Allergy 01-18-20 23 Shakiness [facility] (1 source) Penicillin Drug Allergy 01-19-20 22 [facility] (2 sources) Ticagrelor; Translations: [TICAGRELOR] Drug Allergy 01-25-20 22 [facility] (1 source) Antihistamines - Ethanolamine Drug allergy (disorder) 01-27-20 [facility] (2 sources) Antihistamines Allergy to substance 03-12-20 [facility] (7 sources) Calcium Citrate Drug Allergy 01-18-20 [facility] (7 sources) Cephalexin Drug Allergy 01-18-20 23 [facility] (7 sources) Ciprofloxacin Drug Allergy 01-18-20 23 [facility] (10 sources) Clindamycin; Translations: [CLINDAMYCIN] Drug Allergy 01-18-20 23 Diarrhea [facility] (9 sources) Codeine Drug Allergy 01-18-20 23 Unknown [facility] (7 sources) diphenhydrAMINE Drug Allergy 01-18-20 [facility] (8 sources) Minocycline; Translations: [MINOCYCLINE] Drug Allergy 01-18-20 Diarrhea [facility] (7 sources) Erythromycin Base Drug Allergy 01-18-20 Hives [facility] (2 sources) Minocycline Drug Allergy 01-18-20 Diarrhea [facility] Work Phone: Medications Current Medications Medication Drug Class(es) Dates Sig (Normalized) Sig (Original) albuterol 0.83 mg/ml inhalation solution (20 sources) beta2-Adrenergic Agonist Start: 07-05-2023 End: 07-04-2024 [...] DO Active amLODIPine 5 mg oral tablet (10 sources) Dihydropyridine Calcium Channel Sarbjit Start: 01-30-2024 [...] B Complex Vitamins (vitamin B complex) tablet (6 sources) take 1 tablet by mouth once [...] 30 Refills: 11 Ordered: 15-Feb-2022 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 Active gabapentin 100 mg oral capsule (3 sources) Anti-epileptic Agent Start: 05-20-20 End: 07-12-19 gabapentin (Neurontin) 100 MG capsule Indications: Acute right-sided low back pain with right-sided sciatica Titrate from 1 to 4 capsules three times daily as needed for pain 100 capsule 06/11/2024 07/12/2024 Active levothyroxine sodium 0.112 mg oral tablet (9 sources) l-Thyroxine Start: 08-08-19 End: 11-06-19 take [...] Active magnesium oxide 400 mg oral tablet (12 sources) Start: 03-07-2023 End: 08-31-2023 take 400 [...] 2023 10:47am nabumetone 500 mg oral tablet (5 sources) Nonsteroidal Anti-inflammatory Drug Start: 05-14-2024 End: 06-13-2024 take 1 tablet by mouth in the morning nabumetone (Relafen) 500 MG tablet Indications: Acute right-sided low back pain with right-sided sciatica Take 1 tablet (500 mg) by mouth in the morning and 1 tablet (500 mg) before bedtime. 60 tablet 05/14/2024 06/13/2024 Active naproxen sodium 220 mg oral tablet (7 sources) Nonsteroidal Anti-inflammatory Drug take 1 tablet by mouth twice daily as needed naproxen sodium (Aleve) 220 MG tablet Take 220 mg by mouth 2 (two) times a day as needed. 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 Active predniSONE 10 mg oral tablet (5 sources) Start: 05-14-2024 predniSONE (Deltasone) 10 MG tablet Indications: Acute right-sided low back pain with right-sided sciatica , Right hip pain , Pain of right sacroiliac joint Every 2 day tapering dose; 5,5,4,4,3,3,2,2,1,1,0.5,0.5 31 tablet 05/14/2024 Active Thyroid (Pork) (Licensed Loan Officer Assistant Thyroid) 60 mg tablet (4 sources) Start: 01-18-2022 take 1 tablet by mouth twice daily Thyroid (Pork) (Licensed Loan Officer Assistant Thyroid) 60 mg tablet Active 60 MG PO Twice daily January 18, 2022 12:00am thyroid (longterm) 60 mg oral tablet (11 sources) Start: 01-18-2022 take 1 tablet by mouth twice daily Thyroid (Pork) (Licensed Loan Officer Assistant Thyroid) 60 mg tablet Active 60 MG PO Twice daily January 18, 2022 12:00am End: 08-31-2023 take 1 tablet by mouth once daily before mealtime thyroid, pork, (VP RHEUMATOLOGY Thyroid) 60 mg tablet Take 1 tablet [...] Date Documented Date Episodic/Chronic Acute myocardial infarction (17 sources) Myocardial infarction; Translations: [Non-ST elevation (NSTEMI) myocardial infarction] Onset: 01-20-2022 01-18-2022 Chronic Aortic; peripheral; and visceral artery aneurysms (7 sources) Aneurysm of infrarenal abdominal aorta ; Translations: [Infrarenal abdominal aortic aneurysm, without rupture] Onset: 01-17-2023 01-17-2023 Chronic Asthma (7 sources) Allergic asthma; Translations: [Unspecified asthma, uncomplicated] Onset: 01-17-2023 01-17-2023 Chronic Cataract (14 sources) Bilateral pseudophakia; Translations: [Presence of intraocular lens] Onset: 01-17-2023 01-17-2023 Chronic Chronic kidney disease (14 sources) Chronic kidney disease, stage 2 (mild); Translations: [Chronic kidney disease stage 2] Onset: 08-16-2022 Resolved: 08-09-2023 01-17-2023 Chronic Chronic obstructive pulmonary disease and bronchiectasis (13 sources) Simple chronic bronchitis; Translations: [Simple chronic bronchitis] Onset: 01-17-2023 01-17-2023 Chronic Conditions associated with dizziness or vertigo (9 sources) Dizziness; Translations: [Dizziness and giddiness] Onset: 03-05-2023 03-05-2023 Episodic Coronary atherosclerosis and other heart disease (20 sources) Coronary arteriosclerosis; Translations: [Atherosclerotic heart disease of [place] coronary artery without angina pectoris] Onset: 06-14-2022 [...] hyperlipidemia] Onset: 08-16-2022 01-17-2023 Chronic Esophageal disorders (7 sources) Gastroesophageal reflux disease without esophagitis; Translations: [Gastro-esophageal reflux disease without esophagitis] Onset: 01-17-2023 01-17-2023 Chronic Essential hypertension (20 sources) Hypertensive disorder; Translations: [Essential (primary) hypertension] Onset: 01-20-2022 11-11-2019 Chronic Fluid and electrolyte disorders (10 sources) Hypo-osmolality and hyponatremia; Translations: [Acute hyponatremia] Onset: 02-02-2022 03-05-2023 Episodic Genitourinary symptoms and ill-defined conditions (7 sources) Urge incontinence of urine; Translations: [Urge incontinence] Onset: 01-17-2023 01-17-2023 Chronic Hypertension with complications and secondary hypertension (16 sources) Hypertensive chronic kidney disease with stage 1 through stage 4 chronic kidney disease, or unspecified chronic kidney disease; Translations: [Hypertensive urgency ] Onset: 08-15-2022 Chronic Malaise and fatigue (12 sources) Chronic fatigue, unspecified; Translations: [Fatigue] Onset: 04-12-2022 Chronic Nutritional deficiencies (7 sources) Vitamin D deficiency; Translations: [Vitamin D deficiency, unspecified] Onset: 01-17-2023 01-17-2023 Chronic Osteoarthritis (14 sources) Arthritis of left knee; Translations: [Unilateral primary osteoarthritis, left knee] Onset: 07-12-2016 01-17-2023 Chronic Other and ill-defined heart disease (7 sources) Diastolic dysfunction; Translations: [Other ill-defined heart diseases] Onset: 01-17-2023 01-17-2023 Chronic Other circulatory disease (7 sources) History of endovascular stent graft for repair of abdominal aortic aneurysm; Translations: [Presence of other vascular implants and grafts] Onset: 01-17-2023 01-17-2023 Chronic Other circulatory disease (7 sources) History of insertion of iliac stent; Translations: [Presence of other vascular implants and grafts] Onset: 01-17-2023 01-17-2023 Chronic Other circulatory disease (1 source) Orthostatic hypotension; Translations: [Orthostatic hypotension] Onset: 03-05-2023 Episodic Other ear and sense organ disorders (1 source) Disorder of external ear; Translations: [Unspecified otitis externa, left ear] Onset: 01-17-2023 01-17-2023 Chronic Other lower respiratory disease (7 sources) Pulmonary granuloma; Translations: [Pulmonary fibrosis, unspecified] Onset: 01-17-2023 01-17-2023 Chronic Other lower respiratory disease (7 sources) Post-inflammatory pulmonary fibrosis; Translations: [Pulmonary fibrosis, unspecified] Onset: 03-26-2016 01-19-2023 Chronic Other lower respiratory disease (2 sources) Dyspnea on exertion; Translations: [Other forms of dyspnea] 08-31-2023 Episodic Other nervous system disorders (7 sources) Chronic pain; Translations: [Other chronic pain] Onset: 01-17-2023 01-17-2023 Chronic Other non-traumatic joint disorders (2 sources) Hip pain; Translations: [Pain in right hip] 05-14-2024 Episodic Other nutritional; endocrine; and metabolic disorders (4 sources) Obesity; Translations: [Obesity, unspecified] Chronic Other nutritional; endocrine; and metabolic disorders (7 sources) Obese class I; Translations: [Obesity, unspecified] [...] Onset: 01-20-2022 01-19-2022 Chronic Pulmonary heart disease (7 sources) Pulmonary hypertension; Translations: [Pulmonary hypertension, unspecified] Onset: 01-17-2023 01-17-2023 Chronic Retinal detachments; defects; vascular occlusion; and retinopathy (14 sources) Epiretinal membrane of right eye; Translations: [Puckering of macula, right eye] Onset: 01-17-2023 01-17-2023 Chronic Spondylosis; intervertebral disc disorders; other back problems (5 sources) Acute back pain with sciatica; Translations: [Lumbago with sciatica, right side] 05-14-2024 Episodic Syncope (12 sources) Near syncope; Translations: [Syncope and collapse] Onset: 02-02-2022 11-11-2019 Episodic Thyroid disorders (20 sources) Hypothyroidism; Translations: [Hypothyroidism, unspecified] Onset: 03-05-2023 01-18-2022 Chronic Unclassified (1 source) CONTACT W/AND (SUSP) EXPOS COVID-19; Translations: [CONTACT W/AND (SUSP) EXPOS COVID-19] Onset: 02-02-2022 Past or Other Problems Problem Classification Problem Date Documented Da te Episodic/Chronic Blindness and vision defects (7 sources) Presbyopia; Translations: [Presbyopia] Onset: 01-17-2023 01-17-2023 Episodic Coronary atherosclerosis and other heart disease (20 sources) Patient post percutaneous transluminal coronary angioplasty; Translations: [Percutaneous transluminal coronary angioplasty status] Onset: 01-17-2023 01-17-2023 Episodic Diabetes mellitus without complication (20 sources) Prediabetes; Translations: [Prediabetes] Onset: 08-16-2022 01-18-2022 Episodic Heart valve disorders (7 sources) Heart murmur; Translations: [Cardiac murmur, unspecified] Onset: 01-17-2023 01-17-2023 Episodic Mood disorders (8 sources) Mood disorders Onset: 02-15-2022 Resolved: 08-30-2023 07-25-2022 Noninfectious gastroenteritis (1 source) Noninfective gastroenteritis and colitis, unspecified; Translations: [NONINFECTIVE GE AND COLITIS UNS] Onset: 02-02-2022 Episodic Nonspecific chest pain (3 sources) Chest pain, unspecified; Translations: [CHEST PAIN UNSPECIFIED] Onset: 01-18-2022 Episodic Other aftercare (1 source) Other snf (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; Translations: [OTH CAR PARK ATTENDANT CURRENT DRUG THERAPY] Onset: 02-02-2022 Episodic Other aftercare (1 source) long-term (current) use of oral hypoglycemic drugs; Translations: [FPC USE ORAL HYPOGLYCEMIC DX] Onset: 02-02-2022 Episodic Other aftercare (1 source) 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; Translations: [CAR PARK ATTENDANT CURRENT USE OF ASPIRIN] Onset: 01-20-2022 Episodic Other aftercare (7 sources) Polypharmacy ; Translations: [Other account resolution specialist (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] Onset: 08-07-2020 01-19-2023 Episodic Other bone disease and musculoskeletal deformities (7 sources) Osteopenia; Translations: [Other specified disorders of bone density and structure, unspecified site] Onset: 01-17-2023 01-17-2023 Episodic Other circulatory disease (1 source) Hypotension, unspecified; Translations: [HYPOTENSION UNSPECIFIED] Onset: 02-02-2022 Episodic Other circulatory disease (9 sources) Orthostatic hypotension; Translations: [Orthostatic hypotension] Onset: 01-10-2024 03-07-2023 Episodic Other circulatory disease (7 sources) H/O: cardiovascular disease; Translations: [Personal history of other diseases of the circulatory system] Onset: 04-25-2016 01-19-2023 Episodic Other connective tissue disease (7 sources) Abnormal posture; Translations: [Abnormal posture] Onset: 01-17-2023 Resolved: 08-07-2023 01-17-2023 Episodic Other connective tissue disease (7 sources) Left rotator cuff syndrome; Translations: [Unspecified rotator cuff tear or rupture of left shoulder, not specified as traumatic] Onset: 01-17-2023 01-17-2023 Episodic Other ear and sense organ disorders (6 sources) Disorder of left external ear; Translations: [Unspecified otitis externa, left ear] Onset: 01-17-2023 Resolved: 08-07-2023 08-07-2023 Chronic Other eye disorders (7 sources) Disorder of lacrimal system; Translations: [Disorder [...] 03-17-2023 Episodic Other non-epithelial cancer of skin (7 sources) Basal cell carcinoma of ear; 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] Onset: 01-17-2023 01-17-2023 Episodic Other nutritional; endocrine; and metabolic disorders (7 sources) Morbid obesity; Translations: [Morbid (severe) obesity due to excess calories] Onset: 04-25-2016 Resolved: 05-02-2023 05-02-2023 Chronic Other nutritional; endocrine; and metabolic disorders (2 sources) Body mass index (BMI) 27.0-27.9, adult; Translations: [Body mass index (BMI) 27.0-27.9, adult] Onset: 08-31-2023 Episodic Other skin disorders (7 sources) Keloid scar; Translations: [Hypertrophic scar] Onset: 01-17-2023 Resolved: 08-07-2023 01-17-2023 Episodic Residual codes; unclassified (1 source) Other specified postprocedural states; Translations: [OTH SPECIFIED POSTPROCEDURAL STATES] Onset: 02-02-2022 Episodic Screening and history of mental health and substance abuse codes (20 sources) Ex-smoker; Translations: [Personal history of tobacco use] Onset: 03-25-2016 01-19-2023 Episodic Comment on above: nicotine lozenges; Thyroid disorders (12 sources) Sick-euthyroid syndrome; Translations: [Sick-euthyroid syndrome] Onset: 04-15-2022 Resolved: 05-08-2023 Episodic Unclassified (2 sources) Onset: 08-31-2023 Resolved: 05-08-2024 08-31-2023 Viral infection (1 source) Zoster without complications Onset: 07-23-2022 Resolved: 01-01-2022 Episodic Results Test Name Value Interpretation Reference Range Facility ALL LIPID PROFILE (FASTING)o n 05-17-2024 CHOL HDL RATIO 1.8 [facility] Comment on above: 3.3 - 4.4 LOW RISK 4.4 - 7.1 AVERAGE RISK 7.1 - 11.0 MODERATE RISK >11.0 HIGH RISK Cholesterol [Mass/Vol] 144 mg/dL NINF - 200 mg/dL [facility] Cholesterol in HDL [Mass/Vol] 80 mg/dL High 40 - 60 mg/dL [facility] Comment on above: > or =60 mg/dl - LOW CARDIOVASCULAR RISK <40 mg/dl - HIGH CARDIOVASCULAR RISK Magnesium [Mass/Vol] 52 mg/dL [facility] Comment on above: <100 mg/dl OPTIMAL 100-129 mg/dl NEAR OR ABOVE OPTIMAL 130-159 mg/dl BORDERLINE HIGH 160-189 mg/dl HIGH >190 mg/dl VERY HIGH Magnesium [Mass/Vol] 12.2 mg/dL [facility] Triglyceride [Mass/Vol] 61 mg/dL NINF - 150 mg/dL [facility] CMP (CMP) (FOR REMOTE FH C USE)on 05-17-2024 Albumin [Mass/Vol] 4 g/dL 3.4 - 5.0 g/dL [facility] ALBUMIN GLOBULIN RATIO 1.3 NO [facility] ALP [Catalytic activity/Vol] 48 U/L 46 - 116 U/L [facility] ALT [Catalytic activity/Vol] 24 U/L 14 - 59 U/L [facility] Anion gap [Moles/Vol] 13.4 mmol/L NO [facility] AST [Catalytic activity/Vol] 13 U/L Low 15 - 37 U/L [facility] Bilirubin [Mass/Vol] 0.6 mg/dL 0.2 - 1 .0 mg/dL [facility] Calcium [Mass/Vol] 9.1 mg/dL 8.5 - 10. 1 mg/dL [facility] Chloride [Moles/Vol] 97 mmol/L Low 98 - 10 7 mmol/L [facility] CO2 [Moles/Vol] 28.9 mmol/L 21.0 - 32.0 mmol/L [facility] Creatinine [Mass/Vol] 1.12 mg/dL High 0.55 - 1.02 mg/dL [facility] GFR/1.73 sq M.predicted CKD-EPI (S/P/Bld) [Vol rate/Area] 56 Low >=60 mL/min/1.7 3m 2 [facility] Globulin (S) [Mass/Vol] 3.2 g/dL [facility] Glucose [Mass/Vol] 102 mg/dL 74 - 106 mg/dL [facility] Potassium [Moles/Vol] 4.3 mmol/L 3.5 - 5.1 mmol/L [facility] Protein [Mass/Vol] 7.2 g/dL 6.4 - 8.2 g/dL [facility] Sodium [Moles/Vol] 135 mmol/L Low 136 - 145 mmol/L [facility] TBH EGFR-NON AF GREEK 47 Low >=60 mL/min/1.7 3m 2 [facility] Urea nitrogen [Mass/Vol] 22 mg/dL High 7.0 - 18.0 mg/dL [facility] Urea nitrogen/Creatinine [Mass ratio] 19.6 mg/mg [facility] No Panel Informationon 05-17 Interpretation and review of laboratory results Abnormal [facility] MLR HEMOGLOBIN A1Con 024 Glucose [Mass/Vol] 111 mg/dL [facility] HbA1c (Bld) [Mass fraction] 5.5 % 4.5 - 6.2 % [facility] Comment on above: ADA RECOMMENDED LIMI T 4.0 - 6.0 ADA THERAPEUTIC TARGET < 7.0 ACTION SUGGESTED > 7.0 [facility] Basic Metabolic Panelon 10-0 Anion gap [Moles/Vol] 9.8 mmol/L Normal 6.0-15.0 [facility] Comment on above: Performed By: #### B VP RHEUMATOLOGY, BMP, PT, PTT, HS TROP, CBC, TSH3, CK #### [facility] [address] [place] [address] [place] Calcium [Mass/Vol] 8.3 mg/dL Low 8.6-10.3 [facility] Comment on above: Performed By: #### B VP RHEUMATOLOGY, BMP, PT, PTT, HS TROP, CBC, TSH3, CK #### [facility] [address] [place] [id number] [place] Chloride [Moles/Vol] 101 mmol/L Normal 98-107 [facility] Comment on above: Performed By: #### B VP RHEUMATOLOGY, BMP, PT, PTT, HS TROP, CBC, TSH3, CK #### [facility] [address] CO2 [Moles/Vol] 23.6 mmol/L Normal 21.0-31.0 [facility] Comment on above: Performed By: #### B VP RHEUMATOLOGY, BMP, PT, PTT, HS TROP, CBC, TSH3, CK #### [facility] [address] Creatinine [Mass/Vol] 0.70 mg/dL Normal 0.60-1.20 [facility] Comment on above: Performed By: #### B VP RHEUMATOLOGY, BMP, PT, PTT, HS TROP, CBC, TSH3, CK #### [address] Creatinine Clr Calc Pharmacy 48.88 [facility] Comment on above: Performed By: #### B VP RHEUMATOLOGY, BMP, PT, PTT, HS TROP, CBC, TSH3, CK #### [address] GFR/1.73 sq M.predicted MDRD (S/P/Bld) [Vol rate/Area] mL/min/{1.73_m2} [facility] Comment on above: Performed By: #### B VP RHEUMATOLOGY, BMP, PT, PTT, HS TROP, CBC, TSH3, CK #### [address] Glucose [Mass/Vol] 84 mg/dL Normal 70-100 [facility] Comment on above: Result Comment: [place] Glucose Reference Range is dependent on time and content of last meal. Glucose of more than 200 mg/dL in a nonstressed, ambulatory subject supports the diagnosis of Diabetes Mellitus. ADA recommended reference range Performed By: #### B VP RHEUMATOLOGY, BMP, PT, PTT, HS TROP, CBC, TSH3, CK #### [address] Potassium [Moles/Vol] 4.4 mmol/L Normal 3.5-5.1 [facility] Comment on above: Performed By: #### B VP RHEUMATOLOGY, BMP, PT, PTT, HS TROP, CBC, TSH3, CK #### [facility] [address] Sodium [Moles/Vol] 130 mmol/L Low 136-145 [facility] Comment on above: Performed By: #### B VP RHEUMATOLOGY, BMP, PT, PTT, HS TROP, CBC, TSH3, CK #### [facility] [address] [place] [address] [place] Urea nitrogen [Mass/Vol] 8 mg/dL Normal 7-25 [facility] Comment on above: Performed By: #### B VP RHEUMATOLOGY, BMP, PT, PTT, HS TROP, CBC, TSH3, CK #### [facility] [address] Calcium [Mass/volume] in Ser um or PlasmaOrdered By: Rufus Ricks on 03-14-2023 Calcium [Mass/Vol] 8.3 mg/dL 8.6-10.3 [facility] Carbon dioxide, total [Moles /volume] in Serum or PlasmaOrdered By: Rufus Ricks on 03-14-2023 CO2 [Moles/Vol] 23.6 mmol/L 21.0-31.0 [facility] Chloride [Moles/volume] in S yamilex or PlasmaOrdered By: Rufus Ricks on 03-14-2023 Chloride [Moles/Vol] 101 mmol/L 98-107 [facility] Creatinine [Mass/volume] in Serum or PlasmaOrdered By: Rufus Ricks on 03-14-2023 Creatinine [Mass/Vol] 0.70 mg/dL 0.60-1.20 [facility] Free T4 (Free Thyroxine)on Free T4 [Mass/Vol] 0.72 ng/dL Normal 0.61-1.12 [facility] Comment on above: Performed By: #### B VP RHEUMATOLOGY, BMP, PT, PTT, HS TROP, CBC, TSH3, CK #### [facility] [address] Glucose [Mass/volume] in Ser um or PlasmaOrdered By: Rufus Ricks on 03-14-2023 Glucose [Mass/Vol] 84 mg/dL 70-100 [facility] Comment on above: ADA recommended refe rence rangeRandom Glucose Reference Range is dependent on time and content of last meal. Glucose of more than 200 mg/dL in a nonstressed, ambulatory subject supports the diagnosis of Diabetes Mellitus. No Panel InformationOrdered By: Rufus Rankin on 03-14-2023 Estimated GFR (CKD-EPI) > 60.0 mL/Min [facility] Creatinine Clearance (Chem 48.88 [facility] Potassium [Moles/volume] in Serum or PlasmaOrdered By: [facility] on 03-14-2023 Potassium [Moles/Vol] 4.4 mmol/L 3.5-5.1 [facility] Serum or plasma anion gap de terminationOrdered By: [facility] on 03-14-2023 Anion gap [Moles/Vol] 9.8 mmol/L 6.0-15.0 [facility] Sodium [Moles/volume] in Ser um or PlasmaOrdered By: [facility] on 03-14-2023 Sodium [Moles/Vol] 130 mmol/L 136-145 [facility] Thyroid Stimulating Hormoneo n 03-14-2023 TSH Qn 0.04 m[IU]/L Low 0.45-5.33 [facility] Comment on above: Result Comment: PERF ORMED BY: [place] [address] PATHOLOGIST FILEMAKER DEVELOPER RAQUEL LOPEZ M.D. Performed By: #### B VP RHEUMATOLOGY, BMP, PT, PTT, HS TROP, CBC, TSH3, CK #### [facility] [address] Thyrotropin [Units/volume] i n Serum or PlasmaOrdered By: Rufus Ricks on 03-14-2023 TSH Qn 0.04 m[IU]/L 0.45-5.33 [facility] Thyroxine (T4) free [Mass/vo lume] in Serum or PlasmaOrdered By: Rufus Ricks on 03-14-2023 Free T4 [Mass/Vol] 0.72 ng/dL 0.61-1.12 [facility] Triiodothyronine (T3) Freeon 03-14-2023 Triiodothyronine (T3) Free 2.85 pg/mL Normal 2.50-3.90 [facility] Comment on above: Result Comment: PERF ORMED BY: [place] [address] PATHOLOGIST FILEMAKER DEVELOPER RAQUEL LOPEZ M.D. Performed By: #### B VP RHEUMATOLOGY, BMP, PT, PTT, HS TROP, CBC, TSH3, CK #### [facility] [address] Triiodothyronine (T3) Free [ Mass/volume] in Serum or PlasmaOrdered By: Rufus Ricks on 03-14-2023 Free T3 [Mass/Vol] 2.85 pg/mL 2.50-3.90 [facility] Urea nitrogen [Mass/volume] in Serum or PlasmaOrdered By: Rufus Ricks on 03-14-2023 Urea nitrogen [Mass/Vol] 8 mg/dL 725 [facility] Basic Metabolic Panelon 100 Anion gap [Moles/Vol] 13.4 mmol/L Normal 6.0-15.0 [facility] Comment on above: Performed By: #### B VP RHEUMATOLOGY, BMP, PT, PTT, HS TROP, CBC, TSH3, CK #### [facility] [address] [place] [address] [place] Calcium [Mass/Vol] 9.1 mg/dL Normal 8.6-10.3 [facility] Comment on above: Performed By: #### B VP RHEUMATOLOGY, BMP, PT, PTT, HS TROP, CBC, TSH3, CK #### [facility] [address] [place] [address] [place] Chloride [Moles/Vol] 93 mmol/L Low 98-107 [facility] Comment on above: Performed By: #### B VP RHEUMATOLOGY, BMP, PT, PTT, HS TROP, CBC, TSH3, CK #### [facility] [address] [place] [address] [place] CO2 [Moles/Vol] 25.0 mmol/L Normal 21.0-31.0 [facility] Comment on above: Performed By: #### B VP RHEUMATOLOGY, BMP, PT, PTT, HS TROP, CBC, TSH3, CK #### [facility] [address] Creatinine [Mass/Vol] 0.88 mg/dL Normal 0.60-1.20 [facility] Comment on above: Performed By: #### B VP RHEUMATOLOGY, BMP, PT, PTT, HS TROP, CBC, TSH3, CK #### [facility] [address] Creatinine Clr Calc Pharmacy 44.44 [facility] Comment on above: Result Comment: PERF ORMED BY: [place] [address] PATHOLOGIST FILEMAKER DEVELOPER RAQUEL LOPEZ M.D. Performed By: #### B VP RHEUMATOLOGY, BMP, PT, PTT, HS TROP, CBC, TSH3, CK #### [place] [address] [place] GFR/1.73 sq M.predicted MDRD (S/P/Bld) [Vol rate/Area] mL/min/{1.73_m2} [facility] Comment on above: Performed By: #### B VP RHEUMATOLOGY, BMP, PT, PTT, HS TROP, CBC, TSH3, CK #### [facility] [address] Glucose [Mass/Vol] 97 mg/dL Normal 70-100 [facility] Comment on above: Result Comment: [place] Glucose Reference Range is dependent on time and content of last meal. Glucose of more than 200 mg/dL in a nonstressed, ambulatory subject supports the diagnosis of Diabetes Mellitus. ADA recommended reference range Performed By: #### B VP RHEUMATOLOGY, BMP, PT, PTT, HS TROP, CBC, TSH3, CK #### [facility] [address] Potassium [Moles/Vol] 4.4 mmol/L Normal 3.5-5.1 [facility] Comment on above: Performed By: #### B VP RHEUMATOLOGY, BMP, PT, PTT, HS TROP, CBC, TSH3, CK #### [facility] [address] Sodium [Moles/Vol] 127 mmol/L Low 136-145 [facility] Comment on above: Performed By: #### B VP RHEUMATOLOGY, BMP, PT, PTT, HS TROP, CBC, TSH3, CK #### [facility] [address] Urea nitrogen [Mass/Vol] 9 mg/dL Normal 7-25 [facility] Comment on above: Performed By: #### B VP RHEUMATOLOGY, BMP, PT, PTT, HS TROP, CBC, TSH3, CK #### [facility] [address] Activated partial thrombopla stin time (aPTT) in platelet poor plasma by coagulation aOrdered By: Hunter Dhillon on 03-12-2023 aPTT Coag (PPP) [Time] 26.1 s 25.1-36.5 [facility] Comment on above: A hematocrit value g reater than 55% may lead to inaccurate results in coagulation testing. Patients having hematocrit values >55% require a special collection tube for coagulation studies. Please contact the laboratory at [phone] for redraw instructions. Alanine aminotransferase [En zymatic activity/volume] in Serum or PlasmaOrdered By: Hunter Dhillon on 03-12-2023 ALT [Catalytic activity/Vol] 14 U/L 7-52 [facility] Albumin [Mass/volume] in Ser um or Plasma by Bromocresol green (BCG) dye binding methoOrdered By: Hunter Dhillon on 03-12-2023 Albumin BCG dye [Mass/Vol] 4.1 g/dL 3.5-5.7 [facility] Alkaline phosphatase [Enzyma tic activity/volume] in Serum or PlasmaOrdered By: Hunter Dhillon on 03-12-2023 ALP [Catalytic activity/Vol] 40 U/L 34-104 [facility] Aspartate aminotransferase [ Enzymatic activity/volume] in Serum or PlasmaOrdered By: Hunter Dhillon on 03-12-2023 AST [Catalytic activity/Vol] 15 U/L 13-39 [facility] Automated erythrocytes count in urine sediment (number/area)Ordered By: Hunter Dhillon on 03-12-2023 RBC Auto (Urine sed) [#/Area] None seen [HPF] 0-4 [facility] Automated leukocytes count i n urine sediment (number/area)Ordered By: Hunter Dhillon on 03-12-2023 WBC Auto (Urine sed) [#/Area] 5-9 [HPF] 0-4 [facility] B-Type Natriuretic Peptideon 03-12-2023 Natriuretic peptide B (Bld) [Mass/Vol] 83.0 pg/mL Normal 5-100 [facility] Comment on above: Result Comment: PERF ORMED BY: [place] [address] PATHOLOGIST FILEMAKER DEVELOPER RAQUEL LOPEZ M.D. Performed By: #### B VP RHEUMATOLOGY, BMP, PT, PTT, HS TROP, CBC, TSH3, CK #### [address] Basic Metabolic Panelon Anion gap [Moles/Vol] 13.3 mmol/L Normal 6.0-15.0 [facility] Comment on above: Performed By: #### B VP RHEUMATOLOGY, BMP, PT, PTT, HS TROP, CBC, TSH3, CK #### [address] Calcium [Mass/Vol] 9.2 mg/dL Normal 8.6-10.3 [facility] Comment on above: Performed By: #### B VP RHEUMATOLOGY, BMP, PT, PTT, HS TROP, CBC, TSH3, CK #### [address] Chloride [Moles/Vol] 98 mmol/L Normal 98-107 [facility] Comment on above: Performed By: #### B VP RHEUMATOLOGY, BMP, PT, PTT, HS TROP, CBC, TSH3, CK #### [address] CO2 [Moles/Vol] 21.2 mmol/L Normal 21.0-31.0 [facility] Comment on above: Performed By: #### B VP RHEUMATOLOGY, BMP, PT, PTT, HS TROP, CBC, TSH3, CK #### [facility] [address] Creatinine [Mass/Vol] 0.92 mg/dL Normal 0.60-1.20 [facility] Comment on above: Performed By: #### B VP RHEUMATOLOGY, BMP, PT, PTT, HS TROP, CBC, TSH3, CK #### [facility] [address] Creatinine Clr Calc Pharmacy 41.99 [facility] Comment on above: Performed By: #### B VP RHEUMATOLOGY, BMP, PT, PTT, HS TROP, CBC, TSH3, CK #### [facility] [address] [place] [address] [place] GFR/1.73 sq M.predicted MDRD (S/P/Bld) [Vol rate/Area] mL/min/{1.73_m2} [facility] Comment on above: Performed By: #### B VP RHEUMATOLOGY, BMP, PT, PTT, HS TROP, CBC, TSH3, CK #### [facility] [address] Glucose [Mass/Vol] 87 mg/dL Normal 70-100 [facility] Comment on above: Result Comment: [facility] Glucose Reference Range is dependent on time and content of last meal. Glucose of more than 200 mg/dL in a nonstressed, ambulatory subject supports the diagnosis of Diabetes Mellitus. ADA recommended reference range Performed By: #### B VP RHEUMATOLOGY, BMP, PT, PTT, HS TROP, CBC, TSH3, CK #### [facility] [address] Potassium [Moles/Vol] 4.5 mmol/L Normal 3.5-5.1 [facility] Comment on above: Performed By: #### B VP RHEUMATOLOGY, BMP, PT, PTT, HS TROP, CBC, TSH3, CK #### [facility] [address] Sodium [Moles/Vol] 128 mmol/L Low 136-145 [facility] Comment on above: Performed By: #### B VP RHEUMATOLOGY, BMP, PT, PTT, HS TROP, CBC, TSH3, CK #### [facility] [address] [place] [address] [place] Urea nitrogen [Mass/Vol] 11 mg/dL Normal 7-25 [facility] Comment on above: Performed By: #### B VP RHEUMATOLOGY, BMP, PT, PTT, HS TROP, CBC, TSH3, CK #### [facility] [address] Basophils Auto (Bld) [#/Vol] Ordered By: Hunter Dhillon on 03-12-2023 Basophils (Bld) [#/Vol] 0.0 10*3/uL 0.0-0.2 [facility] Basophils/100 WBC Auto (Bld) Ordered By: Hunter Dhillon on 03-12-2023 Basophils/100 WBC (Bld) 0.4 % . [facility] Bilirubin Auto test strip Ql (U)Ordered By: Hunter Dhillon on 03-12-2023 Bilirubin Ql (U) Negative Negative [facility] Bilirubin.direct [Mass/volum e] in Serum or PlasmaOrdered By: Hunter Dhillon on 03-12-2023 Bilirubin.direct [Mass/Vol] 0.10 mg/dL 0.03-0.18 [facility] Bilirubin.total [Mass/volume ] in Serum or PlasmaOrdered By: Hunter Dhillon on 03-12-2023 Bilirubin [Mass/Vol] 0.4 mg/dL 0.3-1.0 [facility] Calcium [Mass/volume] in Ser um or PlasmaOrdered By: Hunter Dhillon on 03-12-2023 Calcium [Mass/Vol] 9.2 mg/dL 8.6-10.3 [facility] Carbon dioxide, total [Moles /volume] in Serum or PlasmaOrdered By: Hunter Dhillon on 03-12-2023 CO2 [Moles/Vol] 21.2 mmol/L 21.0-31.0 [facility] Chloride [Moles/volume] in S yamilex or PlasmaOrdered By: Hunter Dhillon on 03-12-2023 Chloride [Moles/Vol] 98 mmol/L 98-107 [facility] Complete Blood Count Auto Di ffon 03-12-2023 Basophils (Bld) [#/Vol] 0.0 10*3/uL Normal 0.0-0.2 [facility] Comment on above: Result Comment: PERF ORMED BY: [place] [address] PATHOLOGIST FILEMAKER DEVELOPER RAUQEL LOPEZ M.D. Performed By: #### B VP RHEUMATOLOGY, BMP, PT, PTT, HS TROP, CBC, TSH3, CK #### [address] Basophils/100 WBC (Bld) 0.4 % Normal . [facility] Comment on above: Performed By: #### B VP RHEUMATOLOGY, BMP, PT, PTT, HS TROP, CBC, TSH3, CK #### [address] Eosinophils (Bld) [#/Vol] 0.2 10*3/uL Normal 0.0-0.45 [facility] Comment on above: Performed By: #### B VP RHEUMATOLOGY, BMP, PT, PTT, HS TROP, CBC, TSH3, CK #### [address] Eosinophils/100 WBC (Bld) 2.0 % Normal . [facility] Comment on above: Performed By: #### B VP RHEUMATOLOGY, BMP, PT, PTT, HS TROP, CBC, TSH3, CK #### [address] Erythrocyte distribution width (RBC) [Ratio] 12.6 % Normal 11.9-15.3 [facility] Comment on above: Performed By: #### B VP RHEUMATOLOGY, BMP, PT, PTT, HS TROP, CBC, TSH3, CK #### [address] Hematocrit (Bld) [Volume fraction] 35.5 % Normal 34.0-46.4 [facility] Comment on above: Performed By: #### B VP RHEUMATOLOGY, BMP, PT, PTT, HS TROP, CBC, TSH3, CK #### [place] [address] Hemoglobin (Bld) [Mass/Vol] 12.4 g/dL Normal 11.8-15.4 [facility] Comment on above: Performed By: #### B VP RHEUMATOLOGY, BMP, PT, PTT, HS TROP, CBC, TSH3, CK #### [address] Lymphocytes (Bld) [#/Vol] 1.2 10*3/uL Normal 1.00-4.8 [facility] Comment on above: Performed By: #### B VP RHEUMATOLOGY, BMP, PT, PTT, HS TROP, CBC, TSH3, CK #### [address] Lymphocytes/100 WBC (Bld) 13.2 % Normal . [facility] Comment on above: Performed By: #### B VP RHEUMATOLOGY, BMP, PT, PTT, HS TROP, CBC, TSH3, CK #### [address] MCH (RBC) [Entitic mass] 31.9 pg Normal 24.7-34.3 [facility] Comment on above: Performed By: #### B VP RHEUMATOLOGY, BMP, PT, PTT, HS TROP, CBC, TSH3, CK #### [address] MCV (RBC) [Entitic vol] 91.8 fL Normal 80-100 [facility] Comment on above: Performed By: #### B VP RHEUMATOLOGY, BMP, PT, PTT, HS TROP, CBC, TSH3, CK #### [address] Mean Corpuscular HGB Conc 34.7 g/dL Normal 32.0-35.0 [facility] Comment on above: Performed By: #### B VP RHEUMATOLOGY, BMP, PT, PTT, HS TROP, CBC, TSH3, CK #### [address] Monocytes (Bld) [#/Vol] 0.5 10*3/uL Normal 0.0-0.8 [facility] Comment on above: Performed By: #### B VP RHEUMATOLOGY, BMP, PT, PTT, HS TROP, CBC, TSH3, CK #### [facility] [address] [place] [address] [place] Monocytes/100 WBC (Bld) 17.50 % Normal 0.00-20.00 [facility] Comment on above: Performed By: #### B VP RHEUMATOLOGY, BMP, PT, PTT, HS TROP, CBC, TSH3, CK #### [facility] [address] [place] [address] [place] Monocytes/100 WBC (Bld) 5.1 % Normal . [facility] Comment on above: Performed By: #### B VP RHEUMATOLOGY, BMP, PT, PTT, HS TROP, CBC, TSH3, CK #### [address] Neutrophils (Bld) [#/Vol] 7.0 10*3/uL Normal 1.8-7.7 [facility] Comment on above: Performed By: #### B VP RHEUMATOLOGY, BMP, PT, PTT, HS TROP, CBC, TSH3, CK #### [address] Neutrophils/100 WBC (Bld) 79.3 % Normal . [facility] Comment on above: Performed By: #### B VP RHEUMATOLOGY, BMP, PT, PTT, HS TROP, CBC, TSH3, CK #### [address] NRBC% 0.0 /100{WBC} Normal 0-0.5 [facility] Comment on above: Performed By: #### B VP RHEUMATOLOGY, BMP, PT, PTT, HS TROP, CBC, TSH3, CK #### [address] Platelet mean volume (Bld) [Entitic vol] 7.2 fL Normal 6.3-10.7 [facility] Comment on above: Performed By: #### B VP RHEUMATOLOGY, BMP, PT, PTT, HS TROP, CBC, TSH3, CK #### [place] [address] [place] Platelets (Bld) [#/Vol] 237 10*3/uL Normal 150-450 [facility] Comment on above: Performed By: #### B VP RHEUMATOLOGY, BMP, PT, PTT, HS TROP, CBC, TSH3, CK #### [facility] [address] RBC (Bld) [#/Vol] 3.87 10*6/uL Normal 3.60-5.00 [facility] Comment on above: Performed By: #### B VP RHEUMATOLOGY, BMP, PT, PTT, HS TROP, CBC, TSH3, CK #### [facility] [address] WBC (Bld) [#/Vol] 8.9 10*3/uL Normal 3.8-11.6 [facility] Comment on above: Performed By: #### B VP RHEUMATOLOGY, BMP, PT, PTT, HS TROP, CBC, TSH3, CK #### [facility] [address] Creatine Kinaseon 03-12-2023 CK [Catalytic activity/Vol] 20 U/L Low [facility] Comment on above: Performed By: #### B VP RHEUMATOLOGY, BMP, PT, PTT, HS TROP, CBC, TSH3, CK #### [facility] [address] Creatine kinase [Enzymatic a ctivity/volume] in Serum or PlasmaOrdered By: Hunter Dhillon on 03-12-2023 CK [Catalytic activity/Vol] 20 U/L [facility] Creatinine [Mass/volume] in Serum or PlasmaOrdered By: Hunter Dhillon on 03-12-2023 Creatinine [Mass/Vol] 0.92 mg/dL 0.60-1.20 [facility] Dipstick and Microscopicon 1 Appearance (U) Slightly Cloudy Critically abnormal Clear [facility] Comment on above: Order Comment: Name Collection Type:: Clean-Voided Midstream Performed By: #### A DDONUAPLUS #### [address] Bacteria,Urine 1+ High None Seen [facility] Comment on above: Order Comment: Name Collection Type:: Clean-Voided Midstream Result Comment: PERF ORMED BY: [place] [address] PATHOLOGIST FILEMAKER DEVELOPER RAQUEL LOPEZ M.D. Performed By: #### A DDONUAPLUS #### [facility] [address] [place] [address] [place] Bilirubin,Urine Negative Normal Negative [facility] Comment on above: Order Comment: Name Collection Type:: Clean-Voided Midstream Performed By: #### A DDONUAPLUS #### [place] [address] [place] Color (U) Yellow Normal Yellow [facility] Comment on above: Order Comment: Name Collection Type:: Clean-Voided Midstream Performed By: #### A DDONUAPLUS #### [place] [address] [place] Glucose Ql (U) Normal Normal Normal [facility] Comment on above: Order Comment: Name Collection Type:: Clean-Voided Midstream Performed By: #### A DDONUAPLUS #### [place] [address] [place] Ketones Ql (U) Negative Normal Negative [facility] Comment on above: Order Comment: Name Collection Type:: Clean-Voided Midstream Performed By: #### A DDONUAPLUS #### [facility] [address] [place] [address] [place] Leukocyte esterase Test strip Ql (U) 3+ High Negative [facility] Comment on above: Order Comment: Name Collection Type:: Clean-Voided Midstream Performed By: #### A DDONUAPLUS #### [facility] [address] [place] [address] [place] Nitrite,Urine Negative Normal Negative [facility] Comment on above: Order Comment: Name Collection Type:: Clean-Voided Midstream Performed By: #### A DDONUAPLUS #### [facility] [address] [place] [address] [place] Occult Blood,Urine Negative Normal Negative [facility] Comment on above: Order Comment: Name Collection Type:: Clean-Voided Midstream Result Comment: PERF ORMED BY: [place] [address] PATHOLOGIST FILEMAKER DEVELOPER RAQUEL LOPEZ M.D. Performed By: #### A DDONUAPLUS #### [address] pH (U) 7.5 [pH] Normal 5.0-9.0 [facility] Comment on above: Order Comment: Name Collection Type:: Clean-Voided Midstream Performed By: #### A DDONUAPLUS #### [place] [address] [place] Protein,Urine Negative Normal Negative [facility] Comment on above: Order Comment: Name Collection Type:: Clean-Voided Midstream Performed By: #### A DDONUAPLUS #### [address] RBC,Urine None Seen Normal 0-4 [facility] Comment on above: Order Comment: Name Collection Type:: Clean-Voided Midstream Performed By: #### A DDONUAPLUS #### [address] Specificy [place],Urine 1.010 Normal 1.001-1.03 0 [facility] Comment on above: Order Comment: Name Collection Type:: Clean-Voided Midstream Performed By: #### A DDONUAPLUS #### [place] [address] [place] Squamous Epithelial Cell,Urine 5-9 High 0-2 [facility] Comment on above: Order Comment: Name Collection Type:: Clean-Voided Midstream Performed By: #### A DDONUAPLUS #### [place] [address] [place] Urobilinogen,Urine Normal Normal Normal [facility] Comment on above: Order Comment: Name Collection Type:: Clean-Voided Midstream Performed By: #### A DDONUAPLUS #### [place] [address] [place] WBC,Urine 5-9 High 0-4 [facility] Comment on above: Order Comment: Name Collection Type:: Clean-Voided Midstream Performed By: #### A DDONUAPLUS #### [address] ECG 12 lead ECGon 03-12-2023 ECG 12 lead ECG [facility] [place] [address] [place] [address] Electrocardiograph Report Signed Patient: Steven Harding MR#: [id number] 1 : 1940 Acct:[id number] Age/Sex: 83 / F ADM Date: 03/12/23 Loc: Room: [address] [place] [address] Type: ADM INOo Attending Dr: Sima Hdz [...] longer present Confirmed by Zane Michael DO ([id number]) on 03/13/2023 8:21:27 AM Referred By: Electronically Signed By:Zane Michael DO Transcribed By: MUS Signed By Zane Michael DO 3 0821 Normal [facility] Eosinophils Auto (Bld) [#/Vo l]Ordered By: Hunter Dhillon on 03-12-2023 Eosinophils (Bld) [#/Vol] 0.2 10*3/uL 0.0-0.45 [facility] Eosinophils/100 WBC Auto (Bl d)Ordered By: Hunter Dhillon on 03-12-2023 Eosinophils/100 WBC (Bld) 2.0 % . [facility] Erythrocyte distribution wid th Auto (RBC) [Ratio]Ordered By: Hunter Dhillon on 03-12-2023 Erythrocyte distribution width (RBC) [Ratio] 12.6 % 11.9-15.3 [facility] Globulin Calc (S) [Mass/Vol] Ordered By: Hunter Dhillon on 03-12-2023 Globulin (S) [Mass/Vol] 2.2 g/dL [facility] Glucose [Mass/volume] in Ser um or PlasmaOrdered By: Hunter Dhillon on 03-12-2023 Glucose [Mass/Vol] 87 mg/dL 70-100 [facility] Comment on above: ADA recommended refe rence rangeRandom Glucose Reference Range is dependent on time and content of last meal. Glucose of more than 200 mg/dL in a nonstressed, ambulatory subject supports the diagnosis of Diabetes Mellitus. Hematocrit Auto (Bld) [Volum e fraction]Ordered By: Hunter Dhillon on 03-12-2023 Hematocrit (Bld) [Volume fraction] 35.5 % 34.0-46.4 [facility] Hemoglobin [Mass/volume] in BloodOrdered By: Hunter Dhillon on 03-12-2023 Hemoglobin (Bld) [Mass/Vol] 12.4 g/dL 11.8-15.4 [facility] Hepatic Panelon 03-12-2023 Albumin [Mass/Vol] 4.1 g/dL Normal 3.5-5.7 [facility] Comment on above: Performed By: #### B VP RHEUMATOLOGY, BMP, PT, PTT, HS TROP, CBC, TSH3, CK #### [facility] [address] [place] [address] [place] Albumin/Globulin [Mass ratio] 1.9 {ratio} Normal [facility] Comment on above: Performed By: #### B VP RHEUMATOLOGY, BMP, PT, PTT, HS TROP, CBC, TSH3, CK #### [facility] [address] [place] [address] [place] ALP [Catalytic activity/Vol] 40 U/L Normal 34-104 [facility] Comment on above: Performed By: #### B VP RHEUMATOLOGY, BMP, PT, PTT, HS TROP, CBC, TSH3, CK #### [facility] [address] [place] [address] [place] ALT [Catalytic activity/Vol] 14 U/L Normal 7-52 [facility] Comment on above: Performed By: #### B VP RHEUMATOLOGY, BMP, PT, PTT, HS TROP, CBC, TSH3, CK #### [address] AST [Catalytic activity/Vol] 15 U/L Normal 13-39 [facility] Comment on above: Performed By: #### B VP RHEUMATOLOGY, BMP, PT, PTT, HS TROP, CBC, TSH3, CK #### [address] Bilirubin [Mass/Vol] 0.4 mg/dL Normal 0.3-1.0 [facility] Comment on above: Performed By: #### B VP RHEUMATOLOGY, BMP, PT, PTT, HS TROP, CBC, TSH3, CK #### [address] Bilirubin,Indirect 0.3 mg/dL Normal [facility] Comment on above: Performed By: #### B VP RHEUMATOLOGY, BMP, PT, PTT, HS TROP, CBC, TSH3, CK #### [address] Bilirubin.indirect [Mass/Vol] 0.10 mg/dL Normal 0.03-0.18 [facility] Comment on above: Performed By: #### B VP RHEUMATOLOGY, BMP, PT, PTT, HS TROP, CBC, TSH3, CK #### [address] Globulin (S) [Mass/Vol] 2.2 g/dL Normal [facility] Comment on above: Performed By: #### B VP RHEUMATOLOGY, BMP, PT, PTT, HS TROP, CBC, TSH3, CK #### [address] Protein [Mass/Vol] 6.3 g/dL Low 6.4-8.9 [facility] Comment on above: Performed By: #### B VP RHEUMATOLOGY, BMP, PT, PTT, HS TROP, CBC, TSH3, CK #### [address] INR in Platelet poor plasma by Coagulation assayOrdered By: Hunter Dhillon on 03-12-2023 INR Coag (PPP) [Relative time] 0.9 {INR} [facility] Comment on above: INR Therapeutic Rang [...] 03-12-2023 Ketones (U) [Mass/Vol] Negative Negative [facility] Leukocytes [#/volume] correc jazmyne for nucleated erythrocytes in Blood by Automated counOrdered By: Hunter Dhillon on 03-12-2023 WBC corrected for nucl RBC Auto (Bld) [#/Vol] 8.9 10*3/uL 3.8-11.6 [facility] Lymphocytes Auto (Bld) [#/Vo l]Ordered By: Hunter Dhillon on 03-12-2023 Lymphocytes (Bld) [#/Vol] 1.2 10*3/uL 1.00-4.8 [facility] Lymphocytes/100 WBC Auto (Bl d)Ordered By: Hunter Dhillon on 03-12-2023 Lymphocytes/100 WBC (Bld) 13.2 % . [facility] MCH Auto (RBC) [Entitic mass ]Ordered By: Hunter Dhillon on 03-12-2023 MCH (RBC) [Entitic mass] 31.9 pg 24.7-34.3 [facility] MCHC Auto (RBC) [Mass/Vol]Or dered By: Hunter Dhillon on 03-12-2023 MCHC (RBC) [Mass/Vol] 34.7 g/dL 32.0-35.0 [facility] MCV Auto (RBC) [Entitic vol] Ordered By: Hunter Dhillon on 03-12-2023 MCV (RBC) [Entitic vol] 91.8 fL 80-100 [facility] Monocyte distribution width [Entitic volume] in Blood by AutomatedOrdered By: Hunter Dhillon on 03-12-2023 Monocyte distribution width Auto (Bld) [Entitic vol] 17.50 % 0.00-20.00 [facility] Monocytes Auto (Bld) [#/Vol] Ordered By: Hunter Dhillon on 03-12-2023 Monocytes (Bld) [#/Vol] 0.5 10*3/uL 0.0-0.8 [facility] Monocytes/100 WBC Auto (Bld) Ordered By: Hunter Dhillon on 03-12-2023 Monocytes/100 WBC (Bld) 5.1 % . [facility] Natriuretic peptide B [Mass/ Vol]Ordered By: Hunter Dhillon on 03-12-2023 Natriuretic peptide B (Bld) [Mass/Vol] 83.0 pg/mL 5-100 [facility] Neutrophils Auto (Bld) [#/Vo l]Ordered By: Hunter Dhillon on 03-12-2023 Neutrophils (Bld) [#/Vol] 7.0 10*3/uL 1.8-7.7 [facility] Neutrophils/100 WBC Auto (Bl d)Ordered By: Hunter Dhillon on 03-12-2023 Neutrophils/100 WBC (Bld) 79.3 % . [facility] No Panel InformationOrdered By: Hunter Dhillon on 03-12-2023 Estimated GFR (CKD-EPI) > 60.0 mL/Min [facility] Creatinine Clearance (Chem 41.99 [facility] Nucleated erythrocytes [Pres ence] in Blood by Automated countOrdered By: Hunter Dhillon on 03-12-2023 Nucleated RBC Auto Ql (Bld) 0.0 /100{WBC} 0-0.5 [facility] Partial Thromboplastin Timeo n 03-12-2023 aPTT Coag (Bld) [Time] 26.1 s Normal 25.1-36.5 [facility] Comment on above: Result Comment: A he matocrit value greater than 55% may lead to inaccurate results in coagulation testing. Patients having hematocrit values >55% require a special collection tube for coagulation studies. Please contact the laboratory at [phone] for redraw instructions. PERFORMED BY: [facility] [place] [address] PATHOLOGIST FILEMAKER DEVELOPER RAQUEL LOPEZ M.D. Performed By: #### B VP RHEUMATOLOGY, BMP, PT, PTT, HS TROP, CBC, TSH3, CK #### [facility] [address] Platelet mean volume Auto (B ld) [Entitic vol]Ordered By: Hunter Dhillon on 03-12-2023 Platelet mean volume (Bld) [Entitic vol] 7.2 fL 6.3-10.7 [facility] Platelets Auto (Bld) [#/Vol] Ordered By: Hunter Dhillon on 03-12-2023 Platelets (Bld) [#/Vol] 237 10*3/uL 150-450 [facility] Potassium [Moles/volume] in Serum or PlasmaOrdered By: Hunter Dhillon on 03-12-2023 Potassium [Moles/Vol] 4.5 mmol/L 3.5-5.1 [facility] Protein Auto test strip (U) [Mass/Vol]Ordered By: Hunter Dhillon on 03-12-2023 Protein (U) [Mass/Vol] Negative Negative [facility] Protein [Mass/volume] in Ser um or PlasmaOrdered By: Hunter Dhillon on 03-12-2023 Protein [Mass/Vol] 6.3 g/dL 6.4-8.9 [facility] Prothrombin Time INRon 03-12 INR Coag (PPP) [Relative time] 0.9 {INR} Normal [facility] Comment on above: Result Comment: INR [...] 3 - 4.5 Performed By: #### B VP RHEUMATOLOGY, BMP, PT, PTT, HS TROP, CBC, TSH3, CK #### [facility] [address] [place] [id number] [facility] PT Coag (PPP) [Time] 11.3 s Normal 9.0-12.9 [facility] Comment on above: Result Comment: A he matocrit value greater than 55% may lead to inaccurate results in coagulation testing. Patients having hematocrit values >55% require a special collection tube for coagulation studies. Please contact the laboratory at [phone] for redraw instructions. Performed By: #### B VP RHEUMATOLOGY, BMP, PT, PTT, HS TROP, CBC, TSH3, CK #### [facility] [address] Prothrombin time (PT)Ordered By: Hunter Dhillon on 03-12-2023 PT Coag (PPP) [Time] 11.3 s 9.0-12.9 [facility] Comment on above: A hematocrit value g reater than 55% may lead to inaccurate results in coagulation testing. Patients having hematocrit values >55% require a special collection tube for coagulation studies. Please contact the laboratory at [phone] for redraw instructions. RBC Auto (Bld) [#/Vol]Ordere d By: Hunter Dhillon on 03-12-2023 RBC (Bld) [#/Vol] 3.87 10*6/uL 3.60-5.00 [facility] Serum or plasma albumin/glob ulin mass ratioOrdered By: Hunter Dhillon on 03-12-2023 Albumin/Globulin [Mass ratio] 1.9 {ratio} [facility] Serum or plasma anion gap de terminationOrdered By: Hunter Dhillon on 03-12-2023 Anion gap [Moles/Vol] 13.3 mmol/L 6.0-15.0 [facility] Serum or plasma non-glucuron idated bilirubin measurement (mass/volume)Ordered By: Hunter Dhillon on 03-12-2023 Bilirubin.indirect [Mass/Vol] 0.3 mg/dL [facility] Sodium [Moles/volume] in Ser um or PlasmaOrdered By: Hunter Dhillon on 03-12-2023 Sodium [Moles/Vol] 128 mmol/L 136-145 [facility] Squamous epithelial cells de tection in urine sediment by light microscopyOrdered By: Hunter Dhillon on 03-12-2023 Epithelial cells.squamous LM Ql (Urine sed) 5-9 [HPF] 0-2 [facility] Thyroid Stimulating Hormoneo n 03-12-2023 TSH Qn 0.01 m[IU]/L Low 0.45-5.33 [facility] Comment on above: Result Comment: PERF ORMED BY: [address] [address] PATHOLOGIST FILEMAKER DEVELOPER RAQUEL LOPEZ M.D. Performed By: #### B VP RHEUMATOLOGY, BMP, PT, PTT, HS TROP, CBC, TSH3, CK #### [facility] [address] Thyrotropin [Units/volume] i n Serum or PlasmaOrdered By: Hunter Dhillon on 03-12-2023 TSH Qn 0.01 m[IU]/L 0.45-5.33 [facility] Troponin I High Sensitivityo n 03-12-2023 Troponin I High Sensitivity 5.6 pg/mL Normal 0.0-15.0 [facility] Comment on above: Result Comment: PERF ORMED BY: [address] [address] PATHOLOGIST FILEMAKER DEVELOPER RAQUEL LOPEZ M.D. Performed By: #### B VP RHEUMATOLOGY, BMP, PT, PTT, HS TROP, CBC, TSH3, CK #### [facility] [address] [place] [address] Troponin I.cardiac [Mass/vol ume] in Serum or Plasma by Detection limit <= 0.01 ng/Ordered By: Hunter Dhillon on 03-12-2023 Troponin I.cardiac DL <= 0.01 ng/mL [Mass/Vol] 5.6 pg/mL 0.0-15.0 [facility] Urea nitrogen [Mass/volume] in Serum or PlasmaOrdered By: Hunter Dhillon on 03-12-2023 Urea nitrogen [Mass/Vol] 11 mg/dL 7-25 [facility] Urine appearanceOrdered By: Hunter Dhillon on 03-12-2023 Appearance (U) Slightly cloudy Clear [facility] Urine bacteria detection by automated methodOrdered By: Hunter Dhillon on 03-12-2023 Bacteria Auto Ql (U) 1+ None Seen [facility] Urine colorOrdered By: Gera Dhillon on 03-12-2023 Color (U) Yellow Yellow [facility] Urine glucose measurement by automated test strip (mass/volume)Ordered By: Hunter Dhillon on 03-12-2023 Glucose Auto test strip (U) [Mass/Vol] Normal mg/dL Normal [facility] Urine hemoglobin detection b y automated test stripOrdered By: Hunter Dhillon on 03-12-2023 Hemoglobin Auto test strip Ql (U) Negative Negative [facility] Urine leukocyte esterase det ection by automated test stripOrdered By: Hunter Dhillon on 03-12-2023 Leukocyte esterase Auto test strip Ql (U) 3+ Negative [facility] Urine nitrite detection by a utomated test stripOrdered By: Hunter Dhillon on 03-12-2023 Nitrite Auto test strip Ql (U) Negative Negative [facility] Urobilinogen Auto test strip (U) [Mass/Vol]Ordered By: Hunter Dhillon on 03-12-2023 Urobilinogen (U) [Mass/Vol] Normal mg/dL Normal [facility] WBC Auto (Bld) [#/Vol]Ordere d By: Hunter Dhillon on 03-12-2023 WBC (Bld) [#/Vol] 8.9 10*3/uL 3.8-11.6 [facility] pH Auto test strip (U)Ordere d By: Hunter Dhillon on 03-12-2023 pH (U) 1.010 [pH] 1.001-1.03 0 [facility] pH (U) 7.5 [pH] 5.0-9.0 [facility] Basic Metabolic Panelon 09-2 Anion gap [Moles/Vol] 6.6 mmol/L Normal 6.0-15.0 [facility] Comment on above: Performed By: #### B VP RHEUMATOLOGY, BMP, PT, PTT, HS TROP, CBC, TSH3, CK #### [facility] [address] Calcium [Mass/Vol] 8.9 mg/dL Normal 8.6-10.3 [facility] Comment on above: Performed By: #### B VP RHEUMATOLOGY, BMP, PT, PTT, HS TROP, CBC, TSH3, CK #### [facility] [address] Chloride [Moles/Vol] 104 mmol/L Normal 98-107 [facility] Comment on above: Performed By: #### B VP RHEUMATOLOGY, BMP, PT, PTT, HS TROP, CBC, TSH3, CK #### [facility] [address] CO2 [Moles/Vol] 26.8 mmol/L Normal 21.0-31.0 [facility] Comment on above: Performed By: #### B VP RHEUMATOLOGY, BMP, PT, PTT, HS TROP, CBC, TSH3, CK #### [facility] [address] Creatinine [Mass/Vol] 0.83 mg/dL Normal 0.60-1.20 [facility] Comment on above: Performed By: #### B VP RHEUMATOLOGY, BMP, PT, PTT, HS TROP, CBC, TSH3, CK #### [facility] [address] Creatinine Clr Calc Pharmacy 46.94 [facility] Comment on above: Performed By: #### B VP RHEUMATOLOGY, BMP, PT, PTT, HS TROP, CBC, TSH3, CK #### [facility] [address] GFR/1.73 sq M.predicted MDRD (S/P/Bld) [Vol rate/Area] mL/min/{1.73_m2} [facility] Comment on above: Performed By: #### B VP RHEUMATOLOGY, BMP, PT, PTT, HS TROP, CBC, TSH3, CK #### [facility] [address] Glucose [Mass/Vol] 94 mg/dL Normal 70-100 [facility] Comment on above: Result Comment: [facility] Glucose Reference Range is dependent on time and content of last meal. Glucose of more than 200 mg/dL in a nonstressed, ambulatory subject supports the diagnosis of Diabetes Mellitus. ADA recommended reference range Performed By: #### B VP RHEUMATOLOGY, BMP, PT, PTT, HS TROP, CBC, TSH3, CK #### [facility] [address] Potassium [Moles/Vol] 4.4 mmol/L Normal 3.5-5.1 [facility] Comment on above: Performed By: #### B VP RHEUMATOLOGY, BMP, PT, PTT, HS TROP, CBC, TSH3, CK #### [facility] [address] Sodium [Moles/Vol] 133 mmol/L Low 136-145 [facility] Comment on above: Performed By: #### B VP RHEUMATOLOGY, BMP, PT, PTT, HS TROP, CBC, TSH3, CK #### [facility] [address] Urea nitrogen [Mass/Vol] 8 mg/dL Normal 7-25 [facility] Comment on above: Performed By: #### B VP RHEUMATOLOGY, BMP, PT, PTT, HS TROP, CBC, TSH3, CK #### [facility] [address] Basophils Auto (Bld) [#/Vol] Ordered By: Chuck Chacon on 03-07-2023 Basophils (Bld) [#/Vol] 0.0 10*3/uL 0.0-0.2 [facility] Basophils/100 WBC Auto (Bld) Ordered By: Chuck Chacon on 03-07-2023 Basophils/100 WBC (Bld) 0.7 % . [facility] Calcium [Mass/volume] in Ser um or PlasmaOrdered By: Chuck Chacon on 03-07-2023 Calcium [Mass/Vol] 8.9 mg/dL 8.6-10.3 [facility] Carbon dioxide, total [Moles /volume] in Serum or PlasmaOrdered By: Chuck Chacon on 03-07-2023 CO2 [Moles/Vol] 26.8 mmol/L 21.0-31.0 [facility] Chloride [Moles/volume] in S yamilex or PlasmaOrdered By: Chuck Chacon on 03-07-2023 Chloride [Moles/Vol] 104 mmol/L 98-107 [facility] Complete Blood Count Auto Di ffon 03-07-2023 Basophils (Bld) [#/Vol] 0.0 10*3/uL Normal 0.0-0.2 [facility] Comment on above: Result Comment: PERF ORMED BY: [place] [address] PATHOLOGIST FILEMAKER DEVELOPER RAQUEL LOPEZ M.D. Performed By: #### B VP RHEUMATOLOGY, BMP, PT, PTT, HS TROP, CBC, TSH3, CK #### [address] Basophils/100 WBC (Bld) 0.7 % Normal . [facility] Comment on above: Performed By: #### B VP RHEUMATOLOGY, BMP, PT, PTT, HS TROP, CBC, TSH3, CK #### [address] Eosinophils (Bld) [#/Vol] 0.4 10*3/uL Normal 0.0-0.45 [facility] Comment on above: Performed By: #### B VP RHEUMATOLOGY, BMP, PT, PTT, HS TROP, CBC, TSH3, CK #### [address] Eosinophils/100 WBC (Bld) 5.2 % Normal . [facility] Comment on above: Performed By: #### B VP RHEUMATOLOGY, BMP, PT, PTT, HS TROP, CBC, TSH3, CK #### [address] Erythrocyte distribution width (RBC) [Ratio] 12.8 % Normal 11.9-15.3 [facility] Comment on above: Performed By: #### B VP RHEUMATOLOGY, BMP, PT, PTT, HS TROP, CBC, TSH3, CK #### [address] Hematocrit (Bld) [Volume fraction] 35.2 % Normal 34.0-46.4 [facility] Comment on above: Performed By: #### B VP RHEUMATOLOGY, BMP, PT, PTT, HS TROP, CBC, TSH3, CK #### [address] [place] [address] [place] Hemoglobin (Bld) [Mass/Vol] 12.0 g/dL Normal 11.8-15.4 [facility] Comment on above: Performed By: #### B VP RHEUMATOLOGY, BMP, PT, PTT, HS TROP, CBC, TSH3, CK #### [address] Lymphocytes (Bld) [#/Vol] 1.7 10*3/uL Normal 1.00-4.8 [facility] Comment on above: Performed By: #### B VP RHEUMATOLOGY, BMP, PT, PTT, HS TROP, CBC, TSH3, CK #### [address] Lymphocytes/100 WBC (Bld) 24.6 % Normal . [facility] Comment on above: Performed By: #### B VP RHEUMATOLOGY, BMP, PT, PTT, HS TROP, CBC, TSH3, CK #### [address] MCH (RBC) [Entitic mass] 31.6 pg Normal 24.7-34.3 [facility] Comment on above: Performed By: #### B VP RHEUMATOLOGY, BMP, PT, PTT, HS TROP, CBC, TSH3, CK #### [address] MCV (RBC) [Entitic vol] 92.5 fL Normal 80-100 [facility] Comment on above: Performed By: #### B VP RHEUMATOLOGY, BMP, PT, PTT, HS TROP, CBC, TSH3, CK #### [address] Mean Corpuscular HGB Conc 34.1 g/dL Normal 32.0-35.0 [facility] Comment on above: Performed By: #### B VP RHEUMATOLOGY, BMP, PT, PTT, HS TROP, CBC, TSH3, CK #### [address] Monocytes (Bld) [#/Vol] 0.6 10*3/uL Normal 0.0-0.8 [facility] Comment on above: Performed By: #### B VP RHEUMATOLOGY, BMP, PT, PTT, HS TROP, CBC, TSH3, CK #### [address] Monocytes/100 WBC (Bld) 8.7 % Normal . [facility] Comment on above: Performed By: #### B VP RHEUMATOLOGY, BMP, PT, PTT, HS TROP, CBC, TSH3, CK #### [address] Neutrophils (Bld) [#/Vol] 4.2 10*3/uL Normal 1.8-7.7 [facility] Comment on above: Performed By: #### B VP RHEUMATOLOGY, BMP, PT, PTT, HS TROP, CBC, TSH3, CK #### [address] Neutrophils/100 WBC (Bld) 60.8 % Normal . [facility] Comment on above: Performed By: #### B VP RHEUMATOLOGY, BMP, PT, PTT, HS TROP, CBC, TSH3, CK #### [address] NRBC% 0.0 /100{WBC} Normal 0-0.5 [facility] Comment on above: Performed By: #### B VP RHEUMATOLOGY, BMP, PT, PTT, HS TROP, CBC, TSH3, CK #### [address] Platelet mean volume (Bld) [Entitic vol] 7.5 fL Normal 6.3-10.7 [facility] Comment on above: Performed By: #### B VP RHEUMATOLOGY, BMP, PT, PTT, HS TROP, CBC, TSH3, CK #### [place] [address] [place] Platelets (Bld) [#/Vol] 232 10*3/uL Normal 150-450 [facility] Comment on above: Performed By: #### B VP RHEUMATOLOGY, BMP, PT, PTT, HS TROP, CBC, TSH3, CK #### [place] [address] [place] RBC (Bld) [#/Vol] 3.80 10*6/uL Normal 3.60-5.00 [facility] Comment on above: Performed By: #### B VP RHEUMATOLOGY, BMP, PT, PTT, HS TROP, CBC, TSH3, CK #### [facility] [address] [place] [address] [place] WBC (Bld) [#/Vol] 6.8 10*3/uL Normal 3.8-11.6 [facility] Comment on above: Performed By: #### B VP RHEUMATOLOGY, BMP, PT, PTT, HS TROP, CBC, TSH3, CK #### [facility] [address] Creatinine [Mass/volume] in Serum or PlasmaOrdered By: Chuck Chacon on 03-07-2023 Creatinine [Mass/Vol] 0.83 mg/dL 0.60-1.20 [facility] Eosinophils Auto (Bld) [#/Vo l]Ordered By: Chuck Chacon on 03-07-2023 Eosinophils (Bld) [#/Vol] 0.4 10*3/uL 0.0-0.45 [facility] Eosinophils/100 WBC Auto (Bl d)Ordered By: Chuck Chacon on 03-07-2023 Eosinophils/100 WBC (Bld) 5.2 % . [facility] Erythrocyte distribution wid th Auto (RBC) [Ratio]Ordered By: Chuck Chacon on 03-07-2023 Erythrocyte distribution width (RBC) [Ratio] 12.8 % 11.9-15.3 [facility] Glucose [Mass/volume] in Ser um or PlasmaOrdered By: Chuck Chacon on 03-07-2023 Glucose [Mass/Vol] 94 mg/dL 70-100 [facility] Comment on above: ADA recommended refe rence rangeRandom Glucose Reference Range is dependent on time and content of last meal. Glucose of more than 200 mg/dL in a nonstressed, ambulatory subject supports the diagnosis of Diabetes Mellitus. Hematocrit Auto (Bld) [Volum e fraction]Ordered By: Chuck Chacon on 03-07-2023 Hematocrit (Bld) [Volume fraction] 35.2 % 34.0-46.4 [facility] Hemoglobin [Mass/volume] in BloodOrdered By: Chuck Chacon on 03-07-2023 Hemoglobin (Bld) [Mass/Vol] 12.0 g/dL 11.8-15.4 [facility] Leukocytes [#/volume] correc jazmyne for nucleated erythrocytes in Blood by Automated counOrdered By: Chuck Chacon on 03-07-2023 WBC corrected for nucl RBC Auto (Bld) [#/Vol] 6.8 10*3/uL 3.8-11.6 [facility] Lymphocytes Auto (Bld) [#/Vo l]Ordered By: Chuck Chacon on 03-07-2023 Lymphocytes (Bld) [#/Vol] 1.7 10*3/uL 1.00-4.8 [facility] Lymphocytes/100 WBC Auto (Bl d)Ordered By: Chuck Chacon on 03-07-2023 Lymphocytes/100 WBC (Bld) 24.6 % . [facility] MCH Auto (RBC) [Entitic mass ]Ordered By: Chuck Chacon on 03-07-2023 MCH (RBC) [Entitic mass] 31.6 pg 24.7-34.3 [facility] MCHC Auto (RBC) [Mass/Vol]Or dered By: Chuck Chacon on 03-07-2023 MCHC (RBC) [Mass/Vol] 34.1 g/dL 32.0-35.0 [facility] MCV Auto (RBC) [Entitic vol] Ordered By: Chuck Chacon on 03-07-2023 MCV (RBC) [Entitic vol] 92.5 fL 80-100 [facility] Magnesiumon 03-07-2023 Magnesium [Mass/Vol] 1.4 mg/dL Low 1.9-2.7 [facility] Comment on above: Result Comment: PERF ORMED BY: [facility] [address] [address] PATHOLOGIST FILEMAKER DEVELOPER RAQUEL LOPEZ M.D. Performed By: #### B VP RHEUMATOLOGY, BMP, PT, PTT, HS TROP, CBC, TSH3, CK #### [facility] [address] Magnesium [Mass/volume] in S yamilex or PlasmaOrdered By: Chuck Chacon on 03-07-2023 Magnesium [Mass/Vol] 1.4 mg/dL 1.9-2.7 [facility] Monocytes Auto (Bld) [#/Vol] Ordered By: Chuck Chacon on 03-07-2023 Monocytes (Bld) [#/Vol] 0.6 10*3/uL 0.0-0.8 [facility] Monocytes/100 WBC Auto (Bld) Ordered By: Chuck Chacon on 03-07-2023 Monocytes/100 WBC (Bld) 8.7 % . [facility] Neutrophils Auto (Bld) [#/Vo l]Ordered By: Chuckcasandra Chacon on 03-07-2023 Neutrophils (Bld) [#/Vol] 4.2 10*3/uL 1.8-7.7 [facility] Neutrophils/100 WBC Auto (Bl d)Ordered By: Chuck Chacon on 03-07-2023 Neutrophils/100 WBC (Bld) 60.8 % . [facility] No Panel InformationOrdered By: Chuck Chacon on 03-07-2023 Estimated GFR (CKD-EPI) > 60.0 mL/Min [facility] Creatinine Clearance (Chem 46.94 [facility] Nucleated erythrocytes [Pres ence] in Blood by Automated countOrdered By: Chuck Chacon on 03-07-2023 Nucleated RBC Auto Ql (Bld) 0.0 /100{WBC} 0-0.5 [facility] Platelet mean volume Auto (B ld) [Entitic vol]Ordered By: Chuck Chacon on 03-07-2023 Platelet mean volume (Bld) [Entitic vol] 7.5 fL 6.3-10.7 [facility] Platelets Auto (Bld) [#/Vol] Ordered By: Chuck Chacon on 03-07-2023 Platelets (Bld) [#/Vol] 232 10*3/uL 150-450 [facility] Potassium [Moles/volume] in Serum or PlasmaOrdered By: Chuckcasandra Chacon on 03-07-2023 Potassium [Moles/Vol] 4.4 mmol/L 3.5-5.1 [facility] RBC Auto (Bld) [#/Vol]Ordere d By: Chuck pandakpjames on 03-07-2023 RBC (Bld) [#/Vol] 3.80 10*6/uL 3.60-5.00 [facility] Serum or plasma anion gap de terminationOrdered By: Chuckcasandra Chacon on 03-07-2023 Anion gap [Moles/Vol] 6.6 mmol/L 6.0-15.0 [facility] Sodium [Moles/volume] in Ser um or PlasmaOrdered By: Chuckcasandra Chacon on 03-07-2023 Sodium [Moles/Vol] 133 mmol/L 136-145 [facility] Urea nitrogen [Mass/volume] in Serum or PlasmaOrdered By: Chuckcasandra Chacon on 03-07-2023 Urea nitrogen [Mass/Vol] 8 mg/dL 7-25 [facility] WBC Auto (Bld) [#/Vol]Ordere d By: Chuck sunita on 03-07-2023 WBC (Bld) [#/Vol] 6.8 10*3/uL 3.8-11.6 [facility] A1C with Estimated Average G chelo 03-06-2023 Glucose [Mass/Vol] 120 mg/dL Normal [facility] Comment on above: Result Comment: PERF ORMED BY: [place] [address] PATHOLOGIST FILEMAKER DEVELOPER RAQUEL LOPEZ M.D. Performed By: #### B VP RHEUMATOLOGY, BMP, PT, PTT, HS TROP, CBC, TSH3, CK #### [facility] [address] HbA1c (Bld) [Mass fraction] 5.8 % High 4.3-5.6 [facility] Comment on above: Result Comment: Incr eased risk for diabetes: 5.7 - 6.4 diabetes: >6.4 glycemic control for adults with diabetes: <7.0 Performed By: #### B VP RHEUMATOLOGY, BMP, PT, PTT, HS TROP, CBC, TSH3, CK #### [facility] [address] Alanine aminotransferase [En zymatic activity/volume] in Serum or PlasmaOrdered By: Jemal Jones on 03-06-2023 ALT [Catalytic activity/Vol] 17 U/L 7-52 [facility] Albumin [Mass/volume] in Ser um or Plasma by Bromocresol green (BCG) dye binding methoOrdered By: Jemal Jones on 03-06-2023 Albumin BCG dye [Mass/Vol] 4.3 g/dL 3.5-5.7 [facility] Alkaline phosphatase [Enzyma tic activity/volume] in Serum or PlasmaOrdered By: Jemal Jones on 03-06-2023 ALP [Catalytic activity/Vol] 45 U/L 34-104 [facility] Aspartate aminotransferase [ Enzymatic activity/volume] in Serum or PlasmaOrdered By: Jemal Jones on 03-06-2023 AST [Catalytic activity/Vol] 16 U/L 13-39 [facility] Bilirubin.total [Mass/volume ] in Serum or PlasmaOrdered By: Jemal Jones on 03-06-2023 Bilirubin [Mass/Vol] 0.5 mg/dL 0.3-1.0 [facility] Cholesterol [Mass/volume] in Serum or PlasmaOrdered By: Jemal Jones on 03-06-2023 Cholesterol [Mass/Vol] 88 mg/dL 140-200 [facility] Comment on above: Chol less than 200 m g/dl low riskChol 201-239 mg/dl borderline riskChol 240 mg/dl and greater high risk Cholesterol in LDL Calc [Mas s/Vol]Ordered By: Jemal Jones on 03-06-2023 Cholesterol in LDL [Mass/Vol] 29 mg/dL 0-100 [facility] Comment on above: LDL ATP III CLASSIFI CATIONLDL less than 100 mg/dL OptimalLDL 100-129 mg/dL Near or above optimalLDL 130-159 mg/dL Borderline highLDL 160-189 mg/dL HighLDL greater than 189 mg/dL Very high Cholesterol in VLDL Calc [Ma ss/Vol]Ordered By: Jemal Jones on 03-06-2023 Cholesterol in VLDL [Mass/Vol] 16 mg/dL [facility] Complete Blood Count Auto Di ffon 03-06-2023 Basophils (Bld) [#/Vol] 0.0 10*3/uL Normal 0.0-0.2 [facility] Comment on above: Result Comment: PERF ORMED BY: [place] [address] PATHOLOGIST FILEMAKER DEVELOPER RAQUEL LOPEZ M.D. Performed By: #### B VP RHEUMATOLOGY, BMP, PT, PTT, HS TROP, CBC, TSH3, CK #### [address] Basophils/100 WBC (Bld) 0.6 % Normal . [facility] Comment on above: Performed By: #### B VP RHEUMATOLOGY, BMP, PT, PTT, HS TROP, CBC, TSH3, CK #### [facility] [address] [place] [address] [place] Eosinophils (Bld) [#/Vol] 0.3 10*3/uL Normal 0.0-0.45 [facility] Comment on above: Performed By: #### B VP RHEUMATOLOGY, BMP, PT, PTT, HS TROP, CBC, TSH3, CK #### [place] [address] [place] Eosinophils/100 WBC (Bld) 4.2 % Normal . [facility] Comment on above: Performed By: #### B VP RHEUMATOLOGY, BMP, PT, PTT, HS TROP, CBC, TSH3, CK #### [address] Erythrocyte distribution width (RBC) [Ratio] 12.9 % Normal 11.9-15.3 [facility] Comment on above: Performed By: #### B VP RHEUMATOLOGY, BMP, PT, PTT, HS TROP, CBC, TSH3, CK #### [place] [id number] [place] Hematocrit (Bld) [Volume fraction] 37.9 % Normal 34.0-46.4 [facility] Comment on above: Performed By: #### B VP RHEUMATOLOGY, BMP, PT, PTT, HS TROP, CBC, TSH3, CK #### [address] Hemoglobin (Bld) [Mass/Vol] 13.0 g/dL Normal 11.8-15.4 [facility] Comment on above: Performed By: #### B VP RHEUMATOLOGY, BMP, PT, PTT, HS TROP, CBC, TSH3, CK #### [address] Lymphocytes (Bld) [#/Vol] 1.7 10*3/uL Normal 1.00-4.8 [facility] Comment on above: Performed By: #### B VP RHEUMATOLOGY, BMP, PT, PTT, HS TROP, CBC, TSH3, CK #### [address] Lymphocytes/100 WBC (Bld) 22.0 % Normal . [facility] Comment on above: Performed By: #### B VP RHEUMATOLOGY, BMP, PT, PTT, HS TROP, CBC, TSH3, CK #### [address] MCH (RBC) [Entitic mass] 31.5 pg Normal 24.7-34.3 [facility] Comment on above: Performed By: #### B VP RHEUMATOLOGY, BMP, PT, PTT, HS TROP, CBC, TSH3, CK #### [address] MCV (RBC) [Entitic vol] 91.9 fL Normal 80-100 [facility] Comment on above: Performed By: #### B VP RHEUMATOLOGY, BMP, PT, PTT, HS TROP, CBC, TSH3, CK #### [address] Mean Corpuscular HGB Conc 34.3 g/dL Normal 32.0-35.0 [facility] Comment on above: Performed By: #### B VP RHEUMATOLOGY, BMP, PT, PTT, HS TROP, CBC, TSH3, CK #### [facility] [address] [place] [address] [place] Monocytes (Bld) [#/Vol] 0.6 10*3/uL Normal 0.0-0.8 [facility] Comment on above: Performed By: #### B VP RHEUMATOLOGY, BMP, PT, PTT, HS TROP, CBC, TSH3, CK #### [facility] [address] [place] [address] [place] Monocytes/100 WBC (Bld) 8.2 % Normal . [facility] Comment on above: Performed By: #### B VP RHEUMATOLOGY, BMP, PT, PTT, HS TROP, CBC, TSH3, CK #### [address] Neutrophils (Bld) [#/Vol] 5.1 10*3/uL Normal 1.8-7.7 [facility] Comment on above: Performed By: #### B VP RHEUMATOLOGY, BMP, PT, PTT, HS TROP, CBC, TSH3, CK #### [address] Neutrophils/100 WBC (Bld) 65.0 % Normal . [facility] Comment on above: Performed By: #### B VP RHEUMATOLOGY, BMP, PT, PTT, HS TROP, CBC, TSH3, CK #### [address] NRBC% 0.1 /100{WBC} Normal 0-0.5 [facility] Comment on above: Performed By: #### B VP RHEUMATOLOGY, BMP, PT, PTT, HS TROP, CBC, TSH3, CK #### [place] [address] [place] Platelet mean volume (Bld) [Entitic vol] 7.4 fL Normal 6.3-10.7 [facility] Comment on above: Performed By: #### B VP RHEUMATOLOGY, BMP, PT, PTT, HS TROP, CBC, TSH3, CK #### [place] [address] [place] Platelets (Bld) [#/Vol] 257 10*3/uL Normal 150-450 [facility] Comment on above: Performed By: #### B VP RHEUMATOLOGY, BMP, PT, PTT, HS TROP, CBC, TSH3, CK #### [address] RBC (Bld) [#/Vol] 4.12 10*6/uL Normal 3.60-5.00 [facility] Comment on above: Performed By: #### B VP RHEUMATOLOGY, BMP, PT, PTT, HS TROP, CBC, TSH3, CK #### [address] WBC (Bld) [#/Vol] 7.8 10*3/uL Normal 3.8-11.6 [facility] Comment on above: Performed By: #### B VP RHEUMATOLOGY, BMP, PT, PTT, HS TROP, CBC, TSH3, CK #### [address] Comprehensive Metabolic Pane zofia 03-06-2023 Albumin [Mass/Vol] 4.3 g/dL Normal 3.5-5.7 [facility] Comment on above: Performed By: #### B VP RHEUMATOLOGY, BMP, PT, PTT, HS TROP, CBC, TSH3, CK #### [address] Albumin/Globulin [Mass ratio] 1.9 {ratio} Normal [facility] Comment on above: Performed By: #### B VP RHEUMATOLOGY, BMP, PT, PTT, HS TROP, CBC, TSH3, CK #### [address] ALP [Catalytic activity/Vol] 45 U/L Normal 34-104 [facility] Comment on above: Performed By: #### B VP RHEUMATOLOGY, BMP, PT, PTT, HS TROP, CBC, TSH3, CK #### [address] ALT [Catalytic activity/Vol] 17 U/L Normal 7-52 [facility] Comment on above: Performed By: #### B VP RHEUMATOLOGY, BMP, PT, PTT, HS TROP, CBC, TSH3, CK #### [facility] [address] Anion gap [Moles/Vol] 10.4 mmol/L Normal 6.0-15.0 [facility] Comment on above: Performed By: #### B VP RHEUMATOLOGY, BMP, PT, PTT, HS TROP, CBC, TSH3, CK #### [facility] [address] AST [Catalytic activity/Vol] 16 U/L Normal 13-39 [facility] Comment on above: Performed By: #### B VP RHEUMATOLOGY, BMP, PT, PTT, HS TROP, CBC, TSH3, CK #### [facility] [address] Bilirubin [Mass/Vol] 0.5 mg/dL Normal 0.3-1.0 [facility] Comment on above: Performed By: #### B VP RHEUMATOLOGY, BMP, PT, PTT, HS TROP, CBC, TSH3, CK #### [facility] [address] Calcium [Mass/Vol] 9.2 mg/dL Normal 8.6-10.3 [facility] Comment on above: Performed By: #### B VP RHEUMATOLOGY, BMP, PT, PTT, HS TROP, CBC, TSH3, CK #### [facility] [address] Chloride [Moles/Vol] 98 mmol/L Normal 98-107 [facility] Comment on above: Performed By: #### B VP RHEUMATOLOGY, BMP, PT, PTT, HS TROP, CBC, TSH3, CK #### [facility] [address] CO2 [Moles/Vol] 24.9 mmol/L Normal 21.0-31.0 [facility] Comment on above: Performed By: #### B VP RHEUMATOLOGY, BMP, PT, PTT, HS TROP, CBC, TSH3, CK #### [facility] [address] Creatinine [Mass/Vol] 0.85 mg/dL Normal 0.60-1.20 [facility] Comment on above: Performed By: #### B VP RHEUMATOLOGY, BMP, PT, PTT, HS TROP, CBC, TSH3, CK #### [facility] [address] Creatinine Clr Calc Pharmacy 45.45 [facility] Comment on above: Performed By: #### B VP RHEUMATOLOGY, BMP, PT, PTT, HS TROP, CBC, TSH3, CK #### [facility] [address] [place] [address] [place] GFR/1.73 sq M.predicted MDRD (S/P/Bld) [Vol rate/Area] mL/min/{1.73_m2} [facility] Comment on above: Performed By: #### B VP RHEUMATOLOGY, BMP, PT, PTT, HS TROP, CBC, TSH3, CK #### [facility] [address] Globulin (S) [Mass/Vol] 2.3 g/dL [facility] Comment on above: Performed By: #### B VP RHEUMATOLOGY, BMP, PT, PTT, HS TROP, CBC, TSH3, CK #### [facility] [address] Glucose [Mass/Vol] 97 mg/dL Normal 70-100 [facility] Comment on above: Result Comment: [place] Glucose Reference Range is dependent on time and content of last meal. Glucose of more than 200 mg/dL in a nonstressed, ambulatory subject supports the diagnosis of Diabetes Mellitus. ADA recommended reference range Performed By: #### B VP RHEUMATOLOGY, BMP, PT, PTT, HS TROP, CBC, TSH3, CK #### [facility] [address] Potassium [Moles/Vol] 4.3 mmol/L Normal 3.5-5.1 [facility] Comment on above: Performed By: #### B VP RHEUMATOLOGY, BMP, PT, PTT, HS TROP, CBC, TSH3, CK #### [facility] [address] Protein [Mass/Vol] 6.6 g/dL Normal 6.4-8.9 [facility] Comment on above: Performed By: #### B VP RHEUMATOLOGY, BMP, PT, PTT, HS TROP, CBC, TSH3, CK #### [facility] [address] [place] [address] [place] Sodium [Moles/Vol] 129 mmol/L Low 136-145 [facility] Comment on above: Performed By: #### B VP RHEUMATOLOGY, BMP, PT, PTT, HS TROP, CBC, TSH3, CK #### [facility] [address] Urea nitrogen [Mass/Vol] 14 mg/dL Normal 01-03 [facility] Comment on above: Performed By: #### B VP RHEUMATOLOGY, BMP, PT, PTT, HS TROP, CBC, TSH3, CK #### [facility] [address] [place] [address] [place] Dipstick and Microscopicon 0 03-06-2023 Appearance (U) Clear Normal Clear [facility] Comment on above: Order Comment: Name Collection Type:: Clean-Voided Midstream Performed By: #### A DDONUAPLUS #### [address] Bacteria,Urine 1+ High None Seen [facility] Comment on above: Order Comment: Name Collection Type:: Clean-Voided Midstream Performed By: #### A DDONUAPLUS #### [address] Bilirubin,Urine Negative Normal Negative [facility] Comment on above: Order Comment: Name Collection Type:: Clean-Voided Midstream Performed By: #### A DDONUAPLUS #### [place] [address] [place] Color (U) Yellow Normal Yellow [facility] Comment on above: Order Comment: Name Collection Type:: Clean-Voided Midstream Performed By: #### A DDONUAPLUS #### [facility] [address] [place] [address] [place] Glucose Ql (U) Normal Normal Normal [facility] Comment on above: Order Comment: Name Collection Type:: Clean-Voided Midstream Performed By: #### A DDONUAPLUS #### [place] [address] [place] Hyaline Casts,Urine None Seen Normal 0-1 [facility] Comment on above: Order Comment: Name Collection Type:: Clean-Voided Midstream Result Comment: PERF ORMED BY: [place] [address] PATHOLOGIST FILEMAKER DEVELOPER RAQUEL LOPEZ M.D. Performed By: #### A DDONUAPLUS #### [address] Ketones Ql (U) Trace High Negative [facility] Comment on above: Order Comment: Name Collection Type:: Clean-Voided Midstream Performed By: #### A DDONUAPLUS #### [address] Leukocyte esterase Test strip Ql (U) 1+ High Negative [facility] Comment on above: Order Comment: Name Collection Type:: Clean-Voided Midstream Performed By: #### A DDONUAPLUS #### [place] [address] [place] Nitrite,Urine Negative Normal Negative [facility] Comment on above: Order Comment: Name Collection Type:: Clean-Voided Midstream Performed By: #### A DDONUAPLUS #### [place] [address] [place] Occult Blood,Urine Negative Normal Negative [facility] Comment on above: Order Comment: Name Collection Type:: Clean-Voided Midstream Result Comment: PERF ORMED BY: [place] [address] PATHOLOGIST FILEMAKER DEVELOPER RAQUEL LOPEZ M.D. Performed By: #### A DDONUAPLUS #### [place] [address] [place] pH (U) 6.0 [pH] Normal 5.0-9.0 [facility] Comment on above: Order Comment: Name Collection Type:: Clean-Voided Midstream Performed By: #### A DDONUAPLUS #### [address] [place] [address] [place] Protein,Urine Negative Normal Negative [facility] Comment on above: Order Comment: Name Collection Type:: Clean-Voided Midstream Performed By: #### A DDONUAPLUS #### [facility] [address] [place] [address] [place] RBC,Urine None Seen Normal 0-4 [facility] Comment on above: Order Comment: Name Collection Type:: Clean-Voided Midstream Performed By: #### A DDONUAPLUS #### [place] [address] [place] Renal Epithelial Cells,Urine Rare Normal 0-1 [facility] Comment on above: Order Comment: Name Collection Type:: Clean-Voided Midstream Performed By: #### A DDONUAPLUS #### [address] Specificy [place],Urine 1.015 Normal 1.001-1.03 0 [facility] Comment on above: Order Comment: Name Collection Type:: Clean-Voided Midstream Performed By: #### A DDONUAPLUS #### [facility] [address] [place] [address] [place] Squamous Epithelial Cell,Urine 3-4 High 0-2 [facility] Comment on above: Order Comment: Name Collection Type:: Clean-Voided Midstream Performed By: #### A DDONUAPLUS #### [facility] [address] [place] [address] [place] Urobilinogen,Urine Normal Normal Normal [facility] Comment on above: Order Comment: Name Collection Type:: Clean-Voided Midstream Performed By: #### A DDONUAPLUS #### [facility] [address] [place] [address] [place] WBC,Urine 3-4 Normal 0-4 [facility] Comment on above: Order Comment: Name Collection Type:: Clean-Voided Midstream Performed By: #### A DDONUAPLUS #### [facility] [address] [place] [address] ECH echo transthoracicon ECH echo transthoracic [facility] [place] [address] Echocardiogram Signed Patient: Steven Harding MR#: [id number] 1 : 1940 Acct:[id number] Age/Sex: 83 / F ADM Date: 03/05/23 Loc: Room: [address] [place] [address] Type: ADM INOo Attending Dr: Chuck Chacon [...] By: Karli Dougherty MD 03/06/23 1231 Normal [facility] Free T4 (Free Thyroxine)on 0 03-06-2023 Free T4 [Mass/Vol] 1.01 ng/dL Normal 0.61-1.12 [facility] Comment on above: Performed By: #### B VP RHEUMATOLOGY, BMP, PT, PTT, HS TROP, CBC, TSH3, CK #### [facility] [address] Globulin Calc (S) [Mass/Vol] Ordered By: Jemal Jones on 03-06-2023 Globulin (S) [Mass/Vol] 2.3 g/dL [facility] Glucose Glucometer (BldC) [M ass/Vol]Ordered By: Jemal Jones on 03-06-2023 Glucose [Mass/Vol] 104 mg/dL [facility] Comment on above: Random Glucose Refer ence Range is dependent on time and content of last meal. Glucose of more than 200 mg/dL in a nonstressed, ambulatory subject supports the diagnosis of Diabetes Mellitus. Glucose Poct Glucometerson 0 03-06-2023 Glucose [Mass/Vol] 104 mg/dL Normal [facility] Comment on above: Result Comment: [place] om Glucose Reference Range is dependent on time and content of last meal. Glucose of more than 200 mg/dL in a nonstressed, ambulatory subject supports the diagnosis of Diabetes Mellitus. PERFORMED BY: [place] [address] PATHOLOGIST FILEMAKER DEVELOPER RAQUEL LOPEZ M.D. Performed By: #### B VP RHEUMATOLOGY, BMP, PT, PTT, HS TROP, CBC, TSH3, CK #### [facility] [address] Glucose mean value [Mass/vol ume] in Blood Estimated from glycated hemoglobinOrdered By: Jemal Jones on 03-06-2023 Average glucose Estimated from glycated hemoglobin (Bld) [Mass/Vol] 120 mg/dL [facility] Hemoglobin A1c percentageOrd ered By: Jemal Jones on 03-06-2023 HbA1c (Bld) [Mass fraction] 5.8 % 4.3-5.6 [facility] Comment on above: Increased risk for d iabetes: 5.7 - 6.4diabetes: >6.4glycemic control for adults with diabetes: <7.0 Lipid Panelon 03-06-2023 Cholesterol [Mass/Vol] 88 mg/dL Low 140-200 [facility] Comment on above: Result Comment: Chol less than 200 mg/dl low risk Chol 201-239 mg/dl borderline risk Chol 240 mg/dl and greater high risk Performed By: #### B VP RHEUMATOLOGY, BMP, PT, PTT, HS TROP, CBC, TSH3, CK #### [facility] [address] [place] [id number] [facility] Cholesterol in HDL [Mass/Vol] 42 mg/dL Normal 23-92 [facility] Comment on above: Result Comment: HDL CHOL ATP-III CLASSIFICATION Cardiovascular Risk HDL > or equal to 60 mg/dL LOW HDL < 40 mg/dL HIGH Performed By: #### B VP RHEUMATOLOGY, BMP, PT, PTT, HS TROP, CBC, TSH3, CK #### [facility] [address] Cholesterol.total/Chol esterol in HDL [Mass ratio] 2.1 {ratio} Normal <5.0 [facility] Comment on above: Performed By: #### B VP RHEUMATOLOGY, BMP, PT, PTT, HS TROP, CBC, TSH3, CK #### [facility] [address] LDL Cholesterol,Calculated 29 mg/dL Normal 0-100 [facility] Comment on above: Result Comment: LDL ATP III CLASSIFICATION LDL less than 100 mg/dL Optimal LDL 100-129 mg/dL Near or above optimal LDL 130-159 mg/dL Borderline high LDL 160-189 mg/dL High LDL greater than 189 mg/dL Very high Performed By: #### B VP RHEUMATOLOGY, BMP, PT, PTT, HS TROP, CBC, TSH3, CK #### [facility] [address] Triglyceride w/Reflex 84 mg/dL Normal 0-149 [facility] Comment on above: Result Comment: TRIG ATP III CLASSIFICATION TRIG less than 150 mg/dL Normal TRIG 150-199 mg/dL Borderline high TRIG 200-500 mg/dL High TRIG greater than 500 mg/dL Very high Standard traceable to the Center for Disease Conrtrol and Prevention (CDC) test method. Performed By: #### B VP RHEUMATOLOGY, BMP, PT, PTT, HS TROP, CBC, TSH3, CK #### [facility] [address] VLDL CHOLESTEROL 16 mg/dL Normal [facility] Comment on above: Performed By: #### B VP RHEUMATOLOGY, BMP, PT, PTT, HS TROP, CBC, TSH3, CK #### [facility] [address] Magnesiumon 03-06-2023 Magnesium [Mass/Vol] 1.4 mg/dL Low 1.9-2.7 [facility] Comment on above: Performed By: #### B VP RHEUMATOLOGY, BMP, PT, PTT, HS TROP, CBC, TSH3, CK #### [facility] [address] Protein [Mass/volume] in Ser um or PlasmaOrdered By: Jemal Jones on 03-06-2023 Protein [Mass/Vol] 6.6 g/dL 6.4-8.9 [facility] Serum or plasma albumin/glob ulin mass ratioOrdered By: Jemal Jones on 03-06-2023 Albumin/Globulin [Mass ratio] 1.9 {ratio} [facility] Serum or plasma high density lipoprotein (HDL) cholesterol measurementOrdered By: Jemal Jones on 03-06-2023 Cholesterol in HDL [Mass/Vol] 42 mg/dL 23-92 [facility] Comment on above: HDL CHOL ATP-III CLA SSIFICATION Cardiovascular RiskHDL > or equal to 60 mg/dL LOWHDL < 40 mg/dL HIGH Serum or plasma total choles terol/high density lipoprotein (HDL) cholesterol mass ratOrdered By: Jemal Jones on 03-06-2023 Cholesterol.total/Chol esterol in HDL [Mass ratio] 2.1 {ratio} <5.0 [facility] Thyroxine (T4) free [Mass/vo lume] in Serum or PlasmaOrdered By: Jemal Jones on 03-06-2023 Free T4 [Mass/Vol] 1.01 ng/dL 0.61-1.12 [facility] Triglyceride [Mass/volume] i n Serum or PlasmaOrdered By: Jemal Jones on 03-06-2023 Triglyceride [Mass/Vol] 84 mg/dL 0-149 [facility] Comment on above: TRIG ATP III CLASSIF ICATIONTRIG less than 150 mg/dL NormalTRIG 150-199 mg/dL Borderline highTRIG 200-500 mg/dL High TRIG greater than 500 mg/dL Very highStandard traceable to the Center for Disease Conrtrol and Prevention (CDC) test method. Triiodothyronine (T3) Totalo n 03-06-2023 Triiodothyronine (T3) Total 1.29 ng/mL Normal 0.87-1.78 [facility] Comment on above: Result Comment: PERF ORMED BY: [place] [address] PATHOLOGIST FILEMAKER DEVELOPER RAQUEL LOPEZ M.D. Performed By: #### B VP RHEUMATOLOGY, BMP, PT, PTT, HS TROP, CBC, TSH3, CK #### [address] Triiodothyronine (T3) [Mass/ volume] in Serum or PlasmaOrdered By: Jemal Jones on 03-06-2023 T3 [Mass/Vol] 1.29 ng/mL 0.87-1.78 [facility] US carotid doppler BIon 02-11 US carotid doppler BI [facility] [place] [address] [place] [address] Ultrasound Report Signed Patient: Steven Harding MR#: [id number] 1 : 1940 Acct:[id number] Age/Sex: 83 / F ADM Date: 03/05/23 Loc: Room: [address] [place] [address] Type: ADM INOo Attending Dr: Chuck Chacon [...] Bethel Sabillon M.D.03/06/2023 2:21 PM Dictation Location: [facility] Tech: Malra Cottrell Transcribed By: OSCAR 03/06/23 1421 Dictated By: Bethel Sabillon MD 03/06/23 1419 Signed By: 03/06/23 1421 [facility] Activated partial thrombopla stin time (aPTT) in platelet poor plasma by coagulation aOrdered By: Monique Tierney on 03-05-2023 aPTT Coag (PPP) [Time] 25.4 s 25.1-36.5 [facility] Comment on above: A hematocrit value g reater than 55% may lead to inaccurate results in coagulation testing. Patients having hematocrit values >55% require a special collection tube for coagulation studies. Please contact the laboratory at [phone] for redraw instructions. Automated epithelial cells c ount in urine sediment (number/area)Ordered By: Jemal Velar on 03-05-2023 Epithelial cells Auto (Urine sed) [#/Area] 3-4 [HPF] 0-2 [facility] Automated erythrocytes count in urine sediment (number/area)Ordered By: Trasheng Carlosomar on 03-05-2023 RBC Auto (Urine sed) [#/Area] None seen [HPF] 0-4 [facility] Automated leukocytes count i n urine sediment (number/area)Ordered By: Obchapincitodacitlaly Carlosomar on 03-05-2023 WBC Auto (Urine sed) [#/Area] 3-4 [HPF] 0-4 [facility] Automated urine hyaline cast s count (number/volume)Ordered By: Trasheng Carlosomar on 03-05-2023 Hyaline casts Auto (U) [#/Vol] None seen [LPF] 0-1 [facility] B-Type Natriuretic Peptideon 03-05-2023 Natriuretic peptide B (Bld) [Mass/Vol] 42.0 pg/mL Normal 5-100 [facility] Comment on above: Result Comment: PERF ORMED BY: [place] [address] PATHOLOGIST FILEMAKER DEVELOPER RAQUEL LOPEZ M.D. Performed By: #### B VP RHEUMATOLOGY, BMP, PT, PTT, HS TROP, CBC, TSH3, CK #### [address] Basic Metabolic Panelon 02-11 Anion gap [Moles/Vol] 17.1 mmol/L High 6.0-15.0 [facility] Comment on above: Performed By: #### B VP RHEUMATOLOGY, BMP, PT, PTT, HS TROP, CBC, TSH3, CK #### [address] Calcium [Mass/Vol] 9.7 mg/dL Normal 8.6-10.3 [facility] Comment on above: Performed By: #### B VP RHEUMATOLOGY, BMP, PT, PTT, HS TROP, CBC, TSH3, CK #### [facility] [address] Chloride [Moles/Vol] 93 mmol/L Low 98-107 [facility] Comment on above: Performed By: #### B VP RHEUMATOLOGY, BMP, PT, PTT, HS TROP, CBC, TSH3, CK #### [facility] [address] CO2 [Moles/Vol] 19.4 mmol/L Low 21.0-31.0 [facility] Comment on above: Performed By: #### B VP RHEUMATOLOGY, BMP, PT, PTT, HS TROP, CBC, TSH3, CK #### [facility] [address] Creatinine [Mass/Vol] 0.84 mg/dL Normal 0.60-1.20 [facility] Comment on above: Performed By: #### B VP RHEUMATOLOGY, BMP, PT, PTT, HS TROP, CBC, TSH3, CK #### [facility] [address] Creatinine Clr Calc Pharmacy 46.72 [facility] Comment on above: Performed By: #### B VP RHEUMATOLOGY, BMP, PT, PTT, HS TROP, CBC, TSH3, CK #### [facility] [address] GFR/1.73 sq M.predicted MDRD (S/P/Bld) [Vol rate/Area] mL/min/{1.73_m2} [facility] Comment on above: Performed By: #### B VP RHEUMATOLOGY, BMP, PT, PTT, HS TROP, CBC, TSH3, CK #### [facility] [address] Glucose [Mass/Vol] 85 mg/dL Normal 70-100 [facility] Comment on above: Result Comment: [place] Glucose Reference Range is dependent on time and content of last meal. Glucose of more than 200 mg/dL in a nonstressed, ambulatory subject supports the diagnosis of Diabetes Mellitus. ADA recommended reference range Performed By: #### B VP RHEUMATOLOGY, BMP, PT, PTT, HS TROP, CBC, TSH3, CK #### [facility] [address] Potassium [Moles/Vol] 4.5 mmol/L Normal 3.5-5.1 [facility] Comment on above: Performed By: #### B VP RHEUMATOLOGY, BMP, PT, PTT, HS TROP, CBC, TSH3, CK #### [facility] [address] Sodium [Moles/Vol] 125 mmol/L Low 136-145 [facility] Comment on above: Performed By: #### B VP RHEUMATOLOGY, BMP, PT, PTT, HS TROP, CBC, TSH3, CK #### [facility] [address] Urea nitrogen [Mass/Vol] 17 mg/dL Normal 7-25 [facility] Comment on above: Performed By: #### B VP RHEUMATOLOGY, BMP, PT, PTT, HS TROP, CBC, TSH3, CK #### [address] Basophils Auto (Bld) [#/Vol] Ordered By: Monique Tierney on 03-05-2023 Basophils (Bld) [#/Vol] 0.1 10*3/uL 0.0-0.2 [facility] Basophils/100 WBC Auto (Bld) Ordered By: Monique Tierney on 03-05-2023 Basophils/100 WBC (Bld) 0.5 % . [facility] Bilirubin Test strip Ql (U)O rdered By: Jemal Jones on 03-05-2023 Bilirubin Ql (U) Negative Negative [facility] CT angio neckon 03-05-2023 CT angio neck [facility] [place] [address] [place] [address] CT Scan Report Signed Patient: Steven Harding MR#: [id number] 1 : 1940 Acct:[id number] Age/Sex: 83 / F ADM Date: 03/05/23 Loc: ER Room: Type: [facility] ER Attending Dr: Copies to: Monique Tierney MD Ordering Provider: Monique Tierney MD Date of Service: 03/05/23 CT/CT angio neck: episodic dizziness, episode 2 wks ago face tinglin ([id number]) CT/CT angio head: episodic dizziness, episode 2 [...] Bethel Snyder M.D.03/05/2023 7:34 PM Dictation Location: [place] [address] Transcribed By: [facility] 03/05/231933 Dictated By: Bethel Snyder DO 03/05/231928 Signed By: 03/05/231933 [facility] CT head/brain mehdi metcalf 03-05 CT head/brain wo [facility] [place] [address] CT Scan Report Signed Patient: Steven Harding MR#: [id number] 1 : 1940 Acct:[id number] Age/Sex: 83 / F ADM Date: 03/05/23 Loc: ER Room: Type: [facility] ER Attending Dr: Copies to: Monique Tierney [...] Bethel Snyder M.D.03/05/2023 7:29 PM Dictation Location: [place] [address] Transcribed By: [facility] 03/05/231928 Dictated By: Bethel Snyder DO 03/05/231927 Signed By: 03/05/231928 Normal [facility] Calcium [Mass/volume] in Ser um or PlasmaOrdered By: Monique Tierney on 03-05-2023 Calcium [Mass/Vol] 9.7 mg/dL 8.6-10.3 [facility] Carbon dioxide, total [Moles /volume] in Serum or PlasmaOrdered By: Monique Tierney on 03-05-2023 CO2 [Moles/Vol] 19.4 mmol/L 21.0-31.0 [facility] Chloride [Moles/volume] in S yamilex or PlasmaOrdered By: Monique Tierney on 03-05-2023 Chloride [Moles/Vol] 93 mmol/L 98-107 [facility] Color Auto (U)Ordered By: Sukhi Jones on 03-05-2023 Color (U) Yellow Yellow [facility] Complete Blood Count Auto Di ffon 03-05-2023 Basophils (Bld) [#/Vol] 0.1 10*3/uL Normal 0.0-0.2 [facility] Comment on above: Result Comment: PERF ORMED BY: [place] [address] PATHOLOGIST [employer] DEVELOPER RAQUEL LOPEZ M.D. Performed By: #### B VP RHEUMATOLOGY, BMP, PT, PTT, HS TROP, CBC, TSH3, CK #### [address] Basophils/100 WBC (Bld) 0.5 % Normal . [facility] Comment on above: Performed By: #### B VP RHEUMATOLOGY, BMP, PT, PTT, HS TROP, CBC, TSH3, CK #### [address] Eosinophils (Bld) [#/Vol] 0.3 10*3/uL Normal 0.0-0.45 [facility] Comment on above: Performed By: #### B VP RHEUMATOLOGY, BMP, PT, PTT, HS TROP, CBC, TSH3, CK #### [address] Eosinophils/100 WBC (Bld) 2.8 % Normal . [facility] Comment on above: Performed By: #### B VP RHEUMATOLOGY, BMP, PT, PTT, HS TROP, CBC, TSH3, CK #### [address] Erythrocyte distribution width (RBC) [Ratio] 12.8 % Normal 11.9-15.3 [facility] Comment on above: Performed By: #### B VP RHEUMATOLOGY, BMP, PT, PTT, HS TROP, CBC, TSH3, CK #### [address] Hematocrit (Bld) [Volume fraction] 39.9 % Normal 34.0-46.4 [facility] Comment on above: Performed By: #### B VP RHEUMATOLOGY, BMP, PT, PTT, HS TROP, CBC, TSH3, CK #### [address] [address] [place] Hemoglobin (Bld) [Mass/Vol] 13.6 g/dL Normal 11.8-15.4 [facility] Comment on above: Performed By: #### B VP RHEUMATOLOGY, BMP, PT, PTT, HS TROP, CBC, TSH3, CK #### [address] Lymphocytes (Bld) [#/Vol] 1.7 10*3/uL Normal 1.00-4.8 [facility] Comment on above: Performed By: #### B VP RHEUMATOLOGY, BMP, PT, PTT, HS TROP, CBC, TSH3, CK #### [address] Lymphocytes/100 WBC (Bld) 14.7 % Normal . [facility] Comment on above: Performed By: #### B VP RHEUMATOLOGY, BMP, PT, PTT, HS TROP, CBC, TSH3, CK #### [address] MCH (RBC) [Entitic mass] 31.3 pg Normal 24.7-34.3 [facility] Comment on above: Performed By: #### B VP RHEUMATOLOGY, BMP, PT, PTT, HS TROP, CBC, TSH3, CK #### [address] MCV (RBC) [Entitic vol] 91.9 fL Normal 80-100 [facility] Comment on above: Performed By: #### B VP RHEUMATOLOGY, BMP, PT, PTT, HS TROP, CBC, TSH3, CK #### [address] Mean Corpuscular HGB Conc 34.0 g/dL Normal 32.0-35.0 [facility] Comment on above: Performed By: #### B VP RHEUMATOLOGY, BMP, PT, PTT, HS TROP, CBC, TSH3, CK #### [address] Monocytes (Bld) [#/Vol] 0.6 10*3/uL Normal 0.0-0.8 [facility] Comment on above: Performed By: #### B VP RHEUMATOLOGY, BMP, PT, PTT, HS TROP, CBC, TSH3, CK #### [place] [address] [place] Monocytes/100 WBC (Bld) 18.39 % Normal 0.00-20.00 [facility] Comment on above: Performed By: #### B VP RHEUMATOLOGY, BMP, PT, PTT, HS TROP, CBC, TSH3, CK #### [place] [address] [place] Monocytes/100 WBC (Bld) 5.4 % Normal . [facility] Comment on above: Performed By: #### B VP RHEUMATOLOGY, BMP, PT, PTT, HS TROP, CBC, TSH3, CK #### [address] Neutrophils (Bld) [#/Vol] 8.7 10*3/uL High 1.8-7.7 [facility] Comment on above: Performed By: #### B VP RHEUMATOLOGY, BMP, PT, PTT, HS TROP, CBC, TSH3, CK #### [address] Neutrophils/100 WBC (Bld) 76.6 % Normal . [facility] Comment on above: Performed By: #### B VP RHEUMATOLOGY, BMP, PT, PTT, HS TROP, CBC, TSH3, CK #### [address] NRBC% 0.1 /100{WBC} Normal 0-0.5 [facility] Comment on above: Performed By: #### B VP RHEUMATOLOGY, BMP, PT, PTT, HS TROP, CBC, TSH3, CK #### [address] Platelet mean volume (Bld) [Entitic vol] 7.5 fL Normal 6.3-10.7 [facility] Comment on above: Performed By: #### B VP RHEUMATOLOGY, BMP, PT, PTT, HS TROP, CBC, TSH3, CK #### [place] [address] [place] Platelets (Bld) [#/Vol] 285 10*3/uL Normal 150-450 [facility] Comment on above: Performed By: #### B VP RHEUMATOLOGY, BMP, PT, PTT, HS TROP, CBC, TSH3, CK #### [facility] [address] RBC (Bld) [#/Vol] 4.34 10*6/uL Normal 3.60-5.00 [facility] Comment on above: Performed By: #### B VP RHEUMATOLOGY, BMP, PT, PTT, HS TROP, CBC, TSH3, CK #### [facility] [address] WBC (Bld) [#/Vol] 11.4 10*3/uL Normal 3.8-11.6 [facility] Comment on above: Performed By: #### B VP RHEUMATOLOGY, BMP, PT, PTT, HS TROP, CBC, TSH3, CK #### [facility] [address] Creatine Kinaseon 03-05-2023 CK [Catalytic activity/Vol] 18 U/L Low [facility] Comment on above: Performed By: #### B VP RHEUMATOLOGY, BMP, PT, PTT, HS TROP, CBC, TSH3, CK #### [facility] [address] Creatine kinase [Enzymatic a ctivity/volume] in Serum or PlasmaOrdered By: Monique Tierney on 03-05-2023 CK [Catalytic activity/Vol] 18 U/L [facility] Creatinine [Mass/volume] in Serum or PlasmaOrdered By: Monique Tierney on 03-05-2023 Creatinine [Mass/Vol] 0.84 mg/dL 0.60-1.20 [facility] ECG 12 lead ECGon 03-05-2023 ECG 12 lead ECG [facility] [place] [address] [place] [address] Electrocardiograph Report Signed Patient: Steven Harding MR#: [id number] 1 : 1940 Acct:[id number] Age/Sex: 83 / F ADM Date: 03/05/23 Loc: Room: [address] [place] [address] Type: ADM INOo Attending Dr: Chuck Chacon [...] fascicular block Confirmed by Hoang Mancia DO ([id number]) on 03/06/2023 8:08:36 PM Referred By: Electronically Signed By:Hoang Mancia DO Transcribed By: MUS Signed By Hoang Mancia DO 2007 Normal [facility] Eosinophils Auto (Bld) [#/Vo l]Ordered By: Monique Tierney on 03-05-2023 Eosinophils (Bld) [#/Vol] 0.3 10*3/uL 0.0-0.45 [facility] Eosinophils/100 WBC Auto (Bl d)Ordered By: Monique Tierney on 03-05-2023 Eosinophils/100 WBC (Bld) 2.8 % . [facility] Erythrocyte distribution wid th Auto (RBC) [Ratio]Ordered By: Monique Tierney on 03-05-2023 Erythrocyte distribution width (RBC) [Ratio] 12.8 % 11.9-15.3 [facility] Glucose [Mass/volume] in Ser um or PlasmaOrdered By: Monique Tierney on 03-05-2023 Glucose [Mass/Vol] 85 mg/dL 70-100 [facility] Comment on above: ADA recommended refe rence rangeRandom Glucose Reference Range is dependent on time and content of last meal. Glucose of more than 200 mg/dL in a nonstressed, ambulatory subject supports the diagnosis of Diabetes Mellitus. Hematocrit Auto (Bld) [Volum e fraction]Ordered By: Monique Tierney on 03-05-2023 Hematocrit (Bld) [Volume fraction] 39.9 % 34.0-46.4 [facility] Hemoglobin [Mass/volume] in BloodOrdered By: Monique Tierney on 03-05-2023 Hemoglobin (Bld) [Mass/Vol] 13.6 g/dL 11.8-15.4 [facility] INR in Platelet poor plasma by Coagulation assayOrdered By: Monique Tierney on 03-05-2023 INR Coag (PPP) [Relative time] 0.9 {INR} [facility] Comment on above: INR Therapeutic Rang [...] 03-05-2023 Ketones (U) [Mass/Vol] Trace Negative [facility] Leukocytes [#/volume] correc jazmyne for nucleated erythrocytes in Blood by Automated counOrdered By: Monique Tierney on 03-05-2023 WBC corrected for nucl RBC Auto (Bld) [#/Vol] 11.4 10*3/uL 3.8-11.6 [facility] Lymphocytes Auto (Bld) [#/Vo l]Ordered By: Monique Tierney on 03-05-2023 Lymphocytes (Bld) [#/Vol] 1.7 10*3/uL 1.00-4.8 [facility] Lymphocytes/100 WBC Auto (Bl d)Ordered By: Monique Tierney on 03-05-2023 Lymphocytes/100 WBC (Bld) 14.7 % . [facility] MCH Auto (RBC) [Entitic mass ]Ordered By: Monique Tierney on 03-05-2023 MCH (RBC) [Entitic mass] 31.3 pg 24.7-34.3 [facility] MCHC Auto (RBC) [Mass/Vol]Or dered By: Monique Tierney on 03-05-2023 MCHC (RBC) [Mass/Vol] 34.0 g/dL 32.0-35.0 [facility] MCV Auto (RBC) [Entitic vol] Ordered By: Monique Tierney on 03-05-2023 MCV (RBC) [Entitic vol] 91.9 fL 80-100 [facility] Monocyte distribution width [Entitic volume] in Blood by AutomatedOrdered By: Monique Tierney on 03-05-2023 Monocyte distribution width Auto (Bld) [Entitic vol] 18.39 % 0.00-20.00 [facility] Monocytes Auto (Bld) [#/Vol] Ordered By: Monique Tierney on 03-05-2023 Monocytes (Bld) [#/Vol] 0.6 10*3/uL 0.0-0.8 [facility] Monocytes/100 WBC Auto (Bld) Ordered By: Monique Tierney on 03-05-2023 Monocytes/100 WBC (Bld) 5.4 % . [facility] Natriuretic peptide B [Mass/ Vol]Ordered By: Monique Tierney on 03-05-2023 Natriuretic peptide B (Bld) [Mass/Vol] 42.0 pg/mL 5-100 [facility] Neutrophils Auto (Bld) [#/Vo l]Ordered By: Monique Tierney on 03-05-2023 Neutrophils (Bld) [#/Vol] 8.7 10*3/uL 1.8-7.7 [facility] Neutrophils/100 WBC Auto (Bl d)Ordered By: Monique Tierney on 03-05-2023 Neutrophils/100 WBC (Bld) 76.6 % . [facility] Nitrite Test strip Ql (U)Ord ered By: Jemal Jones on 03-05-2023 Nitrite Ql (U) Negative Negative [facility] No Panel InformationOrdered By: Monique Tierney on 03-05-2023 Estimated GFR (CKD-EPI) > 60.0 mL/Min [facility] Creatinine Clearance (Chem 46.72 [facility] Nucleated erythrocytes [Pres ence] in Blood by Automated countOrdered By: Monique Tierney on 03-05-2023 Nucleated RBC Auto Ql (Bld) 0.1 /100{WBC} 0-0.5 [facility] Partial Thromboplastin Timeo n 03-05-2023 aPTT Coag (Bld) [Time] 25.4 s Normal 25.1-36.5 [facility] Comment on above: Result Comment: A he matocrit value greater than 55% may lead to inaccurate results in coagulation testing. Patients having hematocrit values >55% require a special collection tube for coagulation studies. Please contact the laboratory at [phone] for redraw instructions. PERFORMED BY: [address] [place] [address] PATHOLOGIST FILEMAKER DEVELOPER RAQUEL LOPEZ M.D. Performed By: #### B VP RHEUMATOLOGY, BMP, PT, PTT, HS TROP, CBC, TSH3, CK #### [facility] [address] [place] [address] [facility] Platelet mean volume Auto (B ld) [Entitic vol]Ordered By: Monique Tierney on 03-05-2023 Platelet mean volume (Bld) [Entitic vol] 7.5 fL 6.3-10.7 [facility] Platelets Auto (Bld) [#/Vol] Ordered By: Monique Tierney on 03-05-2023 Platelets (Bld) [#/Vol] 285 10*3/uL 150-450 [facility] Potassium [Moles/volume] in Serum or PlasmaOrdered By: Monique Tierney on 03-05-2023 Potassium [Moles/Vol] 4.5 mmol/L 3.5-5.1 [facility] Protein Auto test strip (U) [Mass/Vol]Ordered By: Jemal Jones on 03-05-2023 Protein (U) [Mass/Vol] Negative Negative [facility] Prothrombin Time INRon 03-05 INR Coag (PPP) [Relative time] 0.9 {INR} Normal [facility] Comment on above: Result Comment: INR [...] 3 - 4.5 Performed By: #### B VP RHEUMATOLOGY, BMP, PT, PTT, HS TROP, CBC, TSH3, CK #### [facility] [address] [place] [address] [facility] PT Coag (PPP) [Time] 10.9 s Normal 9.0-12.9 [facility] Comment on above: Result Comment: A he matocrit value greater than 55% may lead to inaccurate results in coagulation testing. Patients having hematocrit values >55% require a special collection tube for coagulation studies. Please contact the laboratory at [phone] for redraw instructions. Performed By: #### B VP RHEUMATOLOGY, BMP, PT, PTT, HS TROP, CBC, TSH3, CK #### [facility] [address] [place] [address] [facility] Prothrombin time (PT)Ordered By: Monique Tierney on 03-05-2023 PT Coag (PPP) [Time] 10.9 s 9.0-12.9 [facility] Comment on above: A hematocrit value g reater than 55% may lead to inaccurate results in coagulation testing. Patients having hematocrit values >55% require a special collection tube for coagulation studies. Please contact the laboratory at [phone] for redraw instructions. RBC Auto (Bld) [#/Vol]Ordere d By: Monique Tierney on 03-05-2023 RBC (Bld) [#/Vol] 4.34 10*6/uL 3.60-5.00 [facility] Serum or plasma anion gap de terminationOrdered By: Monique Tierney on 03-05-2023 Anion gap [Moles/Vol] 17.1 mmol/L 6.0-15.0 [facility] Sodium [Moles/volume] in Ser um or PlasmaOrdered By: Monique Tierney on 03-05-2023 Sodium [Moles/Vol] 125 mmol/L 136-145 [facility] Specific gravity Auto test s trip (U) [Rel density]Ordered By: Jemal Jones on 03-05-2023 Specific gravity (U) [Rel density] 1.015 1.001-1.03 0 [facility] Thyroid Stimulating Hormoneo n 03-05-2023 TSH Qn 0.01 m[IU]/L Low 0.45-5.33 [facility] Comment on above: Result Comment: PERF ORMED BY: [place] [address] PATHOLOGIST FILEMAKER DEVELOPER RAQUEL LOPEZ M.D. Performed By: #### B VP RHEUMATOLOGY, BMP, PT, PTT, HS TROP, CBC, TSH3, CK #### [facility] [address] Thyrotropin [Units/volume] i n Serum or PlasmaOrdered By: Monique Tierney on 03-05-2023 TSH Qn 0.01 m[IU]/L 0.45-5.33 [facility] Troponin I High Sensitivityo n 03-05-2023 Troponin I High Sensitivity 6.3 pg/mL Normal 0.0-15.0 [facility] Comment on above: Result Comment: PERF ORMED BY: [place] [address] PATHOLOGIST FILEMAKER DEVELOPER RAQUEL LOPEZ M.D. Performed By: #### B VP RHEUMATOLOGY, BMP, PT, PTT, HS TROP, CBC, TSH3, CK #### [address] Troponin I.cardiac [Mass/vol ume] in Serum or Plasma by Detection limit <= 0.01 ng/Ordered By: Monique Tierney on 03-05-2023 Troponin I.cardiac DL <= 0.01 ng/mL [Mass/Vol] 6.3 pg/mL 0.0-15.0 [facility] Urea nitrogen [Mass/volume] in Serum or PlasmaOrdered By: Monique Tierney on 03-05-2023 Urea nitrogen [Mass/Vol] 17 mg/dL 7-25 [facility] Urine bacteria detection by automated methodOrdered By: Jemal Jones on 03-05-2023 Bacteria Auto Ql (U) 1+ None Seen [facility] Urine clarity by refractomet ry automatedOrdered By: Jemal Jones on 03-05-2023 Clarity Refractometry automated (U) Clear Clear [facility] Urine glucose measurement by automated test strip (mass/volume)Ordered By: Jemal Jones on 03-05-2023 Glucose Auto test strip (U) [Mass/Vol] Normal mg/dL Normal [facility] Urine hemoglobin detection b y automated test stripOrdered By: Jemal Jones on 03-05-2023 Hemoglobin Auto test strip Ql (U) Negative Negative [facility] Urine leukocyte esterase det ection by automated test stripOrdered By: Jemal Jones on 03-05-2023 Leukocyte esterase Auto test strip Ql (U) 1+ Negative [facility] Urine sediment renal epithel ial cell count by microscopy (number/high power field)Ordered By: Jemal Jones on 03-05-2023 Epithelial cells.renal LM.HPF (Urine sed) [#/Area] Rare [HPF] 0-1 [facility] Urobilinogen Auto test strip (U) [Mass/Vol]Ordered By: Jemal Jones on 03-05-2023 Urobilinogen (U) [Mass/Vol] Normal mg/dL Normal [facility] WBC Auto (Bld) [#/Vol]Ordere d By: Monique Tierney on 03-05-2023 WBC (Bld) [#/Vol] 11.4 10*3/uL 3.8-11.6 [facility] XR chest 2V*on 03-05-2023 XR chest 2V* [place] [address] XRay Report Signed Patient: Steven Harding MR#: [id number] 1 : 1940 Acct:[id number] Age/Sex: 83 / F ADM Date: 03/05/23 Loc: ER Room: Type: [facility] ER Attending Dr: Copies to: Monique Tierney [...] Bethel Snyder M.D.03/05/2023 7:27 PM Dictation Location: [place] [address] Transcribed By: [facility] 03/05/231926 Dictated By: Bethel Snyder DO 03/05/231925 Signed By: 03/05/231926 Normal [facility] pH Auto test strip (U)Ordere d By: Jemal Jones on 03-05-2023 pH (U) 6.0 [pH] 5.0-9.0 [facility] Office Visit (Cardiology)on 02-16-2023 Follow-up visit [...] Weight Tips; Status:Complete - Retrospective Authorization; Done: [id number] Some eating tips that can help you lose weight.; Status:Complete - Retrospective Authorization; Done: 12Uts0431 PMH: Coronary artery disease involving white earth coronary artery of white earth heart without angina pectoris, Mixed hyperlipidemia Renew: Atorvastatin Calcium 80 MG Oral Tablet; TAKE 1 TABLET AT BEDTIME SocHx: Former smoker Tobacco Use Screening; Status:Complete; Done: 16Feb2023 Status post percutaneous transluminal coronary angioplasty, Two-vessel [...] FOR CHEST PAIN.CALL 911 IF PAIN PERSISTS. VP RHEUMATOLOGY Thyroid 60 MG Oral TabletTAKE 1 TABLET [...] No alcoho (more content not included)... Normal [employer] Tobacco Screening.on 023 Fall risk assessment a) No falls within the last year [facility] [employer] 250 DO Work Phone: Tobacco use status [facility]PHS b) No -[facility] [employer] 250 DO Work Phone: REVERSE T3on 10-17-2022 Reverse T3, Serum 18.8 ng/dL Normal 9.2-24.1 [facility] Comment on above: Performed By: #### R EVRT3 #### [facility] [address] [place] [address] [address] Ellie Smith T3, TOTAL (TRIIODOTHYRONINE) on 10-06-2022 T3, TOTAL 137 ng/dL Normal 71-180 [facility] Comment on above: Performed By: #### P OCGLUC #### [facility] [address] [place] [address] [address] Ellie Smith FREE T3on 10-05-2022 FREE T3 3.03 pg/mlL Normal 2.18-3.98 [facility] Comment on above: Performed By: #### L ACT #### [facility] [address] [place] [address] [address] Ellie Smith FREE T4on 10-05-2022 Free T4 [Mass/Vol] 1.02 ng/dL Normal 0.76-1.46 [facility] Comment on above: Performed By: #### F T4 #### [facility] [address] [place], [place] [address] Dr. Ellie Smith TSHon 10-05-2022 TSH 0.032 uIU/mL Critically low 0.358-3.74 0 [facility] Comment on above: Performed By: #### L ACT #### [facility] [address] [place] [id number] Ellie Smith Office Visit (Cardiology)on 08-24-2022 [...] Done: 24Aug2022 PMH: Coronary artery disease involving white earth coronary artery of white earth heart without angina pectoris Renew: Aspirin EC 81 MG Oral Tablet Delayed Release; TAKE 1 TABLET DAILY Renew: Clopidogrel Bisulfate 75 MG Oral Tablet; TAKE 1 TABLET BY MOUTH DAILY PMH: Coronary artery disease involving white earth coronary artery of white earth heart without angina pectoris, Hypertension, benign Renew: Losartan Potassium 100 MG Oral Tablet; TAKE 1 TABLET DAILY PMH: Coronary artery disease involving white earth coronary artery of white earth heart without angina pectoris, Mixed hyperlipidemia Renew: [...] FOR CHEST PAIN.CALL 911 IF PAIN PERSISTS. VP RHEUMATOLOGY Thyroid 60 MG Oral TabletTAKE 1 TABLET [...] HPI. Respirat (more content not included)... Normal [employer] Tobacco Screening.on 023 Adult depression screening assessment [facility] [employer] 250 DO Work Phone: Fall risk assessment a) No falls within the last year [facility] [employer] 250 DO Work Phone: Tobacco use status CPHS b) No -[facility] [employer] 250 DO Work Phone: GLYCOHEMOGLOBIN A1Con 2022 ADA RECOMMENDATION SEE BELOW Normal [facility] Comment on above: Result Comment: ADA RECOMMENDED LIMIT 4.0 - 6.0 ADA THERAPEUTIC TARGET < 7.0 ACTION SUGGESTED > 7.0 Performed By: #### A 1C #### [facility] [address] [place] [address] [address] Ellie Smith Glucose [Mass/Vol] 114 mg/dL Normal [facility] Comment on above: Performed By: #### A 1C #### [facility] [address] [place] [address] [address] Ellie Smith HbA1c (Bld) [Mass fraction] 5.6 % Normal 4.5-6.2 [facility] Comment on above: Performed By: #### A 1C #### [facility] [address] [place] [address] [address] Ellie Smith LIPID PROFILEon 08-15-2022 CHOL-HDL RATIO NORM SEE BELOW Normal [facility] Comment on above: Result Comment: 3.3 - 4.4 LOW RISK 4.4 - 7.1 AVERAGE RISK 7.1 - 11.0 MODERATE RISK >11.0 HIGH RISK Performed By: #### R EVRT3 #### [facility] [address] [address] [address] Ellie Smith Cholesterol [Mass/Vol] 116 mg/dL Normal <=200 [facility] Comment on above: Performed By: #### R EVRT3 #### [facility] [address] [address] [address] Ellie Smith Cholesterol in HDL [Mass/Vol] 60 mg/dL Normal 40-60 [facility] Comment on above: Performed By: #### R EVRT3 #### [facility] [address] [address] [address] Ellie Smith Cholesterol in LDL [Mass/Vol] 46.0 mg/dL Normal [facility] Comment on above: Performed By: #### R EVRT3 #### [facility] [address] [address] [address] Ellie Smith Cholesterol.total/Chol esterol in HDL [Mass ratio] 1.9 {ratio} Normal [facility] Comment on above: Performed By: #### R EVRT3 #### [facility] [address] [address] [address] Ellie Smith HDL NORMAL > or = 60 mg/dl - LO W CARDIOVASCULAR RISK <40 mg/dl - HIGH CARDIOVASCULAR RISK Normal [facility] Comment on above: Performed By: #### R EVRT3 #### [facility] [address] [address] [address] Ellie Smith LDL CALC NORMAL SEE BELOW Normal [facility] Comment on above: Result Comment: <100 mg/dl OPTIMAL 100 - 129 mg/dl NEAR OR ABOVE OPTIMAL 130 - 159 mg/dl BORDERLINE HIGH 160 - 189 mg/dl HIGH >190 mg/dl VERY HIGH Performed By: #### R EVRT3 #### [facility] [address] [address] [address] Ellie Smith Triglyceride [Mass/Vol] 50 mg/dL Normal <=150 [facility] Comment on above: Performed By: #### R EVRT3 #### [facility] [address] [place] [address] Dr. Ellie Smith VLDL CALC 10.0 mg/dL Normal [facility] Comment on above: Performed By: #### R EVRT3 #### [facility] [address] [place] [address] Dr. Ellie Smith PROF 14(COMP METB)on 023 Albumin [Mass/Vol] 3.9 g/dL Normal 3.4-5.0 [facility] Comment on above: Performed By: #### R EVRT3 #### [facility] [address] [place] [address] Dr. Ellie Smith Albumin/Globulin [Mass ratio] 1.2 {ratio} Normal [facility] Comment on above: Performed By: #### R EVRT3 #### [facility] [address] [place] [address] Dr. Ellie Smith ALP [Catalytic activity/Vol] 56 U/L Normal 46-116 [facility] Comment on above: Performed By: #### R EVRT3 #### [facility] [address] [place] [address] Dr. Ellie Smith ALT [Catalytic activity/Vol] 27 U/L Normal 14-59 [facility] Comment on above: Performed By: #### R EVRT3 #### [facility] [address] [place] [address] Dr. Ellie Smith Anion gap [Moles/Vol] 14.1 mmol/L Normal [facility] Comment on above: Performed By: #### R EVRT3 #### [facility] [address] [place] [address] Dr. Ellie Smith AST [Catalytic activity/Vol] 18 U/L Normal 15-37 [facility] Comment on above: Performed By: #### R EVRT3 #### [facility] [address] [place] [address] Dr. Ellie Smith Bilirubin [Mass/Vol] 0.4 mg/dL Normal 0.2-1.0 [facility] Comment on above: Performed By: #### R EVRT3 #### [facility] [address] [place] [address] Dr. Ellie Smith Calcium [Mass/Vol] 9.2 mg/dL Normal 8.5-10.1 [facility] Comment on above: Performed By: #### R EVRT3 #### [facility] [address] [place] [address] Dr. Ellie Smith Chloride [Moles/Vol] 106 mmol/L Normal 98-107 [facility] Comment on above: Performed By: #### R EVRT3 #### [facility] [address] [place] [address] Dr. Ellie Smith CO2 [Moles/Vol] 26.1 mmol/L Normal 21.0-32.0 [facility] Comment on above: Performed By: #### R EVRT3 #### [facility] [address] [place] [address] Dr. Ellie Smith Creatinine [Mass/Vol] 0.68 mg/dL Normal 0.55-1.02 [facility] Comment on above: Performed By: #### R EVRT3 #### [facility] [address] [place] [address] Dr. Ellie Smith EGFR-AF GREEK >60 Normal >=60 [facility] Comment on above: Performed By: #### R EVRT3 #### [facility] [address] [place] [address] Dr. Ellie Smith EGFR-NON AF GREEK >60 Normal >=60 [facility] Comment on above: Performed By: #### R EVRT3 #### [facility] [address] [place] [address] Dr. Ellie Smith Globulin (S) [Mass/Vol] 3.2 g/dL Normal [facility] Comment on above: Performed By: #### R EVRT3 #### [facility] [address] [place] [address] Dr. Ellie Smith Glucose [Mass/Vol] 99 mg/dL Normal 74-106 [facility] Comment on above: Performed By: #### R EVRT3 #### [facility] [address] [place] [address] Dr. Ellie Smith Potassium [Moles/Vol] 4.2 mmol/L Normal 3.5-5.1 [facility] Comment on above: Performed By: #### R EVRT3 #### [facility] [address] [place] [address] Dr. Ellie Smith Protein [Mass/Vol] 7.1 g/dL Normal 6.4-8.2 [facility] Comment on above: Performed By: #### R EVRT3 #### [facility] [address] [place] [address] Dr. Ellie Smith Sodium [Moles/Vol] 142 mmol/L Normal 136-145 [facility] Comment on above: Performed By: #### R EVRT3 #### [facility] [address] [place] [address] Dr. Ellie Smith Urea nitrogen [Mass/Vol] 16.0 mg/dL Normal 7.0-18.0 [facility] Comment on above: Performed By: #### R EVRT3 #### [facility] [address] [place] [address] Dr. Ellie Smith Urea nitrogen/Creatinine [Mass ratio] 23.5 mg/mg Normal [facility] Comment on above: Performed By: #### R EVRT3 #### [facility] [address] [place] [address] Dr. Ellie Smith REVERSE T3on 04-15-2022 Reverse T3, Serum 15.4 ng/dL Normal 9.2-24.1 [facility] Comment on above: Result Comment: This test was developed and its performance characteristics determined by [employer]. It has not been cleared or approved by the Food and Drug Administration. Performed By: #### L ACT #### [facility] [address] [place] [address] Dr. Ellie Smith T3, TOTAL (TRIIODOTHYRONINE) on 04-13-2022 T3, TOTAL 144 ng/dL Normal 71-180 [facility] Comment on above: Performed By: #### A 1C #### [facility] [address] [place] [address] Dr. Ellie Smith FREE T3on 04-12-2022 FREE T3 2.93 pg/mlL Normal 2.18-3.98 [facility] Comment on above: Performed By: #### T SH, FT3 #### [facility] [address] [place] [address] Dr. Ellie Smith FREE T4on 04-12-2022 Free T4 [Mass/Vol] 0.89 ng/dL Normal 0.76-1.46 [facility] Comment on above: Performed By: #### R EVRT3 #### [facility] [address] [place] [address] Dr. Ellie Smith TSHon 04-12-2022 TSH 0.116 uIU/mL Critically low 0.358-3.74 0 [facility] Comment on above: Performed By: #### T SH, FT3 #### [facility] [address] [place] [address] Dr. Ellie Smith LIPID PROFILEon 03-29-2022 CHOL-HDL RATIO NORM SEE BELOW Normal [facility] Comment on above: Result Comment: 3.3 - 4.4 LOW RISK 4.4 - 7.1 AVERAGE RISK 7.1 - 11.0 MODERATE RISK >11.0 HIGH RISK Performed By: #### A 1C #### [facility] [address] [place] [address] Dr. Ellie Smith Cholesterol [Mass/Vol] 102 mg/dL Normal <=200 [facility] Comment on above: Performed By: #### A 1C #### [facility] [address] [place] [address] Dr. Ellie Smith Cholesterol in HDL [Mass/Vol] 56 mg/dL Normal 40-60 [facility] Comment on above: Performed By: #### A 1C #### [facility] [address] [place] [address] Dr. Ellie Smith Cholesterol in LDL [Mass/Vol] 36.8 mg/dL Normal [facility] Comment on above: Performed By: #### A 1C #### [facility] [address] [address] [address] Ellie Smith Cholesterol.total/Chol esterol in HDL [Mass ratio] 1.8 {ratio} Normal [facility] Comment on above: Performed By: #### A 1C #### [facility] [address] [address] [address] Ellie Smith HDL NORMAL > or = 60 mg/dl - LO W CARDIOVASCULAR RISK <40 mg/dl - HIGH CARDIOVASCULAR RISK Normal [facility] Comment on above: Performed By: #### A 1C #### [facility] [address] [address] [address] Ellie Smith LDL CALC NORMAL SEE BELOW Normal [facility] Comment on above: Result Comment: <100 mg/dl OPTIMAL 100 - 129 mg/dl NEAR OR ABOVE OPTIMAL 130 - 159 mg/dl BORDERLINE HIGH 160 - 189 mg/dl HIGH >190 mg/dl VERY HIGH Performed By: #### A 1C #### [facility] [address] [address] [address] Ellie Smith Triglyceride [Mass/Vol] 46 mg/dL Normal <=150 [facility] Comment on above: Performed By: #### A 1C #### [facility] [address] [address] [address] Ellie Smith VLDL CALC 9.2 mg/dL Normal [facility] Comment on above: Performed By: #### A 1C #### [facility] [address] [address] [address] Ellie Cardenas 03-29-2022 AST [Catalytic activity/Vol] 17 U/L Normal 15-37 [facility] Comment on above: Performed By: #### A 1C #### [facility] [address] [address] [address] Ellie Cotton 03-29-2022 ALT [Catalytic activity/Vol] 30 U/L Normal 14-59 [facility] Comment on above: Performed By: #### A 1C #### [facility] [address] [address] [address] Ellie Smith Office Visit (Cardiology)on 03-17-2022 Follow-up visit Diagnoses/Problems Assessed Dyspnea (786.09) (R06.00) Resolved off of [place] Coronary artery disease involving white [place] coronary artery of white earth heart without angina pectoris (414.01) (I25.10) Jan 2022 [facility] [place] [facility] [place] Dr. 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 Normal [employer] Tobacco Screening.on 022 Adult depression screening assessment No [facility] [employer]net[employer]riele andujar 600 DO Work Phone: Fall risk assessment a) No falls within the last year [facility] Juan andujar 600 DO Work Phone: Tobacco use status CPHS b) No [facility] Juan andujar 600 DO Work Phone: PHQ-2 VITALSon 02-15-2022 Adult depression screening assessment Yes [facility] [employer] jayne 250 DO Work Phone: Adult depression screening assessment No [facility] [employer]rendan godoy 250 DO Work Phone: Fall risk assessment a) No falls within the last year [facility] [employer] godoy 250 DO Work Phone: Tobacco use status CPHS b) No [facility] [employer] godoy 250 DO Work Phone: PHQ-2 VITALS 0-Not at all [facility] [employer] godoy 250 DO Work Phone: PHQ-2 VITALS 3-Nearly every day [facility] Bahouielham jayne 250 DO Work Phone: PHQ-2 VITALS 1-Several days [facility] [employer] jayne 250 DO Work Phone: PHQ-2 VITALS Very Difficult [facility] [employer] jayne 250 DO Work Phone: Activated partial thrombopla stin time (aPTT) in platelet poor plasma by coagulation aOrdered By: Diony Hooks on 02-03-2022 aPTT Coag (PPP) [Time] 31.4 s 25.1-36.5 [facility] Basophils Auto (Bld) [#/Vol] Ordered By: Diony Hooks on 02-03-2022 Basophils (Bld) [#/Vol] 0.1 10*3/uL 0.0-0.2 [facility] Basophils/100 WBC Auto (Bld) Ordered By: Diony Hooks on 02-03-2022 Basophils/100 WBC (Bld) 0.6 % . [facility] Blood hemoglobin measurement (mass/volume)Ordered By: Diony Hooks on 02-03-2022 Hemoglobin (Bld) [Mass/Vol] 14.3 g/dL 11.8-15.4 [facility] Blood leukocytes automated c ount (number/volume)Ordered By: Diony Hooks on 02-03-2022 WBC (Bld) [#/Vol] 12.0 10*3/uL 4.5-11.0 [facility] Eosinophils Auto (Bld) [#/Vo l]Ordered By: Diony Hooks on 02-03-2022 Eosinophils (Bld) [#/Vol] 0.4 10*3/uL 0.0-0.45 [facility] Eosinophils/100 WBC Auto (Bl d)Ordered By: Diony Hooks on 02-03-2022 Eosinophils/100 WBC (Bld) 3.4 % . [facility] Erythrocyte distribution wid th Auto (RBC) [Ratio]Ordered By: Diony Hooks on 02-03-2022 Erythrocyte distribution width (RBC) [Ratio] 14.4 % 11.9-15.3 [facility] Hematocrit Auto (Bld) [Volum e fraction]Ordered By: Diony Hooks on 02-03-2022 Hematocrit (Bld) [Volume fraction] 42.4 % 34.0-46.4 [facility] Laboratory - CoagulationOrde red By: Diony Hooks on 02-03-2022 PT Coag (PPP) [Time] 10.9 s 9.0-12.9 [facility] - Hematology and Cell countsOrdered By: Diony Hooks on 02-03-2022 Nucleated RBC/100 WBC (Bld) [Ratio] 0.0 % 0-0.5 [facility] Lymphocytes Auto (Bld) [#/Vo l]Ordered By: Diony Hooks on 02-03-2022 Lymphocytes (Bld) [#/Vol] 2.1 10*3/uL 1.00-4.8 [facility] Lymphocytes/100 WBC Auto (Bl d)Ordered By: Diony Hooks on 02-03-2022 Lymphocytes/100 WBC (Bld) 17.5 % . [facility] MCH Auto (RBC) [Entitic mass ]Ordered By: Diony Hooks on 02-03-2022 MCH (RBC) [Entitic mass] 31.5 pg 24.7-34.3 [facility] MCHC Auto (RBC) [Mass/Vol]Or dered By: Diony Hooks on 02-03-2022 MCHC (RBC) [Mass/Vol] 33.8 g/dL 32.0-35.0 [facility] MCV Auto (RBC) [Entitic vol] Ordered By: Diony Hooks on 02-03-2022 MCV (RBC) [Entitic vol] 93.2 fL 80-100 [facility] Monocytes Auto (Bld) [#/Vol] Ordered By: Diony Hooks on 02-03-2022 Monocytes (Bld) [#/Vol] 0.5 10*3/uL 0.0-0.8 [facility] Monocytes/100 WBC Auto (Bld) Ordered By: Diony Hooks on 02-03-2022 Monocytes/100 WBC (Bld) 4.4 % . [facility] Neutrophils Auto (Bld) [#/Vo l]Ordered By: Diony Hooks on 02-03-2022 Neutrophils (Bld) [#/Vol] 8.9 10*3/uL 1.8-7.7 [facility] Neutrophils/100 WBC Auto (Bl d)Ordered By: Diony Hooks on 02-03-2022 Neutrophils/100 WBC (Bld) 74.1 % . [facility] Platelet mean volume Auto (B ld) [Entitic vol]Ordered By: Diony Hooks on 02-03-2022 Platelet mean volume (Bld) [Entitic vol] 7.5 fL 6.3-10.7 [facility] Platelet poor plasma interna tional normalized ratio (INR) by coagulation assay (relatOrdered By: Diony Hooks on 02-03-2022 INR Coag (PPP) [Relative time] 1.0 {INR} [facility] Comment on above: INR Therapeutic Rang [...] 02-03-2022 Platelets (Bld) [#/Vol] 337 10*3/uL 150-450 [facility] RBC Auto (Bld) [#/Vol]Ordere d By: Diony Hooks on 02-03-2022 RBC (Bld) [#/Vol] 4.56 10*6/uL 3.60-5.00 [facility] COVID-19 SOFIAOrdered By: St anup Hooks on 02-01-2022 SARS-CoV+SARS-CoV-2 (COVID-19) Ag IA.rapid Ql (Resp) Negative Negative [facility] Comment on above: This is a duplicate [facility] SARS Antigen (JERRY) result to be used for statistical tracking purpose only. Creatinine and Glomerular fi ltration rate.predicted panel (S/P/Bld)Ordered By: Diony Hooks on 02-01-2022 Creatinine [Mass/Vol] 0.85 mg/dL 0.44-1.03 [facility] Estimated glomerular filtrat ion rate (GFR) non- AmericanOrdered By: Diony Hooks on 02-01-2022 GFR/1.73 sq M.predicted among non-blacks MDRD (S/P/Bld) [Vol rate/Area] > 60 mL/Min [facility] No Panel InformationOrdered By: Diony Hooks on 02-01-2022 Estimated GFR () > 60 mL/Min [facility] Comment on above: GFR estimated refere nce range: According to KDOQI guidelines, <60 ml/min/1.73m2 is sufficient to diagnose a patient with chronic kidney disease. Pharmacy Creatinine Clearance (Chem N/A [facility] SARS Antigen (LFIA) [facility] Serum or plasma calcium norma urement (mass/volume)Ordered By: Diony Hooks on 02-01-2022 Calcium [Mass/Vol] 9.7 mg/dL 8.2-10.2 [facility] Serum or plasma chloride tam surement (moles/volume)Ordered By: Diony Hooks on 02-01-2022 Chloride [Moles/Vol] 97 mmol/L 95-114 [facility] Serum or plasma glucose norma urement (mass/volume)Ordered By: Diony Hooks on 02-01-2022 Glucose [Mass/Vol] 86 mg/dL 70-100 [facility] Comment on above: ADA recommended refe rence range Random Glucose Reference Range is dependent on time and content of last meal. Glucose of more than 200 mg/dL in a nonstressed, ambulatory subject supports the diagnosis of Diabetes Mellitus. Serum or plasma potassium me asurement (moles/volume)Ordered By: Diony Hooks on 02-01-2022 Potassium [Moles/Vol] 4.7 mmol/L 3.5-5.1 [facility] Serum or plasma sodium measu rement (moles/volume)Ordered By: Diony Hooks on 02-01-2022 Sodium [Moles/Vol] 132 mmol/L 136-146 [facility] Serum or plasma total carbon dioxide measurement (moles/volume)Ordered By: Diony Hooks on 02-01-2022 CO2 [Moles/Vol] 26.0 mmol/L 22.0-30.0 [facility] Serum or plasma urea nitroge n measurement (mass/volume)Ordered By: Diony Hooks on 02-01-2022 Urea nitrogen [Mass/Vol] 10 mg/dL 03-04 [facility] BNPon 01-28-2022 Natriuretic peptide B (Bld) [Mass/Vol] 945.0 pg/mL Normal <=1,800.0 [facility] Comment on above: Performed By: #### R EVRT3 #### [facility] [address] [address] [address] Ellie Smith CARDIAC RAQUEL ADMITon 022 CK [Catalytic activity/Vol] 122 U/L Normal 26-192 [facility] Comment on above: Performed By: #### R EVRT3 #### [facility] [address] [place] [address] Dr. Ellie Smith CK.MB [Mass/Vol] 0.65 ng/mL Normal <=3.60 [facility] Comment on above: Performed By: #### R EVRT3 #### [facility] [address] [place] [address] Dr. Ellie Smith HSTROP 63.5 pg/mL Critically high 4.0-51.3 [facility] Comment on above: Result Comment: CUT- OFF POINTS HAVE BEEN ESTABLISHED BASED ON THE FOURTH UNIVERSAL DEFINITIONS OF MYOCARDIAL INFARCTION. THE UPPER REFERENCE LIMIT (URL) OF TROPONIN, DEFINED THE 99TH PERCENTILE OF cTnI DISTRIBUTION IN A REFERENCE POPULATION, HAS BEEN CONFIRMED THE DECISION THRESHOLD FOR MD DIAGNOSIS. Performed By: #### R EVRT3 #### [facility] [address] [place] [address] Dr. Ellie Smith MATEO 26 ng/mL Normal 9-82 [facility] Comment on above: Performed By: #### R EVRT3 #### [facility] [address] [place] [address] Dr. Ellie Smith CBC AUTO DIFFon 01-28-2022 BASO # 0.1 103/ul Normal 0.0-0.1 [facility] Comment on above: Performed By: #### L ACT #### [facility] [address] [place] [address] Dr. Ellie Smith Basophils/100 WBC (Bld) 0.6 % Normal 0.2-2.0 [facility] Comment on above: Performed By: #### L ACT #### [facility] [address] [place] [address] Dr. Ellie Smith EO # 0.4 103/ul Normal 0.0-0.7 [facility] Comment on above: Performed By: #### L ACT #### [facility] [address] [place] [address] Dr. lElie Smith Eosinophils/100 WBC (Bld) 4.4 % Normal 0.9-7.0 [facility] Comment on above: Performed By: #### L ACT #### [facility] [address] [place] [address] Dr. Ellie Smith Erythrocyte distribution width (RBC) [Ratio] 13.7 % Normal 11.0-15.0 [facility] Comment on above: Performed By: #### L ACT #### [facility] [address] [place] [address] Dr. Ellie Smith Hematocrit (Bld) [Volume fraction] 35.8 % Critically low 36.0-48.0 [facility] Comment on above: Performed By: #### L ACT #### [facility] [address] [place] [address] Dr. Ellie Smith Hemoglobin (Bld) [Mass/Vol] 11.9 g/dL Critically low 12.0-16.0 [facility] Comment on above: Performed By: #### L ACT #### [facility] [address] [place] [address] Dr. Ellie Smith IG # 0.03 10e3/ul Normal 0.00-0.03 [facility] Comment on above: Performed By: #### L ACT #### [facility] [address] [place] [address] Dr. Ellie Smith IG % 0.4 % Normal 0.0-0.5 [facility] Comment on above: Performed By: #### L ACT #### [facility] [address] [place] [address] Dr. Ellie Smith LYMPH # 1.7 103/ul Normal 1.2-3.8 [facility] Comment on above: Performed By: #### L ACT #### [facility] [address] [place] [address] Dr. Ellie Smith Lymphocytes/100 WBC (Bld) 19.6 % Critically low 20.5-60.0 [facility] Comment on above: Performed By: #### L ACT #### [facility] [address] [place] [address] Dr. Ellie Smith MANUAL DIFF REQ NO Normal [facility] Comment on above: Performed By: #### L ACT #### [facility] [address] [place] [address] Dr. Ellie Smith MCH (RBC) [Entitic mass] 31.4 pg Normal 26.7-34.0 [facility] Comment on above: Performed By: #### L ACT #### [facility] [address] [address] [address] Ellie Smith MCHC (RBC) [Mass/Vol] 33.2 g/dL Normal 29.9-35.2 [facility] Comment on above: Performed By: #### L ACT #### [facility] [address] [place] [address] Dr. Ellie Smith MCV (RBC) [Entitic vol] 94.5 fL Normal 81.0-99.0 [facility] Comment on above: Performed By: #### L ACT #### [facility] [address] [place] [address] Dr. Ellie Smith MONO # 0.5 103/ul Normal 0.3-0.8 [facility] Comment on above: Performed By: #### L ACT #### [facility] [address] [place] [address] Dr. Ellie Smith Monocytes/100 WBC (Bld) 5.4 % Normal 1.7-12.0 [facility] Comment on above: Performed By: #### L ACT #### [facility] [address] [place] [address] Dr. Ellie Smith NEUT # 6.0 103/ul Normal 1.4-6.5 [facility] Comment on above: Performed By: #### L ACT #### [facility] [address] [place] [address] Dr. Ellie Smith Neutrophils/100 WBC (Bld) 69.6 % Normal 43.0-75.0 [facility] Comment on above: Performed By: #### L ACT #### [facility] [address] [place] [address] Dr. Ellie Smith Platelet mean volume (Bld) [Entitic vol] 9.5 fL Normal 9.5-13.5 [facility] Comment on above: Performed By: #### L ACT #### [facility] [address] [place] [address] Dr. Ellie Smith PLT 252 103/ul Normal 150-450 [facility] Comment on above: Performed By: #### L ACT #### [facility] [address] [place] [address] Dr. Ellie Smith RBC 3.79 106/ul Critically low 4.20-5.40 [facility] Comment on above: Performed By: #### L ACT #### [facility] [address] [place] [address] Dr. Ellie Smith WBC 8.6 103/ul Normal 4.0-11.0 [facility] Comment on above: Performed By: #### L ACT #### [facility] [address] [place] [address] Dr. Ellie Smith POINT OF CARE GLUCOSEon 01-10 Glucose [Mass/Vol] 93 mg/dL Normal 74-106 [facility] Comment on above: Performed By: #### A 1C #### [facility] [address] [place] [address] Dr. Ellie Smith PROF 14(COMP METB)on 022 Albumin [Mass/Vol] 3.2 g/dL Critically low 3.4-5.0 [facility] Comment on above: Performed By: #### R EVRT3 #### [facility] [address] [place] [address] Dr. Ellie Smith Albumin/Globulin [Mass ratio] 1.1 {ratio} Normal [facility] Comment on above: Performed By: #### R EVRT3 #### [facility] [address] [place] [address] Dr. Ellie Smith ALP [Catalytic activity/Vol] 52 U/L Normal 46-116 [facility] Comment on above: Performed By: #### R EVRT3 #### [facility] [address] [place] [address] Dr. Ellie Smith ALT [Catalytic activity/Vol] 52 U/L Normal 14-59 [facility] Comment on above: Performed By: #### R EVRT3 #### [facility] [address] [place], [place] [id number] Dr. Ellie Smith Anion gap [Moles/Vol] 9.7 mmol/L Normal [facility] Comment on above: Performed By: #### R EVRT3 #### [facility] [address] [place] [address] Dr. Ellie Smith AST [Catalytic activity/Vol] 22 U/L Normal 15-37 [facility] Comment on above: Performed By: #### R EVRT3 #### [facility] [address] [place] [address] Dr. Ellie Smith Bilirubin [Mass/Vol] 0.3 mg/dL Normal 0.2-1.0 [facility] Comment on above: Performed By: #### R EVRT3 #### [facility] [address] [place] [address] Dr. Ellie Smith Calcium [Mass/Vol] 8.4 mg/dL Critically low 8.5-10.1 [facility] Comment on above: Performed By: #### R EVRT3 #### [facility] [address] [place] [address] Dr. Ellie Smtih Chloride [Moles/Vol] 104 mmol/L Normal 98-107 [facility] Comment on above: Performed By: #### R EVRT3 #### [facility] [address] [place] [address] Dr. Ellie Smith CO2 [Moles/Vol] 25.5 mmol/L Normal 21.0-32.0 [facility] Comment on above: Performed By: #### R EVRT3 #### [facility] [address] [place] [address] Dr. Ellie Smith Creatinine [Mass/Vol] 0.71 mg/dL Normal 0.55-1.02 [facility] Comment on above: Performed By: #### R EVRT3 #### [facility] [address] [place] [address] Dr. Ellie Smith EGFR-AF GREEK >60 Normal >=60 [facility] Comment on above: Performed By: #### R EVRT3 #### [facility] [address] [place] [address] Dr. Ellie Smith EGFR-NON AF GREEK >60 Normal >=60 [facility] Comment on above: Performed By: #### R EVRT3 #### [facility] [address] [place] [address] Dr. Ellie Smith Globulin (S) [Mass/Vol] 2.9 g/dL Normal [facility] Comment on above: Performed By: #### R EVRT3 #### [facility] [address] [place] [address] Dr. Ellie Smith Glucose [Mass/Vol] 102 mg/dL Normal 74-106 [facility] Comment on above: Performed By: #### R EVRT3 #### [facility] [address] [place] [address] Dr. Ellie Smith Potassium [Moles/Vol] 4.2 mmol/L Normal 3.5-5.1 [facility] Comment on above: Performed By: #### R EVRT3 #### [facility] [address] [place] [address] Dr. Ellie Smith Protein [Mass/Vol] 6.1 g/dL Critically low 6.4-8.2 [facility] Comment on above: Performed By: #### R EVRT3 #### [facility] [address] [place] [address] Dr. Ellie Smith Sodium [Moles/Vol] 135 mmol/L Critically low 136-145 [facility] Comment on above: Performed By: #### R EVRT3 #### [facility] [address] [place] [address] Dr. Ellie Smith Urea nitrogen [Mass/Vol] 11.0 mg/dL Normal 7.0-18.0 [facility] Comment on above: Performed By: #### R EVRT3 #### [facility] [address] [place] [address] Dr. Ellie Smith Urea nitrogen/Creatinine [Mass ratio] 15.5 mg/mg Normal [facility] Comment on above: Performed By: #### R EVRT3 #### [facility] [address] [place] [address] Dr. Ellie Smith CARDIAC RAQUEL 3-6on 2 CK [Catalytic activity/Vol] 192 U/L Normal 26-192 [facility] Comment on above: Performed By: #### L ACT #### [facility] [address] [place] [address] Dr. Ellie Smith CK.MB [Mass/Vol] 0.70 ng/mL Normal <=3.60 [facility] Comment on above: Performed By: #### L ACT #### [facility] [address] [place] [address] Dr. Ellie Smith HSTROP 88.8 pg/mL Critically high 4.0-51.3 [facility] Comment on above: Result Comment: CUT- OFF POINTS HAVE BEEN ESTABLISHED BASED ON THE FOURTH UNIVERSAL DEFINITIONS OF MYOCARDIAL INFARCTION. THE UPPER REFERENCE LIMIT (URL) OF TROPONIN, DEFINED THE 99TH PERCENTILE OF cTnI DISTRIBUTION IN A REFERENCE POPULATION, HAS BEEN CONFIRMED THE DECISION THRESHOLD FOR MD DIAGNOSIS. Performed By: #### L ACT #### [facility] [address] [place] [address] Dr. Ellie Smith CK [Catalytic activity/Vol] 213 U/L Critically high 26-192 [facility] Comment on above: Performed By: #### P OCGLUC #### [facility] [address] [place] [address] Dr. Ellie Smith CK.MB [Mass/Vol] 0.90 ng/mL Normal <=3.60 [facility] Comment on above: Performed By: #### P OCGLUC #### [facility] [address] [place] [address] Dr. Ellie Smith HSTROP 108.1 pg/mL Critically high 4.0-51.3 [facility] Comment on above: Result Comment: CUT- OFF POINTS HAVE BEEN ESTABLISHED BASED ON THE FOURTH UNIVERSAL DEFINITIONS OF MYOCARDIAL INFARCTION. THE UPPER REFERENCE LIMIT (URL) OF TROPONIN, DEFINED THE 99TH PERCENTILE OF cTnI DISTRIBUTION IN A REFERENCE POPULATION, HAS BEEN CONFIRMED THE DECISION THRESHOLD FOR MD DIAGNOSIS. repeated Performed By: #### P OCGLUC #### [facility] [address] [place] [address] Dr. Ellie Smith CBC AUTO DIFFon 01-27-2022 BASO # 0.1 103/ul Normal 0.0-0.1 [facility] Comment on above: Performed By: #### P OCGLUC #### [facility] [address] [address] [address] Ellie Smith Basophils/100 WBC (Bld) 0.5 % Normal 0.2-2.0 [facility] Comment on above: Performed By: #### P OCGLUC #### [facility] [address] [address] [address] Ellie Smith EO # 0.4 103/ul Normal 0.0-0.7 [facility] Comment on above: Performed By: #### P OCGLUC #### [facility] [address] [place] [address] Dr. Ellie Smith Eosinophils/100 WBC (Bld) 3.2 % Normal 0.9-7.0 [facility] Comment on above: Performed By: #### P OCGLUC #### [facility] [address] [place] [address] Dr. Ellie Smith Erythrocyte distribution width (RBC) [Ratio] 13.7 % Normal 11.0-15.0 [facility] Comment on above: Performed By: #### P OCGLUC #### [facility] [address] [place] [address] Dr. Ellie Smith Hematocrit (Bld) [Volume fraction] 40.5 % Normal 36.0-48.0 [facility] Comment on above: Performed By: #### P OCGLUC #### [facility] [address] [place] [address] Dr. Ellie Smith Hemoglobin (Bld) [Mass/Vol] 13.4 g/dL Normal 12.0-16.0 [facility] Comment on above: Performed By: #### P OCGLUC #### [facility] [address] [place] [address] Dr. Ellie Smith IG # 0.04 10e3/ul Critically high 0.00-0.03 [facility] Comment on above: Performed By: #### P OCGLUC #### [facility] [address] [address] [address] Ellie Smith IG % 0.3 % Normal 0.0-0.5 [facility] Comment on above: Performed By: #### P OCGLUC #### [facility] [address] [place] [address] Dr. Ellie Smith LYMPH # 2.4 103/ul Normal 1.2-3.8 [facility] Comment on above: Performed By: #### P OCGLUC #### [facility] [address] [place] [address] Dr. Ellie Smith Lymphocytes/100 WBC (Bld) 18.6 % Critically low 20.5-60.0 [facility] Comment on above: Performed By: #### P OCGLUC #### [facility] [address] [place] [address] Dr. Ellie Smith MANUAL DIFF REQ NO Normal [facility] Comment on above: Performed By: #### P OCGLUC #### [facility] [address] [place] [address] Dr. Ellie Smith MCH (RBC) [Entitic mass] 31.0 pg Normal 26.7-34.0 [facility] Comment on above: Performed By: #### P OCGLUC #### [facility] [address] [place] [address] Dr. Ellie Smith MCHC (RBC) [Mass/Vol] 33.1 g/dL Normal 29.9-35.2 [facility] Comment on above: Performed By: #### P OCGLUC #### [facility] [address] [place] [address] Dr. Ellie Smith MCV (RBC) [Entitic vol] 93.8 fL Normal 81.0-99.0 [facility] Comment on above: Performed By: #### P OCGLUC #### [facility] [address] [place] [address] Dr. Ellie Smith MONO # 0.7 103/ul Normal 0.3-0.8 [facility] Comment on above: Performed By: #### P OCGLUC #### [facility] [address] [place] [address] Dr. Ellie Smith Monocytes/100 WBC (Bld) 5.5 % Normal 1.7-12.0 [facility] Comment on above: Performed By: #### P OCGLUC #### [facility] [address] [address] [address] Ellie Smith NEUT # 9.1 103/ul Critically high 1.4-6.5 [facility] Comment on above: Performed By: #### P OCGLUC #### [facility] [address] [address] [address] Ellie Smith Neutrophils/100 WBC (Bld) 71.9 % Normal 43.0-75.0 [facility] Comment on above: Performed By: #### P OCGLUC #### [facility] [address] [place] [address] Dr. Ellie Smith Platelet mean volume (Bld) [Entitic vol] 9.6 fL Normal 9.5-13.5 [facility] Comment on above: Performed By: #### P OCGLUC #### [facility] [address] [place] [address] Dr. Ellie Smith PLT 307 103/ul Normal 150-450 [facility] Comment on above: Performed By: #### P OCGLUC #### [facility] [address] [place] [address] Dr. Ellie Smith RBC 4.32 106/ul Normal 4.20-5.40 [facility] Comment on above: Performed By: #### P OCGLUC #### [facility] [address] [place] [address] Dr. Ellie Smith WBC 12.6 103/ul Critically high 4.0-11.0 [facility] Comment on above: Performed By: #### P OCGLUC #### [facility] [address] [place] [address] ABD/PELVIS WO CONon [...] by: JONA ORLANDO Date: 2022-01-27 02:44 Normal [facility] CTA CHEST WO W CONon 022 CTA [...] JONA ORLANDO Date: 2022-01-27 03:46 Normal [facility] Covid-19 PCR (CVDTBH)on 01-10 SARS-CoV-2 (COVID-19) RNA MEI+probe Ql (Unsp spec) Not detected Normal NOT DETECTED [facility] Comment on above: Result Comment: When [...] for this test is supported by the [place] [employer] and Human Service's declaration that [...] used). Performed By: #### R EVRT3 #### [facility] [address] [place] [address] Dr. Ellie Smith D-DIMERon 01-27-2022 D-DIMER 0.71 mg/L FEU Critically high <=0.59 [facility] Comment on above: Performed By: #### L ACT #### [facility] [address] [address] [address] Elile Smith D-DIMER COMMENTS SEE BELOW Normal [facility] Comment on above: Result Comment: Incr [...] hospitalization. Performed By: #### L ACT #### [facility] [address] [place] [address] Dr. Ellie Smith ER URINE PROFILEon 2 Bilirubin Ql (U) Negative Normal NEGATIVE [facility] Comment on above: Performed By: #### P OCGLUC #### [facility] [address] [place] [address] Dr. Ellie Smith Clarity (U) CLEAR Normal CLEAR [facility] Comment on above: Performed By: #### P OCGLUC #### [facility] [address] [place] [address] Dr. Ellie Smith Color (U) LT. YELLOW Normal YELLOW [facility] Comment on above: Performed By: #### P OCGLUC #### [facility] [address] [place] [address] Dr. Ellie Smith ERUAHD A micrscopic examina tion will be performed if indicated. Normal [facility] Comment on above: Performed By: #### P OCGLUC #### [facility] [address] [place] [address] Dr. Ellie Smith Glucose Ql (U) Negative Normal NEGATIVE [facility] Comment on above: Performed By: #### P OCGLUC #### [facility] [address] [place] [address] Dr. Ellie Smith Hemoglobin Ql (U) Negative Normal NEGATIVE [facility] Comment on above: Performed By: #### P OCGLUC #### [facility] [address] [place] [address] Dr. Ellie Smith Ketones Ql (U) Negative Normal NEGATIVE [facility] Comment on above: Performed By: #### P OCGLUC #### [facility] [address] [place] [address] Dr. Ellie Smith LEUKOCYTES Negative Normal NEGATIVE [facility] Comment on above: Performed By: #### P OCGLUC #### [facility] [address] [place] [address] Dr. Ellie Smith Nitrite Ql (U) Negative Normal NEGATIVE [facility] Comment on above: Performed By: #### P OCGLUC #### [facility] [address] [place] [address] Dr. Ellie Smith pH (U) 6.0 [pH] Normal 5-9 [facility] Comment on above: Performed By: #### P OCGLUC #### [facility] [address] [place] [address] Dr. Ellie Smith SPEC GRAVITY 1.010 Normal 1.005-<=1. 025 [facility] Comment on above: Performed By: #### P OCGLUC #### [facility] [address] [place] [address] Dr. Ellie Smith UA PROTEIN Negative Normal NEGATIVE/ TRACE [facility] Comment on above: Performed By: #### P OCGLUC #### [facility] [address] [place] [address] Dr. Ellie Smith UR MICRO IND NOT INDICATED Normal [facility] Comment on above: Performed By: #### P OCGLUC #### [facility] [address] [place] [address] Dr. Ellie Smith Urobilinogen Qn (U) 0.2 {Tamia'U}/dL Normal 0.2 - 1. 0 [facility] Comment on above: Performed By: #### P OCGLUC #### [facility] [address] [place] [address] Dr. Ellie Smith LACTATE/LACTIC ACIDon 2021 Lactate [Moles/Vol] 1.8 mmol/L Normal 0.4-1.9 [facility] Comment on above: Performed By: #### L ACT #### [facility] [address] [place] [address] Dr. Ellie Smith POINT OF CARE GLUCOSEon 01-10 Glucose [Mass/Vol] 132 mg/dL Critically high 74-106 [facility] Comment on above: Performed By: #### L ACT #### [facility] [address] [place] [address] Dr. Ellie Smith Glucose [Mass/Vol] 99 mg/dL Normal 74-106 [facility] Comment on above: Performed By: #### L ACT #### [facility] [address] [address] [address] Ellie Smith Glucose [Mass/Vol] 117 mg/dL Critically high 74-106 [facility] Comment on above: Performed By: #### P OCGLUC #### [facility] [address] [place] [address] Dr. Ellie Smith Glucose [Mass/Vol] 105 mg/dL Normal 74-106 [facility] Comment on above: Performed By: #### L ACT #### [facility] [address] [place] [address] Dr. Ellie Smith PROF 14(COMP METB)on 022 Albumin [Mass/Vol] 3.6 g/dL Normal 3.4-5.0 [facility] Comment on above: Performed By: #### C MP #### [facility] [address] [place] [address] Dr. Ellie Smith Albumin/Globulin [Mass ratio] 1.1 {ratio} Normal [facility] Comment on above: Performed By: #### C MP #### [facility] [address] [place] [address] Dr. Ellie Smith ALP [Catalytic activity/Vol] 61 U/L Normal 46-116 [facility] Comment on above: Performed By: #### C MP #### [facility] [address] [place] [address] Dr. Ellie Smith ALT [Catalytic activity/Vol] 53 U/L Normal 14-59 [facility] Comment on above: Performed By: #### C MP #### [facility] [address] [place] [address] Dr. Ellie Smith Anion gap [Moles/Vol] 14.7 mmol/L Normal [facility] Comment on above: Performed By: #### C MP #### [facility] [address] [place] [address] Dr. Ellie Smith AST [Catalytic activity/Vol] 43 U/L Critically high 15-37 [facility] Comment on above: Performed By: #### C MP #### [facility] [address] [address] [address] Ellie Smith Bilirubin [Mass/Vol] 0.4 mg/dL Normal 0.2-1.0 [facility] Comment on above: Performed By: #### C MP #### [facility] [address] [place] [address] Dr. Ellie Smith Calcium [Mass/Vol] 8.6 mg/dL Normal 8.5-10.1 [facility] Comment on above: Performed By: #### C MP #### [facility] [address] [place] [address] Dr. Ellie Smith Chloride [Moles/Vol] 99 mmol/L Normal 98-107 [facility] Comment on above: Performed By: #### C MP #### [facility] [address] [place] [address] Dr. Ellie Smith CO2 [Moles/Vol] 22.4 mmol/L Normal 21.0-32.0 [facility] Comment on above: Performed By: #### C MP #### [facility] [address] [place] [address] Dr. Ellie Smith Creatinine [Mass/Vol] 0.90 mg/dL Normal 0.55-1.02 [facility] Comment on above: Performed By: #### C MP #### [facility] [address] [place] [address] Dr. Ellie Smith EGFR-AF GREEK >60 Normal >=60 [facility] Comment on above: Performed By: #### C MP #### [facility] [address] [place] [address] Dr. Ellie Smith EGFR-NON AF GREEK 60 mL/min/1.73m2 Normal >=60 [facility] Comment on above: Performed By: #### C MP #### [facility] [address] [address] [address] Ellie Smith Globulin (S) [Mass/Vol] 3.3 g/dL Normal [facility] Comment on above: Performed By: #### C MP #### [facility] [address] [address] [address] Ellie Smith Glucose [Mass/Vol] 108 mg/dL Critically high 74-106 [facility] Comment on above: Performed By: #### C MP #### [facility] [address] [address] [address] Ellie Smith Potassium [Moles/Vol] 4.1 mmol/L Normal 3.5-5.1 [facility] Comment on above: Performed By: #### C MP #### [facility] [address] [address] [address] Ellie Smith Protein [Mass/Vol] 6.9 g/dL Normal 6.4-8.2 [facility] Comment on above: Performed By: #### C MP #### [facility] [address] [address] [address] Ellie Smith Sodium [Moles/Vol] 132 mmol/L Critically low 136-145 [facility] Comment on above: Performed By: #### C MP #### [facility] [address] [address] [address] Ellie Smith Urea nitrogen [Mass/Vol] 15.0 mg/dL Normal 7.0-18.0 [facility] Comment on above: Performed By: #### C MP #### [facility] [address] [address] [address] Ellie Smith Urea nitrogen/Creatinine [Mass ratio] 16.7 mg/mg Normal [facility] Comment on above: Performed By: #### C MP #### [facility] [address] [address] [address] Ellie Smith PROTIMEon 01-27-2022 INR Coag (PPP) [Relative time] 1.00 {INR} Normal [facility] Comment on above: Performed By: #### P OCGLUC #### [facility] [address] [place] [address] Dr. Ellie Smith INR GUIDELINES SEE BELOW Normal [facility] Comment on above: Result Comment: HIMANSHU RED INR: 2.0 - 3.0 CONDITIONS NOT LISTED BELOW 2.5 - 3.5 FOR PROSTHETIC HEART VALVE REPLACEMENT 2.5 - 3.5 RECURRENT THROMBOSIS Performed By: #### P OCGLUC #### [facility] [address] [address] [address] Ellie Smith PT Coag (PPP) [Time] 10.8 s Normal 9.0-11.6 [facility] Comment on above: Performed By: #### P OCGLUC #### [facility] [address] [place] [address] Dr. Ellie Smith PTTon 01-27-2022 aPTT Coag (Bld) [Time] 28.6 s Normal 22.3-36.2 [facility] Comment on above: Performed By: #### L ACT #### [facility] [address] [place] [address] Dr. Ellie Smith TROPONIN, HIGH SENSITIVITYon 01-27-2022 HSTROP 116.4 pg/mL Critically high 4.0-51.3 [facility] Comment on above: Result Comment: CUT- OFF POINTS HAVE BEEN ESTABLISHED BASED ON THE FOURTH UNIVERSAL DEFINITIONS OF MYOCARDIAL INFARCTION. THE UPPER REFERENCE LIMIT (URL) OF TROPONIN, DEFINED THE 99TH PERCENTILE OF cTnI DISTRIBUTION IN A REFERENCE POPULATION, HAS BEEN CONFIRMED THE DECISION THRESHOLD FOR MD DIAGNOSIS. Performed By: #### A 1C #### [facility] [address] [place] [address] Dr. Ellie Smith HSTROP 151.5 pg/mL Critically high 4.0-51.3 [facility] Comment on above: Result Comment: CUT- OFF POINTS HAVE BEEN ESTABLISHED BASED ON THE FOURTH UNIVERSAL DEFINITIONS OF MYOCARDIAL INFARCTION. THE UPPER REFERENCE LIMIT (URL) OF TROPONIN, DEFINED THE 99TH PERCENTILE OF cTnI DISTRIBUTION IN A REFERENCE POPULATION, HAS BEEN CONFIRMED THE DECISION THRESHOLD FOR MD DIAGNOSIS. Performed By: #### P OCGLUC #### [facility] [address] [place] [id number] [address] Ellie Smith XR CHEST 1 Von [...] JONA ORLANDO Date: 2022-01-27 01:08 Normal [facility] Albumin [Mass/volume] in Ser um or PlasmaOrdered By: Diony Hooks on 01-21-2022 Albumin [Mass/Vol] 3.4 g/dL 3.2-5.5 [facility] Basophils Auto (Bld) [#/Vol] Ordered By: Diony Hooks on 01-21-2022 Basophils (Bld) [#/Vol] 0.0 10*3/uL 0.0-0.2 [facility] Basophils/100 WBC Auto (Bld) Ordered By: Diony Hooks on 01-21-2022 Basophils/100 WBC (Bld) 0.4 % . [facility] Blood hemoglobin measurement (mass/volume)Ordered By: Diony Hooks on 01-21-2022 Hemoglobin (Bld) [Mass/Vol] 13.3 g/dL 11.8-15.4 [facility] Blood leukocytes automated c ount (number/volume)Ordered By: Diony Hooks on 01-21-2022 WBC (Bld) [#/Vol] 8.5 10*3/uL 4.5-11.0 [facility] Creatinine and Glomerular fi ltration rate.predicted panel (S/P/Bld)Ordered By: Diony Hooks on 01-21-2022 Creatinine [Mass/Vol] 0.72 mg/dL 0.44-1.03 [facility] Eosinophils Auto (Bld) [#/Vo l]Ordered By: Diony Hooks on 01-21-2022 Eosinophils (Bld) [#/Vol] 0.4 10*3/uL 0.0-0.45 [facility] Eosinophils/100 WBC Auto (Bl d)Ordered By: Diony Hooks on 01-21-2022 Eosinophils/100 WBC (Bld) 4.2 % . [facility] Erythrocyte distribution wid th Auto (RBC) [Ratio]Ordered By: Diony Hooks on 01-21-2022 Erythrocyte distribution width (RBC) [Ratio] 14.4 % 11.9-15.3 [facility] Estimated glomerular filtrat ion rate (GFR) non- AmericanOrdered By: Diony Hooks on 01-21-2022 GFR/1.73 sq M.predicted among non-blacks MDRD (S/P/Bld) [Vol rate/Area] > 60 mL/Min [facility] Globulin Calc (S) [Mass/Vol] Ordered By: Diony Hooks on 01-21-2022 Globulin (S) [Mass/Vol] 2.4 g/dL [facility] Glucose Glucometer (BldC) [M ass/Vol]Ordered By: Wiley Beal on 01-21-2022 Glucose [Mass/Vol] 93 mg/dL [facility] Comment on above: Random Glucose Refer ence Range is dependent on time and content of last meal. Glucose of more than 200 mg/dL in a nonstressed, ambulatory subject supports the diagnosis of Diabetes Mellitus. Hematocrit Auto (Bld) [Volum e fraction]Ordered By: Diony Hooks on 01-21-2022 Hematocrit (Bld) [Volume fraction] 40.5 % 34.0-46.4 [facility] Laboratory - Hematology and Cell countsOrdered By: Diony Hooks on 01-21-2022 Nucleated RBC/100 WBC (Bld) [Ratio] 0.0 % 0-0.5 [facility] Lymphocytes Auto (Bld) [#/Vo l]Ordered By: Diony Hooks on 01-21-2022 Lymphocytes (Bld) [#/Vol] 1.2 10*3/uL 1.00-4.8 [facility] Lymphocytes/100 WBC Auto (Bl d)Ordered By: Diony Hooks on 01-21-2022 Lymphocytes/100 WBC (Bld) 14.2 % . [facility] MCH Auto (RBC) [Entitic mass ]Ordered By: Diony Hooks on 01-21-2022 MCH (RBC) [Entitic mass] 30.7 pg 24.7-34.3 [facility] MCHC Auto (RBC) [Mass/Vol]Or dered By: Diony Hooks on 01-21-2022 MCHC (RBC) [Mass/Vol] 32.9 g/dL 32.0-35.0 [facility] MCV Auto (RBC) [Entitic vol] Ordered By: Diony Hooks on 01-21-2022 MCV (RBC) [Entitic vol] 93.1 fL 80-100 [facility] Monocytes Auto (Bld) [#/Vol] Ordered By: Diony Hooks on 01-21-2022 Monocytes (Bld) [#/Vol] 0.6 10*3/uL 0.0-0.8 [facility] Monocytes/100 WBC Auto (Bld) Ordered By: Diony Hooks on 01-21-2022 Monocytes/100 WBC (Bld) 6.7 % . [facility] Neutrophils Auto (Bld) [#/Vo l]Ordered By: Diony Hooks on 01-21-2022 Neutrophils (Bld) [#/Vol] 6.3 10*3/uL 1.8-7.7 [facility] Neutrophils/100 WBC Auto (Bl d)Ordered By: Diony Hooks on 01-21-2022 Neutrophils/100 WBC (Bld) 74.5 % . [facility] No Panel InformationOrdered By: Wiley Beal on 01-21-2022 Bedside Glucose Comment Glu2: cleaned meter [facility] No Panel InformationOrdered By: Diony Hooks on 01-21-2022 Estimated GFR () > 60 mL/Min [facility] Comment on above: GFR estimated refere nce range: According to KDOQI guidelines, <60 ml/min/1.73m2 is sufficient to diagnose a patient with chronic kidney disease. Pharmacy Creatinine Clearance (Chem 55.72 [facility] Platelet mean volume Auto (B ld) [Entitic vol]Ordered By: Diony Hooks on 01-21-2022 Platelet mean volume (Bld) [Entitic vol] 7.8 fL 6.3-10.7 [facility] Platelets Auto (Bld) [#/Vol] Ordered By: Diony Hooks on 01-21-2022 Platelets (Bld) [#/Vol] 235 10*3/uL 150-450 [facility] Protein [Mass/volume] in Ser um or PlasmaOrdered By: Diony Hooks on 01-21-2022 Protein [Mass/Vol] 5.8 g/dL 6.1-7.9 [facility] RBC Auto (Bld) [#/Vol]Ordere d By: Diony Hooks on 01-21-2022 RBC (Bld) [#/Vol] 4.35 10*6/uL 3.60-5.00 [facility] Serum or plasma alanine potter otransferase measurement without P-5'-P (enzymatic activiOrdered By: Diony Hooks on 01-21-2022 ALT No additional P-5'-P [Catalytic activity/Vol] 16 U/L 10-60 [facility] Serum or plasma albumin/glob ulin mass ratioOrdered By: Diony Hooks on 01-21-2022 Albumin/Globulin [Mass ratio] 1.4 {ratio} [facility] Serum or plasma alkaline inge sphatase measurement (enzymatic activity/volume)Ordered By: Diony Hooks on 01-21-2022 ALP [Catalytic activity/Vol] 43 U/L 32-92 [facility] Serum or plasma aspartate am inotransferase measurement (enzymatic activity/volume)Ordered By: Diony Hooks on 01-21-2022 AST [Catalytic activity/Vol] 25 U/L 10-42 [facility] Serum or plasma calcium norma urement (mass/volume)Ordered By: Diony Hooks on 01-21-2022 Calcium [Mass/Vol] 9.1 mg/dL 8.2-10.2 [facility] Serum or plasma chloride tam surement (moles/volume)Ordered By: Diony Hooks on 01-21-2022 Chloride [Moles/Vol] 104 mmol/L 95-114 [facility] Serum or plasma glucose norma urement (mass/volume)Ordered By: Diony Hooks on 01-21-2022 Glucose [Mass/Vol] 98 mg/dL 70-100 [facility] Comment on above: ADA recommended refe rence range Random Glucose Reference Range is dependent on time and content of last meal. Glucose of more than 200 mg/dL in a nonstressed, ambulatory subject supports the diagnosis of Diabetes Mellitus. Serum or plasma potassium me asurement (moles/volume)Ordered By: Diony Hooks on 01-21-2022 Potassium [Moles/Vol] 3.8 mmol/L 3.5-5.1 [facility] Serum or plasma sodium measu rement (moles/volume)Ordered By: Diony Hooks on 01-21-2022 Sodium [Moles/Vol] 135 mmol/L 136-146 [facility] Serum or plasma total biliru bin measurement (mass/volume)Ordered By: Diony Hooks on 01-21-2022 Bilirubin [Mass/Vol] 0.9 mg/dL 0.3-1.2 [facility] Serum or plasma total carbon dioxide measurement (moles/volume)Ordered By: Diony Hooks on 01-21-2022 CO2 [Moles/Vol] 23.4 mmol/L 22.0-30.0 [facility] Serum or plasma urea nitroge n measurement (mass/volume)Ordered By: Diony Hooks on 01-21-2022 Urea nitrogen [Mass/Vol] 9 mg/dL 9- [facility] Activated partial thrombopla stin time (aPTT) in platelet poor plasma by coagulation aOrdered By: Wiley Beal on 01-20-2022 aPTT Coag (PPP) [Time] 70.5 s 25.1-36.5 [facility] Cholesterol [Mass/volume] in Serum or PlasmaOrdered By: Justa Westfall on 01-19-2022 Cholesterol [Mass/Vol] 181 mg/dL 140-200 [facility] Comment on above: Chol less than 200 m g/dl low risk Chol 201-239 mg/dl borderline risk Chol 240 mg/dl and greater high risk Cholesterol in LDL Calc [Mas s/Vol]Ordered By: Justa Westfall on 01-19-2022 Cholesterol in LDL [Mass/Vol] 112 mg/dL 0-100 [facility] Comment on above: LDL ATP III CLASSIFI CATION LDL less than 100 mg/dL Optimal LDL 100-129 mg/dL Near or above optimal LDL 130-159 mg/dL Borderline high LDL 160-189 mg/dL High LDL greater than 189 mg/dL Very high Cholesterol in VLDL Calc [Ma ss/Vol]Ordered By: Justa Westfall on 01-19-2022 Cholesterol in VLDL [Mass/Vol] 22 mg/dL [facility] Laboratory - Chemistry and C hemistry - challengeOrdered By: Justa Westfall on 01-19-2022 Magnesium [Mass/Vol] 1.4 mg/dL 1.6-2.6 [facility] Laboratory - CoagulationOrde red By: Justa Westfall on 01-19-2022 PT Coag (PPP) [Time] 11.7 s 9.0-12.9 [facility] Platelet poor plasma interna tional normalized ratio (INR) by coagulation assay (relatOrdered By: Justa Westfall on 01-19-2022 INR Coag (PPP) [Relative time] 1.0 {INR} [facility] Comment on above: INR Therapeutic Rang [...] Cholesterol in HDL [Mass/Vol] 46 mg/dL 35-85 [facility] Comment on above: HDL CHOL ATP-III CLA SSIFICATION Cardiovascular Risk HDL > or equal to 60 mg/dL LOW HDL < 40 mg/dL HIGH Serum or plasma total choles terol/high density lipoprotein (HDL) cholesterol mass ratOrdered By: Justa Westfall on 01-19-2022 Cholesterol.total/Chol esterol in HDL [Mass ratio] 3.9 {ratio} <5.0 [facility] Triglyceride [Mass/volume] i n Serum or PlasmaOrdered By: Justa Westfall on 01-19-2022 Triglyceride [Mass/Vol] 113 mg/dL 35-149 [facility] Comment on above: TRIG ATP III [...] High sensitivity method [Mass/Vol] 3577 pg/mL 0-15 [facility] Comment on above: Results called at 0943 on 01/19/22 BNPon 01-18-2022 Natriuretic peptide B (Bld) [Mass/Vol] 1222.0 pg/mL Normal <=1,800.0 [facility] Comment on above: Performed By: #### A 1C #### [facility] [address] [place] [address] Dr. Ellie Smith CBC AUTO DIFFon 01-18-2022 BASO # 0.1 103/ul Normal 0.0-0.1 [facility] Comment on above: Performed By: #### R EVRT3 #### [facility] [address] [address] [address] Ellie Smith Basophils/100 WBC (Bld) 0.5 % Normal 0.2-2.0 [facility] Comment on above: Performed By: #### R EVRT3 #### [facility] [address] [address] [address] Ellie Smith EO # 0.2 103/ul Normal 0.0-0.7 [facility] Comment on above: Performed By: #### R EVRT3 #### [facility] [address] [place] [address] Dr. Ellie Smith Eosinophils/100 WBC (Bld) 2.4 % Normal 0.9-7.0 [facility] Comment on above: Performed By: #### R EVRT3 #### [facility] [address] [place] [address] Dr. Ellie Smith Erythrocyte distribution width (RBC) [Ratio] 14.1 % Normal 11.0-15.0 [facility] Comment on above: Performed By: #### R EVRT3 #### [facility] [address] [place] [address] Dr. Ellie Smith Hematocrit (Bld) [Volume fraction] 42.2 % Normal 36.0-48.0 [facility] Comment on above: Performed By: #### R EVRT3 #### [facility] [address] [place] [address] Dr. Ellie Smith Hemoglobin (Bld) [Mass/Vol] 13.9 g/dL Normal 12.0-16.0 [facility] Comment on above: Performed By: #### R EVRT3 #### [facility] [address] [place] [address] Dr. Ellie Smith IG # 0.02 10e3/ul Normal 0.00-0.03 [facility] Comment on above: Performed By: #### R EVRT3 #### [facility] [address] [place] [address] Dr. Ellie Smith IG % 0.2 % Normal 0.0-0.5 [facility] Comment on above: Performed By: #### R EVRT3 #### [facility] [address] [place] [address] Dr. Ellie Smith LYMPH # 2.1 103/ul Normal 1.2-3.8 [facility] Comment on above: Performed By: #### R EVRT3 #### [facility] [address] [place] [address] Dr. Ellie Smith Lymphocytes/100 WBC (Bld) 21.2 % Normal 20.5-60.0 [facility] Comment on above: Performed By: #### R EVRT3 #### [facility] [address] [place] [address] Dr. Ellie Smith MANUAL DIFF REQ NO Normal [facility] Comment on above: Performed By: #### R EVRT3 #### [facility] [address] [place] [address] Dr. Ellie Smith MCH (RBC) [Entitic mass] 31.2 pg Normal 26.7-34.0 [facility] Comment on above: Performed By: #### R EVRT3 #### [facility] [address] [place] [address] Dr. Ellie Smith MCHC (RBC) [Mass/Vol] 32.9 g/dL Normal 29.9-35.2 [facility] Comment on above: Performed By: #### R EVRT3 #### [facility] [address] [place] [address] Dr. Ellie Smith MCV (RBC) [Entitic vol] 94.6 fL Normal 81.0-99.0 [facility] Comment on above: Performed By: #### R EVRT3 #### [facility] [address] [place] [address] Dr. Ellie Smith MONO # 0.5 103/ul Normal 0.3-0.8 [facility] Comment on above: Performed By: #### R EVRT3 #### [facility] [address] [place] [address] Dr. Ellie Smith Monocytes/100 WBC (Bld) 4.7 % Normal 1.7-12.0 [facility] Comment on above: Performed By: #### R EVRT3 #### [facility] [address] [place] [address] Dr. Ellie Smith NEUT # 7.1 103/ul Critically high 1.4-6.5 [facility] Comment on above: Performed By: #### R EVRT3 #### [facility] [address] [place] [address] Dr. Ellie Smith Neutrophils/100 WBC (Bld) 71.0 % Normal 43.0-75.0 [facility] Comment on above: Performed By: #### R EVRT3 #### [facility] [address] [place] [address] Dr. Ellie Smith Platelet mean volume (Bld) [Entitic vol] 9.2 fL Critically low 9.5-13.5 [facility] Comment on above: Performed By: #### R EVRT3 #### [facility] [address] [place] [address] Dr. Ellie Smith PLT 257 103/ul Normal 150-450 [facility] Comment on above: Performed By: #### R EVRT3 #### [facility] [address] [place] [address] Dr. Ellie Smith RBC 4.46 106/ul Normal 4.20-5.40 [facility] Comment on above: Performed By: #### R EVRT3 #### [facility] [address] [place] [address] Dr. Ellie Smith WBC 10.0 103/ul Normal 4.0-11.0 [facility] Comment on above: Performed By: #### R EVRT3 #### [facility] [address] [place] [address] Dr. Ellie Smith Covid-19 PCR ([facility])on SARS-CoV-2 (COVID-19) RNA MEI+probe Ql (Unsp spec) Not detected Normal NOT DETECTED [facility] Comment on above: Result Comment: When [...] for this test is supported by the Junior Designer of Health and Human Service's declaration that [...] used). Performed By: #### C VDTBH #### [facility] [address] [place] [address] Dr. Ellie Smith LIPASEon 01-18-2022 Lipase [Catalytic activity/Vol] 62.0 U/L Critically low 73.0-393.0 [facility] Comment on above: Performed By: #### A 1C #### [facility] [address] [place] [address] Dr. Ellie Smith MAGNESIUMon 01-18-2022 Magnesium [Mass/Vol] 1.4 mg/dL Critically low 1.8-2.4 [facility] Comment on above: Performed By: #### M G #### [facility] [address] [place] [address] Dr. Ellie Smith PROF 14(COMP METB)on 022 Albumin [Mass/Vol] 3.8 g/dL Normal 3.4-5.0 [facility] Comment on above: Performed By: #### A 1C #### [facility] [address] [place] [address] Dr. Ellie Smith Albumin/Globulin [Mass ratio] 1.2 {ratio} Normal [facility] Comment on above: Performed By: #### A 1C #### [facility] [address] [place] [address] Dr. Ellie Smith ALP [Catalytic activity/Vol] 59 U/L Normal 46-116 [facility] Comment on above: Performed By: #### A 1C #### [facility] [address] [place] [address] Dr. Ellie Smith ALT [Catalytic activity/Vol] 18 U/L Normal 14-59 [facility] Comment on above: Performed By: #### A 1C #### [facility] [address] [place] [address] Dr. Ellie Smith Anion gap [Moles/Vol] 11.1 mmol/L Normal [facility] Comment on above: Performed By: #### A 1C #### [facility] [address] [place] [address] Dr. Ellie Smith AST [Catalytic activity/Vol] 14 U/L Critically low 15-37 [facility] Comment on above: Performed By: #### A 1C #### [facility] [address] [place] [address] Dr. Ellie Smith Bilirubin [Mass/Vol] 0.3 mg/dL Normal 0.2-1.0 [facility] Comment on above: Performed By: #### A 1C #### [facility] [address] [address] [address] Ellie Smith Calcium [Mass/Vol] 9.1 mg/dL Normal 8.5-10.1 [facility] Comment on above: Performed By: #### A 1C #### [facility] [address] [address] [address] Ellie Smith Chloride [Moles/Vol] 104 mmol/L Normal 98-107 [facility] Comment on above: Performed By: #### A 1C #### [facility] [address] [place] [address] Dr. Ellie Smith CO2 [Moles/Vol] 26.9 mmol/L Normal 21.0-32.0 [facility] Comment on above: Performed By: #### A 1C #### [facility] [address] [place] [address] Dr. Ellie Smith Creatinine [Mass/Vol] 0.84 mg/dL Normal 0.55-1.02 [facility] Comment on above: Performed By: #### A 1C #### [facility] [address] [address] [address] Ellie Smith EGFR-AF GREEK >60 Normal >=60 [facility] Comment on above: Performed By: #### A 1C #### [facility] [address] [place] [address] Dr. Ellie Smith EGFR-NON AF GREEK >60 Normal >=60 [facility] Comment on above: Performed By: #### A 1C #### [facility] [address] [place] [address] Dr. Ellie Smith Globulin (S) [Mass/Vol] 3.1 g/dL Normal [facility] Comment on above: Performed By: #### A 1C #### [facility] [address] [place] [address] Dr. Ellie Smith Glucose [Mass/Vol] 100 mg/dL Normal 74-106 [facility] Comment on above: Performed By: #### A 1C #### [facility] [address] [place], [place] [id number] Dr. Ellie Smith Potassium [Moles/Vol] 4.0 mmol/L Normal 3.5-5.1 [facility] Comment on above: Performed By: #### A 1C #### [facility] [address] [place] [address] Dr. Ellie Smith Protein [Mass/Vol] 6.9 g/dL Normal 6.4-8.2 [facility] Comment on above: Performed By: #### A 1C #### [facility] [address] [place] [address] Dr. Ellie Smith Sodium [Moles/Vol] 138 mmol/L Normal 136-145 [facility] Comment on above: Performed By: #### A 1C #### [facility] [address] [place] [address] Dr. Ellie Smith Urea nitrogen [Mass/Vol] 14.0 mg/dL Normal 7.0-18.0 [facility] Comment on above: Performed By: #### A 1C #### [facility] [address] [place] [address] Dr. Ellie Smith Urea nitrogen/Creatinine [Mass ratio] 16.7 mg/mg Normal [facility] Comment on above: Performed By: #### A 1C #### [facility] [address] [place] [address] Dr. Ellie Smith PROTIMEon 01-18-2022 INR Coag (PPP) [Relative time] 0.95 {INR} Normal [facility] Comment on above: Performed By: #### R EVRT3 #### [facility] [address] [place] [address] Dr. Ellie Smith INR GUIDELINES SEE BELOW Normal [facility] Comment on above: Result Comment: HIMANSHU RED INR: 2.0 - 3.0 CONDITIONS NOT LISTED BELOW 2.5 - 3.5 FOR PROSTHETIC HEART VALVE REPLACEMENT 2.5 - 3.5 RECURRENT THROMBOSIS Performed By: #### R EVRT3 #### [facility] [address] [place] [address] Dr. Ellie Smith PT Coag (PPP) [Time] 10.3 s Normal 9.0-11.6 [facility] Comment on above: Performed By: #### R EVRT3 #### [facility] [address] [address] [address] Ellie Smith PTTon 01-18-2022 aPTT Coag (Bld) [Time] 27.1 s Normal 22.3-36.2 [facility] Comment on above: Performed By: #### R EVRT3 #### [facility] [address] [address] [address] Ellie Smith TROPONIN, HIGH SENSITIVITYon 01-18-2022 HSTROP 512.5 pg/mL Critically high 4.0-51.3 [facility] Comment on above: Result Comment: CUT- OFF POINTS HAVE BEEN ESTABLISHED BASED ON THE FOURTH UNIVERSAL DEFINITIONS OF MYOCARDIAL INFARCTION. THE UPPER REFERENCE LIMIT (URL) OF TROPONIN, DEFINED THE 99TH PERCENTILE OF cTnI DISTRIBUTION IN A REFERENCE POPULATION, HAS BEEN CONFIRMED THE DECISION THRESHOLD FOR MD DIAGNOSIS. repeated Performed By: #### A 1C #### [facility] [address] [place] [address] Dr. Ellie Smith XR CHEST 1 Von [...] by: NICOLE SANDERS Date: 2022-01-18 17:38 Normal [facility] Vital Signs Date Time Vital Sign Value Performing Clinician Facility 05-14-2024 13:40-0500 Body height 157.5 cm Priyanka Puentes MD Work Phone: [facility] 05-14-2024 13:40-050 Body mass index (BMI) [Ratio] 27.07 kg/m2 Priyanka Puentes MD Work Phone: [facility] 05-14-2024 13:40-050 Body weight 67.13 kg Priyanka Puentes MD Work Phone: [facility] 05-08-2024 13:40-0500 Body height 153.7 cm Karli Dougherty MD Work Phone: [facility] 05-08-2024 13:40-0500 Body mass index (BMI) [Ratio] 29.77 kg/m2 Karli Dougherty MD Work Phone: [facility] 05-08-2024 13:40-0500 Body weight 70.31 kg Karli Dougherty MD Work Phone: [facility] 05-08-2024 13:40-0500 Diastolic blood pressure 64 mm[Hg] Karli Dougherty MD Work Phone: [facility] 05-08-2024 13:40-0500 Heart rate 64 /min Karli Dougherty MD Work Phone: [facility] 05-08-2024 13:40-0500 Systolic blood pressure 132 mm[Hg] Karli Dougherty MD Work Phone: [facility] 08-31-2023 13:23-0400 Diastolic blood pressure 70 mm[Hg] Karli Dougherty MD Work Phone: [facility] 08-31-2023 13:23-0400 Systolic blood pressure 136 mm[Hg] Karli Dougherty MD Work Phone: [facility] 08-31-2023 12:56-0400 Body height 157.5 cm Karli Dougherty MD Work Phone: [facility] 08-31-2023 12:56-0400 Body mass index (BMI) [Ratio] 27.62 kg/m2 Karli Dougherty MD Work Phone: [facility] 08-31-2023 12:56-0400 Body weight 68.49 kg Karli Dougherty MD Work Phone: [facility] 08-31-2023 12:56-0400 Heart rate 72 /min Karli Dougherty MD Work Phone: [facility] 03-14-2023 12:00-0400 Body temperature 98.1 [degF] MD Priyanka Puentes Work Phone: [facility] 03-14-2023 12:00-0400 Diastolic blood pressure 72 mm[Hg] MD Priyanka Puentes Work Phone: [facility] 03-14-2023 12:00-0400 Heart rate 70 /min MD Priyanka Puentes Work Phone: [facility] 03-14-2023 12:00-0400 Respiratory rate 12 /min MD Priyanka Puentes Work Phone: [facility] 03-14-2023 12:00-0400 SaO2% (BldA) [Mass fraction] 95 % MD Priyanka Puentes Work Phone: [facility] 03-14-2023 12:00-0400 Systolic blood pressure 155 mm[Hg] MD Priyanka Puentes Work Phone: [facility] 03-14-2023 06:00-0400 Body weight 66.3 kg MD Priyanka Puentes Work Phone: [facility] 03-12-2023 20:20-0400 Body height 157.48 cm MD Priyanka Puentes Work Phone: [facility] 03-12-2023 17:59-0400 Diastolic blood pressure 91 mm[Hg] MD Priyanka Puentes Work Phone: [facility] 03-12-2023 17:59-0400 Systolic blood pressure 199 mm[Hg] MD Priyanka Puentes Work Phone: [facility] 03-12-2023 17:33-0400 Heart rate 110 /min MD Priyanka Puentes Work Phone: [facility] 03-12-2023 17:33-0400 Respiratory rate 18 /min MD Priyanka Puentes Work Phone: [facility] 03-12-2023 17:33-0400 SaO2% (BldA) [Mass fraction] 96 % MD Priyanka Puentes Work Phone: [facility] 03-12-2023 13:44-0400 Body height 157.48 cm MD Priyanka Puentes Work Phone: [facility] 03-12-2023 13:44-0400 Body temperature 98.6 [degF] MD Priyanka Puentes Work Phone: [facility] 03-12-2023 13:44-0400 Body weight 63.5 kg MD Priyanka Puentes Work Phone: [facility] 03-07-2023 08:00-0400 Body temperature 97.9 [degF] MD Priyanka Puentes Work Phone: [facility] 03-07-2023 08:00-0400 Diastolic blood pressure 77 mm[Hg] MD Priyanka Puentes Work Phone: [facility] 03-07-2023 08:00-0400 Heart rate 78 /min MD Priyanka Puentes Work Phone: [facility] 03-07-2023 08:00-0400 Respiratory rate 16 /min MD Priyanka Puentes Work Phone: [facility] 03-07-2023 08:00-0400 SaO2% (BldA) [Mass fraction] 98 % MD Priyanka Puentes Work Phone: [facility] 03-07-2023 08:00-0400 Systolic blood pressure 167 mm[Hg] MD Priyanka Puentes Work Phone: [facility] 03-07-2023 06:10-0400 Body weight 64.7 kg MD Priyanka Puentes Work Phone: [facility] 03-06-2023 13:53-0400 Body height 157.48 cm MD Priyanka Puentes Work Phone: [facility] 03-05-2023 21:31-0400 Diastolic blood pressure 65 mm[Hg] MD Priyanka Puentes Work Phone: [facility] 03-05-2023 21:31-0400 Heart rate 85 /min MD Priyanka Puentes Work Phone: [facility] 03-05-2023 21:31-0400 SaO2% (BldA) [Mass fraction] 96 % MD Priyanka Puentes Work Phone: [facility] 03-05-2023 21:31-0400 Systolic blood pressure 145 mm[Hg] MD Priyanka Puentes Work Phone: [facility] 03-05-2023 18:47-0400 Respiratory rate 18 /min MD Priyanka Puentes Work Phone: [facility] 03-05-2023 18:00-0400 Body height 157.48 cm MD Priyanka Puentes Work Phone: [facility] 03-05-2023 18:00-0400 Body temperature 97.1 [degF] MD Priyanka Puentes Work Phone: [facility] 03-05-2023 18:00-0400 Body weight 65.7 kg MD Priyanka Puentes Work Phone: [facility] 02-16-2023 13:38-0400 Body height 157.48 cm Priyanka Puentes Work Phone: [facility] 250 DO Work Phone: 02-16-2023 13:38-0400 Body mass index (BMI) [Ratio] 26.52 kg/m2 Priyanka Puentes Work Phone: [facility] 250 DO Work Phone: 02-16-2023 13:38-0400 Body surface area Derived from formula 1.67 m2 Priyanka Puentes Work Phone: [facility] 250 DO Work Phone: 02-16-2023 13:38-0400 Body weight 65.77 kg Priyanka Puentes Work Phone: [facility] 250 DO Work Phone: 02-16-2023 13:38-0400 Diastolic blood pressure 62 mm[Hg] Priyanka Malcolmyer Work Phone: [facility] 250 DO Work Phone: 02-16-2023 13:38-0400 Heart rate 76 /min Priyanka Puentes Work Phone: [facility] 250 DO Work Phone: 02-16-2023 13:38-0400 Systolic blood pressure 128 mm[Hg] Priyanka Puentes Work Phone: [facility] 250 DO Work Phone: 08-24-2022 14:35-0400 Body height 157.48 cm Priyanka Puentes Work Phone: [facility] 250 DO Work Phone: 08-24-2022 14:35-0400 Body mass index (BMI) [Ratio] 27.98 kg/m2 Priyanka Puentes Work Phone: [facility] 250 DO Work Phone: 08-24-2022 14:35-0400 Body surface area Derived from formula 1.71 m2 Priyanka Puentes Work Phone: [facility] 250 DO Work Phone: 08-24-2022 14:35-0400 Body weight 69.4 kg Priyanka Puentes Work Phone: [facility] 250 DO Work Phone: 08-24-2022 14:35-0400 Diastolic blood pressure 54 mm[Hg] Edzeeshan Macrina Yunyer Work Phone: [facility] 250 DO Work Phone: 08-24-2022 14:35-0400 Heart rate 82 /min Edzeeshan Schrader Hemeyer Work Phone: [facility] 250 DO Work Phone: 08-24-2022 14:35-0400 Systolic blood pressure 132 mm[Hg] Edzeeshan Schrader Hemeyer Work Phone: [facility] 250 DO Work Phone: 03-17-2022 15:30-0400 Body height 157.48 cm Edzeeshan Schrader Hemeyer Work Phone: [facility] 600 DO Work Phone: 03-17-2022 15:30-0400 Body mass index (BMI) [Ratio] 30.18 kg/m2 Priyanka Schrader Hemeyer Work Phone: [facility] 600 DO Work Phone: 03-17-2022 15:30-0400 Body surface area Derived from formula 1.76 m2 Priyanka Schrader Hemeyer Work Phone: [facility] 600 DO Work Phone: 03-17-2022 15:30-0400 Body weight 74.84 kg Priyanka Schrader Hemeyer Work Phone: [facility] 600 DO Work Phone: 03-17-2022 15:30-0400 Diastolic blood pressure 58 mm[Hg] Priyanka Schrader Hemeyer Work Phone: [facility] 600 DO Work Phone: 03-17-2022 15:30-0400 Heart rate 80 /min Priyanka Puentes Work Phone: [facility] 600 DO Work Phone: 03-17-2022 15:30-0400 Systolic blood pressure 130 mm[Hg] Priyanka Malcolmyer Work Phone: [facility] 600 DO Work Phone: 02-15-2022 14:39-0400 Body height 157.48 cm Priyanka Malcolmyer Work Phone: [facility] 250 DO Work Phone: 02-15-2022 14:39-0400 Body mass index (BMI) [Ratio] 30.18 kg/m2 Priyanka Puentes Work Phone: [facility] 250 DO Work Phone: 02-15-2022 14:39-0400 Body surface area Derived from formula 1.76 m2 Priyanka Puentes Work Phone: [facility] 250 DO Work Phone: 02-15-2022 14:39-0400 Body weight 74.84 kg Priyanka Puentes Work Phone: [facility] 250 DO Work Phone: 02-15-2022 14:39-0400 Diastolic blood pressure 60 mm[Hg] Priyanka Puentes Work Phone: [facility] 250 DO Work Phone: 02-15-2022 14:39-0400 Heart rate 78 /min Priyanka Puentes Work Phone: [facility] 250 DO Work Phone: 02-15-2022 14:39-0400 Systolic blood pressure 140 mm[Hg] Priyanka Macrina Malcolmyer Work Phone: [facility] 250 DO Work Phone: 02-15-2022 14:39-0400 10 1 Priyanka Puentes Work Phone: [facility] 250 DO Work Phone: Comment on above: PHQ-9 TS 02-03-2022 17:15-0400 Diastolic blood pressure 84 mm[Hg] MD Priyanka Puentes Work Phone: [facility] 02-03-2022 17:15-0400 Heart rate 78 /min MD Priyanka Puentes Work Phone: [facility] 02-03-2022 17:15-0400 Respiratory rate 20 /min MD Priyanka Puentes Work Phone: [facility] 02-03-2022 17:15-0400 SaO2% (BldA) [Mass fraction] 94 % MD Priyanka Puentes Work Phone: [facility] 02-03-2022 17:15-0400 Systolic blood pressure 185 mm[Hg] MD Priyanka Puentes Work Phone: [facility] 02-03-2022 16:00-0400 Body temperature 97.8 [degF] MD Priyanka Puentes Work Phone: [facility] 02-03-2022 10:25-0400 Body height 157.48 cm MD Priyanka Puentes Work Phone: [facility] 02-03-2022 10:25-0400 Body weight 77.5 kg MD Priyanka Puentes Work Phone: [facility] 01-21-2022 12:00-0400 Body temperature 97.6 [degF] MD Priyanka Puentes Work Phone: [facility] 01-21-2022 12:00-0400 Diastolic blood pressure 81 mm[Hg] MD Priyanka Puentes Work Phone: [facility] 01-21-2022 12:00-0400 Heart rate 73 /min MD Priyanka Puentes Work Phone: [facility] 01-21-2022 12:00-0400 Respiratory rate 20 /min MD Priyanka Puentes Work Phone: [facility] 01-21-2022 12:00-0400 SaO2% (BldA) [Mass fraction] 94 % MD Priyanka Puentes Work Phone: [facility] 01-21-2022 12:00-0400 Systolic blood pressure 150 mm[Hg] MD Priyanka Puentes Work Phone: [facility] 01-21-2022 05:59-0400 Body weight 79.6 kg MD Priyanka Puentes Work Phone: [facility] 01-19-2022 09:50-0400 Body height 157.48 cm MD Priyanka Puentes Work Phone: [facility] 01-18-2022 00:00-0400 55 1 Priyanka Puentes Work Phone: [facility] 250 DO Work Phone: Comment on above: [id number] 01-01-2022 11:00-0400 Body height 157.48 cm Eva Panda Other [email or web address] Other 01-01-2022 11:00-0400 Body mass index (BMI) [Ratio] 31.64 kg/m2 Eva Panda Other [email or web address] Other 01-01-2022 11:00-0400 Body temperature 97.1 [degF] Eva Panda Other [email or web address] Other 01-01-2022 11:00-0400 Body weight 78.47 kg Eva Panda Other [email or web address] Other 01-01-2022 11:00-0400 Diastolic blood pressure 101 mm[Hg] Eva Panda Other [email or web address] Other 01-01-2022 11:00-0400 Respiratory rate 18 /min Eva Panda Other [email or web address] Other 01-01-2022 11:00-0400 SaO2% (BldA) [Mass fraction] 96 % Eva Panda Other [email or web address] Other 01-01-2022 11:00-0400 Systolic blood pressure 156 mm[Hg] Eva Panda Other [email or web address] Other Encounters Encounter Date Encounter Type Care Provider Facility Start: 06-11-2024 End: 06-11-2024 Telephone encounter Priyanka Puentes MD Work Phone: [facility] Start: 05-27-2024 End: 05-28-2024 Telephone encounter Priyanka [...] 15 minutes Karli Dougherty MD Work Phone: [facility] Comment on above: Status post percutan eous transluminal coronary angioplasty (Primary Dx); Coronary artery disease involving white [place] coronary artery of white [place] heart without angina pectoris; Mixed hyperlipidemia; Hypertension, benign; Body mass index (BMI) 29.0-29.9, adult; Dyspnea on exertion; Former smoker Start: 05-08-2024 End: 05-08-2024 ambulatory [facility] Start: 01-22-2024 End: 01-22-2024 ambulatory PRIYANKA PUENTES Not Available Start: 12-13-2023 End: 12-13-2023 ambulatory PRIYANKA PUENTES Not Available Start: 08-31-2023 End: 08-31-2023 Office outpatient visit 15 minutes Karli Dougherty MD Work Phone: [facility] Comment on above: Coronary artery dise ase involving white earth coronary artery of [place] heart without angina pectoris (Primary Dx); Status post percutaneous transluminal coronary angioplasty; Mixed hyperlipidemia; Hypertension, benign; Dyspnea on exertion; BMI 27.0-27.9,adult; Former smoker Start: 08-31-2023 End: 08-31-2023 ambulatory [facility] Start: 08-30-2023 End: 08-30-2023 ambulatory PRIYANKA PUENTES Not Available Start: 08-08-2023 End: 08-08-2023 ambulatory PRIYANKA PUENTES Not Available Start: 07-21-2023 Clinisync Result Encounter Priyanka Puentes MD Work Phone: [facility] Unsolicited Start: 07-21-2023 Clinisync Result Encounter Priyanka Puentes MD Work Phone: [facility] Unsolicited Start: 07-05-2023 End: 07-05-2023 ambulatory PRIYANKA PUENTES Not Available Start: 03-12-2023 End: 03-14-2023 ambulatory Sima Hdz Facility:[facility] Start: 03-12-2023 End: 03-14-2023 Evaluation and management of inpatient MD Priyanka Puentes Work Phone: [facility] [place] [facility] Work Phone: Start: 03-12-2023 End: 03-14-2023 observation encounter MD Priyanka Puentes Work Phone: [facility] Work Phone: Start: 03-06-[address] Priyanka Puentes Facility:[id number] Start: 03-05-2023 End: 03-07-2023 ambulatory Priyanka Puentes Facility:[facility] Start: 03-05-2023 End: 03-07-2023 Evaluation and management of inpatient MD Priyanka Puentes Work Phone: [facility] [place] [facility] Work Phone: Start: 03-05-2023 End: 03-07-2023 observation encounter MD Priyanka Puentes Work Phone: [facility] Work Phone: Start: 03-02-2023 Telephone encounter Priyanka bhatt Work Phone: [facility] 600 DO Work Phone: Start: 02-16-2023 Office outpatient vi sit 15 minutes Priyanka Puentes Work Phone: [facility] 250 DO Work Phone: Start: 02-16-[address] Priyanka Puentes Facility: Start: 10-05-2022 End: 10-06-[address] PRIYANKA PUENTES . Facility:[facility]1 Start: 08-24-2022 Office outpatient vi sit 25 minutes Priyanka Puentes Work Phone: [facility] 250 DO Work Phone: Start: 08-24-[address] Priyanka Puentes Facility: Start: 08-15-2022 End: 08-16-[address] ANUM WOODY Facility: Start: 06-14-2022 End: 07-19-[address] PRIYANKA PUENTES . Facility:[facility] Start: 04-12-2022 End: 04-13-[address] PRIYANKA PUENTES . Facility:[facility] Start: 03-29-2022 End: 03-30-[address] PRIYANKA PUENTES . Facility:[facility] Start: 03-25-2022 Telephone encounter Priyanka bhatt Work Phone: [facility] 250 DO Work Phone: Start: 03-17-2022 Office outpatient vi sit 25 minutes Priyanka Puentes Work Phone: [facility] 600 DO Work Phone: Start: 03-17-2022 ambulatory Ms. Khanh Persaud Facility: Start: 02-24-2022 End: 06-14-[address] PRIYANKA PUENTES . Facility:[facility] Start: 02-15-2022 Office outpatient vi sit 25 minutes Priyanka Puentes Work Phone: [facility] 250 DO Work Phone: Start: 02-07-2022 Telephone encounter Priyanka bhatt Work Phone: [facility] 250 DO Work Phone: Start: 02-03-2022 End: 02-03-2022 Admission to same day surgery center MD Priyanka Puentes Work Phone: [facility]Lead Person Start: 02-01-2022 End: 02-01-2022 Patient encounter procedure MD Priyanka Puentes Work Phone: [facility] [employer] [facility] Start: 01-27-2022 End: 01-28-[address] RAQUEL PERSAUD Facility:[facility]1 Start: 01-18-2022 End: 01-21-2022 Evaluation and management of inpatient MD Priyanka Puentes Work Phone: [facility] [place] [facility] Start: 01-18-2022 End: 01-18-2022 ambulatory BRITTNI TERRYMINERVACitlaly . Facility:[facility]1 Start: 01-01-2022 End: 01-01-2022 ambulatory Eva Panda Other [email or web address] Other Start: 01-01-2022 Office outpatient ne w 20 minutes Eva Panda [facility] Procedures Date Procedure Procedure Detail Performing Clinician Start: 05-17-2024 ALL LIPID PROFILE (FASTING) Generic External Data Provider Start: 05-17-2024 [facility] CMP (CMP) (FOR [facility] USE) Generic External Data Provider Start: 07-21-2023 [...] Work Phone: Angioplasty of blood vessel Priyanka Schrader Yunbud Work Phone: Biopsy of skin Priyanka Macrina Malcolm bud Work Phone: Excision of cyst Priyanka Macrina gilbert Work Phone: Hysterectomy Larryzeeshan Schrader Yunwilman r Work Phone: Insertion of stent i n femoral vein Priyanka Macrina Dhaval Work Phone: Reconstruction of bi le duct Priyanka Puentes Work Phone: SARS Antigen (LFIA) MD Medhat Puentes Work Phone: Tonsillectomy Priyanka Wilkins er Work Phone: NEGATED: Highlighted row has not occurred! Total colonoscopy Priyanka Schrader Yunbud Work Phone: Plan of Treatment Date Care Activity Detail Author Start: 03-28-2025 Glaucoma screening Diabetes: Retinopathy Screening [facility] Start: 12-11-2024 End: 12-11-2024 Patient encounter procedure 12/11/2024 1:30 PM EDT Office Visit [facility] [address] [facility] [address] [place] [address] Karli Dougherty MD [address] [facility] [address] [place] [address] [facility] Start: 08-30-2024 Medicare Annual Wellness Visit Medicare Annual Wellness Visit (AWV) [facility] Start: 07-29-2024 End: 07-29-2024 Patient encounter procedure [facility] Start: 07-15-2024 End: 07-15-2024 Patient encounter procedure [facility] Start: 05-14-2024 End: 05-14-2024 Patient encounter procedure 05/14/2024 1:45 PM EST Office Visit [facility] [address] [place] [address] Priyanka Puentes MD [address] [facility] [address] [place] [id number] Arrived [facility] Comment on above: Arrived Start: 05-08-2024 End: 05-08-2025 Alanine aminotransferase [Enzymatic activity/volume] in Serum or Plasma by With P-5'-P Alanine Aminotransferase Lab Routine Mixed hyperlipidemia Expected: 05/08/2024 (Approximate), Expires: 05/08/2025 [facility] Service Area Work Phone: Comment on above: Expected: 05/08/2024 (Approximate), Expi res: 05/08/2025 Start: 05-08-2024 End: 05-08-2025 Aspartate aminotransferase [Enzymatic activity/volume] in Serum or Plasma by With P-5'-P Aspartate Aminotransferase Lab Routine Mixed hyperlipidemia Expected: 05/08/2024 (Approximate), Expires: 05/08/2025 [facility] Work Phone: Comment on above: Expected: 05/08/2024 (Approximate), Expi res: 05/08/2025 Start: 05-08-2024 End: 05-08-2025 Comprehensive metabolic 2000 panel - Serum or Plasma Comprehensive Metabolic Panel Lab Routine Hypertension, benign Expected: 05/08/2024 (Approximate), Expires: 05/08/2025 [facility] Work Phone: Comment on above: Expected: 05/08/2024 (Approximate), Expi res: 05/08/2025 Start: 05-08-2024 End: 05-08-2025 Lipid 1996 panel - Serum or Plasma Lipid Panel Lab Routine Mixed hyperlipidemia Expected: 05/08/2024 (Approximate), Expires: 05/08/2025 [facility] Work Phone: Comment on above: Expected: 05/08/2024 (Approximate), Expi res: 05/08/2025 Start: 05-08-2024 End: 05-08-2024 Patient encounter procedure 05/08/2024 1:40 PM EST Office Visit [facility] [address] [facility] [address] [place] [address] Karli Dougherty MD [address] [place] [address] [facility] Start: 08-31-2023 FUV, Provider: Karli Dougherty, Status: Pen, Time: 1:00 PM FUV, Provider: Karli Dougherty, Status: Pen, Time: 1:[address] [facility] 250 DO Work Phone: Start: 08-08-2023 End: 08-08-2023 Patient encounter procedure 08/08/2023 10:00 AM EST Office Visit [facility] [address] [place] [address] Priyanka Puentes MD [address] [place] [address] (Fax) [facility] Start: 03-14-2023 [facility] Start: 03-12-2023 Referral to Senior Information Security Architect [facility] Start: 03-12-2023 Hospital admission [facility] Start: 03-12-2023 Physical therapy procedure [facility] Start: 03-12-2023 Referral to occupational therapist [facility] Start: 03-12-2023 [facility] Start: 03-07-2023 [facility] Start: 03-06-2023 Comprehensive metabolic 2000 panel - Serum or Plasma [facility] Start: 03-06-2023 Doppler ultrasonography of bilateral carotid arteries US carotid doppler BI [facility] Start: 03-06-2023 Lipid panel [facility] Start: 03-06-2023 [facility] Start: 03-05-2023 Hospital admission [facility] Start: 03-05-2023 Physical therapy procedure [facility] Start: 03-05-2023 Referral to occupational therapist [facility] Start: 03-05-2023 [facility] Start: 03-05-2023 [facility] Start: 02-16-2023 FUV, Provider: Karli Dougherty, Status: Pen, Time: 1:20 PM FUV, Provider: Karli Dougherty, Status: Pen, Time: 1:20 PM [facility] 250 DO Work Phone: Start: 01-27-2023 Urine screening for protein Diabetes: Urine Protein Screening [facility] Start: 11-15-2022 Hemoglobin A1c measurement Diabetes: Hemoglobin A1C [facility] Start: 08-23-2022 Medicare Annual Wellness (AWV) Medicare Annual Wellness (AWV) [facility] Start: 07-06-2022 FUV, Provider: Karli Dougherty, Status: Pen, Time: 2:20 PM FUV, Provider: Karli Dougherty, Status: Pen, Time: 2:20 PM [facility] Work Phone: Start: 03-17-2022 FUV, Provider: Khanh Mercado, Status: Pen, Time: 3:30 PM FUV, Provider: Khanh Mercado, Status: Pen, Time: 3:30 PM [facility] 250 DO Work Phone: Start: 02-03-2022 [facility] Work Phone: Start: 02-03-2022 Hospital admission [facility] Work Phone: Start: 02-03-2022 CL PTCA Ea Add LAD CL PTCA Ea Add LAD [facility] Start: 02-03-2022 CL Stent 1st Vessel LAD GAYATHRI CL Stent 1st Vessel LAD GAYATHRI [facility] Start: 02-03-2022 [facility] Start: 02-03-2022 End: 02-03-2022 Admission to same day surgery center Departed Surgical Day Care [facility]-Lead Person Start: 02-01-2022 End: 02-01-2022 Patient encounter procedure Departed Clinical [facility] Start: 01-21-2022 [facility] Work Phone: Start: 01-18-2022 Referral to financial services technician [facility] Work Phone: Start: 01-18-2022 Hospital admission [facility] Work Phone: Start: 01-18-2022 Dilation of Coronary Artery, Two Arteries with Four or More Drug-eluting Intraluminal Devices, Percutaneous Approach Dilation of Coronary Artery, Two Arteries with Four or More Drug-eluting Intraluminal Devices, Percutaneous Approach [facility] Start: 01-18-2022 Fluoroscopy of Left Heart using Low Osmolar Contrast Fluoroscopy of Left Heart using Low Osmolar Contrast [facility] Start: 01-18-2022 Fluoroscopy of Multiple Coronary Arteries using Low Osmolar Contrast Fluoroscopy of Multiple Coronary Arteries using Low Osmolar Contrast [facility] Start: 01-18-2022 Measurement of Cardiac Sampling and Pressure, Left Heart, Percutaneous Approach Measurement of Cardiac Sampling and Pressure, Left Heart, Percutaneous Approach [facility] Start: 10-16-2018 Urine screening for protein Diabetes: Urine Protein Screening [facility] Start: 02-21-1992 Zoster Vaccines (1 of 2) Zoster Vaccines (1 of 2) [facility] Start: 02-21-1964 DTaP/Tdap/Td Vaccines (1 - Tdap) DTaP/Tdap/Td Vaccines (1 - Tdap) [facility] Start: 02-21-1960 Diabetes mellitus screening Diabetes Screening [facility] Start: 1942 Lipid panel Lipid Panel [facility] Start: 1942 Medicare Annual Wellness Visit Medicare Annual Wellness Visit (AWV) [facility] Start: 1942 Thyroid stimulating hormone measurement TSH Level [facility] Patient Education [facility] Work Phone: Patient referral [facility] Work Phone: Immunizations Immunization Date Immunization Notes Care Provider Fa cili 04-23-2024 ABRYSVO - Respirator y syncytial virus (RSV), vaccine, bivalent, protein subunit RSV prefusion F, diluent reconstituted, 0.5 mL, PF Priyanka Puentes MD Work Phone: [facility] 04-17-2024 influenza, high dose seasonal, preservative-free Priyanka Puentes MD Work Phone: [facility] 05-09-2023 Influenza, High-dose Seasonal, Quadrivalent, Preservative Free Priyanka Puentes MD Work Phone: [facility] 05-17-2022 Fluzone High-Dose Quadrivalent 0.7 ML Intramuscular Suspension Prefilled Syringe Priyanka Puentes Work Phone: [facility] [employer] 250 DO Work Phone: 04-29-2022 Moderna Bivalent Saenz ster Vaccination Priyanka Puentes MD Work Phone: [facility] 04-29-2022 Pfizer COVID-19 Vac Bivalent 30 MCG/0.3ML Intramuscular Suspension Priyanka Puentes Work Phone: [facility] Work Phone: 04-19-2021 influenza, injectabl e, quadrivalent, preservative free Priyanka Puentes Work Phone: [facility] 03-17-2021 Pfizer-BioNTech COVI D-19 Vacc 30 MCG/0.3ML Intramuscular Suspension Priyanka Puentes Work Phone: [employer] 250 DO Work Phone: 03-16-2021 Pfizer Purple Cap SARS-CoV-2 Vaccination Priyanka Puentes MD Work Phone: [facility] 07-31-2020 COVID-19 Bob Ordonez (Pfizer) MD Priyanka Puentes Work Phone: [facility] 07-30-2020 Pfizer Purple Cap SARS-CoV-2 Vaccination Priyanka Puentes MD Work Phone: [facility] 07-08-2020 Pfizer-BioNTech COVI D-19 Vacc 30 MCG/0.3ML Intramuscular Suspension [facility] Work Phone: 07-07-2020 Pfizer Purple Cap SARS-CoV-2 Vaccination Priyanka Puentes MD Work Phone: [facility] 07-03-2020 COVID-19 mRNA, Bob wilson (Pfizer) MD Priyanka Puentes Work Phone: [facility] 03-26-2020 Seasonal trivalent influenza vaccine, adjuvanted, preservative free Priyanka Puentes Work Phone: [place] [address] DO Work Phone: 03-25-2020 Seasonal trivalent influenza vaccine, adjuvanted, preservative free Priyanka Puentes MD Work Phone: [facility] 04-09-2019 influenza, injectabl e, quadrivalent, preservative free Priyanka Puentes MD Work Phone: [facility] 04-09-2019 Seasonal trivalent influenza vaccine, adjuvanted, preservative free Priyanka Puentes Work Phone: [place] [address] DO Work Phone: 04-03-2018 influenza, injectabl e, quadrivalent, preservative free Priyanka Puentes Work Phone: [place] [address] DO Work Phone: 04-02-2018 influenza, injectabl e, quadrivalent, preservative free Priyanka Puentes MD Work Phone: [facility] 04-02-2018 pneumococcal conjuga te vaccine, 13 valent Priyanka Puentes Work Phone: [place] [address] DO Work Phone: 03-20-2017 pneumococcal conjuga te vaccine, 13 valent Priyanka Schrader Hemebud Work Phone: [place] [address] DO Work Phone: 03-13-2017 influenza, seasonal, injectable Priyanka Puentes Work Phone: [place] [address] DO Work Phone: 04-14-2016 influenza, injectabl e, quadrivalent, contains preservative Priyanka Puentes Work Phone: [facility] 250 DO Work Phone: 04-12-2016 influenza, injectabl e, quadrivalent, preservative free Priyanka Puentes MD Work Phone: [facility] 04-17-2015 influenza, injectabl e, quadrivalent, preservative free Priyanka Puentes MD Work Phone: [facility] 04-03-2015 influenza, seasonal, injectable Priyanka Puentes Work Phone: [facility] 250 DO Work Phone: 05-20-2009 pneumococcal polysaccharide vaccine, 23 valent Priyanka Puentes Work Phone: [facility] 250 DO Work Phone: Payers Date Payer Category Payer [facility] Insurance [employer] [id number] 2021 Unknown 2007 Medicare [id number] 1959 Medicare [id number] [id number] 1959 Medicare [id number] 2..840.1.981289.19 1942 Unknown [id number] 2..840.1.130253.3.579.2. 593 1942 Unknown [id number] 2.16.840.1.866567.3.579.2. 593 1942 Unknown [id number] 2.16.840.1.152631.3.579.2. 593 1942 Unknown [id number] 2.16.840.1.053846.3.579.2. 593 1942 Unknown [id number] 2.16.840.1.314944.3.579.2. 593 1942 Unknown [id number] 2.16.840.1.940857.3.579.2. 593 1942 Unknown [id number] 2.16.840.1.523310.3.579.2. 593 1942 Unknown [id number] 2.16.840.1.977219.3.579.2. 593 1942 Unknown [id number] 2.16.840.1.625840.3.579.2. 356 1942 Unknown [id number] 2.16.840.1.645723.3.579.2. 356 1942 Unknown [id number] 2.16.840.1.758789.3.579.2. 356 1942 Unknown [id number] 2.16.840.1.197572.3.579.2. 356 1942 Unknown [id number] 2.16.840.1.994683.3.579.2. 1244 1942 Unknown [id number] 2.16.840.1.283263.3.579.2. 1244 1942 Unknown [id number] 2.16.840.1.341001.3.579.2. 1259 1942 Unknown [id number] 2.16.840.1.070879.3.579.2. 1259 1942 Unknown [id number] 2.16.840.1.283064.3.579.2. 1259 1942 Unknown [id number] 2.16.840.1.386218.3.579.2. 1259 1942 Unknown [id number] 2.16.840.1.155258.3.579.2. 1259 1942 Unknown [id number] 2.16.840.1.331388.3.579.2. 1259 Medicare Medicare Outpatient [id number] Self-pay Self Pay [id number] Unknown [id number] Unknown [facility] [id number] Social History Date Type Detail Facility Start: 02-14-2023 End: 08-30-2023 Sex Assigned At [facility] Start: 02-03-2022 End: 08-08-2023 Tobacco smoking status [facility] Ex-smoker (finding) [facility] Start: 1940 Sex Assigned At Female F [facility] Start: 02-14-2023 End: 08-30-2023 Former smoker Former smoker [facility] Comment on above: nicotine lozenges; Start: 03-12-2023 Tobacco smoking stat us [facility] Smoker (finding) [facility] History of tobacco use Cigarette Smoker [...] - these days [OSQ] Not at all [facility] (I/We) worried wheth er (my/our) food would run out before (I/we) got money to buy more. Never true [facility] Start: 02-14-2023 Tobacco Comment Last smoked : 1-5 years [facility] Start: 01-18-2023 Alcohol Comment Caffeine intak e: 3 cups decaf per day [facility] Start: 1940 Sex Assigned At Not on file [facility] Start: 08-08-2023 End: 08-31-2023 Tobacco use and exposure Smokeless tobacco non-user [facility] Work Phone: Start: 08-31-2023 End: 05-08-2024 Alcohol intake Lifetime non-drinker (finding) [facility] Work Phone: Start: 08-21-2023 End: 05-08-2024 Exposure to SARS-CoV-2 (event) Not sure [facility] Medical Equipment Procedure Code Equipment Code Equipment Original Text Equipment Identifier Dates [id number] FDA Start: 01-20-2022 Drug-eluting cor onary artery stent, yoc-sclyhavqryjqu-rsxwy er-coated ()[id number] FDA Start: 01-20-2022 Drug-eluting cor onary artery stent, zgj-yybumbbzzygsb-hedyg er-coated ()[id number] [id number] FDA Start: 01-20-2022 Drug-eluting cor onary artery stent, hdn-jzmysexleikzh-lecda er-coated ()[id number] [id number] FDA Start: 01-20-2022 Drug-eluting cor onary artery stent, tln-tsbpkeqhzyvwp-vremk er-coated ()[id number] [id number] FDA Start: 02-03-2022 [id number] FDA Start: 01-20-2022 [id number] FDA Start: 01-20-2022 [id number] FDA Start: 01-20-2022 [id number] FDA Start: 01-20-2022 [id number] FDA Start: 01-20-2022 [id number] FDA Start: 01-20-2022 Goals Date Patient Goal Desired Activity /State Functional Status Date Assessment Result Facility 03-14-2023 Functional status Patient at Baseline [facility] Work Phone: 03-07-2023 Functional status Patient at Baseline [facility] Work Phone: 03-05-2023 Functional status Disability Sta tus Patient at Baseline [facility] Work Phone: 02-15-2022 PHQ-9 [id number] Moderate (10-14) -[facility] 250 DO Work Phone: 02-03-2022 Functional status Patient at Baseline [facility] Work Phone: 01-21-2022 Functional status Patient at Baseline [facility] Work Phone: Mental Status Date Assessment Result Facility 03-14-2023 Cognitive function Cognitive Sta tus Patient at Baseline [facility] Work Phone: 03-07-2023 Cognitive function Cognitive Sta tus Patient at Baseline [facility] Work Phone: 02-03-2022 Cognitive function Cognitive Sta tus Patient at Baseline [facility] Work Phone: 01-21-2022 Cognitive function Cognitive Sta tus Patient at Baseline [facility] Work Phone: Clinical Notes 08-24-2021 to 06-11-2024 Telephone Encounter - Priyanka Puentes MD - 06/11/2024 10:42 AM ESTTelephone Encounter - Priyanka Puentes MD - 06/11/2024 10:42 AM ESTTelephone Encounter - Kathia Nieves - 06/11/2024 10:15 AM EST Note Date & Type Note Facility 06-11-2024 Telephone encounter Note Rx sent [facility] 06-11-2024 Miscellaneous Notes Rx sent Steven called, She is going today for her xray on her hip. She states that she will be out of her gabapentin 100 mg today. She is requesting a refill to help with her pain. She stated tht nothing is scheduled yet on getting it fixed. She uses [facility] [place]. documented in this encounter [facility] 06-11-2024 Telephone encounter Note Steven called, She is going today for her xray on her hip. She states that she will be out of her gabapentin 100 mg today. She is requesting a refill to help with her pain. She stated tht nothing is scheduled yet on getting it fixed. She uses [facility] [place]. [facility] 05-28-2024 Telephone encounter Note Called [facility] sOMEHOW THEY DO NOT HAVE THIS ORDER AND THERE WAS NO rx DONE. REPRINTED EXSISTING ORDER AND lm ON Steven'S PHONE THAT IT WOULD BE FAXED OVER THERE. [facility] 05-28-2024 Miscellaneous Notes Called [facility] sOMEHOW THEY DO NOT HAVE THIS ORDER AND THERE WAS NO rx DONE. REPRINTED EXSISTING ORDER AND lm ON Steven'S PHONE THAT IT WOULD BE FAXED OVER THERE. Called and talked with her. Pain relief with 2 gabapentin 100mg. Reviewed lumbar X ray with her, after preview no hip x ray. Will contact [facility] tomorrow and try to get results. Steven left a message on the nurse line. She states she has not heard back on her hip and back xray and that she is still in a lot of pain. She is requesting a call back. documented in this encounter [facility] 05-27-2024 Telephone encounter Note Called and talked with her. Pain relief with 2 gabapentin 100mg. Reviewed lumbar X ray with her, after preview no hip x ray. Will contact [facility] tomorrow and try to get results. [facility] 05-27-2024 Telephone encounter Note Steven left a message on the nurse line. She states she has not heard back on her hip and back xray and that she is still in a lot of pain. She is requesting a call back. [facility] 05-14-2024 History of Presen t illness Narrative [...] is not improving. documented in this encounter [facility] 05-08-2024 History of Presen t illness Narrative [...] coronary angioplasty 2. Coronary artery disease involving white earth coronary artery of white earth heart without angina pectoris Follow Up In Cardiology Follow Up In Cardiology 3. Mixed hyperlipidemia Alanine Aminotransferase Aspartate Aminotransferase Lipid Panel Alanine Aminotransferase Aspartate Aminotransferase Lipid Panel 4. Hypertension, benign Comprehensive Metabolic Panel Comprehensive Metabolic Panel 5. Body mass index (BMI) 29.0-29.9, adult 6. Dyspnea on exertion 7. Former smoker Scribe Attestation By signing my name below, I, Katharina Krause LPN, [place] attest that this documentation has been prepared [...] discussion and plan. documented in this encounter [facility] Work Phone: 05-08-2024 Instructions Katharina Seay LPN [...] instructions on exercise. documented in this encounter [facility] Work Phone: 08-31-2023 History of Presen t [...] 3 Assessment/Plan 1. Coronary artery disease involving white earth coronary artery of white earth heart without angina pectoris Follow Up In Cardiology 2. Status post percutaneous transluminal coronary angioplasty 3. Mixed hyperlipidemia atorvastatin (Lipitor) 80 mg tablet 4. Hypertension, benign 5. Dyspnea on exertion 6. BMI 27.0-27.9,adult 7. Former smoker Scribe Attestation By signing my name below, IRuba LPN , [place] attest that this documentation has been prepared [...] discussion and plan. documented in this encounter [facility] Work Phone: 08-31-2023 Instructions Ruba Chowdhury LPN [...] instructions on exercise. documented in this encounter [facility] Work Phone: 03-13-2023 Progress note Note Date/Time March 13, 2023 4:47pm [facility] [address] [place] [address] Hospitalist Progress Note Signed Patient: Steven Harding MR#: [id number] : 1940 Acct:[id number] Age/Sex: 83 / F Adm Date: 3 Loc: 4 Room: [address] [place] [address] Type: ADM INOo Attending Dr: Rufus Ricks [...] Hyponatremia of 128. TSH was suppressed on [place] Thyroid and has been checked twice with [...] <Electronically signed by Rufus Ricks DO> 03/13/23 0015 [facility] Work Phone: 1(292) 617-410010-01-2023 History and physical note Author Sima Hdz [facility] March 12, 2023 7:49pm Note Date/Time March 12, 2023 7: 50pm [facility] [address] [place] [address] Hospitalist H&P Signed Patient: Steven Harding MR#: [id number] : 1940 Acct:[id number] Age/Sex: 83 / F Adm Date: 3 Loc: Room: [address] [place] [address] Type: ADM IN Attending Dr: Sima Hdz [...] negative unless noted below or in HPI [facility] Medical History Aneurysm Aortic. Being monitored. Per pt found at [facility] during last [...] Confirmed 03/05/23] thyroid (pork) 60 mg tablet (VP RHEUMATOLOGY Thyroid) 60 mg PO BID 01/18/22 [History [...] % (Auto) 13.2 % (.) 03/12/23 14:45 [place] % (Auto) 5.1 % (.) 03/12/23 14:45 Eos % (Auto) 2.0 % (.) 03/12/23 14:45 Baso % (Auto) 0.4 % (.) 03/12/23 14:45 Nucleat RBC Rel Count 0.0 /100 WBC (0-0.5) 03/12/23 14:45 Neut # (Auto) 7.0 x10E3/uL (1.8-7.7) 03/12/23 14:45 Lymph # (Auto) 1.2 x10E3/uL (1.00-4.8) 03/12/23 14:45 [place] # (Auto) 0.5 x10E3/uL (0.0-0.8) 03/12/23 14:45 [...] pH 7.5 (5.0-9.0) 03/12/23 15:55 Ur Specific [place] 1.010 (1.001-1.030) 03/12/23 15:55 Urine Protein Negative [...] Hyponatremia of 128. TSH was suppressed on [place] Thyroid and has been checked twice with [...] <Electronically signed by Sima Hdz MD> 03/12/231948 [facility] Work Phone: 1(883) 335-805209-26-2023 Discharge summary Author Chuck Chacon [facility] March 07, 2023 9:30am Note Date/Time March 07, 2023 9:30am [facility] [address] [place] [address] Discharge Summary Signed Patient: Steven Harding MR#: [id number] : 1940 Acct:[id number] Age/Sex: 83 / F Adm Date: 3 Loc: Room: [address] [place] [address]: Chuck Chacon MD Copies to: [...] been attempted on scopolamine patch, and her financial services technician had decreased herlosartan dose. She presented again [...] follow-up with her primary care physician and financial services technician as an outpatient for further management. She may be reintroduced to some of her cardioprotective antihypertensives in the future if deemed reasonable by her financial services technician and primary care physician. 35 minutes spent [...] TABLET BY MOUTH TWICE DAILY thyroid (pork) [VP RHEUMATOLOGY Thyroid] 60 mg tablet 60 mg PO [...] <Electronically signed by Chuck Chacon MD> 03/07/23929 [facility] Work Phone: 1(772) 872-522509-25-2023 Progress note Author Chuck Chacon [facility] March 06, 2023 1:51pm Note Date/Time March 06, 2023 1:38pm [facility] [address] [place] [address] Hospitalist Progress Note Signed Patient: Steven Harding MR#: [id number] : 1940 Acct:[id number] Age/Sex: 83 / F Adm Date: 3 Loc: Room: [address] [place] [address] Type: ADM INOo Attending Dr: Chuck Chacon [...] 1,000 Ml IV 03/07/23 07:49 60 mls/hr .[id number] YVROSE Administration Insulin Aspart 0 units 03/06/23 [...] status Documented By: Chuck Chacon MD 3 1846 Signed By: <Electronically signed by Chuck Chacon MD> 03/06/23 0910 [facility] Work Phone: 1(788) 170-701809-25-2023 History and physical note Author Jemal Jones [facility] March 05, 2023 11:19pm Note Date/Time March 05, 2023 10:21pm [facility] [address] [place] [address] Hospitalist H&P Signed Patient: Steven Harding MR#: [id number] : 1940 Acct:[id number] Age/Sex: 83 / F Adm Date: 3 Loc: Room: [address] [place] [address] Type: ADM INOo Attending Dr: Jemal Jones [...] current visual changes, headache. Noted that her financial services technician has recently decreased her losartan due to [...] except as mentioned elsewhere in the documentation [facility] Medical History Aneurysm Aortic. Being monitored. Per pt found at [facility] during last [...] Confirmed 03/05/23] thyroid (pork) 60 mg tablet (VP RHEUMATOLOGY Thyroid) 60 mg PO BID 01/18/22 [History [...] % (Auto) 14.7 % (.) 03/05/23 18:07 [place] % (Auto) 5.4 % (.) 03/05/23 18:07 Eos % (Auto) 2.8 % (.) 03/05/23 18:07 Baso % (Auto) 0.5 % (.) 03/05/23 18:07 Nucleat RBC Rel Count 0.1 /100 WBC (0-0.5) 03/05/23 18:07 Neut # (Auto) 8.7 x10E3/uL (1.8-7.7) H 03/05/23 18:07 Lymph # (Auto) 1.7 x10E3/uL (1.00-4.8) 03/05/23 18:07 [place] # (Auto) 0.6 x10E3/uL (0.0-0.8) 03/05/23 18:07 [...] <Electronically signed by Jemal Jones MD> 03/05/[address] [facility] [place] [facility] Work Phone: 1(653) 745-449108-25-2022 [facility] Progress note Author Wiley Beal [facility] January 20, 2022 1:31pm Note Date/Time January 20, 2022 1: 31pm [facility] [address] [place] [address] Hospitalist Progress Note Signed Patient: Steven Harding MR#: [id number] : 1940 Acct:[id number] Age/Sex: 81 / F Adm Date: 2 Loc: Room: [address] [place] [address] Type: ADM IN Attending Dr: Wiley Beal [...] of care and confirmed it with the resident/student/VP RHEUMATOLOGY. Patient was seen and examined at bedside [...] Dextrose-0.45 % Nacl IV 01/20/23 09:14 .Q10H [facility] Insulin Aspart 0 units 01/19/22 08:00 01/20/22 [...] <Electronically signed by Wiley Beal MD> 01/20/22 [facility] Work Phone: 1(130) 164-663308-11-2022 Procedure [facility]08-10-2022 Procedure [facility]08-10-2022 Progress note Author Wiley Beal [facility] January 19, 2022 1:35pm Note Date/Time January 19, 2022 1: 35pm [facility] [address] [place], [place] [address] Hospitalist Progress Note Signed Patient: Steven Harding MR#: [id number] : 1940 Acct:[id number] Age/Sex: 81 / F Adm Date: 2 Loc: Room: [address] [place] [address] Type: ADM IN Attending Dr: Wiley Beal [...] pain. [facility] he pain is much better CXR [facility] ED reported as no acute cardiopulmonary abnormality EKG [facility] ED (i personally reviewed it) shows NSR@90 bpm no significant acute changes nitro patch(started in [facility]) Morphine prn Telemetry Antiplatelet: Aspirin Anticoagulation: Heparin Drip (started in [place] ED) Start Beta sarbjit therapy Serial EKGs [...] <Electronically signed by Wiley Beal MD> 01/19/22 1335 [facility] Work Phone: 1(330) 393-300608-10-2022 Consult note Author Karli Dougherty [facility] January 19, 2022 12:38pm Note Date/Time January 19, 2022 12 :25pm [facility] [address] [place] [address] Cardiology Consult Note Signed with Addenda Patient: Steven Harding MR#: [id number] : 1940 Acct:[id number] Age/Sex: 81 / F Adm Date: 2 Loc: Room: [address] [place] [address] Type: ADM IN Attending Dr: Wiley Beal [...] Confirmed 01/18/22] thyroid (pork) 60 mg tablet (VP RHEUMATOLOGY Thyroid) 60 mg PO DAILY 01/18/22 [History [...] x10E3/uL Lymph # (Auto) 1.5 (1.00-4.8) x10E3/uL [place] # (Auto) 0.4 (0.0-0.8) x10E3/uL Eos # [...] invasive assessment Documented By: Karli Dougherty MD 01/19/222 Signed By: <Electronically signed by MD Karli Dougherty> 01/19/22 5426 [facility] Work Phone: 1(371) 421-795008-10-2022 History and physical note Author Justa Westfall [facility] January 19, 2022 7:35am Note Date/Time January 18, 2022 11: 29pm [facility] [address] [place] [address] Hospitalist H&P Signed Patient: Steven Harding MR#: [id number] : 1940 Acct:[id number] Age/Sex: 81 / F Adm Date: 2 Loc: Room: [address] [place] [address] Type: ADM IN Attending Dr: Justa Westfall MD Copies to: MD Justa Santos MD~ HPI DATE OF EXAMINATION: 01/18/22 HISTORY OF PRESENT ILLNESS: This is a pleasant 81F with PMH of HTN, PAD(s/p stenting), Prediabetes, Hypothyroidism who p/w chest pain to the [facility] and transferred for the evaluation and [...] Confirmed 01/18/22] thyroid (pork) 60 mg tablet (VP RHEUMATOLOGY Thyroid) 60 mg PO DAILY 01/18/22 [History [...] pain. [facility]. he pain is much better CXR [facility] ED reported as no acute cardiopulmonary abnormality EKG [facility] ED (i personally reviewed it) shows NSR@90 bpm no significant acute changes nitro patch(started in [place]) Morphine prn Telemetry Antiplatelet: Aspirin Anticoagulation: Heparin Drip (started in [place]) Start Beta sarbjit therapy Serial EKGs [...] bedside Documented By: Justa Westfall MD 01/18/22 7652 Signed By: <Electronically signed by Justa Westfall MD> 01/19/22 0784 [facility] Work Phone: 1(342) 161-667607-23-2022 Evaluation note* Encounter Date Diagnosis Assessment Notes [...] worsening symptoms or concerns. You may use jpnv-dad-qwqtkvv lidocaine gel to the rash for comfort. Patient reports her data analyst report writer is Dr. Lenz, she will follow-up with them on Monday. [email or web address] Other 03-15-2022 History of Present illness Narrative* [...] and importance of staying active and exercise [facility] 250 DO Work Phone: Discharge summary Author Wiley Beal [facility] January 22, 2022 4:43pm Note Date/Time January 21, 2022 1: 46pm [facility] [address] [place] [address] Discharge Summary Signed Patient: Steven Harding MR#: [id number] : 1940 Acct:[id number] Age/Sex: 81 / F Adm Date: 2 Loc: Room: [address] [place] [address]: Wiley Beal MD Copies to: [...] was anticoagulated with heparin, taken to the Lead Person. On January 19, she was found to [...] % (Auto) 74.5, Lymph % (Auto) 14.2, [place] % (Auto) 6.7, Eos % (Auto) 4.2, Baso % (Auto) 0.4, Neut # (Auto) 6.3, Lymph # (Auto) 1.2, [place] # (Auto) 0.6, Eos# (Auto) 0.4, Baso [...] You are scheduled for STAGED ANGIOPLASTY at [facility] on 02/03/2022 at 1:00pm with Dr Hooks; please check in at 11:00am- follow instructions You are scheduled for COVID testing at [facility] on 02/01/2022 at 10:00am for upcoming Angioplasty. [...] doctor or pharmacist, without first calling the financial services technician who implanted the stent. If you require [...] weight lifting, stair steppers, etc. until the financial services technician approves these activities. Check with the financial services technician on your first follow-up visit. CALL YOUR PHYSICIAN at [phone]: -If bleeding should occur from the catheter insertion site- apply pressure to the site then immediately call us. -Report any fever, redness, drainage, increased swelling, or firmness at the catheter insertion site. Some bruising or slight swelling may be present at thetime of discharge. -Should arm or leg become cold, numb, white, or blue, contact the financial services technician immediately. -IF you should experience episodes of [...] is recommended. Please call Central Scheduling at [phone] to schedule your appointment.] The attending financial services technician or [facility] nurse clinician should provide you with specific instructions regarding activity, diet, medications, and further follow up for you. Follow the medication instructions provided on your discharge. If the dosages and instructions on this sheet differ from the dosage and instructions on the bottle, follow the instructions on the bottle. [facility] is not responsible for incorrect prescription [...] tablet 100 mg PO DAILY thyroid (pork) [VP RHEUMATOLOGY Thyroid] 60 mg tablet 60 mg PO DAILY Label Comments: TAKE 1 TABLET BY MOUTH TWICE DAILY ON AN EMPTY STOMACH Other Ambulatory Orders: Basic Metabolic Panel (Routine) Timeframe: [id number] Location: Determined by Patient Ordered By: Diony Hooks Follow Up: [facility] [Outside] - 01/27/22 4:00 pm Documented By: Wiley Beal MD 01/21/22 1342 Signed By: <Electronically signed by Wiley Beal MD> 01/22/22 1643 [facility] Work Phone: Discharge summary Author Rufus Ricks [facility] March 14, 2023 3:31pm Note Date/Time March 14, 2023 3: 31pm [facility] [address] [place] [address] Discharge Summary Signed Patient: Steven Harding MR#: [id number] : 1940 Acct:[id number] Age/Sex: 83 / F Adm Date: 3 Loc: Room: [address] [place] [address]: Rufus Ricks DO Copies to: [...] DAILY Qty: 30 0RF Held thyroid (pork) [VP RHEUMATOLOGY Thyroid] 60 mg tablet 60 mg PO [...] signed by Rufus Ricks DO> 03/14/23 1531 [facility] Work Phone: Evaluation note* Diagnosis Onset Date Resolution Status ACS (acute coronary syndrome) acute Hypertension acute Hypothyroidism acute NSTEMI (non-ST elevated myocardial infarction) acute Peripheral vascular disease acute Prediabetes acute [facility] Work Phone: Evaluation note* Diagnosis Onset Date Resolution Status Dizziness acute [facility] Work Phone: Evaluation note* Diagnosis Onset Date Resolution Status Acute hyponatremia acute Dizziness acute Pre-syncope acute [facility] Work Phone: Evaluation note* Diagnosis Onset Date Resolution Status Acute hyponatremia acute Dizziness acute Pre-syncope acute Acute hyponatremia acute CAD (coronary artery disease) acute Hypertensive urgency acute Hypothyroidism acute [facility] Work Phone: Evaluation note* Diagnosis Coronary artery disease involving white earth coronary artery of white earth heart without angina pectoris- Primary Status post percutaneous transluminal coronary angioplasty Postsurgical percutaneous transluminal coronary angioplasty status Mixed hyperlipidemia Hypertension, benign Essential hypertension, benign Dyspnea on exertion Other dyspnea and respiratory abnormality BMI 27.0-27.9,adult Former smoker Personal history of tobacco use, presenting hazards to health documented in this encounter [facility] Work Phone: Evaluation note* Diagnosis Status post percutaneous transluminal coronary angioplasty- Primary Postsurgical percutaneous transluminal coronary angioplasty status Coronary artery disease involving white earth coronary artery of white earth heart without angina pectoris Mixed hyperlipidemia Hypertension, benign Essential hypertension, benign Body mass index (BMI) 29.0-29.9, adult Dyspnea on exertion Other dyspnea and respiratory abnormality Former smoker Personal history of tobacco use, presenting hazards to health documented in this encounter [facility] Work Phone: Evaluation note* Diagnosis Acute right-sided low back pain with right-sided sciatica Right hip pain Pain in joint, pelvic region and thigh Pain of right sacroiliac joint Overweight (BMI 25.0-29.9) Overweight documented in this encounter [facility] HealthcareEvaluation note* Diagnosis Acute right-sided low back pain with right-sided sciatica documented in this encounter [facility] Author Sima Hdz [facility] March 12, 2023 7:49pm Note Date/Time March 12, 2023 7: 50pm [facility] [address] [place] [address] Hospitalist H&P Signed Patient: Steven Harding MR#: [id number] : 1940 Acct:[id number] Age/Sex: 83 / F Adm Date: 3 Loc: Room: [address] [place] [address] Type: ADM IN Attending Dr: Sima Hdz [...] negative unless noted below or in HPI [facility] Medical History Aneurysm Aortic. Being monitored. Per pt found at [facility] during last [...] Confirmed 03/05/23] thyroid (pork) 60 mg tablet (VP RHEUMATOLOGY Thyroid) 60 mg PO BID 01/18/22 [History [...] % (Auto) 13.2 % (.) 03/12/23 14:45 [place] % (Auto) 5.1 % (.) 03/12/23 14:45 Eos % (Auto) 2.0 % (.) 03/12/23 14:45 Baso % (Auto) 0.4 % (.) 03/12/23 14:45 Nucleat RBC Rel Count 0.0 /100 WBC (0-0.5) 03/12/23 14:45 Neut # (Auto) 7.0 x10E3/uL (1.8-7.7) 03/12/23 14:45 Lymph # (Auto) 1.2 x10E3/uL (1.00-4.8) 03/12/23 14:45 [place] # (Auto) 0.5 x10E3/uL (0.0-0.8) 03/12/23 14:45 [...] pH 7.5 (5.0-9.0) 03/12/23 15:55 Ur Specific [place] 1.010 (1.001-1.030) 03/12/23 15:55 Urine Protein Negative [...] Hyponatremia of 128. TSH was suppressed on [place] Thyroid and has been checked twice with [...] <Electronically signed by Sima Hdz MD> 03/12/231948 [facility] Work Phone: History general Narrative - Reported* Type Description Date Medical History Hypertension Medical History Insulin Resistant Surgical History teeth extraction upper Surgical History skin cancer removal 2018 Hospitalization History see above [email or web address] Other History of Present illness Narrative* The [...] the patient complains of medication side effects. -[facility] 250 DO Work Phone: History of Present [...] medication regimen. She denies medication side effects. -[facility] 600 DO Work Phone: History of Present [...] her back in 6 months and follow-up [facility] 250 DO Work Phone: [facility]: [facility] Work Phone: [facility] Work Phone: Progress note Author Wiley Beal [facility] January 21, 2022 1:42pm Note Date/Time January 21, 2022 1: 42pm [facility] [address] [place] [address] Hospitalist Progress Note Signed Patient: Steven Harding MR#: [id number] : 1940 Acct:[id number] Age/Sex: 81 / F Adm Date: 2 Loc: Room: [address] [place] [address] Type: ADM IN Attending Dr: Wiley Beal [...] of care and confirmed it with the resident/student/VP RHEUMATOLOGY. Patient was seen and examined at bedside [...] Ml Insuln.Pen SUBCUT 01/19/23 07:59 Not Given TID.[facility] Protocol Losartan Potassium 100 mg 01/18/22 23:10 [...] signed by Wiley Beal MD> 01/21/22 1342 [facility] Work Phone: Reason for referral (narrative)* Consultation (Routine) - Authorized Specialty Diagnoses / Procedures Referred By Contac t Referred To Contact Cardiology Diagnoses Coronary artery disease involving white earth coronary artery of white earth heart without angina pectoris Procedures Follow Up In Cardiology Karli Dougherty MD [address] [facility] 2, [address] [place] [address] Karli Dougherty MD [address] [facility] 2, [address] [place] [address] Referral ID Status Reason Start Date Expiration Date V isits Requested Visits Authorized [id number] Authorized 08/31/2023 08/30/2024 1 1 [facility] Work Phone: Chief Complaint and [...] Documents on File Type Date Recorded Patient Chef Concierge Expl anation Power of Morphologist 09/04/2023 3:30 PM 09-03 Healthcare Proxy Family History No Family History Records FoundUnknown Family Member Name Dates Details Family history of cardiac di sorder: Mother, Father(V17.49, Z82.49) Status:Active Chief Complaint * I am not doing well * STEVEN HRADING is being seen for follow-up of a hospitalization for chest pain. * Patient was recently hospitalized at [facility]. The patient was seen in Cardiology consult with subsequent cardiovascular management by [facility]. Hospitalization records have been reviewed. * Reason for Cardiology Consultation: ACS * Consulting Recording Engineer: Dr. Dougherty * Cardiovascular testing: Echo, cath with subsequent PCI * Changes to cardiovascular medical regimen at time of discharge: ASA, brilinta, lipitor lopressor, aldactone * Discharge disposition: Home * Reports admit at [facility] d/t 'kidney pain and being dehydrated'. Spironolactone [...] tomorrow * 3. Begin cardiac rehab at [facility] * 4. Lipid profile in 2 months (new statin initiation) * 5. Keep scheduled f/u in 6 weeks to reassess * 6. Obtain CT from [facility] to verify surveillance testing. * 7. RN [...] months Specialty Diagnoses / Procedures Referred By Contac t Referred To Contact Cardiology Diagnoses Coronary artery disease involving white earth coronary artery of white earth heart without angina pectoris Procedures Follow Up In Cardiology Karli Dougherty MD [address] [place] [address], [place] [address] Phone: tel: fax: Karli Dougherty MD [address] [place] [address] 2, [place] [id number] Phone: tel: fax: Referral ID Status Reason Start Date Expiration Date V isits Requested Visits Authorized [id number] Authorized 08/31/2023 08/30/2024 1 1 Reason Comments [...] MD Admit Provider, Attending Provi mireille Active Administrative And Program Specialist Relationship Specialty Start Date End Date Priyanka Puentes MD [address] [place] [address] PCP - ACO Reach 11/03/22 Priyanka Puentes MD [address] [place] [id number] PCP - General Family Medicine 12/21/22 Karli Dougherty MD [address] [address] Referring Physician Cardiology 07/20/23 Administrative And Program Specialist Relationship Specialty Start Date End Date Priyanka Puentes MD [address] [place] [address] PCP - General 06/12/99 Administrative And Program Specialist Relationship Specialty Start Date End Date Priyanka Puentes MD [address] [place] [address] PCP - General 06/12/99 Administrative And Program Specialist Relationship Specialty Start Date End Date Priyanka Puentes MD [address] [address] (Fax) PCP - ACO Reach 11/03/22 Priyanka Puentes MD [address] [address] (Fax) PCP - General Family Medicine 12/21/22 Karli Dougherty MD [address] [place] [address] Referring Physician Cardiology 07/20/23 Administrative And Program Specialist Relationship Specialty Start Date End Date Priyanka Puentes MD [address] [place] [address] (Fax) PCP - ACO Reach 11/03/22 Priyanka Puentes MD [address] [address] (Fax) PCP - General Family Medicine 12/21/22 Karli Dougherty MD [address] [place] [address] Referring Physician Cardiology 07/20/23 Administrative And Program Specialist Relationship Specialty Start Date End Date Priyanka Puentes MD [address] [address] (Fax) PCP - ACO Reach 11/03/22 Priyanka Puentes MD [address] [address] (Fax) PCP - General Family Medicine 12/21/22 Karli Dougherty MD [address] [place] [address] Referring Physician Cardiology 07/20/23 Administrative And Program Specialist Relationship Specialty Start Date End Date Priyanka Puentes MD [address] [place] [phone] (Fax) PCP - ACO Reach 11/03/22 Priyanka Puentes MD [address] [address] (Fax) PCP - General Family Medicine 12/21/22 Karli Dougherty MD [address] [place] [address] Referring Physician Cardiology 07/20/23 Administrative And Program Specialist Relationship Specialty Start Date End Date Priyanka Puentes MD [address] [address] (Fax) PCP - ACO Reach 11/03/22 Priyanka Puentes MD [address] [address] (Fax) PCP - General Family Medicine 12/21/22 Karli Dougherty MD [address] [place] [address] Referring Physician Cardiology 07/20/23 INFORMATION SOURCE (unrecogn ized section and content) DATE CREATED AUTHOR 10/18/2022 [facility] DATE CREATED AUTHOR AUTHOR'S ORGANIZ ATION 02/18/2023 [facility] DATE CREATED AUTHOR AUTHOR'S ORGANIZ ATION 03/15/2023 [facility] DATE CREATED AUTHOR AUTHOR'S ORGANIZ ATION 03/18/2023 [facility] DATE CREATED AUTHOR AUTHOR'S ORGANIZ ATION 05/11/2024 [facility] DATE CREATED AUTHOR AUTHOR'S ORGANIZ ATION 05/16/2024 [facility] dical Specialists EPIC Goals (unrecognized section and [...] BE BASED ON THE PRIMARY CLINICAL RECORDS. [employer] [facility]. provides no warranty or guarantee of the accuracy or completeness of information in this document.
== END 2024-07-10 13:42 | disposition home or self-care (01) ==
LOC: CT 13:41
PROVIDERS: PCP Family Medicine; Visit Provider Physician Assistant
DX: M50.30 Other cervical disc degeneration, unspecified cervical region (principal); M54.16 Radiculopathy, lumbar region; M47.816 Spondylosis without myelopathy or radiculopathy, lumbar region; I71.43 Infrarenal abdominal aortic aneurysm, without rupture
CPT/HCPCS: 72131

== ENCOUNTER 2024-07-16 13:05 | Outpatient (OUT) | payer MEDICARE, OTHER, SELFPAY ==
--- OUTSIDE RECORDS SUMMARY | 2024-07-16 13:28 | XMS_ITS | CCD ---
Author Organization [facility] Care Team Providers Care Unmanned Aircraft Systems Roboticist Name Role Phone Eva Panda Unavailable MD Priyanka Puentes Primary Care Provider MD Justa Westfall Admit Provider [phone] MD Wiley Beal Attending Provider [phone] DEONTE Monzon Other Provider Unavailable DO Isaiah Cordova Other Provider MD Vik Segura Other Provider MD Moshe Hernandez Other Provider MD Karli Dougherty Other Provider MD Anatoly Massey Other Provider FRANCOIS Mercado Other Provider MD Almita Asif Other Provider MD Dora Levine Other Provider MD Lydia Kern Other Provider MD Diony Hooks Attending Provider [phone] Priyanka Puentes Unavailable Unavailable Unavailable DR ANUM WOODY Admitting Unavailable HEMESEVERINO ., DR MATHEW Consulting Unavailable DR ANUM WOODY Attending Unavailable HEMESEVERINO ., DR MATHEW Primary Care Unavailable HEMEYER ., DR MATHEW Admitting Unavailable HEMESEVERINO ., DR MATHEW Attending Unavailable HEMESEVERINO ., DR MATHEW Consulting Unavailable DHAVAL ., [...] Provider MD Chuck Chacon Attending Provider [phone] SHANTEL Dhillon Emergency Provider MD Sima Hdz Admit Provider MD Sima Hdz Attending Provider [facility] Rufus Bosch Attending Provider Dr. Priyanka [...] Ricks Attending Unavailable Priyanka Puentes MD Unavailable [phone] Priyanka Puentes MD Primary Care Provider [phone] Karli Dougherty MD Unavailable Priyanka Puentes MD Primary Care Provider Priyanka Puentes MD Primary Care Provider [phone] KARLI DOUGHERTY Attending Unavailable PRIYANKA PUENTES Primary Care Unavailable KARLI DOUGHERTY Attending Unavailable KARLI DOUGHERTY Referring Unavailable PRIYANKA PUENTES Primary Care Unavailable Priynaka Puentes MD Unavailable Priyanka Puentes MD Primary Care Provider PRIYANKA PUENTES Attending Unavailable PRIYANKA PUENTES Attending Unavailable PRIYANKA PUENTES Attending Unavailable PRIYANKA PUENTES Attending Unavailable PRIYANKA PUENTES Attending Unavailable PRIYANKA PUENTES Attending Unavailable Priyanka Puentes MD Unavailable Priyanka Puentes MD Primary Care Provider Allergies Allergy Classification Reported Allergen(s) Allergy Type Date of Onset Reaction(s) Facility (1 source) diphenhydrAMINE Drug Allergy anaphylaxis [facility] Other (7 sources) Ticagrelor; Translations: [Brilinta TABS] Drug Allergy 03-17-20 23 [facility] (4 sources) Codeine; Translations: [CODEINE] Drug Allergy 01-18-20 23 [place] [facility] (1 source) Penicillin Drug Allergy 01-19-20 22 [facility] (2 sources) Ticagrelor; Translations: [TICAGRELOR] Drug Allergy 01-25-20 22 [facility] (1 source) Antihistamines - Ethanolamine Drug allergy (disorder) 01-27-20 [facility] (2 sources) Antihistamines Allergy to substance 03-12-20 [facility] (8 sources) Calcium Citrate Drug Allergy 01-18-20 [facility] (8 sources) Cephalexin Drug Allergy 01-18-20 23 Hives [facility] (8 sources) Ciprofloxacin Drug Allergy 01-18-20 23 [facility] (11 sources) Clindamycin; Translations: [CLINDAMYCIN] Drug Allergy 01-18-20 23 Diarrhea [facility] (10 sources) Codeine Drug Allergy 01-18-20 23 Unknown [facility] (8 sources) diphenhydrAMINE Drug Allergy 01-18-20 [facility] (9 sources) Minocycline; Translations: [MINOCYCLINE] Drug Allergy 01-18-20 Diarrhea [facility] (8 sources) Erythromycin Base Drug Allergy 01-18-20 Hives [facility] (2 sources) Minocycline Drug Allergy 01-18-20 23 Diarrhea [facility] Work Phone: Medications Current Medications Medication Drug Class(es) Dates Sig (Normalized) Sig (Original) albuterol 0.83 mg/ml inhalation solution (20 sources) beta2-Adrenergic Agonist Start: 07-05-2023 End: 07-04-2024 albuterol (2.5 MG/3ML) 0.083% nebulizer solution Indications: 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) , Hx of wheezing Take 3 mL (2.5 mg) by nebulization every 6 (six) hours if needed for wheezing 75 mL 11 07/05/2023 Active Start: 07-05-2023 End: 08-04-2023 take 2 [...] DO Active amLODIPine 5 mg oral tablet (11 sources) Dihydropyridine Calcium Channel Sarbjit Start: 01-30-2024 [...] B Complex Vitamins (vitamin B complex) tablet (7 sources) take 1 tablet by mouth once [...] 30 Refills: 11 Ordered: 15-Feb-2022 Lester Persaud [employer] DEPUTY DIRECTOR-PRIOR AUTHORIZATION NURSEKhanh Start : 15-Feb-2022 Active CRANBERRY CONCENTRATE PO (7 sources) take 1 tablet by mouth once daily CRANBERRY CONCENTRATE PO Take 1 tablet by mouth Daily Active cranberry preparation 500 mg oral capsule (1 source) Non-Standardized Food Allergenic Extract, Non-Standardized Plant Allergenic Extract take 1 capsule by mouth in the morning cranberry 500 mg capsule Take 1 capsule by mouth early in the morning.. Active gabapentin 100 mg oral capsule (4 sources) Anti-epileptic Agent Start: 05-20-20 End: 07-12-19 25 gabapentin (Neurontin) 100 MG capsule Indications: Acute right-sided low back pain with right-sided sciatica Titrate from 1 to 4 capsules three times daily as needed for pain 100 capsule 06/11/2024 07/12/2024 Active levothyroxine sodium 0.112 mg oral tablet (10 sources) l-Thyroxine Start: 08-08-19 End: 11-06-19 24 take 1 tablet by mouth before mealtime [...] Active magnesium oxide 400 mg oral tablet (13 sources) Start: 03-07-2023 End: 08-31-2023 take 400 [...] Active naproxen sodium 220 mg oral tablet (8 sources) Nonsteroidal Anti-inflammatory Drug take 1 tablet by mouth twice daily as needed naproxen sodium (Aleve) 220 MG tablet Take 220 mg by mouth 2 (two) times a day as needed. Active Nebulizers (Compressor Nebulizer) [facility] (7 sources) Start: 07-05-2023 End: 07-04-2024 Nebulizers (Compressor Nebulizer) 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 1 each 07/05/2023 07/04/2024 Active Start: 07-05-2023 End: 07-04-2024 Nebulizers (Compressor Nebul izer) [facility] Indications: Asthma due to [...] tablet (20 sources) Cholinergic Muscarinic Antagonist Start: 07-10-2024 End: 10-08-2024 take 1 tablet by mouth in the morning oxybutynin (Ditropan) 5 MG tablet Indications: Urge incontinence Take 1 tablet (5 mg) by mouth in the morning and 1 tablet (5 mg) before bedtime. 180 tablet 1 07/10/2024 10/08/2024 Active Start: 01-14-2024 take 1 tablet by angel th in the morning oxybutynin (Ditropan) 5 MG [...] chloride 20 meq extended release oral tablet (9 sources) take 1 tablet by angel th [...] completed) potassium citrate 99 mg oral tablet (8 sources) take 1 capsule by mouth in the morning Potassium Citrate,Elemental K, 99 MG capsule Take 1 Capful by mouth in the morning. Active predniSONE 10 mg oral tablet (6 sources) Start: 05-14-2024 predniSONE (Deltasone) 10 MG tablet Indications: Acute right-sided low back pain with right-sided sciatica , Right hip pain , Pain of right sacroiliac joint Every 2 day tapering dose; 5,5,4,4,3,3,2,2,1,1,0.5,0.5 31 tablet 05/14/2024 Active Thyroid (Pork) (Funeral Pre Need Consultant Thyroid) 60 mg tablet (4 sources) Start: 01-18-2022 take 1 tablet by mouth twice daily Thyroid (Pork) (Funeral Pre Need Consultant Thyroid) 60 mg tablet Active 60 MG PO Twice daily January 18, 2022 12:00am thyroid (prison) 60 mg oral tablet (11 sources) Start: 01-18-2022 take 1 tablet by mouth twice daily Thyroid (Pork) (Funeral Pre Need Consultant Thyroid) 60 mg tablet Active 60 MG PO Twice daily January 18, 2022 12:00am End: 08-31-2023 take 1 tablet by mouth once daily before mealtime thyroid, pork, (BATTERY ENGINEER Thyroid) 60 mg tablet Take 1 tablet [...] Date Documented Date Episodic/Chronic Acute myocardial infarction (18 sources) Myocardial infarction; Translations: [Non-ST elevation (NSTEMI) myocardial infarction] Onset: 01-20-2022 01-18-2022 Chronic Aortic; peripheral; and visceral artery aneurysms (8 sources) Aneurysm of infrarenal abdominal aorta ; Translations: [Infrarenal abdominal aortic aneurysm, without rupture] Onset: 01-17-2023 01-17-2023 Chronic Asthma (8 sources) Allergic asthma; Translations: [Unspecified asthma, uncomplicated] Onset: 01-17-2023 01-17-2023 Chronic Cataract (16 sources) Bilateral pseudophakia; Translations: [Presence of intraocular lens] Onset: 01-17-2023 01-17-2023 Chronic Chronic kidney disease (16 sources) Chronic kidney disease, stage 2 (mild); Translations: [Chronic kidney disease stage 2] Onset: 08-16-2022 Resolved: 08-09-2023 01-17-2023 Chronic Chronic obstructive pulmonary disease and bronchiectasis (15 sources) Simple chronic bronchitis; Translations: [Simple chronic bronchitis] Onset: 01-17-2023 01-17-2023 Chronic Conditions associated with dizziness or vertigo (9 sources) Dizziness; Translations: [Dizziness and giddiness] Onset: 03-05-2023 03-05-2023 Episodic Coronary atherosclerosis and other heart disease (20 sources) Coronary arteriosclerosis; Translations: [Atherosclerotic heart disease of resighini coronary artery without angina pectoris] Onset: 06-14-2022 [...] hyperlipidemia] Onset: 08-16-2022 01-17-2023 Chronic Esophageal disorders (8 sources) Gastroesophageal reflux disease without esophagitis; Translations: [Gastro-esophageal reflux disease without esophagitis] Onset: 01-17-2023 01-17-2023 Chronic Essential hypertension (20 sources) Hypertensive disorder; Translations: [Essential (primary) hypertension] Onset: 01-20-2022 11-11-2019 Chronic Fluid and electrolyte disorders (10 sources) Hypo-osmolality and hyponatremia; Translations: [Acute hyponatremia] Onset: 02-02-2022 03-05-2023 Episodic Genitourinary symptoms and ill-defined conditions (8 sources) Urge incontinence of urine; Translations: [Urge incontinence] Onset: 01-17-2023 01-17-2023 Chronic Hypertension with complications and secondary hypertension (17 sources) Hypertensive chronic kidney disease with stage 1 through stage 4 chronic kidney disease, or unspecified chronic kidney disease; Translations: [Hypertensive urgency ] Onset: 08-15-2022 Chronic Malaise and fatigue (13 sources) Chronic fatigue, unspecified; Translations: [Fatigue] Onset: 04-12-2022 Chronic Nutritional deficiencies (8 sources) Vitamin D deficiency; Translations: [Vitamin D deficiency, unspecified] Onset: 01-17-2023 01-17-2023 Chronic Osteoarthritis (16 sources) Arthritis of left knee; Translations: [Unilateral primary osteoarthritis, left knee] Onset: 07-12-2016 01-17-2023 Chronic Other and ill-defined heart disease (8 sources) Diastolic dysfunction; Translations: [Other ill-defined heart diseases] Onset: 01-17-2023 01-17-2023 Chronic Other circulatory disease (8 sources) History of endovascular stent graft for repair of abdominal aortic aneurysm; Translations: [Presence of other vascular implants and grafts] Onset: 01-17-2023 01-17-2023 Chronic Other circulatory disease (8 sources) History of insertion of iliac stent; Translations: [Presence of other vascular implants and grafts] Onset: 01-17-2023 01-17-2023 Chronic Other circulatory disease (1 source) Orthostatic hypotension; Translations: [Orthostatic hypotension] Onset: 03-05-2023 Episodic Other ear and sense organ disorders (1 source) Disorder of external ear; Translations: [Unspecified otitis externa, left ear] Onset: 01-17-2023 01-17-2023 Chronic Other lower respiratory disease (8 sources) Pulmonary granuloma; Translations: [Pulmonary fibrosis, unspecified] Onset: 01-17-2023 01-17-2023 Chronic Other lower respiratory disease (8 sources) Post-inflammatory pulmonary fibrosis; Translations: [Pulmonary fibrosis, unspecified] Onset: 03-26-2016 01-19-2023 Chronic Other lower respiratory disease (2 sources) Dyspnea on exertion; Translations: [Other forms of dyspnea] 08-31-2023 Episodic Other nervous system disorders (8 sources) Chronic pain; Translations: [Other chronic pain] Onset: 01-17-2023 01-17-2023 Chronic Other non-traumatic joint disorders (2 sources) Hip pain; Translations: [Pain in right hip] 05-14-2024 Episodic Other nutritional; endocrine; and metabolic disorders (4 sources) Obesity; Translations: [Obesity, unspecified] Chronic Other nutritional; endocrine; and metabolic disorders (8 sources) Obese class I; Translations: [Obesity, unspecified] [...] Onset: 01-20-2022 01-19-2022 Chronic Pulmonary heart disease (8 sources) Pulmonary hypertension; Translations: [Pulmonary hypertension, unspecified] Onset: 01-17-2023 01-17-2023 Chronic Retinal detachments; defects; vascular occlusion; and retinopathy (16 sources) Epiretinal membrane of right eye; Translations: [...] Da te Episodic/Chronic Blindness and vision defects (8 sources) Presbyopia; Translations: [Presbyopia] Onset: 01-17-2023 01-17-2023 Episodic Coronary atherosclerosis and other heart disease (20 sources) Patient post percutaneous transluminal coronary angioplasty; Translations: [Percutaneous transluminal coronary angioplasty status] Onset: 01-17-2023 01-17-2023 Episodic Diabetes mellitus without complication (20 sources) Prediabetes; Translations: [Prediabetes] Onset: 08-16-2022 01-18-2022 Episodic Heart valve disorders (8 sources) Heart murmur; Translations: [Cardiac murmur, unspecified] Onset: 01-17-2023 01-17-2023 Episodic Mood disorders (9 sources) Mood disorders Onset: 02-15-2022 Resolved: 08-30-2023 07-25-2022 Noninfectious gastroenteritis (1 source) Noninfective gastroenteritis and colitis, unspecified; Translations: [NONINFECTIVE GE AND COLITIS UNS] Onset: 02-02-2022 Episodic Nonspecific chest pain (3 sources) Chest pain, unspecified; Translations: [CHEST PAIN UNSPECIFIED] Onset: 01-18-2022 Episodic Other aftercare (1 source) Other credit collector (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; Translations: [OTH SHELTER CURRENT DRUG THERAPY] Onset: 02-02-2022 Episodic Other aftercare (1 source) epic willow analyst (current) use of oral hypoglycemic drugs; Translations: [SPEECH CORRECTION CONSULTANT USE ORAL HYPOGLYCEMIC DX] Onset: 02-02-2022 Episodic Other aftercare (1 source) [facility] (current) use of aspirin; Translations: [SHELTER CURRENT USE OF ASPIRIN] Onset: 01-20-2022 Episodic Other aftercare (8 sources) Polypharmacy ; Translations: [Other credit collector (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] Onset: 08-07-2020 01-19-2023 Episodic Other bone disease and musculoskeletal deformities (8 sources) Osteopenia; Translations: [Other specified disorders of bone density and structure, unspecified site] Onset: 01-17-2023 01-17-2023 Episodic Other circulatory disease (1 source) Hypotension, unspecified; Translations: [HYPOTENSION UNSPECIFIED] Onset: 02-02-2022 Episodic Other circulatory disease (10 sources) Orthostatic hypotension; Translations: [Orthostatic hypotension] Onset: 01-10-2024 03-07-2023 Episodic Other circulatory disease (8 sources) H/O: cardiovascular disease; Translations: [Personal history of other diseases of the circulatory system] Onset: 04-25-2016 01-19-2023 Episodic Other connective tissue disease (8 sources) Abnormal posture; Translations: [Abnormal posture] Onset: 01-17-2023 Resolved: 08-07-2023 01-17-2023 Episodic Other connective tissue disease (8 sources) Left rotator cuff syndrome; Translations: [Unspecified rotator cuff tear or rupture of left shoulder, not specified as traumatic] Onset: 01-17-2023 01-17-2023 Episodic Other ear and sense organ disorders (7 sources) Disorder of left external ear; Translations: [Unspecified otitis externa, left ear] Onset: 01-17-2023 Resolved: 08-07-2023 08-07-2023 Chronic Other eye disorders (8 sources) Disorder of lacrimal system; Translations: [Disorder [...] 03-17-2023 Episodic Other non-epithelial cancer of skin (8 sources) Basal cell carcinoma of ear; 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] Onset: 01-17-2023 01-17-2023 Episodic Other nutritional; endocrine; and metabolic disorders (8 sources) Morbid obesity; Translations: [Morbid (severe) obesity due to excess calories] Onset: 04-25-2016 Resolved: 05-02-2023 05-02-2023 Chronic Other nutritional; endocrine; and metabolic disorders (2 sources) Body mass index (BMI) 27.0-27.9, adult; Translations: [Body mass index (BMI) 27.0-27.9, adult] Onset: 08-31-2023 Episodic Other skin disorders (8 sources) Keloid scar; Translations: [Hypertrophic scar] Onset: 01-17-2023 Resolved: 08-07-2023 01-17-2023 Episodic Residual codes; unclassified (1 source) Other specified postprocedural states; Translations: [OTH SPECIFIED POSTPROCEDURAL STATES] Onset: 02-02-2022 Episodic Screening and history of mental health and substance abuse codes (20 sources) Ex-smoker; Translations: [Personal history of tobacco use] Onset: 03-25-2016 01-19-2023 Episodic Comment on above: nicotine lozenges; Thyroid disorders (13 sources) Sick-euthyroid syndrome; Translations: [Sick-euthyroid syndrome] Onset: 04-15-2022 Resolved: 05-08-2023 Episodic Unclassified (2 sources) Onset: 08-31-2023 Resolved: 05-08-2024 08-31-2023 Viral infection (1 source) Zoster without complications Onset: 01-01-2022 Resolved: 01-01-2022 Episodic Results Test Name Value Interpretation Reference Range Facility CT Lumbar spine WO contrasto n 07-11-2024 [place] [address] CT Scan Report Signed Patient: STEVEN HARDING MR#: [id number] : 1940 Acct:[id number] Age/Sex: 84 / F ADM Date: 07/10/24 Loc: CT Attending Dr: Priya JUAREZ Ordering Physician: Priya Patel Date of Service: 07/10/24 Procedure(s): CT lumbar spine wo con Accession Number(s): [id number] cc: PRIYANKA PUENTES [place] [address] Patient Name: STEVEN HARDING MRN: [id number] date: 1940 Sex: F Assigned Patient Location: CT Current Patient Location: Accession/Order Number: [id number] Exam Date: 07/10/2024 13:48 Report Date: 07/11/2024 13:40 At the request of: PRIYA PATEL Procedure: CT lumbar spine wo con EXAM: CT lumbar spine wo con CLINICAL INDICATION: Degenerative Disc Disease, Lumbar Radiculopathy COMPARISON: CT abdomen/pelvis 01/27/2022. Lumbar spine radiographs 05/21/2024. TECHNIQUE: Multiple axial images were obtained of the lumbar spine. Soft tissue and bone windows in coronal and sagittal planes were obtained and reviewed. Dose reduction techniques were achieved by using automated exposure control and/or adjustment of mA and/or kV according to patient size and/or use of iterative reconstruction technique. FINDINGS: Osseous Mineralization: Diffuse osseous demineralization limits evaluation of fine osseous detail. Trauma: No definite fracture, traumatic malalignment, facet dislocation, or discrete epidural hemorrhage. Alignment: Normal. Vertebral Body Heights: Maintained. Soft Tissues: Normal. Spondylotic Changes: Multilevel spondylotic changes include varying degrees of intervertebral disc height loss, endplate sclerosis, osteophytic ridging, and facet/ligamentum flavum hypertrophy. Slight disc bulges L2-L3, L3-L4, and L4-L5. Spinal canal narrowing is whdj-ve-kiwtemwy at these levels, also contributed to by facet/ligamentum flavum hypertrophy. No high-grade foraminal narrowing at any lumbar level. Other: Scattered vascular calcifications. Infrarenal abdominal aortic aneurysm measures approximately 3.2 x 2.6 cm. This has mildly increased in size since 01/27/2022. CT/CT lumbar spine wo con IMPRESSION: 1. No definite acute osseous abnormalities in the lumbar spine given osseous demineralization. 2. Multilevel lumbar spondylotic changes with zckv-by-ixupgoit spinal canal narrowing at L2-L3, L3-L4, and L4-L5. 3. Infrarenal abdominal aortic aneurysm measures approximately 3.2 x 2.6 cm. This has mildly increased in size since 01/27/2022. Electronically authenticated by: YAO WATSON Date: 07/11/2024 13:40 Dictated By: Yao Watson M.D. Signed By: 07/11/24 1342 DD/ 1340 TD/TT: Marker Assembler: [facility] RadiologyPaulina MD - 07/11/2024 [place] [address] CT Scan Report Signed Patient: STEVEN HARDING MR#: [id number] : 1940 Acct:[id number] Age/Sex: 84 / F ADM Date: 07/10/24 Loc: CT Attending Dr: Priya JUAREZ Ordering Physician: Priya Patel Date of Service: 07/10/24 Procedure(s): CT lumbar spine wo con Accession Number(s): [id number] cc: PRIYANKA PUENTES [place] [address] Patient Name: STEVEN HARDING MRN: [facility]:[id number] date: 1940 Sex: F Assigned Patient Location: CT Current Patient Location: Accession/Order Number: [id number] Exam Date: 07/10/2024 13:48 Report Date: 07/11/2024 13:40 At the request of: PRIYA PATEL Procedure: CT lumbar spine wo con EXAM: CT lumbar spine wo con CLINICAL INDICATION: Degenerative Disc Disease, Lumbar Radiculopathy COMPARISON: CT abdomen/pelvis 01/27/2022. Lumbar spine radiographs 05/21/2024. TECHNIQUE: Multiple axial images were obtained of the lumbar spine. Soft tissue and bone windows in coronal and sagittal planes were obtained and reviewed. Dose reduction techniques were achieved by using automated exposure control and/or adjustment of mA and/or kV according to patient size and/or use of iterative reconstruction technique. FINDINGS: Osseous Mineralization: Diffuse osseous demineralization limits evaluation of fine osseous detail. Trauma: No definite fracture, traumatic malalignment, facet dislocation, or discrete epidural hemorrhage. Alignment: Normal. Vertebral Body Heights: Maintained. Soft Tissues: Normal. Spondylotic Changes: Multilevel spondylotic changes include varying degrees of intervertebral disc height loss, endplate sclerosis, osteophytic ridging, and facet/ligamentum flavum hypertrophy. Slight disc bulges L2-L3, L3-L4, and L4-L5. Spinal canal narrowing is duif-qy-mlagkehf at these levels, also contributed to by facet/ligamentum flavum hypertrophy. No high-grade foraminal narrowing at any lumbar level. Other: Scattered vascular calcifications. Infrarenal abdominal aortic aneurysm measures approximately 3.2 x 2.6 cm. This has mildly increased in size since 01/27/2022. CT/CT lumbar spine wo con IMPRESSION: 1. No definite acute osseous abnormalities in the lumbar spine given osseous demineralization. 2. Multilevel lumbar spondylotic changes with vvji-pa-rzyawrgl spinal canal narrowing at L2-L3, L3-L4, and L4-L5. 3. Infrarenal abdominal aortic aneurysm measures approximately 3.2 x 2.6 cm. This has mildly increased in size since 01/27/2022. Electronically authenticated by: YAO WATSON Date: 07/11/2024 13:40 Dictated By: Yao Watson M.D. Signed By: 07/11/24 1342 DD/ 1340 TD/TT: Marker Assembler: [facility] Radiology Study observation (narrative) [facility] CT Lumbar spine WO contrastO rdered By: Radiologist Radiology on 07-11-2024 [facility] Work Phone: ALL LIPID PROFILE (FASTING)o n 05-17-2024 CHOL HDL RATIO 1.8 [facility] Comment on above: 3.3 - 4.4 LOW RISK 4.4 - 7.1 AVERAGE RISK 7.1 - 11.0 MODERATE RISK >11.0 HIGH RISK Cholesterol [Mass/Vol] 144 mg/dL NINF - 200 mg/dL [facility] Cholesterol in HDL [Mass/Vol] 80 mg/dL High 40 - 60 mg/dL [facility] Comment on above: > or =60 mg/dl - LOW CARDIOVASCULAR RISK <40 mg/dl - HIGH CARDIOVASCULAR RISK Magnesium [Mass/Vol] 52 mg/dL [facility] Comment on above: <100 mg/dl OPTIMAL 100-129 mg/dl NEAR OR ABOVE OPTIMAL 130-159 mg/dl BORDERLINE HIGH 160-189 mg/dl HIGH >190 mg/dl VERY HIGH Magnesium [Mass/Vol] 12.2 mg/dL [facility] Triglyceride [Mass/Vol] 61 mg/dL NINF - 150 mg/dL [facility] CMP (CMP) (FOR REMOTE FH C USE)on 05-17-2024 Albumin [Mass/Vol] 4 g/dL 3.4 - 5.0 g/dL [facility] ALBUMIN GLOBULIN RATIO 1.3 NO [facility] ALP [Catalytic activity/Vol] 48 U/L 46 - 116 U/L [facility] ALT [Catalytic activity/Vol] 24 U/L 14 - 59 U/L [facility] Anion gap [Moles/Vol] 13.4 mmol/L NO [facility] [facility] AST [Catalytic activity/Vol] 13 U/L Low 15 - 37 U/L [facility] Bilirubin [Mass/Vol] 0.6 mg/dL 0.2 - 1 .0 mg/dL [facility] Calcium [Mass/Vol] 9.1 mg/dL 8.5 - 10. 1 mg/dL [facility] Chloride [Moles/Vol] 97 mmol/L Low 98 - 10 7 mmol/L [facility] CO2 [Moles/Vol] 28.9 mmol/L 21.0 - 32.0 mmol/L [facility] Creatinine [Mass/Vol] 1.12 mg/dL High 0.55 - 1.02 mg/dL [facility] GFR/1.73 sq M.predicted CKD-EPI (S/P/Bld) [Vol rate/Area] 56 Low >=60 mL/min/1.7 3m 2 [facility] Globulin (S) [Mass/Vol] 3.2 g/dL [facility] Glucose [Mass/Vol] 102 mg/dL 74 - 106 mg/dL [facility] Potassium [Moles/Vol] 4.3 mmol/L 3.5 - 5.1 mmol/L [facility] Protein [Mass/Vol] 7.2 g/dL 6.4 - 8.2 g/dL [facility] Sodium [Moles/Vol] 135 mmol/L Low 136 - 145 mmol/L [facility] TBH EGFR-NON AF [place] 47 Low >=60 mL/min/1.7 3m 2 [facility] Urea nitrogen [Mass/Vol] 22 mg/dL High 7.0 - 18.0 mg/dL [facility] Urea nitrogen/Creatinine [Mass ratio] 19.6 mg/mg [facility] No Panel Informationon 05-17 Interpretation and review of laboratory results Abnormal [facility] MLR HEMOGLOBIN A1Con 024 Glucose [Mass/Vol] 111 mg/dL [facility] HbA1c (Bld) [Mass fraction] 5.5 % 4.5 - 6.2 % [facility] Comment on above: ADA RECOMMENDED LIMI T 4.0 - 6.0 ADA THERAPEUTIC TARGET < 7.0 ACTION SUGGESTED > 7.0 [facility] Basic Metabolic Panelon 100 Anion gap [Moles/Vol] 9.8 mmol/L Normal 6.0-15.0 [facility] Comment on above: Performed By: #### B BATTERY ENGINEER, BMP, PT, PTT, HS TROP, CBC, TSH3, CK #### [facility] [address] [place] [address] [place] Calcium [Mass/Vol] 8.3 mg/dL Low 8.6-10.3 [facility] Comment on above: Performed By: #### B BATTERY ENGINEER, BMP, PT, PTT, HS TROP, CBC, TSH3, CK #### [facility] [address] [place] [id number] [place] Chloride [Moles/Vol] 101 mmol/L Normal 98-107 [facility] Comment on above: Performed By: #### B BATTERY ENGINEER, BMP, PT, PTT, HS TROP, CBC, TSH3, CK #### [facility] [address] CO2 [Moles/Vol] 23.6 mmol/L Normal 21.0-31.[address] [facility] Comment on above: Performed By: #### B BATTERY ENGINEER, BMP, PT, PTT, HS TROP, CBC, TSH3, CK #### [facility] [address] Creatinine [Mass/Vol] 0.70 mg/dL Normal 0.60-1.20 [facility] Comment on above: Performed By: #### B BATTERY ENGINEER, BMP, PT, PTT, HS TROP, CBC, TSH3, CK #### [facility] [address] Creatinine Clr Calc Pharmacy 48.88 [facility] Comment on above: Performed By: #### B BATTERY ENGINEER, BMP, PT, PTT, HS TROP, CBC, TSH3, CK #### [facility] [address] GFR/1.73 sq M.predicted MDRD (S/P/Bld) [Vol rate/Area] mL/min/{1.73_m2} [facility] Comment on above: Performed By: #### B BATTERY ENGINEER, BMP, PT, PTT, HS TROP, CBC, TSH3, CK #### [facility] [address] Glucose [Mass/Vol] 84 mg/dL Normal 70-100 [facility] Comment on above: Result Comment: [place] Glucose Reference Range is dependent on time and content of last meal. Glucose of more than 200 mg/dL in a nonstressed, ambulatory subject supports the diagnosis of Diabetes Mellitus. ADA recommended reference range Performed By: #### B BATTERY ENGINEER, BMP, PT, PTT, HS TROP, CBC, TSH3, CK #### [facility] [address] Potassium [Moles/Vol] 4.4 mmol/L Normal 3.5-5.1 [facility] Comment on above: Performed By: #### B BATTERY ENGINEER, BMP, PT, PTT, HS TROP, CBC, TSH3, CK #### [facility] [address] Sodium [Moles/Vol] 130 mmol/L Low 136-145 [facility] Comment on above: Performed By: #### B BATTERY ENGINEER, BMP, PT, PTT, HS TROP, CBC, TSH3, CK #### [facility] [address] Urea nitrogen [Mass/Vol] 8 mg/dL Normal 7-25 [facility] Comment on above: Performed By: #### B BATTERY ENGINEER, BMP, PT, PTT, HS TROP, CBC, TSH3, CK #### [facility] [address] Calcium [Mass/volume] in Ser um or PlasmaOrdered By: Rufus Ricks on 03-14-2023 Calcium [Mass/Vol] 8.3 mg/dL 8.6-10.3 [facility] Carbon dioxide, total [Moles /volume] in Serum or PlasmaOrdered By: Rufus Ricks on 03-14-2023 CO2 [Moles/Vol] 23.6 mmol/L 21.0-31.[address] [facility] Chloride [Moles/volume] in S yamilex or PlasmaOrdered By: Rufus Ricks on 03-14-2023 Chloride [Moles/Vol] 101 mmol/L 98-107 [facility] Creatinine [Mass/volume] in Serum or PlasmaOrdered By: Rufus Ricks on 03-14-2023 Creatinine [Mass/Vol] 0.70 mg/dL 0.60-1.20 [facility] Free T4 (Free Thyroxine)on Free T4 [Mass/Vol] 0.72 ng/dL Normal 0.61-1.12 [facility] Comment on above: Performed By: #### B BATTERY ENGINEER, BMP, PT, PTT, HS TROP, CBC, TSH3, CK #### [facility] [address] Glucose [Mass/volume] in Ser um or PlasmaOrdered By: Rufus ClemensRicks on 03-14-2023 Glucose [Mass/Vol] 84 mg/dL 70-100 [facility] Comment on above: ADA recommended refe rence rangeRandom Glucose Reference Range is dependent on time and content of last meal. Glucose of more than 200 mg/dL in a nonstressed, ambulatory subject supports the diagnosis of Diabetes Mellitus. No Panel InformationOrdered By: Rufus ClemensRicks on 03-14-2023 Estimated GFR (CKD-EPI) > 60.0 mL/Min [facility] Creatinine Clearance (Chem 48.88 [facility] Potassium [Moles/volume] in Serum or PlasmaOrdered By: Rufus Redstone on 03-14-2023 Potassium [Moles/Vol] 4.4 mmol/L 3.5-5.1 [facility] Serum or plasma anion gap de terminationOrdered By: Rufus Redstone on 03-14-2023 Anion gap [Moles/Vol] 9.8 mmol/L 6.0-15.0 [facility] Sodium [Moles/volume] in Ser um or PlasmaOrdered By: [facility] on 03-14-2023 Sodium [Moles/Vol] 130 mmol/L 136-145 [facility] Thyroid Stimulating Hormoneo n 03-14-2023 TSH Qn 0.04 m[IU]/L Low 0.45-5.33 [facility] Comment on above: Result Comment: PERF ORMED BY: [facility] [address] [place] [address] PATHOLOGIST CUTTER GRINDER OPERATOR RAQUEL LOPEZ M.D. Performed By: #### B BATTERY ENGINEER, BMP, PT, PTT, HS TROP, CBC, TSH3, CK #### [facility] [address] Thyrotropin [Units/volume] i n Serum or PlasmaOrdered By: Rufus Ricks on 03-14-2023 TSH Qn 0.04 m[IU]/L 0.45-5.33 [facility] Thyroxine (T4) free [Mass/vo lume] in Serum or PlasmaOrdered By: Rufus Ricks on 03-14-2023 Free T4 [Mass/Vol] 0.72 ng/dL 0.61-1.12 [facility] Triiodothyronine (T3) Freeon 03-14-2023 Triiodothyronine (T3) Free 2.85 pg/mL Normal 2.50-3.90 [facility] Comment on above: Result Comment: PERF ORMED BY: [place] [address] PATHOLOGIST CUTTER GRINDER OPERATOR RAQUEL LOPEZ M.D. Performed By: #### B BATTERY ENGINEER, BMP, PT, PTT, HS TROP, CBC, TSH3, CK #### [facility] [address] [place] [address] Triiodothyronine (T3) Free [ Mass/volume] in Serum or PlasmaOrdered By: Rufus Ricks on 03-14-2023 Free T3 [Mass/Vol] 2.85 pg/mL 2.50-3.90 [facility] Urea nitrogen [Mass/volume] in Serum or PlasmaOrdered By: uRfus Ricks on 03-14-2023 Urea nitrogen [Mass/Vol] 8 mg/dL 7 [facility] Basic Metabolic Panelon Anion gap [Moles/Vol] 13.4 mmol/L Normal 6.0-15.0 [facility] Comment on above: Performed By: #### B BATTERY ENGINEER, BMP, PT, PTT, HS TROP, CBC, TSH3, CK #### [facility] [address] [place] [address] Calcium [Mass/Vol] 9.1 mg/dL Normal 8.6-10.3 [facility] Comment on above: Performed By: #### B BATTERY ENGINEER, BMP, PT, PTT, HS TROP, CBC, TSH3, CK #### [facility] [address] [place] [address] Chloride [Moles/Vol] 93 mmol/L Low 98-107 [facility] Comment on above: Performed By: #### B BATTERY ENGINEER, BMP, PT, PTT, HS TROP, CBC, TSH3, CK #### [facility] [address] CO2 [Moles/Vol] 25.0 mmol/L Normal 21.0-31.[address] [facility] Comment on above: Performed By: #### B BATTERY ENGINEER, BMP, PT, PTT, HS TROP, CBC, TSH3, CK #### [facility] [address] Creatinine [Mass/Vol] 0.88 mg/dL Normal 0.60-1.20 [facility] Comment on above: Performed By: #### B BATTERY ENGINEER, BMP, PT, PTT, HS TROP, CBC, TSH3, CK #### [facility] [address] Creatinine Clr Calc Pharmacy 44.44 [facility] Comment on above: Result Comment: PERF ORMED BY: [place] [address] PATHOLOGIST CUTTER GRINDER OPERATOR RAQUEL LOPEZ M.D. Performed By: #### B BATTERY ENGINEER, BMP, PT, PTT, HS TROP, CBC, TSH3, CK #### [address] GFR/1.73 sq M.predicted MDRD (S/P/Bld) [Vol rate/Area] mL/min/{1.73_m2} [facility] Comment on above: Performed By: #### B BATTERY ENGINEER, BMP, PT, PTT, HS TROP, CBC, TSH3, CK #### [address] Glucose [Mass/Vol] 97 mg/dL Normal 70-100 [facility] Comment on above: Result Comment: [place] Glucose Reference Range is dependent on time and content of last meal. Glucose of more than 200 mg/dL in a nonstressed, ambulatory subject supports the diagnosis of Diabetes Mellitus. ADA recommended reference range Performed By: #### B BATTERY ENGINEER, BMP, PT, PTT, HS TROP, CBC, TSH3, CK #### [facility] [address] Potassium [Moles/Vol] 4.4 mmol/L Normal 3.5-5.1 [facility] Comment on above: Performed By: #### B BATTERY ENGINEER, BMP, PT, PTT, HS TROP, CBC, TSH3, CK #### [facility] [address] Sodium [Moles/Vol] 127 mmol/L Low 136-145 [facility] Comment on above: Performed By: #### B BATTERY ENGINEER, BMP, PT, PTT, HS TROP, CBC, TSH3, CK #### [facility] [address] Urea nitrogen [Mass/Vol] 9 mg/dL Normal 7-25 [facility] Comment on above: Performed By: #### B BATTERY ENGINEER, BMP, PT, PTT, HS TROP, CBC, TSH3, CK #### [facility] [address] Activated partial thrombopla stin time (aPTT) in platelet poor plasma by coagulation aOrdered By: Hunter Dhillon on 03-12-2023 aPTT Coag (PPP) [Time] 26.1 s 25.1-36.5 [facility] Comment on above: A hematocrit value g reater than 55% may lead to inaccurate results in coagulation testing. Patients having hematocrit values >55% require a special collection tube for coagulation studies. Please contact the laboratory at [phone] for redraw instructions. Alanine aminotransferase [En zymatic activity/volume] in Serum or PlasmaOrdered By: Hunter Dhillon on 03-12-2023 ALT [Catalytic activity/Vol] 14 U/L 7-52 [facility] Albumin [Mass/volume] in Ser um or Plasma by Bromocresol green (BCG) dye binding methoOrdered By: Hunter Dhillon on 03-12-2023 Albumin BCG dye [Mass/Vol] 4.1 g/dL 3.5-5.7 [facility] Alkaline phosphatase [Enzyma tic activity/volume] in Serum or PlasmaOrdered By: Hunter Dhillon on 03-12-2023 ALP [Catalytic activity/Vol] 40 U/L 34-104 [facility] Aspartate aminotransferase [ Enzymatic activity/volume] in Serum or PlasmaOrdered By: Hunter Dhillon on 03-12-2023 AST [Catalytic activity/Vol] 15 U/L 13-39 [facility] Automated erythrocytes count in urine sediment (number/area)Ordered By: Hunter Dhillon on 03-12-2023 RBC Auto (Urine sed) [#/Area] None seen [HPF] 0-4 [facility] Automated leukocytes count i n urine sediment (number/area)Ordered By: Hunter Dhillon on 03-12-2023 WBC Auto (Urine sed) [#/Area] 5-9 [HPF] 0-4 [facility] B-Type Natriuretic Peptideon 03-12-2023 Natriuretic peptide B (Bld) [Mass/Vol] 83.0 pg/mL Normal 5-100 [facility] Comment on above: Result Comment: PERF ORMED BY: [place] [address] PATHOLOGIST CUTTER GRINDER OPERATOR RAQUEL LOPEZ M.D. Performed By: #### B BATTERY ENGINEER, BMP, PT, PTT, HS TROP, CBC, TSH3, CK #### [address] Basic Metabolic Panelon 10-0 Anion gap [Moles/Vol] 13.3 mmol/L Normal 6.0-15.0 [facility] Comment on above: Performed By: #### B BATTERY ENGINEER, BMP, PT, PTT, HS TROP, CBC, TSH3, CK #### [place] [address] [place] Calcium [Mass/Vol] 9.2 mg/dL Normal 8.6-10.3 [facility] Comment on above: Performed By: #### B BATTERY ENGINEER, BMP, PT, PTT, HS TROP, CBC, TSH3, CK #### [facility] [address] [place] [address] [place] Chloride [Moles/Vol] 98 mmol/L Normal 98-107 [facility] Comment on above: Performed By: #### B BATTERY ENGINEER, BMP, PT, PTT, HS TROP, CBC, TSH3, CK #### [facility] [address] [place] [address] [place] CO2 [Moles/Vol] 21.2 mmol/L Normal 21.0-31.[address] [facility] Comment on above: Performed By: #### B BATTERY ENGINEER, BMP, PT, PTT, HS TROP, CBC, TSH3, CK #### [facility] [address] Creatinine [Mass/Vol] 0.92 mg/dL Normal 0.60-1.20 [facility] Comment on above: Performed By: #### B BATTERY ENGINEER, BMP, PT, PTT, HS TROP, CBC, TSH3, CK #### [facility] [address] Creatinine Clr Calc Pharmacy 41.99 [facility] Comment on above: Performed By: #### B BATTERY ENGINEER, BMP, PT, PTT, HS TROP, CBC, TSH3, CK #### [facility] [address] GFR/1.73 sq M.predicted MDRD (S/P/Bld) [Vol rate/Area] mL/min/{1.73_m2} [facility] Comment on above: Performed By: #### B BATTERY ENGINEER, BMP, PT, PTT, HS TROP, CBC, TSH3, CK #### [facility] [address] Glucose [Mass/Vol] 87 mg/dL Normal 70-100 [facility] Comment on above: Result Comment: [place] Glucose Reference Range is dependent on time and content of last meal. Glucose of more than 200 mg/dL in a nonstressed, ambulatory subject supports the diagnosis of Diabetes Mellitus. ADA recommended reference range Performed By: #### B BATTERY ENGINEER, BMP, PT, PTT, HS TROP, CBC, TSH3, CK #### [facility] [address] Potassium [Moles/Vol] 4.5 mmol/L Normal 3.5-5.1 [facility] Comment on above: Performed By: #### B BATTERY ENGINEER, BMP, PT, PTT, HS TROP, CBC, TSH3, CK #### [facility] [address] [place] [address] [place] Sodium [Moles/Vol] 128 mmol/L Low 136-145 [facility] Comment on above: Performed By: #### B BATTERY ENGINEER, BMP, PT, PTT, HS TROP, CBC, TSH3, CK #### [facility] [address] Urea nitrogen [Mass/Vol] 11 mg/dL Normal 7-25 [facility] Comment on above: Performed By: #### B BATTERY ENGINEER, BMP, PT, PTT, HS TROP, CBC, TSH3, CK #### [facility] [address] Basophils Auto (Bld) [#/Vol] Ordered By: Hunter Dhillon on 03-12-2023 Basophils (Bld) [#/Vol] 0.0 10*3/uL 0.0-0.2 [facility] Basophils/100 WBC Auto (Bld) Ordered By: Hunter Dhillon on 03-12-2023 Basophils/100 WBC (Bld) 0.4 % . [facility] Bilirubin Auto test strip Ql (U)Ordered By: Hunter Dhillon on 03-12-2023 Bilirubin Ql (U) Negative Negative [facility] Bilirubin.direct [Mass/volum e] in Serum or PlasmaOrdered By: Hunter Dhillon on 03-12-2023 Bilirubin.direct [Mass/Vol] 0.10 mg/dL 0.03-0.18 [facility] Bilirubin.total [Mass/volume ] in Serum or PlasmaOrdered By: Hunter Dhillon on 03-12-2023 Bilirubin [Mass/Vol] 0.4 mg/dL 0.3-1.0 [facility] Calcium [Mass/volume] in Ser um or PlasmaOrdered By: Hunter Dhillon on 03-12-2023 Calcium [Mass/Vol] 9.2 mg/dL 8.6-10.3 [facility] Carbon dioxide, total [Moles /volume] in Serum or PlasmaOrdered By: Hunter Dhillon on 03-12-2023 CO2 [Moles/Vol] 21.2 mmol/L 21.0-31.[address] [facility] Chloride [Moles/volume] in S yamilex or PlasmaOrdered By: Hunter Dhillon on 03-12-2023 Chloride [Moles/Vol] 98 mmol/L 98-107 [facility] Complete Blood Count Auto Di ffon 03-12-2023 Basophils (Bld) [#/Vol] 0.0 10*3/uL Normal 0.0-0.2 [facility] Comment on above: Result Comment: PERF ORMED BY: [place] [address] PATHOLOGIST CUTTER GRINDER OPERATOR RAQUEL LOPEZ M.D. Performed By: #### B BATTERY ENGINEER, BMP, PT, PTT, HS TROP, CBC, TSH3, CK #### [address] Basophils/100 WBC (Bld) 0.4 % Normal . [facility] Comment on above: Performed By: #### B BATTERY ENGINEER, BMP, PT, PTT, HS TROP, CBC, TSH3, CK #### [address] Eosinophils (Bld) [#/Vol] 0.2 10*3/uL Normal 0.0-0.45 [facility] Comment on above: Performed By: #### B BATTERY ENGINEER, BMP, PT, PTT, HS TROP, CBC, TSH3, CK #### [address] Eosinophils/100 WBC (Bld) 2.0 % Normal . [facility] Comment on above: Performed By: #### B BATTERY ENGINEER, BMP, PT, PTT, HS TROP, CBC, TSH3, CK #### [address] Erythrocyte distribution width (RBC) [Ratio] 12.6 % Normal 11.9-15.3 [facility] Comment on above: Performed By: #### B BATTERY ENGINEER, BMP, PT, PTT, HS TROP, CBC, TSH3, CK #### [address] Hematocrit (Bld) [Volume fraction] 35.5 % Normal 34.0-46.4 [facility] Comment on above: Performed By: #### B BATTERY ENGINEER, BMP, PT, PTT, HS TROP, CBC, TSH3, CK #### [address] Hemoglobin (Bld) [Mass/Vol] 12.4 g/dL Normal 11.8-15.4 [facility] Comment on above: Performed By: #### B BATTERY ENGINEER, BMP, PT, PTT, HS TROP, CBC, TSH3, CK #### [address] Lymphocytes (Bld) [#/Vol] 1.2 10*3/uL Normal 1.00-4.8 [facility] Comment on above: Performed By: #### B BATTERY ENGINEER, BMP, PT, PTT, HS TROP, CBC, TSH3, CK #### [address] Lymphocytes/100 WBC (Bld) 13.2 % Normal . [facility] Comment on above: Performed By: #### B BATTERY ENGINEER, BMP, PT, PTT, HS TROP, CBC, TSH3, CK #### [address] MCH (RBC) [Entitic mass] 31.9 pg Normal 24.7-34.3 [facility] Comment on above: Performed By: #### B BATTERY ENGINEER, BMP, PT, PTT, HS TROP, CBC, TSH3, CK #### [address] MCV (RBC) [Entitic vol] 91.8 fL Normal 80-100 [facility] Comment on above: Performed By: #### B BATTERY ENGINEER, BMP, PT, PTT, HS TROP, CBC, TSH3, CK #### [address] Mean Corpuscular HGB Conc 34.7 g/dL Normal 32.0-35.0 [facility] Comment on above: Performed By: #### B BATTERY ENGINEER, BMP, PT, PTT, HS TROP, CBC, TSH3, CK #### [address] Monocytes (Bld) [#/Vol] 0.5 10*3/uL Normal 0.0-0.8 [facility] Comment on above: Performed By: #### B BATTERY ENGINEER, BMP, PT, PTT, HS TROP, CBC, TSH3, CK #### [address] Monocytes/100 WBC (Bld) 17.50 % Normal 0.00-20.00 [facility] Comment on above: Performed By: #### B BATTERY ENGINEER, BMP, PT, PTT, HS TROP, CBC, TSH3, CK #### [address] Monocytes/100 WBC (Bld) 5.1 % Normal . [facility] Comment on above: Performed By: #### B BATTERY ENGINEER, BMP, PT, PTT, HS TROP, CBC, TSH3, CK #### [address] Neutrophils (Bld) [#/Vol] 7.0 10*3/uL Normal 1.8-7.7 [facility] Comment on above: Performed By: #### B BATTERY ENGINEER, BMP, PT, PTT, HS TROP, CBC, TSH3, CK #### [address] Neutrophils/100 WBC (Bld) 79.3 % Normal . [facility] Comment on above: Performed By: #### B BATTERY ENGINEER, BMP, PT, PTT, HS TROP, CBC, TSH3, CK #### [place] [address] [place] NRBC% 0.0 /100{WBC} Normal 0-0.5 [facility] Comment on above: Performed By: #### B BATTERY ENGINEER, BMP, PT, PTT, HS TROP, CBC, TSH3, CK #### [place] [address] [place] Platelet mean volume (Bld) [Entitic vol] 7.2 fL Normal 6.3-10.7 [facility] Comment on above: Performed By: #### B BATTERY ENGINEER, BMP, PT, PTT, HS TROP, CBC, TSH3, CK #### [address] [address] [place] Platelets (Bld) [#/Vol] 237 10*3/uL Normal 150-450 [facility] Comment on above: Performed By: #### B BATTERY ENGINEER, BMP, PT, PTT, HS TROP, CBC, TSH3, CK #### [facility] [address] RBC (Bld) [#/Vol] 3.87 10*6/uL Normal 3.60-5.00 [facility] Comment on above: Performed By: #### B BATTERY ENGINEER, BMP, PT, PTT, HS TROP, CBC, TSH3, CK #### [facility] [address] WBC (Bld) [#/Vol] 8.9 10*3/uL Normal 3.8-11.6 [facility] Comment on above: Performed By: #### B BATTERY ENGINEER, BMP, PT, PTT, HS TROP, CBC, TSH3, CK #### [facility] [address] Creatine Kinaseon 03-12-2023 CK [Catalytic activity/Vol] 20 U/L Low [facility] Comment on above: Performed By: #### B BATTERY ENGINEER, BMP, PT, PTT, HS TROP, CBC, TSH3, CK #### [facility] [address] Creatine kinase [Enzymatic a ctivity/volume] in Serum or PlasmaOrdered By: Hunter Dhillon on 03-12-2023 CK [Catalytic activity/Vol] 20 U/L [facility] Creatinine [Mass/volume] in Serum or PlasmaOrdered By: Hunter Dhillon on 03-12-2023 Creatinine [Mass/Vol] 0.92 mg/dL 0.60-1.20 [facility] Dipstick and Microscopicon 1 Appearance (U) Slightly Cloudy Critically abnormal Clear [facility] Comment on above: Order Comment: Name Collection Type:: Clean-Voided Midstream Performed By: #### A DDONUAPLUS #### [address] Bacteria,Urine 1+ High None Seen [facility] Comment on above: Order Comment: Name Collection Type:: Clean-Voided Midstream Result Comment: PERF ORMED BY: [place] [address] PATHOLOGIST CUTTER GRINDER OPERATOR RAQUEL LOPEZ M.D. Performed By: #### A DDONUAPLUS #### [facility] [address] [place] [address] [place] Bilirubin,Urine Negative Normal Negative [facility] Comment on above: Order Comment: Name Collection Type:: Clean-Voided Midstream Performed By: #### A DDONUAPLUS #### [place] [address] [place] Color (U) Yellow Normal Yellow [facility] Comment on above: Order Comment: Name Collection Type:: Clean-Voided Midstream Performed By: #### A DDONUAPLUS #### [place] [address] [place] Glucose Ql (U) Normal Normal Normal [facility] Comment on above: Order Comment: Name Collection Type:: Clean-Voided Midstream Performed By: #### A DDONUAPLUS #### [place] [address] [place] Ketones Ql (U) Negative Normal Negative [facility] Comment on above: Order Comment: Name Collection Type:: Clean-Voided Midstream Performed By: #### A DDONUAPLUS #### [place] [address] [place] Leukocyte esterase Test strip Ql (U) 3+ High Negative [facility] Comment on above: Order Comment: Name Collection Type:: Clean-Voided Midstream Performed By: #### A DDONUAPLUS #### [place] [address] [place] Nitrite,Urine Negative Normal Negative [facility] Comment on above: Order Comment: Name Collection Type:: Clean-Voided Midstream Performed By: #### A DDONUAPLUS #### [place] [address] [place] Occult Blood,Urine Negative Normal Negative [facility] Comment on above: Order Comment: Name Collection Type:: Clean-Voided Midstream Result Comment: PERF ORMED BY: [place] [address] PATHOLOGIST CUTTER GRINDER OPERATOR RAQUEL LOPEZ M.D. Performed By: #### A DDONUAPLUS #### [address] pH (U) 7.5 [pH] Normal 5.0-9.0 [facility] Comment on above: Order Comment: Name Collection Type:: Clean-Voided Midstream Performed By: #### A DDONUAPLUS #### [address] Protein,Urine Negative Normal Negative [facility] Comment on above: Order Comment: Name Collection Type:: Clean-Voided Midstream Performed By: #### A DDONUAPLUS #### [address] RBC,Urine None Seen Normal 0-4 [facility] Comment on above: Order Comment: Name Collection Type:: Clean-Voided Midstream Performed By: #### A DDONUAPLUS #### [address] Specificy [place],Urine 1.010 Normal 1.001-1.03 0 [facility] Comment on above: Order Comment: Name Collection Type:: Clean-Voided Midstream Performed By: #### A DDONUAPLUS #### [address] Squamous Epithelial Cell,Urine 5-9 High 0-2 [facility] Comment on above: Order Comment: Name Collection Type:: Clean-Voided Midstream Performed By: #### A DDONUAPLUS #### [address] Urobilinogen,Urine Normal Normal Normal [facility] Comment on above: Order Comment: Name Collection Type:: Clean-Voided Midstream Performed By: #### A DDONUAPLUS #### [address] [place] [address] [facility] WBC,Urine 5-9 High 0-4 [facility] Comment on above: Order Comment: Name Collection Type:: Clean-Voided Midstream Performed By: #### A DDONUAPLUS #### [facility] [address] [place], [place] [id number] [facility] ECG 12 lead ECGon 03-12-2023 ECG 12 lead ECG [facility] [place] [address] [place] [address] Electrocardiograph Report Signed Patient: Steven Harding MR#: [id number] 1 : 1940 Acct:[id number] Age/Sex: 83 / F ADM Date: 03/12/23 Loc: Room: [address] [place] [address] Type: ADM INOo Attending Dr: Sima Hdz [...] longer present Confirmed by Zane Michael DO ([id number]) on 03/13/2023 8:21:27 AM Referred By: Electronically Signed By:Zane Michael DO Transcribed By: MUS Signed By Zane Michael DO 3 0821 Normal [facility] Eosinophils Auto (Bld) [#/Vo l]Ordered By: Hunter Dhillon on 03-12-2023 Eosinophils (Bld) [#/Vol] 0.2 10*3/uL 0.0-0.45 [facility] Eosinophils/100 WBC Auto (Bl d)Ordered By: Hunter Dhillon on 03-12-2023 Eosinophils/100 WBC (Bld) 2.0 % . [facility] Erythrocyte distribution wid th Auto (RBC) [Ratio]Ordered By: Hunter Dhillon on 03-12-2023 Erythrocyte distribution width (RBC) [Ratio] 12.6 % 11.9-15.3 [facility] Globulin Calc (S) [Mass/Vol] Ordered By: Hunter Dhillon on 03-12-2023 Globulin (S) [Mass/Vol] 2.2 g/dL [facility] Glucose [Mass/volume] in Ser um or PlasmaOrdered By: Hunter Dhillon on 03-12-2023 Glucose [Mass/Vol] 87 mg/dL 70-100 [facility] Comment on above: ADA recommended refe rence rangeRandom Glucose Reference Range is dependent on time and content of last meal. Glucose of more than 200 mg/dL in a nonstressed, ambulatory subject supports the diagnosis of Diabetes Mellitus. Hematocrit Auto (Bld) [Volum e fraction]Ordered By: Hunter Dhillon on 03-12-2023 Hematocrit (Bld) [Volume fraction] 35.5 % 34.0-46.4 [facility] Hemoglobin [Mass/volume] in BloodOrdered By: Hunter Dhillon on 03-12-2023 Hemoglobin (Bld) [Mass/Vol] 12.4 g/dL 11.8-15.4 [facility] Hepatic Panelon 03-12-2023 Albumin [Mass/Vol] 4.1 g/dL Normal 3.5-5.7 [facility] Comment on above: Performed By: #### B BATTERY ENGINEER, BMP, PT, PTT, HS TROP, CBC, TSH3, CK #### [facility] [address] Albumin/Globulin [Mass ratio] 1.9 {ratio} Normal [facility] Comment on above: Performed By: #### B BATTERY ENGINEER, BMP, PT, PTT, HS TROP, CBC, TSH3, CK #### [facility] [address] ALP [Catalytic activity/Vol] 40 U/L Normal 34-104 [facility] Comment on above: Performed By: #### B BATTERY ENGINEER, BMP, PT, PTT, HS TROP, CBC, TSH3, CK #### [facility] [address] ALT [Catalytic activity/Vol] 14 U/L Normal 7-52 [facility] Comment on above: Performed By: #### B BATTERY ENGINEER, BMP, PT, PTT, HS TROP, CBC, TSH3, CK #### [address] AST [Catalytic activity/Vol] 15 U/L Normal 13-39 [facility] Comment on above: Performed By: #### B BATTERY ENGINEER, BMP, PT, PTT, HS TROP, CBC, TSH3, CK #### [address] Bilirubin [Mass/Vol] 0.4 mg/dL Normal 0.3-1.0 [facility] Comment on above: Performed By: #### B BATTERY ENGINEER, BMP, PT, PTT, HS TROP, CBC, TSH3, CK #### [address] Bilirubin,Indirect 0.3 mg/dL Normal [facility] Comment on above: Performed By: #### B BATTERY ENGINEER, BMP, PT, PTT, HS TROP, CBC, TSH3, CK #### [address] Bilirubin.indirect [Mass/Vol] 0.10 mg/dL Normal 0.03-0.18 [facility] Comment on above: Performed By: #### B BATTERY ENGINEER, BMP, PT, PTT, HS TROP, CBC, TSH3, CK #### [address] Globulin (S) [Mass/Vol] 2.2 g/dL Normal [facility] Comment on above: Performed By: #### B BATTERY ENGINEER, BMP, PT, PTT, HS TROP, CBC, TSH3, CK #### [address] Protein [Mass/Vol] 6.3 g/dL Low 6.4-8.9 [facility] Comment on above: Performed By: #### B BATTERY ENGINEER, BMP, PT, PTT, HS TROP, CBC, TSH3, CK #### [address] [place] [address] [facility] INR in Platelet poor plasma by Coagulation assayOrdered By: Hunter Dhillon on 03-12-2023 INR Coag (PPP) [Relative time] 0.9 {INR} [facility] Comment on above: INR Therapeutic Rang e [...] 03-12-2023 Ketones (U) [Mass/Vol] Negative Negative [facility] Leukocytes [#/volume] correc jazmyne for nucleated erythrocytes in Blood by Automated counOrdered By: Hunter Dhillon on 03-12-2023 WBC corrected for nucl RBC Auto (Bld) [#/Vol] 8.9 10*3/uL 3.8-11.6 [facility] Lymphocytes Auto (Bld) [#/Vo l]Ordered By: Hunter Dhillon on 03-12-2023 Lymphocytes (Bld) [#/Vol] 1.2 10*3/uL 1.00-4.8 [facility] Lymphocytes/100 WBC Auto (Bl d)Ordered By: Hunter Dhillon on 03-12-2023 Lymphocytes/100 WBC (Bld) 13.2 % . [facility] MCH Auto (RBC) [Entitic mass ]Ordered By: Hunter Dhillon on 03-12-2023 MCH (RBC) [Entitic mass] 31.9 pg 24.7-34.3 [facility] MCHC Auto (RBC) [Mass/Vol]Or dered By: Hunter Dhillon on 03-12-2023 MCHC (RBC) [Mass/Vol] 34.7 g/dL 32.0-35.0 [facility] MCV Auto (RBC) [Entitic vol] Ordered By: Hunter Dhillon on 03-12-2023 MCV (RBC) [Entitic vol] 91.8 fL 80-100 [facility] Monocyte distribution width [Entitic volume] in Blood by AutomatedOrdered By: Hunter Dhillon on 03-12-2023 Monocyte distribution width Auto (Bld) [Entitic vol] 17.50 % 0.00-20.00 [facility] Monocytes Auto (Bld) [#/Vol] Ordered By: Hunter Dhillon on 03-12-2023 Monocytes (Bld) [#/Vol] 0.5 10*3/uL 0.0-0.8 [facility] Monocytes/100 WBC Auto (Bld) Ordered By: Hunter Dhillon on 03-12-2023 Monocytes/100 WBC (Bld) 5.1 % . [facility] Natriuretic peptide B [Mass/ Vol]Ordered By: Hunter Dhillon on 03-12-2023 Natriuretic peptide B (Bld) [Mass/Vol] 83.0 pg/mL 5-100 [facility] Neutrophils Auto (Bld) [#/Vo l]Ordered By: Hunter Dhillon on 03-12-2023 Neutrophils (Bld) [#/Vol] 7.0 10*3/uL 1.8-7.7 [facility] Neutrophils/100 WBC Auto (Bl d)Ordered By: Hunter Dhillon on 03-12-2023 Neutrophils/100 WBC (Bld) 79.3 % . [facility] No Panel InformationOrdered By: Hunter Dhillon on 03-12-2023 Estimated GFR (CKD-EPI) > 60.0 mL/Min [facility] Creatinine Clearance (Chem 41.99 [facility] Nucleated erythrocytes [Pres ence] in Blood by Automated countOrdered By: Hunter Dhillon on 03-12-2023 Nucleated RBC Auto Ql (Bld) 0.0 /100{WBC} 0-0.5 [facility] Partial Thromboplastin Timeo n 03-12-2023 aPTT Coag (Bld) [Time] 26.1 s Normal 25.1-36.5 [facility] Comment on above: Result Comment: A he matocrit value greater than 55% may lead to inaccurate results in coagulation testing. Patients having hematocrit values >55% require a special collection tube for coagulation studies. Please contact the laboratory at [phone] for redraw instructions. PERFORMED BY: [place] [address] PATHOLOGIST CUTTER GRINDER OPERATOR RAQUEL LOPEZ M.D. Performed By: #### B BATTERY ENGINEER, BMP, PT, PTT, HS TROP, CBC, TSH3, CK #### [facility] [address] Platelet mean volume Auto (B ld) [Entitic vol]Ordered By: Hunter Dhillon on 03-12-2023 Platelet mean volume (Bld) [Entitic vol] 7.2 fL 6.3-10.7 [facility] Platelets Auto (Bld) [#/Vol] Ordered By: Huntre Dhillon on 03-12-2023 Platelets (Bld) [#/Vol] 237 10*3/uL 150-450 [facility] Potassium [Moles/volume] in Serum or PlasmaOrdered By: Hunter Dhillon on 03-12-2023 Potassium [Moles/Vol] 4.5 mmol/L 3.5-5.1 [facility] Protein Auto test strip (U) [Mass/Vol]Ordered By: Hunter Dhillon on 03-12-2023 Protein (U) [Mass/Vol] Negative Negative [facility] Protein [Mass/volume] in Ser um or PlasmaOrdered By: Hunter Dhillon on 03-12-2023 Protein [Mass/Vol] 6.3 g/dL 6.4-8.9 [facility] Prothrombin Time INRon 03-12 INR Coag (PPP) [Relative time] 0.9 {INR} Normal [facility] Comment on above: Result Comment: INR Therapeutic [...] 3 - 4.5 Performed By: #### B BATTERY ENGINEER, BMP, PT, PTT, HS TROP, CBC, TSH3, CK #### [facility] [address] PT Coag (PPP) [Time] 11.3 s Normal 9.0-12.9 [facility] Comment on above: Result Comment: A he matocrit value greater than 55% may lead to inaccurate results in coagulation testing. Patients having hematocrit values >55% require a special collection tube for coagulation studies. Please contact the laboratory at [phone] for redraw instructions. Performed By: #### B BATTERY ENGINEER, BMP, PT, PTT, HS TROP, CBC, TSH3, CK #### [facility] [address] Prothrombin time (PT)Ordered By: Hunter Dhillon on 03-12-2023 PT Coag (PPP) [Time] 11.3 s 9.0-12.9 [facility] Comment on above: A hematocrit value g reater than 55% may lead to inaccurate results in coagulation testing. Patients having hematocrit values >55% require a special collection tube for coagulation studies. Please contact the laboratory at [phone] for redraw instructions. RBC Auto (Bld) [#/Vol]Ordere d By: Hunter Dhillon on 03-12-2023 RBC (Bld) [#/Vol] 3.87 10*6/uL 3.60-5.00 [facility] Serum or plasma albumin/glob ulin mass ratioOrdered By: Hunter Dhillon on 03-12-2023 Albumin/Globulin [Mass ratio] 1.9 {ratio} [facility] Serum or plasma anion gap de terminationOrdered By: Hunter Dhillon on 03-12-2023 Anion gap [Moles/Vol] 13.3 mmol/L 6.0-15.0 [facility] Serum or plasma non-glucuron idated bilirubin measurement (mass/volume)Ordered By: Hunter Dhillon on 03-12-2023 Bilirubin.indirect [Mass/Vol] 0.3 mg/dL [facility] Sodium [Moles/volume] in Ser um or PlasmaOrdered By: Hunter Dhillon on 03-12-2023 Sodium [Moles/Vol] 128 mmol/L 136-145 [facility] Squamous epithelial cells de tection in urine sediment by light microscopyOrdered By: Hunter Dhillon on 03-12-2023 Epithelial cells.squamous LM Ql (Urine sed) 5-9 [HPF] 0-2 [facility] Thyroid Stimulating Hormoneo n 03-12-2023 TSH Qn 0.01 m[IU]/L Low 0.45-5.33 [facility] Comment on above: Result Comment: PERF ORMED BY: [place] [address] PATHOLOGIST CUTTER GRINDER OPERATOR RAQUEL LOPEZ M.D. Performed By: #### B BATTERY ENGINEER, BMP, PT, PTT, HS TROP, CBC, TSH3, CK #### [facility] [address] [place] [address] [place] Thyrotropin [Units/volume] i n Serum or PlasmaOrdered By: Hunter Dhillon on 03-12-2023 TSH Qn 0.01 m[IU]/L 0.45-5.33 [facility] Troponin I High Sensitivityo n 03-12-2023 Troponin I High Sensitivity 5.6 pg/mL Normal 0.0-15.0 [facility] Comment on above: Result Comment: PERF ORMED BY: [place] [address] PATHOLOGIST CUTTER GRINDER OPERATOR RAQUEL LOPEZ M.D. Performed By: #### B BATTERY ENGINEER, BMP, PT, PTT, HS TROP, CBC, TSH3, CK #### [facility] [address] [place], [place] [id number] [place] Troponin I.cardiac [Mass/vol ume] in Serum or Plasma by Detection limit <= 0.01 ng/Ordered By: Hunter Dhillno on 03-12-2023 Troponin I.cardiac DL <= 0.01 ng/mL [Mass/Vol] 5.6 pg/mL 0.0-15.0 [facility] Urea nitrogen [Mass/volume] in Serum or PlasmaOrdered By: Hunter Dhillon on 03-12-2023 Urea nitrogen [Mass/Vol] 11 mg/dL 7-25 [facility] Urine appearanceOrdered By: Hunter Dhillon on 03-12-2023 Appearance (U) Slightly cloudy Clear [facility] Urine bacteria detection by automated methodOrdered By: Hunter Dhillon on 03-12-2023 Bacteria Auto Ql (U) 1+ None Seen [facility] Urine colorOrdered By: Gera Dhillon on 03-12-2023 Color (U) Yellow Yellow [facility] Urine glucose measurement by automated test strip (mass/volume)Ordered By: Hunter Dhillon on 03-12-2023 Glucose Auto test strip (U) [Mass/Vol] Normal mg/dL Normal [facility] Urine hemoglobin detection b y automated test stripOrdered By: Hunter Dhillon on 03-12-2023 Hemoglobin Auto test strip Ql (U) Negative Negative [facility] Urine leukocyte esterase det ection by automated test stripOrdered By: Hunter Dhillon on 03-12-2023 Leukocyte esterase Auto test strip Ql (U) 3+ Negative [facility] Urine nitrite detection by a utomated test stripOrdered By: Hunter Dhillon on 03-12-2023 Nitrite Auto test strip Ql (U) Negative Negative [facility] Urobilinogen Auto test strip (U) [Mass/Vol]Ordered By: Hunter Dhillon on 03-12-2023 Urobilinogen (U) [Mass/Vol] Normal mg/dL Normal [facility] WBC Auto (Bld) [#/Vol]Ordere d By: Hunter Dhillon on 03-12-2023 WBC (Bld) [#/Vol] 8.9 10*3/uL 3.8-11.6 [facility] pH Auto test strip (U)Ordere d By: Hunter Dhillon on 03-12-2023 pH (U) 1.010 [pH] 1.001-1.03 0 [facility] pH (U) 7.5 [pH] 5.0-9.0 [facility] Basic Metabolic Panelon 02-11 Anion gap [Moles/Vol] 6.6 mmol/L Normal 6.0-15.0 [facility] Comment on above: Performed By: #### B BATTERY ENGINEER, BMP, PT, PTT, HS TROP, CBC, TSH3, CK #### [facility] [address] Calcium [Mass/Vol] 8.9 mg/dL Normal 8.6-10.3 [facility] Comment on above: Performed By: #### B BATTERY ENGINEER, BMP, PT, PTT, HS TROP, CBC, TSH3, CK #### [facility] [address] Chloride [Moles/Vol] 104 mmol/L Normal 98-107 [facility] Comment on above: Performed By: #### B BATTERY ENGINEER, BMP, PT, PTT, HS TROP, CBC, TSH3, CK #### [facility] [address] CO2 [Moles/Vol] 26.8 mmol/L Normal 21.0-31.[address] [facility] Comment on above: Performed By: #### B BATTERY ENGINEER, BMP, PT, PTT, HS TROP, CBC, TSH3, CK #### [facility] [address] Creatinine [Mass/Vol] 0.83 mg/dL Normal 0.60-1.20 [facility] Comment on above: Performed By: #### B BATTERY ENGINEER, BMP, PT, PTT, HS TROP, CBC, TSH3, CK #### [facility] [address] Creatinine Clr Calc Pharmacy 46.94 [facility] Comment on above: Performed By: #### B BATTERY ENGINEER, BMP, PT, PTT, HS TROP, CBC, TSH3, CK #### [facility] [address] GFR/1.73 sq M.predicted MDRD (S/P/Bld) [Vol rate/Area] mL/min/{1.73_m2} [facility] Comment on above: Performed By: #### B BATTERY ENGINEER, BMP, PT, PTT, HS TROP, CBC, TSH3, CK #### [facility] [address] Glucose [Mass/Vol] 94 mg/dL Normal 70-100 [facility] Comment on above: Result Comment: [place] Glucose Reference Range is dependent on time and content of last meal. Glucose of more than 200 mg/dL in a nonstressed, ambulatory subject supports the diagnosis of Diabetes Mellitus. ADA recommended reference range Performed By: #### B BATTERY ENGINEER, BMP, PT, PTT, HS TROP, CBC, TSH3, CK #### [facility] [address] Potassium [Moles/Vol] 4.4 mmol/L Normal 3.5-5.1 [facility] Comment on above: Performed By: #### B BATTERY ENGINEER, BMP, PT, PTT, HS TROP, CBC, TSH3, CK #### [facility] [address] Sodium [Moles/Vol] 133 mmol/L Low 136-145 [facility] Comment on above: Performed By: #### B BATTERY ENGINEER, BMP, PT, PTT, HS TROP, CBC, TSH3, CK #### [facility] [address] Urea nitrogen [Mass/Vol] 8 mg/dL Normal 7-25 [facility] Comment on above: Performed By: #### B BATTERY ENGINEER, BMP, PT, PTT, HS TROP, CBC, TSH3, CK #### [facility] [address] Basophils Auto (Bld) [#/Vol] Ordered By: Chuck Chacon on 03-07-2023 Basophils (Bld) [#/Vol] 0.0 10*3/uL 0.0-0.2 [facility] Basophils/100 WBC Auto (Bld) Ordered By: Chuck Chacon on 03-07-2023 Basophils/100 WBC (Bld) 0.7 % . [facility] Calcium [Mass/volume] in Ser um or PlasmaOrdered By: Chuck Chacon on 03-07-2023 Calcium [Mass/Vol] 8.9 mg/dL 8.6-10.3 [facility] Carbon dioxide, total [Moles /volume] in Serum or PlasmaOrdered By: Chuck Chacon on 03-07-2023 CO2 [Moles/Vol] 26.8 mmol/L 21.0-31.[address] [facility] Chloride [Moles/volume] in S yamilex or PlasmaOrdered By: Chuck Cahcon on 03-07-2023 Chloride [Moles/Vol] 104 mmol/L 98-107 [facility] Complete Blood Count Auto Di ffon 03-07-2023 Basophils (Bld) [#/Vol] 0.0 10*3/uL Normal 0.0-0.2 [facility] Comment on above: Result Comment: PERF ORMED BY: [place] [address] PATHOLOGIST CUTTER GRINDER OPERATOR RAQUEL LOPEZ M.D. Performed By: #### B BATTERY ENGINEER, BMP, PT, PTT, HS TROP, CBC, TSH3, CK #### [address] Basophils/100 WBC (Bld) 0.7 % Normal . [facility] Comment on above: Performed By: #### B BATTERY ENGINEER, BMP, PT, PTT, HS TROP, CBC, TSH3, CK #### [address] Eosinophils (Bld) [#/Vol] 0.4 10*3/uL Normal 0.0-0.45 [facility] Comment on above: Performed By: #### B BATTERY ENGINEER, BMP, PT, PTT, HS TROP, CBC, TSH3, CK #### [address] Eosinophils/100 WBC (Bld) 5.2 % Normal . [facility] Comment on above: Performed By: #### B BATTERY ENGINEER, BMP, PT, PTT, HS TROP, CBC, TSH3, CK #### [address] Erythrocyte distribution width (RBC) [Ratio] 12.8 % Normal 11.9-15.3 [facility] Comment on above: Performed By: #### B BATTERY ENGINEER, BMP, PT, PTT, HS TROP, CBC, TSH3, CK #### [address] Hematocrit (Bld) [Volume fraction] 35.2 % Normal 34.0-46.4 [facility] Comment on above: Performed By: #### B BATTERY ENGINEER, BMP, PT, PTT, HS TROP, CBC, TSH3, CK #### [address] Hemoglobin (Bld) [Mass/Vol] 12.0 g/dL Normal 11.8-15.4 [facility] Comment on above: Performed By: #### B BATTERY ENGINEER, BMP, PT, PTT, HS TROP, CBC, TSH3, CK #### [address] Lymphocytes (Bld) [#/Vol] 1.7 10*3/uL Normal 1.00-4.8 [facility] Comment on above: Performed By: #### B BATTERY ENGINEER, BMP, PT, PTT, HS TROP, CBC, TSH3, CK #### [address] Lymphocytes/100 WBC (Bld) 24.6 % Normal . [facility] Comment on above: Performed By: #### B BATTERY ENGINEER, BMP, PT, PTT, HS TROP, CBC, TSH3, CK #### [address] MCH (RBC) [Entitic mass] 31.6 pg Normal 24.7-34.3 [facility] Comment on above: Performed By: #### B BATTERY ENGINEER, BMP, PT, PTT, HS TROP, CBC, TSH3, CK #### [address] MCV (RBC) [Entitic vol] 92.5 fL Normal 80-100 [facility] Comment on above: Performed By: #### B BATTERY ENGINEER, BMP, PT, PTT, HS TROP, CBC, TSH3, CK #### [address] Mean Corpuscular HGB Conc 34.1 g/dL Normal 32.0-35.0 [facility] Comment on above: Performed By: #### B BATTERY ENGINEER, BMP, PT, PTT, HS TROP, CBC, TSH3, CK #### [address] Monocytes (Bld) [#/Vol] 0.6 10*3/uL Normal 0.0-0.8 [facility] Comment on above: Performed By: #### B BATTERY ENGINEER, BMP, PT, PTT, HS TROP, CBC, TSH3, CK #### [address] Monocytes/100 WBC (Bld) 8.7 % Normal . [facility] Comment on above: Performed By: #### B BATTERY ENGINEER, BMP, PT, PTT, HS TROP, CBC, TSH3, CK #### [address] Neutrophils (Bld) [#/Vol] 4.2 10*3/uL Normal 1.8-7.7 [facility] Comment on above: Performed By: #### B BATTERY ENGINEER, BMP, PT, PTT, HS TROP, CBC, TSH3, CK #### [address] Neutrophils/100 WBC (Bld) 60.8 % Normal . [facility] Comment on above: Performed By: #### B BATTERY ENGINEER, BMP, PT, PTT, HS TROP, CBC, TSH3, CK #### [address] NRBC% 0.0 /100{WBC} Normal 0-0.5 [facility] Comment on above: Performed By: #### B BATTERY ENGINEER, BMP, PT, PTT, HS TROP, CBC, TSH3, CK #### [address] Platelet mean volume (Bld) [Entitic vol] 7.5 fL Normal 6.3-10.7 [facility] Comment on above: Performed By: #### B BATTERY ENGINEER, BMP, PT, PTT, HS TROP, CBC, TSH3, CK #### [place] [address] [place] Platelets (Bld) [#/Vol] 232 10*3/uL Normal 150-450 [facility] Comment on above: Performed By: #### B BATTERY ENGINEER, BMP, PT, PTT, HS TROP, CBC, TSH3, CK #### [place] [id number] [place] RBC (Bld) [#/Vol] 3.80 10*6/uL Normal 3.60-5.00 [facility] Comment on above: Performed By: #### B BATTERY ENGINEER, BMP, PT, PTT, HS TROP, CBC, TSH3, CK #### [facility] [address] WBC (Bld) [#/Vol] 6.8 10*3/uL Normal 3.8-11.6 [facility] Comment on above: Performed By: #### B BATTERY ENGINEER, BMP, PT, PTT, HS TROP, CBC, TSH3, CK #### [facility] [address] Creatinine [Mass/volume] in Serum or PlasmaOrdered By: Chuck Chacon on 03-07-2023 Creatinine [Mass/Vol] 0.83 mg/dL 0.60-1.20 [facility] Eosinophils Auto (Bld) [#/Vo l]Ordered By: Chuck Chacon on 03-07-2023 Eosinophils (Bld) [#/Vol] 0.4 10*3/uL 0.0-0.45 [facility] Eosinophils/100 WBC Auto (Bl d)Ordered By: Chuck Chacon on 03-07-2023 Eosinophils/100 WBC (Bld) 5.2 % . [facility] Erythrocyte distribution wid th Auto (RBC) [Ratio]Ordered By: Chuck Chacon on 03-07-2023 Erythrocyte distribution width (RBC) [Ratio] 12.8 % 11.9-15.3 [facility] Glucose [Mass/volume] in Ser um or PlasmaOrdered By: Chuck Chacon on 03-07-2023 Glucose [Mass/Vol] 94 mg/dL 70-100 [facility] Comment on above: ADA recommended refe rence rangeRandom Glucose Reference Range is dependent on time and content of last meal. Glucose of more than 200 mg/dL in a nonstressed, ambulatory subject supports the diagnosis of Diabetes Mellitus. Hematocrit Auto (Bld) [Volum e fraction]Ordered By: Chuck Chacon on 03-07-2023 Hematocrit (Bld) [Volume fraction] 35.2 % 34.0-46.4 [facility] Hemoglobin [Mass/volume] in BloodOrdered By: Chuck Chacon on 03-07-2023 Hemoglobin (Bld) [Mass/Vol] 12.0 g/dL 11.8-15.4 [facility] Leukocytes [#/volume] correc jazmyne for nucleated erythrocytes in Blood by Automated counOrdered By: Chuck Chacon on 03-07-2023 WBC corrected for nucl RBC Auto (Bld) [#/Vol] 6.8 10*3/uL 3.8-11.6 [facility] Lymphocytes Auto (Bld) [#/Vo l]Ordered By: Chuckscooby Chacon on 03-07-2023 Lymphocytes (Bld) [#/Vol] 1.7 10*3/uL 1.00-4.8 [facility] Lymphocytes/100 WBC Auto (Bl d)Ordered By: Chuck Chacon on 03-07-2023 Lymphocytes/100 WBC (Bld) 24.6 % . [facility] MCH Auto (RBC) [Entitic mass ]Ordered By: Chuck Chacon on 03-07-2023 MCH (RBC) [Entitic mass] 31.6 pg 24.7-34.3 [facility] MCHC Auto (RBC) [Mass/Vol]Or dered By: Chuck Chacon on 03-07-2023 MCHC (RBC) [Mass/Vol] 34.1 g/dL 32.0-35.0 [facility] MCV Auto (RBC) [Entitic vol] Ordered By: Chuckscooby Chacon on 03-07-2023 MCV (RBC) [Entitic vol] 92.5 fL 80-100 [facility] Magnesiumon 03-07-2023 Magnesium [Mass/Vol] 1.4 mg/dL Low 1.9-2.7 [facility] Comment on above: Result Comment: PERF ORMED BY: [facility] [address] [place] [address] PATHOLOGIST CUTTER GRINDER OPERATOR RAQUEL LOPEZ M.D. Performed By: #### B BATTERY ENGINEER, BMP, PT, PTT, HS TROP, CBC, TSH3, CK #### [facility] [address] Magnesium [Mass/volume] in S yamilex or PlasmaOrdered By: Chuck Chacon on 03-07-2023 Magnesium [Mass/Vol] 1.4 mg/dL 1.9-2.7 [facility] Monocytes Auto (Bld) [#/Vol] Ordered By: Chuckscooby Chacon on 03-07-2023 Monocytes (Bld) [#/Vol] 0.6 10*3/uL 0.0-0.8 [facility] Monocytes/100 WBC Auto (Bld) Ordered By: Chuckscooby Chacon on 03-07-2023 Monocytes/100 WBC (Bld) 8.7 % . [facility] Neutrophils Auto (Bld) [#/Vo l]Ordered By: Chuckscooby Chacon on 03-07-2023 Neutrophils (Bld) [#/Vol] 4.2 10*3/uL 1.8-7.7 [facility] Neutrophils/100 WBC Auto (Bl d)Ordered By: Chuckscooby Chacon on 03-07-2023 Neutrophils/100 WBC (Bld) 60.8 % . [facility] No Panel InformationOrdered By: Chuck Doamejames on 03-07-2023 Estimated GFR (CKD-EPI) > 60.0 mL/Min [facility] Creatinine Clearance (Chem 46.94 [facility] Nucleated erythrocytes [Pres ence] in Blood by Automated countOrdered By: Chuckscooby Chacon on 03-07-2023 Nucleated RBC Auto Ql (Bld) 0.0 /100{WBC} 0-0.5 [facility] Platelet mean volume Auto (B ld) [Entitic vol]Ordered By: Chuck Chacon on 03-07-2023 Platelet mean volume (Bld) [Entitic vol] 7.5 fL 6.3-10.7 [facility] Platelets Auto (Bld) [#/Vol] Ordered By: Chuck Chacon on 03-07-2023 Platelets (Bld) [#/Vol] 232 10*3/uL 150-450 [facility] Potassium [Moles/volume] in Serum or PlasmaOrdered By: Chuck Chacon on 03-07-2023 Potassium [Moles/Vol] 4.4 mmol/L 3.5-5.1 [facility] RBC Auto (Bld) [#/Vol]Ordere d By: Chuck Chacon on 03-07-2023 RBC (Bld) [#/Vol] 3.80 10*6/uL 3.60-5.00 [facility] Serum or plasma anion gap de terminationOrdered By: Chuck Chacon on 03-07-2023 Anion gap [Moles/Vol] 6.6 mmol/L 6.0-15.0 [facility] Sodium [Moles/volume] in Ser um or PlasmaOrdered By: Chuck Chacon on 03-07-2023 Sodium [Moles/Vol] 133 mmol/L 136-145 [facility] Urea nitrogen [Mass/volume] in Serum or PlasmaOrdered By: Chuck Chacon on 03-07-2023 Urea nitrogen [Mass/Vol] 8 mg/dL 01-03 [facility] WBC Auto (Bld) [#/Vol]Ordere d By: Chuck Chacon on 03-07-2023 WBC (Bld) [#/Vol] 6.8 10*3/uL 3.8-11.6 [facility] A1C with Estimated Average G christyn 03-06-2023 Glucose [Mass/Vol] 120 mg/dL Normal [facility] Comment on above: Result Comment: PERF ORMED BY: [facility] [address] [place] [address] PATHOLOGIST CUTTER GRINDER OPERATOR RAQUEL LOPEZ M.D. Performed By: #### B BATTERY ENGINEER, BMP, PT, PTT, HS TROP, CBC, TSH3, CK #### [facility] [address] HbA1c (Bld) [Mass fraction] 5.8 % High 4.3-5.6 [facility] Comment on above: Result Comment: Incr eased risk for diabetes: 5.7 - 6.4 diabetes: >6.4 glycemic control for adults with diabetes: <7.0 Performed By: #### B BATTERY ENGINEER, BMP, PT, PTT, HS TROP, CBC, TSH3, CK #### [facility] [address] Alanine aminotransferase [En zymatic activity/volume] in Serum or PlasmaOrdered By: Jemal Jones on 03-06-2023 ALT [Catalytic activity/Vol] 17 U/L 7-52 [facility] Albumin [Mass/volume] in Ser um or Plasma by Bromocresol green (BCG) dye binding methoOrdered By: Jemal Jones on 03-06-2023 Albumin BCG dye [Mass/Vol] 4.3 g/dL 3.5-5.7 [facility] Alkaline phosphatase [Enzyma tic activity/volume] in Serum or PlasmaOrdered By: Jemal Jones on 03-06-2023 ALP [Catalytic activity/Vol] 45 U/L 34-104 [facility] Aspartate aminotransferase [ Enzymatic activity/volume] in Serum or PlasmaOrdered By: Jemal Jones on 03-06-2023 AST [Catalytic activity/Vol] 16 U/L 13-39 [facility] Bilirubin.total [Mass/volume ] in Serum or PlasmaOrdered By: Jemal Jones on 03-06-2023 Bilirubin [Mass/Vol] 0.5 mg/dL 0.3-1.0 [facility] Cholesterol [Mass/volume] in Serum or PlasmaOrdered By: Jemal Jones on 03-06-2023 Cholesterol [Mass/Vol] 88 mg/dL 140-200 [facility] Comment on above: Chol less than 200 m g/dl low riskChol 201-239 mg/dl borderline riskChol 240 mg/dl and greater high risk Cholesterol in LDL Calc [Mas s/Vol]Ordered By: Jemal Jones on 03-06-2023 Cholesterol in LDL [Mass/Vol] 29 mg/dL 0-100 [facility] Comment on above: LDL ATP III CLASSIFI CATIONLDL less than 100 mg/dL OptimalLDL 100-129 mg/dL Near or above optimalLDL 130-159 mg/dL Borderline highLDL 160-189 mg/dL HighLDL greater than 189 mg/dL Very high Cholesterol in VLDL Calc [Ma ss/Vol]Ordered By: Jemal Jones on 03-06-2023 Cholesterol in VLDL [Mass/Vol] 16 mg/dL [facility] Complete Blood Count Auto Di ffon 03-06-2023 Basophils (Bld) [#/Vol] 0.0 10*3/uL Normal 0.0-0.2 [facility] Comment on above: Result Comment: PERF ORMED BY: [place] [address] PATHOLOGIST CUTTER GRINDER OPERATOR RAQUEL LOPEZ M.D. Performed By: #### B BATTERY ENGINEER, BMP, PT, PTT, HS TROP, CBC, TSH3, CK #### [address] Basophils/100 WBC (Bld) 0.6 % Normal . [facility] Comment on above: Performed By: #### B BATTERY ENGINEER, BMP, PT, PTT, HS TROP, CBC, TSH3, CK #### [address] Eosinophils (Bld) [#/Vol] 0.3 10*3/uL Normal 0.0-0.45 [facility] Comment on above: Performed By: #### B BATTERY ENGINEER, BMP, PT, PTT, HS TROP, CBC, TSH3, CK #### [address] Eosinophils/100 WBC (Bld) 4.2 % Normal . [facility] Comment on above: Performed By: #### B BATTERY ENGINEER, BMP, PT, PTT, HS TROP, CBC, TSH3, CK #### [address] Erythrocyte distribution width (RBC) [Ratio] 12.9 % Normal 11.9-15.3 [facility] Comment on above: Performed By: #### B BATTERY ENGINEER, BMP, PT, PTT, HS TROP, CBC, TSH3, CK #### [address] Hematocrit (Bld) [Volume fraction] 37.9 % Normal 34.0-46.4 [facility] Comment on above: Performed By: #### B BATTERY ENGINEER, BMP, PT, PTT, HS TROP, CBC, TSH3, CK #### [address] Hemoglobin (Bld) [Mass/Vol] 13.0 g/dL Normal 11.8-15.4 [facility] Comment on above: Performed By: #### B BATTERY ENGINEER, BMP, PT, PTT, HS TROP, CBC, TSH3, CK #### [address] Lymphocytes (Bld) [#/Vol] 1.7 10*3/uL Normal 1.00-4.8 [facility] Comment on above: Performed By: #### B BATTERY ENGINEER, BMP, PT, PTT, HS TROP, CBC, TSH3, CK #### [address] Lymphocytes/100 WBC (Bld) 22.0 % Normal . [facility] Comment on above: Performed By: #### B BATTERY ENGINEER, BMP, PT, PTT, HS TROP, CBC, TSH3, CK #### [address] MCH (RBC) [Entitic mass] 31.5 pg Normal 24.7-34.3 [facility] Comment on above: Performed By: #### B BATTERY ENGINEER, BMP, PT, PTT, HS TROP, CBC, TSH3, CK #### [address] MCV (RBC) [Entitic vol] 91.9 fL Normal 80-100 [facility] Comment on above: Performed By: #### B BATTERY ENGINEER, BMP, PT, PTT, HS TROP, CBC, TSH3, CK #### [address] Mean Corpuscular HGB Conc 34.3 g/dL Normal 32.0-35.0 [facility] Comment on above: Performed By: #### B BATTERY ENGINEER, BMP, PT, PTT, HS TROP, CBC, TSH3, CK #### [address] Monocytes (Bld) [#/Vol] 0.6 10*3/uL Normal 0.0-0.8 [facility] Comment on above: Performed By: #### B BATTERY ENGINEER, BMP, PT, PTT, HS TROP, CBC, TSH3, CK #### [address] Monocytes/100 WBC (Bld) 8.2 % Normal . [facility] Comment on above: Performed By: #### B BATTERY ENGINEER, BMP, PT, PTT, HS TROP, CBC, TSH3, CK #### [address] Neutrophils (Bld) [#/Vol] 5.1 10*3/uL Normal 1.8-7.7 [facility] Comment on above: Performed By: #### B BATTERY ENGINEER, BMP, PT, PTT, HS TROP, CBC, TSH3, CK #### [address] Neutrophils/100 WBC (Bld) 65.0 % Normal . [facility] Comment on above: Performed By: #### B BATTERY ENGINEER, BMP, PT, PTT, HS TROP, CBC, TSH3, CK #### [address] NRBC% 0.1 /100{WBC} Normal 0-0.5 [facility] Comment on above: Performed By: #### B BATTERY ENGINEER, BMP, PT, PTT, HS TROP, CBC, TSH3, CK #### [place] [address] [place] Platelet mean volume (Bld) [Entitic vol] 7.4 fL Normal 6.3-10.7 [facility] Comment on above: Performed By: #### B BATTERY ENGINEER, BMP, PT, PTT, HS TROP, CBC, TSH3, CK #### [place] [address] [place] Platelets (Bld) [#/Vol] 257 10*3/uL Normal 150-450 [facility] Comment on above: Performed By: #### B BATTERY ENGINEER, BMP, PT, PTT, HS TROP, CBC, TSH3, CK #### [facility] [address] RBC (Bld) [#/Vol] 4.12 10*6/uL Normal 3.60-5.00 [facility] Comment on above: Performed By: #### B BATTERY ENGINEER, BMP, PT, PTT, HS TROP, CBC, TSH3, CK #### [facility] [address] WBC (Bld) [#/Vol] 7.8 10*3/uL Normal 3.8-11.6 [facility] Comment on above: Performed By: #### B BATTERY ENGINEER, BMP, PT, PTT, HS TROP, CBC, TSH3, CK #### [facility] [address] Comprehensive Metabolic Pane zofia 03-06-2023 Albumin [Mass/Vol] 4.3 g/dL Normal 3.5-5.7 [facility] Comment on above: Performed By: #### B BATTERY ENGINEER, BMP, PT, PTT, HS TROP, CBC, TSH3, CK #### [address] Albumin/Globulin [Mass ratio] 1.9 {ratio} Normal [facility] Comment on above: Performed By: #### B BATTERY ENGINEER, BMP, PT, PTT, HS TROP, CBC, TSH3, CK #### [address] ALP [Catalytic activity/Vol] 45 U/L Normal 34-104 [facility] Comment on above: Performed By: #### B BATTERY ENGINEER, BMP, PT, PTT, HS TROP, CBC, TSH3, CK #### [address] ALT [Catalytic activity/Vol] 17 U/L Normal 7-52 [facility] Comment on above: Performed By: #### B BATTERY ENGINEER, BMP, PT, PTT, HS TROP, CBC, TSH3, CK #### [facility] [address] Anion gap [Moles/Vol] 10.4 mmol/L Normal 6.0-15.0 [facility] Comment on above: Performed By: #### B BATTERY ENGINEER, BMP, PT, PTT, HS TROP, CBC, TSH3, CK #### [facility] [address] AST [Catalytic activity/Vol] 16 U/L Normal 13-39 [facility] Comment on above: Performed By: #### B BATTERY ENGINEER, BMP, PT, PTT, HS TROP, CBC, TSH3, CK #### [facility] [address] Bilirubin [Mass/Vol] 0.5 mg/dL Normal 0.3-1.0 [facility] Comment on above: Performed By: #### B BATTERY ENGINEER, BMP, PT, PTT, HS TROP, CBC, TSH3, CK #### [facility] [address] Calcium [Mass/Vol] 9.2 mg/dL Normal 8.6-10.3 [facility] Comment on above: Performed By: #### B BATTERY ENGINEER, BMP, PT, PTT, HS TROP, CBC, TSH3, CK #### [facility] [address] Chloride [Moles/Vol] 98 mmol/L Normal 98-107 [facility] Comment on above: Performed By: #### B BATTERY ENGINEER, BMP, PT, PTT, HS TROP, CBC, TSH3, CK #### [facility] [address] CO2 [Moles/Vol] 24.9 mmol/L Normal 21.0-31.[address] [facility] Comment on above: Performed By: #### B BATTERY ENGINEER, BMP, PT, PTT, HS TROP, CBC, TSH3, CK #### [facility] [address] Creatinine [Mass/Vol] 0.85 mg/dL Normal 0.60-1.20 [facility] Comment on above: Performed By: #### B BATTERY ENGINEER, BMP, PT, PTT, HS TROP, CBC, TSH3, CK #### [facility] [address] Creatinine Clr Calc Pharmacy 45.45 [facility] Comment on above: Performed By: #### B BATTERY ENGINEER, BMP, PT, PTT, HS TROP, CBC, TSH3, CK #### [facility] [address] GFR/1.73 sq M.predicted MDRD (S/P/Bld) [Vol rate/Area] mL/min/{1.73_m2} [facility] Comment on above: Performed By: #### B BATTERY ENGINEER, BMP, PT, PTT, HS TROP, CBC, TSH3, CK #### [facility] [address] Globulin (S) [Mass/Vol] 2.3 g/dL [facility] Comment on above: Performed By: #### B BATTERY ENGINEER, BMP, PT, PTT, HS TROP, CBC, TSH3, CK #### [facility] [address] Glucose [Mass/Vol] 97 mg/dL Normal 70-100 [facility] Comment on above: Result Comment: [place] Glucose Reference Range is dependent on time and content of last meal. Glucose of more than 200 mg/dL in a nonstressed, ambulatory subject supports the diagnosis of Diabetes Mellitus. ADA recommended reference range Performed By: #### B BATTERY ENGINEER, BMP, PT, PTT, HS TROP, CBC, TSH3, CK #### [facility] [address] Potassium [Moles/Vol] 4.3 mmol/L Normal 3.5-5.1 [facility] Comment on above: Performed By: #### B BATTERY ENGINEER, BMP, PT, PTT, HS TROP, CBC, TSH3, CK #### [facility] [address] Protein [Mass/Vol] 6.6 g/dL Normal 6.4-8.9 [facility] Comment on above: Performed By: #### B BATTERY ENGINEER, BMP, PT, PTT, HS TROP, CBC, TSH3, CK #### [facility] [address] Sodium [Moles/Vol] 129 mmol/L Low 136-145 [facility] Comment on above: Performed By: #### B BATTERY ENGINEER, BMP, PT, PTT, HS TROP, CBC, TSH3, CK #### [facility] [address] Urea nitrogen [Mass/Vol] 14 mg/dL Normal - [facility] Comment on above: Performed By: #### B BATTERY ENGINEER, BMP, PT, PTT, HS TROP, CBC, TSH3, CK #### [place] [address] [place] Dipstick and Microscopicon 0 03-06-2023 Appearance (U) Clear Normal Clear [facility] Comment on above: Order Comment: Name Collection Type:: Clean-Voided Midstream Performed By: #### A DDONUAPLUS #### [place] [address] [place] Bacteria,Urine 1+ High None Seen [facility] Comment on above: Order Comment: Name Collection Type:: Clean-Voided Midstream Performed By: #### A DDONUAPLUS #### [place] [address] [place] Bilirubin,Urine Negative Normal Negative [facility] Comment on above: Order Comment: Name Collection Type:: Clean-Voided Midstream Performed By: #### A DDONUAPLUS #### [facility] [address] [place] [address] [place] Color (U) Yellow Normal Yellow [facility] Comment on above: Order Comment: Name Collection Type:: Clean-Voided Midstream Performed By: #### A DDONUAPLUS #### [place] [address] [place] Glucose Ql (U) Normal Normal Normal [facility] Comment on above: Order Comment: Name Collection Type:: Clean-Voided Midstream Performed By: #### A DDONUAPLUS #### [place] [address] [place] Hyaline Casts,Urine None Seen Normal 0-1 [facility] Comment on above: Order Comment: Name Collection Type:: Clean-Voided Midstream Result Comment: PERF ORMED BY: [place] [address] PATHOLOGIST CUTTER GRINDER OPERATOR RAQUEL LOPEZ M.D. Performed By: #### A DDONUAPLUS #### [place] [address] [place] Ketones Ql (U) Trace High Negative [facility] Comment on above: Order Comment: Name Collection Type:: Clean-Voided Midstream Performed By: #### A DDONUAPLUS #### [place] [address] [place] Leukocyte esterase Test strip Ql (U) 1+ High Negative [facility] Comment on above: Order Comment: Name Collection Type:: Clean-Voided Midstream Performed By: #### A DDONUAPLUS #### [place] [address] [place] Nitrite,Urine Negative Normal Negative [facility] Comment on above: Order Comment: Name Collection Type:: Clean-Voided Midstream Performed By: #### A DDONUAPLUS #### [place] [address] [place] Occult Blood,Urine Negative Normal Negative [facility] Comment on above: Order Comment: Name Collection Type:: Clean-Voided Midstream Result Comment: PERF ORMED BY: [place] [address] PATHOLOGIST CUTTER GRINDER OPERATOR RAQUEL LOPEZ M.D. Performed By: #### A DDONUAPLUS #### [place] [address] [place] pH (U) 6.0 [pH] Normal 5.0-9.0 [facility] Comment on above: Order Comment: Name Collection Type:: Clean-Voided Midstream Performed By: #### A DDONUAPLUS #### [address] Protein,Urine Negative Normal Negative [facility] Comment on above: Order Comment: Name Collection Type:: Clean-Voided Midstream Performed By: #### A DDONUAPLUS #### [address] RBC,Urine None Seen Normal 0-4 [facility] Comment on above: Order Comment: Name Collection Type:: Clean-Voided Midstream Performed By: #### A DDONUAPLUS #### [address] Renal Epithelial Cells,Urine Rare Normal 0-1 [facility] Comment on above: Order Comment: Name Collection Type:: Clean-Voided Midstream Performed By: #### A DDONUAPLUS #### [address] Specificy [place],Urine 1.015 Normal 1.001-1.03 0 [facility] Comment on above: Order Comment: Name Collection Type:: Clean-Voided Midstream Performed By: #### A DDONUAPLUS #### [address] Squamous Epithelial Cell,Urine 3-4 High 0-2 [facility] Comment on above: Order Comment: Name Collection Type:: Clean-Voided Midstream Performed By: #### A DDONUAPLUS #### [facility] [address] [place] [address] [place] Urobilinogen,Urine Normal Normal Normal [facility] Comment on above: Order Comment: Name Collection Type:: Clean-Voided Midstream Performed By: #### A DDONUAPLUS #### [place] [address] [place] WBC,Urine 3-4 Normal 0-4 [facility] Comment on above: Order Comment: Name Collection Type:: Clean-Voided Midstream Performed By: #### A DDONUAPLUS #### [facility] [address] [place] [address] [facility] echo transthoracicon [facility] echo transthoracic [facility] [place] [address] [place] [address] Echocardiogram Signed Patient: Steven Harding MR#: [id number] 1 : 1940 Acct:[id number] Age/Sex: 83 / F ADM Date: 03/05/23 Loc: Room: [address] [place] [address] Type: ADM INOo Attending Dr: Chuck Chacon MD Ordering Provider: Jemal Jones MD Date of Service: 03/06/23 [facility] echo transthoracic: Dizziness Copies to: MD Jemal Tello MD Weight: 140 lb Performed By: FREDDIE Vallejo BSA: 1.6 m2 BP: 160/69 mmHg HR: 75 Reason For Study: Dizziness History: aortic aneurysm, HTN, [place], pre-DM, PCI, former smoker, CAD Interpretation Summary [...] By: Karli Dougherty MD 03/06/23 1231 Normal [facility] Free T4 (Free Thyroxine)on 0 03-06-2023 Free T4 [Mass/Vol] 1.01 ng/dL Normal 0.61-1.12 [facility] Comment on above: Performed By: #### B BATTERY ENGINEER, BMP, PT, PTT, HS TROP, CBC, TSH3, CK #### [facility] [address] Globulin Calc (S) [Mass/Vol] Ordered By: Jemal Jones on 03-06-2023 Globulin (S) [Mass/Vol] 2.3 g/dL [facility] Glucose Glucometer (BldC) [M ass/Vol]Ordered By: Jemal Jones on 03-06-2023 Glucose [Mass/Vol] 104 mg/dL [facility] Comment on above: Random Glucose Refer ence Range is dependent on time and content of last meal. Glucose of more than 200 mg/dL in a nonstressed, ambulatory subject supports the diagnosis of Diabetes Mellitus. Glucose Poct Glucometerson 0 03-06-2023 Glucose [Mass/Vol] 104 mg/dL Normal [facility] Comment on above: Result Comment: [place] Glucose Reference Range is dependent on time and content of last meal. Glucose of more than 200 mg/dL in a nonstressed, ambulatory subject supports the diagnosis of Diabetes Mellitus. PERFORMED BY: [place] [address] PATHOLOGIST CUTTER GRINDER OPERATOR RAQUEL LOPEZ M.D. Performed By: #### B BATTERY ENGINEER, BMP, PT, PTT, HS TROP, CBC, TSH3, CK #### [facility] [address] Glucose mean value [Mass/vol ume] in Blood Estimated from glycated hemoglobinOrdered By: Jemal Jones on 03-06-2023 Average glucose Estimated from glycated hemoglobin (Bld) [Mass/Vol] 120 mg/dL [facility] Hemoglobin A1c percentageOrd ered By: Jemal Jones on 03-06-2023 HbA1c (Bld) [Mass fraction] 5.8 % 4.3-5.6 [facility] Comment on above: Increased risk for d iabetes: 5.7 - 6.4diabetes: >6.4glycemic control for adults with diabetes: <7.0 Lipid Panelon 03-06-2023 Cholesterol [Mass/Vol] 88 mg/dL Low 140-200 [facility] Comment on above: Result Comment: Chol less than 200 mg/dl low risk Chol 201-239 mg/dl borderline risk Chol 240 mg/dl and greater high risk Performed By: #### B BATTERY ENGINEER, BMP, PT, PTT, HS TROP, CBC, TSH3, CK #### [facility] [address] [place] [id number] [facility] Cholesterol in HDL [Mass/Vol] 42 mg/dL Normal 23-92 [facility] Comment on above: Result Comment: HDL CHOL ATP-III CLASSIFICATION Cardiovascular Risk HDL > or equal to 60 mg/dL LOW HDL < 40 mg/dL HIGH Performed By: #### B BATTERY ENGINEER, BMP, PT, PTT, HS TROP, CBC, TSH3, CK #### [facility] [address] Cholesterol.total/Chol esterol in HDL [Mass ratio] 2.1 {ratio} Normal <5.0 [facility] Comment on above: Performed By: #### B BATTERY ENGINEER, BMP, PT, PTT, HS TROP, CBC, TSH3, CK #### [facility] [address] LDL Cholesterol,Calculated 29 mg/dL Normal 0-100 [facility] Comment on above: Result Comment: LDL ATP III CLASSIFICATION LDL less than 100 mg/dL Optimal LDL 100-129 mg/dL Near or above optimal LDL 130-159 mg/dL Borderline high LDL 160-189 mg/dL High LDL greater than 189 mg/dL Very high Performed By: #### B BATTERY ENGINEER, BMP, PT, PTT, HS TROP, CBC, TSH3, CK #### [facility] [address] Triglyceride w/Reflex 84 mg/dL Normal 0-149 [facility] Comment on above: Result Comment: TRIG ATP III CLASSIFICATION TRIG less than 150 mg/dL Normal TRIG 150-199 mg/dL Borderline high TRIG 200-500 mg/dL High TRIG greater than 500 mg/dL Very high Standard traceable to the Center for Disease Conrtrol and Prevention (CDC) test method. Performed By: #### B BATTERY ENGINEER, BMP, PT, PTT, HS TROP, CBC, TSH3, CK #### [facility] [address] VLDL CHOLESTEROL 16 mg/dL Normal [facility] Comment on above: Performed By: #### B BATTERY ENGINEER, BMP, PT, PTT, HS TROP, CBC, TSH3, CK #### [facility] [address] Magnesiumon 03-06-2023 Magnesium [Mass/Vol] 1.4 mg/dL Low 1.9-2.7 [facility] Comment on above: Performed By: #### B BATTERY ENGINEER, BMP, PT, PTT, HS TROP, CBC, TSH3, CK #### [facility] [address] Protein [Mass/volume] in Ser um or PlasmaOrdered By: Obchapincitodacitlaly Gonzalezomar on 03-06-2023 Protein [Mass/Vol] 6.6 g/dL 6.4-8.9 [facility] Serum or plasma albumin/glob ulin mass ratioOrdered By: Obchapincitodacitlaly Gonzalezomar on 03-06-2023 Albumin/Globulin [Mass ratio] 1.9 {ratio} [facility] Serum or plasma high density lipoprotein (HDL) cholesterol measurementOrdered By: Objacqui Gonzalezomar on 03-06-2023 Cholesterol in HDL [Mass/Vol] 42 mg/dL 23-92 [facility] Comment on above: HDL CHOL ATP-III CLA SSIFICATION Cardiovascular RiskHDL > or equal to 60 mg/dL LOWHDL < 40 mg/dL HIGH Serum or plasma total choles terol/high density lipoprotein (HDL) cholesterol mass ratOrdered By: Obchapincitodacitlaly Gonzalezomar on 03-06-2023 Cholesterol.total/Chol esterol in HDL [Mass ratio] 2.1 {ratio} <5.0 [facility] Thyroxine (T4) free [Mass/vo lume] in Serum or PlasmaOrdered By: Objacqui Gonzalezomar on 03-06-2023 Free T4 [Mass/Vol] 1.01 ng/dL 0.61-1.12 [facility] Triglyceride [Mass/volume] i n Serum or PlasmaOrdered By: Obchapincitodacitlaly Gonzalezomar on 03-06-2023 Triglyceride [Mass/Vol] 84 mg/dL 0-149 [facility] Comment on above: TRIG ATP III CLASSIF ICATIONTRIG less than 150 mg/dL NormalTRIG 150-199 mg/dL Borderline highTRIG 200-500 mg/dL High TRIG greater than 500 mg/dL Very highStandard traceable to the Center for Disease Conrtrol and Prevention (CDC) test method. Triiodothyronine (T3) Totalo n 03-06-2023 Triiodothyronine (T3) Total 1.29 ng/mL Normal 0.87-1.78 [facility] Comment on above: Result Comment: PERF ORMED BY: [place] [address] PATHOLOGIST CUTTER GRINDER OPERATOR RQAUEL LOPEZ M.D. Performed By: #### B BATTERY ENGINEER, BMP, PT, PTT, HS TROP, CBC, TSH3, CK #### [address] Triiodothyronine (T3) [Mass/ volume] in Serum or PlasmaOrdered By: Jemal Jones on 03-06-2023 T3 [Mass/Vol] 1.29 ng/mL 0.87-1.78 [facility] US carotid doppler BIon 02-11 US carotid doppler BI [facility] [place] [address] [place] [address] Ultrasound Report Signed Patient: Steven Harding MR#: [id number] 1 : 1940 Acct:[id number] Age/Sex: 83 / F ADM Date: 03/05/23 Loc: Room: [address] [place] [address] Type: ADM INOo Attending Dr: Chuck Chacon [...] Bethel Sabillon M.D.03/06/2023 2:21 PM Dictation Location: [facility] Tech: Marla Cottrell Transcribed By: OSCAR 03/06/23 1421 Dictated By: Bethel Sabillon MD 03/06/23 1419 Signed By: 03/06/23 1421 [facility] Activated partial thrombopla stin time (aPTT) in platelet poor plasma by coagulation aOrdered By: Monique Tierney on 03-05-2023 aPTT Coag (PPP) [Time] 25.4 s 25.1-36.5 [facility] Comment on above: A hematocrit value g reater than 55% may lead to inaccurate results in coagulation testing. Patients having hematocrit values >55% require a special collection tube for coagulation studies. Please contact the laboratory at [phone] for redraw instructions. Automated epithelial cells c ount in urine sediment (number/area)Ordered By: Tradacitlaly Gonzalezomar on 03-05-2023 Epithelial cells Auto (Urine sed) [#/Area] 3-4 [HPF] 0-2 [facility] Automated erythrocytes count in urine sediment (number/area)Ordered By: [email or web address] on 03-05-2023 RBC Auto (Urine sed) [#/Area] None seen [HPF] 0-4 [facility] Automated leukocytes count i n urine sediment (number/area)Ordered By: ObClear [email or web address] on 03-05-2023 WBC Auto (Urine sed) [#/Area] 3-4 [HPF] 0-4 [facility] Automated urine hyaline cast s count (number/volume)Ordered By: [email or web address] on 03-05-2023 Hyaline casts Auto (U) [#/Vol] None seen [LPF] 0-1 [facility] B-Type Natriuretic Peptideon 03-05-2023 Natriuretic peptide B (Bld) [Mass/Vol] 42.0 pg/mL Normal 5-100 [facility] Comment on above: Result Comment: PERF ORMED BY: [place] [address] PATHOLOGIST CUTTER GRINDER OPERATOR RAQUEL LOPEZ M.D. Performed By: #### B BATTERY ENGINEER, BMP, PT, PTT, HS TROP, CBC, TSH3, CK #### [address] Basic Metabolic Panelon 02-11 Anion gap [Moles/Vol] 17.1 mmol/L High 6.0-15.0 [facility] Comment on above: Performed By: #### B BATTERY ENGINEER, BMP, PT, PTT, HS TROP, CBC, TSH3, CK #### [address] Calcium [Mass/Vol] 9.7 mg/dL Normal 8.6-10.3 [facility] Comment on above: Performed By: #### B BATTERY ENGINEER, BMP, PT, PTT, HS TROP, CBC, TSH3, CK #### [facility] [address] Chloride [Moles/Vol] 93 mmol/L Low 98-107 [facility] Comment on above: Performed By: #### B BATTERY ENGINEER, BMP, PT, PTT, HS TROP, CBC, TSH3, CK #### [facility] [address] CO2 [Moles/Vol] 19.4 mmol/L Low 21.0-31.[address] [facility] Comment on above: Performed By: #### B BATTERY ENGINEER, BMP, PT, PTT, HS TROP, CBC, TSH3, CK #### [facility] [address] Creatinine [Mass/Vol] 0.84 mg/dL Normal 0.60-1.20 [facility] Comment on above: Performed By: #### B BATTERY ENGINEER, BMP, PT, PTT, HS TROP, CBC, TSH3, CK #### [facility] [address] Creatinine Clr Calc Pharmacy 46.72 [facility] Comment on above: Performed By: #### B BATTERY ENGINEER, BMP, PT, PTT, HS TROP, CBC, TSH3, CK #### [facility] [address] [place] [address] [place] GFR/1.73 sq M.predicted MDRD (S/P/Bld) [Vol rate/Area] mL/min/{1.73_m2} [facility] Comment on above: Performed By: #### B BATTERY ENGINEER, BMP, PT, PTT, HS TROP, CBC, TSH3, CK #### [facility] [address] Glucose [Mass/Vol] 85 mg/dL Normal 70-100 [facility] Comment on above: Result Comment: [place] Glucose Reference Range is dependent on time and content of last meal. Glucose of more than 200 mg/dL in a nonstressed, ambulatory subject supports the diagnosis of Diabetes Mellitus. ADA recommended reference range Performed By: #### B BATTERY ENGINEER, BMP, PT, PTT, HS TROP, CBC, TSH3, CK #### [facility] [address] Potassium [Moles/Vol] 4.5 mmol/L Normal 3.5-5.1 [facility] Comment on above: Performed By: #### B BATTERY ENGINEER, BMP, PT, PTT, HS TROP, CBC, TSH3, CK #### [facility] [address] Sodium [Moles/Vol] 125 mmol/L Low 136-145 [facility] Comment on above: Performed By: #### B BATTERY ENGINEER, BMP, PT, PTT, HS TROP, CBC, TSH3, CK #### [facility] [address] Urea nitrogen [Mass/Vol] 17 mg/dL Normal 7-25 [facility] Comment on above: Performed By: #### B BATTERY ENGINEER, BMP, PT, PTT, HS TROP, CBC, TSH3, CK #### [facility] [address] Basophils Auto (Bld) [#/Vol] Ordered By: Monique Tierney on 03-05-2023 Basophils (Bld) [#/Vol] 0.1 10*3/uL 0.0-0.2 [facility] Basophils/100 WBC Auto (Bld) Ordered By: Monique Tierney on 03-05-2023 Basophils/100 WBC (Bld) 0.5 % . [facility] Bilirubin Test strip Ql (U)O rdered By: Jemal Jones on 03-05-2023 Bilirubin Ql (U) Negative Negative [facility] CT angio neckon 03-05-2023 CT angio neck [facility] [place] [address] [place] [address] CT Scan Report Signed Patient: Steven Harding MR#: [id number] 1 : 1940 Acct:[id number] Age/Sex: 83 / F ADM Date: 03/05/23 Loc: ER Room: Type: [facility] ER Attending Dr: Copies to: Monique Tierney MD Ordering Provider: Monique Tierney MD Date of Service: 03/05/23 CT/CT angio neck: episodic dizziness, episode 2 wks ago face tinglin ([id number]) CT/CT angio head: episodic dizziness, episode 2 [...] Bethel Snyder M.D.03/05/2023 7:34 PM Dictation Location: [place] [address] Transcribed By: [facility] 03/05/231933 Dictated By: Bethel Snyder DO 03/05/231928 Signed By: 03/05/231933 [facility] CT head/brain mehdi metcalf 03-05 CT head/brain wo [facility] [place] [place] [address] CT Scan Report Signed Patient: Steven Harding MR#: [id number] 1 : 1940 Acct:[id number] Age/Sex: 83 / F ADM Date: 03/05/23 Loc: ER Room: Type: [facility] ER Attending Dr: Copies to: Monique Tiernye MD Ordering Provider: Monique Tierney MD Date [...] Bethel Snyder M.D.03/05/2023 7:29 PM Dictation Location: [place] [address] Transcribed By: [facility] 03/05/231928 Dictated By: Bethel Snyder DO 03/05/231927 Signed By: 03/05/231928 Normal [facility] Calcium [Mass/volume] in Ser um or PlasmaOrdered By: Monique Tierney on 03-05-2023 Calcium [Mass/Vol] 9.7 mg/dL 8.6-10.3 [facility] Carbon dioxide, total [Moles /volume] in Serum or PlasmaOrdered By: Monique Tierney on 03-05-2023 CO2 [Moles/Vol] 19.4 mmol/L 21.0-31.[address] [facility] Chloride [Moles/volume] in S yamilex or PlasmaOrdered By: Monique Tierney on 03-05-2023 Chloride [Moles/Vol] 93 mmol/L 98-107 [facility] Color Auto (U)Ordered By: Sukhi Jones on 03-05-2023 Color (U) Yellow Yellow [facility] Complete Blood Count Auto Di ffon 03-05-2023 Basophils (Bld) [#/Vol] 0.1 10*3/uL Normal 0.0-0.2 [facility] Comment on above: Result Comment: PERF ORMED BY: [place] [address] PATHOLOGIST CUTTER GRINDER OPERATOR RAQUEL LOPEZ M.D. Performed By: #### B BATTERY ENGINEER, BMP, PT, PTT, HS TROP, CBC, TSH3, CK #### [address] Basophils/100 WBC (Bld) 0.5 % Normal . [facility] Comment on above: Performed By: #### B BATTERY ENGINEER, BMP, PT, PTT, HS TROP, CBC, TSH3, CK #### [address] Eosinophils (Bld) [#/Vol] 0.3 10*3/uL Normal 0.0-0.45 [facility] Comment on above: Performed By: #### B BATTERY ENGINEER, BMP, PT, PTT, HS TROP, CBC, TSH3, CK #### [address] Eosinophils/100 WBC (Bld) 2.8 % Normal . [facility] Comment on above: Performed By: #### B BATTERY ENGINEER, BMP, PT, PTT, HS TROP, CBC, TSH3, CK #### [address] Erythrocyte distribution width (RBC) [Ratio] 12.8 % Normal 11.9-15.3 [facility] Comment on above: Performed By: #### B BATTERY ENGINEER, BMP, PT, PTT, HS TROP, CBC, TSH3, CK #### [address] Hematocrit (Bld) [Volume fraction] 39.9 % Normal 34.0-46.4 [facility] Comment on above: Performed By: #### B BATTERY ENGINEER, BMP, PT, PTT, HS TROP, CBC, TSH3, CK #### [address] Hemoglobin (Bld) [Mass/Vol] 13.6 g/dL Normal 11.8-15.4 [facility] Comment on above: Performed By: #### B BATTERY ENGINEER, BMP, PT, PTT, HS TROP, CBC, TSH3, CK #### [address] Lymphocytes (Bld) [#/Vol] 1.7 10*3/uL Normal 1.00-4.8 [facility] Comment on above: Performed By: #### B BATTERY ENGINEER, BMP, PT, PTT, HS TROP, CBC, TSH3, CK #### [address] Lymphocytes/100 WBC (Bld) 14.7 % Normal . [facility] Comment on above: Performed By: #### B BATTERY ENGINEER, BMP, PT, PTT, HS TROP, CBC, TSH3, CK #### [address] MCH (RBC) [Entitic mass] 31.3 pg Normal 24.7-34.3 [facility] Comment on above: Performed By: #### B BATTERY ENGINEER, BMP, PT, PTT, HS TROP, CBC, TSH3, CK #### [address] MCV (RBC) [Entitic vol] 91.9 fL Normal 80-100 [facility] Comment on above: Performed By: #### B BATTERY ENGINEER, BMP, PT, PTT, HS TROP, CBC, TSH3, CK #### [address] Mean Corpuscular HGB Conc 34.0 g/dL Normal 32.0-35.0 [facility] Comment on above: Performed By: #### B BATTERY ENGINEER, BMP, PT, PTT, HS TROP, CBC, TSH3, CK #### [address] Monocytes (Bld) [#/Vol] 0.6 10*3/uL Normal 0.0-0.8 [facility] Comment on above: Performed By: #### B BATTERY ENGINEER, BMP, PT, PTT, HS TROP, CBC, TSH3, CK #### [address] Monocytes/100 WBC (Bld) 18.39 % Normal 0.00-20.00 [facility] Comment on above: Performed By: #### B BATTERY ENGINEER, BMP, PT, PTT, HS TROP, CBC, TSH3, CK #### [address] Monocytes/100 WBC (Bld) 5.4 % Normal . [facility] Comment on above: Performed By: #### B BATTERY ENGINEER, BMP, PT, PTT, HS TROP, CBC, TSH3, CK #### [address] Neutrophils (Bld) [#/Vol] 8.7 10*3/uL High 1.8-7.7 [facility] Comment on above: Performed By: #### B BATTERY ENGINEER, BMP, PT, PTT, HS TROP, CBC, TSH3, CK #### [address] Neutrophils/100 WBC (Bld) 76.6 % Normal . [facility] Comment on above: Performed By: #### B BATTERY ENGINEER, BMP, PT, PTT, HS TROP, CBC, TSH3, CK #### [place] [address] [place] NRBC% 0.1 /100{WBC} Normal 0-0.5 [facility] Comment on above: Performed By: #### B BATTERY ENGINEER, BMP, PT, PTT, HS TROP, CBC, TSH3, CK #### [address] Platelet mean volume (Bld) [Entitic vol] 7.5 fL Normal 6.3-10.7 [facility] Comment on above: Performed By: #### B BATTERY ENGINEER, BMP, PT, PTT, HS TROP, CBC, TSH3, CK #### [place] [address] [place] Platelets (Bld) [#/Vol] 285 10*3/uL Normal 150-450 [facility] Comment on above: Performed By: #### B BATTERY ENGINEER, BMP, PT, PTT, HS TROP, CBC, TSH3, CK #### [facility] [address] RBC (Bld) [#/Vol] 4.34 10*6/uL Normal 3.60-5.00 [facility] Comment on above: Performed By: #### B BATTERY ENGINEER, BMP, PT, PTT, HS TROP, CBC, TSH3, CK #### [facility] [address] WBC (Bld) [#/Vol] 11.4 10*3/uL Normal 3.8-11.6 [facility] Comment on above: Performed By: #### B BATTERY ENGINEER, BMP, PT, PTT, HS TROP, CBC, TSH3, CK #### [facility] [address] Creatine Kinaseon 03-05-2023 CK [Catalytic activity/Vol] 18 U/L Low [facility] Comment on above: Performed By: #### B BATTERY ENGINEER, BMP, PT, PTT, HS TROP, CBC, TSH3, CK #### [facility] [address] Creatine kinase [Enzymatic a ctivity/volume] in Serum or PlasmaOrdered By: Monique Tierney on 03-05-2023 CK [Catalytic activity/Vol] 18 U/L [facility] Creatinine [Mass/volume] in Serum or PlasmaOrdered By: Monique Tierney on 03-05-2023 Creatinine [Mass/Vol] 0.84 mg/dL 0.60-1.20 [facility] ECG 12 lead ECGon 03-05-2023 ECG 12 lead ECG [facility] [place] [address] [place] [address] Electrocardiograph Report Signed Patient: Steven Harding MR#: [id number] 1 : 1940 Acct:[id number] Age/Sex: 83 / F ADM Date: 03/05/23 Loc: 3T Room: [address] [place] [address] Type: ADM INOo Attending Dr: Chuck Chacon [...] fascicular block Confirmed by Hoang Mancia DO ([id number]) on 03/06/2023 8:08:36 PM Referred By: Electronically Signed By:Hoang Mancia DO Transcribed By: MUS Signed By Hoang Mancia DO 2007 Normal [facility] Eosinophils Auto (Bld) [#/Vo l]Ordered By: Monique Tierney on 03-05-2023 Eosinophils (Bld) [#/Vol] 0.3 10*3/uL 0.0-0.45 [facility] Eosinophils/100 WBC Auto (Bl d)Ordered By: Monique Tierney on 03-05-2023 Eosinophils/100 WBC (Bld) 2.8 % . [facility] Erythrocyte distribution wid th Auto (RBC) [Ratio]Ordered By: Monique Tierney on 03-05-2023 Erythrocyte distribution width (RBC) [Ratio] 12.8 % 11.9-15.3 [facility] Glucose [Mass/volume] in Ser um or PlasmaOrdered By: Monique Tierney on 03-05-2023 Glucose [Mass/Vol] 85 mg/dL 70-100 [facility] Comment on above: ADA recommended refe rence rangeRandom Glucose Reference Range is dependent on time and content of last meal. Glucose of more than 200 mg/dL in a nonstressed, ambulatory subject supports the diagnosis of Diabetes Mellitus. Hematocrit Auto (Bld) [Volum e fraction]Ordered By: Monique Tierney on 03-05-2023 Hematocrit (Bld) [Volume fraction] 39.9 % 34.0-46.4 [facility] Hemoglobin [Mass/volume] in BloodOrdered By: Monique Tierney on 03-05-2023 Hemoglobin (Bld) [Mass/Vol] 13.6 g/dL 11.8-15.4 [facility] INR in Platelet poor plasma by Coagulation assayOrdered By: Monique Tierney on 03-05-2023 INR Coag (PPP) [Relative time] 0.9 {INR} [facility] Comment on above: INR Therapeutic Rang e [...] 03-05-2023 Ketones (U) [Mass/Vol] Trace Negative [facility] Leukocytes [#/volume] correc jazmyne for nucleated erythrocytes in Blood by Automated counOrdered By: Monique Tierney on 03-05-2023 WBC corrected for nucl RBC Auto (Bld) [#/Vol] 11.4 10*3/uL 3.8-11.6 [facility] Lymphocytes Auto (Bld) [#/Vo l]Ordered By: Monique Tierney on 03-05-2023 Lymphocytes (Bld) [#/Vol] 1.7 10*3/uL 1.00-4.8 [facility] Lymphocytes/100 WBC Auto (Bl d)Ordered By: Monique Tierney on 03-05-2023 Lymphocytes/100 WBC (Bld) 14.7 % . [facility] MCH Auto (RBC) [Entitic mass ]Ordered By: Monique Tierney on 03-05-2023 MCH (RBC) [Entitic mass] 31.3 pg 24.7-34.3 [facility] MCHC Auto (RBC) [Mass/Vol]Or dered By: Monique Tierney on 03-05-2023 MCHC (RBC) [Mass/Vol] 34.0 g/dL 32.0-35.0 [facility] MCV Auto (RBC) [Entitic vol] Ordered By: Monique Tierney on 03-05-2023 MCV (RBC) [Entitic vol] 91.9 fL 80-100 [facility] Monocyte distribution width [Entitic volume] in Blood by AutomatedOrdered By: Monique Tierney on 03-05-2023 Monocyte distribution width Auto (Bld) [Entitic vol] 18.39 % 0.00-20.00 [facility] Monocytes Auto (Bld) [#/Vol] Ordered By: Monique Tierney on 03-05-2023 Monocytes (Bld) [#/Vol] 0.6 10*3/uL 0.0-0.8 [facility] Monocytes/100 WBC Auto (Bld) Ordered By: Monique Tierney on 03-05-2023 Monocytes/100 WBC (Bld) 5.4 % . [facility] Natriuretic peptide B [Mass/ Vol]Ordered By: Monique Tierney on 03-05-2023 Natriuretic peptide B (Bld) [Mass/Vol] 42.0 pg/mL 5-100 [facility] Neutrophils Auto (Bld) [#/Vo l]Ordered By: Monique Tierney on 03-05-2023 Neutrophils (Bld) [#/Vol] 8.7 10*3/uL 1.8-7.7 [facility] Neutrophils/100 WBC Auto (Bl d)Ordered By: Monique Tierney on 03-05-2023 Neutrophils/100 WBC (Bld) 76.6 % . [facility] Nitrite Test strip Ql (U)Ord ered By: Jemal Jones on 03-05-2023 Nitrite Ql (U) Negative Negative [facility] No Panel InformationOrdered By: Monique Tierney on 03-05-2023 Estimated GFR (CKD-EPI) > 60.0 mL/Min [facility] Pharmacy Creatinine Clearance (Chem 46.72 [facility] Nucleated erythrocytes [Pres ence] in Blood by Automated countOrdered By: Monique Tierney on 03-05-2023 Nucleated RBC Auto Ql (Bld) 0.1 /100{WBC} 0-0.5 [facility] Partial Thromboplastin Timeo n 03-05-2023 aPTT Coag (Bld) [Time] 25.4 s Normal 25.1-36.5 [facility] Comment on above: Result Comment: A he matocrit value greater than 55% may lead to inaccurate results in coagulation testing. Patients having hematocrit values >55% require a special collection tube for coagulation studies. Please contact the laboratory at [phone] for redraw instructions. PERFORMED BY: [facility] [address] [place] [address] PATHOLOGIST CUTTER GRINDER OPERATOR RAQUEL LOPEZ M.D. Performed By: #### B BATTERY ENGINEER, BMP, PT, PTT, HS TROP, CBC, TSH3, CK #### [facility] [address] [place] [address] [facility] Platelet mean volume Auto (B ld) [Entitic vol]Ordered By: Monique Tierney on 03-05-2023 Platelet mean volume (Bld) [Entitic vol] 7.5 fL 6.3-10.7 [facility] Platelets Auto (Bld) [#/Vol] Ordered By: Monique Tierney on 03-05-2023 Platelets (Bld) [#/Vol] 285 10*3/uL 150-450 [facility] Potassium [Moles/volume] in Serum or PlasmaOrdered By: Monique Tierney on 03-05-2023 Potassium [Moles/Vol] 4.5 mmol/L 3.5-5.1 [facility] Protein Auto test strip (U) [Mass/Vol]Ordered By: Jemal Jones on 03-05-2023 Protein (U) [Mass/Vol] Negative Negative [facility] Prothrombin Time INRon 03-05 INR Coag (PPP) [Relative time] 0.9 {INR} Normal [facility] Comment on above: Result Comment: INR Therapeutic [...] 3 - 4.5 Performed By: #### B BATTERY ENGINEER, BMP, PT, PTT, HS TROP, CBC, TSH3, CK #### [facility] [address] [place] [address] [facility] PT Coag (PPP) [Time] 10.9 s Normal 9.0-12.9 [facility] Comment on above: Result Comment: A he matocrit value greater than 55% may lead to inaccurate results in coagulation testing. Patients having hematocrit values >55% require a special collection tube for coagulation studies. Please contact the laboratory at [phone] for redraw instructions. Performed By: #### B BATTERY ENGINEER, BMP, PT, PTT, HS TROP, CBC, TSH3, CK #### [facility] [address] [place] [address] [facility] Prothrombin time (PT)Ordered By: Monique Tierney on 03-05-2023 PT Coag (PPP) [Time] 10.9 s 9.0-12.9 [facility] Comment on above: A hematocrit value g reater than 55% may lead to inaccurate results in coagulation testing. Patients having hematocrit values >55% require a special collection tube for coagulation studies. Please contact the laboratory at [phone] for redraw instructions. RBC Auto (Bld) [#/Vol]Ordere d By: Monique Tierney on 03-05-2023 RBC (Bld) [#/Vol] 4.34 10*6/uL 3.60-5.00 [facility] Serum or plasma anion gap de terminationOrdered By: Monique Tierney on 03-05-2023 Anion gap [Moles/Vol] 17.1 mmol/L 6.0-15.0 [facility] Sodium [Moles/volume] in Ser um or PlasmaOrdered By: Monique Tierney on 03-05-2023 Sodium [Moles/Vol] 125 mmol/L 136-145 [facility] Specific gravity Auto test s trip (U) [Rel density]Ordered By: Jemal Jones on 03-05-2023 Specific gravity (U) [Rel density] 1.015 1.001-1.03 0 [facility] Thyroid Stimulating Hormoneo n 03-05-2023 TSH Qn 0.01 m[IU]/L Low 0.45-5.33 [facility] [facility] Comment on above: Result Comment: PERF ORMED BY: [place] [address] PATHOLOGIST CUTTER GRINDER OPERATOR RAQUEL LOPEZ M.D. Performed By: #### B BATTERY ENGINEER, BMP, PT, PTT, HS TROP, CBC, TSH3, CK #### [facility] [address] [place] [address] [facility] Thyrotropin [Units/volume] i n Serum or PlasmaOrdered By: Monique Tierney on 03-05-2023 TSH Qn 0.01 m[IU]/L 0.45-5.33 [facility] Troponin I High Sensitivityo n 03-05-2023 Troponin I High Sensitivity 6.3 pg/mL Normal 0.0-15.0 [facility] Comment on above: Result Comment: PERF ORMED BY: [place] [address] PATHOLOGIST CUTTER GRINDER OPERATOR RAQUEL LOPEZ M.D. Performed By: #### B BATTERY ENGINEER, BMP, PT, PTT, HS TROP, CBC, TSH3, CK #### [facility] [address] [place] [address] [place] Troponin I.cardiac [Mass/vol ume] in Serum or Plasma by Detection limit <= 0.01 ng/Ordered By: Monique Tierney on 03-05-2023 Troponin I.cardiac DL <= 0.01 ng/mL [Mass/Vol] 6.3 pg/mL 0.0-15.0 [facility] Urea nitrogen [Mass/volume] in Serum or PlasmaOrdered By: Monique Tierney on 03-05-2023 Urea nitrogen [Mass/Vol] 17 mg/dL 7-25 [facility] Urine bacteria detection by automated methodOrdered By: Jemal Jones on 03-05-2023 Bacteria Auto Ql (U) 1+ None Seen [facility] Urine clarity by refractomet ry automatedOrdered By: Jemal Jones on 03-05-2023 Clarity Refractometry automated (U) Clear Clear [facility] Urine glucose measurement by automated test strip (mass/volume)Ordered By: Jemal Jones on 03-05-2023 Glucose Auto test strip (U) [Mass/Vol] Normal mg/dL Normal [facility] Urine hemoglobin detection b y automated test stripOrdered By: Jemal Jones on 03-05-2023 Hemoglobin Auto test strip Ql (U) Negative Negative [facility] Urine leukocyte esterase det ection by automated test stripOrdered By: Jemal Jones on 03-05-2023 Leukocyte esterase Auto test strip Ql (U) 1+ Negative [facility] Urine sediment renal epithel ial cell count by microscopy (number/high power field)Ordered By: Jemal Jones on 03-05-2023 Epithelial cells.renal LM.HPF (Urine sed) [#/Area] Rare [HPF] 0-1 [facility] Urobilinogen Auto test strip (U) [Mass/Vol]Ordered By: Jemal Jones on 03-05-2023 Urobilinogen (U) [Mass/Vol] Normal mg/dL Normal [facility] WBC Auto (Bld) [#/Vol]Ordere d By: Monique Tierney on 03-05-2023 WBC (Bld) [#/Vol] 11.4 10*3/uL 3.8-11.6 [facility] XR chest 2V*on 03-05-2023 XR chest 2V* [facility] [place] [address] XRay Report Signed Patient: Steven Harding MR#: [id number] 1 : 1940 Acct:[id number] Age/Sex: 83 / F ADM Date: 03/05/23 Loc: ER Room: Type: [facility] ER Attending Dr: Copies to: Monique Tierney [...] Bethel Snyder M.D.03/05/2023 7:27 PM Dictation Location: [place] [address] Transcribed By: [facility] 03/05/231926 Dictated By: Bethel Snyder DO 03/05/231925 Signed By: 03/05/231926 Normal [facility] pH Auto test strip (U)Ordere d By: Jemal Jones on 03-05-2023 pH (U) 6.0 [pH] 5.0-9.0 [facility] Office Visit (Cardiology)on 02-16-2023 Follow-up visit Diagnoses/Problems [...] Weight Tips; Status:Complete - Retrospective Authorization; Done: 16Feb2023 Some eating tips that can help you lose weight.; Status:Complete - Retrospective Authorization; Done: 16Feb2023 PMH: Coronary artery disease involving resighini coronary artery of resighini heart without angina pectoris, Mixed hyperlipidemia Renew: [...] FOR CHEST PAIN.CALL 911 IF PAIN PERSISTS. BATTERY ENGINEER Thyroid 60 MG Oral TabletTAKE 1 TABLET [...] alcoho (more content not included)... Normal [place] [employer] Tobacco Screening.on 023 Fall risk assessment a) No falls within the last year [facility] [employer] jayne 250 DO Work Phone: Tobacco use status CP b) No -[facility] [employer] 250 DO Work Phone: REVERSE T3on 10-17-2022 Reverse T3, Serum 18.8 ng/dL Normal 9.2-24.1 [facility] Comment on above: Performed By: #### R EVRT3 #### [facility] [address] [place] [address] [address] Ellie Smith T3, TOTAL (TRIIODOTHYRONINE) on 10-06-2022 T3, TOTAL 137 ng/dL Normal 71-180 [facility] Comment on above: Performed By: #### P OCGLUC #### [facility] [address] [place] [address] [address] Ellie Smith FREE T3on 10-05-2022 FREE T3 3.03 pg/mlL Normal 2.18-3.98 [facility] Comment on above: Performed By: #### L ACT #### [facility] [address] [place] [address] [address] Ellie Smith FREE T4on 10-05-2022 Free T4 [Mass/Vol] 1.02 ng/dL Normal 0.76-1.46 [facility] Comment on above: Performed By: #### F T4 #### [facility] [address] [place] [address] [address] Ellie Smith TSHon 10-05-2022 TSH 0.032 uIU/mL Critically low 0.358-3.74 0 [facility] Comment on above: Performed By: #### L ACT #### [facility] [address] [place] [address] [address] Ellie Smith Office Visit (Cardiology)on 08-24-2022 [...] Done: 24Aug2022 PMH: Coronary artery disease involving resighini coronary artery of resighini heart without angina pectoris Renew: Aspirin EC 81 MG Oral Tablet Delayed Release; TAKE 1 TABLET DAILY Renew: Clopidogrel Bisulfate 75 MG Oral Tablet; TAKE 1 TABLET BY MOUTH DAILY PMH: Coronary artery disease involving resighini coronary artery of resighini heart without angina pectoris, Hypertension, benign Renew: Losartan Potassium 100 MG Oral Tablet; TAKE 1 TABLET DAILY PMH: Coronary artery disease involving resighini coronary artery of resighini heart without angina pectoris, Mixed hyperlipidemia Renew: Atorvastatin Calcium 80 MG Oral Tablet; TAKE 1 TABLET AT BEDTIME SocHx: Former smoker Tobacco Use Screening; Status:Complete; Done: [id number] Patient Instructions Please bring all medicines, vitamins, [...] FOR CHEST PAIN.CALL 911 IF PAIN PERSISTS. BATTERY ENGINEER Thyroid 60 MG Oral TabletTAKE 1 TABLET [...] Respirat (more content not included)... Normal [employer] Tobacco Screening.on 023 Adult depression screening assessment [facility] [employer] 250 DO Work Phone: Fall risk assessment a) No falls within the last year [facility] [employer] 250 DO Work Phone: Tobacco use status CPHS b) No -[facility] [employer] 250 DO Work Phone: GLYCOHEMOGLOBIN A1Con 2022 ADA RECOMMENDATION SEE BELOW Normal [facility] Comment on above: Result Comment: ADA RECOMMENDED LIMIT 4.0 - 6.0 ADA THERAPEUTIC TARGET < 7.0 ACTION SUGGESTED > 7.0 Performed By: #### A 1C #### [facility] [address] [place] [address] Dr. Ellie Smith Glucose [Mass/Vol] 114 mg/dL Normal [facility] Comment on above: Performed By: #### A 1C #### [facility] [address] [place] [address] [address] Ellie Smith HbA1c (Bld) [Mass fraction] 5.6 % Normal 4.5-6.2 [facility] Comment on above: Performed By: #### A 1C #### [facility] [address] [place] [address] [address] Ellie Smith LIPID PROFILEon 08-15-2022 CHOL-HDL RATIO NORM SEE BELOW Normal [facility] Comment on above: Result Comment: 3.3 - 4.4 LOW RISK 4.4 - 7.1 AVERAGE RISK 7.1 - 11.0 MODERATE RISK >11.0 HIGH RISK Performed By: #### R EVRT3 #### [facility] [address] [place] [address] [address] Ellie Smith Cholesterol [Mass/Vol] 116 mg/dL Normal <=[address] [facility] Comment on above: Performed By: #### R EVRT3 #### [facility] [address] [place] [address] [address] Ellie Smith Cholesterol in HDL [Mass/Vol] 60 mg/dL Normal 40-60 [facility] Comment on above: Performed By: #### R EVRT3 #### [facility] [address] [place] [address] [address] Ellie Smith Cholesterol in LDL [Mass/Vol] 46.0 mg/dL Normal [facility] Comment on above: Performed By: #### R EVRT3 #### [facility] [address] [place] [address] [address] Ellie Smith Cholesterol.total/Chol esterol in HDL [Mass ratio] 1.9 {ratio} Normal [facility] Comment on above: Performed By: #### R EVRT3 #### [facility] [address] [address] [address] Ellie Smith HDL NORMAL > or = 60 mg/dl - LO W CARDIOVASCULAR RISK <40 mg/dl - HIGH CARDIOVASCULAR RISK Normal [facility] Comment on above: Performed By: #### R EVRT3 #### [facility] [address] [address] [address] Ellie Smith LDL CALC NORMAL SEE BELOW Normal [facility] Comment on above: Result Comment: <100 mg/dl OPTIMAL 100 - 129 mg/dl NEAR OR ABOVE OPTIMAL 130 - 159 mg/dl BORDERLINE HIGH 160 - 189 mg/dl HIGH >190 mg/dl VERY HIGH Performed By: #### R EVRT3 #### [facility] [address] [place] [address] Dr. Ellie Smith Triglyceride [Mass/Vol] 50 mg/dL Normal <=150 [facility] Comment on above: Performed By: #### R EVRT3 #### [facility] [address] [place] [address] Dr. Ellie Smith VLDL CALC 10.0 mg/dL Normal [facility] Comment on above: Performed By: #### R EVRT3 #### [facility] [address] [place] [address] Dr. Ellie Smith PROF 14(COMP METB)on 023 Albumin [Mass/Vol] 3.9 g/dL Normal 3.4-5.0 [facility] Comment on above: Performed By: #### R EVRT3 #### [facility] [address] [place] [address] Dr. Ellie Smith Albumin/Globulin [Mass ratio] 1.2 {ratio} Normal [facility] Comment on above: Performed By: #### R EVRT3 #### [facility] [address] [place] [address] Dr. Ellie Smith ALP [Catalytic activity/Vol] 56 U/L Normal 46-116 [facility] Comment on above: Performed By: #### R EVRT3 #### [facility] [address] [place] [address] Dr. Ellie Smith ALT [Catalytic activity/Vol] 27 U/L Normal 14-59 [facility] Comment on above: Performed By: #### R EVRT3 #### [facility] [address] [place] [address] Dr. Ellie Smith Anion gap [Moles/Vol] 14.1 mmol/L Normal [facility] Comment on above: Performed By: #### R EVRT3 #### [facility] [address] [place] [address] Dr. Ellie Smith AST [Catalytic activity/Vol] 18 U/L Normal 15-37 [facility] Comment on above: Performed By: #### R EVRT3 #### [facility] [address] [place] [address] Dr. Ellie Smith Bilirubin [Mass/Vol] 0.4 mg/dL Normal 0.2-1.0 [facility] Comment on above: Performed By: #### R EVRT3 #### [facility] [address] [place] [address] Dr. Ellie Smith Calcium [Mass/Vol] 9.2 mg/dL Normal 8.5-10.1 [facility] Comment on above: Performed By: #### R EVRT3 #### [facility] [address] [place] [address] Dr. Ellie Smith Chloride [Moles/Vol] 106 mmol/L Normal 98-107 [facility] Comment on above: Performed By: #### R EVRT3 #### [facility] [address] [place] [address] Dr. Ellie Smith CO2 [Moles/Vol] 26.1 mmol/L Normal 21.0-32.0 [facility] Comment on above: Performed By: #### R EVRT3 #### [facility] [address] [place] [address] Dr. Ellie Smith Creatinine [Mass/Vol] 0.68 mg/dL Normal 0.55-1.02 [facility] Comment on above: Performed By: #### R EVRT3 #### [facility] [address] [place] [address] Dr. Ellie Smith EGFR-AF MEXICAN >60 Normal >=60 [facility] Comment on above: Performed By: #### R EVRT3 #### [facility] [address] [place] [address] Dr. Ellie Smith EGFR-NON AF MEXICAN >60 Normal >=60 [facility] Comment on above: Performed By: #### R EVRT3 #### [facility] [address] [place] [address] Dr. Ellie Smith Globulin (S) [Mass/Vol] 3.2 g/dL Normal [facility] Comment on above: Performed By: #### R EVRT3 #### [facility] [address] [place] [address] Dr. Ellie Smith Glucose [Mass/Vol] 99 mg/dL Normal 74-106 [facility] Comment on above: Performed By: #### R EVRT3 #### [facility] [address] [place] [address] Dr. Ellie Smith Potassium [Moles/Vol] 4.2 mmol/L Normal 3.5-5.1 [facility] Comment on above: Performed By: #### R EVRT3 #### [facility] [address] [place] [address] Dr. Ellie Smith Protein [Mass/Vol] 7.1 g/dL Normal 6.4-8.2 [facility] Comment on above: Performed By: #### R EVRT3 #### [facility] [address] [place] [address] Dr. Ellie Smith Sodium [Moles/Vol] 142 mmol/L Normal 136-145 [facility] Comment on above: Performed By: #### R EVRT3 #### [facility] [address] [place] [address] Dr. Ellie Smith Urea nitrogen [Mass/Vol] 16.0 mg/dL Normal 7.0-18.0 [facility] Comment on above: Performed By: #### R EVRT3 #### [facility] [address] [place] [address] Dr. Ellie Smith Urea nitrogen/Creatinine [Mass ratio] 23.5 mg/mg Normal [facility] Comment on above: Performed By: #### R EVRT3 #### [facility] [address] [place] [address] Dr. Ellie Smith REVERSE T3on 04-15-2022 Reverse T3, Serum 15.4 ng/dL Normal 9.2-24.1 [facility] Comment on above: Result Comment: This test was developed and its performance characteristics determined by [employer]. It has not been cleared or approved by the Food and Drug Administration. Performed By: #### L ACT #### [facility] [address] [place] [address] Dr. Ellie Smith T3, TOTAL (TRIIODOTHYRONINE) on 04-13-2022 T3, TOTAL 144 ng/dL Normal 71-180 [facility] Comment on above: Performed By: #### A 1C #### [facility] [address] [place] [address] Dr. Ellie Smith FREE T3on 04-12-2022 FREE T3 2.93 pg/mlL Normal 2.18-3.98 [facility] Comment on above: Performed By: #### T SH, FT3 #### [facility] [address] [place] [address] Dr. Ellie Smith FREE T4on 04-12-2022 Free T4 [Mass/Vol] 0.89 ng/dL Normal 0.76-1.46 [facility] Comment on above: Performed By: #### R EVRT3 #### [facility] [address] [place] [address] Dr. Ellie Smith TSHon 04-12-2022 TSH 0.116 uIU/mL Critically low 0.358-3.74 0 [facility] Comment on above: Performed By: #### T SH, FT3 #### [facility] [address] [place] [address] Dr. Ellie Smith LIPID PROFILEon 03-29-2022 CHOL-HDL RATIO NORM SEE BELOW Normal [facility] Comment on above: Result Comment: 3.3 - 4.4 LOW RISK 4.4 - 7.1 AVERAGE RISK 7.1 - 11.0 MODERATE RISK >11.0 HIGH RISK Performed By: #### A 1C #### [facility] [address] [place] [address] Dr. Ellie Smith Cholesterol [Mass/Vol] 102 mg/dL Normal <=[address] [facility] Comment on above: Performed By: #### A 1C #### [facility] [address] [place] [address] Dr. Ellie Smith Cholesterol in HDL [Mass/Vol] 56 mg/dL Normal 40-60 [facility] Comment on above: Performed By: #### A 1C #### [facility] [address] [place] [address] Dr. Ellie Smith Cholesterol in LDL [Mass/Vol] 36.8 mg/dL Normal [facility] Comment on above: Performed By: #### A 1C #### [facility] [address] [address] [address] Ellie Smith Cholesterol.total/Chol esterol in HDL [Mass ratio] 1.8 {ratio} Normal [facility] Comment on above: Performed By: #### A 1C #### [facility] [address] [address] [address] Ellie Smith HDL NORMAL > or = 60 mg/dl - LO W CARDIOVASCULAR RISK <40 mg/dl - HIGH CARDIOVASCULAR RISK Normal [facility] Comment on above: Performed By: #### A 1C #### [facility] [address] [place] [address] Dr. Ellie Smith LDL CALC NORMAL SEE BELOW Normal [facility] Comment on above: Result Comment: <100 mg/dl OPTIMAL 100 - 129 mg/dl NEAR OR ABOVE OPTIMAL 130 - 159 mg/dl BORDERLINE HIGH 160 - 189 mg/dl HIGH >190 mg/dl VERY HIGH Performed By: #### A 1C #### [facility] [address] [place] [address] Dr. Ellie Smith Triglyceride [Mass/Vol] 46 mg/dL Normal <=150 [facility] Comment on above: Performed By: #### A 1C #### [facility] [address] [place] [address] Dr. Ellie Smith VLDL CALC 9.2 mg/dL Normal [facility] Comment on above: Performed By: #### A 1C #### [facility] [address] [place] [address] Dr. Ellie Cardenas 03-29-2022 AST [Catalytic activity/Vol] 17 U/L Normal 15-37 [facility] Comment on above: Performed By: #### A 1C #### [facility] [address] [place] [address] Dr. Ellie Cotton 03-29-2022 ALT [Catalytic activity/Vol] 30 U/L Normal 14-59 [facility] Comment on above: Performed By: #### A 1C #### [facility] [address] [place] [address] Dr. 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 Hooks Jan 18, 2022: dCX PCI/[place] 2.5/34mm, 2.75/8mm mRCA PCI/[place] 3.0/12 AND 3.5/30mm Type B dissection Feb 03, 2022 Staged LAD PCI/[place] 2.25/26mm Diag2 provisional PTCA Daily activity 4 [...] Status:Complete; Done: 17Mar2022 Coronary artery disease involving resighini coronary artery of resighini heart without angina pectoris, Echocardiogram abnormal Disability [...] CHES (more content not included)... Normal [employer] Tobacco Screening.on 022 Adult depression screening assessment No [facility] [employer] 600 DO Work Phone: Fall risk assessment a) No falls within the last year [facility] [employer] 600 DO Work Phone: Tobacco use status CPHS b) No [facility] [employer] 600 DO Work Phone: PHQ-2 VITALSon 02-15-2022 Adult depression screening assessment Yes [facility] [employer] 250 DO Work Phone: Adult depression screening assessment No [facility] [employer]ayne 250 DO Work Phone: Fall risk assessment a) No falls within the last year [facility] [employer] 250 DO Work Phone: Tobacco use status CPHS b) No [facility] [employer] jayne 250 DO Work Phone: PHQ-2 VITALS 0-Not at all [facility] [employer] 250 DO Work Phone: PHQ-2 VITALS 3-Nearly every day [facility] [employer] 250 DO Work Phone: PHQ-2 VITALS 1-Several days [facility] [employer] 250 DO Work Phone: PHQ-2 VITALS Very Difficult [facility] [employer] 250 DO Work Phone: Activated partial thrombopla stin time (aPTT) in platelet poor plasma by coagulation aOrdered By: Diony Hooks on 02-03-2022 aPTT Coag (PPP) [Time] 31.4 s 25.1-36.5 [facility] Basophils Auto (Bld) [#/Vol] Ordered By: Diony Hooks on 02-03-2022 Basophils (Bld) [#/Vol] 0.1 10*3/uL 0.0-0.2 [facility] Basophils/100 WBC Auto (Bld) Ordered By: Diony Hooks on 02-03-2022 Basophils/100 WBC (Bld) 0.6 % . [facility] Blood hemoglobin measurement (mass/volume)Ordered By: Diony Hooks on 02-03-2022 Hemoglobin (Bld) [Mass/Vol] 14.3 g/dL 11.8-15.4 [facility] Blood leukocytes automated c ount (number/volume)Ordered By: Diony Hooks on 02-03-2022 WBC (Bld) [#/Vol] 12.0 10*3/uL 4.5-11.0 [facility] Eosinophils Auto (Bld) [#/Vo l]Ordered By: Diony Hooks on 02-03-2022 Eosinophils (Bld) [#/Vol] 0.4 10*3/uL 0.0-0.45 [facility] Eosinophils/100 WBC Auto (Bl d)Ordered By: Diony Hooks on 02-03-2022 Eosinophils/100 WBC (Bld) 3.4 % . [facility] Erythrocyte distribution wid th Auto (RBC) [Ratio]Ordered By: Diony Hooks on 02-03-2022 Erythrocyte distribution width (RBC) [Ratio] 14.4 % 11.9-15.3 [facility] Hematocrit Auto (Bld) [Volum e fraction]Ordered By: Diony Hooks on 02-03-2022 Hematocrit (Bld) [Volume fraction] 42.4 % 34.0-46.4 [facility] Laboratory - CoagulationOrde red By: Diony Hooks on 02-03-2022 PT Coag (PPP) [Time] 10.9 s 9.0-12.9 [facility] - Hematology and Cell countsOrdered By: Diony Hooks on 02-03-2022 Nucleated RBC/100 WBC (Bld) [Ratio] 0.0 % 0-0.5 [facility] Lymphocytes Auto (Bld) [#/Vo l]Ordered By: Diony Hooks on 02-03-2022 Lymphocytes (Bld) [#/Vol] 2.1 10*3/uL 1.00-4.8 [facility] Lymphocytes/100 WBC Auto (Bl d)Ordered By: Diony Hooks on 02-03-2022 Lymphocytes/100 WBC (Bld) 17.5 % . [facility] MCH Auto (RBC) [Entitic mass ]Ordered By: Diony Hooks on 02-03-2022 MCH (RBC) [Entitic mass] 31.5 pg 24.7-34.3 [facility] MCHC Auto (RBC) [Mass/Vol]Or dered By: Diony Hooks on 02-03-2022 MCHC (RBC) [Mass/Vol] 33.8 g/dL 32.0-35.0 [facility] MCV Auto (RBC) [Entitic vol] Ordered By: Diony Hooks on 02-03-2022 MCV (RBC) [Entitic vol] 93.2 fL 80-100 [facility] Monocytes Auto (Bld) [#/Vol] Ordered By: Diony Hooks on 02-03-2022 Monocytes (Bld) [#/Vol] 0.5 10*3/uL 0.0-0.8 [facility] Monocytes/100 WBC Auto (Bld) Ordered By: Diony Hooks on 02-03-2022 Monocytes/100 WBC (Bld) 4.4 % . [facility] Neutrophils Auto (Bld) [#/Vo l]Ordered By: Diony Hooks on 02-03-2022 Neutrophils (Bld) [#/Vol] 8.9 10*3/uL 1.8-7.7 [facility] Neutrophils/100 WBC Auto (Bl d)Ordered By: Diony Hooks on 02-03-2022 Neutrophils/100 WBC (Bld) 74.1 % . [facility] Platelet mean volume Auto (B ld) [Entitic vol]Ordered By: Diony Hooks on 02-03-2022 Platelet mean volume (Bld) [Entitic vol] 7.5 fL 6.3-10.7 [facility] Platelet poor plasma interna tional normalized ratio (INR) by coagulation assay (relatOrdered By: Diony Hooks on 02-03-2022 INR Coag (PPP) [Relative time] 1.0 {INR} [facility] Comment on above: INR Therapeutic Rang e [...] 02-03-2022 Platelets (Bld) [#/Vol] 337 10*3/uL 150-450 [facility] RBC Auto (Bld) [#/Vol]Ordere d By: Diony Hooks on 02-03-2022 RBC (Bld) [#/Vol] 4.56 10*6/uL 3.60-5.00 [facility] COVID-19 SOFIAOrdered By: St anup Hooks on 02-01-2022 SARS-CoV+SARS-CoV-2 (COVID-19) Ag IA.rapid Ql (Resp) Negative Negative [facility] Comment on above: This is a duplicate Kasey SARS Antigen (JERRY) result to be used for statistical tracking purpose only. Creatinine and Glomerular fi ltration rate.predicted panel (S/P/Bld)Ordered By: Diony Hooks on 02-01-2022 Creatinine [Mass/Vol] 0.85 mg/dL 0.44-1.03 [facility] Estimated glomerular filtrat ion rate (GFR) non- AmericanOrdered By: Diony Hooks on 02-01-2022 GFR/1.73 sq M.predicted among non-blacks MDRD (S/P/Bld) [Vol rate/Area] > 60 mL/Min [facility] No Panel InformationOrdered By: Diony Hooks on 02-01-2022 Estimated GFR () > 60 mL/Min [facility] Comment on above: GFR estimated refere nce range: According to KDOQI guidelines, <60 ml/min/1.73m2 is sufficient to diagnose a patient with chronic kidney disease. Pharmacy Creatinine Clearance (Chem N/A [facility] SARS Antigen (LFIA) [facility] Serum or plasma calcium norma urement (mass/volume)Ordered By: Diony Hooks on 02-01-2022 Calcium [Mass/Vol] 9.7 mg/dL 8.2-10.2 [facility] Serum or plasma chloride tam surement (moles/volume)Ordered By: Diony Hooks on 02-01-2022 Chloride [Moles/Vol] 97 mmol/L 95-114 [facility] Serum or plasma glucose norma urement (mass/volume)Ordered By: Diony Hooks on 02-01-2022 Glucose [Mass/Vol] 86 mg/dL 70-100 [facility] Comment on above: ADA recommended refe rence range Random Glucose Reference Range is dependent on time and content of last meal. Glucose of more than 200 mg/dL in a nonstressed, ambulatory subject supports the diagnosis of Diabetes Mellitus. Serum or plasma potassium me asurement (moles/volume)Ordered By: Diony Hooks on 02-01-2022 Potassium [Moles/Vol] 4.7 mmol/L 3.5-5.1 [facility] Serum or plasma sodium measu rement (moles/volume)Ordered By: Diony Hooks on 02-01-2022 Sodium [Moles/Vol] 132 mmol/L 136-146 [facility] Serum or plasma total carbon dioxide measurement (moles/volume)Ordered By: Diony Hooks on 02-01-2022 CO2 [Moles/Vol] 26.0 mmol/L 22.0-30.[address] [facility] Serum or plasma urea nitroge n measurement (mass/volume)Ordered By: Diony Hooks on 02-01-2022 Urea nitrogen [Mass/Vol] 10 mg/dL 03-04 [facility] BNPon 01-28-2022 Natriuretic peptide B (Bld) [Mass/Vol] 945.0 pg/mL Normal <=1,800.0 [facility] Comment on above: Performed By: #### R [id number] #### [facility] [address] [address] [address] Ellie Smith CARDIAC RAQUEL ADMITon 022 CK [Catalytic activity/Vol] 122 U/L Normal 26-192 [facility] Comment on above: Performed By: #### R [id number] #### [facility] [address] [address] [address] Ellie Smith CK.MB [Mass/Vol] 0.65 ng/mL Normal <=3.60 [facility] Comment on above: Performed By: #### R [id number] #### [facility] [address] [address] [address] Ellie Smith HSTROP 63.5 pg/mL Critically high 4.0-51.3 [facility] Comment on above: Result Comment: CUT- OFF POINTS HAVE BEEN ESTABLISHED BASED ON THE FOURTH UNIVERSAL DEFINITIONS OF MYOCARDIAL INFARCTION. THE UPPER REFERENCE LIMIT (URL) OF TROPONIN, DEFINED THE 99TH PERCENTILE OF cTnI DISTRIBUTION IN A REFERENCE POPULATION, HAS BEEN CONFIRMED THE DECISION THRESHOLD FOR ME DIAGNOSIS. Performed By: #### R [id number] #### [facility] [address] [place] [address] Dr. Ellie Smith MATEO 26 ng/mL Normal 9-82 [facility] Comment on above: Performed By: #### R [id number] #### [facility] [address] [place] [address] Dr. Ellie Smith CBC AUTO DIFFon 01-28-2022 BASO # 0.1 103/ul Normal 0.0-0.1 [facility] Comment on above: Performed By: #### L ACT #### [facility] [address] [place] [address] Dr. Ellie Smith Basophils/100 WBC (Bld) 0.6 % Normal 0.2-2.0 [facility] Comment on above: Performed By: #### L ACT #### [facility] [address] [place] [address] Dr. Ellie Smith EO # 0.4 103/ul Normal 0.0-0.7 [facility] Comment on above: Performed By: #### L ACT #### [facility] [address] [place] [address] Dr. Ellie Smith Eosinophils/100 WBC (Bld) 4.4 % Normal 0.9-7.0 [facility] Comment on above: Performed By: #### L ACT #### [facility] [address] [place] [address] Dr. Ellie Smith Erythrocyte distribution width (RBC) [Ratio] 13.7 % Normal 11.0-15.0 [facility] Comment on above: Performed By: #### L ACT #### [facility] [address] [place] [address] Dr. Ellie Smith Hematocrit (Bld) [Volume fraction] 35.8 % Critically low 36.0-48.0 [facility] Comment on above: Performed By: #### L ACT #### [facility] [address] [place] [address] Dr. Ellie Smith Hemoglobin (Bld) [Mass/Vol] 11.9 g/dL Critically low 12.0-16.0 [facility] Comment on above: Performed By: #### L ACT #### [facility] [address] [place] [address] Dr. Ellie Smith IG # 0.03 10e3/ul Normal 0.00-0.03 [facility] Comment on above: Performed By: #### L ACT #### [facility] [address] [place] [address] Dr. Ellie Smith IG % 0.4 % Normal 0.0-0.5 [facility] Comment on above: Performed By: #### L ACT #### [facility] [address] [place] [address] Dr. Ellie Smith LYMPH # 1.7 103/ul Normal 1.2-3.8 [facility] Comment on above: Performed By: #### L ACT #### [facility] [address] [place] [address] Dr. Ellie Smith Lymphocytes/100 WBC (Bld) 19.6 % Critically low 20.5-60.0 [facility] Comment on above: Performed By: #### L ACT #### [facility] [address] [place] [address] Dr. Ellie Smith MANUAL DIFF REQ NO Normal [facility] Comment on above: Performed By: #### L ACT #### [facility] [address] [address] [address] Ellie Smith MCH (RBC) [Entitic mass] 31.4 pg Normal 26.7-34.0 [facility] Comment on above: Performed By: #### L ACT #### [facility] [address] [place] [address] Dr. Ellie Smith MCHC (RBC) [Mass/Vol] 33.2 g/dL Normal 29.9-35.2 [facility] Comment on above: Performed By: #### L ACT #### [facility] [address] [place] [address] Dr. Ellie Smith MCV (RBC) [Entitic vol] 94.5 fL Normal 81.0-99.0 [facility] Comment on above: Performed By: #### L ACT #### [facility] [address] [place] [address] Dr. Ellie Smith MONO # 0.5 103/ul Normal 0.3-0.8 [facility] Comment on above: Performed By: #### L ACT #### [facility] [address] [place] [address] Dr. Ellie Smith Monocytes/100 WBC (Bld) 5.4 % Normal 1.7-12.0 [facility] Comment on above: Performed By: #### L ACT #### [facility] [address] [place] [address] Dr. Ellie Smith NEUT # 6.0 103/ul Normal 1.4-6.5 [facility] Comment on above: Performed By: #### L ACT #### [facility] [address] [place] [address] Dr. Ellie Smith Neutrophils/100 WBC (Bld) 69.6 % Normal 43.0-75.0 [facility] Comment on above: Performed By: #### L ACT #### [facility] [address] [place] [address] Dr. Ellie Smith Platelet mean volume (Bld) [Entitic vol] 9.5 fL Normal 9.5-13.5 [facility] Comment on above: Performed By: #### L ACT #### [facility] [address] [place] [address] Dr. Ellie Smith PLT 252 103/ul Normal 150-450 [facility] Comment on above: Performed By: #### L ACT #### [facility] [address] [place] [address] Dr. Ellie Smith RBC 3.79 106/ul Critically low 4.20-5.40 [facility] Comment on above: Performed By: #### L ACT #### [facility] [address] [place] [address] Dr. Ellie Smith WBC 8.6 103/ul Normal 4.0-11.0 [facility] Comment on above: Performed By: #### L ACT #### [facility] [address] [place] [address] Dr. Ellie Smith POINT OF CARE GLUCOSEon 01-10 Glucose [Mass/Vol] 93 mg/dL Normal 74-106 [facility] Comment on above: Performed By: #### A 1C #### [facility] [address] [place] [address] Dr. Ellie Smith PROF 14(COMP METB)on 022 Albumin [Mass/Vol] 3.2 g/dL Critically low 3.4-5.[address] [facility] Comment on above: Performed By: #### R EVRT3 #### [facility] [address] [place] [address] Dr. Ellie Smith Albumin/Globulin [Mass ratio] 1.1 {ratio} Normal [facility] Comment on above: Performed By: #### R EVRT3 #### [facility] [address] [place] [address] Dr. Ellie Smith ALP [Catalytic activity/Vol] 52 U/L Normal 46-116 [facility] Comment on above: Performed By: #### R EVRT3 #### [facility] [address] [place] [address] Dr. Ellie Smith ALT [Catalytic activity/Vol] 52 U/L Normal 14-59 [facility] Comment on above: Performed By: #### R EVRT3 #### [facility] [address] [address] [address] Ellie Smith Anion gap [Moles/Vol] 9.7 mmol/L Normal [facility] Comment on above: Performed By: #### R EVRT3 #### [facility] [address] [address] [address] Ellie Smith AST [Catalytic activity/Vol] 22 U/L Normal 15-37 [facility] Comment on above: Performed By: #### R EVRT3 #### [facility] [address] [place] [address] Dr. Ellie Simth Bilirubin [Mass/Vol] 0.3 mg/dL Normal 0.2-1.0 [facility] Comment on above: Performed By: #### R EVRT3 #### [facility] [address] [place] [address] Dr. Ellie Smith Calcium [Mass/Vol] 8.4 mg/dL Critically low 8.5-10.[address] [facility] Comment on above: Performed By: #### R EVRT3 #### [facility] [address] [place] [address] Dr. Ellie Smith Chloride [Moles/Vol] 104 mmol/L Normal 98-107 [facility] Comment on above: Performed By: #### R EVRT3 #### [facility] [address] [place] [address] Dr. Ellie Smith CO2 [Moles/Vol] 25.5 mmol/L Normal 21.0-32.0 [facility] Comment on above: Performed By: #### R EVRT3 #### [facility] [address] [place] [address] Dr. Ellie Smith Creatinine [Mass/Vol] 0.71 mg/dL Normal 0.55-1.02 [facility] Comment on above: Performed By: #### R EVRT3 #### [facility] [address] [place] [address] Dr. Ellie Smith EGFR-AF MEXICAN >60 Normal >=60 [facility] Comment on above: Performed By: #### R EVRT3 #### [facility] [address] [address] [address] Ellie Smith EGFR-NON AF MEXICAN >60 Normal >=60 [facility] Comment on above: Performed By: #### R EVRT3 #### [facility] [address] [address] [address] Ellie Smith Globulin (S) [Mass/Vol] 2.9 g/dL Normal [facility] Comment on above: Performed By: #### R EVRT3 #### [facility] [address] [address] [address] Ellie Smith Glucose [Mass/Vol] 102 mg/dL Normal 74-106 [facility] Comment on above: Performed By: #### R EVRT3 #### [facility] [address] [place] [address] Dr. Ellie Smith Potassium [Moles/Vol] 4.2 mmol/L Normal 3.5-5.1 [facility] Comment on above: Performed By: #### R EVRT3 #### [facility] [address] [address] [address] Ellie Smith Protein [Mass/Vol] 6.1 g/dL Critically low 6.4-8.2 [facility] Comment on above: Performed By: #### R EVRT3 #### [facility] [address] [place] [address] Dr. Ellie Smith Sodium [Moles/Vol] 135 mmol/L Critically low 136-[address] [facility] Comment on above: Performed By: #### R EVRT3 #### [facility] [address] [address] [address] Ellie Smith Urea nitrogen [Mass/Vol] 11.0 mg/dL Normal 7.0-18.0 [facility] Comment on above: Performed By: #### R EVRT3 #### [facility] [address] [place] [address] Dr. Ellie Smith Urea nitrogen/Creatinine [Mass ratio] 15.5 mg/mg Normal [facility] Comment on above: Performed By: #### R EVRT3 #### [facility] [address] [address] [address] Ellie Smith CARDIAC RAQUEL 3-6on 2 CK [Catalytic activity/Vol] 192 U/L Normal 26-192 [facility] Comment on above: Performed By: #### L ACT #### [facility] [address] [address] [address] Ellie Smith CK.MB [Mass/Vol] 0.70 ng/mL Normal <=3.60 [facility] Comment on above: Performed By: #### L ACT #### [facility] [address] [address] [address] Ellie Smith HSTROP 88.8 pg/mL Critically high 4.0-51.3 [facility] Comment on above: Result Comment: CUT- OFF POINTS HAVE BEEN ESTABLISHED BASED ON THE FOURTH UNIVERSAL DEFINITIONS OF MYOCARDIAL INFARCTION. THE UPPER REFERENCE LIMIT (URL) OF TROPONIN, DEFINED THE 99TH PERCENTILE OF cTnI DISTRIBUTION IN A REFERENCE POPULATION, HAS BEEN CONFIRMED THE DECISION THRESHOLD FOR ME DIAGNOSIS. Performed By: #### L ACT #### [facility] [address] [place] [address] Dr. Ellie Smith CK [Catalytic activity/Vol] 213 U/L Critically high 26-192 [facility] Comment on above: Performed By: #### P OCGLUC #### [facility] [address] [place] [address] Dr. Ellie Smith CK.MB [Mass/Vol] 0.90 ng/mL Normal <=3.60 [facility] Comment on above: Performed By: #### P OCGLUC #### [facility] [address] [place] [address] Dr. Ellie Smith HSTROP 108.1 pg/mL Critically high 4.0-51.3 [facility] Comment on above: Result Comment: CUT- OFF POINTS HAVE BEEN ESTABLISHED BASED ON THE FOURTH UNIVERSAL DEFINITIONS OF MYOCARDIAL INFARCTION. THE UPPER REFERENCE LIMIT (URL) OF TROPONIN, DEFINED THE 99TH PERCENTILE OF cTnI DISTRIBUTION IN A REFERENCE POPULATION, HAS BEEN CONFIRMED THE DECISION THRESHOLD FOR ME DIAGNOSIS. repeated Performed By: #### P OCGLUC #### [facility] [address] [address] [address] Ellie Smith CBC AUTO DIFFon 01-27-2022 BASO # 0.1 103/ul Normal 0.0-0.1 [facility] Comment on above: Performed By: #### P OCGLUC #### [facility] [address] [address] [address] lElie Smith Basophils/100 WBC (Bld) 0.5 % Normal 0.2-2.0 [facility] Comment on above: Performed By: #### P OCGLUC #### [facility] [address] [place] [address] Dr. Ellie Smith EO # 0.4 103/ul Normal 0.0-0.7 [facility] Comment on above: Performed By: #### P OCGLUC #### [facility] [address] [place] [address] Dr. Ellie Smith Eosinophils/100 WBC (Bld) 3.2 % Normal 0.9-7.0 [facility] Comment on above: Performed By: #### P OCGLUC #### [facility] [address] [place] [address] Dr. Ellie Smith Erythrocyte distribution width (RBC) [Ratio] 13.7 % Normal 11.0-15.0 [facility] Comment on above: Performed By: #### P OCGLUC #### [facility] [address] [place] [address] Dr. Ellie Smith Hematocrit (Bld) [Volume fraction] 40.5 % Normal 36.0-48.0 [facility] Comment on above: Performed By: #### P OCGLUC #### [facility] [address] [place] [address] Dr. Ellie Smith Hemoglobin (Bld) [Mass/Vol] 13.4 g/dL Normal 12.0-16.0 [facility] Comment on above: Performed By: #### P OCGLUC #### [facility] [address] [place] [address] Dr. Ellie Smith IG # 0.04 10e3/ul Critically high 0.00-0.03 [facility] Comment on above: Performed By: #### P OCGLUC #### [facility] [address] [place] [address] Dr. Ellie Smith IG % 0.3 % Normal 0.0-0.5 [facility] Comment on above: Performed By: #### P OCGLUC #### [facility] [address] [place] [address] Dr. Ellie Smith LYMPH # 2.4 103/ul Normal 1.2-3.8 [facility] Comment on above: Performed By: #### P OCGLUC #### [facility] [address] [place] [address] Dr. Ellie Smith Lymphocytes/100 WBC (Bld) 18.6 % Critically low 20.5-60.0 [facility] Comment on above: Performed By: #### P OCGLUC #### [facility] [address] [place] [address] Dr. Ellie Smith MANUAL DIFF REQ NO Normal [facility] Comment on above: Performed By: #### P OCGLUC #### [facility] [address] [place] [address] Dr. Ellie Smith MCH (RBC) [Entitic mass] 31.0 pg Normal 26.7-34.0 [facility] Comment on above: Performed By: #### P OCGLUC #### [facility] [address] [place] [address] Dr. Ellie Smith MCHC (RBC) [Mass/Vol] 33.1 g/dL Normal 29.9-35.2 [facility] Comment on above: Performed By: #### P OCGLUC #### [facility] [address] [place] [address] Dr. Ellie Smith MCV (RBC) [Entitic vol] 93.8 fL Normal 81.0-99.0 [facility] Comment on above: Performed By: #### P OCGLUC #### [facility] [address] [place] [address] Dr. Ellie Smith MONO # 0.7 103/ul Normal 0.3-0.8 [facility] Comment on above: Performed By: #### P OCGLUC #### [facility] [address] [address] [address] Ellie Smith Monocytes/100 WBC (Bld) 5.5 % Normal 1.7-12.0 [facility] [facility] Comment on above: Performed By: #### P OCGLUC #### [facility] [address] [address] [address] Ellie Smith NEUT # 9.1 103/ul Critically high 1.4-6.5 [facility] Comment on above: Performed By: #### P OCGLUC #### [facility] [address] [address] [address] Ellie Smith Neutrophils/100 WBC (Bld) 71.9 % Normal 43.0-75.0 [facility] Comment on above: Performed By: #### P OCGLUC #### [facility] [address] [place] [address] Dr. Ellie Smith Platelet mean volume (Bld) [Entitic vol] 9.6 fL Normal 9.5-13.5 [facility] Comment on above: Performed By: #### P OCGLUC #### [facility] [address] [address] [address] Ellie Smith PLT 307 103/ul Normal 150-450 [facility] Comment on above: Performed By: #### P OCGLUC #### [facility] [address] [place] [address] Dr. Ellie Smith RBC 4.32 106/ul Normal 4.20-5.40 [facility] Comment on above: Performed By: #### P OCGLUC #### [facility] [address] [place] [address] Dr. Ellie Smith WBC 12.6 103/ul Critically high 4.0-11.0 [facility] Comment on above: Performed By: #### P OCGLUC #### [facility] [address] [place] [address] ABD/PELVIS WO CONon [...] by: JONA ORLANDO Date: 2022-01-27 02:44 Normal [facility] CTA CHEST WO W CONon [...] JONA ORLANDO Date: 2022-01-27 03:46 Normal [facility] Covid-19 PCR ([facility])on 01-10 SARS-CoV-2 (COVID-19) RNA MEI+probe Ql (Unsp spec) Not detected Normal NOT DETECTED [facility] Comment on above: Result Comment: [...] for this test is supported by the [place] of Health and Human Service's declaration that [...] used). Performed By: #### R EVRT3 #### [facility] [address] [place] [id number] [address] Ellie Smith D-DIMERon 01-27-2022 D-DIMER 0.71 mg/L FEU Critically high <=0.59 [facility] Comment on above: Performed By: #### L ACT #### [facility] [address] [place] [address] Dr. Ellie Smith D-DIMER COMMENTS SEE BELOW Normal [facility] Comment on above: Result Comment: Incr [...] hospitalization. Performed By: #### L ACT #### [facility] [address] [place] [address] Dr. Ellie Smith ER URINE PROFILEon 2 Bilirubin Ql (U) Negative Normal NEGATIVE [facility] Comment on above: Performed By: #### P OCGLUC #### [facility] [address] [place] [address] Dr. Ellie Smith Clarity (U) CLEAR Normal CLEAR [facility] Comment on above: Performed By: #### P OCGLUC #### [facility] [address] [place] [address] Dr. Ellie Smith Color (U) LT. YELLOW Normal YELLOW [facility] Comment on above: Performed By: #### P OCGLUC #### [facility] [address] [place] [address] Dr. Ellie Smith ERUAHD A micrscopic examina tion will be performed if indicated. Normal [facility] Comment on above: Performed By: #### P OCGLUC #### [facility] [address] [place] [address] Dr. Ellie Smith Glucose Ql (U) Negative Normal NEGATIVE [facility] Comment on above: Performed By: #### P OCGLUC #### [facility] [address] [place] [address] Dr. Ellie Smith Hemoglobin Ql (U) Negative Normal NEGATIVE [facility] Comment on above: Performed By: #### P OCGLUC #### [facility] [address] [place] [address] Dr. Ellie Smith Ketones Ql (U) Negative Normal NEGATIVE [facility] Comment on above: Performed By: #### P OCGLUC #### [facility] [address] [place] [address] Dr. Ellie Smith LEUKOCYTES Negative Normal NEGATIVE [facility] Comment on above: Performed By: #### P OCGLUC #### [facility] [address] [place] [address] Dr. Ellie Smith Nitrite Ql (U) Negative Normal NEGATIVE [facility] Comment on above: Performed By: #### P OCGLUC #### [facility] [address] [place] [address] Dr. Ellie Smith pH (U) 6.0 [pH] Normal 5-9 [facility] Comment on above: Performed By: #### P OCGLUC #### [facility] [address] [place] [address] Dr. Ellie Smith SPEC GRAVITY 1.010 Normal 1.005-<=1. 025 [facility] Comment on above: Performed By: #### P OCGLUC #### [facility] [address] [place] [address] Dr. Ellie Smith UA PROTEIN Negative Normal NEGATIVE/ TRACE [facility] Comment on above: Performed By: #### P OCGLUC #### [facility] [address] [place] [address] Dr. Ellie Smith UR MICRO IND NOT INDICATED Normal [facility] Comment on above: Performed By: #### P OCGLUC #### [facility] [address] [place] [address] Dr. Ellie Smith Urobilinogen Qn (U) 0.2 {Tamia'U}/dL Normal 0.2 - 1. 0 [facility] Comment on above: Performed By: #### P OCGLUC #### [facility] [address] [place] [address] Dr. Ellie Smith LACTATE/LACTIC ACIDon 2021 Lactate [Moles/Vol] 1.8 mmol/L Normal 0.4-1.9 [facility] Comment on above: Performed By: #### L ACT #### [facility] [address] [address] [address] Ellie Smith POINT OF CARE GLUCOSEon 01-10 Glucose [Mass/Vol] 132 mg/dL Critically high 74-106 [facility] Comment on above: Performed By: #### L ACT #### [facility] [address] [address] [address] Ellie Smith Glucose [Mass/Vol] 99 mg/dL Normal 74-106 [facility] Comment on above: Performed By: #### L ACT #### [facility] [address] [address] [address] Ellie Smith Glucose [Mass/Vol] 117 mg/dL Critically high 74-106 [facility] Comment on above: Performed By: #### P OCGLUC #### [facility] [address] [place] [address] Dr. Ellie Smith Glucose [Mass/Vol] 105 mg/dL Normal 74-106 [facility] Comment on above: Performed By: #### L ACT #### [facility] [address] [place] [address] Dr. Ellie Smith PROF 14(COMP METB)on 022 Albumin [Mass/Vol] 3.6 g/dL Normal 3.4-5.0 [facility] Comment on above: Performed By: #### C MP #### [facility] [address] [place] [address] Dr. Ellie Smith Albumin/Globulin [Mass ratio] 1.1 {ratio} Normal [facility] Comment on above: Performed By: #### C MP #### [facility] [address] [place] [address] Dr. Ellie Smith ALP [Catalytic activity/Vol] 61 U/L Normal 46-116 [facility] Comment on above: Performed By: #### C MP #### [facility] [address] [place] [address] Dr. Ellie Smith ALT [Catalytic activity/Vol] 53 U/L Normal 14-59 [facility] Comment on above: Performed By: #### C MP #### [facility] [address] [address] [address] Ellie Smith Anion gap [Moles/Vol] 14.7 mmol/L Normal Th e [facility] Comment on above: Performed By: #### C MP #### [facility] [address] [address] [address] Ellie Smith AST [Catalytic activity/Vol] 43 U/L Critically high 15-37 [facility] Comment on above: Performed By: #### C MP #### [facility] [address] [address] [address] Ellie Smith Bilirubin [Mass/Vol] 0.4 mg/dL Normal 0.2-1.0 [facility] Comment on above: Performed By: #### C MP #### [facility] [address] [address] [address] Ellie Smith Calcium [Mass/Vol] 8.6 mg/dL Normal 8.5-10.1 [facility] Comment on above: Performed By: #### C MP #### [facility] [address] [place] [address] Dr. Ellie Smith Chloride [Moles/Vol] 99 mmol/L Normal 98-107 [facility] Comment on above: Performed By: #### C MP #### [facility] [address] [address] [address] Ellie Smith CO2 [Moles/Vol] 22.4 mmol/L Normal 21.0-32.0 [facility] Comment on above: Performed By: #### C MP #### [facility] [address] [address] [address] Ellie Smith Creatinine [Mass/Vol] 0.90 mg/dL Normal 0.55-1.02 [facility] Comment on above: Performed By: #### C MP #### [facility] [address] [address] [address] Ellie Smith EGFR-AF MEXICAN >60 Normal >=60 [facility] Comment on above: Performed By: #### C MP #### [facility] [address] [address] [address] Ellie Smith EGFR-NON AF MEXICAN 60 mL/min/1.73m2 Normal >=60 [facility] Comment on above: Performed By: #### C MP #### [facility] [address] [place] [address] Dr. Ellie Smith Globulin (S) [Mass/Vol] 3.3 g/dL Normal [facility] Comment on above: Performed By: #### C MP #### [facility] [address] [place] [address] Dr. Ellie Smith Glucose [Mass/Vol] 108 mg/dL Critically high 74-106 [facility] Comment on above: Performed By: #### C MP #### [facility] [address] [place] [address] Dr. Ellie Smith Potassium [Moles/Vol] 4.1 mmol/L Normal 3.5-5.1 [facility] Comment on above: Performed By: #### C MP #### [facility] [address] [place] [address] Dr. Ellie Smith Protein [Mass/Vol] 6.9 g/dL Normal 6.4-8.2 [facility] Comment on above: Performed By: #### C MP #### [facility] [address] [place] [address] Dr. Ellie Smith Sodium [Moles/Vol] 132 mmol/L Critically low 136-[address] [facility] Comment on above: Performed By: #### C MP #### [facility] [address] [place] [address] Dr. Ellie Smith Urea nitrogen [Mass/Vol] 15.0 mg/dL Normal 7.0-18.0 [facility] Comment on above: Performed By: #### C MP #### [facility] [address] [place] [address] Dr. Ellie Smith Urea nitrogen/Creatinine [Mass ratio] 16.7 mg/mg Normal [facility] Comment on above: Performed By: #### C MP #### [facility] [address] [place] [address] Dr. Ellie Smith PROTIMEon 01-27-2022 INR Coag (PPP) [Relative time] 1.00 {INR} Normal [facility] Comment on above: Performed By: #### P OCGLUC #### [facility] [address] [place] [address] Dr. Ellie Smith INR GUIDELINES SEE BELOW Normal [facility] Comment on above: Result Comment: HIMANSHU RED INR: 2.0 - 3.0 CONDITIONS NOT LISTED BELOW 2.5 - 3.5 FOR PROSTHETIC HEART VALVE REPLACEMENT 2.5 - 3.5 RECURRENT THROMBOSIS Performed By: #### P OCGLUC #### [facility] [address] [place] [address] Dr. Ellie Smith PT Coag (PPP) [Time] 10.8 s Normal 9.0-11.6 [facility] Comment on above: Performed By: #### P OCGLUC #### [facility] [address] [place] [address] Dr. Ellie Smith PTTon 01-27-2022 aPTT Coag (Bld) [Time] 28.6 s Normal 22.3-36.2 [facility] Comment on above: Performed By: #### L ACT #### [facility] [address] [place] [address] Dr. Ellie Smith TROPONIN, HIGH SENSITIVITYon 01-27-2022 HSTROP 116.4 pg/mL Critically high 4.0-51.3 [facility] Comment on above: Result Comment: CUT- OFF POINTS HAVE BEEN ESTABLISHED BASED ON THE FOURTH UNIVERSAL DEFINITIONS OF MYOCARDIAL INFARCTION. THE UPPER REFERENCE LIMIT (URL) OF TROPONIN, DEFINED THE 99TH PERCENTILE OF cTnI DISTRIBUTION IN A REFERENCE POPULATION, HAS BEEN CONFIRMED THE DECISION THRESHOLD FOR ME DIAGNOSIS. Performed By: #### A 1C #### [facility] [address] [place] [address] Dr. Ellie Smith HSTROP 151.5 pg/mL Critically high 4.0-51.3 [facility] Comment on above: Result Comment: CUT- OFF POINTS HAVE BEEN ESTABLISHED BASED ON THE FOURTH UNIVERSAL DEFINITIONS OF MYOCARDIAL INFARCTION. THE UPPER REFERENCE LIMIT (URL) OF TROPONIN, DEFINED THE 99TH PERCENTILE OF cTnI DISTRIBUTION IN A REFERENCE POPULATION, HAS BEEN CONFIRMED THE DECISION THRESHOLD FOR ME DIAGNOSIS. Performed By: #### P OCGLUC #### [facility] [address] [address] [address] Ellie Smith XR CHEST 1 Von [...] JONA ORLANDO Date: 2022-01-27 01:08 Normal [facility] Albumin [Mass/volume] in Ser um or PlasmaOrdered By: Diony Hooks on 01-21-2022 Albumin [Mass/Vol] 3.4 g/dL 3.2-5.5 [facility] Basophils Auto (Bld) [#/Vol] Ordered By: Diony Hooks on 01-21-2022 Basophils (Bld) [#/Vol] 0.0 10*3/uL 0.0-0.2 [facility] Basophils/100 WBC Auto (Bld) Ordered By: Diony Hooks on 01-21-2022 Basophils/100 WBC (Bld) 0.4 % . [facility] Blood hemoglobin measurement (mass/volume)Ordered By: Diony Hooks on 01-21-2022 Hemoglobin (Bld) [Mass/Vol] 13.3 g/dL 11.8-15.4 [facility] Blood leukocytes automated c ount (number/volume)Ordered By: Diony Hooks on 01-21-2022 WBC (Bld) [#/Vol] 8.5 10*3/uL 4.5-11.0 [facility] Creatinine and Glomerular fi ltration rate.predicted panel (S/P/Bld)Ordered By: Diony Hooks on 01-21-2022 Creatinine [Mass/Vol] 0.72 mg/dL 0.44-1.03 [facility] Eosinophils Auto (Bld) [#/Vo l]Ordered By: Diony Hooks on 01-21-2022 Eosinophils (Bld) [#/Vol] 0.4 10*3/uL 0.0-0.45 [facility] Eosinophils/100 WBC Auto (Bl d)Ordered By: Diony Hooks on 01-21-2022 Eosinophils/100 WBC (Bld) 4.2 % . [facility] Erythrocyte distribution wid th Auto (RBC) [Ratio]Ordered By: Diony Hooks on 01-21-2022 Erythrocyte distribution width (RBC) [Ratio] 14.4 % 11.9-15.3 [facility] Estimated glomerular filtrat ion rate (GFR) non- AmericanOrdered By: Diony Hooks on 01-21-2022 GFR/1.73 sq M.predicted among non-blacks MDRD (S/P/Bld) [Vol rate/Area] > 60 mL/Min [facility] Globulin Calc (S) [Mass/Vol] Ordered By: Diony Hooks on 01-21-2022 Globulin (S) [Mass/Vol] 2.4 g/dL [facility] Glucose Glucometer (BldC) [M ass/Vol]Ordered By: Wiley Beal on 01-21-2022 Glucose [Mass/Vol] 93 mg/dL [facility] Comment on above: Random Glucose Refer ence Range is dependent on time and content of last meal. Glucose of more than 200 mg/dL in a nonstressed, ambulatory subject supports the diagnosis of Diabetes Mellitus. Hematocrit Auto (Bld) [Volum e fraction]Ordered By: Diony Hooks on 01-21-2022 Hematocrit (Bld) [Volume fraction] 40.5 % 34.0-46.4 [facility] Laboratory - Hematology and Cell countsOrdered By: Diony Hooks on 01-21-2022 Nucleated RBC/100 WBC (Bld) [Ratio] 0.0 % 0-0.5 [facility] Lymphocytes Auto (Bld) [#/Vo l]Ordered By: Diony Hooks on 01-21-2022 Lymphocytes (Bld) [#/Vol] 1.2 10*3/uL 1.00-4.8 [facility] Lymphocytes/100 WBC Auto (Bl d)Ordered By: Diony Hooks on 01-21-2022 Lymphocytes/100 WBC (Bld) 14.2 % . [facility] MCH Auto (RBC) [Entitic mass ]Ordered By: Diony Hooks on 01-21-2022 MCH (RBC) [Entitic mass] 30.7 pg 24.7-34.3 [facility] MCHC Auto (RBC) [Mass/Vol]Or dered By: Diony Hooks on 01-21-2022 MCHC (RBC) [Mass/Vol] 32.9 g/dL 32.0-35.0 [facility] MCV Auto (RBC) [Entitic vol] Ordered By: Diony Hooks on 01-21-2022 MCV (RBC) [Entitic vol] 93.1 fL 80-100 [facility] Monocytes Auto (Bld) [#/Vol] Ordered By: Diony Hooks on 01-21-2022 Monocytes (Bld) [#/Vol] 0.6 10*3/uL 0.0-0.8 [facility] Monocytes/100 WBC Auto (Bld) Ordered By: Diony Hooks on 01-21-2022 Monocytes/100 WBC (Bld) 6.7 % . [facility] Neutrophils Auto (Bld) [#/Vo l]Ordered By: Diony Hooks on 01-21-2022 Neutrophils (Bld) [#/Vol] 6.3 10*3/uL 1.8-7.7 [facility] Neutrophils/100 WBC Auto (Bl d)Ordered By: Diony Hooks on 01-21-2022 Neutrophils/100 WBC (Bld) 74.5 % . [facility] No Panel InformationOrdered By: Wiley Beal on 01-21-2022 Bedside Glucose Comment Glu2: cleaned meter [facility] No Panel InformationOrdered By: Diony Hooks on 01-21-2022 Estimated GFR () > 60 mL/Min [facility] Comment on above: GFR estimated refere nce range: According to KDOQI guidelines, <60 ml/min/1.73m2 is sufficient to diagnose a patient with chronic kidney disease. Pharmacy Creatinine Clearance (Chem 55.72 [facility] Platelet mean volume Auto (B ld) [Entitic vol]Ordered By: Diony Hooks on 01-21-2022 Platelet mean volume (Bld) [Entitic vol] 7.8 fL 6.3-10.7 [facility] Platelets Auto (Bld) [#/Vol] Ordered By: Diony Hooks on 01-21-2022 Platelets (Bld) [#/Vol] 235 10*3/uL 150-450 [facility] Protein [Mass/volume] in Ser um or PlasmaOrdered By: Diony Hooks on 01-21-2022 Protein [Mass/Vol] 5.8 g/dL 6.1-7.9 [facility] RBC Auto (Bld) [#/Vol]Ordere d By: Diony Hooks on 01-21-2022 RBC (Bld) [#/Vol] 4.35 10*6/uL 3.60-5.00 [facility] Serum or plasma alanine potter otransferase measurement without P-5'-P (enzymatic activiOrdered By: Diony Hooks on 01-21-2022 ALT No additional P-5'-P [Catalytic activity/Vol] 16 U/L 10-60 [facility] Serum or plasma albumin/glob ulin mass ratioOrdered By: Diony Hooks on 01-21-2022 Albumin/Globulin [Mass ratio] 1.4 {ratio} [facility] Serum or plasma alkaline inge sphatase measurement (enzymatic activity/volume)Ordered By: Diony Hooks on 01-21-2022 ALP [Catalytic activity/Vol] 43 U/L 32-92 [facility] Serum or plasma aspartate am inotransferase measurement (enzymatic activity/volume)Ordered By: Diony Hooks on 01-21-2022 AST [Catalytic activity/Vol] 25 U/L 10-42 [facility] Serum or plasma calcium norma urement (mass/volume)Ordered By: Diony Hooks on 01-21-2022 Calcium [Mass/Vol] 9.1 mg/dL 8.2-10.2 [facility] Serum or plasma chloride tam surement (moles/volume)Ordered By: Diony Hooks on 01-21-2022 Chloride [Moles/Vol] 104 mmol/L 95-114 [facility] Serum or plasma glucose norma urement (mass/volume)Ordered By: Diony Hooks on 01-21-2022 Glucose [Mass/Vol] 98 mg/dL 70-100 [facility] Comment on above: ADA recommended refe rence range Random Glucose Reference Range is dependent on time and content of last meal. Glucose of more than 200 mg/dL in a nonstressed, ambulatory subject supports the diagnosis of Diabetes Mellitus. Serum or plasma potassium me asurement (moles/volume)Ordered By: Diony Hooks on 01-21-2022 Potassium [Moles/Vol] 3.8 mmol/L 3.5-5.1 [facility] Serum or plasma sodium measu rement (moles/volume)Ordered By: Diony Hooks on 01-21-2022 Sodium [Moles/Vol] 135 mmol/L 136-146 [facility] Serum or plasma total biliru bin measurement (mass/volume)Ordered By: Diony Hooks on 01-21-2022 Bilirubin [Mass/Vol] 0.9 mg/dL 0.3-1.2 [facility] Serum or plasma total carbon dioxide measurement (moles/volume)Ordered By: Diony Hooks on 01-21-2022 CO2 [Moles/Vol] 23.4 mmol/L 22.0-30.[address] [facility] Serum or plasma urea nitroge n measurement (mass/volume)Ordered By: Diony Hooks on 01-21-2022 Urea nitrogen [Mass/Vol] 9 mg/dL 9 [facility] Activated partial thrombopla stin time (aPTT) in platelet poor plasma by coagulation aOrdered By: Wiley Beal on 01-20-2022 aPTT Coag (PPP) [Time] 70.5 s 25.1-36.5 [facility] Cholesterol [Mass/volume] in Serum or PlasmaOrdered By: Justa Westfall on 01-19-2022 Cholesterol [Mass/Vol] 181 mg/dL 140-200 [facility] Comment on above: Chol less than 200 m g/dl low risk Chol 201-239 mg/dl borderline risk Chol 240 mg/dl and greater high risk Cholesterol in LDL Calc [Mas s/Vol]Ordered By: Justa Westfall on 01-19-2022 Cholesterol in LDL [Mass/Vol] 112 mg/dL 0-100 [facility] Comment on above: LDL ATP III CLASSIFI CATION LDL less than 100 mg/dL Optimal LDL 100-129 mg/dL Near or above optimal LDL 130-159 mg/dL Borderline high LDL 160-189 mg/dL High LDL greater than 189 mg/dL Very high Cholesterol in VLDL Calc [Ma ss/Vol]Ordered By: Justa Westfall on 01-19-2022 Cholesterol in VLDL [Mass/Vol] 22 mg/dL [facility] Laboratory - Chemistry and C hemistry - challengeOrdered By: Justa Westfall on 01-19-2022 Magnesium [Mass/Vol] 1.4 mg/dL 1.6-2.6 [facility] - CoagulationOrde red By: Justa Westfall on 01-19-2022 PT Coag (PPP) [Time] 11.7 s 9.0-12.9 [facility] Platelet poor plasma interna tional normalized ratio (INR) by coagulation assay (relatOrdered By: Justa Westfall on 01-19-2022 INR Coag (PPP) [Relative time] 1.0 {INR} [facility] Comment on above: INR Therapeutic Rang e [...] Cholesterol in HDL [Mass/Vol] 46 mg/dL 35-85 [facility] Comment on above: HDL CHOL ATP-III CLA SSIFICATION Cardiovascular Risk HDL > or equal to 60 mg/dL LOW HDL < 40 mg/dL HIGH Serum or plasma total choles terol/high density lipoprotein (HDL) cholesterol mass ratOrdered By: Justa Westfall on 01-19-2022 Cholesterol.total/Chol esterol in HDL [Mass ratio] 3.9 {ratio} <5.0 [facility] Triglyceride [Mass/volume] i n Serum or PlasmaOrdered By: Justa Westfall on 01-19-2022 Triglyceride [Mass/Vol] 113 mg/dL 35-149 [facility] Comment on above: TRIG ATP III CLASSIF [...] High sensitivity method [Mass/Vol] 3577 pg/mL 0-15 [facility] Comment on above: Results called at 0943 on 01/19/22 BNPon 01-18-2022 Natriuretic peptide B (Bld) [Mass/Vol] 1222.0 pg/mL Normal <=1,800.0 [facility] Comment on above: Performed By: #### A 1C #### [facility] [address] [place] [address] Dr. Ellie Smith CBC AUTO DIFFon 01-18-2022 BASO # 0.1 103/ul Normal 0.0-0.1 [facility] Comment on above: Performed By: #### R [id number] #### [facility] [address] [place] [address] Dr. Ellie Smith Basophils/100 WBC (Bld) 0.5 % Normal 0.2-2.0 [facility] Comment on above: Performed By: #### R EVRT3 #### [facility] [address] [place] [address] Dr. Ellie Smith EO # 0.2 103/ul Normal 0.0-0.7 [facility] Comment on above: Performed By: #### R EVRT3 #### [facility] [address] [place] [address] Dr. Ellie Smith Eosinophils/100 WBC (Bld) 2.4 % Normal 0.9-7.0 [facility] Comment on above: Performed By: #### R EVRT3 #### [facility] [address] [place] [address] Dr. Ellie Smith Erythrocyte distribution width (RBC) [Ratio] 14.1 % Normal 11.0-15.0 [facility] Comment on above: Performed By: #### R EVRT3 #### [facility] [address] [place] [address] Dr. Ellie Smith Hematocrit (Bld) [Volume fraction] 42.2 % Normal 36.0-48.0 [facility] Comment on above: Performed By: #### R EVRT3 #### [facility] [address] [place] [address] Dr. Ellie Smith Hemoglobin (Bld) [Mass/Vol] 13.9 g/dL Normal 12.0-16.0 [facility] Comment on above: Performed By: #### R EVRT3 #### [facility] [address] [place] [address] Dr. Ellie Smith IG # 0.02 10e3/ul Normal 0.00-0.03 [facility] Comment on above: Performed By: #### R EVRT3 #### [facility] [address] [place] [address] Dr. Ellie Smith IG % 0.2 % Normal 0.0-0.5 [facility] Comment on above: Performed By: #### R EVRT3 #### [facility] [address] [place] [address] Dr. Ellie Smith LYMPH # 2.1 103/ul Normal 1.2-3.8 [facility] Comment on above: Performed By: #### R EVRT3 #### [facility] [address] [place] [address] Dr. Ellie Smith Lymphocytes/100 WBC (Bld) 21.2 % Normal 20.5-60.0 [facility] Comment on above: Performed By: #### R EVRT3 #### [facility] [address] [place] [address] Dr. Ellie Smith MANUAL DIFF REQ NO Normal [facility] Comment on above: Performed By: #### R EVRT3 #### [facility] [address] [place] [address] Dr. Ellie Smith MCH (RBC) [Entitic mass] 31.2 pg Normal 26.7-34.0 [facility] Comment on above: Performed By: #### R EVRT3 #### [facility] [address] [place] [address] Dr. Ellie Smith MCHC (RBC) [Mass/Vol] 32.9 g/dL Normal 29.9-35.2 [facility] Comment on above: Performed By: #### R EVRT3 #### [facility] [address] [place] [address] Dr. Ellie Smith MCV (RBC) [Entitic vol] 94.6 fL Normal 81.0-99.0 [facility] Comment on above: Performed By: #### R EVRT3 #### [facility] [address] [place] [address] Dr. Ellie Smith MONO # 0.5 103/ul Normal 0.3-0.8 [facility] Comment on above: Performed By: #### R EVRT3 #### [facility] [address] [place] [address] Dr. Ellie Smith Monocytes/100 WBC (Bld) 4.7 % Normal 1.7-12.0 [facility] Comment on above: Performed By: #### R EVRT3 #### [facility] [address] [place] [address] Dr. Ellie Smith NEUT # 7.1 103/ul Critically high 1.4-6.5 [facility] Comment on above: Performed By: #### R EVRT3 #### [facility] [address] [place] [address] Dr. Ellie Smith Neutrophils/100 WBC (Bld) 71.0 % Normal 43.0-75.0 [facility] Comment on above: Performed By: #### R EVRT3 #### [facility] [address] [place] [address] Dr. Ellie Smith Platelet mean volume (Bld) [Entitic vol] 9.2 fL Critically low 9.5-13.5 [facility] Comment on above: Performed By: #### R EVRT3 #### [facility] [address] [address] [address] Ellie Smith PLT 257 103/ul Normal 150-450 [facility] Comment on above: Performed By: #### R EVRT3 #### [facility] [address] [place] [address] Dr. Ellie Smith RBC 4.46 106/ul Normal 4.20-5.40 [facility] Comment on above: Performed By: #### R EVRT3 #### [facility] [address] [place] [address] Dr. Ellie Smith WBC 10.0 103/ul Normal 4.0-11.0 [facility] Comment on above: Performed By: #### R EVRT3 #### [facility] [address] [place] [address] Dr. Ellie Smith [facility]on SARS-CoV-2 (COVID-19) RNA MEI+probe Ql (Unsp spec) Not detected Normal NOT DETECTED [facility] Comment on above: Result Comment: [...] for this test is supported by the [place] of Health and Human Service's declaration that [...] used). Performed By: #### C VDTBH #### [facility] [address] [place] [address] Dr. Ellie Smith LIPASEon 01-18-2022 Lipase [Catalytic activity/Vol] 62.0 U/L Critically low 73.0-393.0 [facility] Comment on above: Performed By: #### A 1C #### [facility] [address] [place] [address] Dr. Ellie Smith MAGNESIUMon 01-18-2022 Magnesium [Mass/Vol] 1.4 mg/dL Critically low 1.8-2.4 [facility] Comment on above: Performed By: #### M G #### [facility] [address] [place] [address] Dr. Ellie Smith PROF 14(COMP METB)on 022 Albumin [Mass/Vol] 3.8 g/dL Normal 3.4-5.0 [facility] Comment on above: Performed By: #### A 1C #### [facility] [address] [place] [address] Dr. Ellie Smith Albumin/Globulin [Mass ratio] 1.2 {ratio} Normal [facility] Comment on above: Performed By: #### A 1C #### [facility] [address] [place] [address] Dr. Ellie Smith ALP [Catalytic activity/Vol] 59 U/L Normal 46-116 [facility] Comment on above: Performed By: #### A 1C #### [facility] [address] [place] [address] Dr. Ellie Smith ALT [Catalytic activity/Vol] 18 U/L Normal 14-59 [facility] Comment on above: Performed By: #### A 1C #### [facility] [address] [place] [address] Dr. Ellie Smith Anion gap [Moles/Vol] 11.1 mmol/L Normal [facility] Comment on above: Performed By: #### A 1C #### [facility] [address] [place] [address] Dr. Ellie Smith AST [Catalytic activity/Vol] 14 U/L Critically low 15-37 [facility] Comment on above: Performed By: #### A 1C #### [facility] [address] [place] [address] Dr. Ellie Smith Bilirubin [Mass/Vol] 0.3 mg/dL Normal 0.2-1.0 [facility] Comment on above: Performed By: #### A 1C #### [facility] [address] [place] [address] Dr. Ellie Smith Calcium [Mass/Vol] 9.1 mg/dL Normal 8.5-10.1 [facility] Comment on above: Performed By: #### A 1C #### [facility] [address] [place] [address] Dr. Ellie Smith Chloride [Moles/Vol] 104 mmol/L Normal 98-107 [facility] Comment on above: Performed By: #### A 1C #### [facility] [address] [place] [address] Dr. Ellie Smith CO2 [Moles/Vol] 26.9 mmol/L Normal 21.0-32.0 [facility] Comment on above: Performed By: #### A 1C #### [facility] [address] [place] [address] Dr. Ellie Smith Creatinine [Mass/Vol] 0.84 mg/dL Normal 0.55-1.02 [facility] Comment on above: Performed By: #### A 1C #### [facility] [address] [place] [address] Dr. Ellie Smith EGFR-AF MEXICAN >60 Normal >=60 [facility] Comment on above: Performed By: #### A 1C #### [facility] [address] [place] [address] Dr. Ellie Smith EGFR-NON AF MEXICAN >60 Normal >=60 [facility] Comment on above: Performed By: #### A 1C #### [facility] [address] [place] [address] Dr. Ellie Smith Globulin (S) [Mass/Vol] 3.1 g/dL Normal [facility] Comment on above: Performed By: #### A 1C #### [facility] [address] [place] [address] Dr. Ellie Smith Glucose [Mass/Vol] 100 mg/dL Normal 74-106 [facility] Comment on above: Performed By: #### A 1C #### [facility] [address] [address] [address] Ellie Smith Potassium [Moles/Vol] 4.0 mmol/L Normal 3.5-5.1 [facility] Comment on above: Performed By: #### A 1C #### [facility] [address] [address] [address] Ellie Smith Protein [Mass/Vol] 6.9 g/dL Normal 6.4-8.2 [facility] Comment on above: Performed By: #### A 1C #### [facility] [address] [place] [address] Dr. Ellie Smith Sodium [Moles/Vol] 138 mmol/L Normal 136-145 [facility] Comment on above: Performed By: #### A 1C #### [facility] [address] [place] [address] Dr. Ellie Smith Urea nitrogen [Mass/Vol] 14.0 mg/dL Normal 7.0-18.0 [facility] Comment on above: Performed By: #### A 1C #### [facility] [address] [place] [address] Dr. Ellie Smith Urea nitrogen/Creatinine [Mass ratio] 16.7 mg/mg Normal [facility] Comment on above: Performed By: #### A 1C #### [facility] [address] [place] [address] Dr. Ellie Smith PROTIMEon 01-18-2022 INR Coag (PPP) [Relative time] 0.95 {INR} Normal [facility] Comment on above: Performed By: #### R EVRT3 #### [facility] [address] [place] [address] Dr. Ellie Smith INR GUIDELINES SEE BELOW Normal [facility] Comment on above: Result Comment: HIMANSHU RED INR: 2.0 - 3.0 CONDITIONS NOT LISTED BELOW 2.5 - 3.5 FOR PROSTHETIC HEART VALVE REPLACEMENT 2.5 - 3.5 RECURRENT THROMBOSIS Performed By: #### R EVRT3 #### [facility] [address] [place] [address] Dr. Ellie Smith PT Coag (PPP) [Time] 10.3 s Normal 9.0-11.6 [facility] Comment on above: Performed By: #### R EVRT3 #### [facility] [address] [place] [address] Dr. Ellie Smith PTTon 01-18-2022 aPTT Coag (Bld) [Time] 27.1 s Normal 22.3-36.2 Th e [facility] Comment on above: Performed By: #### R EVRT3 #### [facility] [address] [place] [address] Dr. Ellie Smith TROPONIN, HIGH SENSITIVITYon 01-18-2022 HSTROP 512.5 pg/mL Critically high 4.0-51.3 [facility] Comment on above: Result Comment: CUT- OFF POINTS HAVE BEEN ESTABLISHED BASED ON THE FOURTH UNIVERSAL DEFINITIONS OF MYOCARDIAL INFARCTION. THE UPPER REFERENCE LIMIT (URL) OF TROPONIN, DEFINED THE 99TH PERCENTILE OF cTnI DISTRIBUTION IN A REFERENCE POPULATION, HAS BEEN CONFIRMED THE DECISION THRESHOLD FOR ME DIAGNOSIS. repeated Performed By: #### A 1C #### [facility] [address] [place] [address] Dr. Ellie Smith XR CHEST 1 Von [...] by: NICOLE SANDERS Date: 2022-01-18 17:38 Normal [facility] Vital Signs Date Time Vital Sign Value Performing Clinician Facility 05-14-2024 13:40-0500 Body height 157.5 cm Priyanka Puentes MD Work Phone: [facility] 05-14-2024 13:40-0500 Body mass index (BMI) [Ratio] 27.07 kg/m2 Priyanka Puentes MD Work Phone: [facility] 05-14-2024 13:40-0500 Body weight 67.13 kg Priyanka Puentes MD Work Phone: [facility] 05-08-2024 13:40-0500 Body height 153.7 cm Karli Dougherty MD Work Phone: [facility] 05-08-2024 13:40-0500 Body mass index (BMI) [Ratio] 29.77 kg/m2 Karli Dougherty MD Work Phone: [facility] 05-08-2024 13:40-0500 Body weight 70.31 kg Karli Dougherty MD Work Phone: [facility] 05-08-2024 13:40-0500 Diastolic blood pressure 64 mm[Hg] Karli Dougherty MD Work Phone: [facility] 05-08-2024 13:40-0500 Heart rate 64 /min Karli Dougherty MD Work Phone: [facility] 05-08-2024 13:40-0500 Systolic blood pressure 132 mm[Hg] Karli Dougherty MD Work Phone: [facility] 08-31-2023 13:23-0400 Diastolic blood pressure 70 mm[Hg] Karli Dougherty MD Work Phone: [facility] 08-31-2023 13:23-0400 Systolic blood pressure 136 mm[Hg] Karli Dougherty MD Work Phone: [facility] 08-31-2023 12:56-0400 Body height 157.5 cm Karli Dougherty MD Work Phone: [facility] 08-31-2023 12:56-0400 Body mass index (BMI) [Ratio] 27.62 kg/m2 Karli Dougherty MD Work Phone: [facility] 08-31-2023 12:56-0400 Body weight 68.49 kg Karli Dougherty MD Work Phone: [facility] 08-31-2023 12:56-0400 Heart rate 72 /min Karli Dougherty MD Work Phone: [facility] 03-14-2023 12:00-0400 Body temperature 98.1 [degF] MD Priyanka Puentes Work Phone: [facility] 03-14-2023 12:00-0400 Diastolic blood pressure 72 mm[Hg] MD Priyanka Puentes Work Phone: [facility] 03-14-2023 12:00-0400 Heart rate 70 /min MD Priyanka Puentes Work Phone: [facility] 03-14-2023 12:00-0400 Respiratory rate 12 /min MD Priyanka Puentes Work Phone: [facility] 03-14-2023 12:00-0400 SaO2% (BldA) [Mass fraction] 95 % MD Priyanka Puentes Work Phone: [facility] 03-14-2023 12:00-0400 Systolic blood pressure 155 mm[Hg] MD Priyanka Puentes Work Phone: [facility] 03-14-2023 06:00-0400 Body weight 66.3 kg MD Priyanka Puentes Work Phone: [facility] 03-12-2023 20:20-0400 Body height 157.48 cm MD Priyanka Puentes Work Phone: [facility] 03-12-2023 17:59-0400 Diastolic blood pressure 91 mm[Hg] MD Priyanka Puentes Work Phone: [facility] 03-12-2023 17:59-0400 Systolic blood pressure 199 mm[Hg] MD Priyanka Puentes Work Phone: [facility] 03-12-2023 17:33-0400 Heart rate 110 /min MD Priyanka Puentes Work Phone: [facility] 03-12-2023 17:33-0400 Respiratory rate 18 /min MD Priyanka Puentes Work Phone: [facility] 03-12-2023 17:33-0400 SaO2% (BldA) [Mass fraction] 96 % MD Priyanka Puentes Work Phone: [facility] 03-12-2023 13:44-0400 Body height 157.48 cm MD Priyanka Puentes Work Phone: [facility] 03-12-2023 13:44-0400 Body temperature 98.6 [degF] MD Priyanka Puentes Work Phone: [facility] 03-12-2023 13:44-0400 Body weight 63.5 kg MD Priyanka Puentes Work Phone: [facility] 03-07-2023 08:00-0400 Body temperature 97.9 [degF] MD Priyanka Puentes Work Phone: [facility] 03-07-2023 08:00-0400 Diastolic blood pressure 77 mm[Hg] MD Priyanka Puentes Work Phone: [facility] 03-07-2023 08:00-0400 Heart rate 78 /min MD Priyanka Puentes Work Phone: [facility] 03-07-2023 08:00-0400 Respiratory rate 16 /min MD Priyanka Puentes Work Phone: [facility] 03-07-2023 08:00-0400 SaO2% (BldA) [Mass fraction] 98 % MD Priyanka Puentes Work Phone: [facility] 03-07-2023 08:00-0400 Systolic blood pressure 167 mm[Hg] MD Priyanka Puentes Work Phone: [facility] 03-07-2023 06:10-0400 Body weight 64.7 kg MD Priyanka Puentes Work Phone: [facility] 03-06-2023 13:53-0400 Body height 157.48 cm MD Priyanka Puentes Work Phone: [facility] 03-05-2023 21:31-0400 Diastolic blood pressure 65 mm[Hg] MD Priyanka Puentes Work Phone: [facility] 03-05-2023 21:31-0400 Heart rate 85 /min MD Priyanka Puentes Work Phone: [facility] 03-05-2023 21:31-0400 SaO2% (BldA) [Mass fraction] 96 % MD Priyanka Puentes Work Phone: [facility] 03-05-2023 21:31-0400 Systolic blood pressure 145 mm[Hg] MD Priyanka Puentes Work Phone: [facility] 03-05-2023 18:47-0400 Respiratory rate 18 /min MD Priyanka Puentes Work Phone: [facility] 03-05-2023 18:00-0400 Body height 157.48 cm MD Priyanka Puentes Work Phone: [facility] 03-05-2023 18:00-0400 Body temperature 97.1 [degF] MD Priyanka Puentes Work Phone: [facility] 03-05-2023 18:00-0400 Body weight 65.7 kg MD Priyanka Puentes Work Phone: [facility] 02-16-2023 13:38-0400 Body height 157.48 cm Priyanka Puenets Work Phone: [facility] 250 DO Work Phone: 02-16-2023 13:38-0400 Body mass index (BMI) [Ratio] 26.52 kg/m2 Priyanka Puentes Work Phone: [facility] 250 DO Work Phone: 02-16-2023 13:38-0400 Body surface area Derived from formula 1.67 m2 Priyanka Malcolmyer Work Phone: [facility] 250 DO Work Phone: 02-16-2023 13:38-0400 Body weight 65.77 kg Edzeeshan Malcolmyer Work Phone: [facility] 250 DO Work Phone: 02-16-2023 13:38-0400 Diastolic blood pressure 62 mm[Hg] Edzeeshan Malcolmyer Work Phone: [facility] 250 DO Work Phone: 02-16-2023 13:38-0400 Heart rate 76 /min Edzeeshan Malcolmyer Work Phone: [facility] 250 DO Work Phone: 02-16-2023 13:38-0400 Systolic blood pressure 128 mm[Hg] Edzeeshan Malcolmyer Work Phone: [facility] 250 DO Work Phone: 08-24-2022 14:35-0400 Body height 157.48 cm Priyanka Malcolmyer Work Phone: [facility] 250 DO Work Phone: 08-24-2022 14:35-0400 Body mass index (BMI) [Ratio] 27.98 kg/m2 Priyanka Malcolmyer Work Phone: [facility] 250 DO Work Phone: 08-24-2022 14:35-0400 Body surface area Derived from formula 1.71 m2 Priyanka Malcolmyer Work Phone: [facility] 250 DO Work Phone: 08-24-2022 14:35-0400 Body weight 69.4 kg Edzeeshan Malcolmyer Work Phone: [facility] 250 DO Work Phone: 08-24-2022 14:35-0400 Diastolic blood pressure 54 mm[Hg] Priyanka Schrader Yunyer Work Phone: [facility] 250 DO Work Phone: 08-24-2022 14:35-0400 Heart rate 82 /min Priyanka Schrader Yunyer Work Phone: [facility] 250 DO Work Phone: 08-24-2022 14:35-0400 Systolic blood pressure 132 mm[Hg] Priyanka Schrader Yunyer Work Phone: [facility] 250 DO Work Phone: 03-17-2022 15:30-0400 Body height 157.48 cm Priyanka Schrader Yunyer Work Phone: [facility] 600 DO Work Phone: 03-17-2022 15:30-0400 Body mass index (BMI) [Ratio] 30.18 kg/m2 Priyanka Schrader Yunyer Work Phone: [facility] [place] 600 DO Work Phone: 03-17-2022 15:30-0400 Body surface area Derived from formula 1.76 m2 Priyanka Malcolmyer Work Phone: [facility] [place] 600 DO Work Phone: 03-17-2022 15:30-0400 Body weight 74.84 kg Priyanka Malcolmyer Work Phone: [facility] [place] 600 DO Work Phone: 03-17-2022 15:30-0400 Diastolic blood pressure 58 mm[Hg] Priyanka Malcolmyer Work Phone: [facility] [place] 600 DO Work Phone: 03-17-2022 15:30-0400 Heart rate 80 /min Edzeeshan Malcolmyer Work Phone: [facility] [place] 600 DO Work Phone: 03-17-2022 15:30-0400 Systolic blood pressure 130 mm[Hg] Edward Macrina Hemeyer Work Phone: [facility] 600 DO Work Phone: 02-15-2022 14:39-0400 Body height 157.48 cm Edzeeshan Malcolmyer Work Phone: [facility] 250 DO Work Phone: 02-15-2022 14:39-0400 Body mass index (BMI) [Ratio] 30.18 kg/m2 Edzeeshan Macrina Hemeyer Work Phone: [facility] 250 DO Work Phone: 02-15-2022 14:39-0400 Body surface area Derived from formula 1.76 m2 Larryzeeshan Macrina Yunyer Work Phone: [facility] 250 DO Work Phone: 02-15-2022 14:39-0400 Body weight 74.84 kg Larryzeeshan Malcolmyer Work Phone: [facility] 250 DO Work Phone: 02-15-2022 14:39-0400 Diastolic blood pressure 60 mm[Hg] Edward Macrina Hemeyer Work Phone: [facility] 250 DO Work Phone: 02-15-2022 14:39-0400 Heart rate 78 /min Edzeeshan Schrader Hemeyer Work Phone: [facility] 250 DO Work Phone: 02-15-2022 14:39-0400 Systolic blood pressure 140 mm[Hg] Edward Macrina Hemeyer Work Phone: [facility] 250 DO Work Phone: 02-15-2022 14:39-0400 10 1 Priyanka Puentes Work Phone: [facility] 250 DO Work Phone: Comment on above: [id number] TS 02-03-2022 17:15-0400 Diastolic blood pressure 84 mm[Hg] MD Priyanka Puentes Work Phone: [facility] 02-03-2022 17:15-0400 Heart rate 78 /min MD Priyanka Puentes Work Phone: [facility] 02-03-2022 17:15-0400 Respiratory rate 20 /min MD Priyanka Puentes Work Phone: [facility] 02-03-2022 17:15-0400 SaO2% (BldA) [Mass fraction] 94 % MD Priyanka Puentes Work Phone: [facility] 02-03-2022 17:15-0400 Systolic blood pressure 185 mm[Hg] MD Priyanka Puentes Work Phone: [facility] 02-03-2022 16:00-0400 Body temperature 97.8 [degF] MD Priyanka Puentes Work Phone: [facility] 02-03-2022 10:25-0400 Body height 157.48 cm MD Priyanka Puentes Work Phone: [facility] 02-03-2022 10:25-0400 Body weight 77.5 kg MD Priyanka Puentes Work Phone: [facility] 01-21-2022 12:00-0400 Body temperature 97.6 [degF] MD Priyanka Puentes Work Phone: [facility] 01-21-2022 12:00-0400 Diastolic blood pressure 81 mm[Hg] MD Priyanka Puentes Work Phone: [facility] 01-21-2022 12:00-0400 Heart rate 73 /min MD Priyanka Puentes Work Phone: [facility] 01-21-2022 12:00-0400 Respiratory rate 20 /min MD Priyanka Puentes Work Phone: [facility] 01-21-2022 12:00-0400 SaO2% (BldA) [Mass fraction] 94 % MD Priyanka Puentes Work Phone: [facility] 01-21-2022 12:00-0400 Systolic blood pressure 150 mm[Hg] MD Priyanka Puentes Work Phone: [facility] 01-21-2022 05:59-0400 Body weight 79.6 kg MD Priyanka Puentes Work Phone: [facility] 01-19-2022 09:50-0400 Body height 157.48 cm MD Priyanka Puentes Work Phone: [facility] 01-18-2022 00:00-0400 55 1 Priyanka Puentes Work Phone: [facility] 250 DO Work Phone: Comment on above: [id number] 01-01-2022 11:00-0400 Body height 157.48 cm Eva Panda Other [employer] Other 01-01-2022 11:00-0400 Body mass index (BMI) [Ratio] 31.64 kg/m2 Eva Panda Other [employer] Other 01-01-2022 11:00-0400 Body temperature 97.1 [degF] Eva Panda Other [employer] Other 01-01-2022 11:00-0400 Body weight 78.47 kg Eva Panda Other [employer] Other 01-01-2022 11:00-0400 Diastolic blood pressure 101 mm[Hg] Eva Panda Other [employer] Other 01-01-2022 11:00-0400 Respiratory rate 18 /min Eva Panda Other [employer] Other 01-01-2022 11:00-0400 SaO2% (BldA) [Mass fraction] 96 % Eva Panda Other [employer] Other 01-01-2022 11:00-0400 Systolic blood pressure 156 mm[Hg] Eva Patelmond Other [employer] Other Encounters Encounter Date Encounter Type Care Provider Facility Start: 07-11-2024 End: 07-11-2024 Clinisync Result Encounter Generic External Data Provider [facility] External Department Unsolicited Start: 07-11-2024 End: 07-11-2024 Clinisync Result Encounter Generic External Data Provider [facility] External Department Unsolicited Start: 06-11-2024 End: 06-11-2024 Telephone encounter Priyanka [...] 15 minutes Karli Dougherty MD Work Phone: [facility] Comment on above: Status post percutan eous transluminal coronary angioplasty (Primary Dx); Coronary artery disease involving resighini coronary artery of resighini heart without angina pectoris; Mixed hyperlipidemia; Hypertension, benign; Body mass index (BMI) 29.0-29.9, adult; Dyspnea on exertion; Former smoker Start: 05-08-2024 End: 05-08-2024 ambulatory [facility] Ambulatory Start: 01-22-2024 End: 01-22-2024 ambulatory PRIYANKA PUENTES Not Available Start: 12-13-2023 End: 12-13-2023 ambulatory PRIYANKA PUENTES Not Available Start: 08-31-2023 End: 08-31-2023 Office outpatient visit 15 minutes Karli Dougherty MD Work Phone: [facility] Comment on above: Coronary artery dise ase involving resighini coronary artery of resighini heart without angina pectoris (Primary Dx); Status post percutaneous transluminal coronary angioplasty; Mixed hyperlipidemia; Hypertension, benign; Dyspnea on exertion; BMI 27.0-27.9,adult; Former smoker Start: 08-31-2023 End: 08-31-2023 ambulatory [facility] Ambulatory Start: 08-30-2023 End: 08-30-2023 ambulatory PRIYANKA PUENTES Not Available Start: 08-08-2023 End: 08-08-2023 ambulatory PRIYANKA PUENTES Not Available Start: 07-21-2023 Clinisync Result Encounter Priyanka Puentes MD Work Phone: [facility] External Department Unsolicited Start: 07-21-2023 Clinisync Result Encounter Priyanka Puentes MD Work Phone: [facility] External Department Unsolicited Start: 07-05-2023 End: 07-05-2023 ambulatory PRIYANKA PUENTES Not Available Start: 03-12-2023 End: 03-14-2023 ambulatory Safwan Andreina Facility:[facility] Start: 03-12-2023 End: 03-14-2023 Evaluation and management of inpatient MD Priyanka Puentes Work Phone: [facility] Work Phone: Start: 03-12-2023 End: 03-14-2023 observation encounter MD Priyanka Puentes Work Phone: [facility] Work Phone: Start: 03-06-[address] Priyanka Puentes Facility:[id number] Start: 03-05-2023 End: 03-07-2023 ambulatory Priyanka Puentes Facility:[facility] Start: 03-05-2023 End: 03-07-2023 Evaluation and management of inpatient MD Priyanka Puentes Work Phone: [facility] Work Phone: Start: 03-05-2023 End: 03-07-2023 observation encounter MD Priyanka Puentes Work Phone: [facility] Work Phone: Start: 03-02-2023 Telephone encounter Priyanka bhatt Work Phone: [facility] 600 DO Work Phone: Start: 02-16-2023 Office outpatient vi sit 15 minutes Priyanka Puentes Work Phone: [facility] 250 DO Work Phone: Start: 02-16-[address] Priyanka Puentes Facility: Start: 10-05-2022 End: 10-06-[address] PRIYANKA PUENTES . Facility:[facility] Start: 08-24-2022 Office outpatient vi sit 25 minutes Priyanka Puentes Work Phone: [facility] 250 DO Work Phone: Start: 08-24-[address] Priyanka Puentes Facility: Start: 08-15-2022 End: 08-16-[address] ANUM WOODY Facility:[facility] Start: 06-14-2022 End: 07-19-[address] PRIYANKA PUENTES . Facility:[facility] Start: 04-12-2022 End: 04-13-[address] PRIYANKA PUENTES . Facility:[facility] Start: 03-29-2022 End: 03-30-[address] PRIYANKA PUENTES . Facility:[facility] Start: 03-25-2022 Telephone encounter Priyanka bhatt Work Phone: [facility] 250 DO Work Phone: Start: 03-17-2022 Office outpatient vi sit 25 minutes Priyanka Puentes Work Phone: [facility] [place] 600 DO Work Phone: Start: 03-17-2022 ambulatory Ms. Khanh Persaud Facility: Start: 02-24-2022 End: 06-14-[address] PRIYANKA PUENTES . Facility:[facility] Start: 02-15-2022 Office outpatient vi sit 25 minutes Priyanka Puentes Work Phone: [facility] 250 DO Work Phone: Start: 02-07-2022 Telephone encounter Priyanka bhatt Work Phone: [facility] 250 DO Work Phone: Start: 02-03-2022 End: 02-03-2022 Admission to same day surgery center MD Priyanka Puentes Work Phone: [facility] Start: 02-01-2022 End: 02-01-2022 Patient encounter procedure MD Priyanka Puentes Work Phone: [facility] Start: 01-27-2022 End: 01-28-[address] RAQUEL PERSAUD Facility:[facility] Start: 01-18-2022 End: 01-21-2022 Evaluation and management of inpatient MD Priyanka Puentes Work Phone: [facility] Start: 01-18-2022 End: 01-18-2022 ambulatory BRITTNI LOTT . Facility:[facility] Start: 01-01-2022 End: 01-01-2022 ambulatory Eva Panda Other [employer] Other Start: 01-01-2022 Office outpatient ne w 20 minutes Eva Panda [facility] Procedures Date Procedure Procedure Detail Performing Clinician Start: 07-11-2024 Ct lumbar spine w/o contrast material Generic External Data Provider Start: 05-17-2024 ALL LIPID PROFILE (FASTING) Generic External Data Provider Start: 05-17-2024 [facility] CMP (CMP) (FOR [facility] USE) Generic External Data Provider Start: 07-21-2023 [...] contrast MD Priyanka Puentes Work Phone: Start: 09-24-2023 Plain chest X-ray MD Larry Puentes Work Phone: Start: 02-03-2022 CL PTCA Ea Add DAVID Puentes Work Phone: Start: 02-03-2022 CL Stent [...] Start: 03-28-2025 Glaucoma screening Diabetes: Retinopathy Screening [facility] Start: 12-11-2024 End: 12-11-2024 Patient encounter procedure 12/11/2024 1:30 PM EDT Office Visit [facility] [address] [phone] Karli Dougherty MD 703 [facility], [place] [address] [place] [id number] [facility] Start: 08-30-2024 Medicare Annual Wellness Visit Medicare Annual Wellness Visit (AWV) [facility] Start: 07-29-2024 End: 07-29-2024 Patient encounter procedure [facility] Start: 07-15-2024 End: 07-15-2024 Patient encounter procedure [facility] 100 Start: 05-14-2024 End: 05-14-2024 Patient encounter procedure 05/14/2024 1:45 PM EST Office Visit [facility] [address] [place] [address] [place] [address] Priyanka Puentes MD [address] [place] [address] Arrived [facility] 100 Comment on above: Arrived Start: 05-08-2024 End: 05-08-2025 Alanine aminotransferase [Enzymatic activity/volume] in Serum or Plasma by With P-5'-P Alanine Aminotransferase Lab Routine Mixed hyperlipidemia Expected: 05/08/2024 (Approximate), Expires: 05/08/2025 [facility] Service Area Work Phone: Comment on above: Expected: 05/08/2024 (Approximate), Expi res: 05/08/2025 Start: 05-08-2024 End: 05-08-2025 Aspartate aminotransferase [Enzymatic activity/volume] in Serum or Plasma by With P-5'-P Aspartate Aminotransferase Lab Routine Mixed hyperlipidemia Expected: 05/08/2024 (Approximate), Expires: 05/08/2025 [facility] Work Phone: Comment on above: Expected: 05/08/2024 (Approximate), Expi res: 05/08/2025 Start: 05-08-2024 End: 05-08-2025 Comprehensive metabolic 2000 panel - Serum or Plasma Comprehensive Metabolic Panel Lab Routine Hypertension, benign Expected: 05/08/2024 (Approximate), Expires: 05/08/2025 [facility] Work Phone: Comment on above: Expected: 05/08/2024 (Approximate), Expi res: 05/08/2025 Start: 05-08-2024 End: 05-08-2025 Lipid 1996 panel - Serum or Plasma Lipid Panel Lab Routine Mixed hyperlipidemia Expected: 05/08/2024 (Approximate), Expires: 05/08/2025 [facility] Work Phone: Comment on above: Expected: 05/08/2024 (Approximate), Expi res: 05/08/2025 Start: 05-08-2024 End: 05-08-2024 Patient encounter procedure 05/08/2024 1:40 PM EST Office Visit [facility] 703 [facility] [address] [place] [id number] Karli Dougherty MD 703 [facility] [address], [place] [address] [place] [id number] [facility] Start: 08-31-2023 FUV, Provider: Karli Dougherty, Status: Pen, Time: 1:00 PM FUV, Provider: Karli Dougherty, Status: Pen, Time: 1:00 PM [facility] 250 DO Work Phone: Start: 08-08-2023 End: 08-08-2023 Patient encounter procedure 08/08/2023 10:00 AM EST Office Visit [facility] [address] [place] [address] Priyanka Puentes MD [address] [place] [address] [facility] Start: 03-14-2023 [facility] Start: 03-12-2023 Referral to Family Services Manager [facility] Start: 03-12-2023 Hospital admission [facility] Start: 03-12-2023 Physical therapy procedure [facility] Start: 03-12-2023 Referral to occupational therapist [facility] Start: 03-12-2023 [facility] Start: 03-07-2023 [facility] Start: 03-06-2023 Comprehensive metabolic 2000 panel - Serum or Plasma [facility] Start: 03-06-2023 Doppler ultrasonography of bilateral carotid arteries US carotid doppler BI [facility] Start: 03-06-2023 Lipid panel [facility] Start: 03-06-2023 [facility] Start: 03-05-2023 Hospital admission [facility] Start: 03-05-2023 Physical therapy procedure [facility] Start: 03-05-2023 Referral to occupational therapist [facility] Start: 03-05-2023 [facility] Start: 03-05-2023 [facility] Start: 02-16-2023 FUV, Provider: Karli Dougherty, Status: Pen, Time: 1:20 PM FUV, Provider: Karli Dougherty, Status: Pen, Time: 1:20 PM [facility] 250 DO Work Phone: Start: 01-27-2023 Urine screening for protein Diabetes: Urine Protein Screening [facility] Start: 11-15-2022 Hemoglobin A1c measurement Diabetes: Hemoglobin A1C [facility] Start: 08-23-2022 Medicare Annual Wellness (AWV) Medicare Annual Wellness (AWV) [facility] Start: 07-06-2022 FUV, Provider: Karli Dougherty, Status: Pen, Time: 2:20 PM FUV, Provider: Karli Dougherty, Status: Pen, Time: 2:20 PM [facility] Work Phone: Start: 03-17-2022 FUV, Provider: Khanh Mercado, Status: Pen, Time: 3:30 PM FUV, Provider: Khanh Mercado, Status: Pen, Time: 3:30 PM [facility] 250 DO Work Phone: Start: 02-03-2022 [facility] Work Phone: Start: 02-03-2022 Hospital admission [facility] Work Phone: Start: 02-03-2022 CL PTCA Ea Add LAD CL PTCA Ea Add LAD [facility] Start: 02-03-2022 CL Stent 1st Vessel LAD GAYATHRI CL Stent 1st Vessel LAD GAYATHRI [facility] Start: 02-03-2022 [facility] Start: 02-03-2022 End: 02-03-2022 Admission to same day surgery center Departed Surgical Day Care [facility] Start: 02-01-2022 End: 02-01-2022 Patient encounter procedure Departed Clinical [facility]urgical [facility] Start: 01-21-2022 [facility] Work Phone: Start: 01-18-2022 Referral to rechecker [facility] Work Phone: Start: 01-18-2022 Hospital admission [facility] Work Phone: Start: 01-18-2022 Dilation of Coronary Artery, Two Arteries with Four or More Drug-eluting Intraluminal Devices, Percutaneous Approach Dilation of Coronary Artery, Two Arteries with Four or More Drug-eluting Intraluminal Devices, Percutaneous Approach [facility] Start: 01-18-2022 Fluoroscopy of Left Heart using Low Osmolar Contrast Fluoroscopy of Left Heart using Low Osmolar Contrast [facility] Start: 01-18-2022 Fluoroscopy of Multiple Coronary Arteries using Low Osmolar Contrast Fluoroscopy of Multiple Coronary Arteries using Low Osmolar Contrast [facility] Start: 01-18-2022 Measurement of Cardiac Sampling and Pressure, Left Heart, Percutaneous Approach Measurement of Cardiac Sampling and Pressure, Left Heart, Percutaneous Approach [facility] Start: 10-16-2018 Urine screening for protein Diabetes: Urine Protein Screening [facility] Start: 02-21-1992 Zoster Vaccines (1 of 2) Zoster Vaccines (1 of 2) [facility] Start: 02-21-1964 DTaP/Tdap/Td Vaccines (1 - Tdap) DTaP/Tdap/Td Vaccines (1 - Tdap) [facility] Start: 02-21-1960 Diabetes mellitus screening Diabetes Screening [facility] Start: 1942 Lipid panel Lipid Panel [facility] Start: 1942 Medicare Annual Wellness Visit Medicare Annual Wellness Visit (AWV) [facility] Start: 1942 Thyroid stimulating hormone measurement TSH Level [facility] Patient Education [facility] Work Phone: Patient referral [facility] Work Phone: Immunizations Immunization Date Immunization Notes Care Provider Fa cility 04-23-2024 ABRYSVO - Respirator y syncytial virus (RSV), vaccine, bivalent, protein subunit RSV prefusion F, diluent reconstituted, 0.5 mL, PF Priyanka Puentes MD Work Phone: [facility] 04-17-2024 influenza, high dose seasonal, preservative-free Priyanka Puentes MD Work Phone: [facility] 05-09-2023 Influenza, High-dose Seasonal, Quadrivalent, Preservative Free Priyanka Puentes MD Work Phone: [facility] 05-17-2022 Fluzone High-Dose Quadrivalent 0.7 ML Intramuscular Suspension Prefilled Syringe Priyanka Puentes Work Phone: [facility] [email or web address] 250 DO Work Phone: 04-29-2022 Moderna Bivalent Saenz ster Vaccination Priyanka Puentes MD Work Phone: [facility] 04-29-2022 Pfizer COVID-19 Vac Bivalent 30 MCG/0.3ML Intramuscular Suspension Priyanka Puentes Work Phone: [facility] Work Phone: 04-19-2021 influenza, injectabl e, quadrivalent, preservative free Priyanka Puentes Work Phone: [facility] 03-17-2021 Pfizer-BioNTech COVI D-19 Vacc 30 MCG/0.3ML Intramuscular Suspension Priyanka Puentes Work Phone: [facility] [employer] 250 DO Work Phone: 03-16-2021 Pfizer Purple Cap SARS-CoV-2 Vaccination Priyanka Puentes MD Work Phone: [facility] 07-31-2020 COVID-19 Bob Ordonez (Pfizer) MD Priyanka Puentes Work Phone: [facility] 07-30-2020 Pfizer Purple Cap SARS-CoV-2 Vaccination Priyanka Puentes MD Work Phone: [facility] 07-08-2020 Pfizer-BioNTech COVI D-19 Vacc 30 MCG/0.3ML Intramuscular Suspension Priyanka Puentes Work Phone: [place] [address] DO Work Phone: 07-07-2020 Pfizer Purple Cap SARS-CoV-2 Vaccination Priyanka Puentes MD Work Phone: [facility] 07-03-2020 COVID-19 mRNA, Bob wilson (Pfizer) MD Priyanka Puentes Work Phone: [facility] 03-26-2020 Seasonal trivalent influenza vaccine, adjuvanted, preservative free Priyanka Puentes Work Phone: [place] [address] DO Work Phone: 03-25-2020 Seasonal trivalent influenza vaccine, adjuvanted, preservative free Priyanka Puentes MD Work Phone: [facility] 04-09-2019 influenza, injectabl e, quadrivalent, preservative free Priyanka Puentes MD Work Phone: [facility] 04-09-2019 Seasonal trivalent influenza vaccine, adjuvanted, preservative free Priyanka Puentes Work Phone: [place] [address] DO Work Phone: 04-03-2018 influenza, injectabl e, quadrivalent, preservative free Priyanka Puentes Work Phone: [place] [address] DO Work Phone: 04-02-2018 influenza, injectabl e, quadrivalent, preservative free Priyanka Puentes MD Work Phone: [facility] 04-02-2018 pneumococcal conjuga te vaccine, 13 valent Priyanka Puentes Work Phone: [place] [address] DO Work Phone: 03-20-2017 pneumococcal conjuga te vaccine, 13 valent Priyanka Puentes Work Phone: [place] [address] DO Work Phone: 03-13-2017 influenza, seasonal, injectable Priyanka Puentes Work Phone: [place] [address] DO Work Phone: 04-14-2016 influenza, injectabl e, quadrivalent, contains preservative Priyanka Puentes Work Phone: [place] [address] DO Work Phone: 04-12-2016 influenza, injectabl e, quadrivalent, preservative free Priyanka Puentes MD Work Phone: [facility] 04-17-2015 influenza, injectabl e, quadrivalent, preservative free Priyanka Puentes MD Work Phone: [facility] 04-03-2015 influenza, seasonal, injectable Priyanka Puentes Work Phone: [place] [address] DO Work Phone: 05-20-2009 pneumococcal polysaccharide vaccine, 23 valent Priyanka Puentes Work Phone: [place] [address] DO Work Phone: Payers Date Payer Category Payer Private Health Insurance [employer] [id number] 2021 Unknown 2007 Medicare [id number] 1959 Medicare [id number] [id number] 1959 Medicare [id number] [id number] 1942 Unknown [id number] 2.16.840.1.403651.3.579.2. 593 1942 Unknown [id number] 2.16.840.1.355670.3.579.2. 593 1942 Unknown [id number] 2.16.840.1.110326.3.579.2. 593 1942 Unknown [id number] 2.16.840.1.440549.3.579.2. 593 1942 Unknown [id number] 2.16.840.1.502345.3.579.2. 593 1942 Unknown [id number] 2.16.840.1.488739.3.579.2. 593 1942 Unknown [id number] 2.16.840.1.622785.3.579.2. 593 1942 Unknown [id number] 2.16.840.1.152009.3.579.2. 593 1942 Unknown [id number] 2.16.840.1.770477.3.579.2. 356 1942 Unknown [id number] 2.16.840.1.559699.3.579.2. 356 1942 Unknown [id number] 2.16.840.1.991795.3.579.2. 356 1942 Unknown [id number] 2.16.840.1.776205.3.579.2. 356 1942 Unknown [id number] 2.16.840.1.013761.3.579.2. 1244 1942 Unknown [id number] 2.16.840.1.831814.3.579.2. 1244 1942 Unknown [id number] 2.16.840.1.789633.3.579.2. 1259 1942 Unknown [id number] 2.16.840.1.108489.3.579.2. 1259 1942 Unknown [id number] 2.16.840.1.103641.3.579.2. 9 1942 Unknown [id number] 2.16.840.1.095441.3.579.2. 1259 1942 Unknown [id number] 2.16.840.1.120221.3.579.2. 1259 1942 Unknown [id number] 2.16.840.1.770241.3.579.2. 1259 Medicare Medicare Outpatient [id number] Self-pay Self Pay [id number] Unknown [id number] Unknown [facility] [id number] Social History Date Type Detail Facility Start: 02-14-2023 End: 08-30-2023 Sex Assigned At [facility] Healthcare Start: 02-03-2022 End: 08-08-2023 Tobacco smoking status MIIS Ex-smoker (finding) [facility] Start: 1940 Sex Assigned At Female F [facility] Start: 02-14-2023 End: 08-30-2023 Former smoker Former smoker [facility] Healthcare Comment on above: nicotine lozenges; Start: 03-12-2023 Tobacco smoking stat us [facility] Smoker (finding) [facility] History of tobacco use Cigarette Smoker N [facility] Start: 07-05-2023 End: 05-14-2024 Alcohol intake [...] Tobacco Comment Last smoked : 1-5 years [facility] Start: 01-18-2023 Alcohol Comment Caffeine intak e: 3 cups decaf per day [facility] Start: 1940 Sex Assigned At Not on file N S [facility] Start: 08-08-2023 End: 08-31-2023 Tobacco use and exposure Smokeless tobacco non-user [facility] Work Phone: Start: 08-31-2023 End: 05-08-2024 Alcohol intake Lifetime non-drinker (finding) [facility] Work Phone: Start: 08-21-2023 End: 05-08-2024 Exposure to SARS-CoV-2 (event) Not sure [facility] Medical Equipment Procedure Code Equipment Code Equipment Original Text Equipment Identifier Dates [id number] FDA Start: 01-20-2022 Drug-eluting cor onary artery stent, jym-pzrocbrgfjrsc-thbcr er-coated ()[id number] FDA Start: 01-20-2022 Drug-eluting cor onary artery stent, jxf-ufjfefbdvwsju-stwyg er-coated ()[id number] FDA Start: 01-20-2022 Drug-eluting cor onary artery stent, qhf-nlhcsbnghyhbg-qcast er-coated ()[id number] [id number] FDA Start: 01-20-2022 Drug-eluting cor onary artery stent, aqy-fnooolnskoanv-onvjc er-coated [id number] FDA Start: 02-03-2022 [id number] FDA Start: 01-20-2022 [id number] FDA Start: 01-20-2022 [id number] FDA Start: 01-20-2022 [id number] FDA Start: 01-20-2022 [id number] FDA Start: 01-20-2022 [id number] FDA Start: 01-20-2022 Goals Date Patient Goal Desired Activity /State Functional Status Date Assessment Result Facility 03-14-2023 Functional status Patient at Baseline [facility] Work Phone: 03-07-2023 Functional status Patient at Baseline [facility] Work Phone: 03-05-2023 Functional status Disability Sta tus Patient at Baseline [facility] Work Phone: 02-15-2022 PHQ-9 [id number] Moderate (10-14) [facility] 250 DO Work Phone: 02-03-2022 Functional status Patient at Baseline [facility] Work Phone: 01-21-2022 Functional status Patient at Baseline [facility] Work Phone: Mental Status Date Assessment Result Facility 03-14-2023 Cognitive function Cognitive Sta tus Patient at Baseline [facility] Work Phone: 03-07-2023 Cognitive function Cognitive Sta tus Patient at Baseline [facility] Work Phone: 02-03-2022 Cognitive function Cognitive Sta tus Patient at Baseline [facility] Work Phone: 01-21-2022 Cognitive function Cognitive Sta tus Patient at Baseline [facility] Work Phone: Clinical Notes 08-24-2021 to 06-11-2024 Telephone Encounter - Edward J Hemeyer, MD - 06/11/2024 10:42 AM ESTTelephone Encounter - Priyanka Puentes MD - 06/11/2024 10:42 AM ESTTelephone Encounter - Kathia Nieves - 06/11/2024 10:15 AM EST Note Date & Type Note Facility 06-11-2024 Telephone encounter Note Rx sent [facility] 06-11-2024 Miscellaneous Notes Rx sent Steven called, She is going today for her xray on her hip. She states that she will be out of her gabapentin 100 mg today. She is requesting a refill to help with her pain. She stated tht nothing is scheduled yet on getting it fixed. [facility] uses [facility] [place]. documented in this encounter [facility] 06-11-2024 Telephone encounter Note Steven called, She is going today for her xray on her hip. She states that she will be out of her gabapentin 100 mg today. She is requesting a refill to help with her pain. She stated tht nothing is scheduled yet on getting it fixed. [facility] uses [facility] [place]. [facility] 05-28-2024 Telephone encounter Note Called [facility] sOMEHOW THEY DO NOT HAVE THIS ORDER AND THERE WAS NO rx DONE. REPRINTED EXSISTING ORDER AND lm ON Steven'S PHONE THAT IT WOULD BE FAXED OVER THERE. [facility] 05-28-2024 Miscellaneous Notes Called [facility] sOMEHOW THEY DO NOT HAVE THIS ORDER AND THERE WAS NO rx DONE. REPRINTED EXSISTING ORDER AND lm ON Steven'S PHONE THAT IT WOULD BE FAXED OVER THERE. Called and talked with her. Pain relief with 2 gabapentin 100mg. Reviewed lumbar X ray with her, after preview no hip x ray. Will contact [facility] tomorrow and try to get results. Steven left a message on the nurse line. She states she has not heard back on her hip and back xray and that she is still in a lot of pain. She is requesting a call back. documented in this encounter [facility] 05-27-2024 Telephone encounter Note Called and talked with her. Pain relief with 2 gabapentin 100mg. Reviewed lumbar X ray with her, after preview no hip x ray. Will contact [facility] tomorrow and try to get results. [facility] 05-27-2024 Telephone encounter Note Steven left a message on the nurse line. She states she has not heard back on her hip and back xray and that she is still in a lot of pain. She is requesting a call back. [facility] 05-14-2024 History of Presen t [...] is not improving. documented in this encounter [facility] 05-08-2024 History of Presen t [...] coronary angioplasty 2. Coronary artery disease involving resighini coronary artery of resighini heart without angina pectoris Follow Up In Cardiology Follow Up In Cardiology 3. Mixed hyperlipidemia Alanine Aminotransferase Aspartate Aminotransferase Lipid Panel Alanine Aminotransferase Aspartate Aminotransferase Lipid Panel 4. Hypertension, benign Comprehensive Metabolic Panel Comprehensive Metabolic Panel 5. Body mass index (BMI) 29.0-29.9, adult 6. Dyspnea on exertion 7. Former smoker Scribe Attestation By signing my name below, IKatharina LPN, Scribe attest that this documentation has [...] discussion and plan. documented in this encounter [facility] Work Phone: 05-08-2024 Instructions Katharina Seay LPN [...] instructions on exercise. documented in this encounter [facility] Work Phone: 08-31-2023 History of Presen t [...] 3 Assessment/Plan 1. Coronary artery disease involving resighini coronary artery of resighini heart without angina pectoris Follow Up In [...] discussion and plan. documented in this encounter [facility] Work Phone: 08-31-2023 Instructions Ruba Chowdhury LPN [...] instructions on exercise. documented in this encounter [facility] Work Phone: 03-13-2023 Progress note Note Date/Time March 13, 2023 4:47pm [facility] [address] [place] [address] Hospitalist Progress Note Signed Patient: Steven Harding MR#: [id number] : 1940 Acct:[id number] Age/Sex: 83 / F Adm Date: 3 Loc: 4 Room: [address] [place] [address] Type: ADM INOo Attending Dr: Rufus Ricks [...] Hyponatremia of 128. TSH was suppressed on [place] Thyroid and has been checked twice with [...] <Electronically signed by Rufus Ricks DO> 03/13/23 1647 [facility] Work Phone: 1(811) 217-995010-01-2023 History and physical note Author Sima Hdz [facility] March 12, 2023 7:49pm Note Date/Time March 12, 2023 7: 50pm [facility] [address] [place] [address] Hospitalist H&P Signed Patient: Steven Harding MR#: [id number] : 1940 Acct:[id number] Age/Sex: 83 / F Adm Date: 3 Loc: Room: [address] [place] [address] Type: ADM IN Attending Dr: Sima Hdz [...] noted below or in HPI [facility] Medical History Aneurysm Aortic. Being monitored. Per pt found at [facility] during last visit there in [...] Confirmed 03/05/23] thyroid (pork) 60 mg tablet (BATTERY ENGINEER Thyroid) 60 mg PO BID 01/18/22 [History [...] % (Auto) 13.2 % (.) 03/12/23 14:45 Webb % (Auto) 5.1 % (.) 03/12/23 14:45 Eos % (Auto) 2.0 % (.) 03/12/23 14:45 Baso % (Auto) 0.4 % (.) 03/12/23 14:45 Nucleat RBC Rel Count 0.0 /100 WBC (0-0.5) 03/12/23 14:45 Neut # (Auto) 7.0 x10E3/uL (1.8-7.7) 03/12/23 14:45 Lymph # (Auto) 1.2 x10E3/uL (1.00-4.8) 03/12/23 14:45 Webb # (Auto) 0.5 x10E3/uL (0.0-0.8) 03/12/23 14:45 [...] pH 7.5 (5.0-9.0) 03/12/23 15:55 Ur Specific Alto 1.010 (1.001-1.030) 03/12/23 15:55 Urine Protein Negative [...] Hyponatremia of 128. TSH was suppressed on [place] Thyroid and has been checked twice with [...] <Electronically signed by Sima Hdz MD> 03/12/231948 [facility] Work Phone: 1(833) 559-436409-26-2023 Discharge summary Author Chuck Chacon [facility] March 07, 2023 9:30am Note Date/Time March 07, 2023 9:30am [facility] [address] [place] [address] Discharge Summary Signed Patient: Steven Harding MR#: [id number] : 1940 Acct:[id number] Age/Sex: 83 / F Adm Date: 3 Loc: Room: [address] [place] [address]: Chuck Chacon MD Copies to: [...] been attempted on scopolamine patch, and her rechecker had decreased herlosartan dose. She presented again [...] follow-up with her primary care physician and rechecker as an outpatient for further management. She may be reintroduced to some of her cardioprotective antihypertensives in the future if deemed reasonable by her rechecker and primary care physician. 35 minutes spent [...] TABLET BY MOUTH TWICE DAILY thyroid (pork) [BATTERY ENGINEER Thyroid] 60 mg tablet 60 mg PO [...] signed by Chuck Chacon MD> 03/07/23 0930 [facility] Work Phone: 1(904) 842-309209-25-2023 Progress note Author Chuck Chacon [facility] March 06, 2023 1:51pm Note Date/Time March 06, 2023 1:38pm [facility] [address] [place] [address] Hospitalist Progress Note Signed Patient: Steven Harding MR#: [id number] : 1940 Acct:[id number] Age/Sex: 83 / F Adm Date: 3 Loc: Room: [address] [place] [address] Type: ADM INOo Attending Dr: Chuck Chacon [...] 08:32 Clopidogrel Bisulfate 75 Mg Tablet PO 09/24/24 08:59 75 mg DAILY YVROSE Administration Dextrose [...] 1,000 Ml IV 03/07/23 07:49 60 mls/hr .[id number] YVROSE Administration Insulin Aspart 0 units 03/06/23 08:00 03/06/23 11:52 Insulin Aspart 300 Units/3 Ml Insuln.Pen SUBCUT 03/05/24 07:59 Not Given TID.WM.HS [facility] Protocol Metoprolol Tartrate 25 mg 03/06/23 [...] be improved from previous assessment during patient's ME -We will trend orthostatic vital signs -Monitor on telemetry for at least 24 hours -Continue metoprolol, continue to hold losartan, spironolactone and nifedipine for now -May consider restarting low doses in the a.m.-patient has lost close to 60 pounds since her ME-likely that BP medications are more potent -PT/OT [...] signed by Chuck Chacon MD> 03/06/23 1351 [facility] Work Phone: 1(672) 384-256909-25-2023 History and physical note Author Jemal Jones [facility] March 05, 2023 11:19pm Note Date/Time March 05, 2023 10:21pm [facility] [address] [place] [address] Hospitalist H&P Signed Patient: Steven Harding MR#: [id number] : 1940 Acct:[id number] Age/Sex: 83 / F Adm Date: 3 Loc: Room: [address] [place] [address] Type: ADM INOo Attending Dr: Jemal Jones [...] current visual changes, headache. Noted that her rechecker has recently decreased her losartan due to [...] mentioned elsewhere in the documentation [facility] Medical History Aneurysm Aortic. Being monitored. Per pt found at [facility] during last visit there in [...] Confirmed 03/05/23] thyroid (pork) 60 mg tablet (BATTERY ENGINEER Thyroid) 60 mg PO BID 01/18/22 [History [...] % (Auto) 14.7 % (.) 03/05/23 18:07 Webb % (Auto) 5.4 % (.) 03/05/23 18:07 Eos % (Auto) 2.8 % (.) 03/05/23 18:07 Baso % (Auto) 0.5 % (.) 03/05/23 18:07 Nucleat RBC Rel Count 0.1 /100 WBC (0-0.5) 03/05/23 18:07 Neut # (Auto) 8.7 x10E3/uL (1.8-7.7) H 03/05/23 18:07 Lymph # (Auto) 1.7 x10E3/uL (1.00-4.8) 03/05/23 18:07 Webb # (Auto) 0.6 x10E3/uL (0.0-0.8) 03/05/23 18:07 [...] <Electronically signed by Jemal Jones MD> 03/05/23 3387 [facility] Work Phone: 1([phone]) 223-694308-25-2022 [facility] Progress note Author Wiley Beal [facility] January 20, 2022 1:31pm Note Date/Time January 20, 2022 1: 31pm [facility] [address] [place] [address] Hospitalist Progress Note Signed Patient: Steven Harding MR#: [id number] : 1940 Acct:[id number] Age/Sex: 81 / F Adm Date: 2 Loc: Room: [address] [place] [address] Type: ADM IN Attending Dr: Wiley Beal [...] of care and confirmed it with the resident/student/BATTERY ENGINEER. Patient was seen and examined at bedside [...] by Wiley Beal MD> 01/20/22 1331 [facility] Work Phone: 1(803) 201-762108-11-2022 [facility] Progress note Author Wiley Beal [facility] January 19, 2022 1:35pm Note Date/Time January 19, 2022 1: 35pm [facility] [address] [place] [address] Hospitalist Progress Note Signed Patient: Steven Harding MR#: [id number] : 1940 Acct:[id number] Age/Sex: 81 / F Adm Date: 2 Loc: Room: [address] [place] [address] Type: ADM IN Attending Dr: Wiley Beal [...] pain. First [facility]. he pain is much better CXR [facility] ED reported as no acute cardiopulmonary abnormality EKG [facility] ED (i personally reviewed it) shows NSR@90 bpm no significant acute changes nitro patch(started in [facility]) Morphine prn Telemetry Antiplatelet: Aspirin Anticoagulation: Heparin Drip (started in [facility]) Start Beta sarbjit therapy Serial EKGs [...] bedside Documented By: Wiley Beal MD 01/19/22 9800 Signed By: <Electronically signed by Wiley Beal MD> 01/19/22 0099 [facility] Work Phone: 1([phone]) 480-714608-10-2022 Consult note Author Karli Dougherty [facility] January 19, 2022 12:38pm Note Date/Time January 19, 2022 12 :25pm [facility] [address] [place] [address] Cardiology Consult Note Signed with Addenda Patient: Steven Harding MR#: [id number] : 1940 Acct:[id number] Age/Sex: 81 / F Adm Date: 2 Loc: Room: [address] [place] [address] Type: ADM IN Attending Dr: Wiley Beal [...] Confirmed 01/18/22] thyroid (pork) 60 mg tablet (BATTERY ENGINEER Thyroid) 60 mg PO DAILY 01/18/22 [History [...] x10E3/uL Lymph # (Auto) 1.5 (1.00-4.8) x10E3/uL Webb # (Auto) 0.4 (0.0-0.8) x10E3/uL Eos # [...] signed by MD Karli Dougherty> 01/19/22 1237 [facility] Work Phone: 1(336) 998-812308-10-2022 History and physical note Author Justa Westfall [facility] January 19, 2022 7:35am Note Date/Time January 18, 2022 11: 29pm [facility] [address] [place] [address] Hospitalist H&P Signed Patient: Steven Harding MR#: [id number] : 1940 Acct:[id number] Age/Sex: 81 / F Adm Date: 2 Loc: Room: [address] [place] [address] Type: ADM IN Attending Dr: Justa Westfall MD Copies to: MD Justa Santos MD~ HPI DATE OF EXAMINATION: 01/18/22 HISTORY OF PRESENT ILLNESS: This is a pleasant 81F with PMH of HTN, PAD(s/p stenting), Prediabetes, Hypothyroidism who p/w chest pain to the [facility] and transferred for the evaluation [...] Confirmed 01/18/22] thyroid (pork) 60 mg tablet (BATTERY ENGINEER Thyroid) 60 mg PO DAILY 01/18/22 [History [...] pain. [facility] pain is much better CXR [facility] ED reported as no acute cardiopulmonary abnormality EKG [facility] ED (i personally reviewed it) shows NSR@90 bpm no significant acute changes nitro patch(started in [facility]) Morphine prn Telemetry Antiplatelet: Aspirin Anticoagulation: Heparin Drip (started in [facility]) Start Beta sarbjit therapy Serial EKGs [...] bedside Documented By: Justa Westfall MD 01/18/22 7378 Signed By: <Electronically signed by Justa Westfall MD> 01/19/22 0744 [facility] Work Phone: 1(586) 785-805107-23-2022 Evaluation note* Encounter Date Diagnosis Assessment Notes [...] worsening symptoms or concerns. You may use [id number] lidocaine gel to the rash for comfort. Patient reports her residential therapist is Dr. Lenz, she will follow-up with them on Monday. [employer] Other 03-15-2022 History of Present illness Narrative* [...] and importance of staying active and exercise [facility] 250 DO Work Phone: Discharge summary Author Wiley Beal [facility] January 22, 2022 4:43pm Note Date/Time January 21, 2022 1: 46pm [facility] [address] [place], [place] [id number] Discharge Summary Signed Patient: Steven Harding MR#: [id number] : 1940 Acct:[id number] Age/Sex: 81 / F Adm Date: 2 Loc: Room: [address] [place] [address]: Wiley Beal MD Copies to: [...] was anticoagulated with heparin, taken to the [facility]. On January 19 she was found to [...] % (Auto) 74.5, Lymph % (Auto) 14.2, Webb % (Auto) 6.7, Eos % (Auto) 4.2, Baso % (Auto) 0.4, Neut # (Auto) 6.3, Lymph # (Auto) 1.2, Webb # (Auto) 0.6, Eos# (Auto) 0.4, Baso [...] You are scheduled for STAGED ANGIOPLASTY at [facility] on 02/03/2022 at 1:00pm with Dr Hooks; please check in at 11:00am- follow instructions You are scheduled for COVID testing at [facility] on 02/01/2022 at 10:00am for upcoming [...] doctor or pharmacist, without first calling the rechecker who implanted the stent. If you require [...] weight lifting, stair steppers, etc. until the rechecker approves these activities. Check with the rechecker on your first follow-up visit. CALL YOUR PHYSICIAN at [phone]: -If bleeding should occur from the catheter insertion site- apply pressure to the site then immediately call us. -Report any fever, redness, drainage, increased swelling, or firmness at the catheter insertion site. Some bruising or slight swelling may be present at thetime of discharge. -Should arm or leg become cold, numb, white, or blue, contact the rechecker immediately. -IF you should experience episodes of [...] is recommended. Please call Central Scheduling at [phone] to schedule your appointment.] The attending rechecker or [facility] nurse clinician should provide you with specific instructions regarding activity, diet, medications, and further follow up for you. Follow the medication instructions provided on your discharge. If the dosages and instructions on this sheet differ from the dosage and instructions on the bottle, follow the instructions on the bottle. [facility] is not responsible for incorrect prescription information [...] tablet 100 mg PO DAILY thyroid (pork) [BATTERY ENGINEER Thyroid] 60 mg tablet 60 mg PO DAILY Label Comments: TAKE 1 TABLET BY MOUTH TWICE DAILY ON AN EMPTY STOMACH Other Ambulatory Orders: Basic Metabolic Panel (Routine) Timeframe: 20220125 Location: Determined by Patient Ordered By: Diony Hooks Follow Up: [facility] [Outside] - 01/27/22 4:00 pm Documented By: Wiley Beal MD 01/21/22 1342 Signed By: <Electronically signed by Wiley Beal MD> 01/22/22 1643 [facility] Work Phone: Discharge summary Author Rufus Ricks [facility] March 14, 2023 3:31pm Note Date/Time March 14, 2023 3: 31pm [facility] [address] [place] [address] Discharge Summary Signed Patient: Steven Harding MR#: [id number] : 1940 Acct:[id number] Age/Sex: 83 / F Adm Date: 3 Loc: Room: [address] [place] [address]: Rufus Ricks DO Copies to: MD Rufus Santos, ~ Providers Date of Discharge: 03/14/23 Discharging Provider: [...] DAILY Qty: 30 0RF Held thyroid (pork) [BATTERY ENGINEER Thyroid] 60 mg tablet 60 mg PO [...] signed by Rufus Ricks DO> 03/14/23 1531 [facility] Work Phone: evaluation note* Diagnosis Onset Date Resolution Status ACS (acute coronary syndrome) acute Hypertension acute Hypothyroidism acute NSTEMI (non-ST elevated myocardial infarction) acute Peripheral vascular disease acute Prediabetes acute [facility] Work Phone: evaluation note* Diagnosis Onset Date Resolution Status Dizziness acute [facility] Work Phone: Evaluation note* Diagnosis Onset Date Resolution Status Acute hyponatremia acute Dizziness acute Pre-syncope acute [facility] Work Phone: evaluation note* Diagnosis Onset Date Resolution Status Acute hyponatremia acute Dizziness acute Pre-syncope acute Acute hyponatremia acute CAD (coronary artery disease) acute Hypertensive urgency acute Hypothyroidism acute [facility] Work Phone: evaluation note* Diagnosis Coronary artery disease involving resighini coronary artery of resighini heart without angina pectoris- Primary Status post percutaneous transluminal coronary angioplasty Postsurgical percutaneous transluminal coronary angioplasty status Mixed hyperlipidemia Hypertension, benign Essential hypertension, benign Dyspnea on exertion Other dyspnea and respiratory abnormality BMI 27.0-27.9,adult Former smoker Personal history of tobacco use, presenting hazards to health documented in this encounter [facility] Work Phone: Evaluation note* Diagnosis Status post percutaneous transluminal coronary angioplasty- Primary Postsurgical percutaneous transluminal coronary angioplasty status Coronary artery disease involving resighini coronary artery of resighini heart without angina pectoris Mixed hyperlipidemia Hypertension, benign Essential hypertension, benign Body mass index (BMI) 29.0-29.9, adult Dyspnea on exertion Other dyspnea and respiratory abnormality Former smoker Personal history of tobacco use, presenting hazards to health documented in this encounter [facility] Work Phone: Evaluation note* Diagnosis Acute right-sided low back pain with right-sided sciatica Right hip pain Pain in joint, pelvic region and thigh Pain of right sacroiliac joint Overweight (BMI 25.0-29.9) Overweight documented in this encounter [facility] HealthcareEvaluation note* Diagnosis Acute right-sided low back pain with right-sided sciatica documented in this encounter [facility] HealthcareHistory and physical note Author Sima Hdz [facility] March 12, 2023 7:49pm Note Date/Time March 12, 2023 7: 50pm [facility] [address] [place] [address] Hospitalist H&P Signed Patient: Steven Harding MR#: [id number] : 1940 Acct:[id number] Age/Sex: 83 / F Adm Date: 3 Loc: Room: [address] [place] [address] Type: ADM IN Attending Dr: Sima Hdz [...] noted below or in HPI [facility] Medical History Aneurysm Aortic. Being monitored. Per pt found at [facility] during last visit there in [...] Confirmed 03/05/23] thyroid (pork) 60 mg tablet (BATTERY ENGINEER Thyroid) 60 mg PO BID 01/18/22 [History [...] % (Auto) 13.2 % (.) 03/12/23 14:45 Webb % (Auto) 5.1 % (.) 03/12/23 14:45 Eos % (Auto) 2.0 % (.) 03/12/23 14:45 Baso % (Auto) 0.4 % (.) 03/12/23 14:45 Nucleat RBC Rel Count 0.0 /100 WBC (0-0.5) 03/12/23 14:45 Neut # (Auto) 7.0 x10E3/uL (1.8-7.7) 03/12/23 14:45 Lymph # (Auto) 1.2 x10E3/uL (1.00-4.8) 03/12/23 14:45 Webb # (Auto) 0.5 x10E3/uL (0.0-0.8) 03/12/23 14:45 [...] pH 7.5 (5.0-9.0) 03/12/23 15:55 Ur Specific [place] 1.010 (1.001-1.030) 03/12/23 15:55 Urine Protein Negative [...] Hyponatremia of 128. TSH was suppressed on [place] Thyroid and has been checked twice with [...] <Electronically signed by Sima Hdz MD> 03/12/231948 [facility] Work Phone: History general Narrative - Reported* Type Description Date Medical History Hypertension Medical History Insulin Resistant Surgical History teeth extraction upper Surgical History skin cancer removal 2018 Hospitalization History see above [employer] Other History of Present illness Narrative* The [...] the patient complains of medication side effects. -[facility] 250 DO Work Phone: History of Present [...] medication regimen. She denies medication side effects. [facility] 600 DO Work Phone: History of [...] her back in 6 months and follow-up [facility] 250 DO Work Phone: [facility]: [facility] Work Phone: Progress note Author Wiley Beal [facility] January 21, 2022 1:42pm Note Date/Time January 21, 2022 1: 42pm [facility] [address] [place] [address] Hospitalist Progress Note Signed Patient: Steven Harding MR#: [id number] : 1940 Acct:[id number] Age/Sex: 81 / F Adm Date: 2 Loc: Room: [address] [place] [address] Type: ADM IN Attending Dr: Wiley Beal [...] of care and confirmed it with the resident/student/BATTERY ENGINEER. 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 Procedures Follow Up In Cardiology Karli Dougherty MD [address] [facility] [address] [place] [address] Karli Dougherty MD [address] [facility] [address] [place] [address] Referral ID Status Reason Start Date Expiration Date V isits Requested Visits Authorized [id number] Authorized 08/31/2023 08/30/2024 1 1 [facility] Work Phone: Chief Complaint and Reason for [...] Documents on File Type Date Recorded 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 * Patient was recently hospitalized at [facility]. The patient was seen in Cardiology consult with subsequent cardiovascular management by [facility]. Hospitalization records have been reviewed. * Reason for Cardiology Consultation: ACS * Consulting Acid Operator: Dr. Dougherty * Cardiovascular testing: Echo, cath with subsequent PCI * Changes to cardiovascular medical regimen at time of discharge: ASA, brilinta, lipitor lopressor, aldactone * Discharge disposition: Home * Reports admit at [facility] d/t 'kidney pain and being dehydrated'. Spironolactone [...] tomorrow * 3. Begin cardiac rehab at [facility] * 4. Lipid profile in 2 months (new statin initiation) * 5. Keep scheduled f/u in 6 weeks to reassess * 6. Obtain CT from [facility] to verify surveillance testing. * 7. 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 Procedures Follow Up In Cardiology Karli Dougherty MD [address] [place] [address] Phone: tel: fax: Karli Dougherty MD [address] [place] [address] [address], [address] [address] Phone: tel: fax: Referral ID Status Reason Start Date Expiration Date V isits Requested Visits Authorized [id number] Authorized 08/31/2023 08/30/2024 1 1 Reason Comments [...] MD Admit Provider, Attending Provi mireille Active [employer] Roboticist Relationship Specialty Start Date End Date Priyanka Puentes MD [address] [place] [address] (Fax) PCP - ACO Reach 11/03/22 Priyanka Puentes MD [address] [place] [phone] PCP - General Family Medicine 12/21/22 Karli Dougherty MD [address] [address] Referring Physician Cardiology 07/20/23 [employer] Roboticist Relationship Specialty Start Date End Date Priyanka Puentes MD [address] [place] [address] PCP - General 06/12/99 [employer] Roboticist Relationship Specialty Start Date End Date Priyanka Puentes MD [address] [place] [address] PCP - General 06/12/99 [employer] Roboticist Relationship Specialty Start Date End Date Priyanka Puentes MD [address] [place] [address] (Fax) PCP - ACO Reach 11/03/22 Priyanka Puentes MD [address] [place] [address] (Fax) PCP - General Family Medicine 12/21/22 Karli Dougherty MD [address] [place] [address] Referring Physician Cardiology 07/20/23 [employer] Roboticist Relationship Specialty Start Date End Date Priyanka Puentes MD [address] [place] [address] (Fax) PCP - ACO Reach 11/03/22 Priyanka Puentes MD [address] [place] [address] (Fax) PCP - General Family Medicine 12/21/22 Karli Dougherty MD [address] [address] Referring Physician Cardiology 07/20/23 [employer] Roboticist Relationship Specialty Start Date End Date Priyanka Puentes MD [address] [place] [address] (Fax) PCP - ACO Reach 11/03/22 Priyanka Puentes MD [address] [place] [address] (Fax) PCP - General Family Medicine 12/21/22 Karli Dougherty MD [address] [address] Referring Physician Cardiology 07/20/23 [employer] Roboticist Relationship Specialty Start Date End Date Priyanka Puentes MD [address] [place] [address] (Fax) PCP - ACO Reach 11/03/22 Priyanka Puentes MD [address] [place] [address] (Fax) PCP - General Family Medicine 12/21/22 Karli Dougherty MD [address] [address] Referring Physician Cardiology 07/20/23 [employer] Roboticist Relationship Specialty Start Date End Date Priyanka Puentes MD [address] [place] [address] (Fax) PCP - ACO Reach 11/03/22 Priyanka Puentes MD [address] [place] [address] (Fax) PCP - General Family Medicine 12/21/22 Karli Dougherty MD [address] [address] Referring Physician Cardiology 07/20/23 [employer] Roboticist Relationship Specialty Start Date End Date Priyanka Puentes MD [address] [place] [address] PCP - ACO Reach 11/03/22 Priyanka Puentes MD [address] [place] [address] PCP - General Family Medicine 12/21/22 Karli Dougherty MD [address] [address] Referring Physician Cardiology 07/20/23 INFORMATION SOURCE (unrecogn ized section and content) DATE CREATED AUTHOR 10/18/2022 [facility] DATE CREATED AUTHOR AUTHOR'S ORGANIZ ATION 02/18/2023 [employer] DATE CREATED AUTHOR AUTHOR'S ORGANIZ ATION 03/15/2023 [facility] DATE CREATED AUTHOR AUTHOR'S ORGANIZ ATION 03/18/2023 [facility] DATE CREATED AUTHOR AUTHOR'S ORGANIZ ATION 05/11/2024 [facility] DATE CREATED AUTHOR AUTHOR'S ORGANIZ ATION 05/16/2024 [facility] EPIC Goals (unrecognized section [...] BE BASED ON THE PRIMARY CLINICAL RECORDS. [employer] provides no warranty or guarantee of the accuracy or completeness of information in this document.
[2024-07-16 14:22] LABS: Free T3 1.79 pg/mL (2.18-3.98); Thyroid Stimulating Hormone 1.771 uIU/mL (0.358-3.740)
[2024-07-16 14:40] LABS: Free T4 1.73 ng/dL (0.76-1.46)
== END 2024-07-16 13:06 | disposition home or self-care (01) ==
LOC: LAB 13:07
PROVIDERS: PCP Family Medicine; Visit Provider Family Medicine
DX: R53.82 Chronic fatigue, unspecified (principal); E03.9 Hypothyroidism, unspecified
CPT/HCPCS: 36415; 84439; 84443; 84481

== ENCOUNTER 2024-07-22 12:01 | Outpatient (OUT) | payer MEDICARE, OTHER, SELFPAY ==
--- OUTSIDE RECORDS SUMMARY | 2024-07-22 12:22 | XMS_ITS | CCD ---
Author Organization [facility] Care Team Providers Care Artists' Model Name Role Phone Eva Panda Unavailable MD Priyanka Puentes Primary Care Provider [phone] MD Justa Westafll Admit Provider MD Wiley Beal Attending Provider [...] Care Provider MD Monique Tierney Emergency Provider [phone] MD Jeaml Jones Admit Provider [phone] MD Jemal Jonse Attending Provider MD Chuck Chacon Attending Provider SHANTEL Dhillon Emergency Provider MD Sima Hdz Admit Provider MD Sima Hdz Attending Provider [phone] [facility] Rufus Cordon Attending Provider Dr. Priyanka Puentes [...] Ricks Attending Unavailable Priyanka Puentes MD Unavailable [phone] Priyanka Puentes MD Primary Care Provider [phone] Karli Dougherty MD Unavailable [phone] Priyanka Puentes MD Primary Care Provider Priyanka Puentes MD Primary Care Provider KARLI DOUGHERTY Attending Unavailable PRIYANKA PUENTES Primary Care Unavailable KARLI DOUGHERTY Attending Unavailable KARLI DOUGHERTY Referring Unavailable PRIYANKA PUENTES Primary Care Unavailable Priyanka Puentes MD Unavailable [phone] Priyanka Puentes MD Primary Care Provider PRIYANKA PUENTES Attending Unavailable PRIYANKA PUENTES Attending Unavailable PRIYANKA PUENTES Attending Unavailable PRIYANKA PUENTES Attending Unavailable PRIYANKA PUENTES Attending Unavailable PRIYANKA PUENTES Attending Unavailable Priyanka Puentes MD Unavailable Priyanka Puentes MD Primary Care Provider [phone] Allergies Allergy Classification Reported Allergen(s) Allergy Type Date of Onset Reaction(s) Facility (1 source) diphenhydrAMINE Drug Allergy anaphylaxis babberly Other (7 sources) Ticagrelor; Translations: [Brilinta TABS] Drug Allergy 03-17-20 23 [facility] (4 sources) Codeine; Translations: [CODEINE] Drug Allergy 01-18-20 23 [place] [facility] (1 source) Penicillin Drug Allergy 01-19-20 22 [facility] (2 sources) Ticagrelor; Translations: [TICAGRELOR] Drug Allergy 01-25-20 22 [facility] (1 source) Antihistamines - Ethanolamine Drug allergy (disorder) 01-27-20 [facility] (2 sources) Antihistamines Allergy to substance 03-12-20 [facility] (9 sources) Calcium Citrate Drug Allergy 01-18-20 [facility] (9 sources) Cephalexin Drug Allergy 01-18-20 23 Hives [facility] (9 sources) Ciprofloxacin Drug Allergy 01-18-20 23 [facility] (12 sources) Clindamycin; Translations: [CLINDAMYCIN] Drug Allergy 01-18-20 23 Diarrhea [facility] (11 sources) Codeine Drug Allergy 01-18-20 23 Unknown [facility] (9 sources) diphenhydrAMINE Drug Allergy 01-18-20 [facility] (10 sources) Minocycline; Translations: [MINOCYCLINE] Drug Allergy 01-18-20 Diarrhea [facility] (9 sources) Erythromycin Base Drug Allergy 01-18-20 Hives [facility] (2 sources) Minocycline Drug Allergy 01-18-20 Diarrhea [facility] Work Phone: Medications Current Medications Medication [...] DO Active amLODIPine 5 mg oral tablet (12 sources) Dihydropyridine Calcium Channel Sarbjit Start: 01-30-2024 [...] B Complex Vitamins (vitamin B complex) tablet (8 sources) take 1 tablet by mouth once [...] 30 Refills: 11 Ordered: 15-Feb-2022 Lester Persaud RV MECHANIC-SENIOR IT ASSISTANTKhanh Start : 15-Feb-2022 Active CRANBERRY CONCENTRATE PO (8 sources) take 1 tablet by mouth once daily CRANBERRY CONCENTRATE PO Take 1 tablet by mouth Daily Active cranberry preparation 500 mg oral capsule (1 source) Non-Standardized Food Allergenic Extract, Non-Standardized Plant Allergenic Extract take 1 capsule by mouth in the morning cranberry 500 mg capsule Take 1 capsule by mouth early in the morning.. Active gabapentin 100 mg oral capsule (5 sources) Anti-epileptic Agent Start: 05-20-20 End: 07-12-19 25 gabapentin (Neurontin) 100 MG capsule Indications: Acute right-sided low back pain with right-sided sciatica Titrate from 1 to 4 capsules three times daily as needed for pain 100 capsule 06/11/2024 Active levothyroxine sodium 0.112 mg oral tablet (11 sources) l-Thyroxine Start: 08-08-19 End: 11-06-19 24 [...] Active magnesium oxide 400 mg oral tablet (14 sources) Start: 03-07-2023 End: 08-31-2023 take 400 [...] Active naproxen sodium 220 mg oral tablet (9 sources) Nonsteroidal Anti-inflammatory Drug take 1 tablet by mouth twice daily as needed naproxen sodium (Aleve) 220 MG tablet Take 220 mg by mouth 2 (two) times a day as needed. 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 Active predniSONE 10 mg oral tablet (7 sources) Start: 05-14-2024 predniSONE (Deltasone) 10 MG tablet Indications: Acute right-sided low back pain with right-sided sciatica , Right hip pain , Pain of right sacroiliac joint Every 2 day tapering dose; 5,5,4,4,3,3,2,2,1,1,0.5,0.5 31 tablet 05/14/2024 Active Thyroid (Pork) (Bundle Packer Thyroid) 60 mg tablet (4 sources) Start: 01-18-2022 take 1 tablet by mouth twice daily Thyroid (Pork) (Bundle Packer Thyroid) 60 mg tablet Active 60 MG PO Twice daily January 18, 2022 12:00am thyroid (mcc) 60 mg oral tablet (11 sources) Start: 01-18-2022 take 1 tablet by mouth twice daily Thyroid (Pork) (Bundle Packer Thyroid) 60 mg tablet Active 60 MG PO Twice daily January 18, 2022 12:00am End: 08-31-2023 take 1 tablet by mouth once daily before mealtime thyroid, pork, (SANDBLAST OPERATOR Thyroid) 60 mg tablet Take 1 tablet [...] Date Documented Date Episodic/Chronic Acute myocardial infarction (19 sources) Myocardial infarction; Translations: [Non-ST elevation (NSTEMI) myocardial infarction] Onset: 01-20-2022 01-18-2022 Chronic Aortic; peripheral; and visceral artery aneurysms (9 sources) Aneurysm of infrarenal abdominal aorta ; Translations: [Infrarenal abdominal aortic aneurysm, without rupture] Onset: 01-17-2023 01-17-2023 Chronic Asthma (9 sources) Allergic asthma; Translations: [Unspecified asthma, uncomplicated] Onset: 01-17-2023 01-17-2023 Chronic Cataract (18 sources) Bilateral pseudophakia; Translations: [Presence of intraocular lens] Onset: 01-17-2023 01-17-2023 Chronic Chronic kidney disease (18 sources) Chronic kidney disease, stage 2 (mild); Translations: [Chronic kidney disease stage 2] Onset: 08-16-2022 Resolved: 08-09-2023 01-17-2023 Chronic Chronic obstructive pulmonary disease and bronchiectasis (17 sources) Simple chronic bronchitis; Translations: [Simple chronic bronchitis] Onset: 01-17-2023 01-17-2023 Chronic Conditions associated with dizziness or vertigo (9 sources) Dizziness; Translations: [Dizziness and giddiness] Onset: 03-05-2023 03-05-2023 Episodic Coronary atherosclerosis and other heart disease (20 sources) Coronary arteriosclerosis; Translations: [Atherosclerotic heart disease of [place] coronary artery without angina pectoris] Onset: 06-14-2022 [...] hyperlipidemia] Onset: 08-16-2022 01-17-2023 Chronic Esophageal disorders (9 sources) Gastroesophageal reflux disease without esophagitis; Translations: [Gastro-esophageal reflux disease without esophagitis] Onset: 01-17-2023 01-17-2023 Chronic Essential hypertension (20 sources) Hypertensive disorder; Translations: [Essential (primary) hypertension] Onset: 01-20-2022 11-11-2019 Chronic Fluid and electrolyte disorders (10 sources) Hypo-osmolality and hyponatremia; Translations: [Acute hyponatremia] Onset: 02-02-2022 03-05-2023 Episodic Genitourinary symptoms and ill-defined conditions (9 sources) Urge incontinence of urine; Translations: [Urge incontinence] Onset: 01-17-2023 01-17-2023 Chronic Hypertension with complications and secondary hypertension (18 sources) Hypertensive chronic kidney disease with stage 1 through stage 4 chronic kidney disease, or unspecified chronic kidney disease; Translations: [Hypertensive urgency ] Onset: 08-15-2022 Chronic Malaise and fatigue (14 sources) Chronic fatigue, unspecified; Translations: [Fatigue] Onset: 04-12-2022 Chronic Nutritional deficiencies (9 sources) Vitamin D deficiency; Translations: [Vitamin D deficiency, unspecified] Onset: 01-17-2023 01-17-2023 Chronic Osteoarthritis (19 sources) Arthritis of left knee; Translations: [Unilateral primary osteoarthritis, left knee] Onset: 07-12-2016 01-17-2023 Chronic Other and ill-defined heart disease (9 sources) Diastolic dysfunction; Translations: [Other ill-defined heart diseases] Onset: 01-17-2023 01-17-2023 Chronic Other circulatory disease (9 sources) History of endovascular stent graft for repair of abdominal aortic aneurysm; Translations: [Presence of other vascular implants and grafts] Onset: 01-17-2023 01-17-2023 Chronic Other circulatory disease (9 sources) History of insertion of iliac stent; Translations: [Presence of other vascular implants and grafts] Onset: 01-17-2023 01-17-2023 Chronic Other circulatory disease (1 source) Orthostatic hypotension; Translations: [Orthostatic hypotension] Onset: 03-05-2023 Episodic Other ear and sense organ disorders (1 source) Disorder of external ear; Translations: [Unspecified otitis externa, left ear] Onset: 01-17-2023 01-17-2023 Chronic Other lower respiratory disease (9 sources) Pulmonary granuloma; Translations: [Pulmonary fibrosis, unspecified] Onset: 01-17-2023 01-17-2023 Chronic Other lower respiratory disease (9 sources) Post-inflammatory pulmonary fibrosis; Translations: [Pulmonary fibrosis, unspecified] Onset: 03-26-2016 01-19-2023 Chronic Other lower respiratory disease (2 sources) Dyspnea on exertion; Translations: [Other forms of dyspnea] 08-31-2023 Episodic Other nervous system disorders (9 sources) Chronic pain; Translations: [Other chronic pain] Onset: 01-17-2023 01-17-2023 Chronic Other non-traumatic joint disorders (2 sources) Hip pain; Translations: [Pain in right hip] 05-14-2024 Episodic Other nutritional; endocrine; and metabolic disorders (4 sources) Obesity; Translations: [Obesity, unspecified] Chronic Other nutritional; endocrine; and metabolic disorders (9 sources) Obese class I; Translations: [Obesity, unspecified] [...] Onset: 01-20-2022 01-19-2022 Chronic Pulmonary heart disease (9 sources) Pulmonary hypertension; Translations: [Pulmonary hypertension, unspecified] Onset: 01-17-2023 01-17-2023 Chronic Retinal detachments; defects; vascular occlusion; and retinopathy (18 sources) Epiretinal membrane of right eye; Translations: [Puckering of macula, right eye] Onset: 01-17-2023 01-17-2023 Chronic Spondylosis; intervertebral disc disorders; other back problems (1 source) Degeneration of cervical intervertebral disc; Translations: [Other cervical disc degeneration, unspecified cervical region] Onset: 07-15-2024 07-15-2024 Chronic Spondylosis; intervertebral disc disorders; other back problems (6 sources) Acute back pain with sciatica; Translations: [Lumbago with sciatica, right side] Onset: 07-15-2024 05-14-2024 Episodic Syncope (12 sources) Near syncope; Translations: [Syncope and collapse] Onset: 02-02-2022 11-11-2019 Episodic Thyroid disorders (20 sources) Hypothyroidism; Translations: [Hypothyroidism, unspecified] Onset: 03-05-2023 01-18-2022 Chronic Unclassified (1 source) CONTACT W/AND (SUSP) EXPOS COVID-19; Translations: [CONTACT W/AND (SUSP) EXPOS COVID-19] Onset: 02-02-2022 Past or Other Problems Problem Classification Problem Date Documented Da te Episodic/Chronic Blindness and vision defects (9 sources) Presbyopia; Translations: [Presbyopia] Onset: 01-17-2023 01-17-2023 Episodic Coronary atherosclerosis and other heart disease (20 sources) Patient post percutaneous transluminal coronary angioplasty; Translations: [Percutaneous transluminal coronary angioplasty status] Onset: 01-17-2023 01-17-2023 Episodic Diabetes mellitus without complication (20 sources) Prediabetes; Translations: [Prediabetes] Onset: 08-16-2022 01-18-2022 Episodic Heart valve disorders (9 sources) Heart murmur; Translations: [Cardiac murmur, unspecified] Onset: 01-17-2023 01-17-2023 Episodic Mood disorders (10 sources) Mood disorders Onset: 02-15-2022 Resolved: 08-30-2023 07-25-2022 Noninfectious gastroenteritis (1 source) Noninfective gastroenteritis and colitis, unspecified; Translations: [NONINFECTIVE GE AND COLITIS UNS] Onset: 02-02-2022 Episodic Nonspecific chest pain (3 sources) Chest pain, unspecified; Translations: [CHEST PAIN UNSPECIFIED] Onset: 01-18-2022 Episodic Other aftercare (1 source) Other fdc (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; Translations: [OTH CUSTODIAL CURRENT DRUG THERAPY] Onset: 02-02-2022 Episodic Other aftercare (1 source) nursing home (current) use of oral hypoglycemic drugs; Translations: [CUSTODIAL USE ORAL HYPOGLYCEMIC DX] Onset: 02-02-2022 Episodic Other aftercare (1 source) joint terminal attack controller (current) use of aspirin; Translations: [CUSTODIAL CURRENT USE OF ASPIRIN] Onset: 01-20-2022 Episodic Other aftercare (9 sources) Polypharmacy ; Translations: [Other joint terminal attack controller (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] Onset: 08-07-2020 01-19-2023 Episodic Other bone disease and musculoskeletal deformities (9 sources) Osteopenia; Translations: [Other specified disorders of bone density and structure, unspecified site] Onset: 01-17-2023 01-17-2023 Episodic Other circulatory disease (1 source) Hypotension, unspecified; Translations: [HYPOTENSION UNSPECIFIED] Onset: 02-02-2022 Episodic Other circulatory disease (11 sources) Orthostatic hypotension; Translations: [Orthostatic hypotension] Onset: 01-10-2024 03-07-2023 Episodic Other circulatory disease (9 sources) H/O: cardiovascular disease; Translations: [Personal history of other diseases of the circulatory system] Onset: 04-25-2016 01-19-2023 Episodic Other connective tissue disease (9 sources) Abnormal posture; Translations: [Abnormal posture] Onset: 01-17-2023 Resolved: 08-07-2023 01-17-2023 Episodic Other connective tissue disease (9 sources) Left rotator cuff syndrome; Translations: [Unspecified rotator cuff tear or rupture of left shoulder, not specified as traumatic] Onset: 01-17-2023 01-17-2023 Episodic Other ear and sense organ disorders (8 sources) Disorder of left external ear; Translations: [Unspecified otitis externa, left ear] Onset: 01-17-2023 Resolved: 08-07-2023 08-07-2023 Chronic Other eye disorders (9 sources) Disorder of lacrimal system; Translations: [Disorder [...] 03-17-2023 Episodic Other non-epithelial cancer of skin (9 sources) Basal cell carcinoma of ear; 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] Onset: 01-17-2023 01-17-2023 Episodic Other nutritional; endocrine; and metabolic disorders (9 sources) Morbid obesity; Translations: [Morbid (severe) obesity due to excess calories] Onset: 04-25-2016 Resolved: 05-02-2023 05-02-2023 Chronic Other nutritional; endocrine; and metabolic disorders (2 sources) Body mass index (BMI) 27.0-27.9, adult; Translations: [Body mass index (BMI) 27.0-27.9, adult] Onset: 08-31-2023 Episodic Other skin disorders (9 sources) Keloid scar; Translations: [Hypertrophic scar] Onset: 01-17-2023 Resolved: 08-07-2023 01-17-2023 Episodic Residual codes; unclassified (1 source) Other specified postprocedural states; Translations: [OTH SPECIFIED POSTPROCEDURAL STATES] Onset: 02-02-2022 Episodic Screening and history of mental health and substance abuse codes (20 sources) Ex-smoker; Translations: [Personal history of tobacco use] Onset: 03-25-2016 01-19-2023 Episodic Comment on above: nicotine lozenges; Thyroid disorders (14 sources) Sick-euthyroid syndrome; Translations: [Sick-euthyroid syndrome] Onset: 04-15-2022 Resolved: 05-08-2023 Episodic Unclassified (2 sources) Onset: 08-31-2023 Resolved: 05-08-2024 08-31-2023 Viral infection (1 source) Zoster without complications Onset: 01-01-2022 Resolved: 01-01-2022 Episodic Results Test Name Value Interpretation Reference Range Facility ALL T3 FREEon 07-16-2024 Free T3 [Mass/Vol] 1.79 pg/mL Low 2.18 - 3.98 pg/mL [facility] Interpretation and review of laboratory results Abnormal [facility] ALL THYROID STIM HORMONEon 0 07-16-2024 TSH Qn 1.771 m[IU]/L [facility] No Panel Informationon 07-[address] [facility] CT Lumbar spine WO contrasto n 07-11-2024 [place] [address] CT Scan Report Signed Patient: STEVEN HARDING MR#: [id number] : 1940 Acct:[id number] Age/Sex: 84 / F ADM Date: 07/10/24 Loc: CT Attending Dr: Priya JUAREZ Ordering Physician: Priya Patel Date of Service: 07/10/24 Procedure(s): CT lumbar spine wo con Accession Number(s): [id number] cc: PRIYANKA PUENTES [place] [id number] Patient Name: STEVEN HARDING MRN: [id number] date: 1940 Sex: F Assigned Patient Location: CT Current Patient Location: Accession/Order Number: [id number] Exam Date: 07/10/2024 13:48 Report Date: 07/11/2024 [...] L3-L4, and L4-L5. Spinal canal narrowing is jwgf-op-uddiwlli at these levels, also contributed to by [...] demineralization. 2. Multilevel lumbar spondylotic changes with eepm-ii-gocbxbjt spinal canal narrowing at L2-L3, L3-L4, and L4-L5. 3. Infrarenal abdominal aortic aneurysm measures approximately 3.2 x 2.6 cm. This has mildly increased in size since 01/27/2022. Electronically authenticated by: YAO WATSON Date: 07/11/2024 13:40 Dictated By: Yao Watson M.D. Signed By: 07/11/24 1342 DD/ 1340 TD/TT: Patient Accounts Clerk: [facility] Radiology, Radiologemmanuelle bloom MD - 07/11/2024 [place] [address] CT Scan Report Signed Patient: STEVEN HARDING MR#: [id number] : 1940 Acct:[id number] Age/Sex: 84 / F ADM Date: 07/10/24 Loc: CT Attending Dr: Priya JUAREZ Ordering Physician: Priya Patel Date of Service: 07/10/24 Procedure(s): CT lumbar spine wo con Accession Number(s): [id number] cc: PRIYANKA PUENTES [place] [address] Patient Name: STEVEN HARDING MRN: [id number] date: 1940 Sex: F Assigned Patient Location: CT Current Patient Location: Accession/Order Number: [id number] Exam Date: 07/10/2024 13:48 Report Date: 07/11/2024 [...] L3-L4, and L4-L5. Spinal canal narrowing is mjaz-bk-xivdtddr at these levels, also contributed to by [...] demineralization. 2. Multilevel lumbar spondylotic changes with ctob-he-bgdqevkc spinal canal narrowing at L2-L3, L3-L4, and L4-L5. 3. Infrarenal abdominal aortic aneurysm measures approximately 3.2 x 2.6 cm. This has mildly increased in size since 01/27/2022. Electronically authenticated by: YAO WATSON Date: 07/11/2024 13:40 Dictated By: Yao Watson M.D. Signed By: 07/11/24 1342 DD/ 1340 TD/TT: Patient Accounts Clerk: [facility] Radiology Study observation (narrative) [facility] CT Lumbar spine WO contrastO rdered By: Radiologist Radiology on 07-11-2024 [facility] Work Phone: ALL LIPID PROFILE (FASTING)o n 05-17-2024 CHOL HDL RATIO 1.8 [facility] Comment on above: 3.3 - 4.4 LOW RISK 4.4 - 7.1 AVERAGE RISK 7.1 - 11.0 MODERATE RISK >11.0 HIGH RISK Cholesterol [Mass/Vol] 144 mg/dL NINF - 200 mg/dL [facility] Cholesterol in HDL [Mass/Vol] 80 mg/dL High 40 - 60 mg/dL [facility] Comment on above: > or =60 mg/dl - LOW CARDIOVASCULAR RISK <40 mg/dl - HIGH CARDIOVASCULAR RISK Magnesium [Mass/Vol] 52 mg/dL [facility] Comment on above: <100 mg/dl OPTIMAL 100-129 mg/dl NEAR OR ABOVE OPTIMAL 130-159 mg/dl BORDERLINE HIGH 160-189 mg/dl HIGH >190 mg/dl VERY HIGH Magnesium [Mass/Vol] 12.2 mg/dL [facility] Triglyceride [Mass/Vol] 61 mg/dL NINF - 150 mg/dL [facility] CMP (CMP) (FOR REMOTE FH C USE)on 05-17-2024 Albumin [Mass/Vol] 4 g/dL 3.4 - 5.0 g/dL [facility] ALBUMIN GLOBULIN RATIO 1.3 NO [facility] ALP [Catalytic activity/Vol] 48 U/L 46 - 116 U/L [facility] ALT [Catalytic activity/Vol] 24 U/L 14 - 59 U/L [facility] Anion gap [Moles/Vol] 13.4 mmol/L NO [facility] AST [Catalytic activity/Vol] 13 U/L Low 15 - 37 U/L [facility] Bilirubin [Mass/Vol] 0.6 mg/dL 0.2 - 1 .0 mg/dL [facility] Calcium [Mass/Vol] 9.1 mg/dL 8.5 - 10. 1 mg/dL [facility] Chloride [Moles/Vol] 97 mmol/L Low 98 - 10 7 mmol/L [facility] CO2 [Moles/Vol] 28.9 mmol/L 21.0 - 32.0 mmol/L [facility] Creatinine [Mass/Vol] 1.12 mg/dL High 0.55 - 1.02 mg/dL [facility] GFR/1.73 sq M.predicted CKD-EPI (S/P/Bld) [Vol rate/Area] 56 Low >=60 mL/min/1.7 3m 2 [facility] Globulin (S) [Mass/Vol] 3.2 g/dL [facility] Glucose [Mass/Vol] 102 mg/dL 74 - 106 mg/dL [facility] Potassium [Moles/Vol] 4.3 mmol/L 3.5 - 5.1 mmol/L [facility] Protein [Mass/Vol] 7.2 g/dL 6.4 - 8.2 g/dL [facility] Sodium [Moles/Vol] 135 mmol/L Low 136 - 145 mmol/L [facility] TBH EGFR-NON AF TURKMEN 47 Low >=60 mL/min/1.7 3m 2 [facility] Urea nitrogen [Mass/Vol] 22 mg/dL High 7.0 - 18.0 mg/dL [facility] Urea nitrogen/Creatinine [Mass ratio] 19.6 mg/mg [facility] No Panel Informationon 05-17 Interpretation and review of laboratory results Abnormal [facility] MLR HEMOGLOBIN A1Con 024 Glucose [Mass/Vol] 111 mg/dL [facility] HbA1c (Bld) [Mass fraction] 5.5 % 4.5 - 6.2 % [facility] Comment on above: ADA RECOMMENDED LIMI T 4.0 - 6.0 ADA THERAPEUTIC TARGET < 7.0 ACTION SUGG[facility]ED [facility] 10-0 Anion gap [Moles/Vol] 9.8 mmol/L Normal 6.0-15.0 [facility] Comment on above: Performed By: #### B SANDBLAST OPERATOR, BMP, PT, PTT, HS TROP, CBC, TSH3, CK #### [address] Calcium [Mass/Vol] 8.3 mg/dL Low 8.6-10.3 [facility] Comment on above: Performed By: #### B SANDBLAST OPERATOR, BMP, PT, PTT, HS TROP, CBC, TSH3, CK #### [address] Chloride [Moles/Vol] 101 mmol/L Normal 98-107 [facility] Comment on above: Performed By: #### B SANDBLAST OPERATOR, BMP, PT, PTT, HS TROP, CBC, TSH3, CK #### [address] CO2 [Moles/Vol] 23.6 mmol/L Normal 21.0-31.0 [facility] Comment on above: Performed By: #### B SANDBLAST OPERATOR, BMP, PT, PTT, HS TROP, CBC, TSH3, CK #### [address] Creatinine [Mass/Vol] 0.70 mg/dL Normal 0.60-1.20 [facility] Comment on above: Performed By: #### B SANDBLAST OPERATOR, BMP, PT, PTT, HS TROP, CBC, TSH3, CK #### [address] Creatinine Clr Calc Pharmacy 48.88 [facility] Comment on above: Performed By: #### B SANDBLAST OPERATOR, BMP, PT, PTT, HS TROP, CBC, TSH3, CK #### [address] GFR/1.73 sq M.predicted MDRD (S/P/Bld) [Vol rate/Area] mL/min/{1.73_m2} [facility] Comment on above: Performed By: #### B SANDBLAST OPERATOR, BMP, PT, PTT, HS TROP, CBC, TSH3, CK #### [address] [place] [address] [place] Glucose [Mass/Vol] 84 mg/dL Normal 70-100 [facility] Comment on above: Result Comment: [facility] Glucose Reference Range is dependent on time and content of last meal. Glucose of more than 200 mg/dL in a nonstressed, ambulatory subject supports the diagnosis of Diabetes Mellitus. ADA recommended reference range Performed By: #### B SANDBLAST OPERATOR, BMP, PT, PTT, HS TROP, CBC, TSH3, CK #### [place] [facility] [address] Potassium [Moles/Vol] 4.4 mmol/L Normal 3.5-5.1 [facility] Comment on above: Performed By: #### B SANDBLAST OPERATOR, BMP, PT, PTT, HS TROP, CBC, TSH3, CK #### [facility] [address] Sodium [Moles/Vol] 130 mmol/L Low 136-145 [facility] Comment on above: Performed By: #### B SANDBLAST OPERATOR, BMP, PT, PTT, HS TROP, CBC, TSH3, CK #### [facility] [address] Urea nitrogen [Mass/Vol] 8 mg/dL Normal 7-25 [facility] Comment on above: Performed By: #### B SANDBLAST OPERATOR, BMP, PT, PTT, HS TROP, CBC, TSH3, CK #### [facility] [address] Calcium [Mass/volume] in Ser um or PlasmaOrdered By: Rufus Ricks on 03-14-2023 Calcium [Mass/Vol] 8.3 mg/dL 8.6-10.3 [facility] Carbon dioxide, total [Moles /volume] in Serum or PlasmaOrdered By: Rufus Ricks on 03-14-2023 CO2 [Moles/Vol] 23.6 mmol/L 21.0-31.0 [facility] Chloride [Moles/volume] in S yamilex or PlasmaOrdered By: Rufus Ricks on 03-14-2023 Chloride [Moles/Vol] 101 mmol/L 98-107 [facility] Creatinine [Mass/volume] in Serum or PlasmaOrdered By: Rufus Kula on 03-14-2023 Creatinine [Mass/Vol] 0.70 mg/dL 0.60-1.20 [facility] Free T4 (Free Thyroxine)on Free T4 [Mass/Vol] 0.72 ng/dL Normal 0.61-1.12 [facility] Comment on above: Performed By: #### B SANDBLAST OPERATOR, BMP, PT, PTT, HS TROP, CBC, TSH3, CK #### [facility] [address] Glucose [Mass/volume] in Ser um or PlasmaOrdered By: Rufus Kula on 03-14-2023 Glucose [Mass/Vol] 84 mg/dL 70-100 [facility] Comment on above: ADA recommended refe rence rangeRandom Glucose Reference Range is dependent on time and content of last meal. Glucose of more than 200 mg/dL in a nonstressed, ambulatory subject supports the diagnosis of Diabetes Mellitus. No Panel InformationOrdered By: [facility] on 03-14-2023 Estimated GFR (CKD-EPI) > 60.0 mL/Min [facility] Creatinine Clearance (Chem 48.88 [facility] Potassium [Moles/volume] in Serum or PlasmaOrdered By: [facility] on 03-14-2023 Potassium [Moles/Vol] 4.4 mmol/L 3.5-5.1 [facility] Serum or plasma anion gap de terminationOrdered By: Rufus Kula on 03-14-2023 Anion gap [Moles/Vol] 9.8 mmol/L 6.0-15.0 [facility] Sodium [Moles/volume] in Ser um or PlasmaOrdered By: [facility] on 03-14-2023 Sodium [Moles/Vol] 130 mmol/L 136-145 [facility] Thyroid Stimulating Hormoneo n 03-14-2023 TSH Qn 0.04 m[IU]/L Low 0.45-5.33 [facility] Comment on above: Result Comment: PERF ORMED BY: [facility] [address] [place] [id number] PATHOLOGIST TRIMMING OPERATOR RAQUEL LOPEZ M.D. Performed By: #### B SANDBLAST OPERATOR, BMP, PT, PTT, HS TROP, CBC, TSH3, CK #### [facility] [address] [place] [address] [facility] Thyrotropin [Units/volume] i n Serum or PlasmaOrdered By: Rufus Ricks on 03-14-2023 TSH Qn 0.04 m[IU]/L 0.45-5.33 [facility] Thyroxine (T4) free [Mass/vo lume] in Serum or PlasmaOrdered By: Rufus Ricks on 03-14-2023 Free T4 [Mass/Vol] 0.72 ng/dL 0.61-1.12 [facility] Triiodothyronine (T3) Freeon 03-14-2023 Triiodothyronine (T3) Free 2.85 pg/mL Normal 2.50-3.90 [facility] Comment on above: Result Comment: PERF ORMED BY: [place] [address] PATHOLOGIST TRIMMING OPERATOR RAQUEL LOPEZ M.D. Performed By: #### B SANDBLAST OPERATOR, BMP, PT, PTT, HS TROP, CBC, TSH3, CK #### [facility] [address] [place] [id number] [facility] Triiodothyronine (T3) Free [ Mass/volume] in Serum or PlasmaOrdered By: Rufus Ricks on 03-14-2023 Free T3 [Mass/Vol] 2.85 pg/mL 2.50-3.90 [facility] Urea nitrogen [Mass/volume] in Serum or PlasmaOrdered By: Rufus Ricks on 03-14-2023 Urea nitrogen [Mass/Vol] 8 mg/dL 01-03 [facility] Basic Metabolic Panelon Anion gap [Moles/Vol] 13.4 mmol/L Normal 6.0-15.0 [facility] Comment on above: Performed By: #### B SANDBLAST OPERATOR, BMP, PT, PTT, HS TROP, CBC, TSH3, CK #### [address] Calcium [Mass/Vol] 9.1 mg/dL Normal 8.6-10.3 [facility] Comment on above: Performed By: #### B SANDBLAST OPERATOR, BMP, PT, PTT, HS TROP, CBC, TSH3, CK #### [address] Chloride [Moles/Vol] 93 mmol/L Low 98-107 [facility] Comment on above: Performed By: #### B SANDBLAST OPERATOR, BMP, PT, PTT, HS TROP, CBC, TSH3, CK #### [address] CO2 [Moles/Vol] 25.0 mmol/L Normal 21.0-31.0 [facility] Comment on above: Performed By: #### B SANDBLAST OPERATOR, BMP, PT, PTT, HS TROP, CBC, TSH3, CK #### [address] Creatinine [Mass/Vol] 0.88 mg/dL Normal 0.60-1.20 [facility] Comment on above: Performed By: #### B SANDBLAST OPERATOR, BMP, PT, PTT, HS TROP, CBC, TSH3, CK #### [address] Creatinine Clr Calc Pharmacy 44.44 [facility] Comment on above: Result Comment: PERF ORMED BY: [place] [address] PATHOLOGIST TRIMMING OPERATOR RAQUEL LOPEZ M.D. Performed By: #### B SANDBLAST OPERATOR, BMP, PT, PTT, HS TROP, CBC, TSH3, CK #### [address] GFR/1.73 sq M.predicted MDRD (S/P/Bld) [Vol rate/Area] mL/min/{1.73_m2} [facility] Comment on above: Performed By: #### B SANDBLAST OPERATOR, BMP, PT, PTT, HS TROP, CBC, TSH3, CK #### [address] [place] [address] [place] Glucose [Mass/Vol] 97 mg/dL Normal 70-100 [facility] Comment on above: Result Comment: [facility] Glucose Reference Range is dependent on time and content of last meal. Glucose of more than 200 mg/dL in a nonstressed, ambulatory subject supports the diagnosis of Diabetes Mellitus. ADA recommended reference range Performed By: #### B SANDBLAST OPERATOR, BMP, PT, PTT, HS TROP, CBC, TSH3, CK #### [facility] [address] Potassium [Moles/Vol] 4.4 mmol/L Normal 3.5-5.1 [facility] Comment on above: Performed By: #### B SANDBLAST OPERATOR, BMP, PT, PTT, HS TROP, CBC, TSH3, CK #### [facility] [address] Sodium [Moles/Vol] 127 mmol/L Low 136-145 [facility] Comment on above: Performed By: #### B SANDBLAST OPERATOR, BMP, PT, PTT, HS TROP, CBC, TSH3, CK #### [facility] [address] Urea nitrogen [Mass/Vol] 9 mg/dL Normal 7-25 [facility] Comment on above: Performed By: #### B SANDBLAST OPERATOR, BMP, PT, PTT, HS TROP, CBC, TSH3, CK #### [facility] [address] Activated partial thrombopla stin time (aPTT) in platelet poor plasma by coagulation aOrdered By: Hunter Dhillon on 03-12-2023 aPTT Coag (PPP) [Time] 26.1 s 25.1-36.5 [facility] Comment on above: A hematocrit value g reater than 55% may lead to inaccurate results in coagulation testing. Patients having hematocrit values >55% require a special collection tube for coagulation studies. Please contact the laboratory at [phone] for redraw instructions. Alanine aminotransferase [En zymatic activity/volume] in Serum or PlasmaOrdered By: Hunter Dhillon on 03-12-2023 ALT [Catalytic activity/Vol] 14 U/L 7-52 [facility] Albumin [Mass/volume] in Ser um or Plasma by Bromocresol green (BCG) dye binding methoOrdered By: Hunter Dhillon on 03-12-2023 Albumin BCG dye [Mass/Vol] 4.1 g/dL 3.5-5.7 [facility] Alkaline phosphatase [Enzyma tic activity/volume] in Serum or PlasmaOrdered By: Hunter Dhillon on 03-12-2023 ALP [Catalytic activity/Vol] 40 U/L 34-104 [facility] Aspartate aminotransferase [ Enzymatic activity/volume] in Serum or PlasmaOrdered By: Hunter Dhillon on 03-12-2023 AST [Catalytic activity/Vol] 15 U/L 13-39 [facility] Automated erythrocytes count in urine sediment (number/area)Ordered By: Hunter Dhillon on 03-12-2023 RBC Auto (Urine sed) [#/Area] None seen [HPF] 0-4 [facility] Automated leukocytes count i n urine sediment (number/area)Ordered By: Hunter Dhillon on 03-12-2023 WBC Auto (Urine sed) [#/Area] 5-9 [HPF] 0-4 [facility] B-Type Natriuretic Peptideon 03-12-2023 Natriuretic peptide B (Bld) [Mass/Vol] 83.0 pg/mL Normal 5-100 [facility] Comment on above: Result Comment: PERF ORMED BY: [place] [address] PATHOLOGIST TRIMMING OPERATOR RAQUEL LOPEZ M.D. Performed By: #### B SANDBLAST OPERATOR, BMP, PT, PTT, HS TROP, CBC, TSH3, CK #### [facility] [address] Basic Metabolic Panelon Anion gap [Moles/Vol] 13.3 mmol/L Normal 6.0-15.0 [facility] Comment on above: Performed By: #### B SANDBLAST OPERATOR, BMP, PT, PTT, HS TROP, CBC, TSH3, CK #### [facility] [address] Calcium [Mass/Vol] 9.2 mg/dL Normal 8.6-10.3 [facility] Comment on above: Performed By: #### B SANDBLAST OPERATOR, BMP, PT, PTT, HS TROP, CBC, TSH3, CK #### [facility] [address] Chloride [Moles/Vol] 98 mmol/L Normal 98-107 [facility] Comment on above: Performed By: #### B SANDBLAST OPERATOR, BMP, PT, PTT, HS TROP, CBC, TSH3, CK #### [facility] [address] CO2 [Moles/Vol] 21.2 mmol/L Normal 21.0-31.0 [facility] Comment on above: Performed By: #### B SANDBLAST OPERATOR, BMP, PT, PTT, HS TROP, CBC, TSH3, CK #### [facility] [address] Creatinine [Mass/Vol] 0.92 mg/dL Normal 0.60-1.20 [facility] Comment on above: Performed By: #### B SANDBLAST OPERATOR, BMP, PT, PTT, HS TROP, CBC, TSH3, CK #### [facility] [address] Creatinine Clr Calc Pharmacy 41.99 [facility] Comment on above: Performed By: #### B SANDBLAST OPERATOR, BMP, PT, PTT, HS TROP, CBC, TSH3, CK #### [facility] [address] GFR/1.73 sq M.predicted MDRD (S/P/Bld) [Vol rate/Area] mL/min/{1.73_m2} [facility] Comment on above: Performed By: #### B SANDBLAST OPERATOR, BMP, PT, PTT, HS TROP, CBC, TSH3, CK #### [facility] [address] Glucose [Mass/Vol] 87 mg/dL Normal 70-100 [facility] Comment on above: Result Comment: [facility] Glucose Reference Range is dependent on time and content of last meal. Glucose of more than 200 mg/dL in a nonstressed, ambulatory subject supports the diagnosis of Diabetes Mellitus. ADA recommended reference range Performed By: #### B SANDBLAST OPERATOR, BMP, PT, PTT, HS TROP, CBC, TSH3, CK #### [facility] [address] Potassium [Moles/Vol] 4.5 mmol/L Normal 3.5-5.1 [facility] Comment on above: Performed By: #### B SANDBLAST OPERATOR, BMP, PT, PTT, HS TROP, CBC, TSH3, CK #### [facility] [address] Sodium [Moles/Vol] 128 mmol/L Low 136-145 [facility] Comment on above: Performed By: #### B SANDBLAST OPERATOR, BMP, PT, PTT, HS TROP, CBC, TSH3, CK #### [facility] [address] Urea nitrogen [Mass/Vol] 11 mg/dL Normal 7-25 [facility] Comment on above: Performed By: #### B SANDBLAST OPERATOR, BMP, PT, PTT, HS TROP, CBC, TSH3, CK #### [facility] [address] Basophils Auto (Bld) [#/Vol] Ordered By: Hunter Dhillon on 03-12-2023 Basophils (Bld) [#/Vol] 0.0 10*3/uL 0.0-0.2 [facility] Basophils/100 WBC Auto (Bld) Ordered By: Hunter Dhillon on 03-12-2023 Basophils/100 WBC (Bld) 0.4 % . [facility] Bilirubin Auto test strip Ql (U)Ordered By: Hunter Dhillon on 03-12-2023 Bilirubin Ql (U) Negative Negative [facility] Bilirubin.direct [Mass/volum e] in Serum or PlasmaOrdered By: Hunter Dhillon on 03-12-2023 Bilirubin.direct [Mass/Vol] 0.10 mg/dL 0.03-0.18 [facility] Bilirubin.total [Mass/volume ] in Serum or PlasmaOrdered By: Hunter Dhillon on 03-12-2023 Bilirubin [Mass/Vol] 0.4 mg/dL 0.3-1.0 [facility] Calcium [Mass/volume] in Ser um or PlasmaOrdered By: Hunter Dhillon on 03-12-2023 Calcium [Mass/Vol] 9.2 mg/dL 8.6-10.3 [facility] Carbon dioxide, total [Moles /volume] in Serum or PlasmaOrdered By: Hunter Dhillon on 03-12-2023 CO2 [Moles/Vol] 21.2 mmol/L 21.0-31.0 [facility] Chloride [Moles/volume] in S yamilex or PlasmaOrdered By: Hunter Dhillon on 03-12-2023 Chloride [Moles/Vol] 98 mmol/L 98-107 [facility] Complete Blood Count Auto Di ffon 03-12-2023 Basophils (Bld) [#/Vol] 0.0 10*3/uL Normal 0.0-0.2 [facility] Comment on above: Result Comment: PERF ORMED BY: [place] [address] PATHOLOGIST TRIMMING OPERATOR RAQUEL LOPEZ M.D. Performed By: #### B SANDBLAST OPERATOR, BMP, PT, PTT, HS TROP, CBC, TSH3, CK #### [address] Basophils/100 WBC (Bld) 0.4 % Normal . [facility] Comment on above: Performed By: #### B SANDBLAST OPERATOR, BMP, PT, PTT, HS TROP, CBC, TSH3, CK #### [place] [address] [place] Eosinophils (Bld) [#/Vol] 0.2 10*3/uL Normal 0.0-0.45 [facility] Comment on above: Performed By: #### B SANDBLAST OPERATOR, BMP, PT, PTT, HS TROP, CBC, TSH3, CK #### [address] Eosinophils/100 WBC (Bld) 2.0 % Normal . [facility] Comment on above: Performed By: #### B SANDBLAST OPERATOR, BMP, PT, PTT, HS TROP, CBC, TSH3, CK #### [address] Erythrocyte distribution width (RBC) [Ratio] 12.6 % Normal 11.9-15.3 [facility] Comment on above: Performed By: #### B SANDBLAST OPERATOR, BMP, PT, PTT, HS TROP, CBC, TSH3, CK #### [address] Hematocrit (Bld) [Volume fraction] 35.5 % Normal 34.0-46.4 [facility] Comment on above: Performed By: #### B SANDBLAST OPERATOR, BMP, PT, PTT, HS TROP, CBC, TSH3, CK #### [address] Hemoglobin (Bld) [Mass/Vol] 12.4 g/dL Normal 11.8-15.4 [facility] Comment on above: Performed By: #### B SANDBLAST OPERATOR, BMP, PT, PTT, HS TROP, CBC, TSH3, CK #### [address] Lymphocytes (Bld) [#/Vol] 1.2 10*3/uL Normal 1.00-4.8 [facility] Comment on above: Performed By: #### B SANDBLAST OPERATOR, BMP, PT, PTT, HS TROP, CBC, TSH3, CK #### [address] Lymphocytes/100 WBC (Bld) 13.2 % Normal . [facility] Comment on above: Performed By: #### B SANDBLAST OPERATOR, BMP, PT, PTT, HS TROP, CBC, TSH3, CK #### [address] MCH (RBC) [Entitic mass] 31.9 pg Normal 24.7-34.3 [facility] Comment on above: Performed By: #### B SANDBLAST OPERATOR, BMP, PT, PTT, HS TROP, CBC, TSH3, CK #### [address] MCV (RBC) [Entitic vol] 91.8 fL Normal 80-100 [facility] Comment on above: Performed By: #### B SANDBLAST OPERATOR, BMP, PT, PTT, HS TROP, CBC, TSH3, CK #### [address] Mean Corpuscular HGB Conc 34.7 g/dL Normal 32.0-35.0 [facility] Comment on above: Performed By: #### B SANDBLAST OPERATOR, BMP, PT, PTT, HS TROP, CBC, TSH3, CK #### [address] Monocytes (Bld) [#/Vol] 0.5 10*3/uL Normal 0.0-0.8 [facility] Comment on above: Performed By: #### B SANDBLAST OPERATOR, BMP, PT, PTT, HS TROP, CBC, TSH3, CK #### [address] Monocytes/100 WBC (Bld) 17.50 % Normal 0.00-20.00 [facility] Comment on above: Performed By: #### B SANDBLAST OPERATOR, BMP, PT, PTT, HS TROP, CBC, TSH3, CK #### [address] Monocytes/100 WBC (Bld) 5.1 % Normal . [facility] Comment on above: Performed By: #### B SANDBLAST OPERATOR, BMP, PT, PTT, HS TROP, CBC, TSH3, CK #### [address] Neutrophils (Bld) [#/Vol] 7.0 10*3/uL Normal 1.8-7.7 [facility] Comment on above: Performed By: #### B SANDBLAST OPERATOR, BMP, PT, PTT, HS TROP, CBC, TSH3, CK #### [address] Neutrophils/100 WBC (Bld) 79.3 % Normal . [facility] Comment on above: Performed By: #### B SANDBLAST OPERATOR, BMP, PT, PTT, HS TROP, CBC, TSH3, CK #### [address] NRBC% 0.0 /100{WBC} Normal 0-0.5 [facility] Comment on above: Performed By: #### B SANDBLAST OPERATOR, BMP, PT, PTT, HS TROP, CBC, TSH3, CK #### [address] Platelet mean volume (Bld) [Entitic vol] 7.2 fL Normal 6.3-10.7 [facility] Comment on above: Performed By: #### B SANDBLAST OPERATOR, BMP, PT, PTT, HS TROP, CBC, TSH3, CK #### [address] Platelets (Bld) [#/Vol] 237 10*3/uL Normal 150-450 [facility] Comment on above: Performed By: #### B SANDBLAST OPERATOR, BMP, PT, PTT, HS TROP, CBC, TSH3, CK #### [address] RBC (Bld) [#/Vol] 3.87 10*6/uL Normal 3.60-5.00 [facility] Comment on above: Performed By: #### B SANDBLAST OPERATOR, BMP, PT, PTT, HS TROP, CBC, TSH3, CK #### [address] WBC (Bld) [#/Vol] 8.9 10*3/uL Normal 3.8-11.6 [facility] Comment on above: Performed By: #### B SANDBLAST OPERATOR, BMP, PT, PTT, HS TROP, CBC, TSH3, CK #### [address] Creatine Kinaseon 03-12-2023 CK [Catalytic activity/Vol] 20 U/L Low 30-223 [facility] Comment on above: Performed By: #### B SANDBLAST OPERATOR, BMP, PT, PTT, HS TROP, CBC, TSH3, CK #### [address] Creatine kinase [Enzymatic a ctivity/volume] in Serum or PlasmaOrdered By: Hunter Dhillon on 03-12-2023 CK [Catalytic activity/Vol] 20 U/L 30-223 [facility] Creatinine [Mass/volume] in Serum or PlasmaOrdered By: Hunter Dhillon on 03-12-2023 Creatinine [Mass/Vol] 0.92 mg/dL 0.60-1.20 [facility] Dipstick and Microscopicon 1 Appearance (U) Slightly Cloudy Critically abnormal Clear [facility] Comment on above: Order Comment: Name Collection Type:: Clean-Voided Midstream Performed By: #### A DDONUAPLUS #### [facility] [address] [place] [address] [place] Bacteria,Urine 1+ High None Seen [facility] Comment on above: Order Comment: Name Collection Type:: Clean-Voided Midstream Result Comment: PERF ORMED BY: [place] [address] PATHOLOGIST TRIMMING OPERATOR RAQUEL LOPEZ M.D. Performed By: #### A DDONUAPLUS #### [facility] [address] [place] [address] [place] Bilirubin,Urine Negative Normal Negative [facility] Comment on above: Order Comment: Name Collection Type:: Clean-Voided Midstream Performed By: #### A DDONUAPLUS #### [facility] [address] [place] [address] Color (U) Yellow Normal Yellow [facility] Comment on above: Order Comment: Name Collection Type:: Clean-Voided Midstream Performed By: #### A DDONUAPLUS #### [facility] [address] [place] [address] [place] Glucose Ql (U) Normal Normal Normal [facility] Comment on above: Order Comment: Name Collection Type:: Clean-Voided Midstream Performed By: #### A DDONUAPLUS #### [facility] [address] [place] [address] [place] Ketones Ql (U) Negative Normal Negative [facility] Comment on above: Order Comment: Name Collection Type:: Clean-Voided Midstream Performed By: #### A DDONUAPLUS #### [place] [id number] [place] Leukocyte esterase Test strip Ql (U) 3+ High Negative [facility] Comment on above: Order Comment: Name Collection Type:: Clean-Voided Midstream Performed By: #### A DDONUAPLUS #### [place] [address] [place] Nitrite,Urine Negative Normal Negative [facility] Comment on above: Order Comment: Name Collection Type:: Clean-Voided Midstream Performed By: #### A DDONUAPLUS #### [address] Occult Blood,Urine Negative Normal Negative [facility] Comment on above: Order Comment: Name Collection Type:: Clean-Voided Midstream Result Comment: PERF ORMED BY: [place] [address] PATHOLOGIST TRIMMING OPERATOR RAQUEL LOPEZ M.D. Performed By: #### A DDONUAPLUS #### [address] pH (U) 7.5 [pH] Normal 5.0-9.0 [facility] Comment on above: Order Comment: Name Collection Type:: Clean-Voided Midstream Performed By: #### A DDONUAPLUS #### [address] Protein,Urine Negative Normal Negative [facility] Comment on above: Order Comment: Name Collection Type:: Clean-Voided Midstream Performed By: #### A DDONUAPLUS #### [place] [address] [place] RBC,Urine None Seen Normal 0-4 [facility] Comment on above: Order Comment: Name Collection Type:: Clean-Voided Midstream Performed By: #### A DDONUAPLUS #### [address] Specificy [place],Urine 1.010 Normal 1.001-1.03 0 [facility] Comment on above: Order Comment: Name Collection Type:: Clean-Voided Midstream Performed By: #### A DDONUAPLUS #### [facility] [address] [place] [id number] [facility] Squamous Epithelial Cell,Urine 5-9 High 0-2 [facility] Comment on above: Order Comment: Name Collection Type:: Clean-Voided Midstream Performed By: #### A DDONUAPLUS #### [facility] [address] [place] [id number] [facility] Urobilinogen,Urine Normal Normal Normal [facility] Comment on above: Order Comment: Name Collection Type:: Clean-Voided Midstream Performed By: #### A DDONUAPLUS #### [address] [address] [facility] WBC,Urine 5-9 High 0-4 [facility] Comment on above: Order Comment: Name Collection Type:: Clean-Voided Midstream Performed By: #### A DDONUAPLUS #### [place] [id number] [facility] ECG 12 lead ECGon 03-12-2023 ECG 12 lead ECG [facility] [place] [address] Electrocardiograph Report Signed Patient: Steven Harding MR#: [id number] 1 : 1940 Acct:[id number] Age/Sex: 83 / F ADM Date: 03/12/23 Loc: Room: [address] [place] [address] Type: ADM INOo Attending Dr: Sima Hdz [...] longer present Confirmed by Zane Michael DO ([id number]) on 03/13/2023 8:21:27 AM Referred By: Electronically Signed By:Zane Michael DO Transcribed By: MUS Signed By Zane Michael DO 3 0821 Normal [facility] Eosinophils Auto (Bld) [#/Vo l]Ordered By: Hunter Dhillon on 03-12-2023 Eosinophils (Bld) [#/Vol] 0.2 10*3/uL 0.0-0.45 [facility] Eosinophils/100 WBC Auto (Bl d)Ordered By: Hunter Dhillon on 03-12-2023 Eosinophils/100 WBC (Bld) 2.0 % . [facility] Erythrocyte distribution wid th Auto (RBC) [Ratio]Ordered By: Hunter Dhillon on 03-12-2023 Erythrocyte distribution width (RBC) [Ratio] 12.6 % 11.9-15.3 [facility] Globulin Calc (S) [Mass/Vol] Ordered By: Hunter Dhillon on 03-12-2023 Globulin (S) [Mass/Vol] 2.2 g/dL [facility] Glucose [Mass/volume] in Ser um or PlasmaOrdered By: Hunter Dhillon on 03-12-2023 Glucose [Mass/Vol] 87 mg/dL 70-100 [facility] Comment on above: ADA recommended refe rence rangeRandom Glucose Reference Range is dependent on time and content of last meal. Glucose of more than 200 mg/dL in a nonstressed, ambulatory subject supports the diagnosis of Diabetes Mellitus. Hematocrit Auto (Bld) [Volum e fraction]Ordered By: Hunter Dhillon on 03-12-2023 Hematocrit (Bld) [Volume fraction] 35.5 % 34.0-46.4 [facility] Hemoglobin [Mass/volume] in BloodOrdered By: Hunter Dhillon on 03-12-2023 Hemoglobin (Bld) [Mass/Vol] 12.4 g/dL 11.8-15.4 [facility] Hepatic Panelon 03-12-2023 Albumin [Mass/Vol] 4.1 g/dL Normal 3.5-5.7 [facility] Comment on above: Performed By: #### B SANDBLAST OPERATOR, BMP, PT, PTT, HS TROP, CBC, TSH3, CK #### [facility] [address] [place] [address] Albumin/Globulin [Mass ratio] 1.9 {ratio} Normal [facility] Comment on above: Performed By: #### B SANDBLAST OPERATOR, BMP, PT, PTT, HS TROP, CBC, TSH3, CK #### [address] ALP [Catalytic activity/Vol] 40 U/L Normal 34-104 [facility] Comment on above: Performed By: #### B SANDBLAST OPERATOR, BMP, PT, PTT, HS TROP, CBC, TSH3, CK #### [address] ALT [Catalytic activity/Vol] 14 U/L Normal 7-52 [facility] Comment on above: Performed By: #### B SANDBLAST OPERATOR, BMP, PT, PTT, HS TROP, CBC, TSH3, CK #### [address] AST [Catalytic activity/Vol] 15 U/L Normal 13-39 [facility] Comment on above: Performed By: #### B SANDBLAST OPERATOR, BMP, PT, PTT, HS TROP, CBC, TSH3, CK #### [address] Bilirubin [Mass/Vol] 0.4 mg/dL Normal 0.3-1.0 [facility] Comment on above: Performed By: #### B SANDBLAST OPERATOR, BMP, PT, PTT, HS TROP, CBC, TSH3, CK #### [address] Bilirubin,Indirect 0.3 mg/dL Normal [facility] Comment on above: Performed By: #### B SANDBLAST OPERATOR, BMP, PT, PTT, HS TROP, CBC, TSH3, CK #### [address] Bilirubin.indirect [Mass/Vol] 0.10 mg/dL Normal 0.03-0.18 [facility] Comment on above: Performed By: #### B SANDBLAST OPERATOR, BMP, PT, PTT, HS TROP, CBC, TSH3, CK #### [place] [address] [place] Globulin (S) [Mass/Vol] 2.2 g/dL Normal [facility] Comment on above: Performed By: #### B SANDBLAST OPERATOR, BMP, PT, PTT, HS TROP, CBC, TSH3, CK #### [facility] [address] [place] [address] [place] Protein [Mass/Vol] 6.3 g/dL Low 6.4-8.9 [facility] Comment on above: Performed By: #### B SANDBLAST OPERATOR, BMP, PT, PTT, HS TROP, CBC, TSH3, CK #### [facility] [address] [place] [address] [place] INR in Platelet poor plasma by Coagulation assayOrdered By: Hunter Dhillon on 03-12-2023 INR Coag (PPP) [Relative time] 0.9 {INR} [facility] Comment on above: INR Therapeutic Rang [...] on 03-12-2023 Ketones (U) [Mass/Vol] Negative Negative [facility] Leukocytes [#/volume] correc jazmyne for nucleated erythrocytes in Blood by Automated counOrdered By: Hunter Dhillon on 03-12-2023 WBC corrected for nucl RBC Auto (Bld) [#/Vol] 8.9 10*3/uL 3.8-11.6 [facility] Lymphocytes Auto (Bld) [#/Vo l]Ordered By: Hunter Dhillon on 03-12-2023 Lymphocytes (Bld) [#/Vol] 1.2 10*3/uL 1.00-4.8 [facility] Lymphocytes/100 WBC Auto (Bl d)Ordered By: Hunter Dhillon on 03-12-2023 Lymphocytes/100 WBC (Bld) 13.2 % . [facility] MCH Auto (RBC) [Entitic mass ]Ordered By: Hunter Dhillon on 03-12-2023 MCH (RBC) [Entitic mass] 31.9 pg 24.7-34.3 [facility] MCHC Auto (RBC) [Mass/Vol]Or dered By: Hunter Dhillon on 03-12-2023 MCHC (RBC) [Mass/Vol] 34.7 g/dL 32.0-35.0 [facility]ir [facility] MCV Auto (RBC) [Entitic vol] Ordered By: Hunter Dhillon on 03-12-2023 MCV (RBC) [Entitic vol] 91.8 fL 80-100 [facility] Monocyte distribution width [Entitic volume] in Blood by AutomatedOrdered By: Hunter Dhillon on 03-12-2023 Monocyte distribution width Auto (Bld) [Entitic vol] 17.50 % 0.00-20.00 [facility] Monocytes Auto (Bld) [#/Vol] Ordered By: Hunter Dhillon on 03-12-2023 Monocytes (Bld) [#/Vol] 0.5 10*3/uL 0.0-0.8 [facility] Monocytes/100 WBC Auto (Bld) Ordered By: Hunter Dhillon on 03-12-2023 Monocytes/100 WBC (Bld) 5.1 % . [facility] Natriuretic peptide B [Mass/ Vol]Ordered By: Hunter Dhillon on 03-12-2023 Natriuretic peptide B (Bld) [Mass/Vol] 83.0 pg/mL 5-100 [facility] Neutrophils Auto (Bld) [#/Vo l]Ordered By: Hunter Dhillon on 03-12-2023 Neutrophils (Bld) [#/Vol] 7.0 10*3/uL 1.8-7.7 [facility] Neutrophils/100 WBC Auto (Bl d)Ordered By: Hunter Dhillon on 03-12-2023 Neutrophils/100 WBC (Bld) 79.3 % . [facility] No Panel InformationOrdered By: Hunter Dhillon on 03-12-2023 Estimated GFR (CKD-EPI) > 60.0 mL/Min [facility] Creatinine Clearance (Chem 41.99 [facility] Nucleated erythrocytes [Pres ence] in Blood by Automated countOrdered By: Hunter Dhillon on 03-12-2023 Nucleated RBC Auto Ql (Bld) 0.0 /100{WBC} 0-0.5 [facility] Partial Thromboplastin Timeo n 03-12-2023 aPTT Coag (Bld) [Time] 26.1 s Normal 25.1-36.5 [facility] Comment on above: Result Comment: A he matocrit value greater than 55% may lead to inaccurate results in coagulation testing. Patients having hematocrit values >55% require a special collection tube for coagulation studies. Please contact the laboratory at [phone] for redraw instructions. PERFORMED BY: [place] [address] PATHOLOGIST TRIMMING OPERATOR RAQUEL LOPEZ M.D. Performed By: #### B SANDBLAST OPERATOR, BMP, PT, PTT, HS TROP, CBC, TSH3, CK #### [address] Platelet mean volume Auto (B ld) [Entitic vol]Ordered By: Hunter Dhillon on 03-12-2023 Platelet mean volume (Bld) [Entitic vol] 7.2 fL 6.3-10.7 [facility] Platelets Auto (Bld) [#/Vol] Ordered By: Hunter Dhillon on 03-12-2023 Platelets (Bld) [#/Vol] 237 10*3/uL 150-450 [facility] Potassium [Moles/volume] in Serum or PlasmaOrdered By: Hunter Dhillon on 03-12-2023 Potassium [Moles/Vol] 4.5 mmol/L 3.5-5.1 [facility] Protein Auto test strip (U) [Mass/Vol]Ordered By: Hunter Dhillon on 03-12-2023 Protein (U) [Mass/Vol] Negative Negative [facility] Protein [Mass/volume] in Ser um or PlasmaOrdered By: Hunter Dhillon on 03-12-2023 Protein [Mass/Vol] 6.3 g/dL 6.4-8.9 [facility] Prothrombin Time INRon 03-12 INR Coag (PPP) [Relative time] 0.9 {INR} Normal [facility] Comment on above: Result Comment: INR Therapeutic [...] 3 - 4.5 Performed By: #### B SANDBLAST OPERATOR, BMP, PT, PTT, HS TROP, CBC, TSH3, CK #### [facility] [address] [place] [id number] [facility] PT Coag (PPP) [Time] 11.3 s Normal 9.0-12.9 [facility] Comment on above: Result Comment: A he matocrit value greater than 55% may lead to inaccurate results in coagulation testing. Patients having hematocrit values >55% require a special collection tube for coagulation studies. Please contact the laboratory at [phone] for redraw instructions. Performed By: #### B SANDBLAST OPERATOR, BMP, PT, PTT, HS TROP, CBC, TSH3, CK #### [facility] [address] [place] [id number] [facility] Prothrombin time (PT)Ordered By: Hunter Dhillon on 03-12-2023 PT Coag (PPP) [Time] 11.3 s 9.0-12.9 [facility] Comment on above: A hematocrit value g reater than 55% may lead to inaccurate results in coagulation testing. Patients having hematocrit values >55% require a special collection tube for coagulation studies. Please contact the laboratory at [phone] for redraw instructions. RBC Auto (Bld) [#/Vol]Ordere d By: Hunter Dhillon on 03-12-2023 RBC (Bld) [#/Vol] 3.87 10*6/uL 3.60-5.00 [facility] Serum or plasma albumin/glob ulin mass ratioOrdered By: Hunter Dhillon on 03-12-2023 Albumin/Globulin [Mass ratio] 1.9 {ratio} [facility] Serum or plasma anion gap de terminationOrdered By: Hunter Dhillon on 03-12-2023 Anion gap [Moles/Vol] 13.3 mmol/L 6.0-15.0 [facility] Serum or plasma non-glucuron idated bilirubin measurement (mass/volume)Ordered By: Hunter hDillon on 03-12-2023 Bilirubin.indirect [Mass/Vol] 0.3 mg/dL [facility] Sodium [Moles/volume] in Ser um or PlasmaOrdered By: Hunter Dhillon on 03-12-2023 Sodium [Moles/Vol] 128 mmol/L 136-145 [facility] Squamous epithelial cells de tection in urine sediment by light microscopyOrdered By: Hunter Dhillon on 03-12-2023 Epithelial cells.squamous LM Ql (Urine sed) 5-9 [HPF] 0-2 [facility] Thyroid Stimulating Hormoneo n 03-12-2023 TSH Qn 0.01 m[IU]/L Low 0.45-5.33 [facility] Comment on above: Result Comment: PERF ORMED BY: [place] [address] PATHOLOGIST TRIMMING OPERATOR RAQUEL LOPEZ M.D. Performed By: #### B SANDBLAST OPERATOR, BMP, PT, PTT, HS TROP, CBC, TSH3, CK #### [facility] [address] [place] [address] [place] Thyrotropin [Units/volume] i n Serum or PlasmaOrdered By: Hunter Dhillon on 03-12-2023 TSH Qn 0.01 m[IU]/L 0.45-5.33 [facility] Troponin I High Sensitivityo n 03-12-2023 Troponin I High Sensitivity 5.6 pg/mL Normal 0.0-15.0 [facility] Comment on above: Result Comment: PERF ORMED BY: [facility] [address] [place] [address] PATHOLOGIST TRIMMING OPERATOR RAQUEL LOPEZ M.D. Performed By: #### B SANDBLAST OPERATOR, BMP, PT, PTT, HS TROP, CBC, TSH3, CK #### [facility] [address] [place] [address] [place] Troponin I.cardiac [Mass/vol ume] in Serum or Plasma by Detection limit <= 0.01 ng/Ordered By: Hunter Dhillon on 03-12-2023 Troponin I.cardiac DL <= 0.01 ng/mL [Mass/Vol] 5.6 pg/mL 0.0-15.0 [facility] Urea nitrogen [Mass/volume] in Serum or PlasmaOrdered By: Hunter Dhillon on 03-12-2023 Urea nitrogen [Mass/Vol] 11 mg/dL 7-25 [facility] Urine appearanceOrdered By: Hunter Dhillon on 03-12-2023 Appearance (U) Slightly cloudy Clear [facility] Urine bacteria detection by automated methodOrdered By: Hunter Dhillon on 03-12-2023 Bacteria Auto Ql (U) 1+ None Seen [facility] Urine colorOrdered By: Gera Dhillon on 03-12-2023 Color (U) Yellow Yellow [facility] Urine glucose measurement by automated test strip (mass/volume)Ordered By: Hunter Dhillon on 03-12-2023 Glucose Auto test strip (U) [Mass/Vol] Normal mg/dL Normal [facility] Urine hemoglobin detection b y automated test stripOrdered By: Hunter Dhillon on 03-12-2023 Hemoglobin Auto test strip Ql (U) Negative Negative [facility] Urine leukocyte esterase det ection by automated test stripOrdered By: Hunter Dhillon on 03-12-2023 Leukocyte esterase Auto test strip Ql (U) 3+ Negative [facility] Urine nitrite detection by a utomated test stripOrdered By: Hunter Dhillon on 03-12-2023 Nitrite Auto test strip Ql (U) Negative Negative [facility] Urobilinogen Auto test strip (U) [Mass/Vol]Ordered By: Hunter Dhillon on 03-12-2023 Urobilinogen (U) [Mass/Vol] Normal mg/dL Normal [facility] WBC Auto (Bld) [#/Vol]Ordere d By: Hunter Dhillon on 03-12-2023 WBC (Bld) [#/Vol] 8.9 10*3/uL 3.8-11.6 [facility] pH Auto test strip (U)Ordere d By: Hunter Dhillon on 03-12-2023 pH (U) 1.010 [pH] 1.001-1.03 0 [facility] pH (U) 7.5 [pH] 5.0-9.0 [facility] Basic Metabolic Panelon 02-11 Anion gap [Moles/Vol] 6.6 mmol/L Normal 6.0-15.0 [facility] Comment on above: Performed By: #### B SANDBLAST OPERATOR, BMP, PT, PTT, HS TROP, CBC, TSH3, CK #### [facility] [address] Calcium [Mass/Vol] 8.9 mg/dL Normal 8.6-10.3 [facility] Comment on above: Performed By: #### B SANDBLAST OPERATOR, BMP, PT, PTT, HS TROP, CBC, TSH3, CK #### [facility] [address] Chloride [Moles/Vol] 104 mmol/L Normal 98-107 [facility] Comment on above: Performed By: #### B SANDBLAST OPERATOR, BMP, PT, PTT, HS TROP, CBC, TSH3, CK #### [facility] [address] CO2 [Moles/Vol] 26.8 mmol/L Normal 21.0-31.0 [facility] Comment on above: Performed By: #### B SANDBLAST OPERATOR, BMP, PT, PTT, HS TROP, CBC, TSH3, CK #### [facility] [address] Creatinine [Mass/Vol] 0.83 mg/dL Normal 0.60-1.20 [facility] Comment on above: Performed By: #### B SANDBLAST OPERATOR, BMP, PT, PTT, HS TROP, CBC, TSH3, CK #### [facility] [address] Creatinine Clr Calc Pharmacy 46.94 [facility] Comment on above: Performed By: #### B SANDBLAST OPERATOR, BMP, PT, PTT, HS TROP, CBC, TSH3, CK #### [facility] [address] GFR/1.73 sq M.predicted MDRD (S/P/Bld) [Vol rate/Area] mL/min/{1.73_m2} Normal [facility] Comment on above: Performed By: #### B SANDBLAST OPERATOR, BMP, PT, PTT, HS TROP, CBC, TSH3, CK #### [facility] [address] Glucose [Mass/Vol] 94 mg/dL Normal 70-100 [facility] Comment on above: Result Comment: Vendor Glucose Reference Range is dependent on time and content of last meal. Glucose of more than 200 mg/dL in a nonstressed, ambulatory subject supports the diagnosis of Diabetes Mellitus. ADA recommended reference range Performed By: #### B SANDBLAST OPERATOR, BMP, PT, PTT, HS TROP, CBC, TSH3, CK #### [address] Potassium [Moles/Vol] 4.4 mmol/L Normal 3.5-5.1 [facility] Comment on above: Performed By: #### B SANDBLAST OPERATOR, BMP, PT, PTT, HS TROP, CBC, TSH3, CK #### [address] Sodium [Moles/Vol] 133 mmol/L Low 136-145 [facility] Comment on above: Performed By: #### B SANDBLAST OPERATOR, BMP, PT, PTT, HS TROP, CBC, TSH3, CK #### [address] Urea nitrogen [Mass/Vol] 8 mg/dL Normal 7-25 [facility] Comment on above: Performed By: #### B SANDBLAST OPERATOR, BMP, PT, PTT, HS TROP, CBC, TSH3, CK #### [address] Basophils Auto (Bld) [#/Vol] Ordered By: Chuck Chacon on 03-07-2023 Basophils (Bld) [#/Vol] 0.0 10*3/uL 0.0-0.2 [facility] Basophils/100 WBC Auto (Bld) Ordered By: Chuck Chacon on 03-07-2023 Basophils/100 WBC (Bld) 0.7 % . [facility] Calcium [Mass/volume] in Ser um or PlasmaOrdered By: Chuck Chacon on 03-07-2023 Calcium [Mass/Vol] 8.9 mg/dL 8.6-10.3 [facility] Carbon dioxide, total [Moles /volume] in Serum or PlasmaOrdered By: Chuckscooby Chacon on 03-07-2023 CO2 [Moles/Vol] 26.8 mmol/L 21.0-31.0 [facility] Chloride [Moles/volume] in S yamilex or PlasmaOrdered By: Chuckcaasndra Chacon on 03-07-2023 Chloride [Moles/Vol] 104 mmol/L 98-107 [facility] Complete Blood Count Auto Di ffon 03-07-2023 Basophils (Bld) [#/Vol] 0.0 10*3/uL Normal 0.0-0.2 [facility] Comment on above: Result Comment: PERF ORMED BY: [place] [address] PATHOLOGIST TRIMMING OPERATOR RAQUEL LOPEZ M.D. Performed By: #### B SANDBLAST OPERATOR, BMP, PT, PTT, HS TROP, CBC, TSH3, CK #### [address] Basophils/100 WBC (Bld) 0.7 % Normal . [facility] Comment on above: Performed By: #### B SANDBLAST OPERATOR, BMP, PT, PTT, HS TROP, CBC, TSH3, CK #### [facility] [address] [place] [address] [place] Eosinophils (Bld) [#/Vol] 0.4 10*3/uL Normal 0.0-0.45 [facility] Comment on above: Performed By: #### B SANDBLAST OPERATOR, BMP, PT, PTT, HS TROP, CBC, TSH3, CK #### [facility] [address] Eosinophils/100 WBC (Bld) 5.2 % Normal . [facility] Comment on above: Performed By: #### B SANDBLAST OPERATOR, BMP, PT, PTT, HS TROP, CBC, TSH3, CK #### [address] Erythrocyte distribution width (RBC) [Ratio] 12.8 % Normal 11.9-15.3 [facility] Comment on above: Performed By: #### B SANDBLAST OPERATOR, BMP, PT, PTT, HS TROP, CBC, TSH3, CK #### [address] Hematocrit (Bld) [Volume fraction] 35.2 % Normal 34.0-46.4 [facility] Comment on above: Performed By: #### B SANDBLAST OPERATOR, BMP, PT, PTT, HS TROP, CBC, TSH3, CK #### [address] Hemoglobin (Bld) [Mass/Vol] 12.0 g/dL Normal 11.8-15.4 [facility] Comment on above: Performed By: #### B SANDBLAST OPERATOR, BMP, PT, PTT, HS TROP, CBC, TSH3, CK #### [address] Lymphocytes (Bld) [#/Vol] 1.7 10*3/uL Normal 1.00-4.8 [facility] Comment on above: Performed By: #### B SANDBLAST OPERATOR, BMP, PT, PTT, HS TROP, CBC, TSH3, CK #### [address] Lymphocytes/100 WBC (Bld) 24.6 % Normal . [facility] Comment on above: Performed By: #### B SANDBLAST OPERATOR, BMP, PT, PTT, HS TROP, CBC, TSH3, CK #### [address] MCH (RBC) [Entitic mass] 31.6 pg Normal 24.7-34.3 [facility] Comment on above: Performed By: #### B SANDBLAST OPERATOR, BMP, PT, PTT, HS TROP, CBC, TSH3, CK #### [address] MCV (RBC) [Entitic vol] 92.5 fL Normal 80-100 [facility] Comment on above: Performed By: #### B SANDBLAST OPERATOR, BMP, PT, PTT, HS TROP, CBC, TSH3, CK #### [address] Mean Corpuscular HGB Conc 34.1 g/dL Normal 32.0-35.0 [facility] Comment on above: Performed By: #### B SANDBLAST OPERATOR, BMP, PT, PTT, HS TROP, CBC, TSH3, CK #### [address] Monocytes (Bld) [#/Vol] 0.6 10*3/uL Normal 0.0-0.8 [facility] Comment on above: Performed By: #### B SANDBLAST OPERATOR, BMP, PT, PTT, HS TROP, CBC, TSH3, CK #### [address] Monocytes/100 WBC (Bld) 8.7 % Normal . [facility] Comment on above: Performed By: #### B SANDBLAST OPERATOR, BMP, PT, PTT, HS TROP, CBC, TSH3, CK #### [address] Neutrophils (Bld) [#/Vol] 4.2 10*3/uL Normal 1.8-7.7 [facility] Comment on above: Performed By: #### B SANDBLAST OPERATOR, BMP, PT, PTT, HS TROP, CBC, TSH3, CK #### [address] Neutrophils/100 WBC (Bld) 60.8 % Normal . [facility] Comment on above: Performed By: #### B SANDBLAST OPERATOR, BMP, PT, PTT, HS TROP, CBC, TSH3, CK #### [address] NRBC% 0.0 /100{WBC} Normal 0-0.5 [facility] Comment on above: Performed By: #### B SANDBLAST OPERATOR, BMP, PT, PTT, HS TROP, CBC, TSH3, CK #### [address] Platelet mean volume (Bld) [Entitic vol] 7.5 fL Normal 6.3-10.7 [facility] Comment on above: Performed By: #### B SANDBLAST OPERATOR, BMP, PT, PTT, HS TROP, CBC, TSH3, CK #### [facility] [address] Platelets (Bld) [#/Vol] 232 10*3/uL Normal 150-450 [facility] Comment on above: Performed By: #### B SANDBLAST OPERATOR, BMP, PT, PTT, HS TROP, CBC, TSH3, CK #### [facility] [address] RBC (Bld) [#/Vol] 3.80 10*6/uL Normal 3.60-5.00 [facility] Comment on above: Performed By: #### B SANDBLAST OPERATOR, BMP, PT, PTT, HS TROP, CBC, TSH3, CK #### [facility] [address] WBC (Bld) [#/Vol] 6.8 10*3/uL Normal 3.8-11.6 [facility] Comment on above: Performed By: #### B SANDBLAST OPERATOR, BMP, PT, PTT, HS TROP, CBC, TSH3, CK #### [facility] [address] Creatinine [Mass/volume] in Serum or PlasmaOrdered By: Chuck Chacon on 03-07-2023 Creatinine [Mass/Vol] 0.83 mg/dL 0.60-1.20 [facility] Eosinophils Auto (Bld) [#/Vo l]Ordered By: Chuck Chacon on 03-07-2023 Eosinophils (Bld) [#/Vol] 0.4 10*3/uL 0.0-0.45 [facility] Eosinophils/100 WBC Auto (Bl d)Ordered By: Chuck Chacon on 03-07-2023 Eosinophils/100 WBC (Bld) 5.2 % . [facility] Erythrocyte distribution wid th Auto (RBC) [Ratio]Ordered By: Chuck Chacon on 03-07-2023 Erythrocyte distribution width (RBC) [Ratio] 12.8 % 11.9-15.3 [facility] Glucose [Mass/volume] in Ser um or PlasmaOrdered By: Chuck Chacon on 03-07-2023 Glucose [Mass/Vol] 94 mg/dL 70-100 [facility] Comment on above: ADA recommended refe rence rangeRandom Glucose Reference Range is dependent on time and content of last meal. Glucose of more than 200 mg/dL in a nonstressed, ambulatory subject supports the diagnosis of Diabetes Mellitus. Hematocrit Auto (Bld) [Volum e fraction]Ordered By: Chuck Chacon on 03-07-2023 Hematocrit (Bld) [Volume fraction] 35.2 % 34.0-46.4 [facility] Hemoglobin [Mass/volume] in BloodOrdered By: Chuck Chacon on 03-07-2023 Hemoglobin (Bld) [Mass/Vol] 12.0 g/dL 11.8-15.4 [facility] Leukocytes [#/volume] correc jazmyne for nucleated erythrocytes in Blood by Automated counOrdered By: Chuck Chacon on 03-07-2023 WBC corrected for nucl RBC Auto (Bld) [#/Vol] 6.8 10*3/uL 3.8-11.6 [facility] Lymphocytes Auto (Bld) [#/Vo l]Ordered By: Chuck Chacon on 03-07-2023 Lymphocytes (Bld) [#/Vol] 1.7 10*3/uL 1.00-4.8 [facility] Lymphocytes/100 WBC Auto (Bl d)Ordered By: Chuck Chacon on 03-07-2023 Lymphocytes/100 WBC (Bld) 24.6 % . [facility] MCH Auto (RBC) [Entitic mass ]Ordered By: Chuck Chacon on 03-07-2023 MCH (RBC) [Entitic mass] 31.6 pg 24.7-34.3 [facility] MCHC Auto (RBC) [Mass/Vol]Or dered By: Chuck Chacon on 03-07-2023 MCHC (RBC) [Mass/Vol] 34.1 g/dL 32.0-35.0 [facility] MCV Auto (RBC) [Entitic vol] Ordered By: Chuck Chacon on 03-07-2023 MCV (RBC) [Entitic vol] 92.5 fL 80-100 [facility] Magnesiumon 03-07-2023 Magnesium [Mass/Vol] 1.4 mg/dL Low 1.9-2.7 [facility] Comment on above: Result Comment: PERF ORMED BY: [facility] [address] [place] [address] PATHOLOGIST TRIMMING OPERATOR RAQUEL LOPEZ M.D. Performed By: #### B SANDBLAST OPERATOR, BMP, PT, PTT, HS TROP, CBC, TSH3, CK #### [facility] [address] Magnesium [Mass/volume] in S yamilex or PlasmaOrdered By: Chuck Chacon on 03-07-2023 Magnesium [Mass/Vol] 1.4 mg/dL 1.9-2.7 [facility] Monocytes Auto (Bld) [#/Vol] Ordered By: Chuck Chacon on 03-07-2023 Monocytes (Bld) [#/Vol] 0.6 10*3/uL 0.0-0.8 [facility] Monocytes/100 WBC Auto (Bld) Ordered By: Chuck Chacon on 03-07-2023 Monocytes/100 WBC (Bld) 8.7 % . [facility] Neutrophils Auto (Bld) [#/Vo l]Ordered By: Chuck Chacon on 03-07-2023 Neutrophils (Bld) [#/Vol] 4.2 10*3/uL 1.8-7.7 [facility] Neutrophils/100 WBC Auto (Bl d)Ordered By: Chuck Chacon on 03-07-2023 Neutrophils/100 WBC (Bld) 60.8 % . [facility] No Panel InformationOrdered By: Chuck Chacon on 03-07-2023 Estimated GFR (CKD-EPI) > 60.0 mL/Min [facility] Creatinine Clearance (Chem 46.94 [facility] Nucleated erythrocytes [Pres ence] in Blood by Automated countOrdered By: Chuck Chacon on 03-07-2023 Nucleated RBC Auto Ql (Bld) 0.0 /100{WBC} 0-0.5 [facility] Platelet mean volume Auto (B ld) [Entitic vol]Ordered By: Chuck Chacon on 03-07-2023 Platelet mean volume (Bld) [Entitic vol] 7.5 fL 6.3-10.7 [facility] Platelets Auto (Bld) [#/Vol] Ordered By: Chuck Chacon on 03-07-2023 Platelets (Bld) [#/Vol] 232 10*3/uL 150-450 [facility] Potassium [Moles/volume] in Serum or PlasmaOrdered By: Chuck Chacon on 03-07-2023 Potassium [Moles/Vol] 4.4 mmol/L 3.5-5.1 [facility] RBC Auto (Bld) [#/Vol]Ordere d By: Chuck Chacon on 03-07-2023 RBC (Bld) [#/Vol] 3.80 10*6/uL 3.60-5.00 [facility] Serum or plasma anion gap de terminationOrdered By: Chuck Chacon on 03-07-2023 Anion gap [Moles/Vol] 6.6 mmol/L 6.0-15.0 [facility] Sodium [Moles/volume] in Ser um or PlasmaOrdered By: Chuck Chacon on 03-07-2023 Sodium [Moles/Vol] 133 mmol/L 136-145 [facility] Urea nitrogen [Mass/volume] in Serum or PlasmaOrdered By: Chuck Chacon on 03-07-2023 Urea nitrogen [Mass/Vol] 8 mg/dL 7-25 [facility] WBC Auto (Bld) [#/Vol]Ordere d By: Chuck Chacon on 03-07-2023 WBC (Bld) [#/Vol] 6.8 10*3/uL 3.8-11.6 [facility] A1C with Estimated Average G luon 03-06-2023 Glucose [Mass/Vol] 120 mg/dL Normal [facility] Comment on above: Result Comment: PERF ORMED BY: [place] [address] PATHOLOGIST TRIMMING OPERATOR RAQUEL LOPEZ M.D. Performed By: #### B SANDBLAST OPERATOR, BMP, PT, PTT, HS TROP, CBC, TSH3, CK #### [address] HbA1c (Bld) [Mass fraction] 5.8 % High 4.3-5.6 [facility] Comment on above: Result Comment: Incr eased risk for diabetes: 5.7 - 6.4 diabetes: >6.4 glycemic control for adults with diabetes: <7.0 Performed By: #### B SANDBLAST OPERATOR, BMP, PT, PTT, HS TROP, CBC, TSH3, CK #### [address] Alanine aminotransferase [En zymatic activity/volume] in Serum or PlasmaOrdered By: Obaydah Daromar on 03-06-2023 ALT [Catalytic activity/Vol] 17 U/L 7-52 [facility] Albumin [Mass/volume] in Ser um or Plasma by Bromocresol green (BCG) dye binding methoOrdered By: Obaydah Daromar on 03-06-2023 Albumin BCG dye [Mass/Vol] 4.3 g/dL 3.5-5.7 [facility] Alkaline phosphatase [Enzyma tic activity/volume] in Serum or PlasmaOrdered By: Obaydah Daromar on 03-06-2023 ALP [Catalytic activity/Vol] 45 U/L 34-104 [facility] Aspartate aminotransferase [ Enzymatic activity/volume] in Serum or PlasmaOrdered By: Obaydah Daromar on 03-06-2023 AST [Catalytic activity/Vol] 16 U/L 13-39 [facility] Bilirubin.total [Mass/volume ] in Serum or PlasmaOrdered By: Obaydah Daromar on 03-06-2023 Bilirubin [Mass/Vol] 0.5 mg/dL 0.3-1.0 [facility] Cholesterol [Mass/volume] in Serum or PlasmaOrdered By: Jemal Jones on 03-06-2023 Cholesterol [Mass/Vol] 88 mg/dL 140-200 [facility] Comment on above: Chol less than 200 m g/dl low riskChol 201-239 mg/dl borderline riskChol 240 mg/dl and greater high risk Cholesterol in LDL Calc [Mas s/Vol]Ordered By: Jemal Jones on 03-06-2023 Cholesterol in LDL [Mass/Vol] 29 mg/dL 0-100 [facility] Comment on above: LDL ATP III CLASSIFI CATIONLDL less than 100 mg/dL OptimalLDL 100-129 mg/dL Near or above optimalLDL 130-159 mg/dL Borderline highLDL 160-189 mg/dL HighLDL greater than 189 mg/dL Very high Cholesterol in VLDL Calc [Ma ss/Vol]Ordered By: Jemal Jones on 03-06-2023 Cholesterol in VLDL [Mass/Vol] 16 mg/dL [facility] Complete Blood Count Auto Di ffon 03-06-2023 Basophils (Bld) [#/Vol] 0.0 10*3/uL Normal 0.0-0.2 [facility] Comment on above: Result Comment: PERF ORMED BY: [place] [address] PATHOLOGIST TRIMMING OPERATOR RAQUEL LOPEZ M.D. Performed By: #### B SANDBLAST OPERATOR, BMP, PT, PTT, HS TROP, CBC, TSH3, CK #### [facility] [address] Basophils/100 WBC (Bld) 0.6 % Normal . [facility] Comment on above: Performed By: #### B SANDBLAST OPERATOR, BMP, PT, PTT, HS TROP, CBC, TSH3, CK #### [facility] [address] [place] [address] [place] Eosinophils (Bld) [#/Vol] 0.3 10*3/uL Normal 0.0-0.45 [facility] Comment on above: Performed By: #### B SANDBLAST OPERATOR, BMP, PT, PTT, HS TROP, CBC, TSH3, CK #### [address] Eosinophils/100 WBC (Bld) 4.2 % Normal . [facility] Comment on above: Performed By: #### B SANDBLAST OPERATOR, BMP, PT, PTT, HS TROP, CBC, TSH3, CK #### [address] Erythrocyte distribution width (RBC) [Ratio] 12.9 % Normal 11.9-15.3 [facility] Comment on above: Performed By: #### B SANDBLAST OPERATOR, BMP, PT, PTT, HS TROP, CBC, TSH3, CK #### [address] Hematocrit (Bld) [Volume fraction] 37.9 % Normal 34.0-46.4 [facility] Comment on above: Performed By: #### B SANDBLAST OPERATOR, BMP, PT, PTT, HS TROP, CBC, TSH3, CK #### [address] Hemoglobin (Bld) [Mass/Vol] 13.0 g/dL Normal 11.8-15.4 [facility] Comment on above: Performed By: #### B SANDBLAST OPERATOR, BMP, PT, PTT, HS TROP, CBC, TSH3, CK #### [address] Lymphocytes (Bld) [#/Vol] 1.7 10*3/uL Normal 1.00-4.8 [facility] Comment on above: Performed By: #### B SANDBLAST OPERATOR, BMP, PT, PTT, HS TROP, CBC, TSH3, CK #### [address] Lymphocytes/100 WBC (Bld) 22.0 % Normal . [facility] Comment on above: Performed By: #### B SANDBLAST OPERATOR, BMP, PT, PTT, HS TROP, CBC, TSH3, CK #### [address] MCH (RBC) [Entitic mass] 31.5 pg Normal 24.7-34.3 [facility] Comment on above: Performed By: #### B SANDBLAST OPERATOR, BMP, PT, PTT, HS TROP, CBC, TSH3, CK #### [address] MCV (RBC) [Entitic vol] 91.9 fL Normal 80-100 [facility] Comment on above: Performed By: #### B SANDBLAST OPERATOR, BMP, PT, PTT, HS TROP, CBC, TSH3, CK #### [address] Mean Corpuscular HGB Conc 34.3 g/dL Normal 32.0-35.0 [facility] Comment on above: Performed By: #### B SANDBLAST OPERATOR, BMP, PT, PTT, HS TROP, CBC, TSH3, CK #### [address] Monocytes (Bld) [#/Vol] 0.6 10*3/uL Normal 0.0-0.8 [facility] Comment on above: Performed By: #### B SANDBLAST OPERATOR, BMP, PT, PTT, HS TROP, CBC, TSH3, CK #### [address] Monocytes/100 WBC (Bld) 8.2 % Normal . [facility] Comment on above: Performed By: #### B SANDBLAST OPERATOR, BMP, PT, PTT, HS TROP, CBC, TSH3, CK #### [address] Neutrophils (Bld) [#/Vol] 5.1 10*3/uL Normal 1.8-7.7 [facility] Comment on above: Performed By: #### B SANDBLAST OPERATOR, BMP, PT, PTT, HS TROP, CBC, TSH3, CK #### [address] Neutrophils/100 WBC (Bld) 65.0 % Normal . [facility] Comment on above: Performed By: #### B SANDBLAST OPERATOR, BMP, PT, PTT, HS TROP, CBC, TSH3, CK #### [address] NRBC% 0.1 /100{WBC} Normal 0-0.5 [facility] Comment on above: Performed By: #### B SANDBLAST OPERATOR, BMP, PT, PTT, HS TROP, CBC, TSH3, CK #### [address] Platelet mean volume (Bld) [Entitic vol] 7.4 fL Normal 6.3-10.7 [facility] Comment on above: Performed By: #### B SANDBLAST OPERATOR, BMP, PT, PTT, HS TROP, CBC, TSH3, CK #### [address] Platelets (Bld) [#/Vol] 257 10*3/uL Normal 150-450 [facility] Comment on above: Performed By: #### B SANDBLAST OPERATOR, BMP, PT, PTT, HS TROP, CBC, TSH3, CK #### [address] RBC (Bld) [#/Vol] 4.12 10*6/uL Normal 3.60-5.00 [facility] Comment on above: Performed By: #### B SANDBLAST OPERATOR, BMP, PT, PTT, HS TROP, CBC, TSH3, CK #### [address] WBC (Bld) [#/Vol] 7.8 10*3/uL Normal 3.8-11.6 [facility] Comment on above: Performed By: #### B SANDBLAST OPERATOR, BMP, PT, PTT, HS TROP, CBC, TSH3, CK #### [address] Comprehensive Metabolic Pane zofia 03-06-2023 Albumin [Mass/Vol] 4.3 g/dL Normal 3.5-5.7 [facility] Comment on above: Performed By: #### B SANDBLAST OPERATOR, BMP, PT, PTT, HS TROP, CBC, TSH3, CK #### [address] Albumin/Globulin [Mass ratio] 1.9 {ratio} Normal [facility] Comment on above: Performed By: #### B SANDBLAST OPERATOR, BMP, PT, PTT, HS TROP, CBC, TSH3, CK #### [facility] [address] ALP [Catalytic activity/Vol] 45 U/L Normal 34-104 [facility] Comment on above: Performed By: #### B SANDBLAST OPERATOR, BMP, PT, PTT, HS TROP, CBC, TSH3, CK #### [facility] [address] ALT [Catalytic activity/Vol] 17 U/L Normal 7-52 [facility] Comment on above: Performed By: #### B SANDBLAST OPERATOR, BMP, PT, PTT, HS TROP, CBC, TSH3, CK #### [facility] [address] Anion gap [Moles/Vol] 10.4 mmol/L Normal 6.0-15.0 [facility] Comment on above: Performed By: #### B SANDBLAST OPERATOR, BMP, PT, PTT, HS TROP, CBC, TSH3, CK #### [facility] [address] AST [Catalytic activity/Vol] 16 U/L Normal 13-39 [facility] Comment on above: Performed By: #### B SANDBLAST OPERATOR, BMP, PT, PTT, HS TROP, CBC, TSH3, CK #### [facility] [address] Bilirubin [Mass/Vol] 0.5 mg/dL Normal 0.3-1.0 [facility] Comment on above: Performed By: #### B SANDBLAST OPERATOR, BMP, PT, PTT, HS TROP, CBC, TSH3, CK #### [facility] [address] Calcium [Mass/Vol] 9.2 mg/dL Normal 8.6-10.3 [facility] Comment on above: Performed By: #### B SANDBLAST OPERATOR, BMP, PT, PTT, HS TROP, CBC, TSH3, CK #### [facility] [address] Chloride [Moles/Vol] 98 mmol/L Normal 98-107 [facility] Comment on above: Performed By: #### B SANDBLAST OPERATOR, BMP, PT, PTT, HS TROP, CBC, TSH3, CK #### [facility] [address] CO2 [Moles/Vol] 24.9 mmol/L Normal 21.0-31.0 [facility] Comment on above: Performed By: #### B SANDBLAST OPERATOR, BMP, PT, PTT, HS TROP, CBC, TSH3, CK #### [facility] [address] Creatinine [Mass/Vol] 0.85 mg/dL Normal 0.60-1.20 [facility] Comment on above: Performed By: #### B SANDBLAST OPERATOR, BMP, PT, PTT, HS TROP, CBC, TSH3, CK #### [facility] [address] Creatinine Clr Calc Pharmacy 45.45 [facility] Comment on above: Performed By: #### B SANDBLAST OPERATOR, BMP, PT, PTT, HS TROP, CBC, TSH3, CK #### [facility] [address] GFR/1.73 sq M.predicted MDRD (S/P/Bld) [Vol rate/Area] mL/min/{1.73_m2} [facility] Comment on above: Performed By: #### B SANDBLAST OPERATOR, BMP, PT, PTT, HS TROP, CBC, TSH3, CK #### [facility] [address] Globulin (S) [Mass/Vol] 2.3 g/dL [facility] Comment on above: Performed By: #### B SANDBLAST OPERATOR, BMP, PT, PTT, HS TROP, CBC, TSH3, CK #### [facility] [address] Glucose [Mass/Vol] 97 mg/dL Normal 70-100 [facility] Comment on above: Result Comment: Vendor Glucose Reference Range is dependent on time and content of last meal. Glucose of more than 200 mg/dL in a nonstressed, ambulatory subject supports the diagnosis of Diabetes Mellitus. ADA recommended reference range Performed By: #### B SANDBLAST OPERATOR, BMP, PT, PTT, HS TROP, CBC, TSH3, CK #### [facility] [address] Potassium [Moles/Vol] 4.3 mmol/L Normal 3.5-5.1 [facility] Comment on above: Performed By: #### B SANDBLAST OPERATOR, BMP, PT, PTT, HS TROP, CBC, TSH3, CK #### [facility] [address] Protein [Mass/Vol] 6.6 g/dL Normal 6.4-8.9 [facility] Comment on above: Performed By: #### B SANDBLAST OPERATOR, BMP, PT, PTT, HS TROP, CBC, TSH3, CK #### [address] Sodium [Moles/Vol] 129 mmol/L Low 136-145 [facility] Comment on above: Performed By: #### B SANDBLAST OPERATOR, BMP, PT, PTT, HS TROP, CBC, TSH3, CK #### [address] Urea nitrogen [Mass/Vol] 14 mg/dL Normal -25 [facility] Comment on above: Performed By: #### B SANDBLAST OPERATOR, BMP, PT, PTT, HS TROP, CBC, TSH3, CK #### [place] [address] [place] Dipstick and Microscopicon 0 03-06-2023 Appearance (U) Clear Normal Clear [facility] Comment on above: Order Comment: Name Collection Type:: Clean-Voided Midstream Performed By: #### A DDONUAPLUS #### [place] [address] [place] Bacteria,Urine 1+ High None Seen [facility] Comment on above: Order Comment: Name Collection Type:: Clean-Voided Midstream Performed By: #### A DDONUAPLUS #### [place] [address] [place] Bilirubin,Urine Negative Normal Negative [facility] Comment on above: Order Comment: Name Collection Type:: Clean-Voided Midstream Performed By: #### A DDONUAPLUS #### [facility] [address] [place] [address] [place] Color (U) Yellow Normal Yellow [facility] Comment on above: Order Comment: Name Collection Type:: Clean-Voided Midstream Performed By: #### A DDONUAPLUS #### [facility] [address] [place] [address] [place] Glucose Ql (U) Normal Normal Normal [facility] Comment on above: Order Comment: Name Collection Type:: Clean-Voided Midstream Performed By: #### A DDONUAPLUS #### [facility] [address] [place] [address] [place] Hyaline Casts,Urine None Seen Normal 0-1 [facility] Comment on above: Order Comment: Name Collection Type:: Clean-Voided Midstream Result Comment: PERF ORMED BY: [place] [address] PATHOLOGIST TRIMMING OPERATOR RAQUEL LOPEZ M.D. Performed By: #### A DDONUAPLUS #### [facility] [address] [place] [address] [place] Ketones Ql (U) Trace High Negative [facility] Comment on above: Order Comment: Name Collection Type:: Clean-Voided Midstream Performed By: #### A DDONUAPLUS #### [facility] [address] [place] [address] [place] Leukocyte esterase Test strip Ql (U) 1+ High Negative [facility] Comment on above: Order Comment: Name Collection Type:: Clean-Voided Midstream Performed By: #### A DDONUAPLUS #### [facility] [address] [place] [address] [place] Nitrite,Urine Negative Normal Negative [facility] Comment on above: Order Comment: Name Collection Type:: Clean-Voided Midstream Performed By: #### A DDONUAPLUS #### [facility] [address] [place] [address] [place] Occult Blood,Urine Negative Normal Negative [facility] Comment on above: Order Comment: Name Collection Type:: Clean-Voided Midstream Result Comment: PERF ORMED BY: [place] [address] PATHOLOGIST TRIMMING OPERATOR RAQUEL LOPEZ M.D. Performed By: #### A DDONUAPLUS #### [address] pH (U) 6.0 [pH] Normal 5.0-9.0 [facility] Comment on above: Order Comment: Name Collection Type:: Clean-Voided Midstream Performed By: #### A DDONUAPLUS #### [address] Protein,Urine Negative Normal Negative [facility] Comment on above: Order Comment: Name Collection Type:: Clean-Voided Midstream Performed By: #### A DDONUAPLUS #### [address] RBC,Urine None Seen Normal 0-4 [facility] Comment on above: Order Comment: Name Collection Type:: Clean-Voided Midstream Performed By: #### A DDONUAPLUS #### [address] Renal Epithelial Cells,Urine Rare Normal 0-1 [facility] Comment on above: Order Comment: Name Collection Type:: Clean-Voided Midstream Performed By: #### A DDONUAPLUS #### [place] [address] [place] Specificy [place],Urine 1.015 Normal 1.001-1.03 0 [facility] Comment on above: Order Comment: Name Collection Type:: Clean-Voided Midstream Performed By: #### A DDONUAPLUS #### [place] [address] [place] Squamous Epithelial Cell,Urine 3-4 High 0-2 [facility] Comment on above: Order Comment: Name Collection Type:: Clean-Voided Midstream Performed By: #### A DDONUAPLUS #### [place] [address] [place] Urobilinogen,Urine Normal Normal Normal [facility] Comment on above: Order Comment: Name Collection Type:: Clean-Voided Midstream Performed By: #### A DDONUAPLUS #### [facility] [address] WBC,Urine 3-4 Normal 0-4 [facility] Comment on above: Order Comment: Name Collection Type:: Clean-Voided Midstream Performed By: #### A DDONUAPLUS #### [facility] [address] [place] [address] ECH echo transthoracicon [facility] echo transthoracic [facility] [place] [address] [place] [address] Echocardiogram Signed Patient: Steven Harding MR#: [id number] 1 : 1940 Acct:[id number] Age/Sex: 83 / F ADM Date: 03/05/23 Loc: Room: [address] [place] [address] Type: ADM INOo Attending Dr: Chuck Chacon MD Ordering Provider: Jemal Jones MD Date of Service: 03/06/23 ECH/ECH echo transthoracic: Dizziness Copies to: MD Jemal Tello MD Weight: 140 lb Performed By: FREDDIE Vallejo BSA: 1.6 m2 BP: 160/69 mmHg HR: 75 Reason For Study: Dizziness History: aortic aneurysm, HTN, ND, pre-DM, PCI, former smoker, CAD Interpretation Summary [...] Signed By: Karli Dougherty MD 03/06/23 1231 [facility] Free T4 (Free Thyroxine)on 0 03-06-2023 Free T4 [Mass/Vol] 1.01 ng/dL Normal 0.61-1.12 [facility] Comment on above: Performed By: #### B SANDBLAST OPERATOR, BMP, PT, PTT, HS TROP, CBC, TSH3, CK #### [facility] [address] [place] [id number] [facility] Globulin Calc (S) [Mass/Vol] Ordered By: Jemal Gonzalezomar on 03-06-2023 Globulin (S) [Mass/Vol] 2.3 g/dL [facility] Glucose Glucometer (BldC) [M ass/Vol]Ordered By: [place] Gonzalezomar on 03-06-2023 Glucose [Mass/Vol] 104 mg/dL [facility] Comment on above: Random Glucose Refer ence Range is dependent on time and content of last meal. Glucose of more than 200 mg/dL in a nonstressed, ambulatory subject supports the diagnosis of Diabetes Mellitus. Glucose Poct Glucometerson 0 03-06-2023 Glucose [Mass/Vol] 104 mg/dL Normal [facility] Comment on above: Result Comment: Vendor om Glucose Reference Range is dependent on time and content of last meal. Glucose of more than 200 mg/dL in a nonstressed, ambulatory subject supports the diagnosis of Diabetes Mellitus. PERFORMED BY: [place] [address] PATHOLOGIST TRIMMING OPERATOR RAQUEL LOPEZ M.D. Performed By: #### B SANDBLAST OPERATOR, BMP, PT, PTT, HS TROP, CBC, TSH3, CK #### [facility] [address] [place] [id number] [facility] Glucose mean value [Mass/vol ume] in Blood Estimated from glycated hemoglobinOrdered By: Jemal Gonzalezomar on 03-06-2023 Average glucose Estimated from glycated hemoglobin (Bld) [Mass/Vol] 120 mg/dL [facility] Hemoglobin A1c percentageOrd ered By: Jemal Gonzalezomar on 03-06-2023 HbA1c (Bld) [Mass fraction] 5.8 % 4.3-5.6 [facility] Comment on above: Increased risk for d iabetes: 5.7 - 6.4diabetes: >6.4glycemic control for adults with diabetes: <7.0 Lipid Panelon 03-06-2023 Cholesterol [Mass/Vol] 88 mg/dL Low 140-200 [facility] Comment on above: Result Comment: Chol less than 200 mg/dl low risk Chol 201-239 mg/dl borderline risk Chol 240 mg/dl and greater high risk Performed By: #### B SANDBLAST OPERATOR, BMP, PT, PTT, HS TROP, CBC, TSH3, CK #### [facility] [address] Cholesterol in HDL [Mass/Vol] 42 mg/dL Normal 23-92 [facility] Comment on above: Result Comment: HDL CHOL ATP-III CLASSIFICATION Cardiovascular Risk HDL > or equal to 60 mg/dL LOW HDL < 40 mg/dL HIGH Performed By: #### B SANDBLAST OPERATOR, BMP, PT, PTT, HS TROP, CBC, TSH3, CK #### [facility] [address] Cholesterol.total/Chol esterol in HDL [Mass ratio] 2.1 {ratio} Normal <5.0 [facility] Comment on above: Performed By: #### B SANDBLAST OPERATOR, BMP, PT, PTT, HS TROP, CBC, TSH3, CK #### [facility] [address] LDL Cholesterol,Calculated 29 mg/dL Normal 0-100 [facility] Comment on above: Result Comment: LDL ATP III CLASSIFICATION LDL less than 100 mg/dL Optimal LDL 100-129 mg/dL Near or above optimal LDL 130-159 mg/dL Borderline high LDL 160-189 mg/dL High LDL greater than 189 mg/dL Very high Performed By: #### B SANDBLAST OPERATOR, BMP, PT, PTT, HS TROP, CBC, TSH3, CK #### [facility] [address] [place] [id number] [place] Triglyceride w/Reflex 84 mg/dL Normal 0-149 [facility] Comment on above: Result Comment: TRIG ATP III CLASSIFICATION TRIG less than 150 mg/dL Normal TRIG 150-199 mg/dL Borderline high TRIG 200-500 mg/dL High TRIG greater than 500 mg/dL Very high Standard traceable to the Center for Disease Conrtrol and Prevention (CDC) test method. Performed By: #### B SANDBLAST OPERATOR, BMP, PT, PTT, HS TROP, CBC, TSH3, CK #### [facility] [address] VLDL CHOLESTEROL 16 mg/dL Normal [facility] Comment on above: Performed By: #### B SANDBLAST OPERATOR, BMP, PT, PTT, HS TROP, CBC, TSH3, CK #### [facility] [address] Magnesiumon 03-06-2023 Magnesium [Mass/Vol] 1.4 mg/dL Low 1.9-2.7 [facility] Comment on above: Performed By: #### B SANDBLAST OPERATOR, BMP, PT, PTT, HS TROP, CBC, TSH3, CK #### [facility] [address] Protein [Mass/volume] in Ser um or PlasmaOrdered By: Obaydah Daromar on 03-06-2023 Protein [Mass/Vol] 6.6 g/dL 6.4-8.9 [facility] Serum or plasma albumin/glob ulin mass ratioOrdered By: Obaydah Daromar on 03-06-2023 Albumin/Globulin [Mass ratio] 1.9 {ratio} [facility] Serum or plasma high density lipoprotein (HDL) cholesterol measurementOrdered By: Obaydah Daromar on 03-06-2023 Cholesterol in HDL [Mass/Vol] 42 mg/dL 23-92 [facility] Comment on above: HDL CHOL ATP-III CLA SSIFICATION Cardiovascular RiskHDL > or equal to 60 mg/dL LOWHDL < 40 mg/dL HIGH Serum or plasma total choles terol/high density lipoprotein (HDL) cholesterol mass ratOrdered By: Obaydah Carlosomar on 03-06-2023 Cholesterol.total/Chol esterol in HDL [Mass ratio] 2.1 {ratio} <5.0 [facility] Thyroxine (T4) free [Mass/vo lume] in Serum or PlasmaOrdered By: Obaydah Carlosomar on 03-06-2023 Free T4 [Mass/Vol] 1.01 ng/dL 0.61-1.12 [facility] Triglyceride [Mass/volume] i n Serum or PlasmaOrdered By: Jemal Jones on 03-06-2023 Triglyceride [Mass/Vol] 84 mg/dL 0-149 [facility] Comment on above: TRIG ATP III CLASSIF ICATIONTRIG less than 150 mg/dL NormalTRIG 150-199 mg/dL Borderline highTRIG 200-500 mg/dL High TRIG greater than 500 mg/dL Very highStandard traceable to the Center for Disease Conrtrol and Prevention (CDC) test method. Triiodothyronine (T3) Totalo n 03-06-2023 Triiodothyronine (T3) Total 1.29 ng/mL Normal 0.87-1.78 [facility] Comment on above: Result Comment: PERF ORMED BY: [place] [address] PATHOLOGIST TRIMMING OPERATOR RAQUEL LOPEZ M.D. Performed By: #### B SANDBLAST OPERATOR, BMP, PT, PTT, HS TROP, CBC, TSH3, CK #### [address] Triiodothyronine (T3) [Mass/ volume] in Serum or PlasmaOrdered By: Jemal Jones on 03-06-2023 T3 [Mass/Vol] 1.29 ng/mL 0.87-1.78 [facility] US carotid doppler BIon 02-11 US carotid doppler BI [facility] [place] [address] [place] [address] Ultrasound Report Signed Patient: Steven Haridng MR#: [id number] 1 : 1940 Acct:[id number] Age/Sex: 83 / F ADM Date: 03/05/23 Loc: Room: [address] [place] [address] Type: ADM INOo Attending Dr: Chuck Chacon [...] 03/06/23 1419 Signed By: 03/06/23 1421 Normal [facility] Activated partial thrombopla stin time (aPTT) in platelet poor plasma by coagulation aOrdered By: Monique Tierney on 03-05-2023 aPTT Coag (PPP) [Time] 25.4 s 25.1-36.5 [facility] Comment on above: A hematocrit value g reater than 55% may lead to inaccurate results in coagulation testing. Patients having hematocrit values >55% require a special collection tube for coagulation studies. Please contact the laboratory at [phone] for redraw instructions. Automated epithelial cells c ount in urine sediment (number/area)Ordered By: Jemal Jones on 03-05-2023 Epithelial cells Auto (Urine sed) [#/Area] 3-4 [HPF] 0-2 [facility] Automated erythrocytes count in urine sediment (number/area)Ordered By: Jemal Jones on 03-05-2023 RBC Auto (Urine sed) [#/Area] None seen [HPF] 0-4 [facility] Automated leukocytes count i n urine sediment (number/area)Ordered By: Jemal Jones on 03-05-2023 WBC Auto (Urine sed) [#/Area] 3-4 [HPF] 0-4 [facility] Automated urine hyaline cast s count (number/volume)Ordered By: jacqui Jones on 03-05-2023 Hyaline casts Auto (U) [#/Vol] None seen [LPF] 0-1 [facility] B-Type Natriuretic Peptideon 03-05-2023 Natriuretic peptide B (Bld) [Mass/Vol] 42.0 pg/mL Normal 5-100 [facility] Comment on above: Result Comment: PERF ORMED BY: [facility] [address] [place] [address] PATHOLOGIST TRIMMING OPERATOR RAQUEL LOPEZ M.D. Performed By: #### B SANDBLAST OPERATOR, BMP, PT, PTT, HS TROP, CBC, TSH3, CK #### [facility] [address] Basic Metabolic Panelon 09-2 Anion gap [Moles/Vol] 17.1 mmol/L High 6.0-15.0 [facility] Comment on above: Performed By: #### B SANDBLAST OPERATOR, BMP, PT, PTT, HS TROP, CBC, TSH3, CK #### [facility] [address] Calcium [Mass/Vol] 9.7 mg/dL Normal 8.6-10.3 [facility] Comment on above: Performed By: #### B SANDBLAST OPERATOR, BMP, PT, PTT, HS TROP, CBC, TSH3, CK #### [facility] [address] Chloride [Moles/Vol] 93 mmol/L Low 98-107 [facility] Comment on above: Performed By: #### B SANDBLAST OPERATOR, BMP, PT, PTT, HS TROP, CBC, TSH3, CK #### [facility] [address] CO2 [Moles/Vol] 19.4 mmol/L Low 21.0-31.0 [facility] Comment on above: Performed By: #### B SANDBLAST OPERATOR, BMP, PT, PTT, HS TROP, CBC, TSH3, CK #### [facility] [address] Creatinine [Mass/Vol] 0.84 mg/dL Normal 0.60-1.20 [facility] Comment on above: Performed By: #### B SANDBLAST OPERATOR, BMP, PT, PTT, HS TROP, CBC, TSH3, CK #### [facility] [address] Creatinine Clr Calc Pharmacy 46.72 [facility] Comment on above: Performed By: #### B SANDBLAST OPERATOR, BMP, PT, PTT, HS TROP, CBC, TSH3, CK #### [facility] [address] [place] [address] [place] GFR/1.73 sq M.predicted MDRD (S/P/Bld) [Vol rate/Area] mL/min/{1.73_m2} [facility] Comment on above: Performed By: #### B SANDBLAST OPERATOR, BMP, PT, PTT, HS TROP, CBC, TSH3, CK #### [facility] [address] Glucose [Mass/Vol] 85 mg/dL Normal 70-100 [facility] Comment on above: Result Comment: Vendor Glucose Reference Range is dependent on time and content of last meal. Glucose of more than 200 mg/dL in a nonstressed, ambulatory subject supports the diagnosis of Diabetes Mellitus. ADA recommended reference range Performed By: #### B SANDBLAST OPERATOR, BMP, PT, PTT, HS TROP, CBC, TSH3, CK #### [facility] [address] Potassium [Moles/Vol] 4.5 mmol/L Normal 3.5-5.1 [facility] Comment on above: Performed By: #### B SANDBLAST OPERATOR, BMP, PT, PTT, HS TROP, CBC, TSH3, CK #### [facility] [address] Sodium [Moles/Vol] 125 mmol/L Low 136-145 [facility] Comment on above: Performed By: #### B SANDBLAST OPERATOR, BMP, PT, PTT, HS TROP, CBC, TSH3, CK #### [facility] [address] Urea nitrogen [Mass/Vol] 17 mg/dL Normal 7-25 [facility] Comment on above: Performed By: #### B SANDBLAST OPERATOR, BMP, PT, PTT, HS TROP, CBC, TSH3, CK #### [facility] [address] Basophils Auto (Bld) [#/Vol] Ordered By: Monique Tierney on 03-05-2023 Basophils (Bld) [#/Vol] 0.1 10*3/uL 0.0-0.2 [facility] Basophils/100 WBC Auto (Bld) Ordered By: Monique Tierney on 03-05-2023 Basophils/100 WBC (Bld) 0.5 % . [facility] Bilirubin Test strip Ql (U)O rdered By: Jemal Jones on 03-05-2023 Bilirubin Ql (U) Negative Negative [facility] CT angio neckon 03-05-2023 CT angio neck [facility] [place] [address] [place] [address] CT Scan Report Signed Patient: Steven Harding MR#: [id number] 1 : 1940 Acct:[id number] Age/Sex: 83 / F ADM Date: 03/05/23 Loc: ER Room: Type: [facility] ER Attending Dr: Copies to: Monique Tierney MD Ordering Provider: Monique Tierney MD Date of Service: 03/05/23 CT/CT angio neck: episodic dizziness, episode 2 wks ago face tinglin ([id number]) CT/CT angio head: episodic dizziness, episode 2 [...] Bethel Snyder M.D.03/05/2023 7:34 PM Dictation Location: RADIO-PC-05 Transcribed By: OSCAR 03/05/231933 Dictated By: Bethel Snyder DO 03/05/231928 Signed By: 03/05/231933 [facility] CT head/brain wo conon 03-05 CT head/brain wo con [facility] [place] [address] [place] [address] CT Scan Report Signed Patient: Steven Harding MR#: [id number] 1 : 1940 Acct:[id number] Age/Sex: 83 / F ADM Date: 03/05/23 Loc: ER Room: Type: [facility] ER Attending Dr: Copies to: Monique Tierney [...] Bethel Snyder M.D.03/05/2023 7:29 PM Dictation Location: RADIO-PC-05 Transcribed By: OSCAR 03/05/231928 Dictated By: Bethel Snyder DO 03/05/231927 Signed By: 03/05/231928 [facility] Calcium [Mass/volume] in Ser um or PlasmaOrdered By: Monique Tierney on 03-05-2023 Calcium [Mass/Vol] 9.7 mg/dL 8.6-10.3 [facility] Carbon dioxide, total [Moles /volume] in Serum or PlasmaOrdered By: Monique Tierney on 03-05-2023 CO2 [Moles/Vol] 19.4 mmol/L 21.0-31.0 [facility] Chloride [Moles/volume] in S yamilex or PlasmaOrdered By: Monique Tierney on 03-05-2023 Chloride [Moles/Vol] 93 mmol/L 98-107 [facility] Color Auto (U)Ordered By: Ob jacqui Jones on 03-05-2023 Color (U) Yellow Yellow [facility] Complete Blood Count Auto Di ffon 03-05-2023 Basophils (Bld) [#/Vol] 0.1 10*3/uL Normal 0.0-0.2 [facility] Comment on above: Result Comment: PERF ORMED BY: [facility] [address] [place] [address] PATHOLOGIST TRIMMING OPERATOR RAQUEL LOPEZ M.D. Performed By: #### B SANDBLAST OPERATOR, BMP, PT, PTT, HS TROP, CBC, TSH3, CK #### [facility] [address] Basophils/100 WBC (Bld) 0.5 % Normal . [facility] Comment on above: Performed By: #### B SANDBLAST OPERATOR, BMP, PT, PTT, HS TROP, CBC, TSH3, CK #### [facility] [address] [place] [address] [place] Eosinophils (Bld) [#/Vol] 0.3 10*3/uL Normal 0.0-0.45 [facility] Comment on above: Performed By: #### B SANDBLAST OPERATOR, BMP, PT, PTT, HS TROP, CBC, TSH3, CK #### [facility] [address] [place] [address] [place] Eosinophils/100 WBC (Bld) 2.8 % Normal . [facility] Comment on above: Performed By: #### B SANDBLAST OPERATOR, BMP, PT, PTT, HS TROP, CBC, TSH3, CK #### [address] Erythrocyte distribution width (RBC) [Ratio] 12.8 % Normal 11.9-15.3 [facility] Comment on above: Performed By: #### B SANDBLAST OPERATOR, BMP, PT, PTT, HS TROP, CBC, TSH3, CK #### [address] Hematocrit (Bld) [Volume fraction] 39.9 % Normal 34.0-46.4 [facility] Comment on above: Performed By: #### B SANDBLAST OPERATOR, BMP, PT, PTT, HS TROP, CBC, TSH3, CK #### [address] Hemoglobin (Bld) [Mass/Vol] 13.6 g/dL Normal 11.8-15.4 [facility] Comment on above: Performed By: #### B SANDBLAST OPERATOR, BMP, PT, PTT, HS TROP, CBC, TSH3, CK #### [address] Lymphocytes (Bld) [#/Vol] 1.7 10*3/uL Normal 1.00-4.8 [facility] Comment on above: Performed By: #### B SANDBLAST OPERATOR, BMP, PT, PTT, HS TROP, CBC, TSH3, CK #### [address] Lymphocytes/100 WBC (Bld) 14.7 % Normal . [facility] Comment on above: Performed By: #### B SANDBLAST OPERATOR, BMP, PT, PTT, HS TROP, CBC, TSH3, CK #### [address] MCH (RBC) [Entitic mass] 31.3 pg Normal 24.7-34.3 [facility] Comment on above: Performed By: #### B SANDBLAST OPERATOR, BMP, PT, PTT, HS TROP, CBC, TSH3, CK #### [address] MCV (RBC) [Entitic vol] 91.9 fL Normal 80-100 [facility] Comment on above: Performed By: #### B SANDBLAST OPERATOR, BMP, PT, PTT, HS TROP, CBC, TSH3, CK #### [address] Mean Corpuscular HGB Conc 34.0 g/dL Normal 32.0-35.0 [facility] Comment on above: Performed By: #### B SANDBLAST OPERATOR, BMP, PT, PTT, HS TROP, CBC, TSH3, CK #### [address] Monocytes (Bld) [#/Vol] 0.6 10*3/uL Normal 0.0-0.8 [facility] Comment on above: Performed By: #### B SANDBLAST OPERATOR, BMP, PT, PTT, HS TROP, CBC, TSH3, CK #### [address] Monocytes/100 WBC (Bld) 18.39 % Normal 0.00-20.00 [facility] Comment on above: Performed By: #### B SANDBLAST OPERATOR, BMP, PT, PTT, HS TROP, CBC, TSH3, CK #### [place] [address] [place] Monocytes/100 WBC (Bld) 5.4 % Normal . [facility] Comment on above: Performed By: #### B SANDBLAST OPERATOR, BMP, PT, PTT, HS TROP, CBC, TSH3, CK #### [place] [address] [place] Neutrophils (Bld) [#/Vol] 8.7 10*3/uL High 1.8-7.7 [facility] Comment on above: Performed By: #### B SANDBLAST OPERATOR, BMP, PT, PTT, HS TROP, CBC, TSH3, CK #### [place] [address] [place] Neutrophils/100 WBC (Bld) 76.6 % Normal . [facility] Comment on above: Performed By: #### B SANDBLAST OPERATOR, BMP, PT, PTT, HS TROP, CBC, TSH3, CK #### [place] [address] [place] NRBC% 0.1 /100{WBC} Normal 0-0.5 [facility] Comment on above: Performed By: #### B SANDBLAST OPERATOR, BMP, PT, PTT, HS TROP, CBC, TSH3, CK #### [address] Platelet mean volume (Bld) [Entitic vol] 7.5 fL Normal 6.3-10.7 [facility] Comment on above: Performed By: #### B SANDBLAST OPERATOR, BMP, PT, PTT, HS TROP, CBC, TSH3, CK #### [facility] [address] Platelets (Bld) [#/Vol] 285 10*3/uL Normal 150-450 [facility] Comment on above: Performed By: #### B SANDBLAST OPERATOR, BMP, PT, PTT, HS TROP, CBC, TSH3, CK #### [address] RBC (Bld) [#/Vol] 4.34 10*6/uL Normal 3.60-5.00 [facility] Comment on above: Performed By: #### B SANDBLAST OPERATOR, BMP, PT, PTT, HS TROP, CBC, TSH3, CK #### [address] WBC (Bld) [#/Vol] 11.4 10*3/uL Normal 3.8-11.6 [facility] Comment on above: Performed By: #### B SANDBLAST OPERATOR, BMP, PT, PTT, HS TROP, CBC, TSH3, CK #### [address] Creatine Kinaseon 03-05-2023 CK [Catalytic activity/Vol] 18 U/L Low 30-223 [facility] Comment on above: Performed By: #### B SANDBLAST OPERATOR, BMP, PT, PTT, HS TROP, CBC, TSH3, CK #### [address] Creatine kinase [Enzymatic a ctivity/volume] in Serum or PlasmaOrdered By: Monique Tierney on 09-24-2023 CK [Catalytic activity/Vol] 18 U/L 30 [facility] Creatinine [Mass/volume] in Serum or PlasmaOrdered By: Monique Tierney on 03-05-2023 Creatinine [Mass/Vol] 0.84 mg/dL 0.60-1.20 [facility] ECG 12 lead ECGon 03-05-2023 ECG 12 lead ECG [facility] [place] [address] Electrocardiograph Report Signed Patient: Steven Harding MR#: [id number] 1 : 1940 Acct:[id number] Age/Sex: 83 / F ADM Date: 03/05/23 Loc: Room: [address] [place] [address] Type: ADM INOo Attending Dr: Chuck Chacon [...] fascicular block Confirmed by Hoang Mancia DO ([id number]) on 03/06/2023 8:08:36 PM Referred By: Electronically Signed By:Hoang Mancia DO Transcribed By: MUS Signed By Hoang Mancia DO 2007 Normal [facility] Eosinophils Auto (Bld) [#/Vo l]Ordered By: Monique Tierney on 03-05-2023 Eosinophils (Bld) [#/Vol] 0.3 10*3/uL 0.0-0.45 [facility] Eosinophils/100 WBC Auto (Bl d)Ordered By: Monique Tierney on 03-05-2023 Eosinophils/100 WBC (Bld) 2.8 % . [facility] Erythrocyte distribution wid th Auto (RBC) [Ratio]Ordered By: Monique Tierney on 03-05-2023 Erythrocyte distribution width (RBC) [Ratio] 12.8 % 11.9-15.3 [facility] Glucose [Mass/volume] in Ser um or PlasmaOrdered By: Monique Tierney on 03-05-2023 Glucose [Mass/Vol] 85 mg/dL 70-100 [facility] Comment on above: ADA recommended refe rence rangeRandom Glucose Reference Range is dependent on time and content of last meal. Glucose of more than 200 mg/dL in a nonstressed, ambulatory subject supports the diagnosis of Diabetes Mellitus. Hematocrit Auto (Bld) [Volum e fraction]Ordered By: Monique Tierney on 03-05-2023 Hematocrit (Bld) [Volume fraction] 39.9 % 34.0-46.4 [facility] Hemoglobin [Mass/volume] in BloodOrdered By: Monique Tierney on 03-05-2023 Hemoglobin (Bld) [Mass/Vol] 13.6 g/dL 11.8-15.4 [facility] INR in Platelet poor plasma by Coagulation assayOrdered By: Monique Tierney on 03-05-2023 INR Coag (PPP) [Relative time] 0.9 {INR} [facility] Comment on above: INR Therapeutic Rang [...] on 03-05-2023 Ketones (U) [Mass/Vol] Trace Negative [facility] Leukocytes [#/volume] correc jazmyne for nucleated erythrocytes in Blood by Automated counOrdered By: Monique Tierney on 03-05-2023 WBC corrected for nucl RBC Auto (Bld) [#/Vol] 11.4 10*3/uL 3.8-11.6 [facility] Lymphocytes Auto (Bld) [#/Vo l]Ordered By: Monique Tierney on 03-05-2023 Lymphocytes (Bld) [#/Vol] 1.7 10*3/uL 1.00-4.8 [facility] Lymphocytes/100 WBC Auto (Bl d)Ordered By: Monique Tierney on 03-05-2023 Lymphocytes/100 WBC (Bld) 14.7 % . [facility] MCH Auto (RBC) [Entitic mass ]Ordered By: Monique Tierney on 03-05-2023 MCH (RBC) [Entitic mass] 31.3 pg 24.7-34.3 [facility] MCHC Auto (RBC) [Mass/Vol]Or dered By: Monique Tierney on 03-05-2023 MCHC (RBC) [Mass/Vol] 34.0 g/dL 32.0-35.0 [facility] MCV Auto (RBC) [Entitic vol] Ordered By: Monique Tierney on 03-05-2023 MCV (RBC) [Entitic vol] 91.9 fL 80-100 [facility] Monocyte distribution width [Entitic volume] in Blood by AutomatedOrdered By: Monique Tierney on 03-05-2023 Monocyte distribution width Auto (Bld) [Entitic vol] 18.39 % 0.00-20.00 [facility] Monocytes Auto (Bld) [#/Vol] Ordered By: Monique Tierney on 03-05-2023 Monocytes (Bld) [#/Vol] 0.6 10*3/uL 0.0-0.8 [facility] Monocytes/100 WBC Auto (Bld) Ordered By: Monique Tierney on 03-05-2023 Monocytes/100 WBC (Bld) 5.4 % . [facility] Natriuretic peptide B [Mass/ Vol]Ordered By: Monique Tierney on 03-05-2023 Natriuretic peptide B (Bld) [Mass/Vol] 42.0 pg/mL 5-100 [facility] Neutrophils Auto (Bld) [#/Vo l]Ordered By: Monique Tierney on 03-05-2023 Neutrophils (Bld) [#/Vol] 8.7 10*3/uL 1.8-7.7 [facility] Neutrophils/100 WBC Auto (Bl d)Ordered By: Monique Tierney on 03-05-2023 Neutrophils/100 WBC (Bld) 76.6 % . [facility] Nitrite Test strip Ql (U)Ord ered By: Jemal Jones on 03-05-2023 Nitrite Ql (U) Negative Negative [facility] No Panel InformationOrdered By: Monique Tierney on 03-05-2023 Estimated GFR (CKD-EPI) > 60.0 mL/Min [facility] Creatinine Clearance (Chem 46.72 [facility] Nucleated erythrocytes [Pres ence] in Blood by Automated countOrdered By: Monique Tierney on 03-05-2023 Nucleated RBC Auto Ql (Bld) 0.1 /100{WBC} 0-0.5 [facility] Partial Thromboplastin Timeo n 03-05-2023 aPTT Coag (Bld) [Time] 25.4 s Normal 25.1-36.5 [facility] Comment on above: Result Comment: A he matocrit value greater than 55% may lead to inaccurate results in coagulation testing. Patients having hematocrit values >55% require a special collection tube for coagulation studies. Please contact the laboratory at [phone] for redraw instructions. PERFORMED BY: [place] [address] PATHOLOGIST TRIMMING OPERATOR RAQUEL LOPEZ M.D. Performed By: #### B SANDBLAST OPERATOR, BMP, PT, PTT, HS TROP, CBC, TSH3, CK #### [address] Platelet mean volume Auto (B ld) [Entitic vol]Ordered By: Monique Tierney on 03-05-2023 Platelet mean volume (Bld) [Entitic vol] 7.5 fL 6.3-10.7 [facility] Platelets Auto (Bld) [#/Vol] Ordered By: Monique Tierney on 03-05-2023 Platelets (Bld) [#/Vol] 285 10*3/uL 150-450 [facility] Potassium [Moles/volume] in Serum or PlasmaOrdered By: Monique Tierney on 03-05-2023 Potassium [Moles/Vol] 4.5 mmol/L 3.5-5.1 [facility] Protein Auto test strip (U) [Mass/Vol]Ordered By: Jemal Jones on 03-05-2023 Protein (U) [Mass/Vol] Negative Negative [facility] Prothrombin Time INRon 03-05 INR Coag (PPP) [Relative time] 0.9 {INR} Normal [facility] Comment on above: Result Comment: INR [...] 3 - 4.5 Performed By: #### B SANDBLAST OPERATOR, BMP, PT, PTT, HS TROP, CBC, TSH3, CK #### [facility] [address] [place] [id number] [facility] PT Coag (PPP) [Time] 10.9 s Normal 9.0-12.9 [facility] Comment on above: Result Comment: A he matocrit value greater than 55% may lead to inaccurate results in coagulation testing. Patients having hematocrit values >55% require a special collection tube for coagulation studies. Please contact the laboratory at [phone] for redraw instructions. Performed By: #### B SANDBLAST OPERATOR, BMP, PT, PTT, HS TROP, CBC, TSH3, CK #### [facility] [address] [place] [id number] [facility] Prothrombin time (PT)Ordered By: Monique Tierney on 03-05-2023 PT Coag (PPP) [Time] 10.9 s 9.0-12.9 [facility] Comment on above: A hematocrit value g reater than 55% may lead to inaccurate results in coagulation testing. Patients having hematocrit values >55% require a special collection tube for coagulation studies. Please contact the laboratory at [phone] for redraw instructions. RBC Auto (Bld) [#/Vol]Ordere d By: Monique Tierney on 03-05-2023 RBC (Bld) [#/Vol] 4.34 10*6/uL 3.60-5.00 [facility] Serum or plasma anion gap de terminationOrdered By: Monique Tierney on 03-05-2023 Anion gap [Moles/Vol] 17.1 mmol/L 6.0-15.0 [facility] Sodium [Moles/volume] in Ser um or PlasmaOrdered By: Monique Tierney on 03-05-2023 Sodium [Moles/Vol] 125 mmol/L 136-145 [facility] Specific gravity Auto test s trip (U) [Rel density]Ordered By: Jemal Jones on 03-05-2023 Specific gravity (U) [Rel density] 1.015 1.001-1.03 0 [facility] Thyroid Stimulating Hormoneo n 03-05-2023 TSH Qn 0.01 m[IU]/L Low 0.45-5.33 [facility] Comment on above: Result Comment: PERF ORMED BY: [place] [address] PATHOLOGIST TRIMMING OPERATOR RAQUEL LOPEZ M.D. Performed By: #### B SANDBLAST OPERATOR, BMP, PT, PTT, HS TROP, CBC, TSH3, CK #### [facility] [address] [place], [place] [id number] [facility] Thyrotropin [Units/volume] i n Serum or PlasmaOrdered By: Monique Tierney on 03-05-2023 TSH Qn 0.01 m[IU]/L 0.45-5.33 [facility] Troponin I High Sensitivityo n 03-05-2023 Troponin I High Sensitivity 6.3 pg/mL Normal 0.0-15.0 [facility] Comment on above: Result Comment: PERF ORMED BY: [place] [address] PATHOLOGIST TRIMMING OPERATOR RAQUEL LOPEZ M.D. Performed By: #### B SANDBLAST OPERATOR, BMP, PT, PTT, HS TROP, CBC, TSH3, CK #### [facility] [address] [place] [address] Troponin I.cardiac [Mass/vol ume] in Serum or Plasma by Detection limit <= 0.01 ng/Ordered By: Monique Tierney on 03-05-2023 Troponin I.cardiac DL <= 0.01 ng/mL [Mass/Vol] 6.3 pg/mL 0.0-15.0 [facility] Urea nitrogen [Mass/volume] in Serum or PlasmaOrdered By: Monique Tierney on 03-05-2023 Urea nitrogen [Mass/Vol] 17 mg/dL 7-25 [facility] Urine bacteria detection by automated methodOrdered By: Jemal Jones on 03-05-2023 Bacteria Auto Ql (U) 1+ None Seen [facility] Urine clarity by refractomet ry automatedOrdered By: Jemal Jones on 03-05-2023 Clarity Refractometry automated (U) Clear Clear [facility] Urine glucose measurement by automated test strip (mass/volume)Ordered By: Jemal Jones on 03-05-2023 Glucose Auto test strip (U) [Mass/Vol] Normal mg/dL Normal [facility] Urine hemoglobin detection b y automated test stripOrdered By: Jemal Jones on 03-05-2023 Hemoglobin Auto test strip Ql (U) Negative Negative [facility] Urine leukocyte esterase det ection by automated test stripOrdered By: Jemal Jones on 03-05-2023 Leukocyte esterase Auto test strip Ql (U) 1+ Negative [facility] Urine sediment renal epithel ial cell count by microscopy (number/high power field)Ordered By: Jemal Jones on 03-05-2023 Epithelial cells.renal LM.HPF (Urine sed) [#/Area] Rare [HPF] 0-1 [facility] Urobilinogen Auto test strip (U) [Mass/Vol]Ordered By: Jemal Jones on 03-05-2023 Urobilinogen (U) [Mass/Vol] Normal mg/dL Normal [facility] WBC Auto (Bld) [#/Vol]Ordere d By: Monique Tierney on 03-05-2023 WBC (Bld) [#/Vol] 11.4 10*3/uL 3.8-11.6 [facility] XR chest 2V*on 03-05-2023 XR chest 2V* [facility] [address] [address] XRay Report Signed Patient: Steven Harding MR#: [id number] 1 : 1940 Acct:[id number] Age/Sex: 83 / F ADM Date: 03/05/23 Loc: ER Room: Type: [facility] ER Attending Dr: Copies to: Monique Tierney [...] Bethel Snyder M.D.03/05/2023 7:27 PM Dictation Location: [place] [address] Transcribed By: [facility] 03/05/231926 Dictated By: Bethel Snyder DO 03/05/231925 Signed By: 03/05/231926 [facility] pH Auto test strip (U)Ordere d By: Jemal Jones on 03-05-2023 pH (U) 6.0 [pH] 5.0-9.0 [facility] Office Visit (Cardiology)on 02-16-2023 Follow-up visit [...] Done: 16Feb2023 PMH: Coronary artery disease involving [place] coronary artery of [place] heart without angina pectoris, Mixed hyperlipidemia Renew: [...] FOR CHEST PAIN.CALL 911 IF PAIN PERSISTS. 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 Normal [facility] Screening.on 023 Fall risk assessment a) No falls within the last year -[facility] [employer] [address] DO Work Phone: Tobacco use status CP b) No -[facility] [employer] [address] DO Work Phone: REVERSE T3on 10-17-2022 Reverse T3, Serum 18.8 ng/dL Normal 9.2-24.1 [facility] Comment on above: Performed By: #### R EVRT3 #### [facility] [address] [address] [address] Ellie Smith T3, TOTAL (TRIIODOTHYRONINE) on 10-06-2022 T3, TOTAL 137 ng/dL Normal 71-180 [facility] Comment on above: Performed By: #### P OCGLUC #### [facility] [address] [place] [address] Dr. Ellie Smith FREE T3on 10-05-2022 FREE T3 3.03 pg/mlL Normal 2.18-3.98 [facility] Comment on above: Performed By: #### L ACT #### [facility] [address] [place] [address] Dr. Ellie Smith FREE T4on 10-05-2022 Free T4 [Mass/Vol] 1.02 ng/dL Normal 0.76-1.46 [facility] Comment on above: Performed By: #### F T4 #### [facility] [address] [place] [address] Dr. Ellie Smith TSHon 10-05-2022 TSH 0.032 uIU/mL Critically low 0.358-3.74 0 [facility] Comment on above: Performed By: #### L ACT #### [facility] [address] [place] [address] Dr. Ellie Smith Office Visit (Cardiology)on 08-24-2022 [...] Done: 24Aug2022 PMH: Coronary artery disease involving [place] coronary artery of [place] heart without angina pectoris Renew: Aspirin EC 81 MG Oral Tablet Delayed Release; TAKE 1 TABLET DAILY Renew: Clopidogrel Bisulfate 75 MG Oral Tablet; TAKE 1 TABLET BY MOUTH DAILY PMH: Coronary artery disease involving [place] coronary artery of [place] heart without angina pectoris, Hypertension, benign Renew: Losartan Potassium 100 MG Oral Tablet; TAKE 1 TABLET DAILY PMH: Coronary artery disease involving [place] coronary artery of [place] heart without angina pectoris, Mixed hyperlipidemia Renew: [...] FOR CHEST PAIN.CALL 911 IF PAIN PERSISTS. 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 Respirat (more content not included)... Normal [facility] Screening.on 023 Adult depression screening assessment No [facility] [employer] [address] DO Work Phone: Fall risk assessment a) No falls within the last year [facility] [employer] [address] DO Work Phone: Tobacco use status [facility] b) No [facility] [employer] [address] DO Work Phone: GLYCOHEMOGLOBIN A1Con 2022 ADA RECOMMENDATION SEE BELOW Normal [facility] Comment on above: Result Comment: ADA RECOMMENDED LIMIT 4.0 - 6.0 ADA THERAPEUTIC TARGET < 7.0 ACTION SUGGESTED > 7.0 Performed By: #### A 1C #### [facility] [address] [address] [address] Ellie Smith Glucose [Mass/Vol] 114 mg/dL Normal [facility] Comment on above: Performed By: #### A 1C #### [facility] [address] [address] [address] Ellie Smith HbA1c (Bld) [Mass fraction] 5.6 % Normal 4.5-6.2 [facility] Comment on above: Performed By: #### A 1C #### [facility] [address] [place] [address] Dr. Ellie Smith LIPID PROFILEon 08-15-2022 CHOL-HDL RATIO NORM SEE BELOW Normal [facility] Comment on above: Result Comment: 3.3 - 4.4 LOW RISK 4.4 - 7.1 AVERAGE RISK 7.1 - 11.0 MODERATE RISK >11.0 HIGH RISK Performed By: #### R EVRT3 #### [facility] [address] [place] [address] Dr. Ellie Smith Cholesterol [Mass/Vol] 116 mg/dL Normal <=200 [facility] Comment on above: Performed By: #### R EVRT3 #### [facility] [address] [place] [address] Dr. Ellie Smith Cholesterol in HDL [Mass/Vol] 60 mg/dL Normal 40-60 [facility] Comment on above: Performed By: #### R EVRT3 #### [facility] [address] [place] [address] Dr. Ellie Smith Cholesterol in LDL [Mass/Vol] 46.0 mg/dL Normal [facility] Comment on above: Performed By: #### R EVRT3 #### [facility] [address] [place] [address] Dr. Ellie Smith Cholesterol.total/Chol esterol in HDL [Mass ratio] 1.9 {ratio} Normal [facility] Comment on above: Performed By: #### R EVRT3 #### [facility] Laboratory [address] [place] [address] Dr. Ellie Smith HDL NORMAL > or = 60 mg/dl - LO W CARDIOVASCULAR RISK <40 mg/dl - HIGH CARDIOVASCULAR RISK Normal [facility] Comment on above: Performed By: #### R [id number] #### [facility] [address] [place] [address] Dr. Ellie Smith LDL CALC NORMAL SEE BELOW Normal [facility] Comment on above: Result Comment: <100 mg/dl OPTIMAL 100 - 129 mg/dl NEAR OR ABOVE OPTIMAL 130 - 159 mg/dl BORDERLINE HIGH 160 - 189 mg/dl HIGH >190 mg/dl VERY HIGH Performed By: #### R [id number] #### [facility] [address] [place] [address] Dr. Ellie Smith Triglyceride [Mass/Vol] 50 mg/dL Normal <=150 [facility] Comment on above: Performed By: #### R EVRT3 #### [facility] [address] [place] [address] Dr. Ellie Smith VLDL CALC 10.0 mg/dL Normal [facility] Comment on above: Performed By: #### R EVRT3 #### [facility] [address] [place] [address] Dr. Ellie Smith PROF 14(COMP METB)on 023 Albumin [Mass/Vol] 3.9 g/dL Normal 3.4-5.0 [facility] Comment on above: Performed By: #### R EVRT3 #### [facility] [address] [place] [address] Dr. Ellie Smith Albumin/Globulin [Mass ratio] 1.2 {ratio} Normal [facility] Comment on above: Performed By: #### R EVRT3 #### [facility] [address] [place] [address] Dr. Ellie Smith ALP [Catalytic activity/Vol] 56 U/L Normal 46-116 [facility] Comment on above: Performed By: #### R EVRT3 #### [facility] [address] [place] [address] Dr. Ellie Smith ALT [Catalytic activity/Vol] 27 U/L Normal 14-59 [facility] Comment on above: Performed By: #### R EVRT3 #### [facility] [address] [address] [address] Ellie Smith Anion gap [Moles/Vol] 14.1 mmol/L Normal [facility] Comment on above: Performed By: #### R EVRT3 #### [facility] [address] [address] [address] Ellie Smith AST [Catalytic activity/Vol] 18 U/L Normal 15-37 [facility] Comment on above: Performed By: #### R EVRT3 #### [facility] [address] [address] [address] Ellie Smith Bilirubin [Mass/Vol] 0.4 mg/dL Normal 0.2-1.0 [facility] Comment on above: Performed By: #### R EVRT3 #### [facility] [address] [place] [address] Dr. Ellie Smith Calcium [Mass/Vol] 9.2 mg/dL Normal 8.5-10.1 [facility] Comment on above: Performed By: #### R EVRT3 #### [facility] [address] [address] [address] Ellie Smith Chloride [Moles/Vol] 106 mmol/L Normal 98-107 [facility] Comment on above: Performed By: #### R EVRT3 #### [facility] [address] [place] [address] Dr. Ellie Smith CO2 [Moles/Vol] 26.1 mmol/L Normal 21.0-32.0 [facility] Comment on above: Performed By: #### R EVRT3 #### [facility] [address] [address] [address] Ellie Smith Creatinine [Mass/Vol] 0.68 mg/dL Normal 0.55-1.02 [facility] Comment on above: Performed By: #### R EVRT3 #### [facility] [address] [place] [address] Dr. Ellie Smith EGFR-AF TURKMEN >60 Normal >=60 [facility] Comment on above: Performed By: #### R EVRT3 #### [facility] [address] [address] [address] Ellie Smith EGFR-NON AF TURKMEN >60 Normal >=60 [facility] Comment on above: Performed By: #### R EVRT3 #### [facility] [address] [address] [address] Ellie Smith Globulin (S) [Mass/Vol] 3.2 g/dL Normal [facility] Comment on above: Performed By: #### R EVRT3 #### [facility] [address] [address] [address] Ellie Smith Glucose [Mass/Vol] 99 mg/dL Normal 74-106 [facility] Comment on above: Performed By: #### R EVRT3 #### [facility] [address] [place] [address] Dr. Ellie Smith Potassium [Moles/Vol] 4.2 mmol/L Normal 3.5-5.1 [facility] Comment on above: Performed By: #### R EVRT3 #### [facility] [address] [place] [address] Dr. Ellie Smith Protein [Mass/Vol] 7.1 g/dL Normal 6.4-8.2 [facility] Comment on above: Performed By: #### R EVRT3 #### [facility] [address] [place] [address] Dr. Ellie Smith Sodium [Moles/Vol] 142 mmol/L Normal 136-145 [facility] Comment on above: Performed By: #### R EVRT3 #### [facility] [address] [place] [address] Dr. Ellie Smith Urea nitrogen [Mass/Vol] 16.0 mg/dL Normal 7.0-18.0 [facility] Comment on above: Performed By: #### R EVRT3 #### [facility] [address] [place] [address] Dr. Ellie Smith Urea nitrogen/Creatinine [Mass ratio] 23.5 mg/mg Normal [facility] Comment on above: Performed By: #### R EVRT3 #### [facility] [address] [place] [address] Dr. Ellie Smith REVERSE T3on 04-15-2022 Reverse T3, Serum 15.4 ng/dL Normal 9.2-24.1 [facility] Comment on above: Result Comment: This test was developed and its performance characteristics determined by [employer]. It has not been cleared or approved by the Food and Drug Administration. Performed By: #### L ACT #### [facility] [address] [place] [address] Dr. Ellie Smith T3, TOTAL (TRIIODOTHYRONINE) on 04-13-2022 T3, TOTAL 144 ng/dL Normal 71-180 [facility] Comment on above: Performed By: #### A 1C #### [facility] [address] [place] [address] Dr. Ellie Smith FREE T3on 04-12-2022 FREE T3 2.93 pg/mlL Normal 2.18-3.98 [facility] Comment on above: Performed By: #### T SH, FT3 #### [facility] [address] [place] [address] Dr. Ellie Smith FREE T4on 04-12-2022 Free T4 [Mass/Vol] 0.89 ng/dL Normal 0.76-1.46 [facility] Comment on above: Performed By: #### R EVRT3 #### [facility] [address] [place] [address] Dr. Ellie Smith TSHon 04-12-2022 TSH 0.116 uIU/mL Critically low 0.358-3.74 0 [facility] Comment on above: Performed By: #### T SH, FT3 #### [facility] [address] [place] [address] Dr. Ellie Smith LIPID PROFILEon 03-29-2022 CHOL-HDL RATIO NORM SEE BELOW Normal [facility] Comment on above: Result Comment: 3.3 - 4.4 LOW RISK 4.4 - 7.1 AVERAGE RISK 7.1 - 11.0 MODERATE RISK >11.0 HIGH RISK Performed By: #### A 1C #### [facility] [address] [place] [address] Dr. Ellie Smith Cholesterol [Mass/Vol] 102 mg/dL Normal <=200 [facility] Comment on above: Performed By: #### A 1C #### [facility] [address] [place] [address] Dr. Ellie Smith Cholesterol in HDL [Mass/Vol] 56 mg/dL Normal 40-60 [facility] Comment on above: Performed By: #### A 1C #### [facility] [address] [address] [address] Ellie Smith Cholesterol in LDL [Mass/Vol] 36.8 mg/dL Normal [facility] Comment on above: Performed By: #### A 1C #### [facility] [address] [place] [address] Dr. Ellie Smith Cholesterol.total/Chol esterol in HDL [Mass ratio] 1.8 {ratio} Normal [facility] Comment on above: Performed By: #### A 1C #### [facility] [address] [place] [address] Dr. Ellie Smith HDL NORMAL > or = 60 mg/dl - LO W CARDIOVASCULAR RISK <40 mg/dl - HIGH CARDIOVASCULAR RISK Normal [facility] Comment on above: Performed By: #### A 1C #### [facility] [address] [place] [address] Dr. Ellie Smith LDL CALC NORMAL SEE BELOW Normal [facility] Comment on above: Result Comment: <100 mg/dl OPTIMAL 100 - 129 mg/dl NEAR OR ABOVE OPTIMAL 130 - 159 mg/dl BORDERLINE HIGH 160 - 189 mg/dl HIGH >190 mg/dl VERY HIGH Performed By: #### A 1C #### [facility] [address] [place] [address] Dr. Ellie Smith Triglyceride [Mass/Vol] 46 mg/dL Normal <=150 [facility] Comment on above: Performed By: #### A 1C #### [facility] [address] [place] [address] Dr. Ellie Smith VLDL CALC 9.2 mg/dL Normal [facility] Comment on above: Performed By: #### A 1C #### [facility] [address] [place] [address] Dr. Ellie Smith SGOTon 03-29-2022 AST [Catalytic activity/Vol] 17 U/L Normal 15-37 [facility] Comment on above: Performed By: #### A 1C #### [facility] [address] [address] [address] Ellie Smith SGPTon 03-29-2022 ALT [Catalytic activity/Vol] 30 U/L Normal 14-59 [facility] Comment on above: Performed By: #### A 1C #### [facility] [address] [address] [address] Ellie Smith Office Visit (Cardiology)on 03-17-2022 Follow-up visit Diagnoses/Problems Assessed Dyspnea (786.09) (R06.00) Resolved off of [place] Coronary artery disease involving [place] coronary artery of [place] heart without angina pectoris (414.01) (I25.10) Jan 2022 ACS admit [facility]: managed Dr. Hooks Jan 18, 2022: dCX PCI/[place] 2.5/34mm, 2.75/8mm mRCA PCI/[place] 3.0/12 AND [...] Status:Complete; Done: 17Mar2022 Coronary artery disease involving [place] coronary artery of [place] heart without angina pectoris, Echocardiogram abnormal Disability [...] FOR CHES (more content not included)... Normal [facility] Tobacco Screening.on 022 Adult depression screening assessment No [facility] 600 DO Work Phone: Fall risk assessment a) No falls within the last year [facility] agreement[facility] [id number] 600 DO Work Phone: Tobacco use status [facility] b) No [facility] agreement[facility] [id number] 600 DO Work Phone: PHQ-2 VITALSon 02-15-2022 Adult depression screening assessment Yes [facility] [employer] 250 DO Work Phone: Adult depression screening assessment No [facility] [employer] 250 DO Work Phone: Fall risk assessment a) No falls within the last year [facility] [employer] 250 DO Work Phone: Tobacco use status CPHS b) No [facility] [employer] 250 DO Work Phone: PHQ-2 VITALS 0-Not at all [facility] [employer] 250 DO Work Phone: PHQ-2 VITALS 3-Nearly every day [facility] Heart-Sandu jayne 250 DO Work Phone: PHQ-2 VITALS 1-Several days [facility] Heart-truedashu jayne 250 DO Work Phone: PHQ-2 VITALS Very Difficult [facility] Heart-truedashu jayne 250 DO Work Phone: Activated partial thrombopla stin time (aPTT) in platelet poor plasma by coagulation aOrdered By: Diony Hooks on 02-03-2022 aPTT Coag (PPP) [Time] 31.4 s 25.1-36.5 [facility] Basophils Auto (Bld) [#/Vol] Ordered By: Diony Hooks on 02-03-2022 Basophils (Bld) [#/Vol] 0.1 10*3/uL 0.0-0.2 [facility] Basophils/100 WBC Auto (Bld) Ordered By: Diony Hooks on 02-03-2022 Basophils/100 WBC (Bld) 0.6 % . [facility] Blood hemoglobin measurement (mass/volume)Ordered By: Diony Hooks on 02-03-2022 Hemoglobin (Bld) [Mass/Vol] 14.3 g/dL 11.8-15.4 [facility] Blood leukocytes automated c ount (number/volume)Ordered By: Diony Hooks on 02-03-2022 WBC (Bld) [#/Vol] 12.0 10*3/uL 4.5-11.0 [facility] Eosinophils Auto (Bld) [#/Vo l]Ordered By: Diony Hooks on 02-03-2022 Eosinophils (Bld) [#/Vol] 0.4 10*3/uL 0.0-0.45 [facility] Eosinophils/100 WBC Auto (Bl d)Ordered By: Diony Hooks on 02-03-2022 Eosinophils/100 WBC (Bld) 3.4 % . [facility] Erythrocyte distribution wid th Auto (RBC) [Ratio]Ordered By: Diony Hooks on 02-03-2022 Erythrocyte distribution width (RBC) [Ratio] 14.4 % 11.9-15.3 [facility] Hematocrit Auto (Bld) [Volum e fraction]Ordered By: Diony Hooks on 02-03-2022 Hematocrit (Bld) [Volume fraction] 42.4 % 34.0-46.4 [facility] - CoagulationOrde red By: Diony Hooks on 02-03-2022 PT Coag (PPP) [Time] 10.9 s 9.0-12.9 [facility] - Hematology and Cell countsOrdered By: Diony Hooks on 02-03-2022 Nucleated RBC/100 WBC (Bld) [Ratio] 0.0 % 0-0.5 [facility] Lymphocytes Auto (Bld) [#/Vo l]Ordered By: Diony Hooks on 02-03-2022 Lymphocytes (Bld) [#/Vol] 2.1 10*3/uL 1.00-4.8 [facility] Lymphocytes/100 WBC Auto (Bl d)Ordered By: Diony Hooks on 02-03-2022 Lymphocytes/100 WBC (Bld) 17.5 % . [facility] MCH Auto (RBC) [Entitic mass ]Ordered By: Diony Hooks on 02-03-2022 MCH (RBC) [Entitic mass] 31.5 pg 24.7-34.3 [facility] MCHC Auto (RBC) [Mass/Vol]Or dered By: Diony Hooks on 02-03-2022 MCHC (RBC) [Mass/Vol] 33.8 g/dL 32.0-35.0 [facility] MCV Auto (RBC) [Entitic vol] Ordered By: Diony Hooks on 02-03-2022 MCV (RBC) [Entitic vol] 93.2 fL 80-100 [facility] Monocytes Auto (Bld) [#/Vol] Ordered By: Diony Hooks on 02-03-2022 Monocytes (Bld) [#/Vol] 0.5 10*3/uL 0.0-0.8 [facility] Monocytes/100 WBC Auto (Bld) Ordered By: Diony Hooks on 02-03-2022 Monocytes/100 WBC (Bld) 4.4 % . [facility] Neutrophils Auto (Bld) [#/Vo l]Ordered By: Diony Hooks on 02-03-2022 Neutrophils (Bld) [#/Vol] 8.9 10*3/uL 1.8-7.7 [facility] Neutrophils/100 WBC Auto (Bl d)Ordered By: Diony Hooks on 02-03-2022 Neutrophils/100 WBC (Bld) 74.1 % . [facility] Platelet mean volume Auto (B ld) [Entitic vol]Ordered By: Diony Hooks on 02-03-2022 Platelet mean volume (Bld) [Entitic vol] 7.5 fL 6.3-10.7 [facility] Platelet poor plasma interna tional normalized ratio (INR) by coagulation assay (relatOrdered By: Diony Hooks on 02-03-2022 INR Coag (PPP) [Relative time] 1.0 {INR} [facility] Comment on above: INR Therapeutic Rang [...] 02-03-2022 Platelets (Bld) [#/Vol] 337 10*3/uL 150-450 [facility] RBC Auto (Bld) [#/Vol]Ordere d By: Diony Hooks on 02-03-2022 RBC (Bld) [#/Vol] 4.56 10*6/uL 3.60-5.00 [facility] COVID-19 SOFIAOrdered By: St anup Hooks on 02-01-2022 SARS-CoV+SARS-CoV-2 (COVID-19) Ag IA.rapid Ql (Resp) Negative Negative [facility] Comment on above: This is a duplicate [facility] SARS Antigen (JERRY) result to be used for statistical tracking purpose only. Creatinine and Glomerular fi ltration rate.predicted panel (S/P/Bld)Ordered By: Diony Hooks on 02-01-2022 Creatinine [Mass/Vol] 0.85 mg/dL 0.44-1.03 [facility] Estimated glomerular filtrat ion rate (GFR) non- AmericanOrdered By: Diony Hooks on 02-01-2022 GFR/1.73 sq M.predicted among non-blacks MDRD (S/P/Bld) [Vol rate/Area] > 60 mL/Min [facility] No Panel InformationOrdered By: Diony Hooks on 02-01-2022 Estimated GFR () > 60 mL/Min [facility] Comment on above: GFR estimated refere nce range: According to KDOQI guidelines, <60 ml/min/1.73m2 is sufficient to diagnose a patient with chronic kidney disease. Pharmacy Creatinine Clearance (Chem N/A [facility] SARS Antigen (LFIA) [facility] Serum or plasma calcium norma urement (mass/volume)Ordered By: Diony Hooks on 02-01-2022 Calcium [Mass/Vol] 9.7 mg/dL 8.2-10.2 [facility] Serum or plasma chloride tam surement (moles/volume)Ordered By: Diony Hooks on 02-01-2022 Chloride [Moles/Vol] 97 mmol/L 95-114 [facility] Serum or plasma glucose norma urement (mass/volume)Ordered By: Diony Hooks on 02-01-2022 Glucose [Mass/Vol] 86 mg/dL 70-100 [facility] Comment on above: ADA recommended refe rence range Random Glucose Reference Range is dependent on time and content of last meal. Glucose of more than 200 mg/dL in a nonstressed, ambulatory subject supports the diagnosis of Diabetes Mellitus. Serum or plasma potassium me asurement (moles/volume)Ordered By: Diony Hooks on 02-01-2022 Potassium [Moles/Vol] 4.7 mmol/L 3.5-5.1 [facility] Serum or plasma sodium measu rement (moles/volume)Ordered By: Diony Hooks on 02-01-2022 Sodium [Moles/Vol] 132 mmol/L 136-146 [facility] Serum or plasma total carbon dioxide measurement (moles/volume)Ordered By: Diony Hooks on 02-01-2022 CO2 [Moles/Vol] 26.0 mmol/L 22.0-30.0 [facility] Serum or plasma urea nitroge n measurement (mass/volume)Ordered By: Diony Hooks on 02-01-2022 Urea nitrogen [Mass/Vol] 10 mg/dL 03-04 [facility] BNPon 01-28-2022 Natriuretic peptide B (Bld) [Mass/Vol] 945.0 pg/mL Normal <=1,800.0 [facility] Comment on above: Performed By: #### R EVRT3 #### [facility] [address] [place] [address] Dr. Ellie Smith CARDIAC RAQUEL ADMITon 022 CK [Catalytic activity/Vol] 122 U/L Normal 26-192 [facility] Comment on above: Performed By: #### R EVRT3 #### [facility] [address] [place] [address] Dr. Ellie Smith CK.MB [Mass/Vol] 0.65 ng/mL Normal <=3.60 [facility] Comment on above: Performed By: #### R EVRT3 #### [facility] [address] [address] [address] Ellie Smith HSTROP 63.5 pg/mL Critically high 4.0-51.3 [facility] Comment on above: Result Comment: CUT- OFF POINTS HAVE BEEN ESTABLISHED BASED ON THE FOURTH UNIVERSAL DEFINITIONS OF MYOCARDIAL INFARCTION. THE UPPER REFERENCE LIMIT (URL) OF TROPONIN, DEFINED THE 99TH PERCENTILE OF cTnI DISTRIBUTION IN A REFERENCE POPULATION, HAS BEEN CONFIRMED THE DECISION THRESHOLD FOR ND DIAGNOSIS. Performed By: #### R EVRT3 #### [facility] [address] [place] [address] Dr. Ellie Smith MATEO 26 ng/mL Normal 9-82 [facility] Comment on above: Performed By: #### R EVRT3 #### [facility] [address] [place] [address] Dr. Ellie Smith CBC AUTO DIFFon 01-28-2022 BASO # 0.1 103/ul Normal 0.0-0.1 [facility] Comment on above: Performed By: #### L ACT #### [facility] [address] [address] [address] Ellie Smith Basophils/100 WBC (Bld) 0.6 % Normal 0.2-2.0 [facility] Comment on above: Performed By: #### L ACT #### [facility] [address] [place] [address] Dr. Ellie Smith EO # 0.4 103/ul Normal 0.0-0.7 [facility] Comment on above: Performed By: #### L ACT #### [facility] [address] [place] [address] Dr. Ellie Smith Eosinophils/100 WBC (Bld) 4.4 % Normal 0.9-7.0 [facility] Comment on above: Performed By: #### L ACT #### [facility] [address] [place] [address] Dr. Ellie Smith Erythrocyte distribution width (RBC) [Ratio] 13.7 % Normal 11.0-15.0 [facility] Comment on above: Performed By: #### L ACT #### [facility] [address] [place] [address] Dr. Ellie Smith Hematocrit (Bld) [Volume fraction] 35.8 % Critically low 36.0-48.0 [facility] Comment on above: Performed By: #### L ACT #### [facility] [address] [place] [address] Dr. Ellie Smith Hemoglobin (Bld) [Mass/Vol] 11.9 g/dL Critically low 12.0-16.0 [facility] Comment on above: Performed By: #### L ACT #### [facility] [address] [place] [address] Dr. Ellie Smith IG # 0.03 10e3/ul Normal 0.00-0.03 [facility] Comment on above: Performed By: #### L ACT #### [facility] [address] [place] [address] Dr. Ellie Smith IG % 0.4 % Normal 0.0-0.5 [facility] Comment on above: Performed By: #### L ACT #### [facility] [address] [place] [address] Dr. Ellie Smith LYMPH # 1.7 103/ul Normal 1.2-3.8 [facility] Comment on above: Performed By: #### L ACT #### [facility] [address] [place] [address] Dr. Ellie Smith Lymphocytes/100 WBC (Bld) 19.6 % Critically low 20.5-60.0 [facility] Comment on above: Performed By: #### L ACT #### [facility] [address] [place] [address] Dr. Ellie Smith MANUAL DIFF REQ NO Normal [facility] Comment on above: Performed By: #### L ACT #### [facility] [address] [place] [address] Dr. Ellie Smith MCH (RBC) [Entitic mass] 31.4 pg Normal 26.7-34.0 [facility] Comment on above: Performed By: #### L ACT #### [facility] [address] [place] [address] Dr. Ellie Smith MCHC (RBC) [Mass/Vol] 33.2 g/dL Normal 29.9-35.2 [facility] Comment on above: Performed By: #### L ACT #### [facility] [address] [place] [address] Dr. Ellie Smith MCV (RBC) [Entitic vol] 94.5 fL Normal 81.0-99.0 [facility] Comment on above: Performed By: #### L ACT #### [facility] [address] [place] [address] Dr. Ellie Smith MONO # 0.5 103/ul Normal 0.3-0.8 [facility] Comment on above: Performed By: #### L ACT #### [facility] [address] [place] [address] Dr. Ellie Smith Monocytes/100 WBC (Bld) 5.4 % Normal 1.7-12.0 [facility] Comment on above: Performed By: #### L ACT #### [facility] [address] [place] [address] Dr. Ellie Smith NEUT # 6.0 103/ul Normal 1.4-6.5 [facility] Comment on above: Performed By: #### L ACT #### [facility] [address] [address] [address] Ellie Smith Neutrophils/100 WBC (Bld) 69.6 % Normal 43.0-75.0 [facility] Comment on above: Performed By: #### L ACT #### [facility] [address] [address] [address] Ellie Smith Platelet mean volume (Bld) [Entitic vol] 9.5 fL Normal 9.5-13.5 [facility] Comment on above: Performed By: #### L ACT #### [facility] [address] [address] [address] Ellie Smith PLT 252 103/ul Normal 150-450 [facility] Comment on above: Performed By: #### L ACT #### [facility] [address] [address] [address] Ellie Smith RBC 3.79 106/ul Critically low 4.20-5.40 [facility] Rehabilitation Comment on above: Performed By: #### L ACT #### [facility] [address] [address] [address] Ellie Smith WBC 8.6 103/ul Normal 4.0-11.0 [facility] Comment on above: Performed By: #### L ACT #### [facility] [address] [place] [address] Dr. Ellie Smith POINT OF CARE GLUCOSEon 01-10 Glucose [Mass/Vol] 93 mg/dL Normal 74-106 [facility] Comment on above: Performed By: #### A 1C #### [facility] [address] [place] [address] Dr. Ellie Smith PROF 14(COMP METB)on 022 Albumin [Mass/Vol] 3.2 g/dL Critically low 3.4-5.0 [facility] Comment on above: Performed By: #### R EVRT3 #### [facility] [address] [place] [address] Dr. Ellie Smith Albumin/Globulin [Mass ratio] 1.1 {ratio} Normal [facility] Comment on above: Performed By: #### R EVRT3 #### [facility] [address] [address] [address] Ellie Smith ALP [Catalytic activity/Vol] 52 U/L Normal 46-116 [facility] Comment on above: Performed By: #### R EVRT3 #### [facility] [address] [address] [address] Ellie Smith ALT [Catalytic activity/Vol] 52 U/L Normal 14-59 [facility] Comment on above: Performed By: #### R EVRT3 #### [facility] [address] [place] [address] Dr. Ellie Smith Anion gap [Moles/Vol] 9.7 mmol/L Normal [facility] Comment on above: Performed By: #### R EVRT3 #### [facility] [address] [place] [address] Dr. Ellie Smith AST [Catalytic activity/Vol] 22 U/L Normal 15-37 [facility] Comment on above: Performed By: #### R EVRT3 #### [facility] [address] [address] [address] Ellie Smith Bilirubin [Mass/Vol] 0.3 mg/dL Normal 0.2-1.0 [facility] Comment on above: Performed By: #### R EVRT3 #### [facility] [address] [address] [address] Ellie Smith Calcium [Mass/Vol] 8.4 mg/dL Critically low 8.5-10.1 [facility] Comment on above: Performed By: #### R EVRT3 #### [facility] [address] [address] [address] Ellie Smith Chloride [Moles/Vol] 104 mmol/L Normal 98-107 [facility] Comment on above: Performed By: #### R EVRT3 #### [facility] [address] [address] [address] Ellie Smith CO2 [Moles/Vol] 25.5 mmol/L Normal 21.0-32.0 [facility] Comment on above: Performed By: #### R EVRT3 #### [facility] [address] [address] [address] Ellie Smith Creatinine [Mass/Vol] 0.71 mg/dL Normal 0.55-1.02 [facility] Comment on above: Performed By: #### R EVRT3 #### [facility] [address] [address] [address] Ellie Smith EGFR-AF TURKMEN >60 Normal >=60 [facility] Comment on above: Performed By: #### R EVRT3 #### [facility] [address] [address] [address] Ellie Smith EGFR-NON AF TURKMEN >60 Normal >=60 [facility] Comment on above: Performed By: #### R EVRT3 #### [facility] [address] [place] [address] Dr. Ellie Smith Globulin (S) [Mass/Vol] 2.9 g/dL Normal [facility] Comment on above: Performed By: #### R EVRT3 #### [facility] [address] [address] [address] Ellie Smith Glucose [Mass/Vol] 102 mg/dL Normal 74-106 [facility] Comment on above: Performed By: #### R EVRT3 #### [facility] [address] [place] [address] Dr. Ellie Smith Potassium [Moles/Vol] 4.2 mmol/L Normal 3.5-5.1 [facility] Comment on above: Performed By: #### R EVRT3 #### [facility] [address] [place] [address] Dr. Ellie Smith Protein [Mass/Vol] 6.1 g/dL Critically low 6.4-8.2 Th [facility] Comment on above: Performed By: #### R EVRT3 #### [facility] [address] [place] [address] Dr. Ellie Smith Sodium [Moles/Vol] 135 mmol/L Critically low 136-145 Th [facility] Comment on above: Performed By: #### R EVRT3 #### [facility] [address] [place] [address] Dr. Ellie Smith Urea nitrogen [Mass/Vol] 11.0 mg/dL Normal 7.0-18.0 [facility] Comment on above: Performed By: #### R EVRT3 #### [facility] [address] [place] [address] Dr. Ellie Smith Urea nitrogen/Creatinine [Mass ratio] 15.5 mg/mg Normal [facility] Comment on above: Performed By: #### R EVRT3 #### [facility] [address] [place] [address] Dr. Ellie Smith CARDIAC RAQUEL 3-6on 2 CK [Catalytic activity/Vol] 192 U/L Normal 26-192 [facility] Comment on above: Performed By: #### L ACT #### [facility] [address] [place] [address] Dr. Ellie Smith CK.MB [Mass/Vol] 0.70 ng/mL Normal <=3.60 [facility] Comment on above: Performed By: #### L ACT #### [facility] [address] [place] [address] Dr. Ellie Smith HSTROP 88.8 pg/mL Critically high 4.0-51.3 [facility] Comment on above: Result Comment: CUT- OFF POINTS HAVE BEEN ESTABLISHED BASED ON THE FOURTH UNIVERSAL DEFINITIONS OF MYOCARDIAL INFARCTION. THE UPPER REFERENCE LIMIT (URL) OF TROPONIN, DEFINED THE 99TH PERCENTILE OF cTnI DISTRIBUTION IN A REFERENCE POPULATION, HAS BEEN CONFIRMED THE DECISION THRESHOLD FOR ND DIAGNOSIS. Performed By: #### L ACT #### [facility] [address] [place] [address] Dr. Ellie Smith CK [Catalytic activity/Vol] 213 U/L Critically high 26-192 [facility] Comment on above: Performed By: #### P OCGLUC #### [facility] [address] [place] [address] Dr. Ellie Smith CK.MB [Mass/Vol] 0.90 ng/mL Normal <=3.60 [facility] Comment on above: Performed By: #### P OCGLUC #### [facility] [address] [address] [address] Ellie Smith HSTROP 108.1 pg/mL Critically high 4.0-51.3 [facility] Comment on above: Result Comment: CUT- OFF POINTS HAVE BEEN ESTABLISHED BASED ON THE FOURTH UNIVERSAL DEFINITIONS OF MYOCARDIAL INFARCTION. THE UPPER REFERENCE LIMIT (URL) OF TROPONIN, DEFINED THE 99TH PERCENTILE OF cTnI DISTRIBUTION IN A REFERENCE POPULATION, HAS BEEN CONFIRMED THE DECISION THRESHOLD FOR ND DIAGNOSIS. repeated Performed By: #### P OCGLUC #### [facility] [address] [place] [address] Dr. Ellie Smith CBC AUTO DIFFon 01-27-2022 BASO # 0.1 103/ul Normal 0.0-0.1 [facility] Comment on above: Performed By: #### P OCGLUC #### [facility] [address] [address] [address] Ellie Smith Basophils/100 WBC (Bld) 0.5 % Normal 0.2-2.0 [facility] Comment on above: Performed By: #### P OCGLUC #### [facility] [address] [address] [address] Ellie Smith EO # 0.4 103/ul Normal 0.0-0.7 [facility] Comment on above: Performed By: #### P OCGLUC #### [facility] [address] [address] [address] Ellie Smith Eosinophils/100 WBC (Bld) 3.2 % Normal 0.9-7.0 [facility] Comment on above: Performed By: #### P OCGLUC #### [facility] [address] [place] [address] Dr. Ellie Smith Erythrocyte distribution width (RBC) [Ratio] 13.7 % Normal 11.0-15.0 [facility] Comment on above: Performed By: #### P OCGLUC #### [facility] [address] [place] [address] Dr. Ellie Smith Hematocrit (Bld) [Volume fraction] 40.5 % Normal 36.0-48.0 [facility] Comment on above: Performed By: #### P OCGLUC #### [facility] [address] [address] [address] Ellie Smith Hemoglobin (Bld) [Mass/Vol] 13.4 g/dL Normal 12.0-16.0 [facility] Comment on above: Performed By: #### P OCGLUC #### [facility] [address] [address] [address] Ellie Smith IG # 0.04 10e3/ul Critically high 0.00-0.03 [facility] Comment on above: Performed By: #### P OCGLUC #### [facility] [address] [place] [address] Dr. Ellie Smith IG % 0.3 % Normal 0.0-0.5 [facility] Comment on above: Performed By: #### P OCGLUC #### [facility] [address] [address] [address] Ellie Smith LYMPH # 2.4 103/ul Normal 1.2-3.8 [facility] Comment on above: Performed By: #### P OCGLUC #### [facility] [address] [place] [address] Dr. Ellie Smith Lymphocytes/100 WBC (Bld) 18.6 % Critically low 20.5-60.0 [facility] Comment on above: Performed By: #### P OCGLUC #### [facility] [address] [place] [address] Dr. Ellie Smith MANUAL DIFF REQ NO Normal [facility] Comment on above: Performed By: #### P OCGLUC #### [facility] [address] [place] [address] Dr. Ellie Smith MCH (RBC) [Entitic mass] 31.0 pg Normal 26.7-34.0 [facility] Comment on above: Performed By: #### P OCGLUC #### [facility] [address] [place] [address] Dr. Ellie Smith MCHC (RBC) [Mass/Vol] 33.1 g/dL Normal 29.9-35.2 [facility] Comment on above: Performed By: #### P OCGLUC #### [facility] [address] [address] [address] Ellie Smith MCV (RBC) [Entitic vol] 93.8 fL Normal 81.0-99.0 [facility] Comment on above: Performed By: #### P OCGLUC #### [facility] [address] [address] [address] Ellie Smith MONO # 0.7 103/ul Normal 0.3-0.8 [facility] Comment on above: Performed By: #### P OCGLUC #### [facility] [address] [address] [address] Ellie Smith Monocytes/100 WBC (Bld) 5.5 % Normal 1.7-12.0 [facility] Comment on above: Performed By: #### P OCGLUC #### [facility] [address] [place] [address] Dr. Ellie Smith NEUT # 9.1 103/ul Critically high 1.4-6.5 [facility] Comment on above: Performed By: #### P OCGLUC #### [facility] [address] [place] [address] Dr. Ellie Smith Neutrophils/100 WBC (Bld) 71.9 % Normal 43.0-75.0 [facility] Comment on above: Performed By: #### P OCGLUC #### [facility] [address] [place] [address] Dr. Ellie Smith Platelet mean volume (Bld) [Entitic vol] 9.6 fL Normal 9.5-13.5 [facility] Comment on above: Performed By: #### P OCGLUC #### [facility] [address] [place] [address] Dr. Ellie Smith PLT 307 103/ul Normal 150-450 [facility] Comment on above: Performed By: #### P OCGLUC #### [facility] [address] [place] [address] Dr. Ellie Smith RBC 4.32 106/ul Normal 4.20-5.40 [facility] Comment on above: Performed By: #### P OCGLUC #### [facility] [address] [place], [place] [address] Dr. Ellie Smith WBC 12.6 103/ul Critically high 4.0-11.0 [facility] Comment on above: Performed By: #### P OCGLUC #### [facility] [address] [place], [place] [address] ABD/PELVIS WO CONon [...] [place]ONA [place] Date: 2022-01-27 02:44 Normal [facility] CTA CHEST WO W CONon [...] [place] Date: 2022-01-27 03:46 Normal [facility] Covid-19 PCR ([facility]on 01-10 SARS-CoV-2 (COVID-19) RNA MEI+probe Ql (Unsp spec) Not detected Normal NOT DETECTED [facility] Comment on above: Result Comment: When [...] for this test is supported by the [employer] and Human Service's declaration that [...] used). Performed By: #### R EVRT3 #### [facility] [address] [place] [address] Dr. Ellie Smith D-DIMERon 01-27-2022 D-DIMER 0.71 mg/L FEU Critically high <=0.59 [facility] Comment on above: Performed By: #### L ACT #### [facility] [address] [place] [address] Dr. Ellie Smith D-DIMER COMMENTS SEE BELOW Normal [facility] Comment on above: Result Comment: Incr eases [...] hospitalization. Performed By: #### L ACT #### [facility] [address] [place] [address] Dr. Ellie Smith ER URINE PROFILEon 2 Bilirubin Ql (U) Negative Normal NEGATIVE [facility] Comment on above: Performed By: #### P OCGLUC #### [facility] [address] [place] [address] Dr. Ellie Smith Clarity (U) CLEAR Normal CLEAR [facility] Comment on above: Performed By: #### P OCGLUC #### [facility] [address] [place] [address] Dr. Ellie Smith Color (U) LT. YELLOW Normal YELLOW [facility] Comment on above: Performed By: #### P OCGLUC #### [facility] [address] [place] [address] Dr. Ellie Smith ERUAHD A micrscopic examina tion will be performed if indicated. Normal [facility] Comment on above: Performed By: #### P OCGLUC #### [facility] [address] [address] [address] Ellie Smith Glucose Ql (U) Negative Normal NEGATIVE [facility] Comment on above: Performed By: #### P OCGLUC #### [facility] [address] [address] [address] Ellie Smith Hemoglobin Ql (U) Negative Normal NEGATIVE [facility] Comment on above: Performed By: #### P OCGLUC #### [facility] [address] [address] [address] Ellie Smith Ketones Ql (U) Negative Normal NEGATIVE [facility] Comment on above: Performed By: #### P OCGLUC #### [facility] [address] [place] [address] Dr. Ellie Smith LEUKOCYTES Negative Normal NEGATIVE [facility] Comment on above: Performed By: #### P OCGLUC #### [facility] [address] [address] [address] Ellie Smith Nitrite Ql (U) Negative Normal NEGATIVE [facility] Comment on above: Performed By: #### P OCGLUC #### [facility] [address] [place] [address] Dr. Ellie Smith pH (U) 6.0 [pH] Normal 5-9 [facility] Comment on above: Performed By: #### P OCGLUC #### [facility] [address] [place] [address] Dr. Ellie Smith SPEC GRAVITY 1.010 Normal 1.005-<=1. 025 [facility] Comment on above: Performed By: #### P OCGLUC #### [facility] [address] [address] [address] Ellie Smith UA PROTEIN Negative Normal NEGATIVE/ TRACE [facility] Comment on above: Performed By: #### P OCGLUC #### [facility] [address] [place] [address] Dr. Ellie Smith UR MICRO IND NOT INDICATED Normal [facility] Comment on above: Performed By: #### P OCGLUC #### [facility] [address] [address] [address] Ellie Smith Urobilinogen Qn (U) 0.2 {Tamia'U}/dL Normal 0.2 - 1. 0 [facility] Comment on above: Performed By: #### P OCGLUC #### [facility] [address] [address] [address] Ellie Smith LACTATE/LACTIC ACIDon 2021 Lactate [Moles/Vol] 1.8 mmol/L Normal 0.4-1.9 [facility] Comment on above: Performed By: #### L ACT #### [facility] [address] [address] [address] Ellie Smith POINT OF CARE GLUCOSEon 01-10 Glucose [Mass/Vol] 132 mg/dL Critically high 74-106 [facility] Comment on above: Performed By: #### L ACT #### [facility] [address] [address] [address] Ellie Smith Glucose [Mass/Vol] 99 mg/dL Normal 74-106 [facility] Comment on above: Performed By: #### L ACT #### [facility] [address] [address] [address] Ellie Smith Glucose [Mass/Vol] 117 mg/dL Critically high 74-106 [facility] Comment on above: Performed By: #### P OCGLUC #### [facility] [address] [place] [address] Dr. Ellie Smith Glucose [Mass/Vol] 105 mg/dL Normal 74-106 [facility] Comment on above: Performed By: #### L ACT #### [facility] [address] [place] [address] Dr. Ellie Smith PROF 14(COMP METB)on 022 Albumin [Mass/Vol] 3.6 g/dL Normal 3.4-5.0 [facility] Comment on above: Performed By: #### C MP #### [facility] [address] [place] [address] Dr. Ellie Smith Albumin/Globulin [Mass ratio] 1.1 {ratio} Normal [facility] Comment on above: Performed By: #### C MP #### [facility] [address] [address] [address] Ellie Smith ALP [Catalytic activity/Vol] 61 U/L Normal 46-116 [facility] Comment on above: Performed By: #### C MP #### [facility] [address] [address] [address] Ellie Smith ALT [Catalytic activity/Vol] 53 U/L Normal 14-59 [facility] Comment on above: Performed By: #### C MP #### [facility] [address] [address] [address] Ellie Smith Anion gap [Moles/Vol] 14.7 mmol/L Normal [facility] Comment on above: Performed By: #### C MP #### [facility] [address] [place] [address] Dr. Ellie mSith AST [Catalytic activity/Vol] 43 U/L Critically high 15-37 [facility] Comment on above: Performed By: #### C MP #### [facility] [address] [place] [address] Dr. Ellie Smith Bilirubin [Mass/Vol] 0.4 mg/dL Normal 0.2-1.0 [facility] Comment on above: Performed By: #### C MP #### [facility] [address] [place] [address] Dr. Ellie Smith Calcium [Mass/Vol] 8.6 mg/dL Normal 8.5-10.1 [facility] Comment on above: Performed By: #### C MP #### [facility] [address] [place] [address] Dr. Ellie Smith Chloride [Moles/Vol] 99 mmol/L Normal 98-107 [facility] Comment on above: Performed By: #### C MP #### [facility] [address] [place] [address] Dr. Ellie Smith CO2 [Moles/Vol] 22.4 mmol/L Normal 21.0-32.0 [facility] Comment on above: Performed By: #### C MP #### [facility] [address] [address] [address] Ellie Smith Creatinine [Mass/Vol] 0.90 mg/dL Normal 0.55-1.02 [facility] Comment on above: Performed By: #### C MP #### [facility] [address] [address] [address] Ellie Smith EGFR-AF TURKMEN >60 Normal >=60 [facility] Comment on above: Performed By: #### C MP #### [facility] [address] [address] [address] Ellie Smith EGFR-NON AF TURKMEN 60 mL/min/1.73m2 Normal >=60 [facility] Comment on above: Performed By: #### C MP #### [facility] [address] [place] [address] Dr. Ellie Smith Globulin (S) [Mass/Vol] 3.3 g/dL Normal [facility] Comment on above: Performed By: #### C MP #### [facility] [address] [place] [address] Dr. Ellie Smith Glucose [Mass/Vol] 108 mg/dL Critically high 74-106 [facility] Comment on above: Performed By: #### C MP #### [facility] [address] [place] [address] Dr. Ellie Smith Potassium [Moles/Vol] 4.1 mmol/L Normal 3.5-5.1 [facility] Comment on above: Performed By: #### C MP #### [facility] [address] [place] [address] Dr. Ellie Smith Protein [Mass/Vol] 6.9 g/dL Normal 6.4-8.2 [facility] Comment on above: Performed By: #### C MP #### [facility] [address] [place] [address] Dr. Ellie Smith Sodium [Moles/Vol] 132 mmol/L Critically low 136-145 [facility] Comment on above: Performed By: #### C MP #### [facility] [address] [place] [address] Dr. Ellie Smith Urea nitrogen [Mass/Vol] 15.0 mg/dL Normal 7.0-18.0 [facility] Comment on above: Performed By: #### C MP #### [facility] [address] [place] [address] Dr. Ellie Smith Urea nitrogen/Creatinine [Mass ratio] 16.7 mg/mg Normal [facility] Comment on above: Performed By: #### C MP #### [facility] [address] [place] [address] Dr. Ellie Smith PROTIMEon 01-27-2022 INR Coag (PPP) [Relative time] 1.00 {INR} Normal [facility] Comment on above: Performed By: #### P OCGLUC #### [facility] [address] [place] [address] Dr. Ellie Smith INR GUIDELINES SEE BELOW Normal [facility] Comment on above: Result Comment: HIMANSHU RED INR: 2.0 - 3.0 CONDITIONS NOT LISTED BELOW 2.5 - 3.5 FOR PROSTHETIC HEART VALVE REPLACEMENT 2.5 - 3.5 RECURRENT THROMBOSIS Performed By: #### P OCGLUC #### [facility] [address] [place] [address] Dr. Ellie Smith PT Coag (PPP) [Time] 10.8 s Normal 9.0-11.6 [facility] Comment on above: Performed By: #### P OCGLUC #### [facility] [address] [place] [address] Dr. Ellie Smith PTTon 01-27-2022 aPTT Coag (Bld) [Time] 28.6 s Normal 22.3-36.2 [facility] Comment on above: Performed By: #### L ACT #### [facility] [address] [place] [address] Dr. Ellie Smith TROPONIN, HIGH SENSITIVITYon 01-27-2022 HSTROP 116.4 pg/mL Critically high 4.0-51.3 [facility] Comment on above: Result Comment: CUT- OFF POINTS HAVE BEEN ESTABLISHED BASED ON THE FOURTH UNIVERSAL DEFINITIONS OF MYOCARDIAL INFARCTION. THE UPPER REFERENCE LIMIT (URL) OF TROPONIN, DEFINED THE 99TH PERCENTILE OF cTnI DISTRIBUTION IN A REFERENCE POPULATION, HAS BEEN CONFIRMED THE DECISION THRESHOLD FOR ND DIAGNOSIS. Performed By: #### A 1C #### [facility] [address] [address] [address] Ellie Smith HSTROP 151.5 pg/mL Critically high 4.0-51.3 [facility] Comment on above: Result Comment: CUT- OFF POINTS HAVE BEEN ESTABLISHED BASED ON THE FOURTH UNIVERSAL DEFINITIONS OF MYOCARDIAL INFARCTION. THE UPPER REFERENCE LIMIT (URL) OF TROPONIN, DEFINED THE 99TH PERCENTILE OF cTnI DISTRIBUTION IN A REFERENCE POPULATION, HAS BEEN CONFIRMED THE DECISION THRESHOLD FOR ND DIAGNOSIS. Performed By: #### P OCGLUC #### [facility] [address] [place], [place] [address] Dr. Ellie Smith XR CHEST 1 Von [...] JONA ORLANDO Date: 2022-01-27 01:08 Normal [facility] Albumin [Mass/volume] in Ser um or PlasmaOrdered By: Diony Hooks on 01-21-2022 Albumin [Mass/Vol] 3.4 g/dL 3.2-5.5 [facility] Basophils Auto (Bld) [#/Vol] Ordered By: Diony Hooks on 01-21-2022 Basophils (Bld) [#/Vol] 0.0 10*3/uL 0.0-0.2 [facility] Basophils/100 WBC Auto (Bld) Ordered By: Diony Hooks on 01-21-2022 Basophils/100 WBC (Bld) 0.4 % . [facility] Blood hemoglobin measurement (mass/volume)Ordered By: Diony Hooks on 01-21-2022 Hemoglobin (Bld) [Mass/Vol] 13.3 g/dL 11.8-15.4 [facility] Blood leukocytes automated c ount (number/volume)Ordered By: Diony Hooks on 01-21-2022 WBC (Bld) [#/Vol] 8.5 10*3/uL 4.5-11.0 [facility] Creatinine and Glomerular fi ltration rate.predicted panel (S/P/Bld)Ordered By: Diony Hooks on 01-21-2022 Creatinine [Mass/Vol] 0.72 mg/dL 0.44-1.03 [facility] Eosinophils Auto (Bld) [#/Vo l]Ordered By: Diony Hooks on 01-21-2022 Eosinophils (Bld) [#/Vol] 0.4 10*3/uL 0.0-0.45 [facility] Eosinophils/100 WBC Auto (Bl d)Ordered By: Diony Hooks on 01-21-2022 Eosinophils/100 WBC (Bld) 4.2 % . [facility] Erythrocyte distribution wid th Auto (RBC) [Ratio]Ordered By: Diony Hooks on 01-21-2022 Erythrocyte distribution width (RBC) [Ratio] 14.4 % 11.9-15.3 [facility] Estimated glomerular filtrat ion rate (GFR) non- AmericanOrdered By: Diony Hooks on 01-21-2022 GFR/1.73 sq M.predicted among non-blacks MDRD (S/P/Bld) [Vol rate/Area] > 60 mL/Min [facility] Globulin Calc (S) [Mass/Vol] Ordered By: Diony Hooks on 01-21-2022 Globulin (S) [Mass/Vol] 2.4 g/dL [facility] Glucose Glucometer (BldC) [M ass/Vol]Ordered By: Wiley Beal on 01-21-2022 Glucose [Mass/Vol] 93 mg/dL [facility] Comment on above: Random Glucose Refer ence Range is dependent on time and content of last meal. Glucose of more than 200 mg/dL in a nonstressed, ambulatory subject supports the diagnosis of Diabetes Mellitus. Hematocrit Auto (Bld) [Volum e fraction]Ordered By: Diony Hooks on 01-21-2022 Hematocrit (Bld) [Volume fraction] 40.5 % 34.0-46.4 [facility] - Hematology and Cell countsOrdered By: Diony Hooks on 01-21-2022 Nucleated RBC/100 WBC (Bld) [Ratio] 0.0 % 0-0.5 [facility] Lymphocytes Auto (Bld) [#/Vo l]Ordered By: Diony Hooks on 01-21-2022 Lymphocytes (Bld) [#/Vol] 1.2 10*3/uL 1.00-4.8 [facility] Lymphocytes/100 WBC Auto (Bl d)Ordered By: Diony Hooks on 01-21-2022 Lymphocytes/100 WBC (Bld) 14.2 % . [facility] MCH Auto (RBC) [Entitic mass ]Ordered By: Diony Hooks on 01-21-2022 MCH (RBC) [Entitic mass] 30.7 pg 24.7-34.3 [facility] MCHC Auto (RBC) [Mass/Vol]Or dered By: Diony Hooks on 01-21-2022 MCHC (RBC) [Mass/Vol] 32.9 g/dL 32.0-35.0 [facility] MCV Auto (RBC) [Entitic vol] Ordered By: Diony Hooks on 01-21-2022 MCV (RBC) [Entitic vol] 93.1 fL 80-100 [facility] Monocytes Auto (Bld) [#/Vol] Ordered By: Diony Hooks on 01-21-2022 Monocytes (Bld) [#/Vol] 0.6 10*3/uL 0.0-0.8 [facility] Monocytes/100 WBC Auto (Bld) Ordered By: Diony Hooks on 01-21-2022 Monocytes/100 WBC (Bld) 6.7 % . [facility] Neutrophils Auto (Bld) [#/Vo l]Ordered By: Diony Hooks on 01-21-2022 Neutrophils (Bld) [#/Vol] 6.3 10*3/uL 1.8-7.7 [facility] Neutrophils/100 WBC Auto (Bl d)Ordered By: Diony Hooks on 01-21-2022 Neutrophils/100 WBC (Bld) 74.5 % . [facility] No Panel InformationOrdered By: Wiley Beal on 01-21-2022 Bedside Glucose Comment Glu2: cleaned meter [facility] No Panel InformationOrdered By: Diony Hooks on 01-21-2022 Estimated GFR () > 60 mL/Min [facility] Comment on above: GFR estimated refere nce range: According to KDOQI guidelines, <60 ml/min/1.73m2 is sufficient to diagnose a patient with chronic kidney disease. Pharmacy Creatinine Clearance (Chem 55.72 [facility] Platelet mean volume Auto (B ld) [Entitic vol]Ordered By: Diony Hooks on 01-21-2022 Platelet mean volume (Bld) [Entitic vol] 7.8 fL 6.3-10.7 [facility] Platelets Auto (Bld) [#/Vol] Ordered By: Diony Hooks on 01-21-2022 Platelets (Bld) [#/Vol] 235 10*3/uL 150-450 [facility] Protein [Mass/volume] in Ser um or PlasmaOrdered By: Diony Hooks on 01-21-2022 Protein [Mass/Vol] 5.8 g/dL 6.1-7.9 [facility] RBC Auto (Bld) [#/Vol]Ordere d By: Diony Hooks on 01-21-2022 RBC (Bld) [#/Vol] 4.35 10*6/uL 3.60-5.00 [facility] Serum or plasma alanine potter otransferase measurement without P-5'-P (enzymatic activiOrdered By: Diony Hooks on 01-21-2022 ALT No additional P-5'-P [Catalytic activity/Vol] 16 U/L 10-60 [facility] Serum or plasma albumin/glob ulin mass ratioOrdered By: Diony Hooks on 01-21-2022 Albumin/Globulin [Mass ratio] 1.4 {ratio} [facility] Serum or plasma alkaline inge sphatase measurement (enzymatic activity/volume)Ordered By: Diony Hooks on 01-21-2022 ALP [Catalytic activity/Vol] 43 U/L 32-92 [facility] Serum or plasma aspartate am inotransferase measurement (enzymatic activity/volume)Ordered By: Diony Hooks on 01-21-2022 AST [Catalytic activity/Vol] 25 U/L 10-42 [facility] Serum or plasma calcium norma urement (mass/volume)Ordered By: Diony Hooks on 01-21-2022 Calcium [Mass/Vol] 9.1 mg/dL 8.2-10.2 [facility] Serum or plasma chloride tam surement (moles/volume)Ordered By: Diony Hooks on 01-21-2022 Chloride [Moles/Vol] 104 mmol/L 95-114 [facility] Serum or plasma glucose norma urement (mass/volume)Ordered By: Diony Hooks on 01-21-2022 Glucose [Mass/Vol] 98 mg/dL 70-100 [facility] Comment on above: ADA recommended refe rence range Random Glucose Reference Range is dependent on time and content of last meal. Glucose of more than 200 mg/dL in a nonstressed, ambulatory subject supports the diagnosis of Diabetes Mellitus. Serum or plasma potassium me asurement (moles/volume)Ordered By: Diony Hooks on 01-21-2022 Potassium [Moles/Vol] 3.8 mmol/L 3.5-5.1 [facility] Serum or plasma sodium measu rement (moles/volume)Ordered By: Diony Hooks on 01-21-2022 Sodium [Moles/Vol] 135 mmol/L 136-146 [facility] Serum or plasma total biliru bin measurement (mass/volume)Ordered By: Diony Hooks on 01-21-2022 Bilirubin [Mass/Vol] 0.9 mg/dL 0.3-1.2 [facility] Serum or plasma total carbon dioxide measurement (moles/volume)Ordered By: Diony Hooks on 01-21-2022 CO2 [Moles/Vol] 23.4 mmol/L 22.0-30.0 [facility] Serum or plasma urea nitroge n measurement (mass/volume)Ordered By: Diony Hooks on 01-21-2022 Urea nitrogen [Mass/Vol] 9 mg/dL 03-04 [facility] Activated partial thrombopla stin time (aPTT) in platelet poor plasma by coagulation aOrdered By: Wiley Beal on 01-20-2022 aPTT Coag (PPP) [Time] 70.5 s 25.1-36.5 [facility] Cholesterol [Mass/volume] in Serum or PlasmaOrdered By: Justa Westfall on 01-19-2022 Cholesterol [Mass/Vol] 181 mg/dL 140-200 [facility] Comment on above: Chol less than 200 m g/dl low risk Chol 201-239 mg/dl borderline risk Chol 240 mg/dl and greater high risk Cholesterol in LDL Calc [Mas s/Vol]Ordered By: Justa Westfall on 01-19-2022 Cholesterol in LDL [Mass/Vol] 112 mg/dL 0-100 [facility] Comment on above: LDL ATP III CLASSIFI CATION LDL less than 100 mg/dL Optimal LDL 100-129 mg/dL Near or above optimal LDL 130-159 mg/dL Borderline high LDL 160-189 mg/dL High LDL greater than 189 mg/dL Very high Cholesterol in VLDL Calc [Ma ss/Vol]Ordered By: Justa Westfall on 01-19-2022 Cholesterol in VLDL [Mass/Vol] 22 mg/dL [facility] - Chemistry and C hemistry - challengeOrdered By: Justa Westfall on 01-19-2022 Magnesium [Mass/Vol] 1.4 mg/dL 1.6-2.6 [facility] - CoagulationOrde red By: Justa Westfall on 01-19-2022 PT Coag (PPP) [Time] 11.7 s 9.0-12.9 [facility] Platelet poor plasma interna tional normalized ratio (INR) by coagulation assay (relatOrdered By: Justa Westfall on 01-19-2022 INR Coag (PPP) [Relative time] 1.0 {INR} [facility] Comment on above: INR Therapeutic Rang [...] Cholesterol in HDL [Mass/Vol] 46 mg/dL 35-85 [facility] Comment on above: HDL CHOL ATP-III CLA SSIFICATION Cardiovascular Risk HDL > or equal to 60 mg/dL LOW HDL < 40 mg/dL HIGH Serum or plasma total choles terol/high density lipoprotein (HDL) cholesterol mass ratOrdered By: Justa Westfall on 01-19-2022 Cholesterol.total/Chol esterol in HDL [Mass ratio] 3.9 {ratio} <5.0 [facility] Triglyceride [Mass/volume] i n Serum or PlasmaOrdered By: Justa Westfall on 01-19-2022 Triglyceride [Mass/Vol] 113 mg/dL 35-149 [facility] Comment on above: TRIG ATP III [...] High sensitivity method [Mass/Vol] 3577 pg/mL 0-15 [facility] Comment on above: Results called at 0943 on 01/19/22 BNPon 01-18-2022 Natriuretic peptide B (Bld) [Mass/Vol] 1222.0 pg/mL Normal <=1,800.0 [facility] Comment on above: Performed By: #### A 1C #### [facility] [address] [place] [address] Dr. Ellie Smith CBC AUTO DIFFon 01-18-2022 BASO # 0.1 103/ul Normal 0.0-0.1 [facility] Comment on above: Performed By: #### R [id number] #### [facility] [address] [address] [address] Ellie Smith Basophils/100 WBC (Bld) 0.5 % Normal 0.2-2.0 [facility] Comment on above: Performed By: #### R [id number] #### [facility] [address] [place] [address] Dr. Ellie Smith EO # 0.2 103/ul Normal 0.0-0.7 [facility] Comment on above: Performed By: #### R [id number] #### [facility] [address] [place] [address] Dr. Ellie Smith Eosinophils/100 WBC (Bld) 2.4 % Normal 0.9-7.0 [facility] Comment on above: Performed By: #### R [id number] #### [facility] [address] [place] [address] Dr. Ellie Smith Erythrocyte distribution width (RBC) [Ratio] 14.1 % Normal 11.0-15.0 [facility] Comment on above: Performed By: #### R [id number] #### [facility] [address] [place] [address] Dr. Ellie Smith Hematocrit (Bld) [Volume fraction] 42.2 % Normal 36.0-48.0 [facility] Comment on above: Performed By: #### R [id number] #### [facility] [address] [place] [address] Dr. Ellie Smith Hemoglobin (Bld) [Mass/Vol] 13.9 g/dL Normal 12.0-16.0 [facility] Comment on above: Performed By: #### R [id number] #### [facility] [address] [place] [address] Dr. Ellie Smith IG # 0.02 10e3/ul Normal 0.00-0.03 [facility] Comment on above: Performed By: #### R [id number] #### [facility] [address] [place] [address] Dr. Ellie Smith IG % 0.2 % Normal 0.0-0.5 [facility] Comment on above: Performed By: #### R [id number] #### [facility] [address] [place] [address] Dr. Ellie Smith LYMPH # 2.1 103/ul Normal 1.2-3.8 [facility] Comment on above: Performed By: #### R EVRT3 #### [facility] [address] [place] [address] Dr. Ellie Smith Lymphocytes/100 WBC (Bld) 21.2 % Normal 20.5-60.0 [facility] Comment on above: Performed By: #### R [id number] #### [facility] [address] [place] [address] Dr. Ellie Smith MANUAL DIFF REQ NO Normal [facility] Comment on above: Performed By: #### R [id number] #### [facility] [address] [place] [address] Dr. Ellie Smith MCH (RBC) [Entitic mass] 31.2 pg Normal 26.7-34.0 [facility] Comment on above: Performed By: #### R [id number] #### [facility] [address] [place] [address] Dr. Ellie Smith MCHC (RBC) [Mass/Vol] 32.9 g/dL Normal 29.9-35.2 [facility] Comment on above: Performed By: #### R EVRT3 #### [facility] [address] [place] [address] Dr. Ellie Smith MCV (RBC) [Entitic vol] 94.6 fL Normal 81.0-99.0 [facility] Comment on above: Performed By: #### R [id number] #### [facility] [address] [place] [address] Dr. Ellie Smith MONO # 0.5 103/ul Normal 0.3-0.8 [facility] Comment on above: Performed By: #### R [id number] #### [facility] [address] [place] [address] Dr. Ellie Smith Monocytes/100 WBC (Bld) 4.7 % Normal 1.7-12.0 [facility] Comment on above: Performed By: #### R [id number] #### [facility] [address] [place] [address] Dr. Ellie Smith NEUT # 7.1 103/ul Critically high 1.4-6.5 [facility] Comment on above: Performed By: #### R EVRT3 #### [facility] [address] [address] [address] Ellie Smith Neutrophils/100 WBC (Bld) 71.0 % Normal 43.0-75.0 [facility] Comment on above: Performed By: #### R [id number] #### [facility] [address] [place] [address] Dr. Ellie Smith Platelet mean volume (Bld) [Entitic vol] 9.2 fL Critically low 9.5-13.5 [facility] Comment on above: Performed By: #### R EVRT3 #### [facility] [address] [place] [address] Dr. Ellie Smith PLT 257 103/ul Normal 150-450 [facility] Comment on above: Performed By: #### R [id number] #### [facility] [address] [place] [address] Dr. Ellie Smith RBC 4.46 106/ul Normal 4.20-5.40 [facility] Comment on above: Performed By: #### R [id number] #### [facility] [address] [place] [address] Dr. Ellie Smith WBC 10.0 103/ul Normal 4.0-11.0 [facility] Comment on above: Performed By: #### R [id number] #### [facility] [address] [place] [address] Dr. Ellie Smith Covid-19 PCR ([facility])on SARS-CoV-2 (COVID-19) RNA MEI+probe Ql (Unsp spec) Not detected Normal NOT DETECTED [facility] Comment on above: Result Comment: When [...] for this test is supported by the [place] of Health and Human Service's declaration that [...] used). Performed By: #### C VDTBH #### [facility] [address] [place] [address] Dr. Ellie Smith LIPASEon 01-18-2022 Lipase [Catalytic activity/Vol] 62.0 U/L Critically low 73.0-393.0 [facility] Comment on above: Performed By: #### A 1C #### [facility] [address] [place] [address] Dr. Ellie Smith MAGNESIUMon 01-18-2022 Magnesium [Mass/Vol] 1.4 mg/dL Critically low 1.8-2.4 [facility] Comment on above: Performed By: #### M G #### [facility] [address] [place] [address] Dr. Ellie Smith PROF 14(COMP METB)on 022 Albumin [Mass/Vol] 3.8 g/dL Normal 3.4-5.0 [facility] Comment on above: Performed By: #### A 1C #### [facility] [address] [place] [address] Dr. Ellie Smith Albumin/Globulin [Mass ratio] 1.2 {ratio} Normal [facility] Comment on above: Performed By: #### A 1C #### [facility] [address] [place] [address] Dr. Ellie Smith ALP [Catalytic activity/Vol] 59 U/L Normal 46-116 [facility] Comment on above: Performed By: #### A 1C #### [facility] [address] [place] [address] Dr. Ellie Smith ALT [Catalytic activity/Vol] 18 U/L Normal 14-59 [facility] Comment on above: Performed By: #### A 1C #### [facility] [address] [address] [address] Ellie Smith Anion gap [Moles/Vol] 11.1 mmol/L Normal [facility] Comment on above: Performed By: #### A 1C #### [facility] [address] [place] [address] Dr. Ellie Smith AST [Catalytic activity/Vol] 14 U/L Critically low 15-37 [facility] Comment on above: Performed By: #### A 1C #### [facility] [address] [place] [address] Dr. Ellie Smith Bilirubin [Mass/Vol] 0.3 mg/dL Normal 0.2-1.0 [facility] Comment on above: Performed By: #### A 1C #### [facility] [address] [place] [address] Dr. Ellie Smith Calcium [Mass/Vol] 9.1 mg/dL Normal 8.5-10.1 [facility] Comment on above: Performed By: #### A 1C #### [facility] [address] [place] [address] Dr. Ellie Smith Chloride [Moles/Vol] 104 mmol/L Normal 98-107 [facility] Comment on above: Performed By: #### A 1C #### [facility] [address] [place] [address] Dr. Ellie Smith CO2 [Moles/Vol] 26.9 mmol/L Normal 21.0-32.0 [facility] Comment on above: Performed By: #### A 1C #### [facility] [address] [place] [address] Dr. Ellie Smith Creatinine [Mass/Vol] 0.84 mg/dL Normal 0.55-1.02 [facility] Comment on above: Performed By: #### A 1C #### [facility] [address] [place] [address] Dr. Ellie Smith EGFR-AF TURKMEN >60 Normal >=60 [facility] Comment on above: Performed By: #### A 1C #### [facility] [address] [place] [address] Dr. Ellie Smith EGFR-NON AF TURKMEN >60 Normal >=60 [facility] Comment on above: Performed By: #### A 1C #### [facility] [address] [place] [address] Dr. Ellie Smith Globulin (S) [Mass/Vol] 3.1 g/dL Normal [facility] Comment on above: Performed By: #### A 1C #### [facility] [address] [place] [address] Dr. Ellie Smith Glucose [Mass/Vol] 100 mg/dL Normal 74-106 [facility] Comment on above: Performed By: #### A 1C #### [facility] [address] [place] [address] Dr. Ellie Smith Potassium [Moles/Vol] 4.0 mmol/L Normal 3.5-5.1 [facility] Comment on above: Performed By: #### A 1C #### [facility] [address] [place] [address] Dr. Ellie Smith Protein [Mass/Vol] 6.9 g/dL Normal 6.4-8.2 [facility] Comment on above: Performed By: #### A 1C #### [facility] [address] [place] [address] Dr. Ellie Smith Sodium [Moles/Vol] 138 mmol/L Normal 136-145 [facility] Comment on above: Performed By: #### A 1C #### [facility] [address] [place] [address] Dr. Ellie Smith Urea nitrogen [Mass/Vol] 14.0 mg/dL Normal 7.0-18.0 [facility] Comment on above: Performed By: #### A 1C #### [facility] [address] [place] [address] Dr. Ellie Smith Urea nitrogen/Creatinine [Mass ratio] 16.7 mg/mg Normal [facility] Comment on above: Performed By: #### A 1C #### [facility] [address] [place] [address] Dr. Ellie Smith PROTIMEon 01-18-2022 INR Coag (PPP) [Relative time] 0.95 {INR} Normal [facility] Comment on above: Performed By: #### R [id number] #### [facility] [address] [place] [address] Dr. Ellie Smith INR GUIDELINES SEE BELOW Normal [facility] Comment on above: Result Comment: HIMANSHU RED INR: 2.0 - 3.0 CONDITIONS NOT LISTED BELOW 2.5 - 3.5 FOR PROSTHETIC HEART VALVE REPLACEMENT 2.5 - 3.5 RECURRENT THROMBOSIS Performed By: #### R [id number] #### [facility] [address] [place] [address] Dr. Ellie Smith PT Coag (PPP) [Time] 10.3 s Normal 9.0-11.6 [facility] Comment on above: Performed By: #### R [id number] #### [facility] [address] [place] [address] Dr. Ellie Smith PTTon 01-18-2022 aPTT Coag (Bld) [Time] 27.1 s Normal 22.3-36.2 [facility] Comment on above: Performed By: #### R EVRT3 #### [facility] [address] [place] [address] Dr. Ellie Smith TROPONIN, HIGH SENSITIVITYon 01-18-2022 HSTROP 512.5 pg/mL Critically high 4.0-51.3 [facility] Comment on above: Result Comment: CUT- OFF POINTS HAVE BEEN ESTABLISHED BASED ON THE FOURTH UNIVERSAL DEFINITIONS OF MYOCARDIAL INFARCTION. THE UPPER REFERENCE LIMIT (URL) OF TROPONIN, DEFINED THE 99TH PERCENTILE OF cTnI DISTRIBUTION IN A REFERENCE POPULATION, HAS BEEN CONFIRMED THE DECISION THRESHOLD FOR ND DIAGNOSIS. repeated Performed By: #### A 1C #### [facility] [address] [place] [address] Dr. Ellie Smith XR CHEST 1 Von [...] by: NICOLE SANDERS Date: 2022-01-18 17:38 Normal [facility] Vital Signs Date Time Vital Sign Value Performing Clinician Facility 05-14-2024 13:40-0500 Body height 157.5 cm Priyanka Puentes MD Work Phone: [facility] 05-14-2024 13:40-0500 Body mass index (BMI) [Ratio] 27.07 kg/m2 Priyanka Puentes MD Work Phone: [facility] 05-14-2024 13:40-0500 Body weight 67.13 kg Priyanka Puentes MD Work Phone: [facility] 05-08-2024 13:40-0500 Body height 153.7 cm Karli Dougherty MD Work Phone: [facility] 05-08-2024 13:40-0500 Body mass index (BMI) [Ratio] 29.77 kg/m2 Karli Dougherty MD Work Phone: [facility] 05-08-2024 13:40-0500 Body weight 70.31 kg Karli Dougherty MD Work Phone: [facility] 05-08-2024 13:40-0500 Diastolic blood pressure 64 mm[Hg] Karli Dougherty MD Work Phone: [facility] 05-08-2024 13:40-0500 Heart rate 64 /min Karli Dougherty MD Work Phone: [facility] 05-08-2024 13:40-0500 Systolic blood pressure 132 mm[Hg] Karli Dougherty MD Work Phone: [facility] 08-31-2023 13:23-0400 Diastolic blood pressure 70 mm[Hg] Karli Dougherty MD Work Phone: [facility] 08-31-2023 13:23-0400 Systolic blood pressure 136 mm[Hg] Karli Dougherty MD Work Phone: [facility] 08-31-2023 12:56-0400 Body height 157.5 cm Karli Dougherty MD Work Phone: [facility] 08-31-2023 12:56-0400 Body mass index (BMI) [Ratio] 27.62 kg/m2 Karli Dougherty MD Work Phone: [facility] 08-31-2023 12:56-0400 Body weight 68.49 kg Karli Dougherty MD Work Phone: [facility] 08-31-2023 12:56-0400 Heart rate 72 /min Karli Dougherty MD Work Phone: [facility] 03-14-2023 12:00-0400 Body temperature 98.1 [degF] MD Priyanka Puentes Work Phone: [facility] 03-14-2023 12:00-0400 Diastolic blood pressure 72 mm[Hg] MD Priyanka Puentes Work Phone: [facility] 03-14-2023 12:00-0400 Heart rate 70 /min MD Priyanka Puentes Work Phone: [facility] 03-14-2023 12:00-0400 Respiratory rate 12 /min MD Priyanka Puentes Work Phone: [facility] 03-14-2023 12:00-0400 SaO2% (BldA) [Mass fraction] 95 % MD Priyanka Puentes Work Phone: [facility] 03-14-2023 12:00-0400 Systolic blood pressure 155 mm[Hg] MD Priyanka Puentes Work Phone: [facility] 03-14-2023 06:00-0400 Body weight 66.3 kg MD Priyanka Puentes Work Phone: [facility] 03-12-2023 20:20-0400 Body height 157.48 cm MD Priyanka Puentes Work Phone: [facility] 03-12-2023 17:59-0400 Diastolic blood pressure 91 mm[Hg] MD Priyanka Puentes Work Phone: [facility] 03-12-2023 17:59-0400 Systolic blood pressure 199 mm[Hg] MD Priyanka Puentes Work Phone: [facility] 03-12-2023 17:33-0400 Heart rate 110 /min MD Priyanka Puentes Work Phone: [facility] 03-12-2023 17:33-0400 Respiratory rate 18 /min MD Priyanka Puentes Work Phone: [facility] 03-12-2023 17:33-0400 SaO2% (BldA) [Mass fraction] 96 % MD Priyanka Puentes Work Phone: [facility] 03-12-2023 13:44-0400 Body height 157.48 cm MD Priyanka Puentes Work Phone: [facility] 03-12-2023 13:44-0400 Body temperature 98.6 [degF] MD Priyanka Puentes Work Phone: [facility] 03-12-2023 13:44-0400 Body weight 63.5 kg MD Priyanka Puentes Work Phone: [facility] 03-07-2023 08:00-0400 Body temperature 97.9 [degF] MD Priyanka Puentes Work Phone: [facility] 03-07-2023 08:00-0400 Diastolic blood pressure 77 mm[Hg] MD Priyanka Puentes Work Phone: [facility] 03-07-2023 08:00-0400 Heart rate 78 /min MD Priyanka Puentes Work Phone: [facility] 03-07-2023 08:00-0400 Respiratory rate 16 /min MD Priyanka Puentes Work Phone: [facility] 03-07-2023 08:00-0400 SaO2% (BldA) [Mass fraction] 98 % MD Priyanka Puentes Work Phone: [facility] 03-07-2023 08:00-0400 Systolic blood pressure 167 mm[Hg] MD Priyanka Puentes Work Phone: [facility] 03-07-2023 06:10-0400 Body weight 64.7 kg MD Priyanka Puentes Work Phone: [facility] 03-06-2023 13:53-0400 Body height 157.48 cm MD Priyanka Puentes Work Phone: [facility] 03-05-2023 21:31-0400 Diastolic blood pressure 65 mm[Hg] MD Priyanka Puentes Work Phone: [facility] 03-05-2023 21:31-0400 Heart rate 85 /min MD Priyanka Puentes Work Phone: [facility] 03-05-2023 21:31-0400 SaO2% (BldA) [Mass fraction] 96 % MD Priyanka Puentes Work Phone: [facility] 03-05-2023 21:31-0400 Systolic blood pressure 145 mm[Hg] MD Priyanka Puentes Work Phone: [facility] 03-05-2023 18:47-0400 Respiratory rate 18 /min MD Priyanka Puentes Work Phone: [facility] 03-05-2023 18:00-0400 Body height 157.48 cm MD Priyanka Puentes Work Phone: [facility] 03-05-2023 18:00-0400 Body temperature 97.1 [degF] MD Priyanka Puentes Work Phone: [facility] 03-05-2023 18:00-0400 Body weight 65.7 kg MD Priyanka Puentes Work Phone: [facility] 02-16-2023 13:38-0400 Body height 157.48 cm Priyanka Puentes Work Phone: [facility] [address] DO Work Phone: 02-16-2023 13:38-0400 Body mass index (BMI) [Ratio] 26.52 kg/m2 Priyanka Puentes Work Phone: [facility] [facility] DO Work Phone: 02-16-2023 13:38-0400 Body surface area Derived from formula 1.67 m2 Priyanka Puentes Work Phone: [facility] [facility] DO Work Phone: 02-16-2023 13:38-0400 Body weight 65.77 kg Priyanka Puentes Work Phone: [facility] [address] DO Work Phone: 02-16-2023 13:38-0400 Diastolic blood pressure 62 mm[Hg] Priyanka Puentes Work Phone: [facility] [address] DO Work Phone: 02-16-2023 13:38-0400 Heart rate 76 /min Priyanka Puentes Work Phone: [facility] [facility] DO Work Phone: 02-16-2023 13:38-0400 Systolic blood pressure 128 mm[Hg] Priyanka Puentes Work Phone: [facility] [address] DO Work Phone: 08-24-2022 14:35-0400 Body height 157.48 cm Priyanka Puentes Work Phone: [facility] [facility] DO Work Phone: 03-15-2023 14:35-0400 Body mass index (BMI) [Ratio] 27.98 kg/m2 Priyanka Malcolmyer Work Phone: [facility] [facility] DO Work Phone: 08-24-2022 14:35-0400 Body surface area Derived from formula 1.71 m2 Priyanka Malcolmyer Work Phone: [facility] DO Work Phone: 08-24-2022 14:35-0400 Body weight 69.4 kg Edzeeshan Malcolmyer Work Phone: [facility] DO Work Phone: 08-24-2022 14:35-0400 Diastolic blood pressure 54 mm[Hg] Priyanka Malcolmyer Work Phone: [facility] DO Work Phone: 08-24-2022 14:35-0400 Heart rate 82 /min Edzeeshan Malcolmyer Work Phone: [facility] DO Work Phone: 08-24-2022 14:35-0400 Systolic blood pressure 132 mm[Hg] Priyanka Malcolmyer Work Phone: [facility] [facility] DO Work Phone: 03-17-2022 15:30-0400 Body height 157.48 cm Priyanka Malcolmyer Work Phone: [facility] [address] [place] [address] DO Work Phone: 03-17-2022 15:30-0400 Body mass index (BMI) [Ratio] 30.18 kg/m2 Edzeeshan Malcolmyer Work Phone: [facility] [place] [address] DO Work Phone: 03-17-2022 15:30-0400 Body surface area Derived from formula 1.76 m2 Edzeeshan Malcolmyer Work Phone: [facility] [place] [address] DO Work Phone: 03-17-2022 15:30-0400 Body weight 74.84 kg Priyanka Schrader Dhaval Work Phone: [facility] [place] [address] DO Work Phone: 03-17-2022 15:30-0400 Diastolic blood pressure 58 mm[Hg] Priyanka Malcolmyer Work Phone: [facility] [place] [address] DO Work Phone: 03-17-2022 15:30-0400 Heart rate 80 /min Priyanka Malcolmyer Work Phone: [facility] [place] [address] DO Work Phone: 03-17-2022 15:30-0400 Systolic blood pressure 130 mm[Hg] Priyanka Malcolmyer Work Phone: [facility] [place] [address] DO Work Phone: 02-15-2022 14:39-0400 Body height 157.48 cm Priyanka Malcolmbud Work Phone: [facility] DO Work Phone: 02-15-2022 14:39-0400 Body mass index (BMI) [Ratio] 30.18 kg/m2 Priyanka Malcolmbud Work Phone: [facility] DO Work Phone: 02-15-2022 14:39-0400 Body surface area Derived from formula 1.76 m2 Priyanka Puentes Work Phone: [facility] [facility] DO Work Phone: 02-15-2022 14:39-0400 Body weight 74.84 kg Priyanka Puentes Work Phone: [facility] [facility] DO Work Phone: 02-15-2022 14:39-0400 Diastolic blood pressure 60 mm[Hg] Larryzeeshan Schrader Hemeyer Work Phone: [facility] [facility] DO Work Phone: 02-15-2022 14:39-0400 Heart rate 78 /min Larryzeeshan Schrader Hemeyer Work Phone: [facility] [facility] DO Work Phone: 02-15-2022 14:39-0400 Systolic blood pressure 140 mm[Hg] Priyanka Schrader Hemeyer Work Phone: [facility] DO Work Phone: 02-15-2022 14:39-0400 10 1 Priyanka Schrader Hemeyer Work Phone: [facility] [facility] DO Work Phone: Comment on above: PHQ-9 TS 02-03-2022 17:15-0400 Diastolic blood pressure 84 mm[Hg] MD Priyanka Puentes Work Phone: [facility] 02-03-2022 17:15-0400 Heart rate 78 /min MD Priyanka Puentes Work Phone: [facility] 02-03-2022 17:15-0400 Respiratory rate 20 /min MD Priyanka Puentes Work Phone: [facility] 02-03-2022 17:15-0400 SaO2% (BldA) [Mass fraction] 94 % MD Priyanka Puentes Work Phone: [facility] 02-03-2022 17:15-0400 Systolic blood pressure 185 mm[Hg] MD Priyanka Puentes Work Phone: [facility] 02-03-2022 16:00-0400 Body temperature 97.8 [degF] MD Priyanka Puentes Work Phone: [facility] 02-03-2022 10:25-0400 Body height 157.48 cm MD Priyanka Puentes Work Phone: [facility] 02-03-2022 10:25-0400 Body weight 77.5 kg MD Priyanka Puentes Work Phone: [facility] 01-21-2022 12:00-0400 Body temperature 97.6 [degF] MD Priyanka Puentes Work Phone: [facility] 01-21-2022 12:00-0400 Diastolic blood pressure 81 mm[Hg] MD Priyanka Puentes Work Phone: [facility] 01-21-2022 12:00-0400 Heart rate 73 /min MD Priyanka Puentes Work Phone: [facility] 01-21-2022 12:00-0400 Respiratory rate 20 /min MD Priyanka Puentes Work Phone: [facility] 01-21-2022 12:00-0400 SaO2% (BldA) [Mass fraction] 94 % MD Priyanka Puentes Work Phone: [facility] 01-21-2022 12:00-0400 Systolic blood pressure 150 mm[Hg] MD Priyanka Puentes Work Phone: [facility] 01-21-2022 05:59-0400 Body weight 79.6 kg MD Priyanka Puentes Work Phone: [facility] 01-19-2022 09:50-0400 Body height 157.48 cm MD Priyanka Puentes Work Phone: [facility] 01-18-2022 00:00-0400 55 1 Priyanka Puentes Work Phone: [facility] DO Work Phone: Comment on above: [id number] 01-01-2022 11:00-0400 Body height 157.48 cm Eva Panda Other babber[facility] Other 01-01-2022 11:00-0400 Body mass index (BMI) [Ratio] 31.64 kg/m2 Eva Panda Other [facility] Other 01-01-2022 11:00-0400 Body temperature 97.1 [degF] Eva Panda Other [facility] Other 01-01-2022 11:00-0400 Body weight 78.47 kg Eva Panda Other [facility] Other 01-01-2022 11:00-0400 Diastolic blood pressure 101 mm[Hg] Eva Panda Other [facility] Other 01-01-2022 11:00-0400 Respiratory rate 18 /min Eva Panda Other [facility] Other 01-01-2022 11:00-0400 SaO2% (BldA) [Mass fraction] 96 % Eva Panda Other [facility] Other 01-01-2022 11:00-0400 Systolic blood pressure 156 mm[Hg] Eva Panda Other [facility] Other Encounters Encounter Date Encounter Type Care Provider Facility Start: 07-16-2024 End: 07-16-2024 Clinisync Result Encounter Priyanka Puentes MD Work Phone: [facility] External [facility] Unsolicited Start: 07-16-2024 End: 07-16-2024 Clinisync Result Encounter Priyanka Puentes MD Work Phone: [facility] External [facility] Unsolicited Start: 07-11-2024 End: [...] 15 minutes Karli Dougherty MD Work Phone: [facility] Comment on above: Status post percutan eous transluminal coronary angioplasty (Primary Dx); Coronary artery disease involving [place] coronary artery of [place] heart without angina pectoris; Mixed hyperlipidemia; Hypertension, benign; Body mass index (BMI) 29.0-29.9, adult; Dyspnea on exertion; Former smoker Start: 05-08-2024 End: 05-08-2024 ambulatory [facility] Start: 01-22-2024 End: 01-22-2024 ambulatory PRIYANKA PUENTES Not Available Start: 12-13-2023 End: 12-13-2023 ambulatory PRIYANKA PUENTES Not Available Start: 08-31-2023 End: 08-31-2023 Office outpatient visit 15 minutes Karli Dougherty MD Work Phone: [facility] Comment on above: Coronary artery dise ase involving [place] coronary artery of [place] heart without angina pectoris (Primary Dx); Status post percutaneous transluminal coronary angioplasty; Mixed hyperlipidemia; Hypertension, benign; Dyspnea on exertion; BMI 27.0-27.9,adult; Former smoker Start: 08-31-2023 End: 08-31-2023 ambulatory [facility] Start: 08-30-2023 End: 08-30-2023 ambulatory [...] Start: 03-12-2023 End: 03-14-2023 ambulatory Sima Hdz Facility:[facility] Start: 03-12-2023 End: 03-14-2023 Evaluation and management of inpatient MD Priyanka Puentes Work Phone: [facility] [place] [facility] Work Phone: Start: 03-12-2023 End: 03-14-2023 observation encounter MD Priyanka Puentes Work Phone: [facility] Work Phone: Start: 03-06-[address] Priyanka Puentes Facility:[id number] Start: 03-05-2023 End: 03-07-2023 ambulatory Priyanka Puentes Facility:[facility] Start: 03-05-2023 End: 03-07-2023 Evaluation and management of inpatient MD Priyanka Puentes Work Phone: [facility] [place] [facility] Work Phone: Start: 03-05-2023 End: 03-07-2023 observation encounter MD Priyanka Puentes Work Phone: [facility] Work Phone: Start: 03-02-2023 Telephone encounter Priyanka bhatt Work Phone: [facility] [address] [place] [address] DO Work Phone: Start: 02-16-2023 Office outpatient vi sit 15 minutes Priyanka Puentes Work Phone: [facility] [facility] DO Work Phone: Start: 02-16-[address] Priyanka Puentes Facility: Start: 10-05-2022 End: 10-06-[address] PRIYANKA PUENTES . Facility:[facility] Start: 08-24-2022 Office outpatient vi sit 25 minutes Priyanka Puentes Work Phone: [facility] [facility] DO Work Phone: Start: 08-24-[address] Priyanka Puentes Facility: Start: 08-15-2022 End: 08-16-[address] ANUM WOODY Facility:[facility] Start: 06-14-2022 End: 07-19-[address] PRIYANKA PUENTES . Facility:[facility] Start: 04-12-2022 End: 04-13-[address] PRIYANKA PUENTES . Facility:[facility] Start: 03-29-2022 End: 03-30-[address] PRIYANKA PUENTES . Facility:[facility] Start: 03-25-2022 Telephone encounter Priyanka bhatt Work Phone: [facility] [facility] DO Work Phone: Start: 03-17-2022 Office outpatient vi sit 25 minutes Priyanka Puentes Work Phone: [facility] [address] [place] [address] DO Work Phone: Start: 03-17-2022 ambulatory Ms. hKanh Barrios Lester Persaud Facility: Start: 02-24-2022 End: 06-14-[address] PRIYANKA PUENTES . Facility:[facility] Start: 02-15-2022 Office outpatient vi sit 25 minutes Priyanka Puentes Work Phone: [facility] [facility] DO Work Phone: Start: 02-07-2022 Telephone encounter Priyanka bhatt Work Phone: [facility] [facility] DO Work Phone: Start: 02-03-2022 End: 02-03-2022 Admission to same day surgery center MD Priyanka Puentes Work Phone: [facility] Display Specialist Start: 02-01-2022 End: 02-01-2022 Patient encounter procedure MD Priyanka Puentes Work Phone: [facility] Start: 01-27-2022 End: 01-28-[address] RAQUEL PERSAUD Facility:[facility] Start: 01-18-2022 End: 01-21-2022 Evaluation and management of inpatient MD Priyanka Puentes Work Phone: [facility] [place] [facility] Start: 01-18-2022 End: 01-18-2022 ambulatory BRITTNI LOTT . Facility:[facility] Start: 01-01-2022 End: 01-01-2022 ambulatory Eva Panda Other [facility] Other Start: 01-01-2022 Office outpatient ne w 20 minutes Eva Panda [facility] Procedures Date Procedure Procedure Detail Performing Clinician Start: 07-16-2024 ALL T3 FREE Priyanka bhatt MD Work Phone: Start: 07-16-2024 ALL THYROID STIM HORMONE Priyanka Puentes MD Work Phone: Start: 07-11-2024 Ct lumbar spine w/o contrast material Generic External Data Provider Start: 05-17-2024 ALL LIPID PROFILE (FASTING) Generic External Data Provider Start: 05-17-2024 [facility] CMP (CMP) (FOR [facility] USE) Generic External Data Provider [...] procedure 12/11/2024 1:30 PM EDT Office Visit [facility] [address] [facility] [address] [place] [address] Karli Dougherty MD [address] [facility] [place] [address] [facility] Start: 08-30-2024 Medicare Annual Wellness Visit Medicare Annual Wellness Visit (AWV) [facility] Start: 07-29-2024 End: 07-29-2024 Patient encounter procedure [facility] Start: 07-15-2024 End: 07-15-2024 Patient encounter procedure [facility] Start: 05-14-2024 End: 05-14-2024 Patient encounter procedure 05/14/2024 1:45 PM EST Office Visit [facility] [address] [place] [address] Priyanka Puentes MD [address] [place] [address] (Fax) Arrived [facility] Comment on above: Arrived Start: 05-08-2024 End: 05-08-2025 Alanine aminotransferase [Enzymatic activity/volume] in Serum or Plasma by With P-5'-P Alanine Aminotransferase Lab Routine Mixed hyperlipidemia Expected: 05/08/2024 (Approximate), Expires: 05/08/2025 [facility] Service Area Work Phone: Comment on above: Expected: 05/08/2024 (Approximate), Expi res: 05/08/2025 Start: 05-08-2024 End: 05-08-2025 Aspartate aminotransferase [Enzymatic activity/volume] in Serum or Plasma by With P-5'-P Aspartate Aminotransferase Lab Routine Mixed hyperlipidemia Expected: 05/08/2024 (Approximate), Expires: 05/08/2025 [facility] Work Phone: Comment on above: Expected: 05/08/2024 (Approximate), Expi res: 05/08/2025 Start: 05-08-2024 End: 05-08-2025 Comprehensive metabolic 2000 panel - Serum or Plasma Comprehensive Metabolic Panel Lab Routine Hypertension, benign Expected: 05/08/2024 (Approximate), Expires: 05/08/2025 [facility] Work Phone: Comment on above: Expected: 05/08/2024 (Approximate), Expi res: 05/08/2025 Start: 05-08-2024 End: 05-08-2025 Lipid 1996 panel - Serum or Plasma Lipid Panel Lab Routine Mixed hyperlipidemia Expected: 05/08/2024 (Approximate), Expires: 05/08/2025 [facility] Work Phone: Comment on above: Expected: 05/08/2024 (Approximate), Expi res: 05/08/2025 Start: 05-08-2024 End: 05-08-2024 Patient encounter procedure 05/08/2024 1:40 PM EST Office Visit [facility] [address] [id number] Karli Dougherty MD [address] [facility] [address], [address] [address] [facility] Start: 08-31-2023 FUV, Provider: Karli Dougherty, Status: Pen, Time: 1:00 PM FUV, Provider: Karli Dougherty, Status: Pen, Time: 1:[address] [facility] [address] DO Work Phone: Start: 08-08-2023 End: 08-08-2023 Patient encounter procedure 08/08/2023 10:00 AM EST Office Visit [facility] [address] [place] [address] Priyanka Puentes MD [address] [facility] [place] [address] [facility] Start: 03-14-2023 [facility] Start: 03-12-2023 Referral to Line Installation Supervisor [facility] Start: 03-12-2023 Hospital admission [facility] Start: 03-12-2023 Physical therapy procedure [facility] Start: 03-12-2023 Referral to occupational therapist [facility] Start: 03-12-2023 [facility] Start: 03-07-2023 [facility] Start: 03-06-2023 Comprehensive metabolic 2000 panel - Serum or Plasma [facility] Start: 03-06-2023 Doppler ultrasonography of bilateral carotid arteries US carotid doppler BI [facility] Start: 03-06-2023 Lipid panel [facility] Start: 03-06-2023 [facility] Start: 03-05-2023 Hospital admission [facility] Start: 03-05-2023 Physical therapy procedure [facility] Start: 03-05-2023 Referral to occupational therapist [facility] Start: 03-05-2023 [facility] Start: 03-05-2023 [facility] Start: 02-16-2023 FUV, Provider: Karli Dougherty, Status: Pen, Time: 1:20 PM FUV, Provider: Karli Dougherty, Status: Pen, Time: 1:20 PM [facility] DO Work Phone: Start: 01-27-2023 Urine screening for protein Diabetes: Urine Protein Screening [facility] Start: 11-15-2022 Hemoglobin A1c measurement Diabetes: Hemoglobin A1C [facility] Start: 08-23-2022 Medicare Annual Wellness (AWV) Medicare Annual Wellness (AWV) [facility] Start: 07-06-2022 FUV, Provider: Karli Dougherty, Status: Pen, Time: 2:20 PM FUV, Provider: Karli Dougherty, Status: Pen, Time: 2:20 PM [facility] [place] [address] DO Work Phone: Start: 03-17-2022 FUV, Provider: Khanh Mercado, Status: Pen, Time: 3:30 PM FUV, Provider: Khanh Mercado, Status: Pen, Time: 3:30 PM [facility] [address] DO Work Phone: Start: 02-03-2022 [facility] Work Phone: Start: 02-03-2022 Hospital admission [facility] Work Phone: Start: 02-03-2022 CL PTCA Ea Add LAD CL PTCA Ea Add LAD [facility] Start: 02-03-2022 CL Stent 1st Vessel LAD GAYATHRI CL Stent 1st Vessel LAD GAYATHRI [facility] Start: 02-03-2022 [facility] Start: 02-03-2022 End: 02-03-2022 Admission to same day surgery center Departed Surgical Day Care [facility] Display Specialist Start: 02-01-2022 End: 02-01-2022 Patient encounter procedure Departed Clinical [facility]-Pre-Surgical Testing Start: 01-21-2022 [facility] Work Phone: Start: 01-18-2022 Referral to 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 print shop [facility] Work Phone: Start: 01-18-2022 Hospital admission [facility] Work Phone: Start: 01-18-2022 Dilation of Coronary Artery, Two Arteries with Four or More Drug-eluting Intraluminal Devices, Percutaneous Approach Dilation of Coronary Artery, Two Arteries with Four or More Drug-eluting Intraluminal Devices, Percutaneous Approach [facility] Start: 01-18-2022 Fluoroscopy of Left Heart using Low Osmolar Contrast Fluoroscopy of Left Heart using Low Osmolar Contrast [facility] Start: 01-18-2022 Fluoroscopy of Multiple Coronary Arteries using Low Osmolar Contrast Fluoroscopy of Multiple Coronary Arteries using Low Osmolar Contrast [facility] Start: 01-18-2022 Measurement of Cardiac Sampling and Pressure, Left Heart, Percutaneous Approach Measurement of Cardiac Sampling and Pressure, Left Heart, Percutaneous Approach [facility] Start: 10-16-2018 Urine screening for protein Diabetes: Urine Protein Screening [facility] Start: 02-21-1992 Zoster Vaccines (1 of 2) Zoster Vaccines (1 of 2) [facility] Start: 02-21-1964 DTaP/Tdap/Td Vaccines (1 - Tdap) DTaP/Tdap/Td Vaccines (1 - Tdap) [facility] Start: 02-21-1960 Diabetes mellitus screening Diabetes Screening [facility] Start: 1942 Lipid panel Lipid Panel [facility] Start: 1942 Medicare Annual Wellness Visit Medicare Annual Wellness Visit (AWV) [facility] Start: 1942 Thyroid stimulating hormone measurement TSH Level [facility] Patient Education [facility] Work Phone: Patient referral [facility] Work Phone: Immunizations Immunization Date Immunization Notes Care Provider Sirnivasan walker 04-23-2024 ABRYSVO - Respirator y syncytial virus (RSV), vaccine, bivalent, protein subunit RSV prefusion F, diluent reconstituted, 0.5 mL, PF Priyanka Puentes MD Work Phone: [facility] 04-17-2024 influenza, high dose seasonal, preservative-free Priyanka Puentes MD Work Phone: [facility] 05-09-2023 Influenza, High-dose Seasonal, Quadrivalent, Preservative Free Priyanka Puentes MD Work Phone: [facility] 05-17-2022 Fluzone High-Dose Quadrivalent 0.7 ML Intramuscular Suspension Prefilled Syringe Priyanka Puentes Work Phone: [facility] [address] DO Work Phone: 04-29-2022 Moderna Bivalent Saenz ster Vaccination Priyanka Puentes MD Work Phone: [facility] 04-29-2022 Pfizer COVID-19 Vac Bivalent 30 MCG/0.3ML Intramuscular Suspension Priyanka Puentes Work Phone: [facility] Work Phone: 04-19-2021 influenza, injectabl e, quadrivalent, preservative free Priyanka Puentes Work Phone: [facility] 03-17-2021 Pfizer-BioNTech COVI D-19 Vacc 30 MCG/0.3ML Intramuscular Suspension [facility] Work Phone: 03-16-2021 Pfizer Purple Cap SARS-CoV-2 Vaccination Priyanka Puentes MD Work Phone: [facility] 07-31-2020 COVID-19 Bob Ordonez (Pfizer) MD Priyanka Puentes Work Phone: [facility] 07-30-2020 Pfizer Purple Cap SARS-CoV-2 Vaccination Priyanka Puentes MD Work Phone: [facility] 07-08-2020 Pfizer-BioNTech COVI D-19 Vacc 30 MCG/0.3ML Intramuscular Suspension [facility] Work Phone: 07-07-2020 Pfizer Purple Cap SARS-CoV-2 Vaccination Priyanka Puentes MD Work Phone: [facility] 07-03-2020 COVID-19 Bob Ordonez (Pfizer) MD Priyanka Puentes Work Phone: [facility] 03-26-2020 Seasonal trivalent influenza vaccine, adjuvanted, preservative free Priyanka Puentes Work Phone: [facility] DO Work Phone: 03-25-2020 Seasonal trivalent influenza vaccine, adjuvanted, preservative free Priyanka Puentes MD Work Phone: [facility] 04-09-2019 influenza, injectabl e, quadrivalent, preservative free Priyanak Puentes MD Work Phone: [facility] 04-09-2019 Seasonal trivalent influenza vaccine, adjuvanted, preservative free Priyanka Schrader Hemebud Work Phone: [place] [address] DO Work Phone: 04-03-2018 influenza, injectabl e, quadrivalent, preservative free Priyanka Schrader Hemeyer Work Phone: [place] [address] DO Work Phone: 04-02-2018 influenza, injectabl e, quadrivalent, preservative free Priyanka Puentes MD Work Phone: [facility] 04-02-2018 pneumococcal conjuga te vaccine, 13 valent Edward J Hemeyer Work Phone: [place] [address] DO Work Phone: 03-20-2017 pneumococcal conjuga te vaccine, 13 valent Edward J Hemeyer Work Phone: [place] [address] DO Work Phone: 03-13-2017 influenza, seasonal, injectable Edward J Hemeyer Work Phone: [place] [address] DO Work Phone: 04-14-2016 influenza, injectabl e, quadrivalent, contains preservative Larryward J Hemebud Work Phone: [place] [address] DO Work Phone: 04-12-2016 influenza, injectabl e, quadrivalent, preservative free Priyanka Puentes MD Work Phone: [facility] 04-17-2015 influenza, injectabl e, quadrivalent, preservative free Priyanka Puentes MD Work Phone: [facility] 04-03-2015 influenza, seasonal, injectable Priyanka Puentes Work Phone: [facility] 250 DO Work Phone: 05-20-2009 pneumococcal polysaccharide vaccine, 23 valent Priyanka Macrina Dhaval Work Phone: [facility] 250 DO Work Phone: Payers Date Payer Category Payer Private Health Insurance [employer] Member Subscriber Plan / Payer (Effective 2021-Present) Name: Steven Harding Relation to Subscriber: Self Name: Steven Harding Payer ID: Not on file Type: Not on file Address: [place] [id number] 2021 Unknown 2007 Medicare [id number] 1959 Medicare [id number] [id number] 1959 Medicare [id number] 1942 Unknown [id number] 2.16.840.1.329707.3.579.2. 593 1942 Unknown [id number] 2.16.840.1.242179.3.579.2. 593 1942 Unknown [id number] 2.16.840.1.923513.3.579.2. 593 1942 Unknown [id number] 2.16.840.1.969894.3.579.2. 593 1942 Unknown [id number] 2.16.840.1.601684.3.579.2. 593 1942 Unknown [id number] 2.16.840.1.760202.3.579.2. 593 1942 Unknown [id number] 2.16.840.1.483680.3.579.2. 593 1942 Unknown [id number] 2.16.840.1.643689.3.579.2. 593 1942 Unknown [id number] 2.16.840.1.773605.3.579.2. 356 1942 Unknown [id number] 2.16.840.1.403867.3.579.2. 356 1942 Unknown [id number] 2.16.840.1.080051.3.579.2. 356 1942 Unknown [id number] 2.16.840.1.209561.3.579.2. 356 1942 Unknown [id number] 2.16.840.1.221954.3.579.2. 1244 1942 Unknown [id number] 2.16.840.1.910754.3.579.2. 1244 1942 Unknown [id number] 2.16.840.1.689622.3.579.2. 1259 1942 Unknown [id number] 2.16.840.1.248772.3.579.2. 1259 1942 Unknown [id number] 2.16.840.1.010665.3.579.2. 1259 1942 Unknown [id number] 2.16.840.1.863275.3.579.2. 1259 1942 Unknown [id number] 2.16.840.1.775854.3.579.2. 1259 1942 Unknown [id number] 2.16.840.1.620329.3.579.2. 1259 Medicare Medicare Outpatient [id number] [id number] Self-pay Self Pay [id number] Unknown [id number] Unknown [facility] [id number] Social History Date Type Detail Facility Start: 02-14-2023 End: 08-30-2023 Sex Assigned At [facility] Start: 02-03-2022 End: 08-08-2023 Tobacco smoking status [facility] Ex-smoker (finding) [facility] Start: 1940 Sex Assigned At Female F [facility] Start: 02-14-2023 End: 08-30-2023 Former smoker Former smoker [facility] Comment on above: nicotine lozenges; Start: 03-12-2023 Tobacco smoking stat [facility] Smoker (finding) [facility] History of tobacco use Cigarette Smoker [...] Not at all [facility] (I/We) worried sim er (my/our) food would run out before (I/we) got money to buy more. Never true [facility] Start: 02-14-2023 Tobacco Comment Last smoked : 1-5 years [facility] Start: 01-18-2023 Alcohol Comment Caffeine intak e: 3 cups decaf per day [facility] Start: 1940 Sex Assigned At Not on file N [facility] Start: 08-08-2023 End: 08-31-2023 Tobacco use and exposure Smokeless tobacco non-user [facility] Work Phone: Start: 08-31-2023 End: 05-08-2024 Alcohol intake Lifetime non-drinker (finding) [facility] Work Phone: Start: 08-21-2023 End: 05-08-2024 Exposure to SARS-CoV-2 (event) Not sure [facility] Medical Equipment Procedure Code Equipment Code Equipment Original Text Equipment Identifier Dates [id number] FDA Start: 01-20-2022 Drug-eluting cor onary artery stent, lty-jgbcqsoselwde-satto er-coated ()[id number]( [id number] FDA Start: 01-20-2022 Drug-eluting cor onary artery stent, shw-qwcscnbdbudte-zzimx er-coated ()[id number] FDA Start: 01-20-2022 Drug-eluting cor onary artery stent, anb-djkflpxvxaqux-ennif er-coated ()[id number] FDA Start: 01-20-2022 Drug-eluting cor onary artery stent, icr-ebaafbxrtuheb-soaut er-coated ()[id number] FDA Start: 02-03-2022 [id number] FDA Start: 01-20-2022 [id number] FDA Start: 01-20-2022 [id number] FDA Start: 01-20-2022 [id number] FDA Start: 01-20-2022 [id number] FDA Start: 01-20-2022 [id number] FDA Start: 01-20-2022 Goals Date Patient Goal Desired Activity /State Functional Status Date Assessment Result Facility 03-14-2023 Functional status Patient at [facility] Work Phone: 03-07-2023 Functional status Patient at [facility] Work Phone: 03-05-2023 Functional status Disability Sta tus Patient at [facility] Work Phone: 02-15-2022 PHQ-9 [id number] Moderate (10-14) -[facility] 250 DO Work Phone: 02-03-2022 Functional status Patient at [facility] Work Phone: 01-21-2022 Functional status Patient at [facility] Work Phone: Mental Status Date Assessment Result Facility 03-14-2023 Cognitive function Cognitive Sta tus Patient at [facility] Work Phone: 03-07-2023 Cognitive function Cognitive Sta tus Patient at [facility] Work Phone: 02-03-2022 Cognitive function Cognitive Sta tus Patient at [facility] Work Phone: 01-21-2022 Cognitive function Cognitive Sta tus Patient at [facility] Work Phone: Clinical Notes 08-24-2021 to 06-11-2024 Telephone Encounter - Priyanka Puentes MD - 06/11/2024 10:42 AM ESTTelephone Encounter - Priyanka Puentes MD - 06/11/2024 10:42 AM ESTTelephone Encounter - Kathia Nieves - 06/11/2024 10:15 AM EST Note Date & Type Note Facility 06-11-2024 Telephone encounter Note Rx sent [facility] 06-11-2024 Miscellaneous Notes Rx sent Steven called, She is going today for her xray on her hip. She states that she will be out of her gabapentin 100 mg today. She is requesting a refill to help with her pain. She stated tht nothing is scheduled yet on getting it fixed. [facility] uses [facility] [place]. documented in this encounter [facility] 06-11-2024 Telephone encounter Note Steven called, She is going today for her xray on her hip. She states that she will be out of her gabapentin 100 mg today. She is requesting a refill to help with her pain. She stated tht nothing is scheduled yet on getting it fixed. She uses [facility] [place]. [facility] 05-28-2024 Telephone encounter Note Called [facility] sOMEHOW THEY DO NOT HAVE THIS ORDER AND THERE WAS NO rx DONE. REPRINTED EXSISTING ORDER AND lm ON Steven'S PHONE THAT IT WOULD BE FAXED OVER THERE. [facility] 05-28-2024 Miscellaneous Notes Called [facility] sOMEHOW THEY DO NOT HAVE THIS ORDER AND THERE WAS NO rx DONE. REPRINTED EXSISTING ORDER AND lm ON Steven'S PHONE THAT IT WOULD BE FAXED OVER THERE. Called and talked with her. Pain relief with 2 gabapentin 100mg. Reviewed lumbar X ray with her, after preview no hip x ray. Will contact [facility] tomorrow and try to get results. Steven left a message on the nurse line. She states she has not heard back on her hip and back xray and that she is still in a lot of pain. She is requesting a call back. documented in this encounter [facility] 05-27-2024 Telephone encounter Note Called and talked with her. Pain relief with 2 gabapentin 100mg. Reviewed lumbar X ray with her, after preview no hip x ray. Will contact [facility] tomorrow and try to get results. [facility] 05-27-2024 Telephone encounter Note Steven left a message on the nurse line. She states she has not heard back on her hip and back xray and that she is still in a lot of pain. She is requesting a call back. [facility] 05-14-2024 History of Presen t illness Narrative [...] is not improving. documented in this encounter [facility] 05-08-2024 History of Presen t illness Narrative [...] coronary angioplasty 2. Coronary artery disease involving [place] coronary artery of [place] heart without angina pectoris Follow Up In Cardiology Follow Up In Cardiology 3. Mixed hyperlipidemia Alanine Aminotransferase Aspartate Aminotransferase Lipid Panel Alanine Aminotransferase Aspartate Aminotransferase Lipid Panel 4. Hypertension, benign Comprehensive Metabolic Panel Comprehensive Metabolic Panel 5. Body mass index (BMI) 29.0-29.9, adult 6. Dyspnea on exertion 7. Former smoker Scribe Attestation By signing my name below, I, Katharina Krause LPN, Marcoibe attest that this documentation has been prepared [...] discussion and plan. documented in this encounter [facility] Work Phone: 05-08-2024 Instructions Katharina Seay [...] instructions on exercise. documented in this encounter [facility] Work Phone: 08-31-2023 History of Presen [...] 3 Assessment/Plan 1. Coronary artery disease involving [place] coronary artery of [place] heart without angina pectoris Follow Up In [...] discussion and plan. documented in this encounter [facility] Work Phone: 08-31-2023 Instructions Ruba Chowdhury [...] instructions on exercise. documented in this encounter [facility] Work Phone: 03-13-2023 Progress note Note Date/Time March 13, 2023 4:47pm [facility] [address] [place] [address] Hospitalist Progress Note Signed Patient: Steven Harding MR#: [id number] : 1940 Acct:[id number] Age/Sex: 83 / F Adm Date: 3 Loc: 4P Room: [address] [place] [address] Type: ADM INOo Attending Dr: Rufus Ricks [...] Hyponatremia of 128. TSH was suppressed on [facility] and has been checked twice with [...] signed by Rufus Ricks DO> 03/13/23 1647 [facility] Work Phone: 1(554) 650-995010-01-2023 History and physical note Author Sima Hdz [facility] March 12, 2023 7:49pm Note Date/Time March 12, 2023 7: 50pm [facility] [address] [place] [address] Hospitalist H&P Signed Patient: Steven Harding MR#: [id number] : 1940 Acct:[id number] Age/Sex: 83 / F Adm Date: 3 Loc: Room: [address] [place] [address] Type: ADM IN Attending Dr: Sima Hdz [...] negative unless noted below or in HPI [facility] Medical History Aneurysm Aortic. Being monitored. Per pt found at [facility] during last visit there in [...] Confirmed 03/05/23] thyroid (pork) 60 mg tablet (SANDBLAST OPERATOR Thyroid) 60 mg PO BID 01/18/22 [History [...] % (Auto) 13.2 % (.) 03/12/23 14:45 Dubois % (Auto) 5.1 % (.) 03/12/23 14:45 Eos % (Auto) 2.0 % (.) 03/12/23 14:45 Baso % (Auto) 0.4 % (.) 03/12/23 14:45 Nucleat RBC Rel Count 0.0 /100 WBC (0-0.5) 03/12/23 14:45 Neut # (Auto) 7.0 x10E3/uL (1.8-7.7) 03/12/23 14:45 Lymph # (Auto) 1.2 x10E3/uL (1.00-4.8) 03/12/23 14:45 Dubois # (Auto) 0.5 x10E3/uL (0.0-0.8) 03/12/23 14:45 [...] pH 7.5 (5.0-9.0) 03/12/23 15:55 Ur Specific [place] 1.010 (1.001-1.030) 03/12/23 15:55 Urine Protein Negative [...] Hyponatremia of 128. TSH was suppressed on [facility] and has been checked twice with [...] <Electronically signed by Sima Hdz MD> 03/12/231948 [facility] Work Phone: 1(160) 180-296109-26-2023 Discharge summary Author Chuck Chacon [facility] March 07, 2023 9:30am Note Date/Time March 07, 2023 9:30am [facility] [address] [place] [address] Discharge Summary Signed Patient: Steven Harding MR#: [id number] : 1940 Acct:[id number] Age/Sex: 83 / F Adm Date: 3 Loc: Room: [address] [place] [address]: Chuck Chacon MD Copies to: [...] been attempted on scopolamine patch, and her 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 print shop had decreased herlosartan dose. She presented again [...] follow-up with her primary care physician and 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 print shop as an outpatient for further management. She may be reintroduced to some of her cardioprotective antihypertensives in the future if deemed reasonable by her 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 print shop and primary care physician. 35 minutes spent [...] TABLET BY MOUTH TWICE DAILY thyroid (pork) [SANDBLAST OPERATOR Thyroid] 60 mg tablet 60 mg PO [...] <Electronically signed by Chuck Chacon MD> 03/07/23929 [facility] Work Phone: 1(607) 831-340709-25-2023 Progress note Author Chuck Chacon [facility] March 06, 2023 1:51pm Note Date/Time March 06, 2023 1:38pm [facility] [address] [place] [address] Hospitalist Progress Note Signed Patient: Steven Harding MR#: [id number] : 1940 Acct:[id number] Age/Sex: 83 / F Adm Date: 3 Loc: Room: [address] [place] [address] Type: ADM INOo Attending Dr: Chuck Chacon [...] 1,000 mls @ 60 mls/hr 03/05/23 22:30 09/24/23 23:02 0.9% Sodium Chloride 1,000 Ml IV 03/07/23 07:49 60 mls/hr .[id number] YVROSE Administration Insulin Aspart 0 units 03/06/23 [...] be improved from previous assessment during patient's ND -We will trend orthostatic vital signs -Monitor on telemetry for at least 24 hours -Continue metoprolol, continue to hold losartan, spironolactone and nifedipine for now -May consider restarting low doses in the a.m.-patient has lost close to 60 pounds since her ND-likely that BP medications are more potent -PT/OT [...] signed by Chuck Chacon MD> 03/06/23 1351 [facility] Work Phone: 1(681) 171-194709-25-2023 History and physical note Author Jemal Jones [facility] March 05, 2023 11:19pm Note Date/Time March 05, 2023 10:21pm [facility] [address] [place] [address] Hospitalist H&P Signed Patient: Steven Harding MR#: [id number] : 1940 Acct:[id number] Age/Sex: 83 / F Adm Date: 3 Loc: Room: [address] [place] [address] Type: ADM INOo Attending Dr: Jemal Jones [...] current visual changes, headache. Noted that her 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 print shop has recently decreased her losartan due to [...] except as mentioned elsewhere in the documentation [facility] Medical History Aneurysm Aortic. Being monitored. Per pt found at [facility] during last visit there in [...] Confirmed 03/05/23] thyroid (pork) 60 mg tablet (SANDBLAST OPERATOR Thyroid) 60 mg PO BID 01/18/22 [History [...] % (Auto) 14.7 % (.) 03/05/23 18:07 Dubois % (Auto) 5.4 % (.) 03/05/23 18:07 Eos % (Auto) 2.8 % (.) 03/05/23 18:07 Baso % (Auto) 0.5 % (.) 03/05/23 18:07 Nucleat RBC Rel Count 0.1 /100 WBC (0-0.5) 03/05/23 18:07 Neut # (Auto) 8.7 x10E3/uL (1.8-7.7) H 03/05/23 18:07 Lymph # (Auto) 1.7 x10E3/uL (1.00-4.8) 03/05/23 18:07 Dubois # (Auto) 0.6 x10E3/uL (0.0-0.8) 03/05/23 18:07 [...] <Electronically signed by Jemal Jones MD> 03/05/23 5643 [facility] Work Phone: 1(323) 627-944808-25-2022 [facility] Progress note Author Wiley Beal [facility] January 20, 2022 1:31pm Note Date/Time January 20, 2022 1: 31pm [facility] [address] [place] [address] Hospitalist Progress Note Signed Patient: Steven Harding MR#: [id number] : 1940 Acct:[id number] Age/Sex: 81 / F Adm Date: 2 Loc: Room: [address] [place] [address] Type: ADM IN Attending Dr: Wiley Beal [...] of care and confirmed it with the resident/student/SANDBLAST OPERATOR. Patient was seen and examined at bedside [...] To Pharmacy MISCELLANE 01/20/23 09:04 .PHACONSULT PRN ZHarriet.Pharmacy Consult Protocol Morphine Sulfate 1 mg 01/18/22 [...] PAD Hypothyroidism Documented By: Wiley Beal MD 01/20/2230 Signed By: <Electronically signed by Wiley Beal MD> 01/20/[address] [place] [address] Ctr Work Phone: 1(755) 886-814508-11-2022 [facility] Progress note Author Wiley Beal [facility] January 19, 2022 1:35pm Note Date/Time January 19, 2022 1: 35pm [facility] [address] [place] [address] Hospitalist Progress Note Signed Patient: Steven Harding MR#: [id number] : 1940 Acct:[id number] Age/Sex: 81 / F Adm Date: 2 Loc: 4 Room: [address] [place] [address] Type: ADM IN Attending Dr: Wiley Beal [...] SUBCUT 01/19/23 07:59 Not Given TID.[facility] Protocol Losartan Potassium 100 mg 01/18/22 23:10 [...] pain. [facility] he pain is much better CXR [facility] ED reported as no acute cardiopulmonary abnormality EKG [facility] ED (i personally reviewed it) shows NSR@90 bpm no significant acute changes nitro patch(started in [facility]) Morphine prn Telemetry Antiplatelet: Aspirin Anticoagulation: Heparin Drip (started in [facility]) Start Beta sarbjit therapy Serial EKGs [...] at bedside Documented By: Wiley Beal MD 01/19/221332 Signed By: <Electronically signed by Wiley Beal MD> 01/19/22 4207 [facility] Work Phone: 1(254) 826-638908-10-2022 Consult note Author Karli Dougherty [facility] January 19, 2022 12:38pm Note Date/Time January 19, 2022 12 :25pm [facility] [address] [place] [address] Cardiology Consult Note Signed with Addenda Patient: Steven Harding MR#: [id number] : 1940 Acct:[id number] Age/Sex: 81 / F Adm Date: 2 Loc: Room: [address] [place] [address] Type: ADM IN Attending Dr: Wiley Beal [...] Confirmed 01/18/22] thyroid (pork) 60 mg tablet (SANDBLAST OPERATOR Thyroid) 60 mg PO DAILY 01/18/22 [History [...] x10E3/uL Lymph # (Auto) 1.5 (1.00-4.8) x10E3/uL Dubois # (Auto) 0.4 (0.0-0.8) x10E3/uL Eos # [...] signed by MD Karli Dougherty> 01/19/22 1237 [facility] Work Phone: 1(552) 445-733308-10-2022 History and physical note Author Justa Westfall [facility] January 19, 2022 7:35am Note Date/Time January 18, 2022 11: 29pm [facility] [address] [place] [address] Hospitalist H&P Signed Patient: Steven Harding MR#: [id number] : 1940 Acct:[id number] Age/Sex: 81 / F Adm Date: 2 Loc: Room: [address] [place] [address] Type: ADM IN Attending Dr: Justa Westfall MD Copies to: MD Justa Santos MD~ HPI DATE OF EXAMINATION: 01/18/22 HISTORY OF PRESENT ILLNESS: This is a pleasant 81F with PMH of HTN, PAD(s/p stenting), Prediabetes, Hypothyroidism who p/w chest pain to the [facility] and transferred for the evaluation and [...] Confirmed 01/18/22] thyroid (pork) 60 mg tablet (SANDBLAST OPERATOR Thyroid) 60 mg PO DAILY 01/18/22 [History [...] pain. [facility]. he pain is much better CXR [facility] ED reported as no acute cardiopulmonary abnormality EKG [facility] ED (i personally reviewed it) shows NSR@90 bpm no significant acute changes nitro patch(started in [facility]) Morphine prn Telemetry Antiplatelet: Aspirin Anticoagulation: Heparin Drip (started in [facility]) Start Beta sarbjit therapy Serial EKGs [...] bedside Documented By: Justa Westfall MD 01/18/22 6836 Signed By: <Electronically signed by Justa Westfall MD> 01/19/22 4480 [facility] Work Phone: 1(299) 966-370007-23-2022 Evaluation note* Encounter Date Diagnosis Assessment Notes [...] worsening symptoms or concerns. You may use pvff-ggm-fhjksui lidocaine gel to the rash for comfort. Patient reports her delivery clerk is Dr. Lenz, she will follow-up with them on Monday. babberly Other 03-15-2022 History of Present illness Narrative* [...] and importance of staying active and exercise [facility] 250 DO Work Phone: Discharge summary Author Wiley Beal [facility] January 22, 2022 4:43pm Note Date/Time January 21, 2022 1: 46pm [facility] [address] [place] [address] Discharge Summary Signed Patient: Steven Harding MR#: [id number] : 1940 Acct:[id number] Age/Sex: 81 / F Adm Date: 2 Loc: 4P Room: 0P9714-[address]: Wiley Beal MD Copies to: [...] was anticoagulated with heparin, taken to the [employer]. On January 19, she was found to [...] % (Auto) 74.5, Lymph % (Auto) 14.2, Dubois % (Auto) 6.7, Eos % (Auto) 4.2, Baso % (Auto) 0.4, Neut # (Auto) 6.3, Lymph # (Auto) 1.2, Dubois # (Auto) 0.6, Eos# (Auto) 0.4, Baso [...] You are scheduled for STAGED ANGIOPLASTY at [facility] on 02/03/2022 at 1:00pm with Dr Hooks; please check in at 11:00am- follow instructions You are scheduled for COVID testing at [facility] on 02/01/2022 at 10:00am for upcoming Angioplasty. [...] doctor or pharmacist, without first calling the 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 print shop who implanted the stent. If you require [...] weight lifting, stair steppers, etc. until the 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 print shop approves these activities. Check with the 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 print shop on your first follow-up visit. CALL YOUR PHYSICIAN at [phone]: -If bleeding should occur from the catheter insertion site- apply pressure to the site then immediately call us. -Report any fever, redness, drainage, increased swelling, or firmness at the catheter insertion site. Some bruising or slight swelling may be present at thetime of discharge. -Should arm or leg become cold, numb, white, or blue, contact the 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 print shop immediately. -IF you should experience episodes of [...] is recommended. Please call Central Scheduling at [phone] to schedule your appointment.] The attending 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 print shop or [facility] nurse clinician should provide you with specific instructions regarding activity, diet, medications, and further follow up for you. Follow the medication instructions provided on your discharge. If the dosages and instructions on this sheet differ from the dosage and instructions on the bottle, follow the instructions on the bottle. [facility] is not responsible for incorrect prescription [...] tablet 100 mg PO DAILY thyroid (pork) [SANDBLAST OPERATOR Thyroid] 60 mg tablet 60 mg PO DAILY Label Comments: TAKE 1 TABLET BY MOUTH TWICE DAILY ON AN EMPTY STOMACH Other Ambulatory Orders: Basic Metabolic Panel (Routine) Timeframe: [id number] Location: Determined by Patient Ordered By: Diony Hooks Follow Up: [facility] [Outside] - 01/27/22 4:00 pm Documented By: Wiley Beal MD 01/21/22 1342 Signed By: <Electronically signed by Wiley Beal MD> 01/22/22 1643 [facility] Work Phone: Discharge summary Author Rufus Ricks [facility] March 14, 2023 3:31pm Note Date/Time March 14, 2023 3: 31pm [facility] [address] [place], [place] [address] Discharge Summary Signed Patient: Steven Harding MR#: [id number] : 1940 Acct:[id number] Age/Sex: 83 / F Adm Date: 3 Loc: Room: [address] [place] [address]: Rufus Ricks DO Copies to: [...] DAILY Qty: 30 0RF Held thyroid (pork) [SANDBLAST OPERATOR Thyroid] 60 mg tablet 60 mg PO [...] signed by Rufus Ricks DO> 03/14/23 1531 [facility] Work Phone: Evaluation note* Diagnosis Onset Date Resolution Status ACS (acute coronary syndrome) acute Hypertension acute Hypothyroidism acute NSTEMI (non-ST elevated myocardial infarction) acute Peripheral vascular disease acute Prediabetes acute [facility] Work Phone: Evaluation note* Diagnosis Onset Date Resolution Status Dizziness acute [facility] Work Phone: evaluation note* Diagnosis Onset Date Resolution Status Acute hyponatremia acute Dizziness acute Pre-syncope acute [facility] Work Phone: evaluation note* Diagnosis Onset Date Resolution Status Acute hyponatremia acute Dizziness acute Pre-syncope acute Acute hyponatremia acute CAD (coronary artery disease) acute Hypertensive urgency acute Hypothyroidism acute [facility] Work Phone: Evaluation note* Diagnosis Coronary artery disease involving rappahannock coronary artery of rapp[place]annock heart without angina pectoris- Primary Status post percutaneous transluminal coronary angioplasty Postsurgical percutaneous transluminal coronary angioplasty status Mixed hyperlipidemia Hypertension, benign Essential hypertension, benign Dyspnea on exertion Other dyspnea and respiratory abnormality BMI 27.0-27.9,adult Former smoker Personal history of tobacco use, presenting hazards to health documented in this encounter [facility] Work Phone: evaluation note* Diagnosis Status post percutaneous transluminal coronary angioplasty- Primary Postsurgical percutaneous transluminal coronary angioplasty status Coronary artery disease involving rappahannock coronary artery of rappahannock heart without angina pectoris Mixed hyperlipidemia Hypertension, benign Essential hypertension, benign Body mass index (BMI) 29.0-29.9, adult Dyspnea on exertion Other dyspnea and respiratory abnormality Former smoker Personal history of tobacco use, presenting hazards to health documented in this encounter [facility] Work Phone: Evaluation note* Diagnosis Acute right-sided low back pain with right-sided sciatica Right hip pain Pain in joint, pelvic region and thigh Pain of right sacroiliac joint Overweight (BMI 25.0-29.9) Overweight [facility] Diagnosis Acute right-sided low back pain with right-sided sciatica documented in this encounter [facility] Author Sima Hdz [facility] March 12, 2023 7:49pm Note Date/Time March 12, 2023 7: 50pm [facility] [address] [place] [address] Hospitalist H&P Signed Patient: Steven Harding MR#: [id number] : 1940 Acct:[id number] Age/Sex: 83 / F Adm Date: 3 Loc: Room: 9U6052-7 Type: ADM IN Attending Dr: Sima Hdz [...] negative unless noted below or in HPI [facility] Medical History Aneurysm Aortic. Being monitored. Per pt found at [facility] during last visit there in [...] metformin 1,000 mg tablet 1,000 mg PO BID.PUSHPA.SUPPER 01/18/22 [History Confirmed 03/05/23] oxybutynin chloride 5 mg tablet 5 mg PO BID 01/18/22 [History Confirmed 03/05/23] thyroid (pork) 60 mg tablet (SANDBLAST OPERATOR Thyroid) 60 mg PO BID 01/18/22 [History [...] % (Auto) 13.2 % (.) 03/12/23 14:45 Dubois % (Auto) 5.1 % (.) 03/12/23 14:45 Eos % (Auto) 2.0 % (.) 03/12/23 14:45 Baso % (Auto) 0.4 % (.) 03/12/23 14:45 Nucleat RBC Rel Count 0.0 /100 WBC (0-0.5) 03/12/23 14:45 Neut # (Auto) 7.0 x10E3/uL (1.8-7.7) 03/12/23 14:45 Lymph # (Auto) 1.2 x10E3/uL (1.00-4.8) 03/12/23 14:45 Dubois # (Auto) 0.5 x10E3/uL (0.0-0.8) 03/12/23 14:45 [...] pH 7.5 (5.0-9.0) 03/12/23 15:55 Ur Specific Beardsley 1.010 (1.001-1.030) 03/12/23 15:55 Urine Protein Negative [...] Hyponatremia of 128. TSH was suppressed on [place] Thyroid and has been checked twice with [...] <Electronically signed by Sima Hdz MD> 03/12/231948 [facility] Work Phone: History general Narrative - Reported* Type Description Date Medical History Hypertension Medical History Insulin Resistant Surgical History teeth extraction upper Surgical History skin cancer removal 2018 Hospitalization History see above babberly Other History of Present illness Narrative* The [...] the patient complains of medication side effects. [facility] Work Phone: History of Present [...] medication regimen. She denies medication side effects. [facility] 600 DO Work Phone: History of [...] her back in 6 months and follow-up [facility] 250 DO Work Phone: [facility]: [facility] Work Phone[facility] Work Phone: Progress note Author Wiley Beal [facility] January 21, 2022 1:42pm Note Date/Time January 21, 2022 1: 42pm [facility] [address] [place] [address] Hospitalist Progress Note Signed Patient: Steven Harding MR#: [id number] : 1940 Acct:[id number] Age/Sex: 81 / F Adm Date: 2 Loc: Room: [address] [place] [address] Type: ADM IN Attending Dr: Wiley Beal [...] of care and confirmed it with the resident/student/SANDBLAST OPERATOR. Patient was seen and examined at bedside [...] SUBCUT 01/19/23 07:59 Not Given TID.[facility] Protocol Losartan Potassium 100 mg 01/18/22 23:10 [...] 22:38 Ondansetron 4 Mg/2 Ml Vial IV-PUSH 08/09/23 22:37 Q6H PRN Nausea And Vomiting Oxybutynin [...] signed by Wiley Beal MD> 01/21/22 1342 [facility] Work Phone: Reason for referral (narrative)* Consultation (Routine) - Authorized Specialty Diagnoses / Procedures Referred By Fredis t Referred To Contact Cardiology Diagnoses Coronary artery disease involving rappahannock coronary artery of rappahannock heart without angina pectoris Procedures Follow Up In Cardiology Karli Dougherty MD [address] [facility] [address], [place] [address] [place] [id number] Karli Dougherty MD [address] [facility], [place] [address] [place] [address] Referral ID Status Reason Start Date Expiration Date V isits Requested Visits Authorized [id number] Authorized 08/31/2023 08/30/2024 1 1 [facility] Work Phone: Chief Complaint and Reason [...] Documents on File Type Date Recorded Patient 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 * Patient was recently hospitalized at [facility]. The patient was seen in Cardiology consult with subsequent cardiovascular management by [facility]. Hospitalization records have been reviewed. * Reason for Cardiology Consultation: ACS * Consulting Clinical Lab Technologist: Dr. Dougherty * Cardiovascular testing: Echo, cath with subsequent PCI * Changes to cardiovascular medical regimen at time of discharge: ASA, brilinta, lipitor lopressor, aldactone * Discharge disposition: Home * Reports admit at [facility] d/t 'kidney pain and being dehydrated'. Spironolactone [...] tomorrow * 3. Begin cardiac rehab at [facility] * 4. Lipid profile in 2 months (new statin initiation) * 5. Keep scheduled f/u in 6 weeks to reassess * 6. Obtain CT from [facility] to verify surveillance testing. * 7. RN [...] Contact Cardiology Diagnoses Coronary artery disease involving rappahannock coronary artery of rappahannock heart without angina pectoris Procedures Follow Up In Cardiology Karli Dougherty MD [address] [facility] [address], [place] [address] [place] [address] Phone: tel: fax: Karli Dougherty MD [address] [facility] [address], [place] [address] [place] [id number] Phone: tel: fax: Referral ID Status Reason Start Date Expiration Date V isits Requested Visits Authorized [id number] Authorized 08/31/2023 08/30/2024 1 1 Reason Comments Back Pain Hip Pain Care Teams (unrecognized sec tion and content) Team Status: Active Member Role Status Benjamin Puentes MD Primary Care Provider Active Team Status: Inactive Member Role Status Benjamin Puentes MD Primary Care Provider Active Hunter Dhillon PA-C Emergency Provider Active Sima Hdz MD Admit Provider Active Rufus Ricks DO Attending Provider Active Team Status: Inactive Member Role Status Benjamin Puentes MD Primary Care Provider Active Monique [...] MD Admit Provider, Attending Provi mireille Active Artists' Model Relationship Specialty Start Date End Date Priyanka Puentes MD [address] [facility] [place] [address] PCP - ACO Reach 11/03/22 Priyanka Puentes MD [address] [place] [phone] PCP - General Family Medicine 12/21/22 Karli Dougherty MD [address] [facility] [address] [place] [address] Referring Physician Cardiology 07/20/23 Artists' Model Relationship Specialty Start Date End Date Priyanka Puentes MD [address] [place] [phone] PCP - General 06/12/99 Artists' Model Relationship Specialty Start Date End Date Priyanka Puentes MD [address] [place] [phone] PCP - General 06/12/99 Artists' Model Relationship Specialty Start Date End Date Priyanka Puentes MD [address] [place] [phone] (Fax) PCP - ACO Reach 11/03/22 Priyanka Puentes MD [address] [place] [address] (Fax) PCP - General Family Medicine 12/21/22 Karli Dougherty MD [address] [place] [address] Referring Physician Cardiology 07/20/23 Artists' Model Relationship Specialty Start Date End Date Priyanka Puentes MD [address] [place] [address] (Fax) PCP - ACO Reach 11/03/22 Priyanka Puentes MD [address] [place] [address] (Fax) PCP - General Family Medicine 12/21/22 Karli Dougherty MD [address] [place] [address] Referring Physician Cardiology 07/20/23 Artists' Model Relationship Specialty Start Date End Date Priyanka Puentes MD [address] [place] [address] (Fax) PCP - ACO Reach 11/03/22 Priyanka Puentes MD [address] [place] [address] (Fax) PCP - General Family Medicine 12/21/22 Karli Dougherty MD [address] [place] [address] Referring Physician Cardiology 07/20/23 Artists' Model Relationship Specialty Start Date End Date Priyanka Puentes MD [address] [place] [address] (Fax) PCP - ACO Reach 11/03/22 Priyanka Puentes MD [address] [address] (Fax) PCP - General Family Medicine 12/21/22 Karli Dougherty MD [address] [place] [address] Referring Physician Cardiology 07/20/23 Artists' Model Relationship Specialty Start Date End Date Priyanka Puentes MD [address] [address] (Fax) PCP - ACO Reach 11/03/22 Priyanka Puentes MD [address] [address] (Fax) PCP - General Family Medicine 12/21/22 Karli Dougherty MD [address] [place] [address] Referring Physician Cardiology 07/20/23 Artists' Model Relationship Specialty Start Date End Date Priyanka Puentes MD [address] [address] (Fax) PCP - ACO Reach 11/03/22 Priyanka Puentes MD [address] [address] (Fax) PCP - General Family Medicine 12/21/22 Karli Dougherty MD [address] [place] [address] Referring Physician Cardiology 07/20/23 Artists' Model Relationship Specialty Start Date End Date Priyanka Puentes MD [address] [place] [address] PCP - ACO Reach 11/03/22 Priyanka Puentes MD [address] [place] [address] PCP - General Family Medicine 12/21/22 Karli Dougherty MD [address] [place] [address] Referring Physician Cardiology 07/20/23 INFORMATION SOURCE (unrecogn ized section and content) DATE CREATED AUTHOR 10/18/2022 [facility] DATE CREATED AUTHOR AUTHOR'S ORGANIZ ATION 02/18/2023 [employer] DATE CREATED AUTHOR AUTHOR'S ORGANIZ ATION 03/15/2023 [facility] DATE CREATED AUTHOR AUTHOR'S ORGANIZ ATION 03/18/2023 [facility] DATE CREATED AUTHOR AUTHOR'S ORGANIZ ATION 05/11/2024 [facility] DATE CREATED AUTHOR AUTHOR'S ORGANIZ ATION 05/16/2024 [facility] EPIC Goals (unrecognized section [...] BE BASED ON THE PRIMARY CLINICAL RECORDS. [facility]. provides no warranty or guarantee of the accuracy or completeness of information in this document.
--- NOTE | 2024-07-22 13:45 | PM.CN ---
Consult Note: HPI Data of Consult Patient: new to practice Consult date: 07/22/24 Requesting Physician: Delmy Conde MD Primary Care Provider: PRIYANKA PUENTES Consult Narrative Reason for consult: right hip, leg pain Narrative: 84yof who presents for evaluation. worsening right hip, leg pain. states that this was exacerbated by chiropractic manipulation several months ago. imaging reviewed, shows multilevel stenosis from l2-4, as well as multilevel facet arthropathy. right hip xr shows degenerative changes of right hip and right si joint. utilizes otc nsaids, which help more than any medication she's been given. continues in a series of provider directed home exercises >6 weeks, without lasting benefit. cc:: CC: Delmy Conde MD Review of Systems ROS Status of ROS 10 or more systems reviewed and unremarkable except as noted in history and below Meds Home Medications and Allergies Home Medications ?Medication ?Instructions ?Recorded ?Confirmed ?Type atorvastatin 80 mg tablet 80 mg PO DAILY 01/14/23 01/14/23 History clopidogrel 75 mg tablet 75 mg PO DAILY 01/14/23 01/14/23 History losartan 100 mg tablet 100 mg PO DAILY 01/14/23 01/14/23 History meclizine 50 mg tablet (Antivert) 50 mg PO TID PRN dizziness #20 tabs 01/14/23 Rx metformin 1,000 mg tablet 1,000 mg PO BID 01/14/23 01/14/23 History metoprolol tartrate 25 mg tablet 25 mg PO BID 01/14/23 01/14/23 History nifedipine 60 mg tablet,extended 60 mg PO DAILY 01/14/23 01/14/23 History release 24 hr oxybutynin chloride 5 mg tablet 5 mg PO BID 01/14/23 01/14/23 History thyroid (pork) 60 mg tablet (INSPECTOR MACHINE PARTS 60 mg PO BID 01/14/23 01/14/23 History Thyroid) Allergies Allergy/AdvReac Type Severity Reaction Status Date / Time No Known Drug Allergies Allergy Verified 01/14/23 11:45 Exam Narrative Exam Narrative: Psych-alert and oriented x 3. Attentive and appropriate, constitutionally normal, displays normal mood and affect per situation. There are no obvious deficits in memory, reasoning, or intellect.? Skin-no obvious rashes, bruising, erythema noted to the patient's area of pain.? Extremities- extremities are warm with minimal edema and palpable pulses. Lumbar-tenderness to palpation noted in the lumbar spine and paraspinal musculature. Pain is not elicited with flexion, extension, and lateral rotation of the lumbar spine. Range of motion is not diminished with these motions. Facet loading maneuvers are negative.? Strength-noted to be unremarkable with the exception of decreased strength rated at 4 out of 5 in right quadriceps femoris. Sensory-no notable sensory deficits in the bilateral lower extremities to touch or pinprick in all dermatomal distributions with the exception to decreased sensation to the right L3, 4 dermatomal distribution Hip-tenderness to palpation is noted over the right hip joint.? Pain is elicited with internal and external rotation of the hip.? Hip provocative maneuvers are positive and consistent with the patient's normal pain. Coordination remains intact.? Gait remains non-antalgic. Assessment and Plan Assessment and Plan (1) Lumbar stenosis with neurogenic claudication: (2) Osteoarthritis of right hip: Qualifiers: Osteoarthritis type: primary Qualified Code(s): M16.11 - Unilateral primary osteoarthritis, right hip Plan 84yof who presents for evaluation. failed conservative measures, as noted. imaging reviewed, as noted. given symptoms and imaging, prudent to attempt right l3-4, l4-5 tfesi under fluoroscopic guidance. may also benefit from right hip injection under fluoroscopic guidance. she is in agreement. meds reviewed, no changes. follow up after procedure.
== END 2024-07-22 12:02 | disposition home or self-care (01) ==
LOC: PM 12:02
PROVIDERS: PCP Family Medicine; Visit Provider Anesthesiology
DX: M48.062 Spinal stenosis, lumbar region with neurogenic claudication (principal); M16.11 Unilateral primary osteoarthritis, right hip
CPT/HCPCS: G0463

== ENCOUNTER 2024-08-05 09:12 | Day surgery (SDC) | payer MEDICARE, OTHER, SELFPAY ==
[2024-08-05 10:03] VITALS: BP 170/83; PULSE 63; TEMP 36.3; O2SAT 96
[2024-08-05 10:13] LABS: Glucometer 99 mg/dL (74-106)
[2024-08-05 10:51] VITALS: BP 176/81; BP 180/79; PULSE 83; PULSE 88; O2SAT 90; O2SAT 92
[2024-08-05] MEDS: DEXAMETHASONE SOD PHOS 10 MG/ML VIAL INJ (10:53)
[2024-08-05] MEDS: 0.9 % SODIUM CHLORIDE 10 ML SYRINGE - SALINE FLUSH INJ (10:53)
[2024-08-05] MEDS: BUPIVACAINE HCL 0.25% PF 25 MG/10 ML VIAL INJ (10:53)
[2024-08-05] MEDS: IOHEXOL 240 MG/ML - 10 ML VIAL 24 MG INJ (10:54)
[2024-08-05] MEDS: LIDOCAINE HCL 2% 400 MG/20 ML MDV 3 ML INJ (10:54)
--- NOTE | 2024-08-05 10:59 | P.ON_ITS ---
Date of procedure: 08/05/24 Pre-op diagnosis: Pain due to lumbar stenosis with neurogenic claudication Post-op diagnosis: same as pre-op Procedure: Procedure: Right L3-4, L4-5 transforaminal epidural steroid injection Medications: Bupivacaine 0.25% 2cc, lidocaine 2% 1cc, depomedrol 80mg The patient was seen and examined in the preoperative holding area.? Informed consent was obtained and placed on the chart.? Patient was brought to the medical procedure unit and placed in the prone position where a timeout was completed verifying the correct patient, procedure site, position, and planned special equipment using sterile aseptic technique.? Under direct fluoroscopic visualization a 25-gauge Quincke tipped spinal needle was advanced to the designated neural foramen where contrast dye was injected to show adequate spread.? The needle was inserted at level right L3-4. There was no evidence of vascular or adverse uptake.? Epidural spread was appreciated.? The above- mentioned injectate was then placed in a 1.5 mL aliquot preceded by negative aspiration.? The needle was removed. The needle was inserted and the procedure repeated at level right L4-5.? The surgery site was covered.? Patient was taken to the postprocedural recovery area and monitored for an appropriate length of time before found suitable for discharge in the accompaniment of a responsible adult. Anesthesia: Local Surgeon: Delmy Conde Pathology: none sent Condition: stable Disposition: no change
== END 2024-08-05 11:02 | disposition home or self-care (01) ==
LOC: SURGOUT 09:13
PROVIDERS: PCP Family Medicine; Visit Provider Anesthesiology
DX: M48.062 Spinal stenosis, lumbar region with neurogenic claudication (principal); E11.8 Type 2 diabetes mellitus with unspecified complications; Z79.4 Long term (current) use of insulin
CPT/HCPCS: 36415; 64483; 64484; 82948; J0665; J1100; Q9966

== ENCOUNTER 2024-08-19 09:42 | Day surgery (SDC) | payer MEDICARE, OTHER, SELFPAY ==
[2024-08-19 10:33] VITALS: BP 142/67; PULSE 67; TEMP 36.4; O2SAT 94
[2024-08-19 10:40] LABS: Glucometer 105 mg/dL (74-106)
[2024-08-19 11:20] VITALS: BP 172/69; PULSE 72; O2SAT 92
[2024-08-19] MEDS: IOHEXOL 240 MG/ML - 10 ML VIAL INJ (11:21)
[2024-08-19] MEDS: BUPIVACAINE HCL 0.25% PF 25 MG/10 ML VIAL 4 ML INJ (11:21)
[2024-08-19] MEDS: LIDOCAINE HCL 2% 400 MG/20 ML MDV INJ (11:21)
[2024-08-19] MEDS: METHYLPREDNISOLONE ACETATE 40 MG/ML VIAL INJ (11:22)
--- NOTE | 2024-08-19 11:22 | W.PM.PROCNOT ---
Date of procedure: 08/19/24 Pre-op diagnosis: Pain due to right hip osteoarthritis Post-op diagnosis: same as pre-op Procedure: Procedure: Right hip injection Medications: Bupivacaine 0.25% 3cc, depomedrol 40mg I explained the details of the procedure to the patient including the risks, benefits and alternatives. We had an informed discussion and the patient verbalized understanding and signed the consent form. All questions were answered appropriately.? A time out was performed.? After obtaining a comfortable supine position, the skin overlying the hip, subtrochanteric region, and joint space were prepped with alcohol. A sterile syringe containing the above medication was attached to a 25 guage, 3.5 inch spinal needle under strict aseptic technique. X ray was used to identify the joint space and the femoral neck on the right side.? The needle was than advanced through the subcutaneous tissue after local injection of 1% lidocaine.? The contents of the syringe were gently injected without any resistance into the joint space after contrast (isovue) outlined the appropriate area. The needle was removed and pressure was applied to the injection site to decrease the incidence of ecchymosis and hematoma formation.? A sterile bandage was applied. Post procedural instructions were given to the patient. Anesthesia: Local Surgeon: Delmy Conde Pathology: none sent Condition: stable Disposition: no change
[2024-08-19 11:23] VITALS: BP 168/72; PULSE 68; O2SAT 95
== END 2024-08-19 11:26 | disposition home or self-care (01) ==
PROVIDERS: PCP Family Medicine; Visit Provider Anesthesiology
DX: M16.11 Unilateral primary osteoarthritis, right hip (principal); E11.9 Type 2 diabetes mellitus without complications; Z79.84 Long term (current) use of oral hypoglycemic drugs
CPT/HCPCS: 20610; 36415; 77002; 82948; J0665; J1010; Q9966

== ENCOUNTER 2024-08-29 10:18 | Outpatient (OUT) | payer MEDICARE, OTHER, SELFPAY ==
--- OUTSIDE RECORDS SUMMARY | 2024-08-29 10:35 | XMS_ITS | CCD ---
Author Organization [facility] Care Team Providers Care Health And Safety Coordinator Name Role Phone Eva Panda Unavailable MD Priyanka Puentes Primary Care Provider [phone] MD Justa Westfall Admit Provider MD Wiely Beal Attending Provider [phone] DEONTE Monzon Other Provider Unavailable DO Isaiah Cordova Other Provider MD Vik Segura Other Provider [phone] MD Moshe Hernandez Other Provider MD Karli Dougherty Other Provider [phone] MD Anatoly Massey Other Provider FRANCOIS Mercado Other Provider MD Almita Asif Other Provider MD Stuart Levineammprachi Thompson Other Provider MD Lydia Kern Other Provider MD Diony Hooks Attending Provider [phone] Priyanka Puentes Unavailable Unavailable Unavailable DR [...] Unavailable MD Priyanka Puentes Primary Care Provider [phone] MD Monique Tierney Emergency Provider MD Jemal Jones Admit Provider MD Jemal Jones Attending Provider MD Chuck Chcaon Attending Provider SHANTEL Dhillon Emergency Provider MD Sima Hdz Admit Provider MD Sima Hdz Attending Provider [facility] Rufus Bravo Attending Provider Dhaval, Dr. Priyanka [...] Ricks Attending Unavailable Priyanka Puentes MD Unavailable [phone] Priyanka Puentes MD Primary Care Provider Karli Dougherty MD Unavailable [phone] Priyanka Puentes MD Primary Care Provider Priyanka Puentes MD Primary Care Provider KARLI DOUGHERTY Attending Unavailable PRIYANKA PUENTES Primary Care Unavailable KARLI DOUGHERTY Attending Unavailable KARLI DOUGHERTY Referring Unavailable PRIYANKA PUENTES Primary Care Unavailable Priyanka Puentes MD Unavailable Priyanka Puentes MD Primary Care Provider [phone] Priyanka Puentes MD Unavailable Priyanka Puentes MD Primary Care Provider PRIYANKA PUENTES Attending Unavailable PRIYANKA PUENTES Attending Unavailable PRIYANKA PUENTES Attending Unavailable PRIYANKA PUENTES Attending Unavailable PRIYANKA PUENTES Attending Unavailable PRIYANKA PUENTES Attending Unavailable Elton CHAVEZ, Delmy Park Attending Unavailable Elton CHAVEZ, Andrius Park Attending Unavailable Elton CHAVEZ, Darrylrius Park Attending Unavailable Allergies Allergy Classification Reported Allergen(s) Allergy Type Date of Onset Reaction(s) Facility (1 source) diphenhydrAMINE Drug Allergy anaphylaxis [employer] Other (7 sources) Ticagrelor; Translations: [Brilinta TABS] Drug Allergy 03-17-20 [facility] (4 sources) Codeine; Translations: [CODEINE] Drug Allergy 01-18-20 [place] (1 source) Penicillin Drug Allergy 01-19-20 22 [facility] (2 sources) Ticagrelor; Translations: [TICAGRELOR] Drug Allergy 01-25-20 22 [facility] (1 source) Antihistamines - Ethanolamine Drug allergy (disorder) 01-27-20 [facility] (2 sources) Antihistamines Allergy to substance 03-12-20 [facility] (14 sources) Calcium Citrate Drug Allergy 01-18-20 [facility] (14 sources) Cephalexin Drug Allergy 01-18-20 Hives [facility] (14 sources) Ciprofloxacin Drug Allergy 01-18-20 [facility] (17 sources) Clindamycin; Translations: [CLINDAMYCIN] Drug Allergy 01-18-20 Diarrhea [facility] (16 sources) Codeine Drug Allergy 01-18-20 Unknown [facility] (14 sources) diphenhydrAMINE Drug Allergy 01-18-20 [facility] (15 sources) Minocycline; Translations: [MINOCYCLINE] Drug Allergy 01-18-20 Diarrhea [facility] Healthcare (14 sources) Erythromycin Base Drug Allergy 01-18-20 Hives [facility] (2 sources) Minocycline Drug Allergy 01-18-20 Diarrhea [facility] Work Phone: Medications Current Medications [...] DO Active amLODIPine 5 mg oral tablet (19 sources) Dihydropyridine Calcium Channel Sarbjit Start: 01-30-2024 End: 01-28-2025 take 1 tablet by mouth in the morning amLODIPine (Norvasc) 5 MG tablet Indications: Benign essential hypertension (CMS/HCC) Take 1 tablet (5 mg) by mouth in the morning. 90 tablet 1 08/01/2024 01/28/2025 Active Start: 03-14-2023 End: 08-11-2023 amLODIPine (Norvasc) [...] B Complex Vitamins (vitamin B complex) tablet (13 sources) take 1 tablet by mouth once [...] Start: 02-15-2022 take 4 tablets by mo ut once daily Clopidogrel Bisulfate 75 MG Oral Tablet Take 4 tablets (300mg) on day #1 then take one tablet daily Quantity: 30 Refills: 11 Ordered: 15-Feb-2022 Khanh Michael Start : 15-Feb-2022 Active CRANBERRY CONCENTRATE PO (13 sources) take 1 tablet by mouth once daily CRANBERRY CONCENTRATE PO Take 1 tablet by mouth Daily Active cranberry preparation 500 mg oral capsule (1 source) Non-Standardized Food Allergenic Extract, Non-Standardized Plant Allergenic Extract take 1 capsule by mouth in the morning cranberry 500 mg capsule Take 1 capsule by mouth early in the morning.. Active gabapentin 100 mg oral capsule (9 sources) Anti-epileptic Agent Start: 05-20-20 End: 08-01-19 25 gabapentin (Neurontin) 100 MG capsule Indications: Acute right-sided low back pain with right-sided sciatica Titrate from 1 to 4 capsules three times daily as needed for pain 100 capsule 06/11/2024 08/01/2024 Discontinued (Therapy completed) levothyroxine sodium 0.112 mg oral tablet (18 sources) l-Thyroxine Start: 08-08-19 24 End: 08-01-19 26 take 1 tablet by mouth before mealtime levothyroxine (Synthroid) 112 MCG tablet Indications: Acquired hypothyroidism (CMS/HCC) Take 1 tablet (112 mcg) by mouth in the morning. Take before meals. 90 tablet 3 08/01/2024 08/01/2025 Active Start: 07-12-2023 End: 10-10-2023 take 1 tablet by mouth before mealtime levothyroxine (Synthroid) 150 MCG tablet Indications: Hypothyroidism, unspecified type (CMS/HCC) Take 1 tablet (150 mcg) by mouth in the morning. Take before meals. 90 tablet 3 07/12/2023 10/10/2023 Active Lisinopril (1 source) Angiotensin Converting Enzyme Inhibitor Lisinopril Active magnesium oxide 400 mg oral tablet (19 sources) Start: 03-07-2023 End: 08-31-2023 take 400 [...] Take with meals. 180 tablet 1 01/30/2024 Active Start: 01-18-2022 End: 08-31-2023 take 1 [...] scontinued 25 MG PO Twice daily 60 January 21, 2022 12:00am March 14, 2023 [...] Active naproxen sodium 220 mg oral tablet (14 sources) Nonsteroidal Anti-inflammatory Drug take 1 tablet by mouth twice daily as needed naproxen sodium (Aleve) 220 MG tablet Take 220 mg by mouth 2 (two) times a day as needed. 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 08/01/2024 Discontinued (Therapy completed) pramoxine hydrochloride 10 mg/ml topical cream (3 sources) Start: 08-01-2024 Pramoxine HCl 1 % cream Indications: Chronic eczema PRN 08/01/2024 Active Start: 08-01-2024 Pramoxine HCl 1 % cream Indications: Chronic eczema PRN 08/01/2024 Active predniSONE 10 mg oral tablet (11 sources) Start: 05-14-2024 End: 08-01-2024 predniSONE (Deltasone) 10 MG tablet Indications: Acute right-sided low back pain with right-sided sciatica , Right hip pain , Pain of right sacroiliac joint Every 2 day tapering dose; 5,5,4,4,3,3,2,2,1,1,0.5,0.5 31 tablet 05/14/2024 08/01/2024 Discontinued (Therapy completed) Thyroid (Pork) (Laundry Room Attendant Thyroid) 60 mg tablet (4 sources) Start: 01-18-2022 take 1 tablet by mouth twice daily Thyroid (Pork) (Laundry Room Attendant Thyroid) 60 mg tablet Active 60 MG PO Twice daily January 18, 2022 12:00am thyroid (longterm) 60 mg oral tablet (11 sources) Start: 01-18-2022 take 1 tablet by mouth twice daily Thyroid (Pork) (Laundry Room Attendant Thyroid) 60 mg tablet Active 60 MG PO Twice daily January 18, 2022 12:00am End: 08-31-2023 take 1 tablet by mouth once daily before mealtime thyroid, pork, (STAFF ANTISUBMARINE OFFICER Thyroid) 60 mg tablet Take 1 tablet [...] Date Documented Date Episodic/Chronic Acute myocardial infarction (20 sources) Myocardial infarction; Translations: [Non-ST elevation (NSTEMI) myocardial infarction] Onset: 01-20-2022 01-18-2022 Chronic Allergic reactions (2 sources) Chronic eczema; Translations: [Dermatitis, unspecified] 08-01-2024 Episodic Aortic; peripheral; and visceral artery aneurysms (14 sources) Aneurysm of infrarenal abdominal aorta ; Translations: [Infrarenal abdominal aortic aneurysm, without rupture] Onset: 01-17-2023 01-17-2023 Chronic Asthma (14 sources) Allergic asthma; Translations: [Unspecified asthma, uncomplicated] Onset: 01-17-2023 01-17-2023 Chronic Cataract (20 sources) Bilateral pseudophakia; Translations: [Presence of intraocular lens] Onset: 01-17-2023 01-17-2023 Chronic Chronic kidney disease (20 sources) Chronic kidney disease, stage 2 (mild); Translations: [Chronic kidney disease stage 2] Onset: 08-16-2022 Resolved: 08-09-2023 01-17-2023 Chronic Chronic obstructive pulmonary disease and bronchiectasis (20 sources) Simple chronic bronchitis; Translations: [Simple chronic bronchitis] Onset: 01-17-2023 01-17-2023 Chronic Conditions associated with dizziness or vertigo (9 sources) Dizziness; Translations: [Dizziness and giddiness] Onset: 03-05-2023 03-05-2023 Episodic Coronary atherosclerosis and other heart disease (20 sources) Coronary arteriosclerosis; Translations: [Atherosclerotic heart disease of [place] coronary artery without angina pectoris] Onset: 06-14-2022 02-03-2022 Chronic Diabetes mellitus without complication (1 source) Type 2 diabetes mellitus without complications; Translations: [TYPE 2 DM WITHOUT COMPLICATIONS] Onset: 01-20-2022 Chronic Diabetes mellitus without complication (20 sources) Prediabetes; Translations: [Prediabetes] Onset: 08-16-2022 01-18-2022 Episodic Diseases of white blood cells (1 source) Elevated white blood cell count, unspecified; Translations: [ELEVATED WHITE BLOOD CELL COUNT UNS] Onset: 02-02-2022 Chronic Disorders of lipid metabolism (20 sources) Mixed hyperlipidemia; Translations: [Mixed hyperlipidemia] Onset: 08-16-2022 01-17-2023 Chronic Esophageal disorders (14 sources) Gastroesophageal reflux disease without esophagitis; Translations: [Gastro-esophageal reflux disease without esophagitis] Onset: 01-17-2023 01-17-2023 Chronic Essential hypertension (20 sources) Hypertensive disorder; Translations: [Essential (primary) hypertension] Onset: 01-20-2022 11-11-2019 Chronic Fluid and electrolyte disorders (10 sources) Hypo-osmolality and hyponatremia; Translations: [Acute hyponatremia] Onset: 02-02-2022 03-05-2023 Episodic Genitourinary symptoms and ill-defined conditions (14 sources) Urge incontinence of urine; Translations: [Urge incontinence] Onset: 01-17-2023 01-17-2023 Chronic Hypertension with complications and secondary hypertension (20 sources) Hypertensive chronic kidney disease with stage 1 through stage 4 chronic kidney disease, or unspecified chronic kidney disease; Translations: [Hypertensive urgency ] Onset: 08-15-2022 Chronic Malaise and fatigue (20 sources) Chronic fatigue, unspecified; Translations: [Fatigue] Onset: 04-12-2022 Chronic Nutritional deficiencies (14 sources) Vitamin D deficiency; Translations: [Vitamin D deficiency, unspecified] Onset: 01-17-2023 01-17-2023 Chronic Osteoarthritis (20 sources) Arthritis of left knee; Translations: [Unilateral primary osteoarthritis, left knee] Onset: 07-12-2016 01-17-2023 Chronic Other and ill-defined heart disease (14 sources) Diastolic dysfunction; Translations: [Other ill-defined heart diseases] Onset: 01-17-2023 01-17-2023 Chronic Other circulatory disease (14 sources) History of endovascular stent graft for repair of abdominal aortic aneurysm; Translations: [Presence of other vascular implants and grafts] Onset: 01-17-2023 01-17-2023 Chronic Other circulatory disease (14 sources) History of insertion of iliac stent; Translations: [Presence of other vascular implants and grafts] Onset: 01-17-2023 01-17-2023 Chronic Other circulatory disease (1 source) Orthostatic hypotension; Translations: [Orthostatic hypotension] Onset: 03-05-2023 Episodic Other ear and sense organ disorders (1 source) Disorder of external ear; Translations: [Unspecified otitis externa, left ear] Onset: 01-17-2023 01-17-2023 Chronic Other lower respiratory disease (14 sources) Pulmonary granuloma; Translations: [Pulmonary fibrosis, unspecified] Onset: 01-17-2023 01-17-2023 Chronic Other lower respiratory disease (14 sources) Post-inflammatory pulmonary fibrosis; Translations: [Pulmonary fibrosis, unspecified] Onset: 03-26-2016 01-19-2023 Chronic Other lower respiratory disease (2 sources) Dyspnea on exertion; Translations: [Other forms of dyspnea] 08-31-2023 Episodic Other nervous system disorders (14 sources) Chronic pain; Translations: [Other chronic pain] Onset: 01-17-2023 01-17-2023 Chronic Other non-traumatic joint disorders (2 sources) Hip pain; Translations: [Pain in right hip] 05-14-2024 Episodic Other nutritional; endocrine; and metabolic disorders (4 sources) Obesity; Translations: [Obesity, unspecified] Chronic Other nutritional; endocrine; and metabolic disorders (16 sources) Obese class I; Translations: [Obesity, unspecified] [...] Onset: 01-20-2022 01-19-2022 Chronic Pulmonary heart disease (14 sources) Pulmonary hypertension; Translations: [Pulmonary hypertension, unspecified] Onset: 01-17-2023 01-17-2023 Chronic Retinal detachments; defects; vascular occlusion; and retinopathy (20 sources) Epiretinal membrane of right eye; Translations: [Puckering of macula, right eye] Onset: 01-17-2023 01-17-2023 Chronic Spondylosis; intervertebral disc disorders; other back problems (9 sources) Degeneration of cervical intervertebral disc; Translations: [Other cervical disc degeneration, unspecified cervical region] Onset: 07-15-2024 07-15-2024 Chronic Spondylosis; intervertebral disc disorders; other back problems (14 sources) Acute back pain with sciatica; Translations: [...] Da te Episodic/Chronic Blindness and vision defects (14 sources) Presbyopia; Translations: [Presbyopia] Onset: 01-17-2023 01-17-2023 Episodic Coronary atherosclerosis and other heart disease (20 sources) Patient post percutaneous transluminal coronary angioplasty; Translations: [Percutaneous transluminal coronary angioplasty status] Onset: 01-17-2023 01-17-2023 Episodic Heart valve disorders (14 sources) Heart murmur; Translations: [Cardiac murmur, unspecified] Onset: 01-17-2023 01-17-2023 Episodic Mood disorders (15 sources) Mood disorders Onset: 02-15-2022 Resolved: 08-30-2023 07-25-2022 Noninfectious gastroenteritis (1 source) Noninfective gastroenteritis and colitis, unspecified; Translations: [NONINFECTIVE GE AND COLITIS UNS] Onset: 02-02-2022 Episodic Nonspecific chest pain (3 sources) Chest pain, unspecified; Translations: [CHEST PAIN UNSPECIFIED] Onset: 01-18-2022 Episodic Other aftercare (1 source) Other long term care administrator (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; Translations: [OTH PRISON CURRENT DRUG THERAPY] Onset: 02-02-2022 Episodic Other aftercare (1 source) penitentiary (current) use of oral hypoglycemic drugs; Translations: [SYSTEMS SUPPORT OFFICER USE ORAL HYPOGLYCEMIC DX] Onset: 02-02-2022 Episodic Other aftercare (1 source) penitentiary (current) use of aspirin; Translations: [SYSTEMS SUPPORT OFFICER CURRENT USE OF ASPIRIN] Onset: 01-20-2022 Episodic Other aftercare (16 sources) Polypharmacy ; Translations: [Other [facility] (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] Onset: 08-07-2020 01-19-2023 Episodic Other bone disease and musculoskeletal deformities (14 sources) Osteopenia; Translations: [Other specified disorders of bone density and structure, unspecified site] Onset: 01-17-2023 01-17-2023 Episodic Other circulatory disease (1 source) Hypotension, unspecified; Translations: [HYPOTENSION UNSPECIFIED] Onset: 02-02-2022 Episodic Other circulatory disease (16 sources) Orthostatic hypotension; Translations: [Orthostatic hypotension] Onset: 01-10-2024 03-07-2023 Episodic Other circulatory disease (14 sources) H/O: cardiovascular disease; Translations: [Personal history of other diseases of the circulatory system] Onset: 04-25-2016 01-19-2023 Episodic Other connective tissue disease (14 sources) Abnormal posture; Translations: [Abnormal posture] Onset: 01-17-2023 Resolved: 08-07-2023 01-17-2023 Episodic Other connective tissue disease (14 sources) Left rotator cuff syndrome; Translations: [Unspecified rotator cuff tear or rupture of left shoulder, not specified as traumatic] Onset: 01-17-2023 01-17-2023 Episodic Other ear and sense organ disorders (13 sources) Disorder of left external ear; Translations: [Unspecified otitis externa, left ear] Onset: 01-17-2023 Resolved: 08-07-2023 08-07-2023 Chronic Other eye disorders (14 sources) Disorder of lacrimal system; Translations: [Disorder [...] 03-17-2023 Episodic Other non-epithelial cancer of skin (14 sources) Basal cell carcinoma of ear; 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] Onset: 01-17-2023 01-17-2023 Episodic Other nutritional; endocrine; and metabolic disorders (14 sources) Morbid obesity; Translations: [Morbid (severe) obesity due to excess calories] Onset: 04-25-2016 Resolved: 05-02-2023 05-02-2023 Chronic Other nutritional; endocrine; and metabolic disorders (2 sources) Body mass index (BMI) 27.0-27.9, adult; Translations: [Body mass index (BMI) 27.0-27.9, adult] Onset: 08-31-2023 Episodic Other skin disorders (14 sources) Keloid scar; Translations: [Hypertrophic scar] Onset: 01-17-2023 Resolved: 08-07-2023 01-17-2023 Episodic Residual codes; unclassified (1 source) Other specified postprocedural states; Translations: [OTH SPECIFIED POSTPROCEDURAL STATES] Onset: 02-02-2022 Episodic Screening and history of mental health and substance abuse codes (20 sources) Ex-smoker; Translations: [Personal history of tobacco use] Onset: 03-25-2016 01-19-2023 Episodic Comment on above: nicotine lozenges; Thyroid disorders (19 sources) Sick-euthyroid syndrome; Translations: [Sick-euthyroid syndrome] Onset: 04-15-2022 Resolved: 05-08-2023 Episodic Unclassified (2 sources) Onset: 08-31-2023 Resolved: 05-08-2024 08-31-2023 Viral infection (1 source) Zoster without complications Onset: 01-01-2022 Resolved: 01-01-2022 Episodic Results Test Name Value Interpretation Reference Range Facility ALL T3 FREEon 07-16-2024 Free T3 [Mass/Vol] 1.79 pg/mL Low 2.18 - 3.98 pg/mL [facility] Interpretation and review of laboratory results Abnormal [facility] ALL THYROID STIM HORMONEon 0 07-16-2024 TSH Qn 1.771 m[IU]/L [facility] No Panel Informationon 07-16 [facility] CT Lumbar spine WO contrasto n 07-11-[address] [address] [address] Scan Report Signed Patient: STEVEN HARDING MR#: [id number] : 1940 Acct:[id number] Age/Sex: 84 / F ADM Date: 07/10/24 Loc: CT Attending Dr: Priya JUAREZ Ordering Physician: Priya Patel Date of Service: 07/10/24 Procedure(s): CT lumbar spine wo con Accession Number(s): [id number] cc: PRIYANKA PUENTES [address] [address] Patient Name: STEVEN HARDING MRN: [id number] date: 1940 Sex: F Assigned Patient Location: CT Current Patient Location: Accession/Order Number: [id number] Exam Date: 07/10/2024 13:48 Report Date: 07/11/2024 [...] L3-L4, and L4-L5. Spinal canal narrowing is cpcb-gi-mexujaqs at these levels, also contributed to by [...] demineralization. 2. Multilevel lumbar spondylotic changes with abti-wp-mfmtlmas spinal canal narrowing at L2-L3, L3-L4, and L4-L5. 3. Infrarenal abdominal aortic aneurysm measures approximately 3.2 x 2.6 cm. This has mildly increased in size since 01/27/2022. Electronically authenticated by: YAO WATSON Date: 07/11/2024 13:40 Dictated By: Yao Watson M.D. Signed By: 07/11/24 1342 DD/ 1340 TD/TT: Statistical Analyst: [facility] Radiology, Radiologi MD merle - 07/11/2024 [place] [address] CT Scan Report Signed Patient: STEVEN HARDING MR#: [id number] : 1940 Acct:[id number] Age/Sex: 84 / F ADM Date: 07/10/24 Loc: CT Attending Dr: Priya JUAREZ Ordering Physician: Priya Patel Date of Service: 07/10/24 Procedure(s): CT lumbar spine wo con Accession Number(s): [id number] cc: PRIYANKA PUENTES [place] [id number] Patient Name: STEVEN HARDING MRN: [facility]:[id number] date: 1940 Sex: F Assigned Patient Location: CT Current Patient Location: Accession/Order Number: [id number] Exam Date: 07/10/2024 13:48 Report Date: 07/11/2024 [...] L3-L4, and L4-L5. Spinal canal narrowing is arny-qz-dkuqnlws at these levels, also contributed to by [...] demineralization. 2. Multilevel lumbar spondylotic changes with mtzt-fp-naryaezn spinal canal narrowing at L2-L3, L3-L4, and L4-L5. 3. Infrarenal abdominal aortic aneurysm measures approximately 3.2 x 2.6 cm. This has mildly increased in size since 01/27/2022. Electronically authenticated by: YAO WATSON Date: 07/11/2024 13:40 Dictated By: Yao Watson M.D. Signed By: 07/11/24 1342 DD/ 1340 TD/TT: Statistical Analyst: [facility] Radiology Study observation (narrative) [facility] CT Lumbar spine WO contrastO rdered By: Radiologist Radiology on 07-11-2024 [facility] Work Phone: ALL LIPID PROFILE (FASTING)o n 05-17-2024 CHOL HDL RATIO 1.8 [facility] Comment on above: 3.3 - 4.4 LOW RISK 4.4 - 7.1 AVERAGE RISK 7.1 - 11.0 MODERATE RISK >11.0 HIGH RISK Cholesterol [Mass/Vol] 144 mg/dL NINF - 200 mg/dL [facility] Cholesterol in HDL [Mass/Vol] 80 mg/dL High 40 - 60 mg/dL [facility] Comment on above: > or =60 mg/dl - LOW CARDIOVASCULAR RISK <40 mg/dl - HIGH CARDIOVASCULAR RISK Magnesium [Mass/Vol] 52 mg/dL [facility] Comment on above: <100 mg/dl OPTIMAL 100-129 mg/dl NEAR OR ABOVE OPTIMAL 130-159 mg/dl BORDERLINE HIGH 160-189 mg/dl HIGH >190 mg/dl VERY HIGH Magnesium [Mass/Vol] 12.2 mg[facility] Triglyceride [Mass/Vol] 61 mg/dL NINF - 150 mg/dL [facility] CMP (CMP) (FOR REMOTE FH C USE)on 05-17-2024 Albumin [Mass/Vol] 4 g/dL 3.4 - 5.0 g/dL [facility] ALBUMIN GLOBULIN RATIO 1.3 NO [facility] ALP [Catalytic activity/Vol] 48 U/L 46 - 116 U/L [facility] ALT [Catalytic activity/Vol] 24 U/L 14 - 59 U/L [facility] Anion gap [Moles/Vol] 13.4 mmol/L NO [facility] AST [Catalytic activity/Vol] 13 U/L Low 15 - 37 U/L [facility] Bilirubin [Mass/Vol] 0.6 mg/dL 0.2 - 1 .0 mg/dL [facility] Calcium [Mass/Vol] 9.1 mg/dL 8.5 - 10. 1 mg/dL [facility] Chloride [Moles/Vol] 97 mmol/L Low 98 - 10 7 mmol/L [facility] CO2 [Moles/Vol] 28.9 mmol/L 21.0 - 32.0 mmol/L [facility] Creatinine [Mass/Vol] 1.12 mg/dL High 0.55 - 1.02 mg/dL [facility] GFR/1.73 sq M.predicted CKD-EPI (S/P/Bld) [Vol rate/Area] 56 Low >=60 mL/min/1.7 3m 2 [facility] Globulin (S) [Mass/Vol] 3.2 g/dL [facility] Glucose [Mass/Vol] 102 mg/dL 74 - 106 mg/dL [facility] Potassium [Moles/Vol] 4.3 mmol/L 3.5 - 5.1 mmol/L [facility] Protein [Mass/Vol] 7.2 g/dL 6.4 - 8.2 g[facility] Sodium [Moles/Vol] 135 mmol/L Low 136 - 145 mmol/L [facility] TBH EGFR-NON AF AZERBAIJANI 47 Low >=60 mL/min/1.7 3m 2 [facility] Urea nitrogen [Mass/Vol] 22 mg/dL High 7.0 - 18.0 mg/dL [facility] Urea nitrogen/Creatinine [Mass ratio] 19.6 mg/mg [facility] No Panel Informationon 05-17 Interpretation and review of laboratory results Abnormal [facility] HEM[facility] A1Con 024 Glucose [Mass/Vol] 111 mg/dL [facility] HbA1c (Bld) [Mass fraction] 5.5 % 4.5 - 6.2 % [facility] Comment on above: ADA RECOMMENDED LIMI T 4.0 - 6.0 ADA THERAPEUTIC TARGET < 7.0 ACTION SUGGESTED > 7.0 [facility] Basic Metabolic Panelon 10-0 Anion gap [Moles/Vol] 9.8 mmol/L Normal 6.0-15.0 [facility] Comment on above: Performed By: #### B STAFF ANTISUBMARINE OFFICER, BMP, PT, PTT, HS TROP, CBC, TSH3, CK #### [facility] [address] Calcium [Mass/Vol] 8.3 mg/dL Low 8.6-10.3 [facility] Comment on above: Performed By: #### B STAFF ANTISUBMARINE OFFICER, BMP, PT, PTT, HS TROP, CBC, TSH3, CK #### [facility] [address] Chloride [Moles/Vol] 101 mmol/L Normal 98-107 [facility] Comment on above: Performed By: #### B STAFF ANTISUBMARINE OFFICER, BMP, PT, PTT, HS TROP, CBC, TSH3, CK #### [facility] [address] CO2 [Moles/Vol] 23.6 mmol/L Normal 21.0-31.0 [facility] Comment on above: Performed By: #### B STAFF ANTISUBMARINE OFFICER, BMP, PT, PTT, HS TROP, CBC, TSH3, CK #### [facility] [address] Creatinine [Mass/Vol] 0.70 mg/dL Normal 0.60-1.20 [facility] Comment on above: Performed By: #### B STAFF ANTISUBMARINE OFFICER, BMP, PT, PTT, HS TROP, CBC, TSH3, CK #### [facility] [address] Creatinine Clr Calc Pharmacy 48.88 [facility] Comment on above: Performed By: #### B STAFF ANTISUBMARINE OFFICER, BMP, PT, PTT, HS TROP, CBC, TSH3, CK #### [address] GFR/1.73 sq M.predicted MDRD (S/P/Bld) [Vol rate/Area] mL/min/{1.73_m2} [facility] Comment on above: Performed By: #### B STAFF ANTISUBMARINE OFFICER, BMP, PT, PTT, HS TROP, CBC, TSH3, CK #### [address] Glucose [Mass/Vol] 84 mg/dL Normal 70-100 [facility] Comment on above: Result Comment: [facility] Glucose Reference Range is dependent on time and content of last meal. Glucose of more than 200 mg/dL in a nonstressed, ambulatory subject supports the diagnosis of Diabetes Mellitus. ADA recommended reference range Performed By: #### B STAFF ANTISUBMARINE OFFICER, BMP, PT, PTT, HS TROP, CBC, TSH3, CK #### [address] Potassium [Moles/Vol] 4.4 mmol/L Normal 3.5-5.1 [facility] Comment on above: Performed By: #### B STAFF ANTISUBMARINE OFFICER, BMP, PT, PTT, HS TROP, CBC, TSH3, CK #### [address] Sodium [Moles/Vol] 130 mmol/L Low 136-145 [facility] Comment on above: Performed By: #### B STAFF ANTISUBMARINE OFFICER, BMP, PT, PTT, HS TROP, CBC, TSH3, CK #### [address] Urea nitrogen [Mass/Vol] 8 mg/dL Normal 7-25 [facility] Comment on above: Performed By: #### B STAFF ANTISUBMARINE OFFICER, BMP, PT, PTT, HS TROP, CBC, TSH3, CK #### [facility] [address] [place] [address] [place] Calcium [Mass/volume] in Ser um or PlasmaOrdered By: Rufus Ricks on 03-14-2023 Calcium [Mass/Vol] 8.3 mg/dL 8.6-10.3 [facility] Carbon dioxide, total [Moles /volume] in Serum or PlasmaOrdered By: Rufus Ricks on 03-14-2023 CO2 [Moles/Vol] 23.6 mmol/L 21.0-31.0 [facility] Chloride [Moles/volume] in S yamilex or PlasmaOrdered By: Rufus ClemensRicks on 03-14-2023 Chloride [Moles/Vol] 101 mmol/L 98-107 [facility] Creatinine [Mass/volume] in Serum or PlasmaOrdered By: Rufus Ricks on 03-14-2023 Creatinine [Mass/Vol] 0.70 mg/dL 0.60-1.20 [facility] Free T4 (Free Thyroxine)on Free T4 [Mass/Vol] 0.72 ng/dL Normal 0.61-1.12 [facility] Comment on above: Performed By: #### B STAFF ANTISUBMARINE OFFICER, BMP, PT, PTT, HS TROP, CBC, TSH3, CK #### [facility] [address] [place] [address] [facility] Glucose [Mass/volume] in Ser um or PlasmaOrdered By: Rufus Ricks on 03-14-2023 Glucose [Mass/Vol] 84 mg/dL 70-100 [facility] Comment on above: ADA recommended refe rence rangeRandom Glucose Reference Range is dependent on time and content of last meal. Glucose of more than 200 mg/dL in a nonstressed, ambulatory subject supports the diagnosis of Diabetes Mellitus. No Panel InformationOrdered By: Rufus Ricks on 03-14-2023 Estimated GFR (CKD-EPI) > 60.0 mL/Min [facility] Creatinine Clearance (Chem 48.88 [facility] Potassium [Moles/volume] in Serum or PlasmaOrdered By: Rufus Ricks on 03-14-2023 Potassium [Moles/Vol] 4.4 mmol/L 3.5-5.1 [facility] Serum or plasma anion gap de terminationOrdered By: [facility] on 03-14-2023 Anion gap [Moles/Vol] 9.8 mmol/L 6.0-15.0 [facility] Sodium [Moles/volume] in Ser um or PlasmaOrdered By: [facility] on 03-14-2023 Sodium [Moles/Vol] 130 mmol/L 136-145 [facility] Thyroid Stimulating Hormoneo n 03-14-2023 TSH Qn 0.04 m[IU]/L Low 0.45-5.33 [facility] Comment on above: Result Comment: PERF ORMED BY: [facility] [address] [place] [address] PATHOLOGIST SUPERVISOR [employer] RAQUEL LOPEZ M.D. Performed By: #### B STAFF ANTISUBMARINE OFFICER, BMP, PT, PTT, HS TROP, CBC, TSH3, CK #### [facility] [address] [place] [address] [facility] Thyrotropin [Units/volume] i n Serum or PlasmaOrdered By: [facility] on 03-14-2023 TSH Qn 0.04 m[IU]/L 0.45-5.33 [facility] Thyroxine (T4) free [Mass/vo lume] in Serum or PlasmaOrdered By: [facility] on 03-14-2023 Free T4 [Mass/Vol] 0.72 ng/dL 0.61-1.12 [facility] Triiodothyronine (T3) Freeon 03-14-2023 Triiodothyronine (T3) Free 2.85 pg/mL Normal 2.50-3.90 [facility] Comment on above: Result Comment: PERF ORMED BY: [facility] [address] [place] [address] PATHOLOGIST SUPERVISOR [employer] RAQUEL LOPEZ M.D. Performed By: #### B STAFF ANTISUBMARINE OFFICER, BMP, PT, PTT, HS TROP, CBC, TSH3, CK #### [facility] [address] [place] [address] [facility] Triiodothyronine (T3) Free [ Mass/volume] in Serum or PlasmaOrdered By: Rufus Ricks on 03-14-2023 Free T3 [Mass/Vol] 2.85 pg/mL 2.50-3.90 [facility] Urea nitrogen [Mass/volume] in Serum or PlasmaOrdered By: Rufus Ricks on 03-14-2023 Urea nitrogen [Mass/Vol] 8 mg/dL 7-25 [facility] Basic Metabolic Panelon 100 Anion gap [Moles/Vol] 13.4 mmol/L Normal 6.0-15.0 [facility] Comment on above: Performed By: #### B STAFF ANTISUBMARINE OFFICER, BMP, PT, PTT, HS TROP, CBC, TSH3, CK #### [facility] [address] Calcium [Mass/Vol] 9.1 mg/dL Normal 8.6-10.3 [facility] Comment on above: Performed By: #### B STAFF ANTISUBMARINE OFFICER, BMP, PT, PTT, HS TROP, CBC, TSH3, CK #### [facility] [address] Chloride [Moles/Vol] 93 mmol/L Low 98-107 [facility] Comment on above: Performed By: #### B STAFF ANTISUBMARINE OFFICER, BMP, PT, PTT, HS TROP, CBC, TSH3, CK #### [facility] [address] CO2 [Moles/Vol] 25.0 mmol/L Normal 21.0-31.0 [facility] Comment on above: Performed By: #### B STAFF ANTISUBMARINE OFFICER, BMP, PT, PTT, HS TROP, CBC, TSH3, CK #### [facility] [address] Creatinine [Mass/Vol] 0.88 mg/dL Normal 0.60-1.20 [facility] Comment on above: Performed By: #### B STAFF ANTISUBMARINE OFFICER, BMP, PT, PTT, HS TROP, CBC, TSH3, CK #### [facility] [address] [place] [address] [place] Creatinine Clr Calc Pharmacy 44.44 [facility] Comment on above: Result Comment: PERF ORMED BY: [place] [address] PATHOLOGIST SUPERVISOR [employer] RAQUEL LOPEZ M.D. Performed By: #### B STAFF ANTISUBMARINE OFFICER, BMP, PT, PTT, HS TROP, CBC, TSH3, CK #### [address] GFR/1.73 sq M.predicted MDRD (S/P/Bld) [Vol rate/Area] mL/min/{1.73_m2} Normal [facility] Comment on above: Performed By: #### B STAFF ANTISUBMARINE OFFICER, BMP, PT, PTT, HS TROP, CBC, TSH3, CK #### [address] Glucose [Mass/Vol] 97 mg/dL Normal 70-100 [facility] Comment on above: Result Comment: [facility] Glucose Reference Range is dependent on time and content of last meal. Glucose of more than 200 mg/dL in a nonstressed, ambulatory subject supports the diagnosis of Diabetes Mellitus. ADA recommended reference range Performed By: #### B STAFF ANTISUBMARINE OFFICER, BMP, PT, PTT, HS TROP, CBC, TSH3, CK #### [address] Potassium [Moles/Vol] 4.4 mmol/L Normal 3.5-5.1 [facility] Comment on above: Performed By: #### B STAFF ANTISUBMARINE OFFICER, BMP, PT, PTT, HS TROP, CBC, TSH3, CK #### [address] Sodium [Moles/Vol] 127 mmol/L Low 136-145 [facility] Comment on above: Performed By: #### B STAFF ANTISUBMARINE OFFICER, BMP, PT, PTT, HS TROP, CBC, TSH3, CK #### [address] Urea nitrogen [Mass/Vol] 9 mg/dL Normal 7-25 [facility] Comment on above: Performed By: #### B STAFF ANTISUBMARINE OFFICER, BMP, PT, PTT, HS TROP, CBC, TSH3, CK #### [facility] [address] [place] [id number] [facility] Activated partial thrombopla stin time (aPTT) in platelet poor plasma by coagulation aOrdered By: Hunter Dhillon on 03-12-2023 aPTT Coag (PPP) [Time] 26.1 s 25.1-36.5 [facility] Comment on above: A hematocrit value g reater than 55% may lead to inaccurate results in coagulation testing. Patients having hematocrit values >55% require a special collection tube for coagulation studies. Please contact the laboratory at [phone] for redraw instructions. Alanine aminotransferase [En zymatic activity/volume] in Serum or PlasmaOrdered By: Hunter Dhillon on 03-12-2023 ALT [Catalytic activity/Vol] 14 U/L 7-52 [facility] Albumin [Mass/volume] in Ser um or Plasma by Bromocresol green (BCG) dye binding methoOrdered By: Hunter Dhillon on 03-12-2023 Albumin BCG dye [Mass/Vol] 4.1 g/dL 3.5-5.7 [facility] Alkaline phosphatase [Enzyma tic activity/volume] in Serum or PlasmaOrdered By: Hunter Dhillon on 03-12-2023 ALP [Catalytic activity/Vol] 40 U/L 34-104 [facility] Aspartate aminotransferase [ Enzymatic activity/volume] in Serum or PlasmaOrdered By: Hunter Dhillon on 03-12-2023 AST [Catalytic activity/Vol] 15 U/L 13-39 [facility] Automated erythrocytes count in urine sediment (number/area)Ordered By: Hunter Dhillon on 03-12-2023 RBC Auto (Urine sed) [#/Area] None seen [HPF] 0-4 [facility] Automated leukocytes count i n urine sediment (number/area)Ordered By: Hunter Dhillon on 03-12-2023 WBC Auto (Urine sed) [#/Area] 5-9 [HPF] 0-4 [facility] B-Type Natriuretic Peptideon 03-12-2023 Natriuretic peptide B (Bld) [Mass/Vol] 83.0 pg/mL Normal 5-100 [facility] Comment on above: Result Comment: PERF ORMED BY: [facility] [address] [place] [address] PATHOLOGIST SUPERVISOR [employer] RAQUEL LOPEZ M.D. Performed By: #### B STAFF ANTISUBMARINE OFFICER, BMP, PT, PTT, HS TROP, CBC, TSH3, CK #### [address] Basic Metabolic Panelon 10-0 Anion gap [Moles/Vol] 13.3 mmol/L Normal 6.0-15.0 [facility] Comment on above: Performed By: #### B STAFF ANTISUBMARINE OFFICER, BMP, PT, PTT, HS TROP, CBC, TSH3, CK #### [facility] [address] Calcium [Mass/Vol] 9.2 mg/dL Normal 8.6-10.3 [facility] Comment on above: Performed By: #### B STAFF ANTISUBMARINE OFFICER, BMP, PT, PTT, HS TROP, CBC, TSH3, CK #### [address] Chloride [Moles/Vol] 98 mmol/L Normal 98-107 [facility] Comment on above: Performed By: #### B STAFF ANTISUBMARINE OFFICER, BMP, PT, PTT, HS TROP, CBC, TSH3, CK #### [address] CO2 [Moles/Vol] 21.2 mmol/L Normal 21.0-31.0 [facility] Comment on above: Performed By: #### B STAFF ANTISUBMARINE OFFICER, BMP, PT, PTT, HS TROP, CBC, TSH3, CK #### [facility] [address] Creatinine [Mass/Vol] 0.92 mg/dL Normal 0.60-1.20 [facility] Comment on above: Performed By: #### B STAFF ANTISUBMARINE OFFICER, BMP, PT, PTT, HS TROP, CBC, TSH3, CK #### [address] Creatinine Clr Calc Pharmacy 41.[address] [facility] Comment on above: Performed By: #### B STAFF ANTISUBMARINE OFFICER, BMP, PT, PTT, HS TROP, CBC, TSH3, CK #### [facility] [address] GFR/1.73 sq M.predicted MDRD (S/P/Bld) [Vol rate/Area] mL/min/{1.73_m2} Normal [facility] Comment on above: Performed By: #### B STAFF ANTISUBMARINE OFFICER, BMP, PT, PTT, HS TROP, CBC, TSH3, CK #### [facility] [address] Glucose [Mass/Vol] 87 mg/dL Normal 70-100 [facility] Comment on above: Result Comment: [facility] Glucose Reference Range is dependent on time and content of last meal. Glucose of more than 200 mg/dL in a nonstressed, ambulatory subject supports the diagnosis of Diabetes Mellitus. ADA recommended reference range Performed By: #### B STAFF ANTISUBMARINE OFFICER, BMP, PT, PTT, HS TROP, CBC, TSH3, CK #### [address] Potassium [Moles/Vol] 4.5 mmol/L Normal 3.5-5.1 [facility] Comment on above: Performed By: #### B STAFF ANTISUBMARINE OFFICER, BMP, PT, PTT, HS TROP, CBC, TSH3, CK #### [address] Sodium [Moles/Vol] 128 mmol/L Low 136-145 [facility] Comment on above: Performed By: #### B STAFF ANTISUBMARINE OFFICER, BMP, PT, PTT, HS TROP, CBC, TSH3, CK #### [address] Urea nitrogen [Mass/Vol] 11 mg/dL Normal 7-25 [facility] Comment on above: Performed By: #### B STAFF ANTISUBMARINE OFFICER, BMP, PT, PTT, HS TROP, CBC, TSH3, CK #### [address] Basophils Auto (Bld) [#/Vol] Ordered By: Hunter Dhillon on 03-12-2023 Basophils (Bld) [#/Vol] 0.0 10*3/uL 0.0-0.2 [facility] Basophils/100 WBC Auto (Bld) Ordered By: Hunter Dhillon on 03-12-2023 Basophils/100 WBC (Bld) 0.4 % . [facility] Bilirubin Auto test strip Ql (U)Ordered By: Hunter Dhillon on 03-12-2023 Bilirubin Ql (U) Negative Negative [facility] Bilirubin.direct [Mass/volum e] in Serum or PlasmaOrdered By: Hunter Dhillon on 03-12-2023 Bilirubin.direct [Mass/Vol] 0.10 mg/dL 0.03-0.18 [facility] Bilirubin.total [Mass/volume ] in Serum or PlasmaOrdered By: Hunter Dhillon on 03-12-2023 Bilirubin [Mass/Vol] 0.4 mg/dL 0.3-1.0 [facility] Calcium [Mass/volume] in Ser um or PlasmaOrdered By: Hunter Dhillon on 03-12-2023 Calcium [Mass/Vol] 9.2 mg/dL 8.6-10.3 [facility] Carbon dioxide, total [Moles /volume] in Serum or PlasmaOrdered By: Hunter Dhillon on 03-12-2023 CO2 [Moles/Vol] 21.2 mmol/L 21.0-31.0 [facility] Chloride [Moles/volume] in S yamilex or PlasmaOrdered By: Hunter Dhillon on 03-12-2023 Chloride [Moles/Vol] 98 mmol/L 98-107 [facility] Complete Blood Count Auto Di ffon 03-12-2023 Basophils (Bld) [#/Vol] 0.0 10*3/uL Normal 0.0-0.2 [facility] Comment on above: Result Comment: PERF ORMED BY: [place] [address] PATHOLOGIST SUPERVISOR [employer] RAQUEL LOPEZ M.D. Performed By: #### B STAFF ANTISUBMARINE OFFICER, BMP, PT, PTT, HS TROP, CBC, TSH3, CK #### [facility] [address] Basophils/100 WBC (Bld) 0.4 % Normal . [facility] Comment on above: Performed By: #### B STAFF ANTISUBMARINE OFFICER, BMP, PT, PTT, HS TROP, CBC, TSH3, CK #### [address] Eosinophils (Bld) [#/Vol] 0.2 10*3/uL Normal 0.0-0.45 [facility] Comment on above: Performed By: #### B STAFF ANTISUBMARINE OFFICER, BMP, PT, PTT, HS TROP, CBC, TSH3, CK #### [address] Eosinophils/100 WBC (Bld) 2.0 % Normal . [facility] Comment on above: Performed By: #### B STAFF ANTISUBMARINE OFFICER, BMP, PT, PTT, HS TROP, CBC, TSH3, CK #### [address] Erythrocyte distribution width (RBC) [Ratio] 12.6 % Normal 11.9-15.3 [facility] Comment on above: Performed By: #### B STAFF ANTISUBMARINE OFFICER, BMP, PT, PTT, HS TROP, CBC, TSH3, CK #### [address] Hematocrit (Bld) [Volume fraction] 35.5 % Normal 34.0-46.4 [facility] Comment on above: Performed By: #### B STAFF ANTISUBMARINE OFFICER, BMP, PT, PTT, HS TROP, CBC, TSH3, CK #### [address] Hemoglobin (Bld) [Mass/Vol] 12.4 g/dL Normal 11.8-15.4 [facility] Comment on above: Performed By: #### B STAFF ANTISUBMARINE OFFICER, BMP, PT, PTT, HS TROP, CBC, TSH3, CK #### [address] Lymphocytes (Bld) [#/Vol] 1.2 10*3/uL Normal 1.00-4.8 [facility] Comment on above: Performed By: #### B STAFF ANTISUBMARINE OFFICER, BMP, PT, PTT, HS TROP, CBC, TSH3, CK #### [address] Lymphocytes/100 WBC (Bld) 13.2 % Normal . [facility] Comment on above: Performed By: #### B STAFF ANTISUBMARINE OFFICER, BMP, PT, PTT, HS TROP, CBC, TSH3, CK #### [address] MCH (RBC) [Entitic mass] 31.9 pg Normal 24.7-34.3 [facility] Comment on above: Performed By: #### B STAFF ANTISUBMARINE OFFICER, BMP, PT, PTT, HS TROP, CBC, TSH3, CK #### [address] MCV (RBC) [Entitic vol] 91.8 fL Normal 80-100 [facility] Comment on above: Performed By: #### B STAFF ANTISUBMARINE OFFICER, BMP, PT, PTT, HS TROP, CBC, TSH3, CK #### [address] Mean Corpuscular HGB Conc 34.7 g/dL Normal 32.0-35.0 [facility] Comment on above: Performed By: #### B STAFF ANTISUBMARINE OFFICER, BMP, PT, PTT, HS TROP, CBC, TSH3, CK #### [address] Monocytes (Bld) [#/Vol] 0.5 10*3/uL Normal 0.0-0.8 [facility] Comment on above: Performed By: #### B STAFF ANTISUBMARINE OFFICER, BMP, PT, PTT, HS TROP, CBC, TSH3, CK #### [address] Monocytes/100 WBC (Bld) 17.50 % Normal 0.00-20.00 [facility] Comment on above: Performed By: #### B STAFF ANTISUBMARINE OFFICER, BMP, PT, PTT, HS TROP, CBC, TSH3, CK #### [address] Monocytes/100 WBC (Bld) 5.1 % Normal . [facility] Comment on above: Performed By: #### B STAFF ANTISUBMARINE OFFICER, BMP, PT, PTT, HS TROP, CBC, TSH3, CK #### [facility] [address] Neutrophils (Bld) [#/Vol] 7.0 10*3/uL Normal 1.8-7.7 [facility] Comment on above: Performed By: #### B STAFF ANTISUBMARINE OFFICER, BMP, PT, PTT, HS TROP, CBC, TSH3, CK #### [facility] [address] Neutrophils/100 WBC (Bld) 79.3 % Normal . [facility] Comment on above: Performed By: #### B STAFF ANTISUBMARINE OFFICER, BMP, PT, PTT, HS TROP, CBC, TSH3, CK #### [facility] [address] NRBC% 0.0 /100{WBC} Normal 0-0.5 [facility] Comment on above: Performed By: #### B STAFF ANTISUBMARINE OFFICER, BMP, PT, PTT, HS TROP, CBC, TSH3, CK #### [address] Platelet mean volume (Bld) [Entitic vol] 7.2 fL Normal 6.3-10.7 [facility] Comment on above: Performed By: #### B STAFF ANTISUBMARINE OFFICER, BMP, PT, PTT, HS TROP, CBC, TSH3, CK #### [address] Platelets (Bld) [#/Vol] 237 10*3/uL Normal 150-450 [facility] Comment on above: Performed By: #### B STAFF ANTISUBMARINE OFFICER, BMP, PT, PTT, HS TROP, CBC, TSH3, CK #### [address] RBC (Bld) [#/Vol] 3.87 10*6/uL Normal 3.60-5.00 [facility] Comment on above: Performed By: #### B STAFF ANTISUBMARINE OFFICER, BMP, PT, PTT, HS TROP, CBC, TSH3, CK #### [address] WBC (Bld) [#/Vol] 8.9 10*3/uL Normal 3.8-11.6 [facility] Comment on above: Performed By: #### B STAFF ANTISUBMARINE OFFICER, BMP, PT, PTT, HS TROP, CBC, TSH3, CK #### [facility] [address] [place] [id number] [place] Creatine Kinaseon 03-12-2023 CK [Catalytic activity/Vol] 20 U/L Low [facility] Comment on above: Performed By: #### B STAFF ANTISUBMARINE OFFICER, BMP, PT, PTT, HS TROP, CBC, TSH3, CK #### [facility] [address] [place] [address] [place] Creatine kinase [Enzymatic a ctivity/volume] in Serum or PlasmaOrdered By: Hunter Dhillon on 03-12-2023 CK [Catalytic activity/Vol] 20 U/L [facility] Creatinine [Mass/volume] in Serum or PlasmaOrdered By: Hunter Dhillon on 03-12-2023 Creatinine [Mass/Vol] 0.92 mg/dL 0.60-1.20 [facility] Dipstick and Microscopicon 1 Appearance (U) Slightly Cloudy Critically abnormal Clear [facility] Comment on above: Order Comment: Name Collection Type:: Clean-Voided Midstream Performed By: #### A DDONUAPLUS #### [address] Bacteria,Urine 1+ High None Seen [facility] Comment on above: Order Comment: Name Collection Type:: Clean-Voided Midstream Result Comment: PERF ORMED BY: [address] [place] [address] PATHOLOGIST SUPERVISOR [employer] RAQUEL LOPEZ M.D. Performed By: #### A DDONUAPLUS #### [place] [address] [place] Bilirubin,Urine Negative Normal Negative [facility] Comment on above: Order Comment: Name Collection Type:: Clean-Voided Midstream Performed By: #### A DDONUAPLUS #### [place] [address] [place] Color (U) Yellow Normal Yellow [facility] Comment on above: Order Comment: Name Collection Type:: Clean-Voided Midstream Performed By: #### A DDONUAPLUS #### [address] Glucose Ql (U) Normal Normal Normal [facility] Comment on above: Order Comment: Name Collection Type:: Clean-Voided Midstream Performed By: #### A DDONUAPLUS #### [address] Ketones Ql (U) Negative Normal Negative [facility] Comment on above: Order Comment: Name Collection Type:: Clean-Voided Midstream Performed By: #### A DDONUAPLUS #### [address] Leukocyte esterase Test strip Ql (U) 3+ High Negative [facility] Comment on above: Order Comment: Name Collection Type:: Clean-Voided Midstream Performed By: #### A DDONUAPLUS #### [address] Nitrite,Urine Negative Normal Negative [facility] Comment on above: Order Comment: Name Collection Type:: Clean-Voided Midstream Performed By: #### A DDONUAPLUS #### [address] Occult Blood,Urine Negative Normal Negative [facility] Comment on above: Order Comment: Name Collection Type:: Clean-Voided Midstream Result Comment: PERF ORMED BY: [place], [place] [id number] PATHOLOGIST SUPERVISOR POST WAVE RAQUEL LOPEZ M.D. Performed By: #### A DDONUAPLUS #### [place] [address] [place] pH (U) 7.5 [pH] Normal 5.0-9.0 [facility] Comment on above: Order Comment: Name Collection Type:: Clean-Voided Midstream Performed By: #### A DDONUAPLUS #### [place] [address] [place] Protein,Urine Negative Normal Negative [facility] Comment on above: Order Comment: Name Collection Type:: Clean-Voided Midstream Performed By: #### A DDONUAPLUS #### [facility] [address] [place] [address] [place] RBC,Urine None Seen Normal 0-4 [facility] Comment on above: Order Comment: Name Collection Type:: Clean-Voided Midstream Performed By: #### A DDONUAPLUS #### [place] [address] [place] Specificy [place],Urine 1.010 Normal 1.001-1.[address] [facility] Comment on above: Order Comment: Name Collection Type:: Clean-Voided Midstream Performed By: #### A DDONUAPLUS #### [address] Squamous Epithelial Cell,Urine 5-9 High 0-2 [facility] Comment on above: Order Comment: Name Collection Type:: Clean-Voided Midstream Performed By: #### A DDONUAPLUS #### [place] [address] [place] Urobilinogen,Urine Normal Normal Normal [facility] Comment on above: Order Comment: Name Collection Type:: Clean-Voided Midstream Performed By: #### A DDONUAPLUS #### [place] [id number] [place] WBC,Urine 5-9 High 0-4 [facility] Comment on above: Order Comment: Name Collection Type:: Clean-Voided Midstream Performed By: #### A DDONUAPLUS #### [place] [id number] [place] ECG 12 lead ECGon 03-12-2023 ECG 12 lead ECG [facility] [place] [address] [place] [address] Electrocardiograph Report Signed Patient: Steven Harding MR#: [id number] 1 : 1940 Acct:[id number] Age/Sex: 83 / F ADM Date: 03/12/23 Loc: Room: [address] [place] [address] Type: ADM INOo Attending Dr: Sima dHz MD Ordering Provider: Hunter Dhillon PA-C Date [...] longer present Confirmed by Zane Michael DO ([id number]) on 03/13/2023 8:21:27 AM Referred By: Electronically Signed By:Zane Michael DO Transcribed By: MUS Signed By Zane Michael DO [address] [facility] Eosinophils Auto (Bld) [#/Vo l]Ordered By: Hunter Dhillon on 03-12-2023 Eosinophils (Bld) [#/Vol] 0.2 10*3/uL 0.0-0.45 [facility] Eosinophils/100 WBC Auto (Bl d)Ordered By: Hunter Dhillon on 03-12-2023 Eosinophils/100 WBC (Bld) 2.0 % . [facility] Erythrocyte distribution wid th Auto (RBC) [Ratio]Ordered By: Hunter Dhillon on 03-12-2023 Erythrocyte distribution width (RBC) [Ratio] 12.6 % 11.9-15.3 [facility] Globulin Calc (S) [Mass/Vol] Ordered By: Hunter Dhillon on 03-12-2023 Globulin (S) [Mass/Vol] 2.2 g/dL [facility] Glucose [Mass/volume] in Ser um or PlasmaOrdered By: Hunter Dhillon on 03-12-2023 Glucose [Mass/Vol] 87 mg/dL 70-100 [facility] Comment on above: ADA recommended refe rence rangeRandom Glucose Reference Range is dependent on time and content of last meal. Glucose of more than 200 mg/dL in a nonstressed, ambulatory subject supports the diagnosis of Diabetes Mellitus. Hematocrit Auto (Bld) [Volum e fraction]Ordered By: Hunter Dhillon on 03-12-2023 Hematocrit (Bld) [Volume fraction] 35.5 % 34.0-46.4 [facility] Hemoglobin [Mass/volume] in BloodOrdered By: Hunter Dhillon on 03-12-2023 Hemoglobin (Bld) [Mass/Vol] 12.4 g/dL 11.8-15.4 [facility] Hepatic Panelon 03-12-2023 Albumin [Mass/Vol] 4.1 g/dL Normal 3.5-5.7 [facility] Comment on above: Performed By: #### B STAFF ANTISUBMARINE OFFICER, BMP, PT, PTT, HS TROP, CBC, TSH3, CK #### [facility] [address] Albumin/Globulin [Mass ratio] 1.9 {ratio} Normal [facility] Comment on above: Performed By: #### B STAFF ANTISUBMARINE OFFICER, BMP, PT, PTT, HS TROP, CBC, TSH3, CK #### [facility] [address] ALP [Catalytic activity/Vol] 40 U/L Normal 34-104 [facility] Comment on above: Performed By: #### B STAFF ANTISUBMARINE OFFICER, BMP, PT, PTT, HS TROP, CBC, TSH3, CK #### [facility] [address] ALT [Catalytic activity/Vol] 14 U/L Normal 7-52 [facility] Comment on above: Performed By: #### B STAFF ANTISUBMARINE OFFICER, BMP, PT, PTT, HS TROP, CBC, TSH3, CK #### [place] [address] [place] AST [Catalytic activity/Vol] 15 U/L Normal 13-39 [facility] Comment on above: Performed By: #### B STAFF ANTISUBMARINE OFFICER, BMP, PT, PTT, HS TROP, CBC, TSH3, CK #### [address] Bilirubin [Mass/Vol] 0.4 mg/dL Normal 0.3-1.0 [facility] Comment on above: Performed By: #### B STAFF ANTISUBMARINE OFFICER, BMP, PT, PTT, HS TROP, CBC, TSH3, CK #### [facility] [address] Bilirubin,Indirect 0.3 mg/dL Normal [facility] Comment on above: Performed By: #### B STAFF ANTISUBMARINE OFFICER, BMP, PT, PTT, HS TROP, CBC, TSH3, CK #### [facility] [address] Bilirubin.indirect [Mass/Vol] 0.10 mg/dL Normal 0.03-0.18 [facility] Comment on above: Performed By: #### B STAFF ANTISUBMARINE OFFICER, BMP, PT, PTT, HS TROP, CBC, TSH3, CK #### [facility] [address] Globulin (S) [Mass/Vol] 2.2 g/dL Normal [facility] Comment on above: Performed By: #### B STAFF ANTISUBMARINE OFFICER, BMP, PT, PTT, HS TROP, CBC, TSH3, CK #### [facility] [address] Protein [Mass/Vol] 6.3 g/dL Low 6.4-8.9 [facility] Comment on above: Performed By: #### B STAFF ANTISUBMARINE OFFICER, BMP, PT, PTT, HS TROP, CBC, TSH3, CK #### [facility] [address] INR in Platelet poor plasma by Coagulation assayOrdered By: Hunter Dhillon on 03-12-2023 INR Coag (PPP) [Relative time] 0.9 {INR} [facility] Comment on above: INR Therapeutic Rang e [...] on 03-12-2023 Ketones (U) [Mass/Vol] Negative Negative [facility] Leukocytes [#/volume] correc jazmyne for nucleated erythrocytes in Blood by Automated counOrdered By: Hunter Dhillon on 03-12-2023 WBC corrected for nucl RBC Auto (Bld) [#/Vol] 8.9 10*3/uL 3.8-11.6 [facility] Lymphocytes Auto (Bld) [#/Vo l]Ordered By: Hunter Dhillon on 03-12-2023 Lymphocytes (Bld) [#/Vol] 1.2 10*3/uL 1.00-4.8 [facility] Lymphocytes/100 WBC Auto (Bl d)Ordered By: Hunter Dhillon on 03-12-2023 Lymphocytes/100 WBC (Bld) 13.2 % . [facility] MCH Auto (RBC) [Entitic mass ]Ordered By: Hunter Dhillon on 03-12-2023 MCH (RBC) [Entitic mass] 31.9 pg 24.7-34.3 [facility] MCHC Auto (RBC) [Mass/Vol]Or dered By: Hunter Dhillon on 03-12-2023 MCHC (RBC) [Mass/Vol] 34.7 g/dL 32.0-35.0 [facility] MCV Auto (RBC) [Entitic vol] Ordered By: Hunter Dhillon on 03-12-2023 MCV (RBC) [Entitic vol] 91.8 fL 80-100 [facility] Monocyte distribution width [Entitic volume] in Blood by AutomatedOrdered By: Hunter Dhillon on 03-12-2023 Monocyte distribution width Auto (Bld) [Entitic vol] 17.50 % 0.00-20.00 [facility] Monocytes Auto (Bld) [#/Vol] Ordered By: Hunter Dhillon on 03-12-2023 Monocytes (Bld) [#/Vol] 0.5 10*3/uL 0.0-0.8 [facility] Monocytes/100 WBC Auto (Bld) Ordered By: Hunter Dhillon on 03-12-2023 Monocytes/100 WBC (Bld) 5.1 % . [facility] Natriuretic peptide B [Mass/ Vol]Ordered By: Hunter Dhillon on 03-12-2023 Natriuretic peptide B (Bld) [Mass/Vol] 83.0 pg/mL 5-100 [facility] Neutrophils Auto (Bld) [#/Vo l]Ordered By: Hunter Dhillon on 03-12-2023 Neutrophils (Bld) [#/Vol] 7.0 10*3/uL 1.8-7.7 [facility] Neutrophils/100 WBC Auto (Bl d)Ordered By: Hunter Dhillon on 03-12-2023 Neutrophils/100 WBC (Bld) 79.3 % . [facility] No Panel InformationOrdered By: Hunter Dhillon on 03-12-2023 Estimated GFR (CKD-EPI) > 60.0 mL/Min [facility] Creatinine Clearance (Chem 41.99 [facility] Nucleated erythrocytes [Pres ence] in Blood by Automated countOrdered By: Hunter Dhillon on 03-12-2023 Nucleated RBC Auto Ql (Bld) 0.0 /100{WBC} 0-0.5 [facility] Partial Thromboplastin Timeo n 03-12-2023 aPTT Coag (Bld) [Time] 26.1 s Normal 25.1-36.5 [facility] Comment on above: Result Comment: A he matocrit value greater than 55% may lead to inaccurate results in coagulation testing. Patients having hematocrit values >55% require a special collection tube for coagulation studies. Please contact the laboratory at [phone] for redraw instructions. PERFORMED BY: [place] [address] PATHOLOGIST SUPERVISOR POST WAVE RAQUEL LOPEZ M.D. Performed By: #### B STAFF ANTISUBMARINE OFFICER, BMP, PT, PTT, HS TROP, CBC, TSH3, CK #### [facility] [address] [place] [address] Platelet mean volume Auto (B ld) [Entitic vol]Ordered By: Hunter Dhillon on 03-12-2023 Platelet mean volume (Bld) [Entitic vol] 7.2 fL 6.3-10.7 [facility] Platelets Auto (Bld) [#/Vol] Ordered By: Hunter Dhillon on 03-12-2023 Platelets (Bld) [#/Vol] 237 10*3/uL 150-450 [facility] Potassium [Moles/volume] in Serum or PlasmaOrdered By: Hunter Dhillon on 03-12-2023 Potassium [Moles/Vol] 4.5 mmol/L 3.5-5.1 [facility] Protein Auto test strip (U) [Mass/Vol]Ordered By: Hunter Dhillon on 03-12-2023 Protein (U) [Mass/Vol] Negative Negative [facility] Protein [Mass/volume] in Ser um or PlasmaOrdered By: Hunter Dhillon on 03-12-2023 Protein [Mass/Vol] 6.3 g/dL 6.4-8.9 [facility] Prothrombin Time INRon 03-12 INR Coag (PPP) [Relative time] 0.9 {INR} Normal [facility] Comment on above: Result Comment: INR Therapeutic [...] 3 - 4.5 Performed By: #### B STAFF ANTISUBMARINE OFFICER, BMP, PT, PTT, HS TROP, CBC, TSH3, CK #### [facility] [address] PT Coag (PPP) [Time] 11.3 s Normal 9.0-12.9 [facility] Comment on above: Result Comment: A he matocrit value greater than 55% may lead to inaccurate results in coagulation testing. Patients having hematocrit values >55% require a special collection tube for coagulation studies. Please contact the laboratory at [phone] for redraw instructions. Performed By: #### B STAFF ANTISUBMARINE OFFICER, BMP, PT, PTT, HS TROP, CBC, TSH3, CK #### [facility] [address] [place] [id number] [facility] Prothrombin time (PT)Ordered By: Hunter Dhillon on 03-12-2023 PT Coag (PPP) [Time] 11.3 s 9.0-12.9 [facility] Comment on above: A hematocrit value g reater than 55% may lead to inaccurate results in coagulation testing. Patients having hematocrit values >55% require a special collection tube for coagulation studies. Please contact the laboratory at [phone] for redraw instructions. RBC Auto (Bld) [#/Vol]Ordere d By: Hunter Dhillon on 03-12-2023 RBC (Bld) [#/Vol] 3.87 10*6/uL 3.60-5.00 [facility] Serum or plasma albumin/glob ulin mass ratioOrdered By: Hunter Dhillon on 03-12-2023 Albumin/Globulin [Mass ratio] 1.9 {ratio} [facility] Serum or plasma anion gap de terminationOrdered By: Hunter Dhillon on 03-12-2023 Anion gap [Moles/Vol] 13.3 mmol/L 6.0-15.0 [facility] Serum or plasma non-glucuron idated bilirubin measurement (mass/volume)Ordered By: Hunter Dhillon on 03-12-2023 Bilirubin.indirect [Mass/Vol] 0.3 mg/dL [facility] Sodium [Moles/volume] in Ser um or PlasmaOrdered By: Hunter Dhillon on 03-12-2023 Sodium [Moles/Vol] 128 mmol/L 136-145 [facility] Squamous epithelial cells de tection in urine sediment by light microscopyOrdered By: Hunter Dhillon on 03-12-2023 Epithelial cells.squamous LM Ql (Urine sed) 5-9 [HPF] 0-2 [facility] Thyroid Stimulating Hormoneo n 03-12-2023 TSH Qn 0.01 m[IU]/L Low 0.45-5.33 [facility] Comment on above: Result Comment: PERF ORMED BY: [place] [address] PATHOLOGIST SUPERVISOR POST WAVE RAQUEL LOPEZ M.D. Performed By: #### B STAFF ANTISUBMARINE OFFICER, BMP, PT, PTT, HS TROP, CBC, TSH3, CK #### [place] [id number] [facility] Thyrotropin [Units/volume] i n Serum or PlasmaOrdered By: Hunter Dhillon on 03-12-2023 TSH Qn 0.01 m[IU]/L 0.45-5.33 [facility] Troponin I High Sensitivityo n 03-12-2023 Troponin I High Sensitivity 5.6 pg/mL Normal 0.0-15.0 [facility] Comment on above: Result Comment: PERF ORMED BY: [facility] [address] [place] [id number] PATHOLOGIST SUPERVISOR POST WAVE RAQUEL LOPEZ M.D. Performed By: #### B STAFF ANTISUBMARINE OFFICER, BMP, PT, PTT, HS TROP, CBC, TSH3, CK #### [facility] [address] [place] [id number] [facility] Troponin I.cardiac [Mass/vol ume] in Serum or Plasma by Detection limit <= 0.01 ng/Ordered By: Hunter Dhillon on 03-12-2023 Troponin I.cardiac DL <= 0.01 ng/mL [Mass/Vol] 5.6 pg/mL 0.0-15.0 [facility] Urea nitrogen [Mass/volume] in Serum or PlasmaOrdered By: Hunter Dhillon on 03-12-2023 Urea nitrogen [Mass/Vol] 11 mg/dL 7 [facility] Urine appearanceOrdered By: Hunter Dhillon on 03-12-2023 Appearance (U) Slightly cloudy Clear [facility] Urine bacteria detection by automated methodOrdered By: Hunter Dhillon on 03-12-2023 Bacteria Auto Ql (U) 1+ None Seen [facility] Urine colorOrdered By: Gera Dhillon on 03-12-2023 Color (U) Yellow Yellow [facility] Urine glucose measurement by automated test strip (mass/volume)Ordered By: Hunter Dhillon on 03-12-2023 Glucose Auto test strip (U) [Mass/Vol] Normal mg/dL Normal [facility] Urine hemoglobin detection b y automated test stripOrdered By: Hunter Dhillon on 03-12-2023 Hemoglobin Auto test strip Ql (U) Negative Negative [facility] Urine leukocyte esterase det ection by automated test stripOrdered By: Hunter Dhillon on 03-12-2023 Leukocyte esterase Auto test strip Ql (U) 3+ Negative [facility] Urine nitrite detection by a utomated test stripOrdered By: Hunter Dhillon on 10-01-2023 Nitrite Auto test strip Ql (U) Negative Negative [facility] Urobilinogen Auto test strip (U) [Mass/Vol]Ordered By: Hunter Dhillon on 03-12-2023 Urobilinogen (U) [Mass/Vol] Normal mg/dL Normal [facility] WBC Auto (Bld) [#/Vol]Ordere d By: Hunter Dhillon on 03-12-2023 WBC (Bld) [#/Vol] 8.9 10*3/uL 3.8-11.6 [facility] pH Auto test strip (U)Ordere d By: Hunter Dhillon on 03-12-2023 pH (U) 1.010 [pH] 1.001-1.[address] [facility] pH (U) 7.5 [pH] 5.0-9.0 [facility] Basic Metabolic Panelon 09-2 Anion gap [Moles/Vol] 6.6 mmol/L Normal 6.0-15.0 [facility] Comment on above: Performed By: #### B STAFF ANTISUBMARINE OFFICER, BMP, PT, PTT, HS TROP, CBC, TSH3, CK #### [facility] [address] Calcium [Mass/Vol] 8.9 mg/dL Normal 8.6-10.3 [facility] Comment on above: Performed By: #### B STAFF ANTISUBMARINE OFFICER, BMP, PT, PTT, HS TROP, CBC, TSH3, CK #### [facility] [address] [place] [address] [place] Chloride [Moles/Vol] 104 mmol/L Normal 98-107 [facility] Comment on above: Performed By: #### B STAFF ANTISUBMARINE OFFICER, BMP, PT, PTT, HS TROP, CBC, TSH3, CK #### [facility] [address] [place] [address] [place] CO2 [Moles/Vol] 26.8 mmol/L Normal 21.0-31.0 [facility] Comment on above: Performed By: #### B STAFF ANTISUBMARINE OFFICER, BMP, PT, PTT, HS TROP, CBC, TSH3, CK #### [facility] [address] [place] [address] [place] Creatinine [Mass/Vol] 0.83 mg/dL Normal 0.60-1.20 [facility] Comment on above: Performed By: #### B STAFF ANTISUBMARINE OFFICER, BMP, PT, PTT, HS TROP, CBC, TSH3, CK #### [facility] [address] [place] [address] [place] Creatinine Clr Calc Pharmacy 46.94 [facility] Comment on above: Performed By: #### B STAFF ANTISUBMARINE OFFICER, BMP, PT, PTT, HS TROP, CBC, TSH3, CK #### [facility] [address] [place] [address] [place] GFR/1.73 sq M.predicted MDRD (S/P/Bld) [Vol rate/Area] mL/min/{1.73_m2} [facility] Comment on above: Performed By: #### B STAFF ANTISUBMARINE OFFICER, BMP, PT, PTT, HS TROP, CBC, TSH3, CK #### [facility] [address] Glucose [Mass/Vol] 94 mg/dL Normal 70-100 [facility] Comment on above: Result Comment: [facility] Glucose Reference Range is dependent on time and content of last meal. Glucose of more than 200 mg/dL in a nonstressed, ambulatory subject supports the diagnosis of Diabetes Mellitus. ADA recommended reference range Performed By: #### B STAFF ANTISUBMARINE OFFICER, BMP, PT, PTT, HS TROP, CBC, TSH3, CK #### [facility] [address] Potassium [Moles/Vol] 4.4 mmol/L Normal 3.5-5.1 [facility] Comment on above: Performed By: #### B STAFF ANTISUBMARINE OFFICER, BMP, PT, PTT, HS TROP, CBC, TSH3, CK #### [facility] [address] [place] [address] [place] Sodium [Moles/Vol] 133 mmol/L Low 136-145 [facility] Comment on above: Performed By: #### B STAFF ANTISUBMARINE OFFICER, BMP, PT, PTT, HS TROP, CBC, TSH3, CK #### [facility] [address] [place] [address] [place] Urea nitrogen [Mass/Vol] 8 mg/dL Normal 7-25 [facility] Comment on above: Performed By: #### B STAFF ANTISUBMARINE OFFICER, BMP, PT, PTT, HS TROP, CBC, TSH3, CK #### [facility] [address] Basophils Auto (Bld) [#/Vol] Ordered By: Chuck Chacon on 03-07-2023 Basophils (Bld) [#/Vol] 0.0 10*3/uL 0.0-0.2 [facility] Basophils/100 WBC Auto (Bld) Ordered By: Chuck Chacon on 03-07-2023 Basophils/100 WBC (Bld) 0.7 % . [facility] Calcium [Mass/volume] in Ser um or PlasmaOrdered By: Chuckcasandra Chacon on 03-07-2023 Calcium [Mass/Vol] 8.9 mg/dL 8.6-10.3 [facility] Carbon dioxide, total [Moles /volume] in Serum or PlasmaOrdered By: Chuck Chacon on 03-07-2023 CO2 [Moles/Vol] 26.8 mmol/L 21.0-31.0 [facility] Chloride [Moles/volume] in S yamilex or PlasmaOrdered By: Chuck Chacon on 03-07-2023 Chloride [Moles/Vol] 104 mmol/L 98-107 [facility] Complete Blood Count Auto Di ffon 03-07-2023 Basophils (Bld) [#/Vol] 0.0 10*3/uL Normal 0.0-0.2 [facility] Comment on above: Result Comment: PERF ORMED BY: [facility] [address] [place] [address] PATHOLOGIST SUPERVISOR [employer] W[employer] RAQUEL LOPEZ M.D. Performed By: #### B STAFF ANTISUBMARINE OFFICER, BMP, PT, PTT, HS TROP, CBC, TSH3, CK #### [facility] [address] Basophils/100 WBC (Bld) 0.7 % Normal . [facility] Comment on above: Performed By: #### B STAFF ANTISUBMARINE OFFICER, BMP, PT, PTT, HS TROP, CBC, TSH3, CK #### [address] Eosinophils (Bld) [#/Vol] 0.4 10*3/uL Normal 0.0-0.45 [facility] Comment on above: Performed By: #### B STAFF ANTISUBMARINE OFFICER, BMP, PT, PTT, HS TROP, CBC, TSH3, CK #### [address] Eosinophils/100 WBC (Bld) 5.2 % Normal . [facility] Comment on above: Performed By: #### B STAFF ANTISUBMARINE OFFICER, BMP, PT, PTT, HS TROP, CBC, TSH3, CK #### [address] Erythrocyte distribution width (RBC) [Ratio] 12.8 % Normal 11.9-15.3 [facility] Comment on above: Performed By: #### B STAFF ANTISUBMARINE OFFICER, BMP, PT, PTT, HS TROP, CBC, TSH3, CK #### [address] Hematocrit (Bld) [Volume fraction] 35.2 % Normal 34.0-46.4 [facility] Comment on above: Performed By: #### B STAFF ANTISUBMARINE OFFICER, BMP, PT, PTT, HS TROP, CBC, TSH3, CK #### [address] Hemoglobin (Bld) [Mass/Vol] 12.0 g/dL Normal 11.8-15.4 [facility] Comment on above: Performed By: #### B STAFF ANTISUBMARINE OFFICER, BMP, PT, PTT, HS TROP, CBC, TSH3, CK #### [address] Lymphocytes (Bld) [#/Vol] 1.7 10*3/uL Normal 1.00-4.8 [facility] Comment on above: Performed By: #### B STAFF ANTISUBMARINE OFFICER, BMP, PT, PTT, HS TROP, CBC, TSH3, CK #### [address] Lymphocytes/100 WBC (Bld) 24.6 % Normal . [facility] Comment on above: Performed By: #### B STAFF ANTISUBMARINE OFFICER, BMP, PT, PTT, HS TROP, CBC, TSH3, CK #### [address] MCH (RBC) [Entitic mass] 31.6 pg Normal 24.7-34.3 [facility] Comment on above: Performed By: #### B STAFF ANTISUBMARINE OFFICER, BMP, PT, PTT, HS TROP, CBC, TSH3, CK #### [address] MCV (RBC) [Entitic vol] 92.5 fL Normal 80-100 [facility] Comment on above: Performed By: #### B STAFF ANTISUBMARINE OFFICER, BMP, PT, PTT, HS TROP, CBC, TSH3, CK #### [address] Mean Corpuscular HGB Conc 34.1 g/dL Normal 32.0-35.0 [facility] Comment on above: Performed By: #### B STAFF ANTISUBMARINE OFFICER, BMP, PT, PTT, HS TROP, CBC, TSH3, CK #### [address] Monocytes (Bld) [#/Vol] 0.6 10*3/uL Normal 0.0-0.8 [facility] Comment on above: Performed By: #### B STAFF ANTISUBMARINE OFFICER, BMP, PT, PTT, HS TROP, CBC, TSH3, CK #### [address] Monocytes/100 WBC (Bld) 8.7 % Normal . [facility] Comment on above: Performed By: #### B STAFF ANTISUBMARINE OFFICER, BMP, PT, PTT, HS TROP, CBC, TSH3, CK #### [address] Neutrophils (Bld) [#/Vol] 4.2 10*3/uL Normal 1.8-7.7 [facility] Comment on above: Performed By: #### B STAFF ANTISUBMARINE OFFICER, BMP, PT, PTT, HS TROP, CBC, TSH3, CK #### [address] Neutrophils/100 WBC (Bld) 60.8 % Normal . [facility] Comment on above: Performed By: #### B STAFF ANTISUBMARINE OFFICER, BMP, PT, PTT, HS TROP, CBC, TSH3, CK #### [address] NRBC% 0.0 /100{WBC} Normal 0-0.5 [facility] Comment on above: Performed By: #### B STAFF ANTISUBMARINE OFFICER, BMP, PT, PTT, HS TROP, CBC, TSH3, CK #### [address] Platelet mean volume (Bld) [Entitic vol] 7.5 fL Normal 6.3-10.7 [facility] Comment on above: Performed By: #### B STAFF ANTISUBMARINE OFFICER, BMP, PT, PTT, HS TROP, CBC, TSH3, CK #### [address] Platelets (Bld) [#/Vol] 232 10*3/uL Normal 150-450 [facility] Comment on above: Performed By: #### B STAFF ANTISUBMARINE OFFICER, BMP, PT, PTT, HS TROP, CBC, TSH3, CK #### [address] RBC (Bld) [#/Vol] 3.80 10*6/uL Normal 3.60-5.00 [facility] Comment on above: Performed By: #### B STAFF ANTISUBMARINE OFFICER, BMP, PT, PTT, HS TROP, CBC, TSH3, CK #### [address] WBC (Bld) [#/Vol] 6.8 10*3/uL Normal 3.8-11.6 [facility] Comment on above: Performed By: #### B STAFF ANTISUBMARINE OFFICER, BMP, PT, PTT, HS TROP, CBC, TSH3, CK #### [address] Creatinine [Mass/volume] in Serum or PlasmaOrdered By: Chuck Chacon on 03-07-2023 Creatinine [Mass/Vol] 0.83 mg/dL 0.60-1.20 [facility] Eosinophils Auto (Bld) [#/Vo l]Ordered By: Chuck Chacon on 03-07-2023 Eosinophils (Bld) [#/Vol] 0.4 10*3/uL 0.0-0.45 [facility] Eosinophils/100 WBC Auto (Bl d)Ordered By: Chuck Chacon on 03-07-2023 Eosinophils/100 WBC (Bld) 5.2 % . [facility] Erythrocyte distribution wid th Auto (RBC) [Ratio]Ordered By: Chuck Chacon on 03-07-2023 Erythrocyte distribution width (RBC) [Ratio] 12.8 % 11.9-15.3 [facility] Glucose [Mass/volume] in Ser um or PlasmaOrdered By: Chuck Chacon on 03-07-2023 Glucose [Mass/Vol] 94 mg/dL 70-100 [facility] Comment on above: ADA recommended refe rence rangeRandom Glucose Reference Range is dependent on time and content of last meal. Glucose of more than 200 mg/dL in a nonstressed, ambulatory subject supports the diagnosis of Diabetes Mellitus. Hematocrit Auto (Bld) [Volum e fraction]Ordered By: Chuck Chacon on 03-07-2023 Hematocrit (Bld) [Volume fraction] 35.2 % 34.0-46.4 [facility] Hemoglobin [Mass/volume] in BloodOrdered By: Chuck Chacon on 03-07-2023 Hemoglobin (Bld) [Mass/Vol] 12.0 g/dL 11.8-15.4 [facility] Leukocytes [#/volume] correc jazmyne for nucleated erythrocytes in Blood by Automated counOrdered By: Chuck Chacon on 03-07-2023 WBC corrected for nucl RBC Auto (Bld) [#/Vol] 6.8 10*3/uL 3.8-11.6 [facility] Lymphocytes Auto (Bld) [#/Vo l]Ordered By: Chuck Chacon on 03-07-2023 Lymphocytes (Bld) [#/Vol] 1.7 10*3/uL 1.00-4.8 [facility] Lymphocytes/100 WBC Auto (Bl d)Ordered By: Chuck Chacon on 03-07-2023 Lymphocytes/100 WBC (Bld) 24.6 % . [facility] MCH Auto (RBC) [Entitic mass ]Ordered By: Chuck Chacon on 03-07-2023 MCH (RBC) [Entitic mass] 31.6 pg 24.7-34.3 [facility] MCHC Auto (RBC) [Mass/Vol]Or dered By: Chuck Chacon on 03-07-2023 MCHC (RBC) [Mass/Vol] 34.1 g/dL 32.0-35.0 [facility] MCV Auto (RBC) [Entitic vol] Ordered By: Chuck Chacon on 03-07-2023 MCV (RBC) [Entitic vol] 92.5 fL 80-100 [facility] Magnesiumon 03-07-2023 Magnesium [Mass/Vol] 1.4 mg/dL Low 1.9-2.7 [facility] Comment on above: Result Comment: PERF ORMED BY: [place] [address] PATHOLOGIST SUPERVISOR [employer] W[employer] RAQUEL LOPEZ M.D. Performed By: #### B STAFF ANTISUBMARINE OFFICER, BMP, PT, PTT, HS TROP, CBC, TSH3, CK #### [facility] [address] [place] [address] Magnesium [Mass/volume] in S yamilex or PlasmaOrdered By: Chuck Chacon on 03-07-2023 Magnesium [Mass/Vol] 1.4 mg/dL 1.9-2.7 [facility] Monocytes Auto (Bld) [#/Vol] Ordered By: Chuck Chacon on 03-07-2023 Monocytes (Bld) [#/Vol] 0.6 10*3/uL 0.0-0.8 [facility] Monocytes/100 WBC Auto (Bld) Ordered By: Chuck Chacon on 03-07-2023 Monocytes/100 WBC (Bld) 8.7 % . [facility] Neutrophils Auto (Bld) [#/Vo l]Ordered By: Chuck Chacon on 03-07-2023 Neutrophils (Bld) [#/Vol] 4.2 10*3/uL 1.8-7.7 [facility] Neutrophils/100 WBC Auto (Bl d)Ordered By: Chuck Chacon on 03-07-2023 Neutrophils/100 WBC (Bld) 60.8 % . [facility] No Panel InformationOrdered By: Chuck Chacon on 03-07-2023 Estimated GFR (CKD-EPI) > 60.0 mL/Min [facility] Creatinine Clearance (Chem 46.94 [facility] Nucleated erythrocytes [Pres ence] in Blood by Automated countOrdered By: Chuck Chacon on 03-07-2023 Nucleated RBC Auto Ql (Bld) 0.0 /100{WBC} 0-0.5 [facility] Platelet mean volume Auto (B ld) [Entitic vol]Ordered By: Chuck Chacon on 03-07-2023 Platelet mean volume (Bld) [Entitic vol] 7.5 fL 6.3-10.7 [facility] Platelets Auto (Bld) [#/Vol] Ordered By: Chuck Chacon on 03-07-2023 Platelets (Bld) [#/Vol] 232 10*3/uL 150-450 [facility] Potassium [Moles/volume] in Serum or PlasmaOrdered By: Chuck Chacon on 03-07-2023 Potassium [Moles/Vol] 4.4 mmol/L 3.5-5.1 [facility] RBC Auto (Bld) [#/Vol]Ordere d By: Chuck Chacon on 03-07-2023 RBC (Bld) [#/Vol] 3.80 10*6/uL 3.60-5.00 [facility] Serum or plasma anion gap de terminationOrdered By: Chuck Chacon on 03-07-2023 Anion gap [Moles/Vol] 6.6 mmol/L 6.0-15.0 [facility] Sodium [Moles/volume] in Ser um or PlasmaOrdered By: Chuck Chacon on 03-07-2023 Sodium [Moles/Vol] 133 mmol/L 136-145 [facility] Urea nitrogen [Mass/volume] in Serum or PlasmaOrdered By: Chuck Chacon on 03-07-2023 Urea nitrogen [Mass/Vol] 8 mg/dL 01-03 [facility] WBC Auto (Bld) [#/Vol]Ordere d By: Chuck Chacon on 03-07-2023 WBC (Bld) [#/Vol] 6.8 10*3/uL 3.8-11.6 [facility] A1C with Estimated Average G christyn 03-06-2023 Glucose [Mass/Vol] 120 mg/dL Normal [facility] Comment on above: Result Comment: PERF ORMED BY: [place] [address] PATHOLOGIST SUPERVISOR [employer] RAQUEL LOPEZ M.D. Performed By: #### B STAFF ANTISUBMARINE OFFICER, BMP, PT, PTT, HS TROP, CBC, TSH3, CK #### [facility] [address] HbA1c (Bld) [Mass fraction] 5.8 % High 4.3-5.6 [facility] Comment on above: Result Comment: Incr eased risk for diabetes: 5.7 - 6.4 diabetes: >6.4 glycemic control for adults with diabetes: <7.0 Performed By: #### B STAFF ANTISUBMARINE OFFICER, BMP, PT, PTT, HS TROP, CBC, TSH3, CK #### [facility] [address] [place] [address] [place] Alanine aminotransferase [En zymatic activity/volume] in Serum or PlasmaOrdered By: Jemal Jones on 03-06-2023 ALT [Catalytic activity/Vol] 17 U/L [facility] Albumin [Mass/volume] in Ser um or Plasma by Bromocresol green (BCG) dye binding methoOrdered By: Jemal Jones on 03-06-2023 Albumin BCG dye [Mass/Vol] 4.3 g/dL 3.5-5.7 [facility] Alkaline phosphatase [Enzyma tic activity/volume] in Serum or PlasmaOrdered By: Jemal Jones on 03-06-2023 ALP [Catalytic activity/Vol] 45 U/L 34-104 [facility] Aspartate aminotransferase [ Enzymatic activity/volume] in Serum or PlasmaOrdered By: Objacqui Gonzalezomar on 03-06-2023 AST [Catalytic activity/Vol] 16 U/L 13-39 [facility] Bilirubin.total [Mass/volume ] in Serum or PlasmaOrdered By: Jemal Velar on 03-06-2023 Bilirubin [Mass/Vol] 0.5 mg/dL 0.3-1.0 [facility] Cholesterol [Mass/volume] in Serum or PlasmaOrdered By: Jemal Velar on 03-06-2023 Cholesterol [Mass/Vol] 88 mg/dL 140-200 [facility] Comment on above: Chol less than 200 m g/dl low riskChol 201-239 mg/dl borderline riskChol 240 mg/dl and greater high risk Cholesterol in LDL Calc [Mas s/Vol]Ordered By: Jemal Jones on 03-06-2023 Cholesterol in LDL [Mass/Vol] 29 mg/dL 0-100 [facility] Comment on above: LDL ATP III CLASSIFI CATIONLDL less than 100 mg/dL OptimalLDL 100-129 mg/dL Near or above optimalLDL 130-159 mg/dL Borderline highLDL 160-189 mg/dL HighLDL greater than 189 mg/dL Very high Cholesterol in VLDL Calc [Ma ss/Vol]Ordered By: Jemal Jones on 03-06-2023 Cholesterol in VLDL [Mass/Vol] 16 mg/dL [facility] Complete Blood Count Auto Di ffon 03-06-2023 Basophils (Bld) [#/Vol] 0.0 10*3/uL Normal 0.0-0.2 [facility] Comment on above: Result Comment: PERF ORMED BY: [facility] [address] [place] [address] PATHOLOGIST SUPERVISOR [employer] JIANLAN SUN M.D. Performed By: #### B STAFF ANTISUBMARINE OFFICER, BMP, PT, PTT, HS TROP, CBC, TSH3, CK #### [address] Basophils/100 WBC (Bld) 0.6 % Normal . [facility] Comment on above: Performed By: #### B STAFF ANTISUBMARINE OFFICER, BMP, PT, PTT, HS TROP, CBC, TSH3, CK #### [address] Eosinophils (Bld) [#/Vol] 0.3 10*3/uL Normal 0.0-0.45 [facility] Comment on above: Performed By: #### B STAFF ANTISUBMARINE OFFICER, BMP, PT, PTT, HS TROP, CBC, TSH3, CK #### [address] Eosinophils/100 WBC (Bld) 4.2 % Normal . [facility] Comment on above: Performed By: #### B STAFF ANTISUBMARINE OFFICER, BMP, PT, PTT, HS TROP, CBC, TSH3, CK #### [address] Erythrocyte distribution width (RBC) [Ratio] 12.9 % Normal 11.9-15.3 [facility] Comment on above: Performed By: #### B STAFF ANTISUBMARINE OFFICER, BMP, PT, PTT, HS TROP, CBC, TSH3, CK #### [address] Hematocrit (Bld) [Volume fraction] 37.9 % Normal 34.0-46.4 [facility] Comment on above: Performed By: #### B STAFF ANTISUBMARINE OFFICER, BMP, PT, PTT, HS TROP, CBC, TSH3, CK #### [address] Hemoglobin (Bld) [Mass/Vol] 13.0 g/dL Normal 11.8-15.4 [facility] Comment on above: Performed By: #### B STAFF ANTISUBMARINE OFFICER, BMP, PT, PTT, HS TROP, CBC, TSH3, CK #### [place] [address] [place] Lymphocytes (Bld) [#/Vol] 1.7 10*3/uL Normal 1.00-4.8 [facility] Comment on above: Performed By: #### B STAFF ANTISUBMARINE OFFICER, BMP, PT, PTT, HS TROP, CBC, TSH3, CK #### [address] Lymphocytes/100 WBC (Bld) 22.0 % Normal . [facility] Comment on above: Performed By: #### B STAFF ANTISUBMARINE OFFICER, BMP, PT, PTT, HS TROP, CBC, TSH3, CK #### [address] MCH (RBC) [Entitic mass] 31.5 pg Normal 24.7-34.3 [facility] Comment on above: Performed By: #### B STAFF ANTISUBMARINE OFFICER, BMP, PT, PTT, HS TROP, CBC, TSH3, CK #### [address] MCV (RBC) [Entitic vol] 91.9 fL Normal 80-100 [facility] Comment on above: Performed By: #### B STAFF ANTISUBMARINE OFFICER, BMP, PT, PTT, HS TROP, CBC, TSH3, CK #### [address] Mean Corpuscular HGB Conc 34.3 g/dL Normal 32.0-35.0 [facility] Comment on above: Performed By: #### B STAFF ANTISUBMARINE OFFICER, BMP, PT, PTT, HS TROP, CBC, TSH3, CK #### [address] Monocytes (Bld) [#/Vol] 0.6 10*3/uL Normal 0.0-0.8 [facility] Comment on above: Performed By: #### B STAFF ANTISUBMARINE OFFICER, BMP, PT, PTT, HS TROP, CBC, TSH3, CK #### [address] Monocytes/100 WBC (Bld) 8.2 % Normal . [facility] Comment on above: Performed By: #### B STAFF ANTISUBMARINE OFFICER, BMP, PT, PTT, HS TROP, CBC, TSH3, CK #### [facility] [address] Neutrophils (Bld) [#/Vol] 5.1 10*3/uL Normal 1.8-7.7 [facility] Comment on above: Performed By: #### B STAFF ANTISUBMARINE OFFICER, BMP, PT, PTT, HS TROP, CBC, TSH3, CK #### [facility] [address] Neutrophils/100 WBC (Bld) 65.0 % Normal . [facility] Comment on above: Performed By: #### B STAFF ANTISUBMARINE OFFICER, BMP, PT, PTT, HS TROP, CBC, TSH3, CK #### [facility] [address] NRBC% 0.1 /100{WBC} Normal 0-0.5 [facility] Comment on above: Performed By: #### B STAFF ANTISUBMARINE OFFICER, BMP, PT, PTT, HS TROP, CBC, TSH3, CK #### [address] Platelet mean volume (Bld) [Entitic vol] 7.4 fL Normal 6.3-10.7 [facility] Comment on above: Performed By: #### B STAFF ANTISUBMARINE OFFICER, BMP, PT, PTT, HS TROP, CBC, TSH3, CK #### [address] Platelets (Bld) [#/Vol] 257 10*3/uL Normal 150-450 [facility] Comment on above: Performed By: #### B STAFF ANTISUBMARINE OFFICER, BMP, PT, PTT, HS TROP, CBC, TSH3, CK #### [address] RBC (Bld) [#/Vol] 4.12 10*6/uL Normal 3.60-5.00 [facility] Comment on above: Performed By: #### B STAFF ANTISUBMARINE OFFICER, BMP, PT, PTT, HS TROP, CBC, TSH3, CK #### [address] WBC (Bld) [#/Vol] 7.8 10*3/uL Normal 3.8-11.6 [facility] Comment on above: Performed By: #### B STAFF ANTISUBMARINE OFFICER, BMP, PT, PTT, HS TROP, CBC, TSH3, CK #### [facility] [address] Comprehensive Metabolic Pane zofia 03-06-2023 Albumin [Mass/Vol] 4.3 g/dL Normal 3.5-5.7 [facility] Comment on above: Performed By: #### B STAFF ANTISUBMARINE OFFICER, BMP, PT, PTT, HS TROP, CBC, TSH3, CK #### [facility] [address] Albumin/Globulin [Mass ratio] 1.9 {ratio} Normal [facility] Comment on above: Performed By: #### B STAFF ANTISUBMARINE OFFICER, BMP, PT, PTT, HS TROP, CBC, TSH3, CK #### [address] ALP [Catalytic activity/Vol] 45 U/L Normal 34-104 [facility] Comment on above: Performed By: #### B STAFF ANTISUBMARINE OFFICER, BMP, PT, PTT, HS TROP, CBC, TSH3, CK #### [address] ALT [Catalytic activity/Vol] 17 U/L Normal 7-52 [facility] Comment on above: Performed By: #### B STAFF ANTISUBMARINE OFFICER, BMP, PT, PTT, HS TROP, CBC, TSH3, CK #### [address] Anion gap [Moles/Vol] 10.4 mmol/L Normal 6.0-15.0 [facility] Comment on above: Performed By: #### B STAFF ANTISUBMARINE OFFICER, BMP, PT, PTT, HS TROP, CBC, TSH3, CK #### [address] AST [Catalytic activity/Vol] 16 U/L Normal 13-39 [facility] Comment on above: Performed By: #### B STAFF ANTISUBMARINE OFFICER, BMP, PT, PTT, HS TROP, CBC, TSH3, CK #### [place] [address] [place] Bilirubin [Mass/Vol] 0.5 mg/dL Normal 0.3-1.0 [facility] Comment on above: Performed By: #### B STAFF ANTISUBMARINE OFFICER, BMP, PT, PTT, HS TROP, CBC, TSH3, CK #### [facility] [address] Calcium [Mass/Vol] 9.2 mg/dL Normal 8.6-10.3 [facility] Comment on above: Performed By: #### B STAFF ANTISUBMARINE OFFICER, BMP, PT, PTT, HS TROP, CBC, TSH3, CK #### [facility] [address] Chloride [Moles/Vol] 98 mmol/L Normal 98-107 [facility] Comment on above: Performed By: #### B STAFF ANTISUBMARINE OFFICER, BMP, PT, PTT, HS TROP, CBC, TSH3, CK #### [facility] [address] CO2 [Moles/Vol] 24.9 mmol/L Normal 21.0-31.0 [facility] Comment on above: Performed By: #### B STAFF ANTISUBMARINE OFFICER, BMP, PT, PTT, HS TROP, CBC, TSH3, CK #### [facility] [address] Creatinine [Mass/Vol] 0.85 mg/dL Normal 0.60-1.20 [facility] Comment on above: Performed By: #### B STAFF ANTISUBMARINE OFFICER, BMP, PT, PTT, HS TROP, CBC, TSH3, CK #### [address] Creatinine Clr Calc Pharmacy 45.45 [facility] Comment on above: Performed By: #### B STAFF ANTISUBMARINE OFFICER, BMP, PT, PTT, HS TROP, CBC, TSH3, CK #### [facility] [address] GFR/1.73 sq M.predicted MDRD (S/P/Bld) [Vol rate/Area] mL/min/{1.73_m2} [facility] Comment on above: Performed By: #### B STAFF ANTISUBMARINE OFFICER, BMP, PT, PTT, HS TROP, CBC, TSH3, CK #### [address] Globulin (S) [Mass/Vol] 2.3 g/dL Normal [facility] Comment on above: Performed By: #### B STAFF ANTISUBMARINE OFFICER, BMP, PT, PTT, HS TROP, CBC, TSH3, CK #### [address] Glucose [Mass/Vol] 97 mg/dL Normal 70-100 [facility] Comment on above: Result Comment: [facility] Glucose Reference Range is dependent on time and content of last meal. Glucose of more than 200 mg/dL in a nonstressed, ambulatory subject supports the diagnosis of Diabetes Mellitus. ADA recommended reference range Performed By: #### B STAFF ANTISUBMARINE OFFICER, BMP, PT, PTT, HS TROP, CBC, TSH3, CK #### [address] Potassium [Moles/Vol] 4.3 mmol/L Normal 3.5-5.1 [facility] Comment on above: Performed By: #### B STAFF ANTISUBMARINE OFFICER, BMP, PT, PTT, HS TROP, CBC, TSH3, CK #### [address] Protein [Mass/Vol] 6.6 g/dL Normal 6.4-8.9 [facility] Comment on above: Performed By: #### B STAFF ANTISUBMARINE OFFICER, BMP, PT, PTT, HS TROP, CBC, TSH3, CK #### [address] Sodium [Moles/Vol] 129 mmol/L Low 136-145 [facility] Comment on above: Performed By: #### B STAFF ANTISUBMARINE OFFICER, BMP, PT, PTT, HS TROP, CBC, TSH3, CK #### [address] Urea nitrogen [Mass/Vol] 14 mg/dL Normal 7-25 [facility] Comment on above: Performed By: #### B STAFF ANTISUBMARINE OFFICER, BMP, PT, PTT, HS TROP, CBC, TSH3, CK #### [facility] [address] [place] [address] [place] Dipstick and Microscopicon 0 03-06-2023 Appearance (U) Clear Normal Clear [facility] Comment on above: Order Comment: Name Collection Type:: Clean-Voided Midstream Performed By: #### A DDONUAPLUS #### [facility] [address] [place] [address] [place] Bacteria,Urine 1+ High None Seen [facility] Comment on above: Order Comment: Name Collection Type:: Clean-Voided Midstream Performed By: #### A DDONUAPLUS #### [facility] [address] [place] [address] [place] Bilirubin,Urine Negative Normal Negative [facility] Comment on above: Order Comment: Name Collection Type:: Clean-Voided Midstream Performed By: #### A DDONUAPLUS #### [facility] [address] [place] [address] [place] Color (U) Yellow Normal Yellow [facility] Comment on above: Order Comment: Name Collection Type:: Clean-Voided Midstream Performed By: #### A DDONUAPLUS #### [facility] [address] [place] [address] [place] Glucose Ql (U) Normal Normal Normal [facility] Comment on above: Order Comment: Name Collection Type:: Clean-Voided Midstream Performed By: #### A DDONUAPLUS #### [facility] [address] [place] [address] [place] Hyaline Casts,Urine None Seen Normal 0-1 [facility] Comment on above: Order Comment: Name Collection Type:: Clean-Voided Midstream Result Comment: PERF ORMED BY: [place] [address] PATHOLOGIST SUPERVISOR [employer] WAVE RAQUEL LOPEZ M.D. Performed By: #### A DDONUAPLUS #### [facility] [address] [place] [address] [place] Ketones Ql (U) Trace High Negative [facility] Comment on above: Order Comment: Name Collection Type:: Clean-Voided Midstream Performed By: #### A DDONUAPLUS #### [address] Leukocyte esterase Test strip Ql (U) 1+ High Negative [facility] Comment on above: Order Comment: Name Collection Type:: Clean-Voided Midstream Performed By: #### A DDONUAPLUS #### [place] [address] [place] Nitrite,Urine Negative Normal Negative [facility] Comment on above: Order Comment: Name Collection Type:: Clean-Voided Midstream Performed By: #### A DDONUAPLUS #### [place] [address] [place] Occult Blood,Urine Negative Normal Negative [facility] Comment on above: Order Comment: Name Collection Type:: Clean-Voided Midstream Result Comment: PERF ORMED BY: [place] [address] PATHOLOGIST SUPERVISOR [employer] WAVE RAQUEL LOPEZ M.D. Performed By: #### A DDONUAPLUS #### [place] [address] [place] pH (U) 6.0 [pH] Normal 5.0-9.0 [facility] Comment on above: Order Comment: Name Collection Type:: Clean-Voided Midstream Performed By: #### A DDONUAPLUS #### [place] [address] [place] Protein,Urine Negative Normal Negative [facility] Comment on above: Order Comment: Name Collection Type:: Clean-Voided Midstream Performed By: #### A DDONUAPLUS #### [place] [address] [place] RBC,Urine None Seen Normal 0-4 [facility] Comment on above: Order Comment: Name Collection Type:: Clean-Voided Midstream Performed By: #### A DDONUAPLUS #### [place] [address] [place] Renal Epithelial Cells,Urine Rare Normal 0-1 [facility] Comment on above: Order Comment: Name Collection Type:: Clean-Voided Midstream Performed By: #### A DDONUAPLUS #### [facility] [address] [place] [address] Specificy [place],Urine 1.015 Normal 1.001-1.[address] [facility] Comment on above: Order Comment: Name Collection Type:: Clean-Voided Midstream Performed By: #### A DDONUAPLUS #### [address] Squamous Epithelial Cell,Urine 3-4 High 0-2 [facility] Comment on above: Order Comment: Name Collection Type:: Clean-Voided Midstream Performed By: #### A DDONUAPLUS #### [address] Urobilinogen,Urine Normal Normal Normal [facility] Comment on above: Order Comment: Name Collection Type:: Clean-Voided Midstream Performed By: #### A DDONUAPLUS #### [address] WBC,Urine 3-4 Normal 0-4 [facility] Comment on above: Order Comment: Name Collection Type:: Clean-Voided Midstream Performed By: #### A DDONUAPLUS #### [address] ECH echo transthoracicon ECH echo transthoracic [facility] [place] [address] Echocardiogram Signed Patient: Steven Harding MR#: [id number] 1 : 1940 Acct:[id number] Age/Sex: 83 / F ADM Date: 03/05/23 Loc: Room: [address] [place] [address] Type: ADM INOo Attending Dr: Chuck Chacon MD Ordering Provider: Jemal Jones MD Date of Service: 03/06/23 ECH/ECH echo transthoracic: Dizziness Copies to: MD Jemal Tello MD Weight: 140 lb Performed By: FREDDIE Vallejo BSA: 1.6 m2 BP: 160/69 mmHg HR: 75 Reason For Study: Dizziness History: aortic aneurysm, HTN, AL, pre-DM, PCI, former smoker, CAD Interpretation Summary [...] max lizette: 76.3 cm/sec(0.8-1.3m/s) MV A max lieztte: 114.8 cm/sec(0.0-0.0m/s) MV E/A: 0.66 (<1.5) MMode/2D [...] ROB Performed At: 03/06/23 1029 Signed By: Karli Dougherty MD 03/06/[address] [facility] Free T4 (Free Thyroxine)on 0 03-06-2023 Free T4 [Mass/Vol] 1.01 ng/dL Normal 0.61-1.12 [facility] Comment on above: Performed By: #### B STAFF ANTISUBMARINE OFFICER, BMP, PT, PTT, HS TROP, CBC, TSH3, CK #### [facility] [address] Globulin Calc (S) [Mass/Vol] Ordered By: Jemal Jones on 03-06-2023 Globulin (S) [Mass/Vol] 2.3 g/dL [facility] Glucose Glucometer (BldC) [M ass/Vol]Ordered By: Jemal Jones on 03-06-2023 Glucose [Mass/Vol] 104 mg/dL [facility] Comment on above: Random Glucose Refer ence Range is dependent on time and content of last meal. Glucose of more than 200 mg/dL in a nonstressed, ambulatory subject supports the diagnosis of Diabetes Mellitus. Glucose Poct Glucometerson 0 03-06-2023 Glucose [Mass/Vol] 104 mg/dL Normal [facility] Comment on above: Result Comment: [place] Glucose Reference Range is dependent on time and content of last meal. Glucose of more than 200 mg/dL in a nonstressed, ambulatory subject supports the diagnosis of Diabetes Mellitus. PERFORMED BY: [facility] [address] [place] [address] PATHOLOGIST SUPERVISOR [employer] RAQUEL LOPEZ M.D. Performed By: #### B STAFF ANTISUBMARINE OFFICER, BMP, PT, PTT, HS TROP, CBC, TSH3, CK #### [facility] [address] Glucose mean value [Mass/vol ume] in Blood Estimated from glycated hemoglobinOrdered By: Jemal Jones on 03-06-2023 Average glucose Estimated from glycated hemoglobin (Bld) [Mass/Vol] 120 mg/dL [facility] Hemoglobin A1c percentageOrd ered By: Jemal Jones on 03-06-2023 HbA1c (Bld) [Mass fraction] 5.8 % 4.3-5.6 [facility] Comment on above: Increased risk for d iabetes: 5.7 - 6.4diabetes: >6.4glycemic control for adults with diabetes: <7.0 Lipid Panelon 03-06-2023 Cholesterol [Mass/Vol] 88 mg/dL Low 140-200 [facility] Comment on above: Result Comment: Chol less than 200 mg/dl low risk Chol 201-239 mg/dl borderline risk Chol 240 mg/dl and greater high risk Performed By: #### B STAFF ANTISUBMARINE OFFICER, BMP, PT, PTT, HS TROP, CBC, TSH3, CK #### [facility] [address] [place] [address] [place] Cholesterol in HDL [Mass/Vol] 42 mg/dL Normal 23-92 [facility] Comment on above: Result Comment: HDL CHOL ATP-III CLASSIFICATION Cardiovascular Risk HDL > or equal to 60 mg/dL LOW HDL < 40 mg/dL HIGH Performed By: #### B STAFF ANTISUBMARINE OFFICER, BMP, PT, PTT, HS TROP, CBC, TSH3, CK #### [facility] [address] [place] [address] [place] Cholesterol.total/Chol esterol in HDL [Mass ratio] 2.1 {ratio} Normal <5.0 [facility] Comment on above: Performed By: #### B STAFF ANTISUBMARINE OFFICER, BMP, PT, PTT, HS TROP, CBC, TSH3, CK #### [facility] [address] [place] [id number] [place] LDL Cholesterol,Calculated 29 mg/dL Normal 0-100 [facility] Comment on above: Result Comment: LDL ATP III CLASSIFICATION LDL less than 100 mg/dL Optimal LDL 100-129 mg/dL Near or above optimal LDL 130-159 mg/dL Borderline high LDL 160-189 mg/dL High LDL greater than 189 mg/dL Very high Performed By: #### B STAFF ANTISUBMARINE OFFICER, BMP, PT, PTT, HS TROP, CBC, TSH3, CK #### [facility] [address] Triglyceride w/Reflex 84 mg/dL Normal 0-149 [facility] Comment on above: Result Comment: TRIG ATP III CLASSIFICATION TRIG less than 150 mg/dL Normal TRIG 150-199 mg/dL Borderline high TRIG 200-500 mg/dL High TRIG greater than 500 mg/dL Very high Standard traceable to the Center for Disease Conrtrol and Prevention (CDC) test method. Performed By: #### B STAFF ANTISUBMARINE OFFICER, BMP, PT, PTT, HS TROP, CBC, TSH3, CK #### [facility] [address] VLDL CHOLESTEROL 16 mg/dL Normal [facility] Comment on above: Performed By: #### B STAFF ANTISUBMARINE OFFICER, BMP, PT, PTT, HS TROP, CBC, TSH3, CK #### [facility] [address] Magnesiumon 03-06-2023 Magnesium [Mass/Vol] 1.4 mg/dL Low 1.9-2.7 [facility] Comment on above: Performed By: #### B STAFF ANTISUBMARINE OFFICER, BMP, PT, PTT, HS TROP, CBC, TSH3, CK #### [facility] [address] Protein [Mass/volume] in Ser um or PlasmaOrdered By: Obchapincitodamarck Gonzalezomar on 03-06-2023 Protein [Mass/Vol] 6.6 g/dL 6.4-8.9 [facility] Serum or plasma albumin/glob ulin mass ratioOrdered By: Obchapincitodamarck Gonzalezomar on 03-06-2023 Albumin/Globulin [Mass ratio] 1.9 {ratio} [facility] Serum or plasma high density lipoprotein (HDL) cholesterol measurementOrdered By: Obchapincitodah Robert on 03-06-2023 Cholesterol in HDL [Mass/Vol] 42 mg/dL 23-92 [facility] Comment on above: HDL CHOL ATP-III CLA SSIFICATION Cardiovascular RiskHDL > or equal to 60 mg/dL LOWHDL < 40 mg/dL HIGH Serum or plasma total choles terol/high density lipoprotein (HDL) cholesterol mass ratOrdered By: Jemal Jones on 03-06-2023 Cholesterol.total/Chol esterol in HDL [Mass ratio] 2.1 {ratio} <5.0 [facility] Thyroxine (T4) free [Mass/vo lume] in Serum or PlasmaOrdered By: Jemal Jones on 03-06-2023 Free T4 [Mass/Vol] 1.01 ng/dL 0.61-1.12 [facility] Triglyceride [Mass/volume] i n Serum or PlasmaOrdered By: Jemal Jones on 03-06-2023 Triglyceride [Mass/Vol] 84 mg/dL 0-149 [facility] Comment on above: TRIG ATP III CLASSIF ICATIONTRIG less than 150 mg/dL NormalTRIG 150-199 mg/dL Borderline highTRIG 200-500 mg/dL High TRIG greater than 500 mg/dL Very highStandard traceable to the Center for Disease Conrtrol and Prevention (CDC) test method. Triiodothyronine (T3) Totalo n 03-06-2023 Triiodothyronine (T3) Total 1.29 ng/mL Normal 0.87-1.78 [facility] Comment on above: Result Comment: PERF ORMED BY: [place] [address] PATHOLOGIST SUPERVISOR [employer] RAQUEL LOPEZ M.D. Performed By: #### B STAFF ANTISUBMARINE OFFICER, BMP, PT, PTT, HS TROP, CBC, TSH3, CK #### [address] Triiodothyronine (T3) [Mass/ volume] in Serum or PlasmaOrdered By: Jemal Jones on 03-06-2023 T3 [Mass/Vol] 1.29 ng/mL 0.87-1.78 [facility] US carotid doppler BIon 02-11 US carotid doppler BI [facility] [place] [address] [place] [address] Ultrasound Report Signed Patient: Steven Harding MR#: [id number] 1 : 1940 Acct:[id number] Age/Sex: 83 / F ADM Date: 03/05/23 Loc: Room: [address] [place] [address] Type: ADM INOo Attending Dr: Chuck Chacon [...] Dictation Location: [facility] Tech: Marla Simba Transcribed By: OSCAR 03/06/23 142 Dictated By: Bethel Sabillon MD 03/06/23 1419 Signed By: 03/06/23 142 [facility] Activated partial thrombopla stin time (aPTT) in platelet poor plasma by coagulation aOrdered By: Monique Tierney on 03-05-2023 aPTT Coag (PPP) [Time] 25.4 s 25.1-36.5 [facility] Comment on above: A hematocrit value g reater than 55% may lead to inaccurate results in coagulation testing. Patients having hematocrit values >55% require a special collection tube for coagulation studies. Please contact the laboratory at [phone] for redraw instructions. Automated epithelial cells c ount in urine sediment (number/area)Ordered By: Jemal Jones on 03-05-2023 Epithelial cells Auto (Urine sed) [#/Area] 3-4 [HPF] 0-2 [facility] Automated erythrocytes count in urine sediment (number/area)Ordered By: Jemal Jones on 03-05-2023 RBC Auto (Urine sed) [#/Area] None seen [HPF] 0-4 [facility] Automated leukocytes count i n urine sediment (number/area)Ordered By: Jemal Jones on 03-05-2023 WBC Auto (Urine sed) [#/Area] 3-4 [HPF] 0-4 [facility] Automated urine hyaline cast s count (number/volume)Ordered By: Jemal Jones on 03-05-2023 Hyaline casts Auto (U) [#/Vol] None seen [LPF] 0-1 [facility] B-Type Natriuretic Peptideon 03-05-2023 Natriuretic peptide B (Bld) [Mass/Vol] 42.0 pg/mL Normal 5-100 [facility] Comment on above: Result Comment: PERF ORMED BY: [place] [address] PATHOLOGIST SUPERVISOR [employer] RAQUEL LOPEZ M.D. Performed By: #### B STAFF ANTISUBMARINE OFFICER, BMP, PT, PTT, HS TROP, CBC, TSH3, CK #### [address] Basic Metabolic Panelon 02-11 Anion gap [Moles/Vol] 17.1 mmol/L High 6.0-15.0 [facility] Comment on above: Performed By: #### B STAFF ANTISUBMARINE OFFICER, BMP, PT, PTT, HS TROP, CBC, TSH3, CK #### [facility] [address] Calcium [Mass/Vol] 9.7 mg/dL Normal 8.6-10.3 [facility] Comment on above: Performed By: #### B STAFF ANTISUBMARINE OFFICER, BMP, PT, PTT, HS TROP, CBC, TSH3, CK #### [address] Chloride [Moles/Vol] 93 mmol/L Low 98-107 [facility] Comment on above: Performed By: #### B STAFF ANTISUBMARINE OFFICER, BMP, PT, PTT, HS TROP, CBC, TSH3, CK #### [facility] [address] CO2 [Moles/Vol] 19.4 mmol/L Low 21.0-31.0 [facility] Comment on above: Performed By: #### B STAFF ANTISUBMARINE OFFICER, BMP, PT, PTT, HS TROP, CBC, TSH3, CK #### [facility] [address] Creatinine [Mass/Vol] 0.84 mg/dL Normal 0.60-1.20 [facility] Comment on above: Performed By: #### B STAFF ANTISUBMARINE OFFICER, BMP, PT, PTT, HS TROP, CBC, TSH3, CK #### [facility] [address] Creatinine Clr Calc Pharmacy 46.72 [facility] Comment on above: Performed By: #### B STAFF ANTISUBMARINE OFFICER, BMP, PT, PTT, HS TROP, CBC, TSH3, CK #### [facility] [address] [place] [address] [place] GFR/1.73 sq M.predicted MDRD (S/P/Bld) [Vol rate/Area] mL/min/{1.73_m2} [facility] Comment on above: Performed By: #### B STAFF ANTISUBMARINE OFFICER, BMP, PT, PTT, HS TROP, CBC, TSH3, CK #### [facility] [address] Glucose [Mass/Vol] 85 mg/dL Normal 70-100 [facility] Comment on above: Result Comment: [facility] Glucose Reference Range is dependent on time and content of last meal. Glucose of more than 200 mg/dL in a nonstressed, ambulatory subject supports the diagnosis of Diabetes Mellitus. ADA recommended reference range Performed By: #### B STAFF ANTISUBMARINE OFFICER, BMP, PT, PTT, HS TROP, CBC, TSH3, CK #### [facility] [address] Potassium [Moles/Vol] 4.5 mmol/L Normal 3.5-5.1 [facility] Comment on above: Performed By: #### B STAFF ANTISUBMARINE OFFICER, BMP, PT, PTT, HS TROP, CBC, TSH3, CK #### [facility] [address] Sodium [Moles/Vol] 125 mmol/L Low 136-145 [facility] Comment on above: Performed By: #### B STAFF ANTISUBMARINE OFFICER, BMP, PT, PTT, HS TROP, CBC, TSH3, CK #### [facility] [address] [place] [address] [place] Urea nitrogen [Mass/Vol] 17 mg/dL Normal 7-25 [facility] Comment on above: Performed By: #### B STAFF ANTISUBMARINE OFFICER, BMP, PT, PTT, HS TROP, CBC, TSH3, CK #### [facility] [address] [place] [id number] [place] Basophils Auto (Bld) [#/Vol] Ordered By: Monique Tierney on 03-05-2023 Basophils (Bld) [#/Vol] 0.1 10*3/uL 0.0-0.2 [facility] Basophils/100 WBC Auto (Bld) Ordered By: Monique Tierney on 03-05-2023 Basophils/100 WBC (Bld) 0.5 % . [facility] Bilirubin Test strip Ql (U)O rdered By: Jemal Jones on 03-05-2023 Bilirubin Ql (U) Negative Negative [facility] CT angio neckon 03-05-2023 CT angio neck [facility] [place] [address] [place] [address] CT Scan Report Signed Patient: Steven Harding MR#: [id number] 1 : 1940 Acct:[id number] Age/Sex: 83 / F ADM Date: 03/05/23 Loc: ER Room: Type: [facility] ER Attending Dr: Copies to: Monique Tierney MD Ordering Provider: Monique Tierney MD Date of Service: 03/05/23 CT/CT angio neck: episodic dizziness, episode 2 wks ago face tinglin ([id number]) CT/CT angio head: episodic dizziness, episode 2 [...] right parotid gland. Impression dictated by: Bethel nSyder M.D.03/05/2023 7:34 PM Dictation Location: [place] [address] Transcribed By: [facility] 03/05/231933 Dictated By: Bethel Snyder DO 03/05/231928 Signed By: 03/05/231933 [facility] CT head/brain wo conon 03-05 CT head/brain wo con [facility] [place] [address] CT Scan Report Signed Patient: Steven Harding MR#: [id number] 1 : 1940 Acct:[id number] Age/Sex: 83 / F ADM Date: 03/05/23 Loc: ER Room: Type: [facility] Attending Dr: Copies to: Monique Tierney [...] Bethel Snyder M.D.03/05/2023 7:29 PM Dictation Location: [place] [address] Transcribed By: [facility] 03/05/231928 Dictated By: Bethel Snyder DO 03/05/231927 Signed By: 03/05/2319[address] [facility] Calcium [Mass/volume] in Ser um or PlasmaOrdered By: Monique Tierney on 03-05-2023 Calcium [Mass/Vol] 9.7 mg/dL 8.6-10.3 [facility] Carbon dioxide, total [Moles /volume] in Serum or PlasmaOrdered By: Monique Tierney on 03-05-2023 CO2 [Moles/Vol] 19.4 mmol/L 21.0-31.0 [facility] Chloride [Moles/volume] in S yamilex or PlasmaOrdered By: Monique Tierney on 03-05-2023 Chloride [Moles/Vol] 93 mmol/L 98-107 [facility] Color Auto (U)Ordered By: Sukhi Jones on 03-05-2023 Color (U) Yellow Yellow [facility] Complete Blood Count Auto Di ffon 03-05-2023 Basophils (Bld) [#/Vol] 0.1 10*3/uL Normal 0.0-0.2 [facility] Comment on above: Result Comment: PERF ORMED BY: [place] [address] PATHOLOGIST SUPERVISOR [employer] RAQUEL LOPEZ M.D. Performed By: #### B STAFF ANTISUBMARINE OFFICER, BMP, PT, PTT, HS TROP, CBC, TSH3, CK #### [address] Basophils/100 WBC (Bld) 0.5 % Normal . [facility] Comment on above: Performed By: #### B STAFF ANTISUBMARINE OFFICER, BMP, PT, PTT, HS TROP, CBC, TSH3, CK #### [address] Eosinophils (Bld) [#/Vol] 0.3 10*3/uL Normal 0.0-0.45 [facility] Comment on above: Performed By: #### B STAFF ANTISUBMARINE OFFICER, BMP, PT, PTT, HS TROP, CBC, TSH3, CK #### [address] Eosinophils/100 WBC (Bld) 2.8 % Normal . [facility] Comment on above: Performed By: #### B STAFF ANTISUBMARINE OFFICER, BMP, PT, PTT, HS TROP, CBC, TSH3, CK #### [address] Erythrocyte distribution width (RBC) [Ratio] 12.8 % Normal 11.9-15.3 [facility] Comment on above: Performed By: #### B STAFF ANTISUBMARINE OFFICER, BMP, PT, PTT, HS TROP, CBC, TSH3, CK #### [address] Hematocrit (Bld) [Volume fraction] 39.9 % Normal 34.0-46.4 [facility] Comment on above: Performed By: #### B STAFF ANTISUBMARINE OFFICER, BMP, PT, PTT, HS TROP, CBC, TSH3, CK #### [address] Hemoglobin (Bld) [Mass/Vol] 13.6 g/dL Normal 11.8-15.4 [facility] Comment on above: Performed By: #### B STAFF ANTISUBMARINE OFFICER, BMP, PT, PTT, HS TROP, CBC, TSH3, CK #### [address] Lymphocytes (Bld) [#/Vol] 1.7 10*3/uL Normal 1.00-4.8 [facility] Comment on above: Performed By: #### B STAFF ANTISUBMARINE OFFICER, BMP, PT, PTT, HS TROP, CBC, TSH3, CK #### [address] Lymphocytes/100 WBC (Bld) 14.7 % Normal . [facility] Comment on above: Performed By: #### B STAFF ANTISUBMARINE OFFICER, BMP, PT, PTT, HS TROP, CBC, TSH3, CK #### [address] MCH (RBC) [Entitic mass] 31.3 pg Normal 24.7-34.3 [facility] Comment on above: Performed By: #### B STAFF ANTISUBMARINE OFFICER, BMP, PT, PTT, HS TROP, CBC, TSH3, CK #### [address] MCV (RBC) [Entitic vol] 91.9 fL Normal 80-100 [facility] Comment on above: Performed By: #### B STAFF ANTISUBMARINE OFFICER, BMP, PT, PTT, HS TROP, CBC, TSH3, CK #### [address] Mean Corpuscular HGB Conc 34.0 g/dL Normal 32.0-35.0 [facility] Comment on above: Performed By: #### B STAFF ANTISUBMARINE OFFICER, BMP, PT, PTT, HS TROP, CBC, TSH3, CK #### [address] Monocytes (Bld) [#/Vol] 0.6 10*3/uL Normal 0.0-0.8 [facility] Comment on above: Performed By: #### B STAFF ANTISUBMARINE OFFICER, BMP, PT, PTT, HS TROP, CBC, TSH3, CK #### [address] Monocytes/100 WBC (Bld) 18.39 % Normal 0.00-20.00 [facility] Comment on above: Performed By: #### B STAFF ANTISUBMARINE OFFICER, BMP, PT, PTT, HS TROP, CBC, TSH3, CK #### [address] Monocytes/100 WBC (Bld) 5.4 % Normal . [facility] Comment on above: Performed By: #### B STAFF ANTISUBMARINE OFFICER, BMP, PT, PTT, HS TROP, CBC, TSH3, CK #### [facility] [address] Neutrophils (Bld) [#/Vol] 8.7 10*3/uL High 1.8-7.7 [facility] Comment on above: Performed By: #### B STAFF ANTISUBMARINE OFFICER, BMP, PT, PTT, HS TROP, CBC, TSH3, CK #### [facility] [address] Neutrophils/100 WBC (Bld) 76.6 % Normal . [facility] Comment on above: Performed By: #### B STAFF ANTISUBMARINE OFFICER, BMP, PT, PTT, HS TROP, CBC, TSH3, CK #### [address] NRBC% 0.1 /100{WBC} Normal 0-0.5 [facility] Comment on above: Performed By: #### B STAFF ANTISUBMARINE OFFICER, BMP, PT, PTT, HS TROP, CBC, TSH3, CK #### [address] Platelet mean volume (Bld) [Entitic vol] 7.5 fL Normal 6.3-10.7 [facility] Comment on above: Performed By: #### B STAFF ANTISUBMARINE OFFICER, BMP, PT, PTT, HS TROP, CBC, TSH3, CK #### [address] Platelets (Bld) [#/Vol] 285 10*3/uL Normal 150-450 [facility] Comment on above: Performed By: #### B STAFF ANTISUBMARINE OFFICER, BMP, PT, PTT, HS TROP, CBC, TSH3, CK #### [address] RBC (Bld) [#/Vol] 4.34 10*6/uL Normal 3.60-5.00 [facility] Comment on above: Performed By: #### B STAFF ANTISUBMARINE OFFICER, BMP, PT, PTT, HS TROP, CBC, TSH3, CK #### [address] WBC (Bld) [#/Vol] 11.4 10*3/uL Normal 3.8-11.6 [facility] Comment on above: Performed By: #### B STAFF ANTISUBMARINE OFFICER, BMP, PT, PTT, HS TROP, CBC, TSH3, CK #### [facility] [address] [place] [id number] [place] Creatine Kinaseon 03-05-2023 CK [Catalytic activity/Vol] 18 U/L Low [facility] Comment on above: Performed By: #### B STAFF ANTISUBMARINE OFFICER, BMP, PT, PTT, HS TROP, CBC, TSH3, CK #### [facility] [address] Creatine kinase [Enzymatic a ctivity/volume] in Serum or PlasmaOrdered By: Monique Tierney on 03-05-2023 CK [Catalytic activity/Vol] 18 U/L [facility] Creatinine [Mass/volume] in Serum or PlasmaOrdered By: Monique Tierney on 03-05-2023 Creatinine [Mass/Vol] 0.84 mg/dL 0.60-1.20 [facility] ECG 12 lead ECGon 03-05-2023 ECG 12 lead ECG [facility] [place] [address] [place] [address] Electrocardiograph Report Signed Patient: Steven Harding MR#: [id number] 1 : 1940 Acct:[id number] Age/Sex: 83 / F ADM Date: 03/05/23 Loc: Room: [address] [place] [address] Type: ADM INOo Attending Dr: Chuck Chacon [...] fascicular block Confirmed by Hoang Mancia DO ([id number]) on 03/06/2023 8:08:36 PM Referred By: Electronically Signed By:Hoang Mancia DO Transcribed By: MUS Signed By Hoang Mancia DO [address] [facility] Eosinophils Auto (Bld) [#/Vo l]Ordered By: Monique Tierney on 03-05-2023 Eosinophils (Bld) [#/Vol] 0.3 10*3/uL 0.0-0.45 [facility] Eosinophils/100 WBC Auto (Bl d)Ordered By: Monique Tierney on 03-05-2023 Eosinophils/100 WBC (Bld) 2.8 % . [facility] Erythrocyte distribution wid th Auto (RBC) [Ratio]Ordered By: Monique Tierney on 03-05-2023 Erythrocyte distribution width (RBC) [Ratio] 12.8 % 11.9-15.3 [facility] Glucose [Mass/volume] in Ser um or PlasmaOrdered By: Monique Tierney on 03-05-2023 Glucose [Mass/Vol] 85 mg/dL 70-100 [facility] Comment on above: ADA recommended refe rence rangeRandom Glucose Reference Range is dependent on time and content of last meal. Glucose of more than 200 mg/dL in a nonstressed, ambulatory subject supports the diagnosis of Diabetes Mellitus. Hematocrit Auto (Bld) [Volum e fraction]Ordered By: Monique Tierney on 03-05-2023 Hematocrit (Bld) [Volume fraction] 39.9 % 34.0-46.4 [facility] Hemoglobin [Mass/volume] in BloodOrdered By: Monique Tierney on 03-05-2023 Hemoglobin (Bld) [Mass/Vol] 13.6 g/dL 11.8-15.4 [facility] INR in Platelet poor plasma by Coagulation assayOrdered By: Monique Tierney on 03-05-2023 INR Coag (PPP) [Relative time] 0.9 {INR} [facility] Comment on above: INR Therapeutic Rang e [...] on 03-05-2023 Ketones (U) [Mass/Vol] Trace Negative [facility] Leukocytes [#/volume] correc jazmyne for nucleated erythrocytes in Blood by Automated counOrdered By: Monique Tierney on 03-05-2023 WBC corrected for nucl RBC Auto (Bld) [#/Vol] 11.4 10*3/uL 3.8-11.6 [facility] Lymphocytes Auto (Bld) [#/Vo l]Ordered By: Monique Tierney on 03-05-2023 Lymphocytes (Bld) [#/Vol] 1.7 10*3/uL 1.00-4.8 [facility] Lymphocytes/100 WBC Auto (Bl d)Ordered By: Monique Tierney on 03-05-2023 Lymphocytes/100 WBC (Bld) 14.7 % . [facility] MCH Auto (RBC) [Entitic mass ]Ordered By: Monique Tierney on 03-05-2023 MCH (RBC) [Entitic mass] 31.3 pg 24.7-34.3 [facility] MCHC Auto (RBC) [Mass/Vol]Or dered By: Monique Tierney on 03-05-2023 MCHC (RBC) [Mass/Vol] 34.0 g/dL 32.0-35.0 [facility] MCV Auto (RBC) [Entitic vol] Ordered By: Monique Tierney on 03-05-2023 MCV (RBC) [Entitic vol] 91.9 fL 80-100 [facility] Monocyte distribution width [Entitic volume] in Blood by AutomatedOrdered By: Mnoique Tierney on 03-05-2023 Monocyte distribution width Auto (Bld) [Entitic vol] 18.39 % 0.00-20.00 [facility] Monocytes Auto (Bld) [#/Vol] Ordered By: Monique Tierney on 03-05-2023 Monocytes (Bld) [#/Vol] 0.6 10*3/uL 0.0-0.8 [facility] Monocytes/100 WBC Auto (Bld) Ordered By: Monique Tierney on 03-05-2023 Monocytes/100 WBC (Bld) 5.4 % . [facility] Natriuretic peptide B [Mass/ Vol]Ordered By: Monique Tierney on 03-05-2023 Natriuretic peptide B (Bld) [Mass/Vol] 42.0 pg/mL 5-100 [facility] Neutrophils Auto (Bld) [#/Vo l]Ordered By: Monique Tierney on 03-05-2023 Neutrophils (Bld) [#/Vol] 8.7 10*3/uL 1.8-7.7 [facility] Neutrophils/100 WBC Auto (Bl d)Ordered By: Monique Tierney on 03-05-2023 Neutrophils/100 WBC (Bld) 76.6 % . [facility] Nitrite Test strip Ql (U)Ord ered By: Jemal Jones on 03-05-2023 Nitrite Ql (U) Negative Negative [facility] No Panel InformationOrdered By: Monique Tierney on 03-05-2023 Estimated GFR (CKD-EPI) > 60.0 mL/Min [facility] Creatinine Clearance (Chem 46.72 [facility] Nucleated erythrocytes [Pres ence] in Blood by Automated countOrdered By: Monique Tierney on 03-05-2023 Nucleated RBC Auto Ql (Bld) 0.1 /100{WBC} 0-0.5 [facility] Partial Thromboplastin Timeo n 03-05-2023 aPTT Coag (Bld) [Time] 25.4 s Normal 25.1-36.5 [facility] Comment on above: Result Comment: A he matocrit value greater than 55% may lead to inaccurate results in coagulation testing. Patients having hematocrit values >55% require a special collection tube for coagulation studies. Please contact the laboratory at [phone] for redraw instructions. PERFORMED BY: [place] [address] PATHOLOGIST SUPERVISOR [employer] RAQUEL LOPEZ M.D. Performed By: #### B STAFF ANTISUBMARINE OFFICER, BMP, PT, PTT, HS TROP, CBC, TSH3, CK #### [address] Platelet mean volume Auto (B ld) [Entitic vol]Ordered By: Monique Tierney on 03-05-2023 Platelet mean volume (Bld) [Entitic vol] 7.5 fL 6.3-10.7 [facility] Platelets Auto (Bld) [#/Vol] Ordered By: Monique Tierney on 03-05-2023 Platelets (Bld) [#/Vol] 285 10*3/uL 150-450 [facility] Potassium [Moles/volume] in Serum or PlasmaOrdered By: Monique Tierney on 03-05-2023 Potassium [Moles/Vol] 4.5 mmol/L 3.5-5.1 [facility] Protein Auto test strip (U) [Mass/Vol]Ordered By: Jemal Jones on 03-05-2023 Protein (U) [Mass/Vol] Negative Negative [facility] Prothrombin Time INRon 03-05 INR Coag (PPP) [Relative time] 0.9 {INR} Normal [facility] Comment on above: Result Comment: INR Therapeutic [...] 3 - 4.5 Performed By: #### B STAFF ANTISUBMARINE OFFICER, BMP, PT, PTT, HS TROP, CBC, TSH3, CK #### [facility] [address] PT Coag (PPP) [Time] 10.9 s Normal 9.0-12.9 [facility] Comment on above: Result Comment: A he matocrit value greater than 55% may lead to inaccurate results in coagulation testing. Patients having hematocrit values >55% require a special collection tube for coagulation studies. Please contact the laboratory at [phone] for redraw instructions. Performed By: #### B STAFF ANTISUBMARINE OFFICER, BMP, PT, PTT, HS TROP, CBC, TSH3, CK #### [facility] [address] [place] [id number] [facility] Prothrombin time (PT)Ordered By: Monique Tierney on 03-05-2023 PT Coag (PPP) [Time] 10.9 s 9.0-12.9 [facility] Comment on above: A hematocrit value g reater than 55% may lead to inaccurate results in coagulation testing. Patients having hematocrit values >55% require a special collection tube for coagulation studies. Please contact the laboratory at [phone] for redraw instructions. RBC Auto (Bld) [#/Vol]Ordere d By: Monique Tierney on 03-05-2023 RBC (Bld) [#/Vol] 4.34 10*6/uL 3.60-5.00 [facility] Serum or plasma anion gap de terminationOrdered By: Monique Tierney on 03-05-2023 Anion gap [Moles/Vol] 17.1 mmol/L 6.0-15.0 [facility] Sodium [Moles/volume] in Ser um or PlasmaOrdered By: Monique Tierney on 03-05-2023 Sodium [Moles/Vol] 125 mmol/L 136-145 [facility] Specific gravity Auto test s trip (U) [Rel density]Ordered By: Jemal Jones on 03-05-2023 Specific gravity (U) [Rel density] 1.015 1.001-1.[address] [facility] Thyroid Stimulating Hormoneo n 03-05-2023 TSH Qn 0.01 m[IU]/L Low 0.45-5.33 [facility] Comment on above: Result Comment: PERF ORMED BY: [place] [address] PATHOLOGIST [employer] RAQUEL LOPEZ M.D. Performed By: #### B STAFF ANTISUBMARINE OFFICER, BMP, PT, PTT, HS TROP, CBC, TSH3, CK #### [facility] [address] Thyrotropin [Units/volume] i n Serum or PlasmaOrdered By: Monique Tierney on 03-05-2023 TSH Qn 0.01 m[IU]/L 0.45-5.33 [facility] Troponin I High Sensitivityo n 03-05-2023 Troponin I High Sensitivity 6.3 pg/mL Normal 0.0-15.0 [facility] Comment on above: Result Comment: PERF ORMED BY: [facility] [address] [place] [address] PATHOLOGIST SUPERVISOR [employer] RAQUEL LOPEZ M.D. Performed By: #### B STAFF ANTISUBMARINE OFFICER, BMP, PT, PTT, HS TROP, CBC, TSH3, CK #### [facility] [address] Troponin I.cardiac [Mass/vol ume] in Serum or Plasma by Detection limit <= 0.01 ng/Ordered By: Monique Tierney on 03-05-2023 Troponin I.cardiac DL <= 0.01 ng/mL [Mass/Vol] 6.3 pg/mL 0.0-15.0 [facility] Urea nitrogen [Mass/volume] in Serum or PlasmaOrdered By: Monique Tierney on 03-05-2023 Urea nitrogen [Mass/Vol] 17 mg/dL 7-25 [facility] Urine bacteria detection by automated methodOrdered By: Jemal Jones on 03-05-2023 Bacteria Auto Ql (U) 1+ None Seen [facility] Urine clarity by refractomet ry automatedOrdered By: Jemal Jones on 03-05-2023 Clarity Refractometry automated (U) Clear Clear [facility] Urine glucose measurement by automated test strip (mass/volume)Ordered By: Jemal Jones on 03-05-2023 Glucose Auto test strip (U) [Mass/Vol] Normal mg/dL Normal [facility] Urine hemoglobin detection b y automated test stripOrdered By: Jemal Jones on 03-05-2023 Hemoglobin Auto test strip Ql (U) Negative Negative [facility] Urine leukocyte esterase det ection by automated test stripOrdered By: Jemal Jones on 03-05-2023 Leukocyte esterase Auto test strip Ql (U) 1+ Negative [facility] Urine sediment renal epithel ial cell count by microscopy (number/high power field)Ordered By: Jemal Jones on 03-05-2023 Epithelial cells.renal LM.HPF (Urine sed) [#/Area] Rare [HPF] 0-1 [facility] Urobilinogen Auto test strip (U) [Mass/Vol]Ordered By: Jemal Jones on 03-05-2023 Urobilinogen (U) [Mass/Vol] Normal mg/dL Normal [facility] WBC Auto (Bld) [#/Vol]Ordere d By: Monique Tierney on 03-05-2023 WBC (Bld) [#/Vol] 11.4 10*3/uL 3.8-11.6 [facility] XR chest 2V*on 03-05-2023 XR chest 2V* [facility] [place] [address] [place] [address] XRay Report Signed Patient: Steven Harding MR#: [id number] 1 : 1940 Acct:[id number] Age/Sex: 83 / F ADM Date: 03/05/23 Loc: ER Room: Type: [facility] ER Attending Dr: Copies to: Monique [...] Bethel Snyder M.D.03/05/2023 7:27 PM Dictation Location: [place] [address] Transcribed By: [facility] 03/05/231926 Dictated By: Bethel Snyder DO 03/05/231925 Signed By: 03/05/2319[address] [facility] pH Auto test strip (U)Ordere d By: Jemal Jones on 03-05-2023 pH (U) 6.0 [pH] 5.0-9.0 [facility] Office Visit (Cardiology)on 02-16-2023 Follow-up visit Diagnoses/Problems [...] Weight Tips; Status:Complete - Retrospective Authorization; Done: [id number] Some eating tips that can help you lose weight.; Status:Complete - Retrospective Authorization; Done: [id number] PMH: Coronary artery disease involving ekuk coronary artery of ekuk heart without angina pectoris, Mixed hyperlipidemia Renew: Atorvastatin Calcium 80 MG Oral Tablet; TAKE 1 TABLET AT BEDTIME SocHx: Former smoker Tobacco Use Screening; Status:Complete; Done: [id number] Status post percutaneous transluminal coronary angioplasty, Two-vessel [...] FOR CHEST PAIN.CALL 911 IF PAIN PERSISTS. STAFF ANTISUBMARINE OFFICER Thyroid 60 MG Oral TabletTAKE 1 TABLET [...] No alcoho (more content not included)... Normal [employer] Tobacco Screening.on 023 Fall risk assessment a) No falls within the last year [facility] [employer] 250 DO Work Phone: Tobacco use status CP b) No [facility] [employer] 250 DO Work Phone: REVERSE T3on 10-17-2022 Reverse T3, Serum 18.8 ng/dL Normal 9.2-24.1 [facility] Comment on above: Performed By: #### R EVRT3 #### [facility] [address] [place] [address] Dr. Ellie Smith T3, TOTAL (TRIIODOTHYRONINE) on 10-06-2022 T3, TOTAL 137 ng/dL Normal 71-180 [facility] Comment on above: Performed By: #### P OCGLUC #### [facility] [address] [place] [address] Dr. Ellie Smith FREE T3on 10-05-2022 FREE T3 3.03 pg/mlL Normal 2.18-3.98 [facility] Comment on above: Performed By: #### L ACT #### [facility] [address] [place] [address] Dr. Ellie Smith FREE T4on 10-05-2022 Free T4 [Mass/Vol] 1.02 ng/dL Normal 0.76-1.46 [facility] Comment on above: Performed By: #### F T4 #### [facility] [address] [place] [address] Dr. Ellie Smith TSHon 10-05-2022 TSH 0.032 uIU/mL Critically low 0.358-3.74 0 [facility] Comment on above: Performed By: #### L ACT #### [facility] [address] [place] [address] Dr. Ellie Smith Office Visit (Cardiology)on 08-24-2022 [...] Done: 24Aug2022 PMH: Coronary artery disease involving ekuk coronary artery of ekuk heart without angina pectoris Renew: Aspirin EC 81 MG Oral Tablet Delayed Release; TAKE 1 TABLET DAILY Renew: Clopidogrel Bisulfate 75 MG Oral Tablet; TAKE 1 TABLET BY MOUTH DAILY PMH: Coronary artery disease involving ekuk coronary artery of ekuk heart without angina pectoris, Hypertension, benign Renew: Losartan Potassium 100 MG Oral Tablet; TAKE 1 TABLET DAILY PMH: Coronary artery disease involving ekuk coronary artery of ekuk heart without angina pectoris, Mixed hyperlipidemia Renew: [...] FOR CHEST PAIN.CALL 911 IF PAIN PERSISTS. STAFF ANTISUBMARINE OFFICER Thyroid 60 MG Oral TabletTAKE 1 TABLET [...] shaking Social History Problems Former smoker (V15.82) (Z87.244) nicotine lozenges No alcohol use No caffeine use No illicit drug use Review of Systems Constitutional: not feeling tired. Cardiovascular: no intermittent leg claudication and as noted in HPI. Respirat (more content not included)... Normal [employer] Tobacco Screening.on 023 Adult depression screening assessment No [facility] [email or web address] 250 DO Work Phone: Fall risk assessment a) No falls within the last year [facility] [employer] jayne 250 DO Work Phone: Tobacco use status CPHS b) No [facility] [employer] jayne 250 DO Work Phone: GLYCOHEMOGLOBIN A1Con 2022 ADA RECOMMENDATION SEE BELOW Normal [facility] Comment on above: Result Comment: ADA RECOMMENDED LIMIT 4.0 - 6.0 ADA THERAPEUTIC TARGET < 7.0 ACTION SUGGESTED > 7.0 Performed By: #### A 1C #### [facility] [address] [place] [address] Dr. Ellie Smith Glucose [Mass/Vol] 114 mg/dL Normal [facility] Comment on above: Performed By: #### A 1C #### [facility] [address] [place] [address] Dr. Ellie Smith HbA1c (Bld) [Mass fraction] 5.6 % Normal 4.5-6.2 [facility] Comment on above: Performed By: #### A 1C #### [facility] [address] [place] [address] Dr. Ellie Smith LIPID PROFILEon 08-15-2022 CHOL-HDL RATIO NORM SEE BELOW Normal [facility] Comment on above: Result Comment: 3.3 - 4.4 LOW RISK 4.4 - 7.1 AVERAGE RISK 7.1 - 11.0 MODERATE RISK >11.0 HIGH RISK Performed By: #### R EVRT3 #### [facility] [address] [address] [address] Ellie Smith Cholesterol [Mass/Vol] 116 mg/dL Normal <=200 [facility] Comment on above: Performed By: #### R EVRT3 #### [facility] [address] [place] [address] Dr. Ellie Smith Cholesterol in HDL [Mass/Vol] 60 mg/dL Normal 40-60 [facility] Comment on above: Performed By: #### R EVRT3 #### [facility] [address] [address] [address] Ellie Smith Cholesterol in LDL [Mass/Vol] 46.0 mg/dL Normal [facility] Comment on above: Performed By: #### R EVRT3 #### [facility] [address] [place] [address] Dr. Ellie Smith Cholesterol.total/Chol esterol in HDL [Mass ratio] 1.9 {ratio} Normal [facility] Comment on above: Performed By: #### R EVRT3 #### [facility] [address] [address] [address] Ellie Smith HDL NORMAL > or = 60 mg/dl - LO W CARDIOVASCULAR RISK <40 mg/dl - HIGH CARDIOVASCULAR RISK Normal [facility] Comment on above: Performed By: #### R EVRT3 #### [facility] [address] [place] [address] Dr. Ellie Smith LDL CALC NORMAL SEE BELOW Normal [facility] Comment on above: Result Comment: <100 mg/dl OPTIMAL 100 - 129 mg/dl NEAR OR ABOVE OPTIMAL 130 - 159 mg/dl BORDERLINE HIGH 160 - 189 mg/dl HIGH >190 mg/dl VERY HIGH Performed By: #### R EVRT3 #### [facility] [address] [place] [address] Dr. Ellie Smith Triglyceride [Mass/Vol] 50 mg/dL Normal <=150 [facility] Comment on above: Performed By: #### R EVRT3 #### [facility] [address] [place] [address] Dr. Ellie Smith VLDL CALC 10.0 mg/dL Normal [facility] Comment on above: Performed By: #### R EVRT3 #### [facility] [address] [place] [address] Dr. Ellie Smith PROF 14(COMP METB)on 023 Albumin [Mass/Vol] 3.9 g/dL Normal 3.4-5.0 [facility] Comment on above: Performed By: #### R EVRT3 #### [facility] [address] [place] [address] Dr. Ellie Smith Albumin/Globulin [Mass ratio] 1.2 {ratio} Normal [facility] Comment on above: Performed By: #### R EVRT3 #### [facility] [address] [place] [address] Dr. Ellie Smith ALP [Catalytic activity/Vol] 56 U/L Normal 46-116 [facility] Comment on above: Performed By: #### R EVRT3 #### [facility] [address] [place] [address] Dr. Ellie Smith ALT [Catalytic activity/Vol] 27 U/L Normal 14-59 [facility] Comment on above: Performed By: #### R EVRT3 #### [facility] [address] [place] [address] Dr. Ellie Smith Anion gap [Moles/Vol] 14.1 mmol/L Normal [facility] Comment on above: Performed By: #### R EVRT3 #### [facility] [address] [place] [address] Dr. Ellie Smith AST [Catalytic activity/Vol] 18 U/L Normal 15-37 [facility] Comment on above: Performed By: #### R EVRT3 #### [facility] [address] [place] [address] Dr. Ellie Smith Bilirubin [Mass/Vol] 0.4 mg/dL Normal 0.2-1.0 [facility] Comment on above: Performed By: #### R EVRT3 #### [facility] [address] [place] [address] Dr. Ellie Smith Calcium [Mass/Vol] 9.2 mg/dL Normal 8.5-10.1 [facility] Comment on above: Performed By: #### R EVRT3 #### [facility] [address] [place] [address] Dr. Ellie Smith Chloride [Moles/Vol] 106 mmol/L Normal 98-107 [facility] Comment on above: Performed By: #### R EVRT3 #### [facility] [address] [place] [address] Dr. Ellie Smith CO2 [Moles/Vol] 26.1 mmol/L Normal 21.0-32.0 [facility] Comment on above: Performed By: #### R EVRT3 #### [facility] [address] [place] [address] Dr. Ellie Smith Creatinine [Mass/Vol] 0.68 mg/dL Normal 0.55-1.02 [facility] Comment on above: Performed By: #### R EVRT3 #### [facility] [address] [place] [address] Dr. Ellie Smith EGFR-AF AZERBAIJANI >60 Normal >=60 [facility] Comment on above: Performed By: #### R EVRT3 #### [facility] [address] [place] [address] Dr. Ellie Smith EGFR-NON AF AZERBAIJANI >60 Normal >=60 [facility] Comment on above: Performed By: #### R EVRT3 #### [facility] [address] [place] [address] Dr. Ellie Smith Globulin (S) [Mass/Vol] 3.2 g/dL Normal [facility] Comment on above: Performed By: #### R EVRT3 #### [facility] [address] [place] [address] Dr. Ellie Smith Glucose [Mass/Vol] 99 mg/dL Normal 74-106 [facility] Comment on above: Performed By: #### R EVRT3 #### [facility] [address] [place] [address] Dr. Ellie Smith Potassium [Moles/Vol] 4.2 mmol/L Normal 3.5-5.1 [facility] Comment on above: Performed By: #### R EVRT3 #### [facility] [address] [place] [address] Dr. Ellie Smith Protein [Mass/Vol] 7.1 g/dL Normal 6.4-8.2 [facility] Comment on above: Performed By: #### R EVRT3 #### [facility] [address] [place] [address] Dr. Ellie Smith Sodium [Moles/Vol] 142 mmol/L Normal 136-145 [facility] Comment on above: Performed By: #### R EVRT3 #### [facility] [address] [place] [address] Dr. Ellie Smith Urea nitrogen [Mass/Vol] 16.0 mg/dL Normal 7.0-18.0 [facility] Comment on above: Performed By: #### R EVRT3 #### [facility] [address] [place] [address] Dr. Ellie Smith Urea nitrogen/Creatinine [Mass ratio] 23.5 mg/mg Normal [facility] Comment on above: Performed By: #### R EVRT3 #### [facility] [address] [place] [address] Dr. Ellie Smith REVERSE T3on 04-15-2022 Reverse T3, Serum 15.4 ng/dL Normal 9.2-24.1 [facility] Comment on above: Result Comment: This test was developed and its performance characteristics determined by [employer]. It has not been cleared or approved by the Food and Drug Administration. Performed By: #### L ACT #### [facility] [address] [place] [address] Dr. Ellie Smith T3, TOTAL (TRIIODOTHYRONINE) on 04-13-2022 T3, TOTAL 144 ng/dL Normal 71-180 [facility] Comment on above: Performed By: #### A 1C #### [facility] [address] [place] [address] Dr. Ellie Smith FREE T3on 04-12-2022 FREE T3 2.93 pg/mlL Normal 2.18-3.98 [facility] Comment on above: Performed By: #### T SH, FT3 #### [facility] [address] [place] [address] Dr. Ellie Smith FREE T4on 04-12-2022 Free T4 [Mass/Vol] 0.89 ng/dL Normal 0.76-1.46 [facility] Comment on above: Performed By: #### R EVRT3 #### [facility] [address] [place] [address] Dr. Ellie Smith TSHon 04-12-2022 TSH 0.116 uIU/mL Critically low 0.358-3.74 0 [facility] Comment on above: Performed By: #### T SH, FT3 #### [facility] [address] [address] [address] Ellie Smith LIPID PROFILEon 03-29-2022 CHOL-HDL RATIO NORM SEE BELOW Normal [facility] Comment on above: Result Comment: 3.3 - 4.4 LOW RISK 4.4 - 7.1 AVERAGE RISK 7.1 - 11.0 MODERATE RISK >11.0 HIGH RISK Performed By: #### A 1C #### [facility] [address] [address] [address] Ellie Smith Cholesterol [Mass/Vol] 102 mg/dL Normal <=200 [facility] Comment on above: Performed By: #### A 1C #### [facility] [address] [address] [address] Ellie Smith Cholesterol in HDL [Mass/Vol] 56 mg/dL Normal 40-60 [facility] Comment on above: Performed By: #### A 1C #### [facility] [address] [address] [address] Ellie Smith Cholesterol in LDL [Mass/Vol] 36.8 mg/dL Normal [facility] Comment on above: Performed By: #### A 1C #### [facility] [address] [address] [address] Ellie Smith Cholesterol.total/Chol esterol in HDL [Mass ratio] 1.8 {ratio} Normal [facility] Comment on above: Performed By: #### A 1C #### [facility] [address] [address] [address] Ellie Smith HDL NORMAL > or = 60 mg/dl - LO W CARDIOVASCULAR RISK <40 mg/dl - HIGH CARDIOVASCULAR RISK Normal [facility] Comment on above: Performed By: #### A 1C #### [facility] [address] [address] [address] Ellie Smith LDL CALC NORMAL SEE BELOW Normal [facility] Comment on above: Result Comment: <100 mg/dl OPTIMAL 100 - 129 mg/dl NEAR OR ABOVE OPTIMAL 130 - 159 mg/dl BORDERLINE HIGH 160 - 189 mg/dl HIGH >190 mg/dl VERY HIGH Performed By: #### A 1C #### [facility] [address] [place] [address] Dr. Ellie Smith Triglyceride [Mass/Vol] 46 mg/dL Normal <=150 [facility] Comment on above: Performed By: #### A 1C #### [facility] [address] [place] [address] Dr. Ellie Smith VLDL CALC 9.2 mg/dL Normal [facility] Comment on above: Performed By: #### A 1C #### [facility] [address] [place] [address] Dr. Ellie OVALLECampbelltondamaris 03-29-2022 AST [Catalytic activity/Vol] 17 U/L Normal 15-37 [facility] Comment on above: Performed By: #### A 1C #### [facility] [address] [place] [address] [facility] 03-29-2022 ALT [Catalytic activity/Vol] 30 U/L Normal 14-59 [facility] Comment on above: Performed By: #### A 1C #### [facility] [address] [place] [address] Dr. 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 Hooks Jan 18, 2022: dCX PCI/Jean Marie 2.5/34mm, 2.75/8mm mRCA PCI/Jean Marie 3.0/12 AND 3.5/30mm Type B dissection Feb 03, 2022 Staged LAD PCI/Warren 2.25/26mm Diag2 provisional PTCA Daily activity 4 [...] Status:Complete; Done: 17Mar2022 Coronary artery disease involving ekuk coronary artery of ekuk heart without angina pectoris, Echocardiogram abnormal Disability [...] FOR CHES (more content not included)... Normal [employer] Tobacco Screening.on 022 Adult depression screening assessment No [facility] [employer] DO Work Phone: Fall risk assessment a) No falls within the last year [facility] [employer] DO Work Phone: Tobacco use status CPHS b) No [facility] [employer] DO Work Phone: PHQ-2 [facility] 02-15-2022 Adult depression screening assessment Yes [facility] [employer] 250 DO Work Phone: Adult depression screening assessment No [facility] [employer] 250 DO Work Phone: Fall risk assessment a) No falls within the last year [facility] [employer] 250 DO Work Phone: Tobacco use status CPHS b) No [facility] [employer] 250 DO Work Phone: PHQ-2 VITALS 0-Not at all [facility] [employer] 250 DO Work Phone: PHQ-2 VITALS 3-Nearly every day [facility] 250 DO Work Phone: PHQ-2 VITALS 1-Several days [facility] [employer] 250 DO Work Phone: PHQ-2 VITALS Very Difficult [facility] [employer] 250 DO Work Phone: Activated partial thrombopla stin time (aPTT) in platelet poor plasma by coagulation aOrdered By: Diony Hooks on 02-03-2022 aPTT Coag (PPP) [Time] 31.4 s 25.1-36.5 [facility] Basophils Auto (Bld) [#/Vol] Ordered By: Diony Hooks on 02-03-2022 Basophils (Bld) [#/Vol] 0.1 10*3/uL 0.0-0.2 [facility] Basophils/100 WBC Auto (Bld) Ordered By: Diony Hooks on 02-03-2022 Basophils/100 WBC (Bld) 0.6 % . [facility] Blood hemoglobin measurement (mass/volume)Ordered By: Diony Hooks on 02-03-2022 Hemoglobin (Bld) [Mass/Vol] 14.3 g/dL 11.8-15.4 [facility] Blood leukocytes automated c ount (number/volume)Ordered By: Diony Hooks on 02-03-2022 WBC (Bld) [#/Vol] 12.0 10*3/uL 4.5-11.0 [facility] Eosinophils Auto (Bld) [#/Vo l]Ordered By: Diony Hooks on 02-03-2022 Eosinophils (Bld) [#/Vol] 0.4 10*3/uL 0.0-0.45 [facility] Eosinophils/100 WBC Auto (Bl d)Ordered By: Diony Hooks on 02-03-2022 Eosinophils/100 WBC (Bld) 3.4 % . [facility] Erythrocyte distribution wid th Auto (RBC) [Ratio]Ordered By: Diony Hooks on 02-03-2022 Erythrocyte distribution width (RBC) [Ratio] 14.4 % 11.9-15.3 [facility] Hematocrit Auto (Bld) [Volum e fraction]Ordered By: Diony Hooks on 02-03-2022 Hematocrit (Bld) [Volume fraction] 42.4 % 34.0-46.4 [facility] Laboratory - CoagulationOrde red By: Diony Hooks on 02-03-2022 PT Coag (PPP) [Time] 10.9 s 9.0-12.9 [facility] - Hematology and Cell countsOrdered By: Diony Hooks on 02-03-2022 Nucleated RBC/100 WBC (Bld) [Ratio] 0.0 % 0-0.5 [facility] Lymphocytes Auto (Bld) [#/Vo l]Ordered By: Diony Hooks on 02-03-2022 Lymphocytes (Bld) [#/Vol] 2.1 10*3/uL 1.00-4.8 [facility] Lymphocytes/100 WBC Auto (Bl d)Ordered By: Diony Hooks on 02-03-2022 Lymphocytes/100 WBC (Bld) 17.5 % . [facility] MCH Auto (RBC) [Entitic mass ]Ordered By: Diony Hooks on 02-03-2022 MCH (RBC) [Entitic mass] 31.5 pg 24.7-34.3 [facility] MCHC Auto (RBC) [Mass/Vol]Or dered By: Diony Hooks on 02-03-2022 MCHC (RBC) [Mass/Vol] 33.8 g/dL 32.0-35.0 [facility] MCV Auto (RBC) [Entitic vol] Ordered By: Diony Hooks on 02-03-2022 MCV (RBC) [Entitic vol] 93.2 fL 80-100 [facility] Monocytes Auto (Bld) [#/Vol] Ordered By: Diony Hooks on 02-03-2022 Monocytes (Bld) [#/Vol] 0.5 10*3/uL 0.0-0.8 [facility] Monocytes/100 WBC Auto (Bld) Ordered By: Diony Hooks on 02-03-2022 Monocytes/100 WBC (Bld) 4.4 % . [facility] Neutrophils Auto (Bld) [#/Vo l]Ordered By: Diony Hooks on 02-03-2022 Neutrophils (Bld) [#/Vol] 8.9 10*3/uL 1.8-7.7 [facility] Neutrophils/100 WBC Auto (Bl d)Ordered By: Diony Hooks on 02-03-2022 Neutrophils/100 WBC (Bld) 74.1 % . [facility] Platelet mean volume Auto (B ld) [Entitic vol]Ordered By: Diony Hooks on 02-03-2022 Platelet mean volume (Bld) [Entitic vol] 7.5 fL 6.3-10.7 [facility] Platelet poor plasma interna tional normalized ratio (INR) by coagulation assay (relatOrdered By: Diony Hooks on 02-03-2022 INR Coag (PPP) [Relative time] 1.0 {INR} [facility] Comment on above: INR Therapeutic Rang e [...] 02-03-2022 Platelets (Bld) [#/Vol] 337 10*3/uL 150-450 [facility] RBC Auto (Bld) [#/Vol]Ordere d By: Diony Hooks on 02-03-2022 RBC (Bld) [#/Vol] 4.56 10*6/uL 3.60-5.00 [facility] COVID-19 SOFIAOrdered By: anup Jessee on 02-01-2022 SARS-CoV+SARS-CoV-2 (COVID-19) Ag IA.rapid Ql (Resp) Negative Negative [facility] Comment on above: This is a duplicate Kasey SARS Antigen (JERRY) result to be used for statistical tracking purpose only. Creatinine and Glomerular fi ltration rate.predicted panel (S/P/Bld)Ordered By: Diony Hooks on 02-01-2022 Creatinine [Mass/Vol] 0.85 mg/dL 0.44-1.03 [facility] Estimated glomerular filtrat ion rate (GFR) non- AmericanOrdered By: Diony Hooks on 02-01-2022 GFR/1.73 sq M.predicted among non-blacks MDRD (S/P/Bld) [Vol rate/Area] > 60 mL/Min [facility] No Panel InformationOrdered By: Diony Hooks on 02-01-2022 Estimated GFR () > 60 mL/Min [facility] Comment on above: GFR estimated refere nce range: According to KDOQI guidelines, <60 ml/min/1.73m2 is sufficient to diagnose a patient with chronic kidney disease. Pharmacy Creatinine Clearance (Chem N/A [facility] SARS Antigen (LFIA) [facility] Serum or plasma calcium norma urement (mass/volume)Ordered By: Diony Hooks on 02-01-2022 Calcium [Mass/Vol] 9.7 mg/dL 8.2-10.2 [facility] Serum or plasma chloride tam surement (moles/volume)Ordered By: Diony Hooks on 02-01-2022 Chloride [Moles/Vol] 97 mmol/L 95-114 [facility] Serum or plasma glucose norma urement (mass/volume)Ordered By: Diony Hooks on 02-01-2022 Glucose [Mass/Vol] 86 mg/dL 70-100 [facility] Comment on above: ADA recommended refe rence range Random Glucose Reference Range is dependent on time and content of last meal. Glucose of more than 200 mg/dL in a nonstressed, ambulatory subject supports the diagnosis of Diabetes Mellitus. Serum or plasma potassium me asurement (moles/volume)Ordered By: Diony Hooks on 02-01-2022 Potassium [Moles/Vol] 4.7 mmol/L 3.5-5.1 [facility] Serum or plasma sodium measu rement (moles/volume)Ordered By: Diony Hooks on 02-01-2022 Sodium [Moles/Vol] 132 mmol/L 136-146 [facility] Serum or plasma total carbon dioxide measurement (moles/volume)Ordered By: Diony Hooks on 02-01-2022 CO2 [Moles/Vol] 26.0 mmol/L 22.0-30.0 [facility] Serum or plasma urea nitroge n measurement (mass/volume)Ordered By: Diony Hooks on 02-01-2022 Urea nitrogen [Mass/Vol] 10 mg/dL 03-04 [facility] BNPon 01-28-2022 Natriuretic peptide B (Bld) [Mass/Vol] 945.0 pg/mL Normal <=1,800.0 [facility] Comment on above: Performed By: #### R [id number] #### [facility] [address] [address] [address] Ellie Smith CARDIAC RAQUEL ADMITon 022 CK [Catalytic activity/Vol] 122 U/L Normal 26-192 [facility] Comment on above: Performed By: #### R [id number] #### [facility] [address] [address] [address] Ellie Smith CK.MB [Mass/Vol] 0.65 ng/mL Normal <=3.60 [facility] Comment on above: Performed By: #### R [id number] #### [facility] [address] [address] [address] Ellie Smith HSTROP 63.5 pg/mL Critically high 4.0-51.3 [facility] Comment on above: Result Comment: CUT- OFF POINTS HAVE BEEN ESTABLISHED BASED ON THE FOURTH UNIVERSAL DEFINITIONS OF MYOCARDIAL INFARCTION. THE UPPER REFERENCE LIMIT (URL) OF TROPONIN, DEFINED THE 99TH PERCENTILE OF cTnI DISTRIBUTION IN A REFERENCE POPULATION, HAS BEEN CONFIRMED THE DECISION THRESHOLD FOR AL DIAGNOSIS. Performed By: #### R [id number] #### [facility] [address] [address] [address] Ellie Smith MATEO 26 ng/mL Normal 9-82 [facility] Comment on above: Performed By: #### R [id number] #### [facility] [address] [address] [address] Ellie Smith CBC AUTO DIFFon 01-28-2022 BASO # 0.1 103/ul Normal 0.0-0.1 [facility] Comment on above: Performed By: #### L ACT #### [facility] [address] [address] [address] Ellie Smith Basophils/100 WBC (Bld) 0.6 % Normal 0.2-2.0 [facility] Comment on above: Performed By: #### L ACT #### [facility] [address] [place] [address] Dr. Ellie Smith EO # 0.4 103/ul Normal 0.0-0.7 [facility] Comment on above: Performed By: #### L ACT #### [facility] [address] [address] [address] Ellie Smith Eosinophils/100 WBC (Bld) 4.4 % Normal 0.9-7.0 [facility] Comment on above: Performed By: #### L ACT #### [facility] [address] [address] [address] Ellie Smith Erythrocyte distribution width (RBC) [Ratio] 13.7 % Normal 11.0-15.0 [facility] Comment on above: Performed By: #### L ACT #### [facility] [address] [address] [address] Ellie Smith Hematocrit (Bld) [Volume fraction] 35.8 % Critically low 36.0-48.0 [facility] Comment on above: Performed By: #### L ACT #### [facility] [address] [address] [address] Ellie Smith Hemoglobin (Bld) [Mass/Vol] 11.9 g/dL Critically low 12.0-16.0 [facility] Comment on above: Performed By: #### L ACT #### [facility] [address] [place] [address] Dr. Ellie Smith IG # 0.03 10e3/ul Normal 0.00-0.03 [facility] Comment on above: Performed By: #### L ACT #### [facility] [address] [place] [address] Dr. Ellie Smith IG % 0.4 % Normal 0.0-0.5 [facility] Comment on above: Performed By: #### L ACT #### [facility] [address] [place] [address] Dr. Ellie Smith LYMPH # 1.7 103/ul Normal 1.2-3.8 [facility] Comment on above: Performed By: #### L ACT #### [facility] [address] [place] [address] Dr. Ellie Smith Lymphocytes/100 WBC (Bld) 19.6 % Critically low 20.5-60.0 [facility] Comment on above: Performed By: #### L ACT #### [facility] [address] [place] [address] Dr. Ellie Smith MANUAL DIFF REQ NO Normal [facility] Comment on above: Performed By: #### L ACT #### [facility] [address] [place] [address] Dr. Ellie Smith MCH (RBC) [Entitic mass] 31.4 pg Normal 26.7-34.0 [facility] Comment on above: Performed By: #### L ACT #### [facility] [address] [place] [address] Dr. Ellie Smith MCHC (RBC) [Mass/Vol] 33.2 g/dL Normal 29.9-35.2 [facility] Comment on above: Performed By: #### L ACT #### [facility] [address] [place] [address] Dr. Ellie Smith MCV (RBC) [Entitic vol] 94.5 fL Normal 81.0-99.0 [facility] Comment on above: Performed By: #### L ACT #### [facility] [address] [place] [address] Dr. Ellie Smith MONO # 0.5 103/ul Normal 0.3-0.8 [facility] Comment on above: Performed By: #### L ACT #### [facility] [address] [place] [address] Dr. Ellie Smith Monocytes/100 WBC (Bld) 5.4 % Normal 1.7-12.0 [facility] Comment on above: Performed By: #### L ACT #### [facility] [address] [place] [address] Dr. Ellie Smith NEUT # 6.0 103/ul Normal 1.4-6.5 [facility] Comment on above: Performed By: #### L ACT #### [facility] [address] [place] [address] Dr. Ellie Smith Neutrophils/100 WBC (Bld) 69.6 % Normal 43.0-75.0 [facility] Comment on above: Performed By: #### L ACT #### [facility] [address] [place] [address] Dr. Ellie Smith Platelet mean volume (Bld) [Entitic vol] 9.5 fL Normal 9.5-13.5 [facility] Comment on above: Performed By: #### L ACT #### [facility] [address] [place] [address] Dr. Ellie Smith PLT 252 103/ul Normal 150-450 [facility] Comment on above: Performed By: #### L ACT #### [facility] [address] [place] [address] Dr. Ellie Smith RBC 3.79 106/ul Critically low 4.20-5.40 [facility] Comment on above: Performed By: #### L ACT #### [facility] [address] [place] [address] Dr. Ellie Smith WBC 8.6 103/ul Normal 4.0-11.0 [facility] Comment on above: Performed By: #### L ACT #### [facility] [address] [place] [address] Dr. Ellie Smith POINT OF CARE GLUCOSEon 01-10 Glucose [Mass/Vol] 93 mg/dL Normal 74-106 [facility] Comment on above: Performed By: #### A 1C #### [facility] [address] [place] [address] Dr. Ellie Smith PROF 14(COMP METB)on 022 Albumin [Mass/Vol] 3.2 g/dL Critically low 3.4-5.0 [facility] Comment on above: Performed By: #### R [id number] #### [facility] [address] [place] [address] Dr. Ellie Smith Albumin/Globulin [Mass ratio] 1.1 {ratio} Normal [facility] Comment on above: Performed By: #### R [id number] #### [facility] [address] [place] [address] Dr. Ellie Smith ALP [Catalytic activity/Vol] 52 U/L Normal 46-116 [facility] Comment on above: Performed By: #### R [id number] #### [facility] [address] [place] [address] Dr. Ellie Smith ALT [Catalytic activity/Vol] 52 U/L Normal 14-59 [facility] Comment on above: Performed By: #### R [id number] #### [facility] [address] [place] [address] Dr. Ellie Smith Anion gap [Moles/Vol] 9.7 mmol/L Normal [facility] Comment on above: Performed By: #### R [id number] #### [facility] [address] [place] [address] Dr. Ellie Smith AST [Catalytic activity/Vol] 22 U/L Normal 15-37 [facility] Comment on above: Performed By: #### R [id number] #### [facility] [address] [place] [address] Dr. Ellie Smith Bilirubin [Mass/Vol] 0.3 mg/dL Normal 0.2-1.0 [facility] Comment on above: Performed By: #### R [id number] #### [facility] [address] [address] [address] Ellie Smith Calcium [Mass/Vol] 8.4 mg/dL Critically low 8.5-10.1 [facility] Comment on above: Performed By: #### R [id number] #### [facility] [address] [place] [address] Dr. Ellie Smith Chloride [Moles/Vol] 104 mmol/L Normal 98-107 [facility] Comment on above: Performed By: #### R [id number] #### [facility] [address] [place] [address] Dr. Ellie Smith CO2 [Moles/Vol] 25.5 mmol/L Normal 21.0-32.0 [facility] Comment on above: Performed By: #### R [id number] #### [facility] [address] [place] [address] Dr. Ellie Smith Creatinine [Mass/Vol] 0.71 mg/dL Normal 0.55-1.02 [facility] Comment on above: Performed By: #### R [id number] #### [facility] [address] [place] [address] Dr. Ellie Smith EGFR-AF AZERBAIJANI >60 Normal >=60 [facility] Comment on above: Performed By: #### R [id number] #### [facility] [address] [place] [address] Dr. Ellie Smith EGFR-NON AF AZERBAIJANI >60 Normal >=60 [facility] Comment on above: Performed By: #### R [id number] #### [facility] [address] [place] [address] Dr. Ellie Smith Globulin (S) [Mass/Vol] 2.9 g/dL Normal [facility] Comment on above: Performed By: #### R [id number] #### [facility] [address] [place] [address] Dr. Ellie Smith Glucose [Mass/Vol] 102 mg/dL Normal 74-106 [facility] Comment on above: Performed By: #### R [id number] #### [facility] [address] [address] [address] Ellie Smith Potassium [Moles/Vol] 4.2 mmol/L Normal 3.5-5.1 [facility] Comment on above: Performed By: #### R [id number] #### [facility] [address] [place] [address] Dr. Ellie Smith Protein [Mass/Vol] 6.1 g/dL Critically low 6.4-8.2 [facility] Comment on above: Performed By: #### R [id number] #### [facility] [address] [place] [address] Dr. Ellie Smith Sodium [Moles/Vol] 135 mmol/L Critically low 136-145 [facility] Comment on above: Performed By: #### R [id number] #### [facility] [address] [place] [address] Dr. Ellie Smith Urea nitrogen [Mass/Vol] 11.0 mg/dL Normal 7.0-18.0 [facility] Comment on above: Performed By: #### R [id number] #### [facility] [address] [place] [address] Dr. Ellie Smith Urea nitrogen/Creatinine [Mass ratio] 15.5 mg/mg Normal [facility] Comment on above: Performed By: #### R [id number] #### [facility] [address] [place] [address] Dr. Ellie Smith CARDIAC RAQUEL 3-6on 2 CK [Catalytic activity/Vol] 192 U/L Normal 26-192 [facility] Comment on above: Performed By: #### L ACT #### [facility] [address] [place] [address] Dr. Ellie Smith CK.MB [Mass/Vol] 0.70 ng/mL Normal <=3.60 [facility] Comment on above: Performed By: #### L ACT #### [facility] [address] [place] [address] Dr. Ellie Smith HSTROP 88.8 pg/mL Critically high 4.0-51.3 [facility] Comment on above: Result Comment: CUT- OFF POINTS HAVE BEEN ESTABLISHED BASED ON THE FOURTH UNIVERSAL DEFINITIONS OF MYOCARDIAL INFARCTION. THE UPPER REFERENCE LIMIT (URL) OF TROPONIN, DEFINED THE 99TH PERCENTILE OF cTnI DISTRIBUTION IN A REFERENCE POPULATION, HAS BEEN CONFIRMED THE DECISION THRESHOLD FOR AL DIAGNOSIS. Performed By: #### L ACT #### [facility] [address] [place] [address] Dr. Ellie Smith CK [Catalytic activity/Vol] 213 U/L Critically high 26-192 [facility] Comment on above: Performed By: #### P OCGLUC #### [facility] [address] [place] [address] Dr. Ellie Smith CK.MB [Mass/Vol] 0.90 ng/mL Normal <=3.60 [facility] Comment on above: Performed By: #### P OCGLUC #### [facility] [address] [place] [address] Dr. Ellie Smith HSTROP 108.1 pg/mL Critically high 4.0-51.3 [facility] Comment on above: Result Comment: CUT- OFF POINTS HAVE BEEN ESTABLISHED BASED ON THE FOURTH UNIVERSAL DEFINITIONS OF MYOCARDIAL INFARCTION. THE UPPER REFERENCE LIMIT (URL) OF TROPONIN, DEFINED THE 99TH PERCENTILE OF cTnI DISTRIBUTION IN A REFERENCE POPULATION, HAS BEEN CONFIRMED THE DECISION THRESHOLD FOR AL DIAGNOSIS. repeated Performed By: #### P OCGLUC #### [facility] [address] [place] [address] Dr. Ellie Smith CBC AUTO DIFFon 01-27-2022 BASO # 0.1 103/ul Normal 0.0-0.1 [facility] Comment on above: Performed By: #### P OCGLUC #### [facility] [address] [place] [address] Dr. Ellie Smith Basophils/100 WBC (Bld) 0.5 % Normal 0.2-2.0 [facility] Comment on above: Performed By: #### P OCGLUC #### [facility] [address] [place] [address] Dr. Ellie Smith EO # 0.4 103/ul Normal 0.0-0.7 [facility] Comment on above: Performed By: #### P OCGLUC #### [facility] [address] [address] [address] Ellie Smith Eosinophils/100 WBC (Bld) 3.2 % Normal 0.9-7.0 [facility] Comment on above: Performed By: #### P OCGLUC #### [facility] [address] [place] [address] Dr. Ellie Smith Erythrocyte distribution width (RBC) [Ratio] 13.7 % Normal 11.0-15.0 [facility] Comment on above: Performed By: #### P OCGLUC #### [facility] [address] [place] [address] Dr. Ellie Smith Hematocrit (Bld) [Volume fraction] 40.5 % Normal 36.0-48.0 [facility] Comment on above: Performed By: #### P OCGLUC #### [facility] [address] [place] [address] Dr. Ellie Smith Hemoglobin (Bld) [Mass/Vol] 13.4 g/dL Normal 12.0-16.0 [facility] Comment on above: Performed By: #### P OCGLUC #### [facility] [address] [place] [address] Dr. Ellie Smith IG # 0.04 10e3/ul Critically high 0.00-0.03 [facility] Comment on above: Performed By: #### P OCGLUC #### [facility] [address] [place] [address] Dr. Ellie Smith IG % 0.3 % Normal 0.0-0.5 [facility] Comment on above: Performed By: #### P OCGLUC #### [facility] [address] [place] [address] Dr. Ellie Smith LYMPH # 2.4 103/ul Normal 1.2-3.8 [facility] Comment on above: Performed By: #### P OCGLUC #### [facility] [address] [place] [address] Dr. Ellie Smith Lymphocytes/100 WBC (Bld) 18.6 % Critically low 20.5-60.0 [facility] Comment on above: Performed By: #### P OCGLUC #### [facility] [address] [place] [address] Dr. Ellie Smith MANUAL DIFF REQ NO Normal [facility] Comment on above: Performed By: #### P OCGLUC #### [facility] [address] [place] [address] Dr. Ellie Smith MCH (RBC) [Entitic mass] 31.0 pg Normal 26.7-34.0 [facility] Comment on above: Performed By: #### P OCGLUC #### [facility] [address] [place] [address] Dr. Ellie Smith MCHC (RBC) [Mass/Vol] 33.1 g/dL Normal 29.9-35.2 [facility] Comment on above: Performed By: #### P OCGLUC #### [facility] [address] [place] [address] Dr. Ellie Smith MCV (RBC) [Entitic vol] 93.8 fL Normal 81.0-99.0 [facility] Comment on above: Performed By: #### P OCGLUC #### [facility] [address] [place] [address] Dr. Ellie Smith MONO # 0.7 103/ul Normal 0.3-0.8 [facility] Comment on above: Performed By: #### P OCGLUC #### [facility] [address] [place] [address] Dr. Ellie Smith Monocytes/100 WBC (Bld) 5.5 % Normal 1.7-12.0 [facility] Comment on above: Performed By: #### P OCGLUC #### [facility] [address] [place] [address] Dr. Ellie Smith NEUT # 9.1 103/ul Critically high 1.4-6.5 [facility] Comment on above: Performed By: #### P OCGLUC #### [facility] [address] [place] [address] Dr. Ellie Smith Neutrophils/100 WBC (Bld) 71.9 % Normal 43.0-75.0 [facility] Comment on above: Performed By: #### P OCGLUC #### [facility] [address] [place], [place] [address] Dr. Ellie Smith Platelet mean volume (Bld) [Entitic vol] 9.6 fL Normal 9.5-13.5 [facility] Comment on above: Performed By: #### P OCGLUC #### [facility] [address] [address] [address] Ellie Smith PLT 307 103/ul Normal 150-450 [facility] Comment on above: Performed By: #### P OCGLUC #### [facility] [address] [address] [address] Ellie Smith RBC 4.32 106/ul Normal 4.20-5.40 [facility] Comment on above: Performed By: #### P OCGLUC #### [facility] [address] [address] [address] Ellie Smith WBC 12.6 103/ul Critically high 4.0-11.0 [facility] Comment on above: Performed By: #### P OCGLUC #### [facility] [address] [address] ABD/PELVIS WO CONon [...] JONA [place]LANDO Date: 2022-01-27 02:44 Normal [facility] CTA CHEST WO W CONon 022 [...] JONA [place] Date: 2022-01-27 03:46 Normal [facility] Covid-19 PCR (CVDTBH)on 01-10 SARS-CoV-2 (COVID-19) RNA MEI+probe Ql (Unsp spec) Not detected Normal NOT DETECTED [facility] Comment on above: Result Comment: When [...] for this test is supported by the Senior Policy Analyst of Health and Human Service's declaration that [...] used). Performed By: #### R EVRT3 #### [facility] [address] [place] [address] Dr. Ellie Smith D-DIMERon 01-27-2022 D-DIMER 0.71 mg/L FEU Critically high <=0.59 [facility] Comment on above: Performed By: #### L ACT #### [facility] [address] [place] [address] Dr. Ellie Smith D-DIMER COMMENTS SEE BELOW Normal [facility] Comment on above: Result Comment: Incr [...] hospitalization. Performed By: #### L ACT #### [facility] [address] [place] [address] Dr. Ellie Smith ER URINE PROFILEon 2 Bilirubin Ql (U) Negative Normal NEGATIVE [facility] Comment on above: Performed By: #### P OCGLUC #### [facility] [address] [address] [address] Ellie Smith Clarity (U) CLEAR Normal CLEAR [facility] Comment on above: Performed By: #### P OCGLUC #### [facility] [address] [place] [address] Dr. Ellie Smith Color (U) LT. YELLOW Normal YELLOW [facility] Comment on above: Performed By: #### P OCGLUC #### [facility] [address] [place] [address] Dr. Ellie Smith ERUAHD A micrscopic examina tion will be performed if indicated. Normal [facility] Comment on above: Performed By: #### P OCGLUC #### [facility] [address] [place] [address] Dr. Ellie Smith Glucose Ql (U) Negative Normal NEGATIVE [facility] Comment on above: Performed By: #### P OCGLUC #### [facility] [address] [place] [address] Dr. Ellie Smith Hemoglobin Ql (U) Negative Normal NEGATIVE [facility] Comment on above: Performed By: #### P OCGLUC #### [facility] [address] [place] [address] Dr. Ellie Smith Ketones Ql (U) Negative Normal NEGATIVE [facility] Comment on above: Performed By: #### P OCGLUC #### [facility] [address] [place] [address] Dr. Ellie Smith LEUKOCYTES Negative Normal NEGATIVE [facility] Comment on above: Performed By: #### P OCGLUC #### [facility] [address] [place] [address] Dr. Ellie Smith Nitrite Ql (U) Negative Normal NEGATIVE [facility] Comment on above: Performed By: #### P OCGLUC #### [facility] [address] [place] [address] Dr. Ellie Smith pH (U) 6.0 [pH] Normal 5-9 [facility] Comment on above: Performed By: #### P OCGLUC #### [facility] [address] [address] [address] Ellie Smith SPEC GRAVITY 1.010 Normal 1.005-<=1. 025 [facility] Comment on above: Performed By: #### P OCGLUC #### [facility] [address] [address] [address] Ellie Smith UA PROTEIN Negative Normal NEGATIVE/ TRACE [facility] Comment on above: Performed By: #### P OCGLUC #### [facility] [address] [address] [address] Ellie Smith UR MICRO IND NOT INDICATED Normal [facility] Comment on above: Performed By: #### P OCGLUC #### [facility] [address] [place] [address] Dr. Ellie Smith Urobilinogen Qn (U) 0.2 {Tamia'U}/dL Normal 0.2 - 1. 0 [facility] Comment on above: Performed By: #### P OCGLUC #### [facility] [address] [place] [address] Dr. Ellie Smith LACTATE/LACTIC ACIDon 2021 Lactate [Moles/Vol] 1.8 mmol/L Normal 0.4-1.9 [facility] Comment on above: Performed By: #### L ACT #### [facility] [address] [place] [address] Dr. Ellie Smith POINT OF CARE GLUCOSEon 01-10 Glucose [Mass/Vol] 132 mg/dL Critically high 74-106 [facility] Comment on above: Performed By: #### L ACT #### [facility] [address] [place] [address] Dr. Ellie Smith Glucose [Mass/Vol] 99 mg/dL Normal 74-106 [facility] Comment on above: Performed By: #### L ACT #### [facility] [address] [place] [address] Dr. Ellie Smith Glucose [Mass/Vol] 117 mg/dL Critically high 74-106 [facility] Comment on above: Performed By: #### P OCGLUC #### [facility] [address] [place] [address] Dr. Ellie Smith Glucose [Mass/Vol] 105 mg/dL Normal 74-106 [facility] Comment on above: Performed By: #### L ACT #### [facility] [address] [place] [address] Dr. Ellie Smith PROF 14(COMP METB)on 022 Albumin [Mass/Vol] 3.6 g/dL Normal 3.4-5.0 [facility] Comment on above: Performed By: #### C MP #### [facility] [address] [place] [address] Dr. Ellie Smith Albumin/Globulin [Mass ratio] 1.1 {ratio} Normal [facility] Comment on above: Performed By: #### C MP #### [facility] [address] [place] [address] Dr. Ellie Smith ALP [Catalytic activity/Vol] 61 U/L Normal 46-116 [facility] Comment on above: Performed By: #### C MP #### [facility] [address] [place] [address] Dr. Ellie Smith ALT [Catalytic activity/Vol] 53 U/L Normal 14-59 [facility] Comment on above: Performed By: #### C MP #### [facility] [address] [place] [address] Dr. Ellie Smith Anion gap [Moles/Vol] 14.7 mmol/L Normal [facility] Comment on above: Performed By: #### C MP #### [facility] [address] [place] [address] Dr. Ellie Smith AST [Catalytic activity/Vol] 43 U/L Critically high 15-37 [facility] Comment on above: Performed By: #### C MP #### [facility] [address] [place] [address] Dr. Ellie Smith Bilirubin [Mass/Vol] 0.4 mg/dL Normal 0.2-1.0 [facility] Comment on above: Performed By: #### C MP #### [facility] [address] [place] [address] Dr. Ellie Smith Calcium [Mass/Vol] 8.6 mg/dL Normal 8.5-10.1 [facility] Comment on above: Performed By: #### C MP #### [facility] [address] [place] [address] Dr. Ellie Smith Chloride [Moles/Vol] 99 mmol/L Normal 98-107 [facility] Comment on above: Performed By: #### C MP #### [facility] [address] [place] [address] Dr. Ellie Smith CO2 [Moles/Vol] 22.4 mmol/L Normal 21.0-32.0 [facility] Comment on above: Performed By: #### C MP #### [facility] [address] [place] [address] Dr. Ellie Smith Creatinine [Mass/Vol] 0.90 mg/dL Normal 0.55-1.02 [facility] Comment on above: Performed By: #### C MP #### [facility] [address] [place] [address] Dr. Ellie Smith EGFR-AF AZERBAIJANI >60 Normal >=60 [facility] Comment on above: Performed By: #### C MP #### [facility] [address] [place] [address] Dr. Ellie Smith EGFR-NON AF AZERBAIJANI 60 mL/min/1.73m2 Normal >=60 [facility] Comment on above: Performed By: #### C MP #### [facility] [address] [place] [address] Dr. Ellie Smith Globulin (S) [Mass/Vol] 3.3 g/dL Normal [facility] Comment on above: Performed By: #### C MP #### [facility] [address] [place] [address] Dr. Ellie Smith Glucose [Mass/Vol] 108 mg/dL Critically high 74-106 [facility] Comment on above: Performed By: #### C MP #### [facility] [address] [place] [address] Dr. Ellie Smith Potassium [Moles/Vol] 4.1 mmol/L Normal 3.5-5.1 [facility] Comment on above: Performed By: #### C MP #### [facility] [address] [place] [address] Dr. Ellie Smith Protein [Mass/Vol] 6.9 g/dL Normal 6.4-8.2 [facility] Comment on above: Performed By: #### C MP #### [facility] [address] [place] [address] Dr. Ellie Smith Sodium [Moles/Vol] 132 mmol/L Critically low 136-145 [facility] Comment on above: Performed By: #### C MP #### [facility] [address] [place] [address] Dr. Ellie Smith Urea nitrogen [Mass/Vol] 15.0 mg/dL Normal 7.0-18.0 [facility] Comment on above: Performed By: #### C MP #### [facility] [address] [place] [address] Dr. Ellie Smith Urea nitrogen/Creatinine [Mass ratio] 16.7 mg/mg Normal [facility] Comment on above: Performed By: #### C MP #### [facility] [address] [place] [address] Dr. Ellie Smith PROTIMEon 01-27-2022 INR Coag (PPP) [Relative time] 1.00 {INR} Normal [facility] Comment on above: Performed By: #### P OCGLUC #### [facility] [address] [place] [address] Dr. Ellie Smith INR GUIDELINES SEE BELOW Normal [facility] Comment on above: Result Comment: HIMANSHU RED INR: 2.0 - 3.0 CONDITIONS NOT LISTED BELOW 2.5 - 3.5 FOR PROSTHETIC HEART VALVE REPLACEMENT 2.5 - 3.5 RECURRENT THROMBOSIS Performed By: #### P OCGLUC #### [facility] [address] [place] [address] Dr. Ellie Smith PT Coag (PPP) [Time] 10.8 s Normal 9.0-11.6 [facility] Comment on above: Performed By: #### P OCGLUC #### [facility] [address] [address] [address] Ellie Smith PTTon 01-27-2022 aPTT Coag (Bld) [Time] 28.6 s Normal 22.3-36.2 [facility] Comment on above: Performed By: #### L ACT #### [facility] [address] [address] [address] Ellie Smith TROPONIN, HIGH SENSITIVITYon 01-27-2022 HSTROP 116.4 pg/mL Critically high 4.0-51.3 [facility] Comment on above: Result Comment: CUT- OFF POINTS HAVE BEEN ESTABLISHED BASED ON THE FOURTH UNIVERSAL DEFINITIONS OF MYOCARDIAL INFARCTION. THE UPPER REFERENCE LIMIT (URL) OF TROPONIN, DEFINED THE 99TH PERCENTILE OF cTnI DISTRIBUTION IN A REFERENCE POPULATION, HAS BEEN CONFIRMED THE DECISION THRESHOLD FOR AL DIAGNOSIS. Performed By: #### A 1C #### [facility] [address] [place] [address] Dr. Ellie Smith HSTROP 151.5 pg/mL Critically high 4.0-51.3 [facility] Comment on above: Result Comment: CUT- OFF POINTS HAVE BEEN ESTABLISHED BASED ON THE FOURTH UNIVERSAL DEFINITIONS OF MYOCARDIAL INFARCTION. THE UPPER REFERENCE LIMIT (URL) OF TROPONIN, DEFINED THE 99TH PERCENTILE OF cTnI DISTRIBUTION IN A REFERENCE POPULATION, HAS BEEN CONFIRMED THE DECISION THRESHOLD FOR AL DIAGNOSIS. Performed By: #### P OCGLUC #### [facility] [address] [place] [address] Dr. Ellie Smith XR CHEST 1 Von [...] by: JONA ORLANDO Date: 2022-01-27 01:08 Normal [facility] Albumin [Mass/volume] in Ser um or PlasmaOrdered By: Diony Hooks on 01-21-2022 Albumin [Mass/Vol] 3.4 g/dL 3.2-5.5 [facility] Basophils Auto (Bld) [#/Vol] Ordered By: Diony Hooks on 01-21-2022 Basophils (Bld) [#/Vol] 0.0 10*3/uL 0.0-0.2 [facility] Basophils/100 WBC Auto (Bld) Ordered By: Diony Hooks on 01-21-2022 Basophils/100 WBC (Bld) 0.4 % . [facility] Blood hemoglobin measurement (mass/volume)Ordered By: Diony Hooks on 01-21-2022 Hemoglobin (Bld) [Mass/Vol] 13.3 g/dL 11.8-15.4 [facility] Blood leukocytes automated c ount (number/volume)Ordered By: Diony Hooks on 01-21-2022 WBC (Bld) [#/Vol] 8.5 10*3/uL 4.5-11.0 [facility] Creatinine and Glomerular fi ltration rate.predicted panel (S/P/Bld)Ordered By: Diony Hooks on 01-21-2022 Creatinine [Mass/Vol] 0.72 mg/dL 0.44-1.03 [facility] Eosinophils Auto (Bld) [#/Vo l]Ordered By: Diony Hooks on 01-21-2022 Eosinophils (Bld) [#/Vol] 0.4 10*3/uL 0.0-0.45 [facility] Eosinophils/100 WBC Auto (Bl d)Ordered By: Diony Hooks on 01-21-2022 Eosinophils/100 WBC (Bld) 4.2 % . [facility] Erythrocyte distribution wid th Auto (RBC) [Ratio]Ordered By: Diony Hooks on 01-21-2022 Erythrocyte distribution width (RBC) [Ratio] 14.4 % 11.9-15.3 [facility] Estimated glomerular filtrat ion rate (GFR) non- AmericanOrdered By: Diony Hooks on 01-21-2022 GFR/1.73 sq M.predicted among non-blacks MDRD (S/P/Bld) [Vol rate/Area] > 60 mL/Min [facility] Globulin Calc (S) [Mass/Vol] Ordered By: Diony Hooks on 01-21-2022 Globulin (S) [Mass/Vol] 2.4 g/dL [facility] Glucose Glucometer (BldC) [M ass/Vol]Ordered By: Wiley Beal on 01-21-2022 Glucose [Mass/Vol] 93 mg/dL [facility] Comment on above: Random Glucose Refer ence Range is dependent on time and content of last meal. Glucose of more than 200 mg/dL in a nonstressed, ambulatory subject supports the diagnosis of Diabetes Mellitus. Hematocrit Auto (Bld) [Volum e fraction]Ordered By: Diony Hooks on 01-21-2022 Hematocrit (Bld) [Volume fraction] 40.5 % 34.0-46.4 [facility] Laboratory - Hematology and Cell countsOrdered By: Diony Hooks on 01-21-2022 Nucleated RBC/100 WBC (Bld) [Ratio] 0.0 % 0-0.5 [facility] Lymphocytes Auto (Bld) [#/Vo l]Ordered By: Diony Hooks on 01-21-2022 Lymphocytes (Bld) [#/Vol] 1.2 10*3/uL 1.00-4.8 [facility] Lymphocytes/100 WBC Auto (Bl d)Ordered By: Diony Hooks on 01-21-2022 Lymphocytes/100 WBC (Bld) 14.2 % . [facility] MCH Auto (RBC) [Entitic mass ]Ordered By: Diony Hooks on 01-21-2022 MCH (RBC) [Entitic mass] 30.7 pg 24.7-34.3 [facility] MCHC Auto (RBC) [Mass/Vol]Or dered By: Diony Hooks on 01-21-2022 MCHC (RBC) [Mass/Vol] 32.9 g/dL 32.0-35.0 [facility] MCV Auto (RBC) [Entitic vol] Ordered By: Diony Hooks on 01-21-2022 MCV (RBC) [Entitic vol] 93.1 fL 80-100 [facility] Monocytes Auto (Bld) [#/Vol] Ordered By: Diony Hooks on 01-21-2022 Monocytes (Bld) [#/Vol] 0.6 10*3/uL 0.0-0.8 [facility] Monocytes/100 WBC Auto (Bld) Ordered By: Diony Hooks on 01-21-2022 Monocytes/100 WBC (Bld) 6.7 % . [facility] Neutrophils Auto (Bld) [#/Vo l]Ordered By: Diony Hooks on 01-21-2022 Neutrophils (Bld) [#/Vol] 6.3 10*3/uL 1.8-7.7 [facility] Neutrophils/100 WBC Auto (Bl d)Ordered By: Diony Hooks on 01-21-2022 Neutrophils/100 WBC (Bld) 74.5 % . [facility] No Panel InformationOrdered By: Wiley Beal on 01-21-2022 Bedside Glucose Comment Glu2: cleaned meter [facility] No Panel InformationOrdered By: Diony Hooks on 01-21-2022 Estimated GFR () > 60 mL/Min [facility] Comment on above: GFR estimated refere nce range: According to KDOQI guidelines, <60 ml/min/1.73m2 is sufficient to diagnose a patient with chronic kidney disease. Pharmacy Creatinine Clearance (Chem 55.72 [facility] Platelet mean volume Auto (B ld) [Entitic vol]Ordered By: Diony Hooks on 01-21-2022 Platelet mean volume (Bld) [Entitic vol] 7.8 fL 6.3-10.7 [facility] Platelets Auto (Bld) [#/Vol] Ordered By: Diony Hooks on 01-21-2022 Platelets (Bld) [#/Vol] 235 10*3/uL 150-450 [facility] Protein [Mass/volume] in Ser um or PlasmaOrdered By: iDony Hooks on 01-21-2022 Protein [Mass/Vol] 5.8 g/dL 6.1-7.9 [facility] RBC Auto (Bld) [#/Vol]Ordere d By: Diony Hooks on 01-21-2022 RBC (Bld) [#/Vol] 4.35 10*6/uL 3.60-5.00 [facility] Serum or plasma alanine potter otransferase measurement without P-5'-P (enzymatic activiOrdered By: Diony Hooks on 01-21-2022 ALT No additional P-5'-P [Catalytic activity/Vol] 16 U/L 10-60 [facility] Serum or plasma albumin/glob ulin mass ratioOrdered By: Diony Hooks on 01-21-2022 Albumin/Globulin [Mass ratio] 1.4 {ratio} [facility] Serum or plasma alkaline inge sphatase measurement (enzymatic activity/volume)Ordered By: Diony Hooks on 01-21-2022 ALP [Catalytic activity/Vol] 43 U/L 32-92 [facility] Serum or plasma aspartate am inotransferase measurement (enzymatic activity/volume)Ordered By: Diony Hooks on 01-21-2022 AST [Catalytic activity/Vol] 25 U/L 10-42 [facility] Serum or plasma calcium norma urement (mass/volume)Ordered By: Diony Hooks on 01-21-2022 Calcium [Mass/Vol] 9.1 mg/dL 8.2-10.2 [facility] Serum or plasma chloride tam surement (moles/volume)Ordered By: Diony Hooks on 01-21-2022 Chloride [Moles/Vol] 104 mmol/L 95-114 [facility] Serum or plasma glucose norma urement (mass/volume)Ordered By: Diony Hooks on 01-21-2022 Glucose [Mass/Vol] 98 mg/dL 70-100 [facility] Comment on above: ADA recommended refe rence range Random Glucose Reference Range is dependent on time and content of last meal. Glucose of more than 200 mg/dL in a nonstressed, ambulatory subject supports the diagnosis of Diabetes Mellitus. Serum or plasma potassium me asurement (moles/volume)Ordered By: Diony Hooks on 01-21-2022 Potassium [Moles/Vol] 3.8 mmol/L 3.5-5.1 [facility] Serum or plasma sodium measu rement (moles/volume)Ordered By: Diony Hooks on 01-21-2022 Sodium [Moles/Vol] 135 mmol/L 136-146 [facility] Serum or plasma total biliru bin measurement (mass/volume)Ordered By: Diony Hooks on 01-21-2022 Bilirubin [Mass/Vol] 0.9 mg/dL 0.3-1.2 [facility] Serum or plasma total carbon dioxide measurement (moles/volume)Ordered By: Diony Hooks on 01-21-2022 CO2 [Moles/Vol] 23.4 mmol/L 22.0-30.0 [facility] Serum or plasma urea nitroge n measurement (mass/volume)Ordered By: Diony Hooks on 01-21-2022 Urea nitrogen [Mass/Vol] 9 mg/dL 9 [facility] Activated partial thrombopla stin time (aPTT) in platelet poor plasma by coagulation aOrdered By: Wiley Beal on 01-20-2022 aPTT Coag (PPP) [Time] 70.5 s 25.1-36.5 [facility] Cholesterol [Mass/volume] in Serum or PlasmaOrdered By: Justa Westfall on 01-19-2022 Cholesterol [Mass/Vol] 181 mg/dL 140-200 [facility] Comment on above: Chol less than 200 m g/dl low risk Chol 201-239 mg/dl borderline risk Chol 240 mg/dl and greater high risk Cholesterol in LDL Calc [Mas s/Vol]Ordered By: Justa Westfall on 01-19-2022 Cholesterol in LDL [Mass/Vol] 112 mg/dL 0-100 [facility] Comment on above: LDL ATP III CLASSIFI CATION LDL less than 100 mg/dL Optimal LDL 100-129 mg/dL Near or above optimal LDL 130-159 mg/dL Borderline high LDL 160-189 mg/dL High LDL greater than 189 mg/dL Very high Cholesterol in VLDL Calc [Ma ss/Vol]Ordered By: Justa Westfall on 01-19-2022 Cholesterol in VLDL [Mass/Vol] 22 mg/dL [facility] Laboratory - Chemistry and C hemistry - challengeOrdered By: Justa Westfall on 01-19-2022 Magnesium [Mass/Vol] 1.4 mg/dL 1.6-2.6 [facility] - CoagulationOrde red By: Justa Westfall on 01-19-2022 PT Coag (PPP) [Time] 11.7 s 9.0-12.9 [facility] Platelet poor plasma interna tional normalized ratio (INR) by coagulation assay (relatOrdered By: Justa Westfall on 01-19-2022 INR Coag (PPP) [Relative time] 1.0 {INR} [facility] Comment on above: INR Therapeutic Rang e [...] Cholesterol in HDL [Mass/Vol] 46 mg/dL 35-85 [facility] Comment on above: HDL CHOL ATP-III CLA SSIFICATION Cardiovascular Risk HDL > or equal to 60 mg/dL LOW HDL < 40 mg/dL HIGH Serum or plasma total choles terol/high density lipoprotein (HDL) cholesterol mass ratOrdered By: Justa Westfall on 01-19-2022 Cholesterol.total/Chol esterol in HDL [Mass ratio] 3.9 {ratio} <5.0 [facility] Triglyceride [Mass/volume] i n Serum or PlasmaOrdered By: Justa Westfall on 01-19-2022 Triglyceride [Mass/Vol] 113 mg/dL 35-149 [facility] Comment on above: TRIG ATP III CLASSIF [...] High sensitivity method [Mass/Vol] 3577 pg/mL 0-15 [facility] Comment on above: Results called at 0943 on 01/19/22 BNPon 01-18-2022 Natriuretic peptide B (Bld) [Mass/Vol] 1222.0 pg/mL Normal <=1,800.0 [facility] Comment on above: Performed By: #### A 1C #### [facility] [address] [place] [address] Dr. Ellie Smith CBC AUTO DIFFon 01-18-2022 BASO # 0.1 103/ul Normal 0.0-0.1 [facility] Comment on above: Performed By: #### R [id number] #### [facility] [address] [place] [address] Dr. Ellie Smith Basophils/100 WBC (Bld) 0.5 % Normal 0.2-2.0 [facility] Comment on above: Performed By: #### R [id number] #### [facility] [address] [place] [address] Dr. Ellie Smith EO # 0.2 103/ul Normal 0.0-0.7 [facility] Comment on above: Performed By: #### R [id number] #### [facility] [address] [place] [address] Dr. Ellie Smith Eosinophils/100 WBC (Bld) 2.4 % Normal 0.9-7.0 [facility] Comment on above: Performed By: #### R [id number] #### [facility] [address] [place] [address] Dr. Ellie Smith Erythrocyte distribution width (RBC) [Ratio] 14.1 % Normal 11.0-15.0 [facility] Comment on above: Performed By: #### R [id number] #### [facility] [address] [place] [address] Dr. Ellie Smith Hematocrit (Bld) [Volume fraction] 42.2 % Normal 36.0-48.0 [facility] Comment on above: Performed By: #### R [id number] #### [facility] [address] [place] [address] Dr. Ellie Smith Hemoglobin (Bld) [Mass/Vol] 13.9 g/dL Normal 12.0-16.0 [facility] Comment on above: Performed By: #### R [id number] #### [facility] [address] [place] [address] Dr. Ellie Smith IG # 0.02 10e3/ul Normal 0.00-0.03 [facility] Comment on above: Performed By: #### R [id number] #### [facility] [address] [place] [address] Dr. Ellie Smith IG % 0.2 % Normal 0.0-0.5 [facility] Comment on above: Performed By: #### R [id number] #### [facility] [address] [place] [address] Dr. Ellie Smith LYMPH # 2.1 103/ul Normal 1.2-3.8 [facility] Comment on above: Performed By: #### R [id number] #### [facility] [address] [place] [address] Dr. Ellie Smith Lymphocytes/100 WBC (Bld) 21.2 % Normal 20.5-60.0 [facility] Comment on above: Performed By: #### R [id number] #### [facility] [address] [place] [address] Dr. Ellie Smith MANUAL DIFF REQ NO Normal [facility] Comment on above: Performed By: #### R [id number] #### [facility] [address] [place] [address] Dr. Ellie Smith MCH (RBC) [Entitic mass] 31.2 pg Normal 26.7-34.0 [facility] Comment on above: Performed By: #### R [id number] #### [facility] [address] [place] [address] Dr. Ellie Smith MCHC (RBC) [Mass/Vol] 32.9 g/dL Normal 29.9-35.2 [facility] Comment on above: Performed By: #### R [id number] #### [facility] [address] [place] [address] Dr. Ellie Smith MCV (RBC) [Entitic vol] 94.6 fL Normal 81.0-99.0 [facility] Comment on above: Performed By: #### R [id number] #### [facility] [address] [place] [address] Dr. Ellie Smith MONO # 0.5 103/ul Normal 0.3-0.8 [facility] Comment on above: Performed By: #### R [id number] #### [facility] [address] [place] [address] Dr. Ellie Smith Monocytes/100 WBC (Bld) 4.7 % Normal 1.7-12.0 [facility] Comment on above: Performed By: #### R [id number] #### [facility] [address] [place] [address] Dr. Ellie Smith NEUT # 7.1 103/ul Critically high 1.4-6.5 [facility] Comment on above: Performed By: #### R [id number] #### [facility] [address] [place] [address] Dr. Ellie Smith Neutrophils/100 WBC (Bld) 71.0 % Normal 43.0-75.0 [facility] Comment on above: Performed By: #### R [id number] #### [facility] [address] [place] [address] Dr. Ellie Smith Platelet mean volume (Bld) [Entitic vol] 9.2 fL Critically low 9.5-13.5 [facility] Comment on above: Performed By: #### R EVRT3 #### [facility] [address] [place] [address] Dr. Ellie Smith PLT 257 103/ul Normal 150-450 [facility] Comment on above: Performed By: #### R EVRT3 #### [facility] [address] [place] [address] Dr. Ellie Smith RBC 4.46 106/ul Normal 4.20-5.40 [facility] Comment on above: Performed By: #### R EVRT3 #### [facility] [address] [place] [address] Dr. Ellie Smith WBC 10.0 103/ul Normal 4.0-11.0 [facility] Comment on above: Performed By: #### R EVRT3 #### [facility] [address] [place] [address] Dr. Ellie Smith Covid-19 PCR (CVDTBH)on SARS-CoV-2 (COVID-19) RNA MEI+probe Ql (Unsp spec) Not detected Normal NOT DETECTED [facility] Comment on above: Result Comment: When [...] for this test is supported by the Senior Policy Analyst of Health and Human Service's declaration that [...] used). Performed By: #### C VDTBH #### [facility] [address] [place] [address] Dr. Ellie Smith LIPASEon 01-18-2022 Lipase [Catalytic activity/Vol] 62.0 U/L Critically low 73.0-393.0 [facility] Comment on above: Performed By: #### A 1C #### [facility] [address] [place] [address] Dr. Ellie Smith MAGNESIUMon 01-18-2022 Magnesium [Mass/Vol] 1.4 mg/dL Critically low 1.8-2.4 [facility] Comment on above: Performed By: #### M G #### [facility] [address] [place] [address] Dr. Ellie Smith PROF 14(COMP METB)on 022 Albumin [Mass/Vol] 3.8 g/dL Normal 3.4-5.0 [facility] Comment on above: Performed By: #### A 1C #### [facility] [address] [place] [address] Dr. Ellie Smith Albumin/Globulin [Mass ratio] 1.2 {ratio} Normal [facility] Comment on above: Performed By: #### A 1C #### [facility] [address] [place] [address] Dr. Ellie Smith ALP [Catalytic activity/Vol] 59 U/L Normal 46-116 [facility] Comment on above: Performed By: #### A 1C #### [facility] [address] [place] [address] Dr. Ellie Smith ALT [Catalytic activity/Vol] 18 U/L Normal 14-59 [facility] Comment on above: Performed By: #### A 1C #### [facility] [address] [place] [address] Dr. Ellie Smith Anion gap [Moles/Vol] 11.1 mmol/L Normal [facility] Comment on above: Performed By: #### A 1C #### [facility] [address] [place] [address] Dr. Ellie Smith AST [Catalytic activity/Vol] 14 U/L Critically low 15-37 [facility] Comment on above: Performed By: #### A 1C #### [facility] [address] [place] [address] Dr. Ellie Smith Bilirubin [Mass/Vol] 0.3 mg/dL Normal 0.2-1.0 [facility] Comment on above: Performed By: #### A 1C #### [facility] [address] [place] [address] Dr. Ellie Smith Calcium [Mass/Vol] 9.1 mg/dL Normal 8.5-10.1 [facility] Comment on above: Performed By: #### A 1C #### [facility] [address] [place] [address] Dr. Ellie Smith Chloride [Moles/Vol] 104 mmol/L Normal 98-107 [facility] Comment on above: Performed By: #### A 1C #### [facility] [address] [place] [address] Dr. Ellie Smith CO2 [Moles/Vol] 26.9 mmol/L Normal 21.0-32.0 [facility] Comment on above: Performed By: #### A 1C #### [facility] [address] [place] [address] Dr. Ellie Smith Creatinine [Mass/Vol] 0.84 mg/dL Normal 0.55-1.02 [facility] Comment on above: Performed By: #### A 1C #### [facility] [address] [place] [address] Dr. Ellie Smith EGFR-AF AZERBAIJANI >60 Normal >=60 [facility] Comment on above: Performed By: #### A 1C #### [facility] [address] [place] [address] Dr. Ellie Smith EGFR-NON AF AZERBAIJANI >60 Normal >=60 [facility] Comment on above: Performed By: #### A 1C #### [facility] [address] [place] [address] Dr. Ellie Smith Globulin (S) [Mass/Vol] 3.1 g/dL Normal [facility] Comment on above: Performed By: #### A 1C #### [facility] [address] [place] [address] Dr. Ellie Smith Glucose [Mass/Vol] 100 mg/dL Normal 74-106 [facility] Comment on above: Performed By: #### A 1C #### [facility] [address] [place] [address] Dr. Ellie Smith Potassium [Moles/Vol] 4.0 mmol/L Normal 3.5-5.1 [facility] Comment on above: Performed By: #### A 1C #### [facility] [address] [place] [address] Dr. Ellie Smith Protein [Mass/Vol] 6.9 g/dL Normal 6.4-8.2 [facility] Comment on above: Performed By: #### A 1C #### [facility] [address] [place] [address] Dr. Ellie Smith Sodium [Moles/Vol] 138 mmol/L Normal 136-145 [facility] Comment on above: Performed By: #### A 1C #### [facility] [address] [place] [address] Dr. Ellie Smith Urea nitrogen [Mass/Vol] 14.0 mg/dL Normal 7.0-18.0 [facility] Comment on above: Performed By: #### A 1C #### [facility] [address] [place] [address] Dr. Ellie Smith Urea nitrogen/Creatinine [Mass ratio] 16.7 mg/mg Normal [facility] Comment on above: Performed By: #### A 1C #### [facility] [address] [place] [address] Dr. Ellie Smith PROTIMEon 01-18-2022 INR Coag (PPP) [Relative time] 0.95 {INR} Normal [facility] Comment on above: Performed By: #### R EVRT3 #### [facility] [address] [place] [address] Dr. Ellie Smith INR GUIDELINES SEE BELOW Normal [facility] Comment on above: Result Comment: HIMANSHU RED INR: 2.0 - 3.0 CONDITIONS NOT LISTED BELOW 2.5 - 3.5 FOR PROSTHETIC HEART VALVE REPLACEMENT 2.5 - 3.5 RECURRENT THROMBOSIS Performed By: #### R EVRT3 #### [facility] [address] [place] [address] Dr. Ellie Smith PT Coag (PPP) [Time] 10.3 s Normal 9.0-11.6 [facility] Comment on above: Performed By: #### R EVRT3 #### [facility] [address] [place] [address] Dr. Ellie Smith PTTon 01-18-2022 aPTT Coag (Bld) [Time] 27.1 s Normal 22.3-36.2 [facility] Comment on above: Performed By: #### R EVRT3 #### [facility] [address] [place] [address] Dr. Ellie Smith TROPONIN, HIGH SENSITIVITYon 01-18-2022 HSTROP 512.5 pg/mL Critically high 4.0-51.3 [facility] Comment on above: Result Comment: CUT- OFF POINTS HAVE BEEN ESTABLISHED BASED ON THE FOURTH UNIVERSAL DEFINITIONS OF MYOCARDIAL INFARCTION. THE UPPER REFERENCE LIMIT (URL) OF TROPONIN, DEFINED THE 99TH PERCENTILE OF cTnI DISTRIBUTION IN A REFERENCE POPULATION, HAS BEEN CONFIRMED THE DECISION THRESHOLD FOR AL DIAGNOSIS. repeated Performed By: #### A 1C #### [facility] [address] [address] [address] Ellie Smith XR CHEST 1 Von [...] SANDERS Date: 2022-01-18 17:38 Normal [facility] Vital Signs Date Time Vital Sign Value Performing Clinician Facility 08-01-2024 10:16-0500 Body height 157.5 cm Priyanka Puentes MD Work Phone: [facility] 08-01-2024 10:16-0500 Body mass index (BMI) [Ratio] 27.07 kg/m2 Priyanka Puentes MD Work Phone: [facility] 08-01-2024 10:16-0500 Body weight 67.13 kg Priyanka Puentes MD Work Phone: [facility] 05-14-2024 13:40-0500 Body height 157.5 cm Priyanka Puentes MD Work Phone: [facility] 05-14-2024 13:40-0500 Body mass index (BMI) [Ratio] 27.07 kg/m2 Priyanka Puentes MD Work Phone: [facility] 05-14-2024 13:40-0500 Body weight 67.13 kg Priyanka Puentes MD Work Phone: [facility] 05-08-2024 13:40-0500 Body height 153.7 cm Karli Dougherty MD Work Phone: [facility] 05-08-2024 13:40-0500 Body mass index (BMI) [Ratio] 29.77 kg/m2 Karli Dougherty MD Work Phone: [facility] 05-08-2024 13:40-0500 Body weight 70.31 kg Karli Dougherty MD Work Phone: [facility] 05-08-2024 13:40-0500 Diastolic blood pressure 64 mm[Hg] Karli Dougherty MD Work Phone: [facility] 05-08-2024 13:40-0500 Heart rate 64 /min Karli Dougherty MD Work Phone: [facility] 05-08-2024 13:40-0500 Systolic blood pressure 132 mm[Hg] Karli Dougherty MD Work Phone: [facility] 08-31-2023 13:23-0400 Diastolic blood pressure 70 mm[Hg] Karli Dougherty MD Work Phone: [facility] 08-31-2023 13:23-0400 Systolic blood pressure 136 mm[Hg] Karli Dougherty MD Work Phone: [facility] 08-31-2023 12:56-0400 Body height 157.5 cm Karli Dougherty MD Work Phone: [facility] 08-31-2023 12:56-0400 Body mass index (BMI) [Ratio] 27.62 kg/m2 Karli Dougherty MD Work Phone: [facility] 08-31-2023 12:56-0400 Body weight 68.49 kg Karli Dougherty MD Work Phone: [facility] 08-31-2023 12:56-0400 Heart rate 72 /min Karli Dougherty MD Work Phone: [facility] 03-14-2023 12:00-0400 Body temperature 98.1 [degF] MD Priyanka Puentes Work Phone: [facility] 03-14-2023 12:00-0400 Diastolic blood pressure 72 mm[Hg] MD Priyanka Puentes Work Phone: [facility] 03-14-2023 12:00-0400 Heart rate 70 /min MD Priyanka Puentes Work Phone: [facility] 03-14-2023 12:00-0400 Respiratory rate 12 /min MD Priyanka Puentes Work Phone: [facility] 03-14-2023 12:00-0400 SaO2% (BldA) [Mass fraction] 95 % MD Priyanka Puentes Work Phone: [facility] 03-14-2023 12:00-0400 Systolic blood pressure 155 mm[Hg] MD Priyanka Puentes Work Phone: [facility] 03-14-2023 06:00-0400 Body weight 66.3 kg MD Priyanka Puentes Work Phone: [facility] 03-12-2023 20:20-0400 Body height 157.48 cm MD Priyanka Puentes Work Phone: [facility] 03-12-2023 17:59-0400 Diastolic blood pressure 91 mm[Hg] MD Priyanka Puentes Work Phone: [facility] 03-12-2023 17:59-0400 Systolic blood pressure 199 mm[Hg] MD Priyanka Puentes Work Phone: [facility] 03-12-2023 17:33-0400 Heart rate 110 /min MD Priyanka Puentes Work Phone: [facility] 03-12-2023 17:33-0400 Respiratory rate 18 /min MD Priyanka Puentes Work Phone: [facility] 03-12-2023 17:33-0400 SaO2% (BldA) [Mass fraction] 96 % MD Priyanka Puentes Work Phone: [facility] 03-12-2023 13:44-0400 Body height 157.48 cm MD Priyanka Puentes Work Phone: [facility] 03-12-2023 13:44-0400 Body temperature 98.6 [degF] MD Priyanka Puentes Work Phone: [facility] 03-12-2023 13:44-0400 Body weight 63.5 kg MD Priyanka Puentes Work Phone: [facility] 03-07-2023 08:00-0400 Body temperature 97.9 [degF] MD Priyanka Puentes Work Phone: [facility] 03-07-2023 08:00-0400 Diastolic blood pressure 77 mm[Hg] MD Priyanka Puentes Work Phone: [facility] 03-07-2023 08:00-0400 Heart rate 78 /min MD Priyanka Puentes Work Phone: [facility] 03-07-2023 08:00-0400 Respiratory rate 16 /min MD Priyanka Puentes Work Phone: [facility] 03-07-2023 08:00-0400 SaO2% (BldA) [Mass fraction] 98 % MD Priyanka Puentes Work Phone: [facility] 03-07-2023 08:00-0400 Systolic blood pressure 167 mm[Hg] MD Priyanka Puentes Work Phone: [facility] 03-07-2023 06:10-0400 Body weight 64.7 kg MD Priyanka Puentes Work Phone: [facility] 03-06-2023 13:53-0400 Body height 157.48 cm MD Priyanka Puentes Work Phone: [facility] 03-05-2023 21:31-0400 Diastolic blood pressure 65 mm[Hg] MD Priyanka Puentes Work Phone: [facility] 03-05-2023 21:31-0400 Heart rate 85 /min MD Priyanka Puentes Work Phone: [facility] 03-05-2023 21:31-0400 SaO2% (BldA) [Mass fraction] 96 % MD Priyanka Puentes Work Phone: [facility] 03-05-2023 21:31-0400 Systolic blood pressure 145 mm[Hg] MD Priyanka Puentes Work Phone: [facility] 03-05-2023 18:47-0400 Respiratory rate 18 /min MD Priyanka Puentes Work Phone: [facility] 03-05-2023 18:00-0400 Body height 157.48 cm MD Priyanka Puentes Work Phone: [facility] 03-05-2023 18:00-0400 Body temperature 97.1 [degF] MD Priyanka Puentes Work Phone: [facility] 03-05-2023 18:00-0400 Body weight 65.7 kg MD Priyanka Puentes Work Phone: [facility] 02-16-2023 13:38-0400 Body height 157.48 cm Priyanka Puentes Work Phone: [facility] 250 DO Work Phone: 02-16-2023 13:38-0400 Body mass index (BMI) [Ratio] 26.52 kg/m2 Priyanka Puentes Work Phone: [facility] 250 DO Work Phone: 02-16-2023 13:38-0400 Body surface area Derived from formula 1.67 m2 Priyanka Puentes Work Phone: [facility] 250 DO Work Phone: 02-16-2023 13:38-0400 Body weight 65.77 kg Priyanka Malcolmyer Work Phone: [facility] 250 DO Work Phone: 02-16-2023 13:38-0400 Diastolic blood pressure 62 mm[Hg] Edzeeshan Malcolmyer Work Phone: [facility] 250 DO Work Phone: 02-16-2023 13:38-0400 Heart rate 76 /min Edzeeshan Malcolmyer Work Phone: [facility] 250 DO Work Phone: 02-16-2023 13:38-0400 Systolic blood pressure 128 mm[Hg] Priyanka Malcolmyer Work Phone: [facility] 250 DO Work Phone: 08-24-2022 14:35-0400 Body height 157.48 cm Edzeeshan Malcolmyer Work Phone: [facility] 250 DO Work Phone: 08-24-2022 14:35-0400 Body mass index (BMI) [Ratio] 27.98 kg/m2 Priyanka Malcolmyer Work Phone: [facility] 250 DO Work Phone: 08-24-2022 14:35-0400 Body surface area Derived from formula 1.71 m2 Priyanka Malcolmyer Work Phone: [facility] 250 DO Work Phone: 08-24-2022 14:35-0400 Body weight 69.4 kg Priyanka Malcolmyer Work Phone: [facility] 250 DO Work Phone: 08-24-2022 14:35-0400 Diastolic blood pressure 54 mm[Hg] Edzeeshan Schrader Hemeyer Work Phone: [facility] 250 DO Work Phone: 08-24-2022 14:35-0400 Heart rate 82 /min Edzeeshan Malcolmyer Work Phone: [facility] 250 DO Work Phone: 08-24-2022 14:35-0400 Systolic blood pressure 132 mm[Hg] Edzeeshan Malcolmyer Work Phone: [facility] 250 DO Work Phone: 03-17-2022 15:30-0400 Body height 157.48 cm Priyanka Malcolmyer Work Phone: [facility] [place] 600 DO Work Phone: 03-17-2022 15:30-0400 Body mass index (BMI) [Ratio] 30.18 kg/m2 Priyanka Malcolmyer Work Phone: [facility] 600 DO Work Phone: 03-17-2022 15:30-0400 Body surface area Derived from formula 1.76 m2 Priyanka Malcolmyer Work Phone: [facility] 600 DO Work Phone: 03-17-2022 15:30-0400 Body weight 74.84 kg Priyanka Malcolmyer Work Phone: [facility] 600 DO Work Phone: 03-17-2022 15:30-0400 Diastolic blood pressure 58 mm[Hg] Priyanka Malcolmyer Work Phone: [facility] 600 DO Work Phone: 03-17-2022 15:30-0400 Heart rate 80 /min Priyanka Malcolmyer Work Phone: [facility] 600 DO Work Phone: 03-17-2022 15:30-0400 Systolic blood pressure 130 mm[Hg] Edzeeshan Malcolmyer Work Phone: [facility] 600 DO Work Phone: 02-15-2022 14:39-0400 Body height 157.48 cm Edzeeshan Malcolmyer Work Phone: [facility] 250 DO Work Phone: 02-15-2022 14:39-0400 Body mass index (BMI) [Ratio] 30.18 kg/m2 Edzeeshan Schrader Hemeyer Work Phone: [facility] 250 DO Work Phone: 02-15-2022 14:39-0400 Body surface area Derived from formula 1.76 m2 Edzeeshan Malcolmyer Work Phone: [facility] 250 DO Work Phone: 02-15-2022 14:39-0400 Body weight 74.84 kg Edzeeshan Malcolmyer Work Phone: [facility] 250 DO Work Phone: 02-15-2022 14:39-0400 Diastolic blood pressure 60 mm[Hg] Edzeeshan Schrader Hemeyer Work Phone: [facility] 250 DO Work Phone: 02-15-2022 14:39-0400 Heart rate 78 /min Edzeeshan Schrader Hemeyer Work Phone: [facility] 250 DO Work Phone: 02-15-2022 14:39-0400 Systolic blood pressure 140 mm[Hg] Edward Macrina Hemeyer Work Phone: [facility] 250 DO Work Phone: 02-15-2022 14:39-0400 10 1 Edzeeshan J Hemeyer Work Phone: [facility] 250 DO Work Phone: Comment on above: PHQ-9 TS 02-03-2022 17:15-0400 Diastolic blood pressure 84 mm[Hg] MD Priyanka Puentes Work Phone: [facility] 02-03-2022 17:15-0400 Heart rate 78 /min MD Priyanka Puentes Work Phone: [facility] 02-03-2022 17:15-0400 Respiratory rate 20 /min MD Priyanka Puentes Work Phone: [facility] 02-03-2022 17:15-0400 SaO2% (BldA) [Mass fraction] 94 % MD Priyanka Puentes Work Phone: [facility] 02-03-2022 17:15-0400 Systolic blood pressure 185 mm[Hg] MD Priyanka Puentes Work Phone: [facility] 02-03-2022 16:00-0400 Body temperature 97.8 [degF] MD Priyanka Puentes Work Phone: [facility] 02-03-2022 10:25-0400 Body height 157.48 cm MD Priyanka Puentes Work Phone: [facility] 02-03-2022 10:25-0400 Body weight 77.5 kg MD Priyanka Puentes Work Phone: [facility] 01-21-2022 12:00-0400 Body temperature 97.6 [degF] MD Priyanka Puentes Work Phone: [facility] 01-21-2022 12:00-0400 Diastolic blood pressure 81 mm[Hg] MD Priyanka Puentes Work Phone: [facility] 01-21-2022 12:00-0400 Heart rate 73 /min MD Priyanka Puentes Work Phone: [facility] 01-21-2022 12:00-0400 Respiratory rate 20 /min MD Priyanka Puentes Work Phone: [facility] 01-21-2022 12:00-0400 SaO2% (BldA) [Mass fraction] 94 % MD Priyanka Puentes Work Phone: [facility] 01-21-2022 12:00-0400 Systolic blood pressure 150 mm[Hg] MD Priyanka Puentes Work Phone: [facility] 01-21-2022 05:59-0400 Body weight 79.6 kg MD Priyanka Puentes Work Phone: [facility] 01-19-2022 09:50-0400 Body height 157.48 cm MD Priyanka Puentes Work Phone: [facility] 01-18-2022 00:00-0400 55 1 Priyanka Puentes Work Phone: [facility] 250 DO Work Phone: Comment on above: [id number] 01-01-2022 11:00-0400 Body height 157.48 cm Eva Panda Other [employer] Other 01-01-2022 11:00-0400 Body mass index (BMI) [Ratio] 31.64 kg/m2 Eva Panda Other [employer] Other 01-01-2022 11:00-0400 Body temperature 97.1 [degF] Eva Panda Other [employer] Other 01-01-2022 11:00-0400 Body weight 78.47 kg Eva Panda Other [employer] Other 01-01-2022 11:00-0400 Diastolic blood pressure 101 mm[Hg] Eva Panda Other [employer] Other 01-01-2022 11:00-0400 Respiratory rate 18 /min Eva Panda Other [employer] Other 01-01-2022 11:00-0400 SaO2% (BldA) [Mass fraction] 96 % Eva Panda Other [employer] Other 01-01-2022 11:00-0400 Systolic blood pressure 156 mm[Hg] Eva Panda Other [employer] Other Encounters Encounter Date Encounter Type Care Provider Facility Start: 08-19-2024 End: 08-19-2024 ambulatory Delmy Conde MD Facility:[facility] Start: 08-05-2024 End: 08-05-2024 ambulatory Delmy Conde MD Facility:[facility] Start: 08-04-2024 End: 08-04-2024 Refill Priyanka Puentes MD Work Phone: [facility] Comment on above: Impaired glucose foreign erance Start: 08-01-2024 End: 08-01-2024 Bamboo flowsheet Priyanka Puentes MD Work Phone: [facility] Start: 08-01-2024 End: 08-01-2024 Bamboo flowsheet Priyanka Puentes MD Work Phone: [facility] Start: 08-01-2024 End: 08-01-2024 Office outpatient visit 25 minutes Priyanka Puentes MD Work Phone: [facility] Comment on above: Acquired hypothyroid ism (CMS/HCC) (Primary Dx); Chronic fatigue; Benign essential hypertension (CMS/HCC); Chronic eczema; Polypharmacy; Obesity (BMI 30.0-34.9) Start: 08-01-2024 End: 08-01-2024 ambulatory EDWARD J HEMEYER Not Available Start: 07-22-2024 End: 07-22-2024 Refill Priyanka Puentes MD Work Phone: [facility] Comment on above: Benign essential hyp ertension (CMS/HCC); Hypothyroidism, unspecified type (CMS/HCC) Start: 07-22-2024 End: 07-22-2024 ambulatory Delmy Conde MD Facility:[facility] Start: 07-16-2024 End: 07-16-2024 Clinisync Result Encounter [...] 15 minutes Karli Dougherty MD Work Phone: [facility] Comment on above: Status post percutan eous transluminal coronary angioplasty (Primary Dx); Coronary artery disease involving ekuk coronary artery of ek[place] heart without angina pectoris; Mixed hyperlipidemia; Hypertension, benign; Body mass index (BMI) 29.0-29.9, adult; Dyspnea on exertion; Former smoker Start: 05-08-2024 End: 05-08-2024 ambulatory [facility] Start: 01-22-2024 End: 01-22-2024 ambulatory PRIYANKA PUENTES Not Available Start: 12-13-2023 End: 12-13-2023 ambulatory PRIYANKA PUENTES Not Available Start: 08-31-2023 End: 08-31-2023 Office outpatient visit 15 minutes Karli Dougherty MD Work Phone: [facility] Comment on above: Coronary artery dise ase involving ekuk coronary artery of ek[place] heart without angina pectoris (Primary Dx); Status post percutaneous transluminal coronary angioplasty; Mixed hyperlipidemia; Hypertension, benign; Dyspnea on exertion; BMI 27.0-27.9,adult; Former smoker Start: 08-31-2023 End: 08-31-2023 ambulatory [facility] Start: 08-30-2023 End: 08-30-2023 ambulatory PRIYANKA PUENTES Not Available Start: 08-08-2023 End: 08-08-2023 ambulatory PRIYANKA PUENTES Not Available Start: 07-21-2023 Clinisync Result Encounter Priyanka Puentes MD Work Phone: [facility] Unsolicited Start: 07-21-2023 Clinisync Result Encounter Priyanka Puentes MD Work Phone: [facility] Unsolicited Start: 03-12-2023 End: 03-14-2023 ambulatory Sima Hdz Facility:[facility] Start: 03-12-2023 End: 03-14-2023 Evaluation and management of inpatient MD Priyanka Puentes Work Phone: [facility] [place] [facility] Work Phone: Start: 03-12-2023 End: 03-14-2023 observation encounter MD Priyanka Puentes Work Phone: [facility] Work Phone: Start: 03-06-[address] Priyanka Puentes Facility:[id number] Start: 03-05-2023 End: 03-07-2023 ambulatory Priyanka Puentes Facility:[facility] Start: 03-05-2023 End: 03-07-2023 Evaluation and management of inpatient MD Priyanka Puentes Work Phone: [facility] [place] [facility] Work Phone: Start: 03-05-2023 End: 03-07-2023 observation encounter MD Priyanka Puentes Work Phone: [facility] Work Phone: Start: 03-02-2023 Telephone encounter Priyanka bhatt Work Phone: [facility] 600 DO Work Phone: Start: 02-16-2023 Office outpatient vi sit 15 minutes Priyanka Puentes Work Phone: [facility] 250 DO Work Phone: Start: 02-16-[address] Priyanka Puentes Facility:[id number] Start: 10-05-2022 End: 10-06-[address] PRIYANKA PUENTES . Facility:H1 Start: 08-24-2022 Office outpatient vi sit 25 minutes Priyanka Puentes Work Phone: [facility] 250 DO Work Phone: Start: 08-24-[address] Priyanka Puentes Facility: Start: 08-15-2022 End: 08-16-[address] ANUM WOODY Facility:H1 Start: 06-14-2022 End: 07-19-[address] PRIYANKA PUENTES . Facility:H1 Start: 04-12-2022 End: 04-13-[address] PRIYANKA PUENTES . Facility:H1 Start: 03-29-2022 End: 03-30-[address] PRIYANKA PUENTES . Facility:H1 Start: 03-25-2022 Telephone encounter Priyanka bhatt Work Phone: [facility] 250 DO Work Phone: Start: 03-17-2022 Office outpatient vi sit 25 minutes Priyanka Puentes Work Phone: [facility] 600 DO Work Phone: Start: 03-17-2022 ambulatory Ms. Khanh Persaud Facility: Start: 02-24-2022 End: 06-14-[address] PRIYANKA PUENTES . 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 Facility:H1 Start: 01-01-2022 End: 01-01-2022 ambulatory Eva Panda Other [employer] Other Start: 01-01-2022 Office outpatient ne w [...] Puentes Work Phone: Biopsy of skin Priyanka stovallr Work Phone: Excision of cyst Priyanka gilbert [...] procedure 12/11/2024 1:30 PM EDT Office Visit [facility] [address] [facility] [address] [place] [address] Karli Dougherty MD [address] [facility] [address] [place] [address] [place] [address] [facility] Start: 08-30-2024 Medicare Annual Wellness Visit Medicare Annual Wellness Visit (AWV) [facility] Start: 08-01-2024 End: 08-01-2024 Patient encounter procedure 08/01/2024 10:30 AM EST Office Visit [facility] [address] [place] [address] [place] [address] Priyanka Puentes MD [address] [place] [address] Acquired hypothyroidism (CMS/HCC); Chronic fatigue; Polypharmacy; Obesity (BMI 30.0-34.9) [facility] Comment on above: Acquired hypothyroidism (CMS/HCC); Chronic fatigue; Polypharmacy; Obesity (BMI 30.0-34.9) Start: 07-29-2024 End: 07-29-2024 Patient encounter procedure [facility] Start: 07-15-2024 End: 07-15-2024 Patient encounter procedure [facility] Start: 05-14-2024 End: 05-14-2024 Patient encounter procedure 05/14/2024 1:45 PM EST Office Visit [facility] [address] [facility] [address] [place] [address] Priyanka Puentes MD [address] [place] [address] (Fax) Arrived [facility] Comment on above: Arrived Start: 05-08-2024 End: 05-08-2025 Alanine aminotransferase [Enzymatic activity/volume] in Serum or Plasma by With P-5'-P Alanine Aminotransferase Lab Routine Mixed hyperlipidemia Expected: 05/08/2024 (Approximate), Expires: 05/08/2025 [facility] Service Area Work Phone: Comment on above: Expected: 05/08/2024 (Approximate), Expi res: 05/08/2025 Start: 05-08-2024 End: 05-08-2025 Aspartate aminotransferase [Enzymatic activity/volume] in Serum or Plasma by With P-5'-P Aspartate Aminotransferase Lab Routine Mixed hyperlipidemia Expected: 05/08/2024 (Approximate), Expires: 05/08/2025 [facility] Work Phone: Comment on above: Expected: 05/08/2024 (Approximate), Expi res: 05/08/2025 Start: 05-08-2024 End: 05-08-2025 Comprehensive metabolic 2000 panel - Serum or Plasma Comprehensive Metabolic Panel Lab Routine Hypertension, benign Expected: 05/08/2024 (Approximate), Expires: 05/08/2025 [facility] Work Phone: Comment on above: Expected: 05/08/2024 (Approximate), Expi res: 05/08/2025 Start: 05-08-2024 End: 05-08-2025 Lipid 1996 panel - Serum or Plasma Lipid Panel Lab Routine Mixed hyperlipidemia Expected: 05/08/2024 (Approximate), Expires: 05/08/2025 [facility] Work Phone: Comment on above: Expected: 05/08/2024 (Approximate), Expi res: 05/08/2025 Start: 05-08-2024 End: 05-08-2024 Patient encounter procedure 05/08/2024 1:40 PM EST Office Visit [facility] [address] [id number] Karli Dougherty MD 703 [facility], [address] [address] [facility] Start: 08-31-2023 FUV, Provider: Karli Dougherty, Status: Pen, Time: 1:00 PM FUV, Provider: Karli Dougherty, Status: Pen, Time: 1:00 PM [facility] 250 DO Work Phone: Start: 08-08-2023 End: 08-08-2023 Patient encounter procedure 08/08/2023 10:00 AM EST Office Visit [facility] [address] [place] [address] Priyanka Puentes MD [address] [place] [address] (Fax) [facility] Start: 03-14-2023 [facility] Start: 03-12-[address] [facility] Start: 03-12-[address] [facility] Start: 03-12-[address] [facility] Start: 03-12-2023 Referral to occupational therapist [facility] Start: 03-12-2023 [facility] Start: 03-07-2023 [facility] Start: 03-06-2023 Comprehensive metabolic 2000 panel - Serum or Plasma [facility] Start: 03-06-2023 Doppler ultrasonography of bilateral carotid arteries US carotid doppler BI [facility] Start: 03-06-[address] [facility] Start: 03-06-2023 [facility] Start: 03-05-[address] [facility] Start: 03-05-[address] [facility] Start: 03-05-2023 Referral to occupational therapist [facility] Start: 03-05-2023 [facility] Start: 03-05-2023 [facility] Start: 02-16-2023 FUV, Provider: Karli Dougherty, Status: Pen, Time: 1:20 PM FUV, Provider: Karli Dougherty, Status: Pen, Time: 1:20 PM [facility] 250 DO Work Phone: Start: 01-27-2023 Urine screening for protein Diabetes: Urine Protein Screening [facility] Start: 11-15-2022 Hemoglobin A1c measurement Diabetes: Hemoglobin A1C [facility] Start: 08-23-2022 Medicare Annual Wellness (AWV) Medicare Annual Wellness (AWV) [facility] Start: 07-06-2022 FUV, Provider: Karli Dougherty, Status: Pen, Time: 2:20 PM FUV, Provider: Karli Dougherty, Status: Pen, Time: 2:20 PM [facility] 600 DO Work Phone: Start: 03-17-2022 FUV, Provider: Khanh Mercado, Status: Pen, Time: 3:30 PM FUV, Provider: Khanh Mercado, Status: Pen, Time: 3:30 PM [facility] 250 DO Work Phone: Start: 02-03-2022 [facility] Work Phone: Start: 02-03-2022 Hospital admission [facility] Work Phone: Start: 02-03-2022 CL PTCA Ea Add LAD CL PTCA Ea Add LAD [facility] Start: 02-03-2022 CL Stent 1st Vessel LAD GAYATHRI CL Stent 1st Vessel LAD GAYATHRI [facility] Start: 02-03-2022 [facility] Start: 02-03-2022 End: 02-03-2022 Admission to same day surgery center Departed Surgical Day Care [facility] Start: 02-01-2022 End: 02-01-2022 Patient encounter procedure Departed Clinical [facility] Start: 01-21-2022 [facility] Work Phone: Start: 01-18-2022 Referral to furnace charger [facility] Work Phone: Start: 01-18-2022 Hospital admission [facility] Work Phone: Start: 01-18-2022 Dilation of Coronary Artery, Two Arteries with Four or More Drug-eluting Intraluminal Devices, Percutaneous Approach Dilation of Coronary Artery, Two Arteries with Four or More Drug-eluting Intraluminal Devices, Percutaneous Approach [facility] Start: 01-18-2022 Fluoroscopy of Left Heart using Low Osmolar Contrast Fluoroscopy of Left Heart using Low Osmolar Contrast [facility] Start: 01-18-2022 Fluoroscopy of Multiple Coronary Arteries using Low Osmolar Contrast Fluoroscopy of Multiple Coronary Arteries using Low Osmolar Contrast [facility] Start: 01-18-2022 Measurement of Cardiac Sampling and Pressure, Left Heart, Percutaneous Approach Measurement of Cardiac Sampling and Pressure, Left Heart, Percutaneous Approach [facility] Start: 10-16-2018 Urine screening for protein Diabetes: Urine Protein Screening [facility] Start: 02-21-1992 Zoster Vaccines (1 of 2) Zoster Vaccines (1 of 2) [facility] Start: 02-21-1964 DTaP/Tdap/Td Vaccines (1 - Tdap) DTaP/Tdap/Td Vaccines (1 - Tdap) [facility] Start: 02-21-1960 Diabetes mellitus screening Diabetes Screening [facility] Start: 1942 Lipid panel Lipid Panel [facility] Start: 1942 Medicare Annual Wellness Visit Medicare Annual Wellness Visit (AWV) [facility] Start: 1942 Thyroid stimulating hormone measurement TSH Level [facility] Patient Education [facility] Work Phone: Patient referral [facility] Work Phone: Immunizations Immunization Date Immunization Notes Care Provider Fa cili 04-23-2024 ABRYSVO - Respirator y syncytial virus (RSV), vaccine, bivalent, protein subunit RSV prefusion F, diluent reconstituted, 0.5 mL, PF Priyanka Puentes MD Work Phone: [facility] 04-17-2024 influenza, high dose seasonal, preservative-free Priyanka Puentes MD Work Phone: [facility] 05-09-2023 Influenza, High-dose Seasonal, Quadrivalent, Preservative Free Priyanka Puentes MD Work Phone: [facility] 05-17-2022 Fluzone High-Dose Quadrivalent 0.7 ML Intramuscular Suspension Prefilled Syringe Priyanka Puentes Work Phone: [facility] 250 DO Work Phone: 04-29-2022 Moderna Bivalent Saenz ster Vaccination Priyanka Puentes MD Work Phone: [facility] 04-29-2022 Pfizer COVID-19 Vac Bivalent 30 MCG/0.3ML Intramuscular Suspension Priyanka Puentes Work Phone: [facility] Work Phone: 04-19-2021 influenza, injectabl e, quadrivalent, preservative free Priyanka Puentes Work Phone: [facility] 03-17-2021 Pfizer-BioNTNewsvine COVI D-19 Vacc 30 MCG/0.3ML Intramuscular Suspension Priyanka Puentes Work Phone: [facility] 250 DO Work Phone: 03-16-2021 Pfizer Purple Cap SARS-CoV-2 Vaccination Priyanka Puentes MD Work Phone: [facility] 07-31-2020 COVID-19 Bob Ordonez (Pfizer) MD Priyanka Puentes Work Phone: [facility] 07-30-2020 Pfizer Purple Cap SARS-CoV-2 Vaccination Priyanka Puentes MD Work Phone: [facility] 07-08-2020 Pfizer-BioNTech COVI D-19 Vacc 30 MCG/0.3ML Intramuscular Suspension Priyanka Puentes Work Phone: [facility] 250 DO Work Phone: 07-07-2020 Pfizer Purple Cap SARS-CoV-2 Vaccination Priyanka Puentes MD Work Phone: [facility] 07-03-2020 COVID-19 mRNABob (Pfizer) MD Priyanka Puentes Work Phone: [facility] 03-26-2020 Seasonal trivalent influenza vaccine, adjuvanted, preservative free Priyanka Puentes Work Phone: [place] [address] DO Work Phone: 03-25-2020 Seasonal trivalent influenza vaccine, adjuvanted, preservative free Priyanka Puentes MD Work Phone: [facility] 04-09-2019 influenza, injectabl e, quadrivalent, preservative free Priyanka Puentes MD Work Phone: [facility] 04-09-2019 Seasonal trivalent influenza vaccine, adjuvanted, preservative free Priyanka Puentes Work Phone: [facility] 250 DO Work Phone: 04-03-2018 influenza, injectabl e, quadrivalent, preservative free Priyanka Schrader Hemeyer Work Phone: [facility] DO Work Phone: 04-02-2018 influenza, injectabl e, quadrivalent, preservative free Priyanka Puentes MD Work Phone: [facility] 04-02-2018 pneumococcal conjuga te vaccine, 13 valent Edward J Hemeyer Work Phone: [facility] Work Phone: 03-20-2017 pneumococcal conjuga te vaccine, 13 valent Edward J Hemeyer Work Phone: [facility] DO Work Phone: 03-13-2017 influenza, seasonal, injectable Edward J Hemeyer Work Phone: [facility] Work Phone: 04-14-2016 influenza, injectabl e, quadrivalent, contains preservative Priyanka Schrader Hemebud Work Phone: [facility] Work Phone: 04-12-2016 influenza, injectabl e, quadrivalent, preservative free Priyanka Puentes MD Work Phone: [facility] 04-17-2015 influenza, injectabl e, quadrivalent, preservative free Priyanka Puentes MD Work Phone: [facility] 04-03-2015 influenza, seasonal, injectable Prachiward J Hemeyer Work Phone: [facility] 250 DO Work Phone: 05-20-2009 pneumococcal polysaccharide vaccine, 23 valent Priyanka J Hemeyer Work [facility]: [facility] Work Phone: Payers Date Payer Category Payer [facility] Insurance [employer] [id number] 2021 Unknown 2007 Medicare [id number] 1959 Medicare [id number] [id number] 1959 Medicare [id number] 2.16.840.1.485830.19 1942 Unknown [id number] 2.16.840.1.112684.3.579.2. 593 1942 Unknown [id number] 2.16.840.1.681954.3.579.2. 593 1942 Unknown [id number] 2.16.840.1.438304.3.579.2. 593 1942 Unknown [id number] 2.16.840.1.033256.3.579.2. 593 1942 Unknown [id number] 2.16.840.1.454381.3.579.2. 593 1942 Unknown [id number] 2.16.840.1.767107.3.579.2. 593 1942 Unknown [id number] 2.16.840.1.142551.3.579.2. 593 1942 Unknown [id number] 2.16.840.1.509446.3.579.2. 593 1942 Unknown [id number] 2.16.840.1.285349.3.579.2. 356 1942 Unknown [id number] 2.16.840.1.200052.3.579.2. 356 1942 Unknown [id number] 2.16.840.1.029826.3.579.2. 356 1942 Unknown [id number] 2.16.840.1.905776.3.579.2. 356 1942 Unknown [id number] 2.16.840.1.177535.3.579.2. 1244 1942 Unknown [id number] 2.16.840.1.625149.3.579.2. 1244 1942 Unknown [id number] 2.16.840.1.672313.3.579.2. 1259 1942 Unknown [id number] 2.16.840.1.758883.3.579.2. 1259 1942 Unknown [id number] 2.16.840.1.990569.3.579.2. 1259 1942 Unknown [id number] 2.16.840.1.169715.3.579.2. 1259 1942 Unknown [id number] 2.16.840.1.676020.3.579.2. 1259 1942 Unknown [id number] 2.16.840.1.300652.3.579.2. 1259 1942 Unknown [id number] 2.16.840.1.181651.3.579.2. 196 1942 Unknown [id number] 2.16.840.1.737406.3.579.2. 196 1942 Unknown [id number] 2.16.840.1.509397.3.579.2. 196 Medicare Medicare Outpatient [id number] Self-pay Self Pay [id number] Unknown [id number] Unknown [facility] [place] [id number] Social History Date Type Detail Facility Start: 02-14-2023 End: 08-30-2023 Sex Assigned At [facility] Start: 02-03-2022 End: 08-08-2023 Tobacco smoking status MNIS Ex-smoker (finding) [facility] Start: 1940 Sex Assigned At Female F [facility] Start: 02-14-2023 End: 08-30-2023 Former smoker Former smoker [facility] Comment on above: nicotine lozenges; Start: 03-12-2023 Tobacco smoking stat us [facility] Smoker (finding) [facility] History of tobacco use Cigarette Smoker [facility] Start: 07-05-2023 End: 08-01-2024 Alcohol intake Ex-drinker (finding) [facility] Within [...] Sex Assigned At Not on file [facility] Start: 08-08-2023 End: 08-31-2023 Tobacco use and exposure Smokeless tobacco non-user [facility] Work Phone: Start: 08-31-2023 End: 05-08-2024 Alcohol intake Lifetime non-drinker (finding) [facility] Work Phone: Start: 08-21-2023 End: 05-08-2024 Exposure to SARS-CoV-2 (event) Not sure [facility] Medical Equipment Procedure Code Equipment Code Equipment Original Text Equipment Identifier Dates [id number] FDA Start: 01-20-2022 Drug-eluting cor onary artery stent, bxi-dloknhnnkidyt-xiqea er-coated ()[id number] FDA Start: 01-20-2022 Drug-eluting cor onary artery stent, puu-ikukxbtivowsl-xkthr er-coated ()[id number] FDA Start: 01-20-2022 Drug-eluting cor onary artery stent, cag-tdpdfwbfzwroa-rshru er-coated ()[id number] FDA Start: 01-20-2022 Drug-eluting cor onary artery stent, fjz-gespnkuxrjwaq-gjxdn er-coated ()[id number] FDA Start: 02-03-2022 [id number] FDA Start: 01-20-2022 [id number] FDA Start: 01-20-2022 [id number] FDA Start: 01-20-2022 [id number] FDA Start: 01-20-2022 [id number] FDA Start: 01-20-2022 [id number] FDA Start: 01-20-2022 Goals Date Patient Goal Desired Activity /State Functional Status Date Assessment Result Facility 03-14-2023 Functional status Patient at Baseline [facility] Work Phone: 03-07-2023 Functional status Patient at Baseline [facility] Work Phone: 03-05-2023 Functional status Disability Sta tus Patient at Baseline [facility] Work Phone: 02-15-2022 PHQ-9 [id number] Moderate (10-14) [facility] 250 DO Work Phone: 02-03-2022 Functional status Patient at Baseline [facility] Work Phone: 01-21-2022 Functional status Patient at Baseline [facility] Work Phone: Mental Status Date Assessment Result Facility 03-14-2023 Cognitive function Cognitive Sta tus Patient at Baseline [facility] Work Phone: 03-07-2023 Cognitive function Cognitive Sta tus Patient at Baseline [facility] Work Phone: 02-03-2022 Cognitive function Cognitive Sta tus Patient at Baseline [facility] Work Phone: 01-21-2022 Cognitive function Cognitive Sta tus Patient at Baseline [facility] Work Phone: Clinical Notes 08-24-2021 to 08-01-2024 Priyanka Puentes MD - 08/01/2024 10:30 AM ESTTelephone Encounter - Priyanka Puentes MD - 06/11/2024 10:42 AM ESTTelephone Encounter - Priyanka Puentes MD - 06/11/2024 10:42 AM EST Note Date & Type Note Facility 08-01-2024 History of Presen t illness Narrative Images from the original note were not included. Patient ID: Steven Harding is a 84 y.o. female who presents for: Thyroid: Pt here today to review his/hers thyroid labs and any medication changes needed. Fatigue: Absent, feels best she has felt in years. Weight Gain: Absent Inability to lose weight: Absent Hair Changes: Present, thinning Review of Systems Constitutional: Negative for appetite change and fatigue. HENT: Negative for trouble swallowing and voice change. Cardiovascular: Negative for palpitations. Musculoskeletal: Positive for arthralgias. Negative for myalgias. Psychiatric/Behavioral: Negative for sleep disturbance. The patient is not nervous/anxious. Endocrine: Positive for cold intolerance and heat intolerance. Clinisync Result Encounter on 07/16/2024 Component Date Value Ref Range Status FREE T3 07/16/2024 1.79 (L) 2.18 - 3.98 pg/mL Final THYROID STIMULATING HORMONE 07/16/2024 1.771 0.358 - 3.740 uIU/mL Final FREE T4 07/16/2024 1.73 (H) 0.76 - 1.46 ng/dL Final Objective The patient is pleasant and in no acute distress The patient has good eye contact and clear speech The patient has a bilateral mildly reddened and somewhat scaly exanthem with areas of confluence near the antecubital fossa and wrapping around posteriorly on both arms. Some excoriation noted. No evidence of secondary infection. Visit Vitals Ht 5' 2 Wt 148 [...] mg) by mouth every 12 (twelve) hours (Patient taking differently: Take 1 tablet by mouth in the morning and 1 tablet before bedtime.) 30 tablet 0 naproxen sodium (Aleve) 220 MG tablet Take 220 mg by mouth 2 (two) times a day as needed. nitroglycerin (Nitrostat) 0.[address] 0.4 mg under the tongue. oxybutynin (Ditropan) 5 MG tablet Take 1 tablet (5 mg) by mouth in the morning and 1 tablet (5 mg) before bedtime. 180 tablet 1 potassium chloride CR (K-Tab) 20 MEQ ER tablet Take 20 mEq by mouth Daily Do not crush, chew, or split. [DISCONTINUED] gabapentin (Neurontin) 100 MG capsule Titrate from 1 to 4 capsules three times daily as needed for pain 100 capsule 0 [DISCONTINUED] Potassium Citrate,Elemental K, 99 MG capsule Take 1 Capful by mouth in the morning. [DISCONTINUED] predniSONE (Deltasone) 10 MG tablet Every 2 day tapering dose; 5,5,4,4,3,3,2,2,1,1,0.5,0.5 31 tablet 0 No current facility-administered medications on file prior to visit. 1. Acquired hypothyroidism (CMS/HCC) (Primary) Chronic problem, stable Her labs are abnormal. We discussed that her TSH is in the normal range, her free T4 mildly elevated, but her free T3 is also below normal. 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 She prefers traditional treatment versus the Integrated treatment and the complexities. I discussed the possibility of adjusting her labs down slightly, but since she is not technically hyperthyroid she would prefer to leave them alone. - levothyroxine (Synthroid) 112 MCG tablet; Take 1 tablet (112 mcg) by mouth in the morning. Take before meals. Dispense: 90 tablet; Refill: 3 2. Chronic fatigue Chronic problem, stable, complex in nature with moderate decision making. I discussed with the patient and/or their territory account representative, their fatigue issues. We discussed how this is improved significantly. We discussed that the patient will almost certainly need to continue to make lifestyle changes including diet, sleep, exercise, and stress management as appropriate. We discussed how this is almost always a multifactorial problem. We further discussed how we will continue to search for refinements in their current treatments or evaluation for further disease processes and then support or treat them as appropriate. We discussed how we can frequently improve the symptoms, but may not be able to completely cure or resolve the issue. The patient was given a chance to ask questions and all questions were answered. 3. Benign essential hypertension (CMS/HCC) Chronic problem, stable, to goal Also cross treated with her cardiac medications prescribed by Cardiology. In prescribing a renewal to their current medication, consideration of the following encompasses moderate decision making; the current prescriptions and supplements, the current allergies and medication intolerances, current medical conditions, and potential drug interactions. Any changes to risks, benefits, and reason for renewing their current medication due to the above were discussed. The patient was given a chance to ask questions today and all questions were answered. The patient is to contact us if any other questions arise or if any problems occur. (Utilizing the original 1994/1996 guidelines or the 2020 office/outpatient code guidelines for selecting the level of E/M service, In both sets of guidelines, prescription drug management appears in the moderate medical decision making (MDM) row. Neither the original guidelines nor the new guidelines state that a new prescription or change is needed in order to credit prescription drug management) - amLODIPine (Norvasc) 5 MG tablet; Take 1 tablet (5 mg) by mouth in the morning. Dispense: 90 tablet; Refill: 1 4. Chronic eczema New, chronic problem This is been going on for over a month November closer to 2 months. We discussed the basics of eczema and the pathology and how it usually needs to be managed. Right now the itching is what is driving her. We discussed and she will try the lsda-xgi-upcqsgd CeraVe product. If that does not work she will go ahead and contact us back and we can prescribe some steroid. - Pramoxine HCl 1 % cream; PRN 5. Polypharmacy Chronic problem The patient meets the criteria for polypharmacy; 5 or more prescriptions or multi-morbidity defined as 5 or more diagnoses. Polypharmacy can significantly increase the risk of preventable adverse drug events and negatively impact adherence. Consideration of diverse factors such as clinician agreement, patient perspective, and de-prescribing, as appropriate can improve patient outcomes while simplifying care. This requires longitudinal monitoring as there is at least a moderate risk of morbidity and requires at least a moderate degree of evaluation and management. 6. Obesity (BMI 30.0-34.9) Encouraged safe but increased activity. documented in this encounter [facility] 06-11-2024 Telephone encounter Note Rx sent [facility] 06-11-2024 Miscellaneous Notes Rx sent Steven called, She is going today for her xray on her hip. She states that she will be out of her gabapentin 100 mg today. She is requesting a refill to help with her pain. She stated tht nothing is scheduled yet on getting it fixed. [facility] uses [facility] [place]. documented in this encounter [facility] 06-11-2024 Telephone encounter Note Steven called, She is going today for her xray on her hip. She states that she will be out of her gabapentin 100 mg today. She is requesting a refill to help with her pain. She stated tht nothing is scheduled yet on getting it fixed. She uses [facility] [place]. [facility] 05-28-2024 Telephone encounter Note [facility] THEY DO NOT HAVE THIS ORDER AND THERE WAS NO rx DONE. REPRINTED EXSISTING ORDER AND lm ON Steven'S PHONE THAT IT WOULD BE FAXED OVER THERE. [facility] 05-28-2024 Miscellaneous Notes Called [facility] sOMEHOW THEY DO NOT HAVE THIS ORDER AND THERE WAS NO rx DONE. REPRINTED EXSISTING ORDER AND lm ON Steven'S PHONE THAT IT WOULD BE FAXED OVER THERE. Called and talked with her. Pain relief with 2 gabapentin 100mg. Reviewed lumbar X ray with her, after preview no hip x ray. Will contact [facility] tomorrow and try to get results. Steven left a message on the nurse line. She states she has not heard back on her hip and back xray and that she is still in a lot of pain. She is requesting a call back. documented in this encounter [facility] 05-27-2024 Telephone encounter Note Called and talked with her. Pain relief with 2 gabapentin 100mg. Reviewed lumbar X ray with her, after preview no hip x ray. Will contact [facility] tomorrow and try to get results. [facility] 05-27-2024 Telephone encounter Note Steven left a message on the nurse line. She states she has not heard back on her hip and back xray and that she is still in a lot of pain. She is requesting a call back. [facility] 05-14-2024 History of Presen t illness [...] is not improving. documented in this encounter [facility] 05-08-2024 History of Presen t illness [...] coronary angioplasty 2. Coronary artery disease involving ekuk coronary artery of ekuk heart without angina pectoris Follow Up In [...] plan. documented in this encounter [facility] Work Phone: 05-08-2024 Instructions Katharina [...] exercise. documented in this encounter [facility] Work Phone: 08-31-2023 History of [...] 3 Assessment/Plan 1. Coronary artery disease involving ekuk coronary artery of ekuk heart without angina pectoris Follow Up In [...] plan. documented in this encounter [facility] Work Phone: 08-31-2023 Instructions Ruba [...] exercise. documented in this encounter [facility] Work Phone: 03-13-2023 Progress note Note Date/Time March 13, 2023 4:47pm [facility] [address] [place] [address] Hospitalist Progress Note Signed Patient: Steven Harding MR#: [id number] : 1940 Acct:[id number] Age/Sex: 83 / F Adm Date: 3 Loc: Room: [address] [place] [address] Type: ADM INOo Attending Dr: Rufus Ricks [...] Hyponatremia of 128. TSH was suppressed on [employer] Thyroid and has been checked twice with [...] <Electronically signed by Rufus Ricks DO> 03/13/23 7737 [facility] Work Phone: 1([phone]) 520-271510-01-2023 History and physical note Author Sima Hdz [facility] March 12, 2023 7:49pm Note Date/Time March 12, 2023 7: 50pm [facility] [address] [place] [address] Hospitalist H&P Signed Patient: Steven Harding MR#: [id number] : 1940 Acct:[id number] Age/Sex: 83 / F Adm Date: 3 Loc: Room: [address] [place] [address] Type: ADM IN Attending Dr: Sima Hdz [...] noted below or in HPI [facility] Medical History Aneurysm Aortic. Being monitored. Per pt found at [facility] during last visit there in January of [...] Confirmed 03/05/23] thyroid (pork) 60 mg tablet (STAFF ANTISUBMARINE OFFICER Thyroid) 60 mg PO BID 01/18/22 [History [...] % (Auto) 13.2 % (.) 03/12/23 14:45 [place] % (Auto) 5.1 % (.) 03/12/23 14:45 Eos % (Auto) 2.0 % (.) 03/12/23 14:45 Baso % (Auto) 0.4 % (.) 03/12/23 14:45 Nucleat RBC Rel Count 0.0 /100 WBC (0-0.5) 03/12/23 14:45 Neut # (Auto) 7.0 x10E3/uL (1.8-7.7) 03/12/23 14:45 Lymph # (Auto) 1.2 x10E3/uL (1.00-4.8) 03/12/23 14:45 [place] # (Auto) 0.5 x10E3/uL (0.0-0.8) 03/12/23 14:45 [...] pH 7.5 (5.0-9.0) 03/12/23 15:55 Ur Specific [place] 1.010 (1.001-1.030) 03/12/23 15:55 Urine Protein Negative [...] Hyponatremia of 128. TSH was suppressed on [employer] Thyroid and has been checked twice with [...] <Electronically signed by Sima Hdz MD> 03/12/231948 [facility] Work Phone: 1([phone]) 607-751009-26-2023 Discharge summary Author Chuck Chacon [facility] March 07, 2023 9:30am Note Date/Time March 07, 2023 9:30am [facility] [address] [place] [address] Discharge Summary Signed Patient: Steven Harding MR#: [id number] : 1940 Acct:[id number] Age/Sex: 83 / F Adm Date: 3 Loc: Room: [address] [place] [address]: Chuck Chacon MD Copies to: [...] been attempted on scopolamine patch, and her furnace charger had decreased herlosartan dose. She presented again [...] follow-up with her primary care physician and furnace charger as an outpatient for further management. She may be reintroduced to some of her cardioprotective antihypertensives in the future if deemed reasonable by her furnace charger and primary care physician. 35 minutes spent [...] TABLET BY MOUTH TWICE DAILY thyroid (pork) [STAFF ANTISUBMARINE OFFICER Thyroid] 60 mg tablet 60 mg PO [...] <Electronically signed by Chuck Chacon MD> 03/07/23929 [facility] Work Phone: 1(891) 512-582109-25-2023 Progress note Author Chuck Chacon [facility] March 06, 2023 1:51pm Note Date/Time March 06, 2023 1:38pm [facility] [address] [place] [address] Hospitalist Progress Note Signed Patient: Steven Harding MR#: [id number] : 1940 Acct:[id number] Age/Sex: 83 / F Adm Date: 3 Loc: 3T Room: [address] [place] [address] Type: ADM INOo Attending Dr: Chuck Chacon [...] 1,000 Ml IV 03/07/23 07:49 60 mls/hr .[id number] YVROSE Administration Insulin Aspart 0 units 03/06/23 [...] be improved from previous assessment during patient's AL -We will trend orthostatic vital signs -Monitor on telemetry for at least 24 hours -Continue metoprolol, continue to hold losartan, spironolactone and nifedipine for now -May consider restarting low doses in the a.m.-patient has lost close to 60 pounds since her AL-likely that BP medications are more potent -PT/OT [...] signed by Chuck Chacon MD> 03/06/23 1351 [facility] Work Phone: 1(823) 872-679609-25-2023 History and physical note Author Jemal Jones [facility] March 05, 2023 11:19pm Note Date/Time March 05, 2023 10:21pm [facility] [address] [place] [address] Hospitalist H&P Signed Patient: Steven Harding MR#: [id number] : 1940 Acct:[id number] Age/Sex: 83 / F Adm Date: 3 Loc: 3T Room: [address] [place] [address] Type: ADM INOo Attending Dr: Jemal Jones [...] current visual changes, headache. Noted that her furnace charger has recently decreased her losartan due to [...] mentioned elsewhere in the documentation [facility] Medical History Aneurysm Aortic. Being monitored. Per pt found at [facility] during last visit there in January of [...] Confirmed 03/05/23] thyroid (pork) 60 mg tablet (STAFF ANTISUBMARINE OFFICER Thyroid) 60 mg PO BID 01/18/22 [History [...] % (Auto) 14.7 % (.) 03/05/23 18:07 [place] % (Auto) 5.4 % (.) 03/05/23 18:07 Eos % (Auto) 2.8 % (.) 03/05/23 18:07 Baso % (Auto) 0.5 % (.) 03/05/23 18:07 Nucleat RBC Rel Count 0.1 /100 WBC (0-0.5) 03/05/23 18:07 Neut # (Auto) 8.7 x10E3/uL (1.8-7.7) H 03/05/23 18:07 Lymph # (Auto) 1.7 x10E3/uL (1.00-4.8) 03/05/23 18:07 [place] # (Auto) 0.6 x10E3/uL (0.0-0.8) 03/05/23 18:07 [...] <Electronically signed by Jemal Jones MD> 03/05/23 4851 [facility] Work Phone: 1(398) 262-968208-25-2022 [facility] Progress note Author Wiley Beal [facility] January 20, 2022 1:31pm Note Date/Time January 20, 2022 1: 31pm [facility] [address] [place] [address] Hospitalist Progress Note Signed Patient: Steven Harding MR#: [id number] : 1940 Acct:[id number] Age/Sex: 81 / F Adm Date: 2 Loc: Room: [address] [place] [address] Type: ADM IN Attending Dr: Wiley Beal [...] of care and confirmed it with the resident/student/STAFF ANTISUBMARINE OFFICER. Patient was seen and examined at bedside [...] signed by Wiley Beal MD> 01/20/22 1331 [facility] Work Phone: 1(547) 746-769308-11-2022 [facility] Progress note Author Wiley Beal [facility] January 19, 2022 1:35pm Note Date/Time January 19, 2022 1: 35pm [facility] [address] [place] [address] Hospitalist Progress Note Signed Patient: Steven Harding MR#: [id number] : 1940 Acct:[id number] Age/Sex: 81 / F Adm Date: 2 Loc: Room: [address] [place] [address] Type: ADM IN Attending Dr: Wiley Beal [...] Meds Allergies No Known Allergies Allergy (Verified 06/01/20 20:09) Active Meds: Active Medications Generic Name [...] Vial SUBCUT 01/19/23 08:59 Not Given Q12HR [facility] Dextrose/Sodium Chloride 1,000 mls @ 100 mls/hr 01/19/22 11:45 01/19/22 12:33 5 % Dextrose-0.45 % Nacl IV 01/19/23 11:44 100 mls/hr .Q10H YVROSE Administration Insulin Aspart 0 units 01/19/22 08:00 01/19/22 12:35 Insulin Aspart 300 Units/3 Ml Insuln.Pen SUBCUT 01/19/23 07:59 Not Given TID.WM.HS [facility] Protocol Losartan Potassium 100 [...] pain. [facility] pain is much better CXR [facility] ED reported as no acute cardiopulmonary abnormality EKG [facility] ED (i personally reviewed it) shows NSR@90 bpm no significant acute changes nitro patch(started in [place] ED) Morphine prn Telemetry Antiplatelet: Aspirin Anticoagulation: Heparin Drip (started in [place] ED) Start Beta sarbjit therapy Serial EKGs [...] <Electronically signed by Wiley Beal MD> 01/19/22 7318 [facility] Work Phone: 1(580) 299-979108-10-2022 Consult note Author Karli Dougherty [facility] January 19, 2022 12:38pm Note Date/Time January 19, 2022 12 :25pm [facility] [address] [place] [address] Cardiology Consult Note Signed with Addenda Patient: Steven Harding MR#: [id number] : 1940 Acct:[id number] Age/Sex: 81 / F Adm Date: 2 Loc: Room: [address] [place] [address] Type: ADM IN Attending Dr: Wiley Beal [...] Confirmed 01/18/22] thyroid (pork) 60 mg tablet (STAFF ANTISUBMARINE OFFICER Thyroid) 60 mg PO DAILY 01/18/22 [History [...] x10E3/uL Lymph # (Auto) 1.5 (1.00-4.8) x10E3/uL [place] # (Auto) 0.4 (0.0-0.8) x10E3/uL Eos # [...] signed by MD Karli Dougherty> 01/19/22 1237 [facility] Work Phone: 1(578) 177-120608-10-2022 History and physical note Author Justa Westfall [facility] January 19, 2022 7:35am Note Date/Time January 18, 2022 11: 29pm [facility] [address] [place] [address] Hospitalist H&P Signed Patient: Steven Harding MR#: [id number] : 1940 Acct:[id number] Age/Sex: 81 / F Adm Date: 2 Loc: Room: [address] [place] [address] Type: ADM IN Attending Dr: Justa Westfall MD Copies to: MD Justa Santos MD~ HPI DATE OF EXAMINATION: 01/18/22 HISTORY OF PRESENT ILLNESS: This is a pleasant 81F with PMH of HTN, PAD(s/p stenting), Prediabetes, Hypothyroidism who p/w chest pain to the [facility] and transferred for the evaluation and [...] Confirmed 01/18/22] thyroid (pork) 60 mg tablet (STAFF ANTISUBMARINE OFFICER Thyroid) 60 mg PO DAILY 01/18/22 [History [...] pain. [facility] pain is much better CXR [facility] ED reported as no acute cardiopulmonary abnormality EKG [facility] ED (i personally reviewed it) shows NSR@90 bpm no significant acute changes nitro patch(started in [place] ED) Morphine prn Telemetry Antiplatelet: Aspirin Anticoagulation: Heparin Drip (started in [place] ED) Start Beta sarbjit therapy Serial EKGs [...] bedside Documented By: Justa Westfall MD 01/18/22 8396 Signed By: <Electronically signed by Justa Westfall MD> 01/19/22 2327 [facility] Work Phone: [phone]) [phone] Evaluation note* Encounter Date Diagnosis Assessment Notes [...] worsening symptoms or concerns. You may use nspk-qdo-hpgalge lidocaine gel to the rash for comfort. Patient reports her palliative senior np is Dr. Lenz, she will follow-up with them on Monday. [employer] Other 03-15-2022 History of Present illness Narrative* [...] and importance of staying active and exercise [facility] 250 DO Work Phone: Discharge summary Author Wiley Beal [facility] January 22, 2022 4:43pm Note Date/Time January 21, 2022 1: 46pm [facility] [address] [place], [place] [id number] Discharge Summary Signed Patient: Steven Harding MR#: [id number] : 1940 Acct:[id number] Age/Sex: 81 / F Adm Date: 2 Loc: Room: [address] [place] [address]: Wiley Beal MD Copies to: [...] was anticoagulated with heparin, taken to the Toxicology Supervisor. On January 19 she was found to [...] % (Auto) 74.5, Lymph % (Auto) 14.2, [place] % (Auto) 6.7, Eos % (Auto) 4.2, Baso % (Auto) 0.4, Neut # (Auto) 6.3, Lymph # (Auto) 1.2, [place] # (Auto) 0.6, Eos# (Auto) 0.4, Baso [...] You are scheduled for STAGED ANGIOPLASTY at [facility] [place] on 02/03/2022 at 1:00pm with Dr Hooks; please check in at 11:00am- follow instructions You are scheduled for COVID testing at [facility] [place] on 02/01/2022 at 10:00am for upcoming [...] doctor or pharmacist, without first calling the furnace charger who implanted the stent. If you require [...] weight lifting, stair steppers, etc. until the furnace charger approves these activities. Check with the furnace charger on your first follow-up visit. CALL YOUR PHYSICIAN at [phone]: -If bleeding should occur from the catheter insertion site- apply pressure to the site then immediately call us. -Report any fever, redness, drainage, increased swelling, or firmness at the catheter insertion site. Some bruising or slight swelling may be present at thetime of discharge. -Should arm or leg become cold, numb, white, or blue, contact the furnace charger immediately. -IF you should experience episodes of [...] is recommended. Please call Central Scheduling at [phone] to schedule your appointment.] The attending furnace charger or [facility] nurse clinician should provide you with specific instructions regarding activity, diet, medications, and further follow up for you. Follow the medication instructions provided on your discharge. If the dosages and instructions on this sheet differ from the dosage and instructions on the bottle, follow the instructions on the bottle. [facility] is not responsible for incorrect prescription information [...] tablet 100 mg PO DAILY thyroid (pork) [STAFF ANTISUBMARINE OFFICER Thyroid] 60 mg tablet 60 mg PO DAILY Label Comments: TAKE 1 TABLET BY MOUTH TWICE DAILY ON AN EMPTY STOMACH Other Ambulatory Orders: Basic Metabolic Panel (Routine) Timeframe: 20220125 Location: Determined by Patient Ordered By: Diony Hooks Follow Up: [facility] [Outside] - 01/27/22 4:00 pm Documented By: Wiley Beal MD 01/21/22 1342 Signed By: <Electronically signed by Wiley Beal MD> 01/22/22 1643 [facility] Work Phone: Discharge summary Author Rufus Ricks [facility] March 14, 2023 3:31pm Note Date/Time March 14, 2023 3: 31pm [facility] [address] [place] [address] Discharge Summary Signed Patient: Steven Harding MR#: [id number] : 1940 Acct:[id number] Age/Sex: 83 / F Adm Date: 3 Loc: Room: [address] [place] [address]: Rufus Ricks DO Copies to: [...] DAILY Qty: 30 0RF Held thyroid (pork) [STAFF ANTISUBMARINE OFFICER Thyroid] 60 mg tablet 60 mg PO [...] signed by Rufus Ricks DO> 03/14/23 1531 [facility] Work Phone: evaluation note* Diagnosis Onset Date Resolution Status ACS (acute coronary syndrome) acute Hypertension acute Hypothyroidism acute NSTEMI (non-ST elevated myocardial infarction) acute Peripheral vascular disease acute Prediabetes acute [facility] Work Phone: evaluation note* Diagnosis Onset Date Resolution Status Dizziness acute [facility] Work Phone: evaluation note* Diagnosis Onset Date Resolution Status Acute hyponatremia acute Dizziness acute Pre-syncope acute [facility] Work Phone: evaluation note* Diagnosis Onset Date Resolution Status Acute hyponatremia acute Dizziness acute Pre-syncope acute Acute hyponatremia acute CAD (coronary artery disease) acute Hypertensive urgency acute Hypothyroidism acute [facility] Work Phone: evaluation note* Diagnosis Coronary artery disease involving ekuk coronary artery of ekuk heart without angina pectoris- Primary Status post percutaneous transluminal coronary angioplasty Postsurgical percutaneous transluminal coronary angioplasty status Mixed hyperlipidemia Hypertension, benign Essential hypertension, benign Dyspnea on exertion Other dyspnea and respiratory abnormality BMI 27.0-27.9,adult Former smoker Personal history of tobacco use, presenting hazards to health documented in this encounter [facility] Work Phone: Evaluation note* Diagnosis Status post percutaneous transluminal coronary angioplasty- Primary Postsurgical percutaneous transluminal coronary angioplasty status Coronary artery disease involving ekuk coronary artery of ekuk heart without angina pectoris Mixed hyperlipidemia Hypertension, benign Essential hypertension, benign Body mass index (BMI) 29.0-29.9, adult Dyspnea on exertion Other dyspnea and respiratory abnormality Former smoker Personal history of tobacco use, presenting hazards to health documented in this encounter [facility] Work Phone: Evaluation note* Diagnosis Acute right-sided low back pain with right-sided sciatica Right hip pain Pain in joint, pelvic region and thigh Pain of right sacroiliac joint Overweight (BMI 25.0-29.9) Overweight documented in this encounter [facility] HealthcareEvaluation note* Diagnosis Acute right-sided low back pain with right-sided sciatica documented in this encounter [facility] HealthcareEvaluation note* Diagnosis Benign essential hypertension (CMS/HCC) Essential hypertension, benign Hypothyroidism, unspecified type (CMS/HCC) documented in this encounter [facility] HealthcareEvaluation note* Diagnosis Acquired hypothyroidism (CMS/HCC)- Primary Unspecified hypothyroidism Chronic fatigue Other malaise and fatigue Benign essential hypertension (CMS/HCC) Essential hypertension, benign Chronic eczema Contact dermatitis and other eczema, due to unspecified cause Polypharmacy Issue of repeat prescriptions Obesity (BMI 30.0-34.9) documented in this encounter [facility] HealthcareEvaluation note* Diagnosis Impaired glucose tolerance Impaired glucose tolerance test documented in this encounter [facility] Author Sima Hdz [facility] March 12, 2023 7:49pm Note Date/Time March 12, 2023 7: 50pm [facility] [address] [place] [address] Hospitalist H&P Signed Patient: Steven Harding MR#: [id number] : 1940 Acct:[id number] Age/Sex: 83 / F Adm Date: 3 Loc: Room: [address] [place] [address] Type: ADM IN Attending Dr: Sima Hdz [...] are negative unless noted below or in [facility] Medical History Aneurysm Aortic. Being monitored. Per pt found at [facility] during last visit there in January of [...] Confirmed 03/05/23] thyroid (pork) 60 mg tablet (STAFF ANTISUBMARINE OFFICER Thyroid) 60 mg PO BID 01/18/22 [History [...] % (Auto) 13.2 % (.) 03/12/23 14:45 [place] % (Auto) 5.1 % (.) 03/12/23 14:45 Eos % (Auto) 2.0 % (.) 03/12/23 14:45 Baso % (Auto) 0.4 % (.) 03/12/23 14:45 Nucleat RBC Rel Count 0.0 /100 WBC (0-0.5) 03/12/23 14:45 Neut # (Auto) 7.0 x10E3/uL (1.8-7.7) 03/12/23 14:45 Lymph # (Auto) 1.2 x10E3/uL (1.00-4.8) 03/12/23 14:45 [place] # (Auto) 0.5 x10E3/uL (0.0-0.8) 03/12/23 14:45 [...] pH 7.5 (5.0-9.0) 03/12/23 15:55 Ur Specific [place] 1.010 (1.001-1.030) 03/12/23 15:55 Urine Protein Negative [...] Hyponatremia of 128. TSH was suppressed on [employer] Thyroid and has been checked twice with [...] <Electronically signed by Sima Hdz MD> 03/12/231948 [facility] Work Phone: Hisqcin general Narrative - Reported* Type Description Date Medical History Hypertension Medical History Insulin Resistant Surgical History teeth extraction upper Surgical History skin cancer removal 2018 Hospitalization History see above [employer] Other History of Present illness Narrative* The [...] the patient complains of medication side effects. [facility] 250 DO Work Phone: History of Present [...] medication regimen. She denies medication side effects. [facility] 600 DO Work Phone: History of Present [...] her back in 6 months and follow-up [facility] 250 DO Work Phone: [facility] Work [facility]: [facility] Progress note Author Wiley Beal [facility] January 21, 2022 1:42pm Note Date/Time January 21, 2022 1: 42pm [facility] [address] [place] [address] Hospitalist Progress Note Signed Patient: Steven Harding MR#: [id number] : 1940 Acct:[id number] Age/Sex: 81 / F Adm Date: 2 Loc: Room: [address] [place] [address] Type: ADM IN Attending Dr: Wiley Beal [...] of care and confirmed it with the resident/student/STAFF ANTISUBMARINE OFFICER. Patient was seen and examined at bedside [...] Insuln.Pen SUBCUT 01/19/23 07:59 Not Given TID.WM.HS [facility] Protocol Losartan Potassium 100 mg 01/18/22 23:10 01/21/22 08:42 Losartan 50 Mg Tablet PO 01/18/23 23:09 100 mg DAILY [facility] Administration Metoprolol Tartrate 25 mg 01/18/22 23:15 01/21/22 08:42 Metoprolol Tartrate 25 Mg Tablet PO 01/18/23 23:14 25 mg BID [facility] Administration Miscellaneous Information 1 each 01/20/22 09:05 Consult To Pharmacy MISCELLANE 01/20/23 09:04 .PHACONSULT PRN ZZ.Pharmacy Consult Protocol Morphine Sulfate 1 mg 01/18/22 22:38 Morphine Sulfate 2 Mg/Ml Vial IV-PUSH Q4H PRN Pain Scale 7 - 10 Nifedipine 60 mg 01/19/22 11:30 01/21/22 08:41 Nifedipine Er.24hr 60 Mg Tab.Er.24 PO 01/19/23 11:29 60 mg DAILY [facility] Administration Nitroglycerin 0.4 mg 01/20/22 13:52 Nitroglycerin 0.4 Mg Tab.Subl SUBLINGUAL 01/20/23 13:51 Q5M PRN Chest Pain Ondansetron HCl 4 mg 01/18/22 22:38 Ondansetron 4 Mg/2 Ml Vial IV-PUSH 01/18/23 22:37 Q6H PRN Nausea And Vomiting Oxybutynin Chloride 5 mg 01/19/22 12:00 01/21/22 08:42 Oxybutynin Chloride 5 Mg Tablet PO 01/19/23 11:59 5 mg BID [facility] Administration Oxycodone/Acetaminophen 1 tab 01/18/22 22:38 01/20/22 [...] signed by Wiley Beal MD> 01/21/22 1342 [facility] Work Phone: Reason for referral (narrative)* Consultation (Routine) - Authorized Specialty Diagnoses / Procedures Referred By Contac t Referred To Contact Cardiology Diagnoses Coronary artery disease involving ekuk coronary artery of ekuk heart without angina pectoris Procedures Follow Up In Cardiology Karli Dougherty MD 703 [facility] 2, [place] [address] [place] [id number] Karli Dougherty MD 703 [facility], [place] [address] [place] [address] Referral ID Status Reason Start Date Expiration Date V isits Requested Visits Authorized [id number] Authorized 08/31/2023 08/30/2024 1 1 [facility] Work Phone: Chief Complaint and [...] Documents on File Type Date Recorded 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 * Patient was recently hospitalized at [facility]. The patient was seen in Cardiology consult with subsequent cardiovascular management by [facility]. Hospitalization records have been reviewed. * Reason for Cardiology Consultation: ACS * Consulting Multi Punch Operator: Dr. Dougherty * Cardiovascular testing: Echo, cath with subsequent PCI * Changes to cardiovascular medical regimen at time of discharge: ASA, brilinta, lipitor lopressor, aldactone * Discharge disposition: Home * Reports admit at [place] d/t 'kidney pain and being dehydrated'. Spironolactone [...] tomorrow * 3. Begin cardiac rehab at [place] * 4. Lipid profile in 2 months (new statin initiation) * 5. Keep scheduled f/u in 6 weeks to reassess * 6. Obtain CT from [place] to verify surveillance testing. * 7. RN [...] months Specialty Diagnoses / Procedures Referred By Contrae t Referred To Contact Cardiology Diagnoses Coronary artery disease involving ekuk coronary artery of ekuk heart without angina pectoris Procedures Follow Up In Cardiology Karli Dougherty MD [address] [facility] 2, [address] [address] Phone: tel: fax: Karli Dougherty MD [address], [address] [address] Phone: tel: fax: Referral ID Status Reason Start Date Expiration Date V isits Requested Visits Authorized [id number] Authorized 08/31/2023 08/30/2024 1 1 Reason Comments Back Pain Hip Pain Reason Comments Med Refill Reason Comments Hypothyroidism Care Teams (unrecognized sec tion and content) [...] MD Admit Provider, Attending Provi mireille Active Health And Safety Coordinator Relationship Specialty Start Date End Date Priyanka Puentes MD [address] [facility] [place] [address] (Fax) PCP - ACO Reach 11/03/22 Priyanka Puentes MD [address] [place] [address] PCP - General Family Medicine 12/21/22 Karli Dougherty MD [address] [address] Referring Physician Cardiology 07/20/23 Health And Safety Coordinator Relationship Specialty Start Date End Date Priyanka Puentes MD [address] [place] [id number] PCP - General 06/12/99 Health And Safety Coordinator Relationship Specialty Start Date End Date Priyanka Puentes MD [address] [place] [phone] PCP - General 06/12/99 Health And Safety Coordinator Relationship Specialty Start Date End Date Priyanka Puentes MD [address] [place] [address] (Fax) PCP - ACO Reach 11/03/22 Priyanka Puentes MD [address] [place] [address] (Fax) PCP - General Family Medicine 12/21/22 Karli Dougherty MD [address] [address] Referring Physician Cardiology 07/20/23 Health And Safety Coordinator Relationship Specialty Start Date End Date Priyanka Puentes MD [address] [place] [address] (Fax) PCP - ACO Reach 11/03/22 Priyanka Puentes MD [address] [place] [address] (Fax) PCP - General Family Medicine 12/21/22 Karli Dougherty MD [address] [place] [address] Referring Physician Cardiology 07/20/23 Health And Safety Coordinator Relationship Specialty Start Date End Date Priyanka Puentes MD [address] [place] [address] (Fax) PCP - ACO Reach 11/03/22 Priyanka Puentes MD [address] [place] [address] (Fax) PCP - General Family Medicine 12/21/22 Karli Dougherty MD [address] [place] [address] Referring Physician Cardiology 07/20/23 Health And Safety Coordinator Relationship Specialty Start Date End Date Priyanka Puentes MD [address] [place] [address] (Fax) PCP - ACO Reach 11/03/22 Priyanka Puentes MD [address] [place] [address] (Fax) PCP - General Family Medicine 12/21/22 Karli Dougherty MD [address] [place] [address] Referring Physician Cardiology 07/20/23 Health And Safety Coordinator Relationship Specialty Start Date End Date Priyanka Puentes MD [address] [place] [address] (Fax) PCP - ACO Reach 11/03/22 Priyanka Puentes MD [address] [place] [address] (Fax) PCP - General Family Medicine 12/21/22 Karli Dougherty MD [address] [place] [address] Referring Physician Cardiology 07/20/23 Health And Safety Coordinator Relationship Specialty Start Date End Date Priyanka Puentes MD [address] [address] (Fax) PCP - ACO Reach 11/03/22 Priyanka Puentes MD [address] [address] (Fax) PCP - General Family Medicine 12/21/22 Karli Dougherty MD [address] [place] [address] Referring Physician Cardiology 07/20/23 Health And Safety Coordinator Relationship Specialty Start Date End Date Priyanka Puentes MD [address] [place] [address] (Fax) PCP - ACO Reach 11/03/22 Priyanka Puentes MD [address] [place] [address] (Fax) PCP - General Family Medicine 12/21/22 Karli Dougherty MD [address] [place] [address] Referring Physician Cardiology 07/20/23 Health And Safety Coordinator Relationship Specialty Start Date End Date Priyanka Puentes MD [address] [place] [address] (Fax) PCP - ACO Reach 11/03/22 Priyanka Puentes MD [address] [place] [address] (Fax) PCP - General Family Medicine 12/21/22 Karli Dougherty MD [address] [place] [address] Referring Physician Cardiology 07/20/23 Health And Safety Coordinator Relationship Specialty Start Date End Date Priyanka Puentes MD [address] [place] [address] (Fax) PCP - ACO Reach 11/03/22 Priyanka Puentes MD [address] [place] [address] (Fax) PCP - General Family Medicine 12/21/22 Karli Dougherty MD [address] [place] [address] Referring Physician Cardiology 07/20/23 Health And Safety Coordinator Relationship Specialty Start Date End Date Priyanka Puentes MD [address] [place] [address] (Fax) PCP - ACO Reach 11/03/22 Priyanka Puentes MD [address] [facility] [address] [place] [address] PCP - General Family Medicine 12/21/22 Karli Dougherty MD [address] [address] Referring Physician Cardiology 07/20/23 INFORMATION SOURCE (unrecogn ized section and content) DATE CREATED AUTHOR 10/18/2022 [facility] DATE CREATED AUTHOR AUTHOR'S ORGANIZ ATION 02/18/2023 [employer] DATE CREATED AUTHOR AUTHOR'S ORGANIZ ATION 03/15/2023 [facility] DATE CREATED AUTHOR AUTHOR'S ORGANIZ ATION 03/18/[address] [facility] DATE CREATED AUTHOR AUTHOR'S ORGANIZ ATION 05/11/2024 [facility] DATE CREATED AUTHOR AUTHOR'S ORGANIZ ATION 08/03/2024 [facility] EPIC DATE CREATED AUTHOR AUTHOR'S ORGANIZ ATION 08/26/2024 [facility] Goals (unrecognized section and content) Goals may [...] BE BASED ON THE PRIMARY CLINICAL RECORDS. [employer] provides no warranty or guarantee of the accuracy or completeness of information in this document.
--- NOTE | 2024-08-29 10:40 | PM.CN ---
Consult Note: HPI Data of Consult Patient: known to practice within the last 3 years Requesting Physician: Jeana Slater NP Primary Care Provider: PRIYANKA PUENTES Consult Narrative Reason for consult: f/u Narrative: Haylee Harding a pleasant 84 year old female presents for evaluation of chronic back and hip pain. Pt has failed to benefit from conservative therapy and PT greater than 6 weeks. longstanding hx of DDD and right hip oa. recently underwent right L3/4 L4/5 TFESI and right hip injection with >50% improvement ongoing. pain 0/10 increasing to 2/10 with sleep. MASOUD 10%. utilizes otc pain medication with benefit. cc:: CC: Jeana Slater NP Review of Systems ROS Status of ROS 10 or more systems reviewed and unremarkable except as noted in history and below Musculoskeletal Denies: back pain or joint pain PFSH PFSH Medical History (Updated 07/22/24 @ 14:58 by Pascale Becker) Osteoarthritis ?M19.90 - Unspecified osteoarthritis, unspecified site (ICD-10) History of skin cancer ?Z85.828 - Personal history of other malignant neoplasm of skin (ICD-10) Wears dentures ?Z97.2 - Presence of dental prosthetic device (complete) (partial) (ICD-10) Hearing deficit ?H91.90 - Unspecified hearing loss, unspecified ear (ICD-10) History of hypothyroidism ?Z86.39 - Personal history of other endocrine, nutritional and metabolic disease (ICD-10) Insulin resistance ?E88.819 - Insulin resistance, unspecified (ICD-10) Former smoker, stopped smoking in distant past ?Z87.891 - Personal history of nicotine dependence (ICD-10) Asthma ?J45.909 - Unspecified asthma, uncomplicated (ICD-10) High blood cholesterol level ?E78.00 - Pure hypercholesterolemia, unspecified (ICD-10) High blood pressure ?I10 - Essential (primary) hypertension (ICD-10) History of heart attack ?I25.2 - Old myocardial infarction (ICD-10) Surgical History History of tonsillectomy and adenoidectomy ?Z90.89 - Acquired absence of other organs (ICD-10) History of lymph node excision ?Z98.890 - Other specified postprocedural states (ICD-10) S/P pilonidal cyst excision ?Z98.890 - Other specified postprocedural states (ICD-10) History of hysterectomy ?Z90.710 - Acquired absence of both cervix and uterus (ICD-10) H/O heart artery stent ?Z95.5 - Presence of coronary angioplasty implant and graft (ICD-10) Meds Home Medications and Allergies Home Medications ?Medication ?Instructions ?Recorded ?Confirmed ?Type atorvastatin 80 mg tablet 80 mg PO DAILY 01/14/23 08/19/24 History clopidogrel 75 mg tablet 75 mg PO DAILY 01/14/23 08/19/24 History losartan 100 mg tablet 100 mg PO DAILY 01/14/23 08/05/24 History metformin 1,000 mg tablet 1,000 mg PO BID 01/14/23 08/19/24 History metoprolol tartrate 25 mg tablet 25 mg PO BID 01/14/23 08/19/24 History oxybutynin chloride 5 mg tablet 5 mg PO BID 01/14/23 08/19/24 History amlodipine 5 mg tablet 5 mg PO DAILY 07/22/24 08/19/24 History levothyroxine 112 mcg capsule 112 mcg PO DAILY 07/22/24 08/19/24 History Allergies Allergy/AdvReac Type Severity Reaction Status Date / Time Histamine H2 Inhibitors Allergy Unknown Unknown Verified 08/19/24 10:35 Latex, Natural Rubber Allergy Unknown Rash Verified 08/19/24 10:35 perfume Allergy Unknown ASTHMA Verified 08/19/24 10:35 Exam Constitutional Documenting provider has reviewed patient's vital signs: yes Common normals: no apparent distress, oriented x3, healthy appearing, alert and well nourished General appearance: cooperative HENKY Common normals: normocephalic, hearing grossly normal bilaterally and moist oral mucous membranes Head and scalp: normocephalic Eye Common normals: PERRL Pupil: PERRL Neck & C-Spine Common normals: full ROM General: normal visual inspection Chest Common normals: inspection of chest normal Respiratory Common normals: normal respiratory effort, no retractions and no use of accessory muscles Back & Pelvis Lumbar spine/lower back: normal to inspection and lumbar ROM normal; no pain with ROM and no lumbar spinal tenderness Sacroiliac joints: SI joints normal Extremity Right lower extremity: hip joint Other: negative internal and external rotation no tenderness over right GTB Neuro Common normals: oriented x3, CN's II-XII intact bilaterally, moves all extremities, no focal motor deficits, no sensory deficits noted and deep tendon reflexes 2+ bilaterally Sensorium/orientation: alert Motor exam: strength 5/5 throughout and no movement abnormalities noted Psych Common normals: mental status grossly normal, thought process normal, cooperative, affect normal, speech normal and activity/motor behavior normal Speech: normal speech Thought process: normal thought process Results Additional Findings Additional findings: If on a controlled substance or opioids, I have checked an [place]ARRS report on this patient and there are no aberrancies noted in the prescribing history.??If on a controlled substance or opioid a drug screen was completed and reviewed within the last year, and if there has not been a drug screen completed we ordered one today to monitor higher risk, state monitored pain medication use. As part of providing excellent, safe, comprehensive care, the following was completed at our patient's visit: 1. A medication reconciliation and review to ensure accurate knowledge of current/active medications, including asking our patients to inform us about any juqb-hnu-kyhaljw medications or herbal remedies/nutritional supplements/alternative remedies. 2. A review to specifically ensure our patients have had annual screening for screening for depression, screening for tobacco use, and screening for unhealthy alcohol use. For concerning screenings had a discussion with the patient, provided patient education, and recommended follow-up with primary care provider when appropriate. If patient noted with a risk of falling, they received education on strength, gait, and balance training to prevent future risk of falling. Portions of this note may have been carried over from the previous visit and updated as appropriate. Please note this office utilizes paper charting in addition to the electronic medical record. A list of current medications, vitals, and PMH is available there as the clinical staff outside of myself do not have access to [employer] charting during the clinic day operations. As part of providing quality comprehensive care the current medications, vitals, and PMH were reviewed in the paper chart. Assessment and Plan Assessment and Plan (1) Osteoarthritis of right hip: Qualifiers: Osteoarthritis type: primary Qualified Code(s): M16.11 - Unilateral primary osteoarthritis, right hip (2) Lumbar stenosis with neurogenic claudication: Plan continue HEP as tolerated continue otc medications PRN f/u 3 months, sooner if needed
== END 2024-08-29 10:19 | disposition home or self-care (01) ==
LOC: PM 10:18
PROVIDERS: PCP Family Medicine; Visit Provider Nurse Practitioner
DX: M16.11 Unilateral primary osteoarthritis, right hip (principal); M48.062 Spinal stenosis, lumbar region with neurogenic claudication
CPT/HCPCS: G0463

== ENCOUNTER 2025-01-10 10:29 | Outpatient (OUT) | payer MEDICARE, OTHER, SELFPAY ==
--- OUTSIDE RECORDS SUMMARY | 2025-01-10 10:38 | XMS_ITS | Encounter Summary ---
Author Organization [facility] Address [address] [place] [address] Care Team Providers Care Garnett Feeder Name Role Phone Priyanka Puentes MD Unavailable [phone] Priyanka Puentes MD Primary Care Provider + [phone] Yassine Gerardo MD Unavailable [phone] Encounter Details Date Type Department Care Team (Late st Contact Info) Description 05/23/2024 Clinisync Result Encounter [facility] External Department Unsolicited Priyanka Puentes MD [address] [place] [address] Social History Tobacco Use Types Packs/Day Years Used Date Smoking Tobacco: Former Cigarettes Smokeless Tobacco: Never Comments:Last smoked : 1-5 y ears Alcohol Use Standard Drinks/Week Comments Not Currently 0 (1 standard drink = 0.6 oz pure alcohol) Caffeine intake: 3 cups decaf per day Humiliation, Afraid, Rape, and Kick questionnair e Answer Date Recorded Within the last year, have y ou been afraid of your partner or ex-partner? No 02/14/2023 Within the last year, have y ou been humiliated or emotionally abused in other ways by your partner or ex-partner? No Within the last year, have y ou been kicked, hit, slapped, or otherwise physically hurt by your partner or ex-partner? No 02/14/2023 Within the last year, have y ou been raped or forced to have any kind of sexual activity by your partner or ex-partner? No 02/14/2023 Social Connection and Isolat ion Panel [NHANES] Answer Date Recorded In a typical week, how many times do you talk on the phone with family, friends, or neighbors? More than three times a week 02/14/2023 How often do you get togethe r with friends or relatives? Three times a week 02/14/2023 How often do you attend chur ch or confucianism services? More than 4 times per year 02/14/2023 Do you belong to any clubs o r organizations such as congregational groups, unions, fraternal or athletic groups, or school groups? No 02/14/2023 How often do you attend meet ings of the clubs or organizations you belong to? Never 02/14/2023 Are you , , di vorced, , never , or living with a partner? 02/14/2023 AUDIT-C Answer Date Recorded Q1: How often do you have a drink containing alcohol? Never 02/14/2023 Q2: How many drinks containi ng alcohol do you have on a typical day when you are drinking? Patient does not drink Q3: How often do you have si x or more drinks on one occasion? Never 02/14/2023 Overall Financial Resource Strain (CARDIA) Answe r Date Recorded How hard is it for you to pa y for the very basics like food, housing, medical care, and heating? Not hard at all 02/14/2023 PHQ-2 Answer Date Recorded Patient Health Questionnaire-2 Score 0 08/08/2023 [facility] - Occupational Stress Questionnaire Answer Date Recorded Do you feel stress - tense, restless, nervous, or anxious, or unable to sleep at night because your mind is troubled all the time - these days? Not at all 02/14/2023 Exercise Vital Sign Answer Date Recorde d On average, how many days pe r week do you engage in moderate to strenuous exercise (like a brisk walk)? 2 days 02/14/2023 On average, how many minutes do you engage in exercise at this level? 20 min 02/14/2023 Hunger Vital Sign Answer Date Recorded Within the past 12 months, y ou worried that your food would run out before you got the money to buy more. Never true 02/15/20 23 Within the past 12 months, t he food you bought just didn't last and you didn't have money to get more. Never true 02/14/2023 PRAPARE - Transportation Answer Date Re corded In the past 12 months, has l ack of transportation kept you from medical appointments or from getting medications? No 10/2022 In the past 12 months, has l ack of transportation kept you from meetings, work, or from getting things needed for daily living? No 02/14/2023 Housing Stability Vital Sign Answer Marcos e Recorded In the last 12 months, was t here a time when you were not able to pay the mortgage or rent on time? No 02/14/2023 Number of Places Lived in the Last Year Not on f ile 02/14/2023 In the last 12 months, was t here a time when you did not have a steady place to sleep or slept in a assisted (including now)? No 02/14/2023 Comments No Sex and Gender Information Value Date Recorded Sex Assigned at Not on file Legal Sex Female 7:13 PM EDT Gender Identity Not on file Sexual Orientation Not on file Occupation Industry Job Start Date Job End Date Retired Not on file Not on file Not on file documented as of this encounter Plan of Treatment Not on file documented as of this encounter Procedures Procedure Name Priority Date/Time Associated Diagnosis Comments XR LUMBAR SPINE MIN 4V 05/23/2024 4:29 AM EST documented in this encounter Results * XR LUMBAR SPINE MIN 4V (05/23/2024 4:29 AM EST) Anatomical Region Laterality Modality Other 05/23/2024 4:29 AM EST Narrative 05/23/2024 4:32 [place] [address] XRay Report Signed Patient: STEVEN HARDING MR#: [id number] : 1940 Acct:[id number] Age/Sex: 84 / F ADM Date: 05/21/24 Loc: RAD Attending Dr: PRIYANKA PUENTES Ordering Physician: PRIYANKA PUENTES Date of Service: 05/21/24 Procedure(s): XR lumbar spine min 4V Accession Number(s): [id number] cc: PRIYANKA PUENTES [place] [id number] Patient Name: STEVEN HARDING MRN: [id number] date: 1940 Sex: F Assigned Patient Location: RAD Current Patient Location: LAB Accession/Order Number: [id number] Exam Date: 05/21/2024 11:08 Report Date: 05/23/2024 04:29 At the request of: PRIYANKA PUENTES Procedure: XR lumbar spine min 4V EXAMINATION: XR lumbar spine min 4V HISTORY: Acute Right Sided Low Back Pain With Right Sided Sciatica COMPARISON: CT abdomen pelvis 01/27/2022 FINDINGS: BONES: Multilevel mild-moderate degenerative facet arthropathy. No fracture, spondylolisthesis, or bone lesion. DISC SPACES: No significant disc height narrowing, subluxation, or endplate abnormality. 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 Right common iliac artery endovascular stent. OTHER: Negative. XR/XR lumbar spine min 4V IMPRESSION: 1. Multilevel mild degenerative facet arthropathy. No appreciable acute abnormality or significant change. 2. 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 Allowing for differences in technique, this appears to have increased in size since prior study. Electronically authenticated by: WYATT CHRISTIANSON Date: 05/23/2024 04:29 Dictated By: Wyatt Christianson M.D. Signed By: 05/23/24 0432 DD/ 0429 TD/TT: Marketing Sales Supervisor: Procedure Note Radiology, Radiologist, MD - 05/23/2024 [place] [address] XRay Report Signed Patient: STEVEN HARDING YMR#: [id number] : 1940cct:[id number] Age/Sex: 84 / FADM Date: 05/21/24 Loc: RAD Attending Dr: PRIYANKA PUENTES Ordering Physician: PRIYANKA PUENTES Date of Service: 05/21/24 Procedure(s): XR lumbar spine min 4V Accession Number(s): [id number] cc: PRIYANKA PUENTES [address] [address] Patient Name: STEVEN HARDING MRN: [id number] date: 1940 Sex: F Assigned Patient Location: [facility] Current Patient Location: LAB Accession/Order Number: [id number] Exam Date: 05/21/2024 11:08 Report Date: 05/23/2024 04:29 At the request of: PRIYANKA PUENTES Procedure: XR lumbar spine min 4V EXAMINATION: XR lumbar spine min 4V HISTORY: Acute Right Sided Low Back Pain With Right Sided Sciatica COMPARISON: CT abdomen pelvis 01/27/2022 FINDINGS: BONES: Multilevel mild-moderate degenerative facet arthropathy. Nofracture, spondylolisthesis, or bone lesion. DISC SPACES: No significant disc height narrowing, subluxation, orendplate abnormality. PARASPINOUS: Fusiform aneurysmal dilation of distal abdominal aorta, 3.5cm. Right common iliac artery endovascular stent. OTHER: Negative. XR/XR lumbar spine min 4V IMPRESSION: 1. Multilevel mild degenerative facet arthropathy. No appreciable acute abnormality or significant change. 2. 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 Electronically authenticated by: WYATT CHRISTIANSON Date: 05/23/2024 04:29 Dictated By: Wyatt Christianson M.D. Signed By:05/23/24 0432 DD/ 0429 TD/TT: Marketing Sales Supervisor: Priyanka Puentes MD [facility] Final Resu lt documented in this encounter Visit Diagnoses Not on filedocumented in this encounter Additional Health Concerns Assessment Noted Time PHQ-9 Depression Total Score: 1 08/30/19 24 10:00 AM EDT documented as of this encounter Care Teams Garnett Feeder Relationship Specialty Start Date End Date Priyanka Puentes MD 112 [facility] 100 [place] [address] PCP - ACO Reach 11/03/22 Priyanka Puentes MD 112 [facility] 100 [place] [address] PCP - General Family Medicine 12/21/22 Yassine Gerardo MD 703 [facility] 2, [facility] 250 [place] [address] Referring Physician Cardiology 07/20/23 documented as of this encounter
--- OUTSIDE RECORDS SUMMARY | 2025-01-10 10:38 | XMS_ITS | Encounter Summary ---
Author Organization [facility] Address [address] [place] [address] Care Team Providers Care Internet Merchant Name Role Phone Johann Us MD Unavailable [phone] Johann Us MD Primary Care Provider + [phone] Yassine Gerardo MD Unavailable [phone] Encounter Details Date Type Department Care Team (Late st Contact Info) Description 06/13/2024 Orders Only [facility] [place] 100 Family Medicine [address] [place] [address] [place] [address] Johann Us MD [address] [place] [address] Social History Tobacco Use Types Packs/Day Years [...] 02/14/2023 How often do you attend chur or hoahaoism services? More than 4 times per year 02/14/2023 Do you belong to any clubs o r organizations such as hinduism groups, unions, fraternal or athletic groups, or [...] Recorded Patient Health Questionnaire-2 Score 0 08/08/2023 [facility]ational [facility] Questionnaire Answer Date Recorded [...] place to sleep or slept in a fdc (including now)? No 02/14/2023 Comments No Sex [...] on file documented as of this encounter Visit Diagnoses Not on filedocumented in this encounter Additional Health Concerns Assessment Noted Time PHQ-9 Depression Total Score: 1 08/30/19 24 10:00 AM EDT documented as of this encounter Care Teams Internet Merchant Relationship Specialty Start Date End Date Johann Us MD [address] [address] PCP - ACO Reach 11/03/22 Johann Us MD [address] [address] PCP - General Family Medicine 12/21/22 Yassine Gerardo MD 703 [facility] 2, [address] [place] [address] Referring Physician Cardiology 07/20/23 documented as of this encounter
--- OUTSIDE RECORDS SUMMARY | 2025-01-10 10:38 | XMS_ITS | Encounter Summary ---
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 More than 4 times per year 02/14/2023 Do you belong to any clubs o r organizations such as congregation groups, unions, fraternal or athletic groups, or [...] Recorded Patient Health Questionnaire-2 Score 0 08/08/2023 [facility] - Occupational Stress Questionnaire Answer Date Recorded [...] money to buy more. 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
--- OUTSIDE RECORDS SUMMARY | 2025-01-10 10:39 | XMS_ITS | Encounter Summary ---
Author Organization [facility] Address [address] [place] [address] Care Team Providers Care Steel Barrel Reamer Name Role Phone Johann Us MD Unavailable [phone] Johann Us MD Primary Care Provider + [phone] Yassine Gerardo MD Unavailable [phone] Encounter Details Date Type Department Care Team (Late st Contact Info) Description 02/12/2023 Abstract [facility] [address] [facility] 170 [place] [address] Saran Garcia, PT 112 [facility] 170 [place] [address] Social History Tobacco Use Types Packs/Day Years Used Date Smoking Tobacco: Former Cigarettes Alcohol Use Standard Drinks/Week Comments Not Currently [...] often do you attend chur ch or worship services? More than 4 times per year 02/14/2023 Do you belong to any clubs o r organizations such as rastafarian groups, unions, fraternal or athletic groups, or [...] Date Recorded Patient Health Questionnaire-2 Score 0 01/19/2023 [facility] Occupational Stress Questionnaire Answer Date Recorded [...] place to sleep or slept in a mcfp (including now)? No 02/14/2023 Comments No Sex and Gender Information Value Date Recorded Sex Assigned at Not on file Legal Sex Female 7:13 PM EDT Gender Identity Not on file Sexual Orientation Not on file documented as of this encounter Functional Status * Audit-C Score Answer Date of Assessment Author 0 02/14/2023 10:[address] Yun farrell Ipad [address] * Q1: How often do you have a drink containing alcohol? Answer Date of Assessment Author Never 02/14/2023 10:[address] Yun farrell Ipad 2 * Q2: How many drinks containing alcohol do you have on a typical day when you are drinking? Answer Date of Assessment Author Patient does not drink 02/14/2023 10:18 AM EDT Pauline Us Ipad 2 * Q3: How often do you have six or more drinks on one occasion? Answer Date of Assessment Author Never 02/14/2023 10:[address] Yun farrell Ipad 2 documented as of this encounter Plan of Treatment Not on file documented as of this encounter Visit Diagnoses Not on filedocumented in this encounter Care Teams Steel Barrel Reamer Relationship Specialty Start Date End Date Johann Us MD [address] [place] [address] PCP - ACO Reach 11/03/22 Johann Us MD 112 [facility] 100 [place] [address] PCP - General Family Medicine 12/21/22 Yassine Gerardo MD 703 [facility] 2, [facility] 250 [place] [address] Referring Physician Cardiology 07/20/23 documented as of this encounter
--- OUTSIDE RECORDS SUMMARY | 2025-01-10 10:39 | XMS_ITS | Encounter Summary ---
Author Organization [facility] Address [address] [place] [address] Care Team Providers Care Acls Specialist Name Role Phone Johann Us MD Unavailable [phone] Johann Us MD Primary Care Provider + [phone] Yassine Gerardo MD Unavailable [phone] Encounter Details Date Type Department Care Team (Late st Contact Info) Description 12/11/2023 Orders Only [facility] [place] 100 Family Medicine [address] [place] [address] [place] [address] Johann Us MD [address] [place] [address] Social History Tobacco Use Types Packs/Day Years [...] How often do you attend chur or anglican services? More than 4 times per year 02/14/2023 Do you belong to any clubs o r organizations such as scientologist groups, unions, fraternal or athletic groups, or [...] Recorded Patient Health Questionnaire-2 Score 0 08/08/2023 [facility]ational Stress Questionnaire Answer Date Recorded [...] place to sleep or slept in a long term (including now)? No 02/14/2023 Comments No Sex [...] documented as of this encounter Care Teams Acls Specialist Relationship Specialty Start Date End Date Johann Us MD [address] [address] PCP - ACO Reach 11/03/22 Johann Us MD [address] [address] PCP - General Family Medicine 12/21/22 Yassine Gerardo MD 703 [facility] 2, [address] [place] [address] Referring Physician Cardiology 07/20/23 documented as of this encounter
--- OUTSIDE RECORDS SUMMARY | 2025-01-10 10:39 | XMS_ITS | Encounter Summary ---
Author Organization [facility] Address [address] [place] [address] Care Team Providers Care Medical Office Receptionist Assistant Name Role Phone Johann Us MD Unavailable [phone] Johann Us MD Primary Care Provider + [phone] Yassine Gerardo MD Unavailable [phone] Encounter Details Date Type Department Care Team (Late st Contact Info) Description 03/07/2023 Abstract [facility] [place] 521 Family Medicine [address] [place] [address] [place] [address] [place], [place] [id number] Social History Tobacco Use Types Packs/Day Years Used Date Smoking Tobacco: Former Cigarettes Comments:Last smoked : 1-5 y ears Alcohol [...] How often do you attend chur or shinto services? More than 4 times per year 02/14/2023 Do you belong to any clubs o r organizations such as jain groups, unions, fraternal or athletic groups, or [...] Recorded Patient Health Questionnaire-2 Score 0 01/19/2023 [facility] [place] [facility] - Occupational Stress Questionnaire Answer Date [...] place to sleep or slept in a senior living (including now)? No 02/14/2023 Comments No Sex [...] on filedocumented in this encounter Care Teams Medical Office Receptionist Assistant Relationship Specialty Start Date End Date Johann Us MD [address] [place] [address] PCP - ACO Reach 11/03/22 Johann Us MD [address] [place] [address] PCP - General Family Medicine 12/21/22 Yassine Gerardo MD 703 [facility] 2, [address] [place] [address] Referring Physician Cardiology 07/20/23 documented as of this encounter
--- OUTSIDE RECORDS SUMMARY | 2025-01-10 10:39 | XMS_ITS | Encounter Summary ---
Author Organization [facility] Address [address] [place] [address] Care Team Providers Care Wood Sash And Frame Carpenter Name Role Phone Johann Us MD Unavailable [phone] Johann Us MD Primary Care Provider + [phone] Yassine Gerardo MD Unavailable [phone] Encounter Details Date Type Department Care Team (Late st Contact Info) Description 03/13/2023 Abstract [facility] [place] 521 Family Medicine [address] [place] [address] Sima Hdz MD [address] [place], [place] [id number] Social History Tobacco Use Types Packs/Day Years [...] How often do you attend chur or evangelical services? More than 4 times per year 02/14/2023 Do you belong to any clubs o r organizations such as uatsdin groups, unions, fraternal or athletic groups, or [...] Recorded Patient Health Questionnaire-2 Score 0 01/19/2023 [facility] Occupational Stress Questionnaire Answer Date [...] the money to buy more. Never true 09/05/20 23 Within the past 12 months, t [...] place to sleep or slept in a mcc (including now)? No 02/14/2023 Comments No Sex [...] on filedocumented in this encounter Care Teams Wood Sash And Frame Carpenter Relationship Specialty Start Date End Date Johann Us MD [address] [address] PCP - ACO Reach 11/03/22 Johann Us MD [address] [place] [address] PCP - General Family Medicine 12/21/22 Yassine Gerardo MD 703 [facility] 2, [address] [place] [address] Referring Physician Cardiology 07/20/23 documented as of this encounter
--- OUTSIDE RECORDS SUMMARY | 2025-01-10 10:39 | XMS_ITS | Encounter Summary ---
Author Organization [facility] Address [address] [place] [address] Care Team Providers Care Religious Ritual Slaughterer Name Role Phone Johann Us MD Unavailable [phone] Johann Us MD Primary Care Provider + [phone] Yassine Gerardo MD Unavailable [phone] Encounter Details Date Type Department Care Team (Late st Contact Info) Description 03/23/2023 Orders Only [facility] [place] 521 Family Medicine [address] [facility] [place] [address] Johann Us MD 112 [facility] [address] [place] [address] (Fax) Elevated morning serum cortisol level (Primary Dx) Social History Tobacco Use Types Packs/Day Years [...] week 02/14/2023 How often do you attend [facility] or hindu services? More than 4 times per year 02/14/2023 Do you belong to any clubs o r organizations such as roman catholic groups, unions, fraternal or athletic groups, or [...] Recorded Patient Health Questionnaire-2 Score 0 01/19/2023 [facility] - Occupational Stress Questionnaire Answer Date [...] place to sleep or slept in a long-term (including now)? No 02/14/2023 Comments No Sex [...] as of this encounter Visit Diagnoses Diagnosis Elevated morning serum cortisol level- Primary documented in this encounter Care Teams Religious Ritual Slaughterer Relationship Specialty Start Date End Date Johann Us MD [address] [facility] 100 [place] [address] (Fax) PCP - ACO Reach 11/03/22 Johann Us MD [address] [place] [address] (Fax) PCP - General Family Medicine 12/21/22 Yassine Gerardo MD [address] [place] [address] 2, [address] [place] [address] Referring Physician Cardiology 07/20/23 documented as of this encounter
--- OUTSIDE RECORDS SUMMARY | 2025-01-10 10:39 | XMS_ITS | Encounter Summary ---
Author Organization [facility] Address [address] [place] [address] Care Team Providers Care Fitness Coordinator Name Role Phone Johann Us MD Unavailable [phone] Johann Us MD Primary Care Provider + [phone] Yassine Gerardo MD Unavailable [phone] Encounter Details Date Type Department Care Team (Late st Contact Info) Description 03/15/2023 Abstract [facility] [place] 521 Family Medicine [address] [place] [address] [facility] Physician [address] [place] [address] Social History Tobacco Use Types Packs/Day Years [...] How often do you attend chur or jewish services? More than 4 times per year 02/14/2023 Do you belong to any clubs o r organizations such as restorationism groups, unions, fraternal or athletic groups, or [...] Recorded Patient Health Questionnaire-2 Score 0 01/19/2023 [facility] - Occupational Stress Questionnaire Answer Date [...] place to sleep or slept in a jail (including now)? No 02/14/2023 Comments No Sex [...] on filedocumented in this encounter Care Teams Fitness Coordinator Relationship Specialty Start Date End Date Johann Us MD [address] [place] [address] PCP - ACO Reach 11/03/22 Johann Us MD [address] [place] [address] PCP - General Family Medicine 12/21/22 Yassine Gerardo MD 703 [facility] 2, [address] [place] [address] Referring Physician Cardiology 07/20/23 documented as of this encounter
--- OUTSIDE RECORDS SUMMARY | 2025-01-10 10:39 | XMS_ITS | Encounter Summary ---
Author Organization [facility] Address [address] [place] [address] Phone Care Team Providers Care Research Contracts Supervisor Name Role Phone Johann Us MD Primary Care Provider Encounter Details Date Type Department Care Team (Late st Contact Info) Description 08/15/2022 Orders Only [facility] [address] [place] [address] Conversion, Onbase Social History Tobacco Use Types Packs/Day Years Used Date Smoking Tobacco: Never Assessed PHQ-2 Answer Date Recorded Patient Health Questionnaire-2 Score 3 02/15/2022 Comments Unknown Sex and Gender Information Value Date Recorded Sex Assigned at Not on file Legal Sex Female 10:24 PM EST Gender Identity Not on file Sexual Orientation Not on file documented as of this encounter Plan of Treatment Upcoming Encounters Date Type Department Care Team (Late st Contact Info) Description 08/20/2025 1:00 PM EDT Office Visit [place] [address] [facility] [address] [place] [address] Yassine Gerardo MD 7[address] [facility] 2, [address] [place], [place] [id number] Scheduled Orders Name Type Priority Associated Diagnoses Orde r Schedule OUTSIDE LAB SCAN Lab Ordered: 08/15/2022 documented as of this encounter Visit Diagnoses Not on filedocumented in this encounter Additional Health Concerns Assessment Noted Time PHQ-9 Depression Total Score: 10 022 2:39 PM EDT documented as of this encounter Care Teams Research Contracts Supervisor Relationship Specialty Start Date End Date Johann Us MD [address] [place] [address] PCP - General 06/12/99 documented as of this encounter
--- OUTSIDE RECORDS SUMMARY | 2025-01-10 10:39 | XMS_ITS | Encounter Summary ---
Author Organization [facility] Address [address] [place] [address] Care Team Providers Care Technology Risk Intern Name Role Phone Johann Us MD Unavailable [phone] Johann Us MD Primary Care Provider + [phone] Yassine Gerardo MD Unavailable [phone] Encounter Details Date Type Department Care Team (Late st Contact Info) Description 06/07/2023 Orders Only [facility] [place] [facility] [address] [facility] [place] [address] Johann Us MD [address] [place], [place] [address] (Fax) Hypothyroidism, unspecified type Social History Tobacco Use Types Packs/Day Years [...] How often do you attend chur or adventist services? More than 4 times per year 02/14/2023 Do you belong to any clubs o r organizations such as anglican groups, unions, fraternal or athletic groups, or [...] Recorded Patient Health Questionnaire-2 Score 0 01/19/2023 [facility] - Occupational Stress Questionnaire Answer Date [...] as of this encounter Visit Diagnoses Diagnosis Hypothyroidism, unspecified type documented in this encounter Care Teams Technology Risk Intern Relationship Specialty Start Date End Date Johann Us MD [address] [address] PCP - ACO Reach 11/03/22 Johann Us MD [address] [place] [address] PCP - General Family Medicine 12/21/22 Yassine Gerardo MD 703 [facility] 2, [address] [place] [address] Referring Physician Cardiology 07/20/23 documented as of this encounter
--- OUTSIDE RECORDS SUMMARY | 2025-01-10 10:39 | XMS_ITS | Encounter Summary ---
Author Organization [facility] Address [address] [place] [address] Care Team Providers Care Mechanical Design Engineer Name Role Phone Johann Us MD Unavailable [phone] Johann Us MD Primary Care Provider + [phone] Yassine Gerardo MD Unavailable [phone] Encounter Details Date Type Department Care Team (Late st Contact Info) Description 03/28/2023 Orders Only [facility] [place] 521 Family Medicine [address] [facility] [place] [address] Johann Us MD 112 [facility] [address] [place], [place] [phone] (Fax) Social History Tobacco Use Types Packs/Day Years [...] How often do you attend chur or sikhism services? More than 4 times per year 02/14/2023 Do you belong to any clubs o r organizations such as samaritan groups, unions, fraternal or athletic groups, or [...] Recorded Patient Health Questionnaire-2 Score 0 01/19/2023 [facility] Questionnaire Answer Date [...] place to sleep or slept in a nursing home (including now)? No 02/14/2023 Comments No Sex [...] Procedure Name Priority Date/Time Associated Diagnosis Comments DIABETIC RETINOPATHY SCREENING - OU - BOTH EYES Routine 03/28/2023 2:28 PM EDT documented in this encounter Results * Diabetic Retinopathy Screening - OU - Both Eyes (03/28/2023 2:28 PM EDT) Anatomical Region Laterality Modality Head Other Johann Us MD OPHTH PHOTOGRAPHY Final Resu lt documented in this encounter Visit Diagnoses Not on filedocumented in this encounter Care Teams Mechanical Design Engineer Relationship Specialty Start Date End Date Johann Us MD [address] [address] PCP - ACO Reach 11/03/22 Johann Us MD [address] [place] [address] [address] PCP - General Family Medicine 12/21/22 Yassine Gerardo MD 703 [facility] 2, [facility] [address] [place] [address] Referring Physician Cardiology 07/20/23 documented as of this encounter
--- OUTSIDE RECORDS SUMMARY | 2025-01-10 10:39 | XMS_ITS | Encounter Summary ---
Author Organization [facility] Address [address] [place] [address] Care Team Providers Care Care Process Manager Name Role Phone Johann Us MD Unavailable [phone] Johann Us MD Primary Care Provider + [phone] Yassine Gerardo MD Unavailable [phone] Encounter Details Date Type Department Care Team (Late st Contact Info) Description 03/13/2023 Abstract [facility] [place] 521 Family Medicine [address] [place] [address] Sima Hdz MD [address] [place], [place] [id number] Social History Tobacco Use Types Packs/Day Years [...] How often do you attend chur or sabianism services? More than 4 times per year [...] Recorded Patient Health Questionnaire-2 Score 0 01/19/2023 [facility] Questionnaire Answer Date [...] place to sleep or slept in a care home (including now)? No 02/14/2023 Comments No [...] on filedocumented in this encounter Care Teams Care Process Manager Relationship Specialty Start Date End Date Johann Us MD [address] [address] PCP - ACO Reach 11/03/22 Johann Us MD [address] [place] [address] PCP - General Family Medicine 12/21/22 Yassine Gerardo MD 703 [facility] 2, [address] [place] [address] Referring Physician Cardiology 07/20/23 documented as of this encounter
--- OUTSIDE RECORDS SUMMARY | 2025-01-10 10:39 | XMS_ITS | Patient Health Record ---
Author Organization [facility] Address [address] [place] [address] Care Team Providers Care Director Of Parks And Recreation Name Role Phone DHAVAL CHAVEZ, PRIYANKA Primary Care Provider Unavail able Madison Bowen Unavailable [phone] MarkoPriya javed Unavailable [phone] Allergies Allergen (clinical drug ingredient) Drug/Non Drug Allergy documented on EMR Reaction Allergy Type Onset Date Status antihistamines (uncoded) lose of muscle control Allergy Active Latex latex (uncoded) Unknown Allergy Acti ve Seasonal (uncoded) congestion Allergy Active Some antibiotics (uncoded) hives Allergy Active Reason For Referral Reason NO AUTH REQ......... .......................NOT SCHEDULED..................................MCR/MMO CT LUMBAR TO BE DONE AT [facility] Diagnosis 1 DDD (degenerative di sc disease), cervical (M50.30) Referral Organization [facility] Referring Provider First Name Madison Referring Provider Last Name [facility] Referring Provider Speciality Orthopedic Surgery Referred Organization [facility] Outpatient Referred Address [address] [place], [place],[address],[place] Procedure [address] lumbar spine; w/o contrast material ([address]) General Notes Shannon Bender 2024 11:26:22 AM >, Adrianne Zepeda 06/28/2024 11:31:58 AM > MEDICARE PARTS A & B ACTIVE AND EFFECTIVE 02/10/07 PER [employer] WITH MMO SECONDARY. NO AUTHORIZATION REQUIRED. FAXED TO JOSU[facility].Billy Sara 07/01/2024 11:59:58 AM > order faxed Referral Priority Routine Reason REFERRAL TO [facility] FOR EVAL AND TREAT Diagnosis 1 DDD (degenerative di sc disease), cervical (M50.30) Referral Organization [facility] Referring Provider First Name Madison Referring Provider Last Name [facility] Referring Provider Speciality Orthopedic Surgery Referred Organization Pain clinic General Notes Shannon Bender 2024 11:26:51 AM >, Shannon Bender 07/05/2024 12:56:55 pm> faxed, Shannon Bender 07/09/2024 09:32:36 AM >FAXED Referral Priority Routine Medications Medication SIG (Take, Route, Frequency, Duration) Notes Start Date End Date Status amLODIPine Active metFORMIN Active atorvastatin Active levothyroxine Active nitroglycerin Active oxyBUTYnin Active metoprolol Active clopidogrel Active Social History Tobacco Use: Social History Observation Description Date Details (start date - stop date) Former Smoker NA - NA AUDIT-C (Standard) Question Answer Notes Did you have a drink containing alcohol in the p ast year? 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) Active confirmed Encounters Encounter Location Date Provider Diagnosis [address] [place] [address] 06/28/2024 Priya [facility] Osteoarthritis of right hip, unspecified osteoarthritis type M16.11 ; Degeneration of intervertebral disc of lumbosacral region with discogenic back pain and lower extremity pain M51.372 and Sacrococcygeal disorders, not elsewhere classified M53.3 Assessments Encounter Date Diagnosis (ICD Code) Assessment Notes Treatment Notes Treatment Clinical Notes Section Notes 06/28/2024 Osteoarthritis of right hip, unspecified osteoarthritis type (ICD-10 - M16.11) 1. L5-S1 DDD/radiculopathy 2. Right hip osteoarthritis 3. Right sacroiliac joint osteoarthritis 06/28/2024 Degeneration of intervertebral disc of lumbosacral region with discogenic back pain and lower extremity pain (ICD-10 - M51.372) 1. L5-S1 DDD/radiculopathy 2. Right hip osteoarthritis 3. Right sacroiliac joint osteoarthritis 06/28/2024 Sacrococcygeal disorders, not elsewhere classified (ICD-10 - M53.3) 1. L5-S1 DDD/radiculopathy 2. Right hip osteoarthritis 3. Right sacroiliac joint osteoarthritis 06/28/2024 Other Plan established by Dr. Mayorga. Patient evaluated by myself and Dr. Mayorga today. I would like to get a MRI of the lumbar spine but patient states that her stents are not compatible with MRI. We discussed a CT myelogram but patient states that she goes into kidney failure after the dye. I did order a CT scan of the lumbar without contrast. I did also discuss treatment goals with the patient and she does not want any surgery for her back at this time. I have therefore placed a referral to pain management at the [facility]. We can see her back on an as-needed basis. The patient is very much in agreement with the treatment and/or diagnostic plan set forth and all questions were answered to the patient's satisfaction. Thanks once again. If we can be of further service to your patients with disorders of the spine, cervical, thoracic, or lumbar, please do not hesitate to contact Dr. Mayorga. Best regards, 1. L5-S1 DDD/radiculopathy 2. Right hip osteoarthritis 3. Right sacroiliac joint osteoarthritis Plan Of Treatment Pending Test Test Name Order Date CT Scan Lumbar Spine W/O Contrast - 7213 1 06/28/2024 Insurance Providers Payer Name Payer Address Payer Phone Subscriber Number Group Number Insured Name Patient Relationship to Insured Coverage Start Date [place]age [place] [address] [place] [address] [id number] STEVEN BENTON Self - patient is the insured [employer] [address] [place] [address] [id number] STEVEN BENTON Self - patient is the insured Medical (General) History Medical History History ICD Code High Blood Pressure heart attack Asthma Bronchitis Diabetes Thyroid disease Kidney stones Osteoporosis Osteoarthritis Ovarian Cysts Latex Allergy Drug Allergies Surgical History Surgery Date(Month/Year) Heart stent Stent in right groin Tumors on both sides of neck Pilonidal cyst
--- OUTSIDE RECORDS SUMMARY | 2025-01-10 10:39 | XMS_ITS | Encounter Summary ---
Author Organization [facility] Address [address] [place] [address] Care Team Providers Care Software Tools Engineer Name Role Phone Johann Us MD Unavailable [phone] Johann Us MD Primary Care Provider + [phone] Yassine Gerardo MD Unavailable [phone] Reason for Visit * Reason Onset Date Comments Care Coordination 02/02/2023 Encounter Details Date Type Department Care Team (Late st Contact Info) Description 02/02/2023 Refill [facility] [place] 521 Family Medicine [address] [place] [address] Johann Us MD 112 [facility] [address] [place] [address] (Fax) Essential (primary) hypertension Social History Tobacco Use Types Packs/Day Years Used Date Smoking Tobacco: Former Cigarettes Alcohol Use Standard Drinks/Week Comments Not Currently 0 (1 standard drink = 0.6 oz pure alcohol) Caffeine intake: 3 cups decaf per day PHQ-2 Answer Date Recorded Patient Health Questionnaire-2 Score 0 01/19/2023 Comments No Sex and Gender Information Value Date Recorded Sex Assigned at Not on file Legal Sex Female 7:13 PM EDT Gender Identity Not on file Sexual Orientation Not on file documented as of this encounter Miscellaneous Notes * Telephone Encounter - Mounika Marquez MA - 02/06/2023 2:22 PM EDT Pt called and stated her vertigo is not getting any better and she has not heard from PT about scheduling. documented in this encounter Plan of Treatment Not on file documented as of this encounter Visit Diagnoses Diagnosis Essential (primary) hypertension Unspecified essential hypertension documented in this encounter Care Teams Software Tools Engineer Relationship Specialty Start Date End Date Johann Us MD [address] [place] [address] [address] PCP - ACO Reach 11/03/22 Johann Us MD [address] [address] PCP - General Family Medicine 12/21/22 Yassine Gerardo MD 703 [facility] 2, [address] [place] [address] Referring Physician Cardiology 07/20/23 documented as of this encounter
--- OUTSIDE RECORDS SUMMARY | 2025-01-10 10:39 | XMS_ITS | Encounter Summary ---
Author Organization [facility] Address [address] [place] [address] Care Team Providers Care Superintendent Landfill Operations Name Role Phone Johann Us MD Unavailable [phone] Johann Us MD Primary Care Provider + [phone] Yassine Gerardo MD Unavailable [phone] Encounter Details Date Type Department Care Team (Late st Contact Info) Description 08/08/2023 Orders Only [facility] [place] 521 Family Medicine [address] [place] [address] Johann Us MD 112 [facility] [address] [place], [place] [phone] (Fax) Social History Tobacco Use Types Packs/Day [...] Recorded Patient Health Questionnaire-2 Score 0 08/08/2023 [facility] - Occupational Stress Questionnaire Answer Date [...] place to sleep or slept in a residential (including now)? No 02/14/2023 Comments No Sex and Gender Information Value Date Recorded Sex Assigned at Not on file Legal Sex Female 7:13 PM EDT Gender Identity Not on file Sexual Orientation Not on file Occupation Industry Job Start Date Job End Date Retired Not on file Not on file Not on file documented as of this encounter Functional Status * Over the past 2 weeks, how often have you been bothered by any of the following problems? Question Answer Date of Assessment Author Little interest or pleasure in doing things Not at all 08/08/2023 10:01 AM Mounika Butt M A Feeling down, depressed, or hopeless Not at all 08/08/2023 10:01 AM Mounika Butt M A Patient Health Questionnaire -2 Score 0 08/08/2023 10:01 AM Mounika Butt M A documented as of this encounter Plan of Treatment Not on file documented as of this encounter Visit Diagnoses Not on filedocumented in this encounter Care Teams Superintendent Landfill Operations Relationship Specialty Start Date End Date Johann Us MD [address] [place] [address] PCP - ACO Reach 11/03/22 Johann Us MD 112 [facility] [address] [place] [address] PCP - General Family Medicine 12/21/22 Yassine Gerardo MD 703 [facility] 2, [address] [place] [address] Referring Physician Cardiology 07/20/23 documented as of this encounter
--- OUTSIDE RECORDS SUMMARY | 2025-01-10 10:39 | XMS_ITS | Encounter Summary ---
Author Organization [facility] Address [address] [place] [address] Care Team Providers Care Kiln Burner Name Role Phone oJhann Us MD Unavailable [phone] Johann Us MD Primary Care Provider + [phone] Yassine Gerardo MD Unavailable [phone] Encounter Details Date Type Department Care Team (Late st Contact Info) Description 03/06/2023 Abstract [facility] [place] 521 Family Medicine [address] [facility] [address] Johann Us MD 112 [facility] [address] [place] [address] Social History Tobacco Use Types Packs/Day Years Used Date Smoking Tobacco: Former Cigarettes Tobacco Cessation:Counseling Given: Not Answered Comments:Last smoked : 1-5 years Alcohol Use Standard Drinks/Week Comments Not Currently [...] How often do you attend chur or latter-day services? More than 4 times per year 02/14/2023 Do you belong to any clubs o r organizations such as druze groups, unions, fraternal or athletic groups, or [...] Recorded Patient Health Questionnaire-2 Score 0 01/19/2023 [facility] - Occupational Stress Questionnaire Answer Date [...] place to sleep or slept in a custodial (including now)? No 02/14/2023 Comments No Sex [...] on filedocumented in this encounter Care Teams Kiln Burner Relationship Specialty Start Date End Date Johann Us MD [address] [place] [address] PCP - ACO Reach 11/03/22 Johann Us MD [address] [place] [address] PCP - General Family Medicine 12/21/22 Yassine Gerardo MD 703 [facility] 2, [address] [place] [address] Referring Physician Cardiology 07/20/23 documented as of this encounter
--- OUTSIDE RECORDS SUMMARY | 2025-01-10 10:39 | XMS_ITS | Encounter Summary ---
Author Organization [facility] Address [address] [place] [address] Phone Care Team Providers Care Sample Selector Name Role Phone Johann Us MD Primary Care Provider [phone] Encounter Details Date Type Department Care Team (Late st Contact Info) Description 02/03/2022 Orders Only [facility] [address] [place] [address] Conversion, Onbase Social History Tobacco Use Types Packs/Day Years Used Date Smoking Tobacco: Never Assessed Comments Unknown Sex and Gender Information Value Date Recorded Sex Assigned at Not on file Legal Sex Female 10:24 PM EST Gender Identity Not on file Sexual Orientation Not on file documented as of this encounter Plan of Treatment Upcoming Encounters Date Type Department Care Team (Late st Contact Info) Description 08/20/2025 1:00 PM EDT Office Visit [facility] 703 [facility] [address] [place] [address] Yassine Gerardo MD 703 [facility] [address]ld[address] 2, [address] [place] [address] Scheduled Orders Name Type Priority Associated Diagnoses Orde r Schedule OUTSIDE LAB SCAN Lab Ordered: 02/03/2022 documented as of this encounter Visit Diagnoses Not on filedocumented in this encounter Care Teams Sample Selector Relationship Specialty Start Date End Date Johann Us MD [address] [place] [address] PCP - General 06/12/99 documented as of this encounter
--- OUTSIDE RECORDS SUMMARY | 2025-01-10 10:39 | XMS_ITS | Encounter Summary ---
Author Organization [facility] Address [address] [place] [address] Care Team Providers Care Credit Risk Analyst Name Role Phone Johann Us MD Unavailable [phone] Johann Us MD Primary Care Provider + [phone] Yassine Gerardo MD Unavailable [phone] Encounter Details Date Type Department Care Team (Late st Contact Info) Description 03/07/2023 Abstract [facility] [place] 521 Family Medicine [address] [place] [address] [place] [address] [place], [place] [phone] Social History Tobacco Use Types Packs/Day Years [...] How often do you attend chur or buddhism services? More than 4 times per year [...] Recorded Patient Health Questionnaire-2 Score 0 01/19/2023 [facility] - Occupational Stress Questionnaire Answer [...] place to sleep or slept in a skilled nursing (including now)? No 02/14/2023 Comments No Sex [...] on filedocumented in this encounter Care Teams Credit Risk Analyst Relationship Specialty Start Date End Date Johann Us MD [address] [place] [address] PCP - ACO Reach 11/03/22 Johann Us MD [address] [place] [address] PCP - General Family Medicine 12/21/22 Yassine Gerardo MD 703 [facility] 2, [address] [place] [address] Referring Physician Cardiology 07/20/23 documented as of this encounter
--- OUTSIDE RECORDS SUMMARY | 2025-01-10 10:39 | XMS_ITS | Encounter Summary ---
Author Organization [facility] Address [address] [place] [address] Care Team Providers Care Hand Washer Name Role Phone Johann Us MD Unavailable [phone] Johann Us MD Primary Care Provider + [phone] Yassine Gerardo MD Unavailable [phone] Reason for Visit * Reason Comments Med Refill Encounter Details Date Type Department Care Team (Late st Contact Info) Description 07/08/2024 Refill [facility] [place] 521 Family Medicine [address] [place] [address] Johann Us MD [address] [place] [address] Urge incontinence Social History Tobacco Use Types Packs/Day Years [...] week 02/14/2023 How often do you attend [facility] or restorationist services? More than 4 times per year 02/14/2023 Do you belong to any clubs o r organizations such as latter-day groups, unions, fraternal or athletic groups, or [...] Recorded Patient Health Questionnaire-2 Score 0 08/08/2023 [facility] - Occupational [...] place to sleep or slept in a detention (including now)? No 02/14/2023 Comments No Sex [...] as of this encounter Visit Diagnoses Diagnosis Urge incontinence documented in this encounter Additional Health Concerns Assessment Noted Time PHQ-9 Depression Total Score: 1 08/30/19 24 10:00 AM EDT documented as of this encounter Care Teams Hand Washer Relationship Specialty Start Date End Date Johann Us MD [address] [address] PCP - ACO Reach 11/03/22 Johann Us MD [address] [address] PCP - General Family Medicine 12/21/22 Yassine Gerardo MD 703 [facility] 2, [facility] [address] [place] [address] Referring Physician Cardiology 07/20/23 documented as of this encounter
--- OUTSIDE RECORDS SUMMARY | 2025-01-10 10:39 | XMS_ITS | Encounter Summary ---
Author Organization [facility] Address [address] [place] [address] Care Team Providers Care Net Applications Developer Name Role Phone Johann Us MD Unavailable [phone] Johann Us MD Primary Care Provider + [phone] Yassine Gerardo MD Unavailable [phone] Encounter Details Date Type Department Care Team (Late st Contact Info) Description 02/17/2023 Abstract [facility] 521 Family Medicine [address] [facility] [place] [address] Yassine Gerardo MD 703 [facility] 2, [address] [place] [address] Social History Tobacco Use Types Packs/Day Years [...] any clubs o r organizations such as jew groups, unions, fraternal or athletic groups, or [...] Recorded Patient Health Questionnaire-2 Score 0 01/19/2023 [facility] - Occupational Stress Questionnaire Answer Date [...] place to sleep or slept in a alf (including now)? No 02/14/2023 Comments No Sex [...] on filedocumented in this encounter Care Teams Net Applications Developer Relationship Specialty Start Date End Date Johann Us MD [address] [place] [address] PCP - ACO Reach 11/03/22 Johann Us MD [address] [place] [address] PCP - General Family Medicine 12/21/22 Yassine Gerardo MD 703 [facility] 2, [address] [place] [address] Referring Physician Cardiology 07/20/23 documented as of this encounter
--- OUTSIDE RECORDS SUMMARY | 2025-01-10 10:39 | XMS_ITS | Encounter Summary ---
Author Organization [facility] Address [address] [facility] [place] [address] Care Team Providers Care Calendering Supervisor Name Role Phone Johann Us MD Unavailable [phone] Johann Us MD Primary Care Provider + [phone] Yassine Gerardo MD Unavailable [phone] Encounter Details Date Type Department Care Team (Late st Contact Info) Description 02/12/2023 Abstract [facility] [place] [address] [place] [id number] Joselo Becker DPM 3[address] [facility] [place] [address] Social History Tobacco Use Types Packs/Day Years [...] often do you attend chur ch or christian services? More than 4 times per year 02/14/2023 Do you belong to any clubs o r organizations such as hoahaoism groups, unions, fraternal or athletic groups, or [...] Recorded Patient Health Questionnaire-2 Score 0 01/19/2023 [facility] of Occupat ional [facility] - Occupational Stress Questionnaire Answer Date [...] place to sleep or slept in a usp (including now)? No 02/14/2023 Comments No Sex [...] on filedocumented in this encounter Care Teams Calendering Supervisor Relationship Specialty Start Date End Date Johann Us MD [address] [place] [address] PCP - ACO Reach 11/03/22 Johann Us MD [address] [place] [address] PCP - General Family Medicine 12/21/22 Yassine Gerardo MD 703 [facility] 2, [facility] [address] [place] [address] Referring Physician Cardiology 07/20/23 documented as of this encounter
--- OUTSIDE RECORDS SUMMARY | 2025-01-10 10:39 | XMS_ITS | Encounter Summary ---
Author Organization [facility] Address [address] [place] [address] Phone Care Team Providers Care Stick Feeder Name Role Phone Johann Us MD Primary Care Provider [phone] Encounter Details Date Type Department Care Team (Late st Contact Info) Description 03/05/2023 Scanned Document [facility] [address] [place] [address] Conversion, Onbase Social History Tobacco Use Types [...] Description 08/20/2025 1:00 PM EDT Office Visit [facility] 7[address] [facility] [address] [place] [address] Yassine Gerardo MD 703 [facility] 2, [address] [place], [place] [phone] documented as of this encounter Procedures Procedure Name Priority Date/Time Associated Diagnosis Comments OUTSIDE IMAGING SCAN 03/05/2023 OUTSIDE IMAGING SCAN 03/05/2023 ELECTROCARDIOGRAM RHYTHM STRIP 03/05/2023 documented in this encounter Results * OUTSIDE IMAGING SCAN (03/05/2023) Anatomical Region Laterality Modality Other Narrative 03/05/2023 Ordered by an unspecified provider. us Onbase Conversion OUTSIDE SCAN Final Result * OUTSIDE IMAGING SCAN (03/05/2023) Anatomical Region Laterality Modality Other Narrative 03/05/2023 Ordered by an unspecified provider. us Onbase Conversion OUTSIDE SCAN Final Result * ELECTROCARDIOGRAM RHYTHM STRIP (03/05/2023) Narrative 03/05/2023 Ordered by an unspecified provider. us Onbase Conversion ECG ORDERABLES Final Result documented in this encounter Visit Diagnoses Not on filedocumented in this encounter Additional Health Concerns Assessment Noted Time PHQ-9 Depression Total Score: 10 022 2:39 PM EDT documented as of this encounter Care Teams Stick Feeder Relationship Specialty Start Date End Date Johann Us MD [address] [place] [address] PCP - General 06/12/99 documented as of this encounter
--- OUTSIDE RECORDS SUMMARY | 2025-01-10 10:39 | XMS_ITS | Encounter Summary ---
Author Organization [facility] Address [address] [place] [address] Phone Care Team Providers Care Head Doffer Name Role Phone Johann Us MD Primary Care Provider Encounter Details Date Type Department Care Team (Late st Contact Info) Description 03/05/2023 Orders Only [facility] [address] [place] [place] [address] Conversion, Onbase Social History Tobacco Use Types [...] Description 08/20/2025 1:00 PM EDT Office Visit [place] [address] [facility] [address] [place] [address] Yassine Gerardo MD 703 [facility] 2, [address] [place], [place] [phone] Scheduled Orders Name Type Priority Associated Diagnoses Orde r Schedule OUTSIDE LAB SCAN Lab Ordered: 03/05/2023 documented as of this encounter Visit Diagnoses Not on filedocumented in this encounter Additional Health Concerns Assessment Noted Time PHQ-9 Depression Total Score: 10 022 2:39 PM EDT documented as of this encounter Care Teams Head Doffer Relationship Specialty Start Date End Date Johann Us MD [address] [place] [address] PCP - General 06/12/99 documented as of this encounter
--- OUTSIDE RECORDS SUMMARY | 2025-01-10 10:39 | XMS_ITS | Encounter Summary ---
Author Organization [facility] Address [address] [place] [address] Phone Care Team Providers Care Library Circulation Clerk Name Role Phone Johann Us MD Primary Care Provider Encounter Details Date Type Department Care Team (Late st Contact Info) Description 03/07/2023 Scanned Document [facility] [address] [place] [address] Conversion, Onbase Social History Tobacco Use Types [...] Description 08/20/2025 1:00 PM EDT Office Visit [facility] 703 [facility] [address] [place] [address] Yassine Gerardo MD 703 [facility] 2, [address] [place], [place] [phone] documented as of this encounter Visit Diagnoses Not on filedocumented in this encounter Additional Health Concerns Assessment Noted Time PHQ-9 Depression Total Score: 10 022 2:39 PM EDT documented as of this encounter Care Teams Library Circulation Clerk Relationship Specialty Start Date End Date Johann Us MD [address] [place] [address] PCP - General 06/12/99 documented as of this encounter
--- OUTSIDE RECORDS SUMMARY | 2025-01-10 10:39 | XMS_ITS | Clinical Summary ---
Author Organization [facility] Address [address] [place] [address] Care Team Providers Care Square Dance Caller Name Role Phone Johann Us MD Unavailable [phone] Johann Us MD Primary Care Provider + [phone] Yassine Gerardo MD Unavailable [phone] Allergies Active Allergy Reactions Criticality Noted Date Comments Calcium Citrate 01/17/2023 Other Reaction(s): digestive upset Cephalexin Hives 01/17/2023 Ciprofloxacin Hcl Hives 01/17/2023 Clindamycin Diarrhea 01/17/2023 Codeine Unknown 01/17/2023 Diphenhydramine 01/17/2023 Other Reaction(s): loss of muscle control Erythromycin Base Hives 01/17/2023 Minocycline Diarrhea 01/17/2023 Medications aspirin EC 81 MG EC tablet Take 81 mg by mouth 1 (one) time each day at the same time. Active atorvastatin (Lipitor) 80 MG tablet Take 80 mg by mouth 1 (one) time each day at the same time. 01/22/20 Active clopidogrel (Plavix) 75 MG tablet Take 75 mg by mouth 1 (one) time each day at the same time. Active naproxen sodium (Aleve) 220 MG tablet Take 220 mg by mouth 2 (two) times a day as needed. Active nitroglycerin (Nitrostat) 0.[address] 0.4 mg under the tongue. 01/22/20 22 Active magnesium oxide (Mag-Ox) 400 MG tablet Take 400 mg by mouth in the morning. 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 Active B Complex Vitamins (vitamin B complex) tablet Take 1 tablet by mouth Daily Active CRANBERRY CONCENTRATE PO Take 1 tablet by mouth Daily Active levothyroxine (Synthroid) 112 MCG tabletIndications: Acquired hypothyroidism Take 1 tablet (112 mcg) by mouth in the morning. Take before meals. 90 tablet 3 08/01/19 25 026 Active Pramoxine HCl 1 % creamIndications:C hronic eczema PRN 08/01/19 Active metFORMIN (Glucophage) 850 MG tabletIndications: Impaired glucose tolerance Take 1 tablet (850 mg) by mouth in the morning and 1 tablet (850 mg) in the evening. Take with meals. 180 tablet 1 08/08/19 25 025 Active amLODIPine (Norvasc) 5 MG tabletIndications: Benign essential hypertension Take 1 tablet (5 mg) by mouth in the morning. 90 tablet 01/07/20 25 026 Active oxybutynin (Ditropan) 5 MG tabletIndications: Urge incontinence Take 1 tablet (5 mg) by mouth in the morning and 1 tablet (5 mg) before bedtime. 180 tablet 01/07/20 25 025 Active amLODIPine (Norvasc) 5 MG tabletIndications: Benign essential hypertension Take 1 tablet (5 mg) by mouth in the morning. 90 tablet 1 08/01/19 25 025 Discontin ued(Reord er) oxybutynin (Ditropan) 5 MG tablet Take 5 mg by mouth in the morning and 5 mg before bedtime. 10/11/19 25 025 Discontin ued(Reord er) Active Problems Problem Noted Date Diagnosed Date Centrilobular emphysema 09/05/2024 Overview (09/05/2024): CT scan 2021. Type 2 diabetes mellitus wit h diabetic autonomic neuropathy, without long-term current use of insulin 09/05/2024 Degeneration of intervertebr al disc of lumbosacral region with discogenic back pain and lower extremity pain 08/01/2024 Sacrococcygeal disorders, not elsewhere classifi ed 08/01/2024 DDD (degenerative disc disease), cervical 2024 Lumbar radiculopathy 07/15/2024 Osteoarthritis of right hip 07/15/2024 Peripheral vascular disease 01/10/2024 Orthostatic hypotension 01/10/2024 Prediabetes 01/10/2024 Chronic kidney disease, stage 3a 08/09/2023 Hypothyroidism 05/08/2023 Arthritis of left knee 01/17/2023 Asthma due to environmental allergies 01/17/2023 Atherosclerosis of [place] artery of right lower extremity 01/17/2023 Basal cell carcinoma (BCC) of skin of right ear 01/17/2023 Benign essential hypertension 01/17/2023 Chronic fatigue 01/17/2023 Coronary artery disease invo lving [place] coronary artery of [place] heart without angina pectoris 01/17/2023 Diastolic dysfunction 01/17/2023 Disorder of tear duct system 01/17/2023 Epiretinal membrane (ERM) of right eye Gastroesophageal reflux disease without esophagi tis 01/17/2023 Heart murmur 01/17/2023 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 01/17/2023 Hypertensive nephropathy 01/17/2023 Impaired glucose tolerance 01/17/2023 Infrarenal abdominal aortic aneurysm, without ru pture 01/17/2023 Lung granuloma 01/17/2023 Macular hole of right eye 01/17/2023 Mixed hyperlipidemia 01/17/2023 Obesity (BMI 30.0-34.9) 01/17/2023 Osteopenia 01/17/2023 Other chronic pain 01/17/2023 Presbyopia of both eyes 01/17/2023 Pseudophakia of both eyes 01/17/2023 Pulmonary hypertension 01/17/2023 Rotator cuff syndrome of left shoulder Simple chronic bronchitis 01/17/2023 Status post insertion of iliac artery stent 01/2023 Bilateral artificial lens implant 01/17/2023 Stented coronary artery 01/17/2023 Vitamin D deficiency 01/17/2023 Urge incontinence 01/17/2023 Polypharmacy 08/07/2020 Osteoarthritis of knee 07/12/2016 History of cardiovascular disorder 04/25/2016 Postinflammatory pulmonary fibrosis 03/26/2016 Former smoker 03/25/2016 Resolved Problems Problem Noted Date Diagnosed Date Resolved Date NSTEMI (non-ST elevated myoc ardial infarction) 01/10/2024 09/04/2024 Abnormal posture 01/17/2023 08/07/2023 Chronic kidney disease, stage 2 (mild) 01/17/2023 08/09/2023 ESS (euthyroid sick syndrome) 01/17/2023 05/08/2023 Inflammation of left external ear 01/17/2023 08/07/2023 Keloid 01/17/2023 08/07/2023 Morbid obesity 04/25/2016 05/02/2023 Encounters Date Type Department Care Team Description 01/06/2025 Telephone [facility] Mcallister [address] [address] [place], [place], [place] Care Coordination from Last 3 Months Immunizations Immunization Administration Dates Next Due ABRYSVO - Respiratory syncyt ial virus (RSV), vaccine, bivalent, protein subunit RSV prefusion F, diluent reconstituted, 0.5 mL, PF 04/23/2024 Influenza, High Dose Seasona l, Preservative Free 04/17/2024 Influenza, High-dose Seasona l, Quadrivalent, Preservative Free 05/09/2023,05/17/2022 Influenza, injectable, quadrivalent 04/14/2016 Influenza, injectable, quadr ivalent, preservative free 04/19/2021,04/09/2019,04/02/2018,04/12,04/17/2015 Influenza, seasonal, injectable 03/13/2017,04/03 Influenza, trivalent, adjuvanted 03/26/2020,03/12 Moderna Bivalent Booster Vaccination 04/29/2022 Pfizer Purple Cap SARS-CoV-2 Vaccination 03/16/2021,07/30/2020,07/07/2020 Pneumococcal Conjugate PCV 13 04/02/2018, 017 Pneumococcal Polysaccharide PPSV23 05/20/2009 SARS-COV-2 (COVID-19) vaccin e, mRNA, spike protein, LNP, bivalent, preservative free, 30 mcg/0.3 mL dose, obed-sucrose formulation 04/29/2022 Family History Medical History Relation Name Comments Heart disease Father Heart disease Mother Melanoma Neg Hx Relation Name Status Comments Daughter Alive 2 daughters Father Mother Social History Tobacco Use Types Packs/Day Years Used Date Smoking Tobacco: Former Cigarettes Smokeless Tobacco: Never Tobacco Cessation:Counseling Given: Yes Comments:Last smoked : 1-5 years Alcohol Use [...] week 02/14/2023 How often do you attend [facility] or pentecostalism services? More than 4 times per year 02/14/2023 Do you belong to any clubs o r organizations such as scientology groups, unions, fraternal or athletic groups, or [...] Date Recorded Patient Health Questionnaire-2 Score 0 09/04/2024 [facility] of Occupat ional [facility] - Occupational Stress Questionnaire Answer Date Recorded [...] place to sleep or slept in a [place] health care facility (including now)? No 02/14/2023 Comments No Sex and Gender Information Value Date Recorded Sex Assigned at Not on file Legal Sex Female 7:13 PM EDT Gender Identity Not on file Sexual Orientation Not on file Occupation Industry Job Start Date Job End Date Retired Not on file Not on file Not on file Last Filed Vital Signs Vital Sign Reading Time Taken Comments Blood Pressure 126/70 01/22/2024 10:54 AM EDT Pulse 76 09/04/2024 2:37 PM EDT Temperature - - Respiratory Rate - - Oxygen Saturation 94% 09/04/2024 2:37 PM EDT Inhaled Oxygen Concentration - - Weight 66.7 kg (147 lb) 09/04/2024 2:37 PM EDT Height 157.5 cm (5' 2 ) 09/04/2024 2:37 PM EDT Body Mass Index 26.89 09/04/2024 2:37 PM EDT Plan of Treatment Health Maintenance Due Date Last Done Comments Diabetes: Hemoglobin A1C 11/15/2022 023, 07/06/2021, 08/01/2020, Additional history exists Diabetes: Urine Protein Screening 01/27/2023 022, 10/16/2017 Influenza Vaccine (#1) 2025 4, 05/09/2023, 05/17/2022, Additional history exists Diabetes: Retinopathy Screening 03/28/2025 03/28/2023, 03/22/2022, 02/26/2021, Additional history exists Pneumococcal Vaccine: 65+ Years Completed 04/02/2018, 03/20/2017, 05/20/2009 Procedures Procedure Name Priority Date/Time Associated Diagnosis Comments DIABETIC RETINOPATHY SCREENING - OU - BOTH EYES Routine 03/28/2023 2:28 PM EDT HEMOGLOBIN A1C Routine 08/15/2022 MICROALBUMIN, URINE QUANT Routine 10/16/2017 12:00 PM EDT from Last 3 Months or Most Recently Relevant to Health Maintenance Results * Diabetic Retinopathy Screening - OU - Both Eyes (03/28/2023 2:28 PM EDT) Anatomical Region Laterality Modality Head Other Johann Us MD OPHTH PHOTOGRAPHY Final Resu lt * Hemoglobin A1c (08/15/2022) GLYCOHEMOGLOBIN A1C 5.6 4.5 - 6.2 [facility] ADA RECOMMENDATION SEE BELOW [facility] Comment:ADA RECOMMENDED LIMI T 4.0 - 6.0 ADA THERAPEUTIC TARGET < 7.0 ACTION SUGGESTED > 7.0 EST AVG GLUCOSE 114 [facility] PERFORMING LAB: see note [facility] Comment:[address] Laboratory - [address] [place] [address] ,Ext. [phone] 08/15/2022 Johann Us MD LAB BLOOD ORDERABLES Final R esult Performing Organization Address [facility] Co de Phone Number [facility] * MICROALBUMIN, URINE QUANT (10/16/2017 12:00 PM EDT) GENERIC LEGACY COMPONENT INTERNAL 0-1,500 [facility] GENERIC LEGACY COMPONENT INTERNAL 100 [facility] 10/16/2017 12:0 0 PM EDT April Cheng PROFILE MILL OPERATOR TAPE CONTROL [facility] Final R esult Performing Organization Address [facility] Co de Phone Number [facility] from Last 3 Months or Most Recently Relevant to Health Maintenance Insurance MEDICARE Member Subscriber Plan / Payer (Ef fective 2007-Present) Name:Haylee Harding Member ID:[id number] Relation to Subscriber:Self Name:Haylee Harding Subscriber ID:[id number] Payer ID:STATE Group ID:Not on file Type:Medicare Address: [place] [phone] [employer] Advance Directives Documents on File Type Date Recorded Patient International Account Manager Expl anation Power of Blast Furnace Tender 09/04/2023 3:30 PM 09-03 Healthcare Proxy Care Teams Square Dance Caller Relationship Specialty Start Date End Date Johann Us MD [address] [place] [address] PCP - ACO Reach 11/03/22 Johann Us MD [address] [place] [address] PCP - General Family Medicine 12/21/22 Yassine Gerardo MD [address] [place] [address] 2, [address] [place] [address] Referring Physician Cardiology 07/20/23
--- OUTSIDE RECORDS SUMMARY | 2025-01-10 10:39 | XMS_ITS | Encounter Summary ---
Author Organization [facility] Address [address] [place] [address] Phone Care Team Providers Care Rolling Mill Plugger Name Role Phone Johann Us MD Primary Care Provider [phone] Encounter Details Date Type Department Care Team (Late st Contact Info) Description 02/01/2022 Orders Only [facility] [address] [place] [address] Conversion, Onbase Social History Tobacco Use Types [...] Description 08/20/2025 1:00 PM EDT Office Visit [facility] [address] [facility] [address] [place] [address] Yassine Gerardo MD 703 [facility] [address] [place] [address] Scheduled Orders Name Type Priority Associated Diagnoses Orde r Schedule OUTSIDE LAB SCAN Lab Ordered: 02/01/2022 documented as of this encounter Visit Diagnoses Not on filedocumented in this encounter Care Teams Rolling Mill Plugger Relationship Specialty Start Date End Date Johann Us MD [address] [place] [address] PCP - General 06/12/99 documented as of this encounter
--- OUTSIDE RECORDS SUMMARY | 2025-01-10 10:39 | XMS_ITS | Encounter Summary ---
Author Organization [facility] Address [address] [place] [address] Care Team Providers Care Strip Feeder Name Role Phone Johann Us MD Unavailable [phone] Johann Us MD Primary Care Provider + [phone] Yassine Gerardo MD Unavailable [phone] Reason for Visit * Reason Onset Date Comments Care Coordination 01/06/2025 Encounter Details Date Type Department Care Team (Late st Contact Info) Description 01/06/2025 Telephone [facility] [address] [address] Mounika Patel, HUYEN Care Coordination Social History Tobacco Use Types Packs/Day Years [...] often do you attend chur ch or anabaptist services? More than 4 times per year 02/14/2023 Do you belong to any clubs o r organizations such as yazidism groups, unions, fraternal or athletic groups, or [...] Recorded Patient Health Questionnaire-2 Score 0 09/04/2024 [facility]ational [facility] Questionnaire Answer Date [...] place to sleep or slept in a half-way (including now)? No 02/14/2023 Comments No Sex and Gender Information Value Date Recorded Sex Assigned at Not on file Legal Sex Female 7:13 PM EDT Gender Identity Not on file Sexual Orientation Not on file Occupation Industry Job Start Date Job End Date Retired Not on file Not on file Not on file documented as of this encounter Miscellaneous Notes * Addendum Note - Mounika Patel MA - 01/06/2025 3:24 PM EDTAddended by: MOUNIKA PATEL on: 01/06/2025 03:24 PM Modules accepted: Orders * Telephone Encounter - Mounika Patel MA - 01/06/2025 3:23 PM EDT Erx sent * Telephone Encounter - Kathia Nieves - 01/06/2025 3:00 PM EDT Spoke to Haylee, she is out of medication. She stated [place] and will go as soon as she can to get labs done, then make an appointment. Please send in refills * Telephone Encounter - Mounika Mohangatolynn HUYEN - 01/06/2025 1:10 PM EDT Pt called and stated she needed a refill of her amlodipine and oxybutynin to [facility] in [place]. It looks like she is due for OV HTN DM Incontinence with non fasting A1C. documented in this encounter Plan of Treatment Scheduled Orders Name Type Priority Associated Diagnoses Orde r Schedule Hemoglobin A1c Lab Routine Type 2 diabetes mellitus with diabetic autonomic neuropathy, without long-term current use of insulin (HCC) Expected: 01/06/2025 (Approximate), Expires: 01/06/2026 Microalbumin / creatinine urine ratio Lab Routine Benign essential hypertension Type 2 diabetes mellitus with diabetic autonomic neuropathy, without long-term current use of insulin (HCC) Chronic kidney disease, stage 3a (CMS-HCC) Expected: 01/06/2025 (Approximate), Expires: 01/06/2026 documented as of this encounter Visit Diagnoses Diagnosis Benign essential hypertension Essential hypertension, benign Type 2 diabetes mellitus with diabetic autonomic neuropathy, without long-term current use of insulin (HCC) Chronic kidney disease, stage 3a (CMS-HCC) Urge incontinence documented in this encounter Additional Health Concerns Assessment Noted Time PHQ-9 Depression Total Score: 0 09/05/19 25 2:00 PM EDT documented as of this encounter Care Teams Strip Feeder Relationship Specialty Start Date End Date Johann Us MD [address] [address] PCP - ACO Reach 11/03/22 Johann Us MD [address] [address] PCP - General Family Medicine 12/21/22 Yassine Gerardo MD [address] [place] [address] [address] [place] [address] Referring Physician Cardiology 07/20/23 documented as of this encounter
--- OUTSIDE RECORDS SUMMARY | 2025-01-10 10:39 | XMS_ITS | Encounter Summary ---
Author Organization [facility] Address [address] [place] [address] Phone Care Team Providers Care Administrative Coordinator Name Role Phone Johann Us MD Primary Care Provider Encounter Details Date Type Department Care Team (Late st Contact Info) Description 03/06/2023 Scanned Document [facility] [address] [place] [address] Conversion, Onbase Social History Tobacco Use Types [...] Description 08/20/2025 1:00 PM EDT Office Visit [facility] [address] [facility] [address] [place] [address] Yassine Gerardo MD [address] [facility] [address] [place], [place] [id number] documented as of this encounter Procedures Procedure Name Priority Date/Time Associated Diagnosis Comments OUTSIDE IMAGING SCAN 03/06/2023 ECHOCARDIOGRAM 03/06/2023 documented in this encounter Results * ECHOCARDIOGRAM (03/06/2023) Narrative 03/06/2023 Ordered by an unspecified provider. us Onbase Conversion CV ECHO PROCEDURES Final Resul t * OUTSIDE IMAGING SCAN (03/06/2023) Anatomical Region Laterality Modality Other Narrative 03/06/2023 Ordered by an unspecified provider. us Onbase Conversion OUTSIDE SCAN Final Result documented in this encounter Visit Diagnoses Not on filedocumented in this encounter Additional Health Concerns Assessment Noted Time PHQ-9 Depression Total Score: 10 022 2:39 PM EDT documented as of this encounter Care Teams Administrative Coordinator Relationship Specialty Start Date End Date Johann Us MD [address] [place] [address] PCP - General 06/12/99 documented as of this encounter
--- OUTSIDE RECORDS SUMMARY | 2025-01-10 10:39 | XMS_ITS | Encounter Summary ---
Author Organization [facility] Address [address] [place] [address] Care Team Providers Care Line Closer Name Role Phone Johann Us MD Unavailable [phone] Johann Us MD Primary Care Provider [phone] Yassine Gerardo MD Unavailable [phone] Encounter Details Date Type Department Care Team (Late st Contact Info) Description 01/23/2023 Orders Only [facility] [place] [facility] Family [facility] [address] [place] [address] Johann Us MD [address] [facility] [address] [place] [address] (Fax) Vertigo (Primary Dx) Social History Tobacco Use Types [...] as of this encounter Visit Diagnoses Diagnosis Vertigo- Primary Dizziness and giddiness documented in this encounter Care Teams Line Closer Relationship Specialty Start Date End Date Johann Us MD [address] [facility] [address] [place] [address] (Fax) PCP - ACO Reach 11/03/22 Johann Us MD [address] [facility] [address] [place] [address] PCP - General Family Medicine 12/21/22 Yassine Gerardo MD 703 [facility] 2, [facility] [address] [place] [address] Referring Physician Cardiology 07/20/23 documented as of this encounter
--- OUTSIDE RECORDS SUMMARY | 2025-01-10 10:39 | XMS_ITS | Encounter Summary ---
Author Organization [facility] Address [address] [place] [address] Care Team Providers Care Staff Nurse Name Role Phone Johann Us MD Unavailable [phone] Johann Us MD Primary Care Provider + [phone] Yassine Gerardo MD Unavailable [phone] Encounter Details Date Type Department Care Team (Late st Contact Info) Description 03/06/2023 Abstract [facility] [place] 521 Family Medicine [address] [facility] [place] [place] [address] Johann Us MD 112 [facility] [address] [place] [address] Social History Tobacco Use Types [...] How often do you attend chur or mandaen services? More than 4 times per year 02/14/2023 Do you belong to any clubs o r organizations such as tenriism groups, unions, fraternal or athletic groups, or [...] Recorded Patient Health Questionnaire-2 Score 0 01/19/2023 [facility] Answer Date [...] on filedocumented in this encounter Care Teams Staff Nurse Relationship Specialty Start Date End Date Johann Us MD [address] [place] [address] PCP - ACO Reach 11/03/22 Johann Us MD [address] [place] [address] PCP - General Family Medicine 12/21/22 Yassine Gerardo MD [address]03 [facility] 2, [address] [place] [address] Referring Physician Cardiology 07/20/23 documented as of this encounter
--- OUTSIDE RECORDS SUMMARY | 2025-01-10 10:39 | XMS_ITS | Encounter Summary ---
Author Organization [facility] Address [address] [place] [address] Care Team Providers Care Information Security Systems Instructor Name Role Phone Priyanka Puentes MD Unavailable [phone] Priyanka Puentes MD Primary Care Provider + [phone] Yassine Gerardo MD Unavailable [phone] Encounter Details Date Type Department Care Team (Late st Contact Info) Description 06/12/2024 Clinisync Result Encounter [facility] External Department Unsolicited Priyanka Puentes MD [address] [place] [address] Social History Tobacco Use Types Packs/Day Years [...] often do you attend chur ch or jewish services? More than 4 times per year 02/14/2023 Do you belong to any clubs o r organizations such as jewish groups, unions, fraternal or athletic groups, or [...] Recorded Patient Health Questionnaire-2 Score 0 08/08/2023 [facility] - Occupational Stress Questionnaire Answer [...] place to sleep or slept in a group home (including now)? No 02/14/2023 Comments No [...] Name Priority Date/Time Associated Diagnosis Comments XR HIP 2 OR 3 VW RIGHT 06/12/2024 4:56 AM EST documented in this encounter Results * XR hip right 2 or 3 views (06/12/2024 4:56 AM EST) Anatomical Region Laterality Modality Lower Extremities, Hip Right Radiograp hic Imaging 06/12/2024 4:56 AM EST Narrative 06/12/2024 4:58 AM EST The [address] [address] XRay Report Signed Patient: STEVEN HARDING MR#: [id number] : 1940 Acct:[id number] Age/Sex: 84 / F ADM Date: 06/11/24 Loc: RAD Attending Dr: PRIYANKA PUENTES Ordering Physician: PRIYANKA PUENTES Date of Service: 06/11/24 Procedure(s): XR hip RT min 2V Accession Number(s): [id number] cc: PRIYANKA PUENTES [address] [id number] Patient Name: STEVEN HARDING MRN: [id number] date: 1940 Sex: F Assigned Patient Location: [facility] Current Patient Location: Accession/Order Number: [id number] Exam Date: 06/11/2024 10:40 Report Date: 06/12/2024 04:56 At the request of: PRIYANKA PUENTES Procedure: XR hip RT min 2V PROCEDURE: XR hip RT min 2V HISTORY: Acute Right Sided Low Back Pain, Right Hip Pain COMPARISON: None. FINDINGS: BONES:Degenerative osteophytes along the articular margins. Mild joint space narrowing. No fracture or dislocation. Degenerative changes of the sacroiliac joint. SOFT TISSUES:No visible soft tissue swelling. EFFUSION:None visible. OTHER: Negative. XR/XR hip RT min 2V IMPRESSION: 1. No appreciable acute abnormality. 2. 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 Electronically authenticated by: WYATT CHRISTIANSON Date: 06/12/2024 04:56 Dictated By: Wyatt Christianson M.D. Signed By: 06/12/248 DD/ 045 TD/TT: Per Diem Physical Therapist Assistant: Procedure Note Radiology, Radiologist, MD - 06/12/2024 [place] [address] XRay Report Signed Patient: STEVEN HARDING YMR#: [id number] : 1940cct:[id number] Age/Sex: 84 / FADM Date: 06/11/24 Loc: RAD Attending Dr: PRIYANKA PUENTES Ordering Physician: PRIYANKA PUENTES Date of Service: 06/11/24 Procedure(s): XR hip RT min 2V Accession Number(s): [id number] cc: PRIYANKA PUENTES [address] [address] Patient Name: STEVEN HARDING MRN: [id number] date: 1940 Sex: F Assigned Patient Location: [facility] Current Patient Location: Accession/Order Number: [id number] Exam Date: 06/11/2024 10:40 Report Date: 06/12/2024 04:56 At the request of: PRIYANKA PUENTES Procedure: XR hip RT min 2V PROCEDURE: XR hip RT min 2V HISTORY: Acute Right Sided Low Back Pain, Right Hip Pain COMPARISON: None. FINDINGS: BONES:Degenerative osteophytes along the articular margins. Mild jointspace narrowing. No fracture or dislocation. Degenerative changes of thesacroiliac joint. SOFT TISSUES:No visible soft tissue swelling. EFFUSION:None visible. OTHER: Negative. XR/XR hip RT min 2V IMPRESSION: 1. No appreciable acute abnormality. 2. 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 Electronically authenticated by: WYATT CHRISTIANSON Date: 06/12/2024 04:56 Dictated By: Wyatt Christianson M.D. Signed By:06/12/24 0458 DD/ 0456 TD/TT: Per Diem Physical Therapist Assistant: Priyanka Puentes MD IMG XR PROCEDURES Final Resu lt documented in this encounter Visit Diagnoses Not on filedocumented in this encounter Additional Health Concerns Assessment Noted Time PHQ-9 Depression Total Score: 1 08/30/19 24 10:00 AM EDT documented as of this encounter Care Teams Information Security Systems Instructor Relationship Specialty Start Date End Date Priyanka Puentes MD [address] [address] PCP - ACO Reach 11/03/22 Priyanka Puentes MD [address] [address] PCP - General Family Medicine 12/21/22 Yassine Gerardo MD 703 [facility] [address] [place] [address] Referring Physician Cardiology 07/20/23 documented as of this encounter
== END 2025-01-10 10:30 | disposition home or self-care (01) ==
PROVIDERS: PCP Family Medicine; Visit Provider Family Medicine
DX: I12.9 Hypertensive chronic kidney disease with stage 1 through stage 4 chronic kidney disease, or unspecified chronic kidney disease (principal); E11.43 Type 2 diabetes mellitus with diabetic autonomic (poly)neuropathy; N18.31 Chronic kidney disease, stage 3a
CPT/HCPCS: 36415; 82043; 82570; 83036

== ENCOUNTER 2025-01-13 23:59 | Outpatient (REF) | payer MEDICARE, OTHER, SELFPAY ==
--- OUTSIDE RECORDS SUMMARY | 2025-01-16 06:41 | XMS_ITS | CCD ---
Author Organization [facility] Care Team Providers Care Credit Collections Clerk Name Role Phone Eva Panda Unavailable MD Priyanka Puentes Primary Care Provider MD Justa Westfall Admit Provider MD Wiley Beal Attending Provider DEONTE Monzon Other Provider Unavailable DO Isaiah Cordova Other Provider MD Vik Segura Other Provider MD Moshe Hernandez Other Provider MD Karli Dougherty Other Provider MD Anatoly Massey Other Provider FRANCOIS Mercado Other Provider [phone] MD Almita Asif Other Provider MD Dora [...] Consulting Unavailable PRANAY, KHANH Admitting Unavailable PRANAY, HKANH Attending Unavailable HEMEYER ., DR MATHEW Primary [...] MD Priyanka Puentes Primary Care Provider [phone] MD Monique Tierney Emergency Provider MD Jemal Jones Admit Provider [phone] MD Jemal Jones Attending Provider MD Chuck Chacon Attending Provider SHANTEL Dhillon Emergency Provider [phone] MD Sima Hdz Admit Provider MD Sima Hdz Attending Provider [facility] Rufus Cordon Attending Provider [phone] Dr. Priyanka Puentes Primary Care Unava Karli Horvath Attending Unavailable Ms. Hung Khanh Sophie Batista Referring Saravai xiomy Puentes, Dr. Priyanka Ramey Primary Care Unava ilKarli Whalen Referring Unavailable Karli Dougherty Attending Unavailable Dhaval, Dr. Priyanka Ramey Primary Care Unava ilable Hung, Ms. Khanh Batista Attending Goyo Puentes, Dr. Priyanka Ramey Primary Care Lilliana Persaud, Ms. Khanhrenu Batista Referring Priyanka Conway Primary Care Unavailable Chuck Chacon Attending Unavailab Jemal Dominguez Admitting Unavailable Sima Hdz Admitting Unavailable Priyanka Puentes Primary Care Unavailable Rufus Ricks Attending Unavailable Priyanka Puentes MD Unavailable [phone] Priyanka Puentes MD Primary Care Provider Karli Dougherty MD Unavailable Priyanka Puentes MD Primary Care Provider Priyanka Puentes MD Primary Care Provider Priyanka Puentes MD Unavailable [phone] Priyanka Puentes MD Primary Care Provider Priyanka Puentes MD Unavailable Priyanka Puentes MD Primary Care Provider Elton CHAVEZ, Delmy Park Attending Unavailable Elton CHAVEZ, Andrius Vdani Attending Unavailable Elton CHAVEZ, Andrius Vivian Attending Unavailable Karli Dougherty MD Unavailable [phone] PRIYANKA PUENTES Attending Unavailable PRIYANKA PUENTES Attending Unavailable PRIYANKA PUENTES Attending Unavailable PRIYANKA PUENTES Attending Unavailable PRIYANKA PUENTES Attending Unavailable Priyanka Puentes MD Primary Care Provider [phone] KARLI DOUGHERTY Attending Unavailable KARLI DOUGHERTY Referring Unavailable PRIYANKA PUENTES Primary Care Unavailable KARLI DOUGHERTY Attending Unavailable KARLI DOUGHERTY Referring Unavailable PRIYANKA PUENTES Primary Care Unavailable Allergies Allergy Classification Reported Allergen(s) Allergy Type Date of Onset Reaction(s) Facility (1 source) diphenhydrAMINE Drug Allergy anaphylaxis crobo Other (8 sources) Ticagrelor; Translations: [Brilinta TABS] Drug Allergy 03-17-20 Other [facility] [place] (4 sources) Codeine; Translations: [CODEINE] Drug Allergy 01-18-20 Shakiness [facility] (1 source) Penicillin Drug Allergy 01-19-20 22 [facility] (2 sources) Ticagrelor; Translations: [TICAGRELOR] Drug Allergy 01-25-20 22 [facility] (1 source) Antihistamines - Ethanolamine Drug allergy (disorder) 01-27-20 [facility] (2 sources) Antihistamines Allergy to substance 03-12-20 [facility] (18 sources) Calcium Citrate Drug Allergy 01-18-20 23 [facility] (18 sources) Cephalexin Drug Allergy 01-18-20 Hives [facility] (18 sources) Ciprofloxacin Drug Allergy 01-18-20 [facility] (20 sources) Clindamycin; Translations: [CLINDAMYCIN] Drug Allergy 01-18-20 Diarrhea [facility] (20 sources) Codeine Drug Allergy 01-18-20 23 Unknown [facility] (18 sources) diphenhydrAMINE Drug Allergy 01-18-20 [facility] (19 sources) Minocycline; Translations: [MINOCYCLINE] Drug Allergy 01-18-20 Diarrhea 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 Active Ventolin HFA 108 (90 Base) MCG/ACT Inhalation Aerosol Solution USE DIRECTED Quantity: 0 Refills: 0 Ordered: 17-Mar-2022 DO Active amLODIPine 5 mg oral tablet (20 sources) Dihydropyridine Calcium Channel Sarbjit Start: 03-14-2023 End: 11-11-2025 take 1 tablet by mouth in the morning amLODIPine (Norvasc) 5 MG tablet Indications: Benign essential hypertension Take 1 tablet (5 mg) by mouth in the morning. 90 tablet 01/06/2025 07/05/2025 Active aspirin 81 mg chewable tablet (20 [...] B Complex Vitamins (vitamin B complex) tablet (17 sources) take 1 tablet by mouth once [...] sources) P2Y12 Platelet Inhibitor Start: 02-15-2022 End: 08-08-2025 take 1 tablet by mouth once daily clopidogrel (Plavix) 75 mg tablet Indications: Coronary angioplasty status , PAD (peripheral artery disease) Take 1 tablet (75 mg) by mouth once daily. 90 tablet 3 08/08/2024 08/08/2025 Active Start: 02-15-2022 take 4 tablets by mo ut once daily Clopidogrel Bisulfate 75 MG Oral Tablet Take 4 tablets (300mg) on day #1 then take one tablet daily Quantity: 30 Refills: 11 Ordered: 15-Feb-2022 Khanh Michael Start : 15-Feb-2022 Active CRANBERRY CONCENTRATE PO (17 sources) take 1 tablet by mouth once daily CRANBERRY CONCENTRATE PO Take 1 tablet by mouth Daily Active cranberry preparation 500 mg oral capsule (2 sources) Non-Standardized Food Allergenic Extract, Non-Standardized Plant Allergenic [...] completed) levothyroxine sodium 0.112 mg oral tablet (20 sources) l-Thyroxine Start: 08-08-19 End: 08-01-19 26 take 1 tablet by mouth before mealtime levothyroxine (Synthroid) 112 MCG tablet Indications: Acquired hypothyroidism Take 1 tablet (112 mcg) [...] Active magnesium oxide 400 mg oral tablet (20 sources) Start: 03-07-2023 End: 08-31-2023 take 400 mg by mouth once daily Magnesium Oxide Active 400 MG PO Daily March 07, 2023 12:00am take 1 tablet by mouth in the mo rning magnesium oxide 500 mg magnesium tablet Take 1 tablet (500 mg) by mouth early in the morning.. Active metFORMIN hydrochloride 850 mg oral tablet (20 sources) Biguanide Start: 08-08-2023 End: 02-04-2025 take 1 tablet by mouth in the morning metFORMIN (Glucophage) 850 MG tablet Indications: Impaired glucose tolerance Take 1 tablet (850 mg) by mouth in the morning and 1 tablet (850 mg) in the evening. Take with meals. 180 tablet 1 08/08/2024 02/04/2025 Active Start: 01-18-2022 End: 08-31-2023 take 1 [...] (20 sources) beta-Adrenergic Sarbjit Start: 04-23-2024 End: 07-10-2025 take 1 tablet by mouth twice daily metoprolol tartrate (Lopressor) 25 mg tablet Indications: Essential (primary) hypertension Take 1 tablet (25 mg) by mouth 2 times a day. 180 tablet 3 07/10/2024 07/10/2025 Active Start: 07-12-2023 End: 08-11-2023 take 0.5 tablet by mouth once metoprolol tartrate (Lop ressor) 25 MG tablet Indications: Benign essential hypertension Take 0.5 tablets (12.5 [...] Active naproxen sodium 220 mg oral tablet (18 sources) Nonsteroidal Anti-inflammatory Drug take 1 tablet by mouth twice daily as needed naproxen sodium (Aleve) 220 MG tablet Take 220 mg by mouth 2 (two) times a day as needed. 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 1 each 0 07/05/2023 07/04/2024 Active nitroglycerin 0.4 mg sublingual tablet (20 sources) Nitrate Vasodilator Start: 10-25-2024 nitroglyce rin (Nitrostat) 0.4 mg SL tablet Indications: Coronary angioplasty status DISSOLVE 1 TABLET UNDER THE TONGUE NEEDED FOR CHEST PAIN- MAY REPEAT EVERY 5 MINUTES IF NEEDED ( MAX 3 DOSES.- IF NO RELIEF CALL 911) 25 tablet 11 10/25/2024 Active Start: 01-21-2022 nitroglycerin (Nitrostat) 0.[address] 0.4 mg under the tongue. 01/21/2022 Active oxybutynin chloride 5 mg oral tablet (20 sources) Cholinergic Muscarinic Antagonist Start: 01-06-2025 End: 04-06-2025 take 1 tablet by mouth in the morning oxybutynin (Ditropan) 5 MG tablet Indications: Urge incontinence Take 1 tablet (5 mg) by mouth in the morning and 1 tablet (5 mg) before bedtime. 180 tablet 01/06/2025 04/06/2025 Active Start: 07-10-2024 End: 10-08-2024 take 1 tablet by mouth in the morning oxybutynin (Ditropan) 5 MG tablet Indications: Urge incontinence Take 1 tablet (5 mg) by mouth in the morning and 1 tablet (5 mg) before bedtime. 180 tablet 1 07/10/2024 10/08/2024 Active Start: 01-18-2022 End: 10-10-2023 take 1 tablet by mouth in the morning oxybutynin (Ditropan) 5 MG tablet Take 5 mg by mouth in the morning and 5 mg before bedtime. 01/14/2024 Active Start: 11-11-2019 End: 01-18-2022 take 10 [...] chloride 20 meq extended release oral tablet (19 sources) take 1 tablet by angel th [...] completed) potassium citrate 99 mg oral tablet (14 sources) End: 08-01-2024 take 1 capsule by mouth in the morning potassium citrate 99 mg capsule Take 1 Capful by mouth early in the morning.. Active pramoxine hydrochloride 10 mg/ml topical cream (7 sources) Start: 08-01-2024 Pramoxine HCl 1 % cream Indications: Chronic eczema PRN 08/01/2024 Active predniSONE 10 mg oral tablet (11 sources) Start: 05-14-2024 End: 08-01-2024 predniSONE (Deltasone) 10 MG tablet Indications: Acute right-sided low back pain with right-sided sciatica , Right hip pain , Pain of right sacroiliac joint Every 2 day tapering dose; 5,5,4,4,3,3,2,2,1,1,0.5 ,0.5 31 tablet 05/14/2024 08/01/2024 Discontinued (Therapy completed) Thyroid (Pork) (Ceramic Sprayer Thyroid) 60 mg tablet (4 sources) Start: 01-18-2022 take 1 tablet by mouth twice daily Thyroid (Pork) (Ceramic Sprayer Thyroid) 60 mg tablet Active 60 MG PO Twice daily January 18, 2022 12:00am thyroid (residential) 60 mg oral tablet (11 sources) Start: 01-18-2022 take 1 tablet by mouth twice daily Thyroid (Pork) (Ceramic Sprayer Thyroid) 60 mg tablet Active 60 MG PO Twice daily January 18, 2022 12:00am End: 08-31-2023 take 1 tablet by mouth once daily before mealtime thyroid, pork, (FINISHED HARDWARE ERECTOR Thyroid) 60 mg tablet Take 1 tablet [...] 7 days Dec, Active Vitamin B Complex (3 sources) take 1 tablet by mouth once [...] Problem Classification Problem Date Documented Date Episodic/Chronic Administrative/social admission (1 source) Advance directive discussed with patient; Translations: [Other specified counseling] 09-03-2024 Episodic Allergic reactions (2 sources) Chronic eczema; Translations: [Dermatitis, unspecified] 08-01-2024 Episodic Aortic; peripheral; and visceral artery aneurysms (19 sources) Aneurysm of infrarenal abdominal aorta ; Translations: [Infrarenal abdominal aortic aneurysm, without rupture] Onset: 01-17-2023 01-17-2023 Chronic Asthma (18 sources) Allergic asthma; Translations: [Unspecified asthma, uncomplicated] [...] Coronary arteriosclerosis; Translations: [Atherosclerotic heart disease of [place] coronary artery without angina pectoris] Onset: 06-14-2022 02-03-2022 Chronic Diabetes mellitus with complications (4 sources) Autonomic neuropathy due to type 2 diabetes mellitus; Translations: [Type 2 diabetes mellitus with diabetic autonomic (poly)neuropathy] Onset: 09-05-2024 09-04-2024 Chronic Diabetes mellitus without complication (1 source) Type 2 diabetes mellitus without complications; Translations: [TYPE 2 DM WITHOUT COMPLICATIONS] Onset: 01-20-2022 Chronic Diseases of white blood cells (1 source) Elevated white blood cell count, unspecified; Translations: [ELEVATED WHITE BLOOD CELL COUNT UNS] Onset: 02-02-2022 Chronic Disorders of lipid metabolism (20 sources) Mixed hyperlipidemia; Translations: [Mixed hyperlipidemia] Onset: 08-16-2022 01-17-2023 Chronic Esophageal disorders (18 sources) Gastroesophageal reflux disease without esophagitis; Translations: [Gastro-esophageal reflux disease without esophagitis] Onset: 01-17-2023 01-17-2023 Chronic Essential hypertension (20 sources) Hypertensive disorder; Translations: [Essential (primary) hypertension] Onset: 01-20-2022 11-11-2019 Chronic Fluid and electrolyte disorders (10 sources) Hypo-osmolality and hyponatremia; Translations: [Acute hyponatremia] Onset: 02-02-2022 03-05-2023 Episodic Genitourinary symptoms and ill-defined conditions (18 sources) Urge incontinence of urine; Translations: [Urge incontinence] Onset: 01-17-2023 01-17-2023 Chronic Hypertension with complications and secondary hypertension (20 sources) Hypertensive chronic kidney disease with stage 1 through stage 4 chronic kidney disease, or unspecified chronic kidney disease; Translations: [Hypertensive urgency ] Onset: 08-15-2022 Chronic Malaise and fatigue (20 sources) Chronic fatigue, unspecified; Translations: [Fatigue] Onset: 04-12-2022 Chronic Nutritional deficiencies (18 sources) Vitamin D deficiency; Translations: [Vitamin D deficiency, unspecified] Onset: 01-17-2023 01-17-2023 Chronic Osteoarthritis (20 sources) Arthritis of left knee; Translations: [Unilateral primary osteoarthritis, left knee] Onset: 07-12-2016 01-17-2023 Chronic Other and ill-defined heart disease (18 sources) Diastolic dysfunction; Translations: [Other ill-defined heart diseases] Onset: 01-17-2023 01-17-2023 Chronic Other circulatory disease (18 sources) History of endovascular stent graft for repair of abdominal aortic aneurysm; Translations: [Presence of other vascular implants and grafts] Onset: 01-17-2023 01-17-2023 Chronic Other circulatory disease (18 sources) History of insertion of iliac stent; Translations: [Presence of other vascular implants and grafts] Onset: 01-17-2023 01-17-2023 Chronic Other circulatory disease (1 source) Orthostatic hypotension; Translations: [Orthostatic hypotension] Onset: 03-05-2023 Episodic Other ear and sense organ disorders (1 source) Disorder of external ear; Translations: [Unspecified otitis externa, left ear] Onset: 01-17-2023 01-17-2023 Chronic Other lower respiratory disease (19 sources) Pulmonary granuloma; Translations: [Pulmonary fibrosis, unspecified] Onset: 01-17-2023 01-17-2023 Chronic Other lower respiratory disease (19 sources) Post-inflammatory pulmonary fibrosis; Translations: [Pulmonary fibrosis, unspecified] Onset: 03-26-2016 01-19-2023 Chronic Other lower respiratory disease (3 sources) Dyspnea on exertion; Translations: [Other forms of dyspnea] 08-31-2023 Episodic Other nervous system disorders (18 sources) Chronic pain; Translations: [Other chronic pain] Onset: 01-17-2023 01-17-2023 Chronic Other non-traumatic joint disorders (2 sources) Hip pain; Translations: [Pain in right hip] 05-14-2024 Episodic Other nutritional; endocrine; and metabolic disorders (4 sources) Obesity; Translations: [Obesity, unspecified] Chronic Other nutritional; endocrine; and metabolic disorders (20 sources) Obese class I; Translations: [Obesity, unspecified] Onset: 01-17-2023 01-17-2023 Chronic Other nutritional; endocrine; and metabolic disorders (9 sources) Overweight in adulthood with body mass index of 25 or more but less than 30; Translations: [Overweight] Onset: 08-31-2023 08-31-2023 Episodic Other nutritional; endocrine; and metabolic disorders (2 sources) Body mass index 25-29 - overweight; Translations: [Overweight] 05-14-2024 Episodic Other nutritional; endocrine; and metabolic disorders (2 sources) Body mass index (BMI) 28.0-28.9, adult; Translations: [Body mass index (BMI) 28.0-28.9, adult] Onset: 11-11-2024 Episodic Other screening for suspected conditions (not mental disorders or infectious disease) (6 sources) Echocardiogram abnormal; Translations: [Nonspecific (abnormal) findings on radiological and other examination of other intrathoracic organs] Onset: 07-20-2022 09-03-2024 Episodic Peripheral and visceral atherosclerosis (20 sources) Peripheral vascular disease; Translations: [Peripheral vascular disease, unspecified] Onset: 01-20-2022 01-19-2022 Chronic Pulmonary heart disease (19 sources) Pulmonary hypertension; Translations: [Pulmonary hypertension, unspecified] Onset: 01-17-2023 01-17-2023 Chronic Retinal detachments; defects; vascular occlusion; and retinopathy (20 sources) Epiretinal membrane of right eye; Translations: [Puckering of macula, right eye] Onset: 01-17-2023 01-17-2023 Chronic Spondylosis; intervertebral disc disorders; other back problems (17 sources) Degeneration of cervical intervertebral disc; Translations: [Other cervical disc degeneration, unspecified cervical region] Onset: 07-15-2024 07-15-2024 Chronic Syncope (12 sources) Near syncope; Translations: [Syncope and collapse] Onset: 02-02-2022 11-11-2019 Episodic Thyroid disorders (20 sources) Hypothyroidism; Translations: [Hypothyroidism, unspecified] Onset: 03-05-2023 01-18-2022 Chronic Unclassified (1 source) CONTACT W/AND (SUSP) EXPOS COVID-19; Translations: [CONTACT W/AND (SUSP) EXPOS COVID-19] Onset: 02-02-2022 Past or Other Problems Problem Classification Problem Date Documented Da te Episodic/Chronic Acute myocardial infarction (20 sources) Myocardial infarction; Translations: [Non-ST elevation (NSTEMI) myocardial infarction] Onset: 01-20-2022 Resolved: 09-04-2024 01-18-2022 Chronic Blindness and vision defects (18 sources) Presbyopia; Translations: [Presbyopia] Onset: 01-17-2023 01-17-2023 Episodic Coronary atherosclerosis and other heart disease (20 sources) Patient post percutaneous transluminal coronary angioplasty; Translations: [Percutaneous transluminal coronary angioplasty status] Onset: 01-17-2023 01-17-2023 Episodic Diabetes mellitus without complication (20 sources) Prediabetes; Translations: [Prediabetes] Onset: 08-16-2022 01-18-2022 Episodic Heart valve disorders (18 sources) Heart murmur; Translations: [Cardiac murmur, unspecified] Onset: 01-17-2023 01-17-2023 Episodic Mood disorders (20 sources) Mood disorders Onset: 02-15-2022 Resolved: 09-04-2024 07-25-2022 Noninfectious gastroenteritis (1 source) Noninfective gastroenteritis and colitis, unspecified; Translations: [NONINFECTIVE GE AND COLITIS UNS] Onset: 02-02-2022 Episodic Nonspecific chest pain (3 sources) Chest pain, unspecified; Translations: [CHEST PAIN UNSPECIFIED] Onset: 01-18-2022 Episodic Other aftercare (1 source) Other 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 (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; Translations: [OTH NYLON OPERATOR CURRENT DRUG THERAPY] Onset: 02-02-2022 Episodic Other aftercare (1 source) intermodal 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 (current) use of oral hypoglycemic drugs; Translations: [SENIOR LIVING USE ORAL HYPOGLYCEMIC DX] Onset: 02-02-2022 Episodic Other aftercare (1 source) shelter (current) use of aspirin; Translations: [SENIOR LIVING CURRENT USE OF ASPIRIN] Onset: 01-20-2022 Episodic Other aftercare (20 sources) Polypharmacy ; Translations: [Other intermodal 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 (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] Onset: 08-07-2020 01-19-2023 Episodic Other bone disease and musculoskeletal deformities (18 sources) Osteopenia; Translations: [Other specified disorders of bone density and structure, unspecified site] Onset: 01-17-2023 01-17-2023 Episodic Other circulatory disease (1 source) Hypotension, unspecified; Translations: [HYPOTENSION UNSPECIFIED] Onset: 02-02-2022 Episodic Other circulatory disease (20 sources) Orthostatic hypotension; Translations: [Orthostatic hypotension] Onset: 01-10-2024 03-07-2023 Episodic Other circulatory disease (18 sources) H/O: cardiovascular disease; Translations: [Personal history of other diseases of the circulatory system] Onset: 04-25-2016 01-19-2023 Episodic Other connective tissue disease (18 sources) Abnormal posture; Translations: [Abnormal posture] Onset: 01-17-2023 Resolved: 08-07-2023 01-17-2023 Episodic Other connective tissue disease (18 sources) Left rotator cuff syndrome; Translations: [Unspecified rotator cuff tear or rupture of left shoulder, not specified as traumatic] Onset: 01-17-2023 01-17-2023 Episodic Other ear and sense organ disorders (17 sources) Disorder of left external ear; Translations: [Unspecified otitis externa, left ear] Onset: 01-17-2023 Resolved: 08-07-2023 08-07-2023 Chronic Other eye disorders (18 sources) Disorder of lacrimal system; Translations: [Disorder of lacrimal system, unspecified] Onset: 01-17-2023 01-17-2023 Episodic Other gastrointestinal disorders (3 sources) Diarrhea, unspecified; Translations: [DIARRHEA UNSPECIFIED] Onset: 01-27-2022 Episodic Other hematologic conditions (1 source) Other specified abnormalities of plasma proteins; Translations: [OTH SPEC ABNORM PLASMA PROTEINS] Onset: 02-02-2022 Episodic Other lower respiratory disease (10 sources) Dyspnea; Translations: [Other respiratory abnormalities] Onset: 03-17-2023 03-17-2023 Episodic Other lower respiratory disease (1 source) Shortness of breath; Translations: [SHORTNESS OF BREATH] Onset: 02-02-2022 Episodic Other lower respiratory disease (2 sources) Other forms of dyspnea; Translations: [Other forms of dyspnea] Onset: 03-17-2023 Episodic Other non-epithelial cancer of skin (18 sources) Basal cell carcinoma of ear; 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] Onset: 01-17-2023 01-17-2023 Episodic Other nutritional; endocrine; and metabolic disorders (18 sources) Morbid obesity; Translations: [Morbid (severe) obesity due to excess calories] Onset: 04-25-2016 Resolved: 05-02-2023 05-02-2023 Chronic Other nutritional; endocrine; and metabolic disorders (2 sources) Body mass index (BMI) 29.0-29.9, adult; Translations: [Body mass index (BMI) 29.0-29.9, adult] Onset: 05-08-2024 Episodic Other skin disorders (18 sources) Keloid scar; Translations: [Hypertrophic scar] Onset: 01-17-2023 Resolved: 08-07-2023 01-17-2023 Episodic Residual codes; unclassified (1 source) Other specified postprocedural states; Translations: [OTH SPECIFIED POSTPROCEDURAL STATES] Onset: 02-02-2022 Episodic Screening and history of mental health and substance abuse codes (20 sources) Ex-smoker; Translations: [Personal history of tobacco use] Onset: 03-25-2016 01-19-2023 Episodic Comment on above: nicotine lozenges; Spondylosis; intervertebral disc disorders; other back problems (20 sources) Acute back pain with sciatica; Translations: [Lumbago with sciatica, right side] Onset: 07-15-2024 05-14-2024 Episodic Thyroid disorders (20 sources) Sick-euthyroid syndrome; Translations: [Sick-euthyroid syndrome] Onset: 04-15-2022 Resolved: 05-08-2023 Episodic Unclassified (3 sources) Onset: 08-31-2023 Resolved: 05-08-2024 08-31-2023 Viral infection (1 source) Zoster without complications Onset: 01-01-2022 Resolved: 01-01-2022 Episodic Results Test Name Value Interpretation Reference Range Facility [facility] MICROALB CREAT RATIO RAN Melvi 01-13-2025 CREATININE URINE RANDOM 22.8 mg/dL 20.00 - 300.00 mg/dL [facility] MICROALBUMIN URINE RANDOM <1.3 NINF - 30.0 mg/dL [facility] MLR HEMOGLOBIN A1Con 025 Glucose [Mass/Vol] 114 mg/dL [facility] HbA1c (Bld) [Mass fraction] 5.6 % 4.5 - 6.2 % [facility] Comment on above: ADA RECOMMENDED LIMI T 4.0 - 6.0 ADA THERAPEUTIC TARGET < 7.0 ACTION SUGG[facility] 07-16-2024 Free T3 [Mass/Vol] 1.79 pg/mL Low 2.18 - 3.98 pg/mL [facility] Interpretation and review of laboratory results Abnormal [facility] ALL THYROID STIM HORMONEon 0 07-16-2024 TSH Qn 1.771 m[IU]/L [facility] No Panel Informationon 07-16 [facility] CT Lumbar spine WO contrasto n 07-11-2024 [place] [address] CT Scan Report Signed Patient: STEVEN HARDING MR#: [id number] : 1940 Acct:[id number] Age/Sex: 84 / F ADM Date: 07/10/24 Loc: CT Attending Dr: Priya JUAREZ Ordering Physician: Priya Patel Date of Service: 07/10/24 Procedure(s): CT lumbar spine wo con Accession Number(s): [id number] cc: PRIYANKA PUENTES [place] [address] Patient Name: STEVEN HARDING MRN: [id number] date: 1940 Sex: F Assigned Patient Location: CT Current Patient Location: Accession/Order Number: [id number] Exam Date: 07/10/2024 13:48 Report Date: 07/11/2024 [...] L3-L4, and L4-L5. Spinal canal narrowing is fdlu-nf-kajwkrqo at these levels, also contributed to by [...] demineralization. 2. Multilevel lumbar spondylotic changes with lesu-ee-jdiyyjtd spinal canal narrowing at L2-L3, L3-L4, and L4-L5. 3. Infrarenal abdominal aortic aneurysm measures approximately 3.2 x 2.6 cm. This has mildly increased in size since 01/27/2022. Electronically authenticated by: YAO WATSON Date: 07/11/2024 13:40 Dictated By: Yao Watson M.D. Signed By: 07/11/24 1342 DD/ 1340 TD/TT: Assembler Ping Pong Table: [facility] Radiology, Radiologi MD merle - 07/11/2024 [place] [address] CT Scan Report Signed Patient: STEVEN HARDING MR#: [id number] : 1940 Acct:[id number] Age/Sex: 84 / F ADM Date: 07/10/24 Loc: CT Attending Dr: Priay JUAREZ Ordering Physician: Priya Patel Date of Service: 07/10/24 Procedure(s): CT lumbar spine wo con Accession Number(s): [id number] cc: PRIYANKA PUENTES [address] [address] Patient Name: STEVEN HARDING MRN: [id number] date: 1940 Sex: F Assigned Patient Location: CT Current Patient Location: Accession/Order Number: [id number] Exam Date: 07/10/2024 13:48 Report Date: 07/11/2024 13:40 At the request of: PRIYA APTEL Procedure: CT lumbar spine wo con EXAM: [...] L3-L4, and L4-L5. Spinal canal narrowing is rrqp-iq-lkreitux at these levels, also contributed to by [...] demineralization. 2. Multilevel lumbar spondylotic changes with fsar-xc-jlsxjzna spinal canal narrowing at L2-L3, L3-L4, and L4-L5. 3. Infrarenal abdominal aortic aneurysm measures approximately 3.2 x 2.6 cm. This has mildly increased in size since 01/27/2022. Electronically authenticated by: YAO WATSON Date: 07/11/2024 13:40 Dictated By: Yao Watson M.D. Signed By: 07/11/24 1342 DD/ 39 TD/TT: Assembler Ping Pong Table: [facility] Radiology Study observation (narrative) [facility] CT Lumbar spine WO contrastO rdered By: Radiologist Radiology on 07-11-2024 [facility] Work Phone: ALL LIPID PROFILE (FASTING)o n 05-17-2024 CHOL HDL RATIO 1.8 [facility] Comment on above: 3.3 - 4.4 LOW RISK 4.4 - 7.1 AVERAGE RISK 7.1 - 11.0 MODERATE RISK >11.0 HIGH RISK Cholesterol [Mass/Vol] 144 mg/dL NINF - 200 mg/dL [facility] Cholesterol in HDL [Mass/Vol] 80 mg/dL High 40 - 60 mg/dL [facility] Comment on above: > or =60 mg/dl - LOW CARDIOVASCULAR RISK <40 mg/dl - HIGH CARDIOVASCULAR RISK Magnesium [Mass/Vol] 52 mg/dL [facility] Comment on above: <100 mg/dl OPTIMAL 100-129 mg/dl NEAR OR ABOVE OPTIMAL 130-159 mg/dl BORDERLINE HIGH 160-189 mg/dl HIGH >190 mg/dl VERY HIGH Magnesium [Mass/Vol] 12.2 mg/dL [facility] Triglyceride [Mass/Vol] 61 mg/dL NINF - 150 mg/dL [facility] CMP (CMP) (FOR REMOTE FH C USE)on 05-17-2024 Albumin [Mass/Vol] 4 g/dL 3.4 - 5.0 g/dL [facility] ALBUMIN GLOBULIN RATIO 1.3 NO [facility] ALP [Catalytic activity/Vol] 48 U/L 46 - 116 U/L [facility] ALT [Catalytic activity/Vol] 24 U/L 14 - 59 U/L [facility] Anion gap [Moles/Vol] 13.4 mmol/L NO [facility] AST [Catalytic activity/Vol] 13 U/L Low 15 - 37 U/L [facility] Bilirubin [Mass/Vol] 0.6 mg/dL 0.2 - 1 .0 mg/dL [facility] Calcium [Mass/Vol] 9.1 mg/dL 8.5 - 10. 1 mg/dL [facility] Chloride [Moles/Vol] 97 mmol/L Low 98 - 10 7 mmol/L [facility] CO2 [Moles/Vol] 28.9 mmol/L 21.0 - 32.0 mmol/L [facility] Creatinine [Mass/Vol] 1.12 mg/dL High 0.55 - 1.02 mg/dL [facility] GFR/1.73 sq M.predicted CKD-EPI (S/P/Bld) [Vol rate/Area] 56 Low >=60 mL/min/1.7 3m 2 [facility] Globulin (S) [Mass/Vol] 3.2 g/dL [facility] Glucose [Mass/Vol] 102 mg/dL 74 - 106 mg/dL [facility] Potassium [Moles/Vol] 4.3 mmol/L 3.5 - 5.1 mmol/L [facility] Protein [Mass/Vol] 7.2 g/dL 6.4 - 8.2 g/dL [facility] Sodium [Moles/Vol] 135 mmol/L Low 136 - 145 mmol/L [facility] EGFR-NON AF MOLDOVAN 47 Low >=60 mL/min/1.7 3m 2 [facility] Urea nitrogen [Mass/Vol] 22 mg/dL High 7.0 - 18.0 mg/dL [facility] Urea nitrogen/Creatinine [Mass ratio] 19.6 mg/mg [facility] No Panel Informationon 05-17 Interpretation and review of laboratory results Abnormal [facility] MLR HEMOGLOBIN A1Con 024 Glucose [Mass/Vol] 111 mg/dL [facility] HbA1c (Bld) [Mass fraction] 5.5 % 4.5 - 6.2 % [facility] Comment on above: ADA RECOMMENDED LIMI T 4.0 - 6.0 ADA THERAPEUTIC TARGET < 7.0 ACTION SUGGESTED > 7.0 [facility] Basic Metabolic Panelon 10-0 Anion gap [Moles/Vol] 9.8 mmol/L Normal 6.0-15.0 [facility] Comment on above: Performed By: #### B FINISHED HARDWARE ERECTOR, BMP, PT, PTT, HS TROP, CBC, TSH3, CK #### [facility] [address] Calcium [Mass/Vol] 8.3 mg/dL Low 8.6-10.3 [facility] Comment on above: Performed By: #### B FINISHED HARDWARE ERECTOR, BMP, PT, PTT, HS TROP, CBC, TSH3, CK #### [facility] [address] Chloride [Moles/Vol] 101 mmol/L Normal 98-107 [facility] Comment on above: Performed By: #### B FINISHED HARDWARE ERECTOR, BMP, PT, PTT, HS TROP, CBC, TSH3, CK #### [facility] [address] CO2 [Moles/Vol] 23.6 mmol/L Normal 21.0-31.0 [facility] Comment on above: Performed By: #### B FINISHED HARDWARE ERECTOR, BMP, PT, PTT, HS TROP, CBC, TSH3, CK #### [address] Creatinine [Mass/Vol] 0.70 mg/dL Normal 0.60-1.20 [facility] Comment on above: Performed By: #### B FINISHED HARDWARE ERECTOR, BMP, PT, PTT, HS TROP, CBC, TSH3, CK #### [address] Creatinine Clr Calc Pharmacy 48.[address] [facility] Comment on above: Performed By: #### B FINISHED HARDWARE ERECTOR, BMP, PT, PTT, HS TROP, CBC, TSH3, CK #### [address] GFR/1.73 sq M.predicted MDRD (S/P/Bld) [Vol rate/Area] mL/min/{1.73_m2} [facility] Comment on above: Performed By: #### B FINISHED HARDWARE ERECTOR, BMP, PT, PTT, HS TROP, CBC, TSH3, CK #### [address] Glucose [Mass/Vol] 84 mg/dL Normal 70-100 [facility] Comment on above: Result Comment: [facility] Glucose Reference Range is dependent on time and content of last meal. Glucose of more than 200 mg/dL in a nonstressed, ambulatory subject supports the diagnosis of Diabetes Mellitus. ADA recommended reference range Performed By: #### B FINISHED HARDWARE ERECTOR, BMP, PT, PTT, HS TROP, CBC, TSH3, CK #### [facility] [address] Potassium [Moles/Vol] 4.4 mmol/L Normal 3.5-5.1 [facility] Comment on above: Performed By: #### B FINISHED HARDWARE ERECTOR, BMP, PT, PTT, HS TROP, CBC, TSH3, CK #### [facility] [address] Sodium [Moles/Vol] 130 mmol/L Low 136-145 [facility] Comment on above: Performed By: #### B FINISHED HARDWARE ERECTOR, BMP, PT, PTT, HS TROP, CBC, TSH3, CK #### [facility] [address] Urea nitrogen [Mass/Vol] 8 mg/dL Normal 7-25 [facility] Comment on above: Performed By: #### B FINISHED HARDWARE ERECTOR, BMP, PT, PTT, HS TROP, CBC, TSH3, CK #### [facility] [address] Calcium [Mass/volume] in Ser um or PlasmaOrdered By: Rufus Ricks on 03-14-2023 Calcium [Mass/Vol] 8.3 mg/dL 8.6-10.3 [facility] Carbon dioxide, total [Moles /volume] in Serum or PlasmaOrdered By: Rufus Ricks on 03-14-2023 CO2 [Moles/Vol] 23.6 mmol/L 21.0-31.0 [facility] Chloride [Moles/volume] in S yamilex or PlasmaOrdered By: Rufus Ricks on 03-14-2023 Chloride [Moles/Vol] 101 mmol/L 98-107 [facility] Creatinine [Mass/volume] in Serum or PlasmaOrdered By: Rufus Ricks on 03-14-2023 Creatinine [Mass/Vol] 0.70 mg/dL 0.60-1.20 [facility] Free T4 (Free Thyroxine)on 1 Free T4 [Mass/Vol] 0.72 ng/dL Normal 0.61-1.12 [facility] Comment on above: Performed By: #### B FINISHED HARDWARE ERECTOR, BMP, PT, PTT, HS TROP, CBC, TSH3, CK #### [facility] [address] Glucose [Mass/volume] in Ser um or PlasmaOrdered By: Rufus Ricks on 03-14-2023 Glucose [Mass/Vol] 84 mg/dL 70-100 [facility] Comment on above: ADA recommended refe rence rangeRandom Glucose Reference Range is dependent on time and content of last meal. Glucose of more than 200 mg/dL in a nonstressed, ambulatory subject supports the diagnosis of Diabetes Mellitus. No Panel InformationOrdered By: Rufus Remington on 03-14-2023 Estimated GFR (CKD-EPI) > 60.0 mL/Min [facility] Creatinine Clearance (Chem 48.88 [facility] Potassium [Moles/volume] in Serum or PlasmaOrdered By: [facility] on 03-14-2023 Potassium [Moles/Vol] 4.4 mmol/L 3.5-5.1 [facility] Serum or plasma anion gap de terminationOrdered By: Rufus Remington on 03-14-2023 Anion gap [Moles/Vol] 9.8 mmol/L 6.0-15.0 [facility] Sodium [Moles/volume] in Ser um or PlasmaOrdered By: Rufus Remington on 03-14-2023 Sodium [Moles/Vol] 130 mmol/L 136-145 [facility] Thyroid Stimulating Hormoneo n 03-14-2023 TSH Qn 0.04 m[IU]/L Low 0.45-5.33 [facility] Comment on above: Result Comment: PERF ORMED BY: [facility] [address] [place] [address] PATHOLOGIST MANAGER UNION RAQUEL LOPEZ M.D. Performed By: #### B FINISHED HARDWARE ERECTOR, BMP, PT, PTT, HS TROP, CBC, TSH3, CK #### [facility] [address] Thyrotropin [Units/volume] i n Serum or PlasmaOrdered By: Rufus Ricks on 03-14-2023 TSH Qn 0.04 m[IU]/L 0.45-5.33 [facility] Thyroxine (T4) free [Mass/vo lume] in Serum or PlasmaOrdered By: Rufus Ricks on 03-14-2023 Free T4 [Mass/Vol] 0.72 ng/dL 0.61-1.12 [facility] Triiodothyronine (T3) Freeon 03-14-2023 Triiodothyronine (T3) Free 2.85 pg/mL Normal 2.50-3.90 [facility] Comment on above: Result Comment: PERF ORMED BY: [facility] [address] [place] [address] PATHOLOGIST MANAGER UNION RAQUEL LOPEZ M.D. Performed By: #### B FINISHED HARDWARE ERECTOR, BMP, PT, PTT, HS TROP, CBC, TSH3, CK #### [facility] [address] [place] [address] [place] Triiodothyronine (T3) Free [ Mass/volume] in Serum or PlasmaOrdered By: Rufus Ricks on 03-14-2023 Free T3 [Mass/Vol] 2.85 pg/mL 2.50-3.90 [facility] Urea nitrogen [Mass/volume] in Serum or PlasmaOrdered By: Rufus Ricks on 03-14-2023 Urea nitrogen [Mass/Vol] 8 mg/dL 7-25 [facility] Basic Metabolic Panelon Anion gap [Moles/Vol] 13.4 mmol/L Normal 6.0-15.0 [facility] Comment on above: Performed By: #### B FINISHED HARDWARE ERECTOR, BMP, PT, PTT, HS TROP, CBC, TSH3, CK #### [facility] [address] [place] [id number] [facility] Calcium [Mass/Vol] 9.1 mg/dL Normal 8.6-10.3 [facility] Comment on above: Performed By: #### B FINISHED HARDWARE ERECTOR, BMP, PT, PTT, HS TROP, CBC, TSH3, CK #### [facility] [address] Chloride [Moles/Vol] 93 mmol/L Low 98-107 [facility] Comment on above: Performed By: #### B FINISHED HARDWARE ERECTOR, BMP, PT, PTT, HS TROP, CBC, TSH3, CK #### [facility] [address] CO2 [Moles/Vol] 25.0 mmol/L Normal 21.0-31.0 [facility] Comment on above: Performed By: #### B FINISHED HARDWARE ERECTOR, BMP, PT, PTT, HS TROP, CBC, TSH3, CK #### [facility] [address] Creatinine [Mass/Vol] 0.88 mg/dL Normal 0.60-1.20 [facility] Comment on above: Performed By: #### B FINISHED HARDWARE ERECTOR, BMP, PT, PTT, HS TROP, CBC, TSH3, CK #### [address] Creatinine Clr Calc Pharmacy 44.[address] [facility] Comment on above: Result Comment: PERF ORMED BY: [place] [address] PATHOLOGIST MANAGER UNION RAQUEL LOPEZ M.D. Performed By: #### B FINISHED HARDWARE ERECTOR, BMP, PT, PTT, HS TROP, CBC, TSH3, CK #### [address] GFR/1.73 sq M.predicted MDRD (S/P/Bld) [Vol rate/Area] mL/min/{1.73_m2} [facility] Comment on above: Performed By: #### B FINISHED HARDWARE ERECTOR, BMP, PT, PTT, HS TROP, CBC, TSH3, CK #### [facility] [address] Glucose [Mass/Vol] 97 mg/dL Normal 70-100 [facility] Comment on above: Result Comment: [facility] Glucose Reference Range is dependent on time and content of last meal. Glucose of more than 200 mg/dL in a nonstressed, ambulatory subject supports the diagnosis of Diabetes Mellitus. ADA recommended reference range Performed By: #### B FINISHED HARDWARE ERECTOR, BMP, PT, PTT, HS TROP, CBC, TSH3, CK #### [facility] [address] Potassium [Moles/Vol] 4.4 mmol/L Normal 3.5-5.1 [facility] Comment on above: Performed By: #### B FINISHED HARDWARE ERECTOR, BMP, PT, PTT, HS TROP, CBC, TSH3, CK #### [facility] [address] Sodium [Moles/Vol] 127 mmol/L Low 136-145 [facility] Comment on above: Performed By: #### B FINISHED HARDWARE ERECTOR, BMP, PT, PTT, HS TROP, CBC, TSH3, CK #### [facility] [address] Urea nitrogen [Mass/Vol] 9 mg/dL Normal 7-25 [facility] Comment on above: Performed By: #### B FINISHED HARDWARE ERECTOR, BMP, PT, PTT, HS TROP, CBC, TSH3, CK #### [facility] [address] Activated partial thrombopla stin time (aPTT) in platelet poor plasma by coagulation aOrdered By: Hunter Dhillon on 03-12-2023 aPTT Coag (PPP) [Time] 26.1 s 25.1-36.5 [facility] Comment on above: A hematocrit value g reater than 55% may lead to inaccurate results in coagulation testing. Patients having hematocrit values >55% require a special collection tube for coagulation studies. Please contact the laboratory at [phone] for redraw instructions. Alanine aminotransferase [En zymatic activity/volume] in Serum or PlasmaOrdered By: Hunter Dhillon on 03-12-2023 ALT [Catalytic activity/Vol] 14 U/L 7-52 [facility] Albumin [Mass/volume] in Ser um or Plasma by Bromocresol green (BCG) dye binding methoOrdered By: Hunter Dhillon on 03-12-2023 Albumin BCG dye [Mass/Vol] 4.1 g/dL 3.5-5.7 [facility] Alkaline phosphatase [Enzyma tic activity/volume] in Serum or PlasmaOrdered By: Hunter Dhiloln on 03-12-2023 ALP [Catalytic activity/Vol] 40 U/L 34-104 [facility] Aspartate aminotransferase [ Enzymatic activity/volume] in Serum or PlasmaOrdered By: Hunter Dhillon on 03-12-2023 AST [Catalytic activity/Vol] 15 U/L 13-39 [facility] Automated erythrocytes count in urine sediment (number/area)Ordered By: Hunter Dhillon on 03-12-2023 RBC Auto (Urine sed) [#/Area] None seen [HPF] 0-4 [facility] Automated leukocytes count i n urine sediment (number/area)Ordered By: Hunter Dhillon on 03-12-2023 WBC Auto (Urine sed) [#/Area] 5-9 [HPF] 0-4 [facility] B-Type Natriuretic Peptideon 03-12-2023 Natriuretic peptide B (Bld) [Mass/Vol] 83.0 pg/mL Normal 5-100 [facility] Comment on above: Result Comment: PERF ORMED BY: [place] [address] PATHOLOGIST MANAGER UNION RAQUEL LOPEZ M.D. Performed By: #### B FINISHED HARDWARE ERECTOR, BMP, PT, PTT, HS TROP, CBC, TSH3, CK #### [facility] [address] Basic Metabolic Panelon Anion gap [Moles/Vol] 13.3 mmol/L Normal 6.0-15.0 [facility] Comment on above: Performed By: #### B FINISHED HARDWARE ERECTOR, BMP, PT, PTT, HS TROP, CBC, TSH3, CK #### [facility] [address] Calcium [Mass/Vol] 9.2 mg/dL Normal 8.6-10.3 [facility] Comment on above: Performed By: #### B FINISHED HARDWARE ERECTOR, BMP, PT, PTT, HS TROP, CBC, TSH3, CK #### [facility] [address] Chloride [Moles/Vol] 98 mmol/L Normal 98-107 [facility] Comment on above: Performed By: #### B FINISHED HARDWARE ERECTOR, BMP, PT, PTT, HS TROP, CBC, TSH3, CK #### [facility] [address] CO2 [Moles/Vol] 21.2 mmol/L Normal 21.0-31.0 [facility] Comment on above: Performed By: #### B FINISHED HARDWARE ERECTOR, BMP, PT, PTT, HS TROP, CBC, TSH3, CK #### [facility] [address] Creatinine [Mass/Vol] 0.92 mg/dL Normal 0.60-1.20 [facility] Comment on above: Performed By: #### B FINISHED HARDWARE ERECTOR, BMP, PT, PTT, HS TROP, CBC, TSH3, CK #### [facility] [address] Creatinine Clr Calc Pharmacy 41.[address] [facility] Comment on above: Performed By: #### B FINISHED HARDWARE ERECTOR, BMP, PT, PTT, HS TROP, CBC, TSH3, CK #### [facility] [address] GFR/1.73 sq M.predicted MDRD (S/P/Bld) [Vol rate/Area] mL/min/{1.73_m2} [facility] Comment on above: Performed By: #### B FINISHED HARDWARE ERECTOR, BMP, PT, PTT, HS TROP, CBC, TSH3, CK #### [facility] [address] Glucose [Mass/Vol] 87 mg/dL Normal 70-100 [facility] Comment on above: Result Comment: [place] Glucose Reference Range is dependent on time and content of last meal. Glucose of more than 200 mg/dL in a nonstressed, ambulatory subject supports the diagnosis of Diabetes Mellitus. ADA recommended reference range Performed By: #### B FINISHED HARDWARE ERECTOR, BMP, PT, PTT, HS TROP, CBC, TSH3, CK #### [facility] [address] Potassium [Moles/Vol] 4.5 mmol/L Normal 3.5-5.1 [facility] Comment on above: Performed By: #### B FINISHED HARDWARE ERECTOR, BMP, PT, PTT, HS TROP, CBC, TSH3, CK #### [facility] [address] Sodium [Moles/Vol] 128 mmol/L Low 136-145 [facility] Comment on above: Performed By: #### B FINISHED HARDWARE ERECTOR, BMP, PT, PTT, HS TROP, CBC, TSH3, CK #### [facility] [address] Urea nitrogen [Mass/Vol] 11 mg/dL Normal 7-25 [facility] Comment on above: Performed By: #### B FINISHED HARDWARE ERECTOR, BMP, PT, PTT, HS TROP, CBC, TSH3, CK #### [facility] [address] Basophils Auto (Bld) [#/Vol] Ordered By: Hunter Dhillon on 03-12-2023 Basophils (Bld) [#/Vol] 0.0 10*3/uL 0.0-0.2 [facility] Basophils/100 WBC Auto (Bld) Ordered By: Hunter Dhillon on 03-12-2023 Basophils/100 WBC (Bld) 0.4 % . [facility] Bilirubin Auto test strip Ql (U)Ordered By: Hunter Dhillon on 03-12-2023 Bilirubin Ql (U) Negative Negative [facility] Bilirubin.direct [Mass/volum e] in Serum or PlasmaOrdered By: Hunter Dhillon on 03-12-2023 Bilirubin.direct [Mass/Vol] 0.10 mg/dL 0.03-0.18 [facility] Bilirubin.total [Mass/volume ] in Serum or PlasmaOrdered By: Hunter Dhillon on 03-12-2023 Bilirubin [Mass/Vol] 0.4 mg/dL 0.3-1.0 [facility] Calcium [Mass/volume] in Ser um or PlasmaOrdered By: Hunter Dhillon on 03-12-2023 Calcium [Mass/Vol] 9.2 mg/dL 8.6-10.3 [facility] Carbon dioxide, total [Moles /volume] in Serum or PlasmaOrdered By: Hunter Dhillon on 03-12-2023 CO2 [Moles/Vol] 21.2 mmol/L 21.0-31.0 [facility] Chloride [Moles/volume] in S yamilex or PlasmaOrdered By: Hunter Dhillon on 03-12-2023 Chloride [Moles/Vol] 98 mmol/L 98-107 [facility] Complete Blood Count Auto Di ffon 03-12-2023 Basophils (Bld) [#/Vol] 0.0 10*3/uL Normal 0.0-0.2 [facility] Comment on above: Result Comment: PERF ORMED BY: [place] [address] PATHOLOGIST MANAGER UNION RAQUEL LOPEZ M.D. Performed By: #### B FINISHED HARDWARE ERECTOR, BMP, PT, PTT, HS TROP, CBC, TSH3, CK #### [address] Basophils/100 WBC (Bld) 0.4 % Normal . [facility] Comment on above: Performed By: #### B FINISHED HARDWARE ERECTOR, BMP, PT, PTT, HS TROP, CBC, TSH3, CK #### [address] Eosinophils (Bld) [#/Vol] 0.2 10*3/uL Normal 0.0-0.45 [facility] Comment on above: Performed By: #### B FINISHED HARDWARE ERECTOR, BMP, PT, PTT, HS TROP, CBC, TSH3, CK #### [facility] [address] Eosinophils/100 WBC (Bld) 2.0 % Normal . [facility] Comment on above: Performed By: #### B FINISHED HARDWARE ERECTOR, BMP, PT, PTT, HS TROP, CBC, TSH3, CK #### [address] Erythrocyte distribution width (RBC) [Ratio] 12.6 % Normal 11.9-15.3 [facility] Comment on above: Performed By: #### B FINISHED HARDWARE ERECTOR, BMP, PT, PTT, HS TROP, CBC, TSH3, CK #### [address] Hematocrit (Bld) [Volume fraction] 35.5 % Normal 34.0-46.4 [facility] Comment on above: Performed By: #### B FINISHED HARDWARE ERECTOR, BMP, PT, PTT, HS TROP, CBC, TSH3, CK #### [address] Hemoglobin (Bld) [Mass/Vol] 12.4 g/dL Normal 11.8-15.4 [facility] Comment on above: Performed By: #### B FINISHED HARDWARE ERECTOR, BMP, PT, PTT, HS TROP, CBC, TSH3, CK #### [address] Lymphocytes (Bld) [#/Vol] 1.2 10*3/uL Normal 1.00-4.8 [facility] Comment on above: Performed By: #### B FINISHED HARDWARE ERECTOR, BMP, PT, PTT, HS TROP, CBC, TSH3, CK #### [address] Lymphocytes/100 WBC (Bld) 13.2 % Normal . [facility] Comment on above: Performed By: #### B FINISHED HARDWARE ERECTOR, BMP, PT, PTT, HS TROP, CBC, TSH3, CK #### [address] MCH (RBC) [Entitic mass] 31.9 pg Normal 24.7-34.3 [facility] Comment on above: Performed By: #### B FINISHED HARDWARE ERECTOR, BMP, PT, PTT, HS TROP, CBC, TSH3, CK #### [address] MCV (RBC) [Entitic vol] 91.8 fL Normal 80-100 [facility] Comment on above: Performed By: #### B FINISHED HARDWARE ERECTOR, BMP, PT, PTT, HS TROP, CBC, TSH3, CK #### [address] [place] [address] [place] Mean Corpuscular HGB Conc 34.7 g/dL Normal 32.0-35.0 [facility] Comment on above: Performed By: #### B FINISHED HARDWARE ERECTOR, BMP, PT, PTT, HS TROP, CBC, TSH3, CK #### [facility] [address] Monocytes (Bld) [#/Vol] 0.5 10*3/uL Normal 0.0-0.8 [facility] Comment on above: Performed By: #### B FINISHED HARDWARE ERECTOR, BMP, PT, PTT, HS TROP, CBC, TSH3, CK #### [address] Monocytes/100 WBC (Bld) 17.50 % Normal 0.00-20.00 [facility] Comment on above: Performed By: #### B FINISHED HARDWARE ERECTOR, BMP, PT, PTT, HS TROP, CBC, TSH3, CK #### [address] Monocytes/100 WBC (Bld) 5.1 % Normal . [facility] Comment on above: Performed By: #### B FINISHED HARDWARE ERECTOR, BMP, PT, PTT, HS TROP, CBC, TSH3, CK #### [address] Neutrophils (Bld) [#/Vol] 7.0 10*3/uL Normal 1.8-7.7 [facility] Comment on above: Performed By: #### B FINISHED HARDWARE ERECTOR, BMP, PT, PTT, HS TROP, CBC, TSH3, CK #### [place] [address] [place] Neutrophils/100 WBC (Bld) 79.3 % Normal . [facility] Comment on above: Performed By: #### B FINISHED HARDWARE ERECTOR, BMP, PT, PTT, HS TROP, CBC, TSH3, CK #### [address] NRBC% 0.0 /100{WBC} Normal 0-0.5 [facility] Comment on above: Performed By: #### B FINISHED HARDWARE ERECTOR, BMP, PT, PTT, HS TROP, CBC, TSH3, CK #### [facility] [address] Platelet mean volume (Bld) [Entitic vol] 7.2 fL Normal 6.3-10.7 [facility] Comment on above: Performed By: #### B FINISHED HARDWARE ERECTOR, BMP, PT, PTT, HS TROP, CBC, TSH3, CK #### [facility] [address] Platelets (Bld) [#/Vol] 237 10*3/uL Normal 150-450 [facility] Comment on above: Performed By: #### B FINISHED HARDWARE ERECTOR, BMP, PT, PTT, HS TROP, CBC, TSH3, CK #### [address] RBC (Bld) [#/Vol] 3.87 10*6/uL Normal 3.60-5.00 [facility] Comment on above: Performed By: #### B FINISHED HARDWARE ERECTOR, BMP, PT, PTT, HS TROP, CBC, TSH3, CK #### [address] WBC (Bld) [#/Vol] 8.9 10*3/uL Normal 3.8-11.6 [facility] Comment on above: Performed By: #### B FINISHED HARDWARE ERECTOR, BMP, PT, PTT, HS TROP, CBC, TSH3, CK #### [facility] [address] [place] [address] Creatine Kinaseon 03-12-2023 CK [Catalytic activity/Vol] 20 U/L Low 30223 [facility] Comment on above: Performed By: #### B FINISHED HARDWARE ERECTOR, BMP, PT, PTT, HS TROP, CBC, TSH3, CK #### [address] Creatine kinase [Enzymatic a ctivity/volume] in Serum or PlasmaOrdered By: Hunter Dhillon on 03-12-2023 CK [Catalytic activity/Vol] 20 U/L 30-223 [facility] Creatinine [Mass/volume] in Serum or PlasmaOrdered By: Hunter Dhillon on 03-12-2023 Creatinine [Mass/Vol] 0.92 mg/dL 0.60-1.20 [facility]ir [facility] Dipstick and Microscopicon 1 Appearance (U) Slightly Cloudy Critically abnormal Clear [facility] Comment on above: Order Comment: Name Collection Type:: Clean-Voided Midstream Performed By: #### A DDONUAPLUS #### [facility] [address] [place] [address] [place] Bacteria,Urine 1+ High None Seen [facility] Comment on above: Order Comment: Name Collection Type:: Clean-Voided Midstream Result Comment: PERF ORMED BY: [place] [address] PATHOLOGIST MANAGER UNION RAQUEL LOPEZ M.D. Performed By: #### A DDONUAPLUS #### [place] [address] [place] Bilirubin,Urine Negative Normal Negative [facility] Comment on above: Order Comment: Name Collection Type:: Clean-Voided Midstream Performed By: #### A DDONUAPLUS #### [facility] [address] [place] [address] [place] Color (U) Yellow Normal Yellow [facility] Comment on above: Order Comment: Name Collection Type:: Clean-Voided Midstream Performed By: #### A DDONUAPLUS #### [facility] [address] [place] [address] [place] Glucose Ql (U) Normal Normal Normal [facility] Comment on above: Order Comment: Name Collection Type:: Clean-Voided Midstream Performed By: #### A DDONUAPLUS #### [facility] [address] [place] [address] [place] Ketones Ql (U) Negative Normal Negative [facility] Comment on above: Order Comment: Name Collection Type:: Clean-Voided Midstream Performed By: #### A DDONUAPLUS #### [place] [address] [place] Leukocyte esterase Test strip Ql (U) 3+ High Negative [facility] Comment on above: Order Comment: Name Collection Type:: Clean-Voided Midstream Performed By: #### A DDONUAPLUS #### [facility] [address] [place] [address] [place] Nitrite,Urine Negative Normal Negative [facility] Comment on above: Order Comment: Name Collection Type:: Clean-Voided Midstream Performed By: #### A DDONUAPLUS #### [facility] [address] [place] [address] [place] Occult Blood,Urine Negative Normal Negative [facility] Comment on above: Order Comment: Name Collection Type:: Clean-Voided Midstream Result Comment: PERF ORMED BY: [place] [address] PATHOLOGIST MANAGER UNION RAQUEL LOPEZ M.D. Performed By: #### A DDONUAPLUS #### [facility] [address] [place] [address] pH (U) 7.5 [pH] Normal 5.0-9.0 [facility] Comment on above: Order Comment: Name Collection Type:: Clean-Voided Midstream Performed By: #### A DDONUAPLUS #### [facility] [address] [place] [address] [place] Protein,Urine Negative Normal Negative [facility] Comment on above: Order Comment: Name Collection Type:: Clean-Voided Midstream Performed By: #### A DDONUAPLUS #### [facility] [address] [place] [address] [place] RBC,Urine None Seen Normal 0-4 [facility] Comment on above: Order Comment: Name Collection Type:: Clean-Voided Midstream Performed By: #### A DDONUAPLUS #### [facility] [address] [place] [address] [place] Specificy [place],Urine 1.010 Normal 1.001-1.03 0 [facility] Comment on above: Order Comment: Name Collection Type:: Clean-Voided Midstream Performed By: #### A DDONUAPLUS #### [facility] [address] [place] [address] [place] Squamous Epithelial Cell,Urine 5-9 High 0-2 [facility] Comment on above: Order Comment: Name Collection Type:: Clean-Voided Midstream Performed By: #### A DDONUAPLUS #### [facility] [address] [place] [address] Urobilinogen,Urine Normal Normal Normal [facility] Comment on above: Order Comment: Name Collection Type:: Clean-Voided Midstream Performed By: #### A DDONUAPLUS #### [facility] [address] [place] [address] WBC,Urine 5-9 High 0-4 [facility] Comment on above: Order Comment: Name Collection Type:: Clean-Voided Midstream Performed By: #### A DDONUAPLUS #### [address] ECG 12 lead ECGon 03-12-2023 ECG 12 lead ECG [facility] [place] [address] [place] [address] Electrocardiograph Report Signed Patient: Steven Harding MR#: [id number] 1 : 1940 Acct:[id number] Age/Sex: 83 / F ADM Date: 03/12/23 Loc: Room: [address] [place] [address] Type: ADM INOo Attending Dr: Sima Hdz [...] longer present Confirmed by Zane Michael DO ([id number]) on 03/13/2023 8:21:27 AM Referred By: Electronically Signed By:Zane Michael DO Transcribed By: MUS Signed By Zane Michael DO 3 0821 Normal [facility] Eosinophils Auto (Bld) [#/Vo l]Ordered By: Hunter Dhillon on 03-12-2023 Eosinophils (Bld) [#/Vol] 0.2 10*3/uL 0.0-0.45 [facility] Eosinophils/100 WBC Auto (Bl d)Ordered By: Hunter Dhillon on 03-12-2023 Eosinophils/100 WBC (Bld) 2.0 % . [facility] Erythrocyte distribution wid th Auto (RBC) [Ratio]Ordered By: Hunter Dhillon on 03-12-2023 Erythrocyte distribution width (RBC) [Ratio] 12.6 % 11.9-15.3 [facility] Globulin Calc (S) [Mass/Vol] Ordered By: Hunter Dhillon on 03-12-2023 Globulin (S) [Mass/Vol] 2.2 g/dL [facility] Glucose [Mass/volume] in Ser um or PlasmaOrdered By: Hunter Dhillon on 03-12-2023 Glucose [Mass/Vol] 87 mg/dL 70-100 [facility] Comment on above: ADA recommended refe rence rangeRandom Glucose Reference Range is dependent on time and content of last meal. Glucose of more than 200 mg/dL in a nonstressed, ambulatory subject supports the diagnosis of Diabetes Mellitus. Hematocrit Auto (Bld) [Volum e fraction]Ordered By: Hunter Dhillon on 03-12-2023 Hematocrit (Bld) [Volume fraction] 35.5 % 34.0-46.4 [facility] Hemoglobin [Mass/volume] in BloodOrdered By: Hunter Dhillon on 03-12-2023 Hemoglobin (Bld) [Mass/Vol] 12.4 g/dL 11.8-15.4 [facility] Hepatic Panelon 03-12-2023 Albumin [Mass/Vol] 4.1 g/dL Normal 3.5-5.7 [facility] Comment on above: Performed By: #### B FINISHED HARDWARE ERECTOR, BMP, PT, PTT, HS TROP, CBC, TSH3, CK #### [facility] [address] Albumin/Globulin [Mass ratio] 1.9 {ratio} Normal [facility] Comment on above: Performed By: #### B FINISHED HARDWARE ERECTOR, BMP, PT, PTT, HS TROP, CBC, TSH3, CK #### [facility] [address] [place] [address] ALP [Catalytic activity/Vol] 40 U/L Normal 34-104 [facility] Comment on above: Performed By: #### B FINISHED HARDWARE ERECTOR, BMP, PT, PTT, HS TROP, CBC, TSH3, CK #### [address] ALT [Catalytic activity/Vol] 14 U/L Normal 7-52 [facility] Comment on above: Performed By: #### B FINISHED HARDWARE ERECTOR, BMP, PT, PTT, HS TROP, CBC, TSH3, CK #### [address] AST [Catalytic activity/Vol] 15 U/L Normal 13-39 [facility] Comment on above: Performed By: #### B FINISHED HARDWARE ERECTOR, BMP, PT, PTT, HS TROP, CBC, TSH3, CK #### [address] Bilirubin [Mass/Vol] 0.4 mg/dL Normal 0.3-1.0 [facility] Comment on above: Performed By: #### B FINISHED HARDWARE ERECTOR, BMP, PT, PTT, HS TROP, CBC, TSH3, CK #### [address] Bilirubin,Indirect 0.3 mg/dL Normal [facility] Comment on above: Performed By: #### B FINISHED HARDWARE ERECTOR, BMP, PT, PTT, HS TROP, CBC, TSH3, CK #### [address] Bilirubin.indirect [Mass/Vol] 0.10 mg/dL Normal 0.03-0.18 [facility] Comment on above: Performed By: #### B FINISHED HARDWARE ERECTOR, BMP, PT, PTT, HS TROP, CBC, TSH3, CK #### [address] Globulin (S) [Mass/Vol] 2.2 g/dL Normal [facility] Comment on above: Performed By: #### B FINISHED HARDWARE ERECTOR, BMP, PT, PTT, HS TROP, CBC, TSH3, CK #### [facility] [address] [place] [address] [place] Protein [Mass/Vol] 6.3 g/dL Low 6.4-8.9 [facility] Comment on above: Performed By: #### B FINISHED HARDWARE ERECTOR, BMP, PT, PTT, HS TROP, CBC, TSH3, CK #### [facility] [address] [place] [address] [place] INR in Platelet poor plasma by Coagulation assayOrdered By: Hunter Dhillon on 03-12-2023 INR Coag (PPP) [Relative time] 0.9 {INR} [facility] Comment on above: INR Therapeutic Rang e [...] 03-12-2023 Ketones (U) [Mass/Vol] Negative Negative [facility] Leukocytes [#/volume] correc jazmyne for nucleated erythrocytes in Blood by Automated counOrdered By: Hunter Dhillon on 03-12-2023 WBC corrected for nucl RBC Auto (Bld) [#/Vol] 8.9 10*3/uL 3.8-11.6 [facility] Lymphocytes Auto (Bld) [#/Vo l]Ordered By: Hunter Dhillon on 03-12-2023 Lymphocytes (Bld) [#/Vol] 1.2 10*3/uL 1.00-4.8 [facility] Lymphocytes/100 WBC Auto (Bl d)Ordered By: Hunter Dhillon on 03-12-2023 Lymphocytes/100 WBC (Bld) 13.2 % . [facility] MCH Auto (RBC) [Entitic mass ]Ordered By: Hunter Dhillon on 03-12-2023 MCH (RBC) [Entitic mass] 31.9 pg 24.7-34.3 [facility] MCHC Auto (RBC) [Mass/Vol]Or dered By: Hunter Dhillon on 03-12-2023 MCHC (RBC) [Mass/Vol] 34.7 g/dL 32.0-35.0 [facility] MCV Auto (RBC) [Entitic vol] Ordered By: Hunter Dhillon on 03-12-2023 MCV (RBC) [Entitic vol] 91.8 fL 80-100 [facility] Monocyte distribution width [Entitic volume] in Blood by AutomatedOrdered By: Hunter Dhillon on 03-12-2023 Monocyte distribution width Auto (Bld) [Entitic vol] 17.50 % 0.00-20.00 [facility] Monocytes Auto (Bld) [#/Vol] Ordered By: Hunter Dhillon on 03-12-2023 Monocytes (Bld) [#/Vol] 0.5 10*3/uL 0.0-0.8 [facility] Monocytes/100 WBC Auto (Bld) Ordered By: Hunter Dhillon on 03-12-2023 Monocytes/100 WBC (Bld) 5.1 % . [facility] Natriuretic peptide B [Mass/ Vol]Ordered By: Hunter Dhillon on 03-12-2023 Natriuretic peptide B (Bld) [Mass/Vol] 83.0 pg/mL 5-100 [facility] Neutrophils Auto (Bld) [#/Vo l]Ordered By: Hunter Dhillon on 03-12-2023 Neutrophils (Bld) [#/Vol] 7.0 10*3/uL 1.8-7.7 [facility] Neutrophils/100 WBC Auto (Bl d)Ordered By: Hunter Dhillon on 03-12-2023 Neutrophils/100 WBC (Bld) 79.3 % . [facility] No Panel InformationOrdered By: Hunter Dhillon on 03-12-2023 Estimated GFR (CKD-EPI) > 60.0 mL/Min [facility] Creatinine Clearance (Chem 41.99 [facility] Nucleated erythrocytes [Pres ence] in Blood by Automated countOrdered By: Hunter Dhillon on 03-12-2023 Nucleated RBC Auto Ql (Bld) 0.0 /100{WBC} 0-0.5 [facility] Partial Thromboplastin Timeo n 10-01-2023 aPTT Coag (Bld) [Time] 26.1 s Normal 25.1-36.5 [facility] Comment on above: Result Comment: A he matocrit value greater than 55% may lead to inaccurate results in coagulation testing. Patients having hematocrit values >55% require a special collection tube for coagulation studies. Please contact the laboratory at [phone] for redraw instructions. PERFORMED BY: [facility] [address] [place] [address] PATHOLOGIST MANAGER UNION RAQUEL LOPEZ M.D. Performed By: #### B FINISHED HARDWARE ERECTOR, BMP, PT, PTT, HS TROP, CBC, TSH3, CK #### [place] [id number] [facility] Platelet mean volume Auto (B ld) [Entitic vol]Ordered By: Hunter Dhillon on 03-12-2023 Platelet mean volume (Bld) [Entitic vol] 7.2 fL 6.3-10.7 [facility] Platelets Auto (Bld) [#/Vol] Ordered By: Hunter Dhillon on 03-12-2023 Platelets (Bld) [#/Vol] 237 10*3/uL 150-450 [facility] Potassium [Moles/volume] in Serum or PlasmaOrdered By: Hunter Dhillon on 03-12-2023 Potassium [Moles/Vol] 4.5 mmol/L 3.5-5.1 [facility] Protein Auto test strip (U) [Mass/Vol]Ordered By: Hunter Dhillon on 03-12-2023 Protein (U) [Mass/Vol] Negative Negative [facility] Protein [Mass/volume] in Ser um or PlasmaOrdered By: Hunter Dhillon on 03-12-2023 Protein [Mass/Vol] 6.3 g/dL 6.4-8.9 [facility] Prothrombin Time INRon 03-12 INR Coag (PPP) [Relative time] 0.9 {INR} Normal [facility] Comment on above: Result Comment: INR Therapeutic [...] 3 - 4.5 Performed By: #### B FINISHED HARDWARE ERECTOR, BMP, PT, PTT, HS TROP, CBC, TSH3, CK #### [facility] [address] [place] [id number] [facility] PT Coag (PPP) [Time] 11.3 s Normal 9.0-12.9 [facility] Comment on above: Result Comment: A he matocrit value greater than 55% may lead to inaccurate results in coagulation testing. Patients having hematocrit values >55% require a special collection tube for coagulation studies. Please contact the laboratory at [phone] for redraw instructions. Performed By: #### B FINISHED HARDWARE ERECTOR, BMP, PT, PTT, HS TROP, CBC, TSH3, CK #### [facility] [address] [place] [address] [facility] Prothrombin time (PT)Ordered By: Hunter Dhillon on 03-12-2023 PT Coag (PPP) [Time] 11.3 s 9.0-12.9 [facility] Comment on above: A hematocrit value g reater than 55% may lead to inaccurate results in coagulation testing. Patients having hematocrit values >55% require a special collection tube for coagulation studies. Please contact the laboratory at [phone] for redraw instructions. RBC Auto (Bld) [#/Vol]Ordere d By: Hunter Dhillon on 03-12-2023 RBC (Bld) [#/Vol] 3.87 10*6/uL 3.60-5.00 [facility] Serum or plasma albumin/glob ulin mass ratioOrdered By: Hunter Dhillon on 03-12-2023 Albumin/Globulin [Mass ratio] 1.9 {ratio} [facility] Serum or plasma anion gap de terminationOrdered By: Hunter Dhillon on 03-12-2023 Anion gap [Moles/Vol] 13.3 mmol/L 6.0-15.0 [facility] Serum or plasma non-glucuron idated bilirubin measurement (mass/volume)Ordered By: Hunter Dhillon on 03-12-2023 Bilirubin.indirect [Mass/Vol] 0.3 mg/dL [facility] Sodium [Moles/volume] in Ser um or PlasmaOrdered By: Hunter Dhillon on 03-12-2023 Sodium [Moles/Vol] 128 mmol/L 136-145 [facility] Squamous epithelial cells de tection in urine sediment by light microscopyOrdered By: Hunter Dhillon on 03-12-2023 Epithelial cells.squamous LM Ql (Urine sed) 5-9 [HPF] 0-2 [facility] Thyroid Stimulating Hormoneo n 03-12-2023 TSH Qn 0.01 m[IU]/L Low 0.45-5.33 [facility] Comment on above: Result Comment: PERF ORMED BY: [place] [address] PATHOLOGIST MANAGER UNION RAQUEL LOPEZ M.D. Performed By: #### B FINISHED HARDWARE ERECTOR, BMP, PT, PTT, HS TROP, CBC, TSH3, CK #### [facility] [address] [place] [address] Thyrotropin [Units/volume] i n Serum or PlasmaOrdered By: Hunter Dhillon on 03-12-2023 TSH Qn 0.01 m[IU]/L 0.45-5.33 [facility] Troponin I High Sensitivityo n 03-12-2023 Troponin I High Sensitivity 5.6 pg/mL Normal 0.0-15.0 [facility] Comment on above: Result Comment: PERF ORMED BY: [place] [address] PATHOLOGIST MANAGER UNION RAQUEL LOPEZ M.D. Performed By: #### B FINISHED HARDWARE ERECTOR, BMP, PT, PTT, HS TROP, CBC, TSH3, CK #### [facility] [address] [place] [address] [place] Troponin I.cardiac [Mass/vol ume] in Serum or Plasma by Detection limit <= 0.01 ng/Ordered By: Hunter Dhillon on 03-12-2023 Troponin I.cardiac DL <= 0.01 ng/mL [Mass/Vol] 5.6 pg/mL 0.0-15.0 [facility] Urea nitrogen [Mass/volume] in Serum or PlasmaOrdered By: Hunter Dhillon on 03-12-2023 Urea nitrogen [Mass/Vol] 11 mg/dL 7-25 [facility] Urine appearanceOrdered By: Hunter Dhillon on 03-12-2023 Appearance (U) Slightly cloudy Clear [facility] Urine bacteria detection by automated methodOrdered By: Hunter Dhillon on 03-12-2023 Bacteria Auto Ql (U) 1+ None Seen [facility] Urine colorOrdered By: Gera Dhillon on 03-12-2023 Color (U) Yellow Yellow [facility] Urine glucose measurement by automated test strip (mass/volume)Ordered By: Hunter Dhillon on 03-12-2023 Glucose Auto test strip (U) [Mass/Vol] Normal mg/dL Normal [facility] Urine hemoglobin detection b y automated test stripOrdered By: Hunter Dhillon on 03-12-2023 Hemoglobin Auto test strip Ql (U) Negative Negative [facility] Urine leukocyte esterase det ection by automated test stripOrdered By: Hunter Dhillon on 03-12-2023 Leukocyte esterase Auto test strip Ql (U) 3+ Negative [facility] Urine nitrite detection by a utomated test stripOrdered By: Hunter Dhillon on 03-12-2023 Nitrite Auto test strip Ql (U) Negative Negative [facility] Urobilinogen Auto test strip (U) [Mass/Vol]Ordered By: Hunter Dhillon on 03-12-2023 Urobilinogen (U) [Mass/Vol] Normal mg/dL Normal [facility] WBC Auto (Bld) [#/Vol]Ordere d By: Hunter Dhillon on 03-12-2023 WBC (Bld) [#/Vol] 8.9 10*3/uL 3.8-11.6 [facility] pH Auto test strip (U)Ordere d By: Hunter Dhillon on 03-12-2023 pH (U) 1.010 [pH] 1.001-1.03 0 [facility] pH (U) 7.5 [pH] 5.0-9.0 [facility] Basic Metabolic Panelon 09-2 Anion gap [Moles/Vol] 6.6 mmol/L Normal 6.0-15.0 [facility] Comment on above: Performed By: #### B FINISHED HARDWARE ERECTOR, BMP, PT, PTT, HS TROP, CBC, TSH3, CK #### [address] Calcium [Mass/Vol] 8.9 mg/dL Normal 8.6-10.3 [facility] Comment on above: Performed By: #### B FINISHED HARDWARE ERECTOR, BMP, PT, PTT, HS TROP, CBC, TSH3, CK #### [address] Chloride [Moles/Vol] 104 mmol/L Normal 98-107 [facility] Comment on above: Performed By: #### B FINISHED HARDWARE ERECTOR, BMP, PT, PTT, HS TROP, CBC, TSH3, CK #### [address] CO2 [Moles/Vol] 26.8 mmol/L Normal 21.0-31.0 [facility] Comment on above: Performed By: #### B FINISHED HARDWARE ERECTOR, BMP, PT, PTT, HS TROP, CBC, TSH3, CK #### [address] Creatinine [Mass/Vol] 0.83 mg/dL Normal 0.60-1.20 [facility] Comment on above: Performed By: #### B FINISHED HARDWARE ERECTOR, BMP, PT, PTT, HS TROP, CBC, TSH3, CK #### [address] Creatinine Clr Calc Pharmacy 46.94 [facility] Comment on above: Performed By: #### B FINISHED HARDWARE ERECTOR, BMP, PT, PTT, HS TROP, CBC, TSH3, CK #### [address] GFR/1.73 sq M.predicted MDRD (S/P/Bld) [Vol rate/Area] mL/min/{1.73_m2} [facility] Comment on above: Performed By: #### B FINISHED HARDWARE ERECTOR, BMP, PT, PTT, HS TROP, CBC, TSH3, CK #### [facility] [address] Glucose [Mass/Vol] 94 mg/dL Normal 70-100 [facility] Comment on above: Result Comment: [facility] Glucose Reference Range is dependent on time and content of last meal. Glucose of more than 200 mg/dL in a nonstressed, ambulatory subject supports the diagnosis of Diabetes Mellitus. ADA recommended reference range Performed By: #### B FINISHED HARDWARE ERECTOR, BMP, PT, PTT, HS TROP, CBC, TSH3, CK #### [facility] [address] Potassium [Moles/Vol] 4.4 mmol/L Normal 3.5-5.1 [facility] Comment on above: Performed By: #### B FINISHED HARDWARE ERECTOR, BMP, PT, PTT, HS TROP, CBC, TSH3, CK #### [facility] [address] Sodium [Moles/Vol] 133 mmol/L Low 136-145 [facility] Comment on above: Performed By: #### B FINISHED HARDWARE ERECTOR, BMP, PT, PTT, HS TROP, CBC, TSH3, CK #### [facility] [address] Urea nitrogen [Mass/Vol] 8 mg/dL Normal 7-25 [facility] Comment on above: Performed By: #### B FINISHED HARDWARE ERECTOR, BMP, PT, PTT, HS TROP, CBC, TSH3, CK #### [address] Basophils Auto (Bld) [#/Vol] Ordered By: Chukc Chacon on 03-07-2023 Basophils (Bld) [#/Vol] 0.0 10*3/uL 0.0-0.2 [facility] Basophils/100 WBC Auto (Bld) Ordered By: Chuck Chacon on 03-07-2023 Basophils/100 WBC (Bld) 0.7 % . [facility] Calcium [Mass/volume] in Ser um or PlasmaOrdered By: Chuck Chacon on 03-07-2023 Calcium [Mass/Vol] 8.9 mg/dL 8.6-10.3 [facility] Carbon dioxide, total [Moles /volume] in Serum or PlasmaOrdered By: Chuck Chacon on 03-07-2023 CO2 [Moles/Vol] 26.8 mmol/L 21.0-31.0 [facility] Chloride [Moles/volume] in S yamilex or PlasmaOrdered By: Chuck Chacon on 03-07-2023 Chloride [Moles/Vol] 104 mmol/L 98-107 [facility] Complete Blood Count Auto Di ffon 03-07-2023 Basophils (Bld) [#/Vol] 0.0 10*3/uL Normal 0.0-0.2 [facility] Comment on above: Result Comment: PERF ORMED BY: [place] [address] PATHOLOGIST MANAGER [employer] RAQUEL LOPEZ M.D. Performed By: #### B FINISHED HARDWARE ERECTOR, BMP, PT, PTT, HS TROP, CBC, TSH3, CK #### [address] Basophils/100 WBC (Bld) 0.7 % Normal . [facility] Comment on above: Performed By: #### B FINISHED HARDWARE ERECTOR, BMP, PT, PTT, HS TROP, CBC, TSH3, CK #### [address] Eosinophils (Bld) [#/Vol] 0.4 10*3/uL Normal 0.0-0.45 [facility] Comment on above: Performed By: #### B FINISHED HARDWARE ERECTOR, BMP, PT, PTT, HS TROP, CBC, TSH3, CK #### [facility] [address] Eosinophils/100 WBC (Bld) 5.2 % Normal . [facility] Comment on above: Performed By: #### B FINISHED HARDWARE ERECTOR, BMP, PT, PTT, HS TROP, CBC, TSH3, CK #### [address] Erythrocyte distribution width (RBC) [Ratio] 12.8 % Normal 11.9-15.3 [facility] Comment on above: Performed By: #### B FINISHED HARDWARE ERECTOR, BMP, PT, PTT, HS TROP, CBC, TSH3, CK #### [address] Hematocrit (Bld) [Volume fraction] 35.2 % Normal 34.0-46.4 [facility] Comment on above: Performed By: #### B FINISHED HARDWARE ERECTOR, BMP, PT, PTT, HS TROP, CBC, TSH3, CK #### [address] Hemoglobin (Bld) [Mass/Vol] 12.0 g/dL Normal 11.8-15.4 [facility] Comment on above: Performed By: #### B FINISHED HARDWARE ERECTOR, BMP, PT, PTT, HS TROP, CBC, TSH3, CK #### [address] Lymphocytes (Bld) [#/Vol] 1.7 10*3/uL Normal 1.00-4.8 [facility] Comment on above: Performed By: #### B FINISHED HARDWARE ERECTOR, BMP, PT, PTT, HS TROP, CBC, TSH3, CK #### [address] Lymphocytes/100 WBC (Bld) 24.6 % Normal . [facility] Comment on above: Performed By: #### B FINISHED HARDWARE ERECTOR, BMP, PT, PTT, HS TROP, CBC, TSH3, CK #### [address] MCH (RBC) [Entitic mass] 31.6 pg Normal 24.7-34.3 [facility] Comment on above: Performed By: #### B FINISHED HARDWARE ERECTOR, BMP, PT, PTT, HS TROP, CBC, TSH3, CK #### [address] MCV (RBC) [Entitic vol] 92.5 fL Normal 80-100 [facility] Comment on above: Performed By: #### B FINISHED HARDWARE ERECTOR, BMP, PT, PTT, HS TROP, CBC, TSH3, CK #### [address] Mean Corpuscular HGB Conc 34.1 g/dL Normal 32.0-35.0 [facility] Comment on above: Performed By: #### B FINISHED HARDWARE ERECTOR, BMP, PT, PTT, HS TROP, CBC, TSH3, CK #### [address] Monocytes (Bld) [#/Vol] 0.6 10*3/uL Normal 0.0-0.8 [facility] Comment on above: Performed By: #### B FINISHED HARDWARE ERECTOR, BMP, PT, PTT, HS TROP, CBC, TSH3, CK #### [address] Monocytes/100 WBC (Bld) 8.7 % Normal . [facility] Comment on above: Performed By: #### B FINISHED HARDWARE ERECTOR, BMP, PT, PTT, HS TROP, CBC, TSH3, CK #### [address] Neutrophils (Bld) [#/Vol] 4.2 10*3/uL Normal 1.8-7.7 [facility] Comment on above: Performed By: #### B FINISHED HARDWARE ERECTOR, BMP, PT, PTT, HS TROP, CBC, TSH3, CK #### [address] Neutrophils/100 WBC (Bld) 60.8 % Normal . [facility] Comment on above: Performed By: #### B FINISHED HARDWARE ERECTOR, BMP, PT, PTT, HS TROP, CBC, TSH3, CK #### [address] NRBC% 0.0 /100{WBC} Normal 0-0.5 [facility] Comment on above: Performed By: #### B FINISHED HARDWARE ERECTOR, BMP, PT, PTT, HS TROP, CBC, TSH3, CK #### [address] Platelet mean volume (Bld) [Entitic vol] 7.5 fL Normal 6.3-10.7 [facility] Comment on above: Performed By: #### B FINISHED HARDWARE ERECTOR, BMP, PT, PTT, HS TROP, CBC, TSH3, CK #### [facility] [address] Platelets (Bld) [#/Vol] 232 10*3/uL Normal 150-450 [facility] Comment on above: Performed By: #### B FINISHED HARDWARE ERECTOR, BMP, PT, PTT, HS TROP, CBC, TSH3, CK #### [facility] [address] RBC (Bld) [#/Vol] 3.80 10*6/uL Normal 3.60-5.00 [facility] Comment on above: Performed By: #### B FINISHED HARDWARE ERECTOR, BMP, PT, PTT, HS TROP, CBC, TSH3, CK #### [facility] [address] WBC (Bld) [#/Vol] 6.8 10*3/uL Normal 3.8-11.6 [facility] Comment on above: Performed By: #### B FINISHED HARDWARE ERECTOR, BMP, PT, PTT, HS TROP, CBC, TSH3, CK #### [facility] [address] Creatinine [Mass/volume] in Serum or PlasmaOrdered By: Chuck Chacon on 03-07-2023 Creatinine [Mass/Vol] 0.83 mg/dL 0.60-1.20 [facility] Eosinophils Auto (Bld) [#/Vo l]Ordered By: Chuck Chacon on 03-07-2023 Eosinophils (Bld) [#/Vol] 0.4 10*3/uL 0.0-0.45 [facility] Eosinophils/100 WBC Auto (Bl d)Ordered By: Chuck Chacon on 03-07-2023 Eosinophils/100 WBC (Bld) 5.2 % . [facility] Erythrocyte distribution wid th Auto (RBC) [Ratio]Ordered By: Chuck Chacon on 03-07-2023 Erythrocyte distribution width (RBC) [Ratio] 12.8 % 11.9-15.3 [facility] Glucose [Mass/volume] in Ser um or PlasmaOrdered By: Chuck Chacon on 03-07-2023 Glucose [Mass/Vol] 94 mg/dL 70-100 [facility] Comment on above: ADA recommended refe rence rangeRandom Glucose Reference Range is dependent on time and content of last meal. Glucose of more than 200 mg/dL in a nonstressed, ambulatory subject supports the diagnosis of Diabetes Mellitus. Hematocrit Auto (Bld) [Volum e fraction]Ordered By: Chuck Chacon on 03-07-2023 Hematocrit (Bld) [Volume fraction] 35.2 % 34.0-46.4 [facility] Hemoglobin [Mass/volume] in BloodOrdered By: Chuck Chacon on 03-07-2023 Hemoglobin (Bld) [Mass/Vol] 12.0 g/dL 11.8-15.4 [facility] Leukocytes [#/volume] correc jazmyne for nucleated erythrocytes in Blood by Automated counOrdered By: Chuck Chacon on 03-07-2023 WBC corrected for nucl RBC Auto (Bld) [#/Vol] 6.8 10*3/uL 3.8-11.6 [facility] Lymphocytes Auto (Bld) [#/Vo l]Ordered By: Chuck Chacon on 03-07-2023 Lymphocytes (Bld) [#/Vol] 1.7 10*3/uL 1.00-4.8 [facility] Lymphocytes/100 WBC Auto (Bl d)Ordered By: Chuck Chacon on 03-07-2023 Lymphocytes/100 WBC (Bld) 24.6 % . [facility] MCH Auto (RBC) [Entitic mass ]Ordered By: Chuck Chacon on 03-07-2023 MCH (RBC) [Entitic mass] 31.6 pg 24.7-34.3 [facility] MCHC Auto (RBC) [Mass/Vol]Or dered By: Chuck Chacon on 03-07-2023 MCHC (RBC) [Mass/Vol] 34.1 g/dL 32.0-35.0 [facility] MCV Auto (RBC) [Entitic vol] Ordered By: Chuck Chacon on 03-07-2023 MCV (RBC) [Entitic vol] 92.5 fL 80-100 [facility] Magnesiumon 03-07-2023 Magnesium [Mass/Vol] 1.4 mg/dL Low 1.9-2.7 [facility] Comment on above: Result Comment: PERF ORMED BY: [facility] [address] [place] [address] PATHOLOGIST MANAGER [employer] RAQUEL LOPEZ M.D. Performed By: #### B FINISHED HARDWARE ERECTOR, BMP, PT, PTT, HS TROP, CBC, TSH3, CK #### [facility] [address] Magnesium [Mass/volume] in S yamilex or PlasmaOrdered By: Chuck Chacon on 03-07-2023 Magnesium [Mass/Vol] 1.4 mg/dL 1.9-2.7 [facility] Monocytes Auto (Bld) [#/Vol] Ordered By: Chuck Chacon on 03-07-2023 Monocytes (Bld) [#/Vol] 0.6 10*3/uL 0.0-0.8 [facility] Monocytes/100 WBC Auto (Bld) Ordered By: Chuck Chacon on 03-07-2023 Monocytes/100 WBC (Bld) 8.7 % . [facility] Neutrophils Auto (Bld) [#/Vo l]Ordered By: Chuck Chacon on 03-07-2023 Neutrophils (Bld) [#/Vol] 4.2 10*3/uL 1.8-7.7 [facility] Neutrophils/100 WBC Auto (Bl d)Ordered By: Chuck Chacon on 03-07-2023 Neutrophils/100 WBC (Bld) 60.8 % . [facility] No Panel InformationOrdered By: Chuck Chacon on 03-07-2023 Estimated GFR (CKD-EPI) > 60.0 mL/Min [facility] Pharmacy Creatinine Clearance (Chem 46.94 [facility] Nucleated erythrocytes [Pres ence] in Blood by Automated countOrdered By: Chuck Chacon on 03-07-2023 Nucleated RBC Auto Ql (Bld) 0.0 /100{WBC} 0-0.5 [facility] Platelet mean volume Auto (B ld) [Entitic vol]Ordered By: Chuck Chacon on 03-07-2023 Platelet mean volume (Bld) [Entitic vol] 7.5 fL 6.3-10.7 [facility] Platelets Auto (Bld) [#/Vol] Ordered By: Chuck Chacon on 03-07-2023 Platelets (Bld) [#/Vol] 232 10*3/uL 150-450 [facility] Potassium [Moles/volume] in Serum or PlasmaOrdered By: Chuck Chacon on 03-07-2023 Potassium [Moles/Vol] 4.4 mmol/L 3.5-5.1 [facility] RBC Auto (Bld) [#/Vol]Ordere d By: Chuck Chacon on 03-07-2023 RBC (Bld) [#/Vol] 3.80 10*6/uL 3.60-5.00 [facility] Serum or plasma anion gap de terminationOrdered By: Chuck Chacon on 03-07-2023 Anion gap [Moles/Vol] 6.6 mmol/L 6.0-15.0 [facility] Sodium [Moles/volume] in Ser um or PlasmaOrdered By: Chuck Chacon on 03-07-2023 Sodium [Moles/Vol] 133 mmol/L 136-145 [facility] Urea nitrogen [Mass/volume] in Serum or PlasmaOrdered By: Chuck Chacon on 03-07-2023 Urea nitrogen [Mass/Vol] 8 mg/dL 7-25 [facility] WBC Auto (Bld) [#/Vol]Ordere d By: Chuck Chacon on 03-07-2023 WBC (Bld) [#/Vol] 6.8 10*3/uL 3.8-11.6 [facility] A1C with Estimated Average G luon 03-06-2023 Glucose [Mass/Vol] 120 mg/dL Normal [facility] Comment on above: Result Comment: PERF ORMED BY: [place] [address] PATHOLOGIST MANAGER [employer] RAQUEL LOPEZ M.D. Performed By: #### B FINISHED HARDWARE ERECTOR, BMP, PT, PTT, HS TROP, CBC, TSH3, CK #### [facility] [address] HbA1c (Bld) [Mass fraction] 5.8 % High 4.3-5.6 [facility] Comment on above: Result Comment: Incr eased risk for diabetes: 5.7 - 6.4 diabetes: >6.4 glycemic control for adults with diabetes: <7.0 Performed By: #### B FINISHED HARDWARE ERECTOR, BMP, PT, PTT, HS TROP, CBC, TSH3, CK #### [facility] [address] Alanine aminotransferase [En zymatic activity/volume] in Serum or PlasmaOrdered By: Obchapincitodah Carlosomar on 03-06-2023 ALT [Catalytic activity/Vol] 17 U/L 7-52 [facility] Albumin [Mass/volume] in Ser um or Plasma by Bromocresol green (BCG) dye binding methoOrdered By: Obchapincitodah Carlosomar on 03-06-2023 Albumin BCG dye [Mass/Vol] 4.3 g/dL 3.5-5.7 [facility] Alkaline phosphatase [Enzyma tic activity/volume] in Serum or PlasmaOrdered By: Obaydah Daromar on 03-06-2023 ALP [Catalytic activity/Vol] 45 U/L 34-104 [facility] Aspartate aminotransferase [ Enzymatic activity/volume] in Serum or PlasmaOrdered By: Obaydah Daromar on 03-06-2023 AST [Catalytic activity/Vol] 16 U/L 13-39 [facility] Bilirubin.total [Mass/volume ] in Serum or PlasmaOrdered By: Obaydah Daromar on 03-06-2023 Bilirubin [Mass/Vol] 0.5 mg/dL 0.3-1.0 [facility] Cholesterol [Mass/volume] in Serum or PlasmaOrdered By: Obaydah Daromar on 03-06-2023 Cholesterol [Mass/Vol] 88 mg/dL 140-200 [facility] Comment on above: Chol less than 200 m g/dl low riskChol 201-239 mg/dl borderline riskChol 240 mg/dl and greater high risk Cholesterol in LDL Calc [Mas s/Vol]Ordered By: Jemal Jones on 03-06-2023 Cholesterol in LDL [Mass/Vol] 29 mg/dL 0-100 [facility] Comment on above: LDL ATP III CLASSIFI CATIONLDL less than 100 mg/dL OptimalLDL 100-129 mg/dL Near or above optimalLDL 130-159 mg/dL Borderline highLDL 160-189 mg/dL HighLDL greater than 189 mg/dL Very high Cholesterol in VLDL Calc [Ma ss/Vol]Ordered By: Jemal Jones on 03-06-2023 Cholesterol in VLDL [Mass/Vol] 16 mg/dL [facility] Complete Blood Count Auto Di ffon 03-06-2023 Basophils (Bld) [#/Vol] 0.0 10*3/uL Normal 0.0-0.2 [facility] Comment on above: Result Comment: PERF ORMED BY: [place] [address] PATHOLOGIST MANAGER [employer] RAQUEL LOPEZ M.D. Performed By: #### B FINISHED HARDWARE ERECTOR, BMP, PT, PTT, HS TROP, CBC, TSH3, CK #### [facility] [address] [place] [address] [place] Basophils/100 WBC (Bld) 0.6 % Normal . [facility] Comment on above: Performed By: #### B FINISHED HARDWARE ERECTOR, BMP, PT, PTT, HS TROP, CBC, TSH3, CK #### [facility] [address] [place] [address] [place] Eosinophils (Bld) [#/Vol] 0.3 10*3/uL Normal 0.0-0.45 [facility] Comment on above: Performed By: #### B FINISHED HARDWARE ERECTOR, BMP, PT, PTT, HS TROP, CBC, TSH3, CK #### [facility] [address] [place] [address] [place] Eosinophils/100 WBC (Bld) 4.2 % Normal . [facility] Comment on above: Performed By: #### B FINISHED HARDWARE ERECTOR, BMP, PT, PTT, HS TROP, CBC, TSH3, CK #### [address] Erythrocyte distribution width (RBC) [Ratio] 12.9 % Normal 11.9-15.3 [facility] Comment on above: Performed By: #### B FINISHED HARDWARE ERECTOR, BMP, PT, PTT, HS TROP, CBC, TSH3, CK #### [address] Hematocrit (Bld) [Volume fraction] 37.9 % Normal 34.0-46.4 [facility] Comment on above: Performed By: #### B FINISHED HARDWARE ERECTOR, BMP, PT, PTT, HS TROP, CBC, TSH3, CK #### [address] Hemoglobin (Bld) [Mass/Vol] 13.0 g/dL Normal 11.8-15.4 [facility] Comment on above: Performed By: #### B FINISHED HARDWARE ERECTOR, BMP, PT, PTT, HS TROP, CBC, TSH3, CK #### [address] Lymphocytes (Bld) [#/Vol] 1.7 10*3/uL Normal 1.00-4.8 [facility] Comment on above: Performed By: #### B FINISHED HARDWARE ERECTOR, BMP, PT, PTT, HS TROP, CBC, TSH3, CK #### [address] Lymphocytes/100 WBC (Bld) 22.0 % Normal . [facility] Comment on above: Performed By: #### B FINISHED HARDWARE ERECTOR, BMP, PT, PTT, HS TROP, CBC, TSH3, CK #### [address] MCH (RBC) [Entitic mass] 31.5 pg Normal 24.7-34.3 [facility] Comment on above: Performed By: #### B FINISHED HARDWARE ERECTOR, BMP, PT, PTT, HS TROP, CBC, TSH3, CK #### [address] [place] [address] [place] MCV (RBC) [Entitic vol] 91.9 fL Normal 80-100 [facility] Comment on above: Performed By: #### B FINISHED HARDWARE ERECTOR, BMP, PT, PTT, HS TROP, CBC, TSH3, CK #### [facility] [address] Mean Corpuscular HGB Conc 34.3 g/dL Normal 32.0-35.0 [facility] Comment on above: Performed By: #### B FINISHED HARDWARE ERECTOR, BMP, PT, PTT, HS TROP, CBC, TSH3, CK #### [address] Monocytes (Bld) [#/Vol] 0.6 10*3/uL Normal 0.0-0.8 [facility] Comment on above: Performed By: #### B FINISHED HARDWARE ERECTOR, BMP, PT, PTT, HS TROP, CBC, TSH3, CK #### [address] Monocytes/100 WBC (Bld) 8.2 % Normal . [facility] Comment on above: Performed By: #### B FINISHED HARDWARE ERECTOR, BMP, PT, PTT, HS TROP, CBC, TSH3, CK #### [address] Neutrophils (Bld) [#/Vol] 5.1 10*3/uL Normal 1.8-7.7 [facility] Comment on above: Performed By: #### B FINISHED HARDWARE ERECTOR, BMP, PT, PTT, HS TROP, CBC, TSH3, CK #### [address] Neutrophils/100 WBC (Bld) 65.0 % Normal . [facility] Comment on above: Performed By: #### B FINISHED HARDWARE ERECTOR, BMP, PT, PTT, HS TROP, CBC, TSH3, CK #### [address] NRBC% 0.1 /100{WBC} Normal 0-0.5 [facility] Comment on above: Performed By: #### B FINISHED HARDWARE ERECTOR, BMP, PT, PTT, HS TROP, CBC, TSH3, CK #### [address] Platelet mean volume (Bld) [Entitic vol] 7.4 fL Normal 6.3-10.7 [facility] Comment on above: Performed By: #### B FINISHED HARDWARE ERECTOR, BMP, PT, PTT, HS TROP, CBC, TSH3, CK #### [address] Platelets (Bld) [#/Vol] 257 10*3/uL Normal 150-450 [facility] Comment on above: Performed By: #### B FINISHED HARDWARE ERECTOR, BMP, PT, PTT, HS TROP, CBC, TSH3, CK #### [address] RBC (Bld) [#/Vol] 4.12 10*6/uL Normal 3.60-5.00 [facility] Comment on above: Performed By: #### B FINISHED HARDWARE ERECTOR, BMP, PT, PTT, HS TROP, CBC, TSH3, CK #### [address] WBC (Bld) [#/Vol] 7.8 10*3/uL Normal 3.8-11.6 [facility] Comment on above: Performed By: #### B FINISHED HARDWARE ERECTOR, BMP, PT, PTT, HS TROP, CBC, TSH3, CK #### [address] Comprehensive Metabolic Pane zofia 03-06-2023 Albumin [Mass/Vol] 4.3 g/dL Normal 3.5-5.7 [facility] Comment on above: Performed By: #### B FINISHED HARDWARE ERECTOR, BMP, PT, PTT, HS TROP, CBC, TSH3, CK #### [address] Albumin/Globulin [Mass ratio] 1.9 {ratio} Normal [facility] Comment on above: Performed By: #### B FINISHED HARDWARE ERECTOR, BMP, PT, PTT, HS TROP, CBC, TSH3, CK #### [address] ALP [Catalytic activity/Vol] 45 U/L Normal 34-104 [facility] Comment on above: Performed By: #### B FINISHED HARDWARE ERECTOR, BMP, PT, PTT, HS TROP, CBC, TSH3, CK #### [address] ALT [Catalytic activity/Vol] 17 U/L Normal 7-52 [facility] Comment on above: Performed By: #### B FINISHED HARDWARE ERECTOR, BMP, PT, PTT, HS TROP, CBC, TSH3, CK #### [address] Anion gap [Moles/Vol] 10.4 mmol/L Normal 6.0-15.0 [facility] Comment on above: Performed By: #### B FINISHED HARDWARE ERECTOR, BMP, PT, PTT, HS TROP, CBC, TSH3, CK #### [address] AST [Catalytic activity/Vol] 16 U/L Normal 13-39 [facility] Comment on above: Performed By: #### B FINISHED HARDWARE ERECTOR, BMP, PT, PTT, HS TROP, CBC, TSH3, CK #### [address] Bilirubin [Mass/Vol] 0.5 mg/dL Normal 0.3-1.0 [facility] Comment on above: Performed By: #### B FINISHED HARDWARE ERECTOR, BMP, PT, PTT, HS TROP, CBC, TSH3, CK #### [address] Calcium [Mass/Vol] 9.2 mg/dL Normal 8.6-10.3 [facility] Comment on above: Performed By: #### B FINISHED HARDWARE ERECTOR, BMP, PT, PTT, HS TROP, CBC, TSH3, CK #### [address] Chloride [Moles/Vol] 98 mmol/L Normal 98-107 [facility] Comment on above: Performed By: #### B FINISHED HARDWARE ERECTOR, BMP, PT, PTT, HS TROP, CBC, TSH3, CK #### [facility] [address] CO2 [Moles/Vol] 24.9 mmol/L Normal 21.0-31.0 [facility] Comment on above: Performed By: #### B FINISHED HARDWARE ERECTOR, BMP, PT, PTT, HS TROP, CBC, TSH3, CK #### [facility] [address] Creatinine [Mass/Vol] 0.85 mg/dL Normal 0.60-1.20 [facility] Comment on above: Performed By: #### B FINISHED HARDWARE ERECTOR, BMP, PT, PTT, HS TROP, CBC, TSH3, CK #### [address] Creatinine Clr Calc Pharmacy 45.45 [facility] Comment on above: Performed By: #### B FINISHED HARDWARE ERECTOR, BMP, PT, PTT, HS TROP, CBC, TSH3, CK #### [address] GFR/1.73 sq M.predicted MDRD (S/P/Bld) [Vol rate/Area] mL/min/{1.73_m2} [facility] Comment on above: Performed By: #### B FINISHED HARDWARE ERECTOR, BMP, PT, PTT, HS TROP, CBC, TSH3, CK #### [address] Globulin (S) [Mass/Vol] 2.3 g/dL [facility] Comment on above: Performed By: #### B FINISHED HARDWARE ERECTOR, BMP, PT, PTT, HS TROP, CBC, TSH3, CK #### [address] Glucose [Mass/Vol] 97 mg/dL Normal 70-100 [facility] Comment on above: Result Comment: [place] Glucose Reference Range is dependent on time and content of last meal. Glucose of more than 200 mg/dL in a nonstressed, ambulatory subject supports the diagnosis of Diabetes Mellitus. ADA recommended reference range Performed By: #### B FINISHED HARDWARE ERECTOR, BMP, PT, PTT, HS TROP, CBC, TSH3, CK #### [facility] [address] Potassium [Moles/Vol] 4.3 mmol/L Normal 3.5-5.1 [facility] Comment on above: Performed By: #### B FINISHED HARDWARE ERECTOR, BMP, PT, PTT, HS TROP, CBC, TSH3, CK #### [facility] [address] Protein [Mass/Vol] 6.6 g/dL Normal 6.4-8.9 [facility] Comment on above: Performed By: #### B FINISHED HARDWARE ERECTOR, BMP, PT, PTT, HS TROP, CBC, TSH3, CK #### [facility] [address] Sodium [Moles/Vol] 129 mmol/L Low 136-145 [facility] Comment on above: Performed By: #### B FINISHED HARDWARE ERECTOR, BMP, PT, PTT, HS TROP, CBC, TSH3, CK #### [address] Urea nitrogen [Mass/Vol] 14 mg/dL Normal 7-25 [facility] Comment on above: Performed By: #### B FINISHED HARDWARE ERECTOR, BMP, PT, PTT, HS TROP, CBC, TSH3, CK #### [address] Dipstick and Microscopicon 0 03-06-2023 Appearance (U) Clear Normal Clear [facility] Comment on above: Order Comment: Name Collection Type:: Clean-Voided Midstream Performed By: #### A DDONUAPLUS #### [place] [address] [place] Bacteria,Urine 1+ High None Seen [facility] Comment on above: Order Comment: Name Collection Type:: Clean-Voided Midstream Performed By: #### A DDONUAPLUS #### [place] [address] [place] Bilirubin,Urine Negative Normal Negative [facility] Comment on above: Order Comment: Name Collection Type:: Clean-Voided Midstream Performed By: #### A DDONUAPLUS #### [facility] [address] [place] [address] [place] Color (U) Yellow Normal Yellow [facility] Comment on above: Order Comment: Name Collection Type:: Clean-Voided Midstream Performed By: #### A DDONUAPLUS #### [facility] [address] [place] [id number] [place] Glucose Ql (U) Normal Normal Normal [facility] Comment on above: Order Comment: Name Collection Type:: Clean-Voided Midstream Performed By: #### A DDONUAPLUS #### [place] [address] [place] Hyaline Casts,Urine None Seen Normal 0-1 [facility] Comment on above: Order Comment: Name Collection Type:: Clean-Voided Midstream Result Comment: PERF ORMED BY: [place] [address] PATHOLOGIST MANAGER UNION RAQUEL LOPEZ M.D. Performed By: #### A DDONUAPLUS #### [facility] [address] [place], [place] [id number] [place] Ketones Ql (U) Trace High Negative [facility] Comment on above: Order Comment: Name Collection Type:: Clean-Voided Midstream Performed By: #### A DDONUAPLUS #### [place] [address] [place] Leukocyte esterase Test strip Ql (U) 1+ High Negative [facility] Comment on above: Order Comment: Name Collection Type:: Clean-Voided Midstream Performed By: #### A DDONUAPLUS #### [facility] [address] [place] [address] [place] Nitrite,Urine Negative Normal Negative [facility] Comment on above: Order Comment: Name Collection Type:: Clean-Voided Midstream Performed By: #### A DDONUAPLUS #### [facility] [address] [place] [address] [place] Occult Blood,Urine Negative Normal Negative [facility] Comment on above: Order Comment: Name Collection Type:: Clean-Voided Midstream Result Comment: PERF ORMED BY: [address] [place] [address] PATHOLOGIST MANAGER UNION RAQUEL LOPEZ M.D. Performed By: #### A DDONUAPLUS #### [address] pH (U) 6.0 [pH] Normal 5.0-9.0 [facility] Comment on above: Order Comment: Name Collection Type:: Clean-Voided Midstream Performed By: #### A DDONUAPLUS #### [address] Protein,Urine Negative Normal Negative [facility] Comment on above: Order Comment: Name Collection Type:: Clean-Voided Midstream Performed By: #### A DDONUAPLUS #### [address] RBC,Urine None Seen Normal 0-4 [facility] Comment on above: Order Comment: Name Collection Type:: Clean-Voided Midstream Performed By: #### A DDONUAPLUS #### [address] Renal Epithelial Cells,Urine Rare Normal 0-1 [facility] Comment on above: Order Comment: Name Collection Type:: Clean-Voided Midstream Performed By: #### A DDONUAPLUS #### [address] Specificy [place],Urine 1.015 Normal 1.001-1.03 0 [facility] Comment on above: Order Comment: Name Collection Type:: Clean-Voided Midstream Performed By: #### A DDONUAPLUS #### [place] [address] [place] Squamous Epithelial Cell,Urine 3-4 High 0-2 [facility] Comment on above: Order Comment: Name Collection Type:: Clean-Voided Midstream Performed By: #### A DDONUAPLUS #### [address] Urobilinogen,Urine Normal Normal Normal [facility] Comment on above: Order Comment: Name Collection Type:: Clean-Voided Midstream Performed By: #### A DDONUAPLUS #### [facility] [address] WBC,Urine 3-4 Normal 0-4 [facility] Comment on above: Order Comment: Name Collection Type:: Clean-Voided Midstream Performed By: #### A DDONUAPLUS #### [facility] [address] echo transthoracicon [facility] echo transthoracic [facility] [address] [place] [address] [place] [address] Echocardiogram Signed Patient: Steven Harding MR#: [id number] 1 : 1940 Acct:[id number] Age/Sex: 83 / F ADM Date: 03/05/23 Loc: Room: [address] [place] [address] Type: ADM INOo Attending Dr: Chuck Chacon MD Ordering Provider: Jemal Jones MD Date of Service: 03/06/23 [facility] echo transthoracic: Dizziness Copies to: MD Jemal Tello MD Weight: 140 lb Performed By: FREDDIE Vallejo BSA: 1.6 m2 BP: 160/69 mmHg HR: 75 Reason For Study: Dizziness History: aortic aneurysm, HTN, MA, pre-DM, PCI, former smoker, CAD Interpretation Summary [...] Signed By: Karli Dougherty MD 03/06/[address] [facility] Free T4 (Free Thyroxine)on 0 03-06-2023 Free T4 [Mass/Vol] 1.01 ng/dL Normal 0.61-1.12 [facility] Comment on above: Performed By: #### B FINISHED HARDWARE ERECTOR, BMP, PT, PTT, HS TROP, CBC, TSH3, CK #### [facility] [address] Globulin Calc (S) [Mass/Vol] Ordered By: Jemal Jones on 03-06-2023 Globulin (S) [Mass/Vol] 2.3 g/dL [facility] Glucose Glucometer (BldC) [M ass/Vol]Ordered By: Jemal Jones on 03-06-2023 Glucose [Mass/Vol] 104 mg/dL [facility] Comment on above: Random Glucose Refer ence Range is dependent on time and content of last meal. Glucose of more than 200 mg/dL in a nonstressed, ambulatory subject supports the diagnosis of Diabetes Mellitus. Glucose Poct Glucometerson 0 03-06-2023 Glucose [Mass/Vol] 104 mg/dL Normal [facility] Comment on above: Result Comment: [place] om Glucose Reference Range is dependent on time and content of last meal. Glucose of more than 200 mg/dL in a nonstressed, ambulatory subject supports the diagnosis of Diabetes Mellitus. PERFORMED BY: [place] [address] PATHOLOGIST MANAGER UNION RAQUEL LOPEZ M.D. Performed By: #### B FINISHED HARDWARE ERECTOR, BMP, PT, PTT, HS TROP, CBC, TSH3, CK #### [facility] [address] Glucose mean value [Mass/vol ume] in Blood Estimated from glycated hemoglobinOrdered By: Jemal Jones on 03-06-2023 Average glucose Estimated from glycated hemoglobin (Bld) [Mass/Vol] 120 mg/dL [facility] Hemoglobin A1c percentageOrd ered By: Jemal Jones on 03-06-2023 HbA1c (Bld) [Mass fraction] 5.8 % 4.3-5.6 [facility] Comment on above: Increased risk for d iabetes: 5.7 - 6.4diabetes: >6.4glycemic control for adults with diabetes: <7.0 Lipid Panelon 03-06-2023 Cholesterol [Mass/Vol] 88 mg/dL Low 140-200 [facility] Comment on above: Result Comment: Chol less than 200 mg/dl low risk Chol 201-239 mg/dl borderline risk Chol 240 mg/dl and greater high risk Performed By: #### B FINISHED HARDWARE ERECTOR, BMP, PT, PTT, HS TROP, CBC, TSH3, CK #### [facility] [address] Cholesterol in HDL [Mass/Vol] 42 mg/dL Normal 23-92 [facility] Comment on above: Result Comment: HDL CHOL ATP-III CLASSIFICATION Cardiovascular Risk HDL > or equal to 60 mg/dL LOW HDL < 40 mg/dL HIGH Performed By: #### B FINISHED HARDWARE ERECTOR, BMP, PT, PTT, HS TROP, CBC, TSH3, CK #### [facility] [address] Cholesterol.total/Chol esterol in HDL [Mass ratio] 2.1 {ratio} Normal <5.0 [facility] Comment on above: Performed By: #### B FINISHED HARDWARE ERECTOR, BMP, PT, PTT, HS TROP, CBC, TSH3, CK #### [facility] [address] LDL Cholesterol,Calculated 29 mg/dL Normal 0-100 [facility] Comment on above: Result Comment: LDL ATP III CLASSIFICATION LDL less than 100 mg/dL Optimal LDL 100-129 mg/dL Near or above optimal LDL 130-159 mg/dL Borderline high LDL 160-189 mg/dL High LDL greater than 189 mg/dL Very high Performed By: #### B FINISHED HARDWARE ERECTOR, BMP, PT, PTT, HS TROP, CBC, TSH3, CK #### [facility] [address] [place] [address] [place] Triglyceride w/Reflex 84 mg/dL Normal 0-149 [facility] Comment on above: Result Comment: TRIG ATP III CLASSIFICATION TRIG less than 150 mg/dL Normal TRIG 150-199 mg/dL Borderline high TRIG 200-500 mg/dL High TRIG greater than 500 mg/dL Very high Standard traceable to the Center for Disease Conrtrol and Prevention (CDC) test method. Performed By: #### B FINISHED HARDWARE ERECTOR, BMP, PT, PTT, HS TROP, CBC, TSH3, CK #### [facility] [address] [place] [address] [place] VLDL CHOLESTEROL 16 mg/dL Normal [facility] Comment on above: Performed By: #### B FINISHED HARDWARE ERECTOR, BMP, PT, PTT, HS TROP, CBC, TSH3, CK #### [facility] [address] [place] [address] [place] Magnesiumon 03-06-2023 Magnesium [Mass/Vol] 1.4 mg/dL Low 1.9-2.7 [facility] Comment on above: Performed By: #### B FINISHED HARDWARE ERECTOR, BMP, PT, PTT, HS TROP, CBC, TSH3, CK #### [facility] [address] [place] [address] [place] Protein [Mass/volume] in Ser um or PlasmaOrdered By: Jemal Gonzalezomar on 03-06-2023 Protein [Mass/Vol] 6.6 g/dL 6.4-8.9 [facility] Serum or plasma albumin/glob ulin mass ratioOrdered By: Jemal Gonzalezomar on 03-06-2023 Albumin/Globulin [Mass ratio] 1.9 {ratio} [facility] Serum or plasma high density lipoprotein (HDL) cholesterol measurementOrdered By: Jemal Gonzalezomar on 03-06-2023 Cholesterol in HDL [Mass/Vol] 42 mg/dL 23- [facility] Comment on above: HDL CHOL ATP-III CLA SSIFICATION Cardiovascular RiskHDL > or equal to 60 mg/dL LOWHDL < 40 mg/dL HIGH Serum or plasma total choles terol/high density lipoprotein (HDL) cholesterol mass ratOrdered By: Obchapincitodamarck Gonzalezomar on 03-06-2023 Cholesterol.total/Chol esterol in HDL [Mass ratio] 2.1 {ratio} <5.0 [facility] Thyroxine (T4) free [Mass/vo lume] in Serum or PlasmaOrdered By: Obchapincitodamarck Gonzalezomar on 03-06-2023 Free T4 [Mass/Vol] 1.01 ng/dL 0.61-1.12 [facility] Triglyceride [Mass/volume] i n Serum or PlasmaOrdered By: Objacqui Jones on 03-06-2023 Triglyceride [Mass/Vol] 84 mg/dL 0-149 [facility] Comment on above: TRIG ATP III CLASSIF ICATIONTRIG less than 150 mg/dL NormalTRIG 150-199 mg/dL Borderline highTRIG 200-500 mg/dL High TRIG greater than 500 mg/dL Very highStandard traceable to the Center for Disease Conrtrol and Prevention (CDC) test method. Triiodothyronine (T3) Totalo n 03-06-2023 Triiodothyronine (T3) Total 1.29 ng/mL Normal 0.87-1.78 [facility] Comment on above: Result Comment: PERF ORMED BY: [place] [address] PATHOLOGIST MANAGER UNION RAQUEL LOPEZ M.D. Performed By: #### B FINISHED HARDWARE ERECTOR, BMP, PT, PTT, HS TROP, CBC, TSH3, CK #### [address] Triiodothyronine (T3) [Mass/ volume] in Serum or PlasmaOrdered By: Jemal Jones on 03-06-2023 T3 [Mass/Vol] 1.29 ng/mL 0.87-1.78 [facility] US carotid doppler BIon 02-11 US carotid doppler BI [facility] Main [place] [address] [place] [address] Ultrasound Report Signed Patient: Steven Harding MR#: [id number] 1 : 1940 Acct:[id number] Age/Sex: 83 / F ADM Date: 03/05/23 Loc: Room: [address] [place] [address] Type: ADM INOo Attending Dr: Chuck Chacon [...] 03/06/23 1419 Signed By: 03/06/23 1421 Normal [facility] Activated partial thrombopla stin time (aPTT) in platelet poor plasma by coagulation aOrdered By: Monique Tierney on 03-05-2023 aPTT Coag (PPP) [Time] 25.4 s 25.1-36.5 [facility] Comment on above: A hematocrit value g reater than 55% may lead to inaccurate results in coagulation testing. Patients having hematocrit values >55% require a special collection tube for coagulation studies. Please contact the laboratory at [phone] for redraw instructions. Automated epithelial cells c ount in urine sediment (number/area)Ordered By: Prism Microwavejacqui Jones on 03-05-2023 Epithelial cells Auto (Urine sed) [#/Area] 3-4 [HPF] 0-2 [facility] Automated erythrocytes count in urine sediment (number/area)Ordered By: Art.comsheng Jones on 03-05-2023 RBC Auto (Urine sed) [#/Area] None seen [HPF] 0-4 [facility] Automated leukocytes count i n urine sediment (number/area)Ordered By: [employer]r on 03-05-2023 WBC Auto (Urine sed) [#/Area] 3-4 [HPF] 0-4 [facility] Automated urine hyaline cast s count (number/volume)Ordered By: Prism MicrowavechapincitoPowelectricsmarcello on 03-05-2023 Hyaline casts Auto (U) [#/Vol] None seen [LPF] 0-1 [facility] B-Type Natriuretic Peptideon 03-05-2023 Natriuretic peptide B (Bld) [Mass/Vol] 42.0 pg/mL Normal 5-100 [facility] Comment on above: Result Comment: PERF ORMED BY: [place] [address] PATHOLOGIST MANAGER UNION RAQUEL LOPEZ M.D. Performed By: #### B FINISHED HARDWARE ERECTOR, BMP, PT, PTT, HS TROP, CBC, TSH3, CK #### [place] [id number] [facility] Basic Metabolic Panelon 02-11 Anion gap [Moles/Vol] 17.1 mmol/L High 6.0-15.0 [facility] Comment on above: Performed By: #### B FINISHED HARDWARE ERECTOR, BMP, PT, PTT, HS TROP, CBC, TSH3, CK #### [facility] [address] Calcium [Mass/Vol] 9.7 mg/dL Normal 8.6-10.3 [facility] Comment on above: Performed By: #### B FINISHED HARDWARE ERECTOR, BMP, PT, PTT, HS TROP, CBC, TSH3, CK #### [facility] [address] Chloride [Moles/Vol] 93 mmol/L Low 98-107 [facility] Comment on above: Performed By: #### B FINISHED HARDWARE ERECTOR, BMP, PT, PTT, HS TROP, CBC, TSH3, CK #### [address] CO2 [Moles/Vol] 19.4 mmol/L Low 21.0-31.0 [facility] Comment on above: Performed By: #### B FINISHED HARDWARE ERECTOR, BMP, PT, PTT, HS TROP, CBC, TSH3, CK #### [address] Creatinine [Mass/Vol] 0.84 mg/dL Normal 0.60-1.20 [facility] Comment on above: Performed By: #### B FINISHED HARDWARE ERECTOR, BMP, PT, PTT, HS TROP, CBC, TSH3, CK #### [address] Creatinine Clr Calc Pharmacy 46.72 [facility] Comment on above: Performed By: #### B FINISHED HARDWARE ERECTOR, BMP, PT, PTT, HS TROP, CBC, TSH3, CK #### [address] GFR/1.73 sq M.predicted MDRD (S/P/Bld) [Vol rate/Area] mL/min/{1.73_m2} [facility] Comment on above: Performed By: #### B FINISHED HARDWARE ERECTOR, BMP, PT, PTT, HS TROP, CBC, TSH3, CK #### [facility] [address] Glucose [Mass/Vol] 85 mg/dL Normal 70-100 [facility] Comment on above: Result Comment: [facility] Glucose Reference Range is dependent on time and content of last meal. Glucose of more than 200 mg/dL in a nonstressed, ambulatory subject supports the diagnosis of Diabetes Mellitus. ADA recommended reference range Performed By: #### B FINISHED HARDWARE ERECTOR, BMP, PT, PTT, HS TROP, CBC, TSH3, CK #### [facility] [address] Potassium [Moles/Vol] 4.5 mmol/L Normal 3.5-5.1 [facility] Comment on above: Performed By: #### B FINISHED HARDWARE ERECTOR, BMP, PT, PTT, HS TROP, CBC, TSH3, CK #### [facility] [address] Sodium [Moles/Vol] 125 mmol/L Low 136-145 [facility] Comment on above: Performed By: #### B FINISHED HARDWARE ERECTOR, BMP, PT, PTT, HS TROP, CBC, TSH3, CK #### [facility] [address] Urea nitrogen [Mass/Vol] 17 mg/dL Normal 7-25 [facility] Comment on above: Performed By: #### B FINISHED HARDWARE ERECTOR, BMP, PT, PTT, HS TROP, CBC, TSH3, CK #### [facility] [address] Basophils Auto (Bld) [#/Vol] Ordered By: Monique Tierney on 03-05-2023 Basophils (Bld) [#/Vol] 0.1 10*3/uL 0.0-0.2 [facility] Basophils/100 WBC Auto (Bld) Ordered By: Monique Tierney on 03-05-2023 Basophils/100 WBC (Bld) 0.5 % . [facility] Bilirubin Test strip Ql (U)O rdered By: Jemal Jones on 03-05-2023 Bilirubin Ql (U) Negative Negative [facility] CT angio neckon 03-05-2023 CT angio neck [facility] Main [place] [address] [place] [address] CT Scan Report Signed Patient: Steven Harding MR#: [id number] 1 : 1940 Acct:[id number] Age/Sex: 83 / F ADM Date: 03/05/23 Loc: ER Room: Type: [facility] ER Attending Dr: Copies to: Monique Tierney MD Ordering Provider: Monique Tierney MD Date of Service: 03/05/23 CT/CT angio neck: episodic dizziness, episode 2 wks ago face tinglin ([id number]) CT/CT angio head: episodic dizziness, episode 2 [...] Bethel Snyder DO 03/05/231928 Signed By: 03/05/231933 [facility] CT head/brain wo conon 03-05 CT head/brain wo con [facility] Main [place] [address] [place] [address] CT Scan Report Signed Patient: Steven Harding MR#: [id number] 1 : 1940 Acct:[id number] Age/Sex: 83 / F ADM Date: 03/05/23 Loc: ER Room: Type: [facility] ER Attending Dr: Copies to: Monique [...] Bethel Snyder M.D.03/05/2023 7:29 PM Dictation Location: [place] [address] Transcribed By: OSCAR 03/05/231928 Dictated By: Bethel Snyder DO 03/05/231927 Signed By: 03/05/231928 [facility] Calcium [Mass/volume] in Ser um or PlasmaOrdered By: Monique Tierney on 03-05-2023 Calcium [Mass/Vol] 9.7 mg/dL 8.6-10.3 [facility] Carbon dioxide, total [Moles /volume] in Serum or PlasmaOrdered By: Monique Tierney on 03-05-2023 CO2 [Moles/Vol] 19.4 mmol/L 21.0-31.0 [facility] Chloride [Moles/volume] in S yamilex or PlasmaOrdered By: Monique Tierney on 03-05-2023 Chloride [Moles/Vol] 93 mmol/L 98-107 [facility] Color Auto (U)Ordered By: Ob jacqui Jones on 03-05-2023 Color (U) Yellow Yellow [facility] Complete Blood Count Auto Di ffon 03-05-2023 Basophils (Bld) [#/Vol] 0.1 10*3/uL Normal 0.0-0.2 [facility] Comment on above: Result Comment: PERF ORMED BY: [place] [address] PATHOLOGIST MANAGER UNION RAQUEL LOPEZ M.D. Performed By: #### B FINISHED HARDWARE ERECTOR, BMP, PT, PTT, HS TROP, CBC, TSH3, CK #### [address] Basophils/100 WBC (Bld) 0.5 % Normal . [facility] Comment on above: Performed By: #### B FINISHED HARDWARE ERECTOR, BMP, PT, PTT, HS TROP, CBC, TSH3, CK #### [address] Eosinophils (Bld) [#/Vol] 0.3 10*3/uL Normal 0.0-0.45 [facility] Comment on above: Performed By: #### B FINISHED HARDWARE ERECTOR, BMP, PT, PTT, HS TROP, CBC, TSH3, CK #### [place] [address] [place] Eosinophils/100 WBC (Bld) 2.8 % Normal . [facility] Comment on above: Performed By: #### B FINISHED HARDWARE ERECTOR, BMP, PT, PTT, HS TROP, CBC, TSH3, CK #### [address] Erythrocyte distribution width (RBC) [Ratio] 12.8 % Normal 11.9-15.3 [facility] Comment on above: Performed By: #### B FINISHED HARDWARE ERECTOR, BMP, PT, PTT, HS TROP, CBC, TSH3, CK #### [address] Hematocrit (Bld) [Volume fraction] 39.9 % Normal 34.0-46.4 [facility] Comment on above: Performed By: #### B FINISHED HARDWARE ERECTOR, BMP, PT, PTT, HS TROP, CBC, TSH3, CK #### [address] Hemoglobin (Bld) [Mass/Vol] 13.6 g/dL Normal 11.8-15.4 [facility] Comment on above: Performed By: #### B FINISHED HARDWARE ERECTOR, BMP, PT, PTT, HS TROP, CBC, TSH3, CK #### [address] Lymphocytes (Bld) [#/Vol] 1.7 10*3/uL Normal 1.00-4.8 [facility] Comment on above: Performed By: #### B FINISHED HARDWARE ERECTOR, BMP, PT, PTT, HS TROP, CBC, TSH3, CK #### [address] Lymphocytes/100 WBC (Bld) 14.7 % Normal . [facility] Comment on above: Performed By: #### B FINISHED HARDWARE ERECTOR, BMP, PT, PTT, HS TROP, CBC, TSH3, CK #### [address] MCH (RBC) [Entitic mass] 31.3 pg Normal 24.7-34.3 [facility] Comment on above: Performed By: #### B FINISHED HARDWARE ERECTOR, BMP, PT, PTT, HS TROP, CBC, TSH3, CK #### [address] MCV (RBC) [Entitic vol] 91.9 fL Normal 80-100 [facility] Comment on above: Performed By: #### B FINISHED HARDWARE ERECTOR, BMP, PT, PTT, HS TROP, CBC, TSH3, CK #### [address] Mean Corpuscular HGB Conc 34.0 g/dL Normal 32.0-35.0 [facility] Comment on above: Performed By: #### B FINISHED HARDWARE ERECTOR, BMP, PT, PTT, HS TROP, CBC, TSH3, CK #### [address] Monocytes (Bld) [#/Vol] 0.6 10*3/uL Normal 0.0-0.8 [facility] Comment on above: Performed By: #### B FINISHED HARDWARE ERECTOR, BMP, PT, PTT, HS TROP, CBC, TSH3, CK #### [address] Monocytes/100 WBC (Bld) 18.39 % Normal 0.00-20.00 [facility] Comment on above: Performed By: #### B FINISHED HARDWARE ERECTOR, BMP, PT, PTT, HS TROP, CBC, TSH3, CK #### [address] Monocytes/100 WBC (Bld) 5.4 % Normal . [facility] Comment on above: Performed By: #### B FINISHED HARDWARE ERECTOR, BMP, PT, PTT, HS TROP, CBC, TSH3, CK #### [address] Neutrophils (Bld) [#/Vol] 8.7 10*3/uL High 1.8-7.7 [facility] Comment on above: Performed By: #### B FINISHED HARDWARE ERECTOR, BMP, PT, PTT, HS TROP, CBC, TSH3, CK #### [place] [address] [place] Neutrophils/100 WBC (Bld) 76.6 % Normal . [facility] Comment on above: Performed By: #### B FINISHED HARDWARE ERECTOR, BMP, PT, PTT, HS TROP, CBC, TSH3, CK #### [address] NRBC% 0.1 /100{WBC} Normal 0-0.5 [facility] Comment on above: Performed By: #### B FINISHED HARDWARE ERECTOR, BMP, PT, PTT, HS TROP, CBC, TSH3, CK #### [facility] [address] Platelet mean volume (Bld) [Entitic vol] 7.5 fL Normal 6.3-10.7 [facility] Comment on above: Performed By: #### B FINISHED HARDWARE ERECTOR, BMP, PT, PTT, HS TROP, CBC, TSH3, CK #### [facility] [address] Platelets (Bld) [#/Vol] 285 10*3/uL Normal 150-450 [facility] Comment on above: Performed By: #### B FINISHED HARDWARE ERECTOR, BMP, PT, PTT, HS TROP, CBC, TSH3, CK #### [address] RBC (Bld) [#/Vol] 4.34 10*6/uL Normal 3.60-5.00 [facility] Comment on above: Performed By: #### B FINISHED HARDWARE ERECTOR, BMP, PT, PTT, HS TROP, CBC, TSH3, CK #### [address] WBC (Bld) [#/Vol] 11.4 10*3/uL Normal 3.8-11.6 [facility] Comment on above: Performed By: #### B FINISHED HARDWARE ERECTOR, BMP, PT, PTT, HS TROP, CBC, TSH3, CK #### [address] Creatine Kinaseon 03-05-2023 CK [Catalytic activity/Vol] 18 U/L Low [facility] Comment on above: Performed By: #### B FINISHED HARDWARE ERECTOR, BMP, PT, PTT, HS TROP, CBC, TSH3, CK #### [address] Creatine kinase [Enzymatic a ctivity/volume] in Serum or PlasmaOrdered By: Monique Tierney on 03-05-2023 CK [Catalytic activity/Vol] 18 U/L [facility] Creatinine [Mass/volume] in Serum or PlasmaOrdered By: Monique Tierney on 03-05-2023 Creatinine [Mass/Vol] 0.84 mg/dL 0.60-1.20 [facility] ECG 12 lead ECGon 03-05-2023 ECG 12 lead ECG [facility] Main [place] [id number] Electrocardiograph Report Signed Patient: Steven Harding MR#: [id number] 1 : 1940 Acct:[id number] Age/Sex: 83 / F ADM Date: 03/05/23 Loc: Room: [address] [place] [address] Type: ADM INOo Attending Dr: Chuck Chacon [...] fascicular block Confirmed by Hoang Mancia DO ([id number]) on 03/06/2023 8:08:36 PM Referred By: Electronically Signed By:Hoang Mancia DO Transcribed By: MUS Signed By Hoang Mancia DO 2007 Normal [facility] Eosinophils Auto (Bld) [#/Vo l]Ordered By: Monique Tierney on 03-05-2023 Eosinophils (Bld) [#/Vol] 0.3 10*3/uL 0.0-0.45 [facility] Eosinophils/100 WBC Auto (Bl d)Ordered By: Monique Tierney on 03-05-2023 Eosinophils/100 WBC (Bld) 2.8 % . [facility] Erythrocyte distribution wid th Auto (RBC) [Ratio]Ordered By: Monique Tierney on 03-05-2023 Erythrocyte distribution width (RBC) [Ratio] 12.8 % 11.9-15.3 [facility] Glucose [Mass/volume] in Ser um or PlasmaOrdered By: Monique Tierney on 09-24-2023 Glucose [Mass/Vol] 85 mg/dL 70-100 [facility] Comment on above: ADA recommended refe rence rangeRandom Glucose Reference Range is dependent on time and content of last meal. Glucose of more than 200 mg/dL in a nonstressed, ambulatory subject supports the diagnosis of Diabetes Mellitus. Hematocrit Auto (Bld) [Volum e fraction]Ordered By: Monique Tierney on 03-05-2023 Hematocrit (Bld) [Volume fraction] 39.9 % 34.0-46.4 [facility] Hemoglobin [Mass/volume] in BloodOrdered By: Monique Tierney on 03-05-2023 Hemoglobin (Bld) [Mass/Vol] 13.6 g/dL 11.8-15.4 [facility] INR in Platelet poor plasma by Coagulation assayOrdered By: Monique Tierney on 03-05-2023 INR Coag (PPP) [Relative time] 0.9 {INR} [facility] Comment on above: INR Therapeutic Rang e [...] on 03-05-2023 Ketones (U) [Mass/Vol] Trace Negative [facility] Leukocytes [#/volume] correc jazmyne for nucleated erythrocytes in Blood by Automated counOrdered By: Monique Tierney on 03-05-2023 WBC corrected for nucl RBC Auto (Bld) [#/Vol] 11.4 10*3/uL 3.8-11.6 [facility] Lymphocytes Auto (Bld) [#/Vo l]Ordered By: Monique Tierney on 03-05-2023 Lymphocytes (Bld) [#/Vol] 1.7 10*3/uL 1.00-4.8 [facility] Lymphocytes/100 WBC Auto (Bl d)Ordered By: Monique Tierney on 03-05-2023 Lymphocytes/100 WBC (Bld) 14.7 % . [facility] MCH Auto (RBC) [Entitic mass ]Ordered By: Monique Tierney on 03-05-2023 MCH (RBC) [Entitic mass] 31.3 pg 24.7-34.3 [facility] MCHC Auto (RBC) [Mass/Vol]Or dered By: Monique Tierney on 03-05-2023 MCHC (RBC) [Mass/Vol] 34.0 g/dL 32.0-35.0 [facility] MCV Auto (RBC) [Entitic vol] Ordered By: Monique Tierney on 03-05-2023 MCV (RBC) [Entitic vol] 91.9 fL 80-100 [facility] Monocyte distribution width [Entitic volume] in Blood by AutomatedOrdered By: Monique Tierney on 03-05-2023 Monocyte distribution width Auto (Bld) [Entitic vol] 18.39 % 0.00-20.00 [facility] Monocytes Auto (Bld) [#/Vol] Ordered By: Monique Tierney on 03-05-2023 Monocytes (Bld) [#/Vol] 0.6 10*3/uL 0.0-0.8 [facility] Monocytes/100 WBC Auto (Bld) Ordered By: Monique Tierney on 03-05-2023 Monocytes/100 WBC (Bld) 5.4 % . [facility] Natriuretic peptide B [Mass/ Vol]Ordered By: Monique Tierney on 03-05-2023 Natriuretic peptide B (Bld) [Mass/Vol] 42.0 pg/mL 5-100 [facility] Neutrophils Auto (Bld) [#/Vo l]Ordered By: Monique Tierney on 03-05-2023 Neutrophils (Bld) [#/Vol] 8.7 10*3/uL 1.8-7.7 [facility] Neutrophils/100 WBC Auto (Bl d)Ordered By: Monique Tierney on 03-05-2023 Neutrophils/100 WBC (Bld) 76.6 % . [facility] Nitrite Test strip Ql (U)Ord ered By: Jemal Jones on 03-05-2023 Nitrite Ql (U) Negative Negative [facility] No Panel InformationOrdered By: Monique Tierney on 03-05-2023 Estimated GFR (CKD-EPI) > 60.0 mL/Min [facility] Pharmacy Creatinine Clearance (Chem 46.72 [facility] Nucleated erythrocytes [Pres ence] in Blood by Automated countOrdered By: Monique Tierney on 03-05-2023 Nucleated RBC Auto Ql (Bld) 0.1 /100{WBC} 0-0.5 [facility] Partial Thromboplastin Timeo n 03-05-2023 aPTT Coag (Bld) [Time] 25.4 s Normal 25.1-36.5 [facility] Comment on above: Result Comment: A he matocrit value greater than 55% may lead to inaccurate results in coagulation testing. Patients having hematocrit values >55% require a special collection tube for coagulation studies. Please contact the laboratory at [phone] for redraw instructions. PERFORMED BY: [place] [address] PATHOLOGIST MANAGER UNION RAQUEL LOPEZ M.D. Performed By: #### B FINISHED HARDWARE ERECTOR, BMP, PT, PTT, HS TROP, CBC, TSH3, CK #### [address] Platelet mean volume Auto (B ld) [Entitic vol]Ordered By: Monique Tierney on 03-05-2023 Platelet mean volume (Bld) [Entitic vol] 7.5 fL 6.3-10.7 [facility] Platelets Auto (Bld) [#/Vol] Ordered By: Monique Tierney on 03-05-2023 Platelets (Bld) [#/Vol] 285 10*3/uL 150-450 [facility] Potassium [Moles/volume] in Serum or PlasmaOrdered By: Monique Tierney on 03-05-2023 Potassium [Moles/Vol] 4.5 mmol/L 3.5-5.1 [facility] Protein Auto test strip (U) [Mass/Vol]Ordered By: Jemal Jones on 03-05-2023 Protein (U) [Mass/Vol] Negative Negative [facility] Prothrombin Time INRon 03-05 INR Coag (PPP) [Relative time] 0.9 {INR} Normal [facility] Comment on above: Result Comment: INR Therapeutic [...] 3 - 4.5 Performed By: #### B FINISHED HARDWARE ERECTOR, BMP, PT, PTT, HS TROP, CBC, TSH3, CK #### [facility] [address] [place] [id number] [facility] PT Coag (PPP) [Time] 10.9 s Normal 9.0-12.9 [facility] Comment on above: Result Comment: A he matocrit value greater than 55% may lead to inaccurate results in coagulation testing. Patients having hematocrit values >55% require a special collection tube for coagulation studies. Please contact the laboratory at [phone] for redraw instructions. Performed By: #### B FINISHED HARDWARE ERECTOR, BMP, PT, PTT, HS TROP, CBC, TSH3, CK #### [facility] [address] [place] [id number] [facility] Prothrombin time (PT)Ordered By: Monique Tierney on 03-05-2023 PT Coag (PPP) [Time] 10.9 s 9.0-12.9 [facility] Comment on above: A hematocrit value g reater than 55% may lead to inaccurate results in coagulation testing. Patients having hematocrit values >55% require a special collection tube for coagulation studies. Please contact the laboratory at [phone] for redraw instructions. RBC Auto (Bld) [#/Vol]Ordere d By: Monique Tierney on 03-05-2023 RBC (Bld) [#/Vol] 4.34 10*6/uL 3.60-5.00 [facility] Serum or plasma anion gap de terminationOrdered By: Monique Tierney on 03-05-2023 Anion gap [Moles/Vol] 17.1 mmol/L 6.0-15.0 [facility] Sodium [Moles/volume] in Ser um or PlasmaOrdered By: Monique Tierney on 03-05-2023 Sodium [Moles/Vol] 125 mmol/L 136-145 [facility] Specific gravity Auto test s trip (U) [Rel density]Ordered By: Jemal Jones on 03-05-2023 Specific gravity (U) [Rel density] 1.015 1.001-1.03 0 [facility] Thyroid Stimulating Hormoneo n 03-05-2023 TSH Qn 0.01 m[IU]/L Low 0.45-5.33 [facility] Comment on above: Result Comment: PERF ORMED BY: [place] [address] PATHOLOGIST MANAGER UN[employer] RAQUEL LOPEZ M.D. Performed By: #### B FINISHED HARDWARE ERECTOR, BMP, PT, PTT, HS TROP, CBC, TSH3, CK #### [facility] [address] [place] [address] Thyrotropin [Units/volume] i n Serum or PlasmaOrdered By: Monique Tierney on 03-05-2023 TSH Qn 0.01 m[IU]/L 0.45-5.33 [facility] Troponin I High Sensitivityo n 03-05-2023 Troponin I High Sensitivity 6.3 pg/mL Normal 0.0-15.0 [facility] Comment on above: Result Comment: PERF ORMED BY: [place] [address] PATHOLOGIST MANAGER UNION RAQUEL LOPEZ M.D. Performed By: #### B FINISHED HARDWARE ERECTOR, BMP, PT, PTT, HS TROP, CBC, TSH3, CK #### [facility] [address] [place] [address] Troponin I.cardiac [Mass/vol ume] in Serum or Plasma by Detection limit <= 0.01 ng/Ordered By: Monique Tierney on 03-05-2023 Troponin I.cardiac DL <= 0.01 ng/mL [Mass/Vol] 6.3 pg/mL 0.0-15.0 [facility] Urea nitrogen [Mass/volume] in Serum or PlasmaOrdered By: Monique Tierney on 03-05-2023 Urea nitrogen [Mass/Vol] 17 mg/dL 7-25 [facility] Urine bacteria detection by automated methodOrdered By: Jemal Jones on 03-05-2023 Bacteria Auto Ql (U) 1+ None Seen [facility] Urine clarity by refractomet ry automatedOrdered By: Jemal Jones on 03-05-2023 Clarity Refractometry automated (U) Clear Clear [facility] Urine glucose measurement by automated test strip (mass/volume)Ordered By: Jemal Jones on 03-05-2023 Glucose Auto test strip (U) [Mass/Vol] Normal mg/dL Normal [facility] Urine hemoglobin detection b y automated test stripOrdered By: Jemal Jones on 03-05-2023 Hemoglobin Auto test strip Ql (U) Negative Negative [facility] Urine leukocyte esterase det ection by automated test stripOrdered By: Jemal Jones on 03-05-2023 Leukocyte esterase Auto test strip Ql (U) 1+ Negative [facility] Urine sediment renal epithel ial cell count by microscopy (number/high power field)Ordered By: Jemal Jones on 03-05-2023 Epithelial cells.renal LM.HPF (Urine sed) [#/Area] Rare [HPF] 0-1 [facility] Urobilinogen Auto test strip (U) [Mass/Vol]Ordered By: Jemal Jones on 03-05-2023 Urobilinogen (U) [Mass/Vol] Normal mg/dL Normal [facility] WBC Auto (Bld) [#/Vol]Ordere d By: Monique Tierney on 03-05-2023 WBC (Bld) [#/Vol] 11.4 10*3/uL 3.8-11.6 [facility] XR chest 2V*on 03-05-2023 XR chest 2V* [facility] [place] [address] XRay Report Signed Patient: Steven Harding MR#: [id number] 1 : 1940 Acct:[id number] Age/Sex: 83 / F ADM Date: 03/05/23 Loc: ER Room: Type: [facility] ER Attending Dr: Copies to: Monique [...] Bethel Snyder M.D.03/05/2023 7:27 PM Dictation Location: [place] [address] Transcribed By: [facility] 03/05/231926 Dictated By: Bethel Snyder DO 03/05/231925 Signed By: 03/05/231926 Normal [facility] pH Auto test strip (U)Ordere d By: Jemal Jones on 03-05-2023 pH (U) 6.0 [pH] 5.0-9.0 [facility] Office Visit (Cardiology)on 02-16-2023 Follow-up visit Diagnoses/Problems [...] Weight Tips; Status:Complete - Retrospective Authorization; Done: [id number] Some eating tips that can help you lose weight.; Status:Complete - Retrospective Authorization; Done: [id number] PMH: Coronary artery disease involving [place] coronary artery of [place] heart without angina pectoris, Mixed hyperlipidemia Renew: Atorvastatin Calcium 80 MG Oral Tablet; TAKE 1 TABLET AT BEDTIME SocHx: Former smoker Tobacco Use Screening; Status:Complete; Done: [id number] Status post percutaneous transluminal coronary angioplasty, Two-vessel [...] FOR CHEST PAIN.CALL 911 IF PAIN PERSISTS. FINISHED HARDWARE ERECTOR Thyroid 60 MG Oral TabletTAKE 1 TABLET [...] No alcoho (more content not included)... Normal Take5 Tobacco Screening.on 023 Fall risk assessment a) No falls within the last year [facility] [employer] 250 DO Work Phone: Tobacco use status CP b) No [facility] [employer] 250 DO Work Phone: REVERSE T3on 10-17-2022 Reverse T3, Serum 18.8 ng/dL Normal 9.2-24.1 [facility] Comment on above: Performed By: #### R [id number] #### [facility] [address] [place] [address] [address] Ellie Smith T3, TOTAL (TRIIODOTHYRONINE) on 10-06-2022 T3, TOTAL 137 ng/dL Normal 71-180 [facility] Comment on above: Performed By: #### P OCGLUC #### [facility] [address] [place] [address] Dr. Ellie Smith FREE T3on 10-05-2022 FREE T3 3.03 pg/mlL Normal 2.18-3.98 [facility] Comment on above: Performed By: #### L ACT #### [facility] [address] [place] [address] Dr. Ellie Smith FREE T4on 10-05-2022 Free T4 [Mass/Vol] 1.02 ng/dL Normal 0.76-1.46 [facility] Comment on above: Performed By: #### F T4 #### [facility] [address] [place] [address] Dr. Ellie Smith TSHon 10-05-2022 TSH 0.032 uIU/mL Critically low 0.358-3.74 0 [facility] Comment on above: Performed By: #### L ACT #### [facility] [address] [place] [address] Dr. Ellie Smith Office Visit (Cardiology)on 08-24-2022 [...] Done: [id number] PMH: Coronary artery disease involving [place] coronary artery of [place] heart without angina pectoris Renew: Aspirin EC 81 MG Oral Tablet Delayed Release; TAKE 1 TABLET DAILY Renew: Clopidogrel Bisulfate 75 MG Oral Tablet; TAKE 1 TABLET BY MOUTH DAILY PMH: Coronary artery disease involving [place] coronary artery of [place] heart without angina pectoris, Hypertension, benign Renew: Losartan Potassium 100 MG Oral Tablet; TAKE 1 TABLET DAILY PMH: Coronary artery disease involving [place] coronary artery of [place] heart without angina pectoris, Mixed hyperlipidemia Renew: Atorvastatin Calcium 80 MG Oral Tablet; TAKE 1 TABLET AT BEDTIME SocHx: Former smoker Tobacco Use Screening; Status:Complete; Done: [id number] Patient Instructions Please bring all medicines, vitamins, [...] FOR CHEST PAIN.CALL 911 IF PAIN PERSISTS. 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 Respirat (more content not included)... Normal Take5 Tobacco Screening.on 023 Adult depression screening assessment No [facility] [employer] 250 DO Work Phone: Fall risk assessment a) No falls within the last year [facility] [employer] 250 DO Work Phone: Tobacco use status CPHS b) No [facility] [employer] 250 DO Work Phone: GLYCOHEMOGLOBIN A1Con 2022 ADA RECOMMENDATION SEE BELOW Normal [facility] Comment on above: Result Comment: ADA RECOMMENDED LIMIT 4.0 - 6.0 ADA THERAPEUTIC TARGET < 7.0 ACTION SUGGESTED > 7.0 Performed By: #### A 1C #### [facility] [address] [place] [address] Dr. Ellie Smith Glucose [Mass/Vol] 114 mg/dL Normal [facility] Comment on above: Performed By: #### A 1C #### [facility] [address] [place] [address] Dr. Ellie Smith HbA1c (Bld) [Mass fraction] 5.6 % Normal 4.5-6.2 [facility] Comment on above: Performed By: #### A 1C #### [facility] [address] [place] [address] Dr. Ellie Smith LIPID PROFILEon 08-15-2022 CHOL-HDL RATIO NORM SEE BELOW Normal [facility] Comment on above: Result Comment: 3.3 - 4.4 LOW RISK 4.4 - 7.1 AVERAGE RISK 7.1 - 11.0 MODERATE RISK >11.0 HIGH RISK Performed By: #### R [id number] #### [facility] [address] [place] [address] Dr. Ellie Smith Cholesterol [Mass/Vol] 116 mg/dL Normal <=200 [facility] Comment on above: Performed By: #### R EVRT3 #### [facility] [address] [place] [address] Dr. Ellie Smith Cholesterol in HDL [Mass/Vol] 60 mg/dL Normal 40-60 [facility] Comment on above: Performed By: #### R EVRT3 #### [facility] [address] [place] [address] Dr. Ellie Smith Cholesterol in LDL [Mass/Vol] 46.0 mg/dL Normal [facility] Comment on above: Performed By: #### R [id number] #### [facility] [address] [place] [address] Dr. Ellie Smith Cholesterol.total/Chol esterol in HDL [Mass ratio] 1.9 {ratio} Normal [facility] Comment on above: Performed By: #### R [id number] #### [facility] [address] [place] [address] Dr. Ellie Smith HDL NORMAL > or = 60 mg/dl - LO W CARDIOVASCULAR RISK <40 mg/dl - HIGH CARDIOVASCULAR RISK Normal [facility] Comment on above: Performed By: #### R [id number] #### [facility] [address] [place] [address] Dr. Ellie Smith LDL CALC NORMAL SEE BELOW Normal [facility] Comment on above: Result Comment: <100 mg/dl OPTIMAL 100 - 129 mg/dl NEAR OR ABOVE OPTIMAL 130 - 159 mg/dl BORDERLINE HIGH 160 - 189 mg/dl HIGH >190 mg/dl VERY HIGH Performed By: #### R [id number] #### [facility] [address] [place] [address] Dr. Ellie Smith Triglyceride [Mass/Vol] 50 mg/dL Normal <=150 [facility] Comment on above: Performed By: #### R [id number] #### [facility] [address] [place] [address] Dr. Ellie Smith VLDL CALC 10.0 mg/dL Normal [facility] Comment on above: Performed By: #### R [id number] #### [facility] [address] [place] [address] Dr. Ellie Smith PROF 14(COMP METB)on 023 Albumin [Mass/Vol] 3.9 g/dL Normal 3.4-5.0 [facility] Comment on above: Performed By: #### R [id number] #### [facility] [address] [place] [address] Dr. Ellie Smith Albumin/Globulin [Mass ratio] 1.2 {ratio} Normal [facility] Comment on above: Performed By: #### R [id number] #### [facility] [address] [place] [address] Dr. Ellie Smith ALP [Catalytic activity/Vol] 56 U/L Normal 46-116 [facility] Comment on above: Performed By: #### R [id number] #### [facility] [address] [place] [address] Dr. Ellie Smith ALT [Catalytic activity/Vol] 27 U/L Normal 14-59 [facility] Comment on above: Performed By: #### R [id number] #### [facility] [address] [place] [address] Dr. Ellie Smith Anion gap [Moles/Vol] 14.1 mmol/L Normal Th e [facility] Comment on above: Performed By: #### R [id number] #### [facility] [address] [place] [address] Dr. Ellie Smith AST [Catalytic activity/Vol] 18 U/L Normal 15-37 [facility] Comment on above: Performed By: #### R [id number] #### [facility] [address] [place] [address] Dr. Ellie Smith Bilirubin [Mass/Vol] 0.4 mg/dL Normal 0.2-1.0 [facility] Comment on above: Performed By: #### R [id number] #### [facility] [address] [place] [address] Dr. Ellie Smith Calcium [Mass/Vol] 9.2 mg/dL Normal 8.5-10.1 [facility] Comment on above: Performed By: #### R [id number] #### [facility] [address] [place] [address] Dr. Ellie Smith Chloride [Moles/Vol] 106 mmol/L Normal 98-107 [facility] Comment on above: Performed By: #### R [id number] #### [facility] [address] [place] [address] Dr. Ellie Smith CO2 [Moles/Vol] 26.1 mmol/L Normal 21.0-32.0 [facility] Comment on above: Performed By: #### R [id number] #### [facility] [address] [place] [address] Dr. Ellie Smith Creatinine [Mass/Vol] 0.68 mg/dL Normal 0.55-1.02 [facility] Comment on above: Performed By: #### R [id number] #### [facility] [address] [place] [address] Dr. Ellie Smith EGFR-AF MOLDOVAN >60 Normal >=60 [facility] Comment on above: Performed By: #### R [id number] #### [facility] [address] [place] [address] Dr. Ellie Smith EGFR-NON AF MOLDOVAN >60 Normal >=60 [facility] Comment on above: Performed By: #### R [id number] #### [facility] [address] [place] [address] [address] Ellie Smith Globulin (S) [Mass/Vol] 3.2 g/dL Normal [facility] Comment on above: Performed By: #### R [id number] #### [facility] [address] [address] [address] Ellie Smith Glucose [Mass/Vol] 99 mg/dL Normal 74-106 [facility] Comment on above: Performed By: #### R [id number] #### [facility] [address] [place] [address] Dr. Ellie Smith Potassium [Moles/Vol] 4.2 mmol/L Normal 3.5-5.1 [facility] Comment on above: Performed By: #### R [id number] #### [facility] [address] [place] [address] Dr. Ellie Smith Protein [Mass/Vol] 7.1 g/dL Normal 6.4-8.2 [facility] Comment on above: Performed By: #### R [id number] #### [facility] [facility] [address] [place] [address] Dr. Ellie Smith Sodium [Moles/Vol] 142 mmol/L Normal 136-145 [facility] Comment on above: Performed By: #### R [id number] #### [facility] [address] [place] [address] Dr. Ellie Smith Urea nitrogen [Mass/Vol] 16.0 mg/dL Normal 7.0-18.0 [facility] Comment on above: Performed By: #### R EVRT3 #### [facility] [address] [place] [address] Dr. Ellie Smith Urea nitrogen/Creatinine [Mass ratio] 23.5 mg/mg Normal [facility] Comment on above: Performed By: #### R EVRT3 #### [facility] [address] [place] [address] Dr. Ellie Smith REVERSE T3on 04-15-2022 Reverse T3, Serum 15.4 ng/dL Normal 9.2-24.1 [facility] Comment on above: Result Comment: This test was developed and its performance characteristics determined by [employer]. It has not been cleared or approved by the Food and Drug Administration. Performed By: #### L ACT #### [facility] [address] [place] [address] Dr. Ellie Smith T3, TOTAL (TRIIODOTHYRONINE) on 04-13-2022 T3, TOTAL 144 ng/dL Normal 71-180 [facility] Comment on above: Performed By: #### A 1C #### [facility] [address] [place] [address] Dr. Ellie Smith FREE T3on 04-12-2022 FREE T3 2.93 pg/mlL Normal 2.18-3.98 [facility] Comment on above: Performed By: #### T SH, FT3 #### [facility] [address] [place] [address] Dr. Ellie Smith FREE T4on 04-12-2022 Free T4 [Mass/Vol] 0.89 ng/dL Normal 0.76-1.46 [facility] Comment on above: Performed By: #### R EVRT3 #### [facility] [address] [place] [address] Dr. Ellie Smith TSHon 04-12-2022 TSH 0.116 uIU/mL Critically low 0.358-3.74 0 [facility] Comment on above: Performed By: #### T SH, FT3 #### [facility] [address] [place] [address] Dr. Ellie Smith LIPID PROFILEon 03-29-2022 CHOL-HDL RATIO NORM SEE BELOW Normal [facility] Comment on above: Result Comment: 3.3 - 4.4 LOW RISK 4.4 - 7.1 AVERAGE RISK 7.1 - 11.0 MODERATE RISK >11.0 HIGH RISK Performed By: #### A 1C #### [facility] [address] [place] [address] Dr. Ellie Smith Cholesterol [Mass/Vol] 102 mg/dL Normal <=200 [facility] Comment on above: Performed By: #### A 1C #### [facility] [address] [place], [place] [address] Dr. Ellie Smith Cholesterol in HDL [Mass/Vol] 56 mg/dL Normal 40-60 [facility] Comment on above: Performed By: #### A 1C #### [facility] [address] [place], [place] [address] Dr. Ellie Smith Cholesterol in LDL [Mass/Vol] 36.8 mg/dL Normal [facility] Comment on above: Performed By: #### A 1C #### [facility] [address] [address] [address] Ellie Smith Cholesterol.total/Chol esterol in HDL [Mass ratio] 1.8 {ratio} Normal [facility] Comment on above: Performed By: #### A 1C #### [facility] [address] [address] [address] Ellie Smith HDL NORMAL > or = 60 mg/dl - LO W CARDIOVASCULAR RISK <40 mg/dl - HIGH CARDIOVASCULAR RISK Normal [facility] Comment on above: Performed By: #### A 1C #### [facility] [address] [address] [address] Ellie Smith LDL CALC NORMAL SEE BELOW Normal [facility] Comment on above: Result Comment: <100 mg/dl OPTIMAL 100 - 129 mg/dl NEAR OR ABOVE OPTIMAL 130 - 159 mg/dl BORDERLINE HIGH 160 - 189 mg/dl HIGH >190 mg/dl VERY HIGH Performed By: #### A 1C #### [facility] [address] [address] [address] Ellie Smith Triglyceride [Mass/Vol] 46 mg/dL Normal <=150 [facility] Comment on above: Performed By: #### A 1C #### [facility] [address] [address] [address] Ellie Smith VLDL CALC 9.2 mg/dL Normal [facility] Comment on above: Performed By: #### A 1C #### [facility] [address] [address] [address] Ellie Smith SGOTon 03-29-2022 AST [Catalytic activity/Vol] 17 U/L Normal 15-37 [facility] Comment on above: Performed By: #### A 1C #### [facility] [address] [place], [place] [address] Dr. Ellie Smith [facility] 03-29-2022 ALT [Catalytic activity/Vol] 30 U/L Normal 14-59 [facility] Comment on above: Performed By: #### A 1C #### [facility] [address] [place], [place] [address] Dr. 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 Hooks Jan 18, 2022: dCX PCI/[place] 2.5/34mm, 2.75/8mm mRCA PCI/[place] Marie 3.0/12 AND [...] Status:Complete; Done: 17Mar2022 Coronary artery disease involving [place] coronary artery of [place] heart without angina pectoris, Echocardiogram abnormal Disability [...] FOR CHES (more content not included)... Normal Take5 Tobacco Screening.on 022 Adult depression screening assessment No [facility] [employer] 600 DO Work Phone: Fall risk assessment a) No falls within the last year [facility] [employer] ([employer])[facility] [employer] 600 DO Work Phone: Tobacco use status CPHS b) No [facility] 600 DO Work Phone: PHQ-2 VITALSon 02-15-2022 Adult depression screening assessment Yes [facility] [employer] 250 DO Work Phone: Adult depression screening assessment No [facility] [employer] 250 DO Work Phone: Fall risk assessment a) No falls within the last year [facility] [employer] 250 DO Work Phone: Tobacco use status CPHS b) No [facility] [employer] 250 DO Work Phone: PHQ-2 VITALS 0-Not at all [facility] [employer] 250 DO Work Phone: PHQ-2 VITALS 3-Nearly every day [facility] [employer] 250 DO Work Phone: PHQ-2 VITALS 1-Several days [facility] [employer] 250 DO Work Phone: PHQ-2 VITALS Very Difficult -[facility] [employer] jayne 250 DO Work Phone: Activated partial thrombopla stin time (aPTT) in platelet poor plasma by coagulation aOrdered By: Diony Hooks on 02-03-2022 aPTT Coag (PPP) [Time] 31.4 s 25.1-36.5 [facility] Basophils Auto (Bld) [#/Vol] Ordered By: Diony Hooks on 02-03-2022 Basophils (Bld) [#/Vol] 0.1 10*3/uL 0.0-0.2 [facility] Basophils/100 WBC Auto (Bld) Ordered By: Diony Hooks on 02-03-2022 Basophils/100 WBC (Bld) 0.6 % . [facility] Blood hemoglobin measurement (mass/volume)Ordered By: Diony Hooks on 02-03-2022 Hemoglobin (Bld) [Mass/Vol] 14.3 g/dL 11.8-15.4 [facility] Blood leukocytes automated c ount (number/volume)Ordered By: Diony Hooks on 02-03-2022 WBC (Bld) [#/Vol] 12.0 10*3/uL 4.5-11.0 [facility] Eosinophils Auto (Bld) [#/Vo l]Ordered By: Diony Hooks on 02-03-2022 Eosinophils (Bld) [#/Vol] 0.4 10*3/uL 0.0-0.45 [facility] Eosinophils/100 WBC Auto (Bl d)Ordered By: Diony Hooks on 02-03-2022 Eosinophils/100 WBC (Bld) 3.4 % . [facility] Erythrocyte distribution wid th Auto (RBC) [Ratio]Ordered By: Diony Hooks on 02-03-2022 Erythrocyte distribution width (RBC) [Ratio] 14.4 % 11.9-15.3 [facility] Hematocrit Auto (Bld) [Volum e fraction]Ordered By: Diony Hooks on 02-03-2022 Hematocrit (Bld) [Volume fraction] 42.4 % 34.0-46.4 [facility] Laboratory - CoagulationOrde red By: Diony Hooks on 02-03-2022 PT Coag (PPP) [Time] 10.9 s 9.0-12.9 [facility] - Hematology and Cell countsOrdered By: Diony Hooks on 02-03-2022 Nucleated RBC/100 WBC (Bld) [Ratio] 0.0 % 0-0.5 [facility] Lymphocytes Auto (Bld) [#/Vo l]Ordered By: Diony Hooks on 02-03-2022 Lymphocytes (Bld) [#/Vol] 2.1 10*3/uL 1.00-4.8 [facility] Lymphocytes/100 WBC Auto (Bl d)Ordered By: Diony Hoosk on 02-03-2022 Lymphocytes/100 WBC (Bld) 17.5 % . [facility] MCH Auto (RBC) [Entitic mass ]Ordered By: Diony Hooks on 02-03-2022 MCH (RBC) [Entitic mass] 31.5 pg 24.7-34.3 [facility] MCHC Auto (RBC) [Mass/Vol]Or dered By: Diony Hooks on 02-03-2022 MCHC (RBC) [Mass/Vol] 33.8 g/dL 32.0-35.0 [facility] MCV Auto (RBC) [Entitic vol] Ordered By: Diony Hooks on 02-03-2022 MCV (RBC) [Entitic vol] 93.2 fL 80-100 [facility] Monocytes Auto (Bld) [#/Vol] Ordered By: Diony Hooks on 02-03-2022 Monocytes (Bld) [#/Vol] 0.5 10*3/uL 0.0-0.8 [facility] Monocytes/100 WBC Auto (Bld) Ordered By: Diony Hooks on 02-03-2022 Monocytes/100 WBC (Bld) 4.4 % . [facility] Neutrophils Auto (Bld) [#/Vo l]Ordered By: Diony Hooks on 02-03-2022 Neutrophils (Bld) [#/Vol] 8.9 10*3/uL 1.8-7.7 [facility] Neutrophils/100 WBC Auto (Bl d)Ordered By: Diony Hooks on 02-03-2022 Neutrophils/100 WBC (Bld) 74.1 % . [facility] Platelet mean volume Auto (B ld) [Entitic vol]Ordered By: Diony Hooks on 02-03-2022 Platelet mean volume (Bld) [Entitic vol] 7.5 fL 6.3-10.7 [facility] Platelet poor plasma interna tional normalized ratio (INR) by coagulation assay (relatOrdered By: Diony Hooks on 02-03-2022 INR Coag (PPP) [Relative time] 1.0 {INR} [facility] Comment on above: INR Therapeutic Rang e [...] (Bld) [#/Vol] 337 10*3/uL 150-450 [facility] RBC Auto (Bld) [#/Vol]Ordere d By: Diony Hooks on 02-03-2022 RBC (Bld) [#/Vol] 4.56 10*6/uL 3.60-5.00 [facility] COVID-19 SOFIAOrdered By: St anup Hooks on 02-01-2022 SARS-CoV+SARS-CoV-2 (COVID-19) Ag IA.rapid Ql (Resp) Negative Negative [facility] Comment on above: This is a duplicate Kasey SARS Antigen (JERRY) result to be used for statistical tracking purpose only. Creatinine and Glomerular fi ltration rate.predicted panel (S/P/Bld)Ordered By: Diony Hooks on 02-01-2022 Creatinine [Mass/Vol] 0.85 mg/dL 0.44-1.03 [facility] Estimated glomerular filtrat ion rate (GFR) non- AmericanOrdered By: Diony Hooks on 02-01-2022 GFR/1.73 sq M.predicted among non-blacks MDRD (S/P/Bld) [Vol rate/Area] > 60 mL/Min [facility] No Panel InformationOrdered By: Diony Hooks on 02-01-2022 Estimated GFR () > 60 mL/Min [facility] Comment on above: GFR estimated refere nce range: According to KDOQI guidelines, <60 ml/min/1.73m2 is sufficient to diagnose a patient with chronic kidney disease. Pharmacy Creatinine Clearance (Chem N/A [facility] SARS Antigen (LFIA) [facility] Serum or plasma calcium norma urement (mass/volume)Ordered By: Diony Hooks on 02-01-2022 Calcium [Mass/Vol] 9.7 mg/dL 8.2-10.2 [facility] Serum or plasma chloride tam surement (moles/volume)Ordered By: Diony Hooks on 02-01-2022 Chloride [Moles/Vol] 97 mmol/L 95-114 [facility] Serum or plasma glucose norma urement (mass/volume)Ordered By: Diony Hooks on 02-01-2022 Glucose [Mass/Vol] 86 mg/dL 70-100 [facility] Comment on above: ADA recommended refe rence range Random Glucose Reference Range is dependent on time and content of last meal. Glucose of more than 200 mg/dL in a nonstressed, ambulatory subject supports the diagnosis of Diabetes Mellitus. Serum or plasma potassium me asurement (moles/volume)Ordered By: Diony Hooks on 02-01-2022 Potassium [Moles/Vol] 4.7 mmol/L 3.5-5.1 [facility] Serum or plasma sodium measu rement (moles/volume)Ordered By: Diony Hooks on 02-01-2022 Sodium [Moles/Vol] 132 mmol/L 136-146 [facility] Serum or plasma total carbon dioxide measurement (moles/volume)Ordered By: Diony Hooks on 02-01-2022 CO2 [Moles/Vol] 26.0 mmol/L 22.0-30.0 [facility] Serum or plasma urea nitroge n measurement (mass/volume)Ordered By: Diony Hooks on 02-01-2022 Urea nitrogen [Mass/Vol] 10 mg/dL 03-04 [facility] BNPon 01-28-2022 Natriuretic peptide B (Bld) [Mass/Vol] 945.0 pg/mL Normal <=1,800.0 [facility] Comment on above: Performed By: #### R [id number] #### [facility] [address] [place] [address] Dr. Ellie Smith CARDIAC RAQUEL ADMITon 022 CK [Catalytic activity/Vol] 122 U/L Normal 26-192 [facility] Comment on above: Performed By: #### R [id number] #### [facility] [address] [place] [address] Dr. Ellie Smith CK.MB [Mass/Vol] 0.65 ng/mL Normal <=3.60 [facility] Comment on above: Performed By: #### R EVRT3 #### [facility] [address] [place] [address] Dr. Ellie Smith HSTROP 63.5 pg/mL Critically high 4.0-51.3 [facility] Comment on above: Result Comment: CUT- OFF POINTS HAVE BEEN ESTABLISHED BASED ON THE FOURTH UNIVERSAL DEFINITIONS OF MYOCARDIAL INFARCTION. THE UPPER REFERENCE LIMIT (URL) OF TROPONIN, DEFINED THE 99TH PERCENTILE OF cTnI DISTRIBUTION IN A REFERENCE POPULATION, HAS BEEN CONFIRMED THE DECISION THRESHOLD FOR MA DIAGNOSIS. Performed By: #### R [id number] #### [facility] [address] [place] [address] Dr. Ellie Smith MATEO 26 ng/mL Normal 9-82 [facility] Comment on above: Performed By: #### R [id number] #### [facility] [address] [place] [address] Dr. Ellie Smith CBC AUTO DIFFon 01-28-2022 BASO # 0.1 103/ul Normal 0.0-0.1 [facility] Comment on above: Performed By: #### L ACT #### [facility] [address] [place] [address] Dr. Ellie Smith Basophils/100 WBC (Bld) 0.6 % Normal 0.2-2.0 [facility] Comment on above: Performed By: #### L ACT #### [facility] [address] [address] [address] Ellie Smith EO # 0.4 103/ul Normal 0.0-0.7 [facility] Comment on above: Performed By: #### L ACT #### [facility] [address] [address] [address] Ellie Smith Eosinophils/100 WBC (Bld) 4.4 % Normal 0.9-7.0 [facility] Comment on above: Performed By: #### L ACT #### [facility] [address] [place] [address] Dr. Ellie Smith Erythrocyte distribution width (RBC) [Ratio] 13.7 % Normal 11.0-15.0 [facility] Comment on above: Performed By: #### L ACT #### [facility] [address] [place] [address] Dr. Ellie Smith Hematocrit (Bld) [Volume fraction] 35.8 % Critically low 36.0-48.0 [facility] Comment on above: Performed By: #### L ACT #### [facility] [address] [place] [address] Dr. Ellie Smith Hemoglobin (Bld) [Mass/Vol] 11.9 g/dL Critically low 12.0-16.0 [facility] Comment on above: Performed By: #### L ACT #### [facility] [address] [place] [address] Dr. Ellie Smith IG # 0.03 10e3/ul Normal 0.00-0.03 [facility] Comment on above: Performed By: #### L ACT #### [facility] [address] [place] [address] Dr. Ellie Smith IG % 0.4 % Normal 0.0-0.5 [facility] Comment on above: Performed By: #### L ACT #### [facility] [address] [place] [address] Dr. Ellie Smith LYMPH # 1.7 103/ul Normal 1.2-3.8 [facility] Comment on above: Performed By: #### L ACT #### [facility] [address] [place] [address] Dr. Ellie Smith Lymphocytes/100 WBC (Bld) 19.6 % Critically low 20.5-60.0 [facility] Comment on above: Performed By: #### L ACT #### [facility] [address] [place] [address] Dr. Ellie Smith MANUAL DIFF REQ NO Normal [facility] Comment on above: Performed By: #### L ACT #### [facility] [address] [address] [address] Ellie Smith MCH (RBC) [Entitic mass] 31.4 pg Normal 26.7-34.0 [facility] Comment on above: Performed By: #### L ACT #### [facility] [address] [place] [address] Dr. Ellie Smith MCHC (RBC) [Mass/Vol] 33.2 g/dL Normal 29.9-35.2 [facility] Comment on above: Performed By: #### L ACT #### [facility] [address] [place] [address] Dr. Ellie Smith MCV (RBC) [Entitic vol] 94.5 fL Normal 81.0-99.0 [facility] Comment on above: Performed By: #### L ACT #### [facility] [address] [place] [address] Dr. Ellie Smith MONO # 0.5 103/ul Normal 0.3-0.8 [facility] Comment on above: Performed By: #### L ACT #### [facility] [address] [place] [address] Dr. Ellie Smith Monocytes/100 WBC (Bld) 5.4 % Normal 1.7-12.0 [facility] Comment on above: Performed By: #### L ACT #### [facility] [address] [place] [address] Dr. Ellie Smith NEUT # 6.0 103/ul Normal 1.4-6.5 [facility] Comment on above: Performed By: #### L ACT #### [facility] [address] [place] [address] Dr. Ellie Smith Neutrophils/100 WBC (Bld) 69.6 % Normal 43.0-75.0 [facility] Comment on above: Performed By: #### L ACT #### [facility] [address] [place] [address] Dr. Ellie Smith Platelet mean volume (Bld) [Entitic vol] 9.5 fL Normal 9.5-13.5 [facility] Comment on above: Performed By: #### L ACT #### [facility] [address] [place] [address] Dr. Ellie Smith PLT 252 103/ul Normal 150-450 [facility] Comment on above: Performed By: #### L ACT #### [facility] [address] [place] [address] Dr. Ellie Smith RBC 3.79 106/ul Critically low 4.20-5.40 [facility] Comment on above: Performed By: #### L ACT #### [facility] [address] [place] [address] Dr. Ellie Smith WBC 8.6 103/ul Normal 4.0-11.0 [facility] Comment on above: Performed By: #### L ACT #### [facility] [address] [place] [address] Dr. Ellie Smith POINT OF CARE GLUCOSEon 01-10 Glucose [Mass/Vol] 93 mg/dL Normal 74-106 [facility] Comment on above: Performed By: #### A 1C #### [facility] [address] [place] [address] Dr. Ellie Smith PROF 14(COMP METB)on 022 Albumin [Mass/Vol] 3.2 g/dL Critically low 3.4-5.0 [facility] Comment on above: Performed By: #### R [id number] #### [facility] [address] [place] [address] Dr. Ellie Smith Albumin/Globulin [Mass ratio] 1.1 {ratio} Normal [facility] Comment on above: Performed By: #### R [id number] #### [facility] [address] [address] [address] Ellie Smith ALP [Catalytic activity/Vol] 52 U/L Normal 46-116 [facility] Comment on above: Performed By: #### R [id number] #### [facility] [address] [place] [address] Dr. Ellie Smith ALT [Catalytic activity/Vol] 52 U/L Normal 14-59 [facility] Comment on above: Performed By: #### R [id number] #### [facility] [address] [address] [address] Ellie Smith Anion gap [Moles/Vol] 9.7 mmol/L Normal [facility] Comment on above: Performed By: #### R EVRT3 #### [facility] [address] [place] [address] Dr. Ellie Smith AST [Catalytic activity/Vol] 22 U/L Normal 15-37 [facility] Comment on above: Performed By: #### R [id number] #### [facility] [address] [place] [address] Dr. Ellie Smith Bilirubin [Mass/Vol] 0.3 mg/dL Normal 0.2-1.0 [facility] Comment on above: Performed By: #### R EVRT3 #### [facility] [address] [place] [address] Dr. Ellie Smith Calcium [Mass/Vol] 8.4 mg/dL Critically low 8.5-10.1 [facility] Comment on above: Performed By: #### R EVRT3 #### [facility] [address] [place] [address] Dr. Ellie Smith Chloride [Moles/Vol] 104 mmol/L Normal 98-107 [facility] Comment on above: Performed By: #### R EVRT3 #### [facility] [address] [address] [address] Ellie Smith CO2 [Moles/Vol] 25.5 mmol/L Normal 21.0-32.0 [facility] Comment on above: Performed By: #### R EVRT3 #### [facility] [address] [place] [address] Dr. Ellie Smith Creatinine [Mass/Vol] 0.71 mg/dL Normal 0.55-1.02 [facility] Comment on above: Performed By: #### R EVRT3 #### [facility] [address] [place] [address] Dr. Ellie Smith EGFR-AF MOLDOVAN >60 Normal >=60 [facility] Comment on above: Performed By: #### R EVRT3 #### [facility] [address] [place] [address] Dr. Ellie Smith EGFR-NON AF MOLDOVAN >60 Normal >=60 [facility] Comment on above: Performed By: #### R EVRT3 #### [facility] [address] [place] [address] Dr. Ellie Smith Globulin (S) [Mass/Vol] 2.9 g/dL Normal [facility] Comment on above: Performed By: #### R EVRT3 #### [facility] [address] [place] [address] Dr. Ellie Smith Glucose [Mass/Vol] 102 mg/dL Normal 74-106 [facility] Comment on above: Performed By: #### R EVRT3 #### [facility] [address] [place] [address] Dr. Ellie Smith Potassium [Moles/Vol] 4.2 mmol/L Normal 3.5-5.1 [facility] Comment on above: Performed By: #### R EVRT3 #### [facility] [address] [place] [address] Dr. Ellie Smith Protein [Mass/Vol] 6.1 g/dL Critically low 6.4-8.2 Th [facility] Comment on above: Performed By: #### R EVRT3 #### [facility] [address] [place] [address] Dr. Ellie Smith Sodium [Moles/Vol] 135 mmol/L Critically low 136-145 Th [facility] Comment on above: Performed By: #### R EVRT3 #### [facility] [address] [place] [address] Dr. Ellie Smith Urea nitrogen [Mass/Vol] 11.0 mg/dL Normal 7.0-18.0 [facility] Comment on above: Performed By: #### R [id number] #### [facility] [address] [place] [address] Dr. Ellie Smith Urea nitrogen/Creatinine [Mass ratio] 15.5 mg/mg Normal [facility] Comment on above: Performed By: #### R [id number] #### [facility] [address] [place] [address] Dr. Ellie Smith CARDIAC RAQUEL 3-6on 2 CK [Catalytic activity/Vol] 192 U/L Normal 26-192 [facility] Comment on above: Performed By: #### L ACT #### [facility] [address] [place] [address] Dr. Ellie Smith CK.MB [Mass/Vol] 0.70 ng/mL Normal <=3.60 [facility] Comment on above: Performed By: #### L ACT #### [facility] [address] [place] [address] Dr. Ellie Smith HSTROP 88.8 pg/mL Critically high 4.0-51.3 [facility] Comment on above: Result Comment: CUT- OFF POINTS HAVE BEEN ESTABLISHED BASED ON THE FOURTH UNIVERSAL DEFINITIONS OF MYOCARDIAL INFARCTION. THE UPPER REFERENCE LIMIT (URL) OF TROPONIN, DEFINED THE 99TH PERCENTILE OF cTnI DISTRIBUTION IN A REFERENCE POPULATION, HAS BEEN CONFIRMED THE DECISION THRESHOLD FOR MA DIAGNOSIS. Performed By: #### L ACT #### [facility] [address] [place] [address] Dr. Ellie Smith CK [Catalytic activity/Vol] 213 U/L Critically high 26-192 [facility] Comment on above: Performed By: #### P OCGLUC #### [facility] [address] [place] [address] Dr. Ellie Smith CK.MB [Mass/Vol] 0.90 ng/mL Normal <=3.60 [facility] Comment on above: Performed By: #### P OCGLUC #### [facility] [address] [place] [address] Dr. Ellie Smith HSTROP 108.1 pg/mL Critically high 4.0-51.3 [facility] Comment on above: Result Comment: CUT- OFF POINTS HAVE BEEN ESTABLISHED BASED ON THE FOURTH UNIVERSAL DEFINITIONS OF MYOCARDIAL INFARCTION. THE UPPER REFERENCE LIMIT (URL) OF TROPONIN, DEFINED THE 99TH PERCENTILE OF cTnI DISTRIBUTION IN A REFERENCE POPULATION, HAS BEEN CONFIRMED THE DECISION THRESHOLD FOR MA DIAGNOSIS. repeated Performed By: #### P OCGLUC #### [facility] [address] [place] [address] Dr. Ellie Smith CBC AUTO DIFFon 01-27-2022 BASO # 0.1 103/ul Normal 0.0-0.1 [facility] Comment on above: Performed By: #### P OCGLUC #### [facility] [address] [place] [address] Dr. Ellie Smith Basophils/100 WBC (Bld) 0.5 % Normal 0.2-2.0 [facility] Comment on above: Performed By: #### P OCGLUC #### [facility] [address] [place] [address] Dr. Ellie Smith EO # 0.4 103/ul Normal 0.0-0.7 [facility] Comment on above: Performed By: #### P OCGLUC #### [facility] [address] [place] [address] Dr. Ellie Smith Eosinophils/100 WBC (Bld) 3.2 % Normal 0.9-7.0 [facility] Comment on above: Performed By: #### P OCGLUC #### [facility] [address] [place] [address] Dr. Ellie Smith Erythrocyte distribution width (RBC) [Ratio] 13.7 % Normal 11.0-15.0 [facility] Comment on above: Performed By: #### P OCGLUC #### [facility] [address] [place] [address] Dr. Ellie Smith Hematocrit (Bld) [Volume fraction] 40.5 % Normal 36.0-48.0 [facility] Comment on above: Performed By: #### P OCGLUC #### [facility] [address] [address] [address] Ellie Smith Hemoglobin (Bld) [Mass/Vol] 13.4 g/dL Normal 12.0-16.0 [facility] Comment on above: Performed By: #### P OCGLUC #### [facility] [address] [place] [address] Dr. Ellie Smith IG # 0.04 10e3/ul Critically high 0.00-0.03 [facility] Comment on above: Performed By: #### P OCGLUC #### [facility] [address] [place] [address] Dr. Ellie Smith IG % 0.3 % Normal 0.0-0.5 [facility] Comment on above: Performed By: #### P OCGLUC #### [facility] [address] [place] [address] Dr. Ellie Smith LYMPH # 2.4 103/ul Normal 1.2-3.8 [facility] Comment on above: Performed By: #### P OCGLUC #### [facility] [address] [place] [address] Dr. Ellie Smith Lymphocytes/100 WBC (Bld) 18.6 % Critically low 20.5-60.0 [facility] Comment on above: Performed By: #### P OCGLUC #### [facility] [address] [place] [address] Dr. Ellie Smith MANUAL DIFF REQ NO Normal [facility] Comment on above: Performed By: #### P OCGLUC #### [facility] [address] [place] [address] Dr. Ellie Smith MCH (RBC) [Entitic mass] 31.0 pg Normal 26.7-34.0 [facility] Comment on above: Performed By: #### P OCGLUC #### [facility] [address] [place] [address] Dr. Ellie Smith MCHC (RBC) [Mass/Vol] 33.1 g/dL Normal 29.9-35.2 [facility] Comment on above: Performed By: #### P OCGLUC #### [facility] [address] [place] [address] Dr. Ellie Smith MCV (RBC) [Entitic vol] 93.8 fL Normal 81.0-99.0 [facility] Comment on above: Performed By: #### P OCGLUC #### [facility] [address] [address] [address] Ellie Smith MONO # 0.7 103/ul Normal 0.3-0.8 [facility] Comment on above: Performed By: #### P OCGLUC #### [facility] [address] [address] [address] Ellie Smith Monocytes/100 WBC (Bld) 5.5 % Normal 1.7-12.0 [facility] Comment on above: Performed By: #### P OCGLUC #### [facility] [address] [place] [address] Dr. Ellie Smith NEUT # 9.1 103/ul Critically high 1.4-6.5 [facility] Comment on above: Performed By: #### P OCGLUC #### [facility] [address] [place] [address] Dr. Ellie Smith Neutrophils/100 WBC (Bld) 71.9 % Normal 43.0-75.0 [facility] Comment on above: Performed By: #### P OCGLUC #### [facility] [address] [place] [address] Dr. Ellie Smith Platelet mean volume (Bld) [Entitic vol] 9.6 fL Normal 9.5-13.5 [facility] Comment on above: Performed By: #### P OCGLUC #### [facility] [address] [place] [address] Dr. Ellie Smith PLT 307 103/ul Normal 150-450 [facility] Comment on above: Performed By: #### P OCGLUC #### [facility] [address] [address] [address] Ellie Smith RBC 4.32 106/ul Normal 4.20-5.40 [facility] Comment on above: Performed By: #### P OCGLUC #### [facility] [address] [place] [address] Dr. Ellie Smith WBC 12.6 103/ul Critically high 4.0-11.0 [facility] Comment on above: Performed By: #### P OCGLUC #### [facility] [id number] Ellie Smith CT ABD/PELVIS WO CONon [...] [place] Date: 2022-01-27 02:44 Normal [facility] CTA CHEST WO W CONon [...] [place] Date: 2022-01-27 03:46 Normal [facility] Covid-19 PCR (CVDTB)on 01-10 SARS-CoV-2 (COVID-19) RNA MEI+probe Ql (Unsp spec) Not detected Normal NOT DETECTED [facility] Comment on above: Result Comment: [...] for this test is supported by the [place] of [employer] and Human Service's declaration that [...] used). Performed By: #### R EVRT3 #### [facility] [address] [place] [address] Dr. Ellie Smith D-DIMERon 01-27-2022 D-DIMER 0.71 mg/L FEU Critically high <=0.59 [facility] Comment on above: Performed By: #### L ACT #### [facility] [address] [place] [address] Dr. Ellie Smith D-DIMER COMMENTS SEE BELOW Normal [facility] Comment on above: Result Comment: Incr [...] hospitalization. Performed By: #### L ACT #### [facility] [address] [place] [address] Dr. Ellie Smith ER URINE PROFILEon 2 Bilirubin Ql (U) Negative Normal NEGATIVE [facility] Comment on above: Performed By: #### P OCGLUC #### [facility] [address] [place] [address] Dr. Ellie Smith Clarity (U) CLEAR Normal CLEAR [facility] Comment on above: Performed By: #### P OCGLUC #### [facility] [address] [place] [address] Dr. Ellie Smith Color (U) LT. YELLOW Normal YELLOW [facility] Comment on above: Performed By: #### P OCGLUC #### [facility] [address] [place] [address] Dr. Ellie DENNYD A micrscopic examina tion will be performed if indicated. Normal [facility] Comment on above: Performed By: #### P OCGLUC #### [facility] [address] [place] [address] Dr. Ellie Smith Glucose Ql (U) Negative Normal NEGATIVE [facility] Comment on above: Performed By: #### P OCGLUC #### [facility] [address] [place] [address] Dr. Ellie Smith Hemoglobin Ql (U) Negative Normal NEGATIVE [facility] Comment on above: Performed By: #### P OCGLUC #### [facility] [address] [place] [address] Dr. Ellie Smith Ketones Ql (U) Negative Normal NEGATIVE [facility] Comment on above: Performed By: #### P OCGLUC #### [facility] [address] [place] [address] Dr. Ellie Smith LEUKOCYTES Negative Normal NEGATIVE [facility] Comment on above: Performed By: #### P OCGLUC #### [facility] [address] [place] [address] Dr. Ellie Smith Nitrite Ql (U) Negative Normal NEGATIVE [facility] Comment on above: Performed By: #### P OCGLUC #### [facility] [address] [place] [address] Dr. Ellie Smith pH (U) 6.0 [pH] Normal 5-9 [facility] Comment on above: Performed By: #### P OCGLUC #### [facility] [address] [place] [address] Dr. Ellie Smith SPEC GRAVITY 1.010 Normal 1.005-<=1. 025 [facility] Comment on above: Performed By: #### P OCGLUC #### [facility] [address] [place] [address] Dr. Ellie Smith UA PROTEIN Negative Normal NEGATIVE/ TRACE [facility] Comment on above: Performed By: #### P OCGLUC #### [facility] [address] [place] [address] Dr. Ellie Smith UR MICRO IND NOT INDICATED Normal [facility] Comment on above: Performed By: #### P OCGLUC #### [facility] [address] [place] [address] Dr. Ellie Smith Urobilinogen Qn (U) 0.2 {Tamia'U}/dL Normal 0.2 - 1. 0 [facility] Comment on above: Performed By: #### P OCGLUC #### [facility] [address] [place] [address] Dr. Ellie Smith LACTATE/LACTIC ACIDon 2021 Lactate [Moles/Vol] 1.8 mmol/L Normal 0.4-1.9 [facility] Comment on above: Performed By: #### L ACT #### [facility] [address] [place] [address] Dr. Ellie Smith POINT OF CARE GLUCOSEon 01-10 Glucose [Mass/Vol] 132 mg/dL Critically high 74-106 [facility] Comment on above: Performed By: #### L ACT #### [facility] [address] [place] [address] Dr. Ellie Smith Glucose [Mass/Vol] 99 mg/dL Normal 74-106 [facility] Comment on above: Performed By: #### L ACT #### [facility] [address] [place] [address] Dr. Ellie Smith Glucose [Mass/Vol] 117 mg/dL Critically high 74-106 [facility] Comment on above: Performed By: #### P OCGLUC #### [facility] [address] [place] [address] Dr. Ellie Smith Glucose [Mass/Vol] 105 mg/dL Normal 74-106 [facility] Comment on above: Performed By: #### L ACT #### [facility] [address] [place] [address] Dr. Ellie Smith PROF 14(COMP METB)on 022 Albumin [Mass/Vol] 3.6 g/dL Normal 3.4-5.0 [facility] Comment on above: Performed By: #### C MP #### [facility] [address] [place] [address] Dr. Ellie Smith Albumin/Globulin [Mass ratio] 1.1 {ratio} Normal [facility] Comment on above: Performed By: #### C MP #### [facility] [address] [place] [address] Dr. Ellie Smith ALP [Catalytic activity/Vol] 61 U/L Normal 46-116 [facility] Comment on above: Performed By: #### C MP #### [facility] [address] [address] [address] Ellie Smith ALT [Catalytic activity/Vol] 53 U/L Normal 14-59 [facility] Comment on above: Performed By: #### C MP #### [facility] [address] [address] [address] Ellie Smith Anion gap [Moles/Vol] 14.7 mmol/L Normal [facility] e [facility] Comment on above: Performed By: #### C MP #### [facility] [address] [place] [address] Dr. Ellie Smith AST [Catalytic activity/Vol] 43 U/L Critically high 15-37 [facility] Comment on above: Performed By: #### C MP #### [facility] [address] [place] [address] Dr. Ellie Smith Bilirubin [Mass/Vol] 0.4 mg/dL Normal 0.2-1.0 [facility] Comment on above: Performed By: #### C MP #### [facility] [address] [place] [address] Dr. Ellie Smith Calcium [Mass/Vol] 8.6 mg/dL Normal 8.5-10.1 [facility] Comment on above: Performed By: #### C MP #### [facility] [address] [address] [address] Ellie Smith Chloride [Moles/Vol] 99 mmol/L Normal 98-107 [facility] Comment on above: Performed By: #### C MP #### [facility] [address] [address] [address] Ellie Smith CO2 [Moles/Vol] 22.4 mmol/L Normal 21.0-32.0 [facility] Comment on above: Performed By: #### C MP #### [facility] [address] [address] [address] Ellie Smith Creatinine [Mass/Vol] 0.90 mg/dL Normal 0.55-1.02 [facility] Comment on above: Performed By: #### C MP #### [facility] [address] [address] [address] Ellie Smith EGFR-AF MOLDOVAN >60 Normal >=60 [facility] Comment on above: Performed By: #### C MP #### [facility] [address] [address] [address] Ellie Smith EGFR-NON AF MOLDOVAN 60 mL/min/1.73m2 Normal >=60 [facility] Comment on above: Performed By: #### C MP #### [facility] [address] [address] [address] Ellie Smith Globulin (S) [Mass/Vol] 3.3 g/dL Normal [facility] Comment on above: Performed By: #### C MP #### [facility] [address] [address] [address] Ellie Smith Glucose [Mass/Vol] 108 mg/dL Critically high 74-[address] [facility] Comment on above: Performed By: #### C MP #### [facility] [address] [address] [address] Ellie Smith Potassium [Moles/Vol] 4.1 mmol/L Normal 3.5-5.1 [facility] Comment on above: Performed By: #### C MP #### [facility] [address] [address] [address] Ellie Smith Protein [Mass/Vol] 6.9 g/dL Normal 6.4-8.2 [facility] Comment on above: Performed By: #### C MP #### [facility] [address] [address] [address] Ellie Smith Sodium [Moles/Vol] 132 mmol/L Critically low 136-145 [facility] Comment on above: Performed By: #### C MP #### [facility] [address] [address] [address] Ellie Smith Urea nitrogen [Mass/Vol] 15.0 mg/dL Normal 7.0-18.0 [facility] Comment on above: Performed By: #### C MP #### [facility] [address] [place] [address] Dr. Ellie Smith Urea nitrogen/Creatinine [Mass ratio] 16.7 mg/mg Normal [facility] Comment on above: Performed By: #### C MP #### [facility] [address] [place] [address] Dr. Ellie Smith PROTIMEon 01-27-2022 INR Coag (PPP) [Relative time] 1.00 {INR} Normal [facility] Comment on above: Performed By: #### P OCGLUC #### [facility] [address] [place] [address] Dr. Ellie Smith INR GUIDELINES SEE BELOW Normal [facility] Comment on above: Result Comment: HIMANSHU RED INR: 2.0 - 3.0 CONDITIONS NOT LISTED BELOW 2.5 - 3.5 FOR PROSTHETIC HEART VALVE REPLACEMENT 2.5 - 3.5 RECURRENT THROMBOSIS Performed By: #### P OCGLUC #### [facility] [address] [place] [address] Dr. Ellie Smith PT Coag (PPP) [Time] 10.8 s Normal 9.0-11.6 [facility] Comment on above: Performed By: #### P OCGLUC #### [facility] [address] [place] [address] Dr. Ellie Smith PTTon 01-27-2022 aPTT Coag (Bld) [Time] 28.6 s Normal 22.3-36.2 [facility] Comment on above: Performed By: #### L ACT #### [facility] [address] [place] [address] Dr. Ellie Smith TROPONIN, HIGH SENSITIVITYon 01-27-2022 HSTROP 116.4 pg/mL Critically high 4.0-51.3 [facility] Comment on above: Result Comment: CUT- OFF POINTS HAVE BEEN ESTABLISHED BASED ON THE FOURTH UNIVERSAL DEFINITIONS OF MYOCARDIAL INFARCTION. THE UPPER REFERENCE LIMIT (URL) OF TROPONIN, DEFINED THE 99TH PERCENTILE OF cTnI DISTRIBUTION IN A REFERENCE POPULATION, HAS BEEN CONFIRMED THE DECISION THRESHOLD FOR MA DIAGNOSIS. Performed By: #### A 1C #### [facility] [address] [place], [place] [address] Dr. Ellie Smith HSTROP 151.5 pg/mL Critically high 4.0-51.3 [facility] Comment on above: Result Comment: CUT- OFF POINTS HAVE BEEN ESTABLISHED BASED ON THE FOURTH UNIVERSAL DEFINITIONS OF MYOCARDIAL INFARCTION. THE UPPER REFERENCE LIMIT (URL) OF TROPONIN, DEFINED THE 99TH PERCENTILE OF cTnI DISTRIBUTION IN A REFERENCE POPULATION, HAS BEEN CONFIRMED THE DECISION THRESHOLD FOR MA DIAGNOSIS. Performed By: #### P OCGLUC #### [facility] [address] [place], [place] [address] Dr. Ellie Smith XR CHEST 1 Von [...] [place] Date: 2022-01-27 01:08 Normal [facility] Albumin [Mass/volume] in Ser um or PlasmaOrdered By: Diony Hooks on 01-21-2022 Albumin [Mass/Vol] 3.4 g/dL 3.2-5.5 [facility] Basophils Auto (Bld) [#/Vol] Ordered By: Diony Hooks on 01-21-2022 Basophils (Bld) [#/Vol] 0.0 10*3/uL 0.0-0.2 [facility] Basophils/100 WBC Auto (Bld) Ordered By: Diony Hooks on 01-21-2022 Basophils/100 WBC (Bld) 0.4 % . [facility] Blood hemoglobin measurement (mass/volume)Ordered By: Diony Hooks on 01-21-2022 Hemoglobin (Bld) [Mass/Vol] 13.3 g/dL 11.8-15.4 [facility] Blood leukocytes automated c ount (number/volume)Ordered By: Diony Hooks on 01-21-2022 WBC (Bld) [#/Vol] 8.5 10*3/uL 4.5-11.0 [facility] Creatinine and Glomerular fi ltration rate.predicted panel (S/P/Bld)Ordered By: Diony Hooks on 01-21-2022 Creatinine [Mass/Vol] 0.72 mg/dL 0.44-1.03 [facility] Eosinophils Auto (Bld) [#/Vo l]Ordered By: Diony Hooks on 01-21-2022 Eosinophils (Bld) [#/Vol] 0.4 10*3/uL 0.0-0.45 [facility] Eosinophils/100 WBC Auto (Bl d)Ordered By: Diony Hooks on 01-21-2022 Eosinophils/100 WBC (Bld) 4.2 % . [facility] Erythrocyte distribution wid th Auto (RBC) [Ratio]Ordered By: Diony Hooks on 01-21-2022 Erythrocyte distribution width (RBC) [Ratio] 14.4 % 11.9-15.3 [facility] Estimated glomerular filtrat ion rate (GFR) non- AmericanOrdered By: Diony Hooks on 01-21-2022 GFR/1.73 sq M.predicted among non-blacks MDRD (S/P/Bld) [Vol rate/Area] > 60 mL/Min [facility] Globulin Calc (S) [Mass/Vol] Ordered By: Diony Hooks on 01-21-2022 Globulin (S) [Mass/Vol] 2.4 g/dL [facility] Glucose Glucometer (BldC) [M ass/Vol]Ordered By: Wiley Beal on 01-21-2022 Glucose [Mass/Vol] 93 mg/dL [facility] Comment on above: Random Glucose Refer ence Range is dependent on time and content of last meal. Glucose of more than 200 mg/dL in a nonstressed, ambulatory subject supports the diagnosis of Diabetes Mellitus. Hematocrit Auto (Bld) [Volum e fraction]Ordered By: Diony Hooks on 01-21-2022 Hematocrit (Bld) [Volume fraction] 40.5 % 34.0-46.4 [facility] Laboratory - Hematology and Cell countsOrdered By: Diony Hooks on 01-21-2022 Nucleated RBC/100 WBC (Bld) [Ratio] 0.0 % 0-0.5 [facility] Lymphocytes Auto (Bld) [#/Vo l]Ordered By: Diony Hooks on 01-21-2022 Lymphocytes (Bld) [#/Vol] 1.2 10*3/uL 1.00-4.8 [facility] Lymphocytes/100 WBC Auto (Bl d)Ordered By: Diony Hooks on 01-21-2022 Lymphocytes/100 WBC (Bld) 14.2 % . [facility] MCH Auto (RBC) [Entitic mass ]Ordered By: Diony Hooks on 01-21-2022 MCH (RBC) [Entitic mass] 30.7 pg 24.7-34.3 [facility] MCHC Auto (RBC) [Mass/Vol]Or dered By: Diony Hooks on 01-21-2022 MCHC (RBC) [Mass/Vol] 32.9 g/dL 32.0-35.0 [facility] MCV Auto (RBC) [Entitic vol] Ordered By: Diony Hooks on 01-21-2022 MCV (RBC) [Entitic vol] 93.1 fL 80-100 [facility] Monocytes Auto (Bld) [#/Vol] Ordered By: Diony Hooks on 01-21-2022 Monocytes (Bld) [#/Vol] 0.6 10*3/uL 0.0-0.8 [facility] Monocytes/100 WBC Auto (Bld) Ordered By: Diony Hooks on 01-21-2022 Monocytes/100 WBC (Bld) 6.7 % . [facility] Neutrophils Auto (Bld) [#/Vo l]Ordered By: Diony Hooks on 01-21-2022 Neutrophils (Bld) [#/Vol] 6.3 10*3/uL 1.8-7.7 [facility] Neutrophils/100 WBC Auto (Bl d)Ordered By: Diony Hooks on 01-21-2022 Neutrophils/100 WBC (Bld) 74.5 % . [facility] No Panel InformationOrdered By: Wiley Beal on 01-21-2022 Bedside Glucose Comment Glu2: cleaned meter [facility] No Panel InformationOrdered By: Diony Hooks on 01-21-2022 Estimated GFR () > 60 mL/Min [facility] Comment on above: GFR estimated refere nce range: According to KDOQI guidelines, <60 ml/min/1.73m2 is sufficient to diagnose a patient with chronic kidney disease. Pharmacy Creatinine Clearance (Chem 55.72 [facility] Platelet mean volume Auto (B ld) [Entitic vol]Ordered By: Diony Hooks on 01-21-2022 Platelet mean volume (Bld) [Entitic vol] 7.8 fL 6.3-10.7 [facility] Platelets Auto (Bld) [#/Vol] Ordered By: Diony Hooks on 01-21-2022 Platelets (Bld) [#/Vol] 235 10*3/uL 150-450 [facility] Protein [Mass/volume] in Ser um or PlasmaOrdered By: Diony Hooks on 01-21-2022 Protein [Mass/Vol] 5.8 g/dL 6.1-7.9 [facility] RBC Auto (Bld) [#/Vol]Ordere d By: Diony Hooks on 01-21-2022 RBC (Bld) [#/Vol] 4.35 10*6/uL 3.60-5.00 [facility] Serum or plasma alanine potter otransferase measurement without P-5'-P (enzymatic activiOrdered By: Diony Hooks on 01-21-2022 ALT No additional P-5'-P [Catalytic activity/Vol] 16 U/L 10-60 [facility] Serum or plasma albumin/glob ulin mass ratioOrdered By: Diony Hooks on 01-21-2022 Albumin/Globulin [Mass ratio] 1.4 {ratio} [facility] Serum or plasma alkaline inge sphatase measurement (enzymatic activity/volume)Ordered By: Diony Hooks on 01-21-2022 ALP [Catalytic activity/Vol] 43 U/L 32-92 [facility] Serum or plasma aspartate am inotransferase measurement (enzymatic activity/volume)Ordered By: Diony Hooks on 01-21-2022 AST [Catalytic activity/Vol] 25 U/L 10-42 [facility] Serum or plasma calcium norma urement (mass/volume)Ordered By: Diony Hooks on 01-21-2022 Calcium [Mass/Vol] 9.1 mg/dL 8.2-10.2 [facility] Serum or plasma chloride tam surement (moles/volume)Ordered By: Diony Hooks on 01-21-2022 Chloride [Moles/Vol] 104 mmol/L 95-114 [facility] Serum or plasma glucose norma urement (mass/volume)Ordered By: Diony Hooks on 01-21-2022 Glucose [Mass/Vol] 98 mg/dL 70-100 [facility] Comment on above: ADA recommended refe rence range Random Glucose Reference Range is dependent on time and content of last meal. Glucose of more than 200 mg/dL in a nonstressed, ambulatory subject supports the diagnosis of Diabetes Mellitus. Serum or plasma potassium me asurement (moles/volume)Ordered By: Diony Hooks on 01-21-2022 Potassium [Moles/Vol] 3.8 mmol/L 3.5-5.1 [facility] Serum or plasma sodium measu rement (moles/volume)Ordered By: Diony Hooks on 01-21-2022 Sodium [Moles/Vol] 135 mmol/L 136-146 [facility] Serum or plasma total biliru bin measurement (mass/volume)Ordered By: Diony Hooks on 01-21-2022 Bilirubin [Mass/Vol] 0.9 mg/dL 0.3-1.2 [facility] Serum or plasma total carbon dioxide measurement (moles/volume)Ordered By: Diony Hooks on 01-21-2022 CO2 [Moles/Vol] 23.4 mmol/L 22.0-30.0 [facility] Serum or plasma urea nitroge n measurement (mass/volume)Ordered By: Diony Hooks on 01-21-2022 Urea nitrogen [Mass/Vol] 9 mg/dL 9-23 [facility] Activated partial thrombopla stin time (aPTT) in platelet poor plasma by coagulation aOrdered By: Wiley Beal on 01-20-2022 aPTT Coag (PPP) [Time] 70.5 s 25.1-36.5 [facility] Cholesterol [Mass/volume] in Serum or PlasmaOrdered By: Justa Westfall on 01-19-2022 Cholesterol [Mass/Vol] 181 mg/dL 140-200 [facility] Comment on above: Chol less than 200 m g/dl low risk Chol 201-239 mg/dl borderline risk Chol 240 mg/dl and greater high risk Cholesterol in LDL Calc [Mas s/Vol]Ordered By: Justa Westfall on 01-19-2022 Cholesterol in LDL [Mass/Vol] 112 mg/dL 0-100 [facility] Comment on above: LDL ATP III CLASSIFI CATION LDL less than 100 mg/dL Optimal LDL 100-129 mg/dL Near or above optimal LDL 130-159 mg/dL Borderline high LDL 160-189 mg/dL High LDL greater than 189 mg/dL Very high Cholesterol in VLDL Calc [Ma ss/Vol]Ordered By: Justa Westfall on 01-19-2022 Cholesterol in VLDL [Mass/Vol] 22 mg/dL [facility] Laboratory - Chemistry and C hemistry - challengeOrdered By: Justa Westfall on 01-19-2022 Magnesium [Mass/Vol] 1.4 mg/dL 1.6-2.6 [facility] Laboratory - CoagulationOrde red By: Justa Westfall on 01-19-2022 PT Coag (PPP) [Time] 11.7 s 9.0-12.9 [facility] Platelet poor plasma interna tional normalized ratio (INR) by coagulation assay (relatOrdered By: Justa Westfall on 01-19-2022 INR Coag (PPP) [Relative time] 1.0 {INR} [facility] Comment on above: INR Therapeutic Rang e [...] HDL [Mass/Vol] 46 mg/dL 35-85 [facility] Comment on above: HDL CHOL ATP-III CLA SSIFICATION Cardiovascular Risk HDL > or equal to 60 mg/dL LOW HDL < 40 mg/dL HIGH Serum or plasma total choles terol/high density lipoprotein (HDL) cholesterol mass ratOrdered By: Justa Westfall on 01-19-2022 Cholesterol.total/Chol esterol in HDL [Mass ratio] 3.9 {ratio} <5.0 [facility] Triglyceride [Mass/volume] i n Serum or PlasmaOrdered By: Justa Westfall on 01-19-2022 Triglyceride [Mass/Vol] 113 mg/dL 35-149 [facility] Comment on above: TRIG ATP III CLASSIF [...] method [Mass/Vol] 3577 pg/mL 0-15 [facility] Comment on above: Results called at 0943 on 01/19/22 BNPon 01-18-2022 Natriuretic peptide B (Bld) [Mass/Vol] 1222.0 pg/mL Normal <=1,800.0 [facility] Comment on above: Performed By: #### A 1C #### [facility] [address] [place] [address] Dr. Ellie Smith CBC AUTO DIFFon 01-18-2022 BASO # 0.1 103/ul Normal 0.0-0.1 [facility] Comment on above: Performed By: #### R [id number] #### [facility] [address] [address] [address] Ellie Smith Basophils/100 WBC (Bld) 0.5 % Normal 0.2-2.0 [facility] Comment on above: Performed By: #### R [id number] #### [facility] [address] [address] [address] Ellie Smith EO # 0.2 103/ul Normal 0.0-0.7 [facility] Comment on above: Performed By: #### R [id number] #### [facility] [address] [place] [address] Dr. Ellie Smith Eosinophils/100 WBC (Bld) 2.4 % Normal 0.9-7.0 [facility] Comment on above: Performed By: #### R [id number] #### [facility] [address] [place] [address] Dr. Ellie Smith Erythrocyte distribution width (RBC) [Ratio] 14.1 % Normal 11.0-15.0 [facility] Comment on above: Performed By: #### R [id number] #### [facility] [address] [place] [address] Dr. Ellie Smith Hematocrit (Bld) [Volume fraction] 42.2 % Normal 36.0-48.0 [facility] Comment on above: Performed By: #### R [id number] #### [facility] [address] [place] [address] Dr. Ellie Smith Hemoglobin (Bld) [Mass/Vol] 13.9 g/dL Normal 12.0-16.0 [facility] Comment on above: Performed By: #### R [id number] #### [facility] [address] [place] [address] Dr. Ellie Smith IG # 0.02 10e3/ul Normal 0.00-0.03 [facility] Comment on above: Performed By: #### R [id number] #### [facility] [address] [place] [address] Dr. Ellie Smith IG % 0.2 % Normal 0.0-0.5 [facility] Comment on above: Performed By: #### R [id number] #### [facility] [address] [place] [address] Dr. Ellie Smith LYMPH # 2.1 103/ul Normal 1.2-3.8 [facility] Comment on above: Performed By: #### R [id number] #### [facility] [address] [place] [address] Dr. Ellie Smith Lymphocytes/100 WBC (Bld) 21.2 % Normal 20.5-60.0 [facility] Comment on above: Performed By: #### R [id number] #### [facility] [address] [place] [address] Dr. Ellie Smith MANUAL DIFF REQ NO Normal [facility] Comment on above: Performed By: #### R [id number] #### [facility] [address] [place] [address] Dr. Ellie Smith MCH (RBC) [Entitic mass] 31.2 pg Normal 26.7-34.0 [facility] Comment on above: Performed By: #### R [id number] #### [facility] [address] [place] [address] Dr. Ellie Smith MCHC (RBC) [Mass/Vol] 32.9 g/dL Normal 29.9-35.2 [facility] Comment on above: Performed By: #### R [id number] #### [facility] [address] [place] [address] Dr. Ellie Smith MCV (RBC) [Entitic vol] 94.6 fL Normal 81.0-99.0 [facility] Comment on above: Performed By: #### R [id number] #### [facility] [address] [place] [address] Dr. Ellie Smith MONO # 0.5 103/ul Normal 0.3-0.8 [facility] Comment on above: Performed By: #### R [id number] #### [facility] [address] [place] [address] Dr. Ellie Smith Monocytes/100 WBC (Bld) 4.7 % Normal 1.7-12.0 [facility] Comment on above: Performed By: #### R [id number] #### [facility] [address] [place] [address] Dr. Ellie Smith NEUT # 7.1 103/ul Critically high 1.4-6.5 [facility] Comment on above: Performed By: #### R [id number] #### [facility] [address] [place] [address] Dr. Ellie Smith Neutrophils/100 WBC (Bld) 71.0 % Normal 43.0-75.0 [facility] Comment on above: Performed By: #### R [id number] #### [facility] [address] [place] [address] Dr. Ellie Smith Platelet mean volume (Bld) [Entitic vol] 9.2 fL Critically low 9.5-13.5 [facility] Comment on above: Performed By: #### R [id number] #### [facility] [address] [place] [address] Dr. Ellie Smith PLT 257 103/ul Normal 150-450 [facility] Comment on above: Performed By: #### R [id number] #### [facility] [address] [place] [address] Dr. Ellie Smith RBC 4.46 106/ul Normal 4.20-5.40 [facility] Comment on above: Performed By: #### R [id number] #### [facility] [address] [place] [address] Dr. Ellie Smith WBC 10.0 103/ul Normal 4.0-11.0 [facility] Comment on above: Performed By: #### R [id number] #### [facility] [address] [place] [address] Dr. Ellie Smith Covid-19 PCR ([facility]on SARS-CoV-2 (COVID-19) RNA MEI+probe Ql (Unsp spec) Not detected Normal NOT DETECTED [facility] Comment on above: Result Comment: [...] for this test is supported by the [employer] of [employer] and Human Service's declaration that [...] used). Performed By: #### C VDTBH #### [facility] [address] [place] [address] Dr. Ellie Smith LIPASEon 01-18-2022 Lipase [Catalytic activity/Vol] 62.0 U/L Critically low 73.0-393.0 [facility] Comment on above: Performed By: #### A 1C #### [facility] [address] [place] [address] Dr. Ellie Smith MAGNESIUMon 01-18-2022 Magnesium [Mass/Vol] 1.4 mg/dL Critically low 1.8-2.4 [facility] Comment on above: Performed By: #### M G #### [facility] [address] [place] [address] Dr. Ellie Smith PROF 14(COMP METB)on 022 Albumin [Mass/Vol] 3.8 g/dL Normal 3.4-5.0 [facility] Comment on above: Performed By: #### A 1C #### [facility] [address] [place] [address] Dr. Ellie Smith Albumin/Globulin [Mass ratio] 1.2 {ratio} Normal [facility] Comment on above: Performed By: #### A 1C #### [facility] [address] [place] [address] Dr. Ellie Smith ALP [Catalytic activity/Vol] 59 U/L Normal 46-116 [facility] Comment on above: Performed By: #### A 1C #### [facility] [address] [place] [address] Dr. Ellie Smith ALT [Catalytic activity/Vol] 18 U/L Normal 14-59 [facility] Comment on above: Performed By: #### A 1C #### [facility] [address] [place] [address] Dr. Ellie Smith Anion gap [Moles/Vol] 11.1 mmol/L Normal Th e [facility] Comment on above: Performed By: #### A 1C #### [facility] [address] [address] [address] Ellie Smith AST [Catalytic activity/Vol] 14 U/L Critically low 15-37 [facility] Comment on above: Performed By: #### A 1C #### [facility] [address] [address] [address] Ellie Smith Bilirubin [Mass/Vol] 0.3 mg/dL Normal 0.2-1.0 [facility] Comment on above: Performed By: #### A 1C #### [facility] [address] [address] [address] Ellie Smith Calcium [Mass/Vol] 9.1 mg/dL Normal 8.5-10.1 [facility] Comment on above: Performed By: #### A 1C #### [facility] [address] [address] [address] Ellie Smith Chloride [Moles/Vol] 104 mmol/L Normal 98-107 [facility] Comment on above: Performed By: #### A 1C #### [facility] [address] [address] [address] Ellie Smith CO2 [Moles/Vol] 26.9 mmol/L Normal 21.0-32.0 [facility] Comment on above: Performed By: #### A 1C #### [facility] [address] [address] [address] Ellie Smith Creatinine [Mass/Vol] 0.84 mg/dL Normal 0.55-1.02 [facility] Comment on above: Performed By: #### A 1C #### [facility] [address] [address] [address] Ellie Smith EGFR-AF MOLDOVAN >60 Normal >=60 [facility] Comment on above: Performed By: #### A 1C #### [facility] [address] [address] [address] Ellie Smith EGFR-NON AF MOLDOVAN >60 Normal >=60 [facility] Comment on above: Performed By: #### A 1C #### [facility] [address] [place] [address] Dr. Ellie Smith Globulin (S) [Mass/Vol] 3.1 g/dL Normal [facility] Comment on above: Performed By: #### A 1C #### [facility] [address] [place] [address] Dr. Ellie Smith Glucose [Mass/Vol] 100 mg/dL Normal 74-106 [facility] Comment on above: Performed By: #### A 1C #### [facility] [address] [place] [address] Dr. Ellie Smith Potassium [Moles/Vol] 4.0 mmol/L Normal 3.5-5.1 [facility] Comment on above: Performed By: #### A 1C #### [facility] [address] [place] [address] Dr. Ellie Smith Protein [Mass/Vol] 6.9 g/dL Normal 6.4-8.2 [facility] Comment on above: Performed By: #### A 1C #### [facility] [address] [place] [address] Dr. Ellie Smith Sodium [Moles/Vol] 138 mmol/L Normal 136-145 [facility] Comment on above: Performed By: #### A 1C #### [facility] [address] [place] [address] Dr. Ellie Smith Urea nitrogen [Mass/Vol] 14.0 mg/dL Normal 7.0-18.0 [facility] Comment on above: Performed By: #### A 1C #### [facility] [address] [place] [address] Dr. Ellie Smith Urea nitrogen/Creatinine [Mass ratio] 16.7 mg/mg Normal [facility] Comment on above: Performed By: #### A 1C #### [facility] [address] [place] [address] Dr. Ellie Smith PROTIMEon 01-18-2022 INR Coag (PPP) [Relative time] 0.95 {INR} Normal [facility] Comment on above: Performed By: #### R [id number] #### [facility] [address] [place] [address] Dr. Ellie Smith INR GUIDELINES SEE BELOW Normal [facility] Comment on above: Result Comment: HIMANSHU RED INR: 2.0 - 3.0 CONDITIONS NOT LISTED BELOW 2.5 - 3.5 FOR PROSTHETIC HEART VALVE REPLACEMENT 2.5 - 3.5 RECURRENT THROMBOSIS Performed By: #### R EVRT3 #### [facility] [address] [address] [address] Ellie mSith PT Coag (PPP) [Time] 10.3 s Normal 9.0-11.6 [facility] Comment on above: Performed By: #### R [id number] #### [facility] [address] [place] [address] Dr. Ellie Smith PTTon 01-18-2022 aPTT Coag (Bld) [Time] 27.1 s Normal 22.3-36.2 Th [facility] Comment on above: Performed By: #### R EVRT3 #### [facility] [address] [place] [address] Dr. Ellie Smith TROPONIN, HIGH SENSITIVITYon 01-18-2022 HSTROP 512.5 pg/mL Critically high 4.0-51.3 [facility] Comment on above: Result Comment: CUT- OFF POINTS HAVE BEEN ESTABLISHED BASED ON THE FOURTH UNIVERSAL DEFINITIONS OF MYOCARDIAL INFARCTION. THE UPPER REFERENCE LIMIT (URL) OF TROPONIN, DEFINED THE 99TH PERCENTILE OF cTnI DISTRIBUTION IN A REFERENCE POPULATION, HAS BEEN CONFIRMED THE DECISION THRESHOLD FOR MA DIAGNOSIS. repeated Performed By: #### A 1C #### [facility] [address] [place] [address] Dr. Ellie Smith XR CHEST 1 Von [...] by: NICOLE SANDERS Date: 2022-01-18 17:38 Normal [facility] Vital Signs Date Time Vital Sign Value Performing Clinician Facility 11-11-2024 10:56-0400 Body height 152.4 cm Karli Dougherty MD Work Phone: [facility] [place] 11-11-2024 10:56-0400 Body mass index (BMI) [Ratio] 28.47 kg/m2 Karli Dougherty MD Work Phone: [facility] [place] 11-11-2024 10:56-0400 Body weight 66.13 kg Karli Dougherty MD Work Phone: [facility] [place] 11-11-2024 10:56-0400 Diastolic blood pressure 82 mm[Hg] Karli Dougherty MD Work Phone: [facility] [place] 11-11-2024 10:56-0400 Heart rate 64 /min Karli Dougherty MD Work Phone: [facility] [place] 11-11-2024 10:56-0400 Systolic blood pressure 136 mm[Hg] Karli Dougherty MD Work Phone: [facility] [place] 09-04-2024 14:37-0400 Body height 157.5 cm Priyanka Puentes MD Work Phone: [facility] 09-04-2024 14:37-0400 Body mass index (BMI) [Ratio] 26.89 kg/m2 Priyanka Puentes MD Work Phone: [facility] 09-04-2024 14:37-0400 Body weight 66.68 kg Priyanka Puentes MD Work Phone: [facility] 09-04-2024 14:37-0400 Heart rate 76 /min Priyanka Puentes MD Work Phone: [facility] 09-04-2024 14:37-0400 SaO2% (BldA) [Mass fraction] 94 % Priyanka Puentes MD Work Phone: [facility] 08-01-2024 10:16-0500 Body height 157.5 cm Priyanka Puentes MD Work Phone: [facility] 08-01-2024 10:16-0500 Body mass index (BMI) [Ratio] 27.07 kg/m2 Priyanka Puentes MD Work Phone: [facility] 08-01-2024 10:16-0500 Body weight 67.13 kg Priyanka Puentes MD Work Phone: [facility] 05-14-2024 13:40-0500 Body height 157.5 cm Priyanka Puentes MD Work Phone: [facility] 05-14-2024 13:40-0500 Body mass index (BMI) [Ratio] 27.07 kg/m2 Priyanka Puentes MD Work Phone: [facility] 05-14-2024 13:40-0500 Body weight 67.13 kg Priyanka Puentes MD Work Phone: [facility] 05-08-2024 13:40-0500 Body height 153.7 cm Karli Dougherty MD Work Phone: [facility] [place] 05-08-2024 13:40-0500 Body mass index (BMI) [Ratio] 29.77 kg/m2 Karli Dougherty MD Work Phone: [facility] [place] 05-08-2024 13:40-0500 Body weight 70.31 kg Karli Dougherty MD Work Phone: [facility] [place] 05-08-2024 13:40-0500 Diastolic blood pressure 64 mm[Hg] Karli Dougherty MD Work Phone: [facility] [place] 05-08-2024 13:40-0500 Heart rate 64 /min Karli Dougherty MD Work Phone: [facility] [place] 05-08-2024 13:40-0500 Systolic blood pressure 132 mm[Hg] Karli Dougherty MD Work Phone: [facility] [place] 08-31-2023 13:23-0400 Diastolic blood pressure 70 mm[Hg] Karli Dougherty MD Work Phone: [facility] [place] 08-31-2023 13:23-0400 Systolic blood pressure 136 mm[Hg] Karli Dougherty MD Work Phone: [facility] [place] 08-31-2023 12:56-0400 Body height 157.5 cm Karli Dougherty MD Work Phone: [facility] [place] 08-31-2023 12:56-0400 Body mass index (BMI) [Ratio] 27.62 kg/m2 Karli Dougherty MD Work Phone: [facility] [place] 08-31-2023 12:56-0400 Body weight 68.49 kg Karli Dougherty MD Work Phone: [facility] [place] 08-31-2023 12:56-0400 Heart rate 72 /min Karli Dougherty MD Work Phone: [facility] [place] 03-14-2023 12:00-0400 Body temperature 98.1 [degF] MD Priyanka Puentes Work Phone: [facility] 03-14-2023 12:00-0400 Diastolic blood pressure 72 mm[Hg] MD Priyanka Puentes Work Phone: [facility] 03-14-2023 12:00-0400 Heart rate 70 /min MD Priyanka Puentes Work Phone: [facility] 03-14-2023 12:00-0400 Respiratory rate 12 /min MD Priyanka Puentes Work Phone: [facility] 03-14-2023 12:00-0400 SaO2% (BldA) [Mass fraction] 95 % MD Priyanka Puentes Work Phone: [facility] 03-14-2023 12:00-0400 Systolic blood pressure 155 mm[Hg] MD Priyanka Puentes Work Phone: [facility] 03-14-2023 06:00-0400 Body weight 66.3 kg MD Priyanka Puentes Work Phone: [facility] 03-12-2023 20:20-0400 Body height 157.48 cm MD Priyanka Puentes Work Phone: [facility] 03-12-2023 17:59-0400 Diastolic blood pressure 91 mm[Hg] MD Priyanka Puentes Work Phone: [facility] 03-12-2023 17:59-0400 Systolic blood pressure 199 mm[Hg] MD Priyanka Puentes Work Phone: [facility] 03-12-2023 17:33-0400 Heart rate 110 /min MD Priyanka Puentes Work Phone: [facility] 03-12-2023 17:33-0400 Respiratory rate 18 /min MD Priyanka Puentes Work Phone: [facility] 03-12-2023 17:33-0400 SaO2% (BldA) [Mass fraction] 96 % MD Priyanka Puentes Work Phone: [facility] 03-12-2023 13:44-0400 Body height 157.48 cm MD Priyanka Puentes Work Phone: [facility] 03-12-2023 13:44-0400 Body temperature 98.6 [degF] MD Priyanka Puentes Work Phone: [facility] 03-12-2023 13:44-0400 Body weight 63.5 kg MD Priyanka Puentes Work Phone: [facility] 03-07-2023 08:00-0400 Body temperature 97.9 [degF] MD Priyanka Puentes Work Phone: [facility] 03-07-2023 08:00-0400 Diastolic blood pressure 77 mm[Hg] MD Priyanka Puentes Work Phone: [facility] 03-07-2023 08:00-0400 Heart rate 78 /min MD Priyanka Puentes Work Phone: [facility] 03-07-2023 08:00-0400 Respiratory rate 16 /min MD Priyanka Puentes Work Phone: [facility] 03-07-2023 08:00-0400 SaO2% (BldA) [Mass fraction] 98 % MD Priyanka Puentes Work Phone: [facility] 03-07-2023 08:00-0400 Systolic blood pressure 167 mm[Hg] MD Priyanka Puentes Work Phone: [facility] 03-07-2023 06:10-0400 Body weight 64.7 kg MD Priyanka Puentes Work Phone: [facility] 03-06-2023 13:53-0400 Body height 157.48 cm MD Priyanka Puentes Work Phone: [facility] 03-05-2023 21:31-0400 Diastolic blood pressure 65 mm[Hg] MD Priyanka Puentes Work Phone: [facility] 03-05-2023 21:31-0400 Heart rate 85 /min MD Priyanka Puentes Work Phone: [facility] 03-05-2023 21:31-0400 SaO2% (BldA) [Mass fraction] 96 % MD Priyanka Puentes Work Phone: [facility] 03-05-2023 21:31-0400 Systolic blood pressure 145 mm[Hg] MD Priyanka Puentes Work Phone: [facility] 03-05-2023 18:47-0400 Respiratory rate 18 /min MD Priyanka Puentes Work Phone: [facility] 03-05-2023 18:00-0400 Body height 157.48 cm MD Priyanka Puentes Work Phone: [facility] 03-05-2023 18:00-0400 Body temperature 97.1 [degF] MD Priyanka Puentes Work Phone: [facility] 03-05-2023 18:00-0400 Body weight 65.7 kg MD Priyanka Puentes Work Phone: [facility] 02-16-2023 13:38-0400 Body height 157.48 cm Priyanka Puentes Work Phone: [facility] 250 DO Work Phone: 02-16-2023 13:38-0400 Body mass index (BMI) [Ratio] 26.52 kg/m2 Priyanka Puentes Work Phone: [facility] 250 DO Work Phone: 02-16-2023 13:38-0400 Body surface area Derived from formula 1.67 m2 Priyanka Puentes Work Phone: [facility] 250 DO Work Phone: 02-16-2023 13:38-0400 Body weight 65.77 kg Priyanka Puentes Work Phone: [facility] 250 DO Work Phone: 02-16-2023 13:38-0400 Diastolic blood pressure 62 mm[Hg] Priyanka Puentes Work Phone: [facility] 250 DO Work Phone: 02-16-2023 13:38-0400 Heart rate 76 /min Priyanka Puentes Work Phone: [facility] 250 DO Work Phone: 02-16-2023 13:38-0400 Systolic blood pressure 128 mm[Hg] Priyanka Puentes Work Phone: [facility] 250 DO Work Phone: 08-24-2022 14:35-0400 Body height 157.48 cm Edzeeshan Schrader Hemeyer Work Phone: [facility] 250 DO Work Phone: 08-24-2022 14:35-0400 Body mass index (BMI) [Ratio] 27.98 kg/m2 Edward J Hemeyer Work Phone: [facility] 250 DO Work Phone: 08-24-2022 14:35-0400 Body surface area Derived from formula 1.71 m2 Edzeeshan Macrina Hemeyer Work Phone: [facility] 250 DO Work Phone: 08-24-2022 14:35-0400 Body weight 69.4 kg Edzeeshan Malcolmyer Work Phone: [facility] 250 DO Work Phone: 08-24-2022 14:35-0400 Diastolic blood pressure 54 mm[Hg] Edward Macrina Hemeyer Work Phone: [facility] 250 DO Work Phone: 08-24-2022 14:35-0400 Heart rate 82 /min Edward Macrina Hemeyer Work Phone: [facility] 250 DO Work Phone: 08-24-2022 14:35-0400 Systolic blood pressure 132 mm[Hg] Edward J Hemeyer Work Phone: [facility] 250 DO Work Phone: 03-17-2022 15:30-0400 Body height 157.48 cm Edward J Hemeyer Work Phone: [facility] 600 DO Work Phone: 03-17-2022 15:30-0400 Body mass index (BMI) [Ratio] 30.18 kg/m2 Edward J Hemeyer Work Phone: [facility] 600 DO Work Phone: 03-17-2022 15:30-0400 Body surface area Derived from formula 1.76 m2 Priyanka Malcolmyer Work Phone: [facility] 600 DO Work Phone: 03-17-2022 15:30-0400 Body weight 74.84 kg Priyanka Puentes Work Phone: [facility] 600 DO Work Phone: 03-17-2022 15:30-0400 Diastolic blood pressure 58 mm[Hg] Priyanka Puentes Work Phone: [facility] 600 DO Work Phone: 03-17-2022 15:30-0400 Heart rate 80 /min Priyanka Puentes Work Phone: [facility] 600 DO Work Phone: 03-17-2022 15:30-0400 Systolic blood pressure 130 mm[Hg] Priyanka Puentes Work Phone: [facility] 600 DO Work Phone: 02-15-2022 14:39-0400 Body height 157.48 cm Priyanka Puentes Work Phone: [facility] 250 DO Work Phone: 02-15-2022 14:39-0400 Body mass index (BMI) [Ratio] 30.18 kg/m2 Priyanka Malcolmyer Work Phone: [facility] 250 DO Work Phone: 02-15-2022 14:39-0400 Body surface area Derived from formula 1.76 m2 Larryzeeshan Puentes Work Phone: [facility] 250 DO Work Phone: 02-15-2022 14:39-0400 Body weight 74.84 kg Larryzeeshan Puentes Work Phone: [facility] 250 DO Work Phone: 02-15-2022 14:39-0400 Diastolic blood pressure 60 mm[Hg] Priyanka Schrader Hemeyer Work Phone: [facility] 250 DO Work Phone: 02-15-2022 14:39-0400 Heart rate 78 /min Priyanka Schrader Yunyer Work Phone: [facility] 250 DO Work Phone: 02-15-2022 14:39-0400 Systolic blood pressure 140 mm[Hg] Priyanka Schrader Hemeyer Work Phone: [facility] 250 DO Work Phone: 02-15-2022 14:39-0400 10 1 Priyanka Malcolmyer Work Phone: [facility] 250 DO Work Phone: Comment on above: [id number] 02-03-2022 17:15-0400 Diastolic blood pressure 84 mm[Hg] MD Priyanka Puentes Work Phone: [facility] 02-03-2022 17:15-0400 Heart rate 78 /min MD Priyanka Puentes Work Phone: [facility] 02-03-2022 17:15-0400 Respiratory rate 20 /min MD Priyanka Puentes Work Phone: [facility] 02-03-2022 17:15-0400 SaO2% (BldA) [Mass fraction] 94 % MD Priyanka Puentes Work Phone: [facility] 02-03-2022 17:15-0400 Systolic blood pressure 185 mm[Hg] MD Priyanka Puentes Work Phone: [facility] 02-03-2022 16:00-0400 Body temperature 97.8 [degF] MD Priyanka Puentes Work Phone: [facility] 02-03-2022 10:25-0400 Body height 157.48 cm MD Priyanka Puentes Work Phone: [facility] 02-03-2022 10:25-0400 Body weight 77.5 kg MD Priyanka Puentes Work Phone: [facility] 01-21-2022 12:00-0400 Body temperature 97.6 [degF] MD Priyanka Puentes Work Phone: [facility] 01-21-2022 12:00-0400 Diastolic blood pressure 81 mm[Hg] MD Priyanka Puentes Work Phone: [facility] 01-21-2022 12:00-0400 Heart rate 73 /min MD Priyanka Puentes Work Phone: [facility] 01-21-2022 12:00-0400 Respiratory rate 20 /min MD Priyanka Puentes Work Phone: [facility] 01-21-2022 12:00-0400 SaO2% (BldA) [Mass fraction] 94 % MD Priyanka Puentes Work Phone: [facility] 01-21-2022 12:00-0400 Systolic blood pressure 150 mm[Hg] MD Priyanka Puentes Work Phone: [facility] 01-21-2022 05:59-0400 Body weight 79.6 kg MD Priyanka Puentes Work Phone: [facility] 01-19-2022 09:50-0400 Body height 157.48 cm MD Priyanka Puentes Work Phone: [facility] 01-18-2022 00:00-0400 55 1 Priyanka Puentes Work Phone: [facility] 250 DO Work Phone: Comment on above: [id number] 01-01-2022 11:00-0400 Body height 157.48 cm Eva Panda Other [employer] Other 01-01-2022 11:00-0400 Body mass index (BMI) [Ratio] 31.64 kg/m2 Eva Patelmond Other [employer] Other 01-01-2022 11:00-0400 Body temperature 97.1 [degF] Eva Patelmond Other [employer] Other 01-01-2022 11:00-0400 Body weight 78.47 kg Eva Panda Other [employer] Other 01-01-2022 11:00-0400 Diastolic blood pressure 101 mm[Hg] Eva Patelmond Other [employer] Other 01-01-2022 11:00-0400 Respiratory rate 18 /min Eva Panda Other [employer] Other 01-01-2022 11:00-0400 SaO2% (BldA) [Mass fraction] 96 % Eva Patelmond Other [employer] Other 01-01-2022 11:00-0400 Systolic blood pressure 156 mm[Hg] Eva Patelmond Other [employer] Other Encounters Encounter Date Encounter Type Care Provider Facility Start: 01-13-2025 End: 01-13-2025 Clinisync Result Encounter Priyanka Puentes MD Work Phone: [facility] External Department Unsolicited Start: 01-13-2025 End: 01-13-2025 Clinisync Result Encounter Priyanka Puentes MD Work Phone: [facility] External Department Unsolicited Start: 01-10-2025 End: 01-10-2025 Clinisync Result Encounter Priyanka Puentes MD Work Phone: [facility] External Department Unsolicited Start: 01-10-2025 End: 01-10-2025 Clinisync Result Encounter Priyanka Puentes MD Work Phone: [facility] External Department Unsolicited Start: 11-11-2024 End: 11-11-2024 Office outpatient visit 25 minutes Karli Dougherty MD Work Phone: [facility] Comment on above: Coronary artery dise ase involving [place] coronary artery of [place] heart without angina pectoris (Primary Dx); Status post percutaneous transluminal coronary angioplasty; PAD (peripheral artery disease); Mixed hyperlipidemia; Essential (primary) hypertension; Dyspnea on exertion; BMI 28.0-28.9,adult; Former smoker Start: 11-11-2024 End: 11-11-2024 ambulatory [facility] Ambulatory Start: 09-04-2024 End: 09-04-2024 Patient encounter procedure Priyanka Puentes MD Work Phone: [facility] Comment on above: Encounter for Medica re annual wellness exam (Primary Dx); Advance directive discussed with patient; Encounter for screening for other disorder; Screening for alcohol problem; Chronic kidney disease, stage 3a (HCC) (CMS/HCC); Type 2 diabetes mellitus with diabetic autonomic neuropathy, without long-term current use of insulin (CMS/HCC); Simple chronic bronchitis (CMS/HCC); Postinflammatory pulmonary fibrosis (CMS/HCC); Lung granuloma (CMS/HCC); Centrilobular emphysema (CMS/HCC); Pulmonary hypertension (CMS/HCC); Peripheral vascular disease (CMS/HCC); Infrarenal abdominal aortic aneurysm, without rupture (CMS/HCC); Benign essential hypertension (CMS/HCC); Stage 3a chronic kidney disease (HCC) (CMS/HCC); Hypertensive nephropathy (CMS/HCC); Acquired hypothyroidism (CMS/HCC); Coronary artery disease involving [place] coronary artery of [place] heart without angina pectoris (CMS/HCC) Start: 09-04-2024 End: 09-04-2024 ambulatory PRIYANKA PUENTES Not Available Start: 09-04-2024 End: 09-04-2024 Bamboo flowscosme Puentes MD Work Phone: [facility] Start: 09-04-2024 End: 09-04-2024 Bamboo flowscosme Puentes MD Work Phone: [facility] Start: 08-19-2024 End: 08-19-2024 ambulatory Delmy Conde MD Facility:[facility] Start: 08-05-2024 End: 08-05-2024 ambulatory Delmy Conde MD Facility:[facility] Start: 08-04-2024 End: 08-04-2024 Refill Priyanka Puentes MD Work Phone: [facility] Comment on above: Impaired glucose foreign erance Start: 08-01-2024 End: 08-01-2024 Bamboo flowscosme Puentes MD Work Phone: [facility] Start: 08-01-2024 End: 08-01-2024 Bamboo flowscosme Puentes MD Work Phone: [facility] Start: 08-01-2024 End: 08-01-2024 Office outpatient visit 25 minutes Priyanka Puentes MD Work Phone: [facility] Comment on above: Acquired hypothyroid ism (CMS/HCC) (Primary Dx); Chronic fatigue; Benign essential hypertension (CMS/HCC); Chronic eczema; Polypharmacy; Obesity (BMI 30.0-34.9) Start: 08-01-2024 End: 08-01-2024 ambulatory PRIYANKA PUENTES Not Available Start: 07-22-2024 End: 07-22-2024 Refill Priyanka Puentes MD Work Phone: [facility] Comment on above: Benign essential hyp ertension (CMS/HCC); Hypothyroidism, unspecified type (CMS/HCC) Start: 07-22-2024 End: 07-22-2024 ambulatory Delmy Conde MD Facility:[facility] Start: 07-16-2024 End: 07-16-2024 Clinisync [...] 15 minutes Karli Dougherty MD Work Phone: [facility] Comment on above: Status post percutan eous transluminal coronary angioplasty (Primary Dx); Coronary artery disease involving [place] coronary artery of [place] heart without angina pectoris; Mixed hyperlipidemia; Hypertension, benign; Body mass index (BMI) 29.0-29.9, adult; Dyspnea on exertion; Former smoker Start: 05-08-2024 End: 05-08-2024 ambulatory [facility] Ambulatory Start: 01-22-2024 End: 01-22-2024 ambulatory PRIYANKA PUENTES Not Available Start: 12-13-2023 End: 12-13-2023 ambulatory PRIYANKA PUENTES Not Available Start: 08-31-2023 End: 08-31-2023 Office outpatient visit 15 minutes Karli Dougherty MD Work Phone: [facility] Comment on above: Coronary artery dise ase involving [place] coronary artery of [place] heart without angina pectoris (Primary Dx); Status post percutaneous transluminal coronary angioplasty; Mixed hyperlipidemia; Hypertension, benign; Dyspnea on exertion; BMI 27.0-27.9,adult; Former smoker Start: 07-21-2023 Clinisync Result Encounter Priyanka Puentes MD Work Phone: [facility] External Department Unsolicited Start: 07-21-2023 Clinisync Result Encounter Priyanka Puentes MD Work Phone: [facility] External Department Unsolicited Start: 03-12-2023 End: 03-14-2023 ambulatory Sima Hdz Facility:[facility] Start: 03-12-2023 End: 03-14-2023 Evaluation and management of inpatient MD Priyanka Puentes Work Phone: [facility] Work Phone: Start: 03-12-2023 End: 03-14-2023 observation encounter MD Priyanka Puentes Work Phone: [facility] Work Phone: Start: 03-06-[address] Priyanka Puentes Facility:[id number] Start: 03-05-2023 End: 03-07-2023 ambulatory Priyanka Puentes Facility:[facility] Start: 03-05-2023 End: 03-07-2023 Evaluation and management of inpatient MD Priyanka Puentes Work Phone: [facility] Work Phone: Start: 03-05-2023 End: 03-07-2023 observation encounter MD Priyanka Puentes Work Phone: [facility] Work Phone: Start: 03-02-2023 Telephone encounter Priyanka bhatt Work Phone: [facility] 600 DO Work Phone: Start: 02-16-2023 Office outpatient vi sit 15 minutes Priyanka Puentes Work Phone: [facility] 250 DO Work Phone: Start: 02-16-[address] Priyanka Puentes Facility: Start: 10-05-2022 End: 10-06-[address] PRIYANKA PUENTES . Facility:[facility] Start: 08-24-2022 Office outpatient vi sit 25 minutes Priyanka Puentes Work Phone: [facility] 250 DO Work Phone: Start: 08-24-[address] Priyanka Puentes Facility: Start: 08-15-2022 End: 08-16-[address] ANUM WOODY Facility:[facility] Start: 06-14-2022 End: 07-19-[address] PRIYANKA PUENTES . Facility:[facility] Start: 04-12-2022 End: 04-13-[address] PRIYANKA PUENTES . Facility:[facility] Start: 03-29-2022 End: 03-30-[address] PRIYANKA PUENTES . Facility:[facility] Start: 03-25-2022 Telephone encounter Priyanka bhatt Work Phone: [facility] 250 DO Work Phone: Start: 03-17-2022 Office outpatient vi sit 25 minutes Priyanka Puentes Work Phone: [facility] 600 DO Work Phone: Start: 03-17-2022 ambulatory Ms. Khanh Barrios Lester Hung Facility: Start: 02-24-2022 End: 06-14-[address] PRIYANKA PUENTES . Facility:[facility] Start: 02-15-2022 Office outpatient vi sit 25 minutes Priyanka Puentes Work Phone: [facility] 250 DO Work Phone: Start: 02-07-2022 Telephone encounter Priyanka bhatt Work Phone: [facility] 250 DO Work Phone: Start: 02-03-2022 End: 02-03-2022 Admission to same day surgery center MD Priyanka Puentes Work Phone: [facility]-Inspector Cold Working Start: 02-01-2022 End: 02-01-2022 Patient encounter procedure MD Priyanka Puentes Work Phone: [id number] Testing Start: 01-27-2022 End: 01-28-[address] RAQUEL PERSAUD Facility:[facility] Start: 01-18-2022 End: 01-21-2022 Evaluation and management of inpatient MD Priyanka Puentes Work Phone: [facility] Start: 01-18-2022 End: 01-18-2022 ambulatory BRITTNI LOTT . Facility:[facility] Start: 01-01-2022 End: 01-01-2022 ambulatory Eva Panda Other [facility] Other Start: 01-01-2022 Office outpatient ne w 20 minutes Eva Panda [facility] Procedures Date Procedure Procedure Detail Performing Clinician Start: 01-13-2025 TB MICROALB CREAT R ATIO RANDOM Priyanka Puentes MD Work Phone: Start: 01-10-2025 MLR HEMOGLOBIN A1C [place] Puentes MD Work Phone: Start: 07-16-2024 ALL T3 FREE Priyanka bhatt MD Work Phone: Start: 07-16-2024 ALL THYROID STIM HORMONE Priyanka Puentes MD Work Phone: Start: 07-11-2024 Ct lumbar spine w/o contrast material Generic External Data Provider Start: 05-17-2024 ALL LIPID PROFILE (FASTING) Generic External Data Provider Start: 05-17-2024 [facility] CMP (CMP) (FOR R [facility] USE) Generic External Data Provider Start: [...] Puentes Work Phone: Biopsy of skin Priyanka Malcolm bud Work Phone: Excision of cyst Priyanka Salazar gilbert Work Phone: Hysterectomy Priyanka Lima r [...] Treatment Date Care Activity Detail Author Start: 08-20-2025 End: 08-20-2025 Patient encounter procedure 08/20/2025 1:00 PM EDT Office Visit [address] [id number] Karli Dougherty MD [address] [place] [address] 2, [address] [address] [facility] Start: 03-28-2025 Glaucoma screening Diabetes: Retinopathy Screening [facility] Start: 02-10-2025 Influenza vaccination Influenza Vaccine (#1) [facility] Start: 12-11-2024 End: 12-11-2024 Patient encounter procedure 12/11/2024 1:30 PM EDT Office Visit [address] [phone] Karli Dougherty MD [address] [place] [address] 2, [address] [place], [place] [id number] 149- [facility] Start: 10-10-2024 COVID-19 Vaccine ( season) COVID-19 Vaccine () [facility] Start: 09-04-2024 End: 09-04-2024 Patient encounter procedure 09/04/2024 2:30 PM EDT Office Visit [facility] [address] [place] [address] Priyanka Puentes MD [address] [place] [address] (Fax) Encounter for Medicare annual wellness exam; Advance directive discussed with patient; Encounter for screening for other disorder; Screening for alcohol problem; Chronic kidney disease, stage 3a (HCC) (CMS/HCC); Type 2 diabetes mellitus with diabetic autonomic (poly)neuropathy (CMS/HCC) [facility] Comment on above: Encounter for Medicare annual wellness e xam; Advance directive discussed with patient; Encounter for screening for other disorder; Screening for alcohol problem; Chronic kidney disease, stage 3a (HCC) (CMS/HCC); Type 2 diabetes mellitus with diabetic autonomic (poly)neuropathy (CMS/HCC) Start: 08-30-2024 Medicare Annual Wellness Visit Medicare Annual Wellness Visit (AWV) [facility] Start: 08-01-2024 End: 08-01-2024 Patient encounter procedure 08/01/2024 10:30 AM EST Office Visit [facility] [address] [place] [address] Priyanka Puentes MD [address] [place] [address] (Fax) Acquired hypothyroidism (CMS/HCC); Chronic fatigue; Polypharmacy; Obesity [...] [address] [place] [address] Priyanka Puentes MD [address] [place] [address] Arrived [facility] Comment on above: Arrived Start: 05-08-2024 End: 05-08-2025 Alanine aminotransferase [Enzymatic activity/volume] in Serum or Plasma by With P-5'-P Alanine Aminotransferase Lab Routine Mixed hyperlipidemia Expected: 05/08/2024 (Approximate), Expires: 05/08/2025 [facility] Service Area Work Phone: Comment on above: Expected: 05/08/2024 (Approximate), Expi res: 05/08/2025 Start: 05-08-2024 End: 05-08-2025 Aspartate aminotransferase [Enzymatic activity/volume] in Serum or Plasma by With P-5'-P Aspartate Aminotransferase Lab Routine Mixed hyperlipidemia Expected: 05/08/2024 (Approximate), Expires: 05/08/2025 [facility] Work Phone: Comment on above: Expected: 05/08/2024 (Approximate), Expi res: 05/08/2025 Start: 05-08-2024 End: 05-08-2025 Comprehensive metabolic 2000 panel - Serum or Plasma Comprehensive Metabolic Panel Lab Routine Hypertension, benign Expected: 05/08/2024 (Approximate), Expires: 05/08/2025 [facility] Work Phone: Comment on above: Expected: 05/08/2024 (Approximate), Expi res: 05/08/2025 Start: 05-08-2024 End: 05-08-2025 Lipid 1996 panel - Serum or Plasma Lipid Panel Lab Routine Mixed hyperlipidemia Expected: 05/08/2024 (Approximate), Expires: 05/08/2025 [facility] Work Phone: Comment on above: Expected: 05/08/2024 (Approximate), Expi res: 05/08/2025 Start: 05-08-2024 End: 05-08-2024 Patient encounter procedure 05/08/2024 1:40 PM EST Office Visit [facility] [address] [address] [place] [id number] Karli Dougherty MD [address] [facility], [address] [place] [address] [facility] Start: 08-31-2023 FUV, Provider: Karli Dougherty, Status: Pen, Time: 1:00 PM FUV, Provider: Kalri Dougherty, Status: Pen, Time: 1:00 PM [facility] 250 DO Work Phone: Start: 08-08-2023 End: 08-08-2023 Patient encounter procedure 08/08/2023 10:00 AM EST Office Visit [facility] [address] [place] [address] Priyanka Puentes MD [address] [place] [address] [facility] Start: 03-14-2023 [facility] Start: 03-12-2023 Referral to Singing Teacher [facility] Start: 03-12-2023 Hospital admission [facility] Start: 03-12-2023 Physical therapy procedure [facility] Start: 03-12-2023 Referral to occupational therapist [facility] Start: 03-12-2023 [facility] Start: 03-07-2023 [facility] Start: 03-06-2023 Comprehensive metabolic 2000 panel - Serum or Plasma [facility] Start: 03-06-2023 Doppler ultrasonography of bilateral carotid arteries US carotid doppler BI [facility] Start: 03-06-2023 Lipid panel [facility] Start: 03-06-2023 [facility] Start: 03-05-2023 Hospital admission [facility] Start: 03-05-2023 Physical therapy procedure [facility] Start: 03-05-2023 Referral to occupational therapist [facility] Start: 03-05-2023 [facility] Start: 03-05-2023 [facility] Start: 02-16-2023 FUV, Provider: Karli Dougherty, Status: Pen, Time: 1:20 PM FUV, Provider: Karli Dougherty, Status: Pen, Time: 1:20 PM [facility] 250 DO Work Phone: Start: 01-27-2023 Urine screening for protein Diabetes: Urine Protein Screening [facility] Healthcare Start: 11-15-2022 Hemoglobin A1c measurement Diabetes: Hemoglobin A1C [facility] Start: 08-23-2022 Medicare Annual Wellness (AWV) Medicare Annual Wellness (AWV) [facility] Healthcare Start: 07-06-2022 FUV, Provider: Karli Dougherty, Status: Pen, Time: 2:20 PM FUV, Provider: Karli Dougherty, Status: Pen, Time: [facility]:[address] [facility] [facility] Work Phone: Start: 03-17-2022 FUV, Provider: Khanh Mercado, Status: Pen, Time: 3:30 PM FUV, Provider: Khanh Mercado, Status: Pen, Time: 3:30 PM [facility] DO Work Phone: Start: 02-03-[address] [facility] Work Phone: Start: 02-03-[address]22 Hospital admission [facility] Work Phone: Start: 02-03-2022 CL PTCA Ea Add LAD CL PTCA Ea Add LAD [facility] Start: 02-03-2022 CL Stent 1st Vessel LAD GAYATHRI CL Stent 1st Vessel LAD GAYATHRI [facility] Start: 02-03-2022 [facility] Start: 02-03-2022 End: 02-03-2022 Admission to same day surgery center Departed Surgical Day Care [facility]-Inspector Cold Working Start: 02-01-2022 End: 02-01-2022 Patient encounter procedure Departed Clinical [facility]-Pre-Surgical Testing Start: 01-21-[address] [facility] Work Phone: Start: 01-18-2022 Referral to assurance senior [facility] Work Phone: Start: 01-18-[address] Hospital [address] [facility] Work Phone: Start: 01-18-2022 Dilation of Coronary Artery, Two Arteries with Four or More Drug-eluting Intraluminal Devices, Percutaneous Approach Dilation of Coronary Artery, Two Arteries with Four or More Drug-eluting Intraluminal Devices, Percutaneous Approach [facility] Start: 01-18-2022 Fluoroscopy of Left Heart using Low Osmolar Contrast Fluoroscopy of Left Heart using Low Osmolar Contrast [facility] Start: 01-18-2022 Fluoroscopy of Multiple Coronary Arteries using Low Osmolar Contrast Fluoroscopy of Multiple Coronary Arteries using Low Osmolar Contrast [facility] Start: 01-18-2022 Measurement of Cardiac Sampling and Pressure, Left Heart, Percutaneous Approach Measurement of Cardiac Sampling and Pressure, Left Heart, Percutaneous Approach [facility] Start: 10-16-2018 Urine screening for protein Diabetes: Urine Protein Screening [facility] Start: 02-21-1992 Zoster Vaccines (1 of 2) Zoster Vaccines (1 of 2) [facility] Start: 02-21-1964 DTaP/Tdap/Td Vaccines (1 - Tdap) DTaP/Tdap/Td Vaccines (1 - Tdap) [facility] Start: 02-21-1960 Diabetes mellitus screening Diabetes Screening [facility] Start: 1940 Lipid panel Lipid Panel [facility] Start: 1940 Medicare Annual Wellness Visit Medicare Annual Wellness Visit (AWV) [facility] Start: 1942 Thyroid stimulating hormone measurement TSH Level [facility] Patient Education [facility] Work Phone: Patient referral [facility] Work Phone: Immunizations Immunization Date Immunization Notes Care Provider Fa cility 04-23-2024 ABRYSVO - Respirator y syncytial virus (RSV), vaccine, bivalent, protein subunit RSV prefusion F, diluent reconstituted, 0.5 mL, PF Priyanka Puentes MD Work Phone: [facility] 04-17-2024 influenza, high dose seasonal, preservative-free Priyanka Puentes MD Work Phone: [facility] 04-17-2024 influenza virus vacc ine, unspecified formulation Priyanka Puentes MD Work Phone: [facility] 05-09-2023 Influenza, High-dose Seasonal, Quadrivalent, Preservative Free Priyanka Puentes MD Work Phone: [facility] 05-17-2022 Fluzone High-Dose Quadrivalent 0.7 ML Intramuscular Suspension Prefilled Syringe Priyanka Puentes Work Phone: [facility] 250 DO Work Phone: 04-29-2022 Moderna Bivalent Saenz ster Vaccination Priyanka Puentes MD Work Phone: [facility] 04-29-2022 Pfizer COVID-19 Vac Bivalent 30 MCG/0.3ML Intramuscular Suspension Priyanka Puentes Work Phone: [facility] Work Phone: 04-19-2021 influenza, injectabl e, quadrivalent, preservative free Priyanka Puentes Work Phone: [facility] 03-17-2021 Jukely-BioNTTreedom COVI D-19 Vacc 30 MCG/0.3ML Intramuscular Suspension Priyanka Puentes Work Phone: [facility] 250 DO Work Phone: 03-16-2021 Pfizer Purple Cap SARS-CoV-2 Vaccination Priyanka Puentes MD Work Phone: [facility] 07-31-2020 COVID-19 Bob Ordonez (Pfizer) MD Priyanka Puentes Work Phone: [facility] 07-30-2020 Pfizer Purple Cap SARS-CoV-2 Vaccination Priyanka Puentes MD Work Phone: [facility] 07-08-2020 Pfizer-BioNTech COVI D-19 Vacc 30 MCG/0.3ML Intramuscular Suspension Priyanka Puentes Work Phone: [place] [address] DO Work Phone: 07-07-2020 Pfizer Purple Cap SARS-CoV-2 Vaccination Priyanka Puentes MD Work Phone: [facility] 07-03-2020 COVID-19 mRNA, Bob wilson (Pfizer) MD Priyanka Puentes Work Phone: [facility] 03-26-2020 Seasonal trivalent influenza vaccine, adjuvanted, preservative free Priyanka Puentes Work Phone: [place] [address] DO Work Phone: 03-25-2020 Seasonal trivalent influenza vaccine, adjuvanted, preservative free Priyanka Puentes MD Work Phone: [facility] 04-09-2019 influenza, injectabl e, quadrivalent, preservative free Priyanka Puentes MD Work Phone: [facility] 04-09-2019 Seasonal trivalent influenza vaccine, adjuvanted, preservative free Priyanka Puentes Work Phone: [place] [address] DO Work Phone: 04-03-2018 influenza, injectabl e, quadrivalent, preservative free Priyanka Puentes Work Phone: [place] [address] DO Work Phone: 04-02-2018 influenza, injectabl e, quadrivalent, preservative free Priyanka Puentes MD Work Phone: [facility] 04-02-2018 pneumococcal conjuga te vaccine, 13 valent Priyanka Puentes Work Phone: [place] [address] DO Work Phone: 03-20-2017 pneumococcal conjuga te vaccine, 13 valent Priyanka Malcolmyer Work Phone: [facility] 250 DO Work Phone: 03-13-2017 influenza, seasonal, injectable Edward J Hemeyer Work Phone: [facility] 250 DO Work Phone: 04-14-2016 influenza, injectabl e, quadrivalent, contains preservative Edzeeshan J Dhaval Work Phone: [facility] 250 DO Work Phone: 04-12-2016 influenza, injectabl e, quadrivalent, preservative free Priyanka Puentes MD Work Phone: [facility] 04-17-2015 influenza, injectabl e, quadrivalent, preservative free Priyanka Puentes MD Work Phone: [facility] 04-03-2015 influenza, seasonal, injectable Priyanka J Dhaval Work Phone: [facility] 250 DO Work Phone: 05-20-2009 pneumococcal polysaccharide vaccine, 23 valent Priyanka Puentes Work Phone: [facility] 250 DO Work Phone: Payers Date Payer Category Payer [facility] [employer] [id number] 2021 Unknown 2007 Medicare [id number] 1959 Medicare [id number] [id number] 1959 Medicare [id number] 2.16.840.1.438842.19 1942 Unknown [id number] 2.16.840.1.920810.3.579.2. 593 1942 Unknown [id number] 2.16.840.1.342341.3.579.2. 593 1942 Unknown [id number] 2.16.840.1.333960.3.579.2. 593 1942 Unknown [id number] 2.16.840.1.356567.3.579.2. 593 1942 Unknown [id number] 2.16.840.1.984402.3.579.2. 593 1942 Unknown [id number] 2.16.840.1.321774.3.579.2. 593 1942 Unknown [id number] 2.16.840.1.093989.3.579.2. 593 1942 Unknown [id number] 2.16.840.1.477290.3.579.2. 593 1942 Unknown [id number] 2.16.840.1.399146.3.579.2. 356 1942 Unknown [id number] 2.16.840.1.099033.3.579.2. 356 1942 Unknown [id number] 2.16.840.1.824524.3.579.2. 356 1942 Unknown [id number] 2.16.840.1.772856.3.579.2. 356 1942 Unknown [id number] 2.16.840.1.872745.3.579.2. 196 1942 Unknown [id number] 2.16.840.1.709007.3.579.2. 196 1942 Unknown [id number] 2.16.840.1.511838.3.579.2. 196 1942 Unknown [id number] 2.16.840.1.386612.3.579.2. 1259 1942 Unknown [id number] 2.16.840.1.282192.3.579.2. 1259 1942 Unknown [id number] 2.16.840.1.678706.3.579.2. 1259 1942 Unknown [id number] 2.16.840.1.372852.3.579.2. 1259 1942 Unknown [id number] 2.16.840.1.030010.3.579.2. 1259 1942 Unknown [id number] 2.16.840.1.694316.3.579.2. 1244 1942 Unknown [id number] 2.16.840.1.893303.3.579.2. 1244 Medicare Medicare Outpatient [id number] Self-pay Self Pay [id number] Unknown [id number] Unknown [employer] [place] [id number] Social History Date Type Detail Facility Start: 02-14-2023 End: 09-04-2024 Sex Assigned At [facility] Start: 02-03-2022 End: 08-08-2023 Tobacco smoking status NHIS Ex-smoker (finding) [facility] Start: 1940 Sex Assigned At Female F [facility] Start: 02-14-2023 End: 09-04-2024 Former smoker Former smoker [facility] Comment on above: nicotine lozenges; Start: 03-12-2023 Tobacco smoking stat us NHIS Smoker (finding) [facility] History of tobacco use Cigarette Smoker [facility] Start: 07-05-2023 End: 09-04-2024 Alcohol intake Ex-drinker (finding) [facility] Within the last year , have [...] Not at all [facility] (I/We) worried [facility] (my/our) food would run out before (I/we) got money to buy more. Never true [facility] Start: 02-14-2023 Tobacco Comment Last smoked : 1-5 years [facility] Start: 01-18-2023 Alcohol Comment Caffeine intak e: 3 cups decaf per day [facility] Start: 1940 Sex Assigned At Not on file N [facility] Start: 08-08-2023 End: 08-31-2023 Tobacco use and exposure Smokeless tobacco non-user [facility] Work Phone: Start: 08-31-2023 End: 11-11-2024 Alcohol intake Lifetime non-drinker (finding) [facility] Work Phone: Start: 08-21-2023 End: 11-11-2024 Exposure to SARS-CoV-2 (event) Not sure [facility] Medical Equipment Procedure Code Equipment Code Equipment Original Text Equipment Identifier Dates [id number] FDA Start: 01-20-2022 Drug-eluting cor onary artery stent, [id number]-kuxcsdhypncrs-ctepg er-coated ()[id number] FDA Start: 01-20-2022 Drug-eluting cor onary artery stent, tpu-jksmicrgovlqo-azvpm er-coated ()[id number]( [id number] FDA Start: 01-20-2022 Drug-eluting cor onary artery stent, fso-nocaifmxqruwh-yaxsn er-coated ()[id number]( [id number] FDA Start: 01-20-2022 Drug-eluting cor onary artery stent, sij-ikecrvaamjlah-qxphn er-coated ()[id number] FDA Start: 02-03-2022 [id number] FDA Start: 01-20-2022 [id number] FDA Start: 01-20-2022 [id number] FDA Start: 01-20-2022 [id number] FDA Start: 01-20-2022 [id number] FDA Start: 01-20-2022 [id number] FDA Start: 01-20-2022 Goals Date Patient Goal Desired Activity /State Functional Status Date Assessment Result Facility 03-14-2023 Functional status Patient at Baseline [facility] Work Phone: 03-07-2023 Functional status Patient at Baseline [facility] Work Phone: 03-05-2023 Functional status Disability Sta tus Patient at Baseline [facility] Work Phone: 02-15-2022 PHQ-9 [id number] Moderate (10-14) [facility] 250 DO Work Phone: 02-03-2022 Functional status Patient at Baseline [facility] Work Phone: 01-21-2022 Functional status Patient at Baseline [facility] Work Phone: Mental Status Date Assessment Result Facility 03-14-2023 Cognitive function Cognitive Sta tus Patient at Baseline [facility] Work Phone: 03-07-2023 Cognitive function Cognitive Sta tus Patient at Baseline [facility] Work Phone: 02-03-2022 Cognitive function Cognitive Sta tus Patient at Baseline [facility] Work Phone: 01-21-2022 Cognitive function Cognitive Sta tus Patient at Baseline [facility] Work Phone: Clinical Notes 08-24-2021 to 11-11-2024 Karli Dougherty MD - 11/11/2024 10:40 AM EDTPatient InstructionsAttachmentsPriyanka Puentes MD - 09/04/2024 2:30 PM Ramonita Puentes MD - 08/01/2024 10:30 AM ESTPatient Instructions Note Date & Type Note Facility 11-11-2024 History of Presen t illness Narrative Chief Complaint Patient presents with Follow-up Follow up for Coronary Artery Disease, denies cardiac c/o at this time. Subjective Steven Harding is a 84 y.o. female HPI Patient is here for follow-up and management for coronary artery disease with prior PCI to the right coronary artery, hypertension, hyperlipidemia. Since last time I saw her she denies any change in cardiac status or symptoms. She is marcelo functional class I. She denies chest pain, palpitation, lightheadedness, dizziness or syncope. Her recent lab work noted and reviewed with her. Assessment 1. Coronary artery disease with prior presentation myocardial infarction and PCI to the RCA and left circumflex doing well with no recurrence of her symptoms. She described functional class I with no angina 2. Hypertension controlled. With amlodipine and metoprolol. She described intolerance or ineffectiveness of PEDRITO and ARB into her 3. Hyperlipidemia controlled LDL is 52 4. Mildly overweight BMI 28 5. Previous complaint of shortness of breath resolved Plan 1. The patient was advised to continue present medical therapy unchanged. We discussed treatment with PEDRITO and ARB but the patient declined considering she did not have good response to it in the past and her blood pressure did not respond and she is reluctant to change her medication 2. I reviewed her recent lab work with her 3. I we will see her back in the office in 8 months and follow-up Review of Systems Neurological: Positive for tremors. All other systems reviewed and are negative. Vitals: 11/11/24 1056 BP: 136/82 BP Location: Left arm Patient Position: Sitting Pulse: 64 Weight: 66.1 kg (145 lb 12.8 oz) Height: 1.524 m (5') Objective Physical Exam Constitutional: Appearance: Normal appearance. [...] Minocycline, and Ticagrelor Current Medications Current Outpatient Medications Medication Instructions albuterol (Ventolin HFA) 90 mcg/actuation inhaler As needed amLODIPine (NORVASC) 5 mg, oral, Daily aspirin 81 mg EC tablet 1 tablet, Daily atorvastatin (LIPITOR) 80 mg, oral, Nightly clopidogrel (PLAVIX) 75 mg, oral, Daily cranberry 500 mg capsule 1 capsule, Daily levothyroxine (SYNTHROID, LEVOXYL) 112 mcg, Daily magnesium oxide 500 mg magnesium tablet 1 tablet, Daily metFORMIN (GLUCOPHAGE) 850 mg, 2 times daily (morning and late afternoon) metoprolol tartrate (LOPRESSOR) 25 mg, oral, 2 times daily nitroglycerin (Nitrostat) 0.4 mg SL tablet DISSOLVE 1 TABLET UNDER THE TONGUE NEEDED FOR CHEST PAIN- MAY REPEAT EVERY 5 MINUTES IF NEEDED ( MAX 3 DOSES.- IF NO RELIEF CALL 911) oxybutynin (Ditropan) 5 mg tablet 1 tablet, 2 times daily potassium citrate 99 mg capsule 1 Capful, Daily vitamin B complex tablet 1 tablet, Daily RT Assessment/Plan 1. Coronary artery disease involving [place] coronary artery of [place] heart without angina pectoris Follow Up In Cardiology Follow Up In Cardiology 2. Status post percutaneous transluminal coronary angioplasty 3. PAD (peripheral artery disease) 4. Mixed hyperlipidemia 5. Essential (primary) hypertension amLODIPine (Norvasc) 5 mg tablet 6. Dyspnea on exertion 7. BMI 28.0-28.9,adult 8. Former smoker Scribe Attestation By signing my name below, I, Murray Becker LPN attest that this documentation has been [...] discussion and plan. documented in this encounter [facility] Work Phone: 11-11-2024 Instructions Edna Almonte LPN - 11/11/2024 10:40 AM EDT Please bring all medicines, vitamins, and herbal supplements with you when you come to the office. Prescriptions will not be filled unless you are compliant with your follow up appointments or have a follow up appointment scheduled as per instruction of your physician. Refills should be requested at the time of your visit. BMI was above normal measurement. Current weight: 66.1 kg (145 lb 12.8 oz) Weight change since last visit (-) denotes wt loss -9.2 lbs Weight loss needed to achieve BMI 25: 18.1 Lbs Weight loss needed to achieve BMI 30: -7.5 Lbs Provided instructions on dietary changes. The following attachments cannot be sent through Care Everywhere.Heart Healthy Diet (Surinamese)documented in this encounter [facility] Work Phone: 09-04-2024 History of Presen t illness Narrative Images from the original note were not included. Steven Harding is a 84 y.o. female presents with chief complaint of Annual Exam HPI: I have reviewed and reconciled the history and medication list with the patient today. CURRENT PCP/CARE TEAM: Patient Care Team: Priyanka Puentes MD as PCP - General (Family Medicine) Priyanka Puentes MD as PCP - ACO Reach Karli Dougherty MD as Referring Physician (Cardiology) Over the past 2 weeks, how often have you been bothered by any of the following problems? Little interest or pleasure in doing things: Not at all Feeling down, depressed, or hopeless: Not at all Patient Health Questionnaire-2 Score: 0 Over the past 2 weeks, how often have you been bothered by any of the following problems? Trouble falling or staying asleep, or sleeping too much: Not at all Feeling tired or having little energy: Not at all Poor appetite or overeating: Not at all Feeling bad about yourself - or that you are a failure or have let yourself or your family down: Not at all Trouble concentrating on things, such as reading the newspaper or watching television: Not at all Moving or speaking so slowly that other people could have noticed? Or the opposite - being so fidgety or restless that you have been moving around a lot more than usual.: Not at all Thoughts that you would be better off or hurting yourself in some way: Not at all Patient Health Questionnaire-9 Score: 0 Health Risk Assessment Form Do you need help eating, bathing, using the toilet, dressing, or getting around your home?: No Can you prepare your own meals?: Yes Can you do your own housework without help?: Yes Can you shop for groceries or clothes without help?: Yes Do you exercise for about 20 minutes 3 or more days a week?: Yes How confident are you that you can control and manage most of your health problems?: Very confident Can you mange your money, credit cards and accounts, pay bills and taxes?: Yes Vision Screening: Yes, patient sees regular sand plant attendant/road crossing guard Hearing Screening: Yes, uses hearing aids Cognitive Screening Self Assessment: No concerns rasied by family members, friends, or caretakers Three Word Registration: Banana, [place], Chair Clock Drawing: Normal Clock - 2 Three Word Recall: All 3 words correct - 3 Total Score (0-5 Points): 5 Pain Assessment Pain Score: 5 - Moderate pain HISTORIES: PAST MEDICAL HISTORY: Past Medical History: Diagnosis Date AAA (abdominal aortic aneurysm) ([facility]) Abnormal level of hormones in specimens from other organs, systems and tissues Aneurysm ([facility]) 2008 abdominal aortic Arthritis Asthma ([facility]) Atherosclerosis Basal cell carcinoma (BCC) of helix of right ear Cataract 2013 Chronic kidney disease, stage 3 (HCC) ([facility]) Endocarditis valve unspecified, unspecified cause Essential hypertension ([facility]) Euthyroid sick syndrome GERD (gastroesophageal reflux disease) Hyperlipidemia ([facility]) Hypothyroidism ([facility]) Iliac vein stenosis, right Impaired glucose tolerance test oral Morbid obesity due to excess calories ([facility]) NSTEMI (non-ST elevated myocardial infarction) ([facility]) 01/10/2024 Obesity Obesity (BMI 30.0-34.9) Osteopenia Other fatigue Post menopausal syndrome PVD (peripheral vascular disease) ([facility]) right leg, Iliac stent Rheumatic heart disease, unspecified Vitamin D deficiency, unspecified SURGICAL HISTORY: Past Surgical History: Procedure Laterality Date ANGIOPLASTY with stent APPENDECTOMY CYST REMOVAL Pilonidal cyst removed ECHO 2014 Procedure:echo EF 70;Disease:Normal HEMORRHOIDECTOMY repair cystocele & rectocele HYSTERECTOMY 1972 & RSO IR STENT PLACEMENT Procedure:Stent distal aorta;Disease:Aneurysm, abdominal aortic MULTIPLE TOOTH EXTRACTIONS 10/2017 right bottom tooth extraction OTHER SURGICAL HISTORY 2012 Procedure:Bilateral Implants;Disease:Cataracts NV LASER SURGERY OF EYE Left 03/22/2016 [place] LASER SURGERY OF EYE Right 03/29/2016 ROOT CANAL 11/2020 Left upper TONSILLECTOMY TUMOR REMOVAL 2007 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 SOCIAL HISTORY: Social History Tobacco Use Smoking status: Former Types: Cigarettes Smokeless tobacco: Never Tobacco comments: Last smoked : 1-5 years Vaping Use Vaping status: Never Used Substance Use Topics Alcohol use: Not Currently Comment: Caffeine intake: 3 cups decaf per day Drug use: Never Depression: Not at risk (09/04/2024) PHQ-2 PHQ-2 Score: 0 FAMILY HISTORY: Family History Problem Relation Name Age of Onset Heart disease Mother Heart disease Father Melanoma Neg Hx MEDICATIONS: Current Outpatient Medications Medication Instructions albuterol HFA 90 mcg/act inhaler 2 puffs, Inhalation, Every 4 hours PRN albuterol 2.5 mg, Nebulization, Every 6 hours PRN amLODIPine (NORVASC) 5 mg, Oral, Daily RT aspirin EC 81 mg, Every 24 hours atorvastatin (LIPITOR) 80 mg, Every 24 hours B Complex Vitamins (vitamin B complex) tablet 1 tablet, Daily clopidogrel (PLAVIX) 75 mg, Every 24 hours CRANBERRY CONCENTRATE PO 1 tablet, Daily levothyroxine (SYNTHROID) 112 mcg, Oral, Daily before breakfast magnesium oxide (MAG-OX) 400 mg, Daily RT metFORMIN (GLUCOPHAGE) 850 mg, Oral, 2 times daily with meals metoprolol tartrate (LOPRESSOR) 12.5 mg, Oral, Every 12 hours naproxen sodium (ALEVE) 220 mg, 2 times daily PRN nitroglycerin (NITROSTAT) 0.4 mg oxybutynin (DITROPAN) 5 mg, Oral, 2 times daily potassium chloride CR (K-Tab) 20 MEQ ER tablet 20 mEq, Daily Pramoxine HCl 1 % cream PRN ALLERGIES: Allergies Allergen Reactions Calcium Citrate Other Reaction(s): digestive upset Cephalexin Hives Ciprofloxacin Hcl Hives Clindamycin Diarrhea Codeine Unknown Diphenhydramine Other Reaction(s): loss of muscle control Erythromycin Base Hives Minocycline Diarrhea PHYSICAL EXAM: Visit Vitals Pulse 76 Ht 5' 2 Wt 147 lb SpO2 94% BMI 26.89 kg/m OB Status Postmenopausal Smoking Status Former BSA 1.71 m BP Readings from Last 3 Encounters: 01/22/24 126/70 08/30/23 124/78 08/08/23 122/72 Wt Readings from Last 3 Encounters: 09/04/24 147 lb 08/01/24 148 lb 05/14/24 148 lb Physical Exam The patient is pleasant and in no acute distress The patient has good eye contact and clear speech ASSESSMENT AND PLAN: 1. Encounter for Medicare annual wellness exam (Primary) The patient is here for their Annual Medicare Wellness visit. Demographics were updated. Self-assessment was completed and reviewed. Past medical, family, and social history were updated. The medication list updated and reviewed by the doctor. A list of other current medical providers is established and updated. Time was spent discussing health maintenance issues, ordering testing as appropriate, and a schedule was reviewed regarding recommended screening. We discussed safety issues and fall risk. Depression screening was completed and addressed as appropriate. Fall screening was completed and addressed. Cognitive function was assessed by direct observation, cognitive screening as indicated, and assessment of ability to perform ADL's. The BMI and discussed. Major risk factors for chronic disease including family history were discussed. An after visit summary is made available to the patient 2. Advance directive discussed with patient No changes to advanced directives 3. Encounter for screening for other disorder Clinically insignificant depression screening 4. Screening for alcohol problem Negative alcohol screening 5. Chronic kidney disease, stage 3a (HCC) (CMS/HCC) Chronic problem, stable, monitor longitudinally. 6. Type 2 diabetes mellitus with diabetic autonomic neuropathy, without long-term current use of insulin (CMS/HCC) Chronic problem, stable, monitor longitudinally. Updated ICD 10 code 7. Simple chronic bronchitis (CMS/HCC) Chronic problem, stable, monitor longitudinally. 8. Postinflammatory pulmonary fibrosis (CMS/HCC) Chronic problem, stable, monitor longitudinally. 9. Lung granuloma (CMS/HCC) Chronic problem, stable, monitor longitudinally. 10. Centrilobular emphysema (CMS/HCC) Chronic problem, stable, monitor longitudinally. Updated ICD 10 code 11. Pulmonary hypertension (CMS/HCC) Chronic problem, stable, monitor longitudinally. No signs of right heart failure 12. Peripheral vascular disease (CMS/HCC) Chronic problem, stable, monitor longitudinally. Specifically no claudication 13. Infrarenal abdominal aortic aneurysm, without rupture (CMS/HCC) Chronic problem, stable, monitor longitudinally. We did discuss this and this is a relatively new diagnosis found on routine CT scan. We discussed its size and that we should ultimately monitor it. She states she has too many things right now would like to do this later in the year. Since it does not appear to be a critical size I see no problem with this. 14. Benign essential hypertension (CMS/HCC) Chronic problem, stable, monitor longitudinally. To goal 15. Stage 3a chronic kidney disease (HCC) (CMS/HCC) Chronic problem, stable, monitor longitudinally. 16. Hypertensive nephropathy (CMS/HCC) Chronic problem, stable, monitor longitudinally. 17. Acquired hypothyroidism (CMS/HCC) Chronic problem, stable, monitor longitudinally. 18. Coronary artery disease Chronic problem, stable, monitor longitudinally. Comanaged with Cardiology documented in this encounter [facility] 08-01-2024 History of Presen t illness Narrative [...] I discussed with the patient and/or their product support representative, their fatigue issues. We discussed how [...] We discussed and she will try the hwem-eyb-jqkscbs CeraVe product. If that does not work [...] but increased activity. documented in this encounter [facility] 06-11-2024 Telephone encounter Note Rx sent [facility] 06-11-2024 Miscellaneous Notes Rx sent Steven called, She is going today for her xray on her hip. She states that she will be out of her gabapentin 100 mg today. She is requesting a refill to help with her pain. She stated tht nothing is scheduled yet on getting it fixed. She uses [facility] [place]. documented in this encounter [facility] 06-11-2024 Telephone encounter Note Steven called, She is going today for her xray on her hip. She states that she will be out of her gabapentin 100 mg today. She is requesting a refill to help with her pain. She stated tht nothing is scheduled yet on getting it fixed. [facility] uses [facility] [place]. [facility] 05-28-2024 Telephone encounter Note Called tb sOMEHOW THEY DO NOT HAVE THIS ORDER AND THERE WAS NO rx DONE. REPRINTED EXSISTING ORDER AND lm ON Steven'S PHONE THAT IT WOULD BE FAXED OVER THERE. [facility] 05-28-2024 Miscellaneous Notes Called tb sOMEHOW THEY DO NOT HAVE THIS ORDER AND THERE WAS NO rx DONE. REPRINTED EXSISTING ORDER AND lm ON Steven'S PHONE THAT IT WOULD BE FAXED OVER THERE. Called and talked with her. Pain relief with 2 gabapentin 100mg. Reviewed lumbar X ray with her, after preview no hip x ray. Will contact [facility] tomorrow and try to get results. Steven left a message on the nurse line. She states she has not heard back on her hip and back xray and that she is still in a lot of pain. She is requesting a call back. documented in this encounter [facility] 05-27-2024 Telephone encounter Note Called and talked with her. Pain relief with 2 gabapentin 100mg. Reviewed lumbar X ray with her, after preview no hip x ray. Will contact [facility] tomorrow and try to get results. [facility] 05-27-2024 Telephone encounter Note Steven left a message on the nurse line. She states she has not heard back on her hip and back xray and that she is still in a lot of pain. She is requesting a call back. [facility] 05-14-2024 History of Presen t illness [...] is not improving. documented in this encounter [facility] 05-08-2024 History of Presen t illness Narrative Subjective Setven Harding is a 84 y.o. female Chief [...] coronary angioplasty 2. Coronary artery disease involving [place] coronary artery of [place] heart without angina pectoris Follow Up In Cardiology Follow Up In Cardiology 3. Mixed hyperlipidemia Alanine Aminotransferase Aspartate Aminotransferase Lipid Panel Alanine Aminotransferase Aspartate Aminotransferase Lipid Panel 4. Hypertension, benign Comprehensive Metabolic Panel Comprehensive Metabolic Panel 5. Body mass index (BMI) 29.0-29.9, adult 6. Dyspnea on exertion 7. Former smoker Scribe Attestation By signing my name below, I, Katharina Krasue LPN, Marcoibe attest that this documentation has [...] discussion and plan. documented in this encounter [facility] Work Phone: 05-08-2024 Instructions Katharina Seay LPN [...] instructions on exercise. documented in this encounter [facility] Work Phone: 08-31-2023 History of Presen t [...] 3 Assessment/Plan 1. Coronary artery disease involving [place] coronary artery of [place] heart without angina pectoris Follow Up In Cardiology 2. Status post percutaneous transluminal coronary angioplasty 3. Mixed hyperlipidemia atorvastatin (Lipitor) 80 mg tablet 4. Hypertension, benign 5. Dyspnea on exertion 6. BMI 27.0-27.9,adult 7. Former smoker Scribe Attestation By signing my name below, Ruba Maradiaga LPN, Scribe attest that this documentation [...] discussion and plan. documented in this encounter [facility] Work Phone: 08-31-2023 Instructions Ruba Chowdhury LPN [...] instructions on exercise. documented in this encounter [facility] Work Phone: 03-13-2023 Progress note Note Date/Time March 13, 2023 4:47pm [facility] [address] [place] [address] Hospitalist Progress Note Signed Patient: Steven Harding MR#: [id number] : 1940 Acct:[id number] Age/Sex: 83 / F Adm Date: 3 Loc: 4P Room: [address] [place] [address] Type: ADM INOo Attending Dr: Rufus Ricks [...] Hyponatremia of 128. TSH was suppressed on [place] Thyroid and has been checked twice with [...] signed by Rufus Ricks DO> 03/13/[address] [facility] Work Phone: 1(377) 848-899810-01-2023 History and physical note Author Sima Hdz [facility] March 12, 2023 7:49pm Note Date/Time March 12, 2023 7: 50pm [facility] [address] [place] [address] Hospitalist H&P Signed Patient: Steven Harding MR#: [id number] : 1940 Acct:[id number] Age/Sex: 83 / F Adm Date: 3 Loc: Room: [address] [place] [address] Type: ADM IN Attending Dr: Sima Hdz [...] noted below or in HPI [facility] Medical History Aneurysm Aortic. Being monitored. Per pt found at [facility] during last visit there in January [...] Confirmed 03/05/23] thyroid (pork) 60 mg tablet (FINISHED HARDWARE ERECTOR Thyroid) 60 mg PO BID 01/18/22 [History [...] % (Auto) 13.2 % (.) 03/12/23 14:45 [place] % (Auto) 5.1 % (.) 03/12/23 14:45 Eos % (Auto) 2.0 % (.) 03/12/23 14:45 Baso % (Auto) 0.4 % (.) 03/12/23 14:45 Nucleat RBC Rel Count 0.0 /100 WBC (0-0.5) 03/12/23 14:45 Neut # (Auto) 7.0 x10E3/uL (1.8-7.7) 03/12/23 14:45 Lymph # (Auto) 1.2 x10E3/uL (1.00-4.8) 03/12/23 14:45 [place] # (Auto) 0.5 x10E3/uL (0.0-0.8) 03/12/23 14:45 [...] pH 7.5 (5.0-9.0) 03/12/23 15:55 Ur Specific [place] 1.010 (1.001-1.030) 03/12/23 15:55 Urine Protein Negative [...] Hyponatremia of 128. TSH was suppressed on [place] Thyroid and has been checked twice with [...] by Sima Hdz MD> 03/12/231948 [facility] Work Phone: 1(316) 818-100609-26-2023 Discharge summary Author Chuck Chacon [facility] March 07, 2023 9:30am Note Date/Time March 07, 2023 9:30am [facility] [address] [place] [address] Discharge Summary Signed Patient: Steven Harding MR#: [id number] : 1940 Acct:[id number] Age/Sex: 83 / F Adm Date: 3 Loc: Room: [address] [place] [address]: Chuck Chacon MD Copies to: [...] been attempted on scopolamine patch, and her assurance senior had decreased herlosartan dose. She presented again [...] follow-up with her primary care physician and assurance senior as an outpatient for further management. She may be reintroduced to some of her cardioprotective antihypertensives in the future if deemed reasonable by her assurance senior and primary care physician. 35 minutes spent [...] TABLET BY MOUTH TWICE DAILY thyroid (pork) [FINISHED HARDWARE ERECTOR Thyroid] 60 mg tablet 60 mg PO [...] <Electronically signed by Chuck Chacon MD> 03/07/[address] [facility] Work Phone: 1(796) 578-226109-25-2023 Progress note Author Chuck Chacon [facility] March 06, 2023 1:51pm Note Date/Time March 06, 2023 1:38pm [facility] [address] [place] [address] Hospitalist Progress Note Signed Patient: Steven Harding MR#: [id number] : 1940 Acct:[id number] Age/Sex: 83 / F Adm Date: 3 Loc: Room: [address] [place] [address] Type: ADM INOo Attending Dr: Chuck Chacon [...] 1,000 Ml IV 03/07/23 07:49 60 mls/hr .[id number] YVROSE Administration Insulin Aspart 0 units 03/06/23 08:00 03/06/23 11:52 Insulin Aspart 300 Units/3 Ml Insuln.Pen SUBCUT 03/05/24 07:59 Not Given TID.WM.HS [facility] Protocol Metoprolol Tartrate 25 mg 03/06/23 [...] be improved from previous assessment during patient's MA -We will trend orthostatic vital signs -Monitor on telemetry for at least 24 hours -Continue metoprolol, continue to hold losartan, spironolactone and nifedipine for now -May consider restarting low doses in the a.m.-patient has lost close to 60 pounds since her MA-likely that BP medications are more potent -PT/OT [...] signed by Chuck Chacon MD> 03/06/[address] [facility] Work Phone: 1([phone]) 511-474309-25-2023 History and physical note Author Jemal Jones [facility] March 05, 2023 11:19pm Note Date/Time March 05, 2023 10:21pm [facility] [address] [place] [address] Hospitalist H&P Signed Patient: Steven Harding MR#: [id number] : 1940 Acct:[id number] Age/Sex: 83 / F Adm Date: 3 Loc: Room: [address] [place] [address] Type: ADM INOo Attending Dr: Jemal Jones [...] current visual changes, headache. Noted that her assurance senior has recently decreased her losartan due to [...] mentioned elsewhere in the documentation [facility] Medical History Aneurysm Aortic. Being monitored. Per pt found at [facility] during last visit there in January [...] Confirmed 03/05/23] thyroid (pork) 60 mg tablet (FINISHED HARDWARE ERECTOR Thyroid) 60 mg PO BID 01/18/22 [History [...] % (Auto) 14.7 % (.) 03/05/23 18:07 [place] % (Auto) 5.4 % (.) 03/05/23 18:07 Eos % (Auto) 2.8 % (.) 03/05/23 18:07 Baso % (Auto) 0.5 % (.) 03/05/23 18:07 Nucleat RBC Rel Count 0.1 /100 WBC (0-0.5) 03/05/23 18:07 Neut # (Auto) 8.7 x10E3/uL (1.8-7.7) H 03/05/23 18:07 Lymph # (Auto) 1.7 x10E3/uL (1.00-4.8) 03/05/23 18:07 [place] # (Auto) 0.6 x10E3/uL (0.0-0.8) 03/05/23 18:07 [...] 05 Signed By: <Electronically signed by Jemal Joens MD> 03/05/23 1933 [facility] Work Phone: 1(373) 210-402108-25-2022 [facility] Progress note Author Wiley Beal [facility] January 20, 2022 1:31pm Note Date/Time January 20, 2022 1: 31pm [facility] [address] [place] [address] Hospitalist Progress Note Signed Patient: Steven Harding MR#: [id number] : 1940 Acct:[id number] Age/Sex: 81 / F Adm Date: 2 Loc: Room: [address] [place] [address] Type: ADM IN Attending Dr: Wiley Beal [...] of care and confirmed it with the resident/student/FINISHED HARDWARE ERECTOR. Patient was seen and examined at bedside [...] <Electronically signed by Wiley Beal MD> 01/20/[address] [place] [address] Ctr Work Phone: 1(595) 217-668008-11-[address] [facility]08-10-[address] [facility]08-10-2022 Progress note Author Wiley Beal [facility] January 19, 2022 1:35pm Note Date/Time January 19, 2022 1: 35pm [facility] [address] [place] [address] Hospitalist Progress Note Signed Patient: Steven Harding MR#: [id number] : 1940 Acct:[id number] Age/Sex: 81 / F Adm Date: 2 Loc: Room: [address] [place] [address] Type: ADM IN Attending Dr: Wiley Beal [...] Vial SUBCUT 01/19/23 08:59 Not Given Q12HR VYROSE Dextrose/Sodium Chloride 1,000 mls @ 100 mls/hr 01/19/22 11:45 01/19/22 12:33 5 % Dextrose-0.45 % Nacl IV 01/19/23 11:44 100 mls/hr .Q10H YVROSE Administration Insulin Aspart 0 units 01/19/22 08:00 01/19/22 12:35 Insulin Aspart 300 Units/3 Ml Insuln.Pen SUBCUT 01/19/23 07:59 Not Given TID.[facility] Protocol Losartan Potassium 100 mg 01/18/22 [...] pain. [facility] pain is much better CXR [facility] ED reported as no acute cardiopulmonary abnormality EKG [facility] ED (i personally reviewed it) shows NSR@90 bpm no significant acute changes nitro patch(started in [place] ED) Morphine prn Telemetry Antiplatelet: Aspirin Anticoagulation: Heparin Drip (started in [place] ED) Start Beta sarbjit therapy Serial EKGs [...] <Electronically signed by Wiley Beal MD> 01/19/[address] [facility] Work Phone: 1(640) 693-918608-10-2022 Consult note Author aKrli Dougherty [facility] January 19, 2022 12:38pm Note Date/Time January 19, 2022 12 :25pm [facility] [address] [place] [address] Cardiology Consult Note Signed with Addenda Patient: Steven Harding MR#: [id number] : 1940 Acct:[id number] Age/Sex: 81 / F Adm Date: 2 Loc: Room: [address] [place] [address] Type: ADM IN Attending Dr: Wiley Beal [...] Confirmed 01/18/22] thyroid (pork) 60 mg tablet (FINISHED HARDWARE ERECTOR Thyroid) 60 mg PO DAILY 01/18/22 [History [...] x10E3/uL Lymph # (Auto) 1.5 (1.00-4.8) x10E3/uL [place] # (Auto) 0.4 (0.0-0.8) x10E3/uL Eos # [...] <Electronically signed by MD Karli Dougherty> 01/19/22 5621 [facility] Work Phone: 1(209) 102-198408-10-2022 History and physical note Author Justa Westfall [facility] January 19, 2022 7:35am Note Date/Time January 18, 2022 11: 29pm [facility] [address] [place] [address] Hospitalist H&P Signed Patient: Steven Harding MR#: [id number] : 1940 Acct:[id number] Age/Sex: 81 / F Adm Date: 2 Loc: Room: [address] [place] [address] Type: ADM IN Attending Dr: Justa Westfall MD Copies to: MD Justa Santos MD~ HPI DATE OF EXAMINATION: 01/18/22 HISTORY OF PRESENT ILLNESS: This is a pleasant 81F with PMH of HTN, PAD(s/p stenting), Prediabetes, Hypothyroidism who p/w chest pain to the [facility] and transferred for the evaluation [...] Confirmed 01/18/22] thyroid (pork) 60 mg tablet (FINISHED HARDWARE ERECTOR Thyroid) 60 mg PO DAILY 01/18/22 [History [...] pain. [facility] pain is much better CXR [facility] ED reported as no acute cardiopulmonary abnormality EKG [facility] ED (i personally reviewed it) shows NSR@90 bpm no significant acute changes nitro patch(started in [place] ED) Morphine prn Telemetry Antiplatelet: Aspirin Anticoagulation: Heparin Drip (started in [place] ED) Start Beta sarbjit therapy Serial EKGs [...] bedside Documented By: Justa Westfall MD 01/18/22 0706 Signed By: <Electronically signed by Justa Westfall MD> 01/19/[address] [facility] Work Phone: 1([phone]) 883-585007-23-2022 Evaluation note* Encounter Date Diagnosis Assessment Notes [...] worsening symptoms or concerns. You may use [id number]-[id number] lidocaine gel to the rash for comfort. Patient reports her sand plant attendant is Dr. Lenz, she will follow-up with them on Monday. crobo Other 03-15-2022 History of Present illness Narrative* [...] and importance of staying active and exercise [facility] 250 DO Work Phone: Discharge summary Author Wiley Beal [facility] January 22, 2022 4:43pm Note Date/Time January 21, 2022 1: 46pm [facility] [address] [place] [address] Discharge Summary Signed Patient: Steven Harding MR#: [id number] : 1940 Acct:[id number] Age/Sex: 81 / F Adm Date: 2 Loc: Room: [address] [place] [address]: Wiley Beal MD Copies to: [...] was anticoagulated with heparin, taken to the [facility]. On January 19, she was found to [...] % (Auto) 74.5, Lymph % (Auto) 14.2, [place] % (Auto) 6.7, Eos % (Auto) 4.2, Baso % (Auto) 0.4, Neut # (Auto) 6.3, Lymph # (Auto) 1.2, [place] # (Auto) 0.6, Eos# (Auto) 0.4, Baso [...] You are scheduled for STAGED ANGIOPLASTY at [facility] on 02/03/2022 at 1:00pm with Dr Hooks; please check in at 11:00am- follow instructions You are scheduled for COVID testing at [facility] on 02/01/2022 at 10:00am for upcoming [...] doctor or pharmacist, without first calling the assurance senior who implanted the stent. If you require [...] weight lifting, stair steppers, etc. until the assurance senior approves these activities. Check with the assurance senior on your first follow-up visit. CALL YOUR PHYSICIAN at [phone]: -If bleeding should occur from the catheter insertion site- apply pressure to the site then immediately call us. -Report any fever, redness, drainage, increased swelling, or firmness at the catheter insertion site. Some bruising or slight swelling may be present at thetime of discharge. -Should arm or leg become cold, numb, white, or blue, contact the assurance senior immediately. -IF you should experience episodes of [...] is recommended. Please call Central Scheduling at [phone] to schedule your appointment.] The attending assurance senior or [facility] nurse clinician should provide you with specific instructions regarding activity, diet, medications, and further follow up for you. Follow the medication instructions provided on your discharge. If the dosages and instructions on this sheet differ from the dosage and instructions on the bottle, follow the instructions on the bottle. [facility] is not responsible for incorrect prescription information [...] tablet 100 mg PO DAILY thyroid (pork) [FINISHED HARDWARE ERECTOR Thyroid] 60 mg tablet 60 mg PO DAILY Label Comments: TAKE 1 TABLET BY MOUTH TWICE DAILY ON AN EMPTY STOMACH Other Ambulatory Orders: Basic Metabolic Panel (Routine) Timeframe: 20220125 Location: Determined by Patient Ordered By: Diony Hooks Follow Up: [facility] [Outside] - 01/27/22 4:00 pm Documented By: Wiley Beal MD 01/21/22 1342 Signed By: <Electronically signed by Wiley Beal MD> 01/22/[address] [facility] Work Phone: Discharge summary Author Rufus Ricks [facility] March 14, 2023 3:31pm Note Date/Time March 14, 2023 3: 31pm [facility] [address] [place] [address] Discharge Summary Signed Patient: Steven Harding MR#: [id number] : 1940 Acct:[id number] Age/Sex: 83 / F Adm Date: 3 Loc: 4P Room: 5A9998-[address]: Rufus Ricks DO Copies to: [...] DAILY Qty: 30 0RF Held thyroid (pork) [FINISHED HARDWARE ERECTOR Thyroid] 60 mg tablet 60 mg PO [...] signed by Rufus Ricks DO> 03/14/23 1531 [facility] Work Phone: evaluation note* Diagnosis Onset Date Resolution Status ACS (acute coronary syndrome) acute Hypertension acute Hypothyroidism acute NSTEMI (non-ST elevated myocardial infarction) acute Peripheral vascular disease acute Prediabetes acute [facility] Work Phone: Evaluation note* Diagnosis Onset Date Resolution Status Dizziness acute [facility] Work Phone: evaluation note* Diagnosis Onset Date Resolution Status Acute hyponatremia acute Dizziness acute Pre-syncope acute [facility] Work Phone: Evaluation note* Diagnosis Onset Date Resolution Status Acute hyponatremia acute Dizziness acute Pre-syncope acute Acute hyponatremia acute CAD (coronary artery disease) acute Hypertensive urgency acute Hypothyroidism acute [facility] Work Phone: evaluation note* Diagnosis Coronary artery disease involving [place] coronary artery of [place] heart without angina pectoris- Primary Status post percutaneous transluminal coronary angioplasty Postsurgical percutaneous transluminal coronary angioplasty status Mixed hyperlipidemia Hypertension, benign Essential hypertension, benign Dyspnea on exertion Other dyspnea and respiratory abnormality BMI 27.0-27.9,adult Former smoker Personal history of tobacco use, presenting hazards to health documented in this encounter [facility] Work Phone: Evaluation note* Diagnosis Status post percutaneous transluminal coronary angioplasty- Primary Postsurgical percutaneous transluminal coronary angioplasty status Coronary artery disease involving [place] coronary artery of [place] heart without angina pectoris Mixed hyperlipidemia Hypertension, benign Essential hypertension, benign Body mass index (BMI) 29.0-29.9, adult Dyspnea on exertion Other dyspnea and respiratory abnormality Former smoker Personal history of tobacco use, presenting hazards to health documented in this encounter [facility] Work Phone: Evaluation note* Diagnosis Acute right-sided low back pain with right-sided sciatica Right hip pain Pain in joint, pelvic region and thigh Pain of right sacroiliac joint Overweight (BMI 25.0-29.9) Overweight documented in this encounter [facility] Diagnosis Acute right-sided low back pain with right-sided sciatica documented in this encounter [facility]* Diagnosis Benign essential hypertension (CMS/HCC) Essential hypertension, benign Hypothyroidism, unspecified type (CMS/HCC) documented in this encounter [facility]* Diagnosis Acquired hypothyroidism (CMS/HCC)- Primary Unspecified hypothyroidism Chronic fatigue Other malaise and fatigue Benign essential hypertension (CMS/HCC) Essential hypertension, benign Chronic eczema Contact dermatitis and other eczema, due to unspecified cause Polypharmacy Issue of repeat prescriptions Obesity (BMI 30.0-34.9) documented in this encounter [facility]* Diagnosis Impaired glucose tolerance Impaired glucose tolerance test documented in this encounter [facility]* Diagnosis Encounter for Medicare annual wellness exam- Primary Advance directive discussed with patient Encounter for screening for other disorder Screening for alcohol problem Screening for alcoholism Chronic kidney disease, stage 3a (HCC) (CMS/[facility]) Type 2 diabetes mellitus with diabetic autonomic neuropathy, without long-term current use of insulin (CMS/HCC) 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) Centrilobular emphysema (CMS/HCC) Pulmonary hypertension (CMS/HCC) Other chronic pulmonary heart diseases Peripheral vascular disease (CMS/HCC) Unspecified peripheral vascular disease Infrarenal abdominal aortic aneurysm, without rupture (CMS/HCC) Benign essential hypertension (CMS/HCC) Essential hypertension, benign Stage 3a chronic kidney disease (HCC) (CMS/HCC) Hypertensive nephropathy (CMS/HCC) Unspecified hypertensive kidney disease with chronic kidney disease stage I through stage IV, or unspecified Acquired hypothyroidism (CMS/HCC) Unspecified hypothyroidism Coronary artery disease involving [place] coronary artery of [place] heart without angina pectoris (CMS/HCC) documented in this encounter [facility]* Diagnosis Coronary artery disease involving [place] coronary artery of [place] heart without angina pectoris- Primary Status post percutaneous transluminal coronary angioplasty Postsurgical percutaneous transluminal coronary angioplasty status PAD (peripheral artery disease) Unspecified peripheral vascular disease Mixed hyperlipidemia Essential (primary) hypertension Unspecified essential hypertension Dyspnea on exertion Other dyspnea and respiratory abnormality BMI 28.0-28.9,adult Former smoker Personal history of tobacco use, presenting hazards to health documented in this encounter [facility] Work Phone: History and physical note Author Sima Hdz [facility] March 12, 2023 7:49pm Note Date/Time March 12, 2023 7: 50pm [facility] [address] [place] [address] Hospitalist H&P Signed Patient: Steven Harding MR#: [id number] : 1940 Acct:[id number] Age/Sex: 83 / F Adm Date: 3 Loc: Room: [address] [place] [address] Type: ADM IN Attending Dr: Sima Hdz [...] are negative unless noted below or in [facility] Medical History Aneurysm Aortic. Being monitored. Per pt found at [facility] during last visit there in January [...] Confirmed 03/05/23] thyroid (pork) 60 mg tablet (FINISHED HARDWARE ERECTOR Thyroid) 60 mg PO BID 01/18/22 [History [...] % (Auto) 13.2 % (.) 03/12/23 14:45 [place] % (Auto) 5.1 % (.) 03/12/23 14:45 Eos % (Auto) 2.0 % (.) 03/12/23 14:45 Baso % (Auto) 0.4 % (.) 03/12/23 14:45 Nucleat RBC Rel Count 0.0 /100 WBC (0-0.5) 03/12/23 14:45 Neut # (Auto) 7.0 x10E3/uL (1.8-7.7) 03/12/23 14:45 Lymph # (Auto) 1.2 x10E3/uL (1.00-4.8) 03/12/23 14:45 [place] # (Auto) 0.5 x10E3/uL (0.0-0.8) 03/12/23 14:45 [...] pH 7.5 (5.0-9.0) 03/12/23 15:55 Ur Specific [place] 1.010 (1.001-1.030) 03/12/23 15:55 Urine Protein Negative [...] Hyponatremia of 128. TSH was suppressed on [place] Thyroid and has been checked twice with [...] <Electronically signed by Sima Hdz MD> 03/12/231948 [facility] Work Phone: Hishhvj general Narrative - Reported* Type Description Date Medical History Hypertension Medical History Insulin Resistant Surgical History teeth extraction upper Surgical History skin cancer removal 2018 Hospitalization History see above crobo Other History of Present illness Narrative* The [...] the patient complains of medication side effects. [facility] 250 DO Work Phone: History of Present [...] medication regimen. She denies medication side effects. [facility] 600 DO Work Phone: History of [...] her back in 6 months and follow-up [facility] 250 DO Work Phone: [facility]: [facility] Work Phone: [facility] Work Phone: Progress note Author Wiley Beal [facility] January 21, 2022 1:42pm Note Date/Time January 21, 2022 1: 42pm [facility] [address] [place] [address] Hospitalist Progress Note Signed Patient: Steven Harding MR#: [id number] : 1940 Acct:[id number] Age/Sex: 81 / F Adm Date: 2 Loc: 4 Room: [address] [place] [address] Type: ADM IN Attending Dr: Wiley Beal [...] of care and confirmed it with the resident/student/FINISHED HARDWARE ERECTOR. Patient was seen and examined at bedside [...] Insuln.Pen SUBCUT 01/19/23 07:59 Not Given TID.WM.HS [facility] Protocol Losartan Potassium 100 mg 01/18/22 23:10 01/21/22 08:42 Losartan 50 Mg Tablet PO 01/18/23 23:09 100 mg DAILY [facility] Administration Metoprolol Tartrate 25 mg 01/18/22 23:15 01/21/22 08:42 Metoprolol Tartrate 25 Mg Tablet PO 01/18/23 23:14 25 mg BID [facility] Administration Miscellaneous Information 1 each 01/20/22 09:05 Consult To Pharmacy MISCELLANE 01/20/23 09:04 .PHACONSULT PRN ZZ.Pharmacy Consult Protocol Morphine Sulfate 1 mg 01/18/22 22:38 Morphine Sulfate 2 Mg/Ml Vial IV-PUSH Q4H PRN Pain Scale 7 - 10 Nifedipine 60 mg 01/19/22 11:30 01/21/22 08:41 Nifedipine Er.24hr 60 Mg Tab.Er.24 PO 01/19/23 11:29 60 mg DAILY [facility] Administration Nitroglycerin 0.4 mg 01/20/22 13:52 Nitroglycerin [...] signed by Wiley Beal MD> 01/21/22 1342 [facility] Work Phone: Reason for referral (narrative)* Consultation (Routine) - Authorized Specialty Diagnoses / Procedures Referred By Contac t Referred To Contact Cardiology Diagnoses Coronary artery disease involving [place] coronary artery of [place] heart without angina pectoris Procedures Follow Up In Cardiology Karli Dougherty MD [address] [place] [address] 2, [place] [address] [place] [address] Karli Dougherty MD [address] [place] [address] 2, [place] [address] [place] [address] Referral ID Status Reason Start Date Expiration Date V isits Requested Visits Authorized [id number] Authorized 08/31/2023 08/30/2024 1 1 [facility] Work Phone: Chief Complaint and Reason for [...] Documents on File Type Date Recorded Patient Steam Trap Man Expl anation Power of Ice Cutter 09/04/2023 3:30 PM 2024- 03-25 Healthcare Proxy Family History No Family History Records FoundUnknown Family Member Name Dates Details Family history of cardiac di sorder: Mother, Father(V17.49, Z82.49) Status:Active Chief Complaint * I am not doing well * STEVEN HARDING is being seen for follow-up of a hospitalization for chest pain. * Patient was recently hospitalized at [facility]. The patient was seen in Cardiology consult with subsequent cardiovascular management by [facility]. Hospitalization records have been reviewed. * Reason for Cardiology Consultation: ACS * Consulting Mold Stripper: Dr. Dougherty * Cardiovascular testing: Echo, cath with subsequent PCI * Changes to cardiovascular medical regimen at time of discharge: ASA, brilinta, lipitor lopressor, aldactone * Discharge disposition: Home * Reports admit at [facility] d/t 'kidney pain and being dehydrated'. Spironolactone [...] tomorrow * 3. Begin cardiac rehab at [facility] * 4. Lipid profile in 2 months (new statin initiation) * 5. Keep scheduled f/u in 6 weeks to reassess * 6. Obtain CT from [facility] to verify surveillance testing. * 7. RN [...] ed section and content) Reason Comments Follow-up Follow up for Pulido ry Artery Disease, denies cardiac c/o at this time. Specialty Diagnoses / Procedures Referred By Contrae t Referred To Contact Cardiology Diagnoses Coronary artery disease involving [place] coronary artery of [place] heart without angina pectoris Procedures Follow Up In Cardiology Karli Dougherty MD [address] [place] [address], [address] [address] Phone: tel: fax: Karli Dougherty MD [facility] 2, [address] [address] Phone: tel: fax: Referral ID Status Reason Start Date Expiration Date V isits Requested Visits Authorized [id number] Authorized 05/08/2024 05/08/2025 1 1 Reason Comments Follow-up 6m Reason Comments Follow-up 6-8 months Referral ID Status Reason Start Date Expiration Date V isits Requested Visits Authorized [id number] Authorized 08/31/2023 08/30/2024 1 1 Reason Comments Back Pain Hip Pain Reason Comments Med Refill Reason Comments Hypothyroidism Reason Comments Annual Exam Care Teams (unrecognized sec tion and content) [...] MD Admit Provider, Attending Provi mireille Active Credit Collections Clerk Relationship Specialty Start Date End Date Priyanka Puentes MD [address] [place] [address] (Fax) PCP - ACO Reach 11/03/22 Priyanka Puentes MD [address] [facility] [place] [address] PCP - General Family Medicine 12/21/22 Karli Dougherty MD [address] [place] [address] Referring Physician Cardiology 07/20/23 Credit Collections Clerk Relationship Specialty Start Date End Date Priyanka Puentes MD [address] [place] [phone] PCP - General 06/12/99 Credit Collections Clerk Relationship Specialty Start Date End Date Priyanka Puentes MD [address] [phone] PCP - General 06/12/99 Credit Collections Clerk Relationship Specialty Start Date End Date Priyanka Puentes MD [address] [place] [address] (Fax) PCP - ACO Reach 11/03/22 Priyanka Puentes MD [address] [address] (Fax) PCP - General Family Medicine 12/21/22 Karli Dougherty MD [address] [place] [address] Referring Physician Cardiology 07/20/23 Credit Collections Clerk Relationship Specialty Start Date End Date Priyanka Puentes MD [address] [place] [address] (Fax) PCP - ACO Reach 11/03/22 Priyanka Puentes MD [address] [address] (Fax) PCP - General Family Medicine 12/21/22 Karli Dougherty MD [address] [place] [address] Referring Physician Cardiology 07/20/23 Credit Collections Clerk Relationship Specialty Start Date End Date Priyanka Puentes MD [address] [address] (Fax) PCP - ACO Reach 11/03/22 Priyanka Puentes MD [address] [address] (Fax) PCP - General Family Medicine 12/21/22 Karli Dougherty MD [address] [place] [address] Referring Physician Cardiology 07/20/23 Credit Collections Clerk Relationship Specialty Start Date End Date Priyanka Puentes MD [address] [address] (Fax) PCP - ACO Reach 11/03/22 Priyanka Puentes MD [address] [address] (Fax) PCP - General Family Medicine 12/21/22 Karli Dougherty MD [address] [address] Referring Physician Cardiology 07/20/23 Credit Collections Clerk Relationship Specialty Start Date End Date Priyanka Puentes MD [address] [place] [address] (Fax) PCP - ACO Reach 11/03/22 Priyanka Puentes MD [address] [place] [address] (Fax) PCP - General Family Medicine 12/21/22 Karli Dougherty MD [address] [place] [address] Referring Physician Cardiology 07/20/23 Credit Collections Clerk Relationship Specialty Start Date End Date Priyanka Puentes MD [address] [place] [address] (Fax) PCP - ACO Reach 11/03/22 Priyanka Puentes MD [address] [place] [address] (Fax) PCP - General Family Medicine 12/21/22 Karli Dougherty MD [address] [place] [address] Referring Physician Cardiology 07/20/23 Credit Collections Clerk Relationship Specialty Start Date End Date Priyanka Puentes MD [address] [place] [address] (Fax) PCP - ACO Reach 11/03/22 Priyanka Puentes MD [address] [place] [address] (Fax) PCP - General Family Medicine 12/21/22 Karli Dougherty MD [address] [address] Referring Physician Cardiology 07/20/23 Credit Collections Clerk Relationship Specialty Start Date End Date Priyanka Puentes MD [address] [place] [address] (Fax) PCP - ACO Reach 11/03/22 Priyanka Puentes MD [address] [place] [address] (Fax) PCP - General Family Medicine 12/21/22 Karli Dougherty MD [address] [address] Referring Physician Cardiology 07/20/23 Credit Collections Clerk Relationship Specialty Start Date End Date Priyanka Puentes MD [address] [place] [address] (Fax) PCP - ACO Reach 11/03/22 Priyanka Puentes MD [address] [place] [address] (Fax) PCP - General Family Medicine 12/21/22 Karli Dougherty MD [address] [address] Referring Physician Cardiology 07/20/23 Credit Collections Clerk Relationship Specialty Start Date End Date Priyanka Puentes MD [address] [place] [address] (Fax) PCP - ACO Reach 11/03/22 Priyanka Puentes MD [address] [place] [address] (Fax) PCP - General Family Medicine 12/21/22 Karli Dougherty MD [address] [address] Referring Physician Cardiology 07/20/23 Credit Collections Clerk Relationship Specialty Start Date End Date Priyanka Puentes MD [address] [place] [address] (Fax) PCP - ACO Reach 11/03/22 Priyanka Puentes MD [address] [place] [address] (Fax) PCP - General Family Medicine 12/21/22 Karli Dougherty MD [address] [facility] 2, [address] [address] Referring Physician Cardiology 07/20/23 Credit Collections Clerk Relationship Specialty Start Date End Date Priyanka Puentes MD [address] [place] [address] (Fax) PCP - ACO Reach 11/03/22 Priyanka Puentes MD [address] [place] [address] (Fax) PCP - General Family Medicine 12/21/22 Karli Dougherty MD 7[address] [facility] 2, [place] [address] [place] [address] Referring Physician Cardiology 07/20/23 Credit Collections Clerk Relationship Specialty Start Date End Date Priyanka Puentes MD [address] [place] [address] PCP - General 06/12/99 Credit Collections Clerk Relationship Specialty Start Date End Date Priyanka Puentes MD [address] [place] [address] PCP - ACO Reach 11/03/22 Priyanka Puentes MD [address] [place] [address] PCP - General Family Medicine 12/21/22 Karli Dougherty MD 7[address] [facility] 2, [place] [place] [address] Referring Physician Cardiology 07/20/23 INFORMATION SOURCE (unrecogn ized section and content) DATE CREATED AUTHOR 10/18/2022 [facility] DATE CREATED AUTHOR AUTHOR'S ORGANIZ ATION 02/18/2023 [employer] DATE CREATED AUTHOR AUTHOR'S ORGANIZ ATION 03/15/2023 [facility] DATE CREATED AUTHOR AUTHOR'S ORGANIZ ATION 03/18/2023 [facility] DATE CREATED AUTHOR AUTHOR'S ORGANIZ ATION 08/26/2024 [facility] DATE CREATED AUTHOR AUTHOR'S ORGANIZ ATION 09/05/2024 [facility] DATE CREATED AUTHOR AUTHOR'S ORGANIZ ATION 11/11/2024 [facility] Ambulatory Goals (unrecognized section and content) Goals may [...] BE BASED ON THE PRIMARY CLINICAL RECORDS. [facility] [employer] [facility]. provides no warranty or guarantee of the accuracy or completeness of information in this document.
== END 2025-01-14 | disposition home or self-care (01) ==
LOC: LAB 23:59
PROVIDERS: PCP Family Medicine; Visit Provider Family Medicine
DX: E11.43 Type 2 diabetes mellitus with diabetic autonomic (poly)neuropathy (principal); N18.31 Chronic kidney disease, stage 3a; I12.9 Hypertensive chronic kidney disease with stage 1 through stage 4 chronic kidney disease, or unspecified chronic kidney disease
CPT/HCPCS: 82043; 82570